=== PATIENT | male | born 1955 | race Caucasian/White ===

== ENCOUNTER 2016-05-03 15:50 | Emergency (ER) | payer OTHER ==
[2016-05-03 16:32] VITALS: TEMP 98.7; BMI 40.1
--- NOTE | 2016-05-03 16:34 | PDOC ---
Rapid Medical Evaluation Chief Complaint: Pain, Acute Time Seen by Provider: 05/03/16 16:27 Medical Evaluation: Allergies Allergy/AdvReac Type Severity Reaction Status Date / Time Iodinated Contrast Media - Allergy Verified 12/07/15 03:21 Oral and [Iodinated Contrast Media - IV Dye] raw fruits/vegetables Allergy Intermediate Rash Uncoded 12/13/15 17:38 iv contrast dye Allergy Uncoded 12/07/15 03:21 05/03/16 16:28 sent from wound care for eval / and admission of right leg DVT per US today. Dr Quispe is waiting call. Was concerned about awakend with a jolt and worries about possible defib charge. Will obtain labs/ ekg/ cxrs - waits for eval in Main ER. VS 114/81- 95% on RA but supposed to be on 2LNC. , 05/03/16 16:34 p
[2016-05-03 17:17] LABS: MCH 30.2 pg (25.7-33.7); MCHC 32.9 g/dl (32.0-35.9); MEAN CELL VOLUME 91.8 fl (80-96); MEAN PLT VOLUME 10.3 fl (7.5-11.1); PLATELET COUNT 136 K/MM3 (134-434); RDW 16.7 % (11.9-15.9); WHITE BLOOD COUNT 7.8 K/mm3 (4.0-10.0)
[2016-05-03 17:34] LABS: INR 1.43 (0.82-1.09); PROTHROMBIN TIME (PATIENT) 15.8 SEC (9.98-11.88)
--- NOTE | 2016-05-03 17:40 | PDOC ---
History of Present Illness - General History Source: Patient, Family, Primary Care Provider Exam Limitations: No Limitations - History of Present Illness Initial Comments: 05/03/16 17:56 The patient is a 61 year old male presenting with family, with a significant past medical history of presumed lung CA, CHF, CKD, CVA, COPD, HTN, diabetes, HLD, fatty liver, anxiety and depression, who presents to the emergency department after being sent from wound care for evaluation and admission after a DVT in the right lower extremity was revealed via ultrasound today. The patient currently has ulcers in his lower extremities and edema. Being Treated with radiation therapy for stage 1 presumed lung CA without confirmed biopsy due to comorbidity. The patient denies chest pain, shortness of breath, headache and dizziness. Denies fever, chills, nausea, vomit, diarrhea and constipation. Allergies: IV dye, raw vegetables and fruits Past surgical history: Quadruple bypass Social history: Cigarette use (2 daily). No alcohol or drug use reported Vascular surgeon: Dr. Leonard Quispe <Angus Melgar - Last Filed: 05/03/16 18:42> <Ashvin Bynum - Last Filed: 05/03/16 19:01> - General Chief Complaint: Edema Stated Complaint: SOB Time Seen by Provider: 05/03/16 16:27 Past History <Angus Melgar - Last Filed: 05/03/16 18:42> - Past Medical History Asthma: Yes (SOB) Cardiac Disorders: Yes (chf, sudden ) CVA: Yes COPD: Yes CHF: Yes Diabetes: Yes Disorders: Yes (STONES) HTN: Yes Hypercholesterolemia: Yes Liver Disease: Yes (Fatty Liver) Psychiatric Problems: Yes (anxiety/depression) - Surgical History Cardiac Surgery: Yes (quad bypass) Orthopedic Surgery: Yes - Psycho/Social/Smoking Cessation Hx Anxiety: No Suicidal Ideation: No Smoking History: Current every day smoker Have you smoked in the past 12 months: Yes Number of Cigarettes Smoked Daily: 2 If you are a former smoker, when did you quit?: 2008 Information on smoking cessation initiated: No 'Breaking Loose' booklet given: 12/15/15 Hx Alcohol Use: No Drug/Substance Use Hx: No Substance Use Type: None Hx Substance Use Treatment: No <Ashvin Bynum - Last Filed: 05/03/16 19:01> - Past Medical History Allergies/Adverse Reactions: Allergies Allergy/AdvReac Type Severity Reaction Status Date / Time Iodinated Contrast Media - Allergy Verified 05/03/16 16:32 Oral and [Iodinated Contrast Media - IV Dye] raw fruits/vegetables Allergy Intermediate Rash Uncoded 05/03/16 16:32 iv contrast dye Allergy Uncoded 05/03/16 16:32 Home Medications: Ambulatory Orders Albuterol 2.5/Ipratropium 0.5 [Duoneb -] 1 neb NEB Q4H 05/09/15 Allopurinol [Zyloprim -] 100 mg PO BID 05/09/15 Aspirin [ASA -] 81 mg PO DAILY 05/09/15 Carvedilol [Coreg] 6.25 mg PO BID 05/09/15 Colchicine 0.6 mg PO ASDIR 05/09/15 Fluoxetine HCl [Prozac] 40 mg PO HS 05/09/15 Insulin Glargine,Hum.rec.anlog [Lantus (10mL VIAL) -] 70 units SQ AM 05/09/15 Insulin Regular [Novolin R Vial -] 15 unit SQ AC 05/09/15 Isosorbide Mononitrate [Imdur -] 30 mg PO ASDIR 05/09/15 Liraglutide [Victoza -] 1.8 mg SQ DAILY@0700 05/09/15 Lisinopril [Zestril] 5 mg PO DAILY 05/09/15 Tamsulosin HCl [Flomax -] 0.4 mg PO DAILY 05/09/15 Trazodone HCl [Desyrel -] 50 mg PO HS 05/09/15 Sennosides/Docusate Sodium [Pericolace -] 1 tablet PO BID tablet 05/14/15 Tiotropium [place] [Spiriva] 18 puff IH DAILY #1 inh 05/14/15 Lorazepam [Ativan] 0.5 tab PO HS 12/08/15 Insulin Sliding Scale [Novolog Vial Sliding Scale -] 1 vial SQ ACHS units 12/09 Torsemide [Demadex -] 100 mg PO DAILY tablet 12/10/15 Rivaroxaban [Xarelto -] 20 mg PO DAILY #30 tablet 05/03/16 Review of Systems - Review of Systems Able to Perform ROS?: Yes Comments:: 05/03/16 17:57 GENERAL/CONSTITUTIONAL: No fever or chills. No weakness. HEAD, EYES, EARS, NOSE AND THROAT: No change in vision. No ear pain or discharge. No sore throat. CARDIOVASCULAR: No chest pain or shortness of breath RESPIRATORY: No cough, wheezing, or hemoptysis. GASTROINTESTINAL: No nausea, vomiting, diarrhea or constipation. GENITOURINARY: No dysuria, frequency, or change in urination. MUSCULOSKELETAL: No joint or muscle swelling or pain. No neck or back pain. EXTREMITIES: +Bilateral lower extremity wounds/ulcers and edema. SKIN: No rash NEUROLOGIC: No headache, vertigo, loss of consciousness, or change in strength/ sensation. ENDOCRINE: No increased thirst. No abnormal weight change HEMATOLOGIC/LYMPHATIC: No anemia, easy bleeding, or history of blood clots. ALLERGIC/IMMUNOLOGIC: No hives or skin allergy. <Angus Melgar - Last Filed: 05/03/16 18:42> *Physical Exam - Vital Signs Last Vital Signs Temp Pulse Resp BP Pulse Ox 98.7 F 77 20 114/81 95 05/03/16 16:27 05/03/16 16:27 05/03/16 16:27 05/03/16 16:27 05/03/16 16:27 <Angus Melgar - Last Filed: 05/03/16 18:42> - Vital Signs Last Vital Signs Temp Pulse Resp BP Pulse Ox 98.7 F 77 20 114/81 95 05/03/16 16:27 05/03/16 16:27 05/03/16 16:27 05/03/16 16:27 05/03/16 16:27 - Physical Exam Comments: 05/03/16 18:56 EXAMINATION CONSTITUTIONAL: Awake and alert, morbidly obese; on supplemental O2 via nasal cannula; in no apparent distress HEAD: Normocephalic; atraumatic EYES: PERRL; EOM intact ENMT: External appears normal; normal oropharynx NECK: Supple; non-tender; no cervical lymphadenopathy CARD: Normal S1, S2; no murmurs, rubs, or gallops RESP: Normal chest excursion with respiration; breath sounds clear and equal bilaterally; no wheezes, rhonchi, or rales ABD: Soft, non-distended; non-tender; no palpable organomegaly, no palpable hernias EXT: Normal ROM in all four extremities;+ hyperpigmentation and ulceration to lower extremities bilaterally consistent with chronic venous insufficiency, + onychomycosis bilaterally; dorsalis pedis is +1 bilaterally; SKIN: Warm, dry, see above NEURO: ANO 3, moving all extremities symmetrically, <Ashvin Bynum - Last Filed: 05/03/16 19:01> ED Treatment Course - LABORATORY CBC & Chemistry Diagram: 05/03/16 16:51 05/03/16 16:51 - ADDITIONAL ORDERS Additional order review: Laboratory Results 05/03/16 16:51 INR 1.43 H 05/03/16 16:51 RBC 4.09 MCV 91.8 MCHC 32.9 RDW 16.7 H D MPV 10.3 Neutrophils % Y Lymphocytes % Y <Angus Melgar - Last Filed: 05/03/16 18:42> - LABORATORY CBC & Chemistry Diagram: 05/03/16 16:51 05/03/16 16:51 - ADDITIONAL ORDERS Additional order review: Laboratory Results 05/03/16 16:51 INR 1.43 H 05/03/16 16:51 RBC 4.09 MCV 91.8 MCHC 32.9 RDW 16.7 H D MPV 10.3 Neutrophils % Y Lymphocytes % Y <Ashvin Bynum - Last Filed: 05/03/16 19:01> Medical Decision Making - Medical Decision Making 05/03/16 17:58 Dr. Leonard Quispe was consulted regarding the patient at 5:53pm [phone] <Angus Melgar - Last Filed: 05/03/16 18:42> - Medical Decision Making 05/03/16 18:58 Patient is 61-year-old male with multiple comorbidities who was diagnosed with a right mid calf DVT. In the ER, patient is awake and alert, in no distress. Given multiple comorbidities and presumptive stage I lung cancer, patient will require anticoagulation treatment. Case discussed with Dr. Quispe who advises treatment with Xarelto. Patient's BUN and creatinine appear slightly increased from baseline likely due to increased dose of Lasix prescribed by nephrology. Urinalysis also reveals +3 leukocytes, but is noted to be nitrite negative at this time and patient denies any symptomatology of UTI. Due to lower extremity dressings, patient has not been able to shower and i Suspect contamination of the urine specimen. Will discharge patient with oral anticoagulants with outpatient follow-up as needed. Risk and benefit of anticoagulation therapy has been discussed and patient expressed understanding. CMP reveals hyperglycemia but no evidence of increased anion gap. We'll administer subcutaneous and swollen and will discharge. <Ashvin Bynum - Last Filed: 05/03/16 19:01> *DC/Admit/Observation/Transfer - Attestations Scribe Attestion: 05/03/16 17:58 Documentation prepared by Angus Melgar, acting as medical logistics specialist for Ashvin Bynum MD <Angus Melgar - Last Filed: 05/03/16 18:42> <Ashvin Bynum - Last Filed: 05/03/16 19:01> Diagnosis at time of Disposition: Hyperglycemia Deep venous thrombosis Qualifiers: DVT location: lower extremity Affected thrombotic vein of extremity: unspecified vein of extremity Laterality: right Chronicity: acute Qualified Code (s): I82.401 - Acute embolism and thrombosis of unspecified deep veins of right lower extremity - Discharge Dispostion Disposition: HOME Condition at time of disposition: Stable - Prescriptions Prescriptions: Rivaroxaban [Xarelto -] 20 mg PO DAILY #30 tablet - Referrals Referrals: Jammie Mendez MD [Staff Physician] - - Patient Instructions Printed Discharge Instructions: DI for Deep Vein Thrombosis, DI for Hyperglycemia -- Adult
[2016-05-03 17:57] LABS: ALBUMIN 3.2 g/dl (3.4-5.0); CALCIUM 8.5 mg/dL (8.5-10.1); CREATININE 2.3 mg/dL (0.7-1.3)
[2016-05-03] MEDS ORDERED: RIVAROXABAN 20 MG TABLET PO ONE (17:58)
[2016-05-03 17:59] LABS: BILIRUBIN,TOTAL 0.7 mg/dL (0.2-1.0); TOT PROT 7.1 g/dl (6.4-8.2)
[2016-05-03 18:01] LABS: URINE APPEARANCE TURBID; URINE BILIRUBIN NEGATIVE (NEGATIVE); URINE COLOR YELLOW; URINE GLUCOSE (UA) NEGATIVE (NEGATIVE); URINE KETONE NEGATIVE (NEGATIVE); URINE NITRITE NEGATIVE (NEGATIVE); URINE PROTEIN NEGATIVE (NEGATIVE); URINE UROBILINOGEN NEGATIVE E.U./dl (0.2-1.0)
[2016-05-03 18:11] LABS: URINE BLOOD 1+ (NEGATIVE); URINE LEUK ESTERASE 3+ (NEGATIVE)
[2016-05-03] MEDS ORDERED: INSULIN REGULAR HUMAN 100 UNITS/ML *VIAL SQ ONE (18:39)
[2016-05-03] MEDS ORDERED: INSULIN NPH 100 UNITS/ML *VIAL ONE (18:47)
[2016-05-03 19:02] VITALS: BP 137/87; PULSE 67
[2016-05-03 19:50] LABS: PLATELET ESTIMATE ADEQUATE (NORMAL)
[2016-05-03 19:51] LABS: URINE BACTERIA MODERATE /hpf (NONE SEEN); URINE RBC 5 /hpf (0-3); URINE WBC 574 /hpf (3-5)
--- NOTE | 2016-05-04 17:09 | EKG ---
Test Reason : Blood Pressure : / mmHG Vent. Rate : 078 BPM Atrial Rate : 078 BPM P-R Int : 204 ms QRS Dur : 138 ms QT Int : 450 ms P-R-T Axes : 061 162 087 degrees QTc Int : 513 ms POOR DATA QUALITY, INTERPRETATION MAY BE ADVERSELY AFFECTED NORMAL SINUS RHYTHM POSSIBLE LEFT ATRIAL ENLARGEMENT RIGHT BUNDLE BRANCH BLOCK ANTEROLATERAL INFARCT (CITED ON OR BEFORE 07-DEC-2015) ABNORMAL ECG WHEN COMPARED WITH ECG OF 10-DEC-2015 01:07, PREMATURE VENTRICULAR COMPLEXES ARE NO LONGER PRESENT QUESTIONABLE CHANGE IN INITIAL FORCES OF LATERAL LEADS T WAVE INVERSION LESS EVIDENT IN ANTERIOR LEADS NONSPECIFIC T WAVE ABNORMALITY, WORSE IN LATERAL LEADS Confirmed by SHABBIR KHAN MD ([id number]) on 05/04/2016 5:08:33 PM Referred By: Confirmed By:SHABBIR KHAN MD
== END 2016-05-03 19:02 | disposition home or self-care (01) ==
LOC: JER 15:50
PROC: 3E013VG Introduction of Insulin into Subcutaneous Tissue, Percutaneous Approach (ICD-10-PCS; principal; 2016-05-03)
DX: I82.401 Acute embolism and thrombosis of unspecified deep veins of right lower extremity (principal); J45.909 Unspecified asthma, uncomplicated; R06.02 Shortness of breath; J44.9 Chronic obstructive pulmonary disease, unspecified; I50.9 Heart failure, unspecified; Z95.1 Presence of aortocoronary bypass graft; E11.9 Type 2 diabetes mellitus without complications; K76.0 Fatty (change of) liver, not elsewhere classified; F17.210 Nicotine dependence, cigarettes, uncomplicated
CPT/HCPCS: 36415; 80053; 81003; 81015; 85025; 85610; 93005; 93010; 96372; 99282-25

== ENCOUNTER 2016-05-09 15:52 | Observation (INO) | payer OTHER ==
[2016-05-09 16:29] VITALS: BMI 39.7
--- NOTE | 2016-05-09 16:37 | PDOC ---
History of Present Illness - General History Source: Patient Exam Limitations: No Limitations - History of Present Illness Initial Comments: 05/09/16 16:43 Patient is a 61 year old male presenting with family, with a significant past medical history of lung CA (on radiation, last course is ), CHF ( pacemaker in place), CKD, CVA, COPD (on O2 2L at home), HTN, diabetes, HLD, fatty liver, anxiety and depression who presents to the ED via EMS accompanied by with complaint of SOB. Patient states that he has been coughing up blood since yesterday and his PMD prompted him to presents to the ED. He notes that he coughed up blood 3 times today. He notes that Dr. Leonard Quispe placed him on course of Keflex. He denies fever, chills, nausea, vomiting, diarrhea or constipation. PMH: lung CA (on radiation, last course is ), CHF (pacemaker in place), CKD, CVA, COPD (on O2 2L at home), HTN, diabetes, HLD, fatty liver, anxiety and depression PSH: Quadruple bypass and pacemaker Social history: smokes 3 packs a month (smoker for 40 years) <Romi Chaparro - Last Filed: 05/09/16 16:43> <Leigha Ramirez - Last Filed: 05/09/16 20:44> - General Chief Complaint: Shortness of Breath Stated Complaint: Shortness of Breath Past History <Romi Chaparro - Last Filed: 05/09/16 16:43> - Past Medical History Asthma: Yes (SOB) Cardiac Disorders: Yes (chf, sudden ) CVA: Yes COPD: Yes CHF: Yes Diabetes: Yes Disorders: Yes (STONES) HTN: Yes Hypercholesterolemia: Yes Liver Disease: Yes (Fatty Liver) Psychiatric Problems: Yes (anxiety/depression) - Surgical History Cardiac Surgery: Yes (quad bypass) Orthopedic Surgery: Yes - Psycho/Social/Smoking Cessation Hx Anxiety: No Suicidal Ideation: No Smoking History: Never smoked Have you smoked in the past 12 months: Yes Number of Cigarettes Smoked Daily: 2 If you are a former smoker, when did you quit?: 2008 'Breaking Loose' booklet given: 12/15/15 Hx Alcohol Use: No Drug/Substance Use Hx: No Substance Use Type: None Hx Substance Use Treatment: No <Leigha Ramirez - Last Filed: 05/09/16 20:44> - Past Medical History Allergies/Adverse Reactions: Allergies Allergy/AdvReac Type Severity Reaction Status Date / Time Iodinated Contrast Media - Allergy Verified 05/09/16 16:29 Oral and [Iodinated Contrast Media - IV Dye] raw fruits/vegetables Allergy Intermediate Rash Uncoded 05/09/16 16:29 iv contrast dye Allergy Uncoded 05/09/16 16:29 Home Medications: Ambulatory Orders Albuterol 2.5/Ipratropium 0.5 [Duoneb -] 1 neb NEB Q4H 05/09/15 Allopurinol [Zyloprim -] 100 mg PO DAILY 05/09/15 Aspirin [ASA -] 81 mg PO DAILY 05/09/15 Carvedilol [Coreg] 6.25 mg PO BID 05/09/15 Colchicine 0.6 mg PO ASDIR 05/09/15 Fluoxetine HCl [Prozac] 40 mg PO HS 05/09/15 Insulin Glargine,Hum.rec.anlog [Lantus (10mL VIAL) -] 70 units SQ AM 05/09/15 Liraglutide [Victoza -] 1.8 mg SQ DAILY@0700 05/09/15 Lisinopril [Zestril] 5 mg PO DAILY 05/09/15 Tamsulosin HCl [Flomax -] 0.4 mg PO DAILY 05/09/15 Trazodone HCl [Desyrel -] 50 mg PO BID 05/09/15 Sennosides/Docusate Sodium [Pericolace -] 1 tablet PO BID tablet 05/14/15 Lorazepam [Ativan] 0.5 tab PO HS 12/08/15 Cephalexin [Keflex] 500 mg PO QID #28 capsule MDD 4 05/08/16 Rivaroxaban [Xarelto -] 20 mg PO DAILY 05/08/16 Atorvastatin Calcium 40 mg PO HS 05/09/16 Cholecalciferol (Vitamin D3) [Vitamin D3 -] 1,000 unit PO DAILY 05/09/16 Clotrimazole [Lotrimin 1% Cream -] 1 applic TP BID 05/09/16 Dexamethasone 4 mg PO 05/09/16 Famotidine/Ca Carb/Mag Hydrox [Pepcid Complete Tablet Chew] 1 each PO DAILY Ferrous Sulfate 325 mg PO DAILY 05/09/16 Gabapentin 100 mg PO DAILY 05/09/16 Insulin Regular, Human [Humulin R U-500 Kwikpen] 15 unit SQ TID 05/09/16 Silver Sulfadiazine 1% Top Cr [Silvadene -] 1 applic TP DAILY 05/09/16 Torsemide [Demadex -] 200 mg PO DAILY 05/09/16 Review of Systems - Review of Systems Able to Perform ROS?: Yes Comments:: 05/09/16 16:44 CONSTITUTIONAL: Absent: fever, chills, diaphoresis, generalized weakness, malaise, loss of appetite HEENT: Absent: rhinorrhea, nasal congestion, throat pain, throat swelling, difficulty swallowing, mouth swelling, ear pain, eye pain, visual Changes CARDIOVASCULAR: Absent: chest pain, syncope, palpitations, irregular heart rate, lightheadedness , peripheral edema RESPIRATORY: Present: cough, shortness of breath Absent: dyspnea with exertion, orthopnea, wheezing, stridor, hemoptysis GASTROINTESTINAL: Absent: abdominal pain, abdominal distension, nausea, vomiting, diarrhea, constipation, melena, hematochezia GENITOURINARY: Absent: dysuria, frequency, urgency, hesitancy, hematuria, flank pain, genital pain MUSCULOSKELETAL: Absent: myalgia, arthralgia, joint swelling SKIN: Absent: rash, itching, pallor HEMATOLOGIC/IMMUNOLOGIC: Absent: easy bleeding, easy bruising, lymphadenopathy, frequent infections ENDOCRINE: Absent: unexplained weight gain, unexplained weight loss, heat intolerance, cold intolerance NEUROLOGIC: Absent: headache, focal weakness or paresthesias, dizziness, unsteady gait, seizure, mental status changes, bladder or bowel incontinence PSYCHIATRIC: Absent: anxiety, depression, suicidal or homicidal ideation, hallucinations. <Romi Chaparro - Last Filed: 05/09/16 16:43> *Physical Exam - Vital Signs Last Vital Signs Temp Pulse Resp BP Pulse Ox 97.7 F 78 19 108/85 100 05/09/16 16:28 05/09/16 16:28 05/09/16 16:28 05/09/16 16:28 05/09/16 16:28 - Physical Exam Comments: 05/09/16 16:44 GENERAL: Well developed, well nourished. Awake and alert. No acute distress. HEENT: Normocephalic, atraumatic. PERRLA, EOMI. No conjunctival pallor. Sclera are non- icteric. Moist mucous membranes. Oropharynx is clear. NECK: Supple. Full ROM. No JVD. Carotid pulses 2+ and symmetric, without bruits. No thyromegaly. No lymphadenopathy. CARDIOVASCULAR: Regular rate and rhythm. No murmurs, rubs, or gallops. Distal pulses are 2+ and symmetric. PULMONARY: +fine bibasilar rales. No wheezing or rhonchi. ABDOMINAL: Soft. Non-tender. Non-distended. No rebound or guarding. No organomegaly. Normoactive bowel sounds. MUSCULOSKELETAL Normal range of motion at all joints. No bony deformities or tenderness. No CVA tenderness. EXTREMITIES: +chronic venous stasis. No cyanosis. No clubbing. No edema. No calf tenderness. SKIN: Warm and dry. Normal capillary refill. No rashes. No jaundice. NEUROLOGICAL: Alert, awake, appropriate. Cranial nerves 2-12 intact. No deficits to light touch and temperature in face, upper extremities and lower extremities. No motor deficits in the in face, upper extremities and lower extremities. Normoreflexic in the upper and lower extremities. Normal speech. PSYCHIATRIC: Cooperative. Good eye contact. Appropriate mood and affect. <Romi Chaparro - Last Filed: 05/09/16 16:43> - Vital Signs Last Vital Signs Temp Pulse Resp BP Pulse Ox 97.7 F 78 19 108/85 100 05/09/16 16:28 05/09/16 16:28 05/09/16 16:28 05/09/16 16:28 05/09/16 16:28 <Leigha Ramirez - Last Filed: 05/09/16 20:44> ED Treatment Course - LABORATORY CBC & Chemistry Diagram: 05/09/16 17:20 05/09/16 17:20 <Leigha Ramirez - Last Filed: 05/09/16 20:44> Medical Decision Making - Medical Decision Making 05/09/16 17:15 61 yo male BIBA for hemoptysis -pt is undergoing radiation treatment for growing lung lesion ,presumed malignancy but never able to obtain biopsy.Last radiation treatment done on Sunday -PMH copd,chf,lung lesion -reviewed labs,no anemia.normal plat -no fever,no further hemoptysis seen in the emergency department Dr Castillo requested OBS med/surg -cse discussed w Fariba 05/09/16 20:34 <Leigha Ramirez - Last Filed: 05/09/16 20:44> *DC/Admit/Observation/Transfer - Attestations Scribe Attestion: 05/09/16 16:45 Documentation prepared by ISAAC Mosquera, acting as medical clerk for Leigha Ramirez MD. <Romi Chaparro - Last Filed: 05/09/16 16:43> - Discharge Dispostion Admit: Yes <Leigha Ramirez - Last Filed: 05/09/16 20:44> Diagnosis at time of Disposition: Hemoptysis, Lung nodule - Discharge Dispostion Condition at time of disposition: Stable - Referrals Referrals: STAFF,NOT ON [Primary Care Provider] -
[2016-05-09] MEDS ORDERED: methylPREDNISolone NA SUCC 125 MG/2 ML VIAL IVPB ONE (16:38)
[2016-05-09] MEDS ORDERED: ALBUTEROL SO4 2.5/IPRATROPIUM 0.5 INH SOL 3 ML VIAL.NEB. NEB ONE ×2 (16:39→16:59)
[2016-05-09] MEDS ORDERED: methylPREDNISolone NA SUCC 125 MG/2 ML VIAL ONE (16:59)
[2016-05-09 17:57] LABS: BASOPHIL 0.4 % (0-2.0); MCHC 32.8 g/dl (32.0-35.9); MEAN CELL VOLUME 91.5 fl (80-96); MEAN PLT VOLUME 10.8 fl (7.5-11.1); NEUTROPHILS 81.2 % (42.8-82.8); PLATELET COUNT 168 K/MM3 (134-434); RDW 17.1 % (11.9-15.9)
[2016-05-09 18:27] LABS: TROPONIN I 0.06 ng/ml (0.00-0.05)
[2016-05-09 18:29] LABS: INR 2.12 (0.82-1.09); PROTHROMBIN TIME (PATIENT) 23.7 SEC (9.98-11.88)
[2016-05-09 18:48] LABS: ALBUMIN 3.2 g/dl (3.4-5.0); CALCIUM 8.4 mg/dL (8.5-10.1); CREATININE 2.2 mg/dL (0.7-1.3)
[2016-05-09 18:51] LABS: BILIRUBIN,TOTAL 1.3 mg/dL (0.2-1.0); TOT PROT 7.2 g/dl (6.4-8.2)
--- NOTE | 2016-05-09 20:57 | PN ---
<Manjinder Tan - Last Filed: 05/09/16 20:57> Teaching Attending Note Name of Resident: Melinda Carrillo ATTENDING PHYSICIAN STATEMENT I saw and evaluated the patient. I reviewed the resident's note and discussed the case with the resident. I agree with the resident's findings and plan as documented. SUBJECTIVE: OBJECTIVE: ASSESSMENT AND PLAN: <JeremiahOdalis - Last Filed: 05/10/16 05:06> Teaching Attending Note ATTENDING PHYSICIAN STATEMENT I saw and evaluated the patient. I reviewed the resident's note and discussed the case with the resident. I agree with the resident's findings and plan as documented. SUBJECTIVE: The patient is a 61 yo M with a PMHx of lung CA (on radiation, last course is ), CHF (pacemaker in place), CKD, CVA, COPD (on O2 2L at home), HTN, diabetes, HLD, fatty liver, anxiety and depression who presents with SOB and hemoptysis. States he coughed up blood 3x today. OBJECTIVE: Last Vital Signs Temp Pulse Resp BP Pulse Ox 97.7 F 78 19 108/85 98 05/09/16 16:28 05/09/16 16:28 05/09/16 16:28 05/09/16 16:28 05/09/16 18:09 GEN: NAD +Morbidly obese male resting in bed. +able to speak full sentences. HEENT: NCAT, PERRL CARD: RRR, S1 S2 RESP: CTAB +decreased breath sounds at the bases ABD: NT, BWS x4 EXT: - CC. + Bilateral leg wraps. +Unwilling to remove. 2+ pitting edema up to bilateral knees. CBCD WBC 8.0 K/mm3 (4.0-10.0) 05/09/16 17:20 RBC 4.13 M/mm3 (4.00-5.60) 05/09/16 17:20 Hgb 12.4 GM/dL (11.7-16.9) 05/09/16 17:20 Hct 37.8 % (35.4-49) 05/09/16 17:20 MCV 91.5 fl (80-96) 05/09/16 17:20 MCHC 32.8 g/dl (32.0-35.9) 05/09/16 17:20 RDW 17.1 % (11.9-15.9) H 05/09/16 17:20 Plt Count 168 K/MM3 (134-434) D 05/09/16 17:20 MPV 10.8 fl (7.5-11.1) 05/09/16 17:20 CMP Sodium 134 mmol/L (136-145) L 05/09/16 17:20 Potassium 3.8 mmol/L (3.5-5.1) 05/09/16 17:20 Chloride 92 mmol/L (98-107) L 05/09/16 17:20 Carbon Dioxide 31 mmol/L (21-32) 05/09/16 17:20 Anion Gap 11 (8-16) 05/09/16 17:20 BUN 54 mg/dL (7-18) H 05/09/16 17:20 Creatinine 2.2 mg/dL (0.7-1.3) H 05/09/16 17:20 Creat Clearance w eGFR 30.58 (>60) 05/09/16 17:20 Calcium 8.4 mg/dL (8.5-10.1) L 05/09/16 17:20 Total Bilirubin 1.3 mg/dL (0.2-1.0) H D 05/09/16 17:20 AST 29 U/L (15-37) 05/09/16 17:20 ALT 61 U/L (12-78) D 05/09/16 17:20 Alkaline Phosphatase 210 U/L (45-117) H 05/09/16 17:20 Total Protein 7.2 g/dl (6.4-8.2) 05/09/16 17:20 Albumin 3.2 g/dl (3.4-5.0) L 05/09/16 17:20 Imaging Chest Xray Impression: Mild venous congestion and minimal R pleural effusion. ASSESSMENT AND PLAN: The patient is a 61 yo M with a PMHx of lung CA (on radiation, last course is ), CHF (pacemaker in place), CKD, CVA, COPD (on O2 2L at home), HTN, diabetes, HLD, fatty liver, anxiety and depression who presents with hemoptysis. 1.)Hemoptysis -Wild hold Xeralto for now and observe for repeat hemoptysis -H&H stable -CBC Q8 -Repeat coags in AM -Consider IVC filter 2.) Hx of Lung CA -Currently undergoing radiation 3.) COPD -Continue home meds 4.) HTN -Continue home meds 5.) HLD -Continue home meds 6.) Diabetes -Fingersticks -RAISS -Continue Lantus if patient is able to tolerate PO in the AM and patients hemoptysis has subsided 7.) MARCIAL on CKD -Baseline creatinine 1.8 -Will hold CLAUDE inhibitor for now 8.) Acute on Chronic CHF exacerbation -Continue with torsemide in AM -Lasix 60 mg IV x1 9.) Hx of CVA -Continue with aspirin 10.) Bilateral Knee Wounds - Continue Keflex 11.) DVT -Hold Xarelto for now -Will consider IVC filter 12.) Bilateral Cellulitis - Was given Keflex by Dr. Quispe - Can continue As per Dr. Castillo's request, patient placed on Observation- Med Surg. Documentation prepared by Odalis Daniels, acting as director biomedical engineering for Manjinder Tan D.O.
[2016-05-09] MEDS ORDERED: PATIENT'S OWN MEDICATION (NON-FORMULARY) (Colchicine [Colchicine] 0.6 MG) PO SCH (22:00)
[2016-05-09] MEDS ORDERED: PATIENT'S OWN MEDICATION (NON-FORMULARY) (Famotidine/Ca Carb/Mag Hydrox [Pepcid Complete T PO SCH (22:00)
--- NOTE | 2016-05-09 22:17 | HP ---
CHIEF COMPLAINT: "Blood in sputum" PCP: Dr. Anna Acosta (Renal) Dr. Leonard Quispe HISTORY OF PRESENT ILLNESS: Patient is a 61 year old male presented to the ED with the chief complaints of ' blood in sputum'. A/c to the patient, he noticed blood in sputum today, 3 episodes of streaks of sputum production which was bright red in color. Hasn't had this episode in the past. Also mentions to have shortness of breath even at rest. Has a h/o COPD and is on home oxygen, uses it more than 18 hours/day. Cannot sleep in supine position because of shortness of breath, sleeps on a chair. Patient was recently diagnosed with lung cancer (stage 1, received 4 radiation, last one scheduled for tomorrow). Never had a biopsy of the lung because he is too unstable, his EF being 15 % as per the patient. Has decreased appetite since few months especially after the radiation. Patient states that he has noticed increasing girth of the abdomen. He is on Lasix 100mg BID. Has a h/o B/L lower extremity wound for which he has been seeing Dr. Quispe and goes to wound care center for dressing. He is on Keflex (as outpatient) due to cellulitis of b/l lower extremity. He was recently found to have Right lower extremity DVT for which he is on Xarelto 20mg Daily. Bowel habit normal. No blood in stool but noticed dark color stool one episode a couple of days ago. No urinary symptoms except for increased urination. NO blood in urine. Sleep disturbed since his illness got worse. ER course was notable for: (1) Afebrile; BUN-54; Creatinine 2.2, Creat.clear-30.58, F-rketdpcma-9.3; RBS- 487, normal AG, BNP-8487.56 (2) EKG: (3) Duoneb, IV Solumedrol Recent Travel: None PAST MEDICAL HISTORY: lung CA (on radiation, last course is ), CHF-EF-15 % (pacemaker in place, Defibrillator ), CKD, CVA, COPD (on O2 2L at home), HTN, diabetes, HLD, fatty liver, anxiety and depression, DVT PAST SURGICAL HISTORY: As mentioned above Social History: Smoking: Quit in 2008 and started smoking 6months ago-3packs/in a month Alcohol: Denies Drugs: Denies Family History: Not known Allergies Iodinated Contrast Media - Oral and [Iodinated Contrast Media - IV Dye] Allergy (Verified 05/09/16 16:29) raw fruits/vegetables Allergy (Intermediate, Uncoded 05/09/16 16:29) Rash CARROTS RASH iv contrast dye Allergy (Uncoded 05/09/16 16:29) HOME MEDICATIONS: Home Medications Medication Instructions Recorded Albuterol 2.5/Ipratropium 0.5 1 neb NEB Q4H 05/09/15 [Duoneb -] Allopurinol [Zyloprim -] 100 mg PO DAILY 05/09/15 Aspirin [ASA -] 81 mg PO DAILY 05/09/15 Carvedilol [Coreg] 6.25 mg PO BID 05/09/15 Colchicine 0.6 mg PO ASDIR 05/09/15 Fluoxetine HCl [Prozac] 40 mg PO HS 05/09/15 Insulin Glargine,Hum.rec.anlog 70 units SQ AM 05/09/15 [Lantus (10mL VIAL) -] Liraglutide [Victoza -] 1.8 mg SQ DAILY@0700 05/09/15 Lisinopril [Zestril] 5 mg PO DAILY 05/09/15 Tamsulosin HCl [Flomax -] 0.4 mg PO DAILY 05/09/15 Trazodone HCl [Desyrel -] 50 mg PO BID 05/09/15 Sennosides/Docusate Sodium 1 tablet PO BID tablet 05/14/15 [Pericolace -] Lorazepam [Ativan] 0.5 tab PO HS 12/08/15 Cephalexin [Keflex] 500 mg PO QID #28 capsule MDD 4 05/08/16 Rivaroxaban [Xarelto -] 20 mg PO DAILY 05/08/16 Atorvastatin Calcium 40 mg PO HS 05/09/16 Cholecalciferol (Vitamin D3) 1,000 unit PO DAILY 05/09/16 [Vitamin D3 -] Clotrimazole [Lotrimin 1% Cream -] 1 applic TP BID 05/09/16 Dexamethasone 4 mg PO 05/09/16 Famotidine/Ca Carb/Mag Hydrox 1 each PO DAILY 05/09/16 [Pepcid Complete Tablet Chew] Ferrous Sulfate 325 mg PO DAILY 05/09/16 Gabapentin 100 mg PO DAILY 05/09/16 Insulin Regular, Human [Humulin R 15 unit SQ TID 05/09/16 U-500 Kwikpen] Silver Sulfadiazine 1% Top Cr 1 applic TP DAILY 05/09/16 [Silvadene -] Torsemide [Demadex -] 200 mg PO DAILY 05/09/16 REVIEW OF SYSTEMS CONSTITUTIONAL: Present: loss of appetite Absent: fever, chills, diaphoresis, generalized weakness, malaise, weight change HEENT: Absent: rhinorrhea, nasal congestion, throat pain, throat swelling, difficulty swallowing, mouth swelling, ear pain, eye pain, visual changes CARDIOVASCULAR: Absent: chest pain, syncope, palpitations, irregular heart rate, lightheadedness , peripheral edema RESPIRATORY: Present: Hemoptysis ,cough, shortness of breath, dyspnea with exertion, Absent: orthopnea, wheezing, stridor GASTROINTESTINAL: Present: Abdominal distention Absent: abdominal pain, abdominal distension, nausea, vomiting, diarrhea, constipation, melena, hematochezia GENITOURINARY: Present- Increased frequency Absent: dysuria, urgency, hesitancy, hematuria, flank pain, genital pain MUSCULOSKELETAL: Absent: myalgia, arthralgia, joint swelling, back pain, neck pain SKIN: Absent: rash, itching, pallor HEMATOLOGIC/IMMUNOLOGIC: Absent: easy bleeding, easy bruising, lymphadenopathy, frequent infections ENDOCRINE: Absent: unexplained weight gain, unexplained weight loss, heat intolerance, cold intolerance NEUROLOGIC: Absent: headache, focal weakness or paresthesias, dizziness, unsteady gait, seizure, mental status changes, bladder or bowel incontinence PSYCHIATRIC: Absent: anxiety, depression, suicidal or homicidal ideation, hallucinations. PHYSICAL EXAMINATION Vital Signs - 24 hr 05/09/16 05/09/16 16:28 18:09 Temperature 97.7 F Pulse Rate 78 Respiratory 19 Rate Blood Pressure 108/85 O2 Sat by Pulse 100 98 Oximetry (%) GENERAL: Morbidly obese male, Awake, alert, and fully oriented, in no acute distress. HEAD: Normal with no signs of trauma. EYES: EOM intact, no pallor or icterus EARS, NOSE, THROAT: Ears normal. Moist mucous membranes. NECK: Supple LUNGS: Bilateral breaths sounds decreased. No wheezes, and no crackles. No accessory muscle use. HEART: Regular rate and rhythm, normal S1 and S2 without murmur, rub or gallop. ABDOMEN: Soft, nontender, distended, tense+ normoactive bowel sounds, no guarding, no rebound, no masses. No hepatomegaly or splenomegaly. MUSCULOSKELETAL: Normal range of motion at all joints. No bony deformities or tenderness. No CVA tenderness. UPPER EXTREMITIES: 2+ pulses, warm, well-perfused. No cyanosis. No clubbing. No peripheral edema. LOWER EXTREMITIES: B/L dressing applied-no soakage, patient refused to open the dressing , 2+ pulses, warm, well-perfused. No calf tenderness. B/L pitting edema up to the knees NEUROLOGICAL: Cranial nerves II-XII intact. Normal speech. Gait not observed. PSYCHIATRIC: Cooperative. Good eye contact. Appropriate mood and affect. SKIN: Warm, dry, normal turgor, no rashes or lesions noted, normal capillary refill. Laboratory Results - last 24 hr 05/09/16 05/09/16 05/09/16 16:43 16:56 16:56 WBC RBC Hgb Hct MCV MCHC RDW Plt Count MPV Neutrophils % Lymphocytes % Monocytes % Eosinophils % Basophils % INR 2.12 H D Sodium Potassium Chloride Carbon Dioxide Anion Gap BUN Creatinine Creat Clearance w eGFR Random Glucose Calcium Total Bilirubin AST ALT Alkaline Phosphatase Creatine Kinase 111 Troponin I 0.06 H B-Natriuretic Peptide 8487.52 H Total Protein Albumin 05/09/16 05/09/16 17:20 17:20 WBC 8.0 RBC 4.13 Hgb 12.4 Hct 37.8 MCV 91.5 MCHC 32.8 RDW 17.1 H Plt Count 168 D MPV 10.8 Neutrophils % 81.2 Lymphocytes % 7.9 L D Monocytes % 9.5 D Eosinophils % 1.0 Basophils % 0.4 INR Sodium 134 L Potassium 3.8 Chloride 92 L Carbon Dioxide 31 Anion Gap 11 BUN 54 H Creatinine 2.2 H Creat Clearance w eGFR 30.58 Random Glucose 487 H* D Calcium 8.4 L Total Bilirubin 1.3 H D AST 29 ALT 61 D Alkaline Phosphatase 210 H Creatine Kinase Troponin I B-Natriuretic Peptide Total Protein 7.2 Albumin 3.2 L Chest Xray Impression: Mild venous congestion and minimal R pleural effusion. ASSESSMENT/PLAN: Patient is a 61 year old male with significant past medical history of lung CA (on radiation, last course is ), CHF-EF-15% (pacemaker in place, Defibrillator ), CKD, CVA, COPD (on O2 2L at home), HTN, diabetes, HLD, fatty liver, anxiety and depression presented to the ED with the chief complaints of 'blood in sputum'. # Hemoptysis-likely origin from the lung Patient presented with 3 episodes of hemoptysis today, increasing SOB. On arrival, Afebrile; Hemodynamically stable In the ED, patient received Duoneb, IV Solumedrol Placed on observation in Tele as per Dr. Castillo Hold Xarelto Repeat CBC Coags tomorrow in the am # Newly diagnosed DVT on right lower extremity Hold Xarelto due to Hemoptysis Patient not on any anticoagulation due to risk of bleeding No SCDs placed since he has b/l wounds Encourage ambulation Would consider IVC filter placement # Lung cancer (on radiation, last course is ) Next radiation tomorrow # COPD on home oxygen (uses >18 hrs/day) Nasal oxygen 2L # Uncontrolled Diabetes Mellitus RBS-487 with normal AG on arrival Overnight, maximum RBS was 658 with normal anion gap 10 units of regular Insulin given in the ED Ovenight patient received 10units regular insulin followed by 12U Novolog sq and 14 U of Novolog Since Anion gap was closed, Insulin drip was not started Finger stick glucose monitoring Insulin sliding scale Would consider starting on Long acting Insulin Hold Insulin Humulin R as he is in sliding scale HbA1c pending. Diabetic diet # Fluid overload-likely due to CHF BNP -8487.56 Echo done in 12/07/15- Left ventricular systolic function is severely reduced. There is severe global hypokinesis of the left ventricle. Mild- mod MR< Mild TR, moderate pul hypertension. IV Lasix 60mg stat Daily weight Strict I's and O's Fluid restriction # Acute on chronic renal failure BUN-54; Creatinine 2.2, Creat.clear-30.58, Baseline creatinine 1.9 in [address] Acosta consult placed # B/L lower extremity wounds- Cellulitis Has been following with Dr. Quispe and was taking keflex for cellulitis Continue Keflex 500mg PO QID # CVA-no residual neurological defecits Continue aspirin 81 mg # Gout-not in acute flare Continue allopurinol and colchicine # Hyperlipidemia Continue # Hypertension Hold # FEN Not on IV fluids Electrolytes to be repeated in am Diabetic diet # Prophylaxis For DVT- Not on any anticoagulation due to risk of bleeding. Not on Scd's since he has b/l wounds. Encourage ambulation. For GI- Not indicated # Code Status- Full Code # Dispo: Observation in Med-surg. Duration of stay unknown. Illness, Investigation and Plan of care explained to the patient. He verbalized understanding. Case seen and discussed with Britney. Visit type - Emergency Visit Emergency Visit: Yes ED Registration Date: 05/09/16 Care time: The patient presented to the Emergency Department on the above date and was hospitalized for further evaluation of their emergent condition. - New Patient This patient is new to me today: Yes Date on this admission: 05/09/16 - Critical Care Critical Care patient: No
[2016-05-09] MEDS ORDERED: FUROSEMIDE 40 MG/4 ML INJECTABLE VIAL IVPB ONE (22:43)
[2016-05-09] MEDS ORDERED: INSULIN REGULAR HUMAN 100 UNITS/ML *VIAL ONE (23:16)
[2016-05-09] MEDS: INSULIN SLIDING SCALE (NOVOLOG) 1 VIAL SQ SCH (23:22)
[2016-05-09] MEDS ORDERED: INSULIN REGULAR HUMAN 100 UNITS/ML *VIAL IVPUSH ONE (23:26)
[2016-05-09] MEDS ORDERED: CEPHALEXIN MONOHYDRATE 250 MG CAPSULE (FP) ONE (23:26)
[2016-05-09] MEDS: CEPHALEXIN MONOHYDRATE 500 MG CAPSULE (UD) PO SCH (23:29)
[2016-05-09] MEDS: ALBUTEROL SO4 2.5/IPRATROPIUM 0.5 INH SOL 3 ML VIAL.NEB. NEB SCH (23:30)
[2016-05-10] MEDS: CEPHALEXIN MONOHYDRATE 500 MG CAPSULE (UD) PO SCH ×4 (00:40→18:40)
[2016-05-10 02:30] LABS: CALCIUM 8.3 mg/dL (8.5-10.1); CREATININE 2.1 mg/dL (0.7-1.3)
[2016-05-10] MEDS ORDERED: INSULIN (NOVOLOG) ASPART 100 UNITS/ML 10ML VIAL SQ ONE ×3 (02:37→06:42)
[2016-05-10] MEDS: hydrALAZINE HCL 25 MG TABLET (FP) PO SCH ×3 (06:01→22:53)
[2016-05-10] MEDS: ASPIRIN 81 MG CHEWABLE TABLETS PO SCH ×2 (06:09→10:30)
[2016-05-10] MEDS: LORazepam 0.5 MG TABLET PO SCH ×2 (06:09→22:46)
[2016-05-10] MEDS: CARVEDILOL 6.25 MG TABLET (FP) PO SCH ×3 (06:10→22:46)
[2016-05-10] MEDS: traZODone HCL 50 MG TABLET (FP) PO SCH ×3 (06:10→22:46)
[2016-05-10] MEDS: TORSEMIDE 100 MG TABLET PO SCH ×2 (06:10→10:31)
[2016-05-10] MEDS: TAMSULOSIN HCL 0.4 MG CAP.ER.24H (FP) PO SCH ×2 (06:11→08:48)
[2016-05-10] MEDS: FERROUS SO4 325 MG TABLET (FP) PO SCH ×2 (06:11→10:30)
[2016-05-10] MEDS: GABAPENTIN 100 MG CAPSULE (FP) PO SCH ×2 (06:15→10:30)
[2016-05-10] MEDS: SENNOSIDES/DOCUSATE COMBO (SENNA PLUS) TABLET (UD) PO SCH ×3 (06:15→22:55)
[2016-05-10] MEDS: ATORVASTATIN CA 40 MG TABLET (FP) PO SCH ×2 (06:15→22:49)
[2016-05-10] MEDS: FLUoxetine HCL 20 MG CAPSULE (FP) PO SCH ×2 (06:16→22:49)
[2016-05-10] MEDS: CHOLECALCIFEROL (VITAMIN D3) 1,000 UNIT TABLET (FP) PO SCH ×2 (06:16→10:30)
[2016-05-10] MEDS: ALLOPURINOL 100 MG TABLET (FP) PO SCH ×2 (06:16→10:30)
[2016-05-10] MEDS: SILVER SULFADIAZINE 1% TOP CREAM 50 GM JAR TP SCH ×2 (06:17→10:29)
[2016-05-10] MEDS: CLOTRIMAZOLE 1% CREAM 15 GM TUBE TP SCH ×3 (06:17→22:00)
[2016-05-10] MEDS: LIRAGLUTIDE 0.6 MG/0.1 ML PEN.INJCTR SQ SCH (06:23)
[2016-05-10] MEDS: ISOSORBIDE DINITRATE 20 MG TABLET (FP) PO SCH ×3 (06:24→22:49)
[2016-05-10] MEDS ORDERED: INSULIN (NOVOLOG) ASPART 100 UNITS/ML 10ML VIAL ONE ×3 (07:05→19:55)
[2016-05-10] MEDS: INSULIN SLIDING SCALE (NOVOLOG) 1 VIAL SQ SCH ×5 (07:09→22:42)
[2016-05-10] MEDS ORDERED: PT OWN MED DRAWER 7, Y5N ONE ×3 (07:20→13:03)
[2016-05-10] MEDS: ALBUTEROL SO4 2.5/IPRATROPIUM 0.5 INH SOL 3 ML VIAL.NEB. NEB SCH ×5 (07:27→22:21)
[2016-05-10 08:17] LABS: BASOPHIL 0.1 % (0-2.0); EOSINOPHIL 0.1 % (0-4.5); MCHC 32.4 g/dl (32.0-35.9); MEAN CELL VOLUME 92.7 fl (80-96); MEAN PLT VOLUME 10.8 fl (7.5-11.1); NEUTROPHILS 94.7 % (42.8-82.8); PLATELET COUNT 124 K/MM3 (134-434); RDW 16.9 % (11.9-15.9); WHITE BLOOD COUNT 7.3 K/mm3 (4.0-10.0)
[2016-05-10 08:23] LABS: INR 1.55 (0.82-1.09); PROTHROMBIN TIME (PATIENT) 17.2 SEC (9.98-11.88)
[2016-05-10 08:25] LABS: ACTIVATED PTT 27.2 SECONDS (26.9-34.4)
[2016-05-10 08:29] LABS: CHOLESTEROL 85 mg/dL (50-200)
[2016-05-10 08:31] LABS: ALBUMIN 3.1 g/dl (3.4-5.0); CALCIUM 8.6 mg/dL (8.5-10.1); LDL CHOLESTEROL (ONLY SJRH) 44 mg/dL (5-100); MAGNESIUM 2.3 mg/dL (1.8-2.4)
[2016-05-10 08:35] LABS: CREATININE 2.1 mg/dL (0.7-1.3); TOT PROT 6.8 g/dl (6.4-8.2)
[2016-05-10] MEDS: INSULIN DETEMIR 100 UNITS/ML MDV SQ SCH ×2 (08:47→16:16)
--- NOTE | 2016-05-10 09:10 | CON.PULM ---
Consult Consult Specialty:: PULMONARY Referred by:: PMWendy Reason for Consultation:: HEMOPTYSIS - History of Present Illness Chief Complaint: BLOOD STREAKED SPUTUM SINCE STARTING NOAC FOR DVT History of Present Illness: Patient is a 61 year old male presenting with family, with a significant past medical history of undocumented lung CA( bx's attempted which were unsuccessful) (on radiation, last course is ), CHF (pacemaker in place) , CKD, CVA, COPD (on O2 2L at home), HTN, diabetes, HLD, fatty liver, anxiety and depression who presents to the ED via EMS accompanied by with complaint of SOB. Patient states that he has been coughing up blood since yesterday and his PMD prompted him to presents to the ED. He notes that he coughed up blood 3 times today. He notes that Dr. Leonard Quispe placed him on course of anticoagulation for a dvt right leg. He denies fever, chills, nausea, vomiting, diarrhea or constipation. 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: CVA Cardio/Vascular: Yes: CAD, CHF (s/p defibrillator ), HTN, Other (Ischemic cardiomyopathy) Pulmonary: Yes: Cancer (undocumented cell type), COPD Renal/: Yes: Renal Failure Infectious Disease: Yes: Other (Chronic lower extremity bilateral cellulitis ) Endocrine: Yes: Diabetes Mellitus - Past Surgical History Past Surgical History: Yes: AICD, CABG - Alcohol/Substance Use Hx Alcohol Use: No History of Substance Use: reports: None - Smoking History Smoking history: Current every day smoker Have you smoked in the past 12 months: Yes Aproximately how many cigarettes per day: 3 If you are a former smoker, when did you quit?: 2008 - Social History Usual Living Arrangement: With Spouse 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 Place of : [facility] History of Recent Travel: No Home Medications - Allergies Allergies/Adverse Reactions: Allergies Allergy/AdvReac Type Severity Reaction Status Date / Time Iodinated Contrast Media - Allergy Verified 05/09/16 16:29 Oral and [Iodinated Contrast Media - IV Dye] raw fruits/vegetables Allergy Intermediate Rash Uncoded 05/09/16 16:29 iv contrast dye Allergy Uncoded 05/09/16 16:29 - Home Medications Home Medications: Ambulatory Orders Albuterol 2.5/Ipratropium 0.5 [Duoneb -] 1 neb NEB Q4H 05/09/15 Allopurinol [Zyloprim -] 100 mg PO DAILY 05/09/15 Aspirin [ASA -] 81 mg PO DAILY 05/09/15 Carvedilol [Coreg] 6.25 mg PO BID 05/09/15 Colchicine 0.6 mg PO ASDIR 05/09/15 Fluoxetine HCl [Prozac] 40 mg PO HS 05/09/15 Insulin Glargine,Hum.rec.anlog [Lantus (10mL VIAL) -] 70 units SQ AM 05/09/15 Liraglutide [Victoza -] 1.8 mg SQ DAILY@0700 05/09/15 Lisinopril [Zestril] 5 mg PO DAILY 05/09/15 Tamsulosin HCl [Flomax -] 0.4 mg PO DAILY 05/09/15 Trazodone HCl [Desyrel -] 50 mg PO BID 05/09/15 Sennosides/Docusate Sodium [Pericolace -] 1 tablet PO BID tablet 05/14/15 Lorazepam [Ativan] 0.5 tab PO HS 12/08/15 Cephalexin [Keflex] 500 mg PO QID #28 capsule MDD 4 05/08/16 Rivaroxaban [Xarelto -] 20 mg PO DAILY 05/08/16 Atorvastatin Calcium 40 mg PO HS 05/09/16 Cholecalciferol (Vitamin D3) [Vitamin D3 -] 1,000 unit PO DAILY 05/09/16 Clotrimazole [Lotrimin 1% Cream -] 1 applic TP BID 05/09/16 Dexamethasone 4 mg PO 05/09/16 Famotidine/Ca Carb/Mag Hydrox [Pepcid Complete Tablet Chew] 1 each PO DAILY Ferrous Sulfate 325 mg PO DAILY 05/09/16 Gabapentin 100 mg PO DAILY 05/09/16 Insulin Regular, Human [Humulin R U-500 Kwikpen] 15 unit SQ TID 05/09/16 Silver Sulfadiazine 1% Top Cr [Silvadene -] 1 applic TP DAILY 05/09/16 Torsemide [Demadex -] 200 mg PO DAILY 05/09/16 Family Disease History - Family Disease History Family History: Unremarkable Review of Systems - Review of Systems Cardiovascular: denies: Chest Pain Respiratory: reports: Cough, Hemoptysis, SOB on Exertion Physical Exam Vital Sings: Vital Signs Temperature 97.9 F 05/10/16 06:00 Pulse Rate 73 05/10/16 06:00 Respiratory Rate 20 05/10/16 06:00 Blood Pressure 124/82 05/10/16 06:00 O2 Sat by Pulse Oximetry (%) 98 05/10/16 00:27 Constitutional: Yes: Calm Eyes: Yes: EOM Intact HENT: Yes: Normocephalic Neck: Yes: Trachea Midline Cardiovascular: Yes: S1, S2 Respiratory: Yes: Diminished, Rales Gastrointestinal: Yes: Abdomen, Obese Edema: Yes Neurological: Yes: Alert Psychiatric: Yes: Alert Labs: CBC, BMP 05/10/16 06:00 05/10/16 06:00 Imaging - Results Chest X-ray: Image Reviewed EKG: Report Reviewed Problem List - Problems (1) Hemoptysis Code(s): R04.2 - HEMOPTYSIS (2) Lung nodule Code(s): R91.1 - SOLITARY PULMONARY NODULE (3) ASHD (arteriosclerotic heart disease) Code(s): I25.10 - ATHSCL HEART DISEASE OF [place] CORONARY ARTERY W/O ANG PCTRS (4) Acute on chronic systolic and diastolic heart failure, NYHA class 4 Code(s): I50.43 - ACUTE ON CHRONIC COMBINED SYSTOLIC AND DIASTOLIC HRT FAIL (5) CHF (congestive heart failure) Code(s): I50.9 - HEART FAILURE, UNSPECIFIED Qualifiers: Congestive heart failure type: systolic Congestive heart failure chronicity: acute on chronic Qualified Code(s): I50.23 - Acute on chronic systolic (congestive) heart failure (6) COPD (chronic obstructive pulmonary disease) case management patient Code(s): YQA7312 - Assessment/Plan BLOOD STREAKED SPUTUM SINCE NOAC FOR DVT MULTIPLE MEDICAL PROBLEMS LISTED HAVE SPOKEN TO DR DUBON (RT ONCO) PATIENT RECEIVES STEREOTACTIC RADIATION FOR LUNG CA AND CAN COMPLETE LAST TREATMENT WHEN DISCHARGED WOULD MONITOR BLOOD STREAKED SPUTUM FOR NOW CONSIDER IVC FILTER IF ABOVE CONTINUES OR WORSENS Mak AGUSTIN MD
--- NOTE | 2016-05-10 11:30 | EKG ---
Test Reason : Blood Pressure : / mmHG Vent. 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
--- NOTE | 2016-05-10 11:58 | CONSULT ---
Consult - text type - Consultation Consultation Note: Renal Consult for CKD and Volume Overload This is a 61 year old gentleman with PMhx of CKD Stage 3 w/o proteinuria, CHF ( EF 15%), CVA, COPD, Lung CA currently getting radiation therapy, Recent diagnosed DVT on Xarelto presented with hemoptysis. Pt states that he stated coughing up blood streaked sputum yesterday. No change in sob from baseline. No Abd pain, N/V/D. No other sites of bleeding. Pt on Torsemide 100mg Daily. Pt reports decrease in LE swelling. Good urine output. NO fever or chills. PMhx: as above Allergies: NKDA Family hx: NC Social Hx: + Smoker ROS: as per HPI Home Meds: Home Medications Medication Instructions Recorded Albuterol 2.5/Ipratropium 0.5 1 neb NEB Q4H 05/09/15 [Duoneb -] Allopurinol [Zyloprim -] 100 mg PO DAILY 05/09/15 Aspirin [ASA -] 81 mg PO DAILY 05/09/15 Carvedilol [Coreg] 6.25 mg PO BID 05/09/15 Colchicine 0.6 mg PO ASDIR 05/09/15 Fluoxetine HCl [Prozac] 40 mg PO HS 05/09/15 Insulin Glargine,Hum.rec.anlog 70 units SQ AM 05/09/15 [Lantus (10mL VIAL) -] Liraglutide [Victoza -] 1.8 mg SQ DAILY@0700 05/09/15 Lisinopril [Zestril] 5 mg PO DAILY 05/09/15 Tamsulosin HCl [Flomax -] 0.4 mg PO DAILY 05/09/15 Trazodone HCl [Desyrel -] 50 mg PO BID 05/09/15 Sennosides/Docusate Sodium 1 tablet PO BID tablet 05/14/15 [Pericolace -] Lorazepam [Ativan] 0.5 tab PO HS 12/08/15 Cephalexin [Keflex] 500 mg PO QID #28 capsule MDD 4 05/08/16 Rivaroxaban [Xarelto -] 20 mg PO DAILY 05/08/16 Atorvastatin Calcium 40 mg PO HS 05/09/16 Cholecalciferol (Vitamin D3) 1,000 unit PO DAILY 05/09/16 [Vitamin D3 -] Clotrimazole [Lotrimin 1% Cream -] 1 applic TP BID 05/09/16 Dexamethasone 4 mg PO 05/09/16 Famotidine/Ca Carb/Mag Hydrox 1 each PO DAILY 05/09/16 [Pepcid Complete Tablet Chew] Ferrous Sulfate 325 mg PO DAILY 05/09/16 Gabapentin 100 mg PO DAILY 05/09/16 Insulin Regular, Human [Humulin R 15 unit SQ TID 05/09/16 U-500 Kwikpen] Silver Sulfadiazine 1% Top Cr 1 applic TP DAILY 05/09/16 [Silvadene -] Torsemide [Demadex -] 200 mg PO DAILY 05/09/16 Vital Signs Temperature 97.9 F 05/10/16 06:00 Pulse Rate 73 05/10/16 06:00 Respiratory Rate 20 05/10/16 06:00 Blood Pressure 124/82 05/10/16 06:00 O2 Sat by Pulse Oximetry (%) 98 05/10/16 00:27 Intake & Output 05/07/16 05/08/16 05/09/16 05/10/16 23:59 23:59 23:59 23:59 Weight 285 lb 285 lb 2 oz Gen: NAD, awake and alert HEENT: NC/AT, No JVD CVS: RRR, No M/R Lungs: CTA, no rales or wheeze Abd: soft, Obese, NT/ND Ext: 2+ edema in LE, no tenderness Neuro: No focal defects CBC, BMP 05/10/16 06:00 05/10/16 06:00 Laboratory Tests 05/10/16 05/10/16 06:00 06:00 Random Glucose 557 H* Hemoglobin A1c % 10.8 H D Albumin 3.1 L Current Medications Albuterol/Ipratropium (Duoneb -) 1 amp NEB Q4HWA [facility] Last Admin: 05/10/16 09:15 Dose: 1 amp Allopurinol (Zyloprim -) 100 mg PO DAILY [facility] Last Admin: 05/10/16 10:30 Dose: 100 mg Aspirin (Asa -) 81 mg PO DAILY [facility] Last Admin: 05/10/16 10:30 Dose: 81 mg Atorvastatin Calcium (Lipitor -) 40 mg PO HS [facility] Last Admin: 05/10/16 06:15 Dose: Not Given Carvedilol (Coreg -) 6.25 mg PO BID [facility] Last Admin: 05/10/16 10:30 Dose: 6.25 mg Cephalexin HCl (Keflex -) 500 mg PO Q6HPO [facility] Last Admin: 05/10/16 11:16 Dose: 500 mg Cholecalciferol (Vitamin D3 -) 1,000 unit PO DAILY [facility] Last Admin: 05/10/16 10:30 Dose: 1,000 unit Clotrimazole (Lotrimin 1% Cream -) 1 applic TP BID [facility] Last Admin: 05/10/16 10:29 Dose: 1 applic Ferrous Sulfate (Feosol -) 325 mg PO DAILY [facility] Last Admin: 05/10/16 10:30 Dose: 325 mg Fluoxetine HCl (Prozac -) 40 mg PO HS [facility] Last Admin: 05/10/16 06:16 Dose: Not Given Gabapentin (Neurontin -) 100 mg PO DAILY [facility] Last Admin: 05/10/16 10:30 Dose: 100 mg Hydralazine HCl (Apresoline -) 37.5 mg PO TID [facility] Last Admin: 05/10/16 06:01 Dose: 37.5 mg Insulin Aspart (Novolog Vial Sliding Scale -) 1 vial SQ [facility] PRN Reason: Protocol Last Admin: 05/10/16 11:22 Dose: 10 unit Insulin Detemir (Levemir Vial) 30 units SQ BIDI [facility] Last Admin: 05/10/16 08:47 Dose: 30 units Isosorbide Dinitrate (Isordil -) 20 mg PO TID [facility] Last Admin: 05/10/16 06:24 Dose: 20 mg Liraglutide (Victoza -) 1.8 mg SQ DAILY@0700 [facility] Last Admin: 05/10/16 06:23 Dose: 1.8 mg Lorazepam (Ativan -) 0.5 mg PO HS [facility] Last Admin: 05/10/16 06:09 Dose: Not Given Non-Formulary Medication (Colchicine [Colchicine]) 0.6 mg PO ASDIR [facility] Non-Formulary Medication (Famotidine/Ca Carb/Mag Hydrox [Pepcid Complete Tablet Chew]) 1 each PO DAILY [facility] Senna/Docusate Sodium (Pericolace -) 1 tablet PO BID [facility] Last Admin: 05/10/16 10:30 Dose: 1 tablet Silver Sulfadiazine (Silvadene -) 1 applic TP DAILY [facility] Last Admin: 05/10/16 10:29 Dose: 1 applic Tamsulosin HCl (Flomax -) 0.4 mg PO DAILY@0830 [facility] Last Admin: 05/10/16 08:48 Dose: 0.4 mg Torsemide (Demadex -) 200 mg PO DAILY [facility] Last Admin: 05/10/16 10:31 Dose: 200 mg Trazodone HCl (Desyrel -) 50 mg PO BID [facility] Last Admin: 05/10/16 10:30 Dose: 50 mg A/P 61 year old gentleman with PMhx of CKD Stage 3 w/o proteinuria, CHF (EF 15%), CVA, COPD, Lung CA currently getting radiation therapy, Recent diagnosed DVT on Xarelto presented with hemoptysis. #Hemoptysis off Xarelto Consulted Dr. Quispe for IVF filter Pulmonary follow up Hgb stable #CKD Stage 3 with chronic volume overload Renal function near baseline Continue Toresemide 100mg Daily Trend BUN/cr daily Check UA #CHF (EF 15%) Continue Torsemide, Coreg Cardiology follow up #Lung Ca Oncology follow up to resume Radiation Tx as outpatient #Pseduohyponatremia Corrected Na is 144 #DVT IVF filter placement #Thrombocytopenia Trend Plt counts Thank you will Follow Al Forte DO
[2016-05-10] MEDS ORDERED: TORSEMIDE 100 MG TABLET PO SCH (12:33)
--- NOTE | 2016-05-10 12:47 | PN ---
Progress Note (short form) - Note Progress Note: Radiation Oncology Pt is a 61 yo known to me with presumed stage I NIRANJAN lung cancer (unable to biopsy x 2), multiple medical issues including severe CHF, oxygen-dep COPD, CAD s/p CABG, recent DVT on A/C presented with bright red hemoptysis yesterday. He elected to receive empiric tx with stereotactic radiotherapy having rec'd 4 out of 5 planned tx and scheduled for final tx today. Currently stable HD and hemogram. Xarelto on hold. Awaiting further mgt of DVT ?IVC filter. Has significant SOB at baseline, unchanged. No CP or cough. Will hold RT until he is discharged. Discussed w Dr. Francisco and pt/.
--- NOTE | 2016-05-10 13:52 | PN ---
Progress Note (short form) - Note Progress Note: Vascular surgery Pt seen and examined. Recent DVT on xerelto. Now with hemoptysis. Xerelto on hold. Spoke to family, will place IVC filter brenton in am NPO past midnite. Leonard Quispe DO
[2016-05-10] MEDS ORDERED: RIVAROXABAN 20 MG TABLET PO SCH (16:30)
--- NOTE | 2016-05-10 16:30 | PN ---
Teaching Attending Note Name of Resident: Kyara Hair ATTENDING PHYSICIAN STATEMENT I saw and evaluated the patient. I reviewed the resident's note and discussed the case with the resident. I agree with the resident's findings and plan as documented. SUBJECTIVE: seen and evaluated at the bedside OBJECTIVE: no further hemoptysis; resting comfortably up in chair ASSESSMENT AND PLAN: 61 yo M with a PMHx of lung CA (on radiation, last course is ), CHF ( pacemaker in place), CKD, CVA, COPD (on O2 2L at home), HTN, diabetes, HLD, fatty liver, anxiety and depression who presents with SOB and hemoptysis Hemoptysis -pt was admitted to observation for hemoptysis on full dose anticoagulation -no further hemoptysis; on history pt did not have large amount of hemoptysis either -as there is no further bleeding pt does not need to have anticoagulation stopped and IVC filter placed; resident discussed this with pulm attending who is in agreenment DM -glucose still not well controlled -resume home meds -sliding scale for coverage
--- NOTE | 2016-05-10 17:41 | DS ---
Physical Exam: SUBJECTIVE: Patient seen and examined, admits to one episode of blood tinged sputum with cough. NO other episodes of bleeding. Breathing ok with NC, O2 2.5L. Calvin chest pain. SOB only with laying down. OBJECTIVE: Vital Signs Period Temp Pulse Resp BP Sys/Mcconnell Pulse Ox Last 24 Hr 97.5 F-98.5 F 72-78 18-20 111-143/57-83 98 PHYSICAL EXAM GENERAL: The patient is obese awake, alert, and fully oriented, in no acute distress. HEAD: Normal with no signs of trauma. LUNGS: decreased breath ,no wheezes, no crackles, no accessory muscle use. HEART: Regular rate and rhythm, S1, S2 without murmur, rub or gallop. ABDOMEN: Soft, very distended with fluid movement, normoactive bowel sounds, no guarding, no rebound, no hepatosplenomegaly, no masses. EXTREMITIES: 2+ pulses, warm, well-perfused, no edema. B/l leg LE cellulitis, chronic, NEUROLOGICAL: Cranial nerves II through XII grossly intact. Normal speech, gait not observed. PSYCH: Normal mood, normal affect. SKIN: Warm, dry, normal turgor, no rashes or lesions noted. LABS Laboratory Results - last 24 hr 05/09/16 05/10/16 05/10/16 23:19 01:10 02:00 WBC RBC Hgb Hct MCV MCHC RDW Plt Count MPV Neutrophils % Lymphocytes % Monocytes % Eosinophils % Basophils % INR PTT (Actin FS) Sodium 133 L Potassium 4.0 Chloride 92 L Carbon Dioxide 30 Anion Gap 11 BUN 55 H Creatinine 2.1 H Creat Clearance w eGFR POC Glucometer > 400 > 600 Random Glucose 658 H* D Hemoglobin A1c % Calcium 8.3 L Phosphorus Magnesium Total Bilirubin AST ALT Alkaline Phosphatase Total Protein Albumin Triglycerides Cholesterol Total LDL Cholesterol HDL Cholesterol 05/10/16 05/10/16 05/10/16 04:04 05:31 06:00 WBC 7.3 RBC 3.90 L Hgb 11.7 Hct 36.1 MCV 92.7 MCHC 32.4 RDW 16.9 H Plt Count 124 L D MPV 10.8 Neutrophils % 94.7 H Lymphocytes % 3.3 L D Monocytes % 1.8 L D Eosinophils % 0.1 D Basophils % 0.1 INR PTT (Actin FS) Sodium Potassium Chloride Carbon Dioxide Anion Gap BUN Creatinine Creat Clearance w eGFR POC Glucometer 574 554 Random Glucose Hemoglobin A1c % Calcium Phosphorus Magnesium Total Bilirubin AST ALT Alkaline Phosphatase Total Protein Albumin Triglycerides Cholesterol Total LDL Cholesterol HDL Cholesterol 05/10/16 05/10/16 05/10/16 06:00 06:00 06:00 WBC RBC Hgb Hct MCV MCHC RDW Plt Count MPV Neutrophils % Lymphocytes % Monocytes % Eosinophils % Basophils % INR 1.55 H PTT (Actin FS) 27.2 Sodium 133 L Potassium 4.0 Chloride 92 L Carbon Dioxide 30 Anion Gap 11 BUN 54 H Creatinine 2.1 H Creat Clearance w eGFR 32.27 POC Glucometer Random Glucose 557 H* Hemoglobin A1c % 10.8 H D Calcium 8.6 Phosphorus 4.0 D Magnesium 2.3 Total Bilirubin 1.0 D AST 23 D ALT 58 Alkaline Phosphatase 192 H Total Protein 6.8 Albumin 3.1 L Triglycerides Cholesterol Total LDL Cholesterol HDL Cholesterol 05/10/16 05/10/16 05/10/16 06:00 06:30 11:12 WBC RBC Hgb Hct MCV MCHC RDW Plt Count MPV Neutrophils % Lymphocytes % Monocytes % Eosinophils % Basophils % INR PTT (Actin FS) Sodium Potassium Chloride Carbon Dioxide Anion Gap BUN Creatinine Creat Clearance w eGFR POC Glucometer 534 528 Random Glucose Hemoglobin A1c % Calcium Phosphorus Magnesium Total Bilirubin AST ALT Alkaline Phosphatase Total Protein Albumin Triglycerides 56 D Cholesterol 85 D Total LDL Cholesterol 44 D HDL Cholesterol 42 HOSPITAL COURSE: Date of Admission:05/09/16 Date of Discharge: 05/10/16 This is a 61 year old male with a significant past medical history of lung CA (on radiation, last course is ), with CHF severe systolic dysfunction , EF-15%, s/p pacemaker/defibrillator, CKD, CVA, COPD (on O2 2.5 L at home), HTN , uncontrolled diabetes, HLD, fatty liver, anxiety and depression presented to the ED with the chief complaints of "coughing up blood" after starting xarelto for dvt of RLE. He was admitted to the hospital for observation of his condition and monitoring of his blood counts. Vascular surgery was initially consulted for possible IVC filter, this was deemed not acutely needed at this time due to no active bleed. Mr. Holley did not have any episodes of hemoptysis while in hospital, only one episode of blood tinged sputum with cough. Blood tinged sputum most likely related to lung CA vs shearing force during cough. Patient was restarted on xarelto. Patient blood glucose level were significantly elevated during stay. Mr. Holley claimed that at home they are well controlled and during hospital visits they are always elevated. BGM ranging from 400-500s. No anion gap. No associated symptoms. Dosing of levemir 30 bid with insulin sliding scale was not sufficient, initially. Once sugars were under control patient was safe for discharge. all other co morbid conditions will be followed up as an outpatient. Follow up with heme/onc for radiation therapy Follow up with pulmonary Follow up with wound care Follow up with primary for better control of sugars Follow up with renal for monitoring chronic kidney injury Patient advised if he did experience any episodes of bleeding or any associated symptoms to return to the emergency room. Minutes to complete discharge: 40 Discharge Summary Reason For Visit: HEMOPTYSIS/ HYPERGLYCEMIA/ LUNG NODULE Current Active Problems COPD (chronic obstructive pulmonary disease) case management patient (Acute) Hemoptysis (Acute) Lung nodule (Acute) Condition: Stable - Instructions Diet, Activity, Other Instructions: Mr. Holley, you have been monitored for your acute episode coughing up blood. Your blood counts are stable. You have not experienced any episodes of brinda bleeding here, we do not feel the need for IVC filter at this time. We would like you to continue to take your prescribed daily dose of xarelto. Please follow up with your specialist for further evaluation of your multiple conditions with in one week. Your blood sugars were quite elevated during your stay, please follow up with your primary to make necessary adjustments in your medications if need be. You can follow up with Dr. Quispe for your continued wound care. Please follow up your oncologist for your next radiation treatment. If you experience any worsening of symptoms, including chest pain, shortness of breath, bleeding, please return to the emergency room. Referrals: Jose Luis Walters MD [Staff Physician] - STAFF,NOT ON [Primary Care Provider] - Leonard Quispe MD [Staff Physician] - Al Forte MD [Staff Physician] - Disposition: HOME - Home Medications Comprehensive Discharge Medication List: Ambulatory Orders Albuterol 2.5/Ipratropium 0.5 [Duoneb -] 1 neb NEB Q4H 05/09/15 Allopurinol [Zyloprim -] 100 mg PO DAILY 05/09/15 Aspirin [ASA -] 81 mg PO DAILY 05/09/15 Carvedilol [Coreg] 6.25 mg PO BID 05/09/15 Colchicine 0.6 mg PO ASDIR 05/09/15 Fluoxetine HCl [Prozac] 40 mg PO HS 05/09/15 Insulin Glargine,Hum.rec.anlog [Lantus (10mL VIAL) -] 70 units SQ AM 05/09/15 Liraglutide [Victoza -] 1.8 mg SQ DAILY@0700 05/09/15 Lisinopril [Zestril] 5 mg PO DAILY 05/09/15 Tamsulosin HCl [Flomax -] 0.4 mg PO DAILY 05/09/15 Trazodone HCl [Desyrel -] 50 mg PO BID 05/09/15 Sennosides/Docusate Sodium [Pericolace -] 1 tablet PO BID tablet 05/14/15 Lorazepam [Ativan] 0.5 tab PO HS 12/08/15 Cephalexin [Keflex] 500 mg PO QID #28 capsule MDD 4 05/08/16 Rivaroxaban [Xarelto -] 20 mg PO DAILY 05/08/16 Atorvastatin Calcium 40 mg PO HS 05/09/16 Cholecalciferol (Vitamin D3) [Vitamin D -] 1,000 unit PO DAILY 05/09/16 Clotrimazole [Lotrimin -] 1 applic TP BID 05/09/16 Dexamethasone 4 mg PO 05/09/16 Famotidine/Ca Carb/Mag Hydrox [Pepcid Complete Tablet Chew] 1 each PO DAILY Ferrous Sulfate 325 mg PO DAILY 05/09/16 Gabapentin 100 mg PO DAILY 05/09/16 Insulin Regular, Human [Humulin R U-500 Kwikpen] 15 unit SQ TID 05/09/16 Silver Sulfadiazine 1% Top Cr [Silvadene -] 1 applic TP DAILY 05/09/16 Torsemide [Demadex -] 200 mg PO DAILY 05/09/16 This patient is new to me today: No Emergency Visit: Yes ED Registration Date: 05/09/16 Care time: The patient presented to the Emergency Department on the above date and was hospitalized for further evaluation of their emergent condition. Critical Care patient: No - Discharge Referral Referred to [facility] Yes Physician Referral: Leonard Quispe DO ([facility])
[2016-05-10] MEDS ORDERED: INSULIN DETEMIR 100 UNITS/ML MDV SQ ONE (21:07)
--- NOTE | 2016-05-10 23:16 | HOSP ---
Subjective - Review of Symptoms Events since last encounter: Signed out from the resident mentioning that the patient can be discharged if sugar is < 250. Rechecked his finger stick glucose which ranges between 387 to 430. Patient received additional 30Units of Levemir, 10 U, 10U and 8 units of regular Insulin. But the sugar is not under control. Patient was very upset as he wanted to go home today. I explained in depth about the consequences of leaving the hospital with high blood sugar but patient said he will be visiting his figurine maker this week and that he will take his Insulin at home as prescribed. Waited for half an hour before he was discharged. But as per the nurse, patient insisted to get his daily home medication, Ativan and Trazodone, hence he just received it at 10:30pm. Patient insisted to go home but mentioned that none of the family members can come to pick him up at this time. He said he is going to take a cab. I didn't feel comfortable sending the patient home with uncontrolled sugar of 400 and he just received Ativan with Trazodone. Patient has been explained about the above mentioned situation and he agreed to stay until tomorrow morning. Plan of care explained to the patient. He verbalized understanding. Case discussed with Dr. Wei. Physical Examination Vital Signs: Vital Signs Temperature 97.5 F L 05/10/16 18:00 Pulse Rate 75 05/10/16 18:00 Respiratory Rate 20 05/10/16 18:00 Blood Pressure 120/65 05/10/16 18:00 O2 Sat by Pulse Oximetry (%) 100 05/10/16 09:00 Labs: CBC, BMP 05/10/16 06:00 05/10/16 06:00 Visit type - Emergency Visit Emergency Visit: Yes ED Registration Date: 05/09/16 Care time: The patient presented to the Emergency Department on the above date and was hospitalized for further evaluation of their emergent condition. - New Patient This patient is new to me today: Yes Date on this admission: 05/10/16 - Critical Care Critical Care patient: No
[2016-05-11] MEDS: ALBUTEROL SO4 2.5/IPRATROPIUM 0.5 INH SOL 3 ML VIAL.NEB. NEB SCH (06:00)
[2016-05-11] MEDS: hydrALAZINE HCL 25 MG TABLET (FP) PO SCH (06:12)
[2016-05-11] MEDS: CEPHALEXIN MONOHYDRATE 500 MG CAPSULE (UD) PO SCH ×2 (06:14)
[2016-05-11] MEDS: INSULIN SLIDING SCALE (NOVOLOG) 1 VIAL SQ SCH (06:14)
[2016-05-11] MEDS: INSULIN DETEMIR 100 UNITS/ML MDV SQ SCH (06:15)
[2016-05-11] MEDS: LIRAGLUTIDE 0.6 MG/0.1 ML PEN.INJCTR SQ SCH (06:23)
[2016-05-11] MEDS: ISOSORBIDE DINITRATE 20 MG TABLET (FP) PO SCH (07:27)
[2016-05-11] MEDS: TAMSULOSIN HCL 0.4 MG CAP.ER.24H (FP) PO SCH (08:11)
--- NOTE | 2016-05-11 08:27 | PN ---
Physical Exam: SUBJECTIVE: Patient seen and examined, wanting to go home; insulin overnight, BGM this am 176. Denies hemoptysis, dizziness, lightheadedness, chest pain, sob , leg swelling. OBJECTIVE: Vital Signs Period Temp Pulse Resp BP Sys/Mcconnell Pulse Ox Last 24 Hr 97.5 F-97.7 F 72-75 20-20 111-120/57-65 100-100 GENERAL: The patient is obese awake, alert, and fully oriented, in no acute distress. HEAD: Normal with no signs of trauma. EYES: PERRL, extraocular movements intact, sclera anicteric, conjunctiva clear. No ptosis. ENT: Ears normal, nares patent, oropharynx clear without exudates, moist mucous membranes. NECK: Trachea midline, full range of motion, supple. LUNGS: decreased breath sound Breath sounds equal, clear to auscultation bilaterally, no wheezes, no crackles, no accessory muscle use. HEART: Regular rate and rhythm, S1, S2 murmur, rub or gallop. ABDOMEN: Soft, very distended, normoactive bowel sounds, no guarding, no rebound, no hepatosplenomegaly, no masses. EXTREMITIES: 2+ pulses, warm, well-perfused, no edema. b/l chronic cellulits NEUROLOGICAL: Cranial nerves II through XII grossly intact. Normal speech, gait not observed. PSYCH: Normal mood, normal affect. SKIN: Warm, dry, normal turgor, no rashes or lesions noted; b/l chronic cellulits; wound Laboratory Results - last 24 hr 05/09/16 05/10/16 05/10/16 23:19 01:10 05:31 INR PTT (Actin FS) Sodium Potassium Chloride Carbon Dioxide Anion Gap BUN Creatinine Creat Clearance w eGFR POC Glucometer > 400 > 600 554 Random Glucose Hemoglobin A1c % Calcium Phosphorus Magnesium Total Bilirubin AST ALT Alkaline Phosphatase Total Protein Albumin Triglycerides Cholesterol Total LDL Cholesterol HDL Cholesterol 05/10/16 05/10/16 05/10/16 06:00 06:00 06:00 INR 1.55 H PTT (Actin FS) 27.2 Sodium 133 L Potassium 4.0 Chloride 92 L Carbon Dioxide 30 Anion Gap 11 BUN 54 H Creatinine 2.1 H Creat Clearance w eGFR 32.27 POC Glucometer Random Glucose 557 H* Hemoglobin A1c % 10.8 H D Calcium 8.6 Phosphorus 4.0 D Magnesium 2.3 Total Bilirubin 1.0 D AST 23 D ALT 58 Alkaline Phosphatase 192 H Total Protein 6.8 Albumin 3.1 L Triglycerides Cholesterol Total LDL Cholesterol HDL Cholesterol 05/10/16 05/10/16 05/10/16 06:00 11:12 19:45 INR PTT (Actin FS) Sodium Potassium Chloride Carbon Dioxide Anion Gap BUN Creatinine Creat Clearance w eGFR POC Glucometer 528 399 Random Glucose Hemoglobin A1c % Calcium Phosphorus Magnesium Total Bilirubin AST ALT Alkaline Phosphatase Total Protein Albumin Triglycerides 56 D Cholesterol 85 D Total LDL Cholesterol 44 D HDL Cholesterol 42 05/10/16 05/10/16 05/10/16 20:40 21:34 22:21 INR PTT (Actin FS) Sodium Potassium Chloride Carbon Dioxide Anion Gap BUN Creatinine Creat Clearance w eGFR POC Glucometer 430 387 372 Random Glucose Hemoglobin A1c % Calcium Phosphorus Magnesium Total Bilirubin AST ALT Alkaline Phosphatase Total Protein Albumin Triglycerides Cholesterol Total LDL Cholesterol HDL Cholesterol 05/11/16 05:56 INR PTT (Actin FS) Sodium Potassium Chloride Carbon Dioxide Anion Gap BUN Creatinine Creat Clearance w eGFR POC Glucometer 176 Random Glucose Hemoglobin A1c % Calcium Phosphorus Magnesium Total Bilirubin AST ALT Alkaline Phosphatase Total Protein Albumin Triglycerides Cholesterol Total LDL Cholesterol HDL Cholesterol Active Medications Generic Name Dose Route Start Last Admin Trade Name Freq PRN Reason Stop Dose Admin Albuterol/Ipratropium 1 amp 05/09/16 22:00 05/11/16 06:00 Duoneb - NEB Not Given Q4HWA [facility] Allopurinol 100 mg 05/09/16 22:00 05/10/16 10:30 Zyloprim - PO 100 mg DAILY MAGEN Administration Aspirin 81 mg 05/09/16 22:00 05/10/16 10:30 Asa - PO 81 mg DAILY MAGEN Administration Atorvastatin Calcium 40 mg 05/09/16 22:00 05/10/16 22:49 Lipitor - PO 40 mg HS MAGEN Administration Carvedilol 6.25 mg 05/09/16 22:00 05/10/16 22:46 Coreg - PO 6.25 mg BID MAGEN Administration Cephalexin HCl 500 mg 05/10/16 00:00 05/11/16 06:14 Keflex - PO 500 mg Q6HPO MAGEN Administration Cholecalciferol 1,000 unit 05/09/16 22:00 05/10/16 10:30 Vitamin D3 - PO 1,000 unit DAILY MAGEN Administration Clotrimazole 1 applic 05/09/16 22:00 05/10/16 22:00 Lotrimin 1% Cream - TP Not Given BID MAGEN Ferrous Sulfate 325 mg 05/09/16 22:00 05/10/16 10:30 Feosol - PO 325 mg DAILY MAGEN Administration Fluoxetine HCl 40 mg 05/09/16 22:00 05/10/16 22:49 Prozac - PO 40 mg HS MAGEN Administration Gabapentin 100 mg 05/09/16 22:00 05/10/16 10:30 Neurontin - PO 100 mg DAILY MAGEN Administration Hydralazine HCl 37.5 mg 05/10/16 06:00 05/11/16 06:12 Apresoline - PO 37.5 mg TID MAGEN Administration Insulin Aspart 1 vial 05/10/16 07:00 05/11/16 06:14 Novolog Vial Sliding Scale - SQ 2 unit ACHS MAGEN Administration Protocol Insulin Detemir 30 units 05/10/16 07:45 05/11/16 06:15 Levemir Vial SQ 30 units BIDI MAGEN Administration Isosorbide Dinitrate 20 mg 05/10/16 06:00 05/11/16 07:27 Isordil - PO Not Given TID MAGEN Liraglutide 1.8 mg 05/10/16 07:00 05/11/16 06:23 Victoza - SQ 1.8 mg DAILY@0700 MAGEN Administration Lorazepam 0.5 mg 05/09/16 22:00 05/10/16 22:46 Ativan - PO 0.5 mg HS MAGEN Administration Non-Formulary Medication 0.6 mg 05/09/16 22:00 Colchicine [Colchicine] PO ASDIR [facility] Non-Formulary Medication 1 each 05/09/16 22:00 Famotidine/Ca Carb/Mag Hydrox [Pepcid Complete Tablet Chew] PO DAILY MAGEN Rivaroxaban 20 mg 05/10/16 16:30 05/10/16 16:25 Xarelto - PO 20 mg DAILY MAGEN Administration Senna/Docusate Sodium 1 tablet 05/09/16 22:00 05/10/16 22:55 Pericolace - PO 1 tablet BID MAGEN Administration Silver Sulfadiazine 1 applic 05/09/16 22:00 05/10/16 10:29 Silvadene - TP 1 applic DAILY MAGEN Administration Tamsulosin HCl 0.4 mg 05/09/16 22:30 05/11/16 08:11 Flomax - PO 0.4 mg DAILY@0830 MAGEN Administration Torsemide 100 mg 05/10/16 12:33 Demadex - PO DAILY MAGEN Trazodone HCl 50 mg 05/09/16 22:00 05/10/16 22:46 Desyrel - PO 50 mg BID MAGEN Administration ASSESSMENT/PLAN: This is a 61 year old male with significant PMHx, lung CA curent radiation therapy, last , sever systolic cardiac dysfunction, sp pacemaker/ defibrillator, ckd, cva, copd, htn, uncontrolled diabetes, admitted under observation for acute episode of " coughing up blood" s/p xarelto for treatment of RLE dvt. 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 Acosta f/u #COPD ; stable on 02 2.5L #b/l lower extremity cellulits: -continue wound care d/c home Visit type - Emergency Visit Emergency Visit: Yes ED Registration Date: 05/09/16 Care time: The patient presented to the Emergency Department on the above date and was hospitalized for further evaluation of their emergent condition. - New Patient This patient is new to me today: No - Critical Care Critical Care patient: No
[2016-05-11 08:55] VITALS: BP 100/55; PULSE 74; TEMP 97.6
== END 2016-05-11 09:20 | disposition home or self-care (01) ==
LOC: JER 15:52 → JERBED 20:45 → J8W 05-10 01:03
PROVIDERS: ADMIT Internal Medicine; ATTEND Internal Medicine
DX: R04.2 Hemoptysis (principal); C34.90 Malignant neoplasm of unspecified part of unspecified bronchus or lung; J44.9 Chronic obstructive pulmonary disease, unspecified; K76.0 Fatty (change of) liver, not elsewhere classified; F41.8 Other specified anxiety disorders; N17.9 Acute kidney failure, unspecified; E11.65 Type 2 diabetes mellitus with hyperglycemia; E78.5 Hyperlipidemia, unspecified; R91.1 Solitary pulmonary nodule; I25.10 Atherosclerotic heart disease of native coronary artery without angina pectoris; L03.116 Cellulitis of left lower limb; L03.115 Cellulitis of right lower limb; I25.5 Ischemic cardiomyopathy; I82.491 Acute embolism and thrombosis of other specified deep vein of right lower extremity; E87.1 Hypo-osmolality and hyponatremia; F17.210 Nicotine dependence, cigarettes, uncomplicated; I13.0 Hypertensive heart and chronic kidney disease with heart failure and stage 1 through stage 4 chronic kidney disease, or unspecified chronic kidney disease; N18.3 Chronic kidney disease, stage 3 (moderate); I50.23 Acute on chronic systolic (congestive) heart failure; Z95.1 Presence of aortocoronary bypass graft; Z99.81 Dependence on supplemental oxygen; Z95.810 Presence of automatic (implantable) cardiac defibrillator; Z86.73 Personal history of transient ischemic attack (TIA), and cerebral infarction without residual deficits
CPT/HCPCS: 36415; 71010-TC; 80048; 80053; 80061; 82550; 83036; 83721; 83735; 83880; 84100; 84484; 85025; 85610; 85730; 93005; 93010; 94640; 99284-25; G0378

== ENCOUNTER 2016-05-26 14:19 | Inpatient (IN) | payer OTHER ==
[2016-05-26 14:58] VITALS: BMI 39.4
--- NOTE | 2016-05-26 15:29 | PDOC ---
History of Present Illness - General History Source: Patient Exam Limitations: No Limitations - History of Present Illness Initial Comments: 05/26/16 15:42 The patient is a 61 year old male presenting with family, with a significant past medical history of presumed lung CA, CHF, CKD, CVA, COPD, HTN, diabetes, HLD, fatty liver, anxiety and depression, who presents to the ED with shortness of breath and distended abdomen. Pt has noted fluid build up in his abdomen which has made it difficult for him to ambulate. He reports that his appetite has been fine in the last few days. Pt is also experiencing a yeast infection. The patient denies any fever, chills, nausea, vomiting, or diarrhea. The patient denies any chest pain. Nurse Instructor: Dr. Pittman Technical Account Manager: Dr. Jammie Mendez Corporate Learning Consultant: Dr. Castillo <Mary Lutz - Last Filed: 05/26/16 15:42> <Sisi Arias - Last Filed: 05/26/16 20:24> - General Chief Complaint: Shortness of Breath Stated Complaint: PCP SENT Time Seen by Provider: 05/26/16 14:59 Past History <Mary Lutz - Last Filed: 05/26/16 15:42> - Past Medical History Anemia: Yes Asthma: Yes (SOB) Cancer: Yes Cardiac Disorders: Yes (chf, sudden ) CVA: Yes COPD: Yes CHF: Yes Diabetes: Yes Disorders: Yes (STONES) HTN: Yes Hypercholesterolemia: Yes Liver Disease: Yes (Fatty Liver) Psychiatric Problems: Yes (anxiety/depression) - Surgical History Cardiac Surgery: Yes (quad bypass) Orthopedic Surgery: Yes - Psycho/Social/Smoking Cessation Hx Anxiety: No Suicidal Ideation: No Smoking History: Current every day smoker Have you smoked in the past 12 months: Yes Number of Cigarettes Smoked Daily: 3 If you are a former smoker, when did you quit?: 2008 Information on smoking cessation initiated: No 'Breaking Loose' booklet given: 12/15/15 Hx Alcohol Use: No Drug/Substance Use Hx: No Substance Use Type: None Hx Substance Use Treatment: No <Sisi Arias - Last Filed: 05/26/16 20:24> - Past Medical History Allergies/Adverse Reactions: Allergies Allergy/AdvReac Type Severity Reaction Status Date / Time Iodinated Contrast Media - Allergy Verified 05/26/16 14:58 Oral and [Iodinated Contrast Media - IV Dye] raw fruits/vegetables Allergy Intermediate Rash Uncoded 05/26/16 14:58 iv contrast dye Allergy Uncoded 05/26/16 14:58 Home Medications: Ambulatory Orders Albuterol 2.5/Ipratropium 0.5 [Duoneb -] 1 neb NEB Q4H 05/09/15 Allopurinol [Zyloprim -] 100 mg PO DAILY 05/09/15 Aspirin [ASA -] 81 mg PO DAILY 05/09/15 Carvedilol [Coreg] 6.25 mg PO BID 05/09/15 Colchicine 0.6 mg PO ASDIR 05/09/15 Fluoxetine HCl [Prozac] 40 mg PO HS 05/09/15 Insulin Glargine,Hum.rec.anlog [Lantus (10mL VIAL) -] 70 units SQ AM 05/09/15 Liraglutide [Victoza -] 1.8 mg SQ DAILY@0700 05/09/15 Lisinopril [Zestril] 5 mg PO DAILY 05/09/15 Tamsulosin HCl [Flomax -] 0.4 mg PO DAILY 05/09/15 Trazodone HCl [Desyrel -] 50 mg PO BID 05/09/15 Sennosides/Docusate Sodium [Pericolace -] 1 tablet PO BID tablet 05/14/15 Lorazepam [Ativan] 0.5 tab PO HS 12/08/15 Rivaroxaban [Xarelto -] 20 mg PO DAILY 05/08/16 Atorvastatin Calcium 40 mg PO HS 05/09/16 Cholecalciferol (Vitamin D3) [Vitamin D -] 1,000 unit PO DAILY 05/09/16 Clotrimazole [Lotrimin -] 1 applic TP BID 05/09/16 Dexamethasone 4 mg PO 05/09/16 Famotidine/Ca Carb/Mag Hydrox [Pepcid Complete Tablet Chew] 1 each PO DAILY Ferrous Sulfate 325 mg PO DAILY 05/09/16 Gabapentin 100 mg PO DAILY 05/09/16 Insulin Regular, Human [Humulin R U-500 Kwikpen] 15 unit SQ TID 05/09/16 Silver Sulfadiazine 1% Top Cr [Silvadene -] 1 applic TP DAILY 05/09/16 Torsemide [Demadex -] 200 mg PO DAILY 05/09/16 Rivaroxaban [Xarelto -] 20 mg PO DAILY #30 tablet 05/22/16 Review of Systems - Review of Systems Able to Perform ROS?: Yes Comments:: 05/26/16 15:42 GENERAL/CONSTITUTIONAL: No fever or chills. No weakness. HEAD, EYES, EARS, NOSE AND THROAT: No change in vision. No ear pain or discharge. No sore throat. CARDIOVASCULAR: No chest pain. (+)shortness of breath RESPIRATORY: No cough, wheezing, or hemoptysis. GASTROINTESTINAL: No nausea, vomiting, diarrhea or constipation. (+)Distended abdomen, abdominal pain GENITOURINARY: No dysuria, frequency, or change in urination. (+)yeast infection MUSCULOSKELETAL: No joint or muscle swelling or pain. No neck or back pain. SKIN: No rash NEUROLOGIC: No headache, vertigo, loss of consciousness, or change in strength/ sensation. ENDOCRINE: No increased thirst. No abnormal weight change. HEMATOLOGIC/LYMPHATIC: No anemia, easy bleeding, or history of blood clots. ALLERGIC/IMMUNOLOGIC: No hives or skin allergy. <Mary Lutz - Last Filed: 05/26/16 15:42> *Physical Exam - Vital Signs Last Vital Signs Temp Pulse Resp BP Pulse Ox 98.1 F 76 24 114/59 92 L 05/26/16 14:55 05/26/16 14:55 05/26/16 14:55 05/26/16 14:55 05/26/16 14:55 <Mary Lutz - Last Filed: 05/26/16 15:42> - Vital Signs Last Vital Signs Temp Pulse Resp BP Pulse Ox 98.1 F 76 24 114/59 92 L 05/26/16 14:55 05/26/16 14:55 05/26/16 14:55 05/26/16 14:55 05/26/16 14:55 - Physical Exam Comments: GENERAL: Awake, alert, and fully oriented. +Mild tachypnea. HEAD: No signs of trauma EYES: PERRLA, EOMI, sclera anicteric, conjunctiva clear ENT: Auricles normal inspection, hearing grossly normal, nares patent, oropharynx clear without exudates. Moist mucosa NECK: Normal ROM, supple, no lymphadenopathy, JVD, or masses LUNGS: Breath sounds equal, clear to auscultation bilaterally. No wheezes, and no crackles HEART: Regular rate and rhythm, normal S1 and S2, no murmurs, rubs or gallops ABDOMEN: Soft, nontender, normoactive bowel sounds. No guarding, no rebound. No masses. +Edema to lower 1/3 of anterior abdominal wall. +Erythematous rash to the folds of the groin B/L. EXTREMITIES: Normal range of motion. 3+ BLE pitting edema. +Large dressings to the lower extremities B/L NEUROLOGICAL: Cranial nerves II through XII grossly intact. Normal speech. Gait assisted by walker. SKIN: Warm, Dry, normal turgor. +Groin rash as described above. <Sisi Arias - Last Filed: 05/26/16 20:24> ED Treatment Course - LABORATORY CBC & Chemistry Diagram: 05/26/16 16:14 05/26/16 16:14 <Sisi Arias - Last Filed: 05/26/16 20:24> Medical Decision Making - Medical Decision Making 05/26/16 15:33 Dr. Hoffman was paged and notified via phone service. <Mary Lutz - Last Filed: 05/26/16 15:42> - Medical Decision Making 05/26/16 17:[address] Rachel at 5pm shift change. Awaiting labs. Dr. Hoffman is currently in ED to evaluate and determine medication strategy. F/u labs, admit to hospitalist service for CHF. <Sisi Arias - Last Filed: 05/26/16 20:24> *DC/Admit/Observation/Transfer - Attestations Scribe Attestion: 05/26/16 15:44 Documentation prepared by Mary Lutz, acting as medical records administrator for Sisi Arias MD. <Mary Lutz - Last Filed: 05/26/16 15:42> <Sisi Arias - Last Filed: 05/26/16 20:24> Diagnosis at time of Disposition: Dyspnea on exertion CHF (congestive heart failure) Qualifiers: Congestive heart failure type: systolic Congestive heart failure chronicity: acute on chronic Qualified Code(s): I50.23 - Acute on chronic systolic ( congestive) heart failure CHF exacerbation Qualifiers: Congestive heart failure type: unspecified congestive heart failure type Qualified Code(s): I50.9 - Heart failure, unspecified CKD (chronic kidney disease) Qualifiers: Chronic kidney disease stage: stage 3 (moderate) Qualified Code(s): N18.3 - Chronic kidney disease, stage 3 (moderate) - Referrals
[2016-05-26 16:34] LABS: BASOPHIL 0.6 % (0-2.0); EOSINOPHIL 3.3 % (0-4.5); MCH 30.3 pg (25.7-33.7); MCHC 32.9 g/dl (32.0-35.9); MEAN CELL VOLUME 92.2 fl (80-96); MEAN PLT VOLUME 9.8 fl (7.5-11.1); NEUTROPHILS 75.9 % (42.8-82.8); PLATELET COUNT 123 K/MM3 (134-434); RDW 18.1 % (11.9-15.9); WHITE BLOOD COUNT 6.3 K/mm3 (4.0-10.0)
--- NOTE | 2016-05-26 16:34 | CON.CARD ---
Consult Consult Specialty:: Cardiology Referred by:: Emergency medicine Reason for Consultation:: CHF - History of Present Illness Chief Complaint: Dyspnea, anasarca History of Present Illness: Patient is a 61 year old white male with underlying history of ischemic cardiomyopathy and heart failure (NYHA class III-IV), history of CAD post DC, 4 vessel CABG, cardiac arrest post ICD, diabetes mellitus, home O2 dependent COPD , CVA, hepatitis B, gout, chronic renal insufficiency, right LE DVT. He presents to ED with increase in shortness of breath, orthopnea, anasarca without chest pain, PND, near or true syncope, palpitations, started on inotropic diuresis. He reports medication compliance with diet indiscretion with salt intake, no NSAID use. 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[employer]ICALS: Yes: CVA Cardio/Vascular: Yes: CAD, CHF (s/p defibrillator ), HTN, Other (Ischemic cardiomyopathy) Pulmonary: Yes: Cancer (undocumented cell type), COPD Renal/: Yes: Renal Failure Infectious Disease: Yes: Other (Chronic lower extremity bilateral cellulitis ) Endocrine: Yes: Diabetes Mellitus - Past Surgical History Past Surgical History: Yes: AICD, CABG - Alcohol/Substance Use Hx Alcohol Use: No History of Substance Use: reports: None - Smoking History Smoking history: Current every day smoker Have you smoked in the past 12 months: Yes Aproximately how many cigarettes per day: 3 If you are a former smoker, when did you quit?: 2008 - Social History Usual Living Arrangement: With Spouse 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 History of Recent Travel: No Home Medications - Allergies Allergies/Adverse Reactions: Allergies Allergy/AdvReac Type Severity Reaction Status Date / Time Iodinated Contrast Media - Allergy Verified 05/26/16 14:58 Oral and [Iodinated Contrast Media - IV Dye] raw fruits/vegetables Allergy Intermediate Rash Uncoded 05/26/16 14:58 iv contrast dye Allergy Uncoded 05/26/16 14:58 - Home Medications Home Medications: Ambulatory Orders Albuterol 2.5/Ipratropium 0.5 [Duoneb -] 1 neb NEB Q4H 05/09/15 Allopurinol [Zyloprim -] 100 mg PO DAILY 05/09/15 Aspirin [ASA -] 81 mg PO DAILY 05/09/15 Carvedilol [Coreg] 6.25 mg PO BID 05/09/15 Colchicine 0.6 mg PO ASDIR 05/09/15 Fluoxetine HCl [Prozac] 40 mg PO HS 05/09/15 Insulin Glargine,Hum.rec.anlog [Lantus (10mL VIAL) -] 70 units SQ AM 05/09/15 Liraglutide [Victoza -] 1.8 mg SQ DAILY@0700 05/09/15 Lisinopril [Zestril] 5 mg PO DAILY 05/09/15 Tamsulosin HCl [Flomax -] 0.4 mg PO DAILY 05/09/15 Trazodone HCl [Desyrel -] 50 mg PO BID 05/09/15 Sennosides/Docusate Sodium [Pericolace -] 1 tablet PO BID tablet 05/14/15 Lorazepam [Ativan] 0.5 tab PO HS 12/08/15 Rivaroxaban [Xarelto -] 20 mg PO DAILY 05/08/16 Atorvastatin Calcium 40 mg PO HS 05/09/16 Cholecalciferol (Vitamin D3) [Vitamin D -] 1,000 unit PO DAILY 05/09/16 Clotrimazole [Lotrimin -] 1 applic TP BID 05/09/16 Dexamethasone 4 mg PO 05/09/16 Famotidine/Ca Carb/Mag Hydrox [Pepcid Complete Tablet Chew] 1 each PO DAILY Ferrous Sulfate 325 mg PO DAILY 05/09/16 Gabapentin 100 mg PO DAILY 05/09/16 Insulin Regular, Human [Humulin R U-500 Kwikpen] 15 unit SQ TID 05/09/16 Silver Sulfadiazine 1% Top Cr [Silvadene -] 1 applic TP DAILY 05/09/16 Torsemide [Demadex -] 200 mg PO DAILY 05/09/16 Rivaroxaban [Xarelto -] 20 mg PO DAILY #30 tablet 05/22/16 Review of Systems - Review of Systems Cardiovascular: reports: Edema, Shortness of Breath Respiratory: reports: Orthopnea Vital Signs: Vital Signs Temperature 98.1 F 05/26/16 14:55 Pulse Rate 76 05/26/16 14:55 Respiratory Rate 24 04/14/17 14:55 Blood Pressure 114/59 04/14/17 14:55 O2 Sat by Pulse Oximetry (%) 92 L 05/26/16 14:55 Constitutional: Yes: No Distress, Calm Neck: Yes: Supple Respiratory: Yes: Regular, Diminished, On Nasal O2, Rales Gastrointestinal: Yes: Abdomen, Obese, Ascites, Distention Cardiovascular: Yes: Regular Rate and Rhythm JVD: Yes Carotid Bruit: No Heart Sounds: Yes: S1, S2 Murmur: Yes: Systolic Murmur, Grade 2 Edema: Yes Edema: LLE: 3+, RLE: 3+ - Other Data SR @ 85 RBBB, PVC Imaging - Results Chest X-ray: Report Reviewed (CHF) Problem List - Problems (1) ASHD (arteriosclerotic heart disease) Code(s): I25.10 - ATHSCL HEART DISEASE OF [place] CORONARY ARTERY W/O ANG PCTRS (2) Acute on chronic systolic and diastolic heart failure, NYHA class 4 Code(s): I50.43 - ACUTE ON CHRONIC COMBINED SYSTOLIC AND DIASTOLIC HRT FAIL (3) CKD (chronic kidney disease) Code(s): N18.9 - CHRONIC KIDNEY DISEASE, UNSPECIFIED Qualifiers: Chronic kidney disease stage: stage 3 (moderate) Qualified Code(s): N18.3 - Chronic kidney disease, stage 3 (moderate) (4) COPD (chronic obstructive pulmonary disease) Code(s): J44.9 - CHRONIC OBSTRUCTIVE PULMONARY DISEASE, UNSPECIFIED Qualifiers : COPD type: chronic bronchitis (5) Diabetes mellitus Code(s): E11.9 - TYPE 2 DIABETES MELLITUS WITHOUT COMPLICATIONS Qualifiers: Diabetes mellitus type: type 2 Diabetes mellitus complication status: with kidney complications Diabetes mellitus complication detail: with chronic kidney disease Diabetes mellitus mcc insulin use: with mcc use Chronic kidney disease stage: stage 4 (severe) Qualified Code(s): E11.22 - Type 2 diabetes mellitus with diabetic chronic kidney disease ; N18.1 - Chronic kidney disease, stage 1; Z79.4 - care home (current) use of insulin (6) Heart failure, systolic, with acute decompensation Code(s): I50.23 - ACUTE ON CHRONIC SYSTOLIC (CONGESTIVE) HEART FAILURE (7) Hx of CABG Code(s): Z95.1 - PRESENCE OF AORTOCORONARY BYPASS GRAFT (8) Ischemic cardiomyopathy Code(s): I25.5 - ISCHEMIC CARDIOMYOPATHY (9) S/P CABG (coronary artery bypass graft) Code(s): Z95.1 - PRESENCE OF AORTOCORONARY BYPASS GRAFT (10) Single implantable cardioverter-defibrillator (ICD) in situ Code(s): Z95.810 - PRESENCE OF AUTOMATIC (IMPLANTABLE) CARDIAC DEFIBRILLATOR (11) Type 2 diabetes mellitus with mild nonproliferative diabetic retinopathy without macular edema Code(s): E11.329 - TYPE 2 DIAB W MILD NONPRLF DIABETIC RTNOP W/O * DO NOT USE * Qualifiers: Diabetes mellitus mcc insulin use: with intermediate card tender use Assessment/Plan 12/07/2015 Transthoracic echocardiography revealed severe LV systolic dysfunction with global hypokinesia, mild MR, mild to moderate TR. moderate pulmonary HTN 1. Acute on chronic severe LV systolic failure with ischemic cardiomyopathy 2. CAD S/P CABG, angina pectoris 3. History of cardiac arrest post ICD 4. Home O2 dependent COPD with LLL infiltrates and pulmonary nodule 5. Type 2 diabetes mellitus 6. CVA 7. CKD 8. Morbid obesity 9. RLE DVT PLAN: 1. Initiate inodilator diuresis with monitor diuretic response, renal fxn and electrolytes 2. Continue Lisinopril 5 qd and monitor renal function. Hold Imdur 30 qd. May consider Entresto as outpatient. 3. Decrease Carvedilol 3.125 bid 4. Continue Xarelto 20 qPM, Lipitor 40 qhs 5. Thank you for consultative opportunity
[2016-05-26 17:01] LABS: INR 2.38 (0.82-1.09); PROTHROMBIN TIME (PATIENT) 26.7 SEC (9.98-11.88)
[2016-05-26] MEDS ORDERED: FUROSEMIDE 100 MG/10 ML INJECTABLE VIAL IVPB ONE (17:03)
[2016-05-26 17:10] LABS: BILIRUBIN,TOTAL 1.2 mg/dL (0.2-1.0); CALCIUM 8.3 mg/dL (8.5-10.1); COCKROFT - GAULT 78.24; CREATININE 1.8 mg/dL (0.7-1.3)
[2016-05-26] MEDS ORDERED: FUROSEMIDE 40 MG/4 ML INJECTABLE VIAL ONE (17:11)
[2016-05-26 17:14] LABS: TOT PROT 6.7 g/dl (6.4-8.2); TROPONIN I 0.05 ng/ml (0.00-0.05)
[2016-05-26] MEDS ORDERED: MILRINONE 20MG/100ML IVPB - 100 ML IVPB SCH (17:15)
[2016-05-26] MEDS ORDERED: FUROSEMIDE INJECTION 100 MG in SODIUM CHLORIDE 90 ML IVPB SCH ×3 (17:15→23:15)
--- NOTE | 2016-05-26 18:19 | HP ---
CHIEF COMPLAINT: shortness of breath and abdominal distention PCP: Dr. Lopez (not on service) HISTORY OF PRESENT ILLNESS: The patient is a 61 year old male presenting with family, who presents to the ED with shortness of breath and distended abdomen. Pt has noted fluid build up in his abdomen which has made it difficult for him to ambulate. He reports that his appetite has been fine in the last few days. According to cardiology pt is with a ischemic cardiomyopaty and class III-IV heart failure, CAD with past PR and DVT. Dr. Hoffman would like to start on inotropic diuresis at this time The patient denies any fever, chills, nausea, vomiting, or diarrhea. The patient denies any chest pain. PMD: Omar Mckeon MD ([place]) Curb Machine Operator: Ajay Gil MD ([place]) Curb Machine Operator: Dr. Pittman Retail Worker: Dr. Jammie Mendez Television Picture Tube Rebuilder: Dr. Castillo ER course was notable for: (1) Heart failure starting on inotropic diuressis Recent Travel: PAST MEDICAL HISTORY: past medical history of presumed lung CA, CHF, CKD, CVA, COPD, HTN, diabetes, HLD, fatty liver, anxiety and depression PAST SURGICAL HISTORY: Social History: Family History: Allergies Iodinated Contrast Media - Oral and [Iodinated Contrast Media - IV Dye] Allergy (Verified 05/26/16 14:58) raw fruits/vegetables Allergy (Intermediate, Uncoded 05/26/16 14:58) Rash CARROTS RASH iv contrast dye Allergy (Uncoded 05/26/16 14:58) HOME MEDICATIONS: Home Medications Medication Instructions Recorded Albuterol 2.5/Ipratropium 0.5 1 neb NEB Q4H 05/09/15 [Duoneb -] Allopurinol [Zyloprim -] 100 mg PO DAILY 05/09/15 Aspirin [ASA -] 81 mg PO DAILY 05/09/15 Carvedilol [Coreg] 6.25 mg PO BID 05/09/15 Colchicine 0.6 mg PO ASDIR 05/09/15 Fluoxetine HCl [Prozac] 40 mg PO HS 05/09/15 Insulin Glargine,Hum.rec.anlog 70 units SQ AM 05/09/15 [Lantus (10mL VIAL) -] Liraglutide [Victoza -] 1.8 mg SQ DAILY@0700 05/09/15 Lisinopril [Zestril] 5 mg PO DAILY 05/09/15 Tamsulosin HCl [Flomax -] 0.4 mg PO DAILY 05/09/15 Trazodone HCl [Desyrel -] 50 mg PO BID 05/09/15 Sennosides/Docusate Sodium 1 tablet PO BID tablet 05/14/15 [Pericolace -] Lorazepam [Ativan] 0.5 tab PO HS 12/08/15 Rivaroxaban [Xarelto -] 20 mg PO DAILY 05/08/16 Atorvastatin Calcium 40 mg PO HS 05/09/16 Cholecalciferol (Vitamin D3) 1,000 unit PO DAILY 05/09/16 [Vitamin D -] Clotrimazole [Lotrimin -] 1 applic TP BID 05/09/16 Dexamethasone 4 mg PO 05/09/16 Famotidine/Ca Carb/Mag Hydrox 1 each PO DAILY 05/09/16 [Pepcid Complete Tablet Chew] Ferrous Sulfate 325 mg PO DAILY 05/09/16 Gabapentin 100 mg PO DAILY 05/09/16 Insulin Regular, Human [Humulin R 15 unit SQ TID 05/09/16 U-500 Kwikpen] Silver Sulfadiazine 1% Top Cr 1 applic TP DAILY 05/09/16 [Silvadene -] Torsemide [Demadex -] 200 mg PO DAILY 05/09/16 Rivaroxaban [Xarelto -] 20 mg PO DAILY #30 tablet 05/22/16 REVIEW OF SYSTEMS CONSTITUTIONAL: Absent: fever, chills, diaphoresis, generalized weakness, malaise, loss of appetite, weight change HEENT: Absent: rhinorrhea, nasal congestion, throat pain, throat swelling, difficulty swallowing, mouth swelling, ear pain, eye pain, visual changes CARDIOVASCULAR: Absent: chest pain, syncope, palpitations, irregular heart rate, lightheadedness , peripheral edema RESPIRATORY: Absent: cough, shortness of breath, dyspnea with exertion, orthopnea, wheezing, stridor, hemoptysis GASTROINTESTINAL: Absent: abdominal pain, nausea, vomiting, diarrhea, constipation, melena, hematochezia with + abd distention causing diff breathing at times GENITOURINARY: Absent: dysuria, frequency, urgency, hesitancy, hematuria, flank pain, genital pain MUSCULOSKELETAL: Absent: myalgia, arthralgia, joint swelling, back pain, neck pain SKIN: Absent: rash, itching, pallor HEMATOLOGIC/IMMUNOLOGIC: Absent: easy bleeding, easy bruising, lymphadenopathy, frequent infections ENDOCRINE: Absent: unexplained weight gain, unexplained weight loss, heat intolerance, cold intolerance NEUROLOGIC: Absent: headache, focal weakness or paresthesias, dizziness, unsteady gait, seizure, mental status changes, bladder or bowel incontinence PSYCHIATRIC: Absent: anxiety, depression, suicidal or homicidal ideation, hallucinations. PHYSICAL EXAMINATION Vital Signs - 24 hr 05/26/16 14:55 Temperature 98.1 F Pulse Rate 76 Respiratory 24 Rate Blood Pressure 114/59 O2 Sat by Pulse 92 L Oximetry (%) GENERAL: Awake, alert, and fully oriented, in no acute distress. HEAD: Normal with no signs of trauma. EYES: Pupils equal, round and reactive to light, extraocular movements intact, sclera anicteric, conjunctiva clear. No lid lag. EARS, NOSE, THROAT: Ears normal, nares patent, oropharynx clear without exudates. Moist mucous membranes. NECK: Normal range of motion, supple without lymphadenopathy, JVD, or masses. LUNGS: Breath sounds equal, clear to auscultation bilaterally. No wheezes, and no crackles. No accessory muscle use. HEART: Regular rate and rhythm, normal S1 and S2 without murmur, rub or gallop. ABDOMEN: Soft, nontender, not distended, normoactive bowel sounds, no guarding, no rebound, no masses. No hepatomegaly or splenomegaly. MUSCULOSKELETAL: Normal range of motion at all joints. No bony deformities or tenderness. No CVA tenderness. UPPER EXTREMITIES: 2+ pulses, warm, well-perfused. No cyanosis. No clubbing. No peripheral edema. LOWER EXTREMITIES: 2+ pulses, warm, well-perfused. No calf tenderness. No peripheral edema. NEUROLOGICAL: Cranial nerves II-XII intact. Normal speech. Normal gait. PSYCHIATRIC: Cooperative. Good eye contact. Appropriate mood and affect. SKIN: Warm, dry, normal turgor, no rashes or lesions noted, normal capillary refill. Laboratory Results - last 24 hr 05/26/16 05/26/16 05/26/16 16:14 16:14 16:14 WBC 6.3 RBC 3.80 L Hgb 11.5 L Hct 35.0 L MCV 92.2 MCHC 32.9 RDW 18.1 H Plt Count 123 L MPV 9.8 Neutrophils % 75.9 Lymphocytes % 10.1 D Monocytes % 10.1 D Eosinophils % 3.3 D Basophils % 0.6 D INR 2.38 H D Sodium 141 Potassium 3.9 Chloride 100 Carbon Dioxide 35 H Anion Gap 6 L BUN 41 H D Creatinine 1.8 H Creat Clearance w eGFR 38.55 Random Glucose 100 D Calcium 8.3 L Total Bilirubin 1.2 H AST 24 ALT 34 D Alkaline Phosphatase 187 H Creatine Kinase 132 Troponin I 0.05 B-Natriuretic Peptide 8893.35 H Total Protein 6.7 Albumin 3.0 L ASSESSMENT/PLAN: This 61 yr old male with c/o sob and abd distention found to have lv dysfunction requiring inotropic support 1. LV dysfunction, inotropic support milnirone gtt -per cards, contiune lisinopril but hold imdur and decrease coreg 3.125 -will continue xarelto for dvt will continue lipitor for hld -labs pending in AM -appreciate cards input. 2. GI ppx Visit type - Emergency Visit Emergency Visit: Yes Care time: The patient presented to the Emergency Department on the above date and was hospitalized for further evaluation of their emergent condition. - New Patient This patient is new to me today: Yes Date on this admission: 05/26/16 - Critical Care Critical Care patient: No
--- NOTE | 2016-05-26 18:24 | PDOC ---
*Physical Exam - Vital Signs Last Vital Signs Temp Pulse Resp BP Pulse Ox 98.1 F 76 24 114/59 92 L 05/26/16 14:55 05/26/16 14:55 05/26/16 14:55 05/26/16 14:55 05/26/16 14:55 ED Treatment Course - LABORATORY CBC & Chemistry Diagram: 05/26/16 16:14 05/26/16 16:14 - ADDITIONAL ORDERS Additional order review: Laboratory Results 05/26/16 05/26/16 16:14 16:14 INR 2.38 H D Sodium 141 Potassium 3.9 Chloride 100 Carbon Dioxide 35 H Anion Gap 6 L BUN 41 H D Creatinine 1.8 H Creat Clearance w eGFR 38.55 Random Glucose 100 D Calcium 8.3 L Total Bilirubin 1.2 H AST 24 ALT 34 D Alkaline Phosphatase 187 H Creatine Kinase 132 Troponin I 0.05 B-Natriuretic Peptide 8893.35 H Total Protein 6.7 Albumin 3.0 L 05/26/16 16:14 RBC 3.80 L MCV 92.2 MCHC 32.9 RDW 18.1 H MPV 9.8 Neutrophils % 75.9 Lymphocytes % 10.1 D Monocytes % 10.1 D Eosinophils % 3.3 D Basophils % 0.6 D - Medications Given in the ED: ED Medications Discontinued Medications Generic Name Dose Route Start Last Admin Trade Name Michaelle PRN Reason Stop Dose Admin Furosemide 100 mg 05/26/16 17:03 05/26/16 17:22 Lasix Injection - IVPB 05/26/16 17:04 100 mg ONCE ONE Administration Medical Decision Making - Medical Decision Making 05/26/16 18:22 Sign-out received from outgoing Emergency Physician Dr. Arias Pt interviewed and examined Ancillary studies reviewed Case discussed in detail with oncoming Emergency Physician including history, physical exam and ancillary studies. CBC, BMP 05/26/16 16:14 05/26/16 16:14 CMP Sodium 141 mmol/L (136-145) 05/26/16 16:14 Potassium 3.9 mmol/L (3.5-5.1) 05/26/16 16:14 Chloride 100 mmol/L (98-107) 05/26/16 16:14 Carbon Dioxide 35 mmol/L (21-32) H 05/26/16 16:14 Anion Gap 6 (8-16) L 05/26/16 16:14 BUN 41 mg/dL (7-18) H D 05/26/16 16:14 Creatinine 1.8 mg/dL (0.7-1.3) H 05/26/16 16:14 Creat Clearance w eGFR 38.55 (>60) 05/26/16 16:14 Random Glucose 100 mg/dL (74-106) D 05/26/16 16:14 Calcium 8.3 mg/dL (8.5-10.1) L 05/26/16 16:14 Total Bilirubin 1.2 mg/dL (0.2-1.0) H 05/26/16 16:14 AST 24 U/L (15-37) 05/26/16 16:14 ALT 34 U/L (12-78) D 05/26/16 16:14 Alkaline Phosphatase 187 U/L (45-117) H 05/26/16 16:14 Creatine Kinase 132 IU/L (39-308) 05/26/16 16:14 Troponin I 0.05 ng/ml (0.00-0.05) 05/26/16 16:14 B-Natriuretic Peptide 8893.35 pg/ml (5-125) H 05/26/16 16:14 Total Protein 6.7 g/dl (6.4-8.2) 05/26/16 16:14 Albumin 3.0 g/dl (3.4-5.0) L 05/26/16 16:14 Case discussed with sharon hospitalist. Pt admitted under telemetry admission. Case discussed in detail with admitting physician including history, physical exam and ancillary studies. Admitting physician has assumed care for the patient, will follow all pending diagnostics and will complete the evaluation and treatment. *DC/Admit/Observation/Transfer Diagnosis at time of Disposition: CHF (congestive heart failure) Qualifiers: Congestive heart failure type: systolic Congestive heart failure chronicity: acute on chronic Qualified Code(s): I50.23 - Acute on chronic systolic ( congestive) heart failure - Discharge Dispostion Condition at time of disposition: Fair Admit: Yes - Referrals Referrals: STAFF,NOT ON [Primary Care Provider] - - Patient Instructions - Post Discharge Activity
[2016-05-26] MEDS ORDERED: ATORVASTATIN CA 40 MG TABLET (FP) PO SCH (22:00)
[2016-05-26] MEDS: NYSTATIN POWDER 100,000 UNITS/GM - 15 GM TOPICAL POWDER TP SCH (22:12)
[2016-05-26] MEDS: CARVEDILOL 3.125 MG TABLET (FP) PO SCH (22:50)
[2016-05-26] MEDS: ATORVASTATIN CA 40 MG TABLET (FP) PO SCH (22:50)
[2016-05-26] MEDS: ALBUTEROL SO4 2.5/IPRATROPIUM 0.5 INH SOL 3 ML VIAL.NEB. NEB SCH (23:00)
[2016-05-26] MEDS: FUROSEMIDE INJECTION 100 MG in SODIUM CHLORIDE 90 ML IVPB SCH (23:17)
[2016-05-26] MEDS: CLOTRIMAZOLE 1% CREAM 15 GM TUBE TP SCH (23:18)
[2016-05-27] MEDS ORDERED: ACETAMINOPHEN 325 MG TABLET (FP) PO ONE (05:25)
[2016-05-27] MEDS: ALBUTEROL SO4 2.5/IPRATROPIUM 0.5 INH SOL 3 ML VIAL.NEB. NEB SCH ×5 (05:50→22:59)
[2016-05-27] MEDS ORDERED: INSULIN DETEMIR 100 UNITS/ML MDV SQ ONE (05:57)
[2016-05-27] MEDS: INSULIN DETEMIR 100 UNITS/ML MDV SQ SCH (06:01)
[2016-05-27] MEDS: INSULIN (NOVOLOG) ASPART 100 UNITS/ML 10ML VIAL SQ SCH ×3 (06:01→18:26)
--- NOTE | 2016-05-27 08:09 | PN ---
Physical Exam: SUBJECTIVE: Patient seen and examined OBJECTIVE: Vital Signs Period Temp Pulse Resp BP Sys/Mcconnell Pulse Ox Last 24 Hr 97.6 F-98.1 F 74-159 18-26 78-132/50-85 98 GENERAL: The patient is awake, alert, and fully oriented, in no acute distress. HEAD: Normal with no signs of trauma. EYES: PERRL, extraocular movements intact, sclera anicteric, conjunctiva clear. No ptosis. ENT: Ears normal, nares patent, oropharynx clear without exudates, moist mucous membranes. NECK: Trachea midline, full range of motion, supple. LUNGS: Breath sounds equal, clear to auscultation bilaterally, no wheezes, no crackles, no accessory muscle use. HEART: Regular rate and rhythm, S1, S2 without murmur, rub or gallop. ABDOMEN: Soft, nontender, nondistended, normoactive bowel sounds, no guarding, no rebound, no hepatosplenomegaly, no masses. EXTREMITIES: 2+ pulses, warm, well-perfused, no edema. NEUROLOGICAL: Cranial nerves II through XII grossly intact. Normal speech, gait not observed. PSYCH: Normal mood, normal affect. SKIN: Warm, dry, normal turgor, no rashes or lesions noted Laboratory Results - last 24 hr 05/27/16 05:20 POC Glucometer 90 Active Medications Generic Name Dose Route Start Last Admin Trade Name Freq PRN Reason Stop Dose Admin Albuterol/Ipratropium 1 amp 05/26/16 22:00 05/27/16 05:50 Duoneb - NEB 1 amp Q4HWA MAGEN Administration Atorvastatin Calcium 40 mg 05/26/16 22:00 05/26/16 22:50 Lipitor - PO 40 mg HS MAGEN Administration Carvedilol 3.125 mg 05/26/16 22:00 05/26/16 22:50 Coreg - PO 3.125 mg BID MAGEN Administration Cholecalciferol 1,000 unit 05/27/16 10:00 Vitamin D3 - PO DAILY MAGEN Clotrimazole 1 applic 05/26/16 22:00 05/26/16 23:18 Lotrimin 1% Cream - TP Not Given BID MAGEN Dexamethasone 4 mg 05/27/16 10:00 Decadron - PO DAILY [facility] Gabapentin 100 mg 05/27/16 10:00 Neurontin - PO DAILY [facility] Furosemide 100 mg/ Sodium 100 mls @ 10 mls/hr 05/26/16 23:30 05/26/16 23:17 Chloride IVPB 10 mls/hr ASDIR [facility] Administration 10 MG/HR Insulin Aspart 15 units 05/27/16 07:00 05/27/16 06:01 Novolog Vial SQ Not Given TIDAC [facility] Insulin Detemir 70 units 05/27/16 07:00 05/27/16 06:01 Levemir Vial SQ Not Given AM [facility] Liraglutide 1.8 mg 05/27/16 07:00 Victoza - SQ DAILY@0700 [facility] Lisinopril 5 mg 05/27/16 10:00 Prinivil PO DAILY [facility] Nystatin 1 applic 05/26/16 17:15 05/26/16 22:12 Nystop Powder - TP Not Given DAILY [facility] Rivaroxaban 20 mg 05/27/16 10:00 Xarelto - PO DAILY [facility] Tamsulosin HCl 0.4 mg 05/27/16 08:30 Flomax - PO DAILY@0830 [facility] ASSESSMENT/PLAN: Patient is a 61 year old white male with underlying history of ischemic cardiomyopathy and heart failure (NYHA class III-IV), history of CAD post IL, 4 vessel CABG, cardiac arrest post ICD, diabetes mellitus, home O2 dependent COPD , CVA, hepatitis B, gout, chronic renal insufficiency, right LE DVT. He presents to ED with increase in shortness of breath, orthopnea, anasarca without chest pain, PND, near or true syncope, palpitations, started on inotropic diuresis. He reports medication compliance with diet indiscretion with salt intake, no NSAID use. 12/07/2015 Transthoracic echocardiography revealed severe LV systolic dysfunction with global hypokinesia, mild MR, mild to moderate TR. moderate pulmonary HTN 1. Acute on chronic severe LV systolic failure with ischemic cardiomyopathy 2. CAD S/P CABG, angina pectoris 3. History of cardiac arrest post ICD 4. Home O2 dependent COPD with LLL infiltrates and pulmonary nodule 5. Type 2 diabetes mellitus 6. CVA 7. CKD 8. Morbid obesity 9. RLE DVT PLAN: 1. Initiate inodilator diuresis with monitor diuretic response, renal fxn and electrolytes 2. Continue Lisinopril 5 qd and monitor renal function. Hold Imdur 30 qd. May consider Entresto as outpatient. 3. Decrease Carvedilol 3.125 bid 4. Continue Xarelto 20 qPM, Lipitor 40 qhs 5. Thank you for consultative opportunity
[2016-05-27 08:16] LABS: BASOPHIL 0.4 % (0-2.0); EOSINOPHIL 3.6 % (0-4.5); MCH 30.3 pg (25.7-33.7); MCHC 32.9 g/dl (32.0-35.9); MEAN CELL VOLUME 91.9 fl (80-96); MEAN PLT VOLUME 9.8 fl (7.5-11.1); NEUTROPHILS 75.9 % (42.8-82.8); PLATELET COUNT 115 K/MM3 (134-434); RDW 18.3 % (11.9-15.9)
[2016-05-27 08:36] LABS: INR 1.86 (0.82-1.09); PROTHROMBIN TIME (PATIENT) 20.7 SEC (9.98-11.88)
[2016-05-27 08:45] LABS: ALBUMIN 3.1 g/dl (3.4-5.0); CALCIUM 8.6 mg/dL (8.5-10.1)
[2016-05-27 08:51] LABS: BILIRUBIN,TOTAL 1.6 mg/dL (0.2-1.0); CREATININE 1.8 mg/dL (0.7-1.3); TOT PROT 6.6 g/dl (6.4-8.2); TROPONIN I 0.08 ng/ml (0.00-0.05)
[2016-05-27] MEDS: DEXAMETHASONE 4 MG TABLET (FP) PO SCH (09:26)
[2016-05-27] MEDS: CARVEDILOL 3.125 MG TABLET (FP) PO SCH ×2 (09:26→22:37)
[2016-05-27] MEDS: TAMSULOSIN HCL 0.4 MG CAP.ER.24H (FP) PO SCH (09:26)
[2016-05-27] MEDS: RIVAROXABAN 20 MG TABLET PO SCH (09:26)
[2016-05-27] MEDS: GABAPENTIN 100 MG CAPSULE (FP) PO SCH (09:27)
[2016-05-27] MEDS: CHOLECALCIFEROL (VITAMIN D3) 1,000 UNIT TABLET (FP) PO SCH (09:27)
[2016-05-27] MEDS: LISINOPRIL 5 MG TABLET (FP) PO SCH (09:27)
[2016-05-27] MEDS: NYSTATIN POWDER 100,000 UNITS/GM - 15 GM TOPICAL POWDER TP SCH (09:28)
[2016-05-27] MEDS: CLOTRIMAZOLE 1% CREAM 15 GM TUBE TP SCH (09:28)
[2016-05-27] MEDS ORDERED: RIVAROXABAN 20 MG TABLET PO SCH (10:00)
[2016-05-27] MEDS ORDERED: CARVEDILOL 6.25 MG TABLET (FP) PO SCH (10:00)
[2016-05-27] MEDS ORDERED: LISINOPRIL 5 MG TABLET (FP) PO SCH (10:00)
--- NOTE | 2016-05-27 11:55 | PN ---
Progress Note, Physician - Current Medication List Current Medications: Active Medications Albuterol/Ipratropium (Duoneb -) 1 amp NEB Q4HWA [facility] Last Admin: 05/27/16 11:46 Dose: 1 amp Atorvastatin Calcium (Lipitor -) 40 mg PO HS [facility] Last Admin: 05/26/16 22:50 Dose: 40 mg Carvedilol (Coreg -) 3.125 mg PO BID [facility] Last Admin: 05/27/16 09:26 Dose: 3.125 mg Cholecalciferol (Vitamin D3 -) 1,000 unit PO DAILY [facility] Last Admin: 05/27/16 09:27 Dose: 1,000 unit Clotrimazole (Lotrimin 1% Cream -) 1 applic TP BID [facility] Last Admin: 05/27/16 09:28 Dose: 1 applic Dexamethasone (Decadron -) 4 mg PO DAILY [facility] Last Admin: 05/27/16 09:26 Dose: 4 mg Gabapentin (Neurontin -) 100 mg PO DAILY [facility] Last Admin: 05/27/16 09:27 Dose: 100 mg Furosemide 100 mg/ Sodium (Chloride) 100 mls @ 10 mls/hr IVPB ASDIR [facility] PRN Reason: 10 MG/HR Last Admin: 05/26/16 23:17 Dose: 10 mls/hr Insulin Aspart (Novolog Vial) 15 units SQ TIDAC [facility] Last Admin: 05/27/16 11:04 Dose: 15 units Insulin Detemir (Levemir Vial) 70 units SQ AM [facility] Last Admin: 05/27/16 06:01 Dose: Not Given Liraglutide (Victoza -) 1.8 mg SQ DAILY@0700 [facility] Lisinopril (Prinivil) 5 mg PO DAILY [facility] Last Admin: 05/27/16 09:27 Dose: Not Given Nystatin (Nystop Powder -) 1 applic TP DAILY [facility] Last Admin: 05/27/16 09:28 Dose: Not Given Rivaroxaban (Xarelto -) 20 mg PO DAILY [facility] Last Admin: 05/27/16 09:26 Dose: 20 mg Tamsulosin HCl (Flomax -) 0.4 mg PO DAILY@0830 [facility] Last Admin: 05/27/16 09:26 Dose: 0.4 mg - Objective Vital Signs: Vital Signs Temperature 98 F 05/27/16 09:30 Pulse Rate 80 05/27/16 09:30 Respiratory Rate 20 05/27/16 09:30 Blood Pressure 115/48 05/27/16 09:30 O2 Sat by Pulse Oximetry (%) 98 05/26/16 23:00 Constitutional: Yes: Well Nourished, No Distress Eyes: Yes: WNL HENT: Yes: WNL Neck: Yes: WNL Respiratory: Yes: WNL Gastrointestinal: Yes: Abdomen, Obese, Ascites ...Rectal Exam: Yes: Deferred Genitourinary: Yes: WNL Musculoskeletal: Yes: WNL Extremities: Yes: WNL Edema: Yes Edema: LLE: 1+, RLE: 1+ Peripheral Pulses WNL: Yes Peripheral Pulses: Left Radial: 2+, Right Radial: 2+ Integumentary: Yes: WNL Neurological: Yes: WNL, Alert, Oriented ...Motor Strength: WNL Psychiatric: Yes: WNL, Alert, Oriented Labs: CBC, BMP 05/27/16 06:05 05/27/16 06:05 INR, PTT INR 1.86 (0.82-1.09) H 05/27/16 06:05 Problem List - Problems (1) CHF (congestive heart failure) Code(s): I50.9 - HEART FAILURE, UNSPECIFIED Qualifiers: Congestive heart failure type: systolic Congestive heart failure chronicity: acute on chronic Qualified Code(s): I50.23 - Acute on chronic systolic (congestive) heart failure Impression/Plan Impression/Plan: Assessment and Plan This 61 year old male with worsening epsiode of shortness of breath and distended abdomen. Pt has noted fluid build up in his abdomen which has made it difficult for him to ambulate. He reports that his appetite has been fine in the last few days. According to cardiology pt is with a ischemic cardiomyopaty and class III-IV heart failure, CAD with past DC and DVT. 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 1. 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 abdominal distention/ascities - ? GI liver consult for liver history -abd u/s Visit type - Emergency Visit Emergency Visit: No - New Patient This patient is new to me today: Yes Date on this admission: 05/27/16 - Critical Care Critical Care patient: No - Discharge Referral Referred to [facility] No
--- NOTE | 2016-05-27 12:34 | PN ---
Progress Note (short form) - Note Progress Note: Chief Complaint: Events noted, notes reveiewed, Dyspnea and anasarca persists History of Present Illness: Seen and examined on telemetry. Events noted, notes reveiewed, Dyspnea and anasarca persists Milrinone therapy D/C related to tachycardia, monitor reviewed probably SVT, cannot exclude paroxysmal atrial flutter, dose was not adjusted based to eGFR Echocardiography 12/07/2015 revealed severe LV systolic dysfunction with global hypokinesia, mild MR, mild to moderate TR. moderate pulmonary HTN Medications: Current Medications Albuterol/Ipratropium (Duoneb -) 1 amp NEB Q4HWA [facility] Last Admin: 05/27/16 11:46 Dose: 1 amp Atorvastatin Calcium (Lipitor -) 40 mg PO HS [facility] Last Admin: 05/26/16 22:50 Dose: 40 mg Carvedilol (Coreg -) 3.125 mg PO BID [facility] Last Admin: 05/27/16 09:26 Dose: 3.125 mg Cholecalciferol (Vitamin D3 -) 1,000 unit PO DAILY [facility] Last Admin: 05/27/16 09:27 Dose: 1,000 unit Clotrimazole (Lotrimin 1% Cream -) 1 applic TP BID [facility] Last Admin: 05/27/16 09:28 Dose: 1 applic Dexamethasone (Decadron -) 4 mg PO DAILY [facility] Last Admin: 05/27/16 09:26 Dose: 4 mg Gabapentin (Neurontin -) 100 mg PO DAILY [facility] Last Admin: 05/27/16 09:27 Dose: 100 mg Furosemide 100 mg/ Sodium (Chloride) 100 mls @ 10 mls/hr IVPB ASDIR [facility] PRN Reason: 10 MG/HR Last Admin: 05/26/16 23:17 Dose: 10 mls/hr Insulin Aspart (Novolog Vial) 15 units SQ TIDAC [facility] Last Admin: 05/27/16 11:04 Dose: 15 units Insulin Detemir (Levemir Vial) 70 units SQ AM [facility] Last Admin: 05/27/16 06:01 Dose: Not Given Liraglutide (Victoza -) 1.8 mg SQ DAILY@0700 [facility] Lisinopril (Prinivil) 5 mg PO DAILY [facility] Last Admin: 05/27/16 09:27 Dose: Not Given Nystatin (Nystop Powder -) 1 applic TP DAILY [facility] Last Admin: 05/27/16 09:28 Dose: Not Given Rivaroxaban (Xarelto -) 20 mg PO DAILY [facility] Last Admin: 05/27/16 09:26 Dose: 20 mg Tamsulosin HCl (Flomax -) 0.4 mg PO DAILY@0830 [facility] Last Admin: 05/27/16 09:26 Dose: 0.4 mg Review of Systems Constitutional: denies Chills or Fever Respiratory: reports: Dyspnea Cardiovascular: As noted above Gastrointestinal: denies Nausea, Vomiting, Diarrhea or Constipation or Abdominal Discomfort but reports Abdominal distention Genitourinary: No Symptoms Reported Musculoskeletal: No Symptoms Reported Vital Signs: Last Vital Signs Temp Pulse Resp BP Pulse Ox 98 F 80 20 115/48 98 05/27/16 09:30 05/27/16 09:30 05/27/16 09:30 05/27/16 09:30 05/26/16 23:00 Constitutional: No Distress, Calm Neck: Supple Positive JVD Respiratory: Diminished Breath Sounds at the Bases Cardiovascular: S1 S2 Regular Rate and Rhythm Grade 1-2/6 SM Gastrointestinal: Distented, Normal Bowel Sounds Ext: 2-3 + Bilateral Edema Assessment/Plan ASSESSMENT: 1. Acute on chronic class III-IV NYHA classification LV failure related to severe LV systolic dysfunction ischemic dilated cardiomyopathy 2. CAD post CABG, angina pectoris 3. History of cardiac arrest post ICD 4. PSVT cannot exclude paroxysmal atrial flutter 5. Diabetes mellitus 6. History of CVA 7. Home O2 dependent COPD 8. CKD 8. History of RLE DVT 9. Morbid obesity PLAN: 1. Initiate Dobutamine with caution and close monitoring of renal function and electrolytes 2. Continue Lasix drip and add Aldactone with caution and close monitoring of renal function and electrolytes 3. Continue Lisinopril with caution and close monitoring of renal function and electrolytes 4. Continue Coreg with caution in conjunction with Dobutamine, hemodynamics permitting 5. Consider Entresto therapy as outpatient 6. Continue Xarelto with caution 7. Continue Lipitor 8. Consideration for therapeutic paracentesis considring the above noted presentation, obtain abdominal U/S to assess severity of ascitic fluid Ashwin Pittman MD
[2016-05-27] MEDS: SPIRONOLACTONE 25 MG TABLET (FP) PO SCH ×2 (13:28→22:35)
--- NOTE | 2016-05-27 14:54 | CON.GI ---
Consult Consult Specialty:: GI Referred by:: Hospitalist Reason for Consultation:: Ascites - History of Present Illness Chief Complaint: I've been bloated for months History of Present Illness: 61M admitted for evaluation of abdominal bloating and SOB. Has significant cardiac dysfunction as well as renal insufficiency. Abdominal US revealed ascites. He is maintained on Xarelto for recent DVT as well as Aspirin 81mg once daily. He is on a lasix drip as well as dobutamine drip. Sarahi been asked to evaluate ascites. He denies a history of liver disease, IVDU, family history of liver disease, known exposure to viral hepatitis. He denies heavy ETOH use. 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 ef 15%), HTN, Other ( Ischemic cardiomyopathy) Pulmonary: Yes: Cancer (undocumented cell type), COPD Renal/: Yes: Renal Inusuff Heme/Onc: Yes: Other (DVT or RLE) Infectious Disease: Yes: Other (Chronic lower extremity bilateral cellulitis ) Endocrine: Yes: Diabetes Mellitus - Past Surgical History Past Surgical History: Yes: AICD, CABG Additional Surgical History: right mid-ear surgery - Alcohol/Substance Use Hx Alcohol Use: No History of Substance Use: reports: None - Smoking History Smoking history: Current every day smoker Have you smoked in the past 12 months: Yes Aproximately how many cigarettes per day: 3 If you are a former smoker, when did you quit?: 2008 - Social History Usual Living Arrangement: With Spouse ADL: Independent 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 History of Recent Travel: No Home Medications - Allergies Allergies/Adverse Reactions: Allergies Allergy/AdvReac Type Severity Reaction Status Date / Time Iodinated Contrast Media - Allergy Verified 05/26/16 14:58 Oral and [Iodinated Contrast Media - IV Dye] raw fruits/vegetables Allergy Intermediate Rash Uncoded 05/26/16 14:58 iv contrast dye Allergy Uncoded 05/26/16 14:58 - Home Medications Home Medications: Ambulatory Orders Albuterol 2.5/Ipratropium 0.5 [Duoneb -] 1 neb NEB Q4H 05/09/15 Allopurinol [Zyloprim -] 100 mg PO DAILY 05/09/15 Aspirin [ASA -] 81 mg PO DAILY 05/09/15 Carvedilol [Coreg] 6.25 mg PO BID 05/09/15 Colchicine 0.6 mg PO DAILY 05/09/15 Fluoxetine HCl [Prozac] 40 mg PO HS 05/09/15 Insulin Glargine,Hum.rec.anlog [Lantus (10mL VIAL) -] 70 units SQ AM 05/09/15 Liraglutide [Victoza -] 1.8 mg SQ DAILY@0700 05/09/15 Lisinopril [Zestril] 5 mg PO DAILY 05/09/15 Tamsulosin HCl [Flomax -] 0.4 mg PO DAILY 05/09/15 Trazodone HCl [Desyrel -] 50 mg PO BID 05/09/15 Sennosides/Docusate Sodium [Pericolace -] 1 tablet PO BID tablet 05/14/15 Atorvastatin Calcium 40 mg PO HS 05/09/16 Cholecalciferol (Vitamin D3) [Vitamin D -] 1,000 unit PO DAILY 05/09/16 Clotrimazole [Lotrimin -] 1 applic TP BID 05/09/16 Dexamethasone 4 mg PO TID 05/09/16 Famotidine/Ca Carb/Mag Hydrox [Pepcid Complete Tablet Chew] 1 each PO DAILY Ferrous Sulfate 325 mg PO DAILY 05/09/16 Gabapentin 100 mg PO DAILY 05/09/16 Insulin Regular, Human [Humulin R U-500 Kwikpen] 15 unit SQ TID 05/09/16 Silver Sulfadiazine 1% Top Cr [Silvadene -] 1 applic TP DAILY 05/09/16 Torsemide [Demadex -] 200 mg PO DAILY 05/09/16 Rivaroxaban [Xarelto -] 20 mg PO DAILY #30 tablet 05/22/16 Acetaminophen W/ Codeine #3 [Tylenol # 3 -] 1 tab PO Q6H PRN 05/26/16 Oxycodone HCl/Acetaminophen [Oxycodone-Acetaminophen 5-325] 1 each PO Q6H PRN Family Disease History - Family Disease History Family Disease History: Other: Father (alive: CAD), Mother (alive: healthy), Brother (2 brothers, 1 with CAD), Sister (1 sister, healthy) Other Family History: No family history of liver disease, colorectal cancer or other GI malignancy Review of Systems - Review of Systems Constitutional: denies: Unintentional Wgt. Loss Cardiovascular: reports: Edema. denies: Chest Pain Respiratory: reports: SOB Gastrointestinal: reports: Bloating. denies: Abdominal Pain, Constipation, Diarrhea, Rectal Bleeding, Vomiting Physical Exam-GI Vital Signs: Vital Signs Temperature 98 F 05/27/16 09:30 Pulse Rate 80 05/27/16 09:30 Respiratory Rate 20 05/27/16 09:30 Blood Pressure 115/48 05/27/16 09:30 O2 Sat by Pulse Oximetry (%) 98 05/26/16 23:00 Constitutional: Yes: Calm Eyes: No: Sclera Icterus Cardiovascular: Yes: Regular Rate and Rhythm, Murmur Respiratory: Yes: Diminished (at bases b/l) Gastrointestinal Inspection: Yes: Ascites (+ fluid wave, non tender, not tense ascites), Distention. No: Scars ...Auscultate: Yes: Normoactive Bowel Sounds ...Palpate: No: Tenderness ...Percussion: No: Tympanitic Edema: Yes (LE b/l with dressings ) Neurological: Yes: Alert, Oriented Labs: CBC, BMP 05/27/16 06:05 05/27/16 06:05 INR, PTT INR 1.86 (0.82-1.09) H 05/27/16 06:05 Hepatic Panel Total Bilirubin 1.6 mg/dL (0.2-1.0) H D 05/27/16 06:05 AST 22 U/L (15-37) 05/27/16 06:05 ALT 33 U/L (12-78) 05/27/16 06:05 Alkaline Phosphatase 202 U/L (45-117) H 05/27/16 06:05 Albumin 3.1 g/dl (3.4-5.0) L 05/27/16 06:05 Imaging - Results Ultrasound: Report Reviewed Problem List - Problems (1) Ascites Assessment/Plan: I suspect that Mr. 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 Management of eriberto will need to be clarified as he has recently diagnosed DVT. When paracentesis is performed a hepatic function panel should be ordered for the same day as well as sending fluid for cell count with differential, culture , total protein, albumin, amylase,glucose,LDH, AFB culture/smear, cytology. Cytology must be ordered by writing it in the chart and notifying the nurse as [facility] cannot be [facility]. hepatitis A/B/C serologies and Iron studies ordered Abdominal US to evaluate liver parenchyma Code(s): R18.8 - OTHER ASCITES Qualifiers: Ascites type: other type Qualified Code(s): R18.8 - Other ascites
[2016-05-27] MEDS: DOBUTAMINE 250 MG/D5W - 250 ML IV SCH ×2 (16:00→18:20)
[2016-05-27] MEDS ORDERED: DOBUTAMINE 250 MG/D5W - 250 ML IV SCH (18:22)
--- NOTE | 2016-05-27 18:25 | EKG ---
Test Reason : Blood Pressure : / mmHG Vent. Rate : 158 BPM Atrial Rate : 158 BPM P-R Int : 200 ms QRS Dur : 138 ms QT Int : 344 ms P-R-T Axes : 000 173 -60 degrees QTc Int : 557 ms PROBABLE ATRIAL FLUTTER WITH PREMATURE VENTRICULAR OR ABERRANTLY CONDUCTED COMPLEXES RIGHT BUNDLE BRANCH BLOCK ANTEROSEPTAL INFARCT (CITED ON OR BEFORE 07-DEC-2015) T WAVE ABNORMALITY, CONSIDER LATERAL ISCHEMIA ABNORMAL ECG WHEN COMPARED WITH ECG OF 26-MAY-2016 15:53, RHYTHM ANDERS ABOVE CLINICAL CORRELATION IS RECOMMENDED Confirmed by KELBY ALMAGUER MD ([id number]) on 05/27/2016 6:25:06 PM Referred By: Confirmed By:KELBY ALMAGUER MD
--- NOTE | 2016-05-27 18:29 | EKG ---
Test Reason : Blood Pressure : / mmHG Vent. 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
[2016-05-27] MEDS ORDERED: OXYCODONE/APAP 5/325MG COMBO TABLET PO PRN (21:02)
[2016-05-27] MEDS ORDERED: oxyCODONE HCL 5 MG TABLET ONE (21:08)
[2016-05-27] MEDS ORDERED: ACETAMINOPHEN 325 MG TABLET (FP) ONE (21:08)
[2016-05-27] MEDS: oxyCODONE HCL 5 MG TABLET PO PRN (21:36)
[2016-05-27] MEDS: ACETAMINOPHEN 325 MG TABLET (FP) PO PRN (21:38)
[2016-05-27] MEDS: ATORVASTATIN CA 40 MG TABLET (FP) PO SCH (22:35)
[2016-05-27] MEDS: FUROSEMIDE INJECTION 100 MG in SODIUM CHLORIDE 90 ML IVPB SCH (22:35)
[2016-05-28] MEDS: CLOTRIMAZOLE 1% CREAM 15 GM TUBE TP SCH ×3 (00:54→21:56)
[2016-05-28] MEDS: ALBUTEROL SO4 2.5/IPRATROPIUM 0.5 INH SOL 3 ML VIAL.NEB. NEB SCH ×5 (07:00→22:30)
[2016-05-28] MEDS: INSULIN (NOVOLOG) ASPART 100 UNITS/ML 10ML VIAL SQ SCH ×4 (07:35→16:30)
[2016-05-28 08:46] LABS: BASOPHIL 0.3 % (0-2.0); EOSINOPHIL 0.1 % (0-4.5); MCH 30.2 pg (25.7-33.7); MCHC 32.8 g/dl (32.0-35.9); MEAN CELL VOLUME 92.1 fl (80-96); MEAN PLT VOLUME 10.1 fl (7.5-11.1); NEUTROPHILS 86.9 % (42.8-82.8); PLATELET COUNT 102 K/MM3 (134-434); WHITE BLOOD COUNT 5.5 K/mm3 (4.0-10.0)
[2016-05-28] MEDS: INSULIN DETEMIR 100 UNITS/ML MDV SQ SCH (09:00)
[2016-05-28] MEDS: oxyCODONE HCL 5 MG TABLET PO PRN ×3 (09:02→22:24)
[2016-05-28] MEDS: CARVEDILOL 3.125 MG TABLET (FP) PO SCH ×2 (09:02→21:55)
[2016-05-28] MEDS: GABAPENTIN 100 MG CAPSULE (FP) PO SCH (09:03)
[2016-05-28] MEDS: DEXAMETHASONE 4 MG TABLET (FP) PO SCH (09:03)
[2016-05-28] MEDS: TAMSULOSIN HCL 0.4 MG CAP.ER.24H (FP) PO SCH (09:03)
[2016-05-28] MEDS: CHOLECALCIFEROL (VITAMIN D3) 1,000 UNIT TABLET (FP) PO SCH (09:03)
[2016-05-28] MEDS: SPIRONOLACTONE 25 MG TABLET (FP) PO SCH ×2 (09:03→21:55)
[2016-05-28 09:19] LABS: CALCIUM 8.3 mg/dL (8.5-10.1); COCKROFT - GAULT 84.9; CREATININE 1.7 mg/dL (0.7-1.3)
[2016-05-28] MEDS ORDERED: PT OWN MED DRAWER 7, Y5N ONE (10:26)
--- NOTE | 2016-05-28 11:05 | PN ---
Progress Note (short form) - Note Progress Note: Chief Complaint: Events noted, notes reviewed, Dyspnea and anasarca persists, no significant weight loss noted despite adequate diuresis with Dobutamine and Lasix drips History of Present Illness: Seen and examined on telemetry. Events noted, notes reviewed, Dyspnea and anasarca persists, no significant weight loss noted despite adequate diuresis with Dobutamine and Lasix drips Plan to proceed with therapeutic paracentesis, discussed in detail with the GI service, Xarelto to be withheld pending procedure As outlined in yestserday's note Milrinone therapy was D/C related to tachycardia, monitor reviewed probably SVT, cannot exclude paroxysmal atrial flutter, dose was not adjusted based to eGFR Echocardiography 12/07/2015 revealed severe LV systolic dysfunction with global hypokinesia, mild MR, mild to moderate TR. moderate pulmonary HTN Medications: Current Medications Acetaminophen (Tylenol -) 325 mg PO Q6H PRN PRN Reason: PAIN Last Admin: 05/27/16 21:38 Dose: 325 mg Albuterol/Ipratropium (Duoneb -) 1 amp NEB Q4HWA [facility] Last Admin: 05/28/16 10:41 Dose: 1 amp Atorvastatin Calcium (Lipitor -) 40 mg PO HS [facility] Last Admin: 05/27/16 22:35 Dose: 40 mg Carvedilol (Coreg -) 3.125 mg PO BID [facility] Last Admin: 05/28/16 09:02 Dose: 3.125 mg Cholecalciferol (Vitamin D3 -) 1,000 unit PO DAILY [facility] Last Admin: 05/28/16 09:03 Dose: 1,000 unit Clotrimazole (Lotrimin 1% Cream -) 1 applic TP BID [facility] Last Admin: 05/28/16 00:54 Dose: 1 applic Dexamethasone (Decadron -) 4 mg PO DAILY [facility] Last Admin: 05/28/16 09:03 Dose: 4 mg Gabapentin (Neurontin -) 100 mg PO DAILY [facility] Last Admin: 05/28/16 09:03 Dose: 100 mg Furosemide 100 mg/ Sodium (Chloride) 100 mls @ 10 mls/hr IVPB ASDIR [facility] PRN Reason: 10 MG/HR Last Admin: 05/27/16 22:35 Dose: 10 mls/hr Dobutamine HCl/Dextrose (Dobutamine 250 Mg/D5w -) 250 mls @ 39 mls/hr IV TITR MAGEN; 5 MCG/KG/MIN PRN Reason: Protocol Last Titration: 05/28/16 00:20 Dose: 5 mcg/kg/min Insulin Aspart (Novolog Vial) 15 units SQ TIDAC [facility] Last Admin: 05/27/16 18:26 Dose: 15 units Insulin Detemir (Levemir Vial) 70 units SQ AM [facility] Last Admin: 05/27/16 06:01 Dose: Not Given Liraglutide (Victoza -) 1.8 mg SQ DAILY@0700 [facility] Lisinopril (Prinivil) 5 mg PO DAILY [facility] Last Admin: 05/27/16 09:27 Dose: Not Given Nystatin (Nystop Powder -) 1 applic TP DAILY [facility] Last Admin: 05/27/16 09:28 Dose: Not Given Oxycodone HCl (Roxicodone -) 5 mg PO Q6H PRN PRN Reason: PAIN Last Admin: 05/28/16 09:02 Dose: 5 mg Rivaroxaban (Xarelto -) 20 mg PO DAILY [facility] Last Admin: 05/27/16 09:26 Dose: 20 mg Spironolactone (Aldactone -) 25 mg PO BID [facility] Last Admin: 05/28/16 09:03 Dose: 25 mg Tamsulosin HCl (Flomax -) 0.4 mg PO DAILY@0830 [facility] Last Admin: 05/28/16 09:03 Dose: 0.4 mg Review of Systems Constitutional: denies Chills or Fever Respiratory: reports: Dyspnea Cardiovascular: As noted above Gastrointestinal: denies Nausea, Vomiting, Diarrhea or Constipation or Abdominal Discomfort but reports Abdominal distention Genitourinary: No Symptoms Reported Musculoskeletal: Right shoulder pain Vital Signs: Last Vital Signs Temp Pulse Resp BP Pulse Ox 967.7 F H 84 20 142/56 94 L 05/28/16 05:43 05/28/16 05:43 05/28/16 05:43 05/28/16 05:43 05/27/16 21:00 Intake & Output 05/25/16 05/26/16 05/27/16 05/28/16 23:59 23:59 23:59 23:59 Intake Total 820 920 Output Total 4106 0629 Balance -4019 -494 Weight 283 lb 286 lb 9.6 oz 290 lb Constitutional: No Distress, Calm Neck: Supple Positive JVD Respiratory: Diminished Breath Sounds at the Bases Cardiovascular: S1 S2 Regular Rate and Rhythm Grade 1-2/6 SM Gastrointestinal: Distented, Normal Bowel Sounds Ext: 2-3 + Bilateral Edema Labs: CBC, BMP 05/28/16 06:20 05/28/16 06:20 Hepatic Panel Total Bilirubin 1.6 mg/dL (0.2-1.0) H D 05/27/16 06:05 AST 22 U/L (15-37) 05/27/16 06:05 ALT 33 U/L (12-78) 05/27/16 06:05 Alkaline Phosphatase 202 U/L (45-117) H 05/27/16 06:05 Albumin 3.1 g/dl (3.4-5.0) L 05/27/16 06:05 INR, PTT INR 1.86 (0.82-1.09) H 05/27/16 06:05 Assessment/Plan ASSESSMENT: 1. Acute on chronic class III-IV NYHA classification LV failure related to severe LV systolic dysfunction ischemic dilated cardiomyopathy, resolving clinically 2. CAD post CABG, angina pectoris 3. History of cardiac arrest post ICD 4. PSVT cannot exclude paroxysmal atrial flutter [id number] score of 5 5. Ascitis related to above, cannot exclude chronic liver disease, cardiac cirrhosis 6. Diabetes mellitus 7. History of CVA 8. Home O2 dependent COPD 9. CKD 10. History of RLE DVT 11. Morbid obesity PLAN: 1. Continue Dobutamine with caution and close monitoring of renal function and electrolytes 2. Continue Lasix drip and Aldactone with caution and close monitoring of renal function and electrolytes 3. Continue Lisinopril with caution and close monitoring of renal function and electrolytes 4. Continue Coreg with caution in conjunction with Dobutamine, hemodynamics permitting 5. Consider Entresto therapy as outpatient 6. Hold Xarelto pending therapeutic paracentesis 7. Continue Lipitor 8. To proceed with therapeutic paracentesis considering the above noted presentation Ashwin Pittman MD
--- NOTE | 2016-05-28 11:18 | PN ---
Progress Note (short form) - Note Progress Note: Dru has been held. For paracentesis when appropriate per Interventional radiology. Caution taking too much fluid in the setting of his renal insufficiency therefore would limit to 5-6 liters. The patient has end stage heart disease. fluid management will be difficult despite paracentesis and may likely need repeated procedures. Problem List - Problems (1) Ascites Code(s): R18.8 - OTHER ASCITES Qualifiers: Ascites type: other type Qualified Code(s): R18.8 - Other ascites
[2016-05-28] MEDS: NYSTATIN POWDER 100,000 UNITS/GM - 15 GM TOPICAL POWDER TP SCH (11:57)
[2016-05-28] MEDS: LISINOPRIL 5 MG TABLET (FP) PO SCH (11:58)
[2016-05-28] MEDS: LIRAGLUTIDE 0.6 MG/0.1 ML PEN.INJCTR SQ SCH (12:01)
[2016-05-28] MEDS: RIVAROXABAN 20 MG TABLET PO SCH (12:12)
--- NOTE | 2016-05-28 13:54 | PN ---
Progress Note (short form) - Note Progress Note: Abd US revealed hepatosplenomegaly. Consider hematology evaluation Problem List - Problems (1) Ascites Code(s): R18.8 - OTHER ASCITES Qualifiers: Ascites type: other type Qualified Code(s): R18.8 - Other ascites
[2016-05-28] MEDS: DOBUTAMINE HCL 250,000 MCG in SODIUM CHLORIDE 230 ML IV SCH (16:52)
--- NOTE | 2016-05-28 17:50 | PN ---
Physical Exam: SUBJECTIVE: Patient seen and examined. OBJECTIVE: Vital Signs Period Temp Pulse Resp BP Sys/Mcconnell Pulse Ox Last 24 Hr 97.8 F-967.7 F 84-94 20-20 115-145/54-85 94 GENERAL: The patient is awake, alert, and fully oriented, in no acute distress. HEAD: Normal with no signs of trauma. LUNGS: Breath sounds equal, clear to auscultation bilaterally, no wheezes, no crackles HEART: Regular rate and rhythm, S1, S2 without murmur, rub or gallop. ABDOMEN: Soft, nontender, distended, normoactive bowel sounds, no guarding, no rebound EXTREMITIES: 2+ pulses, warm, well-perfused, 3+ b/l LE edema; legs wrapped, wounds not visualized today NEUROLOGICAL: Cranial nerves II through XII grossly intact. Normal speech, gait not observed. Laboratory Results - last 24 hr 05/27/16 05/27/16 05/28/16 18:22 21:34 05:34 WBC RBC Hgb Hct MCV MCHC RDW Plt Count MPV Neutrophils % Lymphocytes % Monocytes % Eosinophils % Basophils % Sodium Potassium Chloride Carbon Dioxide Anion Gap BUN Creatinine POC Glucometer 322 336 314 Random Glucose Calcium Ferritin 05/28/16 05/28/16 05/28/16 06:20 06:20 06:20 WBC 5.5 RBC 3.60 L Hgb 10.9 L Hct 33.2 L MCV 92.1 MCHC 32.8 RDW 18.0 H Plt Count 102 L MPV 10.1 Neutrophils % 86.9 H Lymphocytes % 5.1 L D Monocytes % 7.6 Eosinophils % 0.1 D Basophils % 0.3 Sodium 140 Potassium 3.9 Chloride 97 L Carbon Dioxide 32 Anion Gap 11 BUN 39 H Creatinine 1.7 H POC Glucometer Random Glucose 298 H D Calcium 8.3 L Ferritin 143.360 05/28/16 05/28/16 11:53 16:31 WBC RBC Hgb Hct MCV MCHC RDW Plt Count MPV Neutrophils % Lymphocytes % Monocytes % Eosinophils % Basophils % Sodium Potassium Chloride Carbon Dioxide Anion Gap BUN Creatinine POC Glucometer 333 363 Random Glucose Calcium Ferritin Active Medications Generic Name Dose Route Start Last Admin Trade Name Freq PRN Reason Stop Dose Admin Acetaminophen 325 mg 05/27/16 21:07 05/27/16 21:38 Tylenol - PO 325 mg Q6H PRN Administration PAIN Albuterol/Ipratropium 1 amp 05/26/16 22:00 05/28/16 14:00 Duoneb - NEB 1 amp Q4HWA MAGEN Administration Atorvastatin Calcium 40 mg 05/26/16 22:00 05/27/16 22:35 Lipitor - PO 40 mg HS [facility] Administration Carvedilol 3.125 mg 05/26/16 22:00 05/28/16 09:02 Coreg - PO 3.125 mg BID [facility] Administration Cholecalciferol 1,000 unit 05/27/16 10:00 05/28/16 09:03 Vitamin D3 - PO 1,000 unit DAILY [facility] Administration Clotrimazole 1 applic 05/26/16 22:00 05/28/16 11:57 Lotrimin 1% Cream - TP 1 applic BID [facility] Administration Dexamethasone 4 mg 05/27/16 10:00 05/28/16 09:03 Decadron - PO 4 mg DAILY [facility] Administration Gabapentin 100 mg 05/27/16 10:00 05/28/16 09:03 Neurontin - PO 100 mg DAILY [facility] Administration Furosemide 100 mg/ Sodium 100 mls @ 10 mls/hr 05/26/16 23:30 05/27/16 22:35 Chloride IVPB 10 mls/hr ASDIR [facility] Administration 10 MG/HR Dobutamine HCl 250,000 mcg/ 250 mls @ 39.46 mls/hr 05/28/16 17:00 Sodium Chloride IV ASDIR MAG[facility] Protocol 5 MCG/KG/MIN Insulin Detemir 70 units 05/27/16 07:00 05/28/16 09:00 Levemir Vial SQ 70 units AM [facility] Administration Liraglutide 1.8 mg 05/27/16 07:00 05/28/16 12:01 Victoza - SQ 1.8 mg DAILY@0700 [facility] Administration Lisinopril 5 mg 05/27/16 10:00 05/28/16 11:58 Prinivil PO 5 mg DAILY [facility] Administration Non-Formulary Medication 30 each 05/28/16 17:41 Patient's Own Med SQ TID [facility] Nystatin 1 applic 05/26/16 17:15 05/28/16 11:57 Nystop Powder - TP 1 applic DAILY [facility] Administration Oxycodone HCl 5 mg 05/27/16 21:07 05/28/16 16:30 Roxicodone - PO 5 mg Q6H PRN Administration PAIN Spironolactone 25 mg 05/27/16 13:30 05/28/16 09:03 Aldactone - PO 25 mg BID [facility] Administration Tamsulosin HCl 0.4 mg 05/27/16 08:30 05/28/16 09:03 Flomax - PO 0.4 mg DAILY@0830 [facility] Administration Imaging 11/2015 Echo: severe LV dysfunction with global hypokinesis; mild MR; mild to moderate TR; moderate pHTN 05/26/16 CXR: congestive changes 05/27/16 US abdomen: significant ascites ASSESSMENT/PLAN 61 year-old man with a PMH of HTN, HLD, ischemic dilated cardiomyopathy, systolic heart failure s/p PPM/AICD, CAD s/p CABG, h/o DVT, CVA, COPD on home O2 , CKD, uncontrolled IDDM, and lung cancer. Acute on chronic systolic heart failure Ischemic dilated cardiomyoathy CAD s/p CABG --continue dobutamine and lasix drips per cardiology orders --continue aldactone Hypertension --continue lisinopril, coreg Hyperlipidemia --continue Lipitor PSVT cannot exclude paroxysmal atrial flutter [id number] score of 5 h/o DVT --hold Xarelto pending possible therapeutic paracentesis Ascites --therapeutic paracentesis under consideration --GI following --IR consult entered IDDM --pharmacy profile obtained for patient's home med: Humalin R-U500, 30U TID before meals --continue Levemir --continue Victoza CKD --Cr 1.7 which is baseline COPD oxygen dependent --continue decadron --duonebs Chronic venous stasis ulcers bilateral lower extremities --followed regularly at wound center on 5th floor --daily compression wrapping F/E/N Fluids: PO intake adequate Electrolytes: replete as indicated Nutrition: diabetic low sodium DVT prophylaxis: Xarelto on hold; oob, ambulation Visit type - Emergency Visit Emergency Visit: Yes ED Registration Date: 05/26/16 Care time: The patient presented to the Emergency Department on the above date and was hospitalized for further evaluation of their emergent condition. - New Patient This patient is new to me today: Yes Date on this admission: 05/28/16 - Critical Care Critical Care patient: No
[2016-05-28] MEDS: ATORVASTATIN CA 40 MG TABLET (FP) PO SCH (21:55)
[2016-05-28] MEDS: ACETAMINOPHEN 325 MG TABLET (FP) PO PRN (22:25)
[2016-05-28] MEDS: FUROSEMIDE INJECTION 100 MG in SODIUM CHLORIDE 90 ML IVPB SCH (23:28)
[2016-05-29] MEDS: ALBUTEROL SO4 2.5/IPRATROPIUM 0.5 INH SOL 3 ML VIAL.NEB. NEB SCH ×5 (06:00→22:00)
[2016-05-29 06:06] LABS: SERUM IRON 41 ug/dL (38-169); TOTAL IRON BINDING CAPACITY 234 ug/dL (250-450); UIBC 193 ug/dL (111-343)
[2016-05-29] MEDS: LIRAGLUTIDE 0.6 MG/0.1 ML PEN.INJCTR SQ SCH (06:28)
[2016-05-29] MEDS: HUMULIN R U SQ SCH ×3 (06:29→18:09)
[2016-05-29] MEDS: INSULIN DETEMIR 100 UNITS/ML MDV SQ SCH (06:29)
[2016-05-29 07:07] LABS: BASOPHIL 0.1 % (0-2.0); EOSINOPHIL 0.4 % (0-4.5); MCH 30.1 pg (25.7-33.7); MCHC 32.3 g/dl (32.0-35.9); MEAN CELL VOLUME 93.3 fl (80-96); MEAN PLT VOLUME 10.2 fl (7.5-11.1); NEUTROPHILS 83.9 % (42.8-82.8); PLATELET COUNT 103 K/MM3 (134-434); RDW 18.5 % (11.9-15.9); WHITE BLOOD COUNT 6.1 K/mm3 (4.0-10.0)
[2016-05-29 07:47] LABS: CALCIUM 8.8 mg/dL (8.5-10.1); COCKROFT - GAULT 89.7; CREATININE 1.6 mg/dL (0.7-1.3)
[2016-05-29] MEDS: ACETAMINOPHEN 325 MG TABLET (FP) PO PRN ×2 (08:33→21:36)
[2016-05-29] MEDS: TAMSULOSIN HCL 0.4 MG CAP.ER.24H (FP) PO SCH (08:33)
[2016-05-29] MEDS: oxyCODONE HCL 5 MG TABLET PO PRN ×2 (08:34→21:36)
--- NOTE | 2016-05-29 08:46 | PN ---
Progress Note (short form) - Note Progress Note: Chief Complaint: Events noted, notes reviewed, Dyspnea and anasarca persists, remains on Dobutamine and Lasix drips History of Present Illness: Seen and examined on telemetry. Events noted, notes reviewed, Dyspnea and anasarca persists, remains on Dobutamine and Lasix drips Recurrent SVT, paroxysmal atrial flutter cannot be excluded Plan to proceed with therapeutic paracentesis today schedule permitting, Xarelto therpay remains on hold pending procedure As outlined in prior notes Milrinone therapy was D/C related to tachycardia, monitor reviewed probably SVT, cannot exclude paroxysmal atrial flutter, dose was not adjusted based to eGFR Echocardiography 12/07/2015 revealed severe LV systolic dysfunction with global hypokinesia, mild MR, mild to moderate TR. moderate pulmonary HTN Medications: Current Medications Acetaminophen (Tylenol -) 325 mg PO Q6H PRN PRN Reason: PAIN Last Admin: 05/28/16 22:25 Dose: 325 mg Albuterol/Ipratropium (Duoneb -) 1 amp NEB Q4HWA [facility] Last Admin: 05/29/16 06:00 Dose: 1 amp Atorvastatin Calcium (Lipitor -) 40 mg PO HS [facility] Last Admin: 05/28/16 21:55 Dose: 40 mg Carvedilol (Coreg -) 3.125 mg PO BID [facility] Last Admin: 05/28/16 21:55 Dose: 3.125 mg Cholecalciferol (Vitamin D3 -) 1,000 unit PO DAILY [facility] Last Admin: 05/28/16 09:03 Dose: 1,000 unit Clotrimazole (Lotrimin 1% Cream -) 1 applic TP BID [facility] Last Admin: 05/28/16 21:56 Dose: 1 applic Dexamethasone (Decadron -) 4 mg PO DAILY [facility] Last Admin: 05/28/16 09:03 Dose: 4 mg Gabapentin (Neurontin -) 100 mg PO DAILY [facility] Last Admin: 05/28/16 09:03 Dose: 100 mg Furosemide 100 mg/ Sodium (Chloride) 100 mls @ 10 mls/hr IVPB ASDIR [facility] PRN Reason: 10 MG/HR Last Admin: 05/28/16 23:28 Dose: 10 mls/hr Dobutamine HCl 250,000 mcg/ (Sodium Chloride) 250 mls @ 39.46 mls/hr IV ASDIR MAGEN; 5 MCG/KG/MIN PRN Reason: Protocol Last Admin: 05/28/16 16:52 Dose: 39.46 mls/hr Insulin Detemir (Levemir Vial) 70 units SQ AM [facility] Last Admin: 05/29/16 06:29 Dose: 70 units Liraglutide (Victoza -) 1.8 mg SQ DAILY@0700 [facility] Last Admin: 05/29/16 06:28 Dose: 1.8 mg Lisinopril (Prinivil) 5 mg PO DAILY [facility] Last Admin: 05/28/16 11:58 Dose: 5 mg Humulin R U-500 Pen (- Patient Own Med) 30 each SQ TIDAC [facility] Last Admin: 05/29/16 06:29 Dose: 30 each Nystatin (Nystop Powder -) 1 applic TP DAILY [facility] Last Admin: 05/28/16 11:57 Dose: 1 applic Oxycodone HCl (Roxicodone -) 5 mg PO Q6H PRN PRN Reason: PAIN Last Admin: 05/28/16 22:24 Dose: 5 mg Spironolactone (Aldactone -) 25 mg PO BID [facility] Last Admin: 05/28/16 21:55 Dose: 25 mg Tamsulosin HCl (Flomax -) 0.4 mg PO DAILY@0830 [facility] Last Admin: 05/28/16 09:03 Dose: 0.4 mg Review of Systems Constitutional: denies Chills or Fever Respiratory: reports: Dyspnea Cardiovascular: As noted above Gastrointestinal: denies Nausea, Vomiting, Diarrhea or Constipation or Abdominal Discomfort but reports Abdominal distention Genitourinary: No Symptoms Reported Musculoskeletal: Right shoulder pain Vital Signs: Last Vital Signs Temp Pulse Resp BP Pulse Ox 98.2 F 92 H 18 138/52 96 05/29/16 06:00 05/29/16 06:00 05/29/16 06:00 05/29/16 06:00 05/28/16 23:00 Intake & Output 05/26/16 05/27/16 05/28/16 05/29/16 23:59 23:59 23:59 23:59 Intake Total 820 1720 742.8 Output Total 2375 3575 600 Balance -1555 -1855 142.8 Weight 283 lb 286 lb 9.6 oz 290 lb 288 lb 6 oz Constitutional: No Distress, Calm Neck: Supple Positive JVD Respiratory: Diminished Breath Sounds at the Bases Cardiovascular: S1 S2 Regular Rate and Rhythm Grade 1-2/6 SM Gastrointestinal: Distented, Normal Bowel Sounds Ext: 2-3 + Bilateral Edema Labs: CBC, BMP 05/29/16 05:35 05/29/16 05:35 Hepatic Panel Total Bilirubin 1.6 mg/dL (0.2-1.0) H D 05/27/16 06:05 AST 22 U/L (15-37) 05/27/16 06:05 ALT 33 U/L (12-78) 05/27/16 06:05 Alkaline Phosphatase 202 U/L (45-117) H 05/27/16 06:05 Albumin 3.1 g/dl (3.4-5.0) L 05/27/16 06:05 INR, PTT INR 1.86 (0.82-1.09) H 05/27/16 06:05 Assessment/Plan ASSESSMENT: 1. Acute on chronic class III-IV NYHA classification LV failure related to severe LV systolic dysfunction ischemic dilated cardiomyopathy, resolving clinically 2. CAD post CABG, angina pectoris 3. History of cardiac arrest post ICD 4. PSVT cannot exclude paroxysmal atrial flutter [id number] score of 5, recurrent arrhythmia 5. Ascitis related to above, cannot exclude chronic liver disease, cardiac cirrhosis 6. Diabetes mellitus 7. History of CVA 8. Home O2 dependent COPD 9. CKD 10. History of RLE DVT 11. Morbid obesity PLAN: 1. Continue Dobutamine with caution and close monitoring of renal function and electrolytes 2. Continue Lasix drip and Aldactone with caution and close monitoring of renal function and electrolytes 3. Continue Lisinopril with caution and close monitoring of renal function and electrolytes 4. Continue Coreg with caution in conjunction with Dobutamine, hemodynamics permitting 5. Consider Entresto therapy as outpatient 6. Hold Xarelto pending therapeutic paracentesis 7. Continue Lipitor 8. Initiate Amiodarone for the above noted recurrent arrhythmia 9. To proceed with therapeutic paracentesis considering the above noted presentation Ashwin Pittman MD
[2016-05-29] MEDS ORDERED: AMIODARONE HCL INJECTION 150 MG in DEXTROSE 5%-WATER - 97 ML IVPB ONE (08:48)
--- NOTE | 2016-05-29 09:37 | PN ---
Physical Exam: SUBJECTIVE: Patient seen and examined. States he is comfortable at rest. Denies chest pain or shortness of breath. OBJECTIVE: Bilateral purulent wounds on lower extremities, wound care ordered, pt had appointment for today as outpatient Telemonitor with normal sinus @90s Vital Signs Period Temp Pulse Resp BP Sys/Mcconnell Pulse Ox Last 24 Hr 97.8 F-98.8 F 84-92 18-20 120-138/52-82 96-96 GENERAL: The patient is awake, alert, and fully oriented, in no acute distress HEAD: Normal with no signs of trauma. EYES: PERRL, extraocular movements intact, sclera anicteric, conjunctiva clear. No ptosis. ENT: Ears normal, nares patent, oropharynx clear without exudates, moist mucous membranes. NECK: Trachea midline, full range of motion, supple. LUNGS: diminished breath sounds bilaterally, HEART: Normal sinus rhythm 90s ABDOMEN:distended abdomen, for paracentesis today rebound, no hepatosplenomegaly, no masses. EXTREMITIES: bilateral leg ulcerations - chronic/present on admission/wound care consult NEUROLOGICAL: Normal speech, gait not observed. PSYCH: Normal mood, normal affect. SKIN: bilateral lower ext wound ulcerations, purulent drainage Laboratory Results - last 24 hr 05/28/16 05/28/16 05/28/16 06:20 06:20 11:53 WBC RBC Hgb Hct MCV MCHC RDW Plt Count MPV Neutrophils % Lymphocytes % Monocytes % Eosinophils % Basophils % Sodium Potassium Chloride Carbon Dioxide Anion Gap BUN Creatinine POC Glucometer 333 Random Glucose Calcium Iron 41 TIBC 234 L Iron Saturation 18 Ferritin 143.360 05/28/16 05/29/16 05/29/16 16:31 05:29 05:35 WBC 6.1 RBC 3.71 L Hgb 11.2 L Hct 34.6 L MCV 93.3 MCHC 32.3 RDW 18.5 H Plt Count 103 L MPV 10.2 Neutrophils % 83.9 H Lymphocytes % 6.4 L D Monocytes % 9.2 Eosinophils % 0.4 D Basophils % 0.1 Sodium Potassium Chloride Carbon Dioxide Anion Gap BUN Creatinine POC Glucometer 363 277 Random Glucose Calcium Iron TIBC Iron Saturation Ferritin 05/29/16 05:35 WBC RBC Hgb Hct MCV MCHC RDW Plt Count MPV Neutrophils % Lymphocytes % Monocytes % Eosinophils % Basophils % Sodium 141 Potassium 4.0 Chloride 97 L Carbon Dioxide 35 H Anion Gap 9 BUN 34 H Creatinine 1.6 H POC Glucometer Random Glucose 275 H Calcium 8.8 Iron TIBC Iron Saturation Ferritin Active Medications Generic Name Dose Route Start Last Admin Trade Name Freq PRN Reason Stop Dose Admin Acetaminophen 325 mg 05/27/16 21:07 05/29/16 08:33 Tylenol - PO 325 mg Q6H PRN Administration PAIN Albuterol/Ipratropium 1 amp 05/26/16 22:00 05/29/16 06:00 Duoneb - NEB 1 amp Q4HWA MAGEN Administration Amiodarone HCl 400 mg 05/29/16 10:00 Cordarone - PO BID [facility] Atorvastatin Calcium 40 mg 05/26/16 22:00 05/28/16 21:55 Lipitor - PO 40 mg HS [facility] Administration Carvedilol 3.125 mg 05/26/16 22:00 05/28/16 21:55 Coreg - PO 3.125 mg BID [facility] Administration Cholecalciferol 1,000 unit 05/27/16 10:00 05/28/16 09:03 Vitamin D3 - PO 1,000 unit DAILY [facility] Administration Clotrimazole 1 applic 05/26/16 22:00 05/28/16 21:56 Lotrimin 1% Cream - TP 1 applic BID [facility] Administration Dexamethasone 4 mg 05/27/16 10:00 05/28/16 09:03 Decadron - PO 4 mg DAILY [facility] Administration Gabapentin 100 mg 05/27/16 10:00 05/28/16 09:03 Neurontin - PO 100 mg DAILY [facility] Administration Furosemide 100 mg/ Sodium 100 mls @ 10 mls/hr 05/26/16 23:30 05/28/16 23:28 Chloride IVPB 10 mls/hr ASDIR [facility] Administration 10 MG/HR Dobutamine HCl 250,000 mcg/ 250 mls @ 39.46 mls/hr 05/28/16 17:00 05/28/16 16: 52 Sodium Chloride IV 39.46 mls/hr ASDIR MAG[facility] Administration Protocol 5 MCG/KG/MIN Insulin Detemir 70 units 05/27/16 07:00 05/29/16 06:29 Levemir Vial SQ 70 units AM [facility] Administration Liraglutide 1.8 mg 05/27/16 07:00 05/29/16 06:28 Victoza - SQ 1.8 mg DAILY@0700 [facility] Administration Lisinopril 5 mg 05/27/16 10:00 05/28/16 11:58 Prinivil PO 5 mg DAILY [facility] Administration Humulin R U-500 Pen 30 each 05/29/16 07:00 05/29/16 06:29 - Patient Own Med SQ 30 each TIDAC [facility] Administration Nystatin 1 applic 05/26/16 17:15 05/28/16 11:57 Nystop Powder - TP 1 applic DAILY [facility] Administration Oxycodone HCl 5 mg 05/27/16 21:07 05/29/16 08:34 Roxicodone - PO 5 mg Q6H PRN Administration PAIN Spironolactone 25 mg 05/27/16 13:30 05/28/16 21:55 Aldactone - PO 25 mg BID [facility] Administration Tamsulosin HCl 0.4 mg 05/27/16 08:30 05/29/16 08:33 Flomax - PO 0.4 mg DAILY@0830 [facility] Administration ASSESSMENT/PLAN Patient is a 61 year-old male with a significant past medical history of hypertension, hyperlipidemia, ischemic dilated cardiomyopathy, systolic heart failure s/p PPM/AICD, CAD s/p CABG, DVT, CVA, COPD(home oxygen dependent), DM and lung cancer. Imagin11/2015 Echo: severe LV dysfunction with global hypokinesis; mild MR; mild to moderate TR; moderate pHTN 05/26/16 CXR: congestive changes 05/27/16 US abdomen: significant ascites Cardiology: CAD s/p CABG/Systolic heart failure Assessment/Plan: On dobutamine and lasix drips per cardiology orders On Aldactone. Monitor intake and output Daily weights Hypertension - chronic Assessment/Plan: On Lisinopril and coreg Hyperlipidemia - chronic Assessment/Plan: On Lipitor PSVT/ paroxysmal atrial flutter/DVT hx Assessment/Plan: On Amiodorone 400mg daily On Xarelto which is on hold for paracentesis today GI: Ascites Assessment/Plan: paracentesis today GI following Endocrine: Diabetes mellitus: Assessment/Plan: On Humalin R-U500, 30U TID before meals On Victoza : Chronic Kidney Disease - @ baseline Monitor on lasix drip Pulmonary: COPD - not in acute exacerbation Assessment/Plan: On Daily Decadrom 4mg Duonebs prn Integumentary: Venous stasis ulcers bilateral lower extremities - chronic Assessment/Plan: wound care consult entered to follow while in hospital Monitor F.E.N. Fluids: PO intake Electrolytes: bmp in a.m. Nutrition: diabetic low sodium Prophylaxis: DVT: on Xarelto GI: Protonix Visit type - Emergency Visit Emergency Visit: Yes ED Registration Date: 05/26/16 Care time: The patient presented to the Emergency Department on the above date and was hospitalized for further evaluation of their emergent condition. - New Patient This patient is new to me today: Yes Date on this admission: 05/29/16 - Critical Care Critical Care patient: No - Discharge Referral Referred to [facility] Med [facility] No
[2016-05-29 10:08] LABS: HEP B SURFACE AB Reactive (.)
[2016-05-29] MEDS: CHOLECALCIFEROL (VITAMIN D3) 1,000 UNIT TABLET (FP) PO SCH (10:08)
[2016-05-29] MEDS: GABAPENTIN 100 MG CAPSULE (FP) PO SCH (10:08)
[2016-05-29] MEDS: DEXAMETHASONE 4 MG TABLET (FP) PO SCH (10:08)
[2016-05-29] MEDS: CARVEDILOL 3.125 MG TABLET (FP) PO SCH ×2 (10:08→21:36)
[2016-05-29] MEDS: AMIODARONE HCL 200 MG TABLET (FP) PO SCH ×2 (10:08→21:35)
[2016-05-29] MEDS: NYSTATIN POWDER 100,000 UNITS/GM - 15 GM TOPICAL POWDER TP SCH (10:09)
[2016-05-29] MEDS: LISINOPRIL 5 MG TABLET (FP) PO SCH (10:09)
[2016-05-29] MEDS: CLOTRIMAZOLE 1% CREAM 15 GM TUBE TP SCH ×2 (10:09→23:00)
[2016-05-29] MEDS: SPIRONOLACTONE 25 MG TABLET (FP) PO SCH ×2 (10:10→21:35)
[2016-05-29] MEDS ORDERED: FUROSEMIDE 100 MG/10 ML INJECTABLE VIAL ONE (10:58)
--- NOTE | 2016-05-29 12:05 | PN ---
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 MORBID OBESITY CKD GOUT H/O DVT PLAN DIURETICS O2 INHALED BRONCHODILATORS PARACENTESIS DAILY WTS MONITOR LYTES GLYCEMIC CONTROL DR BARBOSA - Current Medication List Current Medications: Active Medications Acetaminophen (Tylenol -) 325 mg PO Q6H PRN PRN Reason: PAIN Last Admin: 05/29/16 08:33 Dose: 325 mg Albuterol/Ipratropium (Duoneb -) 1 amp NEB Q4HWA [facility] Last Admin: 05/29/16 06:00 Dose: 1 amp Amiodarone HCl (Cordarone -) 400 mg PO BID [facility] Last Admin: 05/29/16 10:08 Dose: 400 mg Atorvastatin Calcium (Lipitor -) 40 mg PO HS [facility] Last Admin: 05/28/16 21:55 Dose: 40 mg Carvedilol (Coreg -) 3.125 mg PO BID [facility] Last Admin: 05/29/16 10:08 Dose: 3.125 mg Cholecalciferol (Vitamin D3 -) 1,000 unit PO DAILY [facility] Last Admin: 05/29/16 10:08 Dose: 1,000 unit Clotrimazole (Lotrimin 1% Cream -) 1 applic TP BID [facility] Last Admin: 05/29/16 10:09 Dose: 1 applic Dexamethasone (Decadron -) 4 mg PO DAILY [facility] Last Admin: 05/29/16 10:08 Dose: 4 mg Gabapentin (Neurontin -) 100 mg PO DAILY [facility] Last Admin: 05/29/16 10:08 Dose: 100 mg Furosemide 100 mg/ Sodium (Chloride) 100 mls @ 10 mls/hr IVPB ASDIR MAGEN PRN Reason: 10 MG/HR Last Admin: 05/28/16 23:28 Dose: 10 mls/hr Dobutamine HCl 250,000 mcg/ (Sodium Chloride) 250 mls @ 39.46 mls/hr IV ASDIR MAGEN; 5 MCG/KG/MIN PRN Reason: Protocol Last Admin: 05/28/16 16:52 Dose: 39.46 mls/hr Insulin Detemir (Levemir Vial) 70 units SQ AM [facility] Last Admin: 05/29/16 06:29 Dose: 70 units Liraglutide (Victoza -) 1.8 mg SQ DAILY@0700 [facility] Last Admin: 05/29/16 06:28 Dose: 1.8 mg Lisinopril (Prinivil) 5 mg PO DAILY [facility] Last Admin: 05/29/16 10:09 Dose: 5 mg Humulin R U-500 Pen (- Patient Own Med) 30 each SQ TIDAC [facility] Last Admin: 05/29/16 06:29 Dose: 30 each Nystatin (Nystop Powder -) 1 applic TP DAILY [facility] Last Admin: 05/29/16 10:09 Dose: 1 applic Oxycodone HCl (Roxicodone -) 5 mg PO Q6H PRN PRN Reason: PAIN Last Admin: 05/29/16 08:34 Dose: 5 mg Spironolactone (Aldactone -) 25 mg PO BID [facility] Last Admin: 05/29/16 10:10 Dose: 25 mg Tamsulosin HCl (Flomax -) 0.4 mg PO DAILY@0830 [facility] Last Admin: 05/29/16 08:33 Dose: 0.4 mg - Objective Labs: CBC, BMP 05/29/16 05:35 05/29/16 05:35 INR, PTT INR 1.86 (0.82-1.09) H 05/27/16 06:05
--- NOTE | 2016-05-29 12:12 | PN ---
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 MORBID OBESITY CKD GOUT H/O DVT PLAN DIURETICS O2 INHALED BRONCHODILATORS PARACENTESIS DAILY WTS MONITOR LYTES GLYCEMIC CONTROL DR BARBOSA Problem List - Problems (1) Ascites Code(s): R18.8 - OTHER ASCITES Qualifiers: Ascites type: other type Qualified Code(s): R18.8 - Other ascites (2) CHF (congestive heart failure) Code(s): I50.9 - HEART FAILURE, UNSPECIFIED Qualifiers: Congestive heart failure type: systolic Congestive heart failure chronicity: acute on chronic Qualified Code(s): I50.23 - Acute on chronic systolic (congestive) heart failure (3) CHF exacerbation Code(s): I50.9 - HEART FAILURE, UNSPECIFIED Qualifiers: Congestive heart failure type: unspecified congestive heart failure type Qualified Code(s): I50.9 - Heart failure, unspecified (4) CKD (chronic kidney disease) Code(s): N18.9 - CHRONIC KIDNEY DISEASE, UNSPECIFIED Qualifiers: Chronic kidney disease stage: stage 3 (moderate) Qualified Code(s): N18.3 - Chronic kidney disease, stage 3 (moderate) (5) Dyspnea on exertion Code(s): R06.09 - OTHER FORMS OF DYSPNEA (6) ASHD (arteriosclerotic heart disease) Code(s): I25.10 - ATHSCL HEART DISEASE OF [place] CORONARY ARTERY W/O ANG PCTRS (7) Acute on chronic systolic and diastolic heart failure, NYHA class 4 Code(s): I50.43 - ACUTE ON CHRONIC COMBINED SYSTOLIC AND DIASTOLIC HRT FAIL (8) COPD (chronic obstructive pulmonary disease) Code(s): J44.9 - CHRONIC OBSTRUCTIVE PULMONARY DISEASE, UNSPECIFIED Qualifiers : COPD type: chronic bronchitis (9) COPD exacerbation Code(s): J44.1 - CHRONIC OBSTRUCTIVE PULMONARY DISEASE W (ACUTE) EXACERBATION (10) Deep venous thrombosis Code(s): I82.409 - ACUTE EMBOLISM AND THOMBOS UNSP DEEP VN UNSP LOWER EXTREMITY Qualifiers: DVT location: lower extremity Affected thrombotic vein of extremity: unspecified vein of extremity Laterality: right Chronicity: acute Qualified Code(s): I82.401 - Acute embolism and thrombosis of unspecified deep veins of right lower extremity (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, managed as type 1 Code(s): E13.9 - OTHER SPECIFIED DIABETES MELLITUS WITHOUT COMPLICATIONS (12) Heart failure, systolic, with acute decompensation Code(s): I50.23 - ACUTE ON CHRONIC SYSTOLIC (CONGESTIVE) HEART FAILURE (13) Hepatitis B Code(s): B19.10 - UNSPECIFIED VIRAL HEPATITIS B WITHOUT HEPATIC COMA (14) Hx of CABG Code(s): Z95.1 - PRESENCE OF AORTOCORONARY BYPASS GRAFT (15) Hyperglycemia Code(s): R73.9 - HYPERGLYCEMIA, UNSPECIFIED (16) Ischemic cardiomyopathy Code(s): I25.5 - ISCHEMIC CARDIOMYOPATHY (17) LV dysfunction Code(s): I51.9 - HEART DISEASE, UNSPECIFIED (18) Lung nodule Code(s): R91.1 - SOLITARY PULMONARY NODULE (19) Morbid obesity Code(s): E66.01 - MORBID (SEVERE) OBESITY DUE TO EXCESS CALORIES Qualifiers: Obesity type: due to excess calories Qualified Code(s): E66.01 - Morbid (severe) obesity due to excess calories (20) S/P CABG (coronary artery bypass graft) Code(s): Z95.1 - PRESENCE OF AORTOCORONARY BYPASS GRAFT (21) Severe left ventricular systolic dysfunction Code(s): I51.9 - HEART DISEASE, UNSPECIFIED (22) Single implantable cardioverter-defibrillator (ICD) in situ Code(s): Z95.810 - PRESENCE OF AUTOMATIC (IMPLANTABLE) CARDIAC DEFIBRILLATOR (23) Tobacco abuse Code(s): Z72.0 - TOBACCO USE (24) Acute and chronic respiratory failure with hypoxia Code(s): J96.21 - ACUTE AND CHRONIC RESPIRATORY FAILURE WITH HYPOXIA
[2016-05-29 16:35] LABS: PERITONEAL FLUID LYMPHOCYTE 10 %; PERITONEAL FLUID NEUTROPHIL 48 %
[2016-05-29] MEDS: DOBUTAMINE HCL 250,000 MCG in SODIUM CHLORIDE 230 ML IV SCH (18:04)
--- NOTE | 2016-05-29 19:48 | PN ---
Progress Note (short form) - Note Progress Note: Vascular Surgery Pt with bilateral lower ext ulcers. Well known to wound care clinic. Dressings changed Apply sanytl to al wounds with crow for compression. Leonard Quispe dO
[2016-05-29] MEDS: ATORVASTATIN CA 40 MG TABLET (FP) PO SCH (21:35)
[2016-05-29] MEDS: FUROSEMIDE INJECTION 100 MG in SODIUM CHLORIDE 90 ML IVPB SCH (22:00)
[2016-05-29] MEDS: COLLAGENASE CLOSTRIDIUM HIST. 30 GRAMS TUBE TP SCH (23:00)
[2016-05-30] MEDS: DOBUTAMINE HCL 250,000 MCG in SODIUM CHLORIDE 230 ML IV SCH ×2 (04:55→22:23)
[2016-05-30] MEDS: ALBUTEROL SO4 2.5/IPRATROPIUM 0.5 INH SOL 3 ML VIAL.NEB. NEB SCH ×5 (06:00→22:30)
[2016-05-30] MEDS: LIRAGLUTIDE 0.6 MG/0.1 ML PEN.INJCTR SQ SCH (06:17)
[2016-05-30] MEDS: INSULIN DETEMIR 100 UNITS/ML MDV SQ SCH (06:17)
[2016-05-30] MEDS: HUMULIN R U SQ SCH ×3 (06:18→17:01)
[2016-05-30 07:18] LABS: COCKROFT - GAULT 95.68; CREATININE 1.5 mg/dL (0.7-1.3)
[2016-05-30 07:28] LABS: BASOPHIL 0.2 % (0-2.0); EOSINOPHIL 0.3 % (0-4.5); MCH 30.1 pg (25.7-33.7); MCHC 32.6 g/dl (32.0-35.9); MEAN CELL VOLUME 92.5 fl (80-96); MEAN PLT VOLUME 9.1 fl (7.5-11.1); NEUTROPHILS 85.9 % (42.8-82.8); PLATELET COUNT 110 K/MM3 (134-434); RDW 18.2 % (11.9-15.9); WHITE BLOOD COUNT 6.5 K/mm3 (4.0-10.0)
[2016-05-30] MEDS ORDERED: PT OWN MED DRAWER 7, Y5N ONE (08:55)
--- NOTE | 2016-05-30 09:01 | PN ---
Progress Note (short form) - Note Progress Note: Chief Complaint: Events noted, notes reviewed, Dyspnea and anasarca persists but improving, remains on Dobutamine and Lasix drips, post paracentesis History of Present Illness: Seen and examined on telemetry. Events noted, notes reviewed, Dyspnea and anasarca persists but improving, remains on Dobutamine and Lasix drips, post paracentesis Post therapeutic paracentesis yesterday, with removal of 6000cc As outlined in prior notes Milrinone therapy was D/C related to tachycardia, monitor reviewed probably SVT, cannot exclude paroxysmal atrial flutter, dose was not adjusted based to eGFR Echocardiography 12/07/2015 revealed severe LV systolic dysfunction with global hypokinesia, mild MR, mild to moderate TR. moderate pulmonary HTN Medications: Current Medications Acetaminophen (Tylenol -) 325 mg PO Q6H PRN PRN Reason: PAIN Last Admin: 05/29/16 21:36 Dose: 325 mg Albuterol/Ipratropium (Duoneb -) 1 amp NEB Q4HWA [facility] Last Admin: 05/30/16 06:00 Dose: 1 amp Amiodarone HCl (Cordarone -) 400 mg PO BID [facility] Last Admin: 05/29/16 21:35 Dose: 400 mg Atorvastatin Calcium (Lipitor -) 40 mg PO HS [facility] Last Admin: 05/29/16 21:35 Dose: 40 mg Carvedilol (Coreg -) 3.125 mg PO BID [facility] Last Admin: 05/29/16 21:36 Dose: 3.125 mg Cholecalciferol (Vitamin D3 -) 1,000 unit PO DAILY [facility] Last Admin: 05/29/16 10:08 Dose: 1,000 unit Clotrimazole (Lotrimin 1% Cream -) 1 applic TP BID [facility] Last Admin: 05/29/16 23:00 Dose: 1 applic Collagenase (Santyl -) 1 applic TP DAILY [facility] Last Admin: 05/29/16 23:00 Dose: 1 applic Dexamethasone (Decadron -) 4 mg PO DAILY [facility] Last Admin: 05/29/16 10:08 Dose: 4 mg Gabapentin (Neurontin -) 100 mg PO DAILY [facility] Last Admin: 05/29/16 10:08 Dose: 100 mg Furosemide 100 mg/ Sodium (Chloride) 100 mls @ 10 mls/hr IVPB ASDIR MAGEN PRN Reason: 10 MG/HR Last Admin: 05/29/16 22:00 Dose: 10 mls/hr Dobutamine HCl 250,000 mcg/ (Sodium Chloride) 250 mls @ 39.46 mls/hr IV ASDIR [facility]; 5 MCG/KG/MIN PRN Reason: Protocol Last Titration: 05/30/16 07:50 Dose: 4.94 mcg/kg/min Insulin Detemir (Levemir Vial) 70 units SQ AM [facility] Last Admin: 05/30/16 06:17 Dose: 70 units Liraglutide (Victoza -) 1.8 mg SQ DAILY@0700 [facility] Last Admin: 05/30/16 06:17 Dose: 1.8 mg Lisinopril (Prinivil) 5 mg PO DAILY [facility] Last Admin: 05/29/16 10:09 Dose: 5 mg Humulin R U-500 Pen (- Patient Own Med) 30 each SQ TIDAC [facility] Last Admin: 05/30/16 06:18 Dose: 30 each Nystatin (Nystop Powder -) 1 applic TP DAILY [facility] Last Admin: 05/29/16 10:09 Dose: 1 applic Oxycodone HCl (Roxicodone -) 5 mg PO Q6H PRN PRN Reason: PAIN Last Admin: 05/29/16 21:36 Dose: 5 mg Pantoprazole Sodium (Protonix -) 40 mg PO DAILY [facility] Spironolactone (Aldactone -) 25 mg PO BID [facility] Last Admin: 05/29/16 21:35 Dose: 25 mg Tamsulosin HCl (Flomax -) 0.4 mg PO DAILY@0830 [facility] Last Admin: 05/29/16 08:33 Dose: 0.4 mg Review of Systems Constitutional: denies Chills or Fever Respiratory: reports: Dyspnea Cardiovascular: As noted above Gastrointestinal: denies Nausea, Vomiting, Diarrhea or Constipation or Abdominal Discomfort but reports Abdominal distention Genitourinary: No Symptoms Reported Musculoskeletal: Right shoulder pain Vital Signs: Last Vital Signs Temp Pulse Resp BP Pulse Ox 98 F 77 20 115/65 95 05/30/16 08:27 05/30/16 08:27 05/30/16 08:27 05/30/16 08:27 05/29/16 21:00 Intake & Output 05/27/16 05/28/16 05/29/16 05/30/16 23:59 23:59 23:59 23:59 Intake Total 820 1720 1342.8 468 Output Total 2375 3575 1700 1200 Balance -1555 -1855 -357.2 -732 Weight 286 lb 9.6 oz 290 lb 288 lb 6 oz 272 lb Constitutional: No Distress, Calm Neck: Supple Positive JVD Respiratory: Diminished Breath Sounds at the Bases Cardiovascular: S1 S2 Regular Rate and Rhythm Grade 1-2/6 SM Gastrointestinal: Distented, Normal Bowel Sounds Ext: 2-3 + Bilateral Edema Labs: CBC, BMP 05/29/16 05:35 05/29/16 05:35 Hepatic Panel Total Bilirubin 1.6 mg/dL (0.2-1.0) H D 05/27/16 06:05 AST 22 U/L (15-37) 05/27/16 06:05 ALT 33 U/L (12-78) 05/27/16 06:05 Alkaline Phosphatase 202 U/L (45-117) H 05/27/16 06:05 Albumin 3.1 g/dl (3.4-5.0) L 05/27/16 06:05 INR, PTT INR 1.86 (0.82-1.09) H 05/27/16 06:05 Assessment/Plan ASSESSMENT: 1. Acute on chronic class III-IV NYHA classification LV failure related to severe LV systolic dysfunction ischemic dilated cardiomyopathy, resolving clinically 2. CAD post CABG, angina pectoris 3. History of cardiac arrest post ICD 4. PSVT cannot exclude paroxysmal atrial flutter [id number] score of 5, recurrent arrhythmia 5. Ascitis related to above, cannot exclude chronic liver disease, cardiac cirrhosis 6. Diabetes mellitus 7. History of CVA 8. Home O2 dependent COPD 9. CKD 10. History of RLE DVT 11. Morbid obesity PLAN: 1. Continue Dobutamine with caution and close monitoring of renal function and electrolytes for an additional 24-48 hours 2. Continue Lasix drip (for an additional 24-48 hours) and Aldactone with caution and close monitoring of renal function and electrolytes 3. Continue Lisinopril with caution and close monitoring of renal function and electrolytes 4. Continue Coreg with caution in conjunction with Dobutamine, hemodynamics permitting 5. Consider Entresto therapy as outpatient 6. Resume Xarelto at 15 mg daily considering above CKD 7. Continue Lipitor 8. Continue Amiodarone with caution, eventual decrease dosage to 200 mg daily Ashwin Pittman MD
[2016-05-30] MEDS: GABAPENTIN 100 MG CAPSULE (FP) PO SCH (09:10)
[2016-05-30] MEDS: PANTOPRAZOLE 40 MG TABLET (FP) PO SCH (09:10)
[2016-05-30] MEDS: LISINOPRIL 5 MG TABLET (FP) PO SCH (09:10)
[2016-05-30] MEDS: AMIODARONE HCL 200 MG TABLET (FP) PO SCH ×2 (09:10→22:03)
[2016-05-30] MEDS: DEXAMETHASONE 4 MG TABLET (FP) PO SCH (09:10)
[2016-05-30] MEDS: CARVEDILOL 3.125 MG TABLET (FP) PO SCH ×2 (09:11→22:04)
[2016-05-30] MEDS: CLOTRIMAZOLE 1% CREAM 15 GM TUBE TP SCH ×2 (09:11→22:05)
[2016-05-30] MEDS: SPIRONOLACTONE 25 MG TABLET (FP) PO SCH ×2 (09:11→22:04)
[2016-05-30] MEDS: TAMSULOSIN HCL 0.4 MG CAP.ER.24H (FP) PO SCH (09:11)
[2016-05-30] MEDS: CHOLECALCIFEROL (VITAMIN D3) 1,000 UNIT TABLET (FP) PO SCH (09:11)
[2016-05-30] MEDS: NYSTATIN POWDER 100,000 UNITS/GM - 15 GM TOPICAL POWDER TP SCH (09:11)
[2016-05-30] MEDS: RIVAROXABAN 15 MG TABLET PO SCH (10:01)
--- NOTE | 2016-05-30 11:05 | PN ---
Progress Note, Physician Chief Complaint: pulmonary alert, feeling much better s/p paracentesis,-sob,-cp,oob-chair, - Current Medication List Current Medications: Active Medications Acetaminophen (Tylenol -) 325 mg PO Q6H PRN PRN Reason: PAIN Last Admin: 05/29/16 21:36 Dose: 325 mg Albuterol/Ipratropium (Duoneb -) 1 amp NEB Q4HWA [facility] Last Admin: 05/30/16 06:00 Dose: 1 amp Amiodarone HCl (Cordarone -) 400 mg PO BID [facility] Last Admin: 05/30/16 09:10 Dose: 400 mg Atorvastatin Calcium (Lipitor -) 40 mg PO HS [facility] Last Admin: 05/29/16 21:35 Dose: 40 mg Carvedilol (Coreg -) 3.125 mg PO BID [facility] Last Admin: 05/30/16 09:11 Dose: 3.125 mg Cholecalciferol (Vitamin D3 -) 1,000 unit PO DAILY [facility] Last Admin: 05/30/16 09:11 Dose: 1,000 unit Clotrimazole (Lotrimin 1% Cream -) 1 applic TP BID [facility] Last Admin: 05/30/16 09:11 Dose: 1 applic Collagenase (Santyl -) 1 applic TP DAILY [facility] Last Admin: 05/29/16 23:00 Dose: 1 applic Dexamethasone (Decadron -) 4 mg PO DAILY [facility] Last Admin: 05/30/16 09:10 Dose: 4 mg Gabapentin (Neurontin -) 100 mg PO DAILY [facility] Last Admin: 05/30/16 09:10 Dose: 100 mg Furosemide 100 mg/ Sodium (Chloride) 100 mls @ 10 mls/hr IVPB ASDIR MAGEN PRN Reason: 10 MG/HR Last Admin: 05/29/16 22:00 Dose: 10 mls/hr Dobutamine HCl 250,000 mcg/ (Sodium Chloride) 250 mls @ 39.46 mls/hr IV ASDIR MAGEN; 5 MCG/KG/MIN PRN Reason: Protocol Last Titration: 05/30/16 07:50 Dose: 4.94 mcg/kg/min Insulin Detemir (Levemir Vial) 70 units SQ AM [facility] Last Admin: 05/30/16 06:17 Dose: 70 units Liraglutide (Victoza -) 1.8 mg SQ DAILY@0700 [facility] Last Admin: 05/30/16 06:17 Dose: 1.8 mg Lisinopril (Prinivil) 5 mg PO DAILY [facility] Last Admin: 05/30/16 09:10 Dose: 5 mg Humulin R U-500 Pen (- Patient Own Med) 30 each SQ TIDAC [facility] Last Admin: 05/30/16 06:18 Dose: 30 each Nystatin (Nystop Powder -) 1 applic TP DAILY [facility] Last Admin: 05/30/16 09:11 Dose: 1 applic Oxycodone HCl (Roxicodone -) 5 mg PO Q6H PRN PRN Reason: PAIN Last Admin: 05/29/16 21:36 Dose: 5 mg Pantoprazole Sodium (Protonix -) 40 mg PO DAILY [facility] Last Admin: 05/30/16 09:10 Dose: 40 mg Rivaroxaban (Xarelto -) 15 mg PO DAILY [facility] Last Admin: 05/30/16 10:01 Dose: 15 mg Spironolactone (Aldactone -) 25 mg PO BID [facility] Last Admin: 05/30/16 09:11 Dose: 25 mg Tamsulosin HCl (Flomax -) 0.4 mg PO DAILY@0830 [facility] Last Admin: 05/30/16 09:11 Dose: 0.4 mg - Objective Vital Signs: Vital Signs Temperature 98 F 05/30/16 08:27 Pulse Rate 77 05/30/16 08:27 Respiratory Rate 20 05/30/16 08:27 Blood Pressure 115/65 05/30/16 08:27 O2 Sat by Pulse Oximetry (%) 96 05/30/16 08:00 Constitutional: Yes: Well Nourished, Calm Eyes: Yes: WNL HENT: Yes: WNL Neck: Yes: WNL Cardiovascular: Yes: Regular Rate and Rhythm, S1, S2 Respiratory: Yes: Rales (few bibasilar crackles) Gastrointestinal: Yes: Normal Bowel Sounds, Soft Extremities: Yes: WNL Edema: Yes Labs: CBC, BMP 05/30/16 05:35 05/30/16 05:35 INR, PTT INR 1.86 (0.82-1.09) H 05/27/16 06:05 Problem List - Problems (1) Ascites Code(s): R18.8 - OTHER ASCITES Qualifiers: Ascites type: other type Qualified Code(s): R18.8 - Other ascites (2) CHF (congestive heart failure) Code(s): I50.9 - HEART FAILURE, UNSPECIFIED Qualifiers: Congestive heart failure type: systolic Congestive heart failure chronicity: acute on chronic Qualified Code(s): I50.23 - Acute on chronic systolic (congestive) heart failure (3) CHF exacerbation Code(s): I50.9 - HEART FAILURE, UNSPECIFIED Qualifiers: Congestive heart failure type: unspecified congestive heart failure type Qualified Code(s): I50.9 - Heart failure, unspecified (4) CKD (chronic kidney disease) Code(s): N18.9 - CHRONIC KIDNEY DISEASE, UNSPECIFIED Qualifiers: Chronic kidney disease stage: stage 3 (moderate) Qualified Code(s): N18.3 - Chronic kidney disease, stage 3 (moderate) (5) Dyspnea on exertion Code(s): R06.09 - OTHER FORMS OF DYSPNEA (6) ASHD (arteriosclerotic heart disease) Code(s): I25.10 - ATHSCL HEART DISEASE OF [place] CORONARY ARTERY W/O ANG PCTRS (7) Acute on chronic systolic and diastolic heart failure, NYHA class 4 Code(s): I50.43 - ACUTE ON CHRONIC COMBINED SYSTOLIC AND DIASTOLIC HRT FAIL (8) COPD (chronic obstructive pulmonary disease) Code(s): J44.9 - CHRONIC OBSTRUCTIVE PULMONARY DISEASE, UNSPECIFIED Qualifiers : COPD type: chronic bronchitis (9) COPD exacerbation Code(s): J44.1 - CHRONIC OBSTRUCTIVE PULMONARY DISEASE W (ACUTE) EXACERBATION (10) Deep venous thrombosis Code(s): I82.409 - ACUTE EMBOLISM AND THOMBOS UNSP DEEP VN UNSP LOWER EXTREMITY Qualifiers: DVT location: lower extremity Affected thrombotic vein of extremity: unspecified vein of extremity Laterality: right Chronicity: acute Qualified Code(s): I82.401 - Acute embolism and thrombosis of unspecified deep veins of right lower extremity (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, managed as type 1 Code(s): E13.9 - OTHER SPECIFIED DIABETES MELLITUS WITHOUT COMPLICATIONS (12) Heart failure, systolic, with acute decompensation Code(s): I50.23 - ACUTE ON CHRONIC SYSTOLIC (CONGESTIVE) HEART FAILURE (13) Hepatitis B Code(s): B19.10 - UNSPECIFIED VIRAL HEPATITIS B WITHOUT HEPATIC COMA (14) Hx of CABG Code(s): Z95.1 - PRESENCE OF AORTOCORONARY BYPASS GRAFT (15) Hyperglycemia Code(s): R73.9 - HYPERGLYCEMIA, UNSPECIFIED (16) Ischemic cardiomyopathy Code(s): I25.5 - ISCHEMIC CARDIOMYOPATHY (17) LV dysfunction Code(s): I51.9 - HEART DISEASE, UNSPECIFIED (18) Lung nodule Code(s): R91.1 - SOLITARY PULMONARY NODULE (19) Morbid obesity Code(s): E66.01 - MORBID (SEVERE) OBESITY DUE TO EXCESS CALORIES Qualifiers: Obesity type: due to excess calories Qualified Code(s): E66.01 - Morbid (severe) obesity due to excess calories (20) S/P CABG (coronary artery bypass graft) Code(s): Z95.1 - PRESENCE OF AORTOCORONARY BYPASS GRAFT (21) Severe left ventricular systolic dysfunction Code(s): I51.9 - HEART DISEASE, UNSPECIFIED (22) Single implantable cardioverter-defibrillator (ICD) in situ Code(s): Z95.810 - PRESENCE OF AUTOMATIC (IMPLANTABLE) CARDIAC DEFIBRILLATOR (23) Tobacco abuse Code(s): Z72.0 - TOBACCO USE (24) Acute and chronic respiratory failure with hypoxia Code(s): J96.21 - ACUTE AND CHRONIC RESPIRATORY FAILURE WITH HYPOXIA Assessment/Plan IMP ACUTE ON CHRONIC HYPOXEMIC RESPIRATORY FAILURE ADVANCED COPD ON O2 DECOMPENSATED CHF ASCITES ISCHEMIC CARDIOMYOPATHY ASHD S/O CABG,S/P AICD H/O CARDIAC ARREST NIRANJAN MASS LIKELY CA S/P RT DM MORBID OBESITY CKD GOUT H/O DVT PLAN DIURETICS DOBUTAMINE O2 INHALED BRONCHODILATORS DAILY WTS MONITOR LYTES GLYCEMIC CONTROL DR BARBOSA Problem List - Problems (1) Ascites Code(s): R18.8 - OTHER ASCITES Qualifiers: Ascites type: other type Qualified Code(s): R18.8 - Other ascites (2) CHF (congestive heart failure) Code(s): I50.9 - HEART FAILURE, UNSPECIFIED Qualifiers: Congestive heart failure type: systolic Congestive heart failure chronicity: acute on chronic Qualified Code(s): I50.23 - Acute on chronic systolic (congestive) heart failure (3) CHF exacerbation Code(s): I50.9 - HEART FAILURE, UNSPECIFIED Qualifiers: Congestive heart failure type: unspecified congestive heart failure type Qualified Code(s): I50.9 - Heart failure, unspecified (4) CKD (chronic kidney disease) Code(s): N18.9 - CHRONIC KIDNEY DISEASE, UNSPECIFIED Qualifiers: Chronic kidney disease stage: stage 3 (moderate) Qualified Code(s): N18.3 - Chronic kidney disease, stage 3 (moderate) (5) Dyspnea on exertion Code(s): R06.09 - OTHER FORMS OF DYSPNEA (6) ASHD (arteriosclerotic heart disease) Code(s): I25.10 - ATHSCL HEART DISEASE OF [place] CORONARY ARTERY W/O ANG PCTRS (7) Acute on chronic systolic and diastolic heart failure, NYHA class 4 Code(s): I50.43 - ACUTE ON CHRONIC COMBINED SYSTOLIC AND DIASTOLIC HRT FAIL (8) COPD (chronic obstructive pulmonary disease) Code(s): J44.9 - CHRONIC OBSTRUCTIVE PULMONARY DISEASE, UNSPECIFIED Qualifiers : COPD type: chronic bronchitis (9) COPD exacerbation Code(s): J44.1 - CHRONIC OBSTRUCTIVE PULMONARY DISEASE W (ACUTE) EXACERBATION (10) Deep venous thrombosis Code(s): I82.409 - ACUTE EMBOLISM AND THOMBOS UNSP DEEP VN UNSP LOWER EXTREMITY Qualifiers: DVT location: lower extremity Affected thrombotic vein of extremity: unspecified vein of extremity Laterality: right Chronicity: acute Qualified Code(s): I82.401 - Acute embolism and thrombosis of unspecified deep veins of right lower extremity (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, managed as type 1 Code(s): E13.9 - OTHER SPECIFIED DIABETES MELLITUS WITHOUT COMPLICATIONS (12) Heart failure, systolic, with acute decompensation Code(s): I50.23 - ACUTE ON CHRONIC SYSTOLIC (CONGESTIVE) HEART FAILURE (13) Hepatitis B Code(s): B19.10 - UNSPECIFIED VIRAL HEPATITIS B WITHOUT HEPATIC COMA (14) Hx of CABG Code(s): Z95.1 - PRESENCE OF AORTOCORONARY BYPASS GRAFT (15) Hyperglycemia Code(s): R73.9 - HYPERGLYCEMIA, UNSPECIFIED (16) Ischemic cardiomyopathy Code(s): I25.5 - ISCHEMIC CARDIOMYOPATHY (17) LV dysfunction Code(s): I51.9 - HEART DISEASE, UNSPECIFIED (18) Lung nodule Code(s): R91.1 - SOLITARY PULMONARY NODULE (19) Morbid obesity Code(s): E66.01 - MORBID (SEVERE) OBESITY DUE TO EXCESS CALORIES Qualifiers: Obesity type: due to excess calories Qualified Code(s): E66.01 - Morbid (severe) obesity due to excess calories (20) S/P CABG (coronary artery bypass graft) Code(s): Z95.1 - PRESENCE OF AORTOCORONARY BYPASS GRAFT (21) Severe left ventricular systolic dysfunction Code(s): I51.9 - HEART DISEASE, UNSPECIFIED (22) Single implantable cardioverter-defibrillator (ICD) in situ Code(s): Z95.810 - PRESENCE OF AUTOMATIC (IMPLANTABLE) CARDIAC DEFIBRILLATOR (23) Tobacco abuse Code(s): Z72.0 - TOBACCO USE (24) Acute and chronic respiratory failure with hypoxia Code(s): J96.21 - ACUTE AND CHRONIC RESPIRATORY FAILURE WITH HYPOXIA
[2016-05-30] MEDS ORDERED: FUROSEMIDE 100 MG/10 ML INJECTABLE VIAL ONE ×2 (11:33→22:00)
--- NOTE | 2016-05-30 12:14 | PN ---
Physical Exam: SUBJECTIVE: Patient seen and examined. States his breathing has improved after the paracentesis Sitting in chair eating lunch. Tolerating room air. OBJECTIVE: Tolerating room air Lungs clear to auscultation Bilateral leg wounds dressings changed yesterday, dressing C/D/I Patient appears comfortable at rest Post therapeutic paracentesis yesterday Vital Signs Period Temp Pulse Resp BP Sys/Mcconnell Pulse Ox Last 24 Hr 97.6 F-99.6 F 77-91 19-20 107-139/56-72 95-96 GENERAL: The patient is awake, alert, and fully oriented, in no acute distress - tolerating room air HEAD: Normal with no signs of trauma. EYES: PERRL, extraocular movements intact, sclera anicteric, conjunctiva clear. No ptosis. ENT: Ears normal, nares patent, oropharynx clear without exudates, moist mucous membranes. NECK: Trachea midline, full range of motion, supple. LUNGS: lungs clear bilaterally to auscultation HEART: Normal sinus rhythm 90s ABDOMEN:distended abdomen, for paracentesis today rebound, no hepatosplenomegaly, no masses. EXTREMITIES: bilateral leg ulcerations - chronic/present on admission/wound care consult NEUROLOGICAL: Normal speech, gait not observed. PSYCH: Normal mood, normal affect. SKIN: bilateral lower ext wound ulcerations, dressing changed yesterday - cdi Laboratory Results - last 24 hr 05/29/16 05/29/16 05/30/16 12:30 15:57 05:35 WBC 6.5 RBC 3.86 L Hgb 11.6 L Hct 35.7 MCV 92.5 MCHC 32.6 RDW 18.2 H Plt Count 110 L MPV 9.1 D Neutrophils % 85.9 H Lymphocytes % 6.2 L Monocytes % 7.4 Eosinophils % 0.3 Basophils % 0.2 Sodium Potassium Chloride Carbon Dioxide Anion Gap BUN Creatinine POC Glucometer 246 Random Glucose Calcium Peritoneal WBC 408 Peritoneal RBC 1238 Periton Neutrophils 48 Periton Lymphocytes 10 Peritoneal Tot Protein 4 Peritoneal Albumin 2 Peritoneal LDH 82 Peritoneal Glucose 288 Peritoneal Amylase 11 05/30/16 05/30/16 05/30/16 05:35 05:42 11:39 WBC RBC Hgb Hct MCV MCHC RDW Plt Count MPV Neutrophils % Lymphocytes % Monocytes % Eosinophils % Basophils % Sodium 138 Potassium 3.7 Chloride 98 Carbon Dioxide 34 H Anion Gap 6 L BUN 31 H Creatinine 1.5 H POC Glucometer 241 146 Random Glucose 242 H Calcium 8.0 L Peritoneal WBC Peritoneal RBC Periton Neutrophils Periton Lymphocytes Peritoneal Tot Protein Peritoneal Albumin Peritoneal LDH Peritoneal Glucose Peritoneal Amylase Active Medications Generic Name Dose Route Start Last Admin Trade Name Frefrancy PRN Reason Stop Dose Admin Acetaminophen 325 mg 05/27/16 21:07 05/29/16 21:36 Tylenol - PO 325 mg Q6H PRN Administration PAIN Albuterol/Ipratropium 1 amp 05/26/16 22:00 05/30/16 06:00 Duoneb - NEB 1 amp Q4HWA MAGEN Administration Amiodarone HCl 400 mg 05/29/16 10:00 05/30/16 09:10 Cordarone - PO 400 mg BID MAGEN Administration Atorvastatin Calcium 40 mg 05/26/16 22:00 05/29/16 21:35 Lipitor - PO 40 mg HS MAGEN Administration Carvedilol 3.125 mg 05/26/16 22:00 05/30/16 09:11 Coreg - PO 3.125 mg BID MAGEN Administration Cholecalciferol 1,000 unit 05/27/16 10:00 05/30/16 09:11 Vitamin D3 - PO 1,000 unit DAILY MAGEN Administration Clotrimazole 1 applic 05/26/16 22:00 05/30/16 09:11 Lotrimin 1% Cream - TP 1 applic BID MAGEN Administration Collagenase 1 applic 05/29/16 20:00 05/29/16 23:00 Santyl - TP 1 applic DAILY MAGEN Administration Dexamethasone 4 mg 05/27/16 10:00 05/30/16 09:10 Decadron - PO 4 mg DAILY MAGEN Administration Gabapentin 100 mg 05/27/16 10:00 05/30/16 09:10 Neurontin - PO 100 mg DAILY MAGEN Administration Furosemide 100 mg/ Sodium 100 mls @ 10 mls/hr 05/26/16 23:30 05/29/16 22:00 Chloride IVPB 10 mls/hr ASDIR MAGEN Administration 10 MG/HR Dobutamine HCl 250,000 mcg/ 250 mls @ 39.46 mls/hr 05/28/16 17:00 05/30/16 07: 50 Sodium Chloride IV 4.94 mcg/kg/min ASDIR MAGEN Titration Protocol 5 MCG/KG/MIN Insulin Detemir 70 units 05/27/16 07:00 05/30/16 06:17 Levemir Vial SQ 70 units AM MAGEN Administration Liraglutide 1.8 mg 05/27/16 07:00 05/30/16 06:17 Victoza - SQ 1.8 mg DAILY@0700 MAGEN Administration Lisinopril 5 mg 05/27/16 10:00 05/30/16 09:10 Prinivil PO 5 mg DAILY MAGEN Administration Humulin R U-500 Pen 30 each 05/29/16 07:00 05/30/16 11:40 - Patient Own Med SQ Not Given TIDAC [facility] Nystatin 1 applic 05/26/16 17:15 05/30/16 09:11 Nystop Powder - TP 1 applic DAILY MAGEN Administration Oxycodone HCl 5 mg 05/27/16 21:07 05/29/16 21:36 Roxicodone - PO 5 mg Q6H PRN Administration PAIN Pantoprazole Sodium 40 mg 05/30/16 10:00 05/30/16 09:10 Protonix - PO 40 mg DAILY MAGEN Administration Rivaroxaban 15 mg 05/30/16 10:00 05/30/16 10:01 Xarelto - PO 15 mg DAILY MAGEN Administration Spironolactone 25 mg 05/27/16 13:30 05/30/16 09:11 Aldactone - PO 25 mg BID MAGEN Administration Tamsulosin HCl 0.4 mg 05/27/16 08:30 05/30/16 09:11 Flomax - PO 0.4 mg DAILY@0830 MAGEN Administration ASSESSMENT/PLAN: Patient is a 61 year-old male with a significant past medical history of hypertension, hyperlipidemia, ischemic dilated cardiomyopathy, systolic heart failure s/p PPM/AICD, CAD s/p CABG, DVT, CVA, COPD(home oxygen dependent), DM and lung cancer. Imagin11/2015 Echo: severe LV dysfunction with global hypokinesis; mild MR; mild to moderate TR; moderate pHTN 05/26/16 CXR: congestive changes 05/27/16 US abdomen: significant ascites Cardiology: CAD s/p CABG/Systolic heart failure Assessment/Plan: On dobutamine and lasix drips per cardiology orders On Aldactone. Monitor intake and output Daily weights Hypertension - chronic Assessment/Plan: On Lisinopril and coreg Hyperlipidemia - chronic Assessment/Plan: On Lipitor PSVT/ paroxysmal atrial flutter/DVT hx Assessment/Plan: On Amiodorone 400mg daily On Xarelto GI: Ascites Assessment/Plan: s/p paracentesis yesterday GI following Endocrine: Diabetes mellitus: Assessment/Plan: On Humalin R-U500, 30U TID before meals On Victoza : Chronic Kidney Disease - creatinine @ baseline Monitor on lasix drip Pulmonary: COPD - not in acute exacerbation Assessment/Plan: On Daily Decadrom 4mg Duonebs prn Integumentary: Venous stasis ulcers bilateral lower extremities - chronic Assessment/Plan: wound care consult entered to follow while in hospital Monitor F.E.N. Fluids: PO intake Electrolytes: bmp in a.m. Nutrition: diabetic low sodium Prophylaxis: DVT: on Xarelto GI: Protonix Visit type - Emergency Visit Emergency Visit: Yes ED Registration Date: 05/26/16 Care time: The patient presented to the Emergency Department on the above date and was hospitalized for further evaluation of their emergent condition. - New Patient This patient is new to me today: No - Critical Care Critical Care patient: No - Discharge Referral Referred to [facility] No
--- NOTE | 2016-05-30 13:18 | PATH ---
Cytology Non-Gynecological Report Patient Name: KYLE MURO Med. Rec. #: [id number] /Age/Gender: 1955 (Age: 61) / M Account: [id number] Location: 4 W TELEMETRY U Taken: 05/29/2016 Received: 05/29/2016 Reported: 05/30/2016 Physicians: Tobias Fox ACNP Specimen(s) Received A: RIGHT LOWER QUADRANT PERITONEAL FLUID IN 50% ALCOHOL B: RIGHT LOWER QUADRANT PERITONEAL FLUID FRESH Clinical History Ascites Final Diagnosis A.,B. ABDOMINAL FLUID, RIGHT LOWER QUADRANT, PARACENTESIS: SATISFACTORY FOR EVALUATION. NO MALIGNANT CELLS IDENTIFIED. REACTIVE MESOTHELIAL CELLS, HISTIOCYTES AND MIXED INFLAMMATORY CELLS INCLUDING NEUTROPHILS. Electronically Signed Harjinder Figueroa M.D. Gross Description A. Received is a 50 cc of yellow fluid in 50% alcohol. One cytofunnel slide and one cell block are made. B. Received is 8000 cc of yellow fluid fresh. One cytofunnel slide and one cell block are made.
[2016-05-30] MEDS: oxyCODONE HCL 5 MG TABLET PO PRN ×2 (14:03→20:55)
[2016-05-30] MEDS: ACETAMINOPHEN 325 MG TABLET (FP) PO PRN ×2 (14:04→20:56)
--- NOTE | 2016-05-30 14:34 | PN ---
Progress Note (short form) - Note Progress Note: There was no hepatic panel drawn the day of Mr. Holley's paracentesis as I had advised. The last albumin was from 05/27 was 3.1 making SAAG 1.1. The total protein in the peritoneal fluid was 4. This is high for ascites caused primarily by portal hypertension and is more consitent with cardiac etiology. Optimization of cardiac function per cardiology. Follow-up fluid cultures / cytology. Problem List - Problems (1) Ascites Code(s): R18.8 - OTHER ASCITES Qualifiers: Ascites type: other type Qualified Code(s): R18.8 - Other ascites
[2016-05-30 17:33] LABS: ALBUMIN 2.9 g/dl (3.4-5.0); BILIRUBIN,DIRECT 0.3 mg/dL (0.0-0.2)
[2016-05-30 17:34] LABS: TOT PROT 6.6 g/dl (6.4-8.2)
[2016-05-30] MEDS: COLLAGENASE CLOSTRIDIUM HIST. 30 GRAMS TUBE TP SCH (18:32)
[2016-05-30] MEDS: ATORVASTATIN CA 40 MG TABLET (FP) PO SCH (22:03)
[2016-05-30] MEDS: FUROSEMIDE INJECTION 100 MG in SODIUM CHLORIDE 90 ML IVPB SCH (23:36)
[2016-05-31] MEDS: ALBUTEROL SO4 2.5/IPRATROPIUM 0.5 INH SOL 3 ML VIAL.NEB. NEB SCH ×5 (06:32→22:50)
[2016-05-31] MEDS ORDERED: PT OWN MED DRAWER 7, Y5N ONE (06:47)
[2016-05-31] MEDS: INSULIN DETEMIR 100 UNITS/ML MDV SQ SCH (06:53)
[2016-05-31] MEDS: LIRAGLUTIDE 0.6 MG/0.1 ML PEN.INJCTR SQ SCH (06:55)
[2016-05-31] MEDS: HUMULIN R U SQ SCH ×3 (06:56→16:37)
[2016-05-31 08:01] LABS: BASOPHIL 0.1 % (0-2.0); EOSINOPHIL 0.1 % (0-4.5); MCH 30.7 pg (25.7-33.7); MCHC 33.5 g/dl (32.0-35.9); MEAN CELL VOLUME 91.7 fl (80-96); MEAN PLT VOLUME 9.6 fl (7.5-11.1); PLATELET COUNT 117 K/MM3 (134-434); WHITE BLOOD COUNT 7.3 K/mm3 (4.0-10.0)
[2016-05-31 08:08] LABS: CALCIUM 8.3 mg/dL (8.5-10.1); COCKROFT - GAULT 82.89; CREATININE 1.6 mg/dL (0.7-1.3); MAGNESIUM 1.9 mg/dL (1.8-2.4)
[2016-05-31] MEDS: TAMSULOSIN HCL 0.4 MG CAP.ER.24H (FP) PO SCH (08:40)
[2016-05-31] MEDS: AMIODARONE HCL 200 MG TABLET (FP) PO SCH ×2 (09:28→23:00)
[2016-05-31] MEDS: CARVEDILOL 3.125 MG TABLET (FP) PO SCH ×2 (09:29→22:59)
[2016-05-31] MEDS: PANTOPRAZOLE 40 MG TABLET (FP) PO SCH (09:30)
[2016-05-31] MEDS: DEXAMETHASONE 4 MG TABLET (FP) PO SCH (09:30)
[2016-05-31] MEDS: RIVAROXABAN 15 MG TABLET PO SCH (09:31)
[2016-05-31] MEDS: LISINOPRIL 5 MG TABLET (FP) PO SCH (09:31)
[2016-05-31] MEDS: CHOLECALCIFEROL (VITAMIN D3) 1,000 UNIT TABLET (FP) PO SCH (09:31)
[2016-05-31] MEDS: oxyCODONE HCL 5 MG TABLET PO PRN ×2 (09:32→17:41)
[2016-05-31] MEDS: GABAPENTIN 100 MG CAPSULE (FP) PO SCH (09:32)
[2016-05-31] MEDS: ACETAMINOPHEN 325 MG TABLET (FP) PO PRN ×2 (09:34→17:42)
[2016-05-31] MEDS: SPIRONOLACTONE 25 MG TABLET (FP) PO SCH ×2 (09:58→23:00)
--- NOTE | 2016-05-31 11:04 | PN ---
Progress Note, Physician History of Present Illness: Shortness of breath, orthopnea, anasarca improved with inotropic diuresis, large volume paracentesis and 20 lbs weight loss. PMD: Omar Mckeon MD ([place]) Data Analytics Architect: Ajay Gil MD ([place]) - Current Medication List Current Medications: Active Medications Acetaminophen (Tylenol -) 325 mg PO Q6H PRN PRN Reason: PAIN Last Admin: 05/31/16 09:34 Dose: 325 mg Albuterol/Ipratropium (Duoneb -) 1 amp NEB Q4HWA [facility] Last Admin: 05/31/16 06:32 Dose: 1 amp Amiodarone HCl (Cordarone -) 400 mg PO BID [facility] Last Admin: 05/31/16 09:28 Dose: 400 mg Atorvastatin Calcium (Lipitor -) 40 mg PO HS [facility] Last Admin: 05/30/16 22:03 Dose: 40 mg Carvedilol (Coreg -) 3.125 mg PO BID [facility] Last Admin: 05/31/16 09:29 Dose: 3.125 mg Cholecalciferol (Vitamin D3 -) 1,000 unit PO DAILY [facility] Last Admin: 05/31/16 09:31 Dose: 1,000 unit Clotrimazole (Lotrimin 1% Cream -) 1 applic TP BID [facility] Last Admin: 05/30/16 22:05 Dose: 1 applic Collagenase (Santyl -) 1 applic TP DAILY [facility] Last Admin: 05/30/16 18:32 Dose: 1 applic Dexamethasone (Decadron -) 4 mg PO DAILY [facility] Last Admin: 05/31/16 09:30 Dose: 4 mg Gabapentin (Neurontin -) 100 mg PO DAILY [facility] Last Admin: 05/31/16 09:32 Dose: 100 mg Furosemide 100 mg/ Sodium (Chloride) 100 mls @ 10 mls/hr IVPB ASDIR MAGEN PRN Reason: 10 MG/HR Last Admin: 05/30/16 23:36 Dose: 10 mls/hr Dobutamine HCl 250,000 mcg/ (Sodium Chloride) 250 mls @ 39.46 mls/hr IV ASDIR MAGEN; 5 MCG/KG/MIN PRN Reason: Protocol Last Admin: 05/30/16 22:23 Dose: 39 mls/hr Insulin Detemir (Levemir Vial) 70 units SQ AM [facility] Last Admin: 05/31/16 06:53 Dose: 70 units Liraglutide (Victoza -) 1.8 mg SQ DAILY@0700 [facility] Last Admin: 05/31/16 06:55 Dose: 1.8 mg Lisinopril (Prinivil) 5 mg PO DAILY [facility] Last Admin: 05/31/16 09:31 Dose: 5 mg Humulin R U-500 Pen (- Patient Own Med) 30 each SQ TIDAC [facility] Last Admin: 05/31/16 06:56 Dose: Not Given Nystatin (Nystop Powder -) 1 applic TP DAILY [facility] Last Admin: 05/30/16 09:11 Dose: 1 applic Oxycodone HCl (Roxicodone -) 5 mg PO Q6H PRN PRN Reason: PAIN Last Admin: 05/31/16 09:32 Dose: 5 mg Pantoprazole Sodium (Protonix -) 40 mg PO DAILY [facility] Last Admin: 05/31/16 09:30 Dose: 40 mg Rivaroxaban (Xarelto -) 15 mg PO DAILY [facility] Last Admin: 05/31/16 09:31 Dose: 15 mg Spironolactone (Aldactone -) 25 mg PO BID [facility] Last Admin: 05/31/16 09:58 Dose: 25 mg Tamsulosin HCl (Flomax -) 0.4 mg PO DAILY@0830 [facility] Last Admin: 05/31/16 08:40 Dose: 0.4 mg - Objective Vital Signs: Vital Signs Temperature 98.3 F 05/31/16 05:58 Pulse Rate 84 05/31/16 05:58 Respiratory Rate 20 05/31/16 05:58 Blood Pressure 130/90 05/31/16 05:58 O2 Sat by Pulse Oximetry (%) 96 05/30/16 21:00 Constitutional: Yes: No Distress, Calm Neck: Yes: Supple Cardiovascular: Yes: Regular Rate and Rhythm Respiratory: Yes: Regular, Diminished Gastrointestinal: Yes: Normal Bowel Sounds, Soft, Abdomen, Obese Edema: Yes Edema: LLE: 1+, RLE: 1+ Labs: CBC, BMP 05/31/16 05:40 05/31/16 05:40 INR, PTT INR 1.86 (0.82-1.09) H 05/27/16 06:05 Problem List - Problems (1) ASHD (arteriosclerotic heart disease) Code(s): I25.10 - ATHSCL HEART DISEASE OF [place] CORONARY ARTERY W/O ANG PCTRS (2) Acute on chronic systolic and diastolic heart failure, NYHA class 4 Code(s): I50.43 - ACUTE ON CHRONIC COMBINED SYSTOLIC AND DIASTOLIC HRT FAIL (3) CKD (chronic kidney disease) Code(s): N18.9 - CHRONIC KIDNEY DISEASE, UNSPECIFIED Qualifiers: Chronic kidney disease stage: stage 3 (moderate) Qualified Code(s): N18.3 - Chronic kidney disease, stage 3 (moderate) (4) COPD (chronic obstructive pulmonary disease) Code(s): J44.9 - CHRONIC OBSTRUCTIVE PULMONARY DISEASE, UNSPECIFIED Qualifiers : COPD type: chronic bronchitis (5) Diabetes mellitus Code(s): E11.9 - TYPE 2 DIABETES MELLITUS WITHOUT COMPLICATIONS Qualifiers: Diabetes mellitus type: type 2 Diabetes mellitus complication status: with kidney complications Diabetes mellitus complication detail: with chronic kidney disease Diabetes mellitus residential insulin use: with intermediate teacher use Chronic kidney disease stage: stage 4 (severe) Qualified Code(s): E11.22 - Type 2 diabetes mellitus with diabetic chronic kidney disease ; N18.1 - Chronic kidney disease, stage 1; Z79.4 - group home (current) use of insulin (6) Heart failure, systolic, with acute decompensation Code(s): I50.23 - ACUTE ON CHRONIC SYSTOLIC (CONGESTIVE) HEART FAILURE (7) Hx of CABG Code(s): Z95.1 - PRESENCE OF AORTOCORONARY BYPASS GRAFT (8) Ischemic cardiomyopathy Code(s): I25.5 - ISCHEMIC CARDIOMYOPATHY (9) S/P CABG (coronary artery bypass graft) Code(s): Z95.1 - PRESENCE OF AORTOCORONARY BYPASS GRAFT (10) Single implantable cardioverter-defibrillator (ICD) in situ Code(s): Z95.810 - PRESENCE OF AUTOMATIC (IMPLANTABLE) CARDIAC DEFIBRILLATOR (11) Type 2 diabetes mellitus with mild nonproliferative diabetic retinopathy without macular edema Code(s): E11.329 - TYPE 2 DIAB W MILD NONPRLF DIABETIC RTNOP W/O * DO NOT USE * Qualifiers: Diabetes mellitus residential insulin use: with intermediate teacher use Assessment/Plan 12/07/2015 Transthoracic echocardiography revealed severe LV systolic dysfunction with global hypokinesia, mild MR, mild to moderate TR. moderate pulmonary HTN 1. Acute on chronic severe LV systolic failure with ischemic cardiomyopathy with ascites post paracentesis, resolving clinically 2. CAD S/P CABG, angina pectoris 3. History of cardiac arrest post ICD 4. PSVT cannot exclude paroxysmal atrial flutter [id number] score of 5, recurrent arrhythmia 5. Home O2 dependent COPD with LLL infiltrates and pulmonary nodule 6. Type 2 diabetes mellitus 7. CVA 8. CKD 9. Morbid obesity 10. RLE DVT PLAN: 1. Wean off inotropic diuresis and Aldactone 25 bid with caution and close monitoring of renal function and electrolytes 3. Continue Lisinopril 5 qd with caution and close monitoring of renal function and electrolytes 4. Continue Coreg 3.125 bid with uptitration, hemodynamics permitting 5. Consider Entresto therapy as outpatient 6. Continue Xarelto 15 mg daily considering above CKD 7. Continue Lipitor 40 qhs 8. Continue Amiodarone oral load with eventual decrease dosage to 200 mg daily 9. BD, GI prophylaxis, O2 as needed, PT and mobilize
[2016-05-31] MEDS ORDERED: FUROSEMIDE INJECTION 100 MG in SODIUM CHLORIDE 90 ML IVPB SCH (11:21)
[2016-05-31] MEDS: DOBUTAMINE HCL 250,000 MCG in SODIUM CHLORIDE 230 ML IV SCH ×9 (12:00→17:29)
--- NOTE | 2016-05-31 12:51 | PN ---
Progress Note, Physician History of Present Illness: pulmonary alert,oob-chair,comfortable,-sob,ambulating - Current Medication List Current Medications: Active Medications Acetaminophen (Tylenol -) 325 mg PO Q6H PRN PRN Reason: PAIN Last Admin: 05/31/16 09:34 Dose: 325 mg Albuterol/Ipratropium (Duoneb -) 1 amp NEB Q4HWA [facility] Last Admin: 05/31/16 06:32 Dose: 1 amp Amiodarone HCl (Cordarone -) 400 mg PO BID [facility] Last Admin: 05/31/16 09:28 Dose: 400 mg Atorvastatin Calcium (Lipitor -) 40 mg PO HS [facility] Last Admin: 05/30/16 22:03 Dose: 40 mg Carvedilol (Coreg -) 3.125 mg PO BID [facility] Last Admin: 05/31/16 09:29 Dose: 3.125 mg Cholecalciferol (Vitamin D3 -) 1,000 unit PO DAILY [facility] Last Admin: 05/31/16 09:31 Dose: 1,000 unit Clotrimazole (Lotrimin 1% Cream -) 1 applic TP BID [facility] Last Admin: 05/30/16 22:05 Dose: 1 applic Collagenase (Santyl -) 1 applic TP DAILY [facility] Last Admin: 05/30/16 18:32 Dose: 1 applic Dexamethasone (Decadron -) 4 mg PO DAILY [facility] Last Admin: 05/31/16 09:30 Dose: 4 mg Furosemide (Lasix Injection -) 40 mg IVPB BID@0600,1400 [facility] Gabapentin (Neurontin -) 100 mg PO DAILY [facility] Last Admin: 05/31/16 09:32 Dose: 100 mg Dobutamine HCl 250,000 mcg/ (Sodium Chloride) 250 mls @ 19.73 mls/hr IV ASDIR MAGEN; 2.5 MCG/KG/MIN PRN Reason: Protocol Insulin Detemir (Levemir Vial) 70 units SQ AM [facility] Last Admin: 05/31/16 06:53 Dose: 70 units Liraglutide (Victoza -) 1.8 mg SQ DAILY@0700 [facility] Last Admin: 05/31/16 06:55 Dose: 1.8 mg Lisinopril (Prinivil) 5 mg PO DAILY [facility] Last Admin: 05/31/16 09:31 Dose: 5 mg Humulin R U-500 Pen (- Patient Own Med) 30 each SQ TIDAC [facility] Last Admin: 05/31/16 12:25 Dose: Not Given Nystatin (Nystop Powder -) 1 applic TP DAILY [facility] Last Admin: 05/30/16 09:11 Dose: 1 applic Oxycodone HCl (Roxicodone -) 5 mg PO Q6H PRN PRN Reason: PAIN Last Admin: 05/31/16 09:32 Dose: 5 mg Pantoprazole Sodium (Protonix -) 40 mg PO DAILY [facility] Last Admin: 05/31/16 09:30 Dose: 40 mg Rivaroxaban (Xarelto -) 15 mg PO DAILY [facility] Last Admin: 05/31/16 09:31 Dose: 15 mg Spironolactone (Aldactone -) 25 mg PO BID [facility] Last Admin: 05/31/16 09:58 Dose: 25 mg Tamsulosin HCl (Flomax -) 0.4 mg PO DAILY@0830 [facility] Last Admin: 05/31/16 08:40 Dose: 0.4 mg - Objective Vital Signs: Vital Signs Temperature 98.3 F 05/31/16 05:58 Pulse Rate 84 05/31/16 05:58 Respiratory Rate 20 05/31/16 05:58 Blood Pressure 130/90 05/31/16 05:58 O2 Sat by Pulse Oximetry (%) 96 05/30/16 21:00 Constitutional: Yes: Well Nourished, Calm Eyes: Yes: WNL HENT: Yes: WNL Neck: Yes: WNL Cardiovascular: Yes: Regular Rate and Rhythm, S1, S2 Respiratory: Yes: Diminished Gastrointestinal: Yes: Normal Bowel Sounds, Soft, Abdomen, Obese Extremities: Yes: WNL Edema: Yes Labs: CBC, BMP 05/31/16 05:40 05/31/16 05:40 INR, PTT INR 1.86 (0.82-1.09) H 05/27/16 06:05 Problem List - Problems (1) Ascites Code(s): R18.8 - OTHER ASCITES Qualifiers: Ascites type: other type Qualified Code(s): R18.8 - Other ascites (2) CHF (congestive heart failure) Code(s): I50.9 - HEART FAILURE, UNSPECIFIED Qualifiers: Congestive heart failure type: systolic Congestive heart failure chronicity: acute on chronic Qualified Code(s): I50.23 - Acute on chronic systolic (congestive) heart failure (3) CHF exacerbation Code(s): I50.9 - HEART FAILURE, UNSPECIFIED Qualifiers: Congestive heart failure type: unspecified congestive heart failure type Qualified Code(s): I50.9 - Heart failure, unspecified (4) CKD (chronic kidney disease) Code(s): N18.9 - CHRONIC KIDNEY DISEASE, UNSPECIFIED Qualifiers: Chronic kidney disease stage: stage 3 (moderate) Qualified Code(s): N18.3 - Chronic kidney disease, stage 3 (moderate) (5) Dyspnea on exertion Code(s): R06.09 - OTHER FORMS OF DYSPNEA (6) ASHD (arteriosclerotic heart disease) Code(s): I25.10 - ATHSCL HEART DISEASE OF [place] CORONARY ARTERY W/O ANG PCTRS (7) Acute on chronic systolic and diastolic heart failure, NYHA class 4 Code(s): I50.43 - ACUTE ON CHRONIC COMBINED SYSTOLIC AND DIASTOLIC HRT FAIL (8) COPD (chronic obstructive pulmonary disease) Code(s): J44.9 - CHRONIC OBSTRUCTIVE PULMONARY DISEASE, UNSPECIFIED Qualifiers : COPD type: chronic bronchitis (9) COPD exacerbation Code(s): J44.1 - CHRONIC OBSTRUCTIVE PULMONARY DISEASE W (ACUTE) EXACERBATION (10) Deep venous thrombosis Code(s): I82.409 - ACUTE EMBOLISM AND THOMBOS UNSP DEEP VN UNSP LOWER EXTREMITY Qualifiers: DVT location: lower extremity Affected thrombotic vein of extremity: unspecified vein of extremity Laterality: right Chronicity: acute Qualified Code(s): I82.401 - Acute embolism and thrombosis of unspecified deep veins of right lower extremity (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, managed as type 1 Code(s): E13.9 - OTHER SPECIFIED DIABETES MELLITUS WITHOUT COMPLICATIONS (12) Heart failure, systolic, with acute decompensation Code(s): I50.23 - ACUTE ON CHRONIC SYSTOLIC (CONGESTIVE) HEART FAILURE (13) Hepatitis B Code(s): B19.10 - UNSPECIFIED VIRAL HEPATITIS B WITHOUT HEPATIC COMA (14) Hx of CABG Code(s): Z95.1 - PRESENCE OF AORTOCORONARY BYPASS GRAFT (15) Hyperglycemia Code(s): R73.9 - HYPERGLYCEMIA, UNSPECIFIED (16) Ischemic cardiomyopathy Code(s): I25.5 - ISCHEMIC CARDIOMYOPATHY (17) LV dysfunction Code(s): I51.9 - HEART DISEASE, UNSPECIFIED (18) Lung nodule Code(s): R91.1 - SOLITARY PULMONARY NODULE (19) Morbid obesity Code(s): E66.01 - MORBID (SEVERE) OBESITY DUE TO EXCESS CALORIES Qualifiers: Obesity type: due to excess calories Qualified Code(s): E66.01 - Morbid (severe) obesity due to excess calories (20) S/P CABG (coronary artery bypass graft) Code(s): Z95.1 - PRESENCE OF AORTOCORONARY BYPASS GRAFT (21) Severe left ventricular systolic dysfunction Code(s): I51.9 - HEART DISEASE, UNSPECIFIED (22) Single implantable cardioverter-defibrillator (ICD) in situ Code(s): Z95.810 - PRESENCE OF AUTOMATIC (IMPLANTABLE) CARDIAC DEFIBRILLATOR (23) Tobacco abuse Code(s): Z72.0 - TOBACCO USE (24) Acute and chronic respiratory failure with hypoxia Code(s): J96.21 - ACUTE AND CHRONIC RESPIRATORY FAILURE WITH HYPOXIA Assessment/Plan IMP ACUTE ON CHRONIC HYPOXEMIC RESPIRATORY FAILURE ADVANCED COPD ON O2 DECOMPENSATED CHF ASCITES ISCHEMIC CARDIOMYOPATHY ASHD S/O CABG,S/P AICD H/O CARDIAC ARREST NIRANJAN MASS LIKELY CA S/P RT DM MORBID OBESITY CKD GOUT H/O DVT PLAN CONTINUE DIURETICS DOBUTAMINE O2 INHALED BRONCHODILATORS DAILY WTS MONITOR LYTES GLYCEMIC CONTROL DR BARBOSA Problem List - Problems (1) Ascites Code(s): R18.8 - OTHER ASCITES Qualifiers: Ascites type: other type Qualified Code(s): R18.8 - Other ascites (2) CHF (congestive heart failure) Code(s): I50.9 - HEART FAILURE, UNSPECIFIED Qualifiers: Congestive heart failure type: systolic Congestive heart failure chronicity: acute on chronic Qualified Code(s): I50.23 - Acute on chronic systolic (congestive) heart failure (3) CHF exacerbation Code(s): I50.9 - HEART FAILURE, UNSPECIFIED Qualifiers: Congestive heart failure type: unspecified congestive heart failure type Qualified Code(s): I50.9 - Heart failure, unspecified (4) CKD (chronic kidney disease) Code(s): N18.9 - CHRONIC KIDNEY DISEASE, UNSPECIFIED Qualifiers: Chronic kidney disease stage: stage 3 (moderate) Qualified Code(s): N18.3 - Chronic kidney disease, stage 3 (moderate) (5) Dyspnea on exertion Code(s): R06.09 - OTHER FORMS OF DYSPNEA (6) ASHD (arteriosclerotic heart disease) Code(s): I25.10 - ATHSCL HEART DISEASE OF [place] CORONARY ARTERY W/O ANG PCTRS (7) Acute on chronic systolic and diastolic heart failure, NYHA class 4 Code(s): I50.43 - ACUTE ON CHRONIC COMBINED SYSTOLIC AND DIASTOLIC HRT FAIL (8) COPD (chronic obstructive pulmonary disease) Code(s): J44.9 - CHRONIC OBSTRUCTIVE PULMONARY DISEASE, UNSPECIFIED Qualifiers : COPD type: chronic bronchitis (9) COPD exacerbation Code(s): J44.1 - CHRONIC OBSTRUCTIVE PULMONARY DISEASE W (ACUTE) EXACERBATION (10) Deep venous thrombosis Code(s): I82.409 - ACUTE EMBOLISM AND THOMBOS UNSP DEEP VN UNSP LOWER EXTREMITY Qualifiers: DVT location: lower extremity Affected thrombotic vein of extremity: unspecified vein of extremity Laterality: right Chronicity: acute Qualified Code(s): I82.401 - Acute embolism and thrombosis of unspecified deep veins of right lower extremity (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, managed as type 1 Code(s): E13.9 - OTHER SPECIFIED DIABETES MELLITUS WITHOUT COMPLICATIONS (12) Heart failure, systolic, with acute decompensation Code(s): I50.23 - ACUTE ON CHRONIC SYSTOLIC (CONGESTIVE) HEART FAILURE (13) Hepatitis B Code(s): B19.10 - UNSPECIFIED VIRAL HEPATITIS B WITHOUT HEPATIC COMA (14) Hx of CABG Code(s): Z95.1 - PRESENCE OF AORTOCORONARY BYPASS GRAFT (15) Hyperglycemia Code(s): R73.9 - HYPERGLYCEMIA, UNSPECIFIED (16) Ischemic cardiomyopathy Code(s): I25.5 - ISCHEMIC CARDIOMYOPATHY (17) LV dysfunction Code(s): I51.9 - HEART DISEASE, UNSPECIFIED (18) Lung nodule Code(s): R91.1 - SOLITARY PULMONARY NODULE (19) Morbid obesity Code(s): E66.01 - MORBID (SEVERE) OBESITY DUE TO EXCESS CALORIES Qualifiers: Obesity type: due to excess calories Qualified Code(s): E66.01 - Morbid (severe) obesity due to excess calories (20) S/P CABG (coronary artery bypass graft) Code(s): Z95.1 - PRESENCE OF AORTOCORONARY BYPASS GRAFT (21) Severe left ventricular systolic dysfunction Code(s): I51.9 - HEART DISEASE, UNSPECIFIED (22) Single implantable cardioverter-defibrillator (ICD) in situ Code(s): Z95.810 - PRESENCE OF AUTOMATIC (IMPLANTABLE) CARDIAC DEFIBRILLATOR (23) Tobacco abuse Code(s): Z72.0 - TOBACCO USE (24) Acute and chronic respiratory failure with hypoxia Code(s): J96.21 - ACUTE AND CHRONIC RESPIRATORY FAILURE WITH HYPOXIA
[2016-05-31] MEDS: FUROSEMIDE 40 MG/4 ML INJECTABLE VIAL IVPB SCH (13:46)
[2016-05-31] MEDS ORDERED: FUROSEMIDE 40 MG/4 ML INJECTABLE VIAL IVPB SCH (14:00)
[2016-05-31] MEDS ORDERED: FUROSEMIDE 100 MG/10 ML INJECTABLE VIAL IVPB SCH (14:00)
[2016-05-31] MEDS: CLOTRIMAZOLE 1% CREAM 15 GM TUBE TP SCH ×2 (18:33→23:05)
[2016-05-31] MEDS: NYSTATIN POWDER 100,000 UNITS/GM - 15 GM TOPICAL POWDER TP SCH (18:33)
--- NOTE | 2016-05-31 18:33 | PN ---
Physical Exam: SUBJECTIVE: Patient seen and examined. He feels well, he wants to walk with his walker and refuses a correction. OBJECTIVE: Vital Signs Period Temp Pulse Resp BP Sys/Mcconnell Pulse Ox Last 24 Hr 97.8 F-98.5 F 65-85 20-20 86-130/48-90 94-98 PE Neuro: alert, awake, cn 2-12intact Pulm: basilar crackles +Nc CV: s1 s2 regularly irregular Abd: soft large panus erythema to skin fold, lower abd irregular skin mass near lower panus Ext: bilateral le wounds draining, +2 pitting edema Laboratory Results - last 24 hr 05/31/16 05/31/16 05/31/16 00:13 05:27 05:40 WBC 7.3 RBC 3.87 L Hgb 11.9 Hct 35.4 MCV 91.7 MCHC 33.5 RDW 18.0 H Plt Count 117 L MPV 9.6 Neutrophils % 84.0 H Lymphocytes % 6.6 L Monocytes % 9.2 Eosinophils % 0.1 Basophils % 0.1 Sodium Potassium Chloride Carbon Dioxide Anion Gap BUN Creatinine POC Glucometer 244 228 Random Glucose Calcium Phosphorus Magnesium 05/31/16 05/31/16 05/31/16 05:40 12:07 16:30 WBC RBC Hgb Hct MCV MCHC RDW Plt Count MPV Neutrophils % Lymphocytes % Monocytes % Eosinophils % Basophils % Sodium 140 Potassium 4.0 Chloride 97 L Carbon Dioxide 37 H Anion Gap 6 L BUN 33 H Creatinine 1.6 H POC Glucometer 252 196 Random Glucose 229 H Calcium 8.3 L Phosphorus 3.0 D Magnesium 1.9 Laboratory Tests 05/28/16 06:20 Hep B Core Total Ab Positive H Active Medications Generic Name Dose Route Start Last Admin Trade Name Freq PRN Reason Stop Dose Admin Acetaminophen 325 mg 05/27/16 21:07 05/31/16 17:42 Tylenol - PO 325 mg Q6H PRN Administration PAIN Albuterol/Ipratropium 1 amp 05/26/16 22:00 05/31/16 14:27 Duoneb - NEB 1 amp Q4HWA MAGEN Administration Amiodarone HCl 400 mg 05/29/16 10:00 05/31/16 09:28 Cordarone - PO 400 mg BID MAGEN Administration Atorvastatin Calcium 40 mg 05/26/16 22:00 05/30/16 22:03 Lipitor - PO 40 mg HS MAGEN Administration Carvedilol 3.125 mg 05/26/16 22:00 05/31/16 09:29 Coreg - PO 3.125 mg BID MAGEN Administration Cholecalciferol 1,000 unit 05/27/16 10:00 05/31/16 09:31 Vitamin D3 - PO 1,000 unit DAILY [facility] Administration Clotrimazole 1 applic 05/26/16 22:00 05/30/16 22:05 Lotrimin 1% Cream - TP 1 applic BID MAGEN Administration Collagenase 1 applic 05/29/16 20:00 05/30/16 18:32 Santyl - TP 1 applic DAILY [facility] Administration Dexamethasone 4 mg 05/27/16 10:00 05/31/16 09:30 Decadron - PO 4 mg DAILY [facility] Administration Furosemide 40 mg 05/31/16 14:00 05/31/16 13:46 Lasix Injection - IVPB 40 mg BID@0600,1400 [facility] Administration Gabapentin 100 mg 05/27/16 10:00 05/31/16 09:32 Neurontin - PO 100 mg DAILY [facility] Administration Insulin Detemir 70 units 05/27/16 07:00 05/31/16 06:53 Levemir Vial SQ 70 units AM [facility] Administration Liraglutide 1.8 mg 05/27/16 07:00 05/31/16 06:55 Victoza - SQ 1.8 mg DAILY@0700 [facility] Administration Lisinopril 5 mg 05/27/16 10:00 05/31/16 09:31 Prinivil PO 5 mg DAILY [facility] Administration Humulin R U-500 Pen 30 each 05/29/16 07:00 05/31/16 16:37 - Patient Own Med SQ Not Given TIDAC [facility] Nystatin 1 applic 05/26/16 17:15 05/30/16 09:11 Nystop Powder - TP 1 applic DAILY [facility] Administration Oxycodone HCl 5 mg 05/31/16 09:20 05/31/16 17:41 Roxicodone - PO 5 mg Q6H PRN Administration PAIN Pantoprazole Sodium 40 mg 05/30/16 10:00 05/31/16 09:30 Protonix - PO 40 mg DAILY [facility] Administration Rivaroxaban 15 mg 05/30/16 10:00 05/31/16 09:31 Xarelto - PO 15 mg DAILY [facility] Administration Spironolactone 25 mg 05/27/16 13:30 05/31/16 09:58 Aldactone - PO 25 mg BID [facility] Administration Tamsulosin HCl 0.4 mg 05/27/16 08:30 05/31/16 08:40 Flomax - PO 0.4 mg DAILY@0830 [facility] Administration Imagin12/07/2015 Transthoracic echocardiography revealed severe LV systolic dysfunction with global hypokinesia, mild MR, mild to moderate TR. moderate pulmonary HTN Assessment: 61 year old male with a significant past medical history of HTN, HLD , ischemic dilated cardiomyopathy, systolic heart failure s/p PPM/AICD, CAD s/ p CABG, DVT, CVA, COPD(home oxygen dependent), DM and lung cancer, morbid obesity admitted with SOB and weight gain. Plan: 1. Acute on chronic severe LV systolic CHF w/ ischemic cardiomyopathy - Taper dobutamine and lasix gtt - Aldactone 25mg BID - Coreg 3.125mg BID - Entresto as outpt - Daily weights 2. PSVT/ paroxysmal atrial flutter/DVT hx - Amiodarone 400mg daily, transition to 200mg when loading complete - Xarelto 15mg daily, monitor renal fxn, may need to change d/t CKD and elevated BMI - Will d/w cardiology 3. COPD with pulmonary nodule - Decadron 4mg daily - [facility] 4. Hypertension - Lisinopril 5mg daily 5. Ascities - s/p paracentesis 05/29 - SAAG criteria 1.1 indicating PortalHTN - Continue diuresis 6. DM II - Humalin R-U500, 30U TID before meals - Victoza daily 7. CKD - Improving with diuresis; monitor renal fx 8. Venous stasis ulcers bilateral lower extremities - daily wound care with santyl per vascular 9. CAD s/p CABG/ hx cardiac arrest post ICD - ASA daily - Statin 10. hep b core ab positive - Check hep b abg igm and profile Visit type - Emergency Visit Emergency Visit: Yes ED Registration Date: 05/26/16 Care time: The patient presented to the Emergency Department on the above date and was hospitalized for further evaluation of their emergent condition. - New Patient This patient is new to me today: Yes Date on this admission: 05/31/16 - Critical Care Critical Care patient: No
[2016-05-31] MEDS: ATORVASTATIN CA 40 MG TABLET (FP) PO SCH (23:00)
[2016-05-31] MEDS: COLLAGENASE CLOSTRIDIUM HIST. 30 GRAMS TUBE TP SCH (23:05)
[2016-06-01] MEDS: FUROSEMIDE 40 MG/4 ML INJECTABLE VIAL IVPB SCH ×2 (06:59→15:47)
[2016-06-01] MEDS: ALBUTEROL SO4 2.5/IPRATROPIUM 0.5 INH SOL 3 ML VIAL.NEB. NEB SCH ×5 (07:02→22:00)
[2016-06-01 08:28] LABS: ALBUMIN 2.9 g/dl (3.4-5.0); CALCIUM 8.8 mg/dL (8.5-10.1)
[2016-06-01 08:31] LABS: COCKROFT - GAULT 71.28; CREATININE 1.9 mg/dL (0.7-1.3); TOT PROT 6.4 g/dl (6.4-8.2)
[2016-06-01 08:50] LABS: BASOPHIL 0.1 % (0-2.0); EOSINOPHIL 0.8 % (0-4.5); MCH 30.3 pg (25.7-33.7); MEAN CELL VOLUME 91.8 fl (80-96); MEAN PLT VOLUME 9.7 fl (7.5-11.1); NEUTROPHILS 81.9 % (42.8-82.8); PLATELET COUNT 124 K/MM3 (134-434); RDW 18.3 % (11.9-15.9); WHITE BLOOD COUNT 8.6 K/mm3 (4.0-10.0)
[2016-06-01] MEDS: INSULIN DETEMIR 100 UNITS/ML MDV SQ SCH (08:59)
[2016-06-01] MEDS: HUMULIN R U SQ SCH ×3 (09:00→15:48)
[2016-06-01] MEDS: LIRAGLUTIDE 0.6 MG/0.1 ML PEN.INJCTR SQ SCH (09:02)
[2016-06-01] MEDS: oxyCODONE HCL 5 MG TABLET PO PRN ×2 (09:22→17:46)
[2016-06-01] MEDS: GABAPENTIN 100 MG CAPSULE (FP) PO SCH (09:51)
[2016-06-01] MEDS: AMIODARONE HCL 200 MG TABLET (FP) PO SCH (09:51)
[2016-06-01] MEDS: PANTOPRAZOLE 40 MG TABLET (FP) PO SCH (09:52)
[2016-06-01] MEDS: CHOLECALCIFEROL (VITAMIN D3) 1,000 UNIT TABLET (FP) PO SCH (09:52)
[2016-06-01] MEDS: RIVAROXABAN 15 MG TABLET PO SCH (09:52)
[2016-06-01] MEDS: SPIRONOLACTONE 25 MG TABLET (FP) PO SCH ×2 (09:53→22:37)
[2016-06-01] MEDS: DEXAMETHASONE 4 MG TABLET (FP) PO SCH (09:53)
[2016-06-01] MEDS: TAMSULOSIN HCL 0.4 MG CAP.ER.24H (FP) PO SCH (09:53)
[2016-06-01] MEDS: LISINOPRIL 5 MG TABLET (FP) PO SCH (09:54)
[2016-06-01] MEDS: CARVEDILOL 3.125 MG TABLET (FP) PO SCH ×2 (09:54→22:37)
[2016-06-01] MEDS: COLLAGENASE CLOSTRIDIUM HIST. 30 GRAMS TUBE TP SCH (09:56)
[2016-06-01] MEDS: NYSTATIN POWDER 100,000 UNITS/GM - 15 GM TOPICAL POWDER TP SCH (10:17)
[2016-06-01] MEDS: CLOTRIMAZOLE 1% CREAM 15 GM TUBE TP SCH ×2 (10:18→22:41)
--- NOTE | 2016-06-01 10:58 | PN ---
Progress Note, Physician History of Present Illness: pulmonary alert,oob-chair,comfortable,less dyspneic,o2 sat 98% on ra - Current Medication List Current Medications: Active Medications Acetaminophen (Tylenol -) 325 mg PO Q6H PRN PRN Reason: PAIN Last Admin: 05/31/16 17:42 Dose: 325 mg Albuterol/Ipratropium (Duoneb -) 1 amp NEB Q4HWA [facility] Last Admin: 06/01/16 07:02 Dose: 1 amp Amiodarone HCl (Cordarone -) 400 mg PO BID [facility] Last Admin: 06/01/16 09:51 Dose: 400 mg Atorvastatin Calcium (Lipitor -) 40 mg PO HS [facility] Last Admin: 05/31/16 23:00 Dose: 40 mg Carvedilol (Coreg -) 3.125 mg PO BID [facility] Last Admin: 06/01/16 09:54 Dose: Not Given Cholecalciferol (Vitamin D3 -) 1,000 unit PO DAILY [facility] Last Admin: 06/01/16 09:52 Dose: 1,000 unit Clotrimazole (Lotrimin 1% Cream -) 1 applic TP BID [facility] Last Admin: 06/01/16 10:18 Dose: Not Given Collagenase (Santyl -) 1 applic TP DAILY [facility] Last Admin: 06/01/16 09:56 Dose: Not Given Dexamethasone (Decadron -) 4 mg PO DAILY [facility] Last Admin: 06/01/16 09:53 Dose: 4 mg Furosemide (Lasix Injection -) 40 mg IVPB BID@0600,1400 [facility] Last Admin: 06/01/16 06:59 Dose: 40 mg Gabapentin (Neurontin -) 100 mg PO DAILY [facility] Last Admin: 06/01/16 09:51 Dose: 100 mg Insulin Detemir (Levemir Vial) 70 units SQ AM [facility] Last Admin: 06/01/16 08:59 Dose: 70 units Liraglutide (Victoza -) 1.8 mg SQ DAILY@0700 [facility] Last Admin: 06/01/16 09:02 Dose: 1.8 mg Lisinopril (Prinivil) 5 mg PO DAILY [facility] Last Admin: 06/01/16 09:54 Dose: Not Given Humulin R U-500 Pen (- Patient Own Med) 30 each SQ TIDAC [facility] Last Admin: 06/01/16 09:00 Dose: 30 each Nystatin (Nystop Powder -) 1 applic TP DAILY [facility] Last Admin: 06/01/16 10:17 Dose: 1 applic Oxycodone HCl (Roxicodone -) 5 mg PO Q6H PRN PRN Reason: PAIN Last Admin: 06/01/16 09:22 Dose: 5 mg Pantoprazole Sodium (Protonix -) 40 mg PO DAILY [facility] Last Admin: 06/01/16 09:52 Dose: 40 mg Rivaroxaban (Xarelto -) 15 mg PO DAILY [facility] Last Admin: 06/01/16 09:52 Dose: 15 mg Spironolactone (Aldactone -) 25 mg PO BID [facility] Last Admin: 06/01/16 09:53 Dose: Not Given Tamsulosin HCl (Flomax -) 0.4 mg PO DAILY@0830 [facility] Last Admin: 06/01/16 09:53 Dose: Not Given - Objective Vital Signs: Vital Signs Temperature 98.4 F 06/01/16 02:33 Pulse Rate 64 06/01/16 09:56 Respiratory Rate 20 06/01/16 09:56 Blood Pressure 95/54 06/01/16 09:57 O2 Sat by Pulse Oximetry (%) 97 05/31/16 21:00 Constitutional: Yes: Calm, Obese Eyes: Yes: WNL HENT: Yes: WNL Cardiovascular: Yes: Regular Rate and Rhythm, S1, S2 Respiratory: Yes: Diminished Gastrointestinal: Yes: Normal Bowel Sounds, Soft Extremities: Yes: WNL Edema: Yes Labs: CBC, BMP 06/01/16 05:58 06/01/16 05:58 INR, PTT INR 1.86 (0.82-1.09) H 05/27/16 06:05 Problem List - Problems (1) Ascites Code(s): R18.8 - OTHER ASCITES Qualifiers: Ascites type: other type Qualified Code(s): R18.8 - Other ascites (2) CHF (congestive heart failure) Code(s): I50.9 - HEART FAILURE, UNSPECIFIED Qualifiers: Congestive heart failure type: systolic Congestive heart failure chronicity: acute on chronic Qualified Code(s): I50.23 - Acute on chronic systolic (congestive) heart failure (3) CHF exacerbation Code(s): I50.9 - HEART FAILURE, UNSPECIFIED Qualifiers: Congestive heart failure type: unspecified congestive heart failure type Qualified Code(s): I50.9 - Heart failure, unspecified (4) CKD (chronic kidney disease) Code(s): N18.9 - CHRONIC KIDNEY DISEASE, UNSPECIFIED Qualifiers: Chronic kidney disease stage: stage 3 (moderate) Qualified Code(s): N18.3 - Chronic kidney disease, stage 3 (moderate) (5) Dyspnea on exertion Code(s): R06.09 - OTHER FORMS OF DYSPNEA (6) ASHD (arteriosclerotic heart disease) Code(s): I25.10 - ATHSCL HEART DISEASE OF [place] CORONARY ARTERY W/O ANG PCTRS (7) Acute on chronic systolic and diastolic heart failure, NYHA class 4 Code(s): I50.43 - ACUTE ON CHRONIC COMBINED SYSTOLIC AND DIASTOLIC HRT FAIL (8) COPD (chronic obstructive pulmonary disease) Code(s): J44.9 - CHRONIC OBSTRUCTIVE PULMONARY DISEASE, UNSPECIFIED Qualifiers : COPD type: chronic bronchitis (9) COPD exacerbation Code(s): J44.1 - CHRONIC OBSTRUCTIVE PULMONARY DISEASE W (ACUTE) EXACERBATION (10) Deep venous thrombosis Code(s): I82.409 - ACUTE EMBOLISM AND THOMBOS UNSP DEEP VN UNSP LOWER EXTREMITY Qualifiers: DVT location: lower extremity Affected thrombotic vein of extremity: unspecified vein of extremity Laterality: right Chronicity: acute Qualified Code(s): I82.401 - Acute embolism and thrombosis of unspecified deep veins of right lower extremity (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, managed as type 1 Code(s): E13.9 - OTHER SPECIFIED DIABETES MELLITUS WITHOUT COMPLICATIONS (12) Heart failure, systolic, with acute decompensation Code(s): I50.23 - ACUTE ON CHRONIC SYSTOLIC (CONGESTIVE) HEART FAILURE (13) Hepatitis B Code(s): B19.10 - UNSPECIFIED VIRAL HEPATITIS B WITHOUT HEPATIC COMA (14) Hx of CABG Code(s): Z95.1 - PRESENCE OF AORTOCORONARY BYPASS GRAFT (15) Hyperglycemia Code(s): R73.9 - HYPERGLYCEMIA, UNSPECIFIED (16) Ischemic cardiomyopathy Code(s): I25.5 - ISCHEMIC CARDIOMYOPATHY (17) LV dysfunction Code(s): I51.9 - HEART DISEASE, UNSPECIFIED (18) Lung nodule Code(s): R91.1 - SOLITARY PULMONARY NODULE (19) Morbid obesity Code(s): E66.01 - MORBID (SEVERE) OBESITY DUE TO EXCESS CALORIES Qualifiers: Obesity type: due to excess calories Qualified Code(s): E66.01 - Morbid (severe) obesity due to excess calories (20) S/P CABG (coronary artery bypass graft) Code(s): Z95.1 - PRESENCE OF AORTOCORONARY BYPASS GRAFT (21) Severe left ventricular systolic dysfunction Code(s): I51.9 - HEART DISEASE, UNSPECIFIED (22) Single implantable cardioverter-defibrillator (ICD) in situ Code(s): Z95.810 - PRESENCE OF AUTOMATIC (IMPLANTABLE) CARDIAC DEFIBRILLATOR (23) Tobacco abuse Code(s): Z72.0 - TOBACCO USE (24) Acute and chronic respiratory failure with hypoxia Code(s): J96.21 - ACUTE AND CHRONIC RESPIRATORY FAILURE WITH HYPOXIA Assessment/Plan IMP ACUTE ON CHRONIC HYPOXEMIC RESPIRATORY FAILURE improving ADVANCED COPD ON O2 DECOMPENSATED CHF improving ASCITES ISCHEMIC CARDIOMYOPATHY ASHD S/O CABG,S/P AICD H/O CARDIAC ARREST NIRANJAN MASS LIKELY CA S/P RT DM MORBID OBESITY CKD GOUT H/O DVT PLAN CONTINUE DIURETICS O2 INHALED BRONCHODILATORS DAILY WTS MONITOR LYTES GLYCEMIC CONTROL DR BARBOSA Problem List - Problems (1) Ascites Code(s): R18.8 - OTHER ASCITES Qualifiers: Ascites type: other type Qualified Code(s): R18.8 - Other ascites (2) CHF (congestive heart failure) Code(s): I50.9 - HEART FAILURE, UNSPECIFIED Qualifiers: Congestive heart failure type: systolic Congestive heart failure chronicity: acute on chronic Qualified Code(s): I50.23 - Acute on chronic systolic (congestive) heart failure (3) CHF exacerbation Code(s): I50.9 - HEART FAILURE, UNSPECIFIED Qualifiers: Congestive heart failure type: unspecified congestive heart failure type Qualified Code(s): I50.9 - Heart failure, unspecified (4) CKD (chronic kidney disease) Code(s): N18.9 - CHRONIC KIDNEY DISEASE, UNSPECIFIED Qualifiers: Chronic kidney disease stage: stage 3 (moderate) Qualified Code(s): N18.3 - Chronic kidney disease, stage 3 (moderate) (5) Dyspnea on exertion Code(s): R06.09 - OTHER FORMS OF DYSPNEA (6) ASHD (arteriosclerotic heart disease) Code(s): I25.10 - ATHSCL HEART DISEASE OF [place] CORONARY ARTERY W/O ANG PCTRS (7) Acute on chronic systolic and diastolic heart failure, NYHA class 4 Code(s): I50.43 - ACUTE ON CHRONIC COMBINED SYSTOLIC AND DIASTOLIC HRT FAIL (8) COPD (chronic obstructive pulmonary disease) Code(s): J44.9 - CHRONIC OBSTRUCTIVE PULMONARY DISEASE, UNSPECIFIED Qualifiers : COPD type: chronic bronchitis (9) COPD exacerbation Code(s): J44.1 - CHRONIC OBSTRUCTIVE PULMONARY DISEASE W (ACUTE) EXACERBATION (10) Deep venous thrombosis Code(s): I82.409 - ACUTE EMBOLISM AND THOMBOS UNSP DEEP VN UNSP LOWER EXTREMITY Qualifiers: DVT location: lower extremity Affected thrombotic vein of extremity: unspecified vein of extremity Laterality: right Chronicity: acute Qualified Code(s): I82.401 - Acute embolism and thrombosis of unspecified deep veins of right lower extremity (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, managed as type 1 Code(s): E13.9 - OTHER SPECIFIED DIABETES MELLITUS WITHOUT COMPLICATIONS (12) Heart failure, systolic, with acute decompensation Code(s): I50.23 - ACUTE ON CHRONIC SYSTOLIC (CONGESTIVE) HEART FAILURE (13) Hepatitis B Code(s): B19.10 - UNSPECIFIED VIRAL HEPATITIS B WITHOUT HEPATIC COMA (14) Hx of CABG Code(s): Z95.1 - PRESENCE OF AORTOCORONARY BYPASS GRAFT (15) Hyperglycemia Code(s): R73.9 - HYPERGLYCEMIA, UNSPECIFIED (16) Ischemic cardiomyopathy Code(s): I25.5 - ISCHEMIC CARDIOMYOPATHY (17) LV dysfunction Code(s): I51.9 - HEART DISEASE, UNSPECIFIED (18) Lung nodule Code(s): R91.1 - SOLITARY PULMONARY NODULE (19) Morbid obesity Code(s): E66.01 - MORBID (SEVERE) OBESITY DUE TO EXCESS CALORIES Qualifiers: Obesity type: due to excess calories Qualified Code(s): E66.01 - Morbid (severe) obesity due to excess calories (20) S/P CABG (coronary artery bypass graft) Code(s): Z95.1 - PRESENCE OF AORTOCORONARY BYPASS GRAFT (21) Severe left ventricular systolic dysfunction Code(s): I51.9 - HEART DISEASE, UNSPECIFIED (22) Single implantable cardioverter-defibrillator (ICD) in situ Code(s): Z95.810 - PRESENCE OF AUTOMATIC (IMPLANTABLE) CARDIAC DEFIBRILLATOR (23) Tobacco abuse Code(s): Z72.0 - TOBACCO USE (24) Acute and chronic respiratory failure with hypoxia Code(s): J96.21 - ACUTE AND CHRONIC RESPIRATORY FAILURE WITH HYPOXIA
--- NOTE | 2016-06-01 11:06 | PN ---
Progress Note, Physician History of Present Illness: Shortness of breath, orthopnea, anasarca improved with inotropic diuresis, large volume paracentesis and 20 lbs weight loss. Asymptomatic hypotension. PMD: Omar Mckeon MD ([place]) Reflow Operator: Ajay Gil MD ([place]) - Current Medication List Current Medications: Active Medications Acetaminophen (Tylenol -) 325 mg PO Q6H PRN PRN Reason: PAIN Last Admin: 05/31/16 17:42 Dose: 325 mg Albuterol/Ipratropium (Duoneb -) 1 amp NEB Q4HWA [facility] Last Admin: 06/01/16 07:02 Dose: 1 amp Amiodarone HCl (Cordarone -) 400 mg PO BID [facility] Last Admin: 06/01/16 09:51 Dose: 400 mg Atorvastatin Calcium (Lipitor -) 40 mg PO HS [facility] Last Admin: 05/31/16 23:00 Dose: 40 mg Carvedilol (Coreg -) 3.125 mg PO BID [facility] Last Admin: 06/01/16 09:54 Dose: Not Given Cholecalciferol (Vitamin D3 -) 1,000 unit PO DAILY [facility] Last Admin: 06/01/16 09:52 Dose: 1,000 unit Clotrimazole (Lotrimin 1% Cream -) 1 applic TP BID [facility] Last Admin: 06/01/16 10:18 Dose: Not Given Collagenase (Santyl -) 1 applic TP DAILY [facility] Last Admin: 06/01/16 09:56 Dose: Not Given Dexamethasone (Decadron -) 4 mg PO DAILY [facility] Last Admin: 06/01/16 09:53 Dose: 4 mg Furosemide (Lasix Injection -) 40 mg IVPB BID@0600,1400 [facility] Last Admin: 06/01/16 06:59 Dose: 40 mg Gabapentin (Neurontin -) 100 mg PO DAILY [facility] Last Admin: 06/01/16 09:51 Dose: 100 mg Insulin Detemir (Levemir Vial) 70 units SQ AM [facility] Last Admin: 06/01/16 08:59 Dose: 70 units Liraglutide (Victoza -) 1.8 mg SQ DAILY@0700 [facility] Last Admin: 06/01/16 09:02 Dose: 1.8 mg Lisinopril (Prinivil) 5 mg PO DAILY [facility] Last Admin: 06/01/16 09:54 Dose: Not Given Humulin R U-500 Pen (- Patient Own Med) 30 each SQ TIDAC [facility] Last Admin: 06/01/16 09:00 Dose: 30 each Nystatin (Nystop Powder -) 1 applic TP DAILY [facility] Last Admin: 06/01/16 10:17 Dose: 1 applic Oxycodone HCl (Roxicodone -) 5 mg PO Q6H PRN PRN Reason: PAIN Last Admin: 06/01/16 09:22 Dose: 5 mg Pantoprazole Sodium (Protonix -) 40 mg PO DAILY [facility] Last Admin: 06/01/16 09:52 Dose: 40 mg Rivaroxaban (Xarelto -) 15 mg PO DAILY [facility] Last Admin: 06/01/16 09:52 Dose: 15 mg Spironolactone (Aldactone -) 25 mg PO BID [facility] Last Admin: 06/01/16 09:53 Dose: Not Given Tamsulosin HCl (Flomax -) 0.4 mg PO DAILY@0830 [facility] Last Admin: 06/01/16 09:53 Dose: Not Given - Objective Vital Signs: Vital Signs Temperature 98.4 F 06/01/16 02:33 Pulse Rate 64 06/01/16 09:56 Respiratory Rate 20 06/01/16 09:56 Blood Pressure 95/54 06/01/16 09:57 O2 Sat by Pulse Oximetry (%) 97 05/31/16 21:00 Constitutional: Yes: No Distress, Calm Neck: Yes: Supple Cardiovascular: Yes: Regular Rate and Rhythm Respiratory: Yes: Regular, Diminished Gastrointestinal: Yes: Normal Bowel Sounds, Soft, Abdomen, Obese Edema: Yes Edema: LLE: Trace, RLE: Trace Labs: CBC, BMP 06/01/16 05:58 06/01/16 05:58 INR, PTT INR 1.86 (0.82-1.09) H 05/27/16 06:05 Problem List - Problems (1) ASHD (arteriosclerotic heart disease) Code(s): I25.10 - ATHSCL HEART DISEASE OF [place] CORONARY ARTERY W/O ANG PCTRS (2) Acute on chronic systolic and diastolic heart failure, NYHA class 4 Code(s): I50.43 - ACUTE ON CHRONIC COMBINED SYSTOLIC AND DIASTOLIC HRT FAIL (3) CKD (chronic kidney disease) Code(s): N18.9 - CHRONIC KIDNEY DISEASE, UNSPECIFIED Qualifiers: Chronic kidney disease stage: stage 3 (moderate) Qualified Code(s): N18.3 - Chronic kidney disease, stage 3 (moderate) (4) COPD (chronic obstructive pulmonary disease) Code(s): J44.9 - CHRONIC OBSTRUCTIVE PULMONARY DISEASE, UNSPECIFIED Qualifiers : COPD type: chronic bronchitis (5) Diabetes mellitus Code(s): E11.9 - TYPE 2 DIABETES MELLITUS WITHOUT COMPLICATIONS Qualifiers: Diabetes mellitus type: type 2 Diabetes mellitus complication status: with kidney complications Diabetes mellitus complication detail: with chronic kidney disease Diabetes mellitus intermediate project manager insulin use: with snf use Chronic kidney disease stage: stage 4 (severe) Qualified Code(s): E11.22 - Type 2 diabetes mellitus with diabetic chronic kidney disease ; N18.1 - Chronic kidney disease, stage 1; Z79.4 - intermediate project manager (current) use of insulin (6) Heart failure, systolic, with acute decompensation Code(s): I50.23 - ACUTE ON CHRONIC SYSTOLIC (CONGESTIVE) HEART FAILURE (7) Hx of CABG Code(s): Z95.1 - PRESENCE OF AORTOCORONARY BYPASS GRAFT (8) Ischemic cardiomyopathy Code(s): I25.5 - ISCHEMIC CARDIOMYOPATHY (9) S/P CABG (coronary artery bypass graft) Code(s): Z95.1 - PRESENCE OF AORTOCORONARY BYPASS GRAFT (10) Single implantable cardioverter-defibrillator (ICD) in situ Code(s): Z95.810 - PRESENCE OF AUTOMATIC (IMPLANTABLE) CARDIAC DEFIBRILLATOR (11) Type 2 diabetes mellitus with mild nonproliferative diabetic retinopathy without macular edema Code(s): E11.329 - TYPE 2 DIAB W MILD NONPRLF DIABETIC RTNOP W/O * DO NOT USE * Qualifiers: Diabetes mellitus snf insulin use: with intermediate project manager use Assessment/Plan 12/07/2015 Transthoracic echocardiography revealed severe LV systolic dysfunction with global hypokinesia, mild MR, mild to moderate TR. moderate pulmonary HTN 1. Acute on chronic severe LV systolic failure with ischemic cardiomyopathy with ascites post paracentesis, resolving clinically 2. CAD S/P CABG, angina pectoris 3. History of cardiac arrest post ICD 4. PSVT cannot exclude paroxysmal atrial flutter [id number] score of 5, recurrent arrhythmia 5. Home O2 dependent COPD, NIRANJAN ca post XRT 6. Type 2 diabetes mellitus 7. CVA 8. CKD 9. Morbid obesity 10. RLE DVT PLAN: 1. Resume oral diuresis with Demadex 40 bid and Aldactone 25 bid with caution and close monitoring of renal function and electrolytes 3. Continue Lisinopril 5 qd with caution and close monitoring of renal function and electrolytes 4. Continue Coreg 3.125 bid with uptitration, hemodynamics permitting 5. Consider Entresto therapy as outpatient 6. Continue Xarelto 15 mg daily considering above CKD 7. Continue Lipitor 40 qhs 8. Continue Amiodarone oral load with eventual decrease dosage to 200 mg daily 9. BD, GI prophylaxis, O2 as needed, PT and mobilize
--- NOTE | 2016-06-01 16:08 | PN ---
Physical Exam: SUBJECTIVE: Patient seen and examined. He is out of bed to chair. He is ambulating. OBJECTIVE: Vital Signs Period Temp Pulse Resp BP Sys/Mcconnell Pulse Ox Last 24 Hr 97.8 F-99.1 F 64-75 20-20 83-114/41-68 93-97 PE Neuro: alert, awake, cn 2-12intact Pulm: basilar crackles, diminished +Nc CV: s1 s2 rrr Abd: soft large panus, large palpable external mass lower abd ? hernia Ext: bilateral le wounds draining, +2 pitting edema Laboratory Results - last 24 hr 06/01/16 06/01/16 06/01/16 03:01 05:58 05:58 WBC 8.6 RBC 4.06 Hgb 12.3 Hct 37.3 MCV 91.8 MCHC 33.0 RDW 18.3 H Plt Count 124 L MPV 9.7 Neutrophils % 81.9 Lymphocytes % 7.8 L Monocytes % 9.4 Eosinophils % 0.8 D Basophils % 0.1 Sodium 139 Potassium 4.3 Chloride 96 L Carbon Dioxide 34 H Anion Gap 9 BUN 41 H D Creatinine 1.9 H Creat Clearance w eGFR 36.22 POC Glucometer 100 Random Glucose 131 H D Calcium 8.8 Total Bilirubin 1.0 AST 43 H D ALT 62 D Alkaline Phosphatase 207 H Total Protein 6.4 Albumin 2.9 L Active Medications Generic Name Dose Route Start Last Admin Trade Name Freq PRN Reason Stop Dose Admin Acetaminophen 325 mg 05/27/16 21:07 05/31/16 17:42 Tylenol - PO 325 mg Q6H PRN Administration PAIN Albuterol/Ipratropium 1 amp 05/26/16 22:00 06/01/16 14:50 Duoneb - NEB Not Given Q4HWA [facility] Amiodarone HCl 200 mg 06/03/16 10:00 Cordarone - PO DAILY [facility] Atorvastatin Calcium 40 mg 05/26/16 22:00 05/31/16 23:00 Lipitor - PO 40 mg HS [facility] Administration Carvedilol 3.125 mg 05/26/16 22:00 06/01/16 09:54 Coreg - PO Not Given BID [facility] Cholecalciferol 1,000 unit 05/27/16 10:00 06/01/16 09:52 Vitamin D3 - PO 1,000 unit DAILY [facility] Administration Clotrimazole 1 applic 05/26/16 22:00 06/01/16 10:18 Lotrimin 1% Cream - TP Not Given BID [facility] Collagenase 1 applic 05/29/16 20:00 06/01/16 09:56 Santyl - TP Not Given DAILY [facility] Dexamethasone 4 mg 05/27/16 10:00 06/01/16 09:53 Decadron - PO 4 mg DAILY [facility] Administration Gabapentin 100 mg 05/27/16 10:00 06/01/16 09:51 Neurontin - PO 100 mg DAILY [facility] Administration Insulin Detemir 70 units 05/27/16 07:00 06/01/16 08:59 Levemir Vial SQ 70 units AM [facility] Administration Liraglutide 1.8 mg 05/27/16 07:00 06/01/16 09:02 Victoza - SQ 1.8 mg DAILY@0700 [facility] Administration Lisinopril 5 mg 05/27/16 10:00 06/01/16 09:54 Prinivil PO Not Given DAILY [facility] Humulin R U-500 Pen 30 each 05/29/16 07:00 06/01/16 15:48 - Patient Own Med SQ Not Given TIDAC [facility] Nystatin 1 applic 05/26/16 17:15 06/01/16 10:17 Nystop Powder - TP 1 applic DAILY [facility] Administration Oxycodone HCl 5 mg 05/31/16 09:20 06/01/16 09:22 Roxicodone - PO 5 mg Q6H PRN Administration PAIN Pantoprazole Sodium 40 mg 05/30/16 10:00 06/01/16 09:52 Protonix - PO 40 mg DAILY [facility] Administration Rivaroxaban 15 mg 05/30/16 10:00 06/01/16 09:52 Xarelto - PO 15 mg DAILY [facility] Administration Spironolactone 25 mg 05/27/16 13:30 06/01/16 09:53 Aldactone - PO Not Given BID [facility] Tamsulosin HCl 0.4 mg 05/27/16 08:30 06/01/16 09:53 Flomax - PO Not Given DAILY@0830 [facility] Torsemide 40 mg 06/01/16 22:00 Demadex - PO BID [facility] Imagin12/07/2015 Transthoracic echocardiography revealed severe LV systolic dysfunction with global hypokinesia, mild MR, mild to moderate TR. moderate pulmonary HTN Assessment: 61 year old male with a significant past medical history of HTN, HLD , ischemic dilated cardiomyopathy, systolic heart failure s/p PPM/AICD, CAD s/ p CABG, DVT, CVA, COPD(home oxygen dependent), DM and lung cancer, morbid obesity admitted with SOB and weight gain. Plan: 1. Acute on chronic severe LV systolic CHF w/ ischemic cardiomyopathy - Transition to Demadex 40mg BID - Aldactone 25mg BID - Coreg 3.125mg BID - Daily weights 2. PSVT/ paroxysmal atrial flutter/DVT hx - Amio load completed; transition to 200mg - Xarelto 15mg daily,(renally dosed) 3. COPD with pulmonary nodule - [facility] 4. Hypertension - Hold lisinopril for marcial 5. Ascities - s/p paracentesis 05/29 - SAAG criteria 1.1 indicating PortalHTN - Continue diuresis 6. DM II - Humalin R-U500, 30U TID before meals - Victoza daily 7. MARCIAL on CKD - Hold CLAUDE for acute rise - Trend cr - Cr cl 32 8. Venous stasis ulcers bilateral lower extremities - daily wound care with santyl per vascular 9. CAD s/p CABG/ hx cardiac arrest post ICD - ASA daily - Statin 10. hep b core ab positive - Hep b abg igm and profile pending Visit type - Emergency Visit Emergency Visit: Yes ED Registration Date: 05/26/16 Care time: The patient presented to the Emergency Department on the above date and was hospitalized for further evaluation of their emergent condition. - New Patient This patient is new to me today: No - Critical Care Critical Care patient: No
[2016-06-01] MEDS ORDERED: MINERAL OIL ENEMA 133 ML ENEMA PR PRN (18:53)
[2016-06-01] MEDS ORDERED: SENNOSIDES 8.6MG TABLET (FP) PO SCH (22:00)
[2016-06-01] MEDS: ATORVASTATIN CA 40 MG TABLET (FP) PO SCH (22:36)
[2016-06-01] MEDS: DOCUSATE SODIUM 100 MG CAPSULE (FP) PO SCH (22:37)
[2016-06-01] MEDS: TORSEMIDE 20 MG TABLET (FP) PO SCH (22:37)
[2016-06-01] MEDS: POLYETHYLENE GLYCOL 3350 119 GM BTL PO SCH (22:41)
[2016-06-02 02:21] VITALS: TEMP 97.9
[2016-06-02 05:13] VITALS: BP 103/69; PULSE 69
[2016-06-02] MEDS: INSULIN DETEMIR 100 UNITS/ML MDV SQ SCH (06:28)
[2016-06-02] MEDS: LIRAGLUTIDE 0.6 MG/0.1 ML PEN.INJCTR SQ SCH (06:28)
[2016-06-02] MEDS: ALBUTEROL SO4 2.5/IPRATROPIUM 0.5 INH SOL 3 ML VIAL.NEB. NEB SCH ×3 (06:50→14:01)
[2016-06-02 08:33] LABS: CALCIUM 8.9 mg/dL (8.5-10.1)
[2016-06-02 08:34] LABS: COCKROFT - GAULT 71.92; CREATININE 1.9 mg/dL (0.7-1.3)
[2016-06-02] MEDS: oxyCODONE HCL 5 MG TABLET PO PRN (09:00)
[2016-06-02] MEDS: TAMSULOSIN HCL 0.4 MG CAP.ER.24H (FP) PO SCH (09:24)
[2016-06-02] MEDS: SPIRONOLACTONE 25 MG TABLET (FP) PO SCH (09:25)
[2016-06-02] MEDS: RIVAROXABAN 15 MG TABLET PO SCH (09:25)
[2016-06-02] MEDS: GABAPENTIN 100 MG CAPSULE (FP) PO SCH (09:25)
[2016-06-02] MEDS: CARVEDILOL 3.125 MG TABLET (FP) PO SCH (09:25)
[2016-06-02] MEDS: PANTOPRAZOLE 40 MG TABLET (FP) PO SCH (09:26)
[2016-06-02] MEDS: COLLAGENASE CLOSTRIDIUM HIST. 30 GRAMS TUBE TP SCH (09:26)
[2016-06-02] MEDS: DEXAMETHASONE 4 MG TABLET (FP) PO SCH (09:26)
[2016-06-02] MEDS: CHOLECALCIFEROL (VITAMIN D3) 1,000 UNIT TABLET (FP) PO SCH (09:26)
[2016-06-02] MEDS: DOCUSATE SODIUM 100 MG CAPSULE (FP) PO SCH (09:27)
[2016-06-02] MEDS: CLOTRIMAZOLE 1% CREAM 15 GM TUBE TP SCH (09:27)
[2016-06-02] MEDS: NYSTATIN POWDER 100,000 UNITS/GM - 15 GM TOPICAL POWDER TP SCH (09:27)
[2016-06-02] MEDS: POLYETHYLENE GLYCOL 3350 119 GM BTL PO SCH (09:27)
[2016-06-02] MEDS: TORSEMIDE 20 MG TABLET (FP) PO SCH (09:27)
[2016-06-02] MEDS: HUMULIN R U SQ SCH ×2 (09:32→11:37)
--- NOTE | 2016-06-02 10:37 | PN ---
Progress Note, Physician History of Present Illness: BP improved, ambulating without exertional sxs. PMD: Omar Mckeon MD ([place]) Mortgage Manager: Ajay Gil MD ([place]) - Current Medication List Current Medications: Active Medications Acetaminophen (Tylenol -) 325 mg PO Q6H PRN PRN Reason: PAIN Last Admin: 05/31/16 17:42 Dose: 325 mg Albuterol/Ipratropium (Duoneb -) 1 amp NEB Q4HWA [facility] Last Admin: 06/02/16 06:50 Dose: 1 amp Amiodarone HCl (Cordarone -) 200 mg PO DAILY [facility] Atorvastatin Calcium (Lipitor -) 40 mg PO HS [facility] Last Admin: 06/01/16 22:36 Dose: 40 mg Carvedilol (Coreg -) 3.125 mg PO BID [facility] Last Admin: 06/02/16 09:25 Dose: 3.125 mg Cholecalciferol (Vitamin D3 -) 1,000 unit PO DAILY [facility] Last Admin: 06/02/16 09:26 Dose: 1,000 unit Clotrimazole (Lotrimin 1% Cream -) 1 applic TP BID [facility] Last Admin: 06/02/16 09:27 Dose: 1 applic Collagenase (Santyl -) 1 applic TP DAILY [facility] Last Admin: 06/02/16 09:26 Dose: Not Given Dexamethasone (Decadron -) 4 mg PO DAILY [facility] Last Admin: 06/02/16 09:26 Dose: 4 mg Docusate Sodium (Colace -) 100 mg PO BID [facility] Last Admin: 06/02/16 09:27 Dose: 100 mg Gabapentin (Neurontin -) 100 mg PO DAILY [facility] Last Admin: 06/02/16 09:25 Dose: 100 mg Insulin Detemir (Levemir Vial) 70 units SQ AM [facility] Last Admin: 06/02/16 06:28 Dose: 70 units Liraglutide (Victoza -) 1.8 mg SQ DAILY@0700 [facility] Last Admin: 06/02/16 06:28 Dose: 1.8 mg Mineral Oil (Fleet Mineral Oil Rectal Enema -) 133 ml [place] PRN PRN PRN Reason: CONSTIPATION Humulin R U-500 Pen (- Patient Own Med) 30 each SQ TIDAC [facility] Last Admin: 06/02/16 09:32 Dose: 30 each Nystatin (Nystop Powder -) 1 applic TP DAILY [facility] Last Admin: 06/02/16 09:27 Dose: 1 applic Oxycodone HCl (Roxicodone -) 5 mg PO Q6H PRN PRN Reason: PAIN Last Admin: 06/02/16 09:00 Dose: 5 mg Pantoprazole Sodium (Protonix -) 40 mg PO DAILY [facility] Last Admin: 06/02/16 09:26 Dose: 40 mg Polyethylene Glycol (Miralax (For Daily Use) -) 17 gm PO DAILY [facility] Last Admin: 06/02/16 09:27 Dose: Not Given Rivaroxaban (Xarelto -) 15 mg PO DAILY [facility] Last Admin: 06/02/16 09:25 Dose: 15 mg Senna (Senna -) 2 tab PO HS [facility] Last Admin: 06/01/16 22:38 Dose: 2 tab Spironolactone (Aldactone -) 25 mg PO BID [facility] Last Admin: 06/02/16 09:25 Dose: 25 mg Tamsulosin HCl (Flomax -) 0.4 mg PO DAILY@0830 [facility] Last Admin: 06/02/16 09:24 Dose: 0.4 mg Torsemide (Demadex -) 40 mg PO BID [facility] Last Admin: 06/02/16 09:27 Dose: 40 mg - Objective Vital Signs: Vital Signs Temperature 97.9 F 06/02/16 02:19 Pulse Rate 69 06/02/16 05:12 Respiratory Rate 20 06/02/16 05:12 Blood Pressure 103/69 06/02/16 05:12 O2 Sat by Pulse Oximetry (%) 95 06/01/16 20:31 Constitutional: Yes: No Distress, Calm Neck: Yes: Supple Cardiovascular: Yes: Pulse Irregular Respiratory: Yes: Regular, Diminished Gastrointestinal: Yes: Normal Bowel Sounds, Soft, Abdomen, Obese Edema: Yes Edema: LLE: 1+, RLE: 1+ Labs: CBC, BMP 06/01/16 05:58 06/02/16 05:35 INR, PTT INR 1.86 (0.82-1.09) H 05/27/16 06:05 Problem List - Problems (1) ASHD (arteriosclerotic heart disease) Code(s): I25.10 - ATHSCL HEART DISEASE OF [place] CORONARY ARTERY W/O ANG PCTRS (2) Acute on chronic systolic and diastolic heart failure, NYHA class 4 Code(s): I50.43 - ACUTE ON CHRONIC COMBINED SYSTOLIC AND DIASTOLIC HRT FAIL (3) CKD (chronic kidney disease) Code(s): N18.9 - CHRONIC KIDNEY DISEASE, UNSPECIFIED Qualifiers: Chronic kidney disease stage: stage 3 (moderate) Qualified Code(s): N18.3 - Chronic kidney disease, stage 3 (moderate) (4) COPD (chronic obstructive pulmonary disease) Code(s): J44.9 - CHRONIC OBSTRUCTIVE PULMONARY DISEASE, UNSPECIFIED Qualifiers : COPD type: chronic bronchitis (5) Diabetes mellitus Code(s): E11.9 - TYPE 2 DIABETES MELLITUS WITHOUT COMPLICATIONS Qualifiers: Diabetes mellitus type: type 2 Diabetes mellitus complication status: with kidney complications Diabetes mellitus complication detail: with chronic kidney disease Diabetes mellitus custodial insulin use: with long term care phlebotomist use Chronic kidney disease stage: stage 4 (severe) Qualified Code(s): E11.22 - Type 2 diabetes mellitus with diabetic chronic kidney disease ; N18.1 - Chronic kidney disease, stage 1; Z79.4 - [facility] (current) use of insulin (6) Heart failure, systolic, with acute decompensation Code(s): I50.23 - ACUTE ON CHRONIC SYSTOLIC (CONGESTIVE) HEART FAILURE (7) Hx of CABG Code(s): Z95.1 - PRESENCE OF AORTOCORONARY BYPASS GRAFT (8) Ischemic cardiomyopathy Code(s): I25.5 - ISCHEMIC CARDIOMYOPATHY (9) S/P CABG (coronary artery bypass graft) Code(s): Z95.1 - PRESENCE OF AORTOCORONARY BYPASS GRAFT (10) Single implantable cardioverter-defibrillator (ICD) in situ Code(s): Z95.810 - PRESENCE OF AUTOMATIC (IMPLANTABLE) CARDIAC DEFIBRILLATOR (11) Type 2 diabetes mellitus with mild nonproliferative diabetic retinopathy without macular edema Code(s): E11.329 - TYPE 2 DIAB W MILD NONPRLF DIABETIC RTNOP W/O * DO NOT USE * Qualifiers: Diabetes mellitus long term care phlebotomist insulin use: with long term care phlebotomist use Assessment/Plan 12/07/2015 Transthoracic echocardiography revealed severe LV systolic dysfunction with global hypokinesia, mild MR, mild to moderate TR. moderate pulmonary HTN 1. Acute on chronic severe LV systolic failure with ischemic cardiomyopathy with ascites post paracentesis, resolving clinically 2. CAD S/P CABG, angina pectoris 3. History of cardiac arrest post ICD 4. PSVT cannot exclude paroxysmal atrial flutter [id number] score of 5, recurrent arrhythmia 5. Home O2 dependent COPD, NIRANJAN ca post XRT 6. Type 2 diabetes mellitus 7. CVA 8. CKD 9. Morbid obesity 10. RLE DVT PLAN: 1. Continue oral diuresis with Demadex 40 bid and Aldactone 25 bid with caution and close monitoring of renal function and electrolytes 3. Resume Lisinopril 5 qd as renal fxn is at baseline 4. Continue Coreg 3.125 bid with uptitration, hemodynamics permitting 5. Consider Entresto therapy as outpatient 6. Continue Xarelto 15 mg daily considering above CKD 7. Continue Lipitor 40 qhs 8. Continue Amiodarone 200 mg daily 9. BD, GI prophylaxis, O2 as needed, PT and mobilize
--- NOTE | 2016-06-02 11:40 | PN ---
Progress Note, Physician History of Present Illness: pulmonary alert,oob-chair,-sob,-cough,-cp - Current Medication List Current Medications: Active Medications Acetaminophen (Tylenol -) 325 mg PO Q6H PRN PRN Reason: PAIN Last Admin: 05/31/16 17:42 Dose: 325 mg Albuterol/Ipratropium (Duoneb -) 1 amp NEB Q4HWA [facility] Last Admin: 06/02/16 06:50 Dose: 1 amp Atorvastatin Calcium (Lipitor -) 40 mg PO HS [facility] Last Admin: 06/01/16 22:36 Dose: 40 mg Carvedilol (Coreg -) 3.125 mg PO BID [facility] Last Admin: 06/02/16 09:25 Dose: 3.125 mg Cholecalciferol (Vitamin D3 -) 1,000 unit PO DAILY [facility] Last Admin: 06/02/16 09:26 Dose: 1,000 unit Clotrimazole (Lotrimin 1% Cream -) 1 applic TP BID [facility] Last Admin: 06/02/16 09:27 Dose: 1 applic Collagenase (Santyl -) 1 applic TP DAILY [facility] Last Admin: 06/02/16 09:26 Dose: Not Given Dexamethasone (Decadron -) 4 mg PO DAILY [facility] Last Admin: 06/02/16 09:26 Dose: 4 mg Docusate Sodium (Colace -) 100 mg PO BID [facility] Last Admin: 06/02/16 09:27 Dose: 100 mg Gabapentin (Neurontin -) 100 mg PO DAILY [facility] Last Admin: 06/02/16 09:25 Dose: 100 mg Insulin Detemir (Levemir Vial) 70 units SQ AM [facility] Last Admin: 06/02/16 06:28 Dose: 70 units Liraglutide (Victoza -) 1.8 mg SQ DAILY@0700 [facility] Last Admin: 06/02/16 06:28 Dose: 1.8 mg Lisinopril (Prinivil) 5 mg PO DAILY [facility] Mineral Oil (Fleet Mineral Oil Rectal Enema -) 133 ml [place] PRN PRN PRN Reason: CONSTIPATION Humulin R U-500 Pen (- Patient Own Med) 30 each SQ TIDAC [facility] Last Admin: 06/02/16 11:37 Dose: 30 each Nystatin (Nystop Powder -) 1 applic TP DAILY [facility] Last Admin: 06/02/16 09:27 Dose: 1 applic Oxycodone HCl (Roxicodone -) 5 mg PO Q6H PRN PRN Reason: PAIN Last Admin: 06/02/16 09:00 Dose: 5 mg Pantoprazole Sodium (Protonix -) 40 mg PO DAILY [facility] Last Admin: 06/02/16 09:26 Dose: 40 mg Polyethylene Glycol (Miralax (For Daily Use) -) 17 gm PO DAILY [facility] Last Admin: 06/02/16 09:27 Dose: Not Given Rivaroxaban (Xarelto -) 15 mg PO DAILY [facility] Last Admin: 06/02/16 09:25 Dose: 15 mg Senna (Senna -) 2 tab PO HS [facility] Last Admin: 06/01/16 22:38 Dose: 2 tab Spironolactone (Aldactone -) 25 mg PO BID [facility] Last Admin: 06/02/16 09:25 Dose: 25 mg Tamsulosin HCl (Flomax -) 0.4 mg PO DAILY@0830 [facility] Last Admin: 06/02/16 09:24 Dose: 0.4 mg Torsemide (Demadex -) 40 mg PO BID [facility] Last Admin: 06/02/16 09:27 Dose: 40 mg - Objective Vital Signs: Vital Signs Temperature 97.9 F 06/02/16 02:19 Pulse Rate 69 06/02/16 05:12 Respiratory Rate 20 06/02/16 05:12 Blood Pressure 103/69 06/02/16 05:12 O2 Sat by Pulse Oximetry (%) 95 06/01/16 20:31 Constitutional: Yes: Well Nourished, Calm Eyes: Yes: WNL HENT: Yes: WNL Neck: Yes: WNL Cardiovascular: Yes: Regular Rate and Rhythm, S1, S2 Respiratory: Yes: Diminished Gastrointestinal: Yes: Normal Bowel Sounds, Soft Extremities: Yes: WNL Edema: Yes Labs: CBC, BMP 06/01/16 05:58 06/02/16 05:35 INR, PTT INR 1.86 (0.82-1.09) H 05/27/16 06:05 Problem List - Problems (1) Ascites Code(s): R18.8 - OTHER ASCITES Qualifiers: Ascites type: other type Qualified Code(s): R18.8 - Other ascites (2) CHF (congestive heart failure) Code(s): I50.9 - HEART FAILURE, UNSPECIFIED Qualifiers: Congestive heart failure type: systolic Congestive heart failure chronicity: acute on chronic Qualified Code(s): I50.23 - Acute on chronic systolic (congestive) heart failure (3) CHF exacerbation Code(s): I50.9 - HEART FAILURE, UNSPECIFIED Qualifiers: Congestive heart failure type: unspecified congestive heart failure type Qualified Code(s): I50.9 - Heart failure, unspecified (4) CKD (chronic kidney disease) Code(s): N18.9 - CHRONIC KIDNEY DISEASE, UNSPECIFIED Qualifiers: Chronic kidney disease stage: stage 3 (moderate) Qualified Code(s): N18.3 - Chronic kidney disease, stage 3 (moderate) (5) Dyspnea on exertion Code(s): R06.09 - OTHER FORMS OF DYSPNEA (6) ASHD (arteriosclerotic heart disease) Code(s): I25.10 - ATHSCL HEART DISEASE OF [place] CORONARY ARTERY W/O ANG PCTRS (7) Acute on chronic systolic and diastolic heart failure, NYHA class 4 Code(s): I50.43 - ACUTE ON CHRONIC COMBINED SYSTOLIC AND DIASTOLIC HRT FAIL (8) COPD (chronic obstructive pulmonary disease) Code(s): J44.9 - CHRONIC OBSTRUCTIVE PULMONARY DISEASE, UNSPECIFIED Qualifiers : COPD type: chronic bronchitis (9) COPD exacerbation Code(s): J44.1 - CHRONIC OBSTRUCTIVE PULMONARY DISEASE W (ACUTE) EXACERBATION (10) Deep venous thrombosis Code(s): I82.409 - ACUTE EMBOLISM AND THOMBOS UNSP DEEP VN UNSP LOWER EXTREMITY Qualifiers: DVT location: lower extremity Affected thrombotic vein of extremity: unspecified vein of extremity Laterality: right Chronicity: acute Qualified Code(s): I82.401 - Acute embolism and thrombosis of unspecified deep veins of right lower extremity (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, managed as type 1 Code(s): E13.9 - OTHER SPECIFIED DIABETES MELLITUS WITHOUT COMPLICATIONS (12) Heart failure, systolic, with acute decompensation Code(s): I50.23 - ACUTE ON CHRONIC SYSTOLIC (CONGESTIVE) HEART FAILURE (13) Hepatitis B Code(s): B19.10 - UNSPECIFIED VIRAL HEPATITIS B WITHOUT HEPATIC COMA (14) Hx of CABG Code(s): Z95.1 - PRESENCE OF AORTOCORONARY BYPASS GRAFT (15) Hyperglycemia Code(s): R73.9 - HYPERGLYCEMIA, UNSPECIFIED (16) Ischemic cardiomyopathy Code(s): I25.5 - ISCHEMIC CARDIOMYOPATHY (17) LV dysfunction Code(s): I51.9 - HEART DISEASE, UNSPECIFIED (18) Lung nodule Code(s): R91.1 - SOLITARY PULMONARY NODULE (19) Morbid obesity Code(s): E66.01 - MORBID (SEVERE) OBESITY DUE TO EXCESS CALORIES Qualifiers: Obesity type: due to excess calories Qualified Code(s): E66.01 - Morbid (severe) obesity due to excess calories (20) S/P CABG (coronary artery bypass graft) Code(s): Z95.1 - PRESENCE OF AORTOCORONARY BYPASS GRAFT (21) Severe left ventricular systolic dysfunction Code(s): I51.9 - HEART DISEASE, UNSPECIFIED (22) Single implantable cardioverter-defibrillator (ICD) in situ Code(s): Z95.810 - PRESENCE OF AUTOMATIC (IMPLANTABLE) CARDIAC DEFIBRILLATOR (23) Tobacco abuse Code(s): Z72.0 - TOBACCO USE (24) Acute and chronic respiratory failure with hypoxia Code(s): J96.21 - ACUTE AND CHRONIC RESPIRATORY FAILURE WITH HYPOXIA Assessment/Plan IMP ACUTE ON CHRONIC HYPOXEMIC RESPIRATORY FAILURE improved ADVANCED COPD ON O2 stable DECOMPENSATED CHF improving ASCITES ISCHEMIC CARDIOMYOPATHY ASHD S/O CABG,S/P AICD H/O CARDIAC ARREST NIRANJAN MASS LIKELY CA S/P RT DM MORBID OBESITY CKD GOUT H/O DVT PLAN DIURETICS O2 INHALED BRONCHODILATORS DAILY WTS MONITOR SONA BARBOSA Problem List - Problems (1) Ascites Code(s): R18.8 - OTHER ASCITES Qualifiers: Ascites type: other type Qualified Code(s): R18.8 - Other ascites (2) CHF (congestive heart failure) Code(s): I50.9 - HEART FAILURE, UNSPECIFIED Qualifiers: Congestive heart failure type: systolic Congestive heart failure chronicity: acute on chronic Qualified Code(s): I50.23 - Acute on chronic systolic (congestive) heart failure (3) CHF exacerbation Code(s): I50.9 - HEART FAILURE, UNSPECIFIED Qualifiers: Congestive heart failure type: unspecified congestive heart failure type Qualified Code(s): I50.9 - Heart failure, unspecified (4) CKD (chronic kidney disease) Code(s): N18.9 - CHRONIC KIDNEY DISEASE, UNSPECIFIED Qualifiers: Chronic kidney disease stage: stage 3 (moderate) Qualified Code(s): N18.3 - Chronic kidney disease, stage 3 (moderate) (5) Dyspnea on exertion Code(s): R06.09 - OTHER FORMS OF DYSPNEA (6) ASHD (arteriosclerotic heart disease) Code(s): I25.10 - ATHSCL HEART DISEASE OF [place] CORONARY ARTERY W/O ANG PCTRS (7) Acute on chronic systolic and diastolic heart failure, NYHA class 4 Code(s): I50.43 - ACUTE ON CHRONIC COMBINED SYSTOLIC AND DIASTOLIC HRT FAIL (8) COPD (chronic obstructive pulmonary disease) Code(s): J44.9 - CHRONIC OBSTRUCTIVE PULMONARY DISEASE, UNSPECIFIED Qualifiers : COPD type: chronic bronchitis (9) COPD exacerbation Code(s): J44.1 - CHRONIC OBSTRUCTIVE PULMONARY DISEASE W (ACUTE) EXACERBATION (10) Deep venous thrombosis Code(s): I82.409 - ACUTE EMBOLISM AND THOMBOS UNSP DEEP VN UNSP LOWER EXTREMITY Qualifiers: DVT location: lower extremity Affected thrombotic vein of extremity: unspecified vein of extremity Laterality: right Chronicity: acute Qualified Code(s): I82.401 - Acute embolism and thrombosis of unspecified deep veins of right lower extremity (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, managed as type 1 Code(s): E13.9 - OTHER SPECIFIED DIABETES MELLITUS WITHOUT COMPLICATIONS (12) Heart failure, systolic, with acute decompensation Code(s): I50.23 - ACUTE ON CHRONIC SYSTOLIC (CONGESTIVE) HEART FAILURE (13) Hepatitis B Code(s): B19.10 - UNSPECIFIED VIRAL HEPATITIS B WITHOUT HEPATIC COMA (14) Hx of CABG Code(s): Z95.1 - PRESENCE OF AORTOCORONARY BYPASS GRAFT (15) Hyperglycemia Code(s): R73.9 - HYPERGLYCEMIA, UNSPECIFIED (16) Ischemic cardiomyopathy Code(s): I25.5 - ISCHEMIC CARDIOMYOPATHY (17) LV dysfunction Code(s): I51.9 - HEART DISEASE, UNSPECIFIED (18) Lung nodule Code(s): R91.1 - SOLITARY PULMONARY NODULE (19) Morbid obesity Code(s): E66.01 - MORBID (SEVERE) OBESITY DUE TO EXCESS CALORIES Qualifiers: Obesity type: due to excess calories Qualified Code(s): E66.01 - Morbid (severe) obesity due to excess calories (20) S/P CABG (coronary artery bypass graft) Code(s): Z95.1 - PRESENCE OF AORTOCORONARY BYPASS GRAFT (21) Severe left ventricular systolic dysfunction Code(s): I51.9 - HEART DISEASE, UNSPECIFIED (22) Single implantable cardioverter-defibrillator (ICD) in situ Code(s): Z95.810 - PRESENCE OF AUTOMATIC (IMPLANTABLE) CARDIAC DEFIBRILLATOR (23) Tobacco abuse Code(s): Z72.0 - TOBACCO USE (24) Acute and chronic respiratory failure with hypoxia Code(s): J96.21 - ACUTE AND CHRONIC RESPIRATORY FAILURE WITH HYPOXIA
[2016-06-02] MEDS ORDERED: LISINOPRIL 5 MG TABLET (FP) PO SCH (12:00)
[2016-06-02 12:23] LABS: URINE APPEARANCE CLEAR; URINE BILIRUBIN NEGATIVE (NEGATIVE); URINE BLOOD 2+ (NEGATIVE); URINE COLOR LTYELLOW; URINE GLUCOSE (UA) NEGATIVE (NEGATIVE); URINE KETONE NEGATIVE (NEGATIVE); URINE LEUK ESTERASE NEGATIVE (NEGATIVE); URINE NITRITE NEGATIVE (NEGATIVE); URINE PROTEIN NEGATIVE (NEGATIVE); URINE UROBILINOGEN NEGATIVE E.U./dl (0.2-1.0)
[2016-06-02 12:26] LABS: URINE HYALINE CAST 5 /lpf; URINE MUCUS RARE; URINE RBC 11 /hpf (0-3); URINE WBC 3 /hpf (3-5)
--- NOTE | 2016-06-02 13:00 | DS ---
Physical Exam: SUBJECTIVE: Patient seen and examined. He feels well, he is ambulating without dyspnea. OBJECTIVE: Vital Signs Period Temp Pulse Resp BP Sys/Mcconnell Pulse Ox Last 24 Hr 97.6 F-97.9 F 67-73 18-20 103-119/58-71 95 PE Neuro: alert, awake, cn 2-12intact Pulm: basilar crackles CV: s1 s2 rrr Abd: soft large panus, large palpable external mass lower abd ? hernia Ext: bilateral le wounds draining, +1 edema Laboratory Results - last 24 hr 06/01/16 06/01/16 06/02/16 05:58 15:40 05:35 Sodium 138 Potassium 4.6 Chloride 95 L Carbon Dioxide 32 Anion Gap 11 BUN 48 H Creatinine 1.9 H POC Glucometer 187 Random Glucose 144 H Calcium 8.9 Urine Color Urine Appearance Urine pH Ur Specific [place] Urine Protein Urine Glucose (UA) Urine Ketones Urine Blood Urine Nitrite Urine Bilirubin Urine Urobilinogen Ur Leukocyte Esterase Urine RBC Urine WBC Ur Epithelial Cells Hyaline Casts Urine Mucus Hep B Core IgM Ab Negative HOSPITAL COURSE: Date of Admission:05/26/16 Date of Discharge: 06/02/16 Minutes to complete discharge: 35 Discharge Summary Reason For Visit: CONGESTIVE HEART FAILURE Current Active Problems Acute and chronic respiratory failure with hypoxia (Acute) Ascites (Acute) CHF (congestive heart failure) (Acute) CHF exacerbation (Acute) CKD (chronic kidney disease) (Acute) Dyspnea on exertion (Acute) Hospital Course: Initial Hospital Course: Briefly, this 61 year old male with underlying history of ischemic cardiomyopathy and heart failure (NYHA class III-IV), history of CAD post [place], 4 vessel CABG, cardiac arrest post ICD, diabetes mellitus, home O2 dependent COPD , CVA, hepatitis B, gout, chronic renal insufficiency, right LE DVT. Presented to the ED with shortness of breath and distended abdomen. Pt presented with increase in shortness of breath, orthopnea, anasarca without chest pain, PND, near or true syncope, palpitations, and was started on inotropic diuresis. He reports medication compliance with diet indiscretion with salt intake, no NSAID use. PMD: Omar Mckeon MD ([place]) Slag Expander: Ajay Gil MD ([place]) Subsequent Hospital Course/Progress Note/Discharge Summary by a/p: Assessment: 61 year old male with a significant past medical history of HTN, HLD , ischemic dilated cardiomyopathy, systolic heart failure s/p PPM/AICD, CAD s/ p CABG, DVT, CVA, COPD(home oxygen dependent), DM and lung cancer, morbid obesity admitted with SOB and weight gain. Plan: 1. Acute on chronic severe LV systolic CHF w/ ischemic cardiomyopathy - Transition to Demadex 40mg BID - Aldactone 25mg BID - Coreg 3.125mg BID - Daily weights 2. PSVT/ paroxysmal atrial flutter/DVT hx - Amio load completed; transition to 200mg - Xarelto 15mg daily,(renally dosed) 3. COPD with pulmonary nodule - [facility] 4. Hypertension - Hold lisinopril for marcial 5. Ascities - s/p paracentesis 05/29 - SAAG criteria 1.1 indicating PortalHTN - No fevers, or peritoneal signs noted - Cx pending 6. DM II - Humalin R-U500, 30U TID before meals - Victoza daily 7. MARCIAL on CKD - Hold CLAUDE for acute rise - Trend cr - Cr cl 32 8. Venous stasis ulcers bilateral lower extremities - daily wound care with santyl per vascular 9. CAD s/p CABG/ hx cardiac arrest post ICD - ASA daily - Statin 10. hep b core ab positive - Hep b abg igm and profile pending Dispo: - Home with [facility] and pcp, cardiology and renal follow up - Continue med as listed above - Wound care appt for monday 06/05 at 10:30am - pt aware and agrees to above plan Condition: Stable - Instructions Diet, Activity, Other Instructions: Please return to the ED for any new, persistent, or worsening symptoms. Follow up with your PCP in 1 week [facility] is set up Resume home medication as directed on discharge list Changes: Stop Aspirin Decreased dose of xaralto 15mg daily Started on Aldactone 25mg BID Follow up with Slag Expander in 1-2 weeks for continued management Follow up with wound Care Dr. Quispe on Monday 06/05 at 10:30 am Follow up with Dr. Stanley in 1 week for follow up of kidney function Referrals: Leonard Quispe MD [Staff Physician] - (Monday 06/05 10:30am ) Jammie Mendez MD [Staff Physician] - 1 Week Walt Hoffman MD [Staff Physician] - 2 Weeks Disposition: [facility]/HOME HEALTH CARE - Home Medications Comprehensive Discharge Medication List: Ambulatory Orders Albuterol 2.5/Ipratropium 0.5 [Duoneb -] 1 neb NEB Q4H 05/09/15 Allopurinol [Zyloprim -] 100 mg PO DAILY 05/09/15 Carvedilol [Coreg] 6.25 mg PO BID 05/09/15 Colchicine 0.6 mg PO DAILY 05/09/15 Fluoxetine HCl [Prozac] 40 mg PO HS 05/09/15 Insulin Glargine,Hum.rec.anlog [Lantus (10mL VIAL) -] 70 units SQ AM 05/09/15 Liraglutide [Victoza -] 1.8 mg SQ DAILY@0700 05/09/15 Lisinopril [Zestril] 5 mg PO DAILY 05/09/15 Tamsulosin HCl [Flomax -] 0.4 mg PO DAILY 05/09/15 Trazodone HCl [Desyrel -] 50 mg PO BID 05/09/15 Sennosides/Docusate Sodium [Pericolace -] 1 tablet PO BID tablet 05/14/15 Atorvastatin Calcium 40 mg PO HS 05/09/16 Cholecalciferol (Vitamin D3) [Vitamin D -] 1,000 unit PO DAILY 05/09/16 Dexamethasone 4 mg PO TID 05/09/16 Famotidine/Ca Carb/Mag Hydrox [Pepcid Complete Tablet Chew] 1 each PO DAILY Ferrous Sulfate 325 mg PO DAILY 05/09/16 Gabapentin 100 mg PO DAILY 05/09/16 Insulin Regular, Human [Humulin R U-500 Kwikpen] 15 unit SQ TID 05/09/16 Collagenase Clostridium Hist. [Santyl -] 1 applic TP DAILY #1 tube 06/02/16 Rivaroxaban [Xarelto -] 15 mg PO DAILY #30 tablet 06/02/16 Spironolactone [Aldactone -] 25 mg PO BID #60 tablet 06/02/16 This patient is new to me today: No Emergency Visit: Yes ED Registration Date: 05/26/16 Care time: The patient presented to the Emergency Department on the above date and was hospitalized for further evaluation of their emergent condition. Critical Care patient: No - Discharge Referral Referred to [facility] Med [facility] No
[2016-06-03 00:07] LABS: HBeAG Negative (Negative); HEP B SURFACE AB Reactive (.); HEP BE AB Positive (Negative)
[2016-06-03] MEDS ORDERED: AMIODARONE HCL 200 MG TABLET (FP) PO SCH (10:00)
== END 2016-06-02 15:50 | disposition home health service (06) | DRG 194 ==
LOC: JER 14:19 → JERBED 18:24 → J4W 21:05
PROVIDERS: ADMIT Internal Medicine; ATTEND Nurse Practitioner Acute Care
PROC: 0W9G30Z Drainage of Peritoneal Cavity with Drainage Device, Percutaneous Approach (ICD-10-PCS; principal; 2016-05-29)
DX: I13.0 Hypertensive heart and chronic kidney disease with heart failure and stage 1 through stage 4 chronic kidney disease, or unspecified chronic kidney disease (principal); I50.23 Acute on chronic systolic (congestive) heart failure; I42.9 Cardiomyopathy, unspecified; I47.1 Supraventricular tachycardia; J44.9 Chronic obstructive pulmonary disease, unspecified; R18.8 Other ascites; E11.9 Type 2 diabetes mellitus without complications; N17.9 Acute kidney failure, unspecified; I87.8 Other specified disorders of veins; Z95.1 Presence of aortocoronary bypass graft; N18.9 Chronic kidney disease, unspecified; J96.21 Acute and chronic respiratory failure with hypoxia; M10.9 Gout, unspecified; Z68.39 Body mass index [BMI] 39.0-39.9, adult; E66.01 Morbid (severe) obesity due to excess calories; Z86.73 Personal history of transient ischemic attack (TIA), and cerebral infarction without residual deficits; E78.5 Hyperlipidemia, unspecified; F17.210 Nicotine dependence, cigarettes, uncomplicated; I25.119 Atherosclerotic heart disease of native coronary artery with unspecified angina pectoris
CPT/HCPCS: 36415; 71010-TC; 76700-TC; 76705-TC; 76942-TC; 80048; 80053; 80076; 81003; 81015; 82042; 82150; 82550; 82728; 82945; 83540; 83550; 83615; 83735; 83880; 84100; 84157; 84484; 85025; 85610; 86704; 86705; 86706; 86707; 86708; 87070; 87075; 87102; 87116; 87186; 87205; 87206; 87210; 87340; 87350; 88108; 88305-TC; 89051; 93005; 93010; 94640; 97116-GP; 97162-PG; 99284-25; J1250

== ENCOUNTER 2016-06-02 17:42 | Inpatient (IN) | payer OTHER ==
--- NOTE | 2016-06-02 18:01 | HP ---
Admitting History and Physical - Admission Chief Complaint: + peritoneal fluid History of Present Illness: This ia a 61 year old male with underlying history of ischemic cardiomyopathy and heart failure (NYHA class III-IV), history of CAD post NM, 4 vessel CABG, cardiac arrest post ICD, diabetes mellitus, home O2 dependent COPD, CVA, hepatitis B, gout, chronic renal insufficiency, right LE DVT. Initially, admitted for shortness of breath and distended abdomen with CHF exacerbation. He was treated with inotropic support and IV diuresis. He was found to have ascities and underwent paracentesis. Fluid resulted today from and he was brought back to the ED for further testing and evaluation and possible treatment as pt has ICD. He denies abdominal pain, no fevers reports, tolerating meals and no elevated white count. 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 ef 15%), HTN, Other (Ischemic cardiomyopathy) Pulmonary: Yes: Cancer (undocumented cell type), COPD Renal/: Yes: Renal Inusuff Heme/Onc: Yes: Other (DVT or RLE) Infectious Disease: Yes: Other (Chronic lower extremity bilateral cellulitis ) Endocrine: Yes: Diabetes Mellitus - Past Surgical History Past Surgical History: Yes: AICD, CABG - Smoking History Smoking history: Current every day smoker Have you smoked in the past 12 months: Yes Aproximately how many cigarettes per day: 3 If you are a former smoker, when did you quit?: 2008 - Alcohol/Substance Use Hx Alcohol Use: No History of Substance Use: reports: None - Social History ADL: Independent 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 History of Recent Travel: No Home Medications - Allergies Allergies/Adverse Reactions: Allergies Allergy/AdvReac Type Severity Reaction Status Date / Time Iodinated Contrast Media - Allergy Verified 05/26/16 14:58 Oral and [Iodinated Contrast Media - IV Dye] raw fruits/vegetables Allergy Intermediate Rash Uncoded 05/26/16 14:58 iv contrast dye Allergy Uncoded 05/26/16 14:58 - Home Medications Home Medications: Ambulatory Orders Albuterol 2.5/Ipratropium 0.5 [Duoneb -] 1 neb NEB Q4H 05/09/15 Allopurinol [Zyloprim -] 100 mg PO DAILY 05/09/15 Carvedilol [Coreg] 6.25 mg PO BID 05/09/15 Colchicine 0.6 mg PO DAILY 05/09/15 Fluoxetine HCl [Prozac] 40 mg PO HS 05/09/15 Insulin Glargine,Hum.rec.anlog [Lantus (10mL VIAL) -] 70 units SQ AM 05/09/15 Liraglutide [Victoza -] 1.8 mg SQ DAILY@0700 05/09/15 Lisinopril [Zestril] 5 mg PO DAILY 05/09/15 Tamsulosin HCl [Flomax -] 0.4 mg PO DAILY 05/09/15 Trazodone HCl [Desyrel -] 50 mg PO BID 05/09/15 Sennosides/Docusate Sodium [Pericolace -] 1 tablet PO BID tablet 05/14/15 Atorvastatin Calcium 40 mg PO HS 05/09/16 Cholecalciferol (Vitamin D3) [Vitamin D -] 1,000 unit PO DAILY 05/09/16 Dexamethasone 4 mg PO TID 05/09/16 Famotidine/Ca Carb/Mag Hydrox [Pepcid Complete Tablet Chew] 1 each PO DAILY Ferrous Sulfate 325 mg PO DAILY 05/09/16 Gabapentin 100 mg PO DAILY 05/09/16 Insulin Regular, Human [Humulin R U-500 Kwikpen] 15 unit SQ TID 05/09/16 Collagenase Clostridium Hist. [Santyl -] 1 applic TP DAILY #1 tube 06/02/16 Rivaroxaban [Xarelto -] 15 mg PO DAILY #30 tablet 06/02/16 Spironolactone [Aldactone -] 25 mg PO BID #60 tablet 06/02/16 Torsemide [Demadex] 40 mg PO BID #120 tablet 06/02/16 Family Disease History - Family Disease History Family Disease History: Other: Father, Mother, Brother, Sister Review of Systems - Review of Systems Constitutional: reports: No Symptoms Eyes: reports: No Symptoms HENT: reports: No Symptoms Neck: reports: No Symptoms Cardiovascular: reports: No Symptoms Respiratory: reports: No Symptoms Gastrointestinal: reports: No Symptoms Genitourinary: reports: No Symptoms Musculoskeletal: reports: No Symptoms Integumentary: reports: No Symptoms Neurological: reports: No Symptoms Endocrine: reports: No Symptoms Hematology/Lymphatic: reports: No Symptoms Psychiatric: reports: No Symptoms Physical Examination Findings/Remarks: PE Neuro: alert, awake, cn 2-12intact Pulm: basilar crackles CV: s1 s2 rrr Abd: soft large panus, large palpable external mass lower abd ? hernia Ext: bilateral le wounds draining, +1 edema Assessment/Plan Microbiology 05/29/16 12:30 Peritoneal Fluid Gram Stain - Final 05/29/16 12:30 Peritoneal Fluid Anaerobic Culture - Final NO ANAEROBES WERE ISOLATED 05/29/16 12:30 Peritoneal Fluid Body Fluid Culture - Preliminary Streptococcus Mitis Pediococcus Pentosaceus Assessment: 61 year old male with a significant past medical history of HTN, HLD , DM II ischemic dilated cardiomyopathy, systolic heart failure s/p PPM/AICD, CAD s/p CABG, DVT, CVA, COPD (home oxygen dependent), and lung cancer, morbid obesity, s/p paracentesis 05/29 admitted with evaluation of positive peritoneal fluid. Plan: 1. + Peritoneal Fluid culture from paracentesis 05/29 - Send blood cultures, ESR, CRP now - Will hold on abx as pt non infectious appearing - Final cultures to result - GI and ID consulted 2. Acute on chronic severe LV systolic CHF w/ ischemic cardiomyopathy - Demadex 40mg BID - Aldactone 25mg BID - Coreg 3.125mg BID - Daily weights 3. PSVT/ paroxysmal atrial flutter/DVT hx - Xarelto 15mg daily,(renally dosed) 4. COPD with pulmonary nodule - Decadron 4mg daily - [facility] 5. Hypertension - Lisinopril 5mg daily 6. DM II - Humalin R-U500, 30U TID before meals - Hold for Victoza MARCIAL 7. MARCIAL on CKD - Appears at baseline if not better, however will monitor d/t slight increase from admission 8. Venous stasis ulcers bilateral lower extremities - Daily wound care with santyl per vascular 9. CAD s/p CABG/ hx cardiac arrest post ICD - ASA daily - Statin HS Visit type - Emergency Visit Emergency Visit: No - New Patient This patient is new to me today: No - Critical Care Critical Care patient: No
[2016-06-02] MEDS: DOCUSATE SODIUM 100 MG CAPSULE (FP) PO SCH (22:07)
[2016-06-02] MEDS: CARVEDILOL 6.25 MG TABLET (FP) PO SCH (22:07)
[2016-06-02] MEDS: TORSEMIDE 20 MG TABLET (FP) PO SCH (22:08)
[2016-06-02] MEDS: SENNOSIDES 8.6MG TABLET (FP) PO SCH (22:08)
[2016-06-02] MEDS: FLUoxetine HCL 20 MG CAPSULE (FP) PO SCH (22:08)
[2016-06-02] MEDS: SPIRONOLACTONE 25 MG TABLET (FP) PO SCH (22:08)
[2016-06-02] MEDS: ATORVASTATIN CA 40 MG TABLET (FP) PO SCH (22:08)
[2016-06-02] MEDS: INSULIN SLIDING SCALE (NOVOLOG) 1 VIAL SQ SCH (22:10)
[2016-06-02] MEDS ORDERED: OXYCODONE/APAP 5/325MG COMBO TABLET PO SCH (22:30)
[2016-06-02] MEDS: ACETAMINOPHEN 325 MG TABLET (FP) PO PRN (22:57)
[2016-06-02] MEDS: oxyCODONE HCL 5 MG TABLET PO PRN (22:57)
[2016-06-03] MEDS: ALBUTEROL SO4 2.5/IPRATROPIUM 0.5 INH SOL 3 ML VIAL.NEB. NEB SCH ×7 (00:18→23:20)
[2016-06-03 01:56] VITALS: BMI 39.1
--- NOTE | 2016-06-03 04:53 | HOSP ---
Subjective - Review of Symptoms Events since last encounter: called to see pt for report of constipation. Subjective: Pt and report that pt last BM was 4 days ago. Pt was on toilet, straining, unable to pass BM. reports that she was able to pull out a large hard mass of stool. Describes it about the size of a baseball. Pt reports feeling better after same but still feels like there is more there. Requesting kaopectate. Physical Examination Vital Signs: Vital Signs Temperature 98.3 F 06/03/16 03:00 Pulse Rate 70 06/03/16 03:00 Respiratory Rate 22 06/03/16 03:00 Blood Pressure 107/59 06/03/16 03:00 O2 Sat by Pulse Oximetry (%) 98 06/02/16 21:42 Gastrointestinal: Yes: WNL, Normal Bowel Sounds, Abdomen, Obese. No: Tenderness Hospitalist Encounter Assessment: constipation - explained to pt that kaopectate is for diarrhea, states he thinks he means milk of magnesia - explained that MOM is contraindicated in renal failure - offered enema, pt refused - cont colace, senna and miralax - encourage pt to take tap water enema if further symptoms.
[2016-06-03] MEDS: INSULIN DETEMIR 100 UNITS/ML MDV SQ SCH (06:34)
[2016-06-03] MEDS: INSULIN SLIDING SCALE (NOVOLOG) 1 VIAL SQ SCH ×5 (06:35→21:37)
[2016-06-03] MEDS ORDERED: PATIENT'S OWN MEDICATION (NON-FORMULARY) (Insulin Glargine,Hum.Rec.Anlog 70 UNITS) SQ SCH (07:00)
[2016-06-03] MEDS: oxyCODONE HCL 5 MG TABLET PO PRN ×2 (08:58→21:08)
[2016-06-03] MEDS: ACETAMINOPHEN 325 MG TABLET (FP) PO PRN ×2 (08:59→21:08)
[2016-06-03 09:32] LABS: BASOPHIL 0.1 % (0-2.0); EOSINOPHIL 0.4 % (0-4.5); MCH 30.3 pg (25.7-33.7); MCHC 32.9 g/dl (32.0-35.9); MEAN PLT VOLUME 9.8 fl (7.5-11.1); NEUTROPHILS 84.5 % (42.8-82.8); PLATELET COUNT 115 K/MM3 (134-434); RDW 17.8 % (11.9-15.9); WHITE BLOOD COUNT 7.2 K/mm3 (4.0-10.0)
[2016-06-03 09:58] LABS: ALBUMIN 2.9 g/dl (3.4-5.0); CALCIUM 8.4 mg/dL (8.5-10.1); COCKROFT - GAULT 67.53
[2016-06-03 10:00] LABS: BILIRUBIN,TOTAL 1.1 mg/dL (0.2-1.0); TOT PROT 6.4 g/dl (6.4-8.2)
[2016-06-03] MEDS ORDERED: PATIENT'S OWN MEDICATION (NON-FORMULARY) (Colchicine [Colchicine] 0.6 MG) PO SCH (10:00)
[2016-06-03] MEDS ORDERED: PATIENT'S OWN MEDICATION (NON-FORMULARY) (Ferrous Sulfate [Ferrous Sulfate] 325 MG) PO SCH (10:00)
[2016-06-03] MEDS: COLCHICINE 0.6 MG TABLET (FP) PO SCH (10:13)
[2016-06-03] MEDS: TORSEMIDE 20 MG TABLET (FP) PO SCH ×2 (10:14→21:08)
[2016-06-03] MEDS: DEXAMETHASONE 4 MG TABLET (FP) PO SCH (10:14)
[2016-06-03] MEDS: ALLOPURINOL 100 MG TABLET (FP) PO SCH (10:14)
[2016-06-03] MEDS: CARVEDILOL 6.25 MG TABLET (FP) PO SCH ×2 (10:14→21:08)
[2016-06-03] MEDS: LISINOPRIL 5 MG TABLET (FP) PO SCH (10:14)
[2016-06-03] MEDS: RIVAROXABAN 15 MG TABLET PO SCH (10:15)
[2016-06-03] MEDS: DOCUSATE SODIUM 100 MG CAPSULE (FP) PO SCH ×2 (10:15→21:08)
[2016-06-03] MEDS: FERROUS SO4 325 MG TABLET (FP) PO SCH (10:15)
[2016-06-03] MEDS: SPIRONOLACTONE 25 MG TABLET (FP) PO SCH ×2 (10:15→21:08)
[2016-06-03] MEDS: TAMSULOSIN HCL 0.4 MG CAP.ER.24H (FP) PO SCH (10:15)
[2016-06-03] MEDS: CHOLECALCIFEROL (VITAMIN D3) 1,000 UNIT TABLET (FP) PO SCH (10:15)
[2016-06-03] MEDS: PANTOPRAZOLE 40 MG TABLET (FP) PO SCH (10:15)
[2016-06-03] MEDS: COLLAGENASE CLOSTRIDIUM HIST. 30 GRAMS TUBE TP SCH (10:32)
[2016-06-03] MEDS: POLYETHYLENE GLYCOL 3350 119 GM BTL PO SCH (12:29)
--- NOTE | 2016-06-03 13:33 | CONSULT ---
Consult Consult Specialty:: Nephrology ( Andrea/ Jann) Reason for Consultation:: Patient has CHronic Kideny disease - History of Present Illness Chief Complaint: Pateint is a 61 y/o male admitted with positive Cultures from ascitis fluid. History of Present Illness: The patient is well known to our service with Chronic Kidney Disease. History is significant for Coronary artery disease, Ischemic Cardiomyopathy, CHF , S/p CABG, Type n2 DM, COPD, CVA, Chr. Hep B, DVT and PVD The patient is extremely non-compliant with any and all dietary restrictions. 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 ef 15%), HTN, Other ( Ischemic cardiomyopathy) Pulmonary: Yes: Cancer (undocumented cell type), COPD Renal/: Yes: Renal Inusuff Infectious Disease: Yes: Other (Chronic lower extremity bilateral cellulitis ) Endocrine: Yes: Diabetes Mellitus - Past Surgical History Past Surgical History: Yes: AICD, CABG - Alcohol/Substance Use Hx Alcohol Use: No History of Substance Use: reports: None - Smoking History Smoking history: Current every day smoker Have you smoked in the past 12 months: Yes Aproximately how many cigarettes per day: 3 If you are a former smoker, when did you quit?: 2008 - Social History Usual Living Arrangement: With Spouse ADL: Independent 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 History of Recent Travel: No Home Medications - Allergies Allergies/Adverse Reactions: Allergies Allergy/AdvReac Type Severity Reaction Status Date / Time Iodinated Contrast Media - Allergy Verified 05/26/16 14:58 Oral and [Iodinated Contrast Media - IV Dye] raw fruits/vegetables Allergy Intermediate Rash Uncoded 05/26/16 14:58 iv contrast dye Allergy Uncoded 05/26/16 14:58 - Home Medications Home Medications: Ambulatory Orders Albuterol 2.5/Ipratropium 0.5 [Duoneb -] 1 neb NEB Q4H 05/09/15 Allopurinol [Zyloprim -] 100 mg PO DAILY 05/09/15 Carvedilol [Coreg] 6.25 mg PO BID 05/09/15 Colchicine 0.6 mg PO DAILY 05/09/15 Fluoxetine HCl [Prozac] 40 mg PO HS 03/27/16 Insulin Glargine,Hum.rec.anlog [Lantus (10mL VIAL) -] 70 units SQ AM 05/09/15 Liraglutide [Victoza -] 1.8 mg SQ DAILY@0700 05/09/15 Lisinopril [Zestril] 5 mg PO DAILY 05/09/15 Tamsulosin HCl [Flomax -] 0.4 mg PO DAILY 05/09/15 Trazodone HCl [Desyrel -] 50 mg PO BID 05/09/15 Sennosides/Docusate Sodium [Pericolace -] 1 tablet PO BID tablet 05/14/15 Atorvastatin Calcium 40 mg PO HS 05/09/16 Cholecalciferol (Vitamin D3) [Vitamin D -] 1,000 unit PO DAILY 05/09/16 Dexamethasone 4 mg PO TID 05/09/16 Famotidine/Ca Carb/Mag Hydrox [Pepcid Complete Tablet Chew] 1 each PO DAILY Ferrous Sulfate 325 mg PO DAILY 05/09/16 Gabapentin 100 mg PO DAILY 05/09/16 Insulin Regular, Human [Humulin R U-500 Kwikpen] 15 unit SQ TID 05/09/16 Collagenase Clostridium Hist. [Santyl -] 1 applic TP DAILY #1 tube 06/02/16 Rivaroxaban [Xarelto -] 15 mg PO DAILY #30 tablet 06/02/16 Spironolactone [Aldactone -] 25 mg PO BID #60 tablet 06/02/16 Torsemide [Demadex] 40 mg PO BID #120 tablet 06/02/16 Family Disease History - Family Disease History Family Disease History: Other: Father, Mother, Brother, Sister Review of Systems - Review of Systems Constitutional: reports: Chills Eyes: denies: No Symptoms, Blind Spots, Blurred Vision, Double Vision, Eye Pain , Floaters, Photophobia, Recent Change in Vision, Other Neck: reports: No Symptoms Cardiovascular: reports: Edema, Shortness of Breath Respiratory: reports: Cough, PND, SOB on Exertion Gastrointestinal: reports: Abdominal Pain, Constipation Genitourinary: reports: No Symptoms. denies: Burning, Discharge, Dysuria, Flank Pain, Frequency, Hematuria, Incontinence, Lesions, Menses, Pain, Testicular Mass, Testicular Pain, Testicular Swelling, Urgency, Vaginal Bleeding , Other Physical Exam Vital Signs: Vital Signs Temperature 98.6 F 06/03/16 09:00 Pulse Rate 67 06/03/16 09:54 Respiratory Rate 22 06/03/16 09:00 Blood Pressure 105/53 06/03/16 09:00 O2 Sat by Pulse Oximetry (%) 98 06/03/16 09:54 Constitutional: Yes: Well Nourished, Anxious HENT: Yes: Other. No: WNL, Atraumatic, Normocephalic, Drooling, Epistaxis, Hoarseness, Nasal Congestion, Pharyngeal Erythema, Rhinnorhea, Thrush, Tonsillar Exudate Cardiovascular: Yes: Regular Rate and Rhythm, S1, S2 Respiratory: Yes: Diminished, Poor Air Entry Gastrointestinal: Yes: Abdomen, Obese, Tenderness Renal/: Yes: Other. No: WNL, Anuria, Bladder Distention, CVA Tenderness - Left, CVA Tenderness - Right, Daniel Present, Hematuria, Incontinence, Menses Present, Oliguria, Polyuria, , Scrotal Edema, Urethral Discharge, Vaginal Bleeding, Vaginal Discharge Musculoskeletal: Yes: Joint Stiffness Labs: CBC, BMP 06/03/16 08:25 06/03/16 08:25 Problem List - Problems (1) ASHD (arteriosclerotic heart disease) Code(s): I25.10 - ATHSCL HEART DISEASE OF [place] CORONARY ARTERY W/O ANG PCTRS (2) Acute on chronic systolic and diastolic heart failure, NYHA class 4 Code(s): I50.43 - ACUTE ON CHRONIC COMBINED SYSTOLIC AND DIASTOLIC HRT FAIL (3) Ascites Code(s): R18.8 - OTHER ASCITES Qualifiers: Ascites type: other type Qualified Code(s): R18.8 - Other ascites (4) CKD (chronic kidney disease) Code(s): N18.9 - CHRONIC KIDNEY DISEASE, UNSPECIFIED Qualifiers: Chronic kidney disease stage: stage 3 (moderate) Qualified Code(s): N18.3 - Chronic kidney disease, stage 3 (moderate) (5) COPD (chronic obstructive pulmonary disease) Code(s): J44.9 - CHRONIC OBSTRUCTIVE PULMONARY DISEASE, UNSPECIFIED Qualifiers : COPD type: chronic bronchitis (6) COPD (chronic obstructive pulmonary disease) case management patient Code(s): RGX8279 - (7) Constipation Code(s): K59.00 - CONSTIPATION, UNSPECIFIED (8) Diabetes mellitus Code(s): E11.9 - TYPE 2 DIABETES MELLITUS WITHOUT COMPLICATIONS Qualifiers: Diabetes mellitus type: type 2 Diabetes mellitus complication status: with kidney complications Diabetes mellitus complication detail: with chronic kidney disease 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: with [facility] use Chronic kidney disease stage: stage 4 (severe) Qualified Code(s): E11.22 - Type 2 diabetes mellitus with diabetic chronic kidney disease ; N18.1 - Chronic kidney disease, stage 1; Z79.4 - long-term (current) use of insulin (9) Hepatitis B Code(s): B19.10 - UNSPECIFIED VIRAL HEPATITIS B WITHOUT HEPATIC COMA (10) Hx of CABG Code(s): Z95.1 - PRESENCE OF AORTOCORONARY BYPASS GRAFT (11) Ischemic cardiomyopathy Code(s): I25.5 - ISCHEMIC CARDIOMYOPATHY (12) Morbid obesity Code(s): E66.01 - MORBID (SEVERE) OBESITY DUE TO EXCESS CALORIES Qualifiers: Obesity type: due to excess calories Qualified Code(s): E66.01 - Morbid (severe) obesity due to excess calories (13) Poor compliance Code(s): Z91.19 - PATIENT'S NONCOMPLIANCE W OTH MEDICAL TREATMENT AND REGIMEN (14) Tobacco abuse Code(s): Z72.0 - TOBACCO USE (15) Type 2 diabetes mellitus with mild nonproliferative diabetic retinopathy without macular edema Code(s): E11.329 - TYPE 2 DIAB W MILD NONPRLF DIABETIC RTNOP W/O * DO NOT USE * Qualifiers: 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 The underlying Renal disease is due mostly to Chronic Microvascular Diabetic renal disease. But the patient has many co-morbid conditions that contribute to his current Renal status. Plan: IV antibotics as ordered by the ID services. If Nephrotoxic/renally excreted antibiotics are ordered, should adjust for the current renal status. Will continue the Torsemide as ordered. Will monitor the renal functions closely with you. Thanks again. Jammie Mendez MD
--- NOTE | 2016-06-03 13:34 | PN ---
Progress Note (short form) - Note Progress Note: Subjective: The patient was seen and examined at the bedside, he has complaints of his insulin and would like to take when he takes at home Humulin R U500 30u sq tidac. Spoke to pharmacy, order placed Discussed in detail with Dr. Miller and Dr. Denise. Will order diagnostic paracentesis for Sunday. Current Medications Generic Name Dose Route Start Last Admin Trade Name Freq PRN Reason Stop Dose Admin Acetaminophen 325 mg 06/02/16 22:31 06/03/16 08:59 Tylenol - PO 325 mg Q6H PRN Administration PAIN Albuterol/Ipratropium 1 amp 06/02/16 18:00 06/03/16 13:25 Duoneb - NEB 1 amp Q4HPO MAGEN Administration Allopurinol 100 mg 06/03/16 10:00 06/03/16 10:14 Zyloprim - PO 100 mg DAILY MAGEN Administration Atorvastatin Calcium 40 mg 06/02/16 22:00 06/02/16 22:08 Lipitor - PO 40 mg HS MAGEN Administration Carvedilol 6.25 mg 06/02/16 22:00 06/03/16 10:14 Coreg - PO 6.25 mg BID MAGEN Administration Cholecalciferol 1,000 unit 06/03/16 10:00 06/03/16 10:15 Vitamin D3 - PO 1,000 unit DAILY MAGEN Administration Colchicine 0.6 mg 06/03/16 10:00 06/03/16 10:13 Colcrys - PO 0.6 mg DAILY MAGEN Administration Collagenase 1 applic 06/03/16 10:00 Santyl - TP DAILY MAGEN Dexamethasone 4 mg 06/03/16 10:00 06/03/16 10:14 Decadron - PO 4 mg DAILY MAGEN Administration Docusate Sodium 100 mg 06/02/16 22:00 06/03/16 10:15 Colace - PO 100 mg BID MAGEN Administration Ferrous Sulfate 325 mg 06/03/16 10:00 06/03/16 10:15 Feosol - PO 325 mg DAILY MAGEN Administration Fluoxetine HCl 40 mg 06/02/16 22:00 06/02/16 22:08 Prozac - PO 40 mg HS MAGEN Administration Insulin Aspart 1 vial 06/02/16 22:00 06/03/16 13:30 Novolog Vial Sliding Scale - SQ Not Given ACHS [facility] Protocol Insulin Detemir 70 units 06/03/16 07:00 06/03/16 06:34 Levemir Vial SQ 70 units ACBK MAGEN Administration Lisinopril 5 mg 06/03/16 10:00 06/03/16 10:14 Prinivil PO 5 mg DAILY MAGEN Administration Humulin R U-500 Pen 30 each 06/03/16 12:30 - Patient Own Med SQ TIDAC MAGEN Oxycodone HCl 5 mg 06/02/16 22:31 06/03/16 08:58 Roxicodone - PO 5 mg Q6H PRN Administration PAIN Pantoprazole Sodium 40 mg 06/03/16 10:00 06/03/16 10:15 Protonix - PO 40 mg DAILY MAGEN Administration Polyethylene Glycol 17 gm 06/03/16 10:00 06/03/16 12:29 Miralax (For Daily Use) - PO 17 grams DAILY MAGEN Administration Rivaroxaban 15 mg 06/03/16 10:00 06/03/16 10:15 Xarelto - PO 15 mg DAILY MAGEN Administration Senna 2 tab 06/02/16 22:00 06/02/16 22:08 Senna - PO 2 tab HS MAGEN Administration Spironolactone 25 mg 06/02/16 22:00 06/03/16 10:15 Aldactone - PO 25 mg BID MAGEN Administration Tamsulosin HCl 0.4 mg 06/03/16 10:00 06/03/16 10:15 Flomax - PO 0.4 mg DAILY MAGEN Administration Torsemide 40 mg 06/02/16 22:00 06/03/16 10:14 Demadex - PO 40 mg BID MAGEN Administration Objective: Vital Signs Period Temp Pulse Resp BP Sys/Mcconnell Pulse Ox Last 24 Hr 98.1 F-98.6 F 67-72 20-22 105-122/53-68 98-98 Physical Exam: General: NAD, A&Ox3 Lungs: CTA bilaterally Heart: RRR, S1S2 Abd: Soft, distended. Normoactive bowel sounds. Non-tender Ext: B/l lower extremities with chronic changes. B/l wounds, beefy red with no pus or eschar noted CBCD WBC 7.2 K/mm3 (4.0-10.0) 06/03/16 08:25 RBC 3.92 M/mm3 (4.00-5.60) L 06/03/16 08:25 Hgb 11.9 GM/dL (11.7-16.9) 06/03/16 08:25 Hct 36.1 % (35.4-49) 06/03/16 08:25 MCV 92.0 fl (80-96) 06/03/16 08:25 MCHC 32.9 g/dl (32.0-35.9) 06/03/16 08:25 RDW 17.8 % (11.9-15.9) H 06/03/16 08:25 Plt Count 115 K/MM3 (134-434) L 06/03/16 08:25 MPV 9.8 fl (7.5-11.1) 06/03/16 08:25 CMP Sodium 135 mmol/L (136-145) L 06/03/16 08:25 Potassium 4.3 mmol/L (3.5-5.1) 06/03/16 08:25 Chloride 94 mmol/L (98-107) L 06/03/16 08:25 Carbon Dioxide 32 mmol/L (21-32) 06/03/16 08:25 Anion Gap 9 (8-16) 06/03/16 08:25 BUN 54 mg/dL (7-18) H 06/03/16 08:25 Creatinine 2.0 mg/dL (0.7-1.3) H 06/03/16 08:25 Creat Clearance w eGFR 34.14 (>60) 06/03/16 08:25 Random Glucose 253 mg/dL (74-106) H D 06/03/16 08:25 Calcium 8.4 mg/dL (8.5-10.1) L 06/03/16 08:25 Total Bilirubin 1.1 mg/dL (0.2-1.0) H 06/03/16 08:25 AST 53 U/L (15-37) H D 06/03/16 08:25 ALT 88 U/L (12-78) H D 06/03/16 08:25 Alkaline Phosphatase 200 U/L (45-117) H 06/03/16 08:25 Total Protein 6.4 g/dl (6.4-8.2) 06/03/16 08:25 Albumin 2.9 g/dl (3.4-5.0) L 06/03/16 08:25 Microbiology 05/29/16 12:30 Peritoneal Fluid Gram Stain - Final 05/29/16 12:30 Peritoneal Fluid Anaerobic Culture - Final NO ANAEROBES WERE ISOLATED 05/29/16 12:30 Peritoneal Fluid Body Fluid Culture - Preliminary Streptococcus Mitis Pediococcus Pentosaceus Assessment: This is a 61 year old male with PMHx of HTN, HLD, DM II ischemic dilated cardiomyopathy, systolic heart failure s/p PPM/AICD, CAD s/p CABG, DVT, CVA, COPD (home oxygen dependent), and lung cancer, morbid obesity, s/p paracentesis 05/29 admitted with evaluation of positive peritoneal fluid. Plan: 1) ID: + peritoneal fluid culture from paracentesis on 05/29 - Blood cultures sent - Discussed with ID, GI, will resend peritoneal fluid on Sunday for repeat cultures - Monitor off abx, concern for streptococcus mitis with AICD, f/u ECHO to r/o vegetation - F/u ID consult 2) Cardiology: Chronic severe LV systolic CHF with ischemic cardiomyopathy - Continue Torsemide 40mg BID - Continue Aldactone 25mg BID - Continue Coreg 3.125mg BID - Daily weights HTN - Continue Lisinopril PSVT, paroxysmal atrial flutter - Continue Xarelto (dosed for renal function) CAD s/p CABG, hx of cardiac arrest - Continue ASA - Continue Lipitor 3) Endocrine: IDDM - Humulin R U-500 30u sq tidac - Levemir 70u sq am - BGM ACHS 4) Pulmonary: COPD with pulmonary nodules - Continue Decadron - F/u outpatient pulmonary 5) : CKD - Continue to monitor - Baseline Cr ~1.8 - Appreciate nephrology consult 6) F/E/N: - Monitor electrolytes - Sodium controlled/diabetic diet 7) Prophylaxis: - On Xarelto - OOB ambulating 8) Dispo: - Requires continued inpatient care CODE STATUS: FULL CODE Visit type - Emergency Visit Emergency Visit: Yes ED Registration Date: 06/02/16 Care time: The patient presented to the Emergency Department on the above date and was hospitalized for further evaluation of their emergent condition. - New Patient This patient is new to me today: Yes Date on this admission: 06/03/16 - Critical Care Critical Care patient: No
--- NOTE | 2016-06-03 15:14 | CON.GI ---
Consult Consult Specialty:: GASTROENTEROLOGY Reason for Consultation:: POSITIVE ASCITIC FLUID CULTURE - History of Present Illness Chief Complaint: ASCITIES History of Present Illness: 61 YEAR OLD MALE WITH MULTIPLE MEDICAL PROBLEMS INCLUDING ISCHEMIC CARDIOMYOPATHY AND ASCITES. DURING HIS RECENT ADMISSION HIS ASCITES WAS TAPPED AND CULTURES WERE SENT. TWO ORGANISMS GREW OUT FROM THAT FLUID AND HE WAS ASKED TO RETURN TO THE HOSPITAL. HE HAS NO FEVER OR ABDOMINAL PAIN. - History Source History Provided By: Patient Limitations to Obtaining History: No Limitations - Past Medical History BED PLACEMENT COORDINATOR: Yes: CVA Cardio/Vascular: Yes: CAD, CHF (s/p defibrillator. ef 15%), HTN, Other ( Ischemic cardiomyopathy) Pulmonary: Yes: Cancer (undocumented cell type), COPD Gastrointestinal: Yes: Ascites Hepatobiliary: Yes: Other (POSSIBLE CIRRHOSIS FROM NON CARDIAC ETIOLOGY) Renal/: Yes: Renal Inusuff Infectious Disease: Yes: Other (Chronic lower extremity bilateral cellulitis ) Endocrine: Yes: Diabetes Mellitus - Past Surgical History Past Surgical History: Yes: AICD, CABG - Alcohol/Substance Use Hx Alcohol Use: No History of Substance Use: reports: None - Smoking History Smoking history: Current every day smoker Have you smoked in the past 12 months: Yes Aproximately how many cigarettes per day: 3 If you are a former smoker, when did you quit?: 2008 - Social History Usual Living Arrangement: With Spouse ADL: Independent 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 History of Recent Travel: No Home Medications - Allergies Allergies/Adverse Reactions: Allergies Allergy/AdvReac Type Severity Reaction Status Date / Time Iodinated Contrast Media - Allergy Verified 05/26/16 14:58 Oral and [Iodinated Contrast Media - IV Dye] raw fruits/vegetables Allergy Intermediate Rash Uncoded 05/26/16 14:58 iv contrast dye Allergy Uncoded 05/26/16 14:58 - Home Medications Home Medications: Ambulatory Orders Albuterol 2.5/Ipratropium 0.5 [Duoneb -] 1 neb NEB Q4H 05/09/15 Allopurinol [Zyloprim -] 100 mg PO DAILY 05/09/15 Carvedilol [Coreg] 6.25 mg PO BID 05/09/15 Colchicine 0.6 mg PO DAILY 05/09/15 Fluoxetine HCl [Prozac] 40 mg PO HS 05/09/15 Insulin Glargine,Hum.rec.anlog [Lantus (10mL VIAL) -] 70 units SQ AM 05/09/15 Liraglutide [Victoza -] 1.8 mg SQ DAILY@0700 05/09/15 Lisinopril [Zestril] 5 mg PO DAILY 05/09/15 Tamsulosin HCl [Flomax -] 0.4 mg PO DAILY 05/09/15 Trazodone HCl [Desyrel -] 50 mg PO BID 05/09/15 Sennosides/Docusate Sodium [Pericolace -] 1 tablet PO BID tablet 05/14/15 Atorvastatin Calcium 40 mg PO HS 05/09/16 Cholecalciferol (Vitamin D3) [Vitamin D -] 1,000 unit PO DAILY 05/09/16 Dexamethasone 4 mg PO TID 05/09/16 Famotidine/Ca Carb/Mag Hydrox [Pepcid Complete Tablet Chew] 1 each PO DAILY Ferrous Sulfate 325 mg PO DAILY 05/09/16 Gabapentin 100 mg PO DAILY 05/09/16 Insulin Regular, Human [Humulin R U-500 Kwikpen] 15 unit SQ TID 05/09/16 Collagenase Clostridium Hist. [Santyl -] 1 applic TP DAILY #1 tube 06/02/16 Rivaroxaban [Xarelto -] 15 mg PO DAILY #30 tablet 06/02/16 Spironolactone [Aldactone -] 25 mg PO BID #60 tablet 06/02/16 Torsemide [Demadex] 40 mg PO BID #120 tablet 06/02/16 Family Disease History - Family Disease History Family Disease History: Other: Father, Mother, Brother, Sister Review of Systems - Review of Systems Constitutional: reports: Diaphoresis, Weakness Eyes: reports: No Symptoms HENT: reports: No Symptoms Neck: reports: No Symptoms Cardiovascular: reports: Shortness of Breath Respiratory: reports: Exercise Intolerance, Orthopnea, SOB on Exertion Gastrointestinal: reports: Other (ABDOMINAL GIRTH INCREASING. HEAVINESS IN ABDOMEN BUT NO ABDOMINAL PAIN) Genitourinary: reports: No Symptoms Musculoskeletal: reports: Muscle Weakness Neurological: reports: No Symptoms Endocrine: reports: No Symptoms, Increased Thirst Hematology/Lymphatic: reports: No Symptoms Psychiatric: reports: No Symptoms Physical Exam-GI Vital Signs: Vital Signs Temperature 98.9 F 06/03/16 14:03 Pulse Rate 77 06/03/16 14:03 Respiratory Rate 20 06/03/16 14:03 Blood Pressure 104/54 06/03/16 14:03 O2 Sat by Pulse Oximetry (%) 98 06/03/16 09:54 Constitutional: Yes: Obese Eyes: Yes: WNL HENT: Yes: WNL Neck: Yes: WNL Cardiovascular: Yes: JVD Respiratory: Yes: Diminished, Other (MIDLINE SCAR) Gastrointestinal Inspection: Yes: Ascites, Distention ...Auscultate: Yes: Normoactive Bowel Sounds ...Palpate: Yes: Soft (NONTENDER) ...Percussion: Yes: Fluid Wave Extremities: Yes: WNL Edema: Yes Edema: LLE: 2+, RLE: 2+ Psychiatric: Yes: WNL, Alert, Oriented Labs: CBC, BMP 06/03/16 08:25 06/03/16 08:25 Laboratory Tests 06/02/16 06/03/16 06/03/16 20:21 08:25 08:25 WBC 7.2 RBC 3.92 L Hgb 11.9 Hct 36.1 MCV 92.0 MCHC 32.9 RDW 17.8 H Plt Count 115 L MPV 9.8 Neutrophils % 84.5 H Lymphocytes % 6.1 L D Monocytes % 8.9 Eosinophils % 0.4 Basophils % 0.1 Sodium 135 L Potassium 4.3 Chloride 94 L Carbon Dioxide 32 Anion Gap 9 BUN 54 H Creatinine 2.0 H Creat Clearance w eGFR 34.14 Random Glucose 253 H D Calcium 8.4 L Total Bilirubin 1.1 H AST 53 H D ALT 88 H D Alkaline Phosphatase 200 H C-Reactive Protein 0.5 H Total Protein 6.4 Albumin 2.9 L Problem List - Problems (1) Ascites Assessment/Plan: THE NON CARDIAC LIVER COMPONENT OF THIS WILL BE WORKED BY DR ALBA WHEN HE RETURNS ON SUNDAY. CURRENTLY WE HAVE A PATIENT WHO HAD TWO BACTERIA GROW IN ASCITIC FLUID CULTURE WHO IS ASYMPTOMATIC. THE TWO ORGANISMS WERE STEPT MITIS AND PEDIOCOCCUS PENTOSARUES. THE ISSUE IS THAT HIS PMNs IN THAT SAMPLE OF FLUID WERE ONLY 195 AND NOT THE CRITERIA FOR SBP(>_ 250 CELLS). THEREFORE, THIS IS NOW CLASSIFIED BACTERACITIES AND THE ABDOMEN SHOULD BE TAPPED AGAIN ( DIAGNOSIS AND THERAPEUTICS). IF THE PMNs ARE EQUAL OR GREATER THAN 250 HE SHOULD BE TREATED. BLOOD CULTURES AND ECHO SHOULD BE PERFORMED. CASE DISCUSSED WITH THE HOSPITALIST AND THE ID TEAM. Code(s): R18.8 - OTHER ASCITES Qualifiers: Ascites type: other type Qualified Code(s): R18.8 - Other ascites (2) ASHD (arteriosclerotic heart disease) Code(s): I25.10 - ATHSCL HEART DISEASE OF [place] CORONARY ARTERY W/O ANG PCTRS (3) Acute on chronic systolic and diastolic heart failure, NYHA class 4 Code(s): I50.43 - ACUTE ON CHRONIC COMBINED SYSTOLIC AND DIASTOLIC HRT FAIL (4) CHF (congestive heart failure) Code(s): I50.9 - HEART FAILURE, UNSPECIFIED Qualifiers: Congestive heart failure type: systolic Congestive heart failure chronicity: acute on chronic Qualified Code(s): I50.23 - Acute on chronic systolic (congestive) heart failure (5) CKD (chronic kidney disease) Code(s): N18.9 - CHRONIC KIDNEY DISEASE, UNSPECIFIED Qualifiers: Chronic kidney disease stage: stage 3 (moderate) Qualified Code(s): N18.3 - Chronic kidney disease, stage 3 (moderate) (6) COPD (chronic obstructive pulmonary disease) Code(s): J44.9 - CHRONIC OBSTRUCTIVE PULMONARY DISEASE, UNSPECIFIED Qualifiers : COPD type: chronic bronchitis (7) Diabetes mellitus Code(s): E11.9 - TYPE 2 DIABETES MELLITUS WITHOUT COMPLICATIONS Qualifiers: Diabetes mellitus type: type 2 Diabetes mellitus complication status: with kidney complications Diabetes mellitus complication detail: with chronic kidney disease Diabetes mellitus residential insulin use: with residential use Chronic kidney disease stage: stage 4 (severe) Qualified Code(s): E11.22 - Type 2 diabetes mellitus with diabetic chronic kidney disease ; N18.1 - Chronic kidney disease, stage 1; Z79.4 - [facility] (current) use of insulin (8) Hx of CABG Code(s): Z95.1 - PRESENCE OF AORTOCORONARY BYPASS GRAFT (9) Ischemic cardiomyopathy Code(s): I25.5 - ISCHEMIC CARDIOMYOPATHY (10) Morbid obesity Code(s): E66.01 - MORBID (SEVERE) OBESITY DUE TO EXCESS CALORIES Qualifiers: Obesity type: due to excess calories Qualified Code(s): E66.01 - Morbid (severe) obesity due to excess calories (11) Single implantable cardioverter-defibrillator (ICD) in situ Code(s): Z95.810 - PRESENCE OF AUTOMATIC (IMPLANTABLE) CARDIAC DEFIBRILLATOR
--- NOTE | 2016-06-03 16:59 | PN ---
Progress Note (short form) - Note Progress Note: ID consult dictated imp/reccs +peritoneal fluid culture (broth only- 2 organisms) ascitic fluid PMNS 195 no abdominal pain or fever readmitted for further evaluation looks very well no teeth (dentures for last 3 years) legs unwrapped, no purulence, some open skin ulcers all with beefy red base +venous stasis no abdominal pain plan for blood cultures (sent) repeat tap on Sunday- observe off antibiotics at this time patient is aware of this plan
--- NOTE | 2016-06-03 18:12 | CONS ---
DATE OF CONSULTATION: 06/03/2016 REQUESTING PHYSICIAN: Hospitalist. The patient was seen and examined. The case was discussed at length with the telephonic nurse Dr. Denise and the hospitalist. HISTORY OF PRESENT ILLNESS: This is a 61-year-old man who was originally admitted May 27 for increasing abdominal girth and shortness of breath. He has a significant cardiac history. He has an AICD which he has had for several years now for ischemic cardiomyopathy. He had an abdominal ultrasound during his last admission which revealed ascites. He underwent paracentesis as this was a new diagnosis. He was discharged on Sunday. At the time of discharge his culture results were not finalized and the culture subsequently came back with broth culture positive for streptococcus mitis enterococcus. He was called back and readmitted the same day. I was asked to see him for evaluation of this peritoneal fluid result. He has no fever or chills. He has no abdominal pain. In fact, since the last paracentesis he is feeling quite well because he has reduced abdominal girth which he said was really slowing down his ability to walk and to bend. He has chronic venous stasis and open ulcers on his legs for which he is followed by Dr. Quispe and he reports that these have all improved. PAST MEDICAL HISTORY: Is notable for CVA, CAD, CHF, status post defibrillator, hypertension, ischemic cardiomyopathy. He has history of COPD, renal insufficiency, DVT, chronic lower extremity venous stasis and diabetes. PAST SURGICAL HISTORY: Notable for CABG, ear surgery and the AICD. He has had the AICD for several years. He had a battery change last year. SOCIAL HISTORY: He is a former smoker. He lives with his . He is unemployed. He uses a walker when he is outside the house and within the house he is able to ambulate freely. ALLERGIES: IODINE, FRUITS, VEGETABLES, IV CONTRAST. MEDICATIONS AT HOME: Include Albuterol Ipratropium nebulizer, allopurinol, Coreg, colchicine, Prozac, Lantus insulin, Victoza, Zestril, Flomax, Desyrel, [place]ash[place]- Colace, atorvastatin, vitamin D, Pepcid, ferrous sulfate, gabapentin, insulin collagenase, Xarelto, Aldactone and Demodex. REVIEW OF SYSTEMS: He is actually reporting feeling much better. PHYSICAL EXAMINATION; GENERAL: He is awake and alert. VITAL SIGNS: Temperature 98.9, pulse is 77, blood pressure 104/54, respiratory rate 20, O2 saturation is 98% on 2 L. HEENT: Normocephalic. Eyes are anicteric. NECK: Supple. LUNGS: Clear to auscultation. HEART: Regular rate and rhythm. The defibrillator site is without tenderness or erythema. His midline sternal wound is well-healed. ABDOMEN: Soft. He has some ascites but it is nontender. EXTREMITIES: The dressings were unwrapped. He had bilateral venous stasis. He has several open ulcers all of which are clean. There is no purulence and they are beefy red. LABORATORY DATA: Notable for a white count of 7.2, hemoglobin 11.9, platelets 115. Chemistries showed BUN 54, creatinine 2.0 with a total bilirubin of 1.1, AST is 53, ALT 88, alkaline phosphatase 200. Sedimentation rate is 11 and CRP is 0.5. Blood cultures have been sent when he returned yesterday and are pending. IMPRESSION AND RECOMMENDATIONS: In summary this is a 61-year-old man with positive peritoneal fluid culture from broth only of 2 organisms in the setting of normal PMM of the ascitic fluid of only 195 and no abdominal pain or fever. Difficult to know what this really means, but in the setting of someone who has a defibrillator and open ulcers on the legs, I think blood cultures would be prudent which have been sent. As well, he is edentulous and has had dentures for the last 3 years, both upper and lower. I spoke with GI. Our plan as of now would be to followup his blood cultures to do a diagnostic test on Sunday to check the cell count and send a repeat culture. His CRP and sedimentation rate are reassuring as they are quite low which is not indicative of any infectious process. Would observe off antibiotics at this time. This was all discussed at length with the patient who is aware and agreeable with this plan. GHAZALA YOUSSEF M.D. [id number] MTDD
[2016-06-03] MEDS: FLUoxetine HCL 20 MG CAPSULE (FP) PO SCH (21:08)
[2016-06-03] MEDS: SENNOSIDES 8.6MG TABLET (FP) PO SCH (21:08)
[2016-06-03] MEDS: ATORVASTATIN CA 40 MG TABLET (FP) PO SCH (21:08)
[2016-06-04] MEDS: ALBUTEROL SO4 2.5/IPRATROPIUM 0.5 INH SOL 3 ML VIAL.NEB. NEB SCH ×6 (02:30→22:10)
[2016-06-04] MEDS: INSULIN SLIDING SCALE (NOVOLOG) 1 VIAL SQ SCH ×4 (06:11→21:37)
[2016-06-04] MEDS: HUMULIN R U SQ SCH ×3 (06:11→17:33)
[2016-06-04] MEDS: INSULIN DETEMIR 100 UNITS/ML MDV SQ SCH (06:11)
[2016-06-04 08:16] LABS: MCH 30.2 pg (25.7-33.7); MCHC 32.7 g/dl (32.0-35.9); MEAN CELL VOLUME 92.3 fl (80-96); MEAN PLT VOLUME 9.5 fl (7.5-11.1); PLATELET COUNT 129 K/MM3 (134-434); RDW 17.8 % (11.9-15.9); WHITE BLOOD COUNT 8.5 K/mm3 (4.0-10.0)
[2016-06-04 08:33] LABS: ALBUMIN 3.3 g/dl (3.4-5.0); CALCIUM 8.8 mg/dL (8.5-10.1); COCKROFT - GAULT 65.74
[2016-06-04 08:34] LABS: TOT PROT 7.1 g/dl (6.4-8.2)
[2016-06-04] MEDS: CHOLECALCIFEROL (VITAMIN D3) 1,000 UNIT TABLET (FP) PO SCH (10:14)
[2016-06-04] MEDS: SPIRONOLACTONE 25 MG TABLET (FP) PO SCH ×2 (10:14→21:34)
[2016-06-04] MEDS: TORSEMIDE 20 MG TABLET (FP) PO SCH ×2 (10:14→21:36)
[2016-06-04] MEDS: LISINOPRIL 5 MG TABLET (FP) PO SCH (10:14)
[2016-06-04] MEDS: FERROUS SO4 325 MG TABLET (FP) PO SCH (10:14)
[2016-06-04] MEDS: ALLOPURINOL 100 MG TABLET (FP) PO SCH (10:14)
[2016-06-04] MEDS: TAMSULOSIN HCL 0.4 MG CAP.ER.24H (FP) PO SCH (10:14)
[2016-06-04] MEDS: RIVAROXABAN 15 MG TABLET PO SCH (10:14)
[2016-06-04] MEDS: DEXAMETHASONE 4 MG TABLET (FP) PO SCH (10:14)
[2016-06-04] MEDS: DOCUSATE SODIUM 100 MG CAPSULE (FP) PO SCH ×2 (10:14→21:34)
[2016-06-04] MEDS: CARVEDILOL 6.25 MG TABLET (FP) PO SCH ×2 (10:14→21:34)
[2016-06-04] MEDS: PANTOPRAZOLE 40 MG TABLET (FP) PO SCH (10:15)
[2016-06-04] MEDS: POLYETHYLENE GLYCOL 3350 119 GM BTL PO SCH (10:15)
[2016-06-04] MEDS: COLCHICINE 0.6 MG TABLET (FP) PO SCH (10:15)
[2016-06-04] MEDS: COLLAGENASE CLOSTRIDIUM HIST. 30 GRAMS TUBE TP SCH (10:18)
--- NOTE | 2016-06-04 11:35 | PN ---
Progress Note (short form) - Note Progress Note: Subjective: The patient was seen and examined at the bedside, he states he is feeling better today. Patient is aware of the plan to repeat paracentesis tomorrow and ECHO Current Medications Generic Name Dose Route Start Last Admin Trade Name Freq PRN Reason Stop Dose Admin Acetaminophen 325 mg 06/02/16 22:31 06/03/16 21:08 Tylenol - PO 325 mg Q6H PRN Administration PAIN Albuterol/Ipratropium 1 amp 06/02/16 18:00 06/04/16 10:49 Duoneb - NEB 1 amp Q4HPO MAGEN Administration Allopurinol 100 mg 06/03/16 10:00 06/04/16 10:14 Zyloprim - PO 100 mg DAILY MAGEN Administration Atorvastatin Calcium 40 mg 06/02/16 22:00 06/03/16 21:08 Lipitor - PO 40 mg HS MAGEN Administration Carvedilol 6.25 mg 06/02/16 22:00 06/04/16 10:14 Coreg - PO 6.25 mg BID MAGEN Administration Cholecalciferol 1,000 unit 06/03/16 10:00 06/04/16 10:14 Vitamin D3 - PO 1,000 unit DAILY MAGEN Administration Colchicine 0.6 mg 06/03/16 10:00 06/04/16 10:15 Colcrys - PO 0.6 mg DAILY MAGEN Administration Collagenase 1 applic 06/03/16 10:00 06/03/16 10:32 Santyl - TP Not Given DAILY MAGEN Dexamethasone 4 mg 06/03/16 10:00 06/04/16 10:14 Decadron - PO 4 mg DAILY MAGEN Administration Docusate Sodium 100 mg 06/02/16 22:00 06/04/16 10:14 Colace - PO 100 mg BID MAGEN Administration Ferrous Sulfate 325 mg 06/03/16 10:00 06/04/16 10:14 Feosol - PO 325 mg DAILY [facility] Administration Fluoxetine HCl 40 mg 06/02/16 22:00 06/03/16 21:08 Prozac - PO 40 mg HS MAGEN Administration Insulin Aspart 1 vial 06/02/16 22:00 06/04/16 06:11 Novolog Vial Sliding Scale - SQ Not Given ACHS MAGEN Protocol Insulin Detemir 70 units 06/03/16 07:00 06/04/16 06:11 Levemir Vial SQ 70 units ACBK [facility] Administration Lisinopril 5 mg 06/03/16 10:00 06/04/16 10:14 Prinivil PO 5 mg DAILY MAG[facility] Administration Humulin R U-500 Pen 30 each 06/03/16 12:30 06/04/16 06:11 - Patient Own Med SQ Not Given TIDAC MAGEN Oxycodone HCl 5 mg 06/02/16 22:31 06/03/16 21:08 Roxicodone - PO 5 mg Q6H PRN Administration PAIN Pantoprazole Sodium 40 mg 06/03/16 10:00 06/04/16 10:15 Protonix - PO 40 mg DAILY MAG[facility] Administration Polyethylene Glycol 17 gm 06/03/16 10:00 06/04/16 10:15 Miralax (For Daily Use) - PO 17 grams DAILY MAGEN Administration Rivaroxaban 15 mg 06/03/16 10:00 06/04/16 10:14 Xarelto - PO 15 mg DAILY MAGEN Administration Senna 2 tab 06/02/16 22:00 06/03/16 21:08 Senna - PO 2 tab HS MAGEN Administration Spironolactone 25 mg 06/02/16 22:00 06/04/16 10:14 Aldactone - PO 25 mg BID MAGEN Administration Tamsulosin HCl 0.4 mg 06/03/16 10:00 06/04/16 10:14 Flomax - PO 0.4 mg DAILY [facility] Administration Torsemide 40 mg 06/02/16 22:00 06/04/16 10:14 Demadex - PO 40 mg BID MAGEN Administration Objective: Vital Signs Period Temp Pulse Resp BP Sys/Mcconnell Pulse Ox Last 24 Hr 97.6 F-98.9 F 71-77 18-20 104-117/54-68 97 Physical Exam: General: NAD, A&Ox3 Lungs: CTA bilaterally Heart: RRR, S1S2 Abd: Soft, distended. Normoactive bowel sounds. Non-tender Ext: B/l lower extremities with chronic changes. B/l wounds, beefy red with no pus or eschar noted CBCD WBC 8.5 K/mm3 (4.0-10.0) 06/04/16 06:00 RBC 4.14 M/mm3 (4.00-5.60) 06/04/16 06:00 Hgb 12.5 GM/dL (11.7-16.9) 06/04/16 06:00 Hct 38.2 % (35.4-49) 06/04/16 06:00 MCV 92.3 fl (80-96) 06/04/16 06:00 MCHC 32.7 g/dl (32.0-35.9) 06/04/16 06:00 RDW 17.8 % (11.9-15.9) H 06/04/16 06:00 Plt Count 129 K/MM3 (134-434) L 06/04/16 06:00 MPV 9.5 fl (7.5-11.1) 06/04/16 06:00 CMP Sodium 136 mmol/L (136-145) 06/04/16 06:00 Potassium 4.9 mmol/L (3.5-5.1) 06/04/16 06:00 Chloride 93 mmol/L (98-107) L 06/04/16 06:00 Carbon Dioxide 33 mmol/L (21-32) H 06/04/16 06:00 Anion Gap 10 (8-16) 06/04/16 06:00 BUN 52 mg/dL (7-18) H 06/04/16 06:00 Creatinine 2.0 mg/dL (0.7-1.3) H 06/04/16 06:00 Creat Clearance w eGFR 34.14 (>60) 06/04/16 06:00 Random Glucose 154 mg/dL (74-106) H D 06/04/16 06:00 Calcium 8.8 mg/dL (8.5-10.1) 06/04/16 06:00 Total Bilirubin 1.0 mg/dL (0.2-1.0) 06/04/16 06:00 AST 59 U/L (15-37) H 06/04/16 06:00 ALT 107 U/L (12-78) H D 06/04/16 06:00 Alkaline Phosphatase 226 U/L (45-117) H 06/04/16 06:00 Total Protein 7.1 g/dl (6.4-8.2) 06/04/16 06:00 Albumin 3.3 g/dl (3.4-5.0) L 06/04/16 06:00 Microbiology 06/02/16 20:21 Blood - Peripheral Venous Blood Culture - Preliminary NO GROWTH OBTAINED AFTER 24 HOURS, INCUBATION TO CONTINUE FOR 4 DAYS. 06/02/16 20:21 Blood - Peripheral Venous Blood Culture - Preliminary NO GROWTH OBTAINED AFTER 24 HOURS, INCUBATION TO CONTINUE FOR 4 DAYS. Assessment: This is a 61 year old male with PMHx of HTN, HLD, DM II ischemic dilated cardiomyopathy, systolic heart failure s/p PPM/AICD, CAD s/p CABG, DVT, CVA, COPD (home oxygen dependent), and lung cancer, morbid obesity, s/p paracentesis 05/29 admitted with evaluation of positive peritoneal fluid. Plan: 1) ID: + peritoneal fluid culture from paracentesis on 05/29 - Blood cultures NGTD - Discussed with ID, GI, will resend peritoneal fluid on Sunday for repeat cultures - Monitor off abx, concern for streptococcus mitis with AICD, f/u ECHO to r/o vegetation - Appreciate ID consult 2) Cardiology: Chronic severe LV systolic CHF with ischemic cardiomyopathy - Continue Torsemide 40mg BID - Continue Aldactone 25mg BID - Continue Coreg 3.125mg BID - Daily weights HTN - Continue Lisinopril PSVT, paroxysmal atrial flutter - Continue Xarelto (dosed for renal function), hold for paracentesis CAD s/p CABG, hx of cardiac arrest - Continue ASA - Continue Lipitor 3) Endocrine: IDDM - Humulin R U-500 30u sq tidac - Levemir 70u sq am - BGM ACHS 4) Pulmonary: COPD with pulmonary nodules - Continue Decadron - F/u outpatient pulmonary 5) : CKD - Continue to monitor - Baseline Cr ~1.8 - Appreciate nephrology consult 6) F/E/N: - Monitor electrolytes - Sodium controlled/diabetic diet 7) Prophylaxis: - On Xarelto, hold for paracentesis tomorrow - OOB ambulating 8) Dispo: - Requires continued inpatient care CODE STATUS: FULL CODE Visit type - Emergency Visit Emergency Visit: Yes ED Registration Date: 06/02/16 Care time: The patient presented to the Emergency Department on the above date and was hospitalized for further evaluation of their emergent condition. - New Patient This patient is new to me today: No - Critical Care Critical Care patient: No
[2016-06-04] MEDS: oxyCODONE HCL 5 MG TABLET PO PRN (14:26)
[2016-06-04] MEDS: ACETAMINOPHEN 325 MG TABLET (FP) PO PRN (14:30)
[2016-06-04] MEDS ORDERED: INSULIN (NOVOLOG) ASPART 100 UNITS/ML 10ML VIAL SQ ONE (17:25)
[2016-06-04] MEDS ORDERED: INSULIN (NOVOLOG) ASPART 100 UNITS/ML 10ML VIAL ONE (17:40)
[2016-06-04] MEDS: SENNOSIDES 8.6MG TABLET (FP) PO SCH (21:35)
[2016-06-04] MEDS: ATORVASTATIN CA 40 MG TABLET (FP) PO SCH (21:36)
[2016-06-04] MEDS: FLUoxetine HCL 20 MG CAPSULE (FP) PO SCH (21:37)
[2016-06-05] MEDS: ALBUTEROL SO4 2.5/IPRATROPIUM 0.5 INH SOL 3 ML VIAL.NEB. NEB SCH ×5 (02:30→18:00)
[2016-06-05] MEDS: HUMULIN R U SQ SCH ×3 (06:30→17:55)
[2016-06-05] MEDS: INSULIN DETEMIR 100 UNITS/ML MDV SQ SCH (06:32)
[2016-06-05] MEDS: INSULIN SLIDING SCALE (NOVOLOG) 1 VIAL SQ SCH ×3 (06:35→17:55)
[2016-06-05 08:20] LABS: MCH 30.4 pg (25.7-33.7); MEAN PLT VOLUME 10.1 fl (7.5-11.1); PLATELET COUNT 133 K/MM3 (134-434); WHITE BLOOD COUNT 8.8 K/mm3 (4.0-10.0)
[2016-06-05 08:37] LABS: ALBUMIN 3.2 g/dl (3.4-5.0); CALCIUM 9.4 mg/dL (8.5-10.1)
[2016-06-05 08:42] LABS: BILIRUBIN,TOTAL 1.2 mg/dL (0.2-1.0); COCKROFT - GAULT 68.2; CREATININE 1.9 mg/dL (0.7-1.3)
[2016-06-05] MEDS: ALLOPURINOL 100 MG TABLET (FP) PO SCH (09:52)
[2016-06-05] MEDS: PANTOPRAZOLE 40 MG TABLET (FP) PO SCH (09:52)
[2016-06-05] MEDS: COLCHICINE 0.6 MG TABLET (FP) PO SCH (09:52)
[2016-06-05] MEDS: SPIRONOLACTONE 25 MG TABLET (FP) PO SCH (09:52)
[2016-06-05] MEDS: CHOLECALCIFEROL (VITAMIN D3) 1,000 UNIT TABLET (FP) PO SCH (09:52)
[2016-06-05] MEDS: LISINOPRIL 5 MG TABLET (FP) PO SCH (09:52)
[2016-06-05] MEDS: CARVEDILOL 6.25 MG TABLET (FP) PO SCH (09:52)
[2016-06-05] MEDS: FERROUS SO4 325 MG TABLET (FP) PO SCH (09:52)
[2016-06-05] MEDS: TAMSULOSIN HCL 0.4 MG CAP.ER.24H (FP) PO SCH (09:52)
[2016-06-05] MEDS: DOCUSATE SODIUM 100 MG CAPSULE (FP) PO SCH (09:52)
[2016-06-05] MEDS: DEXAMETHASONE 4 MG TABLET (FP) PO SCH (09:52)
[2016-06-05] MEDS: POLYETHYLENE GLYCOL 3350 119 GM BTL PO SCH (09:53)
[2016-06-05] MEDS: TORSEMIDE 20 MG TABLET (FP) PO SCH (09:53)
[2016-06-05] MEDS: COLLAGENASE CLOSTRIDIUM HIST. 30 GRAMS TUBE TP SCH (10:00)
--- NOTE | 2016-06-05 10:28 | PN ---
Progress Note (short form) - Note Progress Note: Renal Follow up for CKD Pt seen and examined at the bedside reports feeling much better wants to go home denies any fever, abd pain, N/V/D, CP or sob Vital Signs Temperature 98.5 F 06/05/16 06:00 Pulse Rate 70 06/05/16 09:53 Respiratory Rate 20 06/05/16 06:00 Blood Pressure 105/60 06/05/16 06:00 O2 Sat by Pulse Oximetry (%) 94 L 06/05/16 09:53 Intake & Output 06/02/16 06/03/16 06/04/16 06/05/16 23:59 23:59 23:59 23:59 Intake Total 250 400 360 210 Output Total 1900 2300 700 1500 Balance -1650 -1900 -340 -1290 Weight 280 lb 6 oz 271 lb 6 oz 264 lb 3.2 oz 260 lb 6 oz Gen: NAD CVS: irregular, no M/R Lungs: CTA abd: + ascities, no tenderness Ext: 1+ edema in LE, dressing in place CBC, BMP 06/05/16 06:18 06/05/16 06:18 Laboratory Tests 06/02/16 06/05/16 11:30 06:18 Calcium 9.4 Total Bilirubin 1.2 H AST 38 H D ALT 97 H Alkaline Phosphatase 204 H Albumin 3.2 L Urine Protein Negative Urine Blood 2+ H Urine RBC 11 Urine WBC 3 Current Medications Acetaminophen (Tylenol -) 325 mg PO Q6H PRN PRN Reason: PAIN Last Admin: 06/04/16 14:30 Dose: 325 mg Albuterol/Ipratropium (Duoneb -) 1 amp NEB Q4HPO [facility] Last Admin: 06/05/16 09:51 Dose: 1 amp Allopurinol (Zyloprim -) 100 mg PO DAILY [facility] Last Admin: 06/05/16 09:52 Dose: 100 mg Atorvastatin Calcium (Lipitor -) 40 mg PO HS [facility] Last Admin: 06/04/16 21:36 Dose: 40 mg Carvedilol (Coreg -) 6.25 mg PO BID [facility] Last Admin: 06/05/16 09:52 Dose: 6.25 mg Cholecalciferol (Vitamin D3 -) 1,000 unit PO DAILY [facility] Last Admin: 06/05/16 09:52 Dose: 1,000 unit Colchicine (Colcrys -) 0.6 mg PO DAILY [facility] Last Admin: 06/05/16 09:52 Dose: 0.6 mg Collagenase (Santyl -) 1 applic TP DAILY [facility] Last Admin: 06/04/16 10:18 Dose: Not Given Dexamethasone (Decadron -) 4 mg PO DAILY [facility] Last Admin: 06/05/16 09:52 Dose: 4 mg Docusate Sodium (Colace -) 100 mg PO BID [facility] Last Admin: 06/05/16 09:52 Dose: 100 mg Ferrous Sulfate (Feosol -) 325 mg PO DAILY [facility] Last Admin: 06/05/16 09:52 Dose: 325 mg Fluoxetine HCl (Prozac -) 40 mg PO HS [facility] Last Admin: 06/04/16 21:37 Dose: 40 mg Insulin Aspart (Novolog Vial Sliding Scale -) 1 vial SQ ACHS [facility] PRN Reason: Protocol Last Admin: 06/05/16 06:35 Dose: 2 units Insulin Detemir (Levemir Vial) 70 units SQ ACBK [facility] Last Admin: 06/05/16 06:32 Dose: 70 units Lisinopril (Prinivil) 5 mg PO DAILY [facility] Last Admin: 06/05/16 09:52 Dose: 5 mg Humulin R U-500 Pen (- Patient Own Med) 30 each SQ TIDAC [facility] Last Admin: 06/05/16 06:30 Dose: Not Given Oxycodone HCl (Roxicodone -) 5 mg PO Q6H PRN PRN Reason: PAIN Last Admin: 06/04/16 14:26 Dose: 5 mg Pantoprazole Sodium (Protonix -) 40 mg PO DAILY [facility] Last Admin: 06/05/16 09:52 Dose: 40 mg Polyethylene Glycol (Miralax (For Daily Use) -) 17 gm PO DAILY [facility] Last Admin: 06/05/16 09:53 Dose: 17 grams Rivaroxaban (Xarelto -) 15 mg PO DAILY [facility] Last Admin: 06/04/16 10:14 Dose: 15 mg Senna (Senna -) 2 tab PO HS [facility] Last Admin: 06/04/16 21:35 Dose: 2 tab Spironolactone (Aldactone -) 25 mg PO BID [facility] Last Admin: 06/05/16 09:52 Dose: 25 mg Tamsulosin HCl (Flomax -) 0.4 mg PO DAILY [facility] Last Admin: 06/05/16 09:52 Dose: 0.4 mg Torsemide (Demadex -) 40 mg PO BID [facility] Last Admin: 06/05/16 09:53 Dose: 40 mg A/P 61 year old Gentleman with PMhx of CKD Stage 3 (baseline Cr 1.8), Cardiomyopathy , CAD s/p CABG, DM type 2, Hepatitis B, DVT, PVD readmitted to the hosital for suspeted peritonitis based on prior abd fluid culture with Cr of 1.9-2. #CKD Stage 3 Renal function remains stable at this time Continue Lisinopril, Aldactone and Torsemide if large volume paracentesis > 5L will need albumin replacement Trend BUN/Cr #Suspected Peritonitis for paracentesis today ID following Al Forte DO
[2016-06-05 10:29] LABS: INR 1.37 (0.82-1.09); PROTHROMBIN TIME (PATIENT) 15.2 SEC (9.98-11.88)
[2016-06-05 15:47] VITALS: BP 118/66; PULSE 77; TEMP 98.4
[2016-06-05 16:30] LABS: PERITONEAL FLUID EOSINOPHIL 1 %; PERITONEAL FLUID LYMPHOCYTE 18 %; PERITONEAL FLUID MACROPHAGE 54 %; PERITONEAL FLUID MONOCYTE 16 %; PERITONEAL FLUID NEUTROPHIL 11 %
--- NOTE | 2016-06-05 17:10 | PN ---
Progress Note (short form) - Note Progress Note: feels great wants to go home no fevers, no abdominal pain s/p paracentesis -70 PMNs glucose 237 gram stain negative blood cultures negative Vital Signs Period Temp Pulse Resp BP Sys/Mcconnell Pulse Ox Last 24 Hr 98.0 F-99.3 F 70-77 19-22 93-118/60-69 94-100 cor-rrr lungs clear abd soft,nt ext no edema a/p suspect prior ascites culture broth only- was a contaminant clinically no signs of sbp or systemic infection at this time no objection to discharge home off antibiotics if okay with GI
--- NOTE | 2016-06-06 18:39 | DS ---
Physical Exam: SUBJECTIVE: Patient seen and examined OBJECTIVE: PHYSICAL EXAM GENERAL: The patient is awake, alert, and fully oriented, in no acute distress. HEAD: Normal with no signs of trauma. EYES: PERRL, extraocular movements intact, sclera anicteric, conjunctiva clear. ENT: Ears normal, nares patent, oropharynx clear without exudates, moist mucous membranes. NECK: Trachea midline, full range of motion, supple. LUNGS: Breath sounds equal, clear to auscultation bilaterally, no wheezes, no crackles, no accessory muscle use. HEART: Regular rate and rhythm, S1, S2 without murmur, rub or gallop. ABDOMEN: Soft, nontender, nondistended, normoactive bowel sounds, no guarding, no rebound, no hepatosplenomegaly, no masses. EXTREMITIES: 2+ pulses, warm, well-perfused, no edema. NEUROLOGICAL: Cranial nerves II through XII grossly intact. Normal speech, gait not observed. PSYCH: Normal mood, normal affect. SKIN: Warm, dry, normal turgor, no rashes or lesions noted. LABS HOSPITAL COURSE: Date of Admission:06/02/16 Date of Discharge: 06/06/16 Discharge Summary Reason For Visit: POSITIVE PEROTINEAL FLUID Condition: Stable - Instructions Diet, Activity, Other Instructions: Please return to the ED for any new, persistent or worsening symptoms. Follow up with primary care doctor in 1 week. Take medications as directed on home medication list. Please return to the ED for any new, persistent, or worsening symptoms. Follow up with your PCP in 1 week [facility] is set up Resume home medication as directed on discharge list Changes: Stop Aspirin Decreased dose of xaralto 15mg daily Started on Aldactone 25mg BID Follow up with Digital Marketing Strategist in 1-2 weeks for continued management Follow up with wound Care Dr. Quispe on Wednesday 06/07 at1 1am Referrals: Moreno Castillo MD [Staff Physician] - Rosalia Miller MD [Staff Physician] - Jammie Mendez MD [Staff Physician] - Buzz Monet MD [Staff Physician] - Walt Hoffman MD [Staff Physician] - Disposition: HOME - Home Medications Comprehensive Discharge Medication List: Ambulatory Orders Albuterol 2.5/Ipratropium 0.5 [Duoneb -] 1 neb NEB Q4H 05/09/15 Allopurinol [Zyloprim -] 100 mg PO DAILY 05/09/15 Carvedilol [Coreg] 6.25 mg PO BID 05/09/15 Colchicine 0.6 mg PO DAILY 05/09/15 Fluoxetine HCl [Prozac] 40 mg PO HS 05/09/15 Liraglutide [Victoza -] 1.8 mg SQ DAILY@0700 05/09/15 Lisinopril [Zestril] 5 mg PO DAILY 05/09/15 Tamsulosin HCl [Flomax -] 0.4 mg PO DAILY 05/09/15 Trazodone HCl [Desyrel -] 50 mg PO BID 05/09/15 Sennosides/Docusate Sodium [Pericolace -] 1 tablet PO BID tablet 05/14/15 Atorvastatin Calcium 40 mg PO HS 05/09/16 Cholecalciferol (Vitamin D3) [Vitamin D -] 1,000 unit PO DAILY 05/09/16 Famotidine/Ca Carb/Mag Hydrox [Pepcid Complete Tablet Chew] 1 each PO DAILY Ferrous Sulfate 325 mg PO DAILY 05/09/16 Gabapentin 100 mg PO DAILY 05/09/16 Collagenase Clostridium Hist. [Santyl -] 1 applic TP DAILY #1 tube 06/02/16 Rivaroxaban [Xarelto -] 15 mg PO DAILY #30 tablet 06/02/16 Spironolactone [Aldactone -] 25 mg PO BID #60 tablet 06/02/16 Torsemide [Demadex -] 40 mg PO BID #120 tablet 06/02/16 Dexamethasone 4 mg PO DAILY #30 tablet 06/05/16 Insulin Glargine,Hum.rec.anlog [Lantus (nf)] 70 units SQ AM #1 vial 06/05/16 Insulin Regular, Human [Humulin R U-500 Kwikpen] 30 unit SQ TID #1 insuln.pen
--- NOTE | 2016-06-07 13:51 | PATH ---
Cytology Non-Gynecological Report Patient Name: KYLE MURO [facility]. Rec. #: [id number] /Age/Gender: 1955 (Age: 61) / M Account: [id number] Location: 4 W TELEMETRY U Taken: 06/05/2016 Received: 06/06/2016 Reported: 06/07/2016 Physicians: Tobias Fox M.D. Specimen(s) Received A: ABDOMINAL FLUID IN 50% ALCOHOL B: ABDOMINAL FLUID FRESH Clinical History Ascites Final Diagnosis A,B. ABDOMINAL FLUID, PARACENTESIS: SATISFACTORY FOR EVALUATION. NO MALIGNANT CELLS IDENTIFIED. REACTIVE MESOTHELIAL CELLS, HISTIOCYTES AND MIXED INFLAMMATORY CELLS. Electronically Signed Harjinder Figueroa M.D. Gross Description A. Received is a 50 cc of yellow fluid in 50% alcohol. One cytofunnel slide and one cell block are made. B. Received is 2000 cc of yellow fluid fresh. One cytofunnel slide and one cell block are made.
== END 2016-06-05 19:20 | disposition home or self-care (01) | DRG 264 ==
LOC: J4W 17:42 → UNDODISIN 06-05 18:54
PROVIDERS: ADMIT Internal Medicine; ATTEND Nurse Practitioner Acute Care
PROC: 0W9G3ZX Drainage of Peritoneal Cavity, Percutaneous Approach, Diagnostic (ICD-10-PCS; principal; 2016-06-05)
DX: R18.8 Other ascites (principal); R85.5 Abnormal microbiological findings in specimens from digestive organs and abdominal cavity; I25.10 Atherosclerotic heart disease of native coronary artery without angina pectoris; Z95.1 Presence of aortocoronary bypass graft; Z72.0 Tobacco use; J44.9 Chronic obstructive pulmonary disease, unspecified; Z99.81 Dependence on supplemental oxygen; Z95.810 Presence of automatic (implantable) cardiac defibrillator; I25.5 Ischemic cardiomyopathy; Z86.74 Personal history of sudden cardiac arrest; I25.2 Old myocardial infarction; L03.116 Cellulitis of left lower limb; L03.115 Cellulitis of right lower limb; I13.0 Hypertensive heart and chronic kidney disease with heart failure and stage 1 through stage 4 chronic kidney disease, or unspecified chronic kidney disease; E11.22 Type 2 diabetes mellitus with diabetic chronic kidney disease; N18.3 Chronic kidney disease, stage 3 (moderate); I50.23 Acute on chronic systolic (congestive) heart failure; Z79.4 Long term (current) use of insulin; N17.9 Acute kidney failure, unspecified; I48.92 Unspecified atrial flutter; Z79.01 Long term (current) use of anticoagulants; Z86.718 Personal history of other venous thrombosis and embolism; Z86.73 Personal history of transient ischemic attack (TIA), and cerebral infarction without residual deficits; K59.00 Constipation, unspecified; Z91.11 Patient's noncompliance with dietary regimen; E11.319 Type 2 diabetes mellitus with unspecified diabetic retinopathy without macular edema; E66.01 Morbid (severe) obesity due to excess calories; Z68.36 Body mass index [BMI] 36.0-36.9, adult; Z71.3 Dietary counseling and surveillance
CPT/HCPCS: 36415; 76942-TC; 80053; 82042; 82150; 82945; 83615; 84157; 84478; 85025; 85027; 85610; 85651; 86140; 87040; 87070; 87075; 87102; 87116; 87205; 87206; 87210; 88108; 88305-TC; 89051; 93306-TC; 94640

== ENCOUNTER 2016-06-24 05:29 | Inpatient (IN) | payer OTHER ==
--- NOTE | 2016-06-24 05:48 | PDOC ---
History of Present Illness - General Stated Complaint: LEFT ARM PAIN - CHILLS Time Seen by Provider: 06/24/16 05:41 History Source: Patient (and ) Exam Limitations: No Limitations - History of Present Illness Initial Comments: 06/24/16 05:54 Past medical history: 2017: Stage I lung cancer/left upper lobe DVT to the right lower leg Heart failure Acid reflux Anemia 2016: Gout Constipation: Need a PICC line to find a vein Respiratory edema Heart failure 15% 2015: Defibrillator battery replaced on October 13 Lymphedema 2014: Severe arthritis of the neck and shoulders Cellulitis [place] hearing loss 65% on the left and 75% on the right Anxiety Depression Arrhythmia 2012: Carpal tunnel 2009 patient had quadruple bypass with a defibrillator and pacemaker: Patient claims sudden for 7-10 minutes 2004:right rotator cuff injury 2010 COPD 1994: NIDDM Hypertension 1985 sciatica Hepatitis B Unknown year: TIA and [place], chickenpox and shingles 06/24/16 06:20 61-year-old male with past medical history of multiple medical conditions presents to the emergency department with his complaining of a possible foreign body to the left medial forearm. Patient states he injected himself with insulin 26 hours ago and believes the needle broke off. Patient did not check his syringe to see if the tip of the needle have broke off. Patient states he noticed increasing swelling, redness and pain to the left forearm 4 hours ago. Patient denies fever, chills, extremity numbness or tingling sensation, chest pain, shortness of breath, abdominal pains. 06/24/16 06:59 Signed out to LALI Aviles Timing/Duration: 24 hours Past History - Past Medical History Allergies/Adverse Reactions: Allergies Allergy/AdvReac Type Severity Reaction Status Date / Time Iodinated Contrast Media - Allergy Verified 05/26/16 14:58 Oral and [Iodinated Contrast Media - IV Dye] raw fruits/vegetables Allergy Intermediate Rash Uncoded 05/26/16 14:58 iv contrast dye Allergy Uncoded 05/26/16 14:58 Home Medications: Ambulatory Orders Acetaminophen with Codeine [Acetaminophen-Cod #3 Tablet] 1 each PO Q4HWA PRN Allopurinol [Zyloprim -] 100 mg PO DAILY 06/24/16 Aspirin [ASA -] 81 mg PO AM 06/24/16 Atorvastatin Calcium 40 mg PO HS 06/24/16 Carvedilol [Coreg -] 6.25 mg PO BID 06/24/16 Cholecalciferol (Vitamin D3) [Vitamin D -] 1,000 mg PO DAILY 06/24/16 Colchicine 0.6 mg PO DAILY 06/24/16 Famotidine/Ca Carb/Mag Hydrox [Pepcid Complete Tablet Chew] 1 each PO AM Fluoxetine HCl [Prozac] 40 mg PO HS 06/24/16 Insulin (Levemir) [Levemir Vial] 70 unit SQ AM 06/24/16 Insulin Regular, Human [Humulin R U-500 Kwikpen] 15 - 20 unit SQ AC 06/24/16 Ipratropium/Albuterol Sulfate [Iprat-Albut 0.5-3(2.5) mg/3 ml] 3 ml IH DAILY PRN 06/24/16 Liraglutide [Victoza -] 1.8 mg SQ DAILY@0700 06/24/16 Lorazepam 0.5 mg PO HS 06/24/16 Oxycodone HCl/Acetaminophen [Oxycodone-Acetaminophen 5-325] 1 each PO Q6H PRN Rivaroxaban [Xarelto -] 15 mg PO DAILY 06/24/16 Sennosides/Docusate Sodium [Senna Laxative Tablet] 8.6 mg PO HS 06/24/16 Tamsulosin HCl [Flomax -] 0.4 mg PO DAILY 06/24/16 Torsemide 200 mg PO DAILY 06/24/16 Trazodone HCl 50 mg PO HS 06/24/16 Clindamycin [Cleocin -] 452 mg PO TID #15 capsule 07/06/16 Rivaroxaban [Xarelto -] 15 mg PO DAILY tablet 07/06/16 Anemia: Yes Asthma: Yes Cancer: Yes (Left upper lung, stage 1) Cardiac Disorders: Yes (CAD,[place],CARDIOMYOPATHY,CARDIAC ARREST POST ICD) CVA: Yes COPD: Yes CHF: Yes Diabetes: Yes Disorders: Yes (STONES) HTN: Yes Hypercholesterolemia: Yes Liver Disease: Yes (Fatty Liver) Psychiatric Problems: Yes (anxiety/depression) - Surgical History Cardiac Surgery: Yes (quad bypass, ppm/defib) Orthopedic Surgery: Yes - Psycho/Social/Smoking Cessation Hx Anxiety: No Suicidal Ideation: No Smoking History: Former smoker Have you smoked in the past 12 months: Yes Number of Cigarettes Smoked Daily: 3 If you are a former smoker, when did you quit?: 2008 'Breaking Loose' booklet given: 06/02/16 Hx Alcohol Use: No Drug/Substance Use Hx: No Substance Use Type: None Hx Substance Use Treatment: No Review of Systems - Review of Systems Able to Perform ROS?: Yes Comments:: 06/24/16 06:22 CONSTITUTIONAL: Absent: fever, chills, diaphoresis, generalized weakness, malaise, loss of appetite HEENT: Absent: rhinorrhea, nasal congestion, throat pain, throat swelling, difficulty swallowing, mouth swelling, ear pain, eye pain, visual Changes CARDIOVASCULAR: Absent: chest pain, loss of consciousness, palpitations, irregular heart rate, peripheral edema RESPIRATORY: Absent: cough, shortness of breath, dyspnea with exertion, orthopnea, wheezing, stridor, hemoptysis GASTROINTESTINAL: Absent: abdominal pain, abdominal distension, nausea, vomiting, diarrhea, constipation, melena, hematochezia GENITOURINARY: Absent: dysuria, frequency, urgency, hesitancy, hematuria, flank pain, genital pain MUSCULOSKELETAL: Absent: myalgia, arthralgia, joint swelling SKIN: Left forearm swelling/pain Absent: rash, itching, pallor HEMATOLOGIC/IMMUNOLOGIC: Absent: easy bleeding, easy bruising, lymphadenopathy, frequent infections ENDOCRINE: Absent: unexplained weight gain, unexplained weight loss, heat intolerance, cold intolerance NEUROLOGIC: Absent: headache, focal weakness or paresthesias, dizziness, unsteady gait, seizure, mental status changes, bladder or bowel incontinence PSYCHIATRIC: Absent: anxiety, depression, suicidal or homicidal ideation, hallucinations. Is the patient limited Telugu proficient: No *Physical Exam - Physical Exam Comments: 06/24/16 06:23 GENERAL: Well developed, well nourished. Awake and alert. No acute distress. HEENT: Normocephalic, atraumatic. PERRLA, EOMI. No conjunctival pallor. Sclera are non- icteric. Moist mucous membranes. Oropharynx is clear. NECK: Supple. Full ROM. No JVD. Carotid pulses 2+ and symmetric, without bruits. No thyromegaly. No lymphadenopathy. CARDIOVASCULAR: Regular rate and rhythm. No murmurs, rubs, or gallops. Distal pulses are 2+ and symmetric. PULMONARY: No evidence of respiratory distress. Lungs clear to auscultation bilaterally. No wheezing, rales or rhonchi. ABDOMINAL: Soft. Non-tender. Non-distended. No rebound or guarding. No organomegaly. Normoactive bowel sounds. MUSCULOSKELETAL Normal range of motion at all joints. No bony deformities or tenderness. No CVA tenderness. EXTREMITIES: No cyanosis. No clubbing. No edema. No calf tenderness. SKIN: Left forearm: +swelling/erythema.warm to the touch.. Neg lymphangitis. Neg drainage Warm and dry. Normal capillary refill. No rashes. No jaundice. NEUROLOGICAL: Alert, awake, appropriate. Cranial nerves 2-12 intact. No deficits to light touch and temperature in face, upper extremities and lower extremities. No motor deficits in the in face, upper extremities and lower extremities. Normoreflexic in the upper and lower extremities. Normal speech. Toes are down- going bilaterally. Gait is normal without ataxia. PSYCHIATRIC: Cooperative. Good eye contact. Appropriate mood and affect. ED Treatment Course - LABORATORY CBC & Chemistry Diagram: 07/06/16 07:00 07/06/16 07:00 - RADIOLOGY Radiology Studies Ordered: Category Date Time Status FOREARM- LEFT [RAD] Stat Radiology 06/24/16 05:39 Ordered Medical Decision Making - Medical Decision Making 06/24/16 06:59 A/P: Left forearm Xray R/O FB= Neg obvious fb CBC/diff CMP/ PT/INR CXR EKG IV abx: Vancomycin and Unasyn Admit for cellulitis *DC/Admit/Observation/Transfer Diagnosis at time of Disposition: Cellulitis of arm Qualifiers: Laterality: left Qualified Code(s): L03.114 - Cellulitis of left upper limb - Discharge Dispostion Disposition: VNS/HOME HEALTH CARE Condition at time of disposition: Stable - Prescriptions
[2016-06-24] MEDS ORDERED: VANCOMYCIN 1,000 MG in DEXTROSE 5%-WATER - 250 ML IVPB ONE (06:14)
[2016-06-24] MEDS ORDERED: AMPICILLIN NA/SULBACTAM NA 3 GM in SODIUM CHLORIDE 100 ML IVPB ONE (06:15)
[2016-06-24] MEDS ORDERED: SODIUM CHLORIDE 1,000 ML IV SCH (06:30)
--- NOTE | 2016-06-24 07:03 | PDOC ---
*Physical Exam - Vital Signs Last Vital Signs Temp Pulse Resp BP Pulse Ox 98.3 F 84 18 136/83 96 06/24/16 05:46 06/24/16 05:46 06/24/16 05:46 06/24/16 05:46 06/24/16 05:46 ED Treatment Course - LABORATORY CBC & Chemistry Diagram: 06/24/16 07:10 06/24/16 09:34 Medical Decision Making - Medical Decision Making 06/24/16 07:02 Signout received from BEATRIZ Bernal. Briefly, this is a 61-year-old male with extensive medical history including insulin-dependent diabetes (full history detailed in prior note) who presented to the ED with ?foreign body (insulin needle) to the left forearm. Preliminary read of xray obtained here shows no foreign body and no gas, however extensive cellulitis is noted. Labs are pending. Antibiotics have been ordered. Admission is anticipated. 06/24/16 08:28 WBC is 11.9 with 87.6% neutrophis. Forearm xray interpreted by radiology: no foreign body appreciated. CXR shows congestive changes. 06/24/16 10:19 -Glucose 361; 10 units regular insulin sc ordered 06/24/16 10:47 -Cr is 2.0 which is baseline -Lactic acid is within normal limits at 1.4 *DC/Admit/Observation/Transfer Diagnosis at time of Disposition: Cellulitis of upper extremity Qualifiers: Laterality: left Qualified Code(s): L03.114 - Cellulitis of left upper limb - Discharge Dispostion Condition at time of disposition: Guarded Admit: Yes
[2016-06-24] MEDS ORDERED: VANCOMYCIN 1 GRAM (PRE-DOCKED) 250 ML IVPB ONE (07:34)
[2016-06-24 07:38] LABS: BASOPHIL 0.8 % (0-2.0); EOSINOPHIL 0.9 % (0-4.5); MCHC 32.4 g/dl (32.0-35.9); MEAN CELL VOLUME 92.4 fl (80-96); MEAN PLT VOLUME 10.2 fl (7.5-11.1); NEUTROPHILS 87.6 % (42.8-82.8); PLATELET COUNT 111 K/MM3 (134-434); RDW 19.3 % (11.9-15.9); WHITE BLOOD COUNT 11.9 K/mm3 (4.0-10.0)
[2016-06-24 08:15] LABS: INR 1.09 (0.82-1.09)
[2016-06-24] MEDS ORDERED: OXYCODONE/APAP 5/325MG COMBO TABLET PO ONE ×2 (09:45→15:40)
[2016-06-24 10:04] LABS: ALBUMIN 2.9 g/dl (3.4-5.0); CALCIUM 8.4 mg/dL (8.5-10.1); COCKROFT - GAULT 61.71
[2016-06-24 10:06] LABS: BILIRUBIN,TOTAL 1.7 mg/dL (0.2-1.0); TOT PROT 6.4 g/dl (6.4-8.2)
[2016-06-24] MEDS ORDERED: OXYCODONE/APAP 5/325MG COMBO TABLET ONE (10:08)
[2016-06-24] MEDS ORDERED: INSULIN REGULAR HUMAN 100 UNITS/ML *VIAL SQ ONE (10:19)
[2016-06-24] MEDS ORDERED: INSULIN REGULAR HUMAN 100 UNITS/ML *VIAL ONE (10:34)
[2016-06-24 13:11] VITALS: BMI 36.4
[2016-06-24] MEDS ORDERED: oxyCODONE HCL 5 MG TABLET PO ONE (15:45)
[2016-06-24] MEDS ORDERED: ACETAMINOPHEN 325 MG TABLET (FP) PO ONE (15:45)
--- NOTE | 2016-06-24 17:22 | HP ---
Addendum entered and electronically signed by Stacia Wharton RES 06/24/16 21:06 : Gout- Chronic -Continue Allopurinol 100mg daily -Continue Colchicine 0.6 mg daily for maintenance therapy BPH-Chronic -Continue FLomax 0.4mg daily Anxiety/Depression- Chronic -COntinue Trazodone 100mg -Continue Prozac 40mg Original Note: CHIEF COMPLAINT: left arm pain PCP: Omar Mckeon HISTORY OF PRESENT ILLNESS: Information obtained from patient and patient's at bedside Patient is a 61 year old male with a significant PMHx of IDDM, Systolic CHF s/p ICD and 4 vessel CABG who complains of left arm pain, swelling, and erythema that started yesterday morning after injecting himself with his daily insulin. Patient reports when he was injecting himself he thought the needle broke off and remained inside the skin. Patient's reports the pain was increasing throughout the day. Patient then states he was unable to flex his arm due to worsening pain associated with chills, which prompted this visit. Patient also reports having abdominal swelling but without any pain, tenderness, constipation or diarrhea. He mentioned receiving a parasentesis and records indicate having it done on his last visit on 05/29/16. Patient states he was told that if he noticed any abdominal swelling to call his doctor for another evaluation and paracentesis. Otherwise, patient denies fever, nausea, vomiting , abdominal pain, headaches, chest pain, change from his baseline breathing, palpitations, or cough. ER course was notable for: (1) Left arm x-ray (2) Unasyn and vancomycin (3) Chest x-ray Recent Travel: None PAST MEDICAL HISTORY: Systolic CHF, CAD s/p [place] w/ 4 vessel CABG, AICD, IDDM, COPD on home 02, CVA, CKD, DVT's, and Ascites secondary to End stage systolic congestive heart failure. PAST SURGICAL HISTORY: quadruple bypass with a defibrillator and pacemaker Social History: Smokin cigarettes per day Alcohol: Denies Drugs: Denies Family History: Unremarkable Allergies Iodinated Contrast Media - Oral and [Iodinated Contrast Media - IV Dye] Allergy (Verified 05/26/16 14:58) raw fruits/vegetables Allergy (Intermediate, Uncoded 05/26/16 14:58) Rash CARROTS RASH iv contrast dye Allergy (Uncoded 05/26/16 14:58) HOME MEDICATIONS: Home Medications Medication Instructions Recorded Acetaminophen with Codeine 1 each PO Q4HWA PRN 06/24/16 [Acetaminophen-Cod #3 Tablet] Allopurinol [Zyloprim -] 100 mg PO DAILY 06/24/16 Aspirin [ASA -] 81 mg PO AM 06/24/16 Atorvastatin Calcium 40 mg PO HS 06/24/16 Carvedilol [Coreg -] 6.25 mg PO BID 06/24/16 Cholecalciferol (Vitamin D3) 1,000 mg PO DAILY 06/24/16 [Vitamin D3 -] Colchicine 0.6 mg PO DAILY 06/24/16 Famotidine/Ca Carb/Mag Hydrox 1 each PO AM 06/24/16 [Pepcid Complete Tablet Chew] Fluoxetine HCl [Prozac] 40 mg PO HS 06/24/16 Insulin (Levemir) [Levemir Vial] 70 unit SQ AM 06/24/16 Insulin Regular, Human [Humulin R 15 - 20 unit SQ AC 06/24/16 U-500 Kwikpen] Ipratropium/Albuterol Sulfate 3 ml IH DAILY PRN 06/24/16 [Iprat-Albut 0.5-3(2.5) mg/3 ml] Liraglutide [Victoza -] 1.8 mg SQ DAILY@0700 06/24/16 Lorazepam 0.5 mg PO HS 06/24/16 Oxycodone HCl/Acetaminophen 1 each PO Q6H PRN 06/24/16 [Oxycodone-Acetaminophen 5-325] Rivaroxaban [Xarelto -] 15 mg PO DAILY 06/24/16 Sennosides/Docusate Sodium [Senna 8.6 mg PO HS 06/24/16 Laxative Tablet] Tamsulosin HCl [Flomax] 0.4 mg PO DAILY 06/24/16 Torsemide 200 mg PO DAILY 06/24/16 Trazodone HCl 50 mg PO HS 06/24/16 REVIEW OF SYSTEMS CONSTITUTIONAL: chills Absent: fever, diaphoresis, generalized weakness, malaise, loss of appetite, weight change HEENT: Absent: rhinorrhea, nasal congestion, throat pain, throat swelling, difficulty swallowing, mouth swelling, ear pain, eye pain, visual changes CARDIOVASCULAR: Absent: chest pain, syncope, palpitations, irregular heart rate, lightheadedness , peripheral edema RESPIRATORY: Absent: cough, shortness of breath, dyspnea with exertion, orthopnea, wheezing, stridor, hemoptysis GASTROINTESTINAL: abdominal distension Absent: abdominal pain, nausea, vomiting, diarrhea, constipation, melena, hematochezia GENITOURINARY: Absent: dysuria, frequency, urgency, hesitancy, hematuria, flank pain, genital pain MUSCULOSKELETAL: Absent: myalgia, arthralgia, joint swelling, back pain, neck pain SKIN: Erythema, swelling and induration of left forearm Absent: itching, pallor HEMATOLOGIC/IMMUNOLOGIC: Absent: easy bleeding, easy bruising, lymphadenopathy, frequent infections ENDOCRINE: Absent: unexplained weight gain, unexplained weight loss, heat intolerance, cold intolerance NEUROLOGIC: Absent: headache, focal weakness or paresthesias, dizziness, unsteady gait, seizure, mental status changes, bladder or bowel incontinence PSYCHIATRIC: Absent: anxiety, depression, suicidal or homicidal ideation, hallucinations. PHYSICAL EXAMINATION Vital Signs - 24 hr 06/24/16 06/24/16 06/24/16 11:56 12:22 14:27 Temperature 98.8 F 98.8 F Pulse Rate 66 Pulse Rate [ 80 Apical] Respiratory 18 20 20 Rate Blood Pressure 102/61 Blood Pressure 93/51 [Left Arm] O2 Sat by Pulse 96 100 100 Oximetry (%) 06/24/16 14:44 Temperature 97.8 F Pulse Rate 62 Pulse Rate [ Apical] Respiratory 16 Rate Blood Pressure 109/60 Blood Pressure [Left Arm] O2 Sat by Pulse Oximetry (%) GENERAL: Awake, alert, and fully oriented, in no acute distress. HEAD: Normal with no signs of trauma. EYES: Sclera anicteric, conjunctiva clear. No lid lag. EARS, NOSE, THROAT: Oropharynx clear without exudates. Moist mucous membranes. NECK: Normal range of motion, supple without lymphadenopathy. LUNGS: Distant breath sounds throughout lung bases bilaterally. No accessory muscle use. HEART: Decreased heart sounds and decreased S1 and S2 without murmur, rub or gallop due to patients body habitus. ABDOMEN: Obese Soft, distended, nontender, no guarding, no rebound, no masses. MUSCULOSKELETAL: No CVA tenderness. UPPER EXTREMITIES: No peripheral edema. LOWER EXTREMITIES: Uniboot dressing in bilateral lower extremities from the ankles to below the knee with 1+ pitting edema of bilateral feet and knees. NEUROLOGICAL: Normal speech. PSYCHIATRIC: Cooperative. Good eye contact. Appropriate mood and affect. SKIN: Indurated left forearm with pain and tenderness, swelling, and erythema. No drainage or lymphangitis. Unable to flex his forearm past 45 degrees. Abnormal Lab Results 06/24/16 06/24/16 07:10 09:34 WBC 11.9 H D RDW 19.3 H Plt Count 111 L Neutrophils % 87.6 H Lymphocytes % 4.7 L D Sodium 132 L Chloride 96 L BUN 65 H D Creatinine 2.0 H Random Glucose 361 H* D Calcium 8.4 L Total Bilirubin 1.7 H D ALT 139 H D Alkaline Phosphatase 218 H Albumin 2.9 L Images: X-ray of left forearm: No sign of foreign body or soft tissue injury . No fractures, subluxation, or bone destruction. Chest X-ray: Cardiomegaly. Bilateral congestive changes with left pacemaker and sternal sutures and clips ASSESSMENT/PLAN: Patient is a 61 year old male with a PMHx of Systolic CHF, CAD s/p [place] w/ 4 vessel CABG, AICD, Paroxysmal A.flutter, IDDM, COPD on home 02, CKD, and Ascites secondary to End stage systolic congestive heart failure who presented for left forearm pain, tenderness, swelling, and erythema. Patient admitted for Cellulitis of the left forearm. Cellulitis of left forearm- Acute -Induation, swelling, pain, and erythema -X-ray of left forearm negative -Given Unasyn gm and Vancomycin 1000mg in the ED -Blood cultures sent -Resumed Unasyn 3gm Q8H -Vanc trough ordered for the morning. If Vanc trough <15, continue renal dose of vancomycin 1500mg Q24H. If vanc trough >15, wait another 24 hours before next dose of vancomycin. -U/S of left forearm ordered to rule out abscess Ascites secondary to end stage systolic CHF- Chronic -U/S of abdomen ordered to rule out ascites status and if therapeutic paracentesis is needed Chronic severe LV systolic CHF with ischemic cardiomyopathy- Chronic -Continue Torsemide 100mg -Continue Coreg 6.25mg BID -Continue ASA 81mg daily -Continue Atorvastatin 40mg daily -Last TTE (12/07/15) revealed severe LV systolic dysfunction with global hypokinesia, mild MR, mild to moderate TR. moderate pulmonary HTN HTN- Chronic -Continue Coreg 6.25mg daily -Continue to monitor BP Paroxysmal atrial flutter- Chronic - Continue Xarelto 15mg (dosed for renal function) CAD s/p 4 vessel CABG, hx of cardiac arrest- Chronic - Continue ASA 81mg - Continue Lipitor 40mg COPD on home 02- Chronic -Continue 2L 02 -Continue Ipratropium/Albuterol IDDM type II- Chronic - Levemir 70u sq am - BGM ACHS CKD- Chronic -Baseline Creatinine 2.0 -Daily BMP -Continue to monitor F/E/N -On no fluids -Electrolytes wnl -Diabetic/Sodium controlled diet Prophylaxis -Xarelto 15mg for DVT Disposition -U/S of left forearm and abdominal u/s pending. Will likely stay overnight. Visit type - Emergency Visit Emergency Visit: Yes ED Registration Date: 06/24/16 Care time: The patient presented to the Emergency Department on the above date and was hospitalized for further evaluation of their emergent condition. - New Patient This patient is new to me today: Yes Date on this admission: 06/24/16 - Critical Care Critical Care patient: No
[2016-06-24] MEDS ORDERED: ACETAMINOPHEN 325 MG TABLET (FP) PO PRN (17:44)
[2016-06-24] MEDS ORDERED: OXYCODONE/APAP 5/325MG COMBO TABLET PO PRN (17:53)
[2016-06-24] MEDS ORDERED: CHOLECALCIFEROL (VITAMIN D3) 400 UNIT TABLET (FP) PO SCH (18:00)
[2016-06-24] MEDS ORDERED: oxyCODONE HCL 5 MG TABLET PO PRN (18:21)
--- NOTE | 2016-06-24 18:50 | PN ---
Teaching Attending Note Name of Resident: Stacia Wharton ATTENDING PHYSICIAN STATEMENT I saw and evaluated the patient. I reviewed the resident's note and discussed the case with the resident. I agree with the resident's findings and plan as documented. SUBJECTIVE: Patient with hx of multiple medical problems, DM on insulin, was injecting his insulin in his left volar forearm yesterday. Afterward noted redness, swelling and pain. No fever, came to ED. OBJECTIVE: L ulnar forearm with induration, tenderness, no fluctuance, positive erythema. Normal xray of the forearm with no needle or foreign body. WBC elevated. Glucose elevated. ASSESSMENT AND PLAN: Continue meds for copd, chf, dvt, gout. Treat with unasyn and vancomycin for left forearm cellulitis. Vancomycin to be by level given creatinine clearance. Will check am level and then redose as needed. Get sono of left forearm to assess for possible abscess, but feels indurated and abscess unlikely given clinical exam. Patient is complaining of abdominal swelling, will get abd sono to reassess the current status of his ascites and chronic heart failure. Problem List - Problems (1) Cellulitis of arm Code(s): L03.119 - CELLULITIS OF UNSPECIFIED PART OF LIMB Qualifiers: Laterality: left Qualified Code(s): L03.114 - Cellulitis of left upper limb
[2016-06-24] MEDS ORDERED: AMPICILLIN NA/SULBACTAM NA 3 GM in SODIUM CHLORIDE 100 ML IVPB SCH (19:00)
[2016-06-24] MEDS ORDERED: NEOMYCIN/BACI/POLY/HC TOPICAL OINT 15 GM TUBE TP ONE (20:33)
[2016-06-24] MEDS ORDERED: INSULIN (NOVOLOG) ASPART 100 UNITS/ML 10ML VIAL ONE (21:56)
[2016-06-24] MEDS ORDERED: INSULIN DETEMIR 100 UNITS/ML MDV SQ SCH (22:00)
[2016-06-24] MEDS: COLCHICINE 0.6 MG TABLET (FP) PO SCH (22:03)
[2016-06-24] MEDS: RIVAROXABAN 15 MG TABLET PO SCH (22:04)
[2016-06-24] MEDS: ALLOPURINOL 100 MG TABLET (FP) PO SCH (22:04)
[2016-06-24] MEDS: CARVEDILOL 6.25 MG TABLET (FP) PO SCH (22:05)
[2016-06-24] MEDS: traZODone HCL 50 MG TABLET (FP) PO SCH (22:06)
[2016-06-24] MEDS: TORSEMIDE 20 MG TABLET (FP) PO SCH (22:06)
[2016-06-24] MEDS: INSULIN SLIDING SCALE (NOVOLOG) 1 VIAL SQ SCH (22:06)
[2016-06-24] MEDS: ATORVASTATIN CA 40 MG TABLET (FP) PO SCH (22:06)
[2016-06-24] MEDS: FLUoxetine HCL 20 MG CAPSULE (FP) PO SCH (22:06)
[2016-06-25] MEDS ORDERED: AMPICILLIN NA/SULBACTAM NA 3 GM in SODIUM CHLORIDE 100 ML IVPB ONE (02:00)
[2016-06-25] MEDS: oxyCODONE HCL 5 MG TABLET PO PRN ×3 (04:11→18:35)
[2016-06-25] MEDS: ACETAMINOPHEN 325 MG TABLET (FP) PO PRN ×3 (04:12→18:36)
[2016-06-25] MEDS: ASPIRIN 81 MG CHEWABLE TABLETS PO SCH (06:32)
[2016-06-25] MEDS: INSULIN SLIDING SCALE (NOVOLOG) 1 VIAL SQ SCH ×3 (06:32→11:49)
[2016-06-25] MEDS ORDERED: INSULIN DETEMIR 100 UNITS/ML MDV SQ SCH ×2 (07:00→22:00)
[2016-06-25 07:14] LABS: BASOPHIL 0.2 % (0-2.0); EOSINOPHIL 1.3 % (0-4.5); MCH 30.9 pg (25.7-33.7); MCHC 33.7 g/dl (32.0-35.9); MEAN CELL VOLUME 91.6 fl (80-96); MEAN PLT VOLUME 9.1 fl (7.5-11.1); NEUTROPHILS 87.7 % (42.8-82.8); PLATELET COUNT 89 K/MM3 (134-434); RDW 18.9 % (11.9-15.9)
[2016-06-25 07:40] LABS: ALBUMIN 2.7 g/dl (3.4-5.0); BILIRUBIN,TOTAL 1.8 mg/dL (0.2-1.0); CALCIUM 8.2 mg/dL (8.5-10.1); COCKROFT - GAULT 64.83; CREATININE 1.9 mg/dL (0.7-1.3)
[2016-06-25 07:41] LABS: TOT PROT 6.1 g/dl (6.4-8.2)
--- NOTE | 2016-06-25 09:44 | PN ---
Physical Exam: SUBJECTIVE: Patient seen and examined OBJECTIVE: Patient complains of pain in his left arm. Vital Signs Period Temp Pulse Resp BP Sys/Mcconnell Pulse Ox Last 24 Hr 97.8 F-98.9 F 62-87 16-20 93-124/51-76 96-100 GENERAL: The patient is awake, alert, and fully oriented, in no acute distress. LUNGS: Breath sounds equal, clear to auscultation bilaterally, no wheezes, no crackles, no accessory muscle use. HEART: Regular rate and rhythm, S1, S2 without murmur, rub or gallop. ABDOMEN: Obese, soft, nontender, distended, normoactive bowel sounds, no guarding, no rebound. EXTREMITIES: Left forearm erythematous and swollen. 1+ edema, unna boots on both legs. Laboratory Results - last 24 hr 06/24/16 06/24/16 06/25/16 18:14 22:00 05:45 WBC RBC Hgb Hct MCV MCHC RDW Plt Count MPV Neutrophils % Lymphocytes % Monocytes % Eosinophils % Basophils % Sodium Potassium Chloride Carbon Dioxide Anion Gap BUN Creatinine Creat Clearance w eGFR POC Glucometer 220 333 277 Random Glucose Calcium Total Bilirubin AST ALT Alkaline Phosphatase Total Protein Albumin 06/25/16 06/25/16 06:00 06:00 WBC 11.0 H RBC 3.86 L Hgb 11.9 D Hct 35.3 L D MCV 91.6 MCHC 33.7 RDW 18.9 H Plt Count 89 L MPV 9.1 D Neutrophils % 87.7 H Lymphocytes % 4.1 L Monocytes % 6.7 Eosinophils % 1.3 Basophils % 0.2 Sodium 134 L Potassium 4.9 Chloride 97 L Carbon Dioxide 26 Anion Gap 11 BUN 64 H Creatinine 1.9 H Creat Clearance w eGFR 36.22 POC Glucometer Random Glucose 299 H Calcium 8.2 L Total Bilirubin 1.8 H AST 35 ALT 128 H Alkaline Phosphatase 217 H Total Protein 6.1 L Albumin 2.7 L Active Medications Generic Name Dose Route Start Last Admin Trade Name Freq PRN Reason Stop Dose Admin Acetaminophen 325 mg 06/24/16 18:21 06/25/16 04:12 Tylenol - PO 06/27/16 18:20 325 mg Q4H PRN Administration PAIN Albuterol/Ipratropium 1 amp 06/24/16 17:53 Duoneb - NEB DAILY PRN ASTHMA Allopurinol 100 mg 06/24/16 18:00 06/24/16 22:04 Zyloprim - PO 100 mg DAILY MAGEN Administration Aspirin 81 mg 06/25/16 07:00 06/25/16 06:32 Asa - PO 81 mg AM MAGEN Administration Atorvastatin Calcium 40 mg 06/24/16 22:00 06/24/16 22:06 Lipitor - PO 40 mg HS MAGEN Administration Carvedilol 6.25 mg 06/24/16 22:00 06/24/16 22:05 Coreg - PO 6.25 mg BID MAGEN Administration Cholecalciferol 1,000 unit 06/24/16 19:30 Vitamin D3 - PO DAILY MAGEN Colchicine 0.6 mg 06/24/16 18:00 06/24/16 22:03 Colcrys - PO 0.6 mg DAILY MAGEN Administration Fluoxetine HCl 40 mg 06/24/16 22:00 06/24/16 22:06 Prozac - PO 40 mg HS MAGEN Administration Ampicillin Sodium/Sulbactam 100 mls @ 200 mls/hr 06/25/16 02:00 Sodium 3 gm/ Sodium Chloride IVPB Q8H-IV MAGEN Insulin Aspart 1 vial 06/24/16 22:00 06/25/16 06:32 Novolog Vial Sliding Scale - SQ Not Given ACHS [facility] Protocol Insulin Detemir 70 units 06/25/16 07:00 06/25/16 06:32 Levemir Vial SQ 70 units AM MAGEN Administration Oxycodone HCl 5 mg 06/24/16 18:22 06/25/16 04:11 Roxicodone - PO 5 mg Q6H PRN Administration PAIN Rivaroxaban 15 mg 06/24/16 18:00 06/24/16 22:04 Xarelto - PO 15 mg DAILY MAGEN Administration Tamsulosin HCl 0.4 mg 06/25/16 10:00 Flomax - PO DAILY MAGEN Torsemide 40 mg 06/24/16 22:00 06/24/16 22:06 Demadex - PO 40 mg BID MAGEN Administration Trazodone HCl 100 mg 06/24/16 22:00 06/24/16 22:06 Desyrel - PO 100 mg HS MAGEN Administration ASSESSMENT/PLAN: This is a 61-year-old man with a history of chronic systolic heart failure, CAD , [place], 4 vessel CABG, ischemic cardiomyopathy, AICD, PSVT, type 2 DM, COPD, chronic hypoxic respiratory failure, stage 3 CKD, ascites who presented to the ER with left forearm pain, swelling, and erythema. 1. Left forearm cellulitis in a patient with uncontrolled diabetes - Patient reports symptoms started around insulin injection site on his forearm - On Unasyn and Vancomycin - ID consult 2. Ischemic cardiomyopathy with chronic systolic heart failure - Continue Coreg, Demadex, oxygen - Has AICD - No evidence of ascites on abd US 3. CAD, history of [place], CABG, cardiac arrest, AICD - Continue aspirin, Coreg, Lipitor 4. HTN -Continue Coreg, Demadex 5. History of PSVT, possible paroxysmal atrial flutter - Continue Coreg, Xarelto 6. Chronic hypoxic respiratory failure - Continue oxygen 7. COPD - Stable - Continue oxygen, DuoNeb as needed 8. Type 2 DM, uncontrolled - Continue Levemir, Novolog sliding scale - Change Novolog to Humulin R u500 if patient able to bring in his own 9. Stage 3 CKD - Stable 10. Depression and anxiety - Continue Prozac, Trazodone 11. History of CVA - Continue aspirin, Lipitor 12. History of gout - Continue Allopurinol, Colchicine Visit type - Emergency Visit Emergency Visit: Yes ED Registration Date: 06/24/16 Care time: The patient presented to the Emergency Department on the above date and was hospitalized for further evaluation of their emergent condition. - New Patient This patient is new to me today: Yes Date on this admission: 06/25/16 - Critical Care Critical Care patient: No - Discharge Referral Referred to [facility] Med P.C.: No
[2016-06-25] MEDS ORDERED: TORSEMIDE 100 MG TABLET PO SCH (10:00)
[2016-06-25] MEDS ORDERED: PT OWN MED DRAWER 7, Y5N ONE ×2 (10:53→21:10)
[2016-06-25] MEDS: TORSEMIDE 20 MG TABLET (FP) PO SCH ×2 (10:56→21:57)
[2016-06-25] MEDS: TAMSULOSIN HCL 0.4 MG CAP.ER.24H (FP) PO SCH (10:56)
[2016-06-25] MEDS: ALLOPURINOL 100 MG TABLET (FP) PO SCH (10:56)
[2016-06-25] MEDS: CARVEDILOL 6.25 MG TABLET (FP) PO SCH ×2 (10:56→21:57)
[2016-06-25] MEDS: COLCHICINE 0.6 MG TABLET (FP) PO SCH (10:56)
[2016-06-25] MEDS: CHOLECALCIFEROL (VITAMIN D3) 1,000 UNIT TABLET (FP) PO SCH (10:56)
[2016-06-25] MEDS: RIVAROXABAN 15 MG TABLET PO SCH (10:57)
[2016-06-25] MEDS ORDERED: INSULIN (NOVOLOG) ASPART 100 UNITS/ML 10ML VIAL ONE (11:46)
[2016-06-25] MEDS ORDERED: VANCOMYCIN 1 GRAM (PRE-DOCKED) 250 ML IVPB ONE (13:01)
[2016-06-25] MEDS: AMPICILLIN NA/SULBACTAM NA 3 GM in SODIUM CHLORIDE 100 ML IVPB SCH ×2 (13:03→13:04)
--- NOTE | 2016-06-25 13:04 | PN ---
Progress Note (short form) - Note Progress Note: ID Consult dictated Cellulitis L UE Diabetes mellitus CKD Empiric unasyn/ vancomycin, adjusted for renal failure Elevation
--- NOTE | 2016-06-25 14:13 | CONSULT ---
Consult Consult Specialty:: endocrine Referred by:: dr.shireen lorenzo Reason for Consultation:: iddm uncontrolled - History of Present Illness Chief Complaint: high sugars History of Present Illness: 61 year old male with a significant PMHx of IDDM, Systolic CHF s/p ICD and 4 vessel CABG who complains of left arm pain, swelling, and erythema that started yesterday morning after injecting himself with his daily insulin. Patient reports when he was injecting himself he thought the needle broke off and remained inside the skin. Patient's reports the pain was increasing throughout the day. 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 ef 15%), HTN, Other ( Ischemic cardiomyopathy) Pulmonary: Yes: Cancer (undocumented cell type), COPD Gastrointestinal: Yes: Ascites Hepatobiliary: Yes: Other Renal/: Yes: Renal Inusuff Infectious Disease: Yes: Other (Chronic lower extremity bilateral cellulitis ) Endocrine: Yes: Diabetes Mellitus - Past Surgical History Past Surgical History: Yes: AICD, CABG - Alcohol/Substance Use Hx Alcohol Use: No History of Substance Use: reports: None - Smoking History Smoking history: Former smoker Have you smoked in the past 12 months: Yes Aproximately how many cigarettes per day: 3 If you are a former smoker, when did you quit?: 2008 - Social History Usual Living Arrangement: With Spouse ADL: Independent 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 History of Recent Travel: No Home Medications - Allergies Allergies/Adverse Reactions: Allergies Allergy/AdvReac Type Severity Reaction Status Date / Time Iodinated Contrast Media - Allergy Verified 05/26/16 14:58 Oral and [Iodinated Contrast Media - IV Dye] raw fruits/vegetables Allergy Intermediate Rash Uncoded 05/26/16 14:58 iv contrast dye Allergy Uncoded 05/26/16 14:58 - Home Medications Home Medications: Ambulatory Orders Acetaminophen with Codeine [Acetaminophen-Cod #3 Tablet] 1 each PO Q4HWA PRN Allopurinol [Zyloprim -] 100 mg PO DAILY 06/24/16 Aspirin [ASA -] 81 mg PO AM 06/24/16 Atorvastatin Calcium 40 mg PO HS 06/24/16 Carvedilol [Coreg -] 6.25 mg PO BID 06/24/16 Cholecalciferol (Vitamin D3) [Vitamin D3 -] 1,000 mg PO DAILY 06/24/16 Colchicine 0.6 mg PO DAILY 06/24/16 Famotidine/Ca Carb/Mag Hydrox [Pepcid Complete Tablet Chew] 1 each PO AM Fluoxetine HCl [Prozac] 40 mg PO HS 06/24/16 Insulin (Levemir) [Levemir Vial] 70 unit SQ AM 06/24/16 Insulin Regular, Human [Humulin R U-500 Kwikpen] 15 - 20 unit SQ AC 06/24/16 Ipratropium/Albuterol Sulfate [Iprat-Albut 0.5-3(2.5) mg/3 ml] 3 ml IH DAILY PRN 06/24/16 Liraglutide [Victoza -] 1.8 mg SQ DAILY@0700 06/24/16 Lorazepam 0.5 mg PO HS 06/24/16 Oxycodone HCl/Acetaminophen [Oxycodone-Acetaminophen 5-325] 1 each PO Q6H PRN Rivaroxaban [Xarelto -] 15 mg PO DAILY 06/24/16 Sennosides/Docusate Sodium [Senna Laxative Tablet] 8.6 mg PO HS 06/24/16 Tamsulosin HCl [Flomax] 0.4 mg PO DAILY 06/24/16 Torsemide 200 mg PO DAILY 06/24/16 Trazodone HCl 50 mg PO HS 06/24/16 Family Disease History - Family Disease History Family Disease History: Other: Father, Mother, Brother, Sister Review of Systems - Review of Systems Constitutional: reports: Fever, Weakness Eyes: reports: No Symptoms HENT: reports: No Symptoms Neck: reports: No Symptoms Cardiovascular: reports: Shortness of Breath Respiratory: reports: Exercise Intolerance, Orthopnea, SOB, SOB on Exertion Gastrointestinal: reports: Bloating Genitourinary: reports: No Symptoms Breasts: reports: No Symptoms Reported Musculoskeletal: reports: Joint Swelling, Muscle Pain, Muscle Cramps, Muscle Weakness Integumentary: reports: No Symptoms Neurological: reports: Numbness, Parasthesia, Unsteady Gait, Weakness Endocrine: reports: Excessive Sweating, Increased Hunger, Unexplained Weight Gain Hematology/Lymphatic: reports: Easily Bruised Psychiatric: reports: Altered Sleep Pattern Physical Exam Vital Signs: Vital Signs Temperature 98.2 F 06/25/16 06:00 Pulse Rate 80 06/25/16 06:00 Respiratory Rate 20 06/25/16 06:00 Blood Pressure 116/76 06/25/16 06:00 O2 Sat by Pulse Oximetry (%) 98 06/24/16 21:00 Constitutional: Yes: Anxious Eyes: Yes: EOM Intact HENT: Yes: Normocephalic Neck: Yes: Trachea Midline Cardiovascular: Yes: Regular Rate and Rhythm Respiratory: Yes: CTA Bilaterally, Rales, SOB, SOB on Exertion, Tachypnea Gastrointestinal: Yes: Normal Bowel Sounds, Abdomen, Obese ...Rectal Exam: Yes: Deferred Renal/: Yes: WNL Breast(s): Yes: WNL Musculoskeletal: Yes: Back Pain, Joint Swelling, Muscle Pain, Muscle Weakness Edema: Yes Edema: LLE: 2+, RLE: 2+ Integumentary: Yes: Venous Stasis Changes Wound/Incision: Yes: Well Approximated Neurological: Yes: Alert, Oriented, Numbness, Weakness Labs: CBC, BMP 06/25/16 06:00 06/25/16 06:00 Problem List - Problems (1) Diabetes mellitus, insulin dependent (IDDM), uncontrolled Code(s): E10.65 - TYPE 1 DIABETES MELLITUS WITH HYPERGLYCEMIA Qualifiers: Diabetes mellitus complication detail: with polyneuropathy Assessment/Plan Current Active Problems Cellulitis of arm (Acute) iddm uncontrolled polyneuropathy cri ckd retinopathy chf cad hyperlipidemia lung mass htn Abnormal Lab Results 06/25/16 06/25/16 06:00 06:00 WBC 11.0 H RBC 3.86 L Hct 35.3 L D RDW 18.9 H Plt Count 89 L Neutrophils % 87.7 H Lymphocytes % 4.1 L Sodium 134 L Chloride 97 L BUN 64 H Creatinine 1.9 H Random Glucose 299 H Calcium 8.2 L Total Bilirubin 1.8 H ALT 128 H Alkaline Phosphatase 217 H Total Protein 6.1 L Albumin 2.7 L Laboratory Results - last 24 hr 06/24/16 06/24/16 06/25/16 18:14 22:00 05:45 WBC RBC Hgb Hct MCV MCHC RDW Plt Count MPV Neutrophils % Lymphocytes % Monocytes % Eosinophils % Basophils % Sodium Potassium Chloride Carbon Dioxide Anion Gap BUN Creatinine Creat Clearance w eGFR POC Glucometer 220 333 277 Random Glucose Calcium Total Bilirubin AST ALT Alkaline Phosphatase Total Protein Albumin 06/25/16 06/25/16 06/25/16 06:00 06:00 11:40 WBC 11.0 H RBC 3.86 L Hgb 11.9 D Hct 35.3 L D MCV 91.6 MCHC 33.7 RDW 18.9 H Plt Count 89 L MPV 9.1 D Neutrophils % 87.7 H Lymphocytes % 4.1 L Monocytes % 6.7 Eosinophils % 1.3 Basophils % 0.2 Sodium 134 L Potassium 4.9 Chloride 97 L Carbon Dioxide 26 Anion Gap 11 BUN 64 H Creatinine 1.9 H Creat Clearance w eGFR 36.22 POC Glucometer 355 Random Glucose 299 H Calcium 8.2 L Total Bilirubin 1.8 H AST 35 ALT 128 H Alkaline Phosphatase 217 H Total Protein 6.1 L Albumin 2.7 L plan: bgm using r u 500 scale patient using his own insulin pen which he has from home advised to change needle every injection levemir 70 units daily
[2016-06-25] MEDS ORDERED: AMPICILLIN NA/SULBACTAM NA 1.5 GM VIAL ONE ×2 (15:42→21:08)
[2016-06-25] MEDS ORDERED: SODIUM CHLORIDE 100 ML IVPB ONE ×2 (15:44→21:09)
[2016-06-25] MEDS: AMPICILLIN NA/SULBACTAM NA 100 ML IVPB SCH ×2 (16:02→21:57)
[2016-06-25] MEDS: ATORVASTATIN CA 40 MG TABLET (FP) PO SCH (21:56)
[2016-06-25] MEDS: FLUoxetine HCL 20 MG CAPSULE (FP) PO SCH (21:57)
[2016-06-25] MEDS: traZODone HCL 50 MG TABLET (FP) PO SCH (21:57)
[2016-06-25] MEDS: BASAGLAR INSULIN SQ SCH (22:35)
[2016-06-26] MEDS ORDERED: SODIUM CHLORIDE 100 ML IVPB ONE ×3 (01:51→21:28)
[2016-06-26] MEDS ORDERED: AMPICILLIN NA/SULBACTAM NA 1.5 GM VIAL ONE ×3 (01:51→21:27)
[2016-06-26] MEDS: oxyCODONE HCL 5 MG TABLET PO PRN ×2 (02:37→15:08)
[2016-06-26] MEDS: AMPICILLIN NA/SULBACTAM NA 100 ML IVPB SCH ×4 (05:22→21:45)
[2016-06-26] MEDS: HUMULIN R U INSULIN SQ SCH ×5 (06:48→22:46)
[2016-06-26] MEDS: BASAGLAR INSULIN SQ SCH ×3 (07:10→22:46)
[2016-06-26] MEDS: ASPIRIN 81 MG CHEWABLE TABLETS PO SCH (07:10)
[2016-06-26 08:13] LABS: BASOPHIL 0.5 % (0-2.0); EOSINOPHIL 1.8 % (0-4.5); MCH 30.7 pg (25.7-33.7); MCHC 33.4 g/dl (32.0-35.9); MEAN PLT VOLUME 9.8 fl (7.5-11.1); NEUTROPHILS 85.8 % (42.8-82.8); PLATELET COUNT 106 K/MM3 (134-434); RDW 18.5 % (11.9-15.9); WHITE BLOOD COUNT 9.6 K/mm3 (4.0-10.0)
[2016-06-26 08:41] LABS: ALBUMIN 2.7 g/dl (3.4-5.0); CALCIUM 8.8 mg/dL (8.5-10.1)
--- NOTE | 2016-06-26 08:41 | PN ---
Progress Note, Physician Chief Complaint: ID Vancomycin and Unasyn - Current Medication List Current Medications: Active Medications Acetaminophen (Tylenol -) 325 mg PO Q4H PRN PRN Reason: PAIN Stop: 06/27/16 18:20 Last Admin: 06/25/16 18:36 Dose: 325 mg Albuterol/Ipratropium (Duoneb -) 1 amp NEB DAILY PRN PRN Reason: ASTHMA Allopurinol (Zyloprim -) 100 mg PO DAILY [facility] Last Admin: 06/25/16 10:56 Dose: 100 mg Aspirin (Asa -) 81 mg PO AM [facility] Last Admin: 06/26/16 07:10 Dose: Not Given Atorvastatin Calcium (Lipitor -) 40 mg PO HS [facility] Last Admin: 06/25/16 21:56 Dose: 40 mg Carvedilol (Coreg -) 6.25 mg PO BID [facility] Last Admin: 06/25/16 21:57 Dose: 6.25 mg Cholecalciferol (Vitamin D3 -) 1,000 unit PO DAILY [facility] Last Admin: 06/25/16 10:56 Dose: 1,000 unit Colchicine (Colcrys -) 0.6 mg PO DAILY [facility] Last Admin: 06/25/16 10:56 Dose: 0.6 mg Fluoxetine HCl (Prozac -) 40 mg PO HS [facility] Last Admin: 06/25/16 21:57 Dose: 40 mg Ampicillin Sodium/Sulbactam Sodium (Unasyn 1.5 Gm (Pre-Docked)) 100 mls @ 200 mls/hr IVPB Q6H-IV [facility] Last Admin: 06/26/16 05:22 Dose: Not Given Humulin R U-500 Insulin - Patient Own Med 1 each SQ ACHS [facility] PRN Reason: Protocol Last Admin: 06/26/16 07:10 Dose: Not Given Basaglar Insulin Pen (- Patient Own Med) 30 each SQ HS [facility] Last Admin: 06/25/16 22:35 Dose: 30 each Basaglar Insulin Pen (- Patient Own Med) 70 each SQ AM [facility] Last Admin: 06/26/16 07:10 Dose: Not Given Oxycodone HCl (Roxicodone -) 5 mg PO Q6H PRN PRN Reason: PAIN Last Admin: 06/26/16 02:37 Dose: 5 mg Rivaroxaban (Xarelto -) 15 mg PO DAILY [facility] Last Admin: 06/25/16 10:57 Dose: 15 mg Tamsulosin HCl (Flomax -) 0.4 mg PO DAILY [facility] Last Admin: 06/25/16 10:56 Dose: 0.4 mg Torsemide (Demadex -) 40 mg PO BID [facility] Last Admin: 06/25/16 21:57 Dose: 40 mg Trazodone HCl (Desyrel -) 100 mg PO HS [facility] Last Admin: 06/25/16 21:57 Dose: 100 mg - Objective Vital Signs: Vital Signs Temperature 98.1 F 06/26/16 06:00 Pulse Rate 69 06/26/16 06:00 Respiratory Rate 18 06/26/16 06:00 Blood Pressure 114/61 06/26/16 06:00 O2 Sat by Pulse Oximetry (%) 98 06/25/16 21:00 Constitutional: Yes: Well Nourished, No Distress Cardiovascular: Yes: S1, S2 Respiratory: Yes: WNL, Regular, CTA Bilaterally Gastrointestinal: Yes: Soft. No: Tenderness Extremities: Yes: Other (Diffuse left arm swelling very tender no abscess aeas of erythema) Labs: CBC, BMP 06/26/16 06:30 INR, PTT INR 1.09 (0.82-1.09) 06/24/16 07:10 Assessment/Plan Laboratory Tests 06/25/16 06/25/16 06/26/16 06:00 06:00 06:30 WBC 11.0 H Hgb 11.9 D Plt Count 89 L BUN 64 H Creatinine 1.9 H Random Vancomycin Pending Assessment Cellulitis of the left arm/ Lung CA Plan Continue antibiotic per Dr Love CRP Would rule out DVT with duplex Vanc ronal Hernandez MD
[2016-06-26 08:47] LABS: BILIRUBIN,TOTAL 1.6 mg/dL (0.2-1.0); COCKROFT - GAULT 68.43; CREATININE 1.8 mg/dL (0.7-1.3); TOT PROT 6.5 g/dl (6.4-8.2)
[2016-06-26] MEDS ORDERED: PT OWN MED DRAWER 7, Y5N ONE ×4 (10:24→21:28)
[2016-06-26] MEDS: CHOLECALCIFEROL (VITAMIN D3) 1,000 UNIT TABLET (FP) PO SCH (10:29)
[2016-06-26] MEDS: TORSEMIDE 20 MG TABLET (FP) PO SCH ×2 (10:29→22:47)
[2016-06-26] MEDS: COLCHICINE 0.6 MG TABLET (FP) PO SCH (10:29)
[2016-06-26] MEDS: TAMSULOSIN HCL 0.4 MG CAP.ER.24H (FP) PO SCH (10:29)
[2016-06-26] MEDS: RIVAROXABAN 15 MG TABLET PO SCH (10:30)
[2016-06-26] MEDS: CARVEDILOL 6.25 MG TABLET (FP) PO SCH ×2 (10:30→22:47)
[2016-06-26] MEDS: ALLOPURINOL 100 MG TABLET (FP) PO SCH (10:30)
--- NOTE | 2016-06-26 12:49 | EKG ---
Test Reason : Blood Pressure : / mmHG Vent. Rate : 077 BPM Atrial Rate : 077 BPM P-R Int : 196 ms QRS Dur : 144 ms QT Int : 388 ms P-R-T Axes : 020 163 057 degrees QTc Int : 439 ms NORMAL SINUS RHYTHM POSSIBLE LEFT ATRIAL ENLARGEMENT RIGHT BUNDLE BRANCH BLOCK ANTEROSEPTAL INFARCT (CITED ON OR BEFORE 07-DEC-2015) ABNORMAL ECG WHEN COMPARED WITH ECG OF 26-MAY-2016 21:39, VENT. RATE HAS DECREASED BY 81 BPM T WAVE VARIATION Confirmed by SHANNAN WEEMS MD ([id number]) on 06/26/2016 12:49:13 PM Referred By: Confirmed By:SHANNAN WEEMS MD
--- NOTE | 2016-06-26 14:33 | PN ---
Teaching Attending Note Name of Resident: Stacia Wharton ATTENDING PHYSICIAN STATEMENT I saw and evaluated the patient. I reviewed the resident's note and discussed the case with the resident. I agree with the resident's findings and plan as documented. SUBJECTIVE: Patient complains of left arm pain. OBJECTIVE: Vital Signs Period Temp Pulse Resp BP Sys/Mcconnell Pulse Ox Last 24 Hr 98.1 F-99 F 62-83 18-20 98-132/51-61 96-98 GENERAL: The patient is awake, alert, and fully oriented, in no acute distress. LUNGS: Breath sounds equal, clear to auscultation bilaterally, no wheezes, no crackles, no accessory muscle use. HEART: Regular rate and rhythm, S1, S2 without murmur, rub or gallop. ABDOMEN: Obese, soft, nontender, distended, normoactive bowel sounds, no guarding, no rebound. EXTREMITIES: Left forearm erythematous and swollen. 1+ edema, unna boots on both legs. ASSESSMENT AND PLAN: This is a 61-year-old man with a history of chronic systolic heart failure, CAD , [place], 4 vessel CABG, ischemic cardiomyopathy, AICD, PSVT, type 2 DM, COPD, chronic hypoxic respiratory failure, stage 3 CKD, ascites who presented to the ER with left forearm pain, swelling, and erythema. 1. Left forearm cellulitis in a patient with uncontrolled diabetes - Afebrile, WBC improved - Continue Unasyn, Vancomycin - No evidence of DVT on doppler 2. Ischemic cardiomyopathy with chronic systolic heart failure - Continue Coreg, Demadex, oxygen - Has AICD - No evidence of ascites on abdomen US 3. CAD, history of [place], CABG, cardiac arrest, AICD - Continue aspirin, Coreg, Lipitor 4. HTN -Continue Coreg, Demadex 5. History of PSVT, possible paroxysmal atrial flutter - Continue Coreg, Xarelto 6. Chronic hypoxic respiratory failure - Continue oxygen 7. COPD - Stable - Continue oxygen, DuoNeb as needed 8. Type 2 DM, uncontrolled - Continue Levemir (substituted for Basaglar), Humulin R u500 (patient using own) 9. Stage 3 CKD - Stable (at baseline creatinine 1.8) 10. Depression and anxiety - Continue Prozac, Trazodone 11. History of CVA - Continue aspirin, Lipitor 12. History of gout - Continue Allopurinol, Colchicine 13. Hyponatremia, mild - Likely secondary to Demadex, hyperglycemia - Stable
[2016-06-26] MEDS: ACETAMINOPHEN 325 MG TABLET (FP) PO PRN (15:07)
[2016-06-26 15:38] LABS: URINE APPEARANCE CLEAR; URINE BILIRUBIN NEGATIVE (NEGATIVE); URINE BLOOD NEGATIVE (NEGATIVE); URINE COLOR LTYELLOW; URINE GLUCOSE (UA) 1+ (NEGATIVE); URINE KETONE NEGATIVE (NEGATIVE); URINE LEUK ESTERASE NEGATIVE (NEGATIVE); URINE NITRITE NEGATIVE (NEGATIVE); URINE PROTEIN NEGATIVE (NEGATIVE); URINE UROBILINOGEN NEGATIVE E.U./dl (0.2-1.0)
--- NOTE | 2016-06-26 16:03 | PN ---
Physical Exam: SUBJECTIVE: Patient seen and examined by me at bedside. No overnight events noted. Patien takes Humalin and Basaglar and we do not carry Humalin and Basaglar in the hospital and therefore taking his own insulin approved by endocrinology. However, patient is refusing to follow the sliding scale ordered by the paster operator. Patient continues to inject with his own dosages and continues to refuse our recommendation and treatment. Discussed in length on the risks and harms of injecting his own dosages without doctor approval, but continues to refuse our insulin recommendation and care. Otherwise, Patient still complains of pain in his left arm and unable to fully flex it. Spoke to his and she reports patient not acting his normal self the last few weeks and that he is starting to shake his hand when writing. Patient's also states that his psychiatrist recently stopped his Lorazepam and increased his Trazadone. However, he is suppose to return because the psychiatrist wants to give him "another medication". Otherwise, He denies fever , chills, nausea, vomiting, shortness of breath, chest pain, palpitations. OBJECTIVE: Vital Signs Period Temp Pulse Resp BP Sys/Mcconnell Pulse Ox Last 24 Hr 98.1 F-99 F 62-83 18-20 98-132/52-61 96-98 GENERAL: Awake, alert, and fully oriented, in no acute distress. LUNGS: Distant breath sounds throughout lung bases bilaterally. No accessory muscle use. HEART: Decreased heart sounds and decreased S1 and S2 without murmur, rub or gallop due to patients body habitus. ABDOMEN: Obese Soft, distended, nontender, no guarding, no rebound, no masses. LOWER EXTREMITIES: Uniboot dressing in bilateral lower extremities from the ankles to below the knee with 1+ pitting edema of bilateral feet and knees. NEUROLOGICAL: Normal speech. PSYCHIATRIC: Frustrated and somewhat agitated SKIN: Indurated left forearm with pain and tenderness, swelling, and erythema. No drainage or lymphangitis. Unable to flex his forearm past 45 degrees. Laboratory Results - last 24 hr 06/25/16 06/25/16 06/26/16 17:07 21:54 06:30 WBC RBC Hgb Hct MCV MCHC RDW Plt Count MPV Neutrophils % Lymphocytes % Monocytes % Eosinophils % Basophils % Sodium 132 L Potassium 4.4 Chloride 93 L Carbon Dioxide 25 Anion Gap 14 BUN 53 H Creatinine 1.8 H Creat Clearance w eGFR 38.55 POC Glucometer 331 392 Random Glucose 310 H* Calcium 8.8 Total Bilirubin 1.6 H AST 29 ALT 113 H Alkaline Phosphatase 270 H D C-Reactive Protein 17.0 H D Total Protein 6.5 Albumin 2.7 L Urine Color Urine Appearance Urine pH Urine Protein Urine Glucose (UA) Urine Ketones Urine Blood Urine Nitrite Urine Bilirubin Urine Urobilinogen Ur Leukocyte Esterase Random Vancomycin 9.169 06/26/16 06/26/16 06/26/16 06:30 06:30 07:02 WBC 9.6 RBC 3.80 L Hgb 11.7 Hct 35.0 L MCV 92.0 MCHC 33.4 RDW 18.5 H Plt Count 106 L MPV 9.8 Neutrophils % 85.8 H Lymphocytes % 4.7 L Monocytes % 7.2 Eosinophils % 1.8 Basophils % 0.5 Sodium Potassium Chloride Carbon Dioxide Anion Gap BUN Creatinine Creat Clearance w eGFR POC Glucometer 332 Random Glucose Calcium Total Bilirubin AST ALT Alkaline Phosphatase C-Reactive Protein Cancelled Total Protein Albumin Urine Color Urine Appearance Urine pH Urine Protein Urine Glucose (UA) Urine Ketones Urine Blood Urine Nitrite Urine Bilirubin Urine Urobilinogen Ur Leukocyte Esterase Random Vancomycin 06/26/16 06/26/16 11:51 15:00 WBC RBC Hgb Hct MCV MCHC RDW Plt Count MPV Neutrophils % Lymphocytes % Monocytes % Eosinophils % Basophils % Sodium Potassium Chloride Carbon Dioxide Anion Gap BUN Creatinine Creat Clearance w eGFR POC Glucometer 286 Random Glucose Calcium Total Bilirubin AST ALT Alkaline Phosphatase C-Reactive Protein Total Protein Albumin Urine Color Ltyellow Urine Appearance Clear Urine pH 5.0 Urine Protein Negative Urine Glucose (UA) 1+ H Urine Ketones Negative Urine Blood Negative Urine Nitrite Negative Urine Bilirubin Negative Urine Urobilinogen Negative Ur Leukocyte Esterase Negative Random Vancomycin Active Medications Generic Name Dose Route Start Last Admin Trade Name Freq PRN Reason Stop Dose Admin Acetaminophen 325 mg 06/24/16 18:21 06/26/16 15:07 Tylenol - PO 06/27/16 18:20 325 mg Q4H PRN Administration PAIN Albuterol/Ipratropium 1 amp 06/24/16 17:53 Duoneb - NEB DAILY PRN ASTHMA Allopurinol 100 mg 06/24/16 18:00 06/26/16 10:30 Zyloprim - PO 100 mg DAILY [facility] Administration Aspirin 81 mg 06/25/16 07:00 06/26/16 07:10 Asa - PO Not Given AM [facility] Atorvastatin Calcium 40 mg 06/24/16 22:00 06/25/16 21:56 Lipitor - PO 40 mg HS [facility] Administration Carvedilol 6.25 mg 06/24/16 22:00 06/26/16 10:30 Coreg - PO 6.25 mg BID [facility] Administration Cholecalciferol 1,000 unit 06/24/16 19:30 06/26/16 10:29 Vitamin D3 - PO 1,000 unit DAILY [facility] Administration Colchicine 0.6 mg 06/24/16 18:00 06/26/16 10:29 Colcrys - PO 0.6 mg DAILY [facility] Administration Fluoxetine HCl 40 mg 06/24/16 22:00 06/25/16 21:57 Prozac - PO 40 mg HS [facility] Administration Ampicillin Sodium/Sulbactam Sodium 100 mls @ 200 mls/hr 06/25/16 15:00 10:29 Unasyn 1.5 Gm (Pre-Docked) IVPB 200 mls/hr Q6H-IV [facility] Administration Humulin R U-500 1 each 06/25/16 22:00 06/26/16 12:20 Insulin - Patient SQ Not Given Own Med ACHS [facility] Protocol Basaglar Insulin Pen 30 each 06/25/16 22:00 06/25/16 22:35 - Patient Own Med SQ 30 each HS [facility] Administration Basaglar Insulin Pen 70 each 06/25/16 21:55 06/26/16 08:47 - Patient Own Med SQ 70 each AM [facility] Administration Oxycodone HCl 5 mg 06/24/16 18:22 06/26/16 15:08 Roxicodone - PO 5 mg Q6H PRN Administration PAIN Rivaroxaban 15 mg 06/24/16 18:00 06/26/16 10:30 Xarelto - PO 15 mg DAILY [facility] Administration Tamsulosin HCl 0.4 mg 06/25/16 10:00 06/26/16 10:29 Flomax - PO 0.4 mg DAILY [facility] Administration Torsemide 40 mg 06/24/16 22:00 06/26/16 10:29 Demadex - PO 40 mg BID [facility] Administration Trazodone HCl 100 mg 06/24/16 22:00 06/25/16 21:57 Desyrel - PO 100 mg HS [facility] Administration IMAGES: X-ray of left forearm (06/24/16): No sign of foreign body or soft tissue injury . No fractures, subluxation, or bone destruction. Chest X-ray(06/24/16): Cardiomegaly. Bilateral congestive changes with left pacemaker and sternal sutures and clips Duplex of Left Upper Extremity (06/26/16): Negative for DVT ASSESSMENT/PLAN: Patient is a 61 year old male with a PMHx of Systolic CHF, CAD s/p [place] w/ 4 vessel CABG, AICD, Paroxysmal A.flutter, IDDM, COPD on home 02, CKD, and Ascites secondary to End stage systolic congestive heart failure who presented for left forearm pain, tenderness, swelling, and erythema. Patient admitted for Cellulitis of the left forearm. Cellulitis of left forearm- Acute -Continue Unasyn 1.5 gm Q8H and Vancomycin -Blood cultures NGTD -Vanc Trough pending Ascites secondary to end stage systolic CHF- Chronic -U/S of abdomen ordered to rule out ascites was negative -Continue to monitor CMP Chronic severe LV systolic CHF with ischemic cardiomyopathy- Chronic -Continue Torsemide 100mg -Continue Coreg 6.25mg BID -Continue ASA 81mg daily -Continue Atorvastatin 40mg daily -Last TTE (12/07/15) revealed severe LV systolic dysfunction with global hypokinesia, mild MR, mild to moderate TR. moderate pulmonary HTN HTN- Chronic -Continue Coreg 6.25mg daily -Continue to monitor BP Paroxysmal atrial flutter- Chronic - Continue Xarelto 15mg (dosed for renal function) -cONTINU cOREG 6.25mg CAD s/p 4 vessel CABG, hx of cardiac arrest- Chronic - Continue ASA 81mg - Continue Lipitor 40mg COPD on home 02 with history of Stage 1 Lung cancer- Chronic -Continue 2L 02 -Continue Ipratropium/Albuterol IDDM type II- Chronic -BGM -Patient refusing our ISS and any insulin from the hospital as he wants to only inject his Humalin and Basaglar prescription. Patient is refusing to follow the paster operator's recommendations. Explained in full detail the harm of self injecting his own dosages. CKD- Chronic -Baseline Creatinine 2.0 -TODAY 1.8 -Daily BMP -Continue to monitor Gout- Chronic -Continue Allopurinol 100mg daily -Continue Colchicine 0.6 mg daily for maintenance therapy BPH-Chronic -Continue FLomax 0.4mg daily Anxiety/Depression- Chronic -COntinue Trazodone 100mg -Continue Prozac 40mg -Will place psych consult F/E/N -On no fluids -Electrolytes wnl -Diabetic/Sodium controlled diet Prophylaxis -Xarelto 15mg for DVT Disposition -Duplex of left forearm revealed no DVT. Continues to have left forearm swelling and erythema. Visit type - Emergency Visit Emergency Visit: Yes ED Registration Date: 06/24/16 Care time: The patient presented to the Emergency Department on the above date and was hospitalized for further evaluation of their emergent condition. - New Patient This patient is new to me today: No - Critical Care Critical Care patient: No
[2016-06-26] MEDS: ATORVASTATIN CA 40 MG TABLET (FP) PO SCH (22:47)
[2016-06-26] MEDS: traZODone HCL 50 MG TABLET (FP) PO SCH (22:47)
[2016-06-26] MEDS: FLUoxetine HCL 20 MG CAPSULE (FP) PO SCH (22:47)
--- NOTE | 2016-06-26 23:21 | HOSP ---
Physical Examination Vital Signs: Vital Signs Temperature 99.0 F 06/26/16 17:25 Pulse Rate 81 06/26/16 22:35 Respiratory Rate 18 06/26/16 22:35 Blood Pressure 127/58 06/26/16 22:35 O2 Sat by Pulse Oximetry (%) 96 06/26/16 09:00 Constitutional: Yes: Calm HENT: Yes: Atraumatic, Normocephalic Cardiovascular: Yes: Regular Rate and Rhythm, S1, S2 Respiratory: Yes: Regular, CTA Bilaterally Gastrointestinal: Yes: Normal Bowel Sounds, Soft, Abdomen, Obese Musculoskeletal: Yes: WNL Extremities: Yes: Other (left upper extremity swelling) Edema: Yes Edema: LUE: 3+, LLE: 1+, RLE: 1+ Peripheral Pulses: Left Radial: 1+, Right Radial: 2+ Integumentary: Yes: Bruising Neurological: Yes: Alert, Oriented, Cran Nerves II-XII Intact, Unsteady Gait ...Motor Strength: WNL Psychiatric: Yes: Alert, Oriented Labs: CBC, BMP 06/26/16 06:30 06/26/16 06:30 Hospitalist Encounter Assessment: Was called to assess a 61 year old male on aspirin and Xarelto who was found sitting on the floor by the nursing staff. The patient has a history of Systolic CHF, CAD s/p [place] w/ 4 vessel CABG, AICD, Paroxysmal Atrial flutter, Diabeted, COPD on home 02, CKD, and Ascites secondary to CHF who is admitted for acute left arm cellulitis. The patient is aaox3, no s/s of acute distress. Pt stated he was walking from the bathroom to the chair and his leg gave out and slipped and sat on the floor. He denies any head, neck or back trauma. Pt denies any pain, no vertigo, no lightheadedness, no chest pain, palpitation, no sob, no fever or chills, n/v, no confusion. Pt has no new bruises from the fall , no scalp or spine tenderness. Left upper extremities swollen and mildly erythematous. Impression Mechanical fall unwitnessed Plan Fall precaution OOB with assist only Fall protocol initiated Bleeding precaution Visit type - Emergency Visit Emergency Visit: Yes ED Registration Date: 06/24/16 Care time: The patient presented to the Emergency Department on the above date and was hospitalized for further evaluation of their emergent condition. - New Patient This patient is new to me today: Yes Date on this admission: 06/26/16 - Critical Care Critical Care patient: No
[2016-06-27] MEDS ORDERED: SODIUM CHLORIDE 100 ML IVPB ONE ×4 (02:10→21:04)
[2016-06-27] MEDS ORDERED: AMPICILLIN NA/SULBACTAM NA 1.5 GM VIAL ONE ×4 (02:10→21:03)
[2016-06-27] MEDS: AMPICILLIN NA/SULBACTAM NA 100 ML IVPB SCH ×4 (02:53→21:42)
[2016-06-27] MEDS: ASPIRIN 81 MG CHEWABLE TABLETS PO SCH (06:22)
[2016-06-27] MEDS: HUMULIN R U INSULIN SQ SCH ×4 (06:25→21:47)
[2016-06-27] MEDS: BASAGLAR INSULIN SQ SCH ×2 (06:25→21:47)
[2016-06-27] MEDS ORDERED: PT OWN MED DRAWER 7, Y5N ONE ×6 (08:10→21:04)
[2016-06-27 08:25] LABS: ALBUMIN 2.7 g/dl (3.4-5.0); CALCIUM 8.6 mg/dL (8.5-10.1); COCKROFT - GAULT 64.83; CREATININE 1.9 mg/dL (0.7-1.3)
[2016-06-27 08:28] LABS: BILIRUBIN,TOTAL 1.3 mg/dL (0.2-1.0); TOT PROT 6.6 g/dl (6.4-8.2)
[2016-06-27] MEDS: ALLOPURINOL 100 MG TABLET (FP) PO SCH (10:10)
[2016-06-27] MEDS: COLCHICINE 0.6 MG TABLET (FP) PO SCH (10:10)
[2016-06-27] MEDS: CHOLECALCIFEROL (VITAMIN D3) 1,000 UNIT TABLET (FP) PO SCH (10:10)
[2016-06-27] MEDS: RIVAROXABAN 15 MG TABLET PO SCH (10:10)
[2016-06-27] MEDS: TAMSULOSIN HCL 0.4 MG CAP.ER.24H (FP) PO SCH (10:10)
[2016-06-27] MEDS: CARVEDILOL 6.25 MG TABLET (FP) PO SCH ×2 (10:11→21:46)
[2016-06-27] MEDS: TORSEMIDE 20 MG TABLET (FP) PO SCH ×2 (10:11→21:46)
[2016-06-27] MEDS: ACETAMINOPHEN 325 MG TABLET (FP) PO PRN ×2 (11:56→17:26)
[2016-06-27] MEDS: oxyCODONE HCL 5 MG TABLET PO PRN ×2 (11:57→17:27)
[2016-06-27] MEDS ORDERED: VANCOMYCIN 1 GRAM (PRE-DOCKED) 250 ML IVPB ONE (13:49)
--- NOTE | 2016-06-27 13:55 | PN ---
Progress Note, Physician History of Present Illness: OOB in chair Reports less L UE pain Low grade temp WBC improved Doppler negative for DVT - Current Medication List Current Medications: Active Medications Acetaminophen (Tylenol -) 325 mg PO Q4H PRN PRN Reason: PAIN Stop: 06/27/16 18:20 Last Admin: 06/27/16 11:56 Dose: 325 mg Albuterol/Ipratropium (Duoneb -) 1 amp NEB DAILY PRN PRN Reason: ASTHMA Allopurinol (Zyloprim -) 100 mg PO DAILY [facility] Last Admin: 06/27/16 10:10 Dose: 100 mg Aspirin (Asa -) 81 mg PO AM [facility] Last Admin: 06/27/16 06:22 Dose: 81 mg Atorvastatin Calcium (Lipitor -) 40 mg PO HS [facility] Last Admin: 06/26/16 22:47 Dose: 40 mg Carvedilol (Coreg -) 6.25 mg PO BID [facility] Last Admin: 06/27/16 10:11 Dose: 6.25 mg Cholecalciferol (Vitamin D3 -) 1,000 unit PO DAILY [facility] Last Admin: 06/27/16 10:10 Dose: 1,000 unit Colchicine (Colcrys -) 0.6 mg PO DAILY [facility] Last Admin: 06/27/16 10:10 Dose: 0.6 mg Fluoxetine HCl (Prozac -) 40 mg PO HS [facility] Last Admin: 06/26/16 22:47 Dose: 40 mg Ampicillin Sodium/Sulbactam Sodium (Unasyn 1.5 Gm (Pre-Docked)) 100 mls @ 200 mls/hr IVPB Q6H-IV [facility] Last Admin: 06/27/16 10:10 Dose: 200 mls/hr Vancomycin HCl 1,000 mg/ (Dextrose) 250 mls @ 200 mls/hr IVPB ONCE ONE Stop: 06/27/16 15:03 Humulin R U-500 Insulin - Patient Own Med 1 each SQ ACHS [facility] PRN Reason: Protocol Last Admin: 06/27/16 06:25 Dose: Not Given Basaglar Insulin Pen (- Patient Own Med) 30 each SQ HS [facility] Last Admin: 06/26/16 22:46 Dose: Not Given Basaglar Insulin Pen (- Patient Own Med) 70 each SQ AM [facility] Last Admin: 06/27/16 06:25 Dose: Not Given Oxycodone HCl (Roxicodone -) 5 mg PO Q6H PRN PRN Reason: PAIN Last Admin: 06/27/16 11:57 Dose: 5 mg Rivaroxaban (Xarelto -) 15 mg PO DAILY [facility] Last Admin: 06/27/16 10:10 Dose: 15 mg Tamsulosin HCl (Flomax -) 0.4 mg PO DAILY [facility] Last Admin: 06/27/16 10:10 Dose: 0.4 mg Torsemide (Demadex -) 40 mg PO BID [facility] Last Admin: 06/27/16 10:11 Dose: 40 mg Trazodone HCl (Desyrel -) 100 mg PO HS [facility] Last Admin: 06/26/16 22:47 Dose: 100 mg - Objective Vital Signs: Vital Signs Temperature 100 F H 06/27/16 10:25 Pulse Rate 79 06/27/16 10:25 Respiratory Rate 18 06/27/16 10:25 Blood Pressure 144/59 06/27/16 10:25 O2 Sat by Pulse Oximetry (%) 96 06/26/16 21:00 Constitutional: Yes: No Distress Eyes: Yes: Conjunctiva Clear Cardiovascular: Yes: Regular Rate and Rhythm, S1, S2 Respiratory: Yes: CTA Bilaterally Gastrointestinal: Yes: Normal Bowel Sounds, Soft, Abdomen, Obese Extremities: Yes: Other (decreased L UE swelling and erythema forearm novelty twister tender) Labs: CBC, BMP 06/26/16 06:30 06/27/16 06:20 INR, PTT INR 1.09 (0.82-1.09) 06/24/16 07:10 Assessment/Plan L UE cellulitis Diabetes mellitus CKD Continue unasyn Redose vancomycin
--- NOTE | 2016-06-27 15:42 | PN ---
Physical Exam: SUBJECTIVE: Patient seen and examined by me at bedside. Overnight events noted. Patient found to be hypoglycemic because he continues to inject himself with his own dosage of insulin. This morning I spoke to patient and he continues to argue that he knows what he is doing. Spoke once again to him in depth about the risks and harm of self injecting insulin without the proper sliding scale and protocol. Eventually the insulin was taken from him. Patient reports his left forearm is better since yesterday in terms of pain. Otherwise, patient denies fever, chills, nausea, vomiting, chest pain, palpitations. OBJECTIVE: Vital Signs Period Temp Pulse Resp BP Sys/Mcconnell Pulse Ox Last 24 Hr 98.6 F-100 F 62-83 18-20 103-144/50-62 96 GENERAL: Awake, alert, and fully oriented, in no acute distress. LUNGS: Distant breath sounds throughout lung bases bilaterally. No accessory muscle use. HEART: Decreased heart sounds and decreased S1 and S2 without murmur, rub or gallop due to patients body habitus. ABDOMEN: Obese Soft, distended, nontender, no guarding, no rebound, no masses. LOWER EXTREMITIES: Uniboot dressing in bilateral lower extremities from the ankles to below the knee with 1+ pitting edema of bilateral feet and knees. PSYCHIATRIC: Frustrated and somewhat agitated SKIN: Indurated left forearm with pain and tenderness, swelling, and erythema. Mild purulent drainage and no lymphangitis. Able to flex past 45 degrees. Laboratory Results - last 24 hr 06/26/16 06/26/16 06/26/16 15:00 16:39 22:44 Sodium Potassium Chloride Carbon Dioxide Anion Gap BUN Creatinine Creat Clearance w eGFR POC Glucometer 246 68 Random Glucose Calcium Total Bilirubin AST ALT Alkaline Phosphatase Total Protein Albumin Urine Color Ltyellow Urine Appearance Clear Urine pH 5.0 Ur Specific Vega <= 1.005 Urine Protein Negative Urine Glucose (UA) 1+ H Urine Ketones Negative Urine Blood Negative Urine Nitrite Negative Urine Bilirubin Negative Urine Urobilinogen Negative Ur Leukocyte Esterase Negative 06/27/16 06/27/16 06/27/16 02:04 02:54 06:20 Sodium 136 Potassium 4.2 Chloride 97 L Carbon Dioxide 27 Anion Gap 12 BUN 57 H Creatinine 1.9 H Creat Clearance w eGFR 36.22 POC Glucometer 45 79 Random Glucose 52 L D Calcium 8.6 Total Bilirubin 1.3 H AST 95 H D ALT 150 H D Alkaline Phosphatase 468 H D Total Protein 6.6 Albumin 2.7 L Urine Color Urine Appearance Urine pH Ur Specific Vega Urine Protein Urine Glucose (UA) Urine Ketones Urine Blood Urine Nitrite Urine Bilirubin Urine Urobilinogen Ur Leukocyte Esterase 06/27/16 06/27/16 06:24 12:07 Sodium Potassium Chloride Carbon Dioxide Anion Gap BUN Creatinine Creat Clearance w eGFR POC Glucometer 52 135 Random Glucose Calcium Total Bilirubin AST ALT Alkaline Phosphatase Total Protein Albumin Urine Color Urine Appearance Urine pH Ur Specific Vega Urine Protein Urine Glucose (UA) Urine Ketones Urine Blood Urine Nitrite Urine Bilirubin Urine Urobilinogen Ur Leukocyte Esterase Active Medications Generic Name Dose Route Start Last Admin Trade Name Freq PRN Reason Stop Dose Admin Acetaminophen 325 mg 06/24/16 18:21 06/27/16 11:56 Tylenol - PO 06/27/16 18:20 325 mg Q4H PRN Administration PAIN Albuterol/Ipratropium 1 amp 06/24/16 17:53 Duoneb - NEB DAILY PRN ASTHMA Allopurinol 100 mg 06/24/16 18:00 06/27/16 10:10 Zyloprim - PO 100 mg DAILY [facility] Administration Aspirin 81 mg 06/25/16 07:00 06/27/16 06:22 Asa - PO 81 mg AM [facility] Administration Atorvastatin Calcium 40 mg 06/24/16 22:00 06/26/16 22:47 Lipitor - PO 40 mg HS [facility] Administration Carvedilol 6.25 mg 06/24/16 22:00 06/27/16 10:11 Coreg - PO 6.25 mg BID [facility] Administration Cholecalciferol 1,000 unit 06/24/16 19:30 06/27/16 10:10 Vitamin D3 - PO 1,000 unit DAILY [facility] Administration Colchicine 0.6 mg 06/24/16 18:00 06/27/16 10:10 Colcrys - PO 0.6 mg DAILY [facility] Administration Fluoxetine HCl 40 mg 06/24/16 22:00 06/26/16 22:47 Prozac - PO 40 mg HS [facility] Administration Ampicillin Sodium/Sulbactam Sodium 100 mls @ 200 mls/hr 06/25/16 15:00 10:10 Unasyn 1.5 Gm (Pre-Docked) IVPB 200 mls/hr Q6H-IV [facility] Administration Humulin R U-500 1 each 06/25/16 22:00 06/27/16 14:13 Insulin - Patient SQ Not Given Own Med ACHS [facility] Protocol Basaglar Insulin Pen 30 each 06/25/16 22:00 06/26/16 22:46 - Patient Own Med SQ Not Given HS [facility] Basaglar Insulin Pen 70 each 06/25/16 21:55 06/27/16 06:25 - Patient Own Med SQ Not Given AM [facility] Oxycodone HCl 5 mg 06/24/16 18:22 06/27/16 11:57 Roxicodone - PO 5 mg Q6H PRN Administration PAIN Rivaroxaban 15 mg 06/24/16 18:00 06/27/16 10:10 Xarelto - PO 15 mg DAILY [facility] Administration Tamsulosin HCl 0.4 mg 06/25/16 10:00 06/27/16 10:10 Flomax - PO 0.4 mg DAILY [facility] Administration Torsemide 40 mg 06/24/16 22:00 06/27/16 10:11 Demadex - PO 40 mg BID [facility] Administration Trazodone HCl 100 mg 06/24/16 22:00 06/26/16 22:47 Desyrel - PO 100 mg HS [facility] Administration IMAGES: X-ray of left forearm (06/24/16): No sign of foreign body or soft tissue injury . No fractures, subluxation, or bone destruction. Chest X-ray(06/24/16): Cardiomegaly. Bilateral congestive changes with left pacemaker and sternal sutures and clips Duplex of Left Upper Extremity (06/26/16): Negative for DVT ASSESSMENT/PLAN: Patient is a 61 year old male with a PMHx of Systolic CHF, CAD s/p [place] w/ 4 vessel CABG, AICD, Paroxysmal A.flutter, IDDM, COPD on home 02, CKD, and Ascites secondary to End stage systolic congestive heart failure who presented for left forearm pain, tenderness, swelling, and erythema. Patient admitted for Cellulitis of the left forearm. Cellulitis of left forearm- Acute and improving -Continue Unasyn 1.5 gm Q8H day #3 and Vancomycin day #2 -Blood cultures NGTD -Continue to monitor Ascites secondary to end stage systolic CHF- Chronic -U/S of abdomen ordered to rule out ascites was negative -Continue to monitor CMP Chronic severe LV systolic CHF with ischemic cardiomyopathy- Chronic -Continue Torsemide 100mg -Continue Coreg 6.25mg BID -Continue ASA 81mg daily -Continue Atorvastatin 40mg daily -Last TTE (12/07/15) revealed severe LV systolic dysfunction with global hypokinesia, mild MR, mild to moderate TR. moderate pulmonary HTN HTN- Chronic -Continue Coreg 6.25mg daily -Continue to monitor BP Paroxysmal atrial flutter- Chronic -Continue Xarelto 15mg (dosed for renal function) -Continue Coreg 6.25mg CAD s/p 4 vessel CABG, hx of cardiac arrest- Chronic - Continue ASA 81mg - Continue Lipitor 40mg COPD on home 02 with history of Stage 1 Lung cancer- Chronic -Continue 2L 02 -Continue Ipratropium/Albuterol IDDM type II- Chronic -BGM -Patient refusing our ISS and any insulin from the hospital as he wants to only inject his Humalin and Basaglar prescription. Patient is refusing to follow the geothermal powerplant mechanic helper's recommendations. Explained in full detail the harm of self injecting his own dosages. -Had an episode of hypoglycemia last night -Took his Insulin away and will administer according to insulin sliding scale ordered by geothermal powerplant mechanic helper CKD- Chronic -Baseline Creatinine 2.0 -Today 1.9 -Daily BMP -Continue to monitor Gout- Chronic -Continue Allopurinol 100mg daily -Continue Colchicine 0.6 mg daily for maintenance therapy BPH-Chronic -Continue FLomax 0.4mg daily Anxiety/Depression- Chronic -COntinue Trazodone 100mg -Continue Prozac 40mg -Will place psych consult F/E/N -On no fluids -Electrolytes wnl -Diabetic/Sodium controlled diet Prophylaxis -Xarelto 15mg for DVT Disposition -Will continue IV Antibiotics. Visit type - Emergency Visit Emergency Visit: Yes ED Registration Date: 06/24/16 Care time: The patient presented to the Emergency Department on the above date and was hospitalized for further evaluation of their emergent condition. - New Patient This patient is new to me today: No - Critical Care Critical Care patient: No
--- NOTE | 2016-06-27 15:50 | CON.PSY ---
Psychiatry Consult Chief Complaint: History of DEpression , has a history of chronic medicval conditions. Symptoms: reports: Depressed Mood, Irritability - Previous Psychiatric Treatment Outpatient: Less than 6 mos ago Inpatient: One prior admission - Previous Substance Abuse Treatment Outpatient: None - Reason for Previous Treatment Reason for Previous Treatment: Major Depression - Current Medications Current Medications: Active Medications Acetaminophen (Tylenol -) 325 mg PO Q4H PRN PRN Reason: PAIN Stop: 06/27/16 18:20 Last Admin: 06/27/16 11:56 Dose: 325 mg Albuterol/Ipratropium (Duoneb -) 1 amp NEB DAILY PRN PRN Reason: ASTHMA Allopurinol (Zyloprim -) 100 mg PO DAILY [facility] Last Admin: 06/27/16 10:10 Dose: 100 mg Aspirin (Asa -) 81 mg PO AM [facility] Last Admin: 06/27/16 06:22 Dose: 81 mg Atorvastatin Calcium (Lipitor -) 40 mg PO HS [facility] Last Admin: 06/26/16 22:47 Dose: 40 mg Carvedilol (Coreg -) 6.25 mg PO BID [facility] Last Admin: 06/27/16 10:11 Dose: 6.25 mg Cholecalciferol (Vitamin D3 -) 1,000 unit PO DAILY [facility] Last Admin: 06/27/16 10:10 Dose: 1,000 unit Colchicine (Colcrys -) 0.6 mg PO DAILY [facility] Last Admin: 06/27/16 10:10 Dose: 0.6 mg Fluoxetine HCl (Prozac -) 40 mg PO HS [facility] Last Admin: 06/26/16 22:47 Dose: 40 mg Ampicillin Sodium/Sulbactam Sodium (Unasyn 1.5 Gm (Pre-Docked)) 100 mls @ 200 mls/hr IVPB Q6H-IV [facility] Last Admin: 06/27/16 10:10 Dose: 200 mls/hr Humulin R U-500 Insulin - Patient Own Med 1 each SQ ACHS [facility] PRN Reason: Protocol Last Admin: 06/27/16 14:13 Dose: Not Given Basaglar Insulin Pen (- Patient Own Med) 30 each SQ HS [facility] Last Admin: 06/26/16 22:46 Dose: Not Given Basaglar Insulin Pen (- Patient Own Med) 70 each SQ AM [facility] Last Admin: 06/27/16 06:25 Dose: Not Given Oxycodone HCl (Roxicodone -) 5 mg PO Q6H PRN PRN Reason: PAIN Last Admin: 06/27/16 11:57 Dose: 5 mg Rivaroxaban (Xarelto -) 15 mg PO DAILY [facility] Last Admin: 06/27/16 10:10 Dose: 15 mg Tamsulosin HCl (Flomax -) 0.4 mg PO DAILY [facility] Last Admin: 06/27/16 10:10 Dose: 0.4 mg Torsemide (Demadex -) 40 mg PO BID [facility] Last Admin: 06/27/16 10:11 Dose: 40 mg Trazodone HCl (Desyrel -) 100 mg PO HS [facility] Last Admin: 06/26/16 22:47 Dose: 100 mg - Allergies Allergies: Allergies Allergy/AdvReac Type Severity Reaction Status Date / Time Iodinated Contrast Media - Allergy Verified 05/26/16 14:58 Oral and [Iodinated Contrast Media - IV Dye] raw fruits/vegetables Allergy Intermediate Rash Uncoded 05/26/16 14:58 iv contrast dye Allergy Uncoded 05/26/16 14:58 - Current Living Status Usual Living Arrangement: With Spouse - Current Mental Status Evaluation Appearance: Disheveled Attitude: Cooperative - Affect Affect: Full Range Appropriateness: Appropriate to Content - Mood Mood: Euthymic - Speech/Language Expressive: Coherent - Psychomotor Activity Psychomotor Activity: Normal - Thought Process Thought Process: Intact - Thought Content Hallucinations: Absent Delusions: Absent - Self Perception Self Perception: No Impairment - Cognition Attention: Alert Orientation: Time Memory, Immediate Recall: Intact Memory, Short Term: 3/3 Memory, Remote with Promptin/3 - Concentration Serial Sevens Intact: No Simple Calculations Intact: No - Abstraction Proverb Interpretation: Intact Judgement: Intact - Insight Insight: Intact - Impulse Control Impulse Control: Good Control - Suicidal Ideation Suicidal Ideation: No - Homicidal Ideation Homicidal Ideation: No Assessment/Plan 1) Continue with Prozac and Trazadone. 2) Discharge when medically clear, will follow with Dr. Rosa at [facility]
--- NOTE | 2016-06-27 18:26 | PN ---
Teaching Attending Note Name of Resident: Stacia Wharton ATTENDING PHYSICIAN STATEMENT I saw and evaluated the patient. I reviewed the resident's note and discussed the case with the resident. I agree with the resident's findings and plan as documented. SUBJECTIVE:c/o L shoulder pain. inability to move arm due to pain. started this afternoon. stated that he fell on his left side in the middle of the night when trying to ambulate to the bathroom. denies LOC, palpitatations or hitting his head. stated his legs felt weak and gave out. denies CP, SOB,fever, chills, N/V/ C?D. states arm swelling and pain has improved but extremity remains tender OBJECTIVE: Last Vital Signs Temp Pulse Resp BP Pulse Ox 99.4 F 68 20 102/55 95 06/27/16 17:20 06/27/16 17:20 06/27/16 17:20 06/27/16 17:20 06/27/16 09:00 General NAD CV S1 S2 RRR no murmur/rub/gallop lungs CTA B/L no wheezing/rales/rhonchi Extremities 1+ pitting and non-pitting edema of the LUE, tenderness on the forearm with warmth and erythema on extensor surface with subcentimeter lesion with no active drainage. able to move the digits. decreased passive ROM in all direction. point tenderness on AC joint. no point tenderness along the spine. no abrasions or ecchymosis along the back ASSESSMENT AND PLAN: 61 yo M with PMH of chronic systolic heart failure, CAD, [place], 4 vessel CABG, ischemic cardiomyopathy, AICD, PSVT, type 2 DM, COPD, chronic hypoxic respiratory failure, stage 3 CKD, ascites who presented to the ER and was admitted for further evaluation of their emergent condition 1. Left forearm cellulitis- improved per pt. doppler negative for DVT, no indication of abscess formation. on Vanco/unasyn. ID on board. 2. L shoulder pain- s/p mechanical fall last night. likely due to hypoglycemia. will check XR to ensure no fracture. indicates did not strike his head. no focal deficits no mental status changes. 3. Hypoglycemia- pt has been self injecting his own insulin and following his own sliding scale and not what was recommended by endocrine. informed him that he can not at this time inject himself as he is risking himself for hypoglycemia which can be deadly. fs this AM was 45. very adamant of keeping his sugars between 99-126. re-assured him that in the hospital setting that tight glycemic control is not necessary and that his sugars are likely higher as he is fighting off infection. 4. Afib- rate controlled. on xarelto. 5. dvt ppx- xarelto
[2016-06-27] MEDS: traZODone HCL 50 MG TABLET (FP) PO SCH (21:45)
[2016-06-27] MEDS: ATORVASTATIN CA 40 MG TABLET (FP) PO SCH (21:46)
[2016-06-27] MEDS: FLUoxetine HCL 20 MG CAPSULE (FP) PO SCH (21:46)
[2016-06-28] MEDS: AMPICILLIN NA/SULBACTAM NA 100 ML IVPB SCH ×4 (03:50→21:31)
[2016-06-28] MEDS ORDERED: SODIUM CHLORIDE 100 ML IVPB ONE ×3 (04:45→21:13)
[2016-06-28] MEDS ORDERED: AMPICILLIN NA/SULBACTAM NA 1.5 GM VIAL ONE ×4 (04:45→21:11)
[2016-06-28] MEDS: oxyCODONE HCL 5 MG TABLET PO PRN ×2 (04:50→16:03)
[2016-06-28] MEDS: ASPIRIN 81 MG CHEWABLE TABLETS PO SCH (06:22)
[2016-06-28] MEDS: HUMULIN R U INSULIN SQ SCH ×2 (06:23→14:29)
[2016-06-28] MEDS: BASAGLAR INSULIN SQ SCH (06:23)
[2016-06-28 08:19] LABS: MCH 30.4 pg (25.7-33.7); MCHC 33.3 g/dl (32.0-35.9); MEAN CELL VOLUME 91.5 fl (80-96); MEAN PLT VOLUME 9.4 fl (7.5-11.1); PLATELET COUNT 144 K/MM3 (134-434); RDW 17.7 % (11.9-15.9); WHITE BLOOD COUNT 7.6 K/mm3 (4.0-10.0)
[2016-06-28 09:24] LABS: ALBUMIN 2.4 g/dl (3.4-5.0); BILIRUBIN,TOTAL 1.1 mg/dL (0.2-1.0); COCKROFT - GAULT 68.43; CREATININE 1.8 mg/dL (0.7-1.3); TOT PROT 6.2 g/dl (6.4-8.2)
[2016-06-28] MEDS ORDERED: PT OWN MED DRAWER 7, Y5N ONE ×6 (10:00→21:16)
[2016-06-28] MEDS: COLCHICINE 0.6 MG TABLET (FP) PO SCH (10:04)
[2016-06-28] MEDS: TORSEMIDE 20 MG TABLET (FP) PO SCH ×2 (10:04→21:33)
[2016-06-28] MEDS: TAMSULOSIN HCL 0.4 MG CAP.ER.24H (FP) PO SCH (10:04)
[2016-06-28] MEDS: ALLOPURINOL 100 MG TABLET (FP) PO SCH (10:05)
[2016-06-28] MEDS: CARVEDILOL 6.25 MG TABLET (FP) PO SCH ×2 (10:05→21:34)
[2016-06-28] MEDS: CHOLECALCIFEROL (VITAMIN D3) 1,000 UNIT TABLET (FP) PO SCH (10:05)
[2016-06-28] MEDS: RIVAROXABAN 15 MG TABLET PO SCH (10:05)
[2016-06-28] MEDS: ALBUTEROL SO4 2.5/IPRATROPIUM 0.5 INH SOL 3 ML VIAL.NEB. NEB PRN (10:30)
[2016-06-28] MEDS ORDERED: NON-FORMULARY MED SQ SCH ×2 (11:09→12:43)
--- NOTE | 2016-06-28 11:20 | PN ---
Progress Note, Physician History of Present Illness: Reports less UE pain No fever/ chills - Current Medication List Current Medications: Active Medications Albuterol/Ipratropium (Duoneb -) 1 amp NEB DAILY PRN PRN Reason: ASTHMA Allopurinol (Zyloprim -) 100 mg PO DAILY [facility] Last Admin: 06/28/16 10:05 Dose: 100 mg Aspirin (Asa -) 81 mg PO AM [facility] Last Admin: 06/28/16 06:22 Dose: 81 mg Atorvastatin Calcium (Lipitor -) 40 mg PO HS [facility] Last Admin: 06/27/16 21:46 Dose: 40 mg Carvedilol (Coreg -) 6.25 mg PO BID [facility] Last Admin: 06/28/16 10:05 Dose: 6.25 mg Cholecalciferol (Vitamin D3 -) 1,000 unit PO DAILY [facility] Last Admin: 06/28/16 10:05 Dose: 1,000 unit Colchicine (Colcrys -) 0.6 mg PO DAILY [facility] Last Admin: 06/28/16 10:04 Dose: 0.6 mg Fluoxetine HCl (Prozac -) 40 mg PO HS [facility] Last Admin: 06/27/16 21:46 Dose: 40 mg Ampicillin Sodium/Sulbactam Sodium (Unasyn 1.5 Gm (Pre-Docked)) 100 mls @ 200 mls/hr IVPB Q6H-IV [facility] Last Admin: 06/28/16 10:04 Dose: 200 mls/hr Vancomycin HCl 1,000 mg/ (Dextrose) 250 mls @ 200 mls/hr IVPB Q24H [facility] Humulin R U-500 Insulin - Patient Own Med 1 each SQ ACHS [facility] PRN Reason: Protocol Last Admin: 06/28/16 06:23 Dose: Not Given Non-Formulary Medication (Non-Formulary Med) 50 each SQ AM [facility] Oxycodone HCl (Roxicodone -) 5 mg PO Q6H PRN PRN Reason: PAIN Last Admin: 06/28/16 04:50 Dose: 5 mg Rivaroxaban (Xarelto -) 15 mg PO DAILY [facility] Last Admin: 06/28/16 10:05 Dose: 15 mg Tamsulosin HCl (Flomax -) 0.4 mg PO DAILY [facility] Last Admin: 06/28/16 10:04 Dose: 0.4 mg Torsemide (Demadex -) 40 mg PO BID [facility] Last Admin: 06/28/16 10:04 Dose: 40 mg Trazodone HCl (Desyrel -) 100 mg PO [facility] Last Admin: 06/27/16 21:45 Dose: 100 mg - Objective Vital Signs: Vital Signs Temperature 99.2 F 06/28/16 06:33 Pulse Rate 92 H 06/28/16 06:33 Respiratory Rate 20 06/28/16 06:33 Blood Pressure 109/66 06/28/16 06:33 O2 Sat by Pulse Oximetry (%) 95 06/27/16 21:00 Constitutional: Yes: No Distress Eyes: Yes: Conjunctiva Clear Cardiovascular: Yes: Regular Rate and Rhythm, S1, S2 Respiratory: Yes: CTA Bilaterally Gastrointestinal: Yes: Normal Bowel Sounds, Soft. No: Tenderness Extremities: Yes: Other (decreased L UE edema Still erythematous- ? organizing ST abscess) Labs: CBC, BMP 06/28/16 06:50 06/28/16 06:50 INR, PTT INR 1.09 (0.82-1.09) 06/24/16 07:10 Assessment/Plan L UE cellulitis Diabetes mellitus CKD Continue unasyn /vancomycin Elevation
--- NOTE | 2016-06-28 11:37 | PN ---
Physical Exam: SUBJECTIVE: Patient seen and examined by me at bedside. No overnight events noted. Patient reports his left shoulder and forearm is still painful but does report it was better than yesterday. Otherwise, patient denies fever, chills, nausea, vomiting, shortness of breath, chest pain, palpitations. OBJECTIVE: Vital Signs Period Temp Pulse Resp BP Sys/Mcconnell Pulse Ox Last 24 Hr 98.6 F-99.4 F 68-92 18-20 101-115/44-66 95 GENERAL: Awake, alert, and fully oriented, in no acute distress. LUNGS: Distant breath sounds throughout lung bases bilaterally. No accessory muscle use. HEART: Decreased heart sounds and decreased S1 and S2 without murmur, rub or gallop due to patients body habitus. ABDOMEN: Obese Soft, distended, nontender, no guarding, no rebound, no masses. LOWER EXTREMITIES: Uniboot dressing in bilateral lower extremities from the ankles to below the knee with 1+ pitting edema of bilateral feet and knees. PSYCHIATRIC: Frustrated and somewhat agitated SKIN: left forearm and shoulder pain and tenderness, swelling, and erythema with limited range of motion. Mild purulent drainage and no lymphangitis. Able to flex past 45 degrees. Ecchymosis of right shoulder Laboratory Results - last 24 hr 06/27/16 06/27/16 06/27/16 12:07 17:31 21:44 WBC RBC Hgb Hct MCV MCHC RDW Plt Count MPV Sodium Potassium Chloride Carbon Dioxide Anion Gap BUN Creatinine Creat Clearance w eGFR POC Glucometer 135 211 239 Random Glucose Calcium Total Bilirubin AST ALT Alkaline Phosphatase Total Protein Albumin Random Vancomycin 06/28/16 06/28/16 06/28/16 06:20 06:50 06:50 WBC 7.6 RBC 3.60 L Hgb 10.9 L Hct 32.9 L MCV 91.5 MCHC 33.3 RDW 17.7 H Plt Count 144 D MPV 9.4 Sodium 140 Potassium 3.9 Chloride 98 Carbon Dioxide 27 Anion Gap 15 BUN 50 H Creatinine 1.8 H Creat Clearance w eGFR 38.55 POC Glucometer 68 Random Glucose 61 L Calcium 8.0 L Total Bilirubin 1.1 H AST 65 H D ALT 132 H Alkaline Phosphatase 447 H Total Protein 6.2 L Albumin 2.4 L Random Vancomycin 13.833 Active Medications Generic Name Dose Route Start Last Admin Trade Name Freq PRN Reason Stop Dose Admin Albuterol/Ipratropium 1 amp 06/24/16 17:53 Duoneb - NEB DAILY PRN ASTHMA Allopurinol 100 mg 06/24/16 18:00 06/28/16 10:05 Zyloprim - PO 100 mg DAILY [facility] Administration Aspirin 81 mg 06/25/16 07:00 06/28/16 06:22 Asa - PO 81 mg AM [facility] Administration Atorvastatin Calcium 40 mg 06/24/16 22:00 06/27/16 21:46 Lipitor - PO 40 mg HS [facility] Administration Carvedilol 6.25 mg 06/24/16 22:00 06/28/16 10:05 Coreg - PO 6.25 mg BID [facility] Administration Cholecalciferol 1,000 unit 06/24/16 19:30 06/28/16 10:05 Vitamin D3 - PO 1,000 unit DAILY [facility] Administration Colchicine 0.6 mg 06/24/16 18:00 06/28/16 10:04 Colcrys - PO 0.6 mg DAILY [facility] Administration Fluoxetine HCl 40 mg 06/24/16 22:00 06/27/16 21:46 Prozac - PO 40 mg HS [facility] Administration Ampicillin Sodium/Sulbactam Sodium 100 mls @ 200 mls/hr 06/25/16 15:00 10:04 Unasyn 1.5 Gm (Pre-Docked) IVPB 200 mls/hr Q6H-IV [facility] Administration Vancomycin HCl 1,000 mg/ 250 mls @ 200 mls/hr 06/28/16 11:30 Dextrose IVPB Q24H [facility] Humulin R U-500 1 each 06/25/16 22:00 06/28/16 06:23 Insulin - Patient SQ Not Given Own Med ACHS [facility] Protocol Non-Formulary Medication 50 each 06/28/16 11:09 Non-Formulary Med SQ AM [facility] Oxycodone HCl 5 mg 06/24/16 18:22 06/28/16 04:50 Roxicodone - PO 5 mg Q6H PRN Administration PAIN Rivaroxaban 15 mg 06/24/16 18:00 06/28/16 10:05 Xarelto - PO 15 mg DAILY [facility] Administration Tamsulosin HCl 0.4 mg 06/25/16 10:00 06/28/16 10:04 Flomax - PO 0.4 mg DAILY [facility] Administration Torsemide 40 mg 06/24/16 22:00 06/28/16 10:04 Demadex - PO 40 mg BID [facility] Administration Trazodone HCl 100 mg 06/24/16 22:00 06/27/16 21:45 Desyrel - PO 100 mg HS [facility] Administration IMAGES: X-ray of left forearm (06/24/16): No sign of foreign body or soft tissue injury . No fractures, subluxation, or bone destruction. Chest X-ray(06/24/16): Cardiomegaly. Bilateral congestive changes with left pacemaker and sternal sutures and clips Duplex of Left Upper Extremity (06/26/16): Negative for DVT Left Shoulder X-ray (06/27/16): No dislocation, acute fractures, or bone deformity ASSESSMENT/PLAN: Patient is a 61 year old male with a PMHx of Systolic CHF, CAD s/p [place] w/ 4 vessel CABG, AICD, Paroxysmal A.flutter, IDDM, COPD on home 02, CKD, and Ascites secondary to End stage systolic congestive heart failure who presented for left forearm pain, tenderness, swelling, and erythema. Patient admitted for Cellulitis of the left forearm. Cellulitis of left forearm- Acute and improving -Continue Unasyn 1.5 gm Q8H day #4 and Vancomycin day #3 -Blood cultures NGTD -Continue to monitor Left Shoulder Pain s/p Fall- Acute -X-ray negative fort acute pathology -Physical Therapy ordered -Pain control with Roxicodone 5mg Q6H PRN Ascites secondary to end stage systolic CHF- Chronic -U/S of abdomen ordered to rule out ascites was negative -Continue to monitor CMP Chronic severe LV systolic CHF with ischemic cardiomyopathy- Chronic -Continue Torsemide 100mg -Continue Coreg 6.25mg BID -Continue ASA 81mg daily -Continue Atorvastatin 40mg daily -Last TTE (12/07/15) revealed severe LV systolic dysfunction with global hypokinesia, mild MR, mild to moderate TR. moderate pulmonary HTN HTN- Chronic -Continue Coreg 6.25mg daily -Continue to monitor BP Paroxysmal atrial flutter- Chronic -Continue Xarelto 15mg (dosed for renal function) -Continue Coreg 6.25mg CAD s/p 4 vessel CABG, hx of cardiac arrest- Chronic - Continue ASA 81mg - Continue Lipitor 40mg COPD on home 02 with history of Stage 1 Lung cancer- Chronic -Continue 2L 02 -Continue Ipratropium/Albuterol IDDM type II- Chronic -Continue with his Humulin and BASAGLAR -ISS -BGM CKD- Chronic -Baseline Creatinine 2.0 -Today 1.8 -Daily BMP -Continue to monitor Gout- Chronic -Continue Allopurinol 100mg daily -Continue Colchicine 0.6 mg daily for maintenance therapy BPH-Chronic -Continue FLomax 0.4mg daily Anxiety/Depression- Chronic -Continue Trazodone 100mg -Continue Prozac 40mg -Will place psych consult F/E/N -On no fluids -Electrolytes wnl -Diabetic/Sodium controlled diet Prophylaxis -Xarelto 15mg for DVT Disposition -Will continue IV Antibiotics. Visit type - Emergency Visit Emergency Visit: Yes ED Registration Date: 06/24/16 Care time: The patient presented to the Emergency Department on the above date and was hospitalized for further evaluation of their emergent condition. - New Patient This patient is new to me today: No - Critical Care Critical Care patient: No
--- NOTE | 2016-06-28 12:48 | PN ---
Teaching Attending Note Name of Resident: Stacia Wharton ATTENDING PHYSICIAN STATEMENT I saw and evaluated the patient. I reviewed the resident's note and discussed the case with the resident. I agree with the resident's findings and plan as documented. SUBJECTIVE:continues to have LUE pain worse on movement. ROM limited to pain. denies CP, SOB,fever, chills, falls or LOC OBJECTIVE: Last Vital Signs Temp Pulse Resp BP Pulse Ox 99.2 F 92 H 20 109/66 97 06/28/16 06:33 06/28/16 06:33 06/28/16 06:33 06/28/16 06:33 06/28/16 09:00 General NAD Extremities 1+ pitting and non-pitting edema of the LUE, tenderness on the forearm with warmth and erythema on extensor surface with subcentimeter lesion with no active drainage. able to move the digits. decreased passive ROM in all direction. point tenderness on AC joint. no point tenderness along the spine. no abrasions or ecchymosis along the back ASSESSMENT AND PLAN: 61 yo M with PMH of chronic systolic heart failure, CAD, [place], 4 vessel CABG, ischemic cardiomyopathy, AICD, PSVT, type 2 DM, COPD, chronic hypoxic respiratory failure, stage 3 CKD, ascites who presented to the ER and was admitted for further evaluation of their emergent condition 1. Left forearm cellulitis-improved. Cx reported as negative. encouraged elevation of arm which he states he cant due to pain. Vanco trough therapeutic. on Vanco/unasyn. ID on board. 2. L shoulder pain- s/p mechanical fall. XR negative for acute fracture/ subluxation. PT assessment for ROM. 3. Hypoglycemia-low reading this AM but not symptomatic. received basaglar last night but has not received AM dosing for past 2 days due to hypoglycemic readings in AM. when received am dose on 06/26 became hypoglycemic in the evening. and 20 units coverage over past 24H. will reduce HS dose to prevent AM hypoglycemia. cont iss provided by endocrine 4. Acute normocytic anemia- acute drop in Hgb. as per pt had few drips from nares yesterday (no dried blood seen on exam) but has not had any true epistaxis. no difficulty breathing. denies BRBPR or melena. never had colonoscopy. recent iron studies done and reviewed. will monitor Hgb for now. no indication for transfusion. can f/u with GI as outpatient. will cont xarelto at thsi time as no bleeding noted 5. Afib- rate controlled. on xarelto. 6. dvt ppx- xarelto
--- NOTE | 2016-06-28 13:33 | PN ---
Progress Note, Physician Chief Complaint: LEFT FOREARM CELLULITIS,IDDM CKD,ASHD,CHF,CAD,MORBID OBESITY HYPERINSULINEMIA History of Present Illness: IDDM WITH CKD,HTN CHF,DIABETIC NEUROPATHY,MICRO AND MACROVASCULAR DISEASE,HYPER AND HYPOGLYCMIA NOTED - Current Medication List Current Medications: Active Medications Albuterol/Ipratropium (Duoneb -) 1 amp NEB DAILY PRN PRN Reason: ASTHMA Allopurinol (Zyloprim -) 100 mg PO DAILY [facility] Last Admin: 06/28/16 10:05 Dose: 100 mg Aspirin (Asa -) 81 mg PO AM [facility] Last Admin: 06/28/16 06:22 Dose: 81 mg Atorvastatin Calcium (Lipitor -) 40 mg PO HS [facility] Last Admin: 06/27/16 21:46 Dose: 40 mg Carvedilol (Coreg -) 6.25 mg PO BID [facility] Last Admin: 06/28/16 10:05 Dose: 6.25 mg Cholecalciferol (Vitamin D3 -) 1,000 unit PO DAILY [facility] Last Admin: 06/28/16 10:05 Dose: 1,000 unit Colchicine (Colcrys -) 0.6 mg PO DAILY [facility] Last Admin: 06/28/16 10:04 Dose: 0.6 mg Fluoxetine HCl (Prozac -) 40 mg PO HS [facility] Last Admin: 06/27/16 21:46 Dose: 40 mg Ampicillin Sodium/Sulbactam Sodium (Unasyn 1.5 Gm (Pre-Docked)) 100 mls @ 200 mls/hr IVPB Q6H-IV [facility] Last Admin: 06/28/16 10:04 Dose: 200 mls/hr Vancomycin HCl (Vancomycin (Pre-Docked)) 250 mls @ 200 mls/hr IVPB DAILY@1200 [facility] Non-Formulary Medication (Non-Formulary Med) 50 each SQ AM [facility] Non-Formulary Medication (Non-Formulary Med) 1 each SQ ACHS [facility] PRN Reason: Protocol Oxycodone HCl (Roxicodone -) 5 mg PO Q6H PRN PRN Reason: PAIN Last Admin: 06/28/16 04:50 Dose: 5 mg Rivaroxaban (Xarelto -) 15 mg PO DAILY [facility] Last Admin: 06/28/16 10:05 Dose: 15 mg Tamsulosin HCl (Flomax -) 0.4 mg PO DAILY [facility] Last Admin: 06/28/16 10:04 Dose: 0.4 mg Torsemide (Demadex -) 40 mg PO BID [facility] Last Admin: 06/28/16 10:04 Dose: 40 mg Trazodone HCl (Desyrel -) 100 mg PO HS [facility] Last Admin: 06/27/16 21:45 Dose: 100 mg - Objective Vital Signs: Vital Signs Temperature 98.6 F 06/28/16 10:00 Pulse Rate 83 06/28/16 10:00 Respiratory Rate 18 06/28/16 10:00 Blood Pressure 100/53 06/28/16 10:00 O2 Sat by Pulse Oximetry (%) 97 06/28/16 09:00 Constitutional: Yes: Well Nourished Eyes: Yes: WNL HENT: Yes: Atraumatic, Normocephalic Neck: Yes: WNL Cardiovascular: Yes: Pulse Irregular Respiratory: Yes: CTA Bilaterally Gastrointestinal: Yes: Normal Bowel Sounds ...Rectal Exam: Yes: Deferred Genitourinary: Yes: WNL Breast(s): Yes: WNL Musculoskeletal: Yes: Back Pain, Joint Stiffness, Joint Swelling, Muscle Weakness Extremities: Yes: WNL Edema: LLE: 2+, RLE: 2+ Neurological: Yes: Alert, Oriented Labs: CBC, BMP 06/28/16 06:50 06/28/16 06:50 INR, PTT INR 1.09 (0.82-1.09) 06/24/16 07:10 Problem List - Problems (1) Diabetes mellitus, insulin dependent (IDDM), uncontrolled Code(s): E10.65 - TYPE 1 DIABETES MELLITUS WITH HYPERGLYCEMIA Qualifiers: Diabetes mellitus complication detail: with polyneuropathy Assessment/Plan Current Active Problems Cellulitis of arm (Acute) Diabetes mellitus, insulin dependent (IDDM), uncontrolled (Acute) Abnormal Lab Results 06/28/16 06/28/16 06:50 06:50 RBC 3.60 L Hgb 10.9 L Hct 32.9 L RDW 17.7 H BUN 50 H Creatinine 1.8 H Random Glucose 61 L Calcium 8.0 L Total Bilirubin 1.1 H AST 65 H D ALT 132 H Alkaline Phosphatase 447 H Total Protein 6.2 L Albumin 2.4 L PLAN; BGM QID R U 500 COVERAGE DECREASE DOSE COVERAGE SUGARS ARE LOWER BASAGLAR 50 UNITS AM DAILY
[2016-06-28] MEDS ORDERED: SODIUM CHLORIDE 200 ML IVPB ONE (14:01)
[2016-06-28] MEDS: VANCOMYCIN 1 GRAM (PRE-DOCKED) 250 ML IVPB SCH (14:29)
[2016-06-28] MEDS: NON-FORMULARY MED SQ SCH ×2 (18:04→23:00)
[2016-06-28] MEDS: ATORVASTATIN CA 40 MG TABLET (FP) PO SCH (21:33)
[2016-06-28] MEDS: traZODone HCL 50 MG TABLET (FP) PO SCH (21:34)
[2016-06-28] MEDS: FLUoxetine HCL 20 MG CAPSULE (FP) PO SCH (21:34)
[2016-06-28] MEDS ORDERED: HUMULIN R U INSULIN SQ SCH (23:29)
[2016-06-29] MEDS ORDERED: SODIUM CHLORIDE 100 ML IVPB ONE ×3 (00:55→14:08)
[2016-06-29] MEDS ORDERED: AMPICILLIN NA/SULBACTAM NA 1.5 GM VIAL ONE ×3 (00:55→14:08)
[2016-06-29] MEDS: AMPICILLIN NA/SULBACTAM NA 100 ML IVPB SCH ×2 (02:34→10:46)
[2016-06-29] MEDS: oxyCODONE HCL 5 MG TABLET PO PRN ×2 (04:46→16:43)
[2016-06-29] MEDS: HUMULIN R U INSULIN SQ SCH ×4 (06:08→21:13)
[2016-06-29] MEDS: NON-FORMULARY MED SQ SCH (06:10)
[2016-06-29] MEDS: ASPIRIN 81 MG CHEWABLE TABLETS PO SCH (06:15)
[2016-06-29] MEDS ORDERED: PT OWN MED DRAWER 7, Y5N ONE ×5 (06:19→20:14)
[2016-06-29 08:58] LABS: ALBUMIN 2.4 g/dl (3.4-5.0)
[2016-06-29 09:02] LABS: BILIRUBIN,TOTAL 0.9 mg/dL (0.2-1.0); COCKROFT - GAULT 64.83; CREATININE 1.9 mg/dL (0.7-1.3); TOT PROT 6.6 g/dl (6.4-8.2)
[2016-06-29] MEDS: ALBUTEROL SO4 2.5/IPRATROPIUM 0.5 INH SOL 3 ML VIAL.NEB. NEB PRN (10:04)
[2016-06-29] MEDS: CARVEDILOL 6.25 MG TABLET (FP) PO SCH ×2 (10:47→21:13)
[2016-06-29] MEDS: ALLOPURINOL 100 MG TABLET (FP) PO SCH (10:47)
[2016-06-29] MEDS: COLCHICINE 0.6 MG TABLET (FP) PO SCH (10:47)
[2016-06-29] MEDS: TAMSULOSIN HCL 0.4 MG CAP.ER.24H (FP) PO SCH (10:47)
[2016-06-29] MEDS: CHOLECALCIFEROL (VITAMIN D3) 1,000 UNIT TABLET (FP) PO SCH (10:47)
[2016-06-29] MEDS: TORSEMIDE 20 MG TABLET (FP) PO SCH ×2 (10:47→21:13)
[2016-06-29] MEDS: RIVAROXABAN 15 MG TABLET PO SCH (10:48)
[2016-06-29] MEDS: VANCOMYCIN 1 GRAM (PRE-DOCKED) 250 ML IVPB SCH (11:39)
--- NOTE | 2016-06-29 14:36 | PN ---
Teaching Attending Note Name of Resident: Stacia Wharton ATTENDING PHYSICIAN STATEMENT I saw and evaluated the patient. I reviewed the resident's note and discussed the case with the resident. I agree with the resident's findings and plan as documented. SUBJECTIVE:states pain and swelling of arm improved. denies CP, SOB,fever, chills, N/V/C/D OBJECTIVE: Last Vital Signs Temp Pulse Resp BP Pulse Ox 100 F H 85 20 127/73 97 06/29/16 06:00 06/29/16 06:00 06/29/16 06:00 06/29/16 06:00 06/28/16 21:00 General NAD Extremities 1+ pitting and non-pitting edema of the LUE, ertyhema surrounding 1cm superficial ulcer on extensive surface. improved ROM at the elbow and wrist ASSESSMENT AND PLAN: 61 yo M with PMH of chronic systolic heart failure, CAD, [place], 4 vessel CABG, ischemic cardiomyopathy, AICD, PSVT, type 2 DM, COPD, chronic hypoxic respiratory failure, stage 3 CKD, ascites who presented to the ER and was admitted for further evaluation of their emergent condition 1. Left forearm cellulitis-improved. Cx reported as negative. encouraged elevation of arm which he states he cant due to pain. Vanco trough therapeutic. on Vanco/unasyn. ID on board. 2. Transaminitis- passage of gallstone vs medication induced. old U/s showed numerous gallstones. will repeat u/s to evaluate CBD. vs unasyn effect. will d/ w ID about abx course and duration. 3. L shoulder pain- s/p mechanical fall. XR negative for acute fracture/ subluxation. PT assessment for ROM. 4. Hypoglycemia-resolved. insulin adjusted by endocrine. now hyperglycemic. will monitor on new medication. bgm, iss 5. Acute normocytic anemia- no repeat labs noted from today. no reports of bleeding. will check Hgb tomorrow. 6. Afib- rate controlled. on xarelto. 7. dvt ppx- xarelto
--- NOTE | 2016-06-29 14:42 | PN ---
Progress Note (short form) - Note Progress Note: reports arm still swollen but less painful Vital Signs Period Temp Pulse Resp BP Sys/Mcconnell Pulse Ox Last 24 Hr 98.4 F-100 F 76-88 16-20 100-127/56-76 97 cor-rrr lungs clear abd soft,nt ext +erythema, pustule forming on forearm, +induration CBC, BMP 06/28/16 06:50 06/29/16 06:30 Laboratory Tests 06/28/16 06/29/16 06:50 06:30 AST 48 H D ALT 122 H Alkaline Phosphatase 555 H D Random Vancomycin 13.833 Microbiology 06/24/16 07:25 Blood - Peripheral Venous Blood Culture - Final NO GROWTH AFTER 5 DAYS INCUBATION 06/24/16 07:28 Blood - Peripheral Venous Blood Culture - Final NO GROWTH AFTER 5 DAYS INCUBATION 06/26/16 15:00 Urine - Urine Clean Catch Urine Culture - Final NO GROWTH OBTAINED a/p soft tissue infection of the forearm xray negative for foreign body duplex no dvt continue vancomycin rising alk phos- ?unasyn- will switch to cefazolin PPM CAD MARCIAL/CKD DM
--- NOTE | 2016-06-29 15:14 | PN ---
Physical Exam: SUBJECTIVE: Patient seen and examined by me at bedside. No overnight events noted. Patient reports the pain is better and is able to move his left forearm much better. Otherwise, patient denies fever, chills, nausea, vomiting, chest pain, palpitations, shortness of breath, abdominal pain, hematuria. OBJECTIVE: Vital Signs Period Temp Pulse Resp BP Sys/Mcconnell Pulse Ox Last 24 Hr 98.4 F-100 F 76-111 16-20 100-127/56-76 97 GENERAL: Awake, alert, and fully oriented, in no acute distress. LUNGS: Distant breath sounds throughout lung bases bilaterally with mild wheezing. No accessory muscle use. HEART: Decreased heart sounds and decreased S1 and S2 without murmur, rub or gallop due to patients body habitus. ABDOMEN: Obese Soft, distended, nontender, no guarding, no rebound, no masses. LOWER EXTREMITIES: 1+ pitting edema of bilateral feet and knees. SKIN: Pustule forming with mild drainage on the extensive surface of left forearm at the injection site with (+) induration, erythema, and swelling. Left hand and forearm swelling when compared to right arm. Able to flex the arm but still has limited range of motion in the forearm and shoulder. Laboratory Results - last 24 hr 06/28/16 06/28/16 06/29/16 17:39 21:32 05:44 Sodium Potassium Chloride Carbon Dioxide Anion Gap BUN Creatinine Creat Clearance w eGFR POC Glucometer 201 316 334 Random Glucose Calcium Total Bilirubin AST ALT Alkaline Phosphatase Total Protein Albumin 06/29/16 06/29/16 06:30 11:33 Sodium 139 Potassium 4.2 Chloride 98 Carbon Dioxide 27 Anion Gap 14 BUN 45 H Creatinine 1.9 H Creat Clearance w eGFR 36.22 POC Glucometer 281 Random Glucose 290 H D Calcium 8.0 L Total Bilirubin 0.9 AST 48 H D ALT 122 H Alkaline Phosphatase 555 H D Total Protein 6.6 Albumin 2.4 L Active Medications Generic Name Dose Route Start Last Admin Trade Name Freq PRN Reason Stop Dose Admin Albuterol/Ipratropium 1 amp 06/24/16 17:53 06/29/16 10:04 Duoneb - NEB 1 amp DAILY PRN Administration ASTHMA Allopurinol 100 mg 06/24/16 18:00 06/29/16 10:47 Zyloprim - PO 100 mg DAILY MAGEN Administration Aspirin 81 mg 06/25/16 07:00 06/29/16 06:15 Asa - PO 81 mg AM MAGEN Administration Atorvastatin Calcium 40 mg 06/24/16 22:00 06/28/16 21:33 Lipitor - PO 40 mg HS MAGEN Administration Carvedilol 6.25 mg 06/24/16 22:00 06/29/16 10:47 Coreg - PO 6.25 mg BID MAGEN Administration Cholecalciferol 1,000 unit 06/24/16 19:30 06/29/16 10:47 Vitamin D3 - PO 1,000 unit DAILY MAGEN Administration Colchicine 0.6 mg 06/24/16 18:00 06/29/16 10:47 Colcrys - PO 0.6 mg DAILY MAGEN Administration Fluoxetine HCl 40 mg 06/24/16 22:00 06/28/16 21:34 Prozac - PO 40 mg HS MAGEN Administration Vancomycin HCl 250 mls @ 200 mls/hr 06/28/16 12:00 06/29/16 11:39 Vancomycin (Pre-Docked) IVPB 200 mls/hr DAILY@1200 [facility]EN Administration Cefazolin Sodium 50 mls @ 100 mls/hr 06/29/16 18:00 Ancef 1 Gm Premixed Ivpb - IVPB Q8H-IV MAGEN Non-Formulary Medication 50 each 06/28/16 13:06 06/29/16 06:10 Non-Formulary Med SQ 50 each AM MAGEN Administration Humulin R U-500 0 each 06/29/16 06:06 06/29/16 11:39 Insulin SQ Not Given ACHS [facility] Protocol Oxycodone HCl 5 mg 06/24/16 18:22 06/29/16 04:46 Roxicodone - PO 5 mg Q6H PRN Administration PAIN Rivaroxaban 15 mg 06/24/16 18:00 06/29/16 10:48 Xarelto - PO 15 mg DAILY MAGEN Administration Tamsulosin HCl 0.4 mg 06/25/16 10:00 06/29/16 10:47 Flomax - PO 0.4 mg DAILY MAGEN Administration Torsemide 40 mg 06/24/16 22:00 06/29/16 10:47 Demadex - PO 40 mg BID MAGEN Administration Trazodone HCl 100 mg 06/24/16 22:00 06/28/16 21:34 Desyrel - PO 100 mg HS MAGEN Administration IMAGES: X-ray of left forearm (06/24/16): No sign of foreign body or soft tissue injury . No fractures, subluxation, or bone destruction. Chest X-ray(06/24/16): Cardiomegaly. Bilateral congestive changes with left pacemaker and sternal sutures and clips Duplex of Left Upper Extremity (06/26/16): Negative for DVT Left Shoulder X-ray (06/27/16): No dislocation, acute fractures, or bone deformity ASSESSMENT/PLAN: Patient is a 61 year old male with a PMHx of Systolic CHF, CAD s/p [place] w/ 4 vessel CABG, AICD, Paroxysmal A.flutter, IDDM, COPD on home 02, CKD, and Ascites secondary to End stage systolic congestive heart failure who presented for left forearm pain, tenderness, swelling, and erythema. Patient admitted for Cellulitis of the left forearm. Cellulitis of left forearm- improving -Discontinue Unasyn 1.5 gm and switched to IV Cefazolin 1gm Q8H and Vancomycin day #4 -Blood cultures NGTD -Continue arm elevation and physical therapy Left Shoulder Pain s/p Fall- Acute -X-ray negative fort acute pathology -Continue Physical Therapy -Pain control with Roxicodone 5mg Q6H PRN Ascites secondary to end stage systolic CHF- Chronic -U/S of abdomen ordered to rule out ascites was negative -Continue to monitor CMP Increasing Alkaline Phosphatase and LFT's secondary to possible medication induced vs. gallstone passage vs. congestive hepatopathy from end stage systolic CHF -Today >500 -Hepatitis panel negative done on 05/2016 and 11/2015 -Iron studies done 05/2016 -Patient has a history of cholelithiasis -Will repeat Abdominal U/S of RUQ to rule out cholelithiasis/acute cholecystitis -Unasyn has a common side effect of elevated LFT's. Unasyn stopped and switched to IV Cefazolin 1gm Q8H, as per ID. Chronic severe LV systolic CHF with ischemic cardiomyopathy- Chronic -Continue Torsemide 100mg -Continue Coreg 6.25mg BID -Continue ASA 81mg daily -Continue Atorvastatin 40mg daily -Last TTE (12/07/15) revealed severe LV systolic dysfunction with global hypokinesia, mild MR, mild to moderate TR. moderate pulmonary HTN HTN- Chronic -Continue Coreg 6.25mg daily -Continue to monitor BP Paroxysmal atrial flutter- Chronic -Continue Xarelto 15mg (dosed for renal function) -Continue Coreg 6.25mg CAD s/p 4 vessel CABG, hx of cardiac arrest- Chronic - Continue ASA 81mg - Continue Lipitor 40mg COPD on home 02 with history of Stage 1 Lung cancer- Chronic -Continue 2L 02 PRN -Continue Ipratropium/Albuterol IDDM type II- Chronic -Continue with his Humulin and BASAGLAR -ISS -BGM CKD- Chronic -Baseline Creatinine 2.0 -Today 1.9 -Daily BMP -Continue to monitor Gout- Chronic -Continue Allopurinol 100mg daily -Continue Colchicine 0.6 mg daily for maintenance therapy BPH-Chronic -Continue FLomax 0.4mg daily Anxiety/Depression- Chronic -Continue Trazodone 100mg -Continue Prozac 40mg -Will place psych consult F/E/N -On no fluids -Electrolytes wnl -Diabetic/Sodium controlled diet Prophylaxis -Xarelto 15mg for DVT Disposition -Will continue IV Antibiotics. Visit type - Emergency Visit Emergency Visit: Yes ED Registration Date: 06/24/16 Care time: The patient presented to the Emergency Department on the above date and was hospitalized for further evaluation of their emergent condition. - New Patient This patient is new to me today: No - Critical Care Critical Care patient: No
[2016-06-29] MEDS: CEFAZOLIN (PRE-DOCKED) 50 ML IVPB SCH (18:10)
[2016-06-29] MEDS: traZODone HCL 50 MG TABLET (FP) PO SCH (21:12)
[2016-06-29] MEDS: ATORVASTATIN CA 40 MG TABLET (FP) PO SCH (21:12)
[2016-06-29] MEDS: FLUoxetine HCL 20 MG CAPSULE (FP) PO SCH (21:13)
[2016-06-30] MEDS: CEFAZOLIN (PRE-DOCKED) 50 ML IVPB SCH ×3 (01:41→17:16)
[2016-06-30] MEDS: ASPIRIN 81 MG CHEWABLE TABLETS PO SCH (06:06)
[2016-06-30] MEDS: NON-FORMULARY MED SQ SCH (06:07)
[2016-06-30] MEDS: HUMULIN R U INSULIN SQ SCH ×4 (06:07→22:06)
[2016-06-30 07:38] LABS: MCH 30.5 pg (25.7-33.7); MCHC 33.4 g/dl (32.0-35.9); MEAN CELL VOLUME 91.2 fl (80-96); MEAN PLT VOLUME 9.3 fl (7.5-11.1); PLATELET COUNT 155 K/MM3 (134-434); RDW 17.8 % (11.9-15.9); WHITE BLOOD COUNT 5.9 K/mm3 (4.0-10.0)
[2016-06-30] MEDS ORDERED: PT OWN MED DRAWER 7, Y5N ONE ×8 (07:42→21:59)
[2016-06-30 08:02] LABS: ALBUMIN 2.2 g/dl (3.4-5.0)
[2016-06-30 08:07] LABS: BILIRUBIN,TOTAL 0.8 mg/dL (0.2-1.0); COCKROFT - GAULT 72.45; CREATININE 1.7 mg/dL (0.7-1.3); TOT PROT 5.9 g/dl (6.4-8.2)
--- NOTE | 2016-06-30 08:46 | PN ---
Addendum entered and electronically signed by Stacia Wharton RES 06/30/16 16:03 : Vanc trough in the morning Addendum entered and electronically signed by Stacia Wharton RES 06/30/16 16:01 : U/S revealed contracted gallbladder with gallstones. Patient has no complaints Original Note: Physical Exam: SUBJECTIVE: Patient seen and examined by me at bedside. No overnight events noted. Patient was able to sleep in bed supine this morning without much difficulty. Reports the pain is better on his forearm but his shoulder continues to hurt. Otherwise, patient denies fever, chills, nausea, vomiting, chest pain, palpitations, shortness of breath, headaches, abdominal pain. OBJECTIVE: Vital Signs Period Temp Pulse Resp BP Sys/Mcconnell Pulse Ox Last 24 Hr 97.9 F-99.6 F 76-111 16-20 107-130/61-72 96-97 GENERAL: Awake, alert, and fully oriented, in no acute distress. LUNGS: Distant breath sounds throughout lung bases bilaterally with mild wheezing. No accessory muscle use. HEART: Decreased heart sounds and decreased S1 and S2 without murmur, rub or gallop due to patients body habitus. ABDOMEN: Obese Soft, distended, nontender, no guarding, no rebound, no masses. LOWER EXTREMITIES: 1+ pitting edema of bilateral feet and knees. SKIN: Pustule filled fluid on the extensive surface of left forearm at the injection site with (+) induration, erythema, and swelling. Left hand and forearm swelling when compared to right arm. Able to flex the arm without elicited pain but still has limited range of motion in the left shoulder. Laboratory Results - last 24 hr 06/29/16 06/29/16 06/29/16 06:30 11:33 17:53 WBC RBC Hgb Hct MCV MCHC RDW Plt Count MPV Neutrophils % Lymphocytes % Sodium 139 Potassium 4.2 Chloride 98 Carbon Dioxide 27 Anion Gap 14 BUN 45 H Creatinine 1.9 H Creat Clearance w eGFR 36.22 POC Glucometer 281 341 Random Glucose 290 H D Calcium 8.0 L Total Bilirubin 0.9 AST 48 H D ALT 122 H Alkaline Phosphatase 555 H D Total Protein 6.6 Albumin 2.4 L 06/29/16 06/30/16 06/30/16 21:12 05:51 06:30 WBC 5.9 RBC 3.49 L Hgb 10.6 L Hct 31.8 L MCV 91.2 MCHC 33.4 RDW 17.8 H Plt Count 155 MPV 9.3 Neutrophils % Y Lymphocytes % Y Sodium Potassium Chloride Carbon Dioxide Anion Gap BUN Creatinine Creat Clearance w eGFR POC Glucometer 355 229 Random Glucose Calcium Total Bilirubin AST ALT Alkaline Phosphatase Total Protein Albumin 06/30/16 06:30 WBC RBC Hgb Hct MCV MCHC RDW Plt Count MPV Neutrophils % Lymphocytes % Sodium 140 Potassium 3.8 Chloride 100 Carbon Dioxide 30 Anion Gap 10 BUN 37 H Creatinine 1.7 H Creat Clearance w eGFR 41.18 POC Glucometer Random Glucose 236 H Calcium 8.0 L Total Bilirubin 0.8 AST 43 H ALT 98 H Alkaline Phosphatase 531 H Total Protein 5.9 L Albumin 2.2 L Active Medications Generic Name Dose Route Start Last Admin Trade Name Freq PRN Reason Stop Dose Admin Albuterol/Ipratropium 1 amp 06/24/16 17:53 06/29/16 10:04 Duoneb - NEB 1 amp DAILY PRN Administration ASTHMA Allopurinol 100 mg 06/24/16 18:00 06/29/16 10:47 Zyloprim - PO 100 mg DAILY MAGEN Administration Aspirin 81 mg 06/25/16 07:00 06/30/16 06:06 Asa - PO Not Given AM MAGEN Atorvastatin Calcium 40 mg 06/24/16 22:00 06/29/16 21:12 Lipitor - PO 40 mg HS MAGEN Administration Carvedilol 6.25 mg 06/24/16 22:00 06/29/16 21:13 Coreg - PO 6.25 mg BID MAGEN Administration Cholecalciferol 1,000 unit 06/24/16 19:30 06/29/16 10:47 Vitamin D3 - PO 1,000 unit DAILY MAGEN Administration Colchicine 0.6 mg 06/24/16 18:00 06/29/16 10:47 Colcrys - PO 0.6 mg DAILY MAGEN Administration Fluoxetine HCl 40 mg 06/24/16 22:00 06/29/16 21:13 Prozac - PO 40 mg HS MAGEN Administration Vancomycin HCl 250 mls @ 200 mls/hr 06/28/16 12:00 06/29/16 11:39 Vancomycin (Pre-Docked) IVPB 200 mls/hr DAILY@1200 MAGEN Administration Cefazolin Sodium 50 mls @ 100 mls/hr 06/29/16 18:00 06/30/16 01:41 Ancef 1gm Ivpb (Pre-Docked) IVPB 100 mls/hr Q8H-IV MAGEN Administration Non-Formulary Medication 50 each 06/28/16 13:06 06/30/16 06:07 Non-Formulary Med SQ Not Given AM MAGEN Humulin R U-500 0 each 06/29/16 06:06 06/30/16 06:07 Insulin SQ Not Given ACHS [facility] Protocol Oxycodone HCl 5 mg 06/24/16 18:22 06/29/16 16:43 Roxicodone - PO 5 mg Q6H PRN Administration PAIN Rivaroxaban 15 mg 06/24/16 18:00 06/29/16 10:48 Xarelto - PO 15 mg DAILY MAGEN Administration Tamsulosin HCl 0.4 mg 06/25/16 10:00 06/29/16 10:47 Flomax - PO 0.4 mg DAILY MAGEN Administration Torsemide 40 mg 06/24/16 22:00 06/29/16 21:13 Demadex - PO 40 mg BID MAGEN Administration Trazodone HCl 100 mg 06/24/16 22:00 06/29/16 21:12 Desyrel - PO 100 mg HS MAGEN Administration IMAGES: X-ray of left forearm (06/24/16): No sign of foreign body or soft tissue injury . No fractures, subluxation, or bone destruction. Chest X-ray(06/24/16): Cardiomegaly. Bilateral congestive changes with left pacemaker and sternal sutures and clips Duplex of Left Upper Extremity (06/26/16): Negative for DVT Left Shoulder X-ray (06/27/16): No dislocation, acute fractures, or bone deformity ASSESSMENT/PLAN: Patient is a 61 year old male with a PMHx of Systolic CHF, CAD s/p [place] w/ 4 vessel CABG, AICD, Paroxysmal A.flutter, IDDM, COPD on home 02, CKD, and Ascites secondary to End stage systolic congestive heart failure who presented for left forearm pain, tenderness, swelling, and erythema. Patient admitted for Cellulitis of the left forearm. Cellulitis of left forearm- improving -Continue IV Cefazolin 1gm Q8H day #1 after completing Unasyn 1.5gm for 5 day and Vancomycin day #4 -Blood cultures NGTD -Continue arm elevation and physical therapy Left Shoulder Pain s/p Fall- Acute -X-ray negative fort acute pathology -Continue Physical Therapy -Pain control with Roxicodone 5mg Q6H PRN Ascites secondary to end stage systolic CHF- Chronic -U/S of abdomen ordered to rule out ascites was negative -Continue to monitor CMP Increasing Alkaline Phosphatase and LFT's secondary to possible medication induced vs. gallstone passage vs. congestive hepatopathy from end stage systolic CHF -Today >531, went down from 555 yesterday -Hepatitis panel negative done on 05/2016 and 11/2015 -Iron studies done 05/2016 -Patient has a history of cholelithiasis -Abdominal U/S of RUQ to rule out cholelithiasis/acute cholecystitis scheduled for today -Unasyn has a common side effect of elevated LFT's. Unasyn stopped and switched to IV Cefazolin 1gm Q8H, as per ID. Chronic severe LV systolic CHF with ischemic cardiomyopathy- Chronic -Continue Torsemide 100mg -Continue Coreg 6.25mg BID -Continue ASA 81mg daily -Continue Atorvastatin 40mg daily -Last TTE (12/07/15) revealed severe LV systolic dysfunction with global hypokinesia, mild MR, mild to moderate TR. moderate pulmonary HTN HTN- Chronic -Continue Coreg 6.25mg daily -Continue to monitor BP Paroxysmal atrial flutter- Chronic -Continue Xarelto 15mg (dosed for renal function) -Continue Coreg 6.25mg CAD s/p 4 vessel CABG, hx of cardiac arrest- Chronic - Continue ASA 81mg - Continue Lipitor 40mg COPD on home 02 with history of Stage 1 Lung cancer- Chronic -Continue 2L 02 PRN -Continue Ipratropium/Albuterol IDDM type II- Chronic -Continue with his Humulin and BASAGLAR -ISS -BGM CKD- Chronic -Baseline Creatinine 2.0 -Today 1.7 -Daily BMP -Continue to monitor Gout- Chronic -Continue Allopurinol 100mg daily -Continue Colchicine 0.6 mg daily for maintenance therapy BPH-Chronic -Continue Flomax 0.4mg daily Anxiety/Depression- Chronic -Continue Trazodone 100mg -Continue Prozac 40mg -Will place psych consult F/E/N -On no fluids -Electrolytes wnl -Diabetic/Sodium controlled diet Prophylaxis -Xarelto 15mg for DVT Disposition -Will continue IV Antibiotics. Abdominal U/S today Visit type - Emergency Visit Emergency Visit: Yes ED Registration Date: 06/24/16 Care time: The patient presented to the Emergency Department on the above date and was hospitalized for further evaluation of their emergent condition. - New Patient This patient is new to me today: No - Critical Care Critical Care patient: No
[2016-06-30 11:09] LABS: METAMYELOCYTE 1 % (0-2); PLATELET ESTIMATE ADEQUATE (NORMAL)
[2016-06-30] MEDS: CARVEDILOL 6.25 MG TABLET (FP) PO SCH ×2 (11:12→22:04)
[2016-06-30] MEDS: COLCHICINE 0.6 MG TABLET (FP) PO SCH (11:12)
[2016-06-30] MEDS: CHOLECALCIFEROL (VITAMIN D3) 1,000 UNIT TABLET (FP) PO SCH (11:12)
[2016-06-30] MEDS: TAMSULOSIN HCL 0.4 MG CAP.ER.24H (FP) PO SCH (11:13)
[2016-06-30] MEDS: TORSEMIDE 20 MG TABLET (FP) PO SCH ×2 (11:13→22:04)
[2016-06-30] MEDS: ALLOPURINOL 100 MG TABLET (FP) PO SCH (11:14)
[2016-06-30] MEDS: oxyCODONE HCL 5 MG TABLET PO PRN ×3 (11:15→22:16)
[2016-06-30] MEDS: RIVAROXABAN 15 MG TABLET PO SCH (11:18)
[2016-06-30] MEDS: VANCOMYCIN 1 GRAM (PRE-DOCKED) 250 ML IVPB SCH (11:18)
--- NOTE | 2016-06-30 13:31 | PN ---
Teaching Attending Note Name of Resident: Stacia Wharton ATTENDING PHYSICIAN STATEMENT I saw and evaluated the patient. I reviewed the resident's note and discussed the case with the resident. I agree with the resident's findings and plan as documented. SUBJECTIVE:continues to have pain in extremity but states its improved. denies Cp, SOB,fever, chills, N/V/C/D OBJECTIVE: Last Vital Signs Temp Pulse Resp BP Pulse Ox 99.7 F H 75 19 110/63 96 06/30/16 08:20 06/30/16 11:05 06/30/16 08:20 06/30/16 11:05 06/29/16 21:00 General NAD Extremities 1+ pitting and non-pitting edema of the LUE, ertyhema surrounding 1cm superficial ulcer on extensive surface. +induration. no longer warm but tender over central part. fluid filled blister ruptured. improved ROM at the elbow and wrist ASSESSMENT AND PLAN: 61 yo M with PMH of chronic systolic heart failure, CAD, [place], 4 vessel CABG, ischemic cardiomyopathy, AICD, PSVT, type 2 DM, COPD, chronic hypoxic respiratory failure, stage 3 CKD, ascites who presented to the ER and was admitted for further evaluation of their emergent condition 1. Left forearm cellulitis-improved. concern about forming abscess. will cont to monitor. unasyn switched to cefazolin. cont vanco. ID on board. 2. Transaminitis- passage of gallstone vs medication induced. remains asymptomatic. u/s perfomed and pending. unasyn switched. will trend alk phos. 3. L shoulder pain- s/p mechanical fall. XR negative for acute fracture/ subluxation. PT assessment for ROM. 4. Hypoglycemia-now hyperglycemic. insulin being monitored by endocrine. 5. Acute normocytic anemia-stable. cont to monitor. no signs of bleeding 6. Afib- rate controlled. on xarelto. 7. dvt ppx- xarelto
--- NOTE | 2016-06-30 15:03 | PN ---
Progress Note (short form) - Note Progress Note: reports arm still swollen but less painful NAD ambulating in the [facility] Vital Signs Period Temp Pulse Resp BP Sys/Mcconnell Pulse Ox Last 24 Hr 97.9 F-99.7 F 72-86 16-20 107-138/61-74 96 cor-rrr lungs clear abd soft,nt forearm with indurated, with pustule, +erythema legs wrapped CBC, BMP 06/30/16 06:30 06/30/16 06:30 a/p soft tissue infection of the forearm xray negative for foreign body duplex no dvt continue vancomycin and cefazolin vanco trough in am elevated lfts- trend off unasyn, f/u sonogram PPM CAD MARCIAL/CKD DM Laboratory Tests 06/28/16 06/29/16 06/30/16 06:50 06:30 06:30 Total Bilirubin 1.1 H 0.9 AST 65 H D 48 H D 43 H ALT 132 H 122 H 98 H Alkaline Phosphatase 447 H 555 H D 531 H Random Vancomycin 13.833
[2016-06-30] MEDS ORDERED: oxyCODONE HCL 5 MG TABLET PO PRN (15:54)
[2016-06-30] MEDS: ATORVASTATIN CA 40 MG TABLET (FP) PO SCH (22:05)
[2016-06-30] MEDS: traZODone HCL 50 MG TABLET (FP) PO SCH (22:05)
[2016-06-30] MEDS: FLUoxetine HCL 20 MG CAPSULE (FP) PO SCH (22:05)
[2016-07-01] MEDS: CEFAZOLIN (PRE-DOCKED) 50 ML IVPB SCH ×3 (02:10→17:39)
[2016-07-01] MEDS: oxyCODONE HCL 5 MG TABLET PO PRN ×4 (02:30→22:17)
[2016-07-01] MEDS ORDERED: PT OWN MED DRAWER 7, Y5N ONE ×5 (06:32→22:22)
[2016-07-01] MEDS: HUMULIN R U INSULIN SQ SCH ×4 (06:38→22:09)
[2016-07-01] MEDS: ASPIRIN 81 MG CHEWABLE TABLETS PO SCH (06:39)
[2016-07-01] MEDS: NON-FORMULARY MED SQ SCH (06:40)
[2016-07-01 08:26] LABS: MCH 30.8 pg (25.7-33.7); MCHC 33.9 g/dl (32.0-35.9); MEAN PLT VOLUME 9.2 fl (7.5-11.1); PLATELET COUNT 173 K/MM3 (134-434); RDW 17.6 % (11.9-15.9); WHITE BLOOD COUNT 5.8 K/mm3 (4.0-10.0)
[2016-07-01 08:47] LABS: ALBUMIN 2.3 g/dl (3.4-5.0); CALCIUM 7.9 mg/dL (8.5-10.1); COCKROFT - GAULT 72.45; CREATININE 1.7 mg/dL (0.7-1.3)
[2016-07-01] MEDS: RIVAROXABAN 15 MG TABLET PO SCH (10:27)
[2016-07-01] MEDS: ALLOPURINOL 100 MG TABLET (FP) PO SCH (10:27)
[2016-07-01] MEDS: CHOLECALCIFEROL (VITAMIN D3) 1,000 UNIT TABLET (FP) PO SCH (10:27)
[2016-07-01] MEDS: TORSEMIDE 20 MG TABLET (FP) PO SCH ×2 (10:27→22:10)
[2016-07-01] MEDS: COLCHICINE 0.6 MG TABLET (FP) PO SCH (10:27)
[2016-07-01] MEDS: TAMSULOSIN HCL 0.4 MG CAP.ER.24H (FP) PO SCH (10:27)
[2016-07-01] MEDS: CARVEDILOL 6.25 MG TABLET (FP) PO SCH ×2 (10:28→22:09)
--- NOTE | 2016-07-01 11:24 | PN ---
Progress Note (short form) - Note Progress Note: continues to have LUE pain. states that it was more swollen and red than yesterday. denies CP, SOb,fever, chills, drainage from arm Current Medications Generic Name Dose Route Start Last Admin Trade Name Freq PRN Reason Stop Dose Admin Albuterol/Ipratropium 1 amp 06/24/16 17:53 06/29/16 10:04 Duoneb - NEB 1 amp DAILY PRN Administration ASTHMA Allopurinol 100 mg 06/24/16 18:00 07/01/16 10:27 Zyloprim - PO 100 mg DAILY MAGEN Administration Aspirin 81 mg 06/25/16 07:00 07/01/16 06:39 Asa - PO 81 mg AM MAGEN Administration Atorvastatin Calcium 40 mg 06/24/16 22:00 06/30/16 22:05 Lipitor - PO 40 mg HS MAGEN Administration Carvedilol 6.25 mg 06/24/16 22:00 07/01/16 10:28 Coreg - PO 6.25 mg BID MAGEN Administration Cholecalciferol 1,000 unit 06/24/16 19:30 07/01/16 10:27 Vitamin D3 - PO 1,000 unit DAILY MAGEN Administration Colchicine 0.6 mg 06/24/16 18:00 07/01/16 10:27 Colcrys - PO 0.6 mg DAILY MAGEN Administration Fluoxetine HCl 40 mg 06/24/16 22:00 06/30/16 22:05 Prozac - PO 40 mg HS MAGEN Administration Vancomycin HCl 250 mls @ 200 mls/hr 06/28/16 12:00 06/30/16 11:18 Vancomycin (Pre-Docked) IVPB 200 mls/hr DAILY@1200 MAGEN Administration Cefazolin Sodium 50 mls @ 100 mls/hr 06/29/16 18:00 07/01/16 10:27 Ancef 1gm Ivpb (Pre-Docked) IVPB 100 mls/hr Q8H-IV MAGEN Administration Non-Formulary Medication 50 each 06/28/16 13:06 07/01/16 06:40 Non-Formulary Med SQ 50 each AM MAGEN Administration Humulin R U-500 0 each 06/29/16 06:06 07/01/16 06:38 Insulin SQ Not Given ACHS [facility] Protocol Oxycodone HCl 5 mg 06/30/16 20:58 07/01/16 10:29 Roxicodone - PO 5 mg Q4H PRN Administration PAIN Rivaroxaban 15 mg 06/24/16 18:00 07/01/16 10:27 Xarelto - PO 15 mg DAILY MAGEN Administration Tamsulosin HCl 0.4 mg 06/25/16 10:00 07/01/16 10:27 Flomax - PO 0.4 mg DAILY MAGEN Administration Torsemide 40 mg 06/24/16 22:00 07/01/16 10:27 Demadex - PO 40 mg BID MAGEN Administration Trazodone HCl 100 mg 06/24/16 22:00 06/30/16 22:05 Desyrel - PO 100 mg HS MAGEN Administration Last Vital Signs Temp Pulse Resp BP Pulse Ox 98.4 F 79 20 127/72 96 06/30/16 22:00 07/01/16 06:00 07/01/16 06:00 07/01/16 06:00 06/30/16 21:00 General NAD Extremities 1+ pitting and non-pitting edema of the LUE, ertyhema surrounding 1cm superficial ulcer on extensive surface. +induration. no longer warm but tender over central part. improved ROM at the elbow and wrist CBCD WBC 5.8 K/mm3 (4.0-10.0) 07/01/16 07:30 RBC 3.54 M/mm3 (4.00-5.60) L 07/01/16 07:30 Hgb 10.9 GM/dL (11.7-16.9) L 07/01/16 07:30 Hct 32.2 % (35.4-49) L 07/01/16 07:30 MCV 91.0 fl (80-96) 07/01/16 07:30 MCHC 33.9 g/dl (32.0-35.9) 07/01/16 07:30 RDW 17.6 % (11.9-15.9) H 07/01/16 07:30 Plt Count 173 K/MM3 (134-434) 07/01/16 07:30 MPV 9.2 fl (7.5-11.1) 07/01/16 07:30 CMP Sodium 140 mmol/L (136-145) 07/01/16 07:30 Potassium 3.8 mmol/L (3.5-5.1) 07/01/16 07:30 Chloride 98 mmol/L (98-107) 07/01/16 07:30 Carbon Dioxide 31 mmol/L (21-32) 07/01/16 07:30 Anion Gap 11 (8-16) 07/01/16 07:30 BUN 35 mg/dL (7-18) H 07/01/16 07:30 Creatinine 1.7 mg/dL (0.7-1.3) H 07/01/16 07:30 Creat Clearance w eGFR 41.18 (>60) 07/01/16 07:30 Calcium 7.9 mg/dL (8.5-10.1) L 07/01/16 07:30 Total Bilirubin 1.0 mg/dL (0.2-1.0) D 07/01/16 07:30 AST 36 U/L (15-37) 07/01/16 07:30 ALT 70 U/L (12-78) D 07/01/16 07:30 Alkaline Phosphatase 525 U/L (45-117) H 07/01/16 07:30 Total Protein 6.0 g/dl (6.4-8.2) L 07/01/16 07:30 Albumin 2.3 g/dl (3.4-5.0) L 07/01/16 07:30 ASSESSMENT AND PLAN: 61 yo M with PMH of chronic systolic heart failure, CAD, [place], 4 vessel CABG, ischemic cardiomyopathy, AICD, PSVT, type 2 DM, COPD, chronic hypoxic respiratory failure, stage 3 CKD, ascites who presented to the ER and was admitted for further evaluation of their emergent condition 1. Left forearm cellulitis-does appear more erthematous than yesterday however does not appear more swollen to me. concern for possible developing abscess. will u/s arm to evaluate tomorrow if no improvement. warm soaks to arm, elevate LUE. on Vanco/cefazolin. pain control. ID on board. 2. Transaminitis- passage of gallstone vs medication induced. remains asymptomatic. u/s showing gallstones but no dilated CBD. possible passed stone already. enzymes improving. 3. L shoulder pain- s/p mechanical fall. XR negative for acute fracture/ subluxation. PT 4. Hypoglycemia-now hyperglycemic. insulin being monitored by endocrine. remains elevated. 5. Acute normocytic anemia-stable. cont to monitor. no signs of bleeding 6. Afib- rate controlled. on xarelto. 7. dvt ppx- xarelto 8. pt requesting to go home with oral abx. explained risks as possible forming abscess. that IV abx are necessary at this time. explained risks of developing abscess which can progress to sepsis and organ failure. if does leave will be AMA. will talk with ID about abx choice if is to leave. Visit type - Emergency Visit Emergency Visit: Yes ED Registration Date: 06/24/16 Care time: The patient presented to the Emergency Department on the above date and was hospitalized for further evaluation of their emergent condition. - New Patient This patient is new to me today: No - Critical Care Critical Care patient: No - Discharge Referral Referred to [facility] Med P.C[facility] No
[2016-07-01] MEDS: VANCOMYCIN 1 GRAM (PRE-DOCKED) 250 ML IVPB SCH (12:28)
--- NOTE | 2016-07-01 12:30 | PN ---
Progress Note (short form) - Note Progress Note: no complaints Vital Signs Period Temp Pulse Resp BP Sys/Mcconnell Pulse Ox Last 24 Hr 98.2 F-98.4 F 79-86 16-20 107-138/61-75 96 cor-rrr llungs clear arm- +erythema, ?pustule, fluid coalescing CBC, BMP 07/01/16 07:30 07/01/16 07:30 vanco trough is 9.8 Microbiology 06/24/16 07:25 Blood - Peripheral Venous Blood Culture - Final NO GROWTH AFTER 5 DAYS INCUBATION 06/24/16 07:28 Blood - Peripheral Venous Blood Culture - Final NO GROWTH AFTER 5 DAYS INCUBATION 06/26/16 15:00 Urine - Urine Clean Catch Urine Culture - Final NO GROWTH OBTAINED a/p I think the fluid is collecting in his arm is no longer as diffuse and can probable be drained in a day or two continue vancomycin and cefazolin lfts improving off unasyn continue warm compresses incrase vancomycin to 1250 daily follow levels cardiomyopathy PPM/AICD CKD
[2016-07-01] MEDS: ALBUTEROL SO4 2.5/IPRATROPIUM 0.5 INH SOL 3 ML VIAL.NEB. NEB PRN (16:40)
[2016-07-01] MEDS: ATORVASTATIN CA 40 MG TABLET (FP) PO SCH (22:09)
[2016-07-01] MEDS: FLUoxetine HCL 20 MG CAPSULE (FP) PO SCH (22:10)
[2016-07-01] MEDS: traZODone HCL 50 MG TABLET (FP) PO SCH (22:10)
[2016-07-02] MEDS: CEFAZOLIN (PRE-DOCKED) 50 ML IVPB SCH ×3 (01:24→17:46)
[2016-07-02] MEDS: oxyCODONE HCL 5 MG TABLET PO PRN ×4 (04:19→22:13)
[2016-07-02] MEDS ORDERED: PT OWN MED DRAWER 7, Y5N ONE ×8 (06:51→21:57)
[2016-07-02] MEDS: ASPIRIN 81 MG CHEWABLE TABLETS PO SCH (06:53)
[2016-07-02] MEDS: HUMULIN R U INSULIN SQ SCH ×4 (06:53→22:14)
[2016-07-02] MEDS: NON-FORMULARY MED SQ SCH (06:54)
--- NOTE | 2016-07-02 08:48 | PN ---
Progress Note (short form) - Note Progress Note: continues to have LUE pain but improving. improved mobility of the LUE. denies CP, SOb,fever, chills, drainage from arm Current Medications Generic Name Dose Route Start Last Admin Trade Name Freq PRN Reason Stop Dose Admin Albuterol/Ipratropium 1 amp 06/24/16 17:53 07/01/16 16:40 Duoneb - NEB 1 amp DAILY PRN Administration ASTHMA Allopurinol 100 mg 06/24/16 18:00 07/01/16 10:27 Zyloprim - PO 100 mg DAILY MAGEN Administration Aspirin 81 mg 06/25/16 07:00 07/02/16 06:53 Asa - PO 81 mg AM MAGEN Administration Atorvastatin Calcium 40 mg 06/24/16 22:00 07/01/16 22:09 Lipitor - PO 40 mg HS MAGEN Administration Carvedilol 6.25 mg 06/24/16 22:00 07/01/16 22:09 Coreg - PO 6.25 mg BID MAGEN Administration Cholecalciferol 1,000 unit 06/24/16 19:30 07/01/16 10:27 Vitamin D3 - PO 1,000 unit DAILY MAGEN Administration Colchicine 0.6 mg 06/24/16 18:00 07/01/16 10:27 Colcrys - PO 0.6 mg DAILY MAGEN Administration Fluoxetine HCl 40 mg 06/24/16 22:00 07/01/16 22:10 Prozac - PO 40 mg HS MAGEN Administration Cefazolin Sodium 50 mls @ 100 mls/hr 06/29/16 18:00 07/02/16 01:24 Ancef 1gm Ivpb (Pre-Docked) IVPB 100 mls/hr Q8H-IV MAGEN Administration Vancomycin HCl 1,250 mg/ 250 mls @ 166.667 mls/hr 07/02/16 14:00 Dextrose IVPB Q24H MAGEN Protocol Non-Formulary Medication 50 each 06/28/16 13:06 07/02/16 06:54 Non-Formulary Med SQ 50 each AM MAGEN Administration Humulin R U-500 0 each 06/29/16 06:06 07/02/16 06:53 Insulin SQ 10 each ACHS MAGEN Administration Protocol Oxycodone HCl 5 mg 06/30/16 20:58 07/02/16 04:19 Roxicodone - PO 5 mg Q4H PRN Administration PAIN Rivaroxaban 15 mg 06/24/16 18:00 07/01/16 10:27 Xarelto - PO 15 mg DAILY MAGEN Administration Tamsulosin HCl 0.4 mg 06/25/16 10:00 07/01/16 10:27 Flomax - PO 0.4 mg DAILY MAGEN Administration Torsemide 40 mg 06/24/16 22:00 07/01/16 22:10 Demadex - PO 40 mg BID MAGEN Administration Trazodone HCl 100 mg 06/24/16 22:00 07/01/16 22:10 Desyrel - PO 100 mg HS MAGEN Administration Last Vital Signs Temp Pulse Resp BP Pulse Ox 98.9 F 69 20 114/65 97 07/02/16 06:00 07/02/16 06:00 07/02/16 06:00 07/02/16 06:00 07/01/16 21:00 General NAD Extremities +edema of LUE. erythema is worsened but receeding and only on posterior aspect of arm and no longer circumferential. worsening induration over center of erythema. improved ROM at the elbow and wrist ASSESSMENT AND PLAN: 61 yo M with PMH of chronic systolic heart failure, CAD, [place], 4 vessel CABG, ischemic cardiomyopathy, AICD, PSVT, type 2 DM, COPD, chronic hypoxic respiratory failure, stage 3 CKD, ascites who presented to the ER and was admitted for further evaluation of their emergent condition 1. Left forearm cellulitis-possible abscess formation. plan to u/s area tomorrow and evaluate if there is one and if I&D required. cont warm soaks, elevated extremity. on Vanco/cefazolin. vanco dose adjusted yesterday. pain control. ID on board. 2. Transaminitis- passage of gallstone vs medication induced. remains asymptomatic. u/s showing gallstones but no dilated CBD. possible passed stone already. enzymes improving. 3. L shoulder pain- s/p mechanical fall. XR negative for acute fracture/ subluxation. PT as outpatient 4. Hypoglycemia-now hyperglycemic. insulin being monitored by endocrine. requrining high amounts of coverage. not familiar with this new medication, will call endocrine tomorrow on adjusting. 5. Acute normocytic anemia-stable. cont to monitor. no signs of bleeding 6. Afib- rate controlled. on xarelto. 7. dvt ppx- xarelto Visit type - Emergency Visit Emergency Visit: Yes ED Registration Date: 06/24/16 Care time: The patient presented to the Emergency Department on the above date and was hospitalized for further evaluation of their emergent condition. - New Patient This patient is new to me today: No - Critical Care Critical Care patient: No - Discharge Referral Referred to [facility] No
[2016-07-02] MEDS: ALBUTEROL SO4 2.5/IPRATROPIUM 0.5 INH SOL 3 ML VIAL.NEB. NEB PRN (09:49)
[2016-07-02] MEDS: COLCHICINE 0.6 MG TABLET (FP) PO SCH (10:20)
[2016-07-02] MEDS: CARVEDILOL 6.25 MG TABLET (FP) PO SCH ×2 (10:20→22:13)
[2016-07-02] MEDS: TAMSULOSIN HCL 0.4 MG CAP.ER.24H (FP) PO SCH (10:20)
[2016-07-02] MEDS: ALLOPURINOL 100 MG TABLET (FP) PO SCH (10:21)
[2016-07-02] MEDS: TORSEMIDE 20 MG TABLET (FP) PO SCH ×2 (10:21→22:13)
[2016-07-02] MEDS: CHOLECALCIFEROL (VITAMIN D3) 1,000 UNIT TABLET (FP) PO SCH (10:21)
[2016-07-02] MEDS: RIVAROXABAN 15 MG TABLET PO SCH (10:22)
[2016-07-02] MEDS: VANCOMYCIN 1,250 MG in DEXTROSE 5%-WATER - 250 ML IVPB SCH (13:53)
[2016-07-02] MEDS: ATORVASTATIN CA 40 MG TABLET (FP) PO SCH (22:13)
[2016-07-02] MEDS: traZODone HCL 50 MG TABLET (FP) PO SCH (22:13)
[2016-07-02] MEDS: FLUoxetine HCL 20 MG CAPSULE (FP) PO SCH (22:14)
[2016-07-03] MEDS: CEFAZOLIN (PRE-DOCKED) 50 ML IVPB SCH ×3 (02:58→17:20)
[2016-07-03] MEDS: oxyCODONE HCL 5 MG TABLET PO PRN ×4 (05:31→21:51)
[2016-07-03] MEDS ORDERED: PT OWN MED DRAWER 7, Y5N ONE ×5 (05:59→20:57)
[2016-07-03] MEDS: NON-FORMULARY MED SQ SCH (06:45)
[2016-07-03] MEDS: ASPIRIN 81 MG CHEWABLE TABLETS PO SCH (06:45)
[2016-07-03] MEDS: HUMULIN R U INSULIN SQ SCH ×4 (06:46→22:48)
[2016-07-03 08:24] LABS: ALBUMIN 2.3 g/dl (3.4-5.0); CALCIUM 8.2 mg/dL (8.5-10.1)
[2016-07-03 08:27] LABS: BILIRUBIN,TOTAL 0.7 mg/dL (0.2-1.0); COCKROFT - GAULT 72.45; CREATININE 1.7 mg/dL (0.7-1.3); TOT PROT 6.2 g/dl (6.4-8.2)
--- NOTE | 2016-07-03 11:04 | PN ---
Progress Note (short form) - Note Progress Note: no complaints arm unchnaged sono with abscess Vital Signs Period Temp Pulse Resp BP Sys/Mcconnell Pulse Ox Last 24 Hr 97.6 F-98.6 F 69-77 16-20 108-139/55-72 96 cor-rrr lungs clear abd soft,nt ext erythema induration of the forearm unchanged a/p soft tissue infection now abscess surgical consult for drainage f/u cultures of abscess continue vanco/cefazolin cardiomyopathy PPM/AICD CKD
[2016-07-03] MEDS: ALBUTEROL SO4 2.5/IPRATROPIUM 0.5 INH SOL 3 ML VIAL.NEB. NEB PRN (11:15)
[2016-07-03] MEDS: TAMSULOSIN HCL 0.4 MG CAP.ER.24H (FP) PO SCH (11:58)
[2016-07-03] MEDS: CHOLECALCIFEROL (VITAMIN D3) 1,000 UNIT TABLET (FP) PO SCH (11:58)
[2016-07-03] MEDS: CARVEDILOL 6.25 MG TABLET (FP) PO SCH ×3 (11:58→22:47)
[2016-07-03] MEDS: ALLOPURINOL 100 MG TABLET (FP) PO SCH (11:58)
[2016-07-03] MEDS: COLCHICINE 0.6 MG TABLET (FP) PO SCH (11:59)
[2016-07-03] MEDS: RIVAROXABAN 15 MG TABLET PO SCH (11:59)
[2016-07-03] MEDS: TORSEMIDE 20 MG TABLET (FP) PO SCH ×2 (11:59→21:52)
--- NOTE | 2016-07-03 12:58 | CONSULT ---
- Consultation REQUESTING PROVIDER: Selena Banerjee MD CONSULT REQUEST: We have been asked to surgically evaluate this patient for management of an ABSSSI of the left forearm. PCP:Yokasta Banerjee HISTORY OF PRESENT ILLNESS: 61 y/o male w/ # co-morbid conditions including IDDDM presented w/ pain and swelling odf the left forearm after insulin injection in the area; needle ?? broke off in the skin but was not seen on x ray ; since he has been here pain and swelling have increased; US done today shows an abscess. PMHx: as noted; CAD;NIDDM;AICD PSHx: CABG Home Medications Medication Instructions Recorded Acetaminophen with Codeine 1 each PO Q4HWA PRN 06/24/16 [Acetaminophen-Cod #3 Tablet] Allopurinol [Zyloprim -] 100 mg PO DAILY 06/24/16 Aspirin [ASA -] 81 mg PO AM 06/24/16 Atorvastatin Calcium 40 mg PO HS 06/24/16 Carvedilol [Coreg -] 6.25 mg PO BID 06/24/16 Cholecalciferol (Vitamin D3) 1,000 mg PO DAILY 06/24/16 [Vitamin D3 -] Colchicine 0.6 mg PO DAILY 06/24/16 Famotidine/Ca Carb/Mag Hydrox 1 each PO AM 06/24/16 [Pepcid Complete Tablet Chew] Fluoxetine HCl [Prozac] 40 mg PO HS 06/24/16 Insulin (Levemir) [Levemir Vial] 70 unit SQ AM 06/24/16 Insulin Regular, Human [Humulin R 15 - 20 unit SQ AC 06/24/16 U-500 Kwikpen] Ipratropium/Albuterol Sulfate 3 ml IH DAILY PRN 06/24/16 [Iprat-Albut 0.5-3(2.5) mg/3 ml] Liraglutide [Victoza -] 1.8 mg SQ DAILY@0700 06/24/16 Lorazepam 0.5 mg PO HS 06/24/16 Oxycodone HCl/Acetaminophen 1 each PO Q6H PRN 06/24/16 [Oxycodone-Acetaminophen 5-325] Rivaroxaban [Xarelto -] 15 mg PO DAILY 06/24/16 Sennosides/Docusate Sodium [Senna 8.6 mg PO HS 06/24/16 Laxative Tablet] Tamsulosin HCl [Flomax] 0.4 mg PO DAILY 06/24/16 Torsemide 200 mg PO DAILY 06/24/16 Trazodone HCl 50 mg PO HS 06/24/16 Allergies Allergy/AdvReac Type Severity Reaction Status Date / Time Iodinated Contrast Media - Allergy Verified 05/26/16 14:58 Oral and [Iodinated Contrast Media - IV Dye] raw fruits/vegetables Allergy Intermediate Rash Uncoded 05/26/16 14:58 iv contrast dye Allergy Uncoded 05/26/16 14:58 PHYSICAL EXAM: GENERAL: Awake, alert, and fully oriented, in no acute distress. HEAD: Normal with no signs of trauma. EYES: PERRL, sclera anicteric, conjunctiva clear. NECK: Normal ROM, supple without lymphadenopathy, JVD, or masses. MUSCULOSKELETAL: In wheelchair NEUROLOGICAL: Normal speech, gait not observed. PSYCH: Cooperative. Good eye contact. Appropriate mood and affect. SKIN: Warm, dry, normal turgor, erythema and ttp and fluctuance of the left volar forearm; associated edema and induration are present. Vital Signs Temperature 98.6 F 07/03/16 06:57 Pulse Rate 69 07/03/16 06:57 Respiratory Rate 20 07/03/16 06:57 Blood Pressure 108/72 07/03/16 06:57 O2 Sat by Pulse Oximetry (%) 96 07/02/16 21:00 Lab Results WBC 5.8 K/mm3 (4.0-10.0) 07/01/16 07:30 RBC 3.54 M/mm3 (4.00-5.60) L 07/01/16 07:30 Hgb 10.9 GM/dL (11.7-16.9) L 07/01/16 07:30 Hct 32.2 % (35.4-49) L 07/01/16 07:30 MCV 91.0 fl (80-96) 07/01/16 07:30 MCHC 33.9 g/dl (32.0-35.9) 07/01/16 07:30 RDW 17.6 % (11.9-15.9) H 07/01/16 07:30 Plt Count 173 K/MM3 (134-434) 07/01/16 07:30 Sodium 142 mmol/L (136-145) 07/03/16 06:30 Potassium 3.6 mmol/L (3.5-5.1) 07/03/16 06:30 Chloride 99 mmol/L (98-107) 07/03/16 06:30 Carbon Dioxide 33 mmol/L (21-32) H 07/03/16 06:30 Anion Gap 10 (8-16) 07/03/16 06:30 BUN 37 mg/dL (7-18) H 07/03/16 06:30 Creatinine 1.7 mg/dL (0.7-1.3) H 07/03/16 06:30 Random Glucose 152 mg/dL (74-106) H D 07/03/16 06:30 Calcium 8.2 mg/dL (8.5-10.1) L 07/03/16 06:30 INR 1.09 (0.82-1.09) 06/24/16 07:10 IMP: ABSSSI of the left forearm. PLAN: I and D in OR 07/04/16; r/b/t/a's d/w the patient and his . Tico Albarran MD FACS Visit type - Case Type Case Type: ED Admission - Emergency Emergency Visit: Yes ED Registration Date: 06/24/16 Care time: The patient presented to the Emergency Department on the above date and was hospitalized for further evaluation of their emergent condition. - New patient This patient is new to me today: Yes Date on this admission: 07/03/16 - Critical Care Critical Care patient: No
--- NOTE | 2016-07-03 13:55 | PN ---
Teaching Attending Note Name of Resident: Stacia Wharton ATTENDING PHYSICIAN STATEMENT I saw and evaluated the patient. I reviewed the resident's note and discussed the case with the resident. I agree with the resident's findings and plan as documented. SUBJECTIVE:states mobility in the arm has improved but arm remains tender. states no drainage. no CP,SOB,fever, chills OBJECTIVE: Last Vital Signs Temp Pulse Resp BP Pulse Ox 98.6 F 69 20 108/72 96 07/03/16 06:57 07/03/16 06:57 07/03/16 06:57 07/03/16 06:57 07/02/16 21:00 General NAD Extremities circumferential erythema of LUE, +induration no drainage. good ROM of wrist and elbow ASSESSMENT AND PLAN: 61 yo M with PMH of chronic systolic heart failure, CAD, [place], 4 vessel CABG, ischemic cardiomyopathy, AICD, PSVT, type 2 DM, COPD, chronic hypoxic respiratory failure, stage 3 CKD, ascites who presented to the ER and was admitted for further evaluation of their emergent condition 1. Left forearm cellulitis-U/s performed this AM and + 6x1.3x4cm abscess. surgery consulted. NPO tonight for I&D in the OR tomorrow. on Vanco/cefazolin. vanco trough prior to 4th dose (07/05). pain control. ID on board. 2. Transaminitis- passage of gallstone vs medication induced. remains asymptomatic. alk phos stable. LFT normalized. U/s negative. monitor 3. L shoulder pain- s/p mechanical fall. XR negative for acute fracture/ subluxation. PT as outpatient 4. Hypoglycemia-now hyperglycemic. insulin being monitored by endocrine. to call endocrine for further adjustment to diabetic medications 5. Acute normocytic anemia-stable. cont to monitor. no signs of bleeding 6. Afib- rate controlled. on xarelto. 7. dvt ppx- hold xarelto in preparation for procedure tomorrow
[2016-07-03] MEDS: VANCOMYCIN 1,250 MG in DEXTROSE 5%-WATER - 250 ML IVPB SCH (14:28)
--- NOTE | 2016-07-03 17:36 | PN ---
Physical Exam: SUBJECTIVE: Patient seen and examined by me at bedside. No overnight events noted. Patient offers no complaints and reports he is able to move his arm without much pain today. Otherwise, patient denies fever, chills, nausea, vomiting, chest pain, palpitations, shortness of breath, abdominal pain. OBJECTIVE: Vital Signs Period Temp Pulse Resp BP Sys/Mcconnell Pulse Ox Last 24 Hr 98.2 F-99.4 F 69-76 19-20 108-139/55-72 96-97 GENERAL: Awake, alert, and fully oriented, in no acute distress. LUNGS: Distant breath sounds throughout lung bases bilaterally with mild wheezing. No accessory muscle use. HEART: Decreased heart sounds and decreased S1 and S2 without murmur, rub or gallop due to patients body habitus. ABDOMEN: Obese Soft, distended, nontender, no guarding, no rebound, no masses. LOWER EXTREMITIES: 1+ pitting edema of bilateral feet and knees. SKIN: Erythema of extensive surface of left forearm at the injection site with (+) induration and edema. Able to flex the arm without pain. Laboratory Results - last 24 hr 07/02/16 07/02/16 07/03/16 17:30 22:08 03:39 Sodium Potassium Chloride Carbon Dioxide Anion Gap BUN Creatinine Creat Clearance w eGFR POC Glucometer 211 443 203 Random Glucose Calcium Total Bilirubin AST ALT Alkaline Phosphatase Total Protein Albumin 07/03/16 07/03/16 07/03/16 05:34 06:30 13:00 Sodium 142 Potassium 3.6 Chloride 99 Carbon Dioxide 33 H Anion Gap 10 BUN 37 H Creatinine 1.7 H Creat Clearance w eGFR 41.18 POC Glucometer 159 277 Random Glucose 152 H D Calcium 8.2 L Total Bilirubin 0.7 D AST 45 H D ALT 48 D Alkaline Phosphatase 551 H Total Protein 6.2 L Albumin 2.3 L Active Medications Generic Name Dose Route Start Last Admin Trade Name Freq PRN Reason Stop Dose Admin Albuterol/Ipratropium 1 amp 06/24/16 17:53 07/03/16 11:15 Duoneb - NEB 1 amp DAILY PRN Administration ASTHMA Allopurinol 100 mg 06/24/16 18:00 07/03/16 11:58 Zyloprim - PO 100 mg DAILY MAGEN Administration Atorvastatin Calcium 40 mg 06/24/16 22:00 07/02/16 22:13 Lipitor - PO 40 mg HS MAGEN Administration Carvedilol 6.25 mg 06/24/16 22:00 07/03/16 11:58 Coreg - PO 6.25 mg BID MAGEN Administration Cholecalciferol 1,000 unit 06/24/16 19:30 07/03/16 11:58 Vitamin D3 - PO 1,000 unit DAILY MAGEN Administration Colchicine 0.6 mg 06/24/16 18:00 07/03/16 11:59 Colcrys - PO 0.6 mg DAILY MAGEN Administration Fluoxetine HCl 40 mg 06/24/16 22:00 07/02/16 22:14 Prozac - PO 40 mg HS MAGEN Administration Cefazolin Sodium 50 mls @ 100 mls/hr 06/29/16 18:00 07/03/16 17:20 Ancef 1gm Ivpb (Pre-Docked) IVPB 100 mls/hr Q8H-IV MAGEN Administration Vancomycin HCl 1,250 mg/ 250 mls @ 166.667 mls/hr 07/02/16 14:00 07/03/16 14:28 Dextrose IVPB 166.667 mls/hr Q24H MAGEN Administration Protocol Non-Formulary Medication 50 each 06/28/16 13:06 07/03/16 06:45 Non-Formulary Med SQ 50 each AM MAGEN Administration Humulin R U-500 0 each 06/29/16 06:06 07/03/16 11:05 Insulin SQ 15 each ACHS MAGEN Administration Protocol Oxycodone HCl 5 mg 06/30/16 20:58 07/03/16 17:19 Roxicodone - PO 5 mg Q4H PRN Administration PAIN Tamsulosin HCl 0.4 mg 06/25/16 10:00 07/03/16 11:58 Flomax - PO 0.4 mg DAILY MAGEN Administration Torsemide 40 mg 06/24/16 22:00 07/03/16 11:59 Demadex - PO 40 mg BID MAGEN Administration Trazodone HCl 100 mg 06/24/16 22:00 07/02/16 22:13 Desyrel - PO 100 mg HS MAGEN Administration IMAGES: X-ray of left forearm (06/24/16): No sign of foreign body or soft tissue injury . No fractures, subluxation, or bone destruction. Chest X-ray(06/24/16): Cardiomegaly. Bilateral congestive changes with left pacemaker and sternal sutures and clips Duplex of Left Upper Extremity (06/26/16): Negative for DVT Left Shoulder X-ray (06/27/16): No dislocation, acute fractures, or bone deformity U/S of Left Arm (07/03/16): 6x1.3x4cm abscess of left forearm ASSESSMENT/PLAN: Patient is a 61 year old male with a PMHx of Systolic CHF, CAD s/p [place] w/ 4 vessel CABG, AICD, Paroxysmal A.flutter, IDDM, COPD on home 02, CKD, and Ascites secondary to End stage systolic congestive heart failure who presented for left forearm pain, tenderness, swelling, and erythema. Patient admitted for Cellulitis of the left forearm. Cellulitis of left forearm -Continue IV Cefazolin 1gm Q8H day #4 and Vancomycin 1250mg day #7 -Blood cultures negative -U/S revealed abscess formation of left arm -Surgery consult placed for I&D. On NPO with blood thinners and antiplatelets on hold -Continue arm elevation and physical therapy Left Shoulder Pain s/p Fall- Acute -X-ray negative fort acute pathology -Continue Physical Therapy -Pain control with Roxicodone 5mg Q6H PRN Ascites secondary to end stage systolic CHF- Chronic -U/S of abdomen ordered to rule out ascites was negative -Continue to monitor CMP Increasing Alkaline Phosphatase and LFT's secondary to possible medication induced vs. gallstone passage vs. congestive hepatopathy from end stage systolic CHF -Today >500 -Abdominal U/S revealed contracted gallbladder with gallstones -Hepatitis panel negative done on 05/2016 and 11/2015 -Iron studies done 05/2016 -Patient has a history of cholelithiasis -Unasyn has a common side effect of elevated LFT's. Unasyn stopped and switched to IV Cefazolin 1gm Q8H, as per ID. -Will contineu to monitor Chronic severe LV systolic CHF with ischemic cardiomyopathy- Chronic -Continue Torsemide 100mg -Continue Coreg 6.25mg BID -ASA on hold for procedure tomorrow -Continue Atorvastatin 40mg daily -Last TTE (12/07/15) revealed severe LV systolic dysfunction with global hypokinesia, mild MR, mild to moderate TR. moderate pulmonary HTN HTN- Chronic -Continue Coreg 6.25mg daily -Continue to monitor BP Paroxysmal atrial flutter- Chronic -Xarelto 15mg (dosed for renal function) on hold due to procedure tomorrow -Continue Coreg 6.25mg CAD s/p 4 vessel CABG, hx of cardiac arrest- Chronic -ASA 81mg on hold due to procedure tomorrow - Continue Lipitor 40mg COPD on home 02 with history of Stage 1 Lung cancer- Chronic -Continue 2L 02 PRN -Continue Ipratropium/Albuterol IDDM type II- Chronic -Continue with his Humulin and BASAGLAR -ISS -BGM CKD- Chronic -Baseline Creatinine 2.0 -Today 1.7 -Daily BMP -Continue to monitor Gout- Chronic -Continue Allopurinol 100mg daily -Continue Colchicine 0.6 mg daily for maintenance therapy BPH-Chronic -Continue Flomax 0.4mg daily Anxiety/Depression- Chronic -Continue Trazodone 100mg -Continue Prozac 40mg F/E/N -On no fluids -Electrolytes wnl -NPO after midnight for I&D tomorrow Prophylaxis -Xarelto 15mg for DVT on hold for I&D tomorrow Disposition -I&D of left forearm scheduled for tomorrow. Visit type - Emergency Visit Emergency Visit: Yes ED Registration Date: 06/24/16 Care time: The patient presented to the Emergency Department on the above date and was hospitalized for further evaluation of their emergent condition. - New Patient This patient is new to me today: No - Critical Care Critical Care patient: No
[2016-07-03] MEDS: ATORVASTATIN CA 40 MG TABLET (FP) PO SCH (21:52)
[2016-07-03] MEDS: FLUoxetine HCL 20 MG CAPSULE (FP) PO SCH (21:52)
[2016-07-03] MEDS: traZODone HCL 50 MG TABLET (FP) PO SCH (21:54)
[2016-07-04] MEDS: CEFAZOLIN (PRE-DOCKED) 50 ML IVPB SCH ×3 (02:03→18:11)
[2016-07-04] MEDS: HUMULIN R U INSULIN SQ SCH (06:54)
[2016-07-04] MEDS: NON-FORMULARY MED SQ SCH ×4 (06:55→22:03)
[2016-07-04] MEDS ORDERED: LIDOCAINE HCL 1%, 10 MG/ML (20ML VIAL) ONE (07:29)
[2016-07-04] MEDS ORDERED: BUPIVACAINE HCL/PF 0.5% (5MG/ML) 10 ML VIAL ONE (07:29)
[2016-07-04] MEDS ORDERED: PROPOFOL 20 ML ONE ×2 (07:35→07:48)
[2016-07-04] MEDS ORDERED: LIDOCAINE HCL 1%, 10 MG/ML (20ML VIAL) IJ ONE (07:53)
[2016-07-04] MEDS ORDERED: BUPIVACAINE HCL/PF 0.5% (5MG/ML) 10 ML VIAL IJ ONE (07:53)
--- NOTE | 2016-07-04 07:54 | PN ---
Physical Exam: SUBJECTIVE: Patient currently in the OR for I&D of left forearm abscess. OBJECTIVE: Vital Signs Period Temp Pulse Resp BP Sys/Mcconnell Pulse Ox Last 24 Hr 97.8 F-99.4 F 66-78 18-20 99-118/50-65 97-97 Patient in OR and unable to perform Physical Exam Laboratory Results - last 24 hr 07/03/16 07/03/16 07/03/16 06:30 13:00 17:40 Sodium 142 Potassium 3.6 Chloride 99 Carbon Dioxide 33 H Anion Gap 10 BUN 37 H Creatinine 1.7 H Creat Clearance w eGFR 41.18 POC Glucometer 277 169 Random Glucose 152 H D Calcium 8.2 L Total Bilirubin 0.7 D AST 45 H D ALT 48 D Alkaline Phosphatase 551 H Total Protein 6.2 L Albumin 2.3 L 07/03/16 07/04/16 22:41 06:02 Sodium Potassium Chloride Carbon Dioxide Anion Gap BUN Creatinine Creat Clearance w eGFR POC Glucometer 116 117 Random Glucose Calcium Total Bilirubin AST ALT Alkaline Phosphatase Total Protein Albumin Active Medications Generic Name Dose Route Start Last Admin Trade Name Freq PRN Reason Stop Dose Admin Albuterol/Ipratropium 1 amp 06/24/16 17:53 07/03/16 11:15 Duoneb - NEB 1 amp DAILY PRN Administration ASTHMA Allopurinol 100 mg 06/24/16 18:00 07/03/16 11:58 Zyloprim - PO 100 mg DAILY MAGEN Administration Atorvastatin Calcium 40 mg 06/24/16 22:00 07/03/16 21:52 Lipitor - PO 40 mg HS MAGEN Administration Carvedilol 6.25 mg 06/24/16 22:00 07/03/16 22:47 Coreg - PO Not Given BID MAGEN Cholecalciferol 1,000 unit 06/24/16 19:30 07/03/16 11:58 Vitamin D3 - PO 1,000 unit DAILY MAGEN Administration Colchicine 0.6 mg 06/24/16 18:00 07/03/16 11:59 Colcrys - PO 0.6 mg DAILY MAGEN Administration Fluoxetine HCl 40 mg 06/24/16 22:00 07/03/16 21:52 Prozac - PO 40 mg HS MAGEN Administration Cefazolin Sodium 50 mls @ 100 mls/hr 06/29/16 18:00 07/04/16 02:03 Ancef 1gm Ivpb (Pre-Docked) IVPB 100 mls/hr Q8H-IV MAGEN Administration Vancomycin HCl 1,250 mg/ 250 mls @ 166.667 mls/hr 07/02/16 14:00 07/03/16 14:28 Dextrose IVPB 166.667 mls/hr Q24H MAGEN Administration Protocol Non-Formulary Medication 50 each 06/28/16 13:06 07/04/16 06:55 Non-Formulary Med SQ Not Given AM MAGEN Humulin R U-500 0 each 06/29/16 06:06 07/04/16 06:54 Insulin SQ 5 each ACHS MAGEN Administration Protocol Oxycodone HCl 5 mg 06/30/16 20:58 07/03/16 21:51 Roxicodone - PO 5 mg Q4H PRN Administration PAIN Tamsulosin HCl 0.4 mg 06/25/16 10:00 07/03/16 11:58 Flomax - PO 0.4 mg DAILY MAGEN Administration Torsemide 40 mg 06/24/16 22:00 07/03/16 21:52 Demadex - PO 40 mg BID MAGEN Administration Trazodone HCl 100 mg 06/24/16 22:00 07/03/16 21:54 Desyrel - PO 100 mg HS MAGEN Administration IMAGES: X-ray of left forearm (06/24/16): No sign of foreign body or soft tissue injury . No fractures, subluxation, or bone destruction. Chest X-ray(06/24/16): Cardiomegaly. Bilateral congestive changes with left pacemaker and sternal sutures and clips Duplex of Left Upper Extremity (06/26/16): Negative for DVT Left Shoulder X-ray (06/27/16): No dislocation, acute fractures, or bone deformity U/S of Left Arm (07/03/16): 6x1.3x4cm abscess of left forearm ASSESSMENT/PLAN: Patient is a 61 year old male with a PMHx of Systolic CHF, CAD s/p [place] w/ 4 vessel CABG, AICD, Paroxysmal A.flutter, IDDM, COPD on home 02, CKD, and Ascites secondary to End stage systolic congestive heart failure who presented for left forearm pain, tenderness, swelling, and erythema. Patient admitted for Cellulitis of the left forearm. Cellulitis of left forearm -Continue IV Cefazolin 1gm Q8H day #5 and Vancomycin 1250mg day #8 -S/P I&D of left forearm -Cultures pending -Continue arm elevation and physical therapy -Continue pain medication with Roxicodone 10mg Q6H po PRN Left Shoulder Pain s/p Fall- Acute -X-ray negative fort acute pathology -Continue Physical Therapy -Pain control with Roxicodone 10mg Q6H PRN Ascites secondary to end stage systolic CHF- Chronic -U/S of abdomen ordered to rule out ascites was negative -Continue to monitor CMP Increasing Alkaline Phosphatase and LFT's secondary to possible medication induced vs. gallstone passage vs. congestive hepatopathy from end stage systolic CHF -Today 578 -Abdominal U/S revealed contracted gallbladder with gallstones -Hepatitis panel negative done on 05/2016 and 11/2015 -Iron studies done 05/2016 -Patient has a history of cholelithiasis -Unasyn has a common side effect of elevated LFT's. Unasyn stopped and switched to IV Cefazolin 1gm Q8H, as per ID. -Will continue to monitor Chronic severe LV systolic CHF with ischemic cardiomyopathy- Chronic -Continue Torsemide 100mg -Continue Coreg 6.25mg BID -Continue Atorvastatin 40mg daily -Last TTE (12/07/15) revealed severe LV systolic dysfunction with global hypokinesia, mild MR, mild to moderate TR. moderate pulmonary HTN HTN- Chronic -Continue Coreg 6.25mg daily -Continue to monitor BP Paroxysmal atrial flutter- Chronic -Xareolto 15mg -Continue Coreg 6.25mg CAD s/p 4 vessel CABG, hx of cardiac arrest- Chronic -ASA 81mg - Continue Lipitor 40mg COPD on home 02 with history of Stage 1 Lung cancer- Chronic -Continue 2L 02 PRN -Continue Ipratropium/Albuterol IDDM type II- Chronic -Continue with his Humulin and BASAGLAR -ISS -BGM CKD- Chronic -Baseline Creatinine 2.0 -Today 1.7 -Daily BMP -Continue to monitor Gout- Chronic -Continue Allopurinol 100mg daily -Continue Colchicine 0.6 mg daily for maintenance therapy BPH-Chronic -Continue Flomax 0.4mg daily Anxiety/Depression- Chronic -Continue Trazodone 100mg -Continue Prozac 40mg F/E/N -On no fluids -Electrolytes wnl -Diabetic/Sodium controlled diet Prophylaxis -Xarelto 15mg for DVT Disposition -Will need to follow up on culture Visit type - Emergency Visit Emergency Visit: Yes ED Registration Date: 06/24/16 Care time: The patient presented to the Emergency Department on the above date and was hospitalized for further evaluation of their emergent condition. - New Patient This patient is new to me today: No - Critical Care Critical Care patient: No
[2016-07-04] MEDS ORDERED: ONDANSETRON 4 MG/2 ML VIAL IVPUSH PRN ×2 (08:17→09:09)
[2016-07-04 08:29] LABS: MCH 30.7 pg (25.7-33.7); MCHC 33.8 g/dl (32.0-35.9); MEAN PLT VOLUME 9.1 fl (7.5-11.1); PLATELET COUNT 211 K/MM3 (134-434); RDW 17.5 % (11.9-15.9)
--- NOTE | 2016-07-04 08:31 | OP ---
Operative Note - Note: Operative Date: 07/04/16 Pre-Operative Diagnosis: soft tissue abscess left forearm Operation: i and d left forearm soft tissue abscess Surgeon: Tico Albarran Anesthesia: MAC Specimens Removed: c ans s pus abscess only Estimated Blood Loss (mls): 10
[2016-07-04 08:44] LABS: ALBUMIN 2.6 g/dl (3.4-5.0); BILIRUBIN,TOTAL 0.7 mg/dL (0.2-1.0); CALCIUM 8.2 mg/dL (8.5-10.1); COCKROFT - GAULT 72.45; CREATININE 1.7 mg/dL (0.7-1.3); TOT PROT 6.7 g/dl (6.4-8.2)
[2016-07-04 08:49] LABS: INR 1.21 (0.82-1.09); PROTHROMBIN TIME (PATIENT) 13.4 SEC (9.98-11.88)
[2016-07-04] MEDS ORDERED: ALBUTEROL SO4 2.5/IPRATROPIUM 0.5 INH SOL 3 ML VIAL.NEB. NEB PRN (09:09)
[2016-07-04] MEDS ORDERED: PT OWN MED DRAWER 7, Y5N ONE (10:44)
[2016-07-04] MEDS: oxyCODONE HCL 5 MG TABLET PO PRN ×4 (11:00→22:08)
[2016-07-04] MEDS: ALLOPURINOL 100 MG TABLET (FP) PO SCH (11:00)
[2016-07-04] MEDS: CHOLECALCIFEROL (VITAMIN D3) 1,000 UNIT TABLET (FP) PO SCH (11:01)
[2016-07-04] MEDS: COLCHICINE 0.6 MG TABLET (FP) PO SCH (11:05)
[2016-07-04] MEDS: CARVEDILOL 6.25 MG TABLET (FP) PO SCH ×2 (11:05→22:03)
[2016-07-04] MEDS: TAMSULOSIN HCL 0.4 MG CAP.ER.24H (FP) PO SCH (11:05)
[2016-07-04] MEDS: TORSEMIDE 20 MG TABLET (FP) PO SCH ×2 (11:06→17:02)
[2016-07-04] MEDS: VANCOMYCIN 1,250 MG in DEXTROSE 5%-WATER - 250 ML IVPB SCH (13:17)
--- NOTE | 2016-07-04 14:03 | PN ---
Progress Note (short form) - Note Progress Note: s/p incision and drainage of forearm abscess in OR today hand is swollen Vital Signs Period Temp Pulse Resp BP Sys/Mcconnell Pulse Ox Last 24 Hr 97.6 F-98.6 F 69-77 16-20 108-139/55-72 96 cor-rrr lungs clear abd soft,nt ext dressing on forearm, hand swollen- warm able to move his fingers sensation intact CBC, BMP 07/04/16 06:30 07/04/16 06:30 culture pending a/p soft tissue infection now abscess s/p operative drainage f/u cultures cardiomyopathy PPM/AICD CKD
--- NOTE | 2016-07-04 18:20 | PN ---
Teaching Attending Note Name of Resident: Stacia Wharton ATTENDING PHYSICIAN STATEMENT I saw and evaluated the patient. I reviewed the resident's note and discussed the case with the resident. I agree with the resident's findings and plan as documented. SUBJECTIVE: Left arm pain is better. OBJECTIVE: Vital Signs Period Temp Pulse Resp BP Sys/Mcconnell Pulse Ox Last 24 Hr 97.8 F-98.7 F 66-80 16-22 97-128/50-75 97-99 HEART: S1 S2, RRR LUNGS: Clear ABDOMEN: Obese, soft, non-tender, non-distended, normal BS EXTREMITIES: Left forearm dressed. Both legs wrapped ASSESSMENT AND PLAN: This is a 61-year-old man with a history of chronic systolic heart failure, CAD , SC, 4 vessel CABG, ischemic cardiomyopathy, AICD, PSVT, type 2 DM, COPD, chronic hypoxic respiratory failure, stage 3 CKD, ascites who presented to the ER with left forearm pain, swelling, and erythema. 1. Left forearm cellulitis and abscess - Continue Ancef, Vancomycin - s/p I&D today - Follow-up culture 2. Ischemic cardiomyopathy with chronic systolic heart failure - Continue Coreg, Demadex, oxygen - Has AICD 3. CAD, history of SC, CABG, cardiac arrest, AICD - Continue Coreg, Lipitor - Aspirin held for surgery 4. HTN -Continue Coreg, Demadex 5. History of PSVT, possible paroxysmal atrial flutter - Continue Coreg - Xarelto held for surgery 6. Chronic hypoxic respiratory failure - Continue oxygen 7. COPD - Stable - Continue oxygen, DuoNeb as needed 8. Type 2 DM, uncontrolled - Levemir discontinued secondary to hypoglycemia - Continue Humulin R u500 (patient using own) 9. Stage 3 CKD - Stable 10. Depression and anxiety - Continue Prozac, Trazodone 11. History of CVA - Continue Lipitor - Aspirin held for surgery 12. History of gout - Continue Allopurinol, Colchicine 13. Hyponatremia, mild - Likely secondary to Demadex, hyperglycemia - Improved
[2016-07-04] MEDS: ATORVASTATIN CA 40 MG TABLET (FP) PO SCH (22:03)
[2016-07-04] MEDS: FLUoxetine HCL 20 MG CAPSULE (FP) PO SCH (22:03)
[2016-07-04] MEDS: traZODone HCL 50 MG TABLET (FP) PO SCH (22:03)
[2016-07-05] MEDS: CEFAZOLIN (PRE-DOCKED) 50 ML IVPB SCH ×3 (02:28→17:39)
[2016-07-05] MEDS: oxyCODONE HCL 5 MG TABLET PO PRN ×3 (06:36→18:33)
[2016-07-05] MEDS: TORSEMIDE 20 MG TABLET (FP) PO SCH ×2 (06:36→14:46)
[2016-07-05] MEDS: NON-FORMULARY MED SQ SCH ×5 (06:37→21:41)
[2016-07-05] MEDS ORDERED: PT OWN MED DRAWER 7, Y5N ONE ×5 (06:59→21:06)
[2016-07-05 08:01] LABS: MCH 30.9 pg (25.7-33.7); MCHC 33.8 g/dl (32.0-35.9); MEAN CELL VOLUME 91.2 fl (80-96); MEAN PLT VOLUME 8.5 fl (7.5-11.1); PLATELET COUNT 201 K/MM3 (134-434); RDW 17.5 % (11.9-15.9); WHITE BLOOD COUNT 6.1 K/mm3 (4.0-10.0)
[2016-07-05 08:19] LABS: ALBUMIN 2.6 g/dl (3.4-5.0); CALCIUM 8.6 mg/dL (8.5-10.1); COCKROFT - GAULT 76.98; CREATININE 1.6 mg/dL (0.7-1.3)
[2016-07-05 08:21] LABS: BILIRUBIN,TOTAL 0.7 mg/dL (0.2-1.0); TOT PROT 6.6 g/dl (6.4-8.2)
--- NOTE | 2016-07-05 08:50 | PN ---
Progress Note (short form) - Note Progress Note: ID Offers multiple complaints mostly having to do with his care here Yesterday I & D left forearm abscess Selected Entries 07/05/16 06:49 Temperature 98.4 F Pulse Rate 64 Respiratory 20 Rate Blood Pressure 94/54 Left forearm dressing sanguinous drainage some swelling hand arm better Microbiology 06/26/16 15:00 Urine - Urine Clean Catch Urine Culture - Final NO GROWTH OBTAINED 06/24/16 07:28 Blood - Peripheral Venous Blood Culture - Final NO GROWTH AFTER 5 DAYS INCUBATION 06/24/16 07:25 Blood - Peripheral Venous Blood Culture - Final NO GROWTH AFTER 5 DAYS INCUBATION Laboratory Tests 07/05/16 06:00 WBC 6.1 Hgb 10.9 L Hct 32.2 L Plt Count 201 Assesment Hopefully can be discharged on oral therapy today and home if Dr Albarran ok with it
[2016-07-05] MEDS: ASPIRIN COATED 81 MG TABLET.EC PO SCH (10:20)
[2016-07-05] MEDS: CHOLECALCIFEROL (VITAMIN D3) 1,000 UNIT TABLET (FP) PO SCH (10:21)
[2016-07-05] MEDS: COLCHICINE 0.6 MG TABLET (FP) PO SCH (10:21)
[2016-07-05] MEDS: CARVEDILOL 6.25 MG TABLET (FP) PO SCH ×2 (10:21→21:41)
[2016-07-05] MEDS: RIVAROXABAN 15 MG TABLET PO SCH (10:21)
[2016-07-05] MEDS: TAMSULOSIN HCL 0.4 MG CAP.ER.24H (FP) PO SCH (10:21)
[2016-07-05] MEDS: ALLOPURINOL 100 MG TABLET (FP) PO SCH (10:21)
--- NOTE | 2016-07-05 10:33 | PN ---
Progress Note (short form) - Note Progress Note: Surgery- Dr. Albarran Patient seen and examined. Patient states he is having some pain in his forearm and would like more ice. He denies F/C/N/V. Last Vital Signs Temp Pulse Resp BP Pulse Ox 98.4 F 64 20 94/54 98 07/05/16 06:49 07/05/16 06:49 07/05/16 06:49 07/05/16 06:49 07/04/16 21:00 CBC, BMP 07/05/16 06:00 07/05/16 06:00 Exam: Gen: NAD Left UE: dressing removed with sanguineous drainage, s/p I&D, approx 4cm incision with 2-3 cm undermining, clean, some surrounding erythema, packing and dressing replaced, patient tolerated well, edema noted in hand, patient states this is improving A/P POD#1 s/p I&D soft tissue abscess left forearm PAcking and dressing replaced on a rounds COntinue daily dressing changes with packing- VNS Continue abx per ID May be discharged from surgical standpoint Pain control Patient discussed with Dr. Albarran
--- NOTE | 2016-07-05 13:02 | PN ---
Progress Note (short form) - Note Progress Note: Anesthesia POD#1 S/P I & D of abscess forearm left under MAC awake,alert,sitting in the bed,no N/V seen. Pain is under control. No complications to anesthesia seen. Jessica Jiménez MD.
--- NOTE | 2016-07-05 13:29 | OP ---
DATE OF OPERATION: 07/04/2016 PREOPERATIVE DIAGNOSIS: Soft tissue abscess left volar forearm. POSTOPERATIVE DIAGNOSIS: Soft tissue abscess left volar forearm. PROCEDURE PERFORMED: Incision and drainage of abscess. SURGEON: Tico Albarran MD. ANESTHESIA: Local with IV sedation. OPERATIVE FINDINGS: There was an extensive soft tissue abscess in the volar aspect of the left forearm. The rest of the findings were unremarkable. PROCEDURE IN DETAIL: The patient was placed on the operating table in supine position. After adequate intravenous sedation, the area over the abscess was prepped with Betadine and draped in a sterile fashion. Xylocaine 1% local anesthesia was infiltrated into the operative field and then using the scalpel incision was carried out through skin and subcutaneous tissue into the abscess cavity. The contents of the cavity were sent for culture and sensitivity. All loculations were digitally broken up and then the wound copiously irrigated with sterile saline. Hemostasis was verified. Then, the incision was packed with saline-soaked Kerlix gauze. An Isaac Bandage was then placed and the procedure terminated at this point. The patient was transferred to the Post-Anesthesia Care Unit in stable condition, awake and alert. ESTIMATED BLOOD LOSS: Approximately 10 mL. FLUIDS: Crystalloid. DRAINS: None. SPECIMEN: Culture and sensitivity of abscess sent to Microbiology. I, Tico Albarran, was physically present in the operating room from the time the patient was placed on the operating table until he was transferred to the Post-Anesthesia Care Unit with my accompaniment. MD ANDRA Diaz/[id number]
[2016-07-05] MEDS: VANCOMYCIN 1,250 MG in DEXTROSE 5%-WATER - 250 ML IVPB SCH (14:46)
--- NOTE | 2016-07-05 16:22 | PN ---
Teaching Attending Note Name of Resident: Stacia Wharton ATTENDING PHYSICIAN STATEMENT I saw and evaluated the patient. I reviewed the resident's note and discussed the case with the resident. I agree with the resident's findings and plan as documented. SUBJECTIVE: OBJECTIVE: Vital Signs Period Temp Pulse Resp BP Sys/Mcconnell Pulse Ox Last 24 Hr 98 F-98.8 F 64-78 18-20 94-113/51-68 98-99 HEART: S1 S2, RRR LUNGS: Clear ABDOMEN: Obese, soft, non-tender, non-distended, normal BS EXTREMITIES: Left forearm dressed. Both legs wrapped ASSESSMENT AND PLAN: This is a 61-year-old man with a history of chronic systolic heart failure, CAD , OR, 4 vessel CABG, ischemic cardiomyopathy, AICD, PSVT, type 2 DM, COPD, chronic hypoxic respiratory failure, stage 3 CKD, ascites who presented to the ER with left forearm pain, swelling, and erythema. 1. Left forearm cellulitis and abscess - s/p I&D 07/04 - Wound culture growing MSSA - antibiotics as per ID - Discharge home with VNS for wound care once on oral antibiotics 2. Ischemic cardiomyopathy with chronic systolic heart failure - Continue Coreg, Demadex, oxygen - Has AICD 3. CAD, history of OR, CABG, cardiac arrest, AICD - Continue aspirin, Coreg, Lipitor 4. HTN -Continue Coreg, Demadex 5. History of PSVT, possible paroxysmal atrial flutter - Continue Coreg, Xarelto 6. Chronic hypoxic respiratory failure - Continue oxygen 7. COPD - Stable - Continue oxygen, DuoNeb as needed 8. Type 2 DM, uncontrolled - Levemir discontinued secondary to hypoglycemia - Continue Humulin R u500 (patient using own) 9. Stage 3 CKD - Stable 10. Depression and anxiety - Continue Prozac, Trazodone 11. History of CVA - Continue aspirin, Lipitor 12. History of gout - Continue Allopurinol, Colchicine 13. Hyponatremia, mild - Likely secondary to Demadex, hyperglycemia - Improved
--- NOTE | 2016-07-05 16:55 | PN ---
Physical Exam: SUBJECTIVE: Patient seen and examined by me at bedside. No overnight events noted. S/P I&D of left forearm abscess day #1. Reports his arm is feeling better and less swelling but does report some pain. Otherwise, patient denies fever, chills, nausea, vomiting, chest pain, palpitations, shortness of breath. OBJECTIVE: Vital Signs Period Temp Pulse Resp BP Sys/Mcconnell Pulse Ox Last 24 Hr 98 F-98.8 F 64-78 18-20 94-113/51-68 98-99 GENERAL: Awake, alert, and fully oriented, in no acute distress. LUNGS: Distant breath sounds throughout lung bases bilaterally with mild wheezing. No accessory muscle use. HEART: Decreased heart sounds and decreased S1 and S2 without murmur, rub or gallop due to patients body habitus. ABDOMEN: Obese Soft, distended, nontender, no guarding, no rebound, no masses. LOWER EXTREMITIES: non pitting edema of bilateral feet and knees. SKIN: Swelling of the right arm with wound dressing in the right forearm with serosanguinous drainage. Laboratory Results - last 24 hr 07/04/16 07/04/16 07/05/16 16:58 22:02 00:11 WBC RBC Hgb Hct MCV MCHC RDW Plt Count MPV Sodium Potassium Chloride Carbon Dioxide Anion Gap BUN Creatinine Creat Clearance w eGFR POC Glucometer 126 62 51 Random Glucose Calcium Total Bilirubin AST ALT Alkaline Phosphatase Total Protein Albumin Random Vancomycin 07/05/16 07/05/16 07/05/16 02:28 06:00 06:00 WBC 6.1 RBC 3.53 L Hgb 10.9 L Hct 32.2 L MCV 91.2 MCHC 33.8 RDW 17.5 H Plt Count 201 MPV 8.5 Sodium 140 Potassium 3.5 Chloride 99 Carbon Dioxide 33 H Anion Gap 8 BUN 34 H Creatinine 1.6 H Creat Clearance w eGFR 44.16 POC Glucometer 116 Random Glucose 99 D Calcium 8.6 Total Bilirubin 0.7 AST 39 H D ALT 36 D Alkaline Phosphatase 498 H Total Protein 6.6 Albumin 2.6 L Random Vancomycin 07/05/16 07/05/16 07/05/16 06:34 12:06 13:05 WBC RBC Hgb Hct MCV MCHC RDW Plt Count MPV Sodium Potassium Chloride Carbon Dioxide Anion Gap BUN Creatinine Creat Clearance w eGFR POC Glucometer 112 201 Random Glucose Calcium Total Bilirubin AST ALT Alkaline Phosphatase Total Protein Albumin Random Vancomycin 13.648 Active Medications Generic Name Dose Route Start Last Admin Trade Name Freq PRN Reason Stop Dose Admin Albuterol/Ipratropium 1 amp 07/04/16 09:09 Duoneb - NEB DAILY PRN ASTHMA Allopurinol 100 mg 07/04/16 10:00 07/05/16 10:21 Zyloprim - PO 100 mg DAILY MAGEN Administration Aspirin 81 mg 07/05/16 10:00 07/05/16 10:20 Ecotrin - PO 81 mg DAILY MAGEN Administration Atorvastatin Calcium 40 mg 07/04/16 22:00 07/04/16 22:03 Lipitor - PO 40 mg HS MAGEN Administration Carvedilol 6.25 mg 07/04/16 10:45 07/05/16 10:21 Coreg - PO 6.25 mg BID MAGEN Administration Cholecalciferol 1,000 unit 07/04/16 10:00 07/05/16 10:21 Vitamin D3 - PO 1,000 unit DAILY MAGEN Administration Colchicine 0.6 mg 07/04/16 10:45 07/05/16 10:21 Colcrys - PO 0.6 mg DAILY MAGEN Administration Fluoxetine HCl 40 mg 07/04/16 22:00 07/04/16 22:03 Prozac - PO 40 mg HS MAGEN Administration Cefazolin Sodium 50 mls @ 100 mls/hr 07/04/16 10:00 07/05/16 10:21 Ancef 1gm Ivpb (Pre-Docked) IVPB 100 mls/hr Q8H-IV MAGEN Administration Vancomycin HCl 1,250 mg/ 250 mls @ 166.667 mls/hr 07/04/16 14:00 07/05/16 14:46 Dextrose IVPB 166.667 mls/hr Q24H MAGEN Administration Protocol Non-Formulary Medication 0 each 07/04/16 11:00 07/05/16 12:15 Non-Formulary Med SQ 10 each ACHS MAGEN Administration Protocol Non-Formulary Medication 50 each 07/05/16 07:00 07/05/16 06:37 Non-Formulary Med SQ 50 each AM MAGEN Administration Oxycodone HCl 10 mg 07/04/16 17:27 07/05/16 10:55 Roxicodone - PO 10 mg Q4H PRN Administration PAIN Rivaroxaban 15 mg 07/05/16 10:00 07/05/16 10:21 Xarelto - PO 15 mg DAILY MAGEN Administration Tamsulosin HCl 0.4 mg 07/04/16 11:00 07/05/16 10:21 Flomax - PO 0.4 mg DAILY@0830 MAGEN Administration Torsemide 40 mg 07/04/16 10:00 07/05/16 14:46 Demadex - PO 40 mg BIDLASIX MAGEN Administration Trazodone HCl 100 mg 07/04/16 22:00 07/04/16 22:03 Desyrel - PO 100 mg HS MAGEN Administration IMAGES: X-ray of left forearm (06/24/16): No sign of foreign body or soft tissue injury . No fractures, subluxation, or bone destruction. Chest X-ray(06/24/16): Cardiomegaly. Bilateral congestive changes with left pacemaker and sternal sutures and clips Duplex of Left Upper Extremity (06/26/16): Negative for DVT Left Shoulder X-ray (06/27/16): No dislocation, acute fractures, or bone deformity U/S of Left Arm (07/03/16): 6x1.3x4cm abscess of left forearm ASSESSMENT/PLAN: Patient is a 61 year old male with a PMHx of Systolic CHF, CAD s/p CO w/ 4 vessel CABG, AICD, Paroxysmal A.flutter, IDDM, COPD on home 02, CKD, and Ascites secondary to End stage systolic congestive heart failure who presented for left forearm pain, tenderness, swelling, and erythema. Patient admitted for Cellulitis of the left forearm. Cellulitis of left forearm -S/P I&D of left forearm day #1 -Cultures positive for MSSA -Continue IV Cefazolin 1gm Q8H day #6. Last dose tomorrow and may be discharge with PO abx once VNS for wound care is set -Discontinue Vancomycin -Continue arm elevation and physical therapy -Continue pain medication with Roxicodone 10mg Q6H po PRN Left Shoulder Pain s/p Fall- Acute -X-ray negative fort acute pathology -Continue Physical Therapy -Pain control with Roxicodone 10mg Q6H PRN Ascites secondary to end stage systolic CHF- Chronic -U/S of abdomen ordered to rule out ascites was negative -Continue to monitor CMP Increasing Alkaline Phosphatase and LFT's secondary to possible medication induced vs. gallstone passage vs. congestive hepatopathy from end stage systolic CHF -Today 498 -Abdominal U/S revealed contracted gallbladder with gallstones -Hepatitis panel negative done on 05/2016 and 11/2015 -Iron studies done 05/2016 -Patient has a history of cholelithiasis -Unasyn has a common side effect of elevated LFT's. Unasyn stopped and switched to IV Cefazolin 1gm Q8H, as per ID. -Will continue to monitor Chronic severe LV systolic CHF with ischemic cardiomyopathy- Chronic -Continue Torsemide 100mg -Continue Coreg 6.25mg BID -Continue Atorvastatin 40mg daily -Last TTE (12/07/15) revealed severe LV systolic dysfunction with global hypokinesia, mild MR, mild to moderate TR. moderate pulmonary HTN HTN- Chronic -Continue Coreg 6.25mg daily -Continue to monitor BP Paroxysmal atrial flutter- Chronic -Xareolto 15mg -Continue Coreg 6.25mg CAD s/p 4 vessel CABG, hx of cardiac arrest- Chronic -ASA 81mg - Continue Lipitor 40mg COPD on home 02 with history of Stage 1 Lung cancer- Chronic -Continue 2L 02 PRN -Continue Ipratropium/Albuterol IDDM type II- Chronic -Continue with his Humulin and BASAGLAR -ISS -BGM CKD- Chronic -Baseline Creatinine 2.0 -Today 1.6 -Daily BMP -Continue to monitor Gout- Chronic -Continue Allopurinol 100mg daily -Continue Colchicine 0.6 mg daily for maintenance therapy BPH-Chronic -Continue Flomax 0.4mg daily Anxiety/Depression- Chronic -Continue Trazodone 100mg -Continue Prozac 40mg F/E/N -On no fluids -Electrolytes wnl -Diabetic/Sodium controlled diet Prophylaxis -Xarelto 15mg for DVT Disposition -Will set up VNS and discharge tomorrow with PO abx Visit type - Emergency Visit Emergency Visit: Yes ED Registration Date: 06/24/16 Care time: The patient presented to the Emergency Department on the above date and was hospitalized for further evaluation of their emergent condition. - New Patient This patient is new to me today: No - Critical Care Critical Care patient: No
[2016-07-05] MEDS ORDERED: NEOMYCIN/BACI/POLY/HC TOPICAL OINT 15 GM TUBE TP SCH (19:30)
[2016-07-05] MEDS: traZODone HCL 50 MG TABLET (FP) PO SCH (21:40)
[2016-07-05] MEDS: FLUoxetine HCL 20 MG CAPSULE (FP) PO SCH (21:41)
[2016-07-05] MEDS: ATORVASTATIN CA 40 MG TABLET (FP) PO SCH (21:41)
[2016-07-05] MEDS: NEOMYCIN/BACI/POLY/HC TOPICAL OINT 15 GM TUBE TP SCH (23:52)
[2016-07-06] MEDS: CEFAZOLIN (PRE-DOCKED) 50 ML IVPB SCH ×2 (01:53→09:16)
[2016-07-06] MEDS: oxyCODONE HCL 5 MG TABLET PO PRN ×3 (01:54→12:50)
[2016-07-06] MEDS ORDERED: PT OWN MED DRAWER 7, Y5N ONE ×3 (06:30→12:52)
[2016-07-06] MEDS: TORSEMIDE 20 MG TABLET (FP) PO SCH ×2 (06:36→13:27)
[2016-07-06] MEDS: NON-FORMULARY MED SQ SCH ×3 (06:37→12:08)
[2016-07-06 08:19] LABS: MCH 30.4 pg (25.7-33.7); MCHC 33.2 g/dl (32.0-35.9); MEAN CELL VOLUME 91.6 fl (80-96); MEAN PLT VOLUME 8.8 fl (7.5-11.1); PLATELET COUNT 208 K/MM3 (134-434); RDW 17.3 % (11.9-15.9); WHITE BLOOD COUNT 5.3 K/mm3 (4.0-10.0)
[2016-07-06 08:28] LABS: ALBUMIN 2.6 g/dl (3.4-5.0); BILIRUBIN,TOTAL 0.7 mg/dL (0.2-1.0); CALCIUM 8.4 mg/dL (8.5-10.1); COCKROFT - GAULT 72.45; CREATININE 1.7 mg/dL (0.7-1.3); TOT PROT 6.7 g/dl (6.4-8.2)
[2016-07-06] MEDS: CHOLECALCIFEROL (VITAMIN D3) 1,000 UNIT TABLET (FP) PO SCH (09:17)
[2016-07-06] MEDS: COLCHICINE 0.6 MG TABLET (FP) PO SCH (09:17)
[2016-07-06] MEDS: RIVAROXABAN 15 MG TABLET PO SCH (09:17)
[2016-07-06] MEDS: ASPIRIN COATED 81 MG TABLET.EC PO SCH (09:17)
[2016-07-06] MEDS: ALLOPURINOL 100 MG TABLET (FP) PO SCH (09:17)
[2016-07-06] MEDS: TAMSULOSIN HCL 0.4 MG CAP.ER.24H (FP) PO SCH (09:17)
[2016-07-06] MEDS: CARVEDILOL 6.25 MG TABLET (FP) PO SCH (09:17)
[2016-07-06 10:21] VITALS: BP 102/60; PULSE 71; TEMP 97.9
--- NOTE | 2016-07-06 11:33 | PN ---
Progress Note (short form) - Note Progress Note: ID Discussed with housestaff and microbiology Culture from surgery revised report MSSA is now MRSA Clinically he is improved Selected Entries 07/06/16 10:00 Temperature 97.9 F Pulse Rate 71 Blood Pressure 102/60 Assessment Improved Plan Discharge on oral Clindamycin 45omg tid for 5 days Mary TREJO
[2016-07-06] MEDS: NEOMYCIN/BACI/POLY/HC TOPICAL OINT 15 GM TUBE TP SCH (12:11)
--- NOTE | 2016-07-06 12:25 | DS ---
Physical Exam: SUBJECTIVE: Patient seen and examined by me at bedside. No overnight events noted. Patient reports arm is better and he is able to move it around without difficulty. He still has some pain from the I&D site but adequate pain control with pain medications and ice packs. Otherwise, patient denies any fever, chills, nausea, vomiting, abdominal pain, chest pain, palpitations, shortness of breath, dysuria, hematuria. OBJECTIVE: Vital Signs Period Temp Pulse Resp BP Sys/Mcconnell Pulse Ox Last 24 Hr 97.9 F-98.9 F 62-72 18-20 102-117/44-60 99 PHYSICAL EXAM GENERAL: Awake, alert, and fully oriented, in no acute distress. LUNGS: Distant breath sounds throughout lung bases bilaterally with mild wheezing. No accessory muscle use. HEART: Decreased heart sounds and decreased S1 and S2 without murmur, rub or gallop due to patients body habitus. ABDOMEN: Obese Soft, distended, nontender, no guarding, no rebound, no masses. LOWER EXTREMITIES: non pitting edema of bilateral feet and knees. SKIN: Swelling of the right arm with wound dressing in the right forearm with serosanguinous drainage. LABS Laboratory Results - last 24 hr 07/05/16 07/05/16 07/05/16 13:05 16:55 21:40 WBC RBC Hgb Hct MCV MCHC RDW Plt Count MPV Sodium Potassium Chloride Carbon Dioxide Anion Gap BUN Creatinine Creat Clearance w eGFR POC Glucometer 158 212 Random Glucose Calcium Total Bilirubin AST ALT Alkaline Phosphatase Total Protein Albumin Random Vancomycin 13.648 07/06/16 07/06/16 07/06/16 06:35 07:00 07:00 WBC 5.3 RBC 3.64 L Hgb 11.0 L Hct 33.3 L MCV 91.6 MCHC 33.2 RDW 17.3 H Plt Count 208 MPV 8.8 Sodium 140 Potassium 3.4 L Chloride 98 Carbon Dioxide 31 Anion Gap 11 BUN 35 H Creatinine 1.7 H Creat Clearance w eGFR 41.18 POC Glucometer 182 Random Glucose 173 H D Calcium 8.4 L Total Bilirubin 0.7 AST 38 H ALT 32 Alkaline Phosphatase 508 H Total Protein 6.7 Albumin 2.6 L Random Vancomycin 07/06/16 12:05 WBC RBC Hgb Hct MCV MCHC RDW Plt Count MPV Sodium Potassium Chloride Carbon Dioxide Anion Gap BUN Creatinine Creat Clearance w eGFR POC Glucometer 237 Random Glucose Calcium Total Bilirubin AST ALT Alkaline Phosphatase Total Protein Albumin Random Vancomycin IMAGES: X-ray of left forearm (06/24/16): No sign of foreign body or soft tissue injury . No fractures, subluxation, or bone destruction. Chest X-ray(06/24/16): Cardiomegaly. Bilateral congestive changes with left pacemaker and sternal sutures and clips Duplex of Left Upper Extremity (06/26/16): Negative for DVT Left Shoulder X-ray (06/27/16): No dislocation, acute fractures, or bone deformity U/S of Left Arm (07/03/16): 6x1.3x4cm abscess of left forearm HOSPITAL COURSE: Patient is a 61 year old male with a significant PMHx of IDDM, Systolic CHF s/p ICD and 4 vessel CABG who complains of left arm pain, swelling, and erythema after injecting himself with his daily insulin. Patient reports when he was injecting himself with insulin and he thought the needle broke off and remained inside the skin. X-ray revealed no sign of foreign body or soft tissue injury. However, the arm had worsening swelling, erythema, and pain. Patient was started on IV abx Unasyn and Zosyn. Throughout the hospital course patient's Alkaline phosphatase increased and it was likely medicated related. Unasyn was discontinued and patient was switched to Cefazolin. Patient's arm continued to worsen and an U/S of the arm was ordered. U/S of forearm revealed an Abscess and patient was sent to the OR for an I&D with blood cultures sent. Patient continued the IV abx while waiting for the cultures and the arm swelling improved. Blood cultures was positive for MRSA and patient was sent off with PO antibiotics. VNS was set up and patient has an appointment with wound care the following day. Date of Admission:06/24/16 Date of Discharge: 07/06/16 Minutes to complete discharge: 45 Discharge Summary Reason For Visit: CELLULITIS OF ARM Current Active Problems Cellulitis of arm (Acute) ASHD (arteriosclerotic heart disease) (Chronic) CHF (congestive heart failure) (Chronic) CHF exacerbation (Chronic) CKD (chronic kidney disease) (Chronic) Diabetes mellitus, insulin dependent (IDDM), uncontrolled (Chronic) Condition: Stable - Instructions Diet, Activity, Other Instructions: Dr. Albarran Discharge Instructions Dear KYLE MURO, Post Operative Instructions Physical activity Resume your normal everyday activity as tolerated no heavy lifting or exercise until seen by your surgeon. You may walk unlimited amounts of and climb stairs. Wound care Daily wound care. Daily packing and dressing change with gauze and Kerlix gauze wrap. Diet. Eat healthy, high-fiber foods.Diabetic diet Pain management Any pain prescription medication ordered should be taken as prescribed for moderate to severe pain. Call Dr. Albarran for any of the following: Severe pain not relieved by medication Fever of 101 or higher Excessive bleeding or drainage on dressing Call the office at [phone] for a post operative appointment in 7 - 10 days. You may shower and remove dressing Irrigate with Normal Saline Pack loosely with 4 by 4 gauze at at least once a day -Follow up with your Primary care physician within a week -Follow up with your surgeon, Dr. Albarran, as mentioned above. -Please follow up with Dr. Monet -You have a wound care appointment tomorrow (07/07/16) at 1100 am -You will be prescribed antibiotics and should be picked up from the pharmacy. Referrals: Tico Albarran MD [Staff Physician] - Disposition: VNS/HOME HEALTH CARE - Home Medications Comprehensive Discharge Medication List: Ambulatory Orders Acetaminophen with Codeine [Acetaminophen-Cod #3 Tablet] 1 each PO Q4HWA PRN Allopurinol [Zyloprim -] 100 mg PO DAILY 06/24/16 Aspirin [ASA -] 81 mg PO AM 06/24/16 Atorvastatin Calcium 40 mg PO HS 06/24/16 Carvedilol [Coreg -] 6.25 mg PO BID 06/24/16 Cholecalciferol (Vitamin D3) [Vitamin D -] 1,000 mg PO DAILY 06/24/16 Colchicine 0.6 mg PO DAILY 06/24/16 Famotidine/Ca Carb/Mag Hydrox [Pepcid Complete Tablet Chew] 1 each PO AM Fluoxetine HCl [Prozac] 40 mg PO HS 06/24/16 Insulin (Levemir) [Levemir Vial] 70 unit SQ AM 06/24/16 Insulin Regular, Human [Humulin R U-500 Kwikpen] 15 - 20 unit SQ AC 06/24/16 Ipratropium/Albuterol Sulfate [Iprat-Albut 0.5-3(2.5) mg/3 ml] 3 ml IH DAILY PRN 06/24/16 Liraglutide [Victoza -] 1.8 mg SQ DAILY@0700 06/24/16 Lorazepam 0.5 mg PO HS 06/24/16 Oxycodone HCl/Acetaminophen [Oxycodone-Acetaminophen 5-325] 1 each PO Q6H PRN Rivaroxaban [Xarelto -] 15 mg PO DAILY 06/24/16 Sennosides/Docusate Sodium [Senna Laxative Tablet] 8.6 mg PO HS 06/24/16 Tamsulosin HCl [Flomax -] 0.4 mg PO DAILY 06/24/16 Torsemide 200 mg PO DAILY 06/24/16 Trazodone HCl 50 mg PO HS 06/24/16 Clindamycin [Cleocin -] 452 mg PO TID #15 capsule 07/06/16 Rivaroxaban [Xarelto -] 15 mg PO DAILY tablet 07/06/16 This patient is new to me today: No Emergency Visit: Yes ED Registration Date: 06/24/16 Care time: The patient presented to the Emergency Department on the above date and was hospitalized for further evaluation of their emergent condition. Critical Care patient: No - Discharge Referral Referred to [facility] No
--- NOTE | 2016-07-06 12:36 | PN ---
Teaching Attending Note Name of Resident: Stacia Wharton ATTENDING PHYSICIAN STATEMENT I saw and evaluated the patient. I reviewed the resident's note and discussed the case with the resident. I agree with the resident's findings and plan as documented. SUBJECTIVE: Patient has no complaints. OBJECTIVE: Vital Signs Period Temp Pulse Resp BP Sys/Mcconnell Pulse Ox Last 24 Hr 97.9 F-98.9 F 62-72 18-20 102-117/44-60 99 HEART: S1 S2, RRR LUNGS: Clear ABDOMEN: Obese, soft, non-tender, non-distended, normal BS EXTREMITIES: Left forearm dressed. Unna boots on both legs ASSESSMENT AND PLAN: This is a 61-year-old man with a history of chronic systolic heart failure, CAD , [place], 4 vessel CABG, ischemic cardiomyopathy, AICD, PSVT, type 2 DM, COPD, chronic hypoxic respiratory failure, stage 3 CKD, ascites who presented to the ER with left forearm pain, swelling, and erythema. 1. Left forearm cellulitis and abscess - s/p I&D 07/04 - Wound culture growing MRSA - Discharge home today on Clindamycin, with VNS for wound care, wound clinic follow up 2. Ischemic cardiomyopathy with chronic systolic heart failure - Continue Coreg, Demadex, oxygen - Has AICD 3. CAD, history of [place], CABG, cardiac arrest, AICD - Continue aspirin, Coreg, Lipitor 4. HTN -Continue Coreg, Demadex 5. History of PSVT, possible paroxysmal atrial flutter - Continue Coreg, Xarelto 6. Chronic hypoxic respiratory failure - Continue oxygen 7. COPD - Stable - Continue oxygen, DuoNeb as needed 8. Type 2 DM, uncontrolled - Levemir discontinued secondary to hypoglycemia - Continue Humulin R u500 (patient using own) 9. Stage 3 CKD - Stable 10. Depression and anxiety - Continue Prozac, Trazodone 11. History of CVA - Continue aspirin, Lipitor 12. History of gout - Continue Allopurinol, Colchicine 13. Hyponatremia, mild - Likely secondary to Demadex, hyperglycemia - Improved
== END 2016-07-06 13:53 | disposition home health service (06) | DRG 383 ==
LOC: JER 05:29 → JERBED 11:18 → J8W 13:21
PROVIDERS: ADMIT Emergency Medicine; ATTEND Internal Medicine
PROC: 0J9H0ZX Drainage of Left Lower Arm Subcutaneous Tissue and Fascia, Open Approach, Diagnostic (ICD-10-PCS; principal; 2016-07-04 07:30)
DX: L03.114 Cellulitis of left upper limb (principal); R18.8 Other ascites; I25.5 Ischemic cardiomyopathy; I48.92 Unspecified atrial flutter; J44.9 Chronic obstructive pulmonary disease, unspecified; I13.0 Hypertensive heart and chronic kidney disease with heart failure and stage 1 through stage 4 chronic kidney disease, or unspecified chronic kidney disease; E11.22 Type 2 diabetes mellitus with diabetic chronic kidney disease; E11.65 Type 2 diabetes mellitus with hyperglycemia; N18.3 Chronic kidney disease, stage 3 (moderate); I50.22 Chronic systolic (congestive) heart failure; I25.10 Atherosclerotic heart disease of native coronary artery without angina pectoris; Z95.1 Presence of aortocoronary bypass graft; J96.11 Chronic respiratory failure with hypoxia; F32.9 Major depressive disorder, single episode, unspecified; F41.9 Anxiety disorder, unspecified; E87.1 Hypo-osmolality and hyponatremia; M10.9 Gout, unspecified; Z86.73 Personal history of transient ischemic attack (TIA), and cerebral infarction without residual deficits; Z79.4 Long term (current) use of insulin; I25.2 Old myocardial infarction; N40.0 Benign prostatic hyperplasia without lower urinary tract symptoms; R74.0 Nonspecific elevation of levels of transaminase and lactic acid dehydrogenase [LDH]; D64.9 Anemia, unspecified; I48.91 Unspecified atrial fibrillation; E66.01 Morbid (severe) obesity due to excess calories; Z68.36 Body mass index [BMI] 36.0-36.9, adult; Z87.891 Personal history of nicotine dependence; E78.5 Hyperlipidemia, unspecified; G62.9 Polyneuropathy, unspecified; H35.00 Unspecified background retinopathy; C34.12 Malignant neoplasm of upper lobe, left bronchus or lung
CPT/HCPCS: 36415; 71010-TC; 73030-TC-LT; 73090-TC-LT; 76700-TC; 76705-TC; 76882; 80053; 81003; 83605; 85025; 85027; 85610; 85730; 86140; 87040; 87070; 87086; 87186; 87205; 93005; 93010; 93971; 94640; 94760; 97116-GP; 97161-GP; 99283-25; G0480

== ENCOUNTER 2016-08-08 15:52 | Inpatient (IN) | payer OTHER ==
[2016-08-08] MEDS ORDERED: SODIUM CHLORIDE 0.9% 1000 ML INFUS.BAG IV STA (16:25)
--- NOTE | 2016-08-08 16:27 | PDOC ---
History of Present Illness <Leigha Ramirez - Last Filed: 08/08/16 19:17> - General History Source: Patient Exam Limitations: No Limitations - History of Present Illness Initial Comments: The patient is a 61 yo M with a past medical history significant for IDDM poorly controlled, arthernosclerotic heart surgery, CHF, Cellulitis of arm with I & D on July 07 (Dr. Albarran), COPD (on 3 L at home), Hep B, chronic renal disease, gout, and chronic venous stasis who presents BIBA with fever, chills, and shaking rigors for 2 days. Patient states hes freezing. Patient denies cough. Patient was recently admitted from June 24-. Patient last saw Dr. Quispe on 07/28 for wound care. PCP: Dr. Osorio ([place]) Allergies: Raw fruits and vegetables 08/08/16 17:27 <Mae Tenorio - Last Filed: 08/08/16 20:04> - General Chief Complaint: SIRS, Suspected/Possible Stated Complaint: SOB Time Seen by Provider: 08/08/16 16:24 Past History - Past Medical History Anemia: Yes Asthma: Yes Cancer: Yes (Left upper lung, stage 1) Cardiac Disorders: Yes (CAD,[place],CARDIOMYOPATHY,CARDIAC ARREST POST ICD) CVA: Yes COPD: Yes CHF: Yes Diabetes: Yes GI Disorders: Yes (GERD) Disorders: Yes (STONES) HTN: Yes Hypercholesterolemia: Yes Liver Disease: Yes (Fatty Liver) Psychiatric Problems: Yes (anxiety/depression) - Surgical History Cardiac Surgery: Yes (quad bypass, ppm/defib) Orthopedic Surgery: Yes - Psycho/Social/Smoking Cessation Hx Anxiety: No Suicidal Ideation: No Smoking History: Former smoker Have you smoked in the past 12 months: Yes Number of Cigarettes Smoked Daily: 3 If you are a former smoker, when did you quit?: 2008 Information on smoking cessation initiated: No 'Breaking Loose' booklet given: 06/02/16 Hx Alcohol Use: No Drug/Substance Use Hx: No Substance Use Type: None Hx Substance Use Treatment: No <Leigha Ramirez - Last Filed: 08/08/16 19:17> <Mae Tenorio - Last Filed: 08/08/16 20:04> - Past Medical History Allergies/Adverse Reactions: Allergies Allergy/AdvReac Type Severity Reaction Status Date / Time Iodinated Contrast Media - Allergy Verified 08/08/16 16:23 Oral and [Iodinated Contrast Media - IV Dye] raw fruits/vegetables Allergy Intermediate Rash Uncoded 08/08/16 16:23 iv contrast dye Allergy Uncoded 08/08/16 16:23 Home Medications: Ambulatory Orders Acetaminophen with Codeine [Acetaminophen-Cod #3 Tablet] 1 each PO Q4HWA PRN Allopurinol [Zyloprim -] 100 mg PO DAILY 06/24/16 Aspirin [ASA -] 81 mg PO AM 06/24/16 Atorvastatin Calcium 40 mg PO HS 06/24/16 Carvedilol [Coreg -] 6.25 mg PO BID 06/24/16 Cholecalciferol (Vitamin D3) [Vitamin D -] 1,000 mg PO DAILY 06/24/16 Colchicine 0.6 mg PO DAILY 06/24/16 Famotidine/Ca Carb/Mag Hydrox [Pepcid Complete Tablet Chew] 1 each PO AM Fluoxetine HCl [Prozac] 40 mg PO HS 06/24/16 Insulin (Levemir) [Levemir Vial] 70 unit SQ AM 06/24/16 Insulin Regular, Human [Humulin R U-500 Kwikpen] 15 - 20 unit SQ AC 06/24/16 Ipratropium/Albuterol Sulfate [Iprat-Albut 0.5-3(2.5) mg/3 ml] 3 ml IH DAILY PRN 06/24/16 Liraglutide [Victoza -] 1.8 mg SQ DAILY@0700 06/24/16 Lorazepam 0.5 mg PO HS 06/24/16 Oxycodone HCl/Acetaminophen [Oxycodone-Acetaminophen 5-325] 1 each PO Q6H PRN Rivaroxaban [Xarelto -] 15 mg PO DAILY 06/24/16 Sennosides/Docusate Sodium [Senna Laxative Tablet] 8.6 mg PO HS 06/24/16 Tamsulosin HCl [Flomax -] 0.4 mg PO DAILY 06/24/16 Torsemide 200 mg PO DAILY 06/24/16 Trazodone HCl 50 mg PO HS 06/24/16 Review of Systems - Review of Systems Able to Perform ROS?: Yes Comments:: CONSTITUTIONAL: +fever, chills Absent:diaphoresis, generalized weakness, malaise, loss of appetite HEENT: Absent: rhinorrhea, nasal congestion, throat pain, throat swelling, difficulty swallowing, mouth swelling, ear pain, eye pain, visual Changes CARDIOVASCULAR: Absent: chest pain, syncope, palpitations, irregular heart rate, lightheadedness , peripheral edema RESPIRATORY: Absent: cough, shortness of breath, dyspnea with exertion, orthopnea, wheezing, stridor, hemoptysis GASTROINTESTINAL: Absent: abdominal pain, abdominal distension, nausea, vomiting, diarrhea, constipation, melena, hematochezia GENITOURINARY: Absent: dysuria, frequency, urgency, hesitancy, hematuria, flank pain, genital pain MUSCULOSKELETAL: Absent: myalgia, arthralgia, joint swelling SKIN: Absent: rash, itching, pallor HEMATOLOGIC/IMMUNOLOGIC: Absent: easy bleeding, easy bruising, lymphadenopathy, frequent infections PSYCHIATRIC: Absent: anxiety, depression, suicidal or homicidal ideation, hallucinations *CHF, COPD on 3 L O2 dependant, febrile, and cellulitis who refuses to give urine. Patient refuses to give us urine, will not be straight cathed and will not lay flat for further line placement. Requesting food. Very anxious. <CamdenvelmaMae - Last Filed: 08/08/16 20:04> *Physical Exam - Vital Signs Last Vital Signs Temp Pulse Resp BP Pulse Ox 102.6 F H 102 H 22 121/72 96 08/08/16 16:10 08/08/16 16:10 08/08/16 16:10 08/08/16 16:10 08/08/16 16:10 <Leigha Ramirez - Last Filed: 08/08/16 19:17> - Vital Signs Last Vital Signs Temp Pulse Resp BP Pulse Ox 102.6 F H 102 H 22 121/72 96 08/08/16 16:10 08/08/16 16:10 08/08/16 16:10 08/08/16 16:10 08/08/16 16:10 - Physical Exam Comments: GENERAL: Well developed, well nourished. Awake and alert. Shaking rigors and chills, 102 degree oral temp. Very anxious. HEENT: Normocephalic, atraumatic. PERRLA, EOMI. No conjunctival pallor. Sclera are non- icteric. Moist mucous membranes. Oropharynx is clear. NECK: Supple. Full ROM. No JVD. Carotid pulses 2+ and symmetric, without bruits. No thyromegaly. No lymphadenopathy. CARDIOVASCULAR: Tachycardia. No murmurs, rubs, or gallops. Distal pulses are 2+ and symmetric. PULMONARY: No evidence of respiratory distress. Lungs clear to auscultation bilaterally. No wheezing, rales or rhonchi. ABDOMINAL: Soft. big, protuberant soft abdomen. Non-tender. No rebound or guarding. No organomegaly. Normoactive bowel sounds. MUSCULOSKELETAL Normal range of motion at all joints. No bony deformities or tenderness. No CVA tenderness. EXTREMITIES: 3 cm incision in L posterior forearm with no drainage and healing by secondary intention. L middle toe is infected, erythematous and swollen. No cyanosis. No clubbing. No calf tenderness. SKIN: Warm and dry. Normal capillary refill. No rashes. No jaundice. NEUROLOGICAL: No gross neurological deficits. PSYCHIATRIC: Cooperative. Good eye contact. Appropriate mood and affect <Mae Tenorio - Last Filed: 08/08/16 20:04> Heart Score/ECG Review #1 ECG reviewed & interpreted by me at: 17:05 - [place] Comment: ECG: Undetermined rhythm @ 128 bpm. Right bundle branch block. Anteroseptal infarct, age undetermined. <Mae Tenorio - Last Filed: 08/08/16 20:04> ED Treatment Course - LABORATORY CBC & Chemistry Diagram: 08/08/16 17:10 08/08/16 17:10 <Leigha Ramirez - Last Filed: 08/08/16 19:17> - LABORATORY CBC & Chemistry Diagram: 08/08/16 17:10 08/08/16 17:10 - RADIOLOGY Radiograph Interpretation: CXR: Clinical information: evaluate for sepsis no obvious interval change is seen in comparison to a prior radiographic study of 06/24/2016. No definite infiltrate or pleural effusion is identified. Cardiomegaly is noted with probable mild pulmonary vascular congestion. Status post median sternotomy with CABG. Left- sided ICD in place. Impression: No definite interval change is seen as discussed. <Mae Tenorio - Last Filed: 08/08/16 20:04> Medical Decision Making - Critical Care Time Total Critical Care Time (minutes): 120 Critical Care Statement: The care of this patient involved high complexity decision making to prevent further life threatening deterioration of the patient 's condition and/or to evalute & treat vital organ system(s) failure or risk of failure. - Medical Decision Making 08/08/16 19:04 61 yo male BIBA for fever and chills -SIRS criteria , febrile 102.6, tachycardia, spb 121 , 93% pulse ox on 3 L nasal cannula PMH ischemia cardiomyopathy, CHF NYHA Class 4,Diabetes, CAD,CABG , Defibrillator, copd o2 dependent 3L NC, Hep B,CVA, gout, CKD, cellulits ECHO in May 2016 severe global hypokinesis, EF 34%, has a lung nodule that has not been classified because he cannot lay flat for biopsy. REVIEWING THE OLD CHART- Dr Hirsch reported had received sterotactic radiation for lung ca DR SHANNAN HAWLEY saw this pt in the ER DR BARBOSA said the pt could go to ICU 08/08/16 19:17 IMP cellulitis trop 0.09 will need to be trended -after BC pt received zofran,vanco,conbivent x3, solumedrol -pt refusing straight or cade tpo obtain urine cxr CM,mild chf, no infiltrates appreciated <Leigha Ramirez - Last Filed: 08/08/16 19:17> - Medical Decision Making Paged Dr. Barbosa @ 17:41 and received call back at 17:44 and case was discussed. Paged Dr. Vazquez @ 17:45 and received call back from Dr. Hawley @ 17:46 and case was discussed. <Mae Tenorio - Last Filed: 08/08/16 20:04> *DC/Admit/Observation/Transfer - Discharge Dispostion Admit: Yes <Leigha Ramirez - Last Filed: 08/08/16 19:17> - Attestations Scribe Attestion: Documentation prepared by Mae Tenorio, acting as medical microbiologist for Leigha Ramirez MD/DO. 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
[2016-08-08] MEDS ORDERED: IBUPROFEN 800 MG/8 ML IJ IVPB ONE ×2 (17:11→17:18)
[2016-08-08] MEDS ORDERED: VANCOMYCIN 1,000 MG in DEXTROSE 5%-WATER - 500 ML IVPB ONE (17:21)
[2016-08-08] MEDS ORDERED: PIPERACILLIN/TAZOB 3.375 GM 3.375 GM in DEXTROSE 5%-WATER - 50 ML IVPB ONE (17:21)
[2016-08-08] MEDS ORDERED: VANCOMYCIN 1 GRAM (PRE-DOCKED) 250 ML IVPB ONE (17:28)
[2016-08-08] MEDS ORDERED: PIPERACILLIN/TAZOB 3.375 GM 50 ML IVPB ONE (17:28)
[2016-08-08] MEDS ORDERED: ALBUTEROL SO4 2.5/IPRATROPIUM 0.5 INH SOL 3 ML VIAL.NEB. NEB ONE ×3 (17:28→19:29)
[2016-08-08] MEDS ORDERED: methylPREDNISolone NA SUCC 125 MG/2 ML VIAL ONE (17:29)
[2016-08-08 17:32] LABS: BASOPHIL 0.3 % (0-2.0); EOSINOPHIL 0.2 % (0-4.5); MCH 30.2 pg (25.7-33.7); MCHC 32.7 g/dl (32.0-35.9); MEAN CELL VOLUME 92.3 fl (80-96); MEAN PLT VOLUME 8.3 fl (7.5-11.1); NEUTROPHILS 91.5 % (42.8-82.8); PLATELET COUNT 197 K/MM3 (134-434); RDW 17.8 % (11.9-15.9); WHITE BLOOD COUNT 11.5 K/mm3 (4.0-10.0)
[2016-08-08 17:49] LABS: INR 1.61 (0.82-1.09); PROTHROMBIN TIME (PATIENT) 17.9 SEC (9.98-11.88)
[2016-08-08 17:51] LABS: ACTIVATED PTT 30.3 SECONDS (26.9-34.4)
[2016-08-08 18:04] LABS: ALBUMIN 2.8 g/dl (3.4-5.0); ANION GAP 12 (8-16); CALCIUM 8.4 mg/dL (8.5-10.1); CO2 29 mmol/L (21-32); GLUCOSE,RANDOM 125 mg/dL (74-106); SGOT/AST 45 U/L (15-37); SGPT/ALT 48 U/L (12-78); TOT PROT 6.7 g/dl (6.4-8.2)
[2016-08-08 18:07] LABS: ALK PHOS 469 U/L (45-117); TROPONIN I 0.09 ng/ml (0.00-0.05)
--- NOTE | 2016-08-08 18:13 | CON.CARD ---
Consult Consult Specialty:: Cardiology Referred by:: Dr. Ramirez (ER) Reason for Consultation:: Cardiac evaluation - History of Present Illness Chief Complaint: Shortness of breath and fever History of Present Illness: Patient is a 61 year old male well known to our service (sees Dr. Ashwin Pittman in the office) with underlying history of ischemic cardiomyopathy and hear failure (NYHA classification III -IV), history of CAD post [place], 4 vessel CABG, cardiac arrest s/p ICD, type 2 diabetes mellitus, home O2 dependent COPD, CVA, hepatitis B, gout, CKD and right LE DVT on Xarelto now presents with increase in shortness of breath worsened over few days and fever of 102 today. He has lower extremity erythema and wound. He denies chest pain or palpitations. He denies paroxysmal nocturnal dyspnea or orthopnea. He complains of episode of nausea, but no vomiting, diarrhea or abdominal pain. Patient was seen in the ER. He was given empiric antibiotics and was given Lasix 40 mg IVP. Cardiology consultation was called for further evaluation. 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: CVA Cardio/Vascular: Yes: CAD, CHF (s/p defibrillator for cardiac arrest and low LVEF), Deep Vein Thrombosis, HTN, [place], Other (Ischemic cardiomyopathy) Pulmonary: Yes: Cancer (undocumented cell type), COPD Gastrointestinal: Yes: Ascites Renal/: Yes: Renal Inusuff Infectious Disease: Yes: Other (Chronic lower extremity bilateral cellulitis ) Endocrine: Yes: Diabetes Mellitus - Past Surgical History Past Surgical History: Yes: AICD, CABG - Alcohol/Substance Use Hx Alcohol Use: No History of Substance Use: reports: None - Smoking History Smoking history: Former smoker Have you smoked in the past 12 months: Yes Aproximately how many cigarettes per day: 3 If you are a former smoker, when did you quit?: 2008 - Social History Usual Living Arrangement: With Spouse ADL: Independent 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 History of Recent Travel: No Home Medications - Allergies Allergies/Adverse Reactions: Allergies Allergy/AdvReac Type Severity Reaction Status Date / Time Iodinated Contrast Media - Allergy Verified 08/08/16 16:23 Oral and [Iodinated Contrast Media - IV Dye] raw fruits/vegetables Allergy Intermediate Rash Uncoded 08/08/16 16:23 iv contrast dye Allergy Uncoded 08/08/16 16:23 - Home Medications Home Medications: Ambulatory Orders Acetaminophen with Codeine [Acetaminophen-Cod #3 Tablet] 1 each PO Q4HWA PRN Allopurinol [Zyloprim -] 100 mg PO DAILY 06/24/16 Aspirin [ASA -] 81 mg PO AM 06/24/16 Atorvastatin Calcium 40 mg PO HS 06/24/16 Carvedilol [Coreg -] 6.25 mg PO BID 06/24/16 Cholecalciferol (Vitamin D3) [Vitamin D -] 1,000 mg PO DAILY 06/24/16 Colchicine 0.6 mg PO DAILY 06/24/16 Famotidine/Ca Carb/Mag Hydrox [Pepcid Complete Tablet Chew] 1 each PO AM Fluoxetine HCl [Prozac] 40 mg PO HS 06/24/16 Insulin (Levemir) [Levemir Vial] 70 unit SQ AM 06/24/16 Insulin Regular, Human [Humulin R U-500 Kwikpen] 15 - 20 unit SQ AC 06/24/16 Ipratropium/Albuterol Sulfate [Iprat-Albut 0.5-3(2.5) mg/3 ml] 3 ml IH DAILY PRN 06/24/16 Liraglutide [Victoza -] 1.8 mg SQ DAILY@0700 06/24/16 Lorazepam 0.5 mg PO HS 06/24/16 Oxycodone HCl/Acetaminophen [Oxycodone-Acetaminophen 5-325] 1 each PO Q6H PRN Rivaroxaban [Xarelto -] 15 mg PO DAILY 06/24/16 Sennosides/Docusate Sodium [Senna Laxative Tablet] 8.6 mg PO HS 06/24/16 Tamsulosin HCl [Flomax -] 0.4 mg PO DAILY 06/24/16 Torsemide 200 mg PO DAILY 06/24/16 Trazodone HCl 50 mg PO HS 06/24/16 Family Disease History - Family Disease History Family Disease History: Other: Father, Mother, Brother, Sister Review of Systems - Review of Systems Constitutional: reports: Chills, Fever Cardiovascular: reports: Shortness of Breath. denies: Chest Pain, Palpitations Respiratory: reports: Orthopnea, SOB, SOB on Exertion. denies: Cough, Hemoptysis, PND, Wheezing Gastrointestinal: reports: Nausea. denies: Abdominal Pain, Constipation, Diarrhea, Melena, Rectal Bleeding, Vomiting Musculoskeletal: reports: Back Pain Neurological: denies: Dizziness, Headache, Seizure, Syncope Vital Signs: Vital Signs Temperature 102.6 F H 08/08/16 16:10 Pulse Rate 102 H 08/08/16 16:10 Respiratory Rate 22 08/08/16 16:10 Blood Pressure 121/72 08/08/16 16:10 O2 Sat by Pulse Oximetry (%) 96 08/08/16 16:10 Neck: Yes: Supple Respiratory: Yes: Diminished, SOB Gastrointestinal: Yes: Normal Bowel Sounds, Soft, Abdomen, Obese. No: Tenderness Cardiovascular: Yes: Regular Rate and Rhythm, Tachycardia JVD: No Carotid Bruit: No PMI: Non-Displaced Heart Sounds: Yes: S1, S2. No: Gallop Murmur: Yes: Systolic Murmur, Grade 2 Extremities: Yes: Erythema Edema: Yes Edema: LLE: 2+, RLE: 2+ - Other Data Labs, Other Data: CBC, BMP 08/08/16 17:10 08/08/16 17:10 Troponin, BNP 08/08/16 17:10 Troponin I 0.09 H Laboratory Results - last 24 hr 08/08/16 08/08/16 08/08/16 16:28 17:10 17:10 WBC 11.5 H D RBC 3.85 L Hgb 11.6 L Hct 35.5 MCV 92.3 MCHC 32.7 RDW 17.8 H Plt Count 197 MPV 8.3 Neutrophils % 91.5 H D Lymphocytes % 3.1 L D Monocytes % 4.9 Eosinophils % 0.2 Basophils % 0.3 INR 1.61 H D PTT (Actin FS) 30.3 Puncture Site ABG pH ABG pCO2 at Pt Temp ABG pO2 at Pt Temp ABG HCO3 ABG O2 Sat (Measured) ABG O2 Content ABG Base Excess Henry Test VBG pH 7.39 POC VBG pCO2 45.3 POC VBG pO2 33.6 Mixed VBG HCO3 27.0 H O2 Delivery Device Oxygen Flow Rate PEEP Sodium Potassium Chloride Carbon Dioxide Anion Gap BUN Creatinine Creat Clearance w eGFR Random Glucose Lactic Acid Calcium Total Bilirubin AST ALT Alkaline Phosphatase Creatine Kinase Troponin I B-Natriuretic Peptide Total Protein Albumin Blood Type Antibody Screen 08/08/16 08/08/16 08/08/16 17:10 17:10 17:10 WBC RBC Hgb Hct MCV MCHC RDW Plt Count MPV Neutrophils % Lymphocytes % Monocytes % Eosinophils % Basophils % INR PTT (Actin FS) Puncture Site ABG pH ABG pCO2 at Pt Temp ABG pO2 at Pt Temp ABG HCO3 ABG O2 Sat (Measured) ABG O2 Content ABG Base Excess Henry Test VBG pH POC VBG pCO2 POC VBG pO2 Mixed VBG HCO3 O2 Delivery Device Oxygen Flow Rate PEEP Sodium 137 Potassium 4.0 Chloride 96 L Carbon Dioxide 29 Anion Gap 12 BUN 27 H D Creatinine 2.0 H Creat Clearance w eGFR 34.14 Random Glucose 125 H D Lactic Acid 1.9 Calcium 8.4 L Total Bilirubin 2.0 H D AST 45 H ALT 48 D Alkaline Phosphatase 469 H Creatine Kinase 110 Troponin I 0.09 H B-Natriuretic Peptide Total Protein 6.7 Albumin 2.8 L Blood Type A POSITIVE Antibody Screen Negative 08/08/16 08/08/16 17:51 19:05 WBC RBC Hgb Hct MCV MCHC RDW Plt Count MPV Neutrophils % Lymphocytes % Monocytes % Eosinophils % Basophils % INR PTT (Actin FS) Puncture Site Right radial ABG pH 7.45 ABG pCO2 at Pt Temp 38.9 D ABG pO2 at Pt Temp 61.7 L D ABG HCO3 26.7 H ABG O2 Sat (Measured) 92.1 ABG O2 Content 13.1 L ABG Base Excess 3.0 H Henry Test Positive VBG pH POC VBG pCO2 POC VBG pO2 Mixed VBG HCO3 O2 Delivery Device Nasal Oxygen Flow Rate 4l PEEP 0.0 Sodium Potassium Chloride Carbon Dioxide Anion Gap BUN Creatinine Creat Clearance w eGFR Random Glucose Lactic Acid Calcium Total Bilirubin AST ALT Alkaline Phosphatase Creatine Kinase Troponin I B-Natriuretic Peptide 9748.17 H Total Protein Albumin Blood Type Antibody Screen Imaging - Results Chest X-ray: Report Reviewed EKG: Report Reviewed Problem List - Problems (1) Diabetes mellitus Code(s): E11.9 - TYPE 2 DIABETES MELLITUS WITHOUT COMPLICATIONS Qualifiers: Diabetes mellitus type: type 2 Diabetes mellitus complication status: with kidney complications Diabetes mellitus complication detail: with chronic kidney disease 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-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 use Chronic kidney disease stage: stage 4 (severe) Qualified Code(s): E11.22 - Type 2 diabetes mellitus with diabetic chronic kidney disease ; N18.1 - Chronic kidney disease, stage 1; Z79.4 - terminal gauger (current) use of insulin (2) Sepsis Code(s): A41.9 - SEPSIS, UNSPECIFIED ORGANISM Qualifiers: Sepsis type: sepsis due to unspecified organism Qualified Code(s): A41.9 - Sepsis, unspecified organism (3) CKD (chronic kidney disease) Code(s): N18.9 - CHRONIC KIDNEY DISEASE, UNSPECIFIED Qualifiers: Chronic kidney disease stage: stage 3 (moderate) Qualified Code(s): N18.3 - Chronic kidney disease, stage 3 (moderate) (4) Acute and chronic respiratory failure with hypoxia Code(s): J96.21 - ACUTE AND CHRONIC RESPIRATORY FAILURE WITH HYPOXIA (5) Acute on chronic systolic and diastolic heart failure, NYHA class 4 Code(s): I50.43 - ACUTE ON CHRONIC COMBINED SYSTOLIC AND DIASTOLIC HRT FAIL (6) COPD (chronic obstructive pulmonary disease) Code(s): J44.9 - CHRONIC OBSTRUCTIVE PULMONARY DISEASE, UNSPECIFIED Qualifiers : COPD type: chronic bronchitis (7) Deep venous thrombosis Code(s): I82.409 - ACUTE EMBOLISM AND THOMBOS UNSP DEEP VN UNSP LOWER EXTREMITY Qualifiers: DVT location: lower extremity Affected thrombotic vein of extremity: unspecified vein of extremity Chronicity: acute Laterality: right Qualified Code(s): I82.401 - Acute embolism and thrombosis of unspecified deep veins of right lower extremity (8) Dyspnea on exertion Code(s): R06.09 - OTHER FORMS OF DYSPNEA (9) Elevated troponin I level Code(s): R79.89 - OTHER SPECIFIED ABNORMAL FINDINGS OF BLOOD CHEMISTRY (10) Hx of CABG Code(s): Z95.1 - PRESENCE OF AORTOCORONARY BYPASS GRAFT (11) Ischemic cardiomyopathy Code(s): I25.5 - ISCHEMIC CARDIOMYOPATHY (12) Lung nodule Code(s): R91.1 - SOLITARY PULMONARY NODULE (13) Morbid obesity Code(s): E66.01 - MORBID (SEVERE) OBESITY DUE TO EXCESS CALORIES Qualifiers: Obesity type: due to excess calories Qualified Code(s): E66.01 - Morbid (severe) obesity due to excess calories (14) Severe left ventricular systolic dysfunction Code(s): I51.9 - HEART DISEASE, UNSPECIFIED (15) Single implantable cardioverter-defibrillator (ICD) in situ Code(s): Z95.810 - PRESENCE OF AUTOMATIC (IMPLANTABLE) CARDIAC DEFIBRILLATOR (16) ASHD (arteriosclerotic heart disease) Code(s): I25.10 - ATHSCL HEART DISEASE OF [place] CORONARY ARTERY W/O ANG PCTRS Assessment/Plan 1. Clinical presentation compatible with acute on chronic LV systolic failure with NYHA classification 3-4 heart failure with ischemic cardiomyopathy 2. Fever suggests infectious etiology - possibility includes cellulitis 3. CAD S/P CABG, angina pectoris 4. History of cardiac arrest S/P ICD 5. Home O2 dependent COPD and pulmonary nodules 6. Type 2 diabetes mellitus 7. CVA 8. CKD 9. Morbid obesity 10. History of RLE DVT PLAN: 1. Admit to ICU or telemetry 2. IV diuretics - I/Os and daily weight 3. Empiric antibiotics and panculture 4. Wound care 5. Continue Carvedilol, Atorvastatin and ASA 6. Review home medication list - ACEI or ARB if renal function allows. 7. Continue Xarelto Further plans are to follow Leonel Hawley MD
[2016-08-08 19:17] LABS: ARTERIAL BLD GAS O2 SATURATION 92.1 % (90-98.9); ARTERIAL BLOOD GAS HCO3 26.7 meq/L (22-26); ARTERIAL BLOOD GAS PO2 61.7 mmHg (80-100); ARTERIAL BLOOD GAS pH 7.45 (7.35-7.45)
[2016-08-08 19:18] LABS: ALLENS TEST POSITIVE; ART PUNCT SITE RIGHT RADIAL; LPM/O2% 4L; PT. ON O2? YES; TYPE OF O2 NASAL
--- NOTE | 2016-08-08 19:24 | PN ---
<Romi Chaparro - Last Filed: 08/09/16 02:24> Teaching Attending Note ATTENDING PHYSICIAN STATEMENT I saw and evaluated the patient. I reviewed the resident's note and discussed the case with the resident. I agree with the resident's findings and plan as documented. SUBJECTIVE: 61 yo M with a past medical history significant for IDDM, arthernosclerotic heart surgery, CHF, cellulitis of left forearm with I&D on July 07, COPD (on 3 L at home), Hep B, CKD, gout, and chronic venous stasis who was brought in by an ambulance with fever, rigors and chills x2 days in duration. OBJECTIVE: VS: Vital Signs Period Temp Pulse Resp BP Sys/Mcconnell Pulse Ox Last 24 Hr 99.1 F-102.6 F 91-102 - 108-121/56-82 4-96 GEN: NAD HEENT: NCAT, PERRL CARD: RRR, S1 S2 RESP: CTAB ABD: NT, BWS x4 EXT: +3rd left digit without nail, +left forearm 2x1 cm wound well healing, + bilateral lower extremities have multiple excoriations with erythema, edema, and warmth LABS: CBCD WBC 11.5 K/mm3 (4.0-10.0) H D 08/08/16 17:10 RBC 3.85 M/mm3 (4.00-5.60) L 08/08/16 17:10 Hgb 11.6 GM/dL (11.7-16.9) L 08/08/16 17:10 Hct 35.5 % (35.4-49) 08/08/16 17:10 MCV 92.3 fl (80-96) 08/08/16 17:10 MCHC 32.7 g/dl (32.0-35.9) 08/08/16 17:10 RDW 17.8 % (11.9-15.9) H 08/08/16 17:10 Plt Count 197 K/MM3 (134-434) 08/08/16 17:10 MPV 8.3 fl (7.5-11.1) 08/08/16 17:10 CMP Sodium 137 mmol/L (136-145) 08/08/16 17:10 Potassium 4.0 mmol/L (3.5-5.1) 08/08/16 17:10 Chloride 96 mmol/L (98-107) L 08/08/16 17:10 Carbon Dioxide 29 mmol/L (21-32) 08/08/16 17:10 Anion Gap 12 (8-16) 08/08/16 17:10 BUN 27 mg/dL (7-18) H D 08/08/16 17:10 Creatinine 2.0 mg/dL (0.7-1.3) H 08/08/16 17:10 Creat Clearance w eGFR 34.14 (>60) 08/08/16 17:10 Calcium 8.4 mg/dL (8.5-10.1) L 08/08/16 17:10 Total Bilirubin 2.0 mg/dL (0.2-1.0) H D 08/08/16 17:10 AST 45 U/L (15-37) H 08/08/16 17:10 ALT 48 U/L (12-78) D 08/08/16 17:10 Alkaline Phosphatase 469 U/L (45-117) H 08/08/16 17:10 Total Protein 6.7 g/dl (6.4-8.2) 08/08/16 17:10 Albumin 2.8 g/dl (3.4-5.0) L 08/08/16 17:10 ECG: Undetermined rhythm, 128 bpm. Right bundle branch block. Anteroseptal infarct, age undetermined. IMAGING: CXR: Clinical information: evaluate for sepsis no obvious interval change is seen in comparison to a prior radiographic study of 06/24/2016. No definite infiltrate or pleural effusion is identified. Cardiomegaly is noted with probable mild pulmonary vascular congestion. Status post median sternotomy with CABG. Left-sided ICD in place. Impression: No definite interval change is seen as discussed. ASSESSMENT AND PLAN: 61 yo M with pmhx of IDDM, arthernosclerotic heart surgery, CHF, cellulitis of left forearm with I&D on July 07, COPD (on 3 L at home), Hep B, CKD, gout, and chronic venous stasis who presents with fever found to be septic mostl likely due to lower extremity cellulitis. 1. Lower extremity cellulitis - Vanco/Zosyn renally dose - Lombardi culture - Ua and u culture - Check ESR/CRP - Follow repeat lactic acid - BP stable do not recommend hydration at this point due to CHF 2. Acute on chronic CHF - Exacerbation - s/p lasiX 40 - Strict I/O - Sodium and fluid restrict - Last ECHO EF 34 % - Cardiology on case - Trend troponin/ECG 3. IDDM - Finger stick q4 - Sliding scale - Continue levemir in am 4. MARCIAL on CKD - Creatinine baseline is 1.7-1.8 - Urine lytes - Renaly dose all meds - Trend creatinine - Avoid nephrotoxins 5. Chronic afib - On Xarelto renally dosed - Continue home meds 6. CAD - Continue home meds 7. COPD - Continue home meds - Duonebs PRN 8. Bilateral lower extremity edema - Duplex bilateral lower extremity 9. DVT ppx - Heparin 5000 q8 10. Elevated troponin - most likely in demand - trend troponin/ECG Documentation prepared by ISAAC Mosquera, acting as medical pathology teacher for Manjinder Tan D.O. <Manjinder Tan - Last Filed: 08/09/16 05:44> Teaching Attending Note Name of Resident: Kyara Hair Urinary Tract Infection - Follow Ucx - C/W Talha
[2016-08-08 19:54] LABS: VENOUS PH 7.39 (7.32-7.42)
[2016-08-08] MEDS ORDERED: FUROSEMIDE 40 MG/4 ML INJECTABLE VIAL IVPB ONE (20:04)
[2016-08-08] MEDS ORDERED: OXYCODONE/APAP 5/325MG COMBO TABLET PO ONE (20:33)
[2016-08-08] MEDS ORDERED: OXYCODONE/APAP 5/325MG COMBO TABLET ONE (20:35)
[2016-08-08] MEDS ORDERED: ALBUTEROL SO4 2.5/IPRATROPIUM 0.5 INH SOL 3 ML VIAL.NEB. NEB PRN (20:49)
[2016-08-08] MEDS ORDERED: NYSTATIN POWDER 100,000 UNITS/GM - 15 GM TOPICAL POWDER TP ONE (21:42)
--- NOTE | 2016-08-08 21:46 | HP ---
CHIEF COMPLAINT: fever, chills PCP: Dr. Osorio ([place]) HISTORY OF PRESENT ILLNESS: This is a 61 year old male with a significant past medical history of systolic heart failure III-IV, CAD (s/p quadruple bypass), ICD, IDDM, COPD (on 3L NC at home 04/09), CKD, hx LE DVT on Xarelto, presents to the emergency room with fever and chills and shortness of breath for the past 2 days. Patient states what prompted him to come to the ER is that he was reaching for coupons at his table and he slide slowly down to the floor from being weak and short of breath. He denies LOC, RAO, lightheadedness, diaphoresis, chest pain, palpitations, cough, wheezing, orthopnea, abdominal pain. He endorses some dysuria (few episodes), no hematuria, change in frequency or hesitancy with urination. Patient was recently admitted to hospital on June 26- for left arm abscess; wound positive for MRSA; treated and sent home on clindamycin. ER course notable for fever 102, tachycardic, dyspniec, O2 sat 95. Labs significant for leukocytosis 11.5, elevated Cr 2.0; baseline 1.7. Troponin 0.09. BNP >9,000. Stat IV lasix 40mg given. Patient was also given IV stat dose of vancomycin 1grm and zosyn 3.375gms. CXR revealed cardiomegaly and mild congestion; unchanged from previous. Recent Travel: no PAST MEDICAL HISTORY: systolic heart failure III-IV, CAD (s/p quadruple bypass), ICD, IDDM, COPD, CKD , hx LE DVT on Xarelto, left arm abscess +MRSA, renal stones, gout, Hep B, CVA PAST SURGICAL HISTORY: CABG; ICD Social History: Smoking:quit 2008 Alcohol:no Drugs: no Family History: Allergies Iodinated Contrast Media - Oral and [Iodinated Contrast Media - IV Dye] Allergy (Verified 08/08/16 16:23) raw fruits/vegetables Allergy (Intermediate, Uncoded 08/08/16 16:23) Rash CARROTS RASH iv contrast dye Allergy (Uncoded 08/08/16 16:23) HOME MEDICATIONS: Home Medications Medication Instructions Recorded Acetaminophen with Codeine 1 each PO Q4HWA PRN 06/24/16 [Acetaminophen-Cod #3 Tablet] Allopurinol [Zyloprim -] 100 mg PO DAILY 06/24/16 Aspirin [ASA -] 81 mg PO AM 06/24/16 Atorvastatin Calcium 40 mg PO HS 06/24/16 Carvedilol [Coreg -] 6.25 mg PO BID 06/24/16 Cholecalciferol (Vitamin D3) 1,000 mg PO DAILY 06/24/16 [Vitamin D -] Colchicine 0.6 mg PO DAILY 06/24/16 Famotidine/Ca Carb/Mag Hydrox 1 each PO AM 06/24/16 [Pepcid Complete Tablet Chew] Fluoxetine HCl [Prozac] 40 mg PO HS 06/24/16 Insulin (Levemir) [Levemir Vial] 70 unit SQ AM 06/24/16 Insulin Regular, Human [Humulin R 15 - 20 unit SQ AC 06/24/16 U-500 Kwikpen] Ipratropium/Albuterol Sulfate 3 ml IH DAILY PRN 06/24/16 [Iprat-Albut 0.5-3(2.5) mg/3 ml] Liraglutide [Victoza -] 1.8 mg SQ DAILY@0700 06/24/16 Lorazepam 0.5 mg PO HS 06/24/16 Oxycodone HCl/Acetaminophen 1 each PO Q6H PRN 06/24/16 [Oxycodone-Acetaminophen 5-325] Rivaroxaban [Xarelto -] 15 mg PO DAILY 06/24/16 Sennosides/Docusate Sodium [Senna 8.6 mg PO HS 06/24/16 Laxative Tablet] Tamsulosin HCl [Flomax -] 0.4 mg PO DAILY 06/24/16 Torsemide 200 mg PO DAILY 06/24/16 Trazodone HCl 50 mg PO HS 06/24/16 REVIEW OF SYSTEMS CONSTITUTIONAL: Positive: fever, chills, generalized weakness Absent: diaphoresis,malaise, loss of appetite, weight change HEENT: Absent: rhinorrhea, nasal congestion, throat pain, throat swelling, difficulty swallowing, mouth swelling, ear pain, eye pain, visual changes CARDIOVASCULAR: Absent: chest pain, syncope, palpitations, irregular heart rate, lightheadedness , peripheral edema RESPIRATORY: Positive: shortness of breath, dyspnea with exertion Absent: cough, , orthopnea, wheezing, stridor, hemoptysis GASTROINTESTINAL: Absent: abdominal pain, abdominal distension, nausea, vomiting, diarrhea, constipation, melena, hematochezia GENITOURINARY: Absent: dysuria, frequency, urgency, hesitancy, hematuria, flank pain, genital pain MUSCULOSKELETAL: Positive: chronic bilateral leg edema Absent: myalgia, arthralgia, joint swelling, back pain, neck pain SKIN: Absent: rash, itching, pallor HEMATOLOGIC/IMMUNOLOGIC: Absent: easy bleeding, easy bruising, lymphadenopathy, frequent infections ENDOCRINE: Absent: unexplained weight gain, unexplained weight loss, heat intolerance, cold intolerance NEUROLOGIC: Absent: headache, focal weakness or paresthesias, dizziness, unsteady gait, seizure, mental status changes, bladder or bowel incontinence PSYCHIATRIC: Absent: anxiety, depression, suicidal or homicidal ideation, hallucinations. PHYSICAL EXAMINATION Vital Signs - 24 hr 08/08/16 08/08/16 18:51 20:22 Temperature 99.1 F Pulse Rate [ 97 H 91 H Radial] Respiratory 26 H 26 H Rate Blood Pressure 108/82 110/56 [Right Arm] O2 Sat by Pulse 93 L 4 L Oximetry (%) GENERAL: Awake, alert, and fully oriented, with venti mask on ; anxious NECK: Normal range of motion, supple without lymphadenopathy, JVD, or masses. LUNGS: decreased Breath sounds equal, clear to auscultation bilaterally. No wheezes, and no crackles. No accessory muscle use. HEART: Regular rate and rhythm, normal S1 and S2 without murmur, rub or gallop. ABDOMEN: obese, Soft, nontender, not distended, normoactive bowel sounds, no guarding, no rebound, no masses. No hepatomegaly or splenomegaly. MUSCULOSKELETAL: mid lumbarback pain No bony deformities or tenderness. No CVA tenderness. UPPER EXTREMITIES: 2+ pulses, warm, well-perfused. No cyanosis. No clubbing. No peripheral edema. left forearm with 1x1cm healing ulceration from previous abscess; no swelling erythema or pus LOWER EXTREMITIES: 2+ pulses, warm, well-perfused. No calf tenderness. bilateral remedios stasis/edema; with erythema , warmth josh L>R leg; random areaa of open ulcers 1x1 cn; non draining , no puss, left foot toes infected NEUROLOGICAL: Cranial nerves II-XII intact. Normal speech. Normal gait. PSYCHIATRIC: Cooperative. Good eye contact. Appropriate mood and affect. SKIN: Warm, dry, normal turgor, no rashes or lesions noted, normal capillary refill. Laboratory Results - last 24 hr 08/08/16 19:05 Puncture Site Right radial ABG pH 7.45 ABG pCO2 at Pt Temp 38.9 D ABG pO2 at Pt Temp 61.7 L D ABG HCO3 26.7 H ABG O2 Sat (Measured) 92.1 ABG O2 Content 13.1 L ABG Base Excess 3.0 H Henry Test Positive O2 Delivery Device Nasal Oxygen Flow Rate 4l PEEP 0.0 Current Medications Generic Name Dose Route Start Last Admin Trade Name Freq PRN Reason Stop Dose Admin Albuterol/Ipratropium 1 amp 08/08/16 20:49 Duoneb - NEB DAILY PRN SHORT OF BREATH/WHEEZING Allopurinol 100 mg 08/09/16 10:00 Zyloprim - PO DAILY [facility] Aspirin 81 mg 08/09/16 07:00 Asa - PO AM [facility] Atorvastatin Calcium 40 mg 08/08/16 22:00 Lipitor - PO HS [facility] Carvedilol 6.25 mg 08/08/16 22:00 Coreg - PO BID [facility] Chlorhexidine Gluconate 1 applic 08/08/16 22:00 Hibiclens For Decolonization - TP HS [facility] Cholecalciferol 400 unit 08/09/16 10:00 Vitamin D3 - PO DAILY [facility] Colchicine 0.6 mg 08/09/16 10:00 Colcrys - PO DAILY [facility] Fluoxetine HCl 40 mg 08/08/16 22:00 Prozac - PO HS [facility] Heparin Sodium (Porcine) 5,000 unit 08/08/16 22:00 Heparin - SQ TID [facility] Vancomycin HCl 1,250 mg/ 250 mls @ 250 mls/hr 08/10/16 10:00 Dextrose IVPB DAILY [facility] Protocol Piperacillin Sod/Tazobactam Sod 50 mls @ 100 mls/hr 08/09/16 18:00 Zosyn 2.25gm Ivpb (Pre-Docked) IVPB Q8H-IV [facility] Protocol Vancomycin HCl 1,250 mg/ 250 mls @ 250 mls/hr 08/09/16 10:00 Dextrose IVPB 08/09/16 10:59 ONCE ONE Protocol Piperacillin Sod/Tazobactam Sod 50 mls @ 100 mls/hr 08/09/16 02:00 Zosyn 2.25gm Ivpb (Pre-Docked) IVPB 08/09/16 10:29 Q8H-IV [facility] Protocol Insulin Aspart 1 vial 08/08/16 22:00 Novolog Vial Sliding Scale - SQ ACHS [facility] Protocol Insulin Detemir 70 units 08/09/16 07:00 Levemir Vial SQ AM [facility] Lorazepam 0.5 mg 08/08/16 22:00 Ativan - PO HS [facility] Mupirocin 1 applic 08/08/16 22:00 Bactroban Ointment (For Decolonization) - NS 08/13/16 21:59 BID [facility] Ranitidine HCl 150 mg 08/09/16 07:00 Zantac - PO AM [facility] Rivaroxaban 15 mg 08/09/16 10:00 Xarelto - PO DAILY [facility] Senna/Docusate Sodium 2 tablet 08/08/16 22:00 Pericolace - PO HS [facility] Tamsulosin HCl 0.4 mg 08/09/16 10:00 Flomax - PO DAILY [facility] Torsemide 200 mg 08/09/16 10:00 Demadex - PO DAILY [facility] IMAGES: CHEST XRAY in comparison to a prior radiographic study of 06/24/2016. No definite infiltrate or pleural effusion is identified. Cardiomegaly is noted with probable mild pulmonary vascular congestion. Status post median sternotomy with CABG. Left-sided ICD in place. Impression: No definite interval change is seen as discussed. ASSESSMENT/PLAN: 61 year old male with extensive cardiac history including ischemic cardiomyopathy, congestive heart failure class III-IV, s/p CABG, ICD, IDDM, COPD , diabetic leg ulcers; presents to the emergency room with fever, chills, sob, admitted for sepsis and acute CHF exacerbation. #Sepsis most likely secondary to bilateral leg cellulitis vs UTI -Sepsis protocol -first lactic acid wnl; second pending -hold off IVF due to CHF and stable BP -Stat dose IV antibiotics given -continue zosyn 2.25mg q8h IVPB (renal dosed) -continue vancomycin 1250mg IVPB qd (calculated dose was >2grams due to patient weight; although due to MARCIAL, decreased does,(as vanc+zosyn can worsen MARCIAL) -follow up blood -f/u crp/esr -ID consulted #UA positive: -f/u urine culture #acute on chronic systolic heart failure class III-IV -stat lasix 40mg IV in ER -hold torsemide today; restart tomorrow -strict I/Os; daily weights -cont aspirin 81mg po daily, atorvastatin 40mg po HS, coreg 6.25po daily -start CLAUDE-I/ARB once renal function improves -last echo 05/29 revealed EF 34%; mod global hypokinesis -has ICD -cardiology consulted #Acute kidney injury (stage I) on chronic kidney injury stage 3B (moderate) -most likely secondary to sepsis -check urine electrolytes, urine creatinine, FeNA -avoid nephrotoxic agents -renal dose medications #IDDM: -cont home dose insulin 70U sq daily -insulin SS -BGM Q4H #COPD: -short of breath most likely due to CHF exac; not wheezing; lung sounds decreased -continue 3L NC; monitor pulse ox keep )2 88-94% -duoneb q4h prn -pulmonary consulted #bilateral leg swelling secondary to chronic venous stasis: -r/o dvt with vascular study #Gout: -allopurinol 100mg po daily #hx of DVT: -cont xarelto 15mg po daily #hx of lung nodule; resolved as per last chest CT 05/29 #depression: -cont fluoxetine 40mg po daily FEN: FLuids: restrict Electrolytes: wnl; trend due to diuretics Diet: diabetic VTE: prophylaxis heparin sq Disposition: ICU cardiac monitoring for now; IV antibiotics Problem List - Problem (1) Sepsis Code(s): A41.9 - SEPSIS, UNSPECIFIED ORGANISM Qualifiers: Qualified Code(s): A41.9 - Sepsis, unspecified organism (2) CKD (chronic kidney disease) Code(s): N18.9 - CHRONIC KIDNEY DISEASE, UNSPECIFIED Qualifiers: Qualified Code(s): N18.3 - Chronic kidney disease, stage 3 (moderate) (3) Acute on chronic systolic and diastolic heart failure, NYHA class 4 Code(s): I50.43 - ACUTE ON CHRONIC COMBINED SYSTOLIC AND DIASTOLIC HRT FAIL (4) COPD (chronic obstructive pulmonary disease) Code(s): J44.9 - CHRONIC OBSTRUCTIVE PULMONARY DISEASE, UNSPECIFIED (5) Dyspnea on exertion Code(s): R06.09 - OTHER FORMS OF DYSPNEA (6) Elevated troponin I level Code(s): R79.89 - OTHER SPECIFIED ABNORMAL FINDINGS OF BLOOD CHEMISTRY (7) Heart failure, systolic, with acute decompensation Code(s): I50.23 - ACUTE ON CHRONIC SYSTOLIC (CONGESTIVE) HEART FAILURE (8) Hepatitis B Code(s): B19.10 - UNSPECIFIED VIRAL HEPATITIS B WITHOUT HEPATIC COMA (9) Hx of CABG Code(s): Z95.1 - PRESENCE OF AORTOCORONARY BYPASS GRAFT (10) Hyperglycemia Code(s): R73.9 - HYPERGLYCEMIA, UNSPECIFIED (11) Ischemic cardiomyopathy Code(s): I25.5 - ISCHEMIC CARDIOMYOPATHY (12) LV dysfunction Code(s): I51.9 - HEART DISEASE, UNSPECIFIED (13) Lung nodule Code(s): R91.1 - SOLITARY PULMONARY NODULE (14) Morbid obesity Code(s): E66.01 - MORBID (SEVERE) OBESITY DUE TO EXCESS CALORIES Qualifiers: Qualified Code(s): E66.01 - Morbid (severe) obesity due to excess calories (15) S/P CABG (coronary artery bypass graft) Code(s): Z95.1 - PRESENCE OF AORTOCORONARY BYPASS GRAFT (16) CHF exacerbation Code(s): I50.9 - HEART FAILURE, UNSPECIFIED Qualifiers: Qualified Code(s): I50.9 - Heart failure, unspecified Visit type - Emergency Visit Emergency Visit: Yes ED Registration Date: 08/08/16 Care time: The patient presented to the Emergency Department on the above date and was hospitalized for further evaluation of their emergent condition. - New Patient This patient is new to me today: Yes Date on this admission: 08/09/16 - Critical Care Critical Care patient: Yes Total Critical Care Time (in minutes): 35 Critical Care Statement: The care of this patient involved high complexity decision making to prevent further life threatening deterioration of the patient 's condition and/or to evalute & treat vital organ system(s) failure or risk of failure.
[2016-08-08 22:10] LABS: MCH 30.4 pg (25.7-33.7); MEAN CELL VOLUME 92.1 fl (80-96); MEAN PLT VOLUME 8.4 fl (7.5-11.1); PLATELET COUNT 187 K/MM3 (134-434); RDW 17.9 % (11.9-15.9); WHITE BLOOD COUNT 13.2 K/mm3 (4.0-10.0)
[2016-08-08 22:33] LABS: INR 1.62 (0.82-1.09)
[2016-08-08 22:36] LABS: ACTIVATED PTT 27.6 SECONDS (26.9-34.4)
[2016-08-08 22:54] LABS: ALBUMIN 2.3 g/dl (3.4-5.0); ANION GAP 13 (8-16); CALCIUM 7.9 mg/dL (8.5-10.1); CO2 25 mmol/L (21-32); GLUCOSE,RANDOM 291 mg/dL (74-106); SGOT/AST 47 U/L (15-37)
[2016-08-08 23:00] LABS: ALK PHOS 408 U/L (45-117); BILIRUBIN,TOTAL 2.3 mg/dL (0.2-1.0); CREATININE 2.1 mg/dL (0.7-1.3); SGPT/ALT 46 U/L (12-78)
--- NOTE | 2016-08-08 23:08 | CONSULT ---
Consult Consult Specialty:: Pulm/CCM - History of Present Illness Chief Complaint: SOB and fever History of Present Illness: Patient is a 61 year old man with PMHx of ischemic cardiomyopathy, CHF (NYHA classification III -IV), history of CAD post NM, s/p 4 vessel CABG, cardiac arrest s/p ICD, type 2 diabetes mellitus, home O2 dependent COPD, CVA, hepatitis B, gout, CKD and right LE DVT on Xarelto with recent I&D of LUE ulcers who presents with worsened SOB and fever of 102 over past 2 days. He has BLE erythema and wound. In ED he was HD stable. Notable labs WBC 13.2 with 91% neut., lactic acid 1.9, BNP 9748. He was started on empiric antibiotics and was given Lasix 40 mg IVP. He denies chest pain or palpitations. Cardiology was consulted. He was transferred to ICU for further management. Pt rec'd A+O x3, HD stable, O2 sat 98% on 3L NC. He reported no N/V/D, chest pain, lightheadedness, or LE pain but did report malaise and decreased po intake. 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: CVA Cardio/Vascular: Yes: CAD, CHF (s/p defibrillator for cardiac arrest and low LVEF), Deep Vein Thrombosis, HTN, NM, Other (Ischemic cardiomyopathy) Pulmonary: Yes: Cancer (undocumented cell type), COPD Gastrointestinal: Yes: Ascites Hepatobiliary: Yes: Other Renal/: Yes: Renal Inusuff Infectious Disease: Yes: Other (Chronic lower extremity bilateral cellulitis ) Endocrine: Yes: Diabetes Mellitus - Past Surgical History Past Surgical History: Yes: AICD, CABG - Alcohol/Substance Use Hx Alcohol Use: No History of Substance Use: reports: None - Smoking History Smoking history: Former smoker Have you smoked in the past 12 months: Yes Aproximately how many cigarettes per day: 3 If you are a former smoker, when did you quit?: 2008 - Social History Usual Living Arrangement: With Spouse ADL: Independent 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 History of Recent Travel: No Home Medications - Allergies Allergies/Adverse Reactions: Allergies Allergy/AdvReac Type Severity Reaction Status Date / Time Iodinated Contrast Media - Allergy Verified 08/08/16 16:23 Oral and [Iodinated Contrast Media - IV Dye] raw fruits/vegetables Allergy Intermediate Rash Uncoded 08/08/16 16:23 iv contrast dye Allergy Uncoded 08/08/16 16:23 - Home Medications Home Medications: Ambulatory Orders Acetaminophen with Codeine [Acetaminophen-Cod #3 Tablet] 1 each PO Q4HWA PRN Allopurinol [Zyloprim -] 100 mg PO DAILY 06/24/16 Aspirin [ASA -] 81 mg PO AM 06/24/16 Atorvastatin Calcium 40 mg PO HS 06/24/16 Carvedilol [Coreg -] 6.25 mg PO BID 06/24/16 Cholecalciferol (Vitamin D3) [Vitamin D -] 1,000 mg PO DAILY 06/24/16 Colchicine 0.6 mg PO DAILY 06/24/16 Famotidine/Ca Carb/Mag Hydrox [Pepcid Complete Tablet Chew] 1 each PO AM Fluoxetine HCl [Prozac] 40 mg PO HS 06/24/16 Insulin (Levemir) [Levemir Vial] 70 unit SQ AM 06/24/16 Insulin Regular, Human [Humulin R U-500 Kwikpen] 15 - 20 unit SQ AC 06/24/16 Ipratropium/Albuterol Sulfate [Iprat-Albut 0.5-3(2.5) mg/3 ml] 3 ml IH DAILY PRN 06/24/16 Liraglutide [Victoza -] 1.8 mg SQ DAILY@0700 06/24/16 Lorazepam 0.5 mg PO HS 06/24/16 Oxycodone HCl/Acetaminophen [Oxycodone-Acetaminophen 5-325] 1 each PO Q6H PRN Rivaroxaban [Xarelto -] 15 mg PO DAILY 06/24/16 Sennosides/Docusate Sodium [Senna Laxative Tablet] 8.6 mg PO HS 06/24/16 Tamsulosin HCl [Flomax -] 0.4 mg PO DAILY 06/24/16 Torsemide 200 mg PO DAILY 06/24/16 Trazodone HCl 50 mg PO HS 06/24/16 Family Disease History - Family Disease History Family Disease History: Other: Father, Mother, Brother, Sister Review of Systems - Review of Systems Constitutional: reports: Loss of Appetite Eyes: reports: No Symptoms HENT: reports: No Symptoms Neck: reports: No Symptoms Cardiovascular: reports: Shortness of Breath Respiratory: reports: SOB Genitourinary: reports: No Symptoms Integumentary: reports: Erythema (BLE edema and redness; LUE incisional wounds with serosang), Lesions, Other (Lt third toe nail missing 2/2 trauma,) Neurological: reports: No Symptoms Endocrine: reports: No Symptoms Hematology/Lymphatic: reports: No Symptoms Psychiatric: reports: No Symptoms Physical Exam Vital Signs: Vital Signs Temperature 99.1 F 08/08/16 20:22 Pulse Rate 91 H 08/08/16 20:22 Respiratory Rate 26 H 08/08/16 20:22 Blood Pressure 110/56 08/08/16 20:22 O2 Sat by Pulse Oximetry (%) 4 L 08/08/16 20:22 Constitutional: Yes: Obese Eyes: Yes: WNL HENT: Yes: Other (hard of hearing) Neck: Yes: WNL Cardiovascular: Yes: Pulse Irregular Respiratory: Yes: Regular, On Nasal O2 Gastrointestinal: Yes: Soft, Abdomen, Obese Renal/: Yes: WNL Extremities: Yes: Erythema (warm, small superficial ulcers; missing Lt foot 3rd toe nail) Edema: LUE: Trace, RUE: Trace, LLE: Trace, RLE: Trace Peripheral Pulses WNL: Yes Integumentary: Yes: Erythema Wound/Incision: Yes: Dressing Dry and Intact, Reddened, Other (small amt slough in lt forearm wound) Neurological: Yes: Alert, Oriented, Other ...Motor Strength: WNL Psychiatric: Yes: Alert, Oriented Labs: CBC, BMP 08/08/16 21:35 CBC,CMP WBC 13.2 K/mm3 (4.0-10.0) H 08/08/16 21:35 RBC 3.37 M/mm3 (4.00-5.60) L 08/08/16 21:35 Hgb 10.2 GM/dL (11.7-16.9) L D 08/08/16 21:35 Hct 31.0 % (35.4-49) L 08/08/16 21:35 MCV 92.1 fl (80-96) 08/08/16 21:35 MCHC 33.0 g/dl (32.0-35.9) 08/08/16 21:35 RDW 17.9 % (11.9-15.9) H 08/08/16 21:35 Plt Count 187 K/MM3 (134-434) 08/08/16 21:35 MPV 8.4 fl (7.5-11.1) 08/08/16 21:35 Neutrophils % 91.5 % (42.8-82.8) H D 08/08/16 17:10 Lymphocytes % 3.1 % (8-40) L D 08/08/16 17:10 Monocytes % 4.9 % (3.8-10.2) 08/08/16 17:10 Eosinophils % 0.2 % (0-4.5) 08/08/16 17:10 Basophils % 0.3 % (0-2.0) 08/08/16 17:10 Sodium 136 mmol/L (136-145) 08/08/16 21:35 Potassium 3.9 mmol/L (3.5-5.1) 08/08/16 21:35 Chloride 98 mmol/L (98-107) 08/08/16 21:35 Carbon Dioxide 25 mmol/L (21-32) 08/08/16 21:35 Anion Gap 13 (8-16) 08/08/16 21:35 BUN 32 mg/dL (7-18) H 08/08/16 21:35 Creatinine 2.1 mg/dL (0.7-1.3) H 08/08/16 21:35 Creat Clearance w eGFR 32.27 (>60) 08/08/16 21:35 Random Glucose 291 mg/dL (74-106) H D 08/08/16 21:35 Lactic Acid 1.9 mmol/L (0.4-2.0) 08/08/16 17:10 Calcium 7.9 mg/dL (8.5-10.1) L 08/08/16 21:35 Total Bilirubin 2.3 mg/dL (0.2-1.0) H 08/08/16 21:35 AST 47 U/L (15-37) H 08/08/16 21:35 ALT 46 U/L (12-78) 08/08/16 21:35 Alkaline Phosphatase 408 U/L (45-117) H 08/08/16 21:35 Creatine Kinase 124 IU/L (39-308) 08/08/16 21:35 Troponin I 0.10 ng/ml (0.00-0.05) H 08/08/16 21:35 B-Natriuretic Peptide 9748.17 pg/ml (5-125) H 08/08/16 17:51 Total Protein 6.0 g/dl (6.4-8.2) L 08/08/16 21:35 Albumin 2.3 g/dl (3.4-5.0) L 08/08/16 21:35 Imaging - Results Chest X-ray: Report Reviewed (no definitive infiltrate or pleural effusion seen ; mild vascular congestion) Ultrasound: Pending (BLE US is pending) Problem List - Problems (1) COPD exacerbation Code(s): J44.1 - CHRONIC OBSTRUCTIVE PULMONARY DISEASE W (ACUTE) EXACERBATION (2) Diabetes mellitus Code(s): E11.9 - TYPE 2 DIABETES MELLITUS WITHOUT COMPLICATIONS Qualifiers: Diabetes mellitus type: type 2 Diabetes mellitus complication status: with kidney complications Diabetes mellitus complication detail: with chronic kidney disease Diabetes mellitus correction insulin use: with correction use Chronic kidney disease stage: stage 4 (severe) Qualified Code(s): E11.22 - Type 2 diabetes mellitus with diabetic chronic kidney disease ; N18.1 - Chronic kidney disease, stage 1; Z79.4 - technician terminal and repeater (current) use of insulin (3) Sepsis Code(s): A41.9 - SEPSIS, UNSPECIFIED ORGANISM Qualifiers: Sepsis type: sepsis due to unspecified organism Qualified Code(s): A41.9 - Sepsis, unspecified organism (4) CKD (chronic kidney disease) Code(s): N18.9 - CHRONIC KIDNEY DISEASE, UNSPECIFIED Qualifiers: Chronic kidney disease stage: stage 3 (moderate) Qualified Code(s): N18.3 - Chronic kidney disease, stage 3 (moderate) (5) COPD (chronic obstructive pulmonary disease) Code(s): J44.9 - CHRONIC OBSTRUCTIVE PULMONARY DISEASE, UNSPECIFIED Qualifiers : COPD type: chronic bronchitis Assessment/Plan 61 year old man with PMHx of ischemic cardiomyopathy, CHF (NYHA classification III -IV), history of CAD post NM, s/p 4 vessel CABG, cardiac arrest s/p ICD, DMII, COPD, CVA, HBV, gout, CKD and right LE DVT on Xarelto with recent I&D of LUE ulcers who presents with worsened SOB and fever of 102 admitted to ICU with possible sepsis 2/2 to BLE cellulitis c/b CHF exacerbation, MARCIAL. Plan: ID: Recent I/D of LUE lesions; BLE erythema and warmth m/l cellulitis -ID consult -f/u cultures -Continue empiric Zosyn and vanco Pulm/CV: Sepsis; CHF exacerbation; A-fib; COPD on home O2 -Cards consult -apprec recs - Cont NC O2 for O2 sat>95% -Cont nebs -LE dopplers to R/O DVT/PE -Continue anticoagulation -Laisx for net even to slightly negative -Gentle IVF if needed for hypotension -SBP parameters for antiHTN meds; hold if hypotensive -TTE -Monitor trop and lactate Renal: MARCIAL in stting of sepsis, CHF exacerbation -Monitor BMP and UOP -PO hydration -Diuresis as needed for net even as BP tolerates -Replete electrolytes -Renal dose meds GI: Elevated bilis -Monitor LFTs -Advance diet -Fingersticks -Cont insulin coverage
[2016-08-08 23:32] VITALS: BMI 36.8
[2016-08-08] MEDS: MUPIROCIN 2% TOPICAL OINTMENT FOR DECOLONIZATION NS SCH (23:34)
[2016-08-08] MEDS: CARVEDILOL 6.25 MG TABLET (FP) PO SCH (23:35)
[2016-08-08] MEDS: HEPARIN NA (PORCINE) 5,000 UNITS/ML 1ML VIAL SQ SCH (23:35)
[2016-08-08] MEDS: SENNOSIDES/DOCUSATE COMBO (SENNA PLUS) TABLET (UD) PO SCH (23:35)
[2016-08-08] MEDS: CHLORHEXIDINE GLUCONATE 4% CLEANSER FOR DECOLONIZATION TP SCH (23:35)
[2016-08-08] MEDS: ATORVASTATIN CA 40 MG TABLET (FP) PO SCH (23:35)
[2016-08-08] MEDS: FLUoxetine HCL 20 MG CAPSULE (FP) PO SCH (23:36)
[2016-08-08] MEDS: LORazepam 0.5 MG TABLET PO SCH (23:36)
[2016-08-08] MEDS: INSULIN SLIDING SCALE (NOVOLOG) 1 VIAL SQ SCH (23:47)
[2016-08-09] MEDS: PIPERACILLIN/TAZOB 2.25 GM 50 ML IVPB SCH ×5 (01:45→21:35)
[2016-08-09 03:19] LABS: URINE APPEARANCE CLOUDY; URINE BILIRUBIN NEGATIVE (NEGATIVE); URINE COLOR YELLOW; URINE GLUCOSE (UA) 3+ (NEGATIVE); URINE KETONE TRACE (NEGATIVE); URINE NITRITE NEGATIVE (NEGATIVE); URINE PROTEIN NEGATIVE (NEGATIVE); URINE UROBILINOGEN NEGATIVE E.U./dl (0.2-1.0)
[2016-08-09 03:37] LABS: URINE BLOOD 1+ (NEGATIVE); URINE LEUK ESTERASE 3+ (NEGATIVE)
[2016-08-09 04:24] LABS: URINE BACTERIA FEW /hpf (NONE SEEN); URINE RBC 9 /hpf (0-3); URINE WBC 1107 /hpf (3-5)
[2016-08-09 06:08] LABS: BASOPHIL 0.1 % (0-2.0); MCH 30.3 pg (25.7-33.7); MCHC 32.8 g/dl (32.0-35.9); MEAN CELL VOLUME 92.3 fl (80-96); MEAN PLT VOLUME 8.4 fl (7.5-11.1); NEUTROPHILS 93.9 % (42.8-82.8); PLATELET COUNT 164 K/MM3 (134-434); RDW 17.6 % (11.9-15.9); WHITE BLOOD COUNT 11.3 K/mm3 (4.0-10.0)
[2016-08-09] MEDS: HEPARIN NA (PORCINE) 5,000 UNITS/ML 1ML VIAL SQ SCH (06:14)
--- NOTE | 2016-08-09 06:19 | PN ---
Physical Exam: SUBJECTIVE: Patient seen and examined. c/o feeling thirsty and urination this morning denies chest pain, palpitations, cough, fever, headache, abdominal pain, diarrhea/constipation, sob. OBJECTIVE: Vital Signs Period Temp Pulse Resp BP Sys/Mcconnell Pulse Ox Last 24 Hr 97.2 F-99.1 F 75-97 20-26 99-124/55-82 4-100 GENERAL: The patient is awake, alert, and fully oriented, in no acute distress. HEAD: Normal with no signs of trauma. EYES: PERRL, extraocular movements intact, sclera anicteric, conjunctiva clear. No ptosis. ENT: oropharynx clear without exudates, moist mucous membranes, edentulism NECK: Trachea midline, full range of motion, supple. thick neck LUNGS: Breath sounds equal, clear to auscultation bilaterally, left lower base with few crackles. HEART: Regular rate and rhythm, S1, S2 without murmur, rub or gallop. ABDOMEN: Soft, nontender, obese, nondistended, normoactive bowel sounds, no guarding, no rebound EXTREMITIES: 2+ radial pulses, cool extremities, b/l loer extremity erythema with left second toenail missing, 2 scabs on anterior lower with bleeding, right with yellow scab anteriorly below knee, no ulcers with purulent discharge/ warmth/tenderness. right 4th digit with nonerythematous/nondraining eschar anteriorly. decreased rom on abduction at right shoulder, mild ttp. no swelling/ecchymosis/ erythema. full rom on left should abduction. 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 Normal speech. Laboratory Results - last 24 hr 08/08/16 08/08/16 08/08/16 19:05 21:35 21:35 WBC 13.2 H RBC 3.37 L Hgb 10.2 L D Hct 31.0 L MCV 92.1 MCHC 33.0 RDW 17.9 H Plt Count 187 MPV 8.4 Neutrophils % Lymphocytes % Monocytes % Eosinophils % Basophils % INR 1.62 H PTT (Actin FS) 27.6 Puncture Site Right radial ABG pH 7.45 ABG pCO2 at Pt Temp 38.9 D ABG pO2 at Pt Temp 61.7 L D ABG HCO3 26.7 H ABG O2 Sat (Measured) 92.1 ABG O2 Content 13.1 L ABG Base Excess 3.0 H Henry Test Positive O2 Delivery Device Nasal Oxygen Flow Rate 4l PEEP 0.0 Sodium Potassium Chloride Carbon Dioxide Anion Gap BUN Creatinine Creat Clearance w eGFR POC Glucometer Random Glucose Lactic Acid Calcium Total Bilirubin AST ALT Alkaline Phosphatase Creatine Kinase Troponin I Total Protein Albumin Urine Color Urine Appearance Urine pH Urine Protein Urine Glucose (UA) Urine Ketones Urine Blood Urine Nitrite Urine Bilirubin Urine Urobilinogen Ur Leukocyte Esterase Urine RBC Urine WBC Urine Bacteria Ur Random Sodium Ur Random Potassium Ur Random Chloride Urine Creatinine 08/08/16 08/08/16 08/09/16 21:35 23:47 02:30 WBC RBC Hgb Hct MCV MCHC RDW Plt Count MPV Neutrophils % Lymphocytes % Monocytes % Eosinophils % Basophils % INR PTT (Actin FS) Puncture Site ABG pH ABG pCO2 at Pt Temp ABG pO2 at Pt Temp ABG HCO3 ABG O2 Sat (Measured) ABG O2 Content ABG Base Excess Henry Test O2 Delivery Device Oxygen Flow Rate PEEP Sodium 136 Potassium 3.9 Chloride 98 Carbon Dioxide 25 Anion Gap 13 BUN 32 H Creatinine 2.1 H Creat Clearance w eGFR 32.27 POC Glucometer 365.50039 Random Glucose 291 H D Lactic Acid 1.4 Calcium 7.9 L Total Bilirubin 2.3 H AST 47 H ALT 46 Alkaline Phosphatase 408 H Creatine Kinase 124 Troponin I 0.10 H Total Protein 6.0 L Albumin 2.3 L Urine Color Urine Appearance Urine pH Urine Protein Urine Glucose (UA) Urine Ketones Urine Blood Urine Nitrite Urine Bilirubin Urine Urobilinogen Ur Leukocyte Esterase Urine RBC Urine WBC Urine Bacteria Ur Random Sodium Ur Random Potassium Ur Random Chloride Urine Creatinine 08/09/16 08/09/16 08/09/16 02:45 02:45 02:45 WBC RBC Hgb Hct MCV MCHC RDW Plt Count MPV Neutrophils % Lymphocytes % Monocytes % Eosinophils % Basophils % INR PTT (Actin FS) Puncture Site ABG pH ABG pCO2 at Pt Temp ABG pO2 at Pt Temp ABG HCO3 ABG O2 Sat (Measured) ABG O2 Content ABG Base Excess Henry Test O2 Delivery Device Oxygen Flow Rate PEEP Sodium Potassium Chloride Carbon Dioxide Anion Gap BUN Creatinine Creat Clearance w eGFR POC Glucometer Random Glucose Lactic Acid Calcium Total Bilirubin AST ALT Alkaline Phosphatase Creatine Kinase Troponin I Total Protein Albumin Urine Color Yellow Urine Appearance Cloudy Urine pH 5.0 Urine Protein Negative Urine Glucose (UA) 3+ H Urine Ketones Trace H Urine Blood 1+ H Urine Nitrite Negative Urine Bilirubin Negative Urine Urobilinogen Negative Ur Leukocyte Esterase 3+ H Urine RBC 9 Urine WBC 1107 Urine Bacteria Few Ur Random Sodium 20 Ur Random Potassium 23.2 Ur Random Chloride 11 Urine Creatinine 65.4 08/09/16 05:45 WBC 11.3 H RBC 3.54 L Hgb 10.7 L Hct 32.7 L MCV 92.3 MCHC 32.8 RDW 17.6 H Plt Count 164 MPV 8.4 Neutrophils % 93.9 H Lymphocytes % 2.0 L D Monocytes % 4.0 Eosinophils % 0.0 D Basophils % 0.1 INR PTT (Actin FS) Puncture Site ABG pH ABG pCO2 at Pt Temp ABG pO2 at Pt Temp ABG HCO3 ABG O2 Sat (Measured) ABG O2 Content ABG Base Excess Henry Test O2 Delivery Device Oxygen Flow Rate PEEP Sodium Potassium Chloride Carbon Dioxide Anion Gap BUN Creatinine Creat Clearance w eGFR POC Glucometer Random Glucose Lactic Acid Calcium Total Bilirubin AST ALT Alkaline Phosphatase Creatine Kinase Troponin I Total Protein Albumin Urine Color Urine Appearance Urine pH Urine Protein Urine Glucose (UA) Urine Ketones Urine Blood Urine Nitrite Urine Bilirubin Urine Urobilinogen Ur Leukocyte Esterase Urine RBC Urine WBC Urine Bacteria Ur Random Sodium Ur Random Potassium Ur Random Chloride Urine Creatinine Active Medications Generic Name Dose Route Start Last Admin Trade Name Freq PRN Reason Stop Dose Admin Albuterol/Ipratropium 1 amp 08/08/16 20:49 Duoneb - NEB DAILY PRN SHORT OF BREATH/WHEEZING Allopurinol 100 mg 08/09/16 10:00 Zyloprim - PO DAILY MAGEN Aspirin 81 mg 08/09/16 07:00 08/09/16 06:14 Asa - PO 81 mg AM MAGEN Administration Atorvastatin Calcium 40 mg 08/08/16 22:00 08/08/16 23:35 Lipitor - PO 40 mg HS MAGEN Administration Carvedilol 6.25 mg 08/08/16 22:00 08/08/16 23:35 Coreg - PO Not Given BID MAGEN Chlorhexidine Gluconate 1 applic 08/08/16 22:00 08/08/16 23:35 Hibiclens For Decolonization - TP 1 applic HS MAGEN Administration Cholecalciferol 400 unit 06/28/17 10:00 Vitamin D3 - PO DAILY MAGEN Colchicine 0.6 mg 08/09/16 10:00 Colcrys - PO DAILY MAGEN Fluoxetine HCl 40 mg 08/08/16 22:00 08/08/16 23:36 Prozac - PO 40 mg HS MAGEN Administration Heparin Sodium (Porcine) 5,000 unit 08/08/16 22:00 08/09/16 06:14 Heparin - SQ 5,000 unit TID MAGEN Administration Vancomycin HCl 1,250 mg/ 250 mls @ 250 mls/hr 08/10/16 10:00 Dextrose IVPB DAILY MAGEN Protocol Piperacillin Sod/Tazobactam Sod 50 mls @ 100 mls/hr 08/09/16 18:00 Zosyn 2.25gm Ivpb (Pre-Docked) IVPB Q8H-IV MAGEN Protocol Vancomycin HCl 1,250 mg/ 250 mls @ 250 mls/hr 08/09/16 10:00 Dextrose IVPB 08/09/16 10:59 ONCE ONE Protocol Piperacillin Sod/Tazobactam Sod 50 mls @ 100 mls/hr 08/09/16 02:00 08/09/16 01: 45 Zosyn 2.25gm Ivpb (Pre-Docked) IVPB 08/09/16 10:29 100 mls/hr Q8H-IV MAGEN Administration Protocol Insulin Aspart 1 vial 08/08/16 22:00 08/08/16 23:47 Novolog Vial Sliding Scale - SQ 10 units ACHS MAGEN Administration Protocol Insulin Detemir 70 units 08/09/16 07:00 Levemir Vial SQ AM MAGEN Lorazepam 0.5 mg 08/08/16 22:00 08/08/16 23:36 Ativan - PO 0.5 mg HS MAGEN Administration Mupirocin 1 applic 08/08/16 22:00 08/08/16 23:34 Bactroban Ointment (For Decolonization) - NS 08/13/16 21:59 1 applic BID MAGEN Administration Ranitidine HCl 150 mg 08/09/16 07:00 Zantac - PO AM MAGEN Rivaroxaban 15 mg 08/09/16 10:00 Xarelto - PO DAILY MAGEN Senna/Docusate Sodium 2 tablet 08/08/16 22:00 08/08/16 23:35 Pericolace - PO 2 tablet HS MAGEN Administration Tamsulosin HCl 0.4 mg 08/09/16 10:00 Flomax - PO DAILY MAGEN Torsemide 200 mg 08/09/16 10:00 Demadex - PO DAILY MAGEN ASSESSMENT/PLAN: 61 yr old man with HTN, DM II- uncontrolled, CAD, CHF with reduced EF and increased RV systolic pressure(ischemic cardiomyopathy),hx of ME, 4 vessel CABG , cardiac arrest s/p ICD placement, home O2 2.5L continuous-dependent due to COPD, CVA, hepatitis B, gout, CKD and right LE DVT on Xarelto. Infectious Disease sepsis secondary to uti - zosyn 2.25mg q6h IVPB -follow up blood and urine cx, bld cx with gram neg bacilli - vanc dc'd consulted Dr. Hernandez Cardiovascular acute on chronic CHF daily weights demadax 200mg po daily was on lasix yesterday with good urine output cont home meds: aspirin 81mg po daily, atorvastatin 40mg po HS, coreg 6.25po daily consult Dr. Hawley Renal MARCIAL on CKD - likely prerenal hypoperfusion in setting of poor po intake and CHF -avoid nephrotoxic medications Endocrine DM II uncontrolled insulin sliding scale, bgm q4hr for close monitoring insulin 70 units HS sq Pulmonary COPD- does not appear to be in exacerbation maintain saturatoin 88-92% duoneb q4h prn consult: Dr. Castillo(outpatient physician as well) Rheumatological Gout allopurinol 100mg po daily Hematological hx of DVT: - xarelto 15mg po daily Psych depression: -cont fluoxetine 40mg po daily Dermatological can f/u as outpatient for wound care with Dr. Quispe for LE ulcers, likely from venous stasis, keep clean and dry Diet: diabetic diet DVT; on xarelto Dispo: can be monitor in med-surg Visit type - Emergency Visit Emergency Visit: No - New Patient This patient is new to me today: Yes Date on this admission: 08/09/16 - Critical Care Critical Care patient: Yes Total Critical Care Time (in minutes): 36 Critical Care Statement: The care of this patient involved high complexity decision making to prevent further life threatening deterioration of the patient 's condition and/or to evalute & treat vital organ system(s) failure or risk of failure.
[2016-08-09 06:30] LABS: ALBUMIN 2.3 g/dl (3.4-5.0); ANION GAP 11 (8-16); BILIRUBIN,TOTAL 2.2 mg/dL (0.2-1.0); CALCIUM 8.3 mg/dL (8.5-10.1); CO2 27 mmol/L (21-32); MAGNESIUM 1.9 mg/dL (1.8-2.4); PHOSPHOROUS 4.7 mg/dL (2.5-4.9); SGOT/AST 43 U/L (15-37); SGPT/ALT 49 U/L (12-78)
[2016-08-09 06:31] LABS: ALK PHOS 401 U/L (45-117)
[2016-08-09 06:44] LABS: GLUCOSE,RANDOM 472 mg/dL (74-106)
[2016-08-09] MEDS ORDERED: ASPIRIN 81 MG CHEWABLE TABLETS PO SCH (07:00)
[2016-08-09] MEDS: INSULIN SLIDING SCALE (NOVOLOG) 1 VIAL SQ SCH ×4 (07:44→22:21)
[2016-08-09] MEDS: INSULIN DETEMIR 100 UNITS/ML MDV SQ SCH (07:44)
--- NOTE | 2016-08-09 08:26 | PN ---
Progress Note, Physician Chief Complaint: ID Full note dictated Alert Dysuria noted with chills weakness rigors - Current Medication List Current Medications: Active Medications Albuterol/Ipratropium (Duoneb -) 1 amp NEB DAILY PRN PRN Reason: SHORT OF BREATH/WHEEZING Allopurinol (Zyloprim -) 100 mg PO DAILY [facility] Aspirin (Asa -) 81 mg PO AM [facility] Last Admin: 08/09/16 06:14 Dose: 81 mg Atorvastatin Calcium (Lipitor -) 40 mg PO HS [facility] Last Admin: 08/08/16 23:35 Dose: 40 mg Carvedilol (Coreg -) 6.25 mg PO BID [facility] Last Admin: 08/08/16 23:35 Dose: Not Given Chlorhexidine Gluconate (Hibiclens For Decolonization -) 1 applic TP HS [facility] Last Admin: 08/08/16 23:35 Dose: 1 applic Cholecalciferol (Vitamin D3 -) 400 unit PO DAILY [facility] Colchicine (Colcrys -) 0.6 mg PO DAILY [facility] Fluoxetine HCl (Prozac -) 40 mg PO HS [facility] Last Admin: 08/08/16 23:36 Dose: 40 mg Heparin Sodium (Porcine) (Heparin -) 5,000 unit SQ TID [facility] Last Admin: 08/09/16 06:14 Dose: 5,000 unit Vancomycin HCl 1,250 mg/ (Dextrose) 250 mls @ 250 mls/hr IVPB DAILY [facility] PRN Reason: Protocol Piperacillin Sod/Tazobactam Sod (Zosyn 2.25gm Ivpb (Pre-Docked)) 50 mls @ 100 mls/hr IVPB Q8H-IV [facility] PRN Reason: Protocol Vancomycin HCl 1,250 mg/ (Dextrose) 250 mls @ 250 mls/hr IVPB ONCE ONE PRN Reason: Protocol Stop: 08/09/16 10:59 Piperacillin Sod/Tazobactam Sod (Zosyn 2.25gm Ivpb (Pre-Docked)) 50 mls @ 100 mls/hr IVPB Q8H-IV [facility] PRN Reason: Protocol Stop: 08/09/16 10:29 Last Admin: 08/09/16 01:45 Dose: 100 mls/hr Insulin Aspart (Novolog Vial Sliding Scale -) 1 vial SQ ACHS [facility] PRN Reason: Protocol Last Admin: 08/09/16 07:44 Dose: 12 units Insulin Detemir (Levemir Vial) 70 units SQ AM [facility] Last Admin: 08/09/16 07:44 Dose: 70 units Lorazepam (Ativan -) 0.5 mg PO HS [facility] Last Admin: 08/08/16 23:36 Dose: 0.5 mg Mupirocin (Bactroban Ointment (For Decolonization) -) 1 applic NS BID [facility] Stop: 08/13/16 21:59 Last Admin: 08/08/16 23:34 Dose: 1 applic Ranitidine HCl (Zantac -) 150 mg PO AM MAGEN Rivaroxaban (Xarelto -) 15 mg PO DAILY [facility] Senna/Docusate Sodium (Pericolace -) 2 tablet PO HS [facility] Last Admin: 08/08/16 23:35 Dose: 2 tablet Tamsulosin HCl (Flomax -) 0.4 mg PO DAILY [facility] Torsemide (Demadex -) 200 mg PO DAILY [facility] - Objective Vital Signs: Vital Signs Temperature 98 F 08/09/16 06:00 Pulse Rate 74 08/09/16 07:00 Respiratory Rate 14 08/09/16 07:00 Blood Pressure 118/79 08/09/16 07:00 O2 Sat by Pulse Oximetry (%) 100 08/08/16 22:00 Cardiovascular: Yes: S1, S2 Respiratory: Yes: Diminished Gastrointestinal: Yes: Soft Extremities: Yes: Erythema Edema: Yes Labs: CBC, BMP 08/09/16 05:45 08/09/16 05:45 INR, PTT INR 1.62 (0.82-1.09) H 08/08/16 21:35 Problem List - Problems (1) Diabetes mellitus Code(s): E11.9 - TYPE 2 DIABETES MELLITUS WITHOUT COMPLICATIONS Qualifiers: Diabetes mellitus type: type 2 Diabetes mellitus complication status: with kidney complications Diabetes mellitus complication detail: with chronic kidney disease Diabetes mellitus chcf insulin use: with chcf use Chronic kidney disease stage: stage 4 (severe) Qualified Code(s): E11.22 - Type 2 diabetes mellitus with diabetic chronic kidney disease ; N18.1 - Chronic kidney disease, stage 1; Z79.4 - assistant terminal manager (current) use of insulin (2) Sepsis Code(s): A41.9 - SEPSIS, UNSPECIFIED ORGANISM Qualifiers: Sepsis type: sepsis due to unspecified organism Qualified Code(s): A41.9 - Sepsis, unspecified organism (3) UTI (urinary tract infection) Code(s): N39.0 - URINARY TRACT INFECTION, SITE NOT SPECIFIED Assessment/Plan Microbiology 07/04/16 12:00 Abscess Gram Stain - Final 07/04/16 12:00 Abscess Wound Culture - Final S Aureus Laboratory Tests 08/08/16 08/09/16 08/09/16 21:35 02:45 05:45 WBC 11.3 H Hgb 10.7 L Hct 32.7 L Plt Count 164 ESR INR 1.62 H BUN Creatinine Creat Clearance w eGFR Random Glucose Total Bilirubin AST ALT Alkaline Phosphatase C-Reactive Protein Ur Leukocyte Esterase 3+ H Urine WBC 1107 08/09/16 08/09/16 08/09/16 05:45 05:45 05:45 WBC Hgb Hct Plt Count ESR 93 H INR BUN 35 H Creatinine 2.0 H Creat Clearance w eGFR 34.14 Random Glucose 472 H* D Total Bilirubin 2.2 H AST 43 H ALT 49 Alkaline Phosphatase 401 H C-Reactive Protein 16.9 H D Ur Leukocyte Esterase Urine WBC Assessment Urosepsis Bacteremia UTI IDDM History of MRSA Plan Await c/s Vancomycin level now Contact isolation Continue Talha Hernandez MD
--- NOTE | 2016-08-09 09:02 | CONS ---
INFECTIOUS DISEASE CONSULTATION DATE OF CONSULTATION: DATE OF DICTATION: 08/09/2016 This is a 61-year-old white male, known insulin-dependent diabetic, who I am asked to see in the intensive care unit for evaluation of sepsis. The patient is known to me as we had previously been involved in his care in a June admission, during which he developed a severe MRSA staphylococcus infection of his left arm, which required drainage by Dr. Albarran at that time. He is a known insulin-dependent diabetic and had been home with his , ambulating with a wheelchair when, for the last 2 days, he began to experience generalized weakness, dysuria, and shaking chills. This prompted his being brought to the emergency room where he was noted to be febrile, tachycardic, and dyspneic with a pO2 of 95. He was empirically given a gram of vancomycin and a dose of piperacillin/tazobactam. Currently, he appears comfortable, sitting in a chair, with no major complaints at this time. PAST MEDICAL HISTORY: Includes systolic heart failure, bypass surgery, ICD device, insulin-dependent diabetes, and COPD, chronic renal insufficiency. MEDICATIONS AT HOME: Allopurinol, aspirin, atorvastatin, carvedilol, colchicine, insulin, tamsulosin, torsemide, and trazodone. ALLERGIES TO MEDICATION: None known. SOCIAL HISTORY: A former smoker, gave this up in 2008. No history of alcohol, substance abuse. FAMILY HISTORY: Reviewed and noncontributory. REVIEW OF SYSTEMS: Respiratory: Mild shortness of breath, minimal cough. No sputum production. Cardiac: No chest pain, palpitations, or syncope. Gastrointestinal: No abdominal pain, nausea, vomiting, or diarrhea. Genitourinary: Positive dysuria. No gross hematuria. Positive urinary frequency. PHYSICAL EXAMINATION: General: He was an alert male, sitting in a chair, in no acute distress. Vital Signs: Temperature was 98, pulse 74, blood pressure 118/79, respirations 14. Neck: Supple. Lungs: Clear to percussion, with diminished breath sounds bilaterally. Heart: S1, S2. Regular rhythm, without audible murmur or gallop. Abdomen: Soft, nontender. No organomegaly, guarding, or rebound. Extremities: With 1+ lower extremity edema. Confluent erythema noted bilaterally on the lower legs with multiple dry ulcerated lesions on the toes and pretibial areas. LABORATORY DATA: The white count on admission 13.2, hemoglobin 10.2, platelets 187. ESR 93. INR 1.62. ABGs 7.45, 40, 62 on 4 L nasal cannula. BUN 35, creatinine 2.0. Glucose 472. Bilirubin 2.2. AST 43, alkaline phosphatase 401. CRP 16.9. Urinalysis: Leukocyte esterase 3+, RBCs 9, WBCs 1100. Blood and urine cultures pending. ASSESSMENT: A 61-year-old man, multiple comorbidities including heart failure and insulin-dependent diabetes, presents with sepsis syndrome. Normal lactic acid level noted on admission. Clinically, appears stable. Urinary tract most likely cause of infection. He is known to have methicillin-resistant Staphylococcus aureus from a wound culture on an abscess of his arm in June 2016. The possibility of gram-negative or staphylococcal sepsis is considered. The x-ray was also reviewed and shows a left-sided implantable cardioverter-defibrillator device in place, cardiomegaly, and pulmonary congestion. PLAN: 1. He has received 1 g of vancomycin. We will check a stat vancomycin level pending cultures. 2. Add Zosyn 2.25 g IV q.6 hours, again pending final cultures. 3. Contact isolation for [id number] organism, MRSA. 4. Await blood cultures, possible bacteremia. ANGELA EUGENE M.D. [id number]
[2016-08-09] MEDS ORDERED: PT OWN MED DRAWER 7, Y5N ONE ×2 (09:28→21:03)
[2016-08-09] MEDS: CARVEDILOL 6.25 MG TABLET (FP) PO SCH ×2 (09:42→21:36)
[2016-08-09] MEDS: TAMSULOSIN HCL 0.4 MG CAP.ER.24H (FP) PO SCH (09:42)
[2016-08-09] MEDS: RANITIDINE HCL 150 MG TABLET (FP) PO SCH (09:43)
[2016-08-09] MEDS ORDERED: COLCHICINE 0.6 MG TABLET (FP) PO SCH (10:00)
[2016-08-09] MEDS ORDERED: VANCOMYCIN 1,250 MG in DEXTROSE 5%-WATER - 250 ML IVPB ONE (10:00)
[2016-08-09] MEDS: MUPIROCIN 2% TOPICAL OINTMENT FOR DECOLONIZATION NS SCH ×2 (10:01→21:36)
--- NOTE | 2016-08-09 11:19 | PN ---
Teaching Attending Note Name of Resident: Jemima Yoder ATTENDING PHYSICIAN STATEMENT I saw and evaluated the patient. I reviewed the resident's note and discussed the case with the resident. I agree with the resident's findings and plan as documented. SUBJECTIVE: Pt seen and examined in the ICU. Feels better today. No further fevers. No nausea, vomiting. Blood cultures growing gram negative bacilli. OBJECTIVE: Last Vital Signs Temp Pulse Resp BP Pulse Ox 98.3 F 76 14 105/70 98 08/09/16 10:00 08/09/16 10:00 08/09/16 10:00 08/09/16 10:00 08/09/16 08:40 Intake & Output 08/06/16 08/07/16 08/08/16 08/09/16 23:59 23:59 23:59 23:59 Intake Total 500 50 Output Total 1600 Balance 500 -1550 Weight 249 lb 1 oz 249 lb 1 oz Gen: NAD in chair Heart: RRR Lung: decreased breath sounds at the bases Abd: soft, nontender Ext: chronic changes CBC, BMP 08/09/16 05:45 08/09/16 05:45 Active Medications Albuterol/Ipratropium (Duoneb -) 1 amp NEB DAILY PRN PRN Reason: SHORT OF BREATH/WHEEZING Allopurinol (Zyloprim -) 100 mg PO DAILY [facility] Aspirin (Asa -) 81 mg PO AM [facility] Last Admin: 08/09/16 06:14 Dose: 81 mg Atorvastatin Calcium (Lipitor -) 40 mg PO HS [facility] Last Admin: 08/08/16 23:35 Dose: 40 mg Carvedilol (Coreg -) 6.25 mg PO BID [facility] Last Admin: 08/09/16 09:42 Dose: 6.25 mg Chlorhexidine Gluconate (Hibiclens For Decolonization -) 1 applic TP HS [facility] Last Admin: 08/08/16 23:35 Dose: 1 applic Cholecalciferol (Vitamin D3 -) 400 unit PO DAILY [facility] Colchicine (Colcrys -) 0.6 mg PO DAILY [facility] Last Admin: 08/09/16 09:43 Dose: 0.6 mg Fluoxetine HCl (Prozac -) 40 mg PO HS [facility] Last Admin: 08/08/16 23:36 Dose: 40 mg Heparin Sodium (Porcine) (Heparin -) 5,000 unit SQ TID [facility] Last Admin: 08/09/16 06:14 Dose: 5,000 unit Piperacillin Sod/Tazobactam Sod (Zosyn 2.25gm Ivpb (Pre-Docked)) 50 mls @ 100 mls/hr IVPB Q6H-IV [facility] PRN Reason: Protocol Last Admin: 08/09/16 10:00 Dose: Not Given Insulin Aspart (Novolog Vial Sliding Scale -) 1 vial SQ ACHS [facility] PRN Reason: Protocol Last Admin: 08/09/16 07:44 Dose: 12 units Insulin Detemir (Levemir Vial) 70 units SQ AM [facility] Last Admin: 08/09/16 07:44 Dose: 70 units Lorazepam (Ativan -) 0.5 mg PO HS [facility] Last Admin: 08/08/16 23:36 Dose: 0.5 mg Mupirocin (Bactroban Ointment (For Decolonization) -) 1 applic NS BID [facility] Stop: 08/13/16 21:59 Last Admin: 08/09/16 10:01 Dose: 1 applic Ranitidine HCl (Zantac -) 150 mg PO AM [facility] Last Admin: 08/09/16 09:43 Dose: 150 mg Rivaroxaban (Xarelto -) 15 mg PO DAILY [facility] Senna/Docusate Sodium (Pericolace -) 2 tablet PO HS [facility] Last Admin: 08/08/16 23:35 Dose: 2 tablet Tamsulosin HCl (Flomax -) 0.4 mg PO DAILY [facility] Last Admin: 08/09/16 09:42 Dose: 0.4 mg Torsemide (Demadex -) 200 mg PO DAILY [facility] ASSESSMENT AND PLAN: UTI Sepsis LV Systolic Dysfunction Pulmonary HTN CAD s/p CABG Atrial Fibrillation COPD Chronic Hypoxic Respiratory Failure CKD - IV antibiotics - f/u cultures - rate controlled - continue anticoagulation - continue demadex - monitor urine output, creatinine - PO as tolerated - can monitor on floor
--- NOTE | 2016-08-09 11:45 | PN ---
Progress Note, Physician History of Present Illness: Resting comfortably in chair, not dyspneic, afebrile. - Current Medication List Current Medications: Active Medications Albuterol/Ipratropium (Duoneb -) 1 amp NEB DAILY PRN PRN Reason: SHORT OF BREATH/WHEEZING Allopurinol (Zyloprim -) 100 mg PO DAILY [facility] Aspirin (Asa -) 81 mg PO AM [facility] Last Admin: 08/09/16 06:14 Dose: 81 mg Atorvastatin Calcium (Lipitor -) 40 mg PO HS [facility] Last Admin: 08/08/16 23:35 Dose: 40 mg Carvedilol (Coreg -) 6.25 mg PO BID [facility] Last Admin: 08/09/16 09:42 Dose: 6.25 mg Chlorhexidine Gluconate (Hibiclens For Decolonization -) 1 applic TP HS [facility] Last Admin: 08/08/16 23:35 Dose: 1 applic Cholecalciferol (Vitamin D3 -) 400 unit PO DAILY [facility] Colchicine (Colcrys -) 0.6 mg PO DAILY [facility] Last Admin: 08/09/16 09:43 Dose: 0.6 mg Fluoxetine HCl (Prozac -) 40 mg PO HS [facility] Last Admin: 08/08/16 23:36 Dose: 40 mg Heparin Sodium (Porcine) (Heparin -) 5,000 unit SQ TID [facility] Last Admin: 08/09/16 06:14 Dose: 5,000 unit Piperacillin Sod/Tazobactam Sod (Zosyn 2.25gm Ivpb (Pre-Docked)) 50 mls @ 100 mls/hr IVPB Q6H-IV [facility] PRN Reason: Protocol Last Admin: 08/09/16 10:00 Dose: Not Given Insulin Aspart (Novolog Vial Sliding Scale -) 1 vial SQ ACHS [facility] PRN Reason: Protocol Last Admin: 08/09/16 07:44 Dose: 12 units Insulin Detemir (Levemir Vial) 70 units SQ AM [facility] Last Admin: 08/09/16 07:44 Dose: 70 units Lorazepam (Ativan -) 0.5 mg PO HS [facility] Last Admin: 08/08/16 23:36 Dose: 0.5 mg Mupirocin (Bactroban Ointment (For Decolonization) -) 1 applic NS BID [facility] Stop: 08/13/16 21:59 Last Admin: 08/09/16 10:01 Dose: 1 applic Ranitidine HCl (Zantac -) 150 mg PO AM [facility] Last Admin: 08/09/16 09:43 Dose: 150 mg Rivaroxaban (Xarelto -) 15 mg PO DAILY [facility] Senna/Docusate Sodium (Pericolace -) 2 tablet PO HS [facility] Last Admin: 08/08/16 23:35 Dose: 2 tablet Tamsulosin HCl (Flomax -) 0.4 mg PO DAILY [facility] Last Admin: 08/09/16 09:42 Dose: 0.4 mg Torsemide (Demadex -) 200 mg PO DAILY [facility] - Objective Vital Signs: Vital Signs Temperature 98.3 F 08/09/16 10:00 Pulse Rate 76 08/09/16 10:00 Respiratory Rate 14 08/09/16 10:00 Blood Pressure 105/70 08/09/16 10:00 O2 Sat by Pulse Oximetry (%) 98 08/09/16 08:40 Constitutional: Yes: No Distress, Calm Neck: Yes: Supple Cardiovascular: Yes: Pulse Irregular Respiratory: Yes: Regular, Diminished, On Nasal O2 Gastrointestinal: Yes: Normal Bowel Sounds, Soft, Abdomen, Obese Edema: Yes Edema: LLE: Trace, RLE: Trace Labs: CBC, BMP 08/09/16 05:45 08/09/16 05:45 INR, PTT INR 1.62 (0.82-1.09) H 08/08/16 21:35 - ....Imaging Ultrasound: Report Reviewed (No DVT bilaterally) Problem List - Problems (1) Diabetes mellitus Code(s): E11.9 - TYPE 2 DIABETES MELLITUS WITHOUT COMPLICATIONS Qualifiers: Diabetes mellitus type: type 2 Diabetes mellitus complication status: with kidney complications Diabetes mellitus complication detail: with chronic kidney disease Diabetes mellitus prison insulin use: with keno terminal operator use Chronic kidney disease stage: stage 4 (severe) Qualified Code(s): E11.22 - Type 2 diabetes mellitus with diabetic chronic kidney disease ; N18.1 - Chronic kidney disease, stage 1; Z79.4 - exterminator termite (current) use of insulin (2) Sepsis Code(s): A41.9 - SEPSIS, UNSPECIFIED ORGANISM Qualifiers: Sepsis type: sepsis due to unspecified organism Qualified Code(s): A41.9 - Sepsis, unspecified organism (3) UTI (urinary tract infection) Code(s): N39.0 - URINARY TRACT INFECTION, SITE NOT SPECIFIED Qualifiers: Urinary tract infection type: site unspecified Hematuria presence: without hematuria Qualified Code(s): N39.0 - Urinary tract infection, site not specified (4) Acute on chronic systolic and diastolic heart failure, NYHA class 4 Code(s): I50.43 - ACUTE ON CHRONIC COMBINED SYSTOLIC AND DIASTOLIC HRT FAIL (5) COPD (chronic obstructive pulmonary disease) Code(s): J44.9 - CHRONIC OBSTRUCTIVE PULMONARY DISEASE, UNSPECIFIED Qualifiers : COPD type: chronic bronchitis (6) DVT prophylaxis Code(s): NOP1834 - (7) Hx of CABG Code(s): Z95.1 - PRESENCE OF AORTOCORONARY BYPASS GRAFT (8) Ischemic cardiomyopathy Code(s): I25.5 - ISCHEMIC CARDIOMYOPATHY (9) Morbid obesity Code(s): E66.01 - MORBID (SEVERE) OBESITY DUE TO EXCESS CALORIES Qualifiers: Obesity type: due to excess calories Qualified Code(s): E66.01 - Morbid (severe) obesity due to excess calories (10) Poor compliance Code(s): Z91.19 - PATIENT'S NONCOMPLIANCE W OTH MEDICAL TREATMENT AND REGIMEN (11) S/P CABG (coronary artery bypass graft) Code(s): Z95.1 - PRESENCE OF AORTOCORONARY BYPASS GRAFT (12) Severe left ventricular systolic dysfunction Code(s): I51.9 - HEART DISEASE, UNSPECIFIED (13) Single implantable cardioverter-defibrillator (ICD) in situ Code(s): Z95.810 - PRESENCE OF AUTOMATIC (IMPLANTABLE) CARDIAC DEFIBRILLATOR (14) Tobacco abuse Code(s): Z72.0 - TOBACCO USE (15) ASHD (arteriosclerotic heart disease) Code(s): I25.10 - ATHSCL HEART DISEASE OF [place] CORONARY ARTERY W/O ANG PCTRS (16) Diabetes mellitus, insulin dependent (IDDM), uncontrolled Code(s): E10.65 - TYPE 1 DIABETES MELLITUS WITH HYPERGLYCEMIA Qualifiers: Diabetes mellitus complication detail: with polyneuropathy (17) Obstructive sleep apnea of adult Code(s): G47.33 - OBSTRUCTIVE SLEEP APNEA (ADULT) (PEDIATRIC) Assessment/Plan 1. Chronic LV systolic failure with NYHA classification 3-4 heart failure with ischemic cardiomyopathy with pulm HTN 2. Urosepsis gram negative bacillus bacteremia, h/o MRSA 3. CAD S/P CABG, angina pectoris 4. History of cardiac arrest S/P ICD 5. Chronic hypoxic respiratory failure with home O2 dependent COPD and pulmonary nodules 6. Type 2 diabetes mellitus 7. CVA 8. CKD 9. Morbid obesity 10. History of RLE DVT 11. Persistent atrial fibrillation on NOAC 12. OSAS noncompliant with cpap PLAN: 1. Continue Demadex 200 qd with monitor diuretic response, renal fxn and electrolytes 2. Continue abx course per C&S 3. Continue Carvedilol 6.25 bid, Atorvastatin 40 qhs and d/c ASA while on NOAC 4. Resume ACEI/ARB once renal fxn stabilizes 5. Continue Xarelto and d/c sq heparin, GI prophylaxis, cpap nightly
[2016-08-09] MEDS: RIVAROXABAN 15 MG TABLET PO SCH (11:55)
[2016-08-09] MEDS: TORSEMIDE 100 MG TABLET PO SCH (11:57)
[2016-08-09] MEDS: CHOLECALCIFEROL (VITAMIN D3) 400 UNIT TABLET (FP) PO SCH (11:58)
[2016-08-09] MEDS: ALLOPURINOL 100 MG TABLET (FP) PO SCH (11:58)
[2016-08-09 13:33] LABS: ANION GAP 10 (8-16); CALCIUM 8.3 mg/dL (8.5-10.1); CO2 29 mmol/L (21-32); CREATININE 1.9 mg/dL (0.7-1.3)
[2016-08-09 13:37] LABS: GLUCOSE,RANDOM 536 mg/dL (74-106)
[2016-08-09] MEDS ORDERED: INSULIN REGULAR HUMAN 100 UNITS/ML *VIAL IVPUSH ONE ×3 (14:37→18:11)
--- NOTE | 2016-08-09 15:09 | PN ---
Teaching Attending Note Name of Resident: Melinda Carrillo ATTENDING PHYSICIAN STATEMENT I saw and evaluated the patient. I reviewed the resident's note and discussed the case with the resident. I agree with the resident's findings and plan as documented. SUBJECTIVE: no fever or chills, feels much better , has no SOB or CP . reports dysuria x 1 week OBJECTIVE: NAD, AAOx3 CV: RRR, no MRG , has no JVD. Abd : soft, obese , NT, ND . Lungs : CTAB Ext : edema and erythema on LE , scattered superficial ulcers on legs. L arm with small wound ( 2 cm ) , with minimal purulent drainage weakness in L shoulder noticed due to rotator cuff problem ASSESSMENT AND PLAN: 61 y/o man with h/o ICM , CKD , S CHF , CABG, s/p cardiac arrest , R LE DVT , and DM who presented with SOB and not feeling well and was found to have sepsis 2/2 UTI and bacteremia 1- Sepsis 2/2 UTI and bacteremia : prelim blood Cx pending organism. cont zosyn vanco given for L arm wound with h/o MRSA . vanco level in am . ID on board 2- poorly controlled Dm , no signs of DKA . he has not been using SSI at home lately - cont SSi - Cont Levemirt 70 units in am - give 8 units of IV regulalr insulin 3- Acute S CHF : volume status is better . diuresed 1500 cc after 40 of IV lasix. - cont demadex at home dose . - cont coreg - no need to repeat echo - per Card dc asa 4- h/o DVT : cont xarelto. will check with PCP regarding his Ac 5- CKD : base line Cr 1.7-2 . monitor 7- Tx out of ICU to tele
--- NOTE | 2016-08-09 15:09 | PN ---
Physical Exam: SUBJECTIVE: Patient seen and examined at bed side this morning. No complaints this morning. Feels well. Denies chest pain, sob, cough, palpitation, abdominal pain, nausea or vomiting. Bowel/Bladder habit normal. Sleep/Appetite normal OBJECTIVE: Vital Signs Period Temp Pulse Resp BP Sys/Mcconnell Pulse Ox Last 24 Hr 97.2 F-99.1 F 74-97 12-26 93-124/55-82 4-100 GENERAL: Obese male, sitting comfortably in bed, awake, alert, and fully oriented, in no acute distress. HEAD: Normal with no signs of trauma. EYES: EOM intact, no pallor or icterus. ENT: Ears normal,moist mucous membranes. NECK: Trachea midline, full range of motion, supple, No JVD. LUNGS: B/L Breath sounds decreased, clear to auscultation bilaterally, no wheezes, no crackles, no accessory muscle use. HEART: Regular rate and rhythm, S1, S2 soft systolic murmur. ABDOMEN: Soft, tenderness on palpation over the left lower quadrant, nondistended, normoactive bowel sounds, no guarding, no rebound, no hepatosplenomegaly, no masses. UPPER EXTREMITIES: 2+ pulses, warm, well-perfused. Left forearm: around 1.5 cm x 1 cm incision on the left forearm with minimal serosanguinous drainage, area looks clean, no abscess noted. LOWER EXTREMITIES: 2+ pulses, warm, well-perfused, B/L pitting edema up to mid calf. B/L LE erythema, B/L blisters, superfical ulcers, no serosanguinous fluids, multiple scabbed wounds on the LE. NEUROLOGICAL: No facial droop, bulk/tone normal, power-5/5 in all extremities except in the lower extremities which are 4/5 Cranial nerves II through XII grossly intact. Normal speech, gait not observed. PSYCH: Normal mood, normal affect. SKIN: Warm, dry, normal turgor, no rashes or lesions noted Laboratory Results - last 24 hr 08/08/16 08/08/16 08/08/16 19:05 21:35 21:35 WBC 13.2 H RBC 3.37 L Hgb 10.2 L D Hct 31.0 L MCV 92.1 MCHC 33.0 RDW 17.9 H Plt Count 187 MPV 8.4 Neutrophils % Lymphocytes % Monocytes % Eosinophils % Basophils % ESR INR 1.62 H PTT (Actin FS) 27.6 Puncture Site Right radial ABG pH 7.45 ABG pCO2 at Pt Temp 38.9 D ABG pO2 at Pt Temp 61.7 L D ABG HCO3 26.7 H ABG O2 Sat (Measured) 92.1 ABG O2 Content 13.1 L ABG Base Excess 3.0 H Henry Test Positive O2 Delivery Device Nasal Oxygen Flow Rate 4l PEEP 0.0 Sodium Potassium Chloride Carbon Dioxide Anion Gap BUN Creatinine Creat Clearance w eGFR POC Glucometer Random Glucose Hemoglobin A1c % Lactic Acid Calcium Phosphorus Magnesium Total Bilirubin AST ALT Alkaline Phosphatase Creatine Kinase Troponin I C-Reactive Protein Total Protein Albumin Urine Color Urine Appearance Urine pH Ur Specific [place] Urine Protein Urine Glucose (UA) Urine Ketones Urine Blood Urine Nitrite Urine Bilirubin Urine Urobilinogen Ur Leukocyte Esterase Urine RBC Urine WBC Urine Bacteria Ur Random Sodium Ur Random Potassium Ur Random Chloride Urine Creatinine 08/08/16 08/08/16 08/09/16 21:35 23:47 02:30 WBC RBC Hgb Hct MCV MCHC RDW Plt Count MPV Neutrophils % Lymphocytes % Monocytes % Eosinophils % Basophils % ESR INR PTT (Actin FS) Puncture Site ABG pH ABG pCO2 at Pt Temp ABG pO2 at Pt Temp ABG HCO3 ABG O2 Sat (Measured) ABG O2 Content ABG Base Excess Henry Test O2 Delivery Device Oxygen Flow Rate PEEP Sodium 136 Potassium 3.9 Chloride 98 Carbon Dioxide 25 Anion Gap 13 BUN 32 H Creatinine 2.1 H Creat Clearance w eGFR 32.27 POC Glucometer [id number] Random Glucose 291 H D Hemoglobin A1c % Lactic Acid 1.4 Calcium 7.9 L Phosphorus Magnesium Total Bilirubin 2.3 H AST 47 H ALT 46 Alkaline Phosphatase 408 H Creatine Kinase 124 Troponin I 0.10 H C-Reactive Protein Total Protein 6.0 L Albumin 2.3 L Urine Color Urine Appearance Urine pH Ur Specific [place] Urine Protein Urine Glucose (UA) Urine Ketones Urine Blood Urine Nitrite Urine Bilirubin Urine Urobilinogen Ur Leukocyte Esterase Urine RBC Urine WBC Urine Bacteria Ur Random Sodium Ur Random Potassium Ur Random Chloride Urine Creatinine 08/09/16 08/09/16 08/09/16 02:45 02:45 02:45 WBC RBC Hgb Hct MCV MCHC RDW Plt Count MPV Neutrophils % Lymphocytes % Monocytes % Eosinophils % Basophils % ESR INR PTT (Actin FS) Puncture Site ABG pH ABG pCO2 at Pt Temp ABG pO2 at Pt Temp ABG HCO3 ABG O2 Sat (Measured) ABG O2 Content ABG Base Excess Henry Test O2 Delivery Device Oxygen Flow Rate PEEP Sodium Potassium Chloride Carbon Dioxide Anion Gap BUN Creatinine Creat Clearance w eGFR POC Glucometer Random Glucose Hemoglobin A1c % Lactic Acid Calcium Phosphorus Magnesium Total Bilirubin AST ALT Alkaline Phosphatase Creatine Kinase Troponin I C-Reactive Protein Total Protein Albumin Urine Color Yellow Urine Appearance Cloudy Urine pH 5.0 Ur Specific [place] <= 1.005 Urine Protein Negative Urine Glucose (UA) 3+ H Urine Ketones Trace H Urine Blood 1+ H Urine Nitrite Negative Urine Bilirubin Negative Urine Urobilinogen Negative Ur Leukocyte Esterase 3+ H Urine RBC 9 Urine WBC 1107 Urine Bacteria Few Ur Random Sodium 20 Ur Random Potassium 23.2 Ur Random Chloride 11 Urine Creatinine 65.4 08/09/16 08/09/16 08/09/16 05:45 05:45 05:45 WBC 11.3 H RBC 3.54 L Hgb 10.7 L Hct 32.7 L MCV 92.3 MCHC 32.8 RDW 17.6 H Plt Count 164 MPV 8.4 Neutrophils % 93.9 H Lymphocytes % 2.0 L D Monocytes % 4.0 Eosinophils % 0.0 D Basophils % 0.1 ESR INR PTT (Actin FS) Puncture Site ABG pH ABG pCO2 at Pt Temp ABG pO2 at Pt Temp ABG HCO3 ABG O2 Sat (Measured) ABG O2 Content ABG Base Excess Henry Test O2 Delivery Device Oxygen Flow Rate PEEP Sodium 137 Potassium 3.9 Chloride 99 Carbon Dioxide 27 Anion Gap 11 BUN 35 H Creatinine 2.0 H Creat Clearance w eGFR 34.14 POC Glucometer Random Glucose 472 H* D Hemoglobin A1c % Lactic Acid Calcium 8.3 L Phosphorus 4.7 D Magnesium 1.9 Total Bilirubin 2.2 H AST 43 H ALT 49 Alkaline Phosphatase 401 H Creatine Kinase Troponin I C-Reactive Protein 16.9 H D Total Protein 6.0 L Albumin 2.3 L Urine Color Urine Appearance Urine pH Ur Specific [place] Urine Protein Urine Glucose (UA) Urine Ketones Urine Blood Urine Nitrite Urine Bilirubin Urine Urobilinogen Ur Leukocyte Esterase Urine RBC Urine WBC Urine Bacteria Ur Random Sodium Ur Random Potassium Ur Random Chloride Urine Creatinine 08/09/16 08/09/16 08/09/16 05:45 05:45 05:45 WBC RBC Hgb Hct MCV MCHC RDW Plt Count MPV Neutrophils % Lymphocytes % Monocytes % Eosinophils % Basophils % ESR 93 H INR PTT (Actin FS) Puncture Site ABG pH ABG pCO2 at Pt Temp ABG pO2 at Pt Temp ABG HCO3 ABG O2 Sat (Measured) ABG O2 Content ABG Base Excess [place] Test O2 Delivery Device Oxygen Flow Rate PEEP Sodium Potassium Chloride Carbon Dioxide Anion Gap BUN Creatinine Creat Clearance w eGFR POC Glucometer > 400 Random Glucose Hemoglobin A1c % Lactic Acid Calcium Phosphorus Magnesium Total Bilirubin AST ALT Alkaline Phosphatase Creatine Kinase Troponin I 0.05 D C-Reactive Protein Total Protein Albumin Urine Color Urine Appearance Urine pH Ur Specific [place] Urine Protein Urine Glucose (UA) Urine Ketones Urine Blood Urine Nitrite Urine Bilirubin Urine Urobilinogen Ur Leukocyte Esterase Urine RBC Urine WBC Urine Bacteria Ur Random Sodium Ur Random Potassium Ur Random Chloride Urine Creatinine 08/09/16 08/09/16 08/09/16 06:00 09:58 11:15 WBC RBC Hgb Hct MCV MCHC RDW Plt Count MPV Neutrophils % Lymphocytes % Monocytes % Eosinophils % Basophils % ESR INR PTT (Actin FS) Puncture Site ABG pH ABG pCO2 at Pt Temp ABG pO2 at Pt Temp ABG HCO3 ABG O2 Sat (Measured) ABG O2 Content ABG Base Excess Henry Test O2 Delivery Device Oxygen Flow Rate PEEP Sodium Potassium Chloride Carbon Dioxide Anion Gap BUN Creatinine Creat Clearance w eGFR POC Glucometer > 400 Random Glucose Hemoglobin A1c % 10.5 H D Lactic Acid Calcium Phosphorus Magnesium Total Bilirubin AST ALT Alkaline Phosphatase Creatine Kinase Troponin I 0.05 C-Reactive Protein Total Protein Albumin Urine Color Urine Appearance Urine pH Ur Specific [place] Urine Protein Urine Glucose (UA) Urine Ketones Urine Blood Urine Nitrite Urine Bilirubin Urine Urobilinogen Ur Leukocyte Esterase Urine RBC Urine WBC Urine Bacteria Ur Random Sodium Ur Random Potassium Ur Random Chloride Urine Creatinine 08/09/16 08/09/16 12:01 12:29 WBC RBC Hgb Hct MCV MCHC RDW Plt Count MPV Neutrophils % Lymphocytes % Monocytes % Eosinophils % Basophils % ESR INR PTT (Actin FS) Puncture Site ABG pH ABG pCO2 at Pt Temp ABG pO2 at Pt Temp ABG HCO3 ABG O2 Sat (Measured) ABG O2 Content ABG Base Excess Henry Test O2 Delivery Device Oxygen Flow Rate PEEP Sodium 136 Potassium 3.9 Chloride 97 L Carbon Dioxide 29 Anion Gap 10 BUN 39 H Creatinine 1.9 H Creat Clearance w eGFR POC Glucometer > 400 Random Glucose 536 H* Hemoglobin A1c % Lactic Acid Calcium 8.3 L Phosphorus Magnesium Total Bilirubin AST ALT Alkaline Phosphatase Creatine Kinase Troponin I C-Reactive Protein Total Protein Albumin Urine Color Urine Appearance Urine pH Ur Specific [place] Urine Protein Urine Glucose (UA) Urine Ketones Urine Blood Urine Nitrite Urine Bilirubin Urine Urobilinogen Ur Leukocyte Esterase Urine RBC Urine WBC Urine Bacteria Ur Random Sodium Ur Random Potassium Ur Random Chloride Urine Creatinine Active Medications Generic Name Dose Route Start Last Admin Trade Name Freq PRN Reason Stop Dose Admin Albuterol/Ipratropium 1 amp 08/08/16 20:49 Duoneb - NEB DAILY PRN SHORT OF BREATH/WHEEZING Allopurinol 100 mg 08/09/16 10:00 08/09/16 11:58 Zyloprim - PO 100 mg DAILY MAGEN Administration Atorvastatin Calcium 40 mg 08/08/16 22:00 08/08/16 23:35 Lipitor - PO 40 mg HS MAGEN Administration Carvedilol 6.25 mg 08/08/16 22:00 08/09/16 09:42 Coreg - PO 6.25 mg BID MAGEN Administration Chlorhexidine Gluconate 1 applic 08/08/16 22:00 08/08/16 23:35 Hibiclens For Decolonization - TP 1 applic HS MAGEN Administration Cholecalciferol 400 unit 08/09/16 10:00 08/09/16 11:58 Vitamin D3 - PO 400 unit DAILY MAGEN Administration Colchicine 0.6 mg 08/09/16 10:00 08/09/16 09:43 Colcrys - PO 0.6 mg DAILY MAGEN Administration Fluoxetine HCl 40 mg 08/08/16 22:00 08/08/16 23:36 Prozac - PO 40 mg HS MAGEN Administration Piperacillin Sod/Tazobactam Sod 50 mls @ 100 mls/hr 08/09/16 09:00 08/09/16 10: 00 Zosyn 2.25gm Ivpb (Pre-Docked) IVPB Not Given Q6H-IV MAGEN Protocol Insulin Aspart 1 vial 08/08/16 22:00 08/09/16 12:08 Novolog Vial Sliding Scale - SQ 12 units ACHS MAGEN Administration Protocol Insulin Detemir 70 units 08/09/16 07:00 08/09/16 07:44 Levemir Vial SQ 70 units AM MAGEN Administration Lorazepam 0.5 mg 08/08/16 22:00 08/08/16 23:36 Ativan - PO 0.5 mg HS MAGEN Administration Mupirocin 1 applic 08/08/16 22:00 08/09/16 10:01 Bactroban Ointment (For Decolonization) - NS 08/13/16 21:59 1 applic BID MAGEN Administration Ranitidine HCl 150 mg 08/09/16 07:00 08/09/16 09:43 Zantac - PO 150 mg AM MAGEN Administration Rivaroxaban 15 mg 08/09/16 10:00 08/09/16 11:55 Xarelto - PO 15 mg DAILY MAGEN Administration Senna/Docusate Sodium 2 tablet 08/08/16 22:00 08/08/16 23:35 Pericolace - PO 2 tablet HS MAGEN Administration Tamsulosin HCl 0.4 mg 08/09/16 10:00 08/09/16 09:42 Flomax - PO 0.4 mg DAILY MAGEN Administration Torsemide 200 mg 08/09/16 10:00 08/09/16 11:57 Demadex - PO 200 mg DAILY MAGEN Administration ASSESSMENT/PLAN: Patient is a 61 year old male with past medical history of ischemic cardiomyopathy, congestive heart failure class III-IV, s/p CABG, ICD, IDDM, COPD , diabetic leg ulcers; presented to the emergency room with fever, chills, sob, admitted for sepsis and acute CHF exacerbation. # Sepsis most likely secondary to UTI and Gram negative bacteremia Has urinary symptoms like dysuria, increased frequency UA: 1 +blood, 3+LE, WBC 1107, f/up urine cultures Blood cultures-gram negative bacilli, pending org IV Zosyn 2.25gm IV Q6H started Vancomycin was given for previous abscess in the forearm s/p I and D (Had MRSA) ID consult appreciated # Acute kidney injury on chronic kidney injury stage 3B Calculated fena is 0.4 % but probably not accurate since he was on Lasix Baseline creatinine is around 1.7-2 Avoid nephrotoxic agents # Acute on chronic systolic heart failure class III-IV ECHO 06/05/16: Left ventricle severely dialted, left ventricular systolic function severely reduced. Severe global hypokinesis of left ventricle, pacemaker lead in the right ventricle, Mild-mod MR and TR, Right ventricular systolic pressure elevated at 30-40mmHg Received one dose of Lasix 40mg in ER, continue home medication Torsemide 200mg Daily Daily weights, strict I's and O's, negative 2950 balance Continue Aspirin 81mg PO daily, Atorvastatin 40mg PO HS, Coreg 6.25 po daily (Not in pharmacy) Cardiology consult requested # Uncontrolled Diabetes Mellitus HbA1c 10.5 this admission Continue Insulin 70U sq daily Insulin sliding scale BGM Q4H Patient said he hasn't been taking insulin sliding scale since few days since his pen broke, also takes Victoza at home. # COPD on home oxygen-Not in exacerbation Oxygen PRN (Maintain saturation .88%- 92%) Duoneb Q4H prn # H/O DVT of lower ext;Chronic venous stasis with b/l LE superficial ulcers DVT of LE ruled out Traced previous Vascular study, didn't find any evidence of DVT in the past, confirmed patient had DVT in one of the leg and is on Xarelto 15mg PO since 3 months # Gout-No flare Continue allopurinol 100mg PO daily, will keep it daily considering his kidney function. At home he is on 100mg BID # Depression Continue fluoxetine 40mg po daily Doesn't take Lorazepam 0.5mg at home, will bring all medications tomorrow and will d/c after confirming it. # FEN: Not on IV fluids. Restrict 1.5 L/day Electrolytes to be repeated tomorrow Diabetic diet # Prophylaxis For DVT: Already on Xarelto For GI: Not indicated Called pharmacy to confirm the medications. Few medications are not in the pharmacy: Lorazepam, Victoza, colchicine hasnt been picked up since April, # Disposition: Admitted in the ICU but now stable to be transferred in Tele with continuous cardiac monitoring. Duration of stay unknown. Case seen and discussed with Dr. Olguin. Visit type - Emergency Visit Emergency Visit: Yes ED Registration Date: 08/08/16 Care time: The patient presented to the Emergency Department on the above date and was hospitalized for further evaluation of their emergent condition. - New Patient This patient is new to me today: Yes Date on this admission: 08/09/16 - Critical Care Critical Care patient: Yes Total Critical Care Time (in minutes): 45 Critical Care Statement: The care of this patient involved high complexity decision making to prevent further life threatening deterioration of the patient 's condition and/or to evalute & treat vital organ system(s) failure or risk of failure.
[2016-08-09] MEDS ORDERED: PIPERACILLIN/TAZOB 2.25 GM 50 ML IVPB SCH (18:00)
[2016-08-09] MEDS: LORazepam 0.5 MG TABLET PO SCH (21:35)
[2016-08-09] MEDS: ATORVASTATIN CA 40 MG TABLET (FP) PO SCH (21:35)
[2016-08-09] MEDS: SENNOSIDES/DOCUSATE COMBO (SENNA PLUS) TABLET (UD) PO SCH (21:36)
[2016-08-09] MEDS: CHLORHEXIDINE GLUCONATE 4% CLEANSER FOR DECOLONIZATION TP SCH (21:36)
[2016-08-09] MEDS ORDERED: INSULIN (NOVOLOG) ASPART 100 UNITS/ML 10ML VIAL ONE (21:54)
[2016-08-09] MEDS ORDERED: oxyCODONE HCL 5 MG TABLET ONE (22:19)
[2016-08-09] MEDS: FLUoxetine HCL 20 MG CAPSULE (FP) PO SCH (22:21)
[2016-08-09] MEDS ORDERED: OXYCODONE/APAP 5/325MG COMBO TABLET PO PRN (22:27)
[2016-08-09] MEDS: ACETAMINOPHEN 325 MG TABLET (FP) PO PRN (22:38)
[2016-08-09] MEDS: oxyCODONE HCL 5 MG TABLET PO PRN (22:43)
[2016-08-10] MEDS: PIPERACILLIN/TAZOB 2.25 GM 50 ML IVPB SCH ×2 (02:05→09:12)
[2016-08-10] MEDS: INSULIN DETEMIR 100 UNITS/ML MDV SQ SCH (06:22)
[2016-08-10] MEDS: INSULIN SLIDING SCALE (NOVOLOG) 1 VIAL SQ SCH ×3 (06:22→21:38)
[2016-08-10] MEDS: RANITIDINE HCL 150 MG TABLET (FP) PO SCH (06:23)
[2016-08-10 07:00] LABS: MCH 30.8 pg (25.7-33.7); MCHC 33.2 g/dl (32.0-35.9); MEAN CELL VOLUME 92.8 fl (80-96); MEAN PLT VOLUME 8.8 fl (7.5-11.1); PLATELET COUNT 166 K/MM3 (134-434); RDW 17.7 % (11.9-15.9); WHITE BLOOD COUNT 12.2 K/mm3 (4.0-10.0)
[2016-08-10 07:07] LABS: ANION GAP 7 (8-16); CO2 32 mmol/L (21-32); GLUCOSE,RANDOM 293 mg/dL (74-106)
[2016-08-10 07:09] LABS: CREATININE 1.7 mg/dL (0.7-1.3)
[2016-08-10] MEDS ORDERED: PT OWN MED DRAWER 7, Y5N ONE ×2 (08:57→09:23)
[2016-08-10] MEDS: CARVEDILOL 6.25 MG TABLET (FP) PO SCH ×2 (09:10→21:30)
[2016-08-10] MEDS: TORSEMIDE 100 MG TABLET PO SCH (09:10)
[2016-08-10] MEDS: CHOLECALCIFEROL (VITAMIN D3) 400 UNIT TABLET (FP) PO SCH (09:11)
[2016-08-10] MEDS: TAMSULOSIN HCL 0.4 MG CAP.ER.24H (FP) PO SCH (09:11)
[2016-08-10] MEDS: RIVAROXABAN 15 MG TABLET PO SCH (09:11)
[2016-08-10] MEDS: ALLOPURINOL 100 MG TABLET (FP) PO SCH (09:12)
[2016-08-10] MEDS: oxyCODONE HCL 5 MG TABLET PO PRN ×2 (09:30→18:14)
[2016-08-10] MEDS: ACETAMINOPHEN 325 MG TABLET (FP) PO PRN ×2 (09:32→17:56)
[2016-08-10] MEDS: MUPIROCIN 2% TOPICAL OINTMENT FOR DECOLONIZATION NS SCH ×2 (09:33→21:33)
--- NOTE | 2016-08-10 09:52 | PN ---
Physical Exam: SUBJECTIVE: Patient seen and examined. feels better. looking forward to physical therapy, wants to be able to walk around. denies fevers, chest pain, palpitations, difficulty breathing. OBJECTIVE: Vital Signs Period Temp Pulse Resp BP Sys/Mcconnell Pulse Ox Last 24 Hr 97.7 F-98.5 F 71-81 12-23 92-113/55-77 99-99 GENERAL: in no acute distress. EYES: PERRL, extraocular movements intact, sclera anicteric, conjunctiva clear. No ptosis. ENT: oropharynx clear without exudates, moist mucous membranes, edentulism LUNGS: Breath sounds equal, clear to auscultation bilaterally, left lower base with few crackles. HEART: Regular rate and rhythm, S1, S2 without murmur, rub or gallop. ABDOMEN: Soft, nontender, obese, nondistended, normoactive bowel sounds, no guarding, no rebound EXT: cool feet, left forearm with draining ulcer dressing cdi. Laboratory Results - last 24 hr 08/09/16 08/09/16 08/09/16 02:45 09:58 11:15 WBC RBC Hgb Hct MCV MCHC RDW Plt Count MPV Sodium Potassium Chloride Carbon Dioxide Anion Gap BUN Creatinine POC Glucometer > 400 Random Glucose Calcium Troponin I 0.05 Urine Color Yellow Urine Appearance Cloudy Urine pH 5.0 Ur Specific [place] <= 1.005 Urine Protein Negative Urine Glucose (UA) 3+ H Urine Ketones Trace H Urine Blood 1+ H Urine Nitrite Negative Urine Bilirubin Negative Urine Urobilinogen Negative Ur Leukocyte Esterase 3+ H Urine RBC 9 Urine WBC 1107 Urine Bacteria Few Vancomycin Pre-Dose 08/09/16 08/09/16 08/09/16 12:01 12:29 14:34 WBC RBC Hgb Hct MCV MCHC RDW Plt Count MPV Sodium 136 Potassium 3.9 Chloride 97 L Carbon Dioxide 29 Anion Gap 10 BUN 39 H Creatinine 1.9 H POC Glucometer > 400 > 400 Random Glucose 536 H* Calcium 8.3 L Troponin I Urine Color Urine Appearance Urine pH Ur Specific [place] Urine Protein Urine Glucose (UA) Urine Ketones Urine Blood Urine Nitrite Urine Bilirubin Urine Urobilinogen Ur Leukocyte Esterase Urine RBC Urine WBC Urine Bacteria Vancomycin Pre-Dose 08/09/16 08/09/16 08/09/16 16:30 18:07 19:39 WBC RBC Hgb Hct MCV MCHC RDW Plt Count MPV Sodium Potassium Chloride Carbon Dioxide Anion Gap BUN Creatinine POC Glucometer > 400 365.89720 283.09575 Random Glucose Calcium Troponin I Urine Color Urine Appearance Urine pH Ur Specific [place] Urine Protein Urine Glucose (UA) Urine Ketones Urine Blood Urine Nitrite Urine Bilirubin Urine Urobilinogen Ur Leukocyte Esterase Urine RBC Urine WBC Urine Bacteria Vancomycin Pre-Dose 08/09/16 08/10/16 08/10/16 22:01 05:36 05:50 WBC 12.2 H RBC 3.42 L Hgb 10.5 L Hct 31.7 L MCV 92.8 MCHC 33.2 RDW 17.7 H Plt Count 166 MPV 8.8 Sodium Potassium Chloride Carbon Dioxide Anion Gap BUN Creatinine POC Glucometer 383.36641 344.44388 Random Glucose Calcium Troponin I Urine Color Urine Appearance Urine pH Ur Specific [place] Urine Protein Urine Glucose (UA) Urine Ketones Urine Blood Urine Nitrite Urine Bilirubin Urine Urobilinogen Ur Leukocyte Esterase Urine RBC Urine WBC Urine Bacteria Vancomycin Pre-Dose 08/10/16 08/10/16 05:50 08:10 WBC RBC Hgb Hct MCV MCHC RDW Plt Count MPV Sodium 139 Potassium 3.5 Chloride 100 Carbon Dioxide 32 Anion Gap 7 L BUN 45 H Creatinine 1.7 H POC Glucometer Random Glucose 293 H D Calcium 8.0 L Troponin I Urine Color Urine Appearance Urine pH Ur Specific [place] Urine Protein Urine Glucose (UA) Urine Ketones Urine Blood Urine Nitrite Urine Bilirubin Urine Urobilinogen Ur Leukocyte Esterase Urine RBC Urine WBC Urine Bacteria Vancomycin Pre-Dose 2.555 L* Active Medications Generic Name Dose Route Start Last Admin Trade Name Mikeq PRN Reason Stop Dose Admin Acetaminophen 325 mg 08/09/16 22:36 08/10/16 09:32 Tylenol - PO 08/12/16 22:35 325 mg Q4H PRN Administration PAIN LEVEL 1-5 Albuterol/Ipratropium 1 amp 08/08/16 20:49 Duoneb - NEB DAILY PRN SHORT OF BREATH/WHEEZING Allopurinol 100 mg 08/09/16 10:00 08/10/16 09:12 Zyloprim - PO 100 mg DAILY MAGEN Administration Atorvastatin Calcium 40 mg 08/08/16 22:00 08/09/16 21:35 Lipitor - PO 40 mg HS MAGEN Administration Carvedilol 6.25 mg 08/08/16 22:00 08/10/16 09:10 Coreg - PO 6.25 mg BID MAGEN Administration Chlorhexidine Gluconate 1 applic 08/08/16 22:00 08/09/16 21:36 Hibiclens For Decolonization - TP 1 applic HS MAGEN Administration Cholecalciferol 400 unit 08/09/16 10:00 08/10/16 09:11 Vitamin D3 - PO 400 unit DAILY MAGEN Administration Fluoxetine HCl 40 mg 08/08/16 22:00 08/09/16 22:21 Prozac - PO 40 mg HS MAGEN Administration Piperacillin Sod/Tazobactam Sod 50 mls @ 100 mls/hr 08/09/16 09:00 08/10/16 09: 12 Zosyn 2.25gm Ivpb (Pre-Docked) IVPB 100 mls/hr Q6H-IV MAGEN Administration Protocol Insulin Aspart 1 vial 08/10/16 09:10 Novolog Vial Sliding Scale - SQ ACHS [facility] Protocol Insulin Detemir 70 units 08/09/16 07:00 08/10/16 06:22 Levemir Vial SQ 70 units AM MAGEN Administration Lorazepam 0.5 mg 08/08/16 22:00 08/09/16 21:35 Ativan - PO 0.5 mg HS MAGEN Administration Mupirocin 1 applic 08/08/16 22:00 08/10/16 09:33 Bactroban Ointment (For Decolonization) - NS 08/13/16 21:59 1 applic BID MAGEN Administration Oxycodone HCl 5 mg 08/09/16 22:36 08/10/16 09:30 Roxicodone - PO 5 mg Q4H PRN Administration PAIN LEVEL 1-5 Ranitidine HCl 150 mg 08/09/16 07:00 08/10/16 06:23 Zantac - PO 150 mg AM MAGEN Administration Rivaroxaban 15 mg 08/09/16 10:00 08/10/16 09:11 Xarelto - PO 15 mg DAILY MAGEN Administration Senna/Docusate Sodium 2 tablet 08/08/16 22:00 08/09/16 21:36 Pericolace - PO 2 tablet HS MAGEN Administration Tamsulosin HCl 0.4 mg 08/09/16 10:00 08/10/16 09:11 Flomax - PO 0.4 mg DAILY MAGEN Administration Torsemide 200 mg 08/09/16 10:00 08/10/16 09:10 Demadex - PO 200 mg DAILY MAGEN Administration ASSESSMENT/PLAN: 61 yr old man with HTN, DM II- uncontrolled, CAD, CHF with reduced EF and increased RV systolic pressure(ischemic cardiomyopathy),hx of DC, 4 vessel CABG , cardiac arrest s/p ICD placement, home O2 2.5L continuous-dependent due to COPD, CVA, hepatitis B, gout, CKD and right LE DVT on Xarelto. Infectious Disease sepsis secondary to uti - abx de-escalated - cefazolin 1gm q8hr consulted Dr. Hernandez Cardiovascular acute on chronic CHF - improving daily weights demadax 200mg po daily responding well to diuresis cont home meds: aspirin 81mg po daily, atorvastatin 40mg po HS, coreg 6.25po daily consult Dr. Hawley Renal MARCIAL on CKD - Cr back to baseline -avoid nephrotoxic medications Endocrine DM II uncontrolled insulin sliding scale, bgm q4hr for close monitoring insulin 70 units HS sq - had hyperglycemia yesterday likely due to sepsis, requiring multiple pushes of novolog, improved sugar control today, will increase sliding scale coverage Pulmonary COPD- does not appear to be in exacerbation maintain saturatoin 88-92% duoneb q4h prn consult: Dr. Castillo(outpatient physician as well) Rheumatological Gout allopurinol 100mg po daily Hematological hx of DVT: - xarelto 15mg po daily Psych depression: -cont fluoxetine 40mg po daily Dermatological can f/u as outpatient for wound care with Dr. Quispe for LE ulcers, likely from venous stasis, keep clean and dry Diet: diabetic diet DVT; on xarelto Dispo: can be monitored in med-surg Visit type - Emergency Visit Emergency Visit: No - New Patient This patient is new to me today: No - Critical Care Critical Care patient: Yes Total Critical Care Time (in minutes): 35 Critical Care Statement: The care of this patient involved high complexity decision making to prevent further life threatening deterioration of the patient 's condition and/or to evalute & treat vital organ system(s) failure or risk of failure.
[2016-08-10] MEDS ORDERED: VANCOMYCIN 1,250 MG in DEXTROSE 5%-WATER - 250 ML IVPB SCH (10:00)
--- NOTE | 2016-08-10 10:07 | PN ---
Progress Note, Physician History of Present Illness: OOB in chair Feeling better temps down- afebrile No c/o fever/ chills No dysuria/ hematuria BC NLF - Current Medication List Current Medications: Active Medications Acetaminophen (Tylenol -) 325 mg PO Q4H PRN PRN Reason: PAIN LEVEL 1-5 Stop: 08/12/16 22:35 Last Admin: 08/10/16 09:32 Dose: 325 mg Albuterol/Ipratropium (Duoneb -) 1 amp NEB DAILY PRN PRN Reason: SHORT OF BREATH/WHEEZING Allopurinol (Zyloprim -) 100 mg PO DAILY [facility] Last Admin: 08/10/16 09:12 Dose: 100 mg Atorvastatin Calcium (Lipitor -) 40 mg PO HS [facility] Last Admin: 08/09/16 21:35 Dose: 40 mg Carvedilol (Coreg -) 6.25 mg PO BID [facility] Last Admin: 08/10/16 09:10 Dose: 6.25 mg Chlorhexidine Gluconate (Hibiclens For Decolonization -) 1 applic TP HS [facility] Last Admin: 08/09/16 21:36 Dose: 1 applic Cholecalciferol (Vitamin D3 -) 400 unit PO DAILY [facility] Last Admin: 08/10/16 09:11 Dose: 400 unit Fluoxetine HCl (Prozac -) 40 mg PO HS [facility] Last Admin: 08/09/16 22:21 Dose: 40 mg Piperacillin Sod/Tazobactam Sod (Zosyn 2.25gm Ivpb (Pre-Docked)) 50 mls @ 100 mls/hr IVPB Q6H-IV [facility] PRN Reason: Protocol Last Admin: 08/10/16 09:12 Dose: 100 mls/hr Insulin Aspart (Novolog Vial Sliding Scale -) 1 vial SQ ACHS [facility] PRN Reason: Protocol Insulin Detemir (Levemir Vial) 70 units SQ AM [facility] Last Admin: 08/10/16 06:22 Dose: 70 units Lorazepam (Ativan -) 0.5 mg PO HS [facility] Last Admin: 08/09/16 21:35 Dose: 0.5 mg Mupirocin (Bactroban Ointment (For Decolonization) -) 1 applic NS BID [facility] Stop: 08/13/16 21:59 Last Admin: 08/10/16 09:33 Dose: 1 applic Oxycodone HCl (Roxicodone -) 5 mg PO Q4H PRN PRN Reason: PAIN LEVEL 1-5 Last Admin: 08/10/16 09:30 Dose: 5 mg Ranitidine HCl (Zantac -) 150 mg PO AM [facility] Last Admin: 08/10/16 06:23 Dose: 150 mg Rivaroxaban (Xarelto -) 15 mg PO DAILY [facility] Last Admin: 08/10/16 09:11 Dose: 15 mg Senna/Docusate Sodium (Pericolace -) 2 tablet PO HS [facility] Last Admin: 08/09/16 21:36 Dose: 2 tablet Tamsulosin HCl (Flomax -) 0.4 mg PO DAILY [facility] Last Admin: 08/10/16 09:11 Dose: 0.4 mg Torsemide (Demadex -) 200 mg PO DAILY [facility] Last Admin: 08/10/16 09:10 Dose: 200 mg - Objective Vital Signs: Vital Signs Temperature 97.7 F 08/10/16 06:00 Pulse Rate 76 08/10/16 08:00 Respiratory Rate 12 08/10/16 08:00 Blood Pressure 104/65 08/10/16 08:00 O2 Sat by Pulse Oximetry (%) 99 08/09/16 20:45 Constitutional: Yes: No Distress, Obese Eyes: Yes: Conjunctiva Clear Cardiovascular: Yes: Regular Rate and Rhythm, S1, S2 Respiratory: Yes: CTA Bilaterally Gastrointestinal: Yes: Normal Bowel Sounds, Soft, Abdomen, Obese. No: Tenderness Extremities: Yes: Other Integumentary: Yes: Other (L UE incisional wound no drainage) Labs: CBC, BMP 08/10/16 05:50 08/10/16 05:50 INR, PTT INR 1.62 (0.82-1.09) H 08/08/16 21:35 Assessment/Plan Gram Negative bacteremia/ Sepsis UTI/ Sepsis secondary to UTI Fever- resolved azotemia- improved Await BC result Continue empiric zosyn Hold further vancomycin
--- NOTE | 2016-08-10 11:19 | EKG ---
Test Reason : Blood Pressure : / mmHG Vent. Rate : 128 BPM Atrial Rate : 113 BPM P-R Int : 170 ms QRS Dur : 166 ms QT Int : 356 ms P-R-T Axes : 064 161 049 degrees QTc Int : 519 ms POOR DATA QUALITY, INTERPRETATION MAY BE ADVERSELY AFFECTED UNDETERMINED RHYTHM RIGHT BUNDLE BRANCH BLOCK ANTEROSEPTAL INFARCT (CITED ON OR BEFORE 07-DEC-2015) ABNORMAL ECG WHEN COMPARED WITH ECG OF 24-JUN-2016 07:21, CURRENT UNDETERMINED RHYTHM PRECLUDES RHYTHM COMPARISON, NEEDS REVIEW Confirmed by SHABBIR KHAN MD ([id number]) on 08/10/2016 11:18:45 AM Referred By: Confirmed By:SHABBIR KHAN MD
--- NOTE | 2016-08-10 11:55 | PN ---
Teaching Attending Note Name of Resident: Jemima Yoder ATTENDING PHYSICIAN STATEMENT I saw and evaluated the patient. I reviewed the resident's note and discussed the case with the resident. I agree with the resident's findings and plan as documented. SUBJECTIVE: Pt seen and examined in the ICU. Feels improved. Blood cultures growing pansensitive E coli. No fevers or chills. Abdominal pain improved. OBJECTIVE: Last Vital Signs Temp Pulse Resp BP Pulse Ox 97.3 F L 74 20 98/64 99 08/10/16 10:00 08/10/16 10:00 08/10/16 10:00 08/10/16 10:00 08/09/16 20:45 Intake & Output 08/07/16 08/08/16 08/09/16 08/10/16 23:59 23:59 23:59 23:59 Intake Total 500 640 170 Output Total 5400 Balance 500 -4760 170 Weight 249 lb 1 oz 249 lb 1 oz 242 lb 3.2 oz Gen: NAD in chair Heart: RRR Lung: left base rales Abd: soft, nontender Ext: chronic changes CBC, BMP 08/10/16 05:50 08/10/16 05:50 Active Medications Acetaminophen (Tylenol -) 325 mg PO Q4H PRN PRN Reason: PAIN LEVEL 1-5 Stop: 08/12/16 22:35 Last Admin: 08/10/16 09:32 Dose: 325 mg Albuterol/Ipratropium (Duoneb -) 1 amp NEB DAILY PRN PRN Reason: SHORT OF BREATH/WHEEZING Allopurinol (Zyloprim -) 100 mg PO DAILY [facility] Last Admin: 08/10/16 09:12 Dose: 100 mg Atorvastatin Calcium (Lipitor -) 40 mg PO [facility] Last Admin: 08/09/16 21:35 Dose: 40 mg Carvedilol (Coreg -) 6.25 mg PO BID [facility] Last Admin: 08/10/16 09:10 Dose: 6.25 mg Chlorhexidine Gluconate (Hibiclens For Decolonization -) 1 applic TP [facility] Last Admin: 08/09/16 21:36 Dose: 1 applic Cholecalciferol (Vitamin D3 -) 400 unit PO DAILY [facility] Last Admin: 08/10/16 09:11 Dose: 400 unit Fluoxetine HCl (Prozac -) 40 mg PO [facility] Last Admin: 08/09/16 22:21 Dose: 40 mg Insulin Aspart (Novolog Vial Sliding Scale -) 1 vial SQ ACHS [facility] PRN Reason: Protocol Last Admin: 08/10/16 11:43 Dose: 9 units Insulin Detemir (Levemir Vial) 70 units SQ AM [facility] Last Admin: 08/10/16 06:22 Dose: 70 units Lorazepam (Ativan -) 0.5 mg PO HS [facility] Last Admin: 08/09/16 21:35 Dose: 0.5 mg Mupirocin (Bactroban Ointment (For Decolonization) -) 1 applic NS BID [facility] Stop: 08/13/16 21:59 Last Admin: 08/10/16 09:33 Dose: 1 applic Oxycodone HCl (Roxicodone -) 5 mg PO Q4H PRN PRN Reason: PAIN LEVEL 1-5 Last Admin: 08/10/16 09:30 Dose: 5 mg Ranitidine HCl (Zantac -) 150 mg PO AM [facility] Last Admin: 08/10/16 06:23 Dose: 150 mg Rivaroxaban (Xarelto -) 15 mg PO DAILY [facility] Last Admin: 08/10/16 09:11 Dose: 15 mg Senna/Docusate Sodium (Pericolace -) 2 tablet PO HS [facility] Last Admin: 08/09/16 21:36 Dose: 2 tablet Tamsulosin HCl (Flomax -) 0.4 mg PO DAILY [facility] Last Admin: 08/10/16 09:11 Dose: 0.4 mg Torsemide (Demadex -) 200 mg PO DAILY [facility] Last Admin: 08/10/16 09:10 Dose: 200 mg ASSESSMENT AND PLAN: UTI Sepsis LV Systolic Dysfunction Pulmonary HTN CAD s/p CABG Atrial Fibrillation COPD Chronic Hypoxic Respiratory Failure Acute on CKD - continue antibiotics - rate controlled - continue anticoagulation - continue demadex - monitor urine output, creatinine - PO as tolerated - can monitor on floor
--- NOTE | 2016-08-10 11:58 | PN ---
Progress Note, Physician History of Present Illness: Resting comfortably in chair, not dyspneic, afebrile. - Current Medication List Current Medications: Active Medications Acetaminophen (Tylenol -) 325 mg PO Q4H PRN PRN Reason: PAIN LEVEL 1-5 Stop: 08/12/16 22:35 Last Admin: 08/10/16 09:32 Dose: 325 mg Albuterol/Ipratropium (Duoneb -) 1 amp NEB DAILY PRN PRN Reason: SHORT OF BREATH/WHEEZING Allopurinol (Zyloprim -) 100 mg PO DAILY [facility] Last Admin: 08/10/16 09:12 Dose: 100 mg Atorvastatin Calcium (Lipitor -) 40 mg PO HS [facility] Last Admin: 08/09/16 21:35 Dose: 40 mg Carvedilol (Coreg -) 6.25 mg PO BID [facility] Last Admin: 08/10/16 09:10 Dose: 6.25 mg Chlorhexidine Gluconate (Hibiclens For Decolonization -) 1 applic TP HS [facility] Last Admin: 08/09/16 21:36 Dose: 1 applic Cholecalciferol (Vitamin D3 -) 400 unit PO DAILY [facility] Last Admin: 08/10/16 09:11 Dose: 400 unit Fluoxetine HCl (Prozac -) 40 mg PO HS [facility] Last Admin: 08/09/16 22:21 Dose: 40 mg Insulin Aspart (Novolog Vial Sliding Scale -) 1 vial SQ ACHS [facility] PRN Reason: Protocol Last Admin: 08/10/16 11:43 Dose: 9 units Insulin Detemir (Levemir Vial) 70 units SQ AM [facility] Last Admin: 08/10/16 06:22 Dose: 70 units Lorazepam (Ativan -) 0.5 mg PO HS [facility] Last Admin: 08/09/16 21:35 Dose: 0.5 mg Mupirocin (Bactroban Ointment (For Decolonization) -) 1 applic NS BID [facility] Stop: 08/13/16 21:59 Last Admin: 08/10/16 09:33 Dose: 1 applic Oxycodone HCl (Roxicodone -) 5 mg PO Q4H PRN PRN Reason: PAIN LEVEL 1-5 Last Admin: 08/10/16 09:30 Dose: 5 mg Ranitidine HCl (Zantac -) 150 mg PO AM [facility] Last Admin: 08/10/16 06:23 Dose: 150 mg Rivaroxaban (Xarelto -) 15 mg PO DAILY [facility] Last Admin: 08/10/16 09:11 Dose: 15 mg Senna/Docusate Sodium (Pericolace -) 2 tablet PO [facility] Last Admin: 08/09/16 21:36 Dose: 2 tablet Tamsulosin HCl (Flomax -) 0.4 mg PO DAILY [facility] Last Admin: 08/10/16 09:11 Dose: 0.4 mg Torsemide (Demadex -) 200 mg PO DAILY [facility] Last Admin: 08/10/16 09:10 Dose: 200 mg - Objective Vital Signs: Vital Signs Temperature 97.3 F L 08/10/16 10:00 Pulse Rate 74 08/10/16 10:00 Respiratory Rate 20 08/10/16 10:00 Blood Pressure 98/64 08/10/16 10:00 O2 Sat by Pulse Oximetry (%) 96 08/10/16 09:00 Constitutional: Yes: No Distress, Calm Neck: Yes: Supple Cardiovascular: Yes: Pulse Irregular Respiratory: Yes: Regular, Diminished, On Nasal O2 Gastrointestinal: Yes: Normal Bowel Sounds, Soft, Abdomen, Obese Edema: Yes Edema: LLE: Trace, RLE: Trace Labs: CBC, BMP 08/10/16 05:50 08/10/16 05:50 INR, PTT INR 1.62 (0.82-1.09) H 08/08/16 21:35 Problem List - Problems (1) Diabetes mellitus Code(s): E11.9 - TYPE 2 DIABETES MELLITUS WITHOUT COMPLICATIONS Qualifiers: Diabetes mellitus type: type 2 Diabetes mellitus complication status: with kidney complications Diabetes mellitus complication detail: with chronic kidney disease 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 Chronic kidney disease stage: stage 4 (severe) Qualified Code(s): E11.22 - Type 2 diabetes mellitus with diabetic chronic kidney disease ; N18.1 - Chronic kidney disease, stage 1; Z79.4 - FDC (current) use of insulin (2) Sepsis Code(s): A41.9 - SEPSIS, UNSPECIFIED ORGANISM Qualifiers: Sepsis type: sepsis due to unspecified organism Qualified Code(s): A41.9 - Sepsis, unspecified organism (3) UTI (urinary tract infection) Code(s): N39.0 - URINARY TRACT INFECTION, SITE NOT SPECIFIED Qualifiers: Urinary tract infection type: site unspecified Hematuria presence: without hematuria Qualified Code(s): N39.0 - Urinary tract infection, site not specified (4) Acute on chronic systolic and diastolic heart failure, NYHA class 4 Code(s): I50.43 - ACUTE ON CHRONIC COMBINED SYSTOLIC AND DIASTOLIC HRT FAIL (5) COPD (chronic obstructive pulmonary disease) Code(s): J44.9 - CHRONIC OBSTRUCTIVE PULMONARY DISEASE, UNSPECIFIED Qualifiers : COPD type: chronic bronchitis (6) DVT prophylaxis Code(s): HKQ3804 - (7) Hx of CABG Code(s): Z95.1 - PRESENCE OF AORTOCORONARY BYPASS GRAFT (8) Ischemic cardiomyopathy Code(s): I25.5 - ISCHEMIC CARDIOMYOPATHY (9) Morbid obesity Code(s): E66.01 - MORBID (SEVERE) OBESITY DUE TO EXCESS CALORIES Qualifiers: Obesity type: due to excess calories Qualified Code(s): E66.01 - Morbid (severe) obesity due to excess calories (10) Poor compliance Code(s): Z91.19 - PATIENT'S NONCOMPLIANCE W OTH MEDICAL TREATMENT AND REGIMEN (11) S/P CABG (coronary artery bypass graft) Code(s): Z95.1 - PRESENCE OF AORTOCORONARY BYPASS GRAFT (12) Severe left ventricular systolic dysfunction Code(s): I51.9 - HEART DISEASE, UNSPECIFIED (13) Single implantable cardioverter-defibrillator (ICD) in situ Code(s): Z95.810 - PRESENCE OF AUTOMATIC (IMPLANTABLE) CARDIAC DEFIBRILLATOR (14) Tobacco abuse Code(s): Z72.0 - TOBACCO USE (15) ASHD (arteriosclerotic heart disease) Code(s): I25.10 - ATHSCL HEART DISEASE OF [place] CORONARY ARTERY W/O ANG PCTRS (16) Diabetes mellitus, insulin dependent (IDDM), uncontrolled Code(s): E10.65 - TYPE 1 DIABETES MELLITUS WITH HYPERGLYCEMIA Qualifiers: Diabetes mellitus complication detail: with polyneuropathy (17) Obstructive sleep apnea of adult Code(s): G47.33 - OBSTRUCTIVE SLEEP APNEA (ADULT) (PEDIATRIC) Assessment/Plan 1. Chronic LV systolic failure with NYHA classification 3-4 heart failure with ischemic cardiomyopathy with pulm HTN 2. Urosepsis gram negative bacillus bacteremia, h/o MRSA 3. CAD S/P CABG, angina pectoris 4. History of cardiac arrest S/P ICD 5. Chronic hypoxic respiratory failure with home O2 dependent COPD and pulmonary nodules 6. Type 2 diabetes mellitus 7. CVA 8. Acute on CKD improving 9. Morbid obesity 10. History of RLE DVT 11. Persistent atrial fibrillation on NOAC 12. OSAS noncompliant with cpap PLAN: 1. Continue Demadex 200 qd with monitor diuretic response, renal fxn and electrolytes 2. Continue abx course per C&S 3. Continue Carvedilol 6.25 bid, Atorvastatin 40 qhs and Xarelto 15 qPM (renal dosing) 4. Resume ACEI/ARB once renal fxn stabilizes 5. GI prophylaxis, cpap nightly
[2016-08-10] MEDS ORDERED: CEFAZOLIN 1 GM/D5W 50 ML IVPB SCH (12:15)
--- NOTE | 2016-08-10 12:16 | PN ---
Teaching Attending Note Name of Resident: Melinda Carrillo ATTENDING PHYSICIAN STATEMENT I saw and evaluated the patient. I reviewed the resident's note and discussed the case with the resident. I agree with the resident's findings and plan as documented. SUBJECTIVE: has pain in L shoulder, has no chills, has no AB dpain , no diarrhea . OBJECTIVE: NAD, AAOx3 CV: RRR, no MRG Abd : soft, obese , NT, ND . Lungs : CTAB Ext : trace edema and erythema on LE , scattered superficial ulcers on legs. L arm with small wound ( 2 cm ) , with minimal NO purulent drainage weakness in L shoulder due to pain ASSESSMENT AND PLAN: 61 y/o man with h/o ICM , CKD , S CHF , CABG, s/p cardiac arrest , R LE DVT , and DM who presented with SOB and not feeling well and was found to have sepsis 2/2 UTI and bacteremia 1- Sepsis 2/2 UTI and bacteremia : blood cx with E coli. Urine cx is still pending Abx per sensitivity . d/w Dr. Love, no need for vanco . follow repeat blood cx 2- Poorly controlled Dm , due to sepsis and non compliant with home insulin - increase dose of SSI - add HS coverage of SSI - Cont Levemirt 70 units in am 3- Acute S CHF : now volume status has much improved - cont demadex at home dose . - cont coreg - Off ASA while on xarelto 4- h/o DVT : cont xarelto. will check with PCP and/or Dr. rodríguez regarding AC 5- CKD : base line Cr 1.7-2 . monitor 7- Tx out of ICU Microbiology 08/08/16 16:40 Blood Culture - Preliminary Blood - Peripheral Venous Escherichia Coli 08/08/16 16:40 Blood Culture - Preliminary Blood - Peripheral Venous Pending Organism
--- NOTE | 2016-08-10 16:29 | PN ---
Physical Exam: SUBJECTIVE: Patient seen and examined at bed side this morning. No complaints this morning. Denies chest pain, sob, cough, palpitation, abdominal pain, nausea or vomiting. Bowel/Bladder habit normal. Sleep/Appetite normal OBJECTIVE: Vital Signs Period Temp Pulse Resp BP Sys/Mcconnell Pulse Ox Last 24 Hr 97.3 F-97.8 F 71-81 12-23 92-113/57-77 96-99 GENERAL: Obese male, sitting comfortably in bed, awake, alert, and fully oriented, in no acute distress. HEAD: Normal with no signs of trauma. EYES: EOM intact, no pallor or icterus. ENT: Ears normal,moist mucous membranes. NECK: Trachea midline, full range of motion, supple, No JVD. LUNGS: B/L Breath sounds decreased, clear to auscultation bilaterally, no wheezes, no crackles, no accessory muscle use. HEART: Regular rate and rhythm, S1, S2 soft systolic murmur. ABDOMEN: Soft, tenderness on palpation over the left lower quadrant, nondistended, normoactive bowel sounds, no guarding, no rebound, no hepatosplenomegaly, no masses. UPPER EXTREMITIES: 2+ pulses, warm, well-perfused. Left forearm: around 1.5 cm x 1 cm incision on the left forearm with minimal serosanguinous drainage, area looks clean, no abscess noted. LOWER EXTREMITIES: 2+ pulses, warm, well-perfused, B/L pitting edema up to mid calf. B/L LE erythema, B/L blisters, superfical ulcers, no serosanguinous fluids, multiple scabbed wounds on the LE. NEUROLOGICAL: No facial droop, bulk/tone normal, power-5/5 in all extremities except in the lower extremities which are 4/5 Cranial nerves II through XII grossly intact. Normal speech, gait not observed. PSYCH: Normal mood, normal affect. SKIN: Warm, dry, normal turgor, no rashes or lesions noted Laboratory Results - last 24 hr 08/09/16 08/09/16 08/09/16 16:30 18:07 19:39 WBC RBC Hgb Hct MCV MCHC RDW Plt Count MPV Sodium Potassium Chloride Carbon Dioxide Anion Gap BUN Creatinine POC Glucometer > 400 365.02385 [phone] Random Glucose Calcium Vancomycin Pre-Dose 08/09/16 08/10/16 08/10/16 22:01 05:36 05:50 WBC 12.2 H RBC 3.42 L Hgb 10.5 L Hct 31.7 L MCV 92.8 MCHC 33.2 RDW 17.7 H Plt Count 166 MPV 8.8 Sodium Potassium Chloride Carbon Dioxide Anion Gap BUN Creatinine POC Glucometer 383.63484 344.47144 Random Glucose Calcium Vancomycin Pre-Dose 08/10/16 08/10/16 08/10/16 05:50 08:10 11:37 WBC RBC Hgb Hct MCV MCHC RDW Plt Count MPV Sodium 139 Potassium 3.5 Chloride 100 Carbon Dioxide 32 Anion Gap 7 L BUN 45 H Creatinine 1.7 H POC Glucometer 304.56019 Random Glucose 293 H D Calcium 8.0 L Vancomycin Pre-Dose 2.555 L* Active Medications Generic Name Dose Route Start Last Admin Trade Name Freq PRN Reason Stop Dose Admin Acetaminophen 325 mg 08/09/16 22:36 08/10/16 09:32 Tylenol - PO 08/12/16 22:35 325 mg Q4H PRN Administration PAIN LEVEL 1-5 Albuterol/Ipratropium 1 amp 08/08/16 20:49 Duoneb - NEB DAILY PRN SHORT OF BREATH/WHEEZING Allopurinol 100 mg 08/09/16 10:00 08/10/16 09:12 Zyloprim - PO 100 mg DAILY [facility] Administration Atorvastatin Calcium 40 mg 08/08/16 22:00 08/09/16 21:35 Lipitor - PO 40 mg HS [facility] Administration Carvedilol 6.25 mg 08/08/16 22:00 08/10/16 09:10 Coreg - PO 6.25 mg BID [facility] Administration Chlorhexidine Gluconate 1 applic 08/08/16 22:00 08/09/16 21:36 Hibiclens For Decolonization - TP 1 applic HS [facility] Administration Cholecalciferol 400 unit 08/09/16 10:00 08/10/16 09:11 Vitamin D3 - PO 400 unit DAILY [facility] Administration Fluoxetine HCl 40 mg 08/08/16 22:00 08/09/16 22:21 Prozac - PO 40 mg HS [facility] Administration Cefazolin Sodium 50 mls @ 100 mls/hr 08/10/16 12:54 Ancef 1gm Ivpb (Pre-Docked) IVPB Q8H-IV [facility] Insulin Aspart 1 vial 08/10/16 09:10 08/10/16 11:43 Novolog Vial Sliding Scale - SQ 9 units ACHS [facility] Administration Protocol Insulin Detemir 70 units 08/09/16 07:00 08/10/16 06:22 Levemir Vial SQ 70 units AM [facility] Administration Lorazepam 0.5 mg 08/08/16 22:00 08/09/16 21:35 Ativan - PO 0.5 mg HS [facility] Administration Mupirocin 1 applic 08/08/16 22:00 08/10/16 09:33 Bactroban Ointment (For Decolonization) - NS 08/13/16 21:59 1 applic BID [facility] Administration Oxycodone HCl 5 mg 08/09/16 22:36 08/10/16 09:30 Roxicodone - PO 5 mg Q4H PRN Administration PAIN LEVEL 1-5 Ranitidine HCl 150 mg 08/09/16 07:00 08/10/16 06:23 Zantac - PO 150 mg AM [facility] Administration Rivaroxaban 15 mg 08/09/16 10:00 08/10/16 09:11 Xarelto - PO 15 mg DAILY [facility] Administration Senna/Docusate Sodium 2 tablet 08/08/16 22:00 08/09/16 21:36 Pericolace - PO 2 tablet HS [facility] Administration Tamsulosin HCl 0.4 mg 08/09/16 10:00 08/10/16 09:11 Flomax - PO 0.4 mg DAILY [facility] Administration Torsemide 200 mg 08/09/16 10:00 08/10/16 09:10 Demadex - PO 200 mg DAILY [facility] Administration ASSESSMENT/PLAN: Patient is a 61 year old male with past medical history of ischemic cardiomyopathy, congestive heart failure class III-IV, s/p CABG, ICD, IDDM, COPD , diabetic leg ulcers; presented to the emergency room with fever, chills, sob, admitted for sepsis and acute CHF exacerbation. # Sepsis most likely secondary to UTI and Gram negative bacteremia Has urinary symptoms like dysuria, increased frequency UA: 1 +blood, 3+LE, WBC 1107, f/up urine cultures Blood cultures-gram negative bacilli, E.coli IV Zosyn 2.25gm IV Q6H started Vancomycin was given for previous abscess in the forearm s/p I and D ( Had MRSA) ID consult appreciated # Acute kidney injury on chronic kidney injury stage 3B Calculated fena is 0.4 % but probably not accurate since he was on Lasix Baseline creatinine is around 1.7-2 Avoid nephrotoxic agents # Acute on chronic systolic heart failure class III-IV Continue home medication Torsemide 200mg Daily Daily weights, strict I's and O's Continue Aspirin 81mg PO daily, Atorvastatin 40mg PO HS, Coreg 6.25 po daily (Not in pharmacy) Cardiology consult requested # Uncontrolled Diabetes Mellitus HbA1c 10.5 this admission Continue Insulin 70U sq daily Insulin sliding scale BGM Q4H Patient said he hasn't been taking insulin sliding scale since few days since his pen broke, also takes Victoza at home. # COPD on home oxygen-Not in exacerbation Oxygen PRN (Maintain saturation .88%- 92%) Duoneb Q4H prn # H/O DVT of lower ext;Chronic venous stasis with b/l LE superficial ulcers DVT of LE ruled out Traced previous Vascular study, didn't find any evidence of DVT in the past, confirmed patient had DVT in one of the leg and is on Xarelto since 3 months . COntinue Xarelto 20mg PO # Gout-No flare Continue allopurinol 100mg PO daily, will keep it daily considering his kidney function. At home he is on 100mg BID # Depression Continue fluoxetine 40mg po daily Doesn't take Lorazepam 0.5mg at home, will bring all medications tomorrow and will d/c after confirming it. # FEN: Not on IV fluids. Restrict 1.5 L/day Electrolytes to be repeated tomorrow Diabetic diet # Prophylaxis For DVT: Already on Xarelto For GI: Not indicated Called pharmacy to confirm the medications. Few medications are not in the pharmacy: Lorazepam, Victoza, colchicine hasnt been picked up since April, # Disposition: Admitted in the ICU but now stable to be transferred in Tele with continuous cardiac monitoring. Duration of stay unknown. Case seen and discussed with Dr. Olguin. Visit type - Emergency Visit Emergency Visit: Yes ED Registration Date: 08/08/16 Care time: The patient presented to the Emergency Department on the above date and was hospitalized for further evaluation of their emergent condition. - New Patient This patient is new to me today: No - Critical Care Critical Care patient: No - Discharge Referral Referred to [facility] No
[2016-08-10] MEDS: CEFAZOLIN (PRE-DOCKED) 50 ML IVPB SCH (17:56)
--- NOTE | 2016-08-10 18:04 | PN ---
Progress Note, Physician History of Present Illness: Resting comfortably in bed, not dyspneic, afebrile. - Current Medication List Current Medications: Active Medications Acetaminophen (Tylenol -) 325 mg PO Q4H PRN PRN Reason: PAIN LEVEL 1-5 Stop: 08/12/16 22:35 Last Admin: 08/10/16 09:32 Dose: 325 mg Albuterol/Ipratropium (Duoneb -) 1 amp NEB DAILY PRN PRN Reason: SHORT OF BREATH/WHEEZING Allopurinol (Zyloprim -) 100 mg PO DAILY [facility] Last Admin: 08/10/16 09:12 Dose: 100 mg Atorvastatin Calcium (Lipitor -) 40 mg PO HS [facility] Last Admin: 08/09/16 21:35 Dose: 40 mg Carvedilol (Coreg -) 6.25 mg PO BID [facility] Last Admin: 08/10/16 09:10 Dose: 6.25 mg Chlorhexidine Gluconate (Hibiclens For Decolonization -) 1 applic TP HS [facility] Last Admin: 08/09/16 21:36 Dose: 1 applic Cholecalciferol (Vitamin D3 -) 400 unit PO DAILY [facility] Last Admin: 08/10/16 09:11 Dose: 400 unit Fluoxetine HCl (Prozac -) 40 mg PO HS [facility] Last Admin: 08/09/16 22:21 Dose: 40 mg Cefazolin Sodium (Ancef 1gm Ivpb (Pre-Docked)) 50 mls @ 100 mls/hr IVPB Q8H-IV [facility] Insulin Aspart (Novolog Vial Sliding Scale -) 1 vial SQ ACHS [facility] PRN Reason: Protocol Last Admin: 08/10/16 11:43 Dose: 9 units Insulin Detemir (Levemir Vial) 70 units SQ AM [facility] Last Admin: 08/10/16 06:22 Dose: 70 units Lorazepam (Ativan -) 0.5 mg PO HS [facility] Last Admin: 08/09/16 21:35 Dose: 0.5 mg Mupirocin (Bactroban Ointment (For Decolonization) -) 1 applic NS BID [facility] Stop: 08/13/16 21:59 Last Admin: 08/10/16 09:33 Dose: 1 applic Oxycodone HCl (Roxicodone -) 5 mg PO Q4H PRN PRN Reason: PAIN LEVEL 1-5 Last Admin: 08/10/16 09:30 Dose: 5 mg Ranitidine HCl (Zantac -) 150 mg PO AM [facility] Last Admin: 08/10/16 06:23 Dose: 150 mg Rivaroxaban (Xarelto -) 20 mg PO DAILY [facility] Senna/Docusate Sodium (Pericolace -) 2 tablet PO HS [facility] Last Admin: 08/09/16 21:36 Dose: 2 tablet Tamsulosin HCl (Flomax -) 0.4 mg PO DAILY [facility] Last Admin: 08/10/16 09:11 Dose: 0.4 mg Torsemide (Demadex -) 200 mg PO DAILY [facility] Last Admin: 08/10/16 09:10 Dose: 200 mg - Objective Vital Signs: Vital Signs Temperature 97.5 F L 08/10/16 14:00 Pulse Rate 74 08/10/16 14:00 Respiratory Rate 20 08/10/16 12:00 Blood Pressure 100/59 08/10/16 14:00 O2 Sat by Pulse Oximetry (%) 96 08/10/16 09:00 Constitutional: Yes: No Distress, Calm Neck: Yes: Supple Cardiovascular: Yes: Regular Rate and Rhythm Respiratory: Yes: Regular, Diminished, On Nasal O2 Gastrointestinal: Yes: Normal Bowel Sounds, Soft, Abdomen, Obese Edema: No Labs: CBC, BMP 08/10/16 05:50 08/10/16 05:50 INR, PTT INR 1.62 (0.82-1.09) H 08/08/16 21:35 Problem List - Problems (1) Diabetes mellitus Code(s): E11.9 - TYPE 2 DIABETES MELLITUS WITHOUT COMPLICATIONS Qualifiers: Diabetes mellitus type: type 2 Diabetes mellitus complication status: with kidney complications Diabetes mellitus complication detail: with chronic kidney disease Diabetes mellitus termite helper insulin use: with shelter use Chronic kidney disease stage: stage 4 (severe) Qualified Code(s): E11.22 - Type 2 diabetes mellitus with diabetic chronic kidney disease ; N18.1 - Chronic kidney disease, stage 1; Z79.4 - snf (current) use of insulin (2) Sepsis Code(s): A41.9 - SEPSIS, UNSPECIFIED ORGANISM Qualifiers: Sepsis type: sepsis due to unspecified organism Qualified Code(s): A41.9 - Sepsis, unspecified organism (3) UTI (urinary tract infection) Code(s): N39.0 - URINARY TRACT INFECTION, SITE NOT SPECIFIED Qualifiers: Urinary tract infection type: site unspecified Hematuria presence: without hematuria Qualified Code(s): N39.0 - Urinary tract infection, site not specified (4) Acute on chronic systolic and diastolic heart failure, NYHA class 4 Code(s): I50.43 - ACUTE ON CHRONIC COMBINED SYSTOLIC AND DIASTOLIC HRT FAIL (5) COPD (chronic obstructive pulmonary disease) Code(s): J44.9 - CHRONIC OBSTRUCTIVE PULMONARY DISEASE, UNSPECIFIED Qualifiers : COPD type: chronic bronchitis (6) DVT prophylaxis Code(s): [id number] - (7) Hx of CABG Code(s): Z95.1 - PRESENCE OF AORTOCORONARY BYPASS GRAFT (8) Ischemic cardiomyopathy Code(s): I25.5 - ISCHEMIC CARDIOMYOPATHY (9) Morbid obesity Code(s): E66.01 - MORBID (SEVERE) OBESITY DUE TO EXCESS CALORIES Qualifiers: Obesity type: due to excess calories Qualified Code(s): E66.01 - Morbid (severe) obesity due to excess calories (10) Poor compliance Code(s): Z91.19 - PATIENT'S NONCOMPLIANCE W OTH MEDICAL TREATMENT AND REGIMEN (11) S/P CABG (coronary artery bypass graft) Code(s): Z95.1 - PRESENCE OF AORTOCORONARY BYPASS GRAFT (12) Severe left ventricular systolic dysfunction Code(s): I51.9 - HEART DISEASE, UNSPECIFIED (13) Single implantable cardioverter-defibrillator (ICD) in situ Code(s): Z95.810 - PRESENCE OF AUTOMATIC (IMPLANTABLE) CARDIAC DEFIBRILLATOR (14) Tobacco abuse Code(s): Z72.0 - TOBACCO USE (15) ASHD (arteriosclerotic heart disease) Code(s): I25.10 - ATHSCL HEART DISEASE OF [place] CORONARY ARTERY W/O ANG PCTRS (16) Diabetes mellitus, insulin dependent (IDDM), uncontrolled Code(s): E10.65 - TYPE 1 DIABETES MELLITUS WITH HYPERGLYCEMIA Qualifiers: Diabetes mellitus complication detail: with polyneuropathy (17) Obstructive sleep apnea of adult Code(s): G47.33 - OBSTRUCTIVE SLEEP APNEA (ADULT) (PEDIATRIC) Assessment/Plan 1. Chronic LV systolic failure with NYHA classification 3-4 heart failure with ischemic cardiomyopathy with pulm HTN 2. Urosepsis with aleman-sensitive E. coli bacteremia, h/o MRSA 3. CAD S/P CABG, angina pectoris 4. History of cardiac arrest S/P ICD 5. Chronic hypoxic respiratory failure with home O2 dependent COPD and pulmonary nodules 6. Type 2 diabetes mellitus 7. CVA 8. Acute on CKD improving 9. Morbid obesity 10. History of RLE DVT 11. Persistent atrial fibrillation on NOAC 12. OSAS noncompliant with cpap PLAN: 1. Continue Demadex 200 qd with monitor diuretic response, renal fxn and electrolytes 2. Narrowed abx spectrum course per C&S 3. Continue Carvedilol 6.25 bid, Atorvastatin 40 qhs and Xarelto 20 qPM 4. Resume ACEI/ARB once renal fxn stabilizes 5. GI prophylaxis, cpap nightly A
[2016-08-10] MEDS: SENNOSIDES/DOCUSATE COMBO (SENNA PLUS) TABLET (UD) PO SCH (21:31)
[2016-08-10] MEDS: ATORVASTATIN CA 40 MG TABLET (FP) PO SCH (21:31)
[2016-08-10] MEDS: FLUoxetine HCL 20 MG CAPSULE (FP) PO SCH (21:32)
[2016-08-10] MEDS: CHLORHEXIDINE GLUCONATE 4% CLEANSER FOR DECOLONIZATION TP SCH (21:33)
[2016-08-10] MEDS: LORazepam 0.5 MG TABLET PO SCH (21:38)
[2016-08-10] MEDS ORDERED: ALBUTEROL SO4 2.5/IPRATROPIUM 0.5 INH SOL 3 ML VIAL.NEB. NEB PRN (23:52)
[2016-08-11] MEDS: CEFAZOLIN (PRE-DOCKED) 50 ML IVPB SCH ×3 (01:01→17:22)
[2016-08-11] MEDS ORDERED: LORazepam 0.5 MG TABLET PO ONE (02:04)
[2016-08-11 06:33] LABS: MCHC 34.1 g/dl (32.0-35.9); MEAN CELL VOLUME 91.1 fl (80-96); MEAN PLT VOLUME 8.5 fl (7.5-11.1); PLATELET COUNT 145 K/MM3 (134-434); RDW 17.4 % (11.9-15.9); WHITE BLOOD COUNT 8.9 K/mm3 (4.0-10.0)
[2016-08-11] MEDS: RANITIDINE HCL 150 MG TABLET (FP) PO SCH (06:43)
[2016-08-11] MEDS: INSULIN SLIDING SCALE (NOVOLOG) 1 VIAL SQ SCH ×4 (06:52→17:56)
[2016-08-11] MEDS ORDERED: INSULIN DETEMIR 100 UNITS/ML MDV SQ SCH (07:00)
[2016-08-11 07:01] LABS: ALBUMIN 2.2 g/dl (3.4-5.0); ANION GAP 8 (8-16); CALCIUM 8.1 mg/dL (8.5-10.1); CO2 32 mmol/L (21-32); CREATININE 1.5 mg/dL (0.7-1.3); GLUCOSE,RANDOM 83 mg/dL (74-106); MAGNESIUM 1.6 mg/dL (1.8-2.4); PHOSPHOROUS 2.8 mg/dL (2.5-4.9); SGOT/AST 59 U/L (15-37); SGPT/ALT 58 U/L (12-78); TOT PROT 5.7 g/dl (6.4-8.2)
[2016-08-11 07:02] LABS: ALK PHOS 350 U/L (45-117)
[2016-08-11] MEDS ORDERED: MAGNESIUM SULF 50% (8.12 MEQ/2 ML-1 GM VIAL) IVPB ONE (07:25)
[2016-08-11] MEDS: POTASSIUM CHLORIDE ORAL LIQUID 20 MEQ/15 ML PO SCH ×2 (07:37→21:16)
[2016-08-11] MEDS: TAMSULOSIN HCL 0.4 MG CAP.ER.24H (FP) PO SCH (07:37)
--- NOTE | 2016-08-11 08:53 | PN ---
Progress Note (short form) - Note Progress Note: ID Discussed house staff Now on Cefazolin Selected Entries 08/11/16 08/11/16 06:00 08:00 Temperature 98.9 F Pulse Rate 84 Respiratory 23 Rate Blood Pressure 102/60 Lung Clear Cor S1 S2 rr EXT dry necrotic ulcers both LE Microbiology 08/09/16 02:45 Urine - Urine Clean Catch Urine Culture - Preliminary Non Lactose Fermenting Gnb 08/08/16 16:40 Blood - Peripheral Venous Blood Culture - Preliminary Pending Organism 08/08/16 16:40 Blood - Peripheral Venous Blood Culture - Preliminary Escherichia Coli Laboratory Tests 08/09/16 08/11/16 08/11/16 02:45 05:15 05:15 WBC 8.9 Hgb 11.0 L Hct 32.4 L Plt Count 145 Creat Clearance w eGFR 47.58 Ur Leukocyte Esterase 3+ H Urine RBC 9 Urine WBC 1107 Assessment Urosepis E Coli pansensitive Plan Continue current antibiotics as ordered Mary TREJO Problem List - Problems (1) Diabetes mellitus Code(s): E11.9 - TYPE 2 DIABETES MELLITUS WITHOUT COMPLICATIONS Qualifiers: Diabetes mellitus type: type 2 Diabetes mellitus complication status: with kidney complications Diabetes mellitus complication detail: with chronic kidney disease Diabetes mellitus care home insulin use: with ferry terminal agent use Chronic kidney disease stage: stage 4 (severe) Qualified Code(s): E11.22 - Type 2 diabetes mellitus with diabetic chronic kidney disease ; N18.1 - Chronic kidney disease, stage 1; Z79.4 - ferry terminal agent (current) use of insulin (2) Sepsis Code(s): A41.9 - SEPSIS, UNSPECIFIED ORGANISM Qualifiers: Sepsis type: sepsis due to unspecified organism Qualified Code(s): A41.9 - Sepsis, unspecified organism (3) UTI (urinary tract infection) Code(s): N39.0 - URINARY TRACT INFECTION, SITE NOT SPECIFIED Qualifiers: Urinary tract infection type: site unspecified Hematuria presence: without hematuria Qualified Code(s): N39.0 - Urinary tract infection, site not specified
[2016-08-11] MEDS ORDERED: PT OWN MED DRAWER 7, Y5N ONE ×2 (09:09→21:00)
[2016-08-11] MEDS: CHOLECALCIFEROL (VITAMIN D3) 400 UNIT TABLET (FP) PO SCH (09:13)
[2016-08-11] MEDS: RIVAROXABAN 20 MG TABLET PO SCH (09:13)
[2016-08-11] MEDS: CARVEDILOL 6.25 MG TABLET (FP) PO SCH ×2 (09:13→21:14)
[2016-08-11] MEDS: ALLOPURINOL 100 MG TABLET (FP) PO SCH (09:13)
[2016-08-11] MEDS: TORSEMIDE 100 MG TABLET PO SCH (09:14)
[2016-08-11] MEDS: MUPIROCIN 2% TOPICAL OINTMENT FOR DECOLONIZATION NS SCH ×2 (09:41→21:13)
[2016-08-11] MEDS ORDERED: POTASSIUM CHLORIDE ORAL LIQUID 20 MEQ/15 ML PO SCH (10:00)
[2016-08-11] MEDS ORDERED: INSULIN DETEMIR 100 UNITS/ML MDV SQ ONE (10:45)
[2016-08-11] MEDS: oxyCODONE HCL 5 MG TABLET PO PRN ×2 (10:56→21:58)
[2016-08-11] MEDS: ACETAMINOPHEN 325 MG TABLET (FP) PO PRN ×2 (10:57→21:59)
[2016-08-11] MEDS ORDERED: KCL 10 MEQ IVPB 100 ML IVPB ONE (11:30)
--- NOTE | 2016-08-11 12:13 | PN ---
Progress Note, Physician History of Present Illness: Resting comfortably in bed, not dyspneic, afebrile. - Current Medication List Current Medications: Active Medications Acetaminophen (Tylenol -) 325 mg PO Q4H PRN PRN Reason: PAIN LEVEL 1-5 Stop: 08/12/16 22:35 Last Admin: 08/11/16 10:57 Dose: 325 mg Albuterol/Ipratropium (Duoneb -) 1 amp NEB DAILY PRN PRN Reason: SHORT OF BREATH/WHEEZING Allopurinol (Zyloprim -) 100 mg PO DAILY [facility] Last Admin: 08/11/16 09:13 Dose: 100 mg Atorvastatin Calcium (Lipitor -) 40 mg PO HS [facility] Carvedilol (Coreg -) 6.25 mg PO BID [facility] Last Admin: 08/11/16 09:13 Dose: 6.25 mg Chlorhexidine Gluconate (Hibiclens For Decolonization -) 1 applic TP HS [facility] Cholecalciferol (Vitamin D3 -) 400 unit PO DAILY [facility] Last Admin: 08/11/16 09:13 Dose: 400 unit Fluoxetine HCl (Prozac -) 40 mg PO HS [facility] Cefazolin Sodium (Ancef 1gm Ivpb (Pre-Docked)) 50 mls @ 100 mls/hr IVPB Q8H-IV [facility] Last Admin: 08/11/16 09:12 Dose: 100 mls/hr Potassium Chloride (Potassium Chloride 10 Meq Premix Ivpb -) 100 mls @ 100 mls/ hr IVPB ONCE ONE Stop: 08/11/16 12:29 Insulin Aspart (Novolog Vial Sliding Scale -) 1 vial SQ TIDAC [facility] PRN Reason: Protocol Lorazepam (Ativan -) 0.5 mg PO HS [facility] Mupirocin (Bactroban Ointment (For Decolonization) -) 1 applic NS BID [facility] Stop: 08/13/16 21:59 Last Admin: 08/11/16 09:41 Dose: 1 applic Oxycodone HCl (Roxicodone -) 5 mg PO Q4H PRN PRN Reason: PAIN LEVEL 1-5 Last Admin: 08/11/16 10:56 Dose: 5 mg Potassium Chloride (Potassium Chloride Oral Liquid) 40 meq PO BID [facility] Last Admin: 08/11/16 07:37 Dose: 40 meq Ranitidine HCl (Zantac -) 150 mg PO AM [facility] Last Admin: 08/11/16 06:43 Dose: 150 mg Rivaroxaban (Xarelto -) 20 mg PO DAILY [facility] Last Admin: 08/11/16 09:13 Dose: 20 mg Senna/Docusate Sodium (Pericolace -) 2 tablet PO [facility] Tamsulosin HCl (Flomax -) 0.4 mg PO DAILY@0830 [facility] Last Admin: 08/11/16 07:37 Dose: 0.4 mg Torsemide (Demadex -) 200 mg PO DAILY [facility] Last Admin: 08/11/16 09:14 Dose: 200 mg - Objective Vital Signs: Vital Signs Temperature 98.9 F 08/11/16 06:00 Pulse Rate 90 08/11/16 10:00 Respiratory Rate 23 08/11/16 10:00 Blood Pressure 106/60 08/11/16 10:00 O2 Sat by Pulse Oximetry (%) 96 08/11/16 11:34 Constitutional: Yes: No Distress, Calm Neck: Yes: Supple Cardiovascular: Yes: Regular Rate and Rhythm Respiratory: Yes: Regular, Diminished, On Nasal O2 Gastrointestinal: Yes: Normal Bowel Sounds, Soft Edema: Yes Edema: LLE: Trace, RLE: Trace Labs: CBC, BMP 08/11/16 05:15 08/11/16 05:15 INR, PTT INR 1.62 (0.82-1.09) H 08/08/16 21:35 Problem List - Problems (1) Diabetes mellitus Code(s): E11.9 - TYPE 2 DIABETES MELLITUS WITHOUT COMPLICATIONS Qualifiers: Diabetes mellitus type: type 2 Diabetes mellitus complication status: with kidney complications Diabetes mellitus complication detail: with chronic kidney disease Diabetes mellitus oysterman insulin use: with oysterman use Chronic kidney disease stage: stage 4 (severe) Qualified Code(s): E11.22 - Type 2 diabetes mellitus with diabetic chronic kidney disease ; N18.1 - Chronic kidney disease, stage 1; Z79.4 - alf (current) use of insulin (2) Sepsis Code(s): A41.9 - SEPSIS, UNSPECIFIED ORGANISM Qualifiers: Sepsis type: sepsis due to unspecified organism Qualified Code(s): A41.9 - Sepsis, unspecified organism (3) UTI (urinary tract infection) Code(s): N39.0 - URINARY TRACT INFECTION, SITE NOT SPECIFIED Qualifiers: Urinary tract infection type: site unspecified Hematuria presence: without hematuria Qualified Code(s): N39.0 - Urinary tract infection, site not specified (4) Acute on chronic systolic and diastolic heart failure, NYHA class 4 Code(s): I50.43 - ACUTE ON CHRONIC COMBINED SYSTOLIC AND DIASTOLIC HRT FAIL (5) COPD (chronic obstructive pulmonary disease) Code(s): J44.9 - CHRONIC OBSTRUCTIVE PULMONARY DISEASE, UNSPECIFIED Qualifiers : COPD type: chronic bronchitis (6) DVT prophylaxis Code(s): [id number] - (7) Hx of CABG Code(s): Z95.1 - PRESENCE OF AORTOCORONARY BYPASS GRAFT (8) Ischemic cardiomyopathy Code(s): I25.5 - ISCHEMIC CARDIOMYOPATHY (9) Morbid obesity Code(s): E66.01 - MORBID (SEVERE) OBESITY DUE TO EXCESS CALORIES Qualifiers: Obesity type: due to excess calories Qualified Code(s): E66.01 - Morbid (severe) obesity due to excess calories (10) Poor compliance Code(s): Z91.19 - PATIENT'S NONCOMPLIANCE W OTH MEDICAL TREATMENT AND REGIMEN (11) S/P CABG (coronary artery bypass graft) Code(s): Z95.1 - PRESENCE OF AORTOCORONARY BYPASS GRAFT (12) Severe left ventricular systolic dysfunction Code(s): I51.9 - HEART DISEASE, UNSPECIFIED (13) Single implantable cardioverter-defibrillator (ICD) in situ Code(s): Z95.810 - PRESENCE OF AUTOMATIC (IMPLANTABLE) CARDIAC DEFIBRILLATOR (14) Tobacco abuse Code(s): Z72.0 - TOBACCO USE (15) ASHD (arteriosclerotic heart disease) Code(s): I25.10 - ATHSCL HEART DISEASE OF [place] CORONARY ARTERY W/O ANG PCTRS (16) Diabetes mellitus, insulin dependent (IDDM), uncontrolled Code(s): E10.65 - TYPE 1 DIABETES MELLITUS WITH HYPERGLYCEMIA Qualifiers: Diabetes mellitus complication detail: with polyneuropathy (17) Obstructive sleep apnea of adult Code(s): G47.33 - OBSTRUCTIVE SLEEP APNEA (ADULT) (PEDIATRIC) Assessment/Plan 1. Chronic LV systolic failure with NYHA classification 3-4 heart failure with ischemic cardiomyopathy with pulm HTN 2. Urosepsis with aleman-sensitive E. coli bacteremia, h/o MRSA 3. CAD S/P CABG, angina pectoris 4. History of cardiac arrest S/P ICD 5. Chronic hypoxic respiratory failure with home O2 dependent COPD and pulmonary nodules 6. Type 2 diabetes mellitus 7. CVA 8. Acute on CKD resolved (now at baseline Cr 1.5) 9. Morbid obesity 10. History of RLE DVT 11. Persistent atrial fibrillation on NOAC 12. OSAS noncompliant with cpap PLAN: 1. Continue Demadex 200 qd with monitor diuretic response, renal fxn and electrolytes, replete K, Mg as you are 2. Complete Ancef course per C&S 3. Continue Carvedilol 6.25 bid, Atorvastatin 40 qhs and Xarelto 20 qPM 4. Resuming losartan 25 qd as renal fxn has stabilized 5. GI prophylaxis, cpap nightly
--- NOTE | 2016-08-11 12:30 | PN ---
Teaching Attending Note Name of Resident: Jemima Yoder ATTENDING PHYSICIAN STATEMENT I saw and evaluated the patient. I reviewed the resident's note and discussed the case with the resident. I agree with the resident's findings and plan as documented. SUBJECTIVE: Patient seen and examined in the ICU. No CP or SOB. (+) pansensitive E coli. No fevers or chills. Abdominal pain improved. OBJECTIVE: Intake & Output 08/08/16 08/09/16 08/10/16 08/11/16 23:59 23:59 23:59 23:59 Intake Total 359 071 6262 380 Output Total 5400 3300 1840 Balance 500 -1422 -2949 -1464 Weight 249 lb 1 oz 249 lb 1 oz 242 lb 3.2 oz 242 lb 14.4 oz Last Vital Signs Temp Pulse Resp BP Pulse Ox 98.9 F 90 23 106/60 96 08/11/16 06:00 08/11/16 10:00 08/11/16 10:00 08/11/16 10:00 08/11/16 11:34 Active Medications Acetaminophen (Tylenol -) 325 mg PO Q4H PRN PRN Reason: PAIN LEVEL 1-5 Stop: 08/12/16 22:35 Last Admin: 08/11/16 10:57 Dose: 325 mg Albuterol/Ipratropium (Duoneb -) 1 amp NEB DAILY PRN PRN Reason: SHORT OF BREATH/WHEEZING Allopurinol (Zyloprim -) 100 mg PO DAILY [facility] Last Admin: 08/11/16 09:13 Dose: 100 mg Atorvastatin Calcium (Lipitor -) 40 mg PO HS [facility] Carvedilol (Coreg -) 6.25 mg PO BID [facility] Last Admin: 08/11/16 09:13 Dose: 6.25 mg Chlorhexidine Gluconate (Hibiclens For Decolonization -) 1 applic TP HS [facility] Cholecalciferol (Vitamin D3 -) 400 unit PO DAILY [facility] Last Admin: 08/11/16 09:13 Dose: 400 unit Fluoxetine HCl (Prozac -) 40 mg PO HS [facility] Cefazolin Sodium (Ancef 1gm Ivpb (Pre-Docked)) 50 mls @ 100 mls/hr IVPB Q8H-IV [facility] Last Admin: 08/11/16 09:12 Dose: 100 mls/hr Potassium Chloride (Potassium Chloride 10 Meq Premix Ivpb -) 100 mls @ 100 mls/ hr IVPB ONCE ONE Stop: 08/11/16 12:29 Insulin Aspart (Novolog Vial Sliding Scale -) 1 vial SQ TIDAC [facility] PRN Reason: Protocol Lorazepam (Ativan -) 0.5 mg PO HS [facility] Losartan Potassium (Cozaar -) 25 mg PO DAILY [facility] Mupirocin (Bactroban Ointment (For Decolonization) -) 1 applic NS BID [facility] Stop: 08/13/16 21:59 Last Admin: 08/11/16 09:41 Dose: 1 applic Oxycodone HCl (Roxicodone -) 5 mg PO Q4H PRN PRN Reason: PAIN LEVEL 1-5 Last Admin: 08/11/16 10:56 Dose: 5 mg Potassium Chloride (Potassium Chloride Oral Liquid) 40 meq PO BID [facility] Last Admin: 08/11/16 07:37 Dose: 40 meq Ranitidine HCl (Zantac -) 150 mg PO AM [facility] Last Admin: 08/11/16 06:43 Dose: 150 mg Rivaroxaban (Xarelto -) 20 mg PO DAILY [facility] Last Admin: 08/11/16 09:13 Dose: 20 mg Senna/Docusate Sodium (Pericolace -) 2 tablet PO HS [facility] Tamsulosin HCl (Flomax -) 0.4 mg PO DAILY@0830 [facility] Last Admin: 08/11/16 07:37 Dose: 0.4 mg Torsemide (Demadex -) 200 mg PO DAILY [facility] Last Admin: 08/11/16 09:14 Dose: 200 mg Gen: Awake and alert, NAD Heart: RRR Lung: Basilar rhonchi Abd: soft, nontender Ext: chronic changes FIRE INVESTIGATION MANAGER: non-focal Laboratory Results - last 24 hr 08/10/16 08/10/16 08/11/16 18:18 21:27 05:15 WBC 8.9 RBC 3.55 L Hgb 11.0 L Hct 32.4 L MCV 91.1 MCHC 34.1 RDW 17.4 H Plt Count 145 MPV 8.5 Sodium Potassium Chloride Carbon Dioxide Anion Gap BUN Creatinine Creat Clearance w eGFR POC Glucometer 105.51231 129.32639 Random Glucose Calcium Phosphorus Magnesium Total Bilirubin AST ALT Alkaline Phosphatase Total Protein Albumin 08/11/16 08/11/16 08/11/16 05:15 06:04 08:47 WBC RBC Hgb Hct MCV MCHC RDW Plt Count MPV Sodium 139 Potassium 2.9 L* Chloride 99 Carbon Dioxide 32 Anion Gap 8 BUN 44 H Creatinine 1.5 H Creat Clearance w eGFR 47.58 POC Glucometer 113.44426 145.16082 Random Glucose 83 D Calcium 8.1 L Phosphorus 2.8 D Magnesium 1.6 L Total Bilirubin 1.0 D AST 59 H D ALT 58 Alkaline Phosphatase 350 H Total Protein 5.7 L Albumin 2.2 L 08/11/16 11:01 WBC RBC Hgb Hct MCV MCHC RDW Plt Count MPV Sodium Potassium Chloride Carbon Dioxide Anion Gap BUN Creatinine Creat Clearance w eGFR POC Glucometer 232.99906 Random Glucose Calcium Phosphorus Magnesium Total Bilirubin AST ALT Alkaline Phosphatase Total Protein Albumin ASSESSMENT AND PLAN: UTI Sepsis LV Systolic Dysfunction Pulmonary HTN CAD s/p CABG Atrial Fibrillation COPD Chronic Hypoxic Respiratory Failure Acute on CKD - ABX per ID - rate controlled - continue anticoagulation - Demadex - PO as tolerated - Floor Dr Milian
[2016-08-11] MEDS: LOSARTAN POTASSIUM 25 MG TABLET PO SCH (12:49)
--- NOTE | 2016-08-11 12:57 | PN ---
Teaching Attending Note Name of Resident: Melinda Carrillo ATTENDING PHYSICIAN STATEMENT I saw and evaluated the patient. I reviewed the resident's note and discussed the case with the resident. I agree with the resident's findings and plan as documented. SUBJECTIVE: no fever or chills . feels better, a little bit depressed . no SOB OBJECTIVE: NAD, AAOx3 CV: RRR, no MRG Abd: soft, obese , NT, ND . Lungs: CTAB Ext : trace edema and erythema on LE , scattered superficial ulcers on legs. L arm with small wound ( 2 cm ) , with minimal minimal purulent drainage weakness in L shoulder due to pain ASSESSMENT AND PLAN: 61 y/o man with h/o ICM , CKD , S CHF , CABG, s/p cardiac arrest , R LE DVT , and DM who presented with SOB and not feeling well and was found to have sepsis 2/2 UTI and bacteremia 1- Sepsis 2/2 UTI and bacteremia : blood cx and urine cx with E coli cont cefazolin 2- Poorly controlled DM , now better sugar control . levemir held this am due to sugar 114 . - gave 20 uits and montior sugar throught the day - dc HS coverage to avoid Am hypoglycemia - might need adjustment of am levemir 3- Acute S CHF : now volume status has much improved - cont demadex at home dose . - cont coreg - Off ASA while on xarelto 4- h/o DVT : cont xarelto. 5- CKD : base line Cr 1.7-2 . monitor
--- NOTE | 2016-08-11 16:45 | PN ---
Physical Exam: SUBJECTIVE: Patient seen and examined feels embarrassed that he was unable to make it to the bathroom to urinate. has been urinating "alot" wants to only take 100mg of the demadex so that he doesn' t urinate as often. OBJECTIVE: Vital Signs Period Temp Pulse Resp BP Sys/Mcconnell Pulse Ox Last 24 Hr 98.1 F-99.8 F 80-94 18-29 95-126/57-81 96-96 GENERAL: in no acute distress. EYES: PERRL, extraocular movements intact, sclera anicteric, conjunctiva clear. No ptosis. ENT: oropharynx clear without exudates, moist mucous membranes, edentulism LUNGS: Breath sounds equal, clear to auscultation bilaterally, left lower base with few crackles. HEART: Regular rate and rhythm, S1, S2 without murmur, rub or gallop. ABDOMEN: Soft, nontender, obese, nondistended, normoactive bowel sounds, no guarding, no rebound EXT: cool feet, left forearm with draining ulcer dressing cdi. scattered scabs in le. edema greatly decreased in b/l lower legs with scaling skin on right lower leg Laboratory Results - last 24 hr 08/10/16 08/10/16 08/11/16 18:18 21:27 05:15 WBC 8.9 RBC 3.55 L Hgb 11.0 L Hct 32.4 L MCV 91.1 MCHC 34.1 RDW 17.4 H Plt Count 145 MPV 8.5 Sodium Potassium Chloride Carbon Dioxide Anion Gap BUN Creatinine Creat Clearance w eGFR POC Glucometer 105.87747 129.75259 Random Glucose Calcium Phosphorus Magnesium Total Bilirubin AST ALT Alkaline Phosphatase Total Protein Albumin 08/11/16 08/11/16 08/11/16 05:15 06:04 08:47 WBC RBC Hgb Hct MCV MCHC RDW Plt Count MPV Sodium 139 Potassium 2.9 L* Chloride 99 Carbon Dioxide 32 Anion Gap 8 BUN 44 H Creatinine 1.5 H Creat Clearance w eGFR 47.58 POC Glucometer 113.46735 145.94789 Random Glucose 83 D Calcium 8.1 L Phosphorus 2.8 D Magnesium 1.6 L Total Bilirubin 1.0 D AST 59 H D ALT 58 Alkaline Phosphatase 350 H Total Protein 5.7 L Albumin 2.2 L 08/11/16 11:01 WBC RBC Hgb Hct MCV MCHC RDW Plt Count MPV Sodium Potassium Chloride Carbon Dioxide Anion Gap BUN Creatinine Creat Clearance w eGFR POC Glucometer 232.72966 Random Glucose Calcium Phosphorus Magnesium Total Bilirubin AST ALT Alkaline Phosphatase Total Protein Albumin Active Medications Generic Name Dose Route Start Last Admin Trade Name Freq PRN Reason Stop Dose Admin Acetaminophen 325 mg 08/10/16 23:52 08/11/16 10:57 Tylenol - PO 08/12/16 22:35 325 mg Q4H PRN Administration PAIN LEVEL 1-5 Albuterol/Ipratropium 1 amp 08/10/16 23:52 Duoneb - NEB DAILY PRN SHORT OF BREATH/WHEEZING Allopurinol 100 mg 08/11/16 10:00 08/11/16 09:13 Zyloprim - PO 100 mg DAILY MAGEN Administration Atorvastatin Calcium 40 mg 08/11/16 22:00 Lipitor - PO HS [facility] Carvedilol 6.25 mg 08/11/16 10:00 08/11/16 09:13 Coreg - PO 6.25 mg BID MAGEN Administration Chlorhexidine Gluconate 1 applic 08/11/16 22:00 Hibiclens For Decolonization - TP HS [facility] Cholecalciferol 400 unit 08/11/16 10:00 08/11/16 09:13 Vitamin D3 - PO 400 unit DAILY MAGEN Administration Fluoxetine HCl 40 mg 08/11/16 22:00 Prozac - PO HS [facility] Cefazolin Sodium 50 mls @ 100 mls/hr 08/10/16 12:54 08/11/16 09:12 Ancef 1gm Ivpb (Pre-Docked) IVPB 100 mls/hr Q8H-IV MAGEN Administration Insulin Aspart 1 vial 08/11/16 16:30 Novolog Vial Sliding Scale - SQ TIDAC [facility] Protocol Lorazepam 0.5 mg 08/11/16 22:00 Ativan - PO HS MAGEN Losartan Potassium 25 mg 08/11/16 12:30 08/11/16 12:49 Cozaar - PO 25 mg DAILY [facility] Administration Mupirocin 1 applic 08/11/16 10:00 08/11/16 09:41 Bactroban Ointment (For Decolonization) - NS 08/13/16 21:59 1 applic BID MAGEN Administration Oxycodone HCl 5 mg 08/10/16 23:52 08/11/16 10:56 Roxicodone - PO 5 mg Q4H PRN Administration PAIN LEVEL 1-5 Potassium Chloride 40 meq 08/11/16 07:30 08/11/16 07:37 Potassium Chloride Oral Liquid PO 40 meq BID MAG[facility] Administration Ranitidine HCl 150 mg 08/11/16 07:00 08/11/16 06:43 Zantac - PO 150 mg AM [facility] Administration Rivaroxaban 20 mg 08/11/16 10:00 08/11/16 09:13 Xarelto - PO 20 mg DAILY [facility] Administration Senna/Docusate Sodium 2 tablet 08/11/16 22:00 Pericolace - PO HS [facility] Tamsulosin HCl 0.4 mg 08/11/16 08:30 08/11/16 07:37 Flomax - PO 0.4 mg DAILY@0830 [facility] Administration Torsemide 200 mg 08/11/16 10:00 08/11/16 09:14 Demadex - PO 200 mg DAILY [facility] Administration ASSESSMENT/PLAN: 61 yr old man with HTN, DM II- uncontrolled, CAD, CHF with reduced EF and increased RV systolic pressure(ischemic cardiomyopathy),hx of NE, 4 vessel CABG , cardiac arrest s/p ICD placement, home O2 2.5L continuous-dependent due to COPD, CVA, hepatitis B, gout, CKD and right LE DVT on Xarelto. Infectious Disease sepsis secondary to uti/bacteremia - cefazolin 1gm q8hr consulted Dr. Hernandez Cardiovascular acute on chronic CHF - improving daily weights - weight decreased demadax 200mg po daily responding well to diuresis cont home meds: aspirin 81mg po daily, atorvastatin 40mg po HS, coreg 6.25po daily consult Dr. Hawley Renal MARCIAL on CKD - resolved -avoid nephrotoxic medications Endocrine DM II uncontrolled - improved with increased short-acting increased insulin sliding scale coverage, ACHS with increased NISS during the day, HS coverage dc'd to avoid pm hypoglycemia Pulmonary COPD- does not appear to be in exacerbation maintain saturatoin 88-92% duoneb q4h prn consult: Dr. Castlilo(outpatient physician as well) Rheumatological Gout allopurinol 100mg po daily Hematological hx of DVT: - xarelto 15mg po daily Psych depression: -cont fluoxetine 40mg po daily Dermatological can f/u as outpatient for wound care with Dr. Quispe for LE ulcers, likely from venous stasis, keep clean and dry Diet: diabetic diet DVT; on xarelto Dispo: can be monitored in med-surg Visit type - Emergency Visit Emergency Visit: No - New Patient This patient is new to me today: No - Critical Care Critical Care patient: No
--- NOTE | 2016-08-11 17:58 | PN ---
Physical Exam: SUBJECTIVE: Patient seen and examined at bed side this morning. Wanting to go home. He said he has been drinking a lot of water and is urinating more frequently. Denies chest pain, sob, cough, palpitation, abdominal pain, nausea or vomiting. Bowel/Bladder habit normal. Sleep/Appetite normal OBJECTIVE: Vital Signs Period Temp Pulse Resp BP Sys/Mcconnell Pulse Ox Last 24 Hr 98.1 F-99.8 F 80-94 18-29 95-126/57-81 96-96 GENERAL: Obese male, sitting comfortably in bed, awake, alert, and fully oriented, in no acute distress. HEAD: Normal with no signs of trauma. EYES: EOM intact, no pallor or icterus. ENT: Ears normal,moist mucous membranes. NECK: Trachea midline, full range of motion, supple, No JVD. LUNGS: B/L Breath sounds decreased, clear to auscultation bilaterally, no wheezes, no crackles, no accessory muscle use. HEART: Regular rate and rhythm, S1, S2 soft systolic murmur. ABDOMEN: Soft, tenderness on palpation over the left lower quadrant, nondistended, normoactive bowel sounds, no guarding, no rebound, no hepatosplenomegaly, no masses. UPPER EXTREMITIES: 2+ pulses, warm, well-perfused. Left forearm: around 1.5 cm x 1 cm incision on the left forearm with minimal serosanguinous drainage, area looks clean, no abscess noted. LOWER EXTREMITIES: 2+ pulses, warm, well-perfused, B/L pitting edema up to mid calf. B/L LE erythema, B/L blisters, superfical ulcers, no serosanguinous fluids, multiple scabbed wounds on the LE. NEUROLOGICAL: No facial droop, bulk/tone normal, power-5/5 in all extremities except in the lower extremities which are 4/5 Cranial nerves II through XII grossly intact. Normal speech, gait not observed. PSYCH: Normal mood, normal affect. SKIN: Warm, dry, normal turgor, no rashes or lesions noted Laboratory Results - last 24 hr 08/10/16 08/10/16 08/11/16 18:18 21:27 05:15 WBC 8.9 RBC 3.55 L Hgb 11.0 L Hct 32.4 L MCV 91.1 MCHC 34.1 RDW 17.4 H Plt Count 145 MPV 8.5 Sodium Potassium Chloride Carbon Dioxide Anion Gap BUN Creatinine Creat Clearance w eGFR POC Glucometer 105.85930 129.79761 Random Glucose Calcium Phosphorus Magnesium Total Bilirubin AST ALT Alkaline Phosphatase Total Protein Albumin 08/11/16 08/11/16 08/11/16 05:15 06:04 08:47 WBC RBC Hgb Hct MCV MCHC RDW Plt Count MPV Sodium 139 Potassium 2.9 L* Chloride 99 Carbon Dioxide 32 Anion Gap 8 BUN 44 H Creatinine 1.5 H Creat Clearance w eGFR 47.58 POC Glucometer 113.82372 145.39780 Random Glucose 83 D Calcium 8.1 L Phosphorus 2.8 D Magnesium 1.6 L Total Bilirubin 1.0 D AST 59 H D ALT 58 Alkaline Phosphatase 350 H Total Protein 5.7 L Albumin 2.2 L 08/11/16 11:01 WBC RBC Hgb Hct MCV MCHC RDW Plt Count MPV Sodium Potassium Chloride Carbon Dioxide Anion Gap BUN Creatinine Creat Clearance w eGFR POC Glucometer 232.16253 Random Glucose Calcium Phosphorus Magnesium Total Bilirubin AST ALT Alkaline Phosphatase Total Protein Albumin Active Medications Generic Name Dose Route Start Last Admin Trade Name Freq PRN Reason Stop Dose Admin Acetaminophen 325 mg 08/10/16 23:52 08/11/16 10:57 Tylenol - PO 08/12/16 22:35 325 mg Q4H PRN Administration PAIN LEVEL 1-5 Albuterol/Ipratropium 1 amp 08/10/16 23:52 Duoneb - NEB DAILY PRN SHORT OF BREATH/WHEEZING Allopurinol 100 mg 08/11/16 10:00 08/11/16 09:13 Zyloprim - PO 100 mg DAILY MAGEN Administration Atorvastatin Calcium 40 mg 08/11/16 22:00 Lipitor - PO HS [facility] Carvedilol 6.25 mg 08/11/16 10:00 08/11/16 09:13 Coreg - PO 6.25 mg BID MAGEN Administration Chlorhexidine Gluconate 1 applic 08/11/16 22:00 Hibiclens For Decolonization - TP HS [facility] Cholecalciferol 400 unit 08/11/16 10:00 08/11/16 09:13 Vitamin D3 - PO 400 unit DAILY [facility] Administration Fluoxetine HCl 40 mg 08/11/16 22:00 Prozac - PO HS [facility] Cefazolin Sodium 50 mls @ 100 mls/hr 08/10/16 12:54 08/11/16 17:22 Ancef 1gm Ivpb (Pre-Docked) IVPB 100 mls/hr Q8H-IV [facility] Administration Insulin Aspart 1 vial 08/11/16 16:30 08/11/16 17:22 Novolog Vial Sliding Scale - SQ 7 units TIDAC [facility] Administration Protocol Lorazepam 0.5 mg 08/11/16 22:00 Ativan - PO HS [facility] Losartan Potassium 25 mg 08/11/16 12:30 08/11/16 12:49 Cozaar - PO 25 mg DAILY [facility] Administration Mupirocin 1 applic 08/11/16 10:00 08/11/16 09:41 Bactroban Ointment (For Decolonization) - NS 08/13/16 21:59 1 applic BID [facility] Administration Oxycodone HCl 5 mg 08/10/16 23:52 08/11/16 10:56 Roxicodone - PO 5 mg Q4H PRN Administration PAIN LEVEL 1-5 Potassium Chloride 40 meq 08/11/16 07:30 08/11/16 07:37 Potassium Chloride Oral Liquid PO 40 meq BID [facility] Administration Ranitidine HCl 150 mg 08/11/16 07:00 08/11/16 06:43 Zantac - PO 150 mg AM [facility] Administration Rivaroxaban 20 mg 08/11/16 10:00 08/11/16 09:13 Xarelto - PO 20 mg DAILY [facility] Administration Senna/Docusate Sodium 2 tablet 08/11/16 22:00 Pericolace - PO HS [facility] Tamsulosin HCl 0.4 mg 08/11/16 08:30 08/11/16 07:37 Flomax - PO 0.4 mg DAILY@0830 [facility] Administration Torsemide 200 mg 08/11/16 10:00 08/11/16 09:14 Demadex - PO 200 mg DAILY [facility] Administration ASSESSMENT/PLAN: Patient is a 61 year old male with past medical history of ischemic cardiomyopathy, congestive heart failure class III-IV, s/p CABG, ICD, IDDM, COPD , diabetic leg ulcers; presented to the emergency room with fever, chills, sob, admitted for sepsis and acute CHF exacerbation. # Sepsis most likely secondary to UTI and Gram negative bacteremia-resolving Blood cultures-gram negative bacilli, E.coli IV Cefazolin 1gm Q8H Daily Vancomycin was given for previous abscess in the forearm s/p I and D ( Had MRSA) ID consult appreciated # Acute kidney injury on chronic kidney injury stage 3B Calculated fena is 0.4 % but probably not accurate since he was on Lasix Baseline creatinine is around 1.7-2 Avoid nephrotoxic agents # Acute on chronic systolic heart failure class III-IV Continue home medication Torsemide 200mg Daily Daily weights, strict I's and O's Continue Aspirin 81mg PO daily, Atorvastatin 40mg PO HS, Coreg 6.25 po daily (Not in pharmacy) Cardiology consult requested # Uncontrolled Diabetes Mellitus HbA1c 10.5 this admission Insulin sliding scale-TIDAC BGM Q4H Patient said he hasn't been taking insulin sliding scale since few days since his pen broke, also takes Victoza at home. # COPD on home oxygen-Not in exacerbation Oxygen PRN (Maintain saturation .88%- 92%) Duoneb Q4H prn # H/O DVT of lower ext;Chronic venous stasis with b/l LE superficial ulcers DVT of LE ruled out Traced previous Vascular study, didn't find any evidence of DVT in the past, confirmed patient had DVT in one of the leg and is on Xarelto since 3 months . COntinue Xarelto 20mg PO. # Gout-No flare Continue allopurinol 100mg PO daily, will keep it daily considering his kidney function. At home he is on 100mg BID # Depression Continue fluoxetine 40mg po daily Doesn't take Lorazepam 0.5mg at home, will bring all medications tomorrow and will d/c after confirming it. # FEN: Not on IV fluids. Restrict 1.5 L/day Electrolytes to be repeated tomorrow Diabetic diet # Prophylaxis For DVT: Already on Xarelto For GI: Not indicated Called pharmacy to confirm the medications. Few medications are not in the pharmacy: Lorazepam, Victoza, colchicine hasnt been picked up since April, # Disposition: Admitted in the ICU but now stable to be transferred in Tele with continuous cardiac monitoring. Duration of stay unknown. Case seen and discussed with Dr. Olguin. Visit type - Emergency Visit Emergency Visit: Yes ED Registration Date: 08/08/16 Care time: The patient presented to the Emergency Department on the above date and was hospitalized for further evaluation of their emergent condition. - New Patient This patient is new to me today: No - Critical Care Critical Care patient: No - Discharge Referral Referred to [facility] No
[2016-08-11] MEDS: LORazepam 0.5 MG TABLET PO SCH (21:13)
[2016-08-11] MEDS: CHLORHEXIDINE GLUCONATE 4% CLEANSER FOR DECOLONIZATION TP SCH (21:14)
[2016-08-11] MEDS: ATORVASTATIN CA 40 MG TABLET (FP) PO SCH (21:14)
[2016-08-11] MEDS: FLUoxetine HCL 20 MG CAPSULE (FP) PO SCH (21:15)
[2016-08-11] MEDS: SENNOSIDES/DOCUSATE COMBO (SENNA PLUS) TABLET (UD) PO SCH (21:15)
[2016-08-12] MEDS: CEFAZOLIN (PRE-DOCKED) 50 ML IVPB SCH ×3 (01:43→17:01)
[2016-08-12] MEDS ORDERED: INSULIN (NOVOLOG) ASPART 100 UNITS/ML 10ML VIAL ONE (05:43)
[2016-08-12] MEDS: INSULIN SLIDING SCALE (NOVOLOG) 1 VIAL SQ SCH ×3 (07:14→16:31)
[2016-08-12] MEDS: RANITIDINE HCL 150 MG TABLET (FP) PO SCH (07:15)
[2016-08-12 07:50] LABS: MCH 30.8 pg (25.7-33.7); MCHC 33.7 g/dl (32.0-35.9); MEAN CELL VOLUME 91.4 fl (80-96); MEAN PLT VOLUME 8.7 fl (7.5-11.1); PLATELET COUNT 146 K/MM3 (134-434); RDW 17.1 % (11.9-15.9)
[2016-08-12 08:08] LABS: ANION GAP 8 (8-16); CALCIUM 8.3 mg/dL (8.5-10.1); CO2 30 mmol/L (21-32); CREATININE 1.4 mg/dL (0.7-1.3); GLUCOSE,RANDOM 290 mg/dL (74-106)
[2016-08-12] MEDS ORDERED: INSULIN DETEMIR 100 UNITS/ML MDV SQ ONE (08:18)
[2016-08-12] MEDS: TAMSULOSIN HCL 0.4 MG CAP.ER.24H (FP) PO SCH (08:41)
[2016-08-12] MEDS: INSULIN DETEMIR 100 UNITS/ML MDV SQ SCH (08:43)
[2016-08-12] MEDS ORDERED: PT OWN MED DRAWER 7, Y5N ONE (09:51)
[2016-08-12] MEDS: CARVEDILOL 6.25 MG TABLET (FP) PO SCH ×2 (09:55→21:00)
[2016-08-12] MEDS: CHOLECALCIFEROL (VITAMIN D3) 400 UNIT TABLET (FP) PO SCH (09:55)
[2016-08-12] MEDS: ALLOPURINOL 100 MG TABLET (FP) PO SCH (09:55)
[2016-08-12] MEDS: RIVAROXABAN 20 MG TABLET PO SCH (09:55)
[2016-08-12] MEDS: POTASSIUM CHLORIDE ORAL LIQUID 20 MEQ/15 ML PO SCH (09:55)
[2016-08-12] MEDS: LOSARTAN POTASSIUM 25 MG TABLET PO SCH (09:55)
[2016-08-12] MEDS: MUPIROCIN 2% TOPICAL OINTMENT FOR DECOLONIZATION NS SCH ×2 (09:56→21:01)
[2016-08-12] MEDS: TORSEMIDE 100 MG TABLET PO SCH (09:57)
[2016-08-12] MEDS: ACETAMINOPHEN 325 MG TABLET (FP) PO PRN ×2 (10:20→17:01)
[2016-08-12] MEDS: oxyCODONE HCL 5 MG TABLET PO PRN (10:21)
--- NOTE | 2016-08-12 11:07 | PN ---
Progress Note (short form) - Note Progress Note: PULMONARY VSS Gen: Awake and alert, NAD Heart: RRR Lung: Basilar rhonchi Abd: soft, nontender Ext: chronic changes labs/meds/notes/imaging/micro noted ASSESSMENT AND PLAN: UTI Sepsis LV Systolic Dysfunction Pulmonary HTN CAD s/p CABG Atrial Fibrillation COPD Chronic Hypoxic Respiratory Failure Acute on CKD - ABX per ID - rate controlled - continue anticoagulation - Demadex - PO as tolerated Mak AGUSTIN MD
--- NOTE | 2016-08-12 13:09 | PN ---
Progress Note (short form) - Note Progress Note: Chief Complaint: Events noted, notes reviewed, denies any chest pain or dyspnea History of Present Illness: Seen and examined. Events noted, notes reviewed, denies any chest pain or dyspnea Echocardiography 12/07/2015 revealed severe LV systolic dysfunction with global hypokinesia, mild MR, mild to moderate TR. moderate pulmonary HTN Medications: Current Medications Acetaminophen (Tylenol -) 325 mg PO Q4H PRN PRN Reason: PAIN LEVEL 1-5 Stop: 08/12/16 22:35 Last Admin: 08/12/16 10:20 Dose: 325 mg Albuterol/Ipratropium (Duoneb -) 1 amp NEB DAILY PRN PRN Reason: SHORT OF BREATH/WHEEZING Allopurinol (Zyloprim -) 100 mg PO DAILY [facility] Last Admin: 08/12/16 09:55 Dose: 100 mg Atorvastatin Calcium (Lipitor -) 40 mg PO HS [facility] Last Admin: 08/11/16 21:14 Dose: 40 mg Carvedilol (Coreg -) 6.25 mg PO BID [facility] Last Admin: 08/12/16 09:55 Dose: 6.25 mg Chlorhexidine Gluconate (Hibiclens For Decolonization -) 1 applic TP HS [facility] Last Admin: 08/11/16 21:14 Dose: Not Given Cholecalciferol (Vitamin D3 -) 400 unit PO DAILY [facility] Last Admin: 08/12/16 09:55 Dose: 400 unit Fluoxetine HCl (Prozac -) 40 mg PO HS [facility] Last Admin: 08/11/16 21:15 Dose: 40 mg Cefazolin Sodium (Ancef 1gm Ivpb (Pre-Docked)) 50 mls @ 100 mls/hr IVPB Q8H-IV [facility] Last Admin: 08/12/16 09:56 Dose: 100 mls/hr Insulin Aspart (Novolog Vial Sliding Scale -) 1 vial SQ TIDAC [facility] PRN Reason: Protocol Last Admin: 08/12/16 10:59 Dose: 9 units Insulin Detemir (Levemir Vial) 50 units SQ AM [facility] Last Admin: 08/12/16 08:43 Dose: 50 units Lorazepam (Ativan -) 0.5 mg PO HS [facility] Last Admin: 08/11/16 21:13 Dose: 0.5 mg Losartan Potassium (Cozaar -) 25 mg PO DAILY [facility] Last Admin: 08/12/16 09:55 Dose: 25 mg Mupirocin (Bactroban Ointment (For Decolonization) -) 1 applic NS BID [facility] Stop: 08/13/16 21:59 Last Admin: 08/12/16 09:56 Dose: Not Given Oxycodone HCl (Roxicodone -) 5 mg PO Q4H PRN PRN Reason: PAIN LEVEL 1-5 Last Admin: 08/12/16 10:21 Dose: 5 mg Potassium Chloride (Potassium Chloride Oral Liquid) 40 meq PO BID [facility] Last Admin: 08/12/16 09:55 Dose: 40 meq Ranitidine HCl (Zantac -) 150 mg PO AM [facility] Last Admin: 08/12/16 07:15 Dose: 150 mg Rivaroxaban (Xarelto -) 20 mg PO DAILY [facility] Last Admin: 08/12/16 09:55 Dose: 20 mg Senna/Docusate Sodium (Pericolace -) 2 tablet PO HS [facility] Last Admin: 08/11/16 21:15 Dose: 2 tablet Tamsulosin HCl (Flomax -) 0.4 mg PO DAILY@0830 [facility] Last Admin: 08/12/16 08:41 Dose: 0.4 mg Torsemide (Demadex -) 200 mg PO DAILY [facility] Last Admin: 08/12/16 09:57 Dose: 200 mg Review of Systems Constitutional: denies Chills or Fever Respiratory: reports: Dyspnea Cardiovascular: As noted above Gastrointestinal: denies Nausea, Vomiting, Diarrhea or Constipation or Abdominal Discomfort but reports Abdominal distention Genitourinary: No Symptoms Reported Musculoskeletal: Right shoulder pain Vital Signs: Last Vital Signs Temp Pulse Resp BP Pulse Ox 98.8 F 81 18 126/71 96 08/12/16 08:43 08/12/16 08:43 08/12/16 08:43 08/12/16 08:43 08/11/16 21:00 Constitutional: No Distress, Calm Neck: Supple Negative JVD Respiratory: Clear to A&P Cardiovascular: S1 S2 Regular Rate and Rhythm Grade 1-2/6 SM Gastrointestinal: Soft Benign Normal Bowel Sounds Ext: 1 + Bilateral Edema Labs: CBC, BMP 08/12/16 06:30 08/12/16 06:30 Assessment/Plan ASSESSMENT: 1. Chronic LV systolic failure with NYHA classification II-III heart failure ( ischemic cardiomyopathy with pulmonary HTN), compensated 2. Urosepsis with aleman-sensitive E. coli bacteremia, history of MRSA 3. CAD post CABG, angina pectoris 4. History of cardiac arrest post ICD 5. Persistent atrial fibrillation on NOAC's 6. HTN 7. DM 8. Hypercholesterolemia 9. History of CVA 10. Chronic hypoxic respiratory failure with home O2 dependent COPD 11. OSAS noncompliant with cpap 12. Acute on CKD resolved 13. History of RLE DVT 14. Morbid obesity PLAN: 1. Continue Demadex with close monitoring of renal function 2. Antibiotics as per the primary team 3. Continue Carvedilol 4. Continue Cozaar with close monitoring of renal function 5. Continue Atorvastatin 6. Continue Xarelto at the above noted dosage Ashwin Pittman MD
--- NOTE | 2016-08-12 16:13 | PN ---
Progress Note (short form) - Note Progress Note: Subjective: no fever or chills, has no CP . has no SOB . feels better Objective: Vital Signs: Last Vital Signs Temp Pulse Resp BP Pulse Ox 98.2 F 79 18 120/78 96 08/12/16 14:31 08/12/16 14:31 08/12/16 14:31 08/12/16 14:31 08/11/16 21:00 I&O: Intake & Output 08/09/16 08/10/16 08/11/16 08/12/16 23:59 23:59 23:59 23:59 Intake Total 640 1590 670 300 Output Total 5400 3300 2340 Balance -6755 -0081 -8218 300 Weight 249 lb 1 oz 242 lb 3.2 oz 242 lb 14.4 oz Laboratory Results - last 24 hr 08/11/16 08/12/16 08/12/16 17:20 06:30 06:30 WBC 8.0 RBC 3.68 L Hgb 11.3 L Hct 33.6 L MCV 91.4 MCHC 33.7 RDW 17.1 H Plt Count 146 MPV 8.7 Sodium 138 Potassium 3.5 D Chloride 100 Carbon Dioxide 30 Anion Gap 8 BUN 39 H Creatinine 1.4 H POC Glucometer 259 Random Glucose 290 H D Calcium 8.3 L 08/12/16 08/12/16 07:11 10:54 WBC RBC Hgb Hct MCV MCHC RDW Plt Count MPV Sodium Potassium Chloride Carbon Dioxide Anion Gap BUN Creatinine POC Glucometer 310 304 Random Glucose Calcium Physical Exam: NAD, AAOx3 CV: RRR, no MRG Abd: soft, obese , NT, ND . Lungs: CTAB Ext : trace edema and erythema on LE , scattered scabs on legs and feet . L arm with small wound ( 2 cm ) , with minimal purulent drainage weakness in L shoulder due to pain ASSESSMENT AND PLAN: 61 y/o man with h/o ICM , CKD , S CHF , CABG, s/p cardiac arrest , R LE DVT , and DM who presented with SOB and not feeling well and was found to have sepsis 2/2 UTI and bacteremia 1- Sepsis 2/2 UTI and bacteremia : blood cx and urine cx with E coli cont cefazolin day 4/7 , then switch to po ABx for 7 more days no leukocytosis of fever 2- Poorly controlled DM , - give 50 of levemir today and daily - cont SSI 3- Acute S CHF : now volume status has much improved - cont demadex at home dose . - cont coreg - Off ASA while on xarelto. dose is correct for his renal function ( d/w pharmacysit ) 4- h/o DVT : cont xarelto. 5- CKD : base line Cr 1.7-2. monitor 6- pt uses oxygen at home, check pre-post sat O2 with ambulation dispo : need IV abx through 08/15 then can be dc Visit type - Emergency Visit Emergency Visit: Yes ED Registration Date: 08/08/16 Care time: The patient presented to the Emergency Department on the above date and was hospitalized for further evaluation of their emergent condition. - New Patient This patient is new to me today: No - Critical Care Critical Care patient: No
[2016-08-12] MEDS: LORazepam 0.5 MG TABLET PO SCH (21:00)
[2016-08-12] MEDS: CHLORHEXIDINE GLUCONATE 4% CLEANSER FOR DECOLONIZATION TP SCH (21:01)
[2016-08-12] MEDS: SENNOSIDES/DOCUSATE COMBO (SENNA PLUS) TABLET (UD) PO SCH (21:02)
[2016-08-12] MEDS: ATORVASTATIN CA 40 MG TABLET (FP) PO SCH (21:02)
[2016-08-12] MEDS: FLUoxetine HCL 20 MG CAPSULE (FP) PO SCH (21:03)
[2016-08-13] MEDS ORDERED: ACETAMINOPHEN 500 MG TABLET (FP) PO ONE (01:30)
[2016-08-13] MEDS ORDERED: ACETAMINOPHEN 325 MG TABLET (FP) ONE (01:31)
[2016-08-13] MEDS: CEFAZOLIN (PRE-DOCKED) 50 ML IVPB SCH ×3 (01:53→18:34)
[2016-08-13] MEDS: INSULIN SLIDING SCALE (NOVOLOG) 1 VIAL SQ SCH ×3 (06:39→16:37)
[2016-08-13] MEDS: INSULIN DETEMIR 100 UNITS/ML MDV SQ SCH (08:35)
[2016-08-13] MEDS: TAMSULOSIN HCL 0.4 MG CAP.ER.24H (FP) PO SCH (08:36)
--- NOTE | 2016-08-13 08:59 | PN ---
Progress Note (short form) - Note Progress Note: ID Remains stable on IV Cefazolin Afebrile but temp spike 101.5 ?? Looks comfortable No complaints Selected Entries 08/13/16 08/13/16 01:29 08:34 Temperature 101.5 F H Pulse Rate 83 Respiratory 18 Rate Blood Pressure 126/83 Lung Clear Cor S1 S2 RR Abd Soft nontender Ext Venous stasis dry eschar ulcerations Microbiology 08/09/16 02:45 Urine - Urine Clean Catch Urine Culture - Final Escherichia Coli 08/08/16 16:40 Blood - Peripheral Venous Blood Culture - Final Escherichia Coli 08/08/16 16:40 Blood - Peripheral Venous Blood Culture - Final Escherichia Coli Laboratory Tests 08/12/16 08/12/16 06:30 06:30 WBC 8.0 Hgb 11.3 L Plt Count 146 BUN 39 H Creatinine 1.4 H Assessment E Coli bacteremia UTI Plan Continue Cefazolin Reculture Patients hygiene poor encouraged to shower Mary TREJO Problem List - Problems (1) Diabetes mellitus Code(s): E11.9 - TYPE 2 DIABETES MELLITUS WITHOUT COMPLICATIONS Qualifiers: Diabetes mellitus type: type 2 Diabetes mellitus complication status: with kidney complications Diabetes mellitus complication detail: with chronic kidney disease Diabetes mellitus skilled nursing insulin use: with skilled nursing use Chronic kidney disease stage: stage 4 (severe) Qualified Code(s): E11.22 - Type 2 diabetes mellitus with diabetic chronic kidney disease ; N18.1 - Chronic kidney disease, stage 1; Z79.4 - local [employer] (current) use of insulin (2) Sepsis Code(s): A41.9 - SEPSIS, UNSPECIFIED ORGANISM Qualifiers: Sepsis type: sepsis due to unspecified organism Qualified Code(s): A41.9 - Sepsis, unspecified organism (3) UTI (urinary tract infection) Code(s): N39.0 - URINARY TRACT INFECTION, SITE NOT SPECIFIED Qualifiers: Urinary tract infection type: site unspecified Hematuria presence: without hematuria Qualified Code(s): N39.0 - Urinary tract infection, site not specified
[2016-08-13 09:09] LABS: ANION GAP 11 (8-16); CALCIUM 8.8 mg/dL (8.5-10.1); CO2 28 mmol/L (21-32); CREATININE 1.6 mg/dL (0.7-1.3); GLUCOSE,RANDOM 219 mg/dL (74-106); MAGNESIUM 1.8 mg/dL (1.8-2.4); PHOSPHOROUS 2.9 mg/dL (2.5-4.9)
[2016-08-13] MEDS ORDERED: PT OWN MED DRAWER 7, Y5N ONE (10:03)
[2016-08-13] MEDS: oxyCODONE HCL 5 MG TABLET PO PRN (10:06)
[2016-08-13] MEDS: ACETAMINOPHEN 325 MG TABLET (FP) PO PRN ×2 (10:07→16:32)
[2016-08-13] MEDS: CHOLECALCIFEROL (VITAMIN D3) 400 UNIT TABLET (FP) PO SCH (10:07)
[2016-08-13] MEDS: POTASSIUM CHLORIDE ORAL LIQUID 20 MEQ/15 ML PO SCH (10:07)
[2016-08-13] MEDS: MUPIROCIN 2% TOPICAL OINTMENT FOR DECOLONIZATION NS SCH (10:08)
[2016-08-13] MEDS: LOSARTAN POTASSIUM 25 MG TABLET PO SCH (10:08)
[2016-08-13] MEDS: CARVEDILOL 6.25 MG TABLET (FP) PO SCH ×2 (10:08→22:25)
[2016-08-13] MEDS: RIVAROXABAN 20 MG TABLET PO SCH (10:08)
[2016-08-13] MEDS: ALLOPURINOL 100 MG TABLET (FP) PO SCH (10:09)
[2016-08-13] MEDS: RANITIDINE HCL 150 MG TABLET (FP) PO SCH (10:09)
[2016-08-13] MEDS: TORSEMIDE 100 MG TABLET PO SCH (10:10)
--- NOTE | 2016-08-13 10:18 | PN ---
Progress Note (short form) - Note Progress Note: PULMONARY VSS Gen: Awake and alert, NAD Heart: RRR Lung: Basilar rhonchi Abd: soft, nontender Ext: chronic changes labs/meds/notes/imaging/micro noted ASSESSMENT AND PLAN: UTI ECOLI BACTEREMIA Sepsis LV Systolic Dysfunction Pulmonary HTN CAD s/p CABG Atrial Fibrillation COPD Chronic Hypoxic Respiratory Failure Acute on CKD - ABX per ID - rate controlled - continue anticoagulation - Demadex - PO as tolerated Mak AGUSTIN MD
[2016-08-13] MEDS ORDERED: POTASSIUM CHLORIDE TABS 20 MEQ TABLET.ER (FP) PO ONE ×2 (11:00→13:45)
--- NOTE | 2016-08-13 11:10 | PN ---
Progress Note (short form) - Note Progress Note: Subjective: no pain or SOB . had fever last night Objective: Vital Signs: Last Vital Signs Temp Pulse Resp BP Pulse Ox 99.4 F 83 18 126/83 98 08/13/16 08:34 08/13/16 08:34 08/13/16 08:34 08/13/16 08:34 08/12/16 21:00 Laboratory Results - last 24 hr 08/12/16 08/12/16 08/13/16 10:54 16:30 06:30 Sodium 137 Potassium 3.4 L Chloride 98 Carbon Dioxide 28 Anion Gap 11 BUN 37 H Creatinine 1.6 H POC Glucometer 304 302 Random Glucose 219 H D Calcium 8.8 Phosphorus 2.9 Magnesium 1.8 08/13/16 06:37 Sodium Potassium Chloride Carbon Dioxide Anion Gap BUN Creatinine POC Glucometer 230 Random Glucose Calcium Phosphorus Magnesium Physical Exam: NAD, AAOx3 CV: RRR, no MRG Lungs: CTAB Ext : trace edema and erythema on LE , scattered scabs on legs and feet . L arm with small wound ( 2 cm ) , with minimal slough weakness in L shoulder due to pain ASSESSMENT AND PLAN: 61 y/o man with h/o ICM , CKD , S CHF , CABG, s/p cardiac arrest , R LE DVT , and DM who presented with SOB and not feeling well and was found to have sepsis 2/2 UTI and bacteremia 1- Sepsis 2/2 UTI and bacteremia : blood cx and urine cx with E coli had fever last night cont cefazoline follow repeat cx 2- Poorly controlled DM , - cont 50 of levemir daily . if needed we can increase - cont SSI 3- Acute S CHF : now volume status has much improved - cont demadex at home dose . - cont coreg - Off ASA while on xarelto. dose is correct for his renal function ( d/w pharmacysit ) 4- h/o Afib : co nt xarelto 5- h/o DVT : cont xarelto. 6- CKD : base line Cr 1.7-2. monitor replete K cont to need IV abx Visit type - Emergency Visit Emergency Visit: Yes ED Registration Date: 08/08/16 Care time: The patient presented to the Emergency Department on the above date and was hospitalized for further evaluation of their emergent condition. - New Patient This patient is new to me today: No - Critical Care Critical Care patient: No
--- NOTE | 2016-08-13 11:55 | PN ---
Progress Note (short form) - Note Progress Note: Chief Complaint: Events noted, notes reviewed, denies any chest pain or dyspnea , fever last night History of Present Illness: Seen and examined. Events noted, notes reviewed, denies any chest pain or dyspnea, fever last night Echocardiography 12/07/2015 revealed severe LV systolic dysfunction with global hypokinesia, mild MR, mild to moderate TR. moderate pulmonary HTN Medications: Current Medications Acetaminophen (Tylenol -) 325 mg PO Q4H PRN PRN Reason: FEVER Last Admin: 08/13/16 10:07 Dose: 325 mg Albuterol/Ipratropium (Duoneb -) 1 amp NEB DAILY PRN PRN Reason: SHORT OF BREATH/WHEEZING Allopurinol (Zyloprim -) 100 mg PO DAILY [facility] Last Admin: 08/13/16 10:09 Dose: 100 mg Atorvastatin Calcium (Lipitor -) 40 mg PO HS [facility] Last Admin: 08/12/16 21:02 Dose: 40 mg Carvedilol (Coreg -) 6.25 mg PO BID [facility] Last Admin: 08/13/16 10:08 Dose: 6.25 mg Chlorhexidine Gluconate (Hibiclens For Decolonization -) 1 applic TP HS [facility] Last Admin: 08/12/16 21:01 Dose: Not Given Cholecalciferol (Vitamin D3 -) 400 unit PO DAILY [facility] Last Admin: 08/13/16 10:07 Dose: 400 unit Fluoxetine HCl (Prozac -) 40 mg PO HS [facility] Last Admin: 08/12/16 21:03 Dose: 40 mg Cefazolin Sodium (Ancef 1gm Ivpb (Pre-Docked)) 50 mls @ 100 mls/hr IVPB Q8H-IV [facility] Last Admin: 08/13/16 10:09 Dose: 100 mls/hr Insulin Aspart (Novolog Vial Sliding Scale -) 1 vial SQ TIDAC [facility] PRN Reason: Protocol Last Admin: 08/13/16 06:39 Dose: 5 units Insulin Detemir (Levemir Vial) 50 units SQ AM [facility] Last Admin: 08/13/16 08:35 Dose: 50 units Lorazepam (Ativan -) 0.5 mg PO HS [facility] Last Admin: 08/12/16 21:00 Dose: 0.5 mg Losartan Potassium (Cozaar -) 25 mg PO DAILY [facility] Last Admin: 08/13/16 10:08 Dose: 25 mg Mupirocin (Bactroban Ointment (For Decolonization) -) 1 applic NS BID [facility] Stop: 08/13/16 21:59 Last Admin: 08/13/16 10:08 Dose: Not Given Oxycodone HCl (Roxicodone -) 5 mg PO Q4H PRN PRN Reason: PAIN LEVEL 1-5 Last Admin: 08/13/16 10:06 Dose: 5 mg Potassium Chloride (Potassium Chloride Oral Liquid) 20 meq PO DAILY [facility] Last Admin: 08/13/16 10:07 Dose: 20 meq Ranitidine HCl (Zantac -) 150 mg PO AM [facility] Last Admin: 08/13/16 10:09 Dose: Not Given Rivaroxaban (Xarelto -) 20 mg PO DAILY [facility] Last Admin: 08/13/16 10:08 Dose: 20 mg Senna/Docusate Sodium (Pericolace -) 2 tablet PO HS [facility] Last Admin: 08/12/16 21:02 Dose: 2 tablet Tamsulosin HCl (Flomax -) 0.4 mg PO DAILY@0830 [facility] Last Admin: 08/13/16 08:36 Dose: 0.4 mg Torsemide (Demadex -) 200 mg PO DAILY [facility] Last Admin: 08/13/16 10:10 Dose: 200 mg Vital Signs: Last Vital Signs Temp Pulse Resp BP Pulse Ox 99.4 F 83 18 126/83 98 08/13/16 08:34 08/13/16 08:34 08/13/16 08:34 08/13/16 08:34 08/12/16 21:00 Constitutional: No Distress, Calm Neck: Supple Negative JVD No Bruit Respiratory: Clear to A&P Cardiovascular: S1 S2 Regular Rate and Rhythm Grade 1-2/6 SM Gastrointestinal: Soft Benign Normal Bowel Sounds Ext: 1 + Bilateral Edema Labs: CBC, BMP 08/12/16 06:30 08/13/16 06:30 Assessment/Plan ASSESSMENT: 1. LV systolic failure with chronic class II-III NYHA classification heart failure (ischemic dilated cardiomyopathy with pulmonary HTN), compensated 2. Urosepsis with aleman-sensitive E. coli bacteremia, history of MRSA, recurrent fever 3. CAD post CABG, angina pectoris 4. History of cardiac arrest post ICD 5. Persistent atrial fibrillation on NOAC's 6. HTN 7. DM 8. Hypercholesterolemia 9. History of CVA 10. Chronic hypoxic respiratory failure with home O2 dependent COPD 11. OSAS noncompliant with CPAP 12. Acute on CKD resolved 13. History of RLE DVT 14. Morbid obesity PLAN: 1. Continue Demadex with close monitoring of renal function 2. Continue Carvedilol 3. Continue Cozaar with close monitoring of renal function 4. Continue Atorvastatin 5. Continue Xarelto at the above noted dosage 6. Antibiotics as per the primary team Ashwin Pittman MD
[2016-08-13] MEDS ORDERED: LORazepam 0.5 MG TABLET PO ONE (18:30)
[2016-08-13] MEDS: CHLORHEXIDINE GLUCONATE 4% CLEANSER FOR DECOLONIZATION TP SCH (22:25)
[2016-08-13] MEDS: LORazepam 0.5 MG TABLET PO SCH (22:25)
[2016-08-13] MEDS: FLUoxetine HCL 20 MG CAPSULE (FP) PO SCH (22:26)
[2016-08-13] MEDS: ATORVASTATIN CA 40 MG TABLET (FP) PO SCH (22:26)
[2016-08-13] MEDS: SENNOSIDES/DOCUSATE COMBO (SENNA PLUS) TABLET (UD) PO SCH (22:26)
[2016-08-14] MEDS: CEFAZOLIN (PRE-DOCKED) 50 ML IVPB SCH (02:10)
[2016-08-14] MEDS: ACETAMINOPHEN 325 MG TABLET (FP) PO PRN (02:14)
[2016-08-14] MEDS: oxyCODONE HCL 5 MG TABLET PO PRN ×3 (02:24→22:21)
[2016-08-14] MEDS: INSULIN SLIDING SCALE (NOVOLOG) 1 VIAL SQ SCH ×3 (06:46→16:44)
[2016-08-14] MEDS: INSULIN DETEMIR 100 UNITS/ML MDV SQ SCH (06:47)
[2016-08-14] MEDS: RANITIDINE HCL 150 MG TABLET (FP) PO SCH (06:48)
[2016-08-14 08:13] LABS: ANION GAP 10 (8-16); CALCIUM 8.5 mg/dL (8.5-10.1); CO2 31 mmol/L (21-32); CREATININE 1.5 mg/dL (0.7-1.3); GLUCOSE,RANDOM 190 mg/dL (74-106); MCH 30.9 pg (25.7-33.7); MCHC 33.9 g/dl (32.0-35.9); PLATELET COUNT 157 K/MM3 (134-434); RDW 17.9 % (11.9-15.9); WHITE BLOOD COUNT 10.4 K/mm3 (4.0-10.0)
--- NOTE | 2016-08-14 09:32 | PN ---
Progress Note (short form) - Note Progress Note: chills and shakes overnight feels better today no nausea no abdominal pain back pain unchanged continued left shoulder pain no sob Vital Signs Period Temp Pulse Resp BP Sys/Mcconnell Pulse Ox Last 24 Hr 99.2 F-102.8 F 84-99 18-20 130-149/75-76 96 cor-rrr lungs decreased at bases abd soft,nt ext no erythema of left shoulder pain on palpation of joint, no effusion noted multiple scabs on legs, left forearm healed CBC, BMP 08/14/16 06:00 08/14/16 06:00 Microbiology 08/13/16 08:00 Blood - Peripheral Venous Blood Culture - Preliminary Non Lactose Fermenting Gnb 08/13/16 08:00 Blood - Peripheral Venous Blood Culture - Preliminary Non Lactose Fermenting Gnb 08/10/16 05:50 Blood - Peripheral Venous Blood Culture - Preliminary NO GROWTH OBTAINED AFTER 96 HOURS, INCUBATION TO CONTINUE FOR 1 DAYS. 08/10/16 05:50 Blood - Peripheral Venous Blood Culture - Preliminary NO GROWTH OBTAINED AFTER 96 HOURS, INCUBATION TO CONTINUE FOR 1 DAYS. 08/09/16 02:45 Urine - Urine Clean Catch Urine Culture - Final Escherichia Coli 08/08/16 16:40 Blood - Peripheral Venous Blood Culture - Final Escherichia Coli 08/08/16 16:40 Blood - Peripheral Venous Blood Culture - Final Escherichia Coli a/p recurrent GN bacteremia- ?gu with obstruction, ?gi -not sure yet if same or different organism meropenem abdominal imaging shoulder imaging echo-has AICD-no MRI will d/w primary service esr/crp CAD-CHF- AICD DM poorly controlled
--- NOTE | 2016-08-14 09:40 | PN ---
Progress Note (short form) - Note Progress Note: PULMONARY febrile/oob to chair Gen: Awake and alert, NAD Heart: RRR Lung: distant but clear breath sounds Abd: soft, nontender Ext: chronic changes lower ext/ left upper extremity eschar with surrounding edema labs/meds/notes/imaging/micro noted repeat bld cultures noted ASSESSMENT AND PLAN: UTI ECOLI BACTEREMIA ?septic arthritis left shouder vs osteo Sepsis LV Systolic Dysfunction Pulmonary HTN CAD s/p CABG Atrial Fibrillation COPD Chronic Hypoxic Respiratory Failure Acute on CKD - left shoulder xray - check id on bld culture - ABX per ID - rate controlled - continue anticoagulation - Demadex - PO as tolerated Mak AGUSTIN MD
[2016-08-14] MEDS ORDERED: PT OWN MED DRAWER 7, Y5N ONE ×3 (10:07→21:25)
[2016-08-14] MEDS: CARVEDILOL 6.25 MG TABLET (FP) PO SCH ×2 (10:10→22:14)
[2016-08-14] MEDS: LOSARTAN POTASSIUM 25 MG TABLET PO SCH (10:10)
[2016-08-14] MEDS: TAMSULOSIN HCL 0.4 MG CAP.ER.24H (FP) PO SCH (10:12)
[2016-08-14] MEDS: POTASSIUM CHLORIDE ORAL LIQUID 20 MEQ/15 ML PO SCH (10:12)
[2016-08-14] MEDS: TORSEMIDE 100 MG TABLET PO SCH (10:12)
[2016-08-14] MEDS: ALLOPURINOL 100 MG TABLET (FP) PO SCH (10:13)
[2016-08-14] MEDS: RIVAROXABAN 20 MG TABLET PO SCH (10:13)
[2016-08-14] MEDS: CHOLECALCIFEROL (VITAMIN D3) 400 UNIT TABLET (FP) PO SCH (10:13)
[2016-08-14 10:42] LABS: PLATELET ESTIMATE ADEQUATE (NORMAL)
[2016-08-14] MEDS: MEROPENEM 1 GM in DEXTROSE 5%-WATER - 100 ML IVPB SCH ×2 (10:47→17:22)
[2016-08-14] MEDS ORDERED: INSULIN (NOVOLOG) ASPART 100 UNITS/ML 10ML VIAL ONE ×2 (11:36→16:35)
--- NOTE | 2016-08-14 12:00 | PN ---
Progress Note, Physician Chief Complaint: Not in distress Feels better Intermittent fever History of Present Illness: Patient was seen and examined. Awake and alert. Chart was reviewed Denies chest pain or palpitations Less SOB, but still with O2 via NC Wanting to go home - Current Medication List Current Medications: Active Medications Acetaminophen (Tylenol -) 650 mg PO Q6H PRN PRN Reason: FEVER Last Admin: 08/14/16 02:14 Dose: 650 mg Albuterol/Ipratropium (Duoneb -) 1 amp NEB DAILY PRN PRN Reason: SHORT OF BREATH/WHEEZING Allopurinol (Zyloprim -) 100 mg PO DAILY [facility] Last Admin: 08/14/16 10:13 Dose: 100 mg Atorvastatin Calcium (Lipitor -) 40 mg PO HS [facility] Last Admin: 08/13/16 22:26 Dose: 40 mg Carvedilol (Coreg -) 6.25 mg PO BID [facility] Last Admin: 08/14/16 10:10 Dose: 6.25 mg Chlorhexidine Gluconate (Hibiclens For Decolonization -) 1 applic TP HS [facility] Last Admin: 08/13/16 22:25 Dose: Not Given Cholecalciferol (Vitamin D3 -) 400 unit PO DAILY [facility] Last Admin: 08/14/16 10:13 Dose: 400 unit Fluoxetine HCl (Prozac -) 40 mg PO HS [facility] Last Admin: 08/13/16 22:26 Dose: 40 mg Meropenem 1 gm/ Dextrose 100 mls @ 100 mls/hr IVPB Q8H-IV [facility] PRN Reason: Protocol Last Admin: 08/14/16 10:47 Dose: 100 mls/hr Insulin Aspart (Novolog Vial Sliding Scale -) 1 vial SQ TIDAC [facility] PRN Reason: Protocol Last Admin: 08/14/16 11:38 Dose: 9 units Insulin Detemir (Levemir Vial) 50 units SQ AM [facility] Last Admin: 08/14/16 06:47 Dose: 50 units Lorazepam (Ativan -) 0.5 mg PO HS [facility] Last Admin: 08/13/16 22:25 Dose: 0.5 mg Losartan Potassium (Cozaar -) 25 mg PO DAILY [facility] Last Admin: 08/14/16 10:10 Dose: 25 mg Oxycodone HCl (Roxicodone -) 5 mg PO Q4H PRN PRN Reason: PAIN Last Admin: 08/14/16 02:24 Dose: 5 mg Potassium Chloride (Potassium Chloride Oral Liquid) 20 meq PO DAILY [facility] Last Admin: 08/14/16 10:12 Dose: 20 meq Ranitidine HCl (Zantac -) 150 mg PO AM [facility] Last Admin: 08/14/16 06:48 Dose: 150 mg Rivaroxaban (Xarelto -) 20 mg PO DAILY [facility] Last Admin: 08/14/16 10:13 Dose: 20 mg Senna/Docusate Sodium (Pericolace -) 2 tablet PO HS [facility] Last Admin: 08/13/16 22:26 Dose: 2 tablet Tamsulosin HCl (Flomax -) 0.4 mg PO DAILY@0830 [facility] Last Admin: 08/14/16 10:12 Dose: 0.4 mg Torsemide (Demadex -) 200 mg PO DAILY [facility] Last Admin: 08/14/16 10:12 Dose: 200 mg - Objective Vital Signs: Vital Signs Temperature 99.2 F 08/14/16 05:53 Pulse Rate 84 08/14/16 05:53 Respiratory Rate 20 08/14/16 05:53 Blood Pressure 149/76 08/14/16 05:53 O2 Sat by Pulse Oximetry (%) 96 08/13/16 21:00 Neck: Yes: Supple Cardiovascular: Yes: Pulse Irregular, Murmur (Soft SM), S1, S2 Respiratory: Yes: Diminished Gastrointestinal: Yes: Normal Bowel Sounds, Soft. No: Tenderness Edema: Yes Edema: LLE: Trace, RLE: Trace Additional Findings/Remarks: - Review of Systems Constitutional: reports: Chills, Fever Cardiovascular: reports: Shortness of Breath. denies: Chest Pain, Palpitations Respiratory: reports: Orthopnea, SOB, SOB on Exertion. denies: Cough, Hemoptysis, PND, Wheezing Gastrointestinal: reports: Nausea. denies: Abdominal Pain, Constipation, Diarrhea, Melena, Rectal Bleeding, Vomiting Musculoskeletal: reports: Back Pain Neurological: denies: Dizziness, Headache, Seizure, Syncope Labs: CBC, BMP 08/14/16 06:00 08/14/16 06:00 Problem List - Problems (1) Diabetes mellitus Code(s): E11.9 - TYPE 2 DIABETES MELLITUS WITHOUT COMPLICATIONS Qualifiers: Diabetes mellitus type: type 2 Diabetes mellitus complication status: with kidney complications Diabetes mellitus complication detail: with chronic kidney disease Diabetes mellitus exterminator helper insulin use: with fdc use Chronic kidney disease stage: stage 4 (severe) Qualified Code(s): E11.22 - Type 2 diabetes mellitus with diabetic chronic kidney disease ; N18.1 - Chronic kidney disease, stage 1; Z79.4 - snf (current) use of insulin (2) Sepsis Code(s): A41.9 - SEPSIS, UNSPECIFIED ORGANISM Qualifiers: Sepsis type: sepsis due to unspecified organism Qualified Code(s): A41.9 - Sepsis, unspecified organism (3) CKD (chronic kidney disease) Code(s): N18.9 - CHRONIC KIDNEY DISEASE, UNSPECIFIED Qualifiers: Chronic kidney disease stage: stage 3 (moderate) Qualified Code(s): N18.3 - Chronic kidney disease, stage 3 (moderate) (4) Acute and chronic respiratory failure with hypoxia Code(s): J96.21 - ACUTE AND CHRONIC RESPIRATORY FAILURE WITH HYPOXIA (5) Acute on chronic systolic and diastolic heart failure, NYHA class 4 Code(s): I50.43 - ACUTE ON CHRONIC COMBINED SYSTOLIC AND DIASTOLIC HRT FAIL (6) COPD (chronic obstructive pulmonary disease) Code(s): J44.9 - CHRONIC OBSTRUCTIVE PULMONARY DISEASE, UNSPECIFIED Qualifiers : COPD type: chronic bronchitis (7) Deep venous thrombosis Code(s): I82.409 - ACUTE EMBOLISM AND THOMBOS UNSP DEEP VN UNSP LOWER EXTREMITY Qualifiers: DVT location: lower extremity Affected thrombotic vein of extremity: unspecified vein of extremity Chronicity: acute Laterality: right Qualified Code(s): I82.401 - Acute embolism and thrombosis of unspecified deep veins of right lower extremity (8) Dyspnea on exertion Code(s): R06.09 - OTHER FORMS OF DYSPNEA (9) Elevated troponin I level Code(s): R79.89 - OTHER SPECIFIED ABNORMAL FINDINGS OF BLOOD CHEMISTRY (10) Hx of CABG Code(s): Z95.1 - PRESENCE OF AORTOCORONARY BYPASS GRAFT (11) Ischemic cardiomyopathy Code(s): I25.5 - ISCHEMIC CARDIOMYOPATHY (12) Lung nodule Code(s): R91.1 - SOLITARY PULMONARY NODULE (13) Morbid obesity Code(s): E66.01 - MORBID (SEVERE) OBESITY DUE TO EXCESS CALORIES Qualifiers: Obesity type: due to excess calories Qualified Code(s): E66.01 - Morbid (severe) obesity due to excess calories (14) Severe left ventricular systolic dysfunction Code(s): I51.9 - HEART DISEASE, UNSPECIFIED (15) Single implantable cardioverter-defibrillator (ICD) in situ Code(s): Z95.810 - PRESENCE OF AUTOMATIC (IMPLANTABLE) CARDIAC DEFIBRILLATOR (16) ASHD (arteriosclerotic heart disease) Code(s): I25.10 - ATHSCL HEART DISEASE OF [place] CORONARY ARTERY W/O ANG PCTRS Assessment/Plan 1. LV systolic failure with chronic class II-III NYHA classification heart failure (ischemic dilated cardiomyopathy with pulmonary HTN) 2. Urosepsis with aleman-sensitive E. coli bacteremia, history of MRSA, recurrent fever 3. CAD post CABG, angina pectoris 4. History of cardiac arrest post ICD 5. Persistent atrial fibrillation on NOAC 6. HTN 7. DM 8. Hypercholesterolemia 9. History of CVA 10. Chronic hypoxic respiratory failure with home O2 dependent COPD 11. OSAS noncompliant with CPAP 12. Acute on CKD 13. History of RLE DVT 14. Morbid obesity PLAN: 1. Continue Demadex with close monitoring of renal function 2. Continue Carvedilol 3. Continue Cozaar with close monitoring of renal function 4. Continue Atorvastatin 5. Continue Xarelto Further plans are to follow Leonel Hawley MD
[2016-08-14] MEDS ORDERED: INSULIN DETEMIR 100 UNITS/ML MDV SQ SCH (12:50)
--- NOTE | 2016-08-14 15:12 | PN ---
Progress Note, Physician History of Present Illness: Patient is a 61yo M with hx of CHF (class III-IV), poorly controlled DM2, ischemic cardiomyopathy. s/p CABG, ICD, COPD who presented to the ER with fever , chills, SOB. He was admitted for sepsis and acute CHF exacerbation Today patient is feeling better than yesterday, less sweating, less shivering. No fever, no chills, no chest pain, no SOB. Patient does complain of burning/ itching pain in feet bilaterally. Nurse reports no acute events overnight - Current Medication List Current Medications: Active Medications Acetaminophen (Tylenol -) 650 mg PO Q6H PRN PRN Reason: FEVER Last Admin: 08/14/16 02:14 Dose: 650 mg Albuterol/Ipratropium (Duoneb -) 1 amp NEB DAILY PRN PRN Reason: SHORT OF BREATH/WHEEZING Allopurinol (Zyloprim -) 100 mg PO DAILY [facility] Last Admin: 08/14/16 10:13 Dose: 100 mg Atorvastatin Calcium (Lipitor -) 40 mg PO HS [facility] Last Admin: 08/13/16 22:26 Dose: 40 mg Carvedilol (Coreg -) 6.25 mg PO BID [facility] Last Admin: 08/14/16 10:10 Dose: 6.25 mg Chlorhexidine Gluconate (Hibiclens For Decolonization -) 1 applic TP HS [facility] Last Admin: 08/13/16 22:25 Dose: Not Given Cholecalciferol (Vitamin D3 -) 400 unit PO DAILY [facility] Last Admin: 08/14/16 10:13 Dose: 400 unit Fluoxetine HCl (Prozac -) 40 mg PO HS [facility] Last Admin: 08/13/16 22:26 Dose: 40 mg Meropenem 1 gm/ Dextrose 100 mls @ 100 mls/hr IVPB Q8H-IV [facility] PRN Reason: Protocol Last Admin: 08/14/16 10:47 Dose: 100 mls/hr Insulin Aspart (Novolog Vial Sliding Scale -) 1 vial SQ TIDAC [facility] PRN Reason: Protocol Last Admin: 08/14/16 11:38 Dose: 9 units Insulin Detemir (Levemir Vial) 60 units SQ AM [facility] Lorazepam (Ativan -) 0.5 mg PO HS [facility] Last Admin: 08/13/16 22:25 Dose: 0.5 mg Losartan Potassium (Cozaar -) 25 mg PO DAILY [facility] Last Admin: 08/14/16 10:10 Dose: 25 mg Oxycodone HCl (Roxicodone -) 5 mg PO Q4H PRN PRN Reason: PAIN Last Admin: 08/14/16 02:24 Dose: 5 mg Potassium Chloride (Potassium Chloride Oral Liquid) 20 meq PO DAILY [facility] Last Admin: 08/14/16 10:12 Dose: 20 meq Ranitidine HCl (Zantac -) 150 mg PO AM [facility] Last Admin: 08/14/16 06:48 Dose: 150 mg Rivaroxaban (Xarelto -) 20 mg PO DAILY [facility] Last Admin: 08/14/16 10:13 Dose: 20 mg Senna/Docusate Sodium (Pericolace -) 2 tablet PO HS [facility] Last Admin: 08/13/16 22:26 Dose: 2 tablet Tamsulosin HCl (Flomax -) 0.4 mg PO DAILY@0830 [facility] Last Admin: 08/14/16 10:12 Dose: 0.4 mg Torsemide (Demadex -) 200 mg PO DAILY [facility] Last Admin: 08/14/16 10:12 Dose: 200 mg - Objective Vital Signs: Vital Signs Temperature 98.4 F 08/14/16 14:40 Pulse Rate 73 08/14/16 14:40 Respiratory Rate 16 08/14/16 14:40 Blood Pressure 99/51 08/14/16 14:40 O2 Sat by Pulse Oximetry (%) 97 08/14/16 09:00 Constitutional: Yes: No Distress, Anxious Eyes: Yes: EOM Intact HENT: Yes: Atraumatic, Normocephalic Neck: Yes: Supple, Trachea Midline. No: Lymphadenopathy Cardiovascular: Yes: Regular Rate and Rhythm, S1, S2. No: Gallop, Murmur, Rub, S3, S4 Respiratory: Yes: Regular, CTA Bilaterally. No: Rales, Rhonchi, SOB Gastrointestinal: Yes: Normal Bowel Sounds, Soft, Abdomen, Obese Musculoskeletal: Yes: Other (+1 pitting edema bilaterally with venous stasis changes bilaterally.) Extremities: Yes: Other (Patient has mildly erythematous, tender wound on L forearm) Peripheral Pulses WNL: Yes Neurological: Yes: WNL, Alert, Oriented, Cran Nerves II-XII Intact, Other (Loss of vibratory sensation bilaterally). No: Confusion ...Motor Strength: WNL Labs: CBC, BMP 08/14/16 06:00 08/14/16 06:00 INR, PTT INR 1.62 (0.82-1.09) H 08/08/16 21:35 - ....Imaging Cat Scan: Pending Ultrasound: Pending Problem List - Problems (1) Sepsis Code(s): A41.9 - SEPSIS, UNSPECIFIED ORGANISM Qualifiers: Sepsis type: sepsis due to unspecified organism Qualified Code(s): A41.9 - Sepsis, unspecified organism
--- NOTE | 2016-08-14 15:27 | PN ---
Addendum entered and electronically signed by Juan José Carbajal RES 08/14/16 18: 31: Spoke with patient's over the phone. Patient initially discussed with MD that he was unable to understand the medical terminology and why he is getting imaging. MD gave pager number so that can get in contact with MD. Informed that patient initially had UTI that traveled into the blood and was treated with antibiotics. [place] urine culture was negative. Patient then spiked a fever and repeat urine culture was positive. Patient is now on stronger antibiotics and sent to Radiology to r/o renal abscess. Conversation was about 5 minutes. expressed understanding. Original Note: Physical Exam: SUBJECTIVE: Patient was seen and examined at bedside. Reports he is feeling better than yesterday, less sweatin, less shivering. No fever, chills, SOB, no chest pain. Patient complains about intermittent burning/itching sensation in feet bilaterally. No localized tenderness, no pain. The patient has used creams for it in the past with no improvement. No acute nursing events overnight. OBJECTIVE: Vital Signs Period Temp Pulse Resp BP Sys/Mcconnell Pulse Ox Last 24 Hr 98.1 F-102.8 F 73-99 16-20 99-149/51-76 96-97 GENERAL: The patient is awake, alert, and fully oriented, in no acute distress. HEAD: Normal with no signs of trauma. EYES: PERRL, extraocular movements intact, conjunctiva clear. No ptosis. ENT: Ears normal, nares patent, oropharynx clear without exudates, moist mucous membranes. NECK: Trachea midline, full range of motion, supple. LUNGS: Breath sounds equal, clear to auscultation bilaterally, no wheezes, no crackles, no accessory muscle use. HEART: Regular rate and rhythm, S1, S2 without murmur, rub or gallop. ABDOMEN: Soft, nontender, nondistended, normoactive bowel sounds, no guarding, no rebound, no hepatosplenomegaly, no masses. UPPER EXTREMITIES: L forearm wound, erythematous, non-purulent LOWER EXTREMITIES: 1+ pitting edema bilaterally with venous stasis changes. Diabetic toe ulcers present on both feet NEUROLOGICAL: Cranial nerves II through XII grossly intact. Normal speech, gait not observed. Decreased vibratory and proprioception in bilateral lowr extremities Laboratory Results - last 24 hr 08/13/16 08/14/16 08/14/16 16:36 06:00 06:00 WBC 10.4 H RBC 3.58 L Hgb 11.0 L Hct 32.6 L MCV 91.0 MCHC 33.9 RDW 17.9 H Plt Count 157 MPV 9.0 Neutrophils % 75.0 D Lymphocytes % 9.0 D Monocytes % 13.0 H D Eosinophils % 1.0 D Band Neutrophils 1.0 D Myelocytes 1 Differential Comment Manual diff done Platelet Estimate Adequate Sodium 137 Potassium 3.5 Chloride 96 L Carbon Dioxide 31 Anion Gap 10 BUN 37 H Creatinine 1.5 H POC Glucometer 200 Random Glucose 190 H Calcium 8.5 08/14/16 08/14/16 06:43 11:34 WBC RBC Hgb Hct MCV MCHC RDW Plt Count MPV Neutrophils % Lymphocytes % Monocytes % Eosinophils % Band Neutrophils Myelocytes Differential Comment Platelet Estimate Sodium Potassium Chloride Carbon Dioxide Anion Gap BUN Creatinine POC Glucometer 223 343 Random Glucose Calcium Active Medications Generic Name Dose Route Start Last Admin Trade Name Freq PRN Reason Stop Dose Admin Acetaminophen 650 mg 08/13/16 18:29 08/14/16 02:14 Tylenol - PO 650 mg Q6H PRN Administration FEVER Albuterol/Ipratropium 1 amp 08/10/16 23:52 Duoneb - NEB DAILY PRN SHORT OF BREATH/WHEEZING Allopurinol 100 mg 08/11/16 10:00 08/14/16 10:13 Zyloprim - PO 100 mg DAILY MAGEN Administration Atorvastatin Calcium 40 mg 08/11/16 22:00 08/13/16 22:26 Lipitor - PO 40 mg HS AMGEN Administration Carvedilol 6.25 mg 08/11/16 10:00 08/14/16 10:10 Coreg - PO 6.25 mg BID MAGEN Administration Chlorhexidine Gluconate 1 applic 08/11/16 22:00 08/13/16 22:25 Hibiclens For Decolonization - TP Not Given HS [facility] Cholecalciferol 400 unit 08/11/16 10:00 08/14/16 10:13 Vitamin D3 - PO 400 unit DAILY MAGEN Administration Fluoxetine HCl 40 mg 08/11/16 22:00 08/13/16 22:26 Prozac - PO 40 mg HS MAGEN Administration Meropenem 1 gm/ Dextrose 100 mls @ 100 mls/hr 08/14/16 10:00 08/14/16 10:47 IVPB 100 mls/hr Q8H-IV MAGEN Administration Protocol Insulin Aspart 1 vial 08/11/16 16:30 08/14/16 11:38 Novolog Vial Sliding Scale - SQ 9 units TIDAC MAGEN Administration Protocol Insulin Detemir 60 units 08/14/16 12:50 Levemir Vial SQ AM MAGEN Lorazepam 0.5 mg 08/11/16 22:00 08/13/16 22:25 Ativan - PO 0.5 mg HS MAGEN Administration Losartan Potassium 25 mg 08/11/16 12:30 08/14/16 10:10 Cozaar - PO 25 mg DAILY MAGEN Administration Oxycodone HCl 5 mg 08/14/16 02:16 08/14/16 02:24 Roxicodone - PO 5 mg Q4H PRN Administration PAIN Potassium Chloride 20 meq 08/13/16 10:00 08/14/16 10:12 Potassium Chloride Oral Liquid PO 20 meq DAILY MAGEN Administration Ranitidine HCl 150 mg 08/11/16 07:00 08/14/16 06:48 Zantac - PO 150 mg AM MAGEN Administration Rivaroxaban 20 mg 08/11/16 10:00 08/14/16 10:13 Xarelto - PO 20 mg DAILY MAGEN Administration Senna/Docusate Sodium 2 tablet 08/11/16 22:00 08/13/16 22:26 Pericolace - PO 2 tablet HS MAGEN Administration Tamsulosin HCl 0.4 mg 08/11/16 08:30 08/14/16 10:12 Flomax - PO 0.4 mg DAILY@0830 MAGEN Administration Torsemide 200 mg 08/11/16 10:00 08/14/16 10:12 Demadex - PO 200 mg DAILY MAGEN Administration ASSESSMENT/PLAN: 61 y/o male with history of systolic CHF, DM, Ischemic CM, Afib/DVT, CKD who presented with sepsis and SOB found to be septic 2/2 UTI 1. Sepsis secondary to UTI - Urine Culture on 08/08 grew E.Coli, and after subsequent treatment Culture on showed no growth - New Urine Culture on 08/13 grew Non lactose fermenting GNB (possible Salmonella , Proteus, Yersinia, or Pseudomonas) - Patient was initially on Cefazolin x3 days, Antibiotic switched now to Meropenem 1g IV Q8 to cover possible Pseudomonas - New culture growth could be due to developing antibiotic resistance vs pyelonephritis/renal abscess. - As per Radiology recommendations, patient is scheduled for Renal U/S and CT scan. Unable to do CT scan with IV contrast due to Renal function - Will repeat Blood cultures tomorrow AM 2. Poorly controlled Diabetes Mellitus - Patient's AM glucose yesterday was 223, and later 343. - Switched patient from Levemir 50 QD --> 60 QD (home dose is 70QD) - Continue Sliding scale insulin - Patient now complains of unbearable burning/itching sensation in lower extremities, possibly neuropathic, start Gabapentin 100mg QD as DM is poorly controlled 3. Acute Systolic CHF - Patient clinically looks euvolemic - Continue torsamide 200mg PO QD and carvedilol 6.25 mg PO BID - Patient is not on Aspirin because he is on Xarelto 4. H/o Atrial Fibrillation - Continue Xarelto 20mg PO QD 5. CKD - Patient's Baseline Cr is 1.7 - 2.0 - Current Cr is 1.5. 6. FEN: - Not on IV fluids. - Electrolytes to be repeated tomorrow - Diabetic diet 7. Prophylaxis - For DVT: Already on Xarelto - For GI: Not indicated 8. Code Status - Full Code Visit type - Emergency Visit Emergency Visit: No - New Patient This patient is new to me today: No - Critical Care Critical Care patient: No - Discharge Referral Referred to [facility] No
[2016-08-14] MEDS: GABAPENTIN 100 MG CAPSULE (FP) PO SCH (17:22)
--- NOTE | 2016-08-14 19:21 | PN ---
Teaching Attending Note Name of Resident: Melinda Carrillo ATTENDING PHYSICIAN STATEMENT I saw and evaluated the patient. I reviewed the resident's note and discussed the case with the resident. I agree with the resident's findings and plan as documented. SUBJECTIVE: cont to have L shoulder pain. OBJECTIVE: NAD, AAOx3 CV: RRR, no MRG Lungs: CTAB Ext: trace edema and erythema on LE , scattered scabs on legs and feet . L arm with small wound ( 2 cm ) , with minimal slough weakness in L shoulder due to pain . no erythema over L shoulder ASSESSMENT AND PLAN: 61 y/o man with h/o ICM , CKD , S CHF , CABG, s/p cardiac arrest , R LE DVT , and DM who presented with SOB and not feeling well and was found to have sepsis 2/2 UTI and bacteremia 1- Sepsis 2/2 UTI and bacteremia : repeat blood cx with non lactose fermenting bacilli . source is not known . - CT of abd /pelvis with no abscess - US of kdneys, has no abscess - CT of L shoulder with large joint effusion ,..? possible seeding of bacteria in shoulder . - CT also showed L lung infiltrates. .. ? PNA . will be covered by meropenem - broad abx : meropenem - will speak to Dr. Cisneros for L shoulder tap to r/o spetic joint 2- Poorly controlled DM , - increas levemir to 60 daily . - cont SSI 3- Acute S CHF : euvolemic now - cont demadex at home dose . - cont coreg - Off ASA while on xarelto. dose is correct for his renal function ( d/w pharmacysit ) 4- h/o Afib : cont xarelto 5- CKD : base line Cr 1.7-2. monitor
[2016-08-14] MEDS: LORazepam 0.5 MG TABLET PO SCH (22:14)
[2016-08-14] MEDS: FLUoxetine HCL 20 MG CAPSULE (FP) PO SCH (22:14)
[2016-08-14] MEDS: SENNOSIDES/DOCUSATE COMBO (SENNA PLUS) TABLET (UD) PO SCH (22:14)
[2016-08-14] MEDS: ATORVASTATIN CA 40 MG TABLET (FP) PO SCH (22:15)
[2016-08-14] MEDS: CHLORHEXIDINE GLUCONATE 4% CLEANSER FOR DECOLONIZATION TP SCH (22:15)
[2016-08-15] MEDS: MEROPENEM 1 GM in DEXTROSE 5%-WATER - 100 ML IVPB SCH ×3 (02:13→17:19)
[2016-08-15] MEDS ORDERED: PT OWN MED DRAWER 7, Y5N ONE ×3 (02:48→17:15)
[2016-08-15] MEDS: INSULIN SLIDING SCALE (NOVOLOG) 1 VIAL SQ SCH ×3 (06:17→16:50)
[2016-08-15] MEDS: RANITIDINE HCL 150 MG TABLET (FP) PO SCH (06:19)
[2016-08-15] MEDS: oxyCODONE HCL 5 MG TABLET PO PRN ×2 (06:19→22:36)
[2016-08-15 08:15] LABS: MCH 30.6 pg (25.7-33.7); MCHC 33.6 g/dl (32.0-35.9); MEAN CELL VOLUME 91.1 fl (80-96); MEAN PLT VOLUME 9.4 fl (7.5-11.1); PLATELET COUNT 156 K/MM3 (134-434); RDW 17.5 % (11.9-15.9); WHITE BLOOD COUNT 8.6 K/mm3 (4.0-10.0)
--- NOTE | 2016-08-15 08:17 | PN ---
Progress Note, Physician Chief Complaint: ID Meropenem for gram negative feliberto bacteremia Asymptomatic His temps seem down now - Current Medication List Current Medications: Active Medications Acetaminophen (Tylenol -) 650 mg PO Q6H PRN PRN Reason: FEVER Last Admin: 08/14/16 02:14 Dose: 650 mg Albuterol/Ipratropium (Duoneb -) 1 amp NEB DAILY PRN PRN Reason: SHORT OF BREATH/WHEEZING Allopurinol (Zyloprim -) 100 mg PO DAILY [facility] Last Admin: 08/14/16 10:13 Dose: 100 mg Atorvastatin Calcium (Lipitor -) 40 mg PO HS [facility] Last Admin: 08/14/16 22:15 Dose: 40 mg Carvedilol (Coreg -) 6.25 mg PO BID [facility] Last Admin: 08/14/16 22:14 Dose: 6.25 mg Chlorhexidine Gluconate (Hibiclens For Decolonization -) 1 applic TP HS [facility] Last Admin: 08/14/16 22:15 Dose: Not Given Cholecalciferol (Vitamin D3 -) 400 unit PO DAILY [facility] Last Admin: 08/14/16 10:13 Dose: 400 unit Fluoxetine HCl (Prozac -) 40 mg PO HS [facility] Last Admin: 08/14/16 22:14 Dose: 40 mg Gabapentin (Neurontin -) 100 mg PO DAILY [facility] Last Admin: 08/14/16 17:22 Dose: 100 mg Meropenem 1 gm/ Dextrose 100 mls @ 100 mls/hr IVPB Q8H-IV MAGEN PRN Reason: Protocol Last Admin: 08/15/16 02:13 Dose: 100 mls/hr Insulin Aspart (Novolog Vial Sliding Scale -) 1 vial SQ TIDAC MAGEN PRN Reason: Protocol Last Admin: 08/15/16 06:17 Dose: 5 units Insulin Detemir (Levemir Vial) 60 units SQ AM [facility] Last Admin: 08/15/16 06:11 Dose: 60 units Lorazepam (Ativan -) 0.5 mg PO HS [facility] Last Admin: 08/14/16 22:14 Dose: 0.5 mg Losartan Potassium (Cozaar -) 25 mg PO DAILY [facility] Last Admin: 08/14/16 10:10 Dose: 25 mg Oxycodone HCl (Roxicodone -) 5 mg PO Q4H PRN PRN Reason: PAIN Last Admin: 08/15/16 06:19 Dose: 5 mg Potassium Chloride (Potassium Chloride Oral Liquid) 20 meq PO DAILY [facility] Last Admin: 08/14/16 10:12 Dose: 20 meq Ranitidine HCl (Zantac -) 150 mg PO AM [facility] Last Admin: 08/15/16 06:19 Dose: 150 mg Rivaroxaban (Xarelto -) 20 mg PO DAILY [facility] Last Admin: 08/14/16 10:13 Dose: 20 mg Senna/Docusate Sodium (Pericolace -) 2 tablet PO HS [facility] Last Admin: 08/14/16 22:14 Dose: 2 tablet Tamsulosin HCl (Flomax -) 0.4 mg PO DAILY@0830 [facility] Last Admin: 08/14/16 10:12 Dose: 0.4 mg Torsemide (Demadex -) 200 mg PO DAILY [facility] Last Admin: 08/14/16 10:12 Dose: 200 mg - Objective Vital Signs: Vital Signs Temperature 99.1 F 08/15/16 05:54 Pulse Rate 69 08/15/16 05:54 Respiratory Rate 20 08/15/16 05:54 Blood Pressure 144/67 08/15/16 05:54 O2 Sat by Pulse Oximetry (%) 97 08/14/16 21:00 Constitutional: Yes: Well Nourished, No Distress Eyes: Yes: WNL, Conjunctiva Clear HENT: Yes: WNL, Atraumatic Neck: Yes: WNL, Supple Cardiovascular: Yes: Regular Rate and Rhythm, S1, S2. No: Murmur Respiratory: Yes: WNL, CTA Bilaterally. No: Poor Air Entry, Rales, Rhonchi Gastrointestinal: Yes: WNL, Normal Bowel Sounds, Soft. No: Tenderness, Tenderness, Epigastrium Extremities: Yes: Other (eschars LE minimal swelling dry skin) Labs: INR, PTT INR 1.62 (0.82-1.09) H 08/08/16 21:35 Problem List - Problems (1) Diabetes mellitus Code(s): E11.9 - TYPE 2 DIABETES MELLITUS WITHOUT COMPLICATIONS Qualifiers: Diabetes mellitus type: type 2 Diabetes mellitus complication status: with kidney complications Diabetes mellitus complication detail: with chronic kidney disease Diabetes mellitus terminal worker insulin use: with terminal worker use Chronic kidney disease stage: stage 4 (severe) Qualified Code(s): E11.22 - Type 2 diabetes mellitus with diabetic chronic kidney disease ; N18.1 - Chronic kidney disease, stage 1; Z79.4 - assisted (current) use of insulin (2) Sepsis Code(s): A41.9 - SEPSIS, UNSPECIFIED ORGANISM Qualifiers: Sepsis type: sepsis due to unspecified organism Qualified Code(s): A41.9 - Sepsis, unspecified organism (3) UTI (urinary tract infection) Code(s): N39.0 - URINARY TRACT INFECTION, SITE NOT SPECIFIED Qualifiers: Urinary tract infection type: site unspecified Hematuria presence: without hematuria Qualified Code(s): N39.0 - Urinary tract infection, site not specified (4) E coli bacteremia Code(s): R78.81 - BACTEREMIA Assessment/Plan Microbiology 08/13/16 08:00 Blood - Peripheral Venous Blood Culture - Preliminary Non Lactose Fermenting Gnb 08/13/16 08:00 Blood - Peripheral Venous Blood Culture - Preliminary Non Lactose Fermenting Gnb Laboratory Tests 08/14/16 08/14/16 08/15/16 06:00 06:00 06:10 WBC 10.4 H Hgb 11.0 L Plt Count 157 BUN 37 H Pending Creatinine 1.5 H Pending 08/15/16 06:10 WBC Pending Hgb Pending Plt Count Pending BUN Creatinine Assessment New onset of GNR bacteremia Source unknown ( ? E Coli ) pansensitive ? Recurrent E Coli bacteremia UTI August 07 Cirrhosis ? Hep B related DM CKD ICD device Plan If this is the same organism would order Indium scanning for tomorrow Suspect pansensitive organism Mary TREJO
[2016-08-15] MEDS: TAMSULOSIN HCL 0.4 MG CAP.ER.24H (FP) PO SCH (08:24)
[2016-08-15 08:37] LABS: ANION GAP 11 (8-16); CALCIUM 8.4 mg/dL (8.5-10.1); CO2 30 mmol/L (21-32); GLUCOSE,RANDOM 195 mg/dL (74-106)
[2016-08-15 08:39] LABS: C-REACTIVE PROTEIN 11.9 MG/DL (0.00-0.3); CREATININE 1.4 mg/dL (0.7-1.3)
[2016-08-15] MEDS: TORSEMIDE 100 MG TABLET PO SCH (09:09)
[2016-08-15] MEDS: LOSARTAN POTASSIUM 25 MG TABLET PO SCH (09:09)
[2016-08-15] MEDS: CARVEDILOL 6.25 MG TABLET (FP) PO SCH ×2 (09:09→22:01)
[2016-08-15] MEDS: CHOLECALCIFEROL (VITAMIN D3) 400 UNIT TABLET (FP) PO SCH (09:10)
[2016-08-15] MEDS: GABAPENTIN 100 MG CAPSULE (FP) PO SCH (09:10)
[2016-08-15] MEDS: POTASSIUM CHLORIDE ORAL LIQUID 20 MEQ/15 ML PO SCH (09:10)
[2016-08-15] MEDS: ALLOPURINOL 100 MG TABLET (FP) PO SCH (09:11)
[2016-08-15] MEDS: RIVAROXABAN 20 MG TABLET PO SCH (09:11)
--- NOTE | 2016-08-15 09:38 | PN ---
Progress Note (short form) - Note Progress Note: PULMONARY febrile/oob to chair Gen: Awake and alert, NAD Heart: RRR Lung: distant but clear breath sounds Abd: soft, nontender Ext: chronic changes lower ext/ left upper extremity eschar with surrounding edema left shoulder tenderness to palpation labs/meds/notes/imaging/micro noted repeat bld cultures noted ct left shoulder noted ASSESSMENT AND PLAN: UTI ECOLI BACTEREMIA ?septic arthritis left shoulder vs osteo Sepsis LV Systolic Dysfunction Pulmonary HTN CAD s/p CABG Atrial Fibrillation COPD Chronic Hypoxic Respiratory Failure Acute on CKD - left shoulder aspiration of fluid - ortho eval - ABX per ID - rate controlled - continue anticoagulation - Demadex - PO as tolerated Mak AGUSTIN MD
--- NOTE | 2016-08-15 11:55 | PN ---
Progress Note (short form) - Note Progress Note: Subjective:cont to have pain in L shoulder . has no ABd pain. no diarrhea Objective: Vital Signs: Last Vital Signs Temp Pulse Resp BP Pulse Ox 98.1 F 75 18 119/63 100 08/15/16 08:10 08/15/16 08:10 08/15/16 08:10 08/15/16 08:10 08/15/16 09:00 Laboratory Results - last 24 hr 08/14/16 08/14/16 08/15/16 11:34 16:42 06:10 WBC RBC Hgb Hct MCV MCHC RDW Plt Count MPV ESR Sodium 138 Potassium 3.4 L Chloride 97 L Carbon Dioxide 30 Anion Gap 11 BUN 36 H Creatinine 1.4 H POC Glucometer 343 229 Random Glucose 195 H Calcium 8.4 L C-Reactive Protein 11.9 H D 08/15/16 08/15/16 08/15/16 06:10 06:10 06:16 WBC 8.6 RBC 3.50 L Hgb 10.7 L Hct 31.8 L MCV 91.1 MCHC 33.6 RDW 17.5 H Plt Count 156 MPV 9.4 ESR 105 H Sodium Potassium Chloride Carbon Dioxide Anion Gap BUN Creatinine POC Glucometer 203 Random Glucose Calcium C-Reactive Protein Microbiology 08/13/16 08:00 Blood Culture - Final Blood - Peripheral Venous Escherichia Coli 08/13/16 08:00 Blood Culture - Final Blood - Peripheral Venous Escherichia Coli 08/10/16 05:50 Blood Culture - Final Blood - Peripheral Venous NO GROWTH AFTER 5 DAYS INCUBATION 08/10/16 05:50 Blood Culture - Final Blood - Peripheral Venous NO GROWTH AFTER 5 DAYS INCUBATION Physical Exam: NAD, AAOx3 CV: RRR, no MRG Lungs: CTAB Ext: trace edema and erythema on LE, scattered scabs on legs and feet. L arm with small wound ( 2 cm ) , with minimal slough weakness in L shoulder abduction due to pain . no erythema or edema over L shoulder ASSESSMENT AND PLAN: 61 y/o man with h/o ICM , CKD , S CHF , CABG, s/p cardiac arrest , R LE DVT , and DM who presented with SOB and not feeling well and was found to have sepsis 2/2 UTI and bacteremia 1- Sepsis 2/2 UTI and bacteremia :with recurrent bacteremia with the same organism source is not known . CT of abd /pelvis with no abscess , but L shoulder with large effusion which could be septic . lung has infiltrate - Spoke with Dr. Csineros last night for aspiration of L shoulder and eval for septic joint - check CT of chest to evaluate pocket of Pacemaker , R/O infection and evaluate pulm paranchyme - cont meropenem day 2 - ? possible induium scan 2- Poorly controlled DM , - increas levemir to 65 daily . - cont SSI 3- Acute S CHF : euvolemic now - cont demadex at home dose . - cont coreg - Off ASA while on xarelto. 4- h/o Afib : cont xarelto 5- CKD : base line Cr 1.7-2. monitor HLOC Visit type - Emergency Visit Emergency Visit: Yes ED Registration Date: 08/08/16 Care time: The patient presented to the Emergency Department on the above date and was hospitalized for further evaluation of their emergent condition. - New Patient This patient is new to me today: No - Critical Care Critical Care patient: No
[2016-08-15] MEDS ORDERED: POTASSIUM CHLORIDE TABS 20 MEQ TABLET.ER (FP) PO ONE (12:15)
--- NOTE | 2016-08-15 12:43 | PN ---
Progress Note, Physician History of Present Illness: Resting comfortably in chair, not dyspneic, afebrile. - Current Medication List Current Medications: Active Medications Acetaminophen (Tylenol -) 650 mg PO Q6H PRN PRN Reason: FEVER Last Admin: 08/14/16 02:14 Dose: 650 mg Albuterol/Ipratropium (Duoneb -) 1 amp NEB DAILY PRN PRN Reason: SHORT OF BREATH/WHEEZING Allopurinol (Zyloprim -) 100 mg PO DAILY [facility] Last Admin: 08/15/16 09:11 Dose: 100 mg Atorvastatin Calcium (Lipitor -) 40 mg PO HS [facility] Last Admin: 08/14/16 22:15 Dose: 40 mg Carvedilol (Coreg -) 6.25 mg PO BID [facility] Last Admin: 08/15/16 09:09 Dose: 6.25 mg Chlorhexidine Gluconate (Hibiclens For Decolonization -) 1 applic TP HS [facility] Last Admin: 08/14/16 22:15 Dose: Not Given Cholecalciferol (Vitamin D3 -) 400 unit PO DAILY [facility] Last Admin: 08/15/16 09:10 Dose: 400 unit Fluoxetine HCl (Prozac -) 40 mg PO HS [facility] Last Admin: 08/14/16 22:14 Dose: 40 mg Gabapentin (Neurontin -) 100 mg PO DAILY [facility] Last Admin: 08/15/16 09:10 Dose: 100 mg Meropenem 1 gm/ Dextrose 100 mls @ 100 mls/hr IVPB Q8H-IV MAGEN PRN Reason: Protocol Last Admin: 08/15/16 10:17 Dose: 100 mls/hr Insulin Aspart (Novolog Vial Sliding Scale -) 1 vial SQ TIDAC [facility] PRN Reason: Protocol Last Admin: 08/15/16 11:27 Dose: 9 units Insulin Detemir (Levemir Vial) 65 units SQ AM [facility] Lorazepam (Ativan -) 0.5 mg PO HS [facility] Last Admin: 08/14/16 22:14 Dose: 0.5 mg Losartan Potassium (Cozaar -) 25 mg PO DAILY [facility] Last Admin: 08/15/16 09:09 Dose: 25 mg Oxycodone HCl (Roxicodone -) 5 mg PO Q4H PRN PRN Reason: PAIN Last Admin: 08/15/16 06:19 Dose: 5 mg Potassium Chloride (Potassium Chloride Oral Liquid) 20 meq PO DAILY [facility] Last Admin: 08/15/16 09:10 Dose: 20 meq Ranitidine HCl (Zantac -) 150 mg PO AM [facility] Last Admin: 08/15/16 06:19 Dose: 150 mg Rivaroxaban (Xarelto -) 20 mg PO DAILY [facility] Last Admin: 08/15/16 09:11 Dose: 20 mg Senna/Docusate Sodium (Pericolace -) 2 tablet PO HS [facility] Last Admin: 08/14/16 22:14 Dose: 2 tablet Tamsulosin HCl (Flomax -) 0.4 mg PO DAILY@0830 [facility] Last Admin: 08/15/16 08:24 Dose: 0.4 mg Torsemide (Demadex -) 200 mg PO DAILY [facility] Last Admin: 08/15/16 09:09 Dose: 200 mg - Objective Vital Signs: Vital Signs Temperature 98.1 F 08/15/16 08:10 Pulse Rate 75 08/15/16 08:10 Respiratory Rate 18 08/15/16 08:10 Blood Pressure 119/63 08/15/16 08:10 O2 Sat by Pulse Oximetry (%) 100 08/15/16 09:00 Constitutional: Yes: No Distress, Calm Neck: Yes: Supple Cardiovascular: Yes: Regular Rate and Rhythm Respiratory: Yes: Regular, Diminished Gastrointestinal: Yes: Normal Bowel Sounds, Soft Edema: No Labs: CBC, BMP 08/15/16 06:10 08/15/16 06:10 INR, PTT INR 1.62 (0.82-1.09) H 08/08/16 21:35 Problem List - Problems (1) Diabetes mellitus Code(s): E11.9 - TYPE 2 DIABETES MELLITUS WITHOUT COMPLICATIONS Qualifiers: Diabetes mellitus type: type 2 Diabetes mellitus complication status: with kidney complications Diabetes mellitus complication detail: with chronic kidney disease Diabetes mellitus custodial insulin use: with termite control technician use Chronic kidney disease stage: stage 4 (severe) Qualified Code(s): E11.22 - Type 2 diabetes mellitus with diabetic chronic kidney disease ; N18.1 - Chronic kidney disease, stage 1; Z79.4 - watermelon inspector (current) use of insulin (2) Sepsis Code(s): A41.9 - SEPSIS, UNSPECIFIED ORGANISM Qualifiers: Sepsis type: sepsis due to unspecified organism Qualified Code(s): A41.9 - Sepsis, unspecified organism (3) UTI (urinary tract infection) Code(s): N39.0 - URINARY TRACT INFECTION, SITE NOT SPECIFIED Qualifiers: Urinary tract infection type: site unspecified Hematuria presence: without hematuria Qualified Code(s): N39.0 - Urinary tract infection, site not specified (4) Acute on chronic systolic and diastolic heart failure, NYHA class 4 Code(s): I50.43 - ACUTE ON CHRONIC COMBINED SYSTOLIC AND DIASTOLIC HRT FAIL (5) COPD (chronic obstructive pulmonary disease) Code(s): J44.9 - CHRONIC OBSTRUCTIVE PULMONARY DISEASE, UNSPECIFIED Qualifiers : COPD type: chronic bronchitis (6) DVT prophylaxis Code(s): [id number] - (7) Hx of CABG Code(s): Z95.1 - PRESENCE OF AORTOCORONARY BYPASS GRAFT (8) Ischemic cardiomyopathy Code(s): I25.5 - ISCHEMIC CARDIOMYOPATHY (9) Morbid obesity Code(s): E66.01 - MORBID (SEVERE) OBESITY DUE TO EXCESS CALORIES Qualifiers: Obesity type: due to excess calories Qualified Code(s): E66.01 - Morbid (severe) obesity due to excess calories (10) Poor compliance Code(s): Z91.19 - PATIENT'S NONCOMPLIANCE W OTH MEDICAL TREATMENT AND REGIMEN (11) S/P CABG (coronary artery bypass graft) Code(s): Z95.1 - PRESENCE OF AORTOCORONARY BYPASS GRAFT (12) Severe left ventricular systolic dysfunction Code(s): I51.9 - HEART DISEASE, UNSPECIFIED (13) Single implantable cardioverter-defibrillator (ICD) in situ Code(s): Z95.810 - PRESENCE OF AUTOMATIC (IMPLANTABLE) CARDIAC DEFIBRILLATOR (14) Tobacco abuse Code(s): Z72.0 - TOBACCO USE (15) ASHD (arteriosclerotic heart disease) Code(s): I25.10 - ATHSCL HEART DISEASE OF [place] CORONARY ARTERY W/O ANG PCTRS (16) Diabetes mellitus, insulin dependent (IDDM), uncontrolled Code(s): E10.65 - TYPE 1 DIABETES MELLITUS WITH HYPERGLYCEMIA Qualifiers: Diabetes mellitus complication detail: with polyneuropathy (17) Obstructive sleep apnea of adult Code(s): G47.33 - OBSTRUCTIVE SLEEP APNEA (ADULT) (PEDIATRIC) Assessment/Plan 08/14/2016 Echo: Severely decreased LV fxn, mod-severe decrease RV fxn, Tr-mild MR , tr TR 1. Chronic LV systolic failure with NYHA classification 3-4 heart failure with ischemic cardiomyopathy with pulm HTN 2. Urosepsis with aleman-sensitive E. coli bacteremia, h/o MRSA 3. CAD S/P CABG, angina pectoris 4. History of cardiac arrest S/P ICD 5. Chronic hypoxic respiratory failure with home O2 dependent COPD and pulmonary nodules 6. Type 2 diabetes mellitus 7. CVA 8. Acute on CKD resolved (now at baseline Cr 1.4) 9. Morbid obesity 10. History of RLE DVT 11. Persistent atrial fibrillation on NOAC 12. OSAS noncompliant with cpap PLAN: 1. Continue Demadex 200 qd with monitor diuretic response, renal fxn and electrolytes, replete K, Mg as you are 2. Complete Meropenum course per C&S 3. Continue Carvedilol 6.25 bid, Atorvastatin 40 qhs and Xarelto 20 qPM 4. Continue losartan 25 qd as renal fxn has stabilized 5. GI prophylaxis, cpap nightly 6. F/u chest CT results to elucidate pulm infiltrates
--- NOTE | 2016-08-15 15:36 | CONSULT ---
Consult - text type - Consultation Consultation Note: FULL CONSULT DICTATED SHOULDER ASPIRATED AND 10CC OF BLOOD TINGED CLEAR FLUID IMP: CHRONIC RC TEAR. NO EVIDENCE OF INFECTION PLAN: NO ORTHOPEDIC INTERVENTION AT THIS TIME
[2016-08-15 17:29] LABS: SYNOVIAL FLUID LYMPHOCYTES 5 %; SYNOVIAL FLUID MACROPHAGES 4 %; SYNOVIAL FLUID MONOCYTES 16 %; SYNOVIAL FLUID NEUTROPHILS 75 %
--- NOTE | 2016-08-15 18:11 | CONS ---
DATE OF CONSULTATION: 08/15/2016 The patient is a 61-year-old male with multiple medical problems including COPD, CHF, was admitted for sepsis. Initially he was treated for gram-negative rods, probable urosepsis, but despite being on antibiotics, he cleared his blood but then it reappeared in his blood. This necessitated a search for another source of his infection. Medical doctors revealed a painful and swollen left shoulder and called orthopedic consultation for evaluation. On physical exam, the patient has painless motion of his shoulder but passively can get up to 140 degrees, external rotation about 40 degrees actively is markedly weak. No erythema, mild effusion. Humeral head is palpated at superior, anteriorly in the shoulder. Full range of motion of elbow, wrist and fingers. Neurovascularly intact. X-rays and CAT scan revealed mild effusion and an anterior superior location of the humeral head consistent with a chronic rotator cuff. When asking the patient, the patient knows that he has a chronic rotator cuff tear from previous studies and has had this pain for quite some time. IMPRESSION: Chronic rotator cuff tear. It is low level that this is the source of his infection, but to rule it out, I did an aspiration of the shoulder joint and got back about 10 mL of clear blood-tinged fluid, sent this fluid for culture, sensitivity, cell count, and crystals. As far as the rotator cuff goes, this is a chronic condition which can be dealt with as an outpatient to get the source of his infection under control, and we can deal with the shoulder as an outpatient at a later date. JAMES BOYKIN M.D. [id number]
[2016-08-15] MEDS: ATORVASTATIN CA 40 MG TABLET (FP) PO SCH (22:00)
[2016-08-15] MEDS: LORazepam 0.5 MG TABLET PO SCH (22:01)
[2016-08-15] MEDS: CHLORHEXIDINE GLUCONATE 4% CLEANSER FOR DECOLONIZATION TP SCH (22:01)
[2016-08-15] MEDS: SENNOSIDES/DOCUSATE COMBO (SENNA PLUS) TABLET (UD) PO SCH (22:01)
[2016-08-15] MEDS: FLUoxetine HCL 20 MG CAPSULE (FP) PO SCH (22:02)
[2016-08-16] MEDS ORDERED: diphenhydrAMINE HCL 25 MG CAPSULE (FP) PO ONE ×2 (00:19→20:26)
[2016-08-16] MEDS: MEROPENEM 1 GM in DEXTROSE 5%-WATER - 100 ML IVPB SCH ×2 (01:04→11:23)
[2016-08-16] MEDS ORDERED: PT OWN MED DRAWER 7, Y5N ONE ×3 (01:16→21:11)
[2016-08-16] MEDS: RANITIDINE HCL 150 MG TABLET (FP) PO SCH (06:32)
[2016-08-16] MEDS: INSULIN DETEMIR 100 UNITS/ML MDV SQ SCH (06:32)
[2016-08-16] MEDS ORDERED: INSULIN (NOVOLOG) ASPART 100 UNITS/ML 10ML VIAL ONE (06:35)
[2016-08-16] MEDS: INSULIN SLIDING SCALE (NOVOLOG) 1 VIAL SQ SCH ×3 (06:36→18:26)
[2016-08-16 08:17] LABS: MCH 30.2 pg (25.7-33.7); MCHC 33.3 g/dl (32.0-35.9); MEAN CELL VOLUME 90.8 fl (80-96); MEAN PLT VOLUME 9.1 fl (7.5-11.1); PLATELET COUNT 164 K/MM3 (134-434); RDW 17.7 % (11.9-15.9); WHITE BLOOD COUNT 9.2 K/mm3 (4.0-10.0)
[2016-08-16 09:07] LABS: ANION GAP 7 (8-16); CALCIUM 8.2 mg/dL (8.5-10.1); CO2 31 mmol/L (21-32); CREATININE 1.5 mg/dL (0.7-1.3); GLUCOSE,RANDOM 184 mg/dL (74-106); MAGNESIUM 1.9 mg/dL (1.8-2.4)
[2016-08-16] MEDS: TAMSULOSIN HCL 0.4 MG CAP.ER.24H (FP) PO SCH (09:28)
[2016-08-16] MEDS: RIVAROXABAN 20 MG TABLET PO SCH (09:28)
[2016-08-16] MEDS: LOSARTAN POTASSIUM 25 MG TABLET PO SCH (09:29)
[2016-08-16] MEDS: GABAPENTIN 100 MG CAPSULE (FP) PO SCH (09:29)
[2016-08-16] MEDS: CARVEDILOL 6.25 MG TABLET (FP) PO SCH ×2 (09:29→22:20)
[2016-08-16] MEDS: ALLOPURINOL 100 MG TABLET (FP) PO SCH (09:29)
[2016-08-16] MEDS: CHOLECALCIFEROL (VITAMIN D3) 400 UNIT TABLET (FP) PO SCH (09:29)
[2016-08-16] MEDS: POTASSIUM CHLORIDE ORAL LIQUID 20 MEQ/15 ML PO SCH (09:30)
--- NOTE | 2016-08-16 11:00 | PN ---
Progress Note (short form) - Note Progress Note: PULMONARY family present oob to chair vss/afebrile Gen: Awake and alert, NAD Heart: RRR Lung: distant but clear breath sounds Abd: soft, nontender Ext: chronic changes lower ext/ left upper extremity eschar with surrounding edema left shoulder tenderness to palpation labs/meds/notes/imaging/micro noted repeat bld cultures noted ct left shoulder noted/tapped 10 cc bloody ASSESSMENT AND PLAN: UTI/pneumonia ECOLI BACTEREMIA ?septic arthritis left shoulder vs osteo Sepsis LV Systolic Dysfunction Pulmonary HTN CAD s/p CABG Atrial Fibrillation COPD Chronic Hypoxic Respiratory Failure Acute on CKD - left shoulder aspiration of fluid gram stain to be checked - ortho eval appreciated - ABX per ID - rate controlled - continue anticoagulation - Demadex - PO as tolerated Mak AGUSTIN MD
[2016-08-16 11:01] LABS: PLATELET ESTIMATE ADEQUATE (NORMAL)
--- NOTE | 2016-08-16 11:05 | PN ---
Progress Note (short form) - Note Progress Note: feels well no further fevers wants to go home no nausea or vomiting no dysuria low back pain s/p aspiration of the shoulder Vital Signs Period Temp Pulse Resp BP Sys/Mcconnell Pulse Ox Last 24 Hr 98.0 F-99.2 F 70-79 18-18 100-107/41-62 99 cor-rrr lungs decreased bs at bases abd soft,nt ext healed scars unable to left left arm, no erythema, no induration of shoulder CBC, BMP 08/16/16 06:10 08/16/16 06:10 Microbiology 08/15/16 06:10 Blood - Peripheral Venous Blood Culture - Preliminary NO GROWTH OBTAINED AFTER 24 HOURS, INCUBATION TO CONTINUE FOR 4 DAYS. 08/15/16 06:10 Blood - Peripheral Venous Blood Culture - Preliminary NO GROWTH OBTAINED AFTER 24 HOURS, INCUBATION TO CONTINUE FOR 4 DAYS. 08/13/16 08:00 Blood - Peripheral Venous Blood Culture - Final Escherichia Coli 08/13/16 08:00 Blood - Peripheral Venous Blood Culture - Final Escherichia Coli 08/10/16 05:50 Blood - Peripheral Venous Blood Culture - Final NO GROWTH AFTER 5 DAYS INCUBATION 08/10/16 05:50 Blood - Peripheral Venous Blood Culture - Final NO GROWTH AFTER 5 DAYS INCUBATION 08/09/16 02:45 Urine - Urine Clean Catch Urine Culture - Final Escherichia Coli 08/08/16 16:40 Blood - Peripheral Venous Blood Culture - Final Escherichia Coli 08/08/16 16:40 Blood - Peripheral Venous Blood Culture - Final Escherichia Coli Current Medications Acetaminophen (Tylenol -) 650 mg PO Q6H PRN PRN Reason: FEVER Last Admin: 08/14/16 02:14 Dose: 650 mg Allopurinol (Zyloprim -) 100 mg PO DAILY [facility] Last Admin: 08/16/16 09:29 Dose: 100 mg Atorvastatin Calcium (Lipitor -) 40 mg PO HS [facility] Last Admin: 08/15/16 22:00 Dose: 40 mg Carvedilol (Coreg -) 6.25 mg PO BID [facility] Last Admin: 08/16/16 09:29 Dose: 6.25 mg Chlorhexidine Gluconate (Hibiclens For Decolonization -) 1 applic TP HS [facility] Last Admin: 08/15/16 22:01 Dose: 1 applic Cholecalciferol (Vitamin D3 -) 400 unit PO DAILY [facility] Last Admin: 08/16/16 09:29 Dose: 400 unit Fluoxetine HCl (Prozac -) 40 mg PO HS [facility] Last Admin: 08/15/16 22:02 Dose: 40 mg Gabapentin (Neurontin -) 100 mg PO DAILY [facility] Last Admin: 08/16/16 09:29 Dose: 100 mg Meropenem 1 gm/ Dextrose 100 mls @ 100 mls/hr IVPB Q8H-IV MAGEN PRN Reason: Protocol Last Admin: 08/16/16 01:04 Dose: 100 mls/hr Insulin Aspart (Novolog Vial Sliding Scale -) 1 vial SQ TIDAC [facility] PRN Reason: Protocol Insulin Detemir (Levemir Vial) 65 units SQ AM [facility] Last Admin: 08/16/16 06:32 Dose: 65 units Lorazepam (Ativan -) 0.5 mg PO HS [facility] Last Admin: 08/15/16 22:01 Dose: 0.5 mg Losartan Potassium (Cozaar -) 25 mg PO DAILY [facility] Last Admin: 08/16/16 09:29 Dose: 25 mg Oxycodone HCl (Roxicodone -) 5 mg PO Q4H PRN PRN Reason: PAIN Last Admin: 08/15/16 22:36 Dose: 5 mg Potassium Chloride (Potassium Chloride Oral Liquid) 20 meq PO DAILY [facility] Last Admin: 08/16/16 09:30 Dose: 20 meq Ranitidine HCl (Zantac -) 150 mg PO AM [facility] Last Admin: 08/16/16 06:32 Dose: 150 mg Rivaroxaban (Xarelto -) 20 mg PO DAILY [facility] Last Admin: 08/16/16 09:28 Dose: 20 mg Senna/Docusate Sodium (Pericolace -) 2 tablet PO HS [facility] Last Admin: 08/15/16 22:01 Dose: 2 tablet Tamsulosin HCl (Flomax -) 0.4 mg PO DAILY@0830 [facility] Last Admin: 08/16/16 09:28 Dose: 0.4 mg Torsemide (Demadex -) 200 mg PO DAILY [facility] Last Admin: 08/15/16 09:09 Dose: 200 mg a/p recurrent ecoli bacteremia- will review ct scan of abd/pelvis with radiology- d/ w radiology- no fluid collections prostate looks homogeneous ?abscess, will need wbc scan- f/u shoulder aspiration will review imaging studies- ?pneumonia now elevated esr/crp de-escalate antibiotics-resume ancef LS ct scan ?biliary source, repeat LFTS echo-has AICD-no MRI CAD-CHF- AICD DM poorly controlled
[2016-08-16] MEDS: TORSEMIDE 100 MG TABLET PO SCH (11:19)
--- NOTE | 2016-08-16 11:28 | CONSULT ---
Consult - text type - Consultation Consultation Note: Podiatry Consultation: 61 year old IDDM, history of CAD and CHF, presents for admission for subjective fever/chills. Podiatry consultation requested for L 3rd toe ulcer. Patient states that several days prior to admission he noticed loosening of the nail unit, which subsequently came off on its own. Denies any drainage from the nail bed. Denies tenderness to the toe. Currently afebrile, VSS. PMHx: IDDM, CHF, CAD s/p bypass, COPD, H/O DVT on xarelto, ICD Meds: noted in chart ALL: contrast iodine FAIZA: L foot: pedal pulses non-palpable, TG wnl, CFT brisk to all toes. There is a L 3rd toe nail bed ulcer with strong granular base, no deep probing, no deep purulence, no fluctuance, no periwound erythema, no ascending cellulitis, no signs of active infection. Minimal tenderness to palpation. WBC: 9.2 Blood Cx initial: E.Coli Blood Cx current: no growth x 24 hrs Imp: 61 year old IDDM M with L 3rd toe nail bed ulcer 1. Excisional debridement at bedside with scissors, no deep pus nor deep probing ulcer noted. 2. Rx bactroban + DSD daily to L 3rd toe 3. xray L foot to rule out osteomyelitis 4. Source of sepsis not coming from foot 5. Thank you for the courtesy of this consultation. Vinayak Henriquez DPM
--- NOTE | 2016-08-16 12:14 | PN ---
Progress Note, Physician History of Present Illness: Left shoulder discomfort improved post aspiration due to chronic RC tear, not dyspneic, afebrile. - Current Medication List Current Medications: Active Medications Acetaminophen (Tylenol -) 650 mg PO Q6H PRN PRN Reason: FEVER Last Admin: 08/14/16 02:14 Dose: 650 mg Allopurinol (Zyloprim -) 100 mg PO DAILY [facility] Last Admin: 08/16/16 09:29 Dose: 100 mg Atorvastatin Calcium (Lipitor -) 40 mg PO HS [facility] Last Admin: 08/15/16 22:00 Dose: 40 mg Carvedilol (Coreg -) 6.25 mg PO BID [facility] Last Admin: 08/16/16 09:29 Dose: 6.25 mg Chlorhexidine Gluconate (Hibiclens For Decolonization -) 1 applic TP HS [facility] Last Admin: 08/15/16 22:01 Dose: 1 applic Cholecalciferol (Vitamin D3 -) 400 unit PO DAILY [facility] Last Admin: 08/16/16 09:29 Dose: 400 unit Fluoxetine HCl (Prozac -) 40 mg PO HS [facility] Last Admin: 08/15/16 22:02 Dose: 40 mg Gabapentin (Neurontin -) 100 mg PO DAILY [facility] Last Admin: 08/16/16 09:29 Dose: 100 mg Cefazolin Sodium 2 gm/ (Dextrose) 50 mls @ 100 mls/hr IVPB Q8H-IV MAGEN Insulin Aspart (Novolog Vial Sliding Scale -) 1 vial SQ TIDAC [facility] PRN Reason: Protocol Last Admin: 08/16/16 11:45 Dose: 5 units Insulin Detemir (Levemir Vial) 65 units SQ AM [facility] Last Admin: 08/16/16 06:32 Dose: 65 units Lorazepam (Ativan -) 0.5 mg PO HS [facility] Last Admin: 08/15/16 22:01 Dose: 0.5 mg Losartan Potassium (Cozaar -) 25 mg PO DAILY [facility] Last Admin: 08/16/16 09:29 Dose: 25 mg Mupirocin (Bactroban 2% Ointment -) 1 applic TP BID [facility] Oxycodone HCl (Roxicodone -) 5 mg PO Q4H PRN PRN Reason: PAIN Last Admin: 08/15/16 22:36 Dose: 5 mg Potassium Chloride (Potassium Chloride Oral Liquid) 20 meq PO DAILY [facility] Last Admin: 08/16/16 09:30 Dose: 20 meq Ranitidine HCl (Zantac -) 150 mg PO AM [facility] Last Admin: 08/16/16 06:32 Dose: 150 mg Rivaroxaban (Xarelto -) 20 mg PO DAILY [facility] Last Admin: 08/16/16 09:28 Dose: 20 mg Senna/Docusate Sodium (Pericolace -) 2 tablet PO HS [facility] Last Admin: 08/15/16 22:01 Dose: 2 tablet Tamsulosin HCl (Flomax -) 0.4 mg PO DAILY@0830 [facility] Last Admin: 08/16/16 09:28 Dose: 0.4 mg Torsemide (Demadex -) 200 mg PO DAILY [facility] Last Admin: 08/16/16 11:19 Dose: 200 mg - Objective Vital Signs: Vital Signs Temperature 99.2 F 08/16/16 10:00 Pulse Rate 72 08/16/16 11:35 Respiratory Rate 18 08/16/16 10:00 Blood Pressure 111/54 08/16/16 10:00 O2 Sat by Pulse Oximetry (%) 92 L 08/16/16 11:35 Constitutional: Yes: No Distress, Calm Neck: Yes: Supple Cardiovascular: Yes: Regular Rate and Rhythm Respiratory: Yes: Regular, Diminished Gastrointestinal: Yes: Normal Bowel Sounds, Soft Edema: No Labs: CBC, BMP 08/16/16 06:10 08/16/16 06:10 INR, PTT INR 1.62 (0.82-1.09) H 08/08/16 21:35 Problem List - Problems (1) Diabetes mellitus Code(s): E11.9 - TYPE 2 DIABETES MELLITUS WITHOUT COMPLICATIONS Qualifiers: Qualified Code(s): E11.22 - Type 2 diabetes mellitus with diabetic chronic kidney disease; N18.1 - Chronic kidney disease, stage 1; Z79.4 - senior care (current) use of insulin (2) Sepsis Code(s): A41.9 - SEPSIS, UNSPECIFIED ORGANISM Qualifiers: Qualified Code(s): A41.9 - Sepsis, unspecified organism (3) UTI (urinary tract infection) Code(s): N39.0 - URINARY TRACT INFECTION, SITE NOT SPECIFIED Qualifiers: Qualified Code(s): N39.0 - Urinary tract infection, site not specified (4) Acute on chronic systolic and diastolic heart failure, NYHA class 4 Code(s): I50.43 - ACUTE ON CHRONIC COMBINED SYSTOLIC AND DIASTOLIC HRT FAIL (5) COPD (chronic obstructive pulmonary disease) Code(s): J44.9 - CHRONIC OBSTRUCTIVE PULMONARY DISEASE, UNSPECIFIED (6) DVT prophylaxis Code(s): [id number] - (7) Hx of CABG Code(s): Z95.1 - PRESENCE OF AORTOCORONARY BYPASS GRAFT (8) Ischemic cardiomyopathy Code(s): I25.5 - ISCHEMIC CARDIOMYOPATHY (9) Morbid obesity Code(s): E66.01 - MORBID (SEVERE) OBESITY DUE TO EXCESS CALORIES Qualifiers: Qualified Code(s): E66.01 - Morbid (severe) obesity due to excess calories (10) Poor compliance Code(s): Z91.19 - PATIENT'S NONCOMPLIANCE W OTH MEDICAL TREATMENT AND REGIMEN (11) S/P CABG (coronary artery bypass graft) Code(s): Z95.1 - PRESENCE OF AORTOCORONARY BYPASS GRAFT (12) Severe left ventricular systolic dysfunction Code(s): I51.9 - HEART DISEASE, UNSPECIFIED (13) Single implantable cardioverter-defibrillator (ICD) in situ Code(s): Z95.810 - PRESENCE OF AUTOMATIC (IMPLANTABLE) CARDIAC DEFIBRILLATOR (14) Tobacco abuse Code(s): Z72.0 - TOBACCO USE (15) ASHD (arteriosclerotic heart disease) Code(s): I25.10 - ATHSCL HEART DISEASE OF [place] CORONARY ARTERY W/O ANG PCTRS (16) Diabetes mellitus, insulin dependent (IDDM), uncontrolled Code(s): E10.65 - TYPE 1 DIABETES MELLITUS WITH HYPERGLYCEMIA Qualifiers: Qualified Code(s): E10.42 - Type 1 diabetes mellitus with diabetic polyneuropathy; E10.65 - Type 1 diabetes mellitus with hyperglycemia (17) Obstructive sleep apnea of adult Code(s): G47.33 - OBSTRUCTIVE SLEEP APNEA (ADULT) (PEDIATRIC) Assessment/Plan 08/14/2016 Echo: Severely decreased LV fxn, mod-severe decrease RV fxn, Tr-mild MR , tr TR 1. Chronic LV systolic failure with NYHA classification 3-4 heart failure with ischemic cardiomyopathy with pulm HTN 2. Urosepsis with aleman-sensitive E. coli bacteremia, PNA, h/o MRSA 3. CAD S/P CABG, angina pectoris 4. History of cardiac arrest S/P ICD 5. Chronic hypoxic respiratory failure with home O2 dependent COPD and pulmonary nodules 6. Type 2 diabetes mellitus 7. CVA 8. Acute on CKD resolved (now at baseline Cr 1.4-1.5) 9. Morbid obesity 10. History of RLE DVT 11. Persistent atrial fibrillation on NOAC 12. OSAS noncompliant with cpap PLAN: 1. Continue Demadex 200 qd with monitor diuretic response, renal fxn and electrolytes, replete K, Mg as you are 2. Complete Ancef course per C&S 3. Continue Carvedilol 6.25 bid, Atorvastatin 40 qhs and Xarelto 20 qPM 4. Continue losartan 25 qd as renal fxn has stabilized 5. GI prophylaxis, cpap nightly 6. Chest CT results show left upper and lower lobe pulm infiltrates, f/u shoulder joint aspirate
--- NOTE | 2016-08-16 12:35 | PN ---
Progress Note (short form) - Note Progress Note: Pt seen and examined. He has a chronic RTC tear. We discussed the different options: 1. Surgery 2. Cortisone injection, possibly 1 month later a series of 3 gel injections. 3. P.T. He is considering them. He can f/u as an out pt
[2016-08-16 12:50] LABS: ALBUMIN 2.3 g/dl (3.4-5.0); BILIRUBIN,DIRECT 0.5 mg/dL (0.0-0.2); BILIRUBIN,TOTAL 0.9 mg/dL (0.2-1.0); SGOT/AST 62 U/L (15-37); SGPT/ALT 63 U/L (12-78)
[2016-08-16 12:51] LABS: ALK PHOS 635 U/L (45-117)
[2016-08-16] MEDS: oxyCODONE HCL 5 MG TABLET PO PRN (15:32)
--- NOTE | 2016-08-16 16:15 | PN ---
Physical Exam: SUBJECTIVE: Patient seen and examined OBJECTIVE: Vital Signs Period Temp Pulse Resp BP Sys/Mcconnell Pulse Ox Last 24 Hr 98.3 F-99.2 F 70-79 18-18 103-111/50-62 92-99 GENERAL: The patient is awake, alert, and fully oriented, in no acute distress. EYES: PERRL, extraocular movements intact NECK: Trachea midline, full range of motion, supple. LUNGS: Breath sounds equal, clear to auscultation bilaterally, no wheezes, no crackles HEART: Regular rate and rhythm, S1, S2 without murmur, rub or gallop. ABDOMEN: Soft, nontender, nondistended, normoactive bowel sounds EXTREMITIES: 2+ pulses, warm, well-perfused, 1+ edema, venous stasis changes, tenderness in L shoulder and lower back NEUROLOGICAL: Cranial nerves II through XII grossly intact. No vibratory or proprioception in BLLE. Normal speech, gait not observed. Laboratory Results - last 24 hr 08/15/16 08/15/16 08/16/16 15:45 16:46 06:10 WBC 9.2 RBC 3.38 L Hgb 10.2 L Hct 30.7 L MCV 90.8 MCHC 33.3 RDW 17.7 H Plt Count 164 MPV 9.1 Neutrophils % 69.0 Lymphocytes % 19.0 D Monocytes % 7.0 Eosinophils % 3.0 D Band Neutrophils 1.0 Myelocytes 1 Differential Comment Manual diff done Platelet Estimate Adequate Sodium Potassium Chloride Carbon Dioxide Anion Gap BUN Creatinine POC Glucometer 226 Random Glucose Calcium Magnesium Total Bilirubin Direct Bilirubin AST ALT Alkaline Phosphatase Total Protein Albumin Synovial Source Synovial fluid Synovial WBC 2150 Synovial RBC 53252 Synovial Neutrophils 75 Synovial Lymphocytes 5 Synovial Monocytes 16 Synovial Macrophages 4 08/16/16 08/16/16 08/16/16 06:10 06:10 06:31 WBC RBC Hgb Hct MCV MCHC RDW Plt Count MPV Neutrophils % Lymphocytes % Monocytes % Eosinophils % Band Neutrophils Myelocytes Differential Comment Platelet Estimate Sodium 137 Potassium 3.5 Chloride 99 Carbon Dioxide 31 Anion Gap 7 L BUN 36 H Creatinine 1.5 H POC Glucometer 211 Random Glucose 184 H Calcium 8.2 L Magnesium 1.9 Total Bilirubin 0.9 Cancelled Direct Bilirubin 0.5 H D Cancelled AST 62 H Cancelled ALT 63 Cancelled Alkaline Phosphatase 635 H D Cancelled Total Protein 6.0 L Cancelled Albumin 2.3 L Cancelled Synovial Source Synovial WBC Synovial RBC Synovial Neutrophils Synovial Lymphocytes Synovial Monocytes Synovial Macrophages 08/16/16 11:40 WBC RBC Hgb Hct MCV MCHC RDW Plt Count MPV Neutrophils % Lymphocytes % Monocytes % Eosinophils % Band Neutrophils Myelocytes Differential Comment Platelet Estimate Sodium Potassium Chloride Carbon Dioxide Anion Gap BUN Creatinine POC Glucometer 238 Random Glucose Calcium Magnesium Total Bilirubin Direct Bilirubin AST ALT Alkaline Phosphatase Total Protein Albumin Synovial Source Synovial WBC Synovial RBC Synovial Neutrophils Synovial Lymphocytes Synovial Monocytes Synovial Macrophages Active Medications Generic Name Dose Route Start Last Admin Trade Name Frefrancy PRN Reason Stop Dose Admin Acetaminophen 650 mg 08/13/16 18:29 08/14/16 02:14 Tylenol - PO 650 mg Q6H PRN Administration FEVER Allopurinol 100 mg 08/11/16 10:00 08/16/16 09:29 Zyloprim - PO 100 mg DAILY [facility]EN Administration Atorvastatin Calcium 40 mg 08/11/16 22:00 08/15/16 22:00 Lipitor - PO 40 mg HS MAGEN Administration Carvedilol 6.25 mg 08/11/16 10:00 08/16/16 09:29 Coreg - PO 6.25 mg BID MAGEN Administration Chlorhexidine Gluconate 1 applic 08/11/16 22:00 08/15/16 22:01 Hibiclens For Decolonization - TP 1 applic HS MAGEN Administration Cholecalciferol 400 unit 08/11/16 10:00 08/16/16 09:29 Vitamin D3 - PO 400 unit DAILY [facility] Administration Fluoxetine HCl 40 mg 08/11/16 22:00 08/15/16 22:02 Prozac - PO 40 mg HS MAGEN Administration Gabapentin 100 mg 08/14/16 17:15 08/16/16 09:29 Neurontin - PO 100 mg DAILY [facility] Administration Cefazolin Sodium 2 gm/ 50 mls @ 100 mls/hr 08/16/16 18:00 Dextrose IVPB Q8H-IV [facility]EN Insulin Aspart 1 vial 08/16/16 09:22 08/16/16 11:45 Novolog Vial Sliding Scale - SQ 5 units TIDAC MAGEN Administration Protocol Insulin Detemir 65 units 08/16/16 07:00 08/16/16 06:32 Levemir Vial SQ 65 units AM [facility] Administration Lorazepam 0.5 mg 08/11/16 22:00 08/15/16 22:01 Ativan - PO 0.5 mg HS [facility]EN Administration Losartan Potassium 25 mg 08/11/16 12:30 08/16/16 09:29 Cozaar - PO 25 mg DAILY [facility] Administration Mupirocin 1 applic 08/16/16 22:00 Bactroban 2% Ointment - TP BID MAGEN Oxycodone HCl 5 mg 08/14/16 02:16 08/16/16 15:32 Roxicodone - PO 5 mg Q4H PRN Administration PAIN Potassium Chloride 20 meq 08/13/16 10:00 08/16/16 09:30 Potassium Chloride Oral Liquid PO 20 meq DAILY [facility] Administration Ranitidine HCl 150 mg 08/11/16 07:00 08/16/16 06:32 Zantac - PO 150 mg AM [facility]EN Administration Rivaroxaban 20 mg 08/11/16 10:00 08/16/16 09:28 Xarelto - PO 20 mg DAILY [facility] Administration Senna/Docusate Sodium 2 tablet 08/11/16 22:00 08/15/16 22:01 Pericolace - PO 2 tablet HS [facility]EN Administration Tamsulosin HCl 0.4 mg 08/11/16 08:30 08/16/16 09:28 Flomax - PO 0.4 mg DAILY@0830 [facility] Administration Torsemide 200 mg 08/11/16 10:00 08/16/16 11:19 Demadex - PO 200 mg DAILY [facility] Administration ASSESSMENT/PLAN: 61 y/o male with history of systolic CHF, DM, Ischemic CM, Afib/DVT, CKD who presented with sepsis and SOB found to be septic 2/2 UTI # Sepsis with persistent bacteremia - Patient initially presented with fever, tachycardia, with likely source of infection - Patients complaint of dysuria, prompting UA which was positive - Patient was started on empiric Zosyn 2.25mg Q8 IV (renal dosing) and Vancomycin 1250mg IV QD - Urine cultures and Blood cultures on admission both grew E.coli, antibiotics were de-escalated to Cefazolin due to S/S. Patient was on Cefazolin for 4 days - On 08/12 night patient spiked fever (Tmax 102.8) with tachycardia (HR 99) and WBC trending up (8.0 --> 10.4) prompting new Blood cultures to be drawn and antibiotic escalation to Meropenem 1g Q8 IV - New blood cultures grew same organism E.coli - Possible new sources include renal abscess (ruled out from Renal US and CT abd ), shoulder abscess vs osteo (CT shoulder shows L shoulder effusion s/p drainage and culture pending), or Defibrillator pocket infection (ruled out with CT chest) - Patient new has new onset back pain since admission, CT lumbar spine ordered without evidence of infection - ID on board, recommended Indium scan to check for osteo - Antibiotics de-escalated back to Cefazolin 2g Q8H - Will do thorough physical exam tomorrow to look for any leads to infection source # Poorly controlled Diabetes Mellitus - Hgb A1c 10.5 this admission, on Levemir 70QD and Victoza at home - Due to episode of hypoglycemia, patient was switched to 50 and titrated up to 60 --> 65 - Continue Sliding scale insulin - Neuropathic pain during hospitalization, started Gabapentin 100mg QD as DM is poorly controlled #L 3rd Toe Nail Bed Ulcer - Podiatry on board, excisional debridement of L third toe done at bedside with scissors, no deep pus or ulcer noted - Given rx for bactroban and DSD daily to toe - XR L foot showed no signs of osteomyelitis # Acute Systolic CHF - Patient clinically looks euvolemic - Continue torsamide 200mg PO QD and carvedilol 6.25 mg PO BID - Patient is not on Aspirin because he is on Xarelto # H/o Atrial Fibrillation - Continue Xarelto 20mg PO QD #H/o COPD on home oxygen 3L NC RTC - Continue patient on 2L NC - As per Pulmonary reccs keep O2 sat >95 - Continue duoneb Q4 PRN - Check pre/post exercise O2 to assess need for home O2 #H/o Gout -Continue allopurinol 100mg PO QD -Patient is on BID dose at home, decreased due to MARCIAL #H/o Depression -Continue fluoxetine 40mg PO QD # CKD - Patient's Baseline Cr is 1.7 - 2.0 - Current Cr is 1.5. #L Shoulder RTC Tear - Chronic - F/u with Ortho Dr. Cisneros as outpatient #Pulmonary Nodules - Found incidentally on Chest CT - F/u as outpatient # FEN: - Not on IV fluids. - Electrolytes to be repeated tomorrow - Diabetic diet # Prophylaxis - For DVT: Already on Xarelto - For GI: Protonix 40mg QD, as per cardio reccs # Code Status - Full Code Visit type - Emergency Visit Emergency Visit: No - New Patient This patient is new to me today: No - Critical Care Critical Care patient: No - Discharge Referral Referred to [facility] No
[2016-08-16] MEDS: CEFAZOLIN 2 GM in DEXTROSE 5%-WATER - 50 ML IVPB SCH (18:25)
--- NOTE | 2016-08-16 19:57 | PN ---
Teaching Attending Note Name of Resident: Juan José Carbajal ATTENDING PHYSICIAN STATEMENT I saw and evaluated the patient. I reviewed the resident's note and discussed the case with the resident. I agree with the resident's findings and plan as documented. SUBJECTIVE: Comfortable c/o having back pain but this is old OBJECTIVE: Vital Signs Temperature 98.8 F 08/16/16 16:10 Pulse Rate 75 08/16/16 16:10 Respiratory Rate 18 08/16/16 16:10 Blood Pressure 100/53 08/16/16 16:10 O2 Sat by Pulse Oximetry (%) 92 L 08/16/16 11:35 Pe: per resident's note CBCD WBC 9.2 K/mm3 (4.0-10.0) 08/16/16 06:10 RBC 3.38 M/mm3 (4.00-5.60) L 08/16/16 06:10 Hgb 10.2 GM/dL (11.7-16.9) L 08/16/16 06:10 Hct 30.7 % (35.4-49) L 08/16/16 06:10 MCV 90.8 fl (80-96) 08/16/16 06:10 MCHC 33.3 g/dl (32.0-35.9) 08/16/16 06:10 RDW 17.7 % (11.9-15.9) H 08/16/16 06:10 Plt Count 164 K/MM3 (134-434) 08/16/16 06:10 MPV 9.1 fl (7.5-11.1) 08/16/16 06:10 CMP Sodium 137 mmol/L (136-145) 08/16/16 06:10 Potassium 3.5 mmol/L (3.5-5.1) 08/16/16 06:10 Chloride 99 mmol/L (98-107) 08/16/16 06:10 Carbon Dioxide 31 mmol/L (21-32) 08/16/16 06:10 Anion Gap 7 (8-16) L 08/16/16 06:10 BUN 36 mg/dL (7-18) H 08/16/16 06:10 Creatinine 1.5 mg/dL (0.7-1.3) H 08/16/16 06:10 Creat Clearance w eGFR 47.58 (>60) 08/11/16 05:15 Random Glucose 184 mg/dL (74-106) H 08/16/16 06:10 Calcium 8.2 mg/dL (8.5-10.1) L 08/16/16 06:10 Total Bilirubin 0.9 mg/dL (0.2-1.0) 08/16/16 06:10 AST 62 U/L (15-37) H 08/16/16 06:10 ALT 63 U/L (12-78) 08/16/16 06:10 Alkaline Phosphatase 635 U/L (45-117) H D 08/16/16 06:10 Total Protein 6.0 g/dl (6.4-8.2) L 08/16/16 06:10 Albumin 2.3 g/dl (3.4-5.0) L 08/16/16 06:10 CARDIAC ENZYMES Creatine Kinase 124 IU/L (39-308) 08/08/16 21:35 Troponin I 0.05 ng/ml (0.00-0.05) 08/09/16 11:15 Current Medications Generic Name Dose Route Start Last Admin Trade Name Freq PRN Reason Stop Dose Admin Acetaminophen 650 mg 08/13/16 18:29 08/14/16 02:14 Tylenol - PO 650 mg Q6H PRN Administration FEVER Allopurinol 100 mg 08/11/16 10:00 08/16/16 09:29 Zyloprim - PO 100 mg DAILY MAGEN Administration Atorvastatin Calcium 40 mg 08/11/16 22:00 08/15/16 22:00 Lipitor - PO 40 mg HS MAGEN Administration Carvedilol 6.25 mg 08/11/16 10:00 08/16/16 09:29 Coreg - PO 6.25 mg BID MAGEN Administration Chlorhexidine Gluconate 1 applic 08/11/16 22:00 08/15/16 22:01 Hibiclens For Decolonization - TP 1 applic HS MAGEN Administration Cholecalciferol 400 unit 08/11/16 10:00 08/16/16 09:29 Vitamin D3 - PO 400 unit DAILY MAGEN Administration Fluoxetine HCl 40 mg 08/11/16 22:00 08/15/16 22:02 Prozac - PO 40 mg HS MAGEN Administration Gabapentin 100 mg 08/14/16 17:15 08/16/16 09:29 Neurontin - PO 100 mg DAILY MAGEN Administration Cefazolin Sodium 2 gm/ 50 mls @ 100 mls/hr 08/16/16 18:00 08/16/16 18:25 Dextrose IVPB 100 mls/hr Q8H-IV MAGEN Administration Insulin Aspart 1 vial 08/16/16 09:22 08/16/16 18:26 Novolog Vial Sliding Scale - SQ 2 units TIDAC MAGEN Administration Protocol Insulin Detemir 65 units 08/16/16 07:00 08/16/16 06:32 Levemir Vial SQ 65 units AM MAGEN Administration Lorazepam 0.5 mg 08/11/16 22:00 08/15/16 22:01 Ativan - PO 0.5 mg HS MAGEN Administration Losartan Potassium 25 mg 08/11/16 12:30 08/16/16 09:29 Cozaar - PO 25 mg DAILY MAGEN Administration Mupirocin 1 applic 08/16/16 22:00 Bactroban 2% Ointment - TP BID MAGEN Oxycodone HCl 5 mg 08/14/16 02:16 08/16/16 15:32 Roxicodone - PO 5 mg Q4H PRN Administration PAIN Pantoprazole Sodium 40 mg 08/17/16 10:00 Protonix - PO DAILY MAGEN Potassium Chloride 20 meq 08/13/16 10:00 08/16/16 09:30 Potassium Chloride Oral Liquid PO 20 meq DAILY MAGEN Administration Ranitidine HCl 150 mg 08/11/16 07:00 08/16/16 06:32 Zantac - PO 150 mg AM MAGEN Administration Rivaroxaban 20 mg 08/11/16 10:00 08/16/16 09:28 Xarelto - PO 20 mg DAILY MAGEN Administration Senna/Docusate Sodium 2 tablet 08/11/16 22:00 08/15/16 22:01 Pericolace - PO 2 tablet HS MAGEN Administration Tamsulosin HCl 0.4 mg 08/11/16 08:30 08/16/16 09:28 Flomax - PO 0.4 mg DAILY@0830 MAGEN Administration Torsemide 200 mg 08/11/16 10:00 08/16/16 11:19 Demadex - PO 200 mg DAILY MAGEN Administration Home Medications Medication Instructions Recorded Acetaminophen with Codeine 1 each PO Q4HWA PRN 06/24/16 [Acetaminophen-Cod #3 Tablet] Allopurinol [Zyloprim -] 100 mg PO BID 06/24/16 Aspirin [ASA -] 81 mg PO AM 06/24/16 Atorvastatin Calcium 40 mg PO HS 06/24/16 Carvedilol [Coreg -] 6.25 mg PO BID 06/24/16 Cholecalciferol (Vitamin D3) 1,000 mg PO DAILY 06/24/16 [Vitamin D -] Colchicine 0.6 mg PO DAILY 06/24/16 Famotidine/Ca Carb/Mag Hydrox 1 each PO AM 06/24/16 [Pepcid Complete Tablet Chew] Fluoxetine HCl [Prozac] 40 mg PO HS 06/24/16 Insulin (Levemir) [Levemir Vial] 70 unit SQ AM 06/24/16 Insulin Regular, Human [Humulin R 15 - 20 unit SQ AC 06/24/16 U-500 Kwikpen] Ipratropium/Albuterol Sulfate 3 ml IH DAILY PRN 06/24/16 [Iprat-Albut 0.5-3(2.5) mg/3 ml] Liraglutide [Victoza -] 1.8 mg SQ DAILY@0700 06/24/16 Lorazepam 0.5 mg PO HS 06/24/16 Oxycodone HCl/Acetaminophen 1 each PO Q6H PRN 06/24/16 [Oxycodone-Acetaminophen 5-325] Rivaroxaban [Xarelto -] 15 mg PO DAILY 06/24/16 Sennosides/Docusate Sodium [Senna 8.6 mg PO HS 06/24/16 Laxative Tablet] Tamsulosin HCl [Flomax -] 0.4 mg PO DAILY 06/24/16 Torsemide 100 mg PO BID 06/24/16 Trazodone HCl 100 mg PO HS 06/24/16 Microbiology 08/13/16 08:00 Blood - Peripheral Venous Blood Culture - Final Escherichia Coli 08/15/16 06:10 Blood - Peripheral Venous Blood Culture - Preliminary NO GROWTH OBTAINED AFTER 24 HOURS, INCUBATION TO CONTINUE FOR 4 DAYS. 08/15/16 06:10 Blood - Peripheral Venous Blood Culture - Preliminary NO GROWTH OBTAINED AFTER 24 HOURS, INCUBATION TO CONTINUE FOR 4 DAYS. 08/13/16 08:00 Blood - Peripheral Venous Blood Culture - Final Escherichia Coli 08/10/16 05:50 Blood - Peripheral Venous Blood Culture - Final NO GROWTH AFTER 5 DAYS INCUBATION 08/10/16 05:50 Blood - Peripheral Venous Blood Culture - Final NO GROWTH AFTER 5 DAYS INCUBATION 08/09/16 02:45 Urine - Urine Clean Catch Urine Culture - Final Escherichia Coli 08/08/16 16:40 Blood - Peripheral Venous Blood Culture - Final Escherichia Coli 08/08/16 16:40 Blood - Peripheral Venous Blood Culture - Final Escherichia Coli CT of abd /pelvis with no abscess , but L shoulder with large effusion which could be septic , Infiltrate reported ASSESSMENT AND PLAN: 61 y/o man with h/o ICM , CKD , S CHF , CABG, s/p cardiac arrest , R LE DVT , and DM who presented with SOB and not feeling well and was found to have sepsis 2/2 UTI and bacteremia # E.Coli bacteremia :with UTI s/p sepsis ON Cefazolin, sensitive to Cefazolin continue ID on the case # DM on Levemir increased dose to 70 daily for better sugar control, SSI # Acute Systolic CHF : On demadex at home continue coreg, On xarelto. # h/o Afib : cont xarelto CKD : base line Cr 1.7-2. monitor
[2016-08-16] MEDS ORDERED: MUPIROCIN CA 2% TOPICAL CREAM 15 GM TUBE TP SCH (22:00)
[2016-08-16] MEDS: ATORVASTATIN CA 40 MG TABLET (FP) PO SCH (22:20)
[2016-08-16] MEDS: LORazepam 0.5 MG TABLET PO SCH (22:20)
[2016-08-16] MEDS: SENNOSIDES/DOCUSATE COMBO (SENNA PLUS) TABLET (UD) PO SCH (22:20)
[2016-08-16] MEDS: CHLORHEXIDINE GLUCONATE 4% CLEANSER FOR DECOLONIZATION TP SCH (22:37)
[2016-08-16] MEDS: MUPIROCIN 2% TOPICAL OINTMENT 22 GM TUBE TP SCH (23:00)
[2016-08-16] MEDS: FLUoxetine HCL 20 MG CAPSULE (FP) PO SCH (23:00)
[2016-08-17] MEDS: CEFAZOLIN 2 GM/D5W 50 ML IVPB SCH ×3 (02:43→17:41)
[2016-08-17] MEDS: CEFAZOLIN 2 GM in DEXTROSE 5%-WATER - 50 ML IVPB SCH (02:44)
[2016-08-17] MEDS ORDERED: diphenhydrAMINE HCL 25 MG CAPSULE (FP) PO ONE (03:05)
[2016-08-17] MEDS: INSULIN DETEMIR 100 UNITS/ML MDV SQ SCH (06:43)
[2016-08-17] MEDS: INSULIN SLIDING SCALE (NOVOLOG) 1 VIAL SQ SCH ×3 (06:45→17:33)
[2016-08-17] MEDS: RANITIDINE HCL 150 MG TABLET (FP) PO SCH (06:45)
[2016-08-17 07:54] LABS: MCH 30.7 pg (25.7-33.7); MCHC 33.6 g/dl (32.0-35.9); MEAN CELL VOLUME 91.4 fl (80-96); MEAN PLT VOLUME 8.9 fl (7.5-11.1); PLATELET COUNT 182 K/MM3 (134-434); RDW 17.8 % (11.9-15.9); WHITE BLOOD COUNT 9.3 K/mm3 (4.0-10.0)
[2016-08-17 08:33] LABS: ALBUMIN 2.4 g/dl (3.4-5.0); ALK PHOS 755 U/L (45-117); ANION GAP 7 (8-16); BILIRUBIN,TOTAL 0.9 mg/dL (0.2-1.0); CALCIUM 8.6 mg/dL (8.5-10.1); CO2 32 mmol/L (21-32); CREATININE 1.5 mg/dL (0.7-1.3); GLUCOSE,RANDOM 237 mg/dL (74-106); SGOT/AST 59 U/L (15-37); SGPT/ALT 57 U/L (12-78); TOT PROT 6.5 g/dl (6.4-8.2)
[2016-08-17] MEDS ORDERED: PT OWN MED DRAWER 7, Y5N ONE (09:07)
--- NOTE | 2016-08-17 09:08 | PN ---
Progress Note (short form) - Note Progress Note: Ortho Pt seen and examined- left shoulder is better as long as he does not move it decr pain, decr rom, + empty can, nvi a/p PT eval f/u as outpt, can give pt cortisone injection once active infection is clear Nothing further to do d/w Dr. Cisneros
[2016-08-17] MEDS: CARVEDILOL 6.25 MG TABLET (FP) PO SCH ×2 (09:26→21:17)
[2016-08-17] MEDS: POTASSIUM CHLORIDE ORAL LIQUID 20 MEQ/15 ML PO SCH (09:26)
[2016-08-17] MEDS: PANTOPRAZOLE 40 MG TABLET (FP) PO SCH (09:26)
[2016-08-17] MEDS: TAMSULOSIN HCL 0.4 MG CAP.ER.24H (FP) PO SCH (09:26)
[2016-08-17] MEDS: ALLOPURINOL 100 MG TABLET (FP) PO SCH (09:26)
[2016-08-17] MEDS: CHOLECALCIFEROL (VITAMIN D3) 400 UNIT TABLET (FP) PO SCH (09:26)
[2016-08-17] MEDS: LOSARTAN POTASSIUM 25 MG TABLET PO SCH (09:26)
[2016-08-17] MEDS: RIVAROXABAN 20 MG TABLET PO SCH (09:26)
[2016-08-17] MEDS: TORSEMIDE 100 MG TABLET PO SCH (09:27)
[2016-08-17] MEDS: GABAPENTIN 100 MG CAPSULE (FP) PO SCH (09:27)
[2016-08-17] MEDS: MUPIROCIN 2% TOPICAL OINTMENT 22 GM TUBE TP SCH ×2 (09:28→21:17)
--- NOTE | 2016-08-17 10:12 | PN ---
Progress Note (short form) - Note Progress Note: PULMONARY Denies shortness of breath or chest pain. No fevers or chills. Last Vital Signs Temp Pulse Resp BP Pulse Ox 98.5 F 83 18 142/70 93 L 08/17/16 06:00 08/17/16 09:17 08/17/16 06:00 08/17/16 06:00 08/17/16 09:17 Gen: NAD at rest Heart: RRR Lung: decreased breath sounds at the bases Abd: soft, nontender Ext: no edema, chronic changes CBC, BMP 08/17/16 06:00 08/17/16 06:00 Active Medications Acetaminophen (Tylenol -) 650 mg PO Q6H PRN PRN Reason: FEVER Last Admin: 08/14/16 02:14 Dose: 650 mg Allopurinol (Zyloprim -) 100 mg PO DAILY [facility] Last Admin: 08/17/16 09:26 Dose: 100 mg Atorvastatin Calcium (Lipitor -) 40 mg PO HS [facility] Last Admin: 08/16/16 22:20 Dose: 40 mg Carvedilol (Coreg -) 6.25 mg PO BID [facility] Last Admin: 08/17/16 09:26 Dose: 6.25 mg Cholecalciferol (Vitamin D3 -) 400 unit PO DAILY [facility] Last Admin: 08/17/16 09:26 Dose: 400 unit Fluoxetine HCl (Prozac -) 40 mg PO HS [facility] Last Admin: 08/16/16 23:00 Dose: 40 mg Gabapentin (Neurontin -) 100 mg PO DAILY [facility] Last Admin: 08/17/16 09:27 Dose: 100 mg Cefazolin Sodium/Dextrose (Ancef 2 Gm Premixed Ivpb -) 50 mls @ 100 mls/hr IVPB Q8H-IV [facility] Last Admin: 08/17/16 09:28 Dose: 100 mls/hr Insulin Aspart (Novolog Vial Sliding Scale -) 1 vial SQ TIDAC [facility] PRN Reason: Protocol Last Admin: 08/17/16 06:45 Dose: 7 units Insulin Detemir (Levemir Vial) 65 units SQ AM [facility] Last Admin: 08/17/16 06:43 Dose: 65 units Lorazepam (Ativan -) 0.5 mg PO HS [facility] Last Admin: 08/16/16 22:20 Dose: 0.5 mg Losartan Potassium (Cozaar -) 25 mg PO DAILY [facility] Last Admin: 08/17/16 09:26 Dose: 25 mg Mupirocin (Bactroban 2% Ointment -) 1 applic TP BID [facility] Last Admin: 08/17/16 09:28 Dose: 1 gm Pantoprazole Sodium (Protonix -) 40 mg PO DAILY [facility] Last Admin: 08/17/16 09:26 Dose: 40 mg Potassium Chloride (Potassium Chloride Oral Liquid) 20 meq PO DAILY [facility] Last Admin: 08/17/16 09:26 Dose: 20 meq Ranitidine HCl (Zantac -) 150 mg PO AM [facility] Last Admin: 08/17/16 06:45 Dose: 150 mg Rivaroxaban (Xarelto -) 20 mg PO DAILY [facility] Last Admin: 08/17/16 09:26 Dose: 20 mg Senna/Docusate Sodium (Pericolace -) 2 tablet PO HS [facility] Last Admin: 08/16/16 22:20 Dose: 2 tablet Tamsulosin HCl (Flomax -) 0.4 mg PO DAILY@0830 [facility] Last Admin: 08/17/16 09:26 Dose: 0.4 mg Torsemide (Demadex -) 200 mg PO DAILY [facility] Last Admin: 08/17/16 09:27 Dose: 200 mg A/P UTI E coli Bacteremia LV Systolic Dysfunction Pulmonary HTN HTN DM Atrial fibrillation Acute on Chronic Renal Failure Lung Nodules COPD - continue antibiotics - f/u joint aspirate cultures - rate controlled - continue anticoagulation - O2 to keep SpO2 >90% - will need outpt f/u for CT chest findings
--- NOTE | 2016-08-17 11:57 | PN ---
Progress Note, Physician History of Present Illness: Left shoulder discomfort improved post aspiration due to chronic RC tear, not dyspneic, afebrile. - Current Medication List Current Medications: Active Medications Acetaminophen (Tylenol -) 650 mg PO Q6H PRN PRN Reason: FEVER Last Admin: 08/14/16 02:14 Dose: 650 mg Allopurinol (Zyloprim -) 100 mg PO DAILY [facility] Last Admin: 08/17/16 09:26 Dose: 100 mg Atorvastatin Calcium (Lipitor -) 40 mg PO HS [facility] Last Admin: 08/16/16 22:20 Dose: 40 mg Carvedilol (Coreg -) 6.25 mg PO BID [facility] Last Admin: 08/17/16 09:26 Dose: 6.25 mg Cholecalciferol (Vitamin D3 -) 400 unit PO DAILY [facility] Last Admin: 08/17/16 09:26 Dose: 400 unit Fluoxetine HCl (Prozac -) 40 mg PO HS [facility] Last Admin: 08/16/16 23:00 Dose: 40 mg Gabapentin (Neurontin -) 100 mg PO DAILY [facility] Last Admin: 08/17/16 09:27 Dose: 100 mg Cefazolin Sodium/Dextrose (Ancef 2 Gm Premixed Ivpb -) 50 mls @ 100 mls/hr IVPB Q8H-IV [facility] Last Admin: 08/17/16 09:28 Dose: 100 mls/hr Insulin Aspart (Novolog Vial Sliding Scale -) 1 vial SQ TIDAC [facility] PRN Reason: Protocol Last Admin: 08/17/16 06:45 Dose: 7 units Insulin Detemir (Levemir Vial) 65 units SQ AM [facility] Last Admin: 08/17/16 06:43 Dose: 65 units Lorazepam (Ativan -) 0.5 mg PO HS [facility] Last Admin: 08/16/16 22:20 Dose: 0.5 mg Losartan Potassium (Cozaar -) 25 mg PO DAILY [facility] Last Admin: 08/17/16 09:26 Dose: 25 mg Mupirocin (Bactroban 2% Ointment -) 1 applic TP BID [facility] Last Admin: 08/17/16 09:28 Dose: 1 gm Pantoprazole Sodium (Protonix -) 40 mg PO DAILY [facility] Last Admin: 08/17/16 09:26 Dose: 40 mg Potassium Chloride (Potassium Chloride Oral Liquid) 20 meq PO DAILY [facility] Last Admin: 08/17/16 09:26 Dose: 20 meq Ranitidine HCl (Zantac -) 150 mg PO AM [facility] Last Admin: 08/17/16 06:45 Dose: 150 mg Rivaroxaban (Xarelto -) 20 mg PO DAILY [facility] Last Admin: 08/17/16 09:26 Dose: 20 mg Senna/Docusate Sodium (Pericolace -) 2 tablet PO HS [facility] Last Admin: 08/16/16 22:20 Dose: 2 tablet Tamsulosin HCl (Flomax -) 0.4 mg PO DAILY@0830 [facility] Last Admin: 08/17/16 09:26 Dose: 0.4 mg Torsemide (Demadex -) 200 mg PO DAILY [facility] Last Admin: 08/17/16 09:27 Dose: 200 mg - Objective Vital Signs: Vital Signs Temperature 98 F 08/17/16 09:00 Pulse Rate 83 08/17/16 09:17 Respiratory Rate 18 08/17/16 09:00 Blood Pressure 110/68 08/17/16 09:00 O2 Sat by Pulse Oximetry (%) 93 L 08/17/16 09:17 Constitutional: Yes: No Distress, Calm Neck: Yes: Supple Cardiovascular: Yes: Pulse Irregular Respiratory: Yes: Regular, Diminished Gastrointestinal: Yes: Normal Bowel Sounds, Soft, Abdomen, Obese Edema: No Labs: CBC, BMP 08/17/16 06:00 08/17/16 06:00 INR, PTT INR 1.62 (0.82-1.09) H 08/08/16 21:35 Problem List - Problems (1) Diabetes mellitus Code(s): E11.9 - TYPE 2 DIABETES MELLITUS WITHOUT COMPLICATIONS Qualifiers: Diabetes mellitus type: type 2 Diabetes mellitus complication status: with kidney complications Diabetes mellitus complication detail: with chronic kidney disease Diabetes mellitus retirement insulin use: with oysterman use Chronic kidney disease stage: stage 4 (severe) Qualified Code(s): E11.22 - Type 2 diabetes mellitus with diabetic chronic kidney disease ; N18.1 - Chronic kidney disease, stage 1; Z79.4 - intermediate (current) use of insulin (2) Sepsis Code(s): A41.9 - SEPSIS, UNSPECIFIED ORGANISM Qualifiers: Sepsis type: sepsis due to unspecified organism Qualified Code(s): A41.9 - Sepsis, unspecified organism (3) UTI (urinary tract infection) Code(s): N39.0 - URINARY TRACT INFECTION, SITE NOT SPECIFIED Qualifiers: Urinary tract infection type: site unspecified Hematuria presence: without hematuria Qualified Code(s): N39.0 - Urinary tract infection, site not specified (4) Acute on chronic systolic and diastolic heart failure, NYHA class 4 Code(s): I50.43 - ACUTE ON CHRONIC COMBINED SYSTOLIC AND DIASTOLIC HRT FAIL (5) COPD (chronic obstructive pulmonary disease) Code(s): J44.9 - CHRONIC OBSTRUCTIVE PULMONARY DISEASE, UNSPECIFIED Qualifiers : COPD type: chronic bronchitis (6) DVT prophylaxis Code(s): [id number] - (7) Hx of CABG Code(s): Z95.1 - PRESENCE OF AORTOCORONARY BYPASS GRAFT (8) Ischemic cardiomyopathy Code(s): I25.5 - ISCHEMIC CARDIOMYOPATHY (9) Morbid obesity Code(s): E66.01 - MORBID (SEVERE) OBESITY DUE TO EXCESS CALORIES Qualifiers: Obesity type: due to excess calories Qualified Code(s): E66.01 - Morbid (severe) obesity due to excess calories (10) Poor compliance Code(s): Z91.19 - PATIENT'S NONCOMPLIANCE W OTH MEDICAL TREATMENT AND REGIMEN (11) S/P CABG (coronary artery bypass graft) Code(s): Z95.1 - PRESENCE OF AORTOCORONARY BYPASS GRAFT (12) Severe left ventricular systolic dysfunction Code(s): I51.9 - HEART DISEASE, UNSPECIFIED (13) Single implantable cardioverter-defibrillator (ICD) in situ Code(s): Z95.810 - PRESENCE OF AUTOMATIC (IMPLANTABLE) CARDIAC DEFIBRILLATOR (14) Tobacco abuse Code(s): Z72.0 - TOBACCO USE (15) ASHD (arteriosclerotic heart disease) Code(s): I25.10 - ATHSCL HEART DISEASE OF [place] CORONARY ARTERY W/O ANG PCTRS (16) Diabetes mellitus, insulin dependent (IDDM), uncontrolled Code(s): E10.65 - TYPE 1 DIABETES MELLITUS WITH HYPERGLYCEMIA Qualifiers: Diabetes mellitus complication detail: with polyneuropathy (17) Obstructive sleep apnea of adult Code(s): G47.33 - OBSTRUCTIVE SLEEP APNEA (ADULT) (PEDIATRIC) Assessment/Plan 08/14/2016 Echo: Severely decreased LV fxn, mod-severe decrease RV fxn, Tr-mild MR , tr TR 1. Chronic LV systolic failure with NYHA classification 3-4 heart failure with ischemic cardiomyopathy with pulm HTN 2. Urosepsis with aleman-sensitive E. coli bacteremia, PNA, h/o MRSA 3. CAD S/P CABG, angina pectoris 4. History of cardiac arrest S/P ICD 5. Chronic hypoxic respiratory failure with home O2 dependent COPD and pulmonary nodules 6. Type 2 diabetes mellitus 7. CVA 8. Acute on CKD resolved (now at baseline Cr 1.4-1.5) 9. Morbid obesity 10. History of RLE DVT 11. Persistent atrial fibrillation on NOAC 12. OSAS noncompliant with cpap PLAN: 1. Continue Demadex 200 qd with monitor diuretic response, renal fxn and electrolytes, replete K, Mg as you are 2. Complete Ancef course per C&S 3. Continue Carvedilol 6.25 bid, Atorvastatin 40 qhs and Xarelto 20 qPM 4. Continue losartan 25 qd as renal fxn has stabilized 5. GI prophylaxis, cpap nightly 6. Chest CT results show left upper and lower lobe pulm infiltrates, for repeat as outpatient, f/u shoulder joint aspirate
--- NOTE | 2016-08-17 15:42 | PN ---
Progress Note (short form) - Note Progress Note: feels well no further fevers Vital Signs Period Temp Pulse Resp BP Sys/Mcconnell Pulse Ox Last 24 Hr 97.8 F-99.0 F 68-83 16-18 100-142/53-70 93-94 cor-rrr lungs clear abd soft,nt ext venous stasis changes REFUSES RECTAL EXAM unable to left left arm, no erythema, no induration of shoulder CBC, BMP 08/17/16 06:00 08/17/16 06:00 alk phos 755 Active Medications Acetaminophen (Tylenol -) 650 mg PO Q6H PRN PRN Reason: FEVER Last Admin: 08/14/16 02:14 Dose: 650 mg Allopurinol (Zyloprim -) 100 mg PO DAILY [facility] Last Admin: 08/17/16 09:26 Dose: 100 mg Atorvastatin Calcium (Lipitor -) 40 mg PO HS [facility] Last Admin: 08/16/16 22:20 Dose: 40 mg Carvedilol (Coreg -) 6.25 mg PO BID [facility] Last Admin: 08/17/16 09:26 Dose: 6.25 mg Cholecalciferol (Vitamin D3 -) 400 unit PO DAILY [facility] Last Admin: 08/17/16 09:26 Dose: 400 unit Fluoxetine HCl (Prozac -) 40 mg PO HS [facility] Last Admin: 08/16/16 23:00 Dose: 40 mg Gabapentin (Neurontin -) 100 mg PO DAILY [facility] Last Admin: 08/17/16 09:27 Dose: 100 mg Cefazolin Sodium/Dextrose (Ancef 2 Gm Premixed Ivpb -) 50 mls @ 100 mls/hr IVPB Q8H-IV [facility] Last Admin: 08/17/16 09:28 Dose: 100 mls/hr Insulin Aspart (Novolog Vial Sliding Scale -) 1 vial SQ TIDAC [facility] PRN Reason: Protocol Last Admin: 08/17/16 12:11 Dose: 11 units Insulin Detemir (Levemir Vial) 65 units SQ AM [facility] Last Admin: 08/17/16 06:43 Dose: 65 units Lorazepam (Ativan -) 0.5 mg PO HS [facility] Last Admin: 08/16/16 22:20 Dose: 0.5 mg Losartan Potassium (Cozaar -) 25 mg PO DAILY [facility] Last Admin: 08/17/16 09:26 Dose: 25 mg Mupirocin (Bactroban 2% Ointment -) 1 applic TP BID [facility] Last Admin: 08/17/16 09:28 Dose: 1 gm Pantoprazole Sodium (Protonix -) 40 mg PO DAILY [facility] Last Admin: 08/17/16 09:26 Dose: 40 mg Potassium Chloride (Potassium Chloride Oral Liquid) 20 meq PO DAILY [facility] Last Admin: 08/17/16 09:26 Dose: 20 meq Ranitidine HCl (Zantac -) 150 mg PO AM [facility] Last Admin: 08/17/16 06:45 Dose: 150 mg Rivaroxaban (Xarelto -) 20 mg PO DAILY [facility] Last Admin: 08/17/16 09:26 Dose: 20 mg Senna/Docusate Sodium (Pericolace -) 2 tablet PO HS [facility] Last Admin: 08/16/16 22:20 Dose: 2 tablet Tamsulosin HCl (Flomax -) 0.4 mg PO DAILY@0830 [facility] Last Admin: 08/17/16 09:26 Dose: 0.4 mg Torsemide (Demadex -) 200 mg PO DAILY [facility] Last Admin: 08/17/16 09:27 Dose: 200 mg a/p recurrent ecoli bacteremia- ?source rising alk phos, get GGT, consider GI evaluation , wbc scan ordered ?pneumonia awaiting results of shoulder fluid aspiration echo-has AICD-no MRI CAD-CHF- AICD DM poorly controlled
--- NOTE | 2016-08-17 15:48 | PN ---
Physical Exam: SUBJECTIVE: Patient seen and examined this AM. Patient was lying in bed, without complains. Feels good, no complains last night of fever, chills, SOB, CP. Continues to endorse chronic shoulder pain and back pain. Last night nurse stated that patient complained of neuropathic pain and was given Benedryl. OBJECTIVE: Vital Signs Period Temp Pulse Resp BP Sys/Mcconnell Pulse Ox Last 24 Hr 97.8 F-99.0 F 68-83 16-18 100-142/53-70 93-94 GENERAL: The patient is awake, alert, and fully oriented, in no acute distress. Patient is hard of hearing, uses hearing aid EYES: PERRL, extraocular movements intact LUNGS: Breath sounds equal, clear to auscultation bilaterally, no wheezes, no crackles, no accessory muscle use. HEART: Regular rate and rhythm, S1, S2 without murmur, rub or gallop. ABDOMEN: Obese, Soft, nontender, nondistended, normoactive bowel sounds, no guarding, no rebound, no hepatosplenomegaly, no masses. UPPER EXTREMITIES: 2+ pulses, warm, well-perfused, no edema. MARILYN has wound that was treated for MRSA, improving erythema LOWE EXTREMITIES: 2+ pulses, warm, venous stasis changes with diabetic ulcers NEUROLOGICAL: AOA x3, no facial droop. Cranial nerves II through XII grossly intact. No vibratory or proprioception in BLLE. Normal speech, gait not observed. Laboratory Results - last 24 hr 08/16/16 08/16/16 08/17/16 17:55 22:24 06:00 WBC 9.3 RBC 3.68 L Hgb 11.3 L D Hct 33.7 L MCV 91.4 MCHC 33.6 RDW 17.8 H Plt Count 182 MPV 8.9 Sodium Potassium Chloride Carbon Dioxide Anion Gap BUN Creatinine Creat Clearance w eGFR POC Glucometer 180 259 Random Glucose Calcium Total Bilirubin AST ALT Alkaline Phosphatase Total Protein Albumin 08/17/16 08/17/16 08/17/16 06:00 06:14 12:09 WBC RBC Hgb Hct MCV MCHC RDW Plt Count MPV Sodium 139 Potassium 3.7 Chloride 100 Carbon Dioxide 32 Anion Gap 7 L BUN 35 H Creatinine 1.5 H Creat Clearance w eGFR 47.58 POC Glucometer 254 380 Random Glucose 237 H D Calcium 8.6 Total Bilirubin 0.9 AST 59 H ALT 57 Alkaline Phosphatase 755 H Total Protein 6.5 Albumin 2.4 L Active Medications Generic Name Dose Route Start Last Admin Trade Name Michaelle PRN Reason Stop Dose Admin Acetaminophen 650 mg 08/13/16 18:29 08/14/16 02:14 Tylenol - PO 650 mg Q6H PRN Administration FEVER Allopurinol 100 mg 08/11/16 10:00 08/17/16 09:26 Zyloprim - PO 100 mg DAILY [facility] Administration Atorvastatin Calcium 40 mg 08/11/16 22:00 08/16/16 22:20 Lipitor - PO 40 mg HS [facility] Administration Carvedilol 6.25 mg 08/11/16 10:00 08/17/16 09:26 Coreg - PO 6.25 mg BID [facility] Administration Cholecalciferol 400 unit 08/11/16 10:00 08/17/16 09:26 Vitamin D3 - PO 400 unit DAILY [facility] Administration Fluoxetine HCl 40 mg 08/11/16 22:00 08/16/16 23:00 Prozac - PO 40 mg HS [facility] Administration Gabapentin 100 mg 08/14/16 17:15 08/17/16 09:27 Neurontin - PO 100 mg DAILY [facility] Administration Cefazolin Sodium/Dextrose 50 mls @ 100 mls/hr 08/17/16 02:45 08/17/16 09:28 Ancef 2 Gm Premixed Ivpb - IVPB 100 mls/hr Q8H-IV [facility] Administration Insulin Aspart 1 vial 08/16/16 09:22 08/17/16 12:11 Novolog Vial Sliding Scale - SQ 11 units TIDAC [facility] Administration Protocol Insulin Detemir 65 units 08/16/16 07:00 08/17/16 06:43 Levemir Vial SQ 65 units AM [facility] Administration Lorazepam 0.5 mg 08/11/16 22:00 08/16/16 22:20 Ativan - PO 0.5 mg HS [facility] Administration Losartan Potassium 25 mg 08/11/16 12:30 08/17/16 09:26 Cozaar - PO 25 mg DAILY [facility] Administration Mupirocin 1 applic 08/16/16 22:00 08/17/16 09:28 Bactroban 2% Ointment - TP 1 gm BID [facility] Administration Pantoprazole Sodium 40 mg 08/17/16 10:00 08/17/16 09:26 Protonix - PO 40 mg DAILY [facility] Administration Potassium Chloride 20 meq 08/13/16 10:00 08/17/16 09:26 Potassium Chloride Oral Liquid PO 20 meq DAILY [facility] Administration Ranitidine HCl 150 mg 08/11/16 07:00 08/17/16 06:45 Zantac - PO 150 mg AM [facility] Administration Rivaroxaban 20 mg 08/11/16 10:00 08/17/16 09:26 Xarelto - PO 20 mg DAILY [facility] Administration Senna/Docusate Sodium 2 tablet 08/11/16 22:00 08/16/16 22:20 Pericolace - PO 2 tablet HS [facility] Administration Tamsulosin HCl 0.4 mg 08/11/16 08:30 08/17/16 09:26 Flomax - PO 0.4 mg DAILY@0830 [facility] Administration Torsemide 200 mg 08/11/16 10:00 08/17/16 09:27 Demadex - PO 200 mg DAILY [facility] Administration ASSESSMENT/PLAN: 61 y/o male with history of systolic CHF, DM, Ischemic CM, Afib/DVT, CKD who presented with sepsis and SOB found to be septic 2/2 UTI # Sepsis with persistent bacteremia - resolved - Patient initially presented with fever, tachycardia, with likely source of infection - Patients complaint of dysuria, prompting UA which was positive - Patient was started on empiric Zosyn 2.25mg Q8 IV (renal dosing) and Vancomycin 1250mg IV QD - Urine cultures and Blood cultures on admission both grew E.coli, antibiotics were de-escalated to Cefazolin due to S/S. Patient was on Cefazolin for 4 days - On 08/12 night patient spiked fever (Tmax 102.8) with tachycardia (HR 99) and WBC trending up (8.0 --> 10.4) prompting new Blood cultures to be drawn and antibiotic escalation to Meropenem 1g Q8 IV - New blood cultures grew same organism E.coli - Possible new sources include renal abscess (ruled out from Renal US and CT abd ), shoulder abscess vs osteo (CT shoulder shows L shoulder effusion s/p drainage and culture pending), or Defibrillator pocket infection (ruled out with CT chest) - Patient new has new onset back pain since admission, CT lumbar spine ordered without evidence of infection - Antibiotics de-escalated back to Cefazolin 2g Q8H, on Day 2 - ID on board, recommended Indium scan to check for osteo, which can possibly be done outpatient - Asked nurse to obtain post-void bladder scan to check for urinary retention, static urine could be the source of recurrent bacteremia # Poorly controlled Diabetes Mellitus - Hgb A1c 10.5 this admission, on Levemir 70QD and Victoza at home - Due to episode of hypoglycemia, patient was switched to 50 and titrated up to 60 --> 65 --> 70 - Continue Sliding scale insulin - Neuropathic pain during hospitalization, started Gabapentin 100mg QD as DM is poorly controlled. Temporarily relieved by Benedryl, so started patient on Benedryl 25mg QHS - Ask patient about Endocrine doctors, consider endocrine consult #L 3rd Toe Nail Bed Ulcer - Podiatry on board, excisional debridement of L third toe done at bedside with scissors, no deep pus or ulcer noted - Given rx for bactroban and DSD daily to toe - XR L foot showed no signs of osteomyelitis # Acute Systolic CHF - Patient clinically looks euvolemic - Continue torsamide 200mg PO QD and carvedilol 6.25 mg PO BID - Patient is not on Aspirin because he is on Xarelto # H/o Atrial Fibrillation - Continue Xarelto 20mg PO QD #H/o COPD on home oxygen 3L NC RTC - Continue patient on 2L NC - As per Pulmonary reccs keep O2 sat >95 - Continue duoneb Q4 PRN - Check pre/post exercise O2 to assess need for home O2 #H/o Gout -Continue allopurinol 100mg PO QD -Patient is on BID dose at home, decreased due to MARCIAL #H/o Depression -Continue fluoxetine 40mg PO QD # CKD - Patient's Baseline Cr is 1.7 - 2.0 - Current Cr is 1.5. #L Shoulder RTC Tear - Chronic - F/u with Ortho Dr. Cisneros as outpatient #Pulmonary Nodules - Found incidentally on Chest CT - F/u as outpatient # FEN: - Not on IV fluids. - Electrolytes to be repeated tomorrow - Diabetic diet # Prophylaxis - For DVT: Already on Xarelto - For GI: Protonix 40mg QD, as per cardio reccs # Code Status - Full Code Visit type - Emergency Visit Emergency Visit: No - New Patient This patient is new to me today: No - Critical Care Critical Care patient: No - Discharge Referral Referred to [facility] No
[2016-08-17] MEDS: diphenhydrAMINE HCL 25 MG CAPSULE (FP) PO SCH (21:17)
[2016-08-17] MEDS: LORazepam 0.5 MG TABLET PO SCH (21:17)
[2016-08-17] MEDS: FLUoxetine HCL 20 MG CAPSULE (FP) PO SCH (21:18)
[2016-08-17] MEDS: ATORVASTATIN CA 40 MG TABLET (FP) PO SCH (21:18)
[2016-08-17] MEDS: SENNOSIDES/DOCUSATE COMBO (SENNA PLUS) TABLET (UD) PO SCH (21:18)
--- NOTE | 2016-08-17 21:42 | PN ---
Teaching Attending Note Name of Resident: Juan José Carbajal ATTENDING PHYSICIAN STATEMENT I saw and evaluated the patient. I reviewed the resident's note and discussed the case with the resident. I agree with the resident's findings and plan as documented. SUBJECTIVE: Patient is feeling better, no fever or chills, no shortness of breath. OBJECTIVE: Vital Signs Temperature 99.0 F 08/17/16 16:10 Pulse Rate 75 08/17/16 16:10 Respiratory Rate 18 08/17/16 16:10 Blood Pressure 116/51 08/17/16 16:10 O2 Sat by Pulse Oximetry (%) 93 L 08/17/16 09:17 PE: per resident's note CBCD WBC 9.3 K/mm3 (4.0-10.0) 08/17/16 06:00 RBC 3.68 M/mm3 (4.00-5.60) L 08/17/16 06:00 Hgb 11.3 GM/dL (11.7-16.9) L D 08/17/16 06:00 Hct 33.7 % (35.4-49) L 08/17/16 06:00 MCV 91.4 fl (80-96) 08/17/16 06:00 MCHC 33.6 g/dl (32.0-35.9) 08/17/16 06:00 RDW 17.8 % (11.9-15.9) H 08/17/16 06:00 Plt Count 182 K/MM3 (134-434) 08/17/16 06:00 MPV 8.9 fl (7.5-11.1) 08/17/16 06:00 CMP Sodium 139 mmol/L (136-145) 08/17/16 06:00 Potassium 3.7 mmol/L (3.5-5.1) 08/17/16 06:00 Chloride 100 mmol/L (98-107) 08/17/16 06:00 Carbon Dioxide 32 mmol/L (21-32) 08/17/16 06:00 Anion Gap 7 (8-16) L 08/17/16 06:00 BUN 35 mg/dL (7-18) H 08/17/16 06:00 Creatinine 1.5 mg/dL (0.7-1.3) H 08/17/16 06:00 Creat Clearance w eGFR 47.58 (>60) 08/17/16 06:00 Random Glucose 237 mg/dL (74-106) H D 08/17/16 06:00 Calcium 8.6 mg/dL (8.5-10.1) 08/17/16 06:00 Total Bilirubin 0.9 mg/dL (0.2-1.0) 08/17/16 06:00 AST 59 U/L (15-37) H 08/17/16 06:00 ALT 57 U/L (12-78) 08/17/16 06:00 Alkaline Phosphatase 755 U/L (45-117) H 08/17/16 06:00 Total Protein 6.5 g/dl (6.4-8.2) 08/17/16 06:00 Albumin 2.4 g/dl (3.4-5.0) L 08/17/16 06:00 CARDIAC ENZYMES Creatine Kinase 124 IU/L (39-308) 08/08/16 21:35 Troponin I 0.05 ng/ml (0.00-0.05) 08/09/16 11:15 Current Medications Generic Name Dose Route Start Last Admin Trade Name Freq PRN Reason Stop Dose Admin Acetaminophen 650 mg 08/13/16 18:29 08/14/16 02:14 Tylenol - PO 650 mg Q6H PRN Administration FEVER Allopurinol 100 mg 08/11/16 10:00 08/17/16 09:26 Zyloprim - PO 100 mg DAILY [facility] Administration Atorvastatin Calcium 40 mg 08/11/16 22:00 08/17/16 21:18 Lipitor - PO 40 mg HS [facility] Administration Carvedilol 6.25 mg 08/11/16 10:00 08/17/16 21:17 Coreg - PO 6.25 mg BID [facility] Administration Cholecalciferol 400 unit 08/11/16 10:00 08/17/16 09:26 Vitamin D3 - PO 400 unit DAILY [facility] Administration Diphenhydramine HCl 25 mg 08/17/16 22:00 08/17/16 21:17 Benadryl - PO 25 mg HS [facility] Administration Fluoxetine HCl 40 mg 08/11/16 22:00 08/17/16 21:18 Prozac - PO 40 mg HS [facility] Administration Gabapentin 100 mg 08/14/16 17:15 08/17/16 09:27 Neurontin - PO 100 mg DAILY [facility] Administration Cefazolin Sodium/Dextrose 50 mls @ 100 mls/hr 08/17/16 02:45 08/17/16 17:41 Ancef 2 Gm Premixed Ivpb - IVPB 100 mls/hr Q8H-IV [facility] Administration Insulin Aspart 1 vial 08/16/16 09:22 08/17/16 17:33 Novolog Vial Sliding Scale - SQ 3 units TIDAC [facility] Administration Protocol Insulin Detemir 70 units 08/18/16 07:00 Levemir Vial SQ AM [facility] Lorazepam 0.5 mg 08/11/16 22:00 08/17/16 21:17 Ativan - PO 0.5 mg HS [facility] Administration Losartan Potassium 25 mg 08/11/16 12:30 08/17/16 09:26 Cozaar - PO 25 mg DAILY [facility] Administration Mupirocin 1 applic 08/16/16 22:00 08/17/16 21:17 Bactroban 2% Ointment - TP 1 gm BID [facility] Administration Pantoprazole Sodium 40 mg 08/17/16 10:00 08/17/16 09:26 Protonix - PO 40 mg DAILY [facility] Administration Potassium Chloride 20 meq 08/13/16 10:00 08/17/16 09:26 Potassium Chloride Oral Liquid PO 20 meq DAILY [facility] Administration Ranitidine HCl 150 mg 08/11/16 07:00 08/17/16 06:45 Zantac - PO 150 mg AM [facility] Administration Rivaroxaban 20 mg 08/11/16 10:00 08/17/16 09:26 Xarelto - PO 20 mg DAILY [facility] Administration Senna/Docusate Sodium 2 tablet 08/11/16 22:00 08/17/16 21:18 Pericolace - PO 2 tablet HS [facility] Administration Tamsulosin HCl 0.4 mg 08/11/16 08:30 08/17/16 09:26 Flomax - PO 0.4 mg DAILY@0830 [facility] Administration Torsemide 200 mg 08/11/16 10:00 08/17/16 09:27 Demadex - PO 200 mg DAILY [facility] Administration Home Medications Medication Instructions Recorded Acetaminophen with Codeine 1 each PO Q4HWA PRN 06/24/16 [Acetaminophen-Cod #3 Tablet] Allopurinol [Zyloprim -] 100 mg PO BID 06/24/16 Aspirin [ASA -] 81 mg PO AM 06/24/16 Atorvastatin Calcium 40 mg PO HS 06/24/16 Carvedilol [Coreg -] 6.25 mg PO BID 06/24/16 Cholecalciferol (Vitamin D3) 1,000 mg PO DAILY 06/24/16 [Vitamin D -] Colchicine 0.6 mg PO DAILY 06/24/16 Famotidine/Ca Carb/Mag Hydrox 1 each PO AM 06/24/16 [Pepcid Complete Tablet Chew] Fluoxetine HCl [Prozac] 40 mg PO HS 06/24/16 Insulin (Levemir) [Levemir Vial] 70 unit SQ AM 06/24/16 Insulin Regular, Human [Humulin R 15 - 20 unit SQ AC 06/24/16 U-500 Kwikpen] Ipratropium/Albuterol Sulfate 3 ml IH DAILY PRN 06/24/16 [Iprat-Albut 0.5-3(2.5) mg/3 ml] Liraglutide [Victoza -] 1.8 mg SQ DAILY@0700 06/24/16 Lorazepam 0.5 mg PO HS 06/24/16 Oxycodone HCl/Acetaminophen 1 each PO Q6H PRN 06/24/16 [Oxycodone-Acetaminophen 5-325] Rivaroxaban [Xarelto -] 15 mg PO DAILY 06/24/16 Sennosides/Docusate Sodium [Senna 8.6 mg PO HS 06/24/16 Laxative Tablet] Tamsulosin HCl [Flomax -] 0.4 mg PO DAILY 06/24/16 Torsemide 100 mg PO BID 06/24/16 Trazodone HCl 100 mg PO HS 06/24/16 CT of abd /pelvis with no abscess , but L shoulder with large effusion which could be septic, positive for infiltrate ASSESSMENT AND PLAN: 61 y/o man with h/o ICM , CKD , S CHF , CABG, s/p cardiac arrest , R LE DVT , and DM who presented with SOB and not feeling well and was found to have sepsis 2/2 UTI and bacteremia # E.Coli bacteremia due to UTI , continue IV antibiotic sensitive to Ancef :s/p sepsis #DM better controlled now , on levemir to 70units daily , SSI # Acute Systolic CHF : on demadex continue, cont coreg, Off ASA while on xarelto. # h/o Afib : cont xarelto CKD : base line Cr 1.7-2. monitor DVT Px: Xarelto
[2016-08-18] MEDS: CEFAZOLIN 2 GM/D5W 50 ML IVPB SCH ×3 (01:45→17:25)
[2016-08-18] MEDS: INSULIN DETEMIR 100 UNITS/ML MDV SQ SCH (06:45)
[2016-08-18] MEDS: INSULIN SLIDING SCALE (NOVOLOG) 1 VIAL SQ SCH ×3 (06:45→17:26)
[2016-08-18] MEDS: RANITIDINE HCL 150 MG TABLET (FP) PO SCH (06:46)
[2016-08-18] MEDS ORDERED: INSULIN (NOVOLOG) ASPART 100 UNITS/ML 10ML VIAL ONE (07:06)
--- NOTE | 2016-08-18 08:10 | PN ---
Physical Exam: Internal Medicine Validation Software Facilitator Note SUBJECTIVE: Patient seen and examined this AM. Patient has no complains, endorses no fever chills, SOB, CP. Patient did complain of back pain last night and received a dose of Oxycodone 5mg. Nurse stated that postvoid bladder scan was done, revealed 124mL of urine. OBJECTIVE: Vital Signs Period Temp Pulse Resp BP Sys/Mcconnell Pulse Ox Last 24 Hr 98 F-99.0 F 72-83 16-18 105-140/51-72 93-93 GENERAL: The patient is awake, alert, and fully oriented, in no acute distress. Patient is hard of hearing, wears hearing aisd EYES: PERRL, extraocular movements intact . LUNGS: Breath sounds equal, clear to auscultation bilaterally, no wheezes, no crackles, no accessory muscle use. HEART: Regular rate and rhythm, S1, S2 without murmur, rub or gallop. 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 NEUROLOGICAL: AAOx3, no facial droop. Cranial nerves II through XII grossly intact. Normal speech, gait not observed. Laboratory Results - last 24 hr 08/17/16 08/17/16 08/17/16 06:00 12:09 17:31 Sodium 139 Potassium 3.7 Chloride 100 Carbon Dioxide 32 Anion Gap 7 L BUN 35 H Creatinine 1.5 H Creat Clearance w eGFR 47.58 POC Glucometer 380 192 Random Glucose 237 H D Calcium 8.6 Total Bilirubin 0.9 AST 59 H ALT 57 Alkaline Phosphatase 755 H Total Protein 6.5 Albumin 2.4 L 08/18/16 06:41 Sodium Potassium Chloride Carbon Dioxide Anion Gap BUN Creatinine Creat Clearance w eGFR POC Glucometer 153 Random Glucose Calcium Total Bilirubin AST ALT Alkaline Phosphatase Total Protein Albumin Active Medications Generic Name Dose Route Start Last Admin Trade Name Freq PRN Reason Stop Dose Admin Acetaminophen 650 mg 08/13/16 18:29 08/14/16 02:14 Tylenol - PO 650 mg Q6H PRN Administration FEVER Allopurinol 100 mg 08/11/16 10:00 08/17/16 09:26 Zyloprim - PO 100 mg DAILY [facility] Administration Atorvastatin Calcium 40 mg 08/11/16 22:00 08/17/16 21:18 Lipitor - PO 40 mg HS [facility]EN Administration Carvedilol 6.25 mg 08/11/16 10:00 08/17/16 21:17 Coreg - PO 6.25 mg BID MAGEN Administration Cholecalciferol 400 unit 08/11/16 10:00 08/17/16 09:26 Vitamin D3 - PO 400 unit DAILY [facility] Administration Diphenhydramine HCl 25 mg 08/17/16 22:00 08/17/16 21:17 Benadryl - PO 25 mg HS [facility] Administration Fluoxetine HCl 40 mg 08/11/16 22:00 08/17/16 21:18 Prozac - PO 40 mg HS [facility] Administration Gabapentin 100 mg 08/14/16 17:15 08/17/16 09:27 Neurontin - PO 100 mg DAILY [facility] Administration Cefazolin Sodium/Dextrose 50 mls @ 100 mls/hr 08/17/16 02:45 08/18/16 01:45 Ancef 2 Gm Premixed Ivpb - IVPB 100 mls/hr Q8H-IV [facility] Administration Insulin Aspart 1 vial 08/16/16 09:22 08/18/16 06:45 Novolog Vial Sliding Scale - SQ 3 units TIDAC [facility] Administration Protocol Insulin Detemir 70 units 08/18/16 07:00 08/18/16 06:45 Levemir Vial SQ 70 unit AM [facility] Administration Lorazepam 0.5 mg 08/11/16 22:00 08/17/16 21:17 Ativan - PO 0.5 mg HS [facility]EN Administration Losartan Potassium 25 mg 08/11/16 12:30 08/17/16 09:26 Cozaar - PO 25 mg DAILY [facility] Administration Mupirocin 1 applic 08/16/16 22:00 08/17/16 21:17 Bactroban 2% Ointment - TP 1 gm BID [facility] Administration Oxycodone HCl 5 mg 08/18/16 03:14 Roxicodone - PO Q4H PRN PAIN Pantoprazole Sodium 40 mg 08/17/16 10:00 08/17/16 09:26 Protonix - PO 40 mg DAILY [facility] Administration Potassium Chloride 20 meq 08/13/16 10:00 08/17/16 09:26 Potassium Chloride Oral Liquid PO 20 meq DAILY [facility] Administration Ranitidine HCl 150 mg 08/11/16 07:00 08/18/16 06:46 Zantac - PO 150 mg AM [facility] Administration Rivaroxaban 20 mg 08/11/16 10:00 08/17/16 09:26 Xarelto - PO 20 mg DAILY [facility] Administration Senna/Docusate Sodium 2 tablet 08/11/16 22:00 08/17/16 21:18 Pericolace - PO 2 tablet HS [facility] Administration Tamsulosin HCl 0.4 mg 08/11/16 08:30 08/17/16 09:26 Flomax - PO 0.4 mg DAILY@0830 [facility] Administration Torsemide 200 mg 08/11/16 10:00 08/17/16 09:27 Demadex - PO 200 mg DAILY [facility] Administration ASSESSMENT/PLAN: 61 y/o male with history of systolic CHF, DM, Ischemic CM, Afib/DVT, CKD who presented with sepsis and SOB found to be septic 2/2 UTI # Sepsis with persistent bacteremia - resolved - Patient initially presented with fever, tachycardia, with likely source of infection - Patients complaint of dysuria, prompting UA which was positive - Patient was started on empiric Zosyn 2.25mg Q8 IV (renal dosing) and Vancomycin 1250mg IV QD - Urine cultures and Blood cultures on admission both grew E.coli, antibiotics were de-escalated to Cefazolin due to S/S. Patient was on Cefazolin for 4 days - On 08/12 night patient spiked fever (Tmax 102.8) with tachycardia (HR 99) and WBC trending up (8.0 --> 10.4) prompting new Blood cultures to be drawn and antibiotic escalation to Meropenem 1g Q8 IV - New blood cultures grew same organism E.coli - Possible new sources include renal abscess (ruled out from Renal US and CT abd ), shoulder abscess vs osteo (CT shoulder shows L shoulder effusion s/p drainage and culture pending), or Defibrillator pocket infection (ruled out with CT chest) - Patient new has new onset back pain since admission, CT lumbar spine ordered without evidence of infection - Antibiotics de-escalated back to Cefazolin 2g Q8H, on Day 2 - ID on board, considering dc with PICC line - Post void bladder scan is 124mL, static urine could have builded up bacteria and seeded into blood twice. Patient does have enlarged prostate, does endorse chronic urgency adn frequency # Poorly controlled Diabetes Mellitus - Hgb A1c 10.5 this admission, on Levemir 70QD and Victoza at home - Due to episode of hypoglycemia, patient was switched to 50 and titrated up to 60 --> 65 --> 70, AM sugars now 153 - Continue Sliding scale insulin - Neuropathic pain during hospitalization, started Gabapentin 100mg QD as DM is poorly controlled. Temporarily relieved by Benedryl, so started patient on Benedryl 25mg QHS #L 3rd Toe Nail Bed Ulcer - Podiatry on board, excisional debridement of L third toe done at bedside with scissors, no deep pus or ulcer noted - Given rx for bactroban and DSD daily to toe - XR L foot showed no signs of osteomyelitis # Acute Systolic CHF - Patient clinically looks euvolemic - Continue torsamide 200mg PO QD and carvedilol 6.25 mg PO BID - Patient is not on Aspirin because he is on Xarelto # H/o Atrial Fibrillation - Continue Xarelto 20mg PO QD #H/o COPD on home oxygen 3L NC RTC - Continue patient on 2L NC - As per Pulmonary reccs keep O2 sat >95 - Continue duoneb Q4 PRN - Check pre/post exercise O2 to assess need for home O2 #H/o Gout -Continue allopurinol 100mg PO QD -Patient is on BID dose at home, decreased due to MARCIAL #H/o Depression -Continue fluoxetine 40mg PO QD # CKD - Patient's Baseline Cr is 1.7 - 2.0 - Current Cr is 1.5. #L Shoulder RTC Tear - Chronic - F/u with Ortho Dr. Cisneros as outpatient #Pulmonary Nodules - Found incidentally on Chest CT - F/u as outpatient # FEN: - Not on IV fluids. - Electrolytes to be repeated tomorrow - Diabetic diet # Prophylaxis - For DVT: Already on Xarelto - For GI: Protonix 40mg QD, as per cardio reccs # Code Status - Full Code Visit type - Emergency Visit Emergency Visit: No - New Patient This patient is new to me today: No - Critical Care Critical Care patient: No - Discharge Referral Referred to [facility] Med P.C.: No
[2016-08-18] MEDS: TAMSULOSIN HCL 0.4 MG CAP.ER.24H (FP) PO SCH (08:32)
[2016-08-18] MEDS: oxyCODONE HCL 5 MG TABLET PO PRN (08:41)
[2016-08-18 09:09] LABS: ANION GAP 9 (8-16); CALCIUM 8.8 mg/dL (8.5-10.1); CO2 33 mmol/L (21-32); CREATININE 1.5 mg/dL (0.7-1.3); GLUCOSE,RANDOM 148 mg/dL (74-106)
[2016-08-18] MEDS ORDERED: PT OWN MED DRAWER 7, Y5N ONE (09:52)
[2016-08-18] MEDS: GABAPENTIN 100 MG CAPSULE (FP) PO SCH (09:57)
[2016-08-18] MEDS: ALLOPURINOL 100 MG TABLET (FP) PO SCH (09:57)
[2016-08-18] MEDS: CHOLECALCIFEROL (VITAMIN D3) 400 UNIT TABLET (FP) PO SCH (09:57)
[2016-08-18] MEDS: RIVAROXABAN 20 MG TABLET PO SCH (09:57)
[2016-08-18] MEDS: CARVEDILOL 6.25 MG TABLET (FP) PO SCH ×2 (09:57→21:10)
[2016-08-18] MEDS: LOSARTAN POTASSIUM 25 MG TABLET PO SCH (09:57)
[2016-08-18] MEDS: PANTOPRAZOLE 40 MG TABLET (FP) PO SCH (09:58)
[2016-08-18] MEDS: MUPIROCIN 2% TOPICAL OINTMENT 22 GM TUBE TP SCH ×2 (09:58→21:10)
[2016-08-18] MEDS: TORSEMIDE 100 MG TABLET PO SCH (09:58)
[2016-08-18] MEDS: POTASSIUM CHLORIDE ORAL LIQUID 20 MEQ/15 ML PO SCH (09:58)
--- NOTE | 2016-08-18 10:25 | PN ---
Physical Exam: SUBJECTIVE: Patient seen and examined. Says he feels much better but feels short of breath when walking. He denies fever, chills, rigors, and cough. OBJECTIVE: Vital Signs Period Temp Pulse Resp BP Sys/Mcconnell Pulse Ox Last 24 Hr 98.9 F-99.0 F 72-78 16-18 105-140/51-72 93 GENERAL: The patient is awake, alert, and fully oriented, in no acute distress. HEAD: Normal with no signs of trauma. ENT: Ears normal, nares patent, oropharynx clear without exudates, moist mucous membranes. NECK: Trachea midline, full range of motion, supple. LUNGS: Breath sounds equal, clear to auscultation bilaterally, no wheezes, no crackles, no accessory muscle use. HEART: Regular rate and rhythm, S1, S2 without murmur, rub or gallop. ABDOMEN: Soft, nontender, nondistended, normoactive bowel sounds, no guarding, no rebound, no hepatosplenomegaly, no masses. EXTREMITIES:warm, well-perfused PSYCH: Normal mood, normal affect. SKIN: Warm, dry, normal turgor, no rashes or lesions noted Laboratory Results - last 24 hr 08/17/16 08/17/16 08/18/16 12:09 17:31 06:41 Sodium Potassium Chloride Carbon Dioxide Anion Gap BUN Creatinine POC Glucometer 380 192 153 Random Glucose Calcium GGT 08/18/16 07:05 Sodium 140 Potassium 3.4 L Chloride 98 Carbon Dioxide 33 H Anion Gap 9 BUN 38 H Creatinine 1.5 H POC Glucometer Random Glucose 148 H D Calcium 8.8 GGT 565 H Active Medications Generic Name Dose Route Start Last Admin Trade Name Freq PRN Reason Stop Dose Admin Acetaminophen 650 mg 08/13/16 18:29 08/14/16 02:14 Tylenol - PO 650 mg Q6H PRN Administration FEVER Allopurinol 100 mg 08/11/16 10:00 08/18/16 09:57 Zyloprim - PO 100 mg DAILY MAGEN Administration Atorvastatin Calcium 40 mg 08/11/16 22:00 08/17/16 21:18 Lipitor - PO 40 mg HS MAGEN Administration Carvedilol 6.25 mg 08/11/16 10:00 08/18/16 09:57 Coreg - PO 6.25 mg BID MAGEN Administration Cholecalciferol 400 unit 08/11/16 10:00 08/18/16 09:57 Vitamin D3 - PO 400 unit DAILY [facility] Administration Diphenhydramine HCl 25 mg 08/17/16 22:00 08/17/16 21:17 Benadryl - PO 25 mg HS MAGEN Administration Fluoxetine HCl 40 mg 08/11/16 22:00 08/17/16 21:18 Prozac - PO 40 mg HS MAGEN Administration Gabapentin 100 mg 08/14/16 17:15 08/18/16 09:57 Neurontin - PO 100 mg DAILY [facility] Administration Cefazolin Sodium/Dextrose 50 mls @ 100 mls/hr 08/17/16 02:45 08/18/16 09:59 Ancef 2 Gm Premixed Ivpb - IVPB 100 mls/hr Q8H-IV [facility] Administration Insulin Aspart 1 vial 08/16/16 09:22 08/18/16 06:45 Novolog Vial Sliding Scale - SQ 3 units TIDAC MAG[facility] Administration Protocol Insulin Detemir 70 units 08/18/16 07:00 08/18/16 06:45 Levemir Vial SQ 70 unit AM [facility]EN Administration Lorazepam 0.5 mg 08/11/16 22:00 08/17/16 21:17 Ativan - PO 0.5 mg HS MAGEN Administration Losartan Potassium 25 mg 08/11/16 12:30 08/18/16 09:57 Cozaar - PO 25 mg DAILY [facility] Administration Mupirocin 1 applic 08/16/16 22:00 08/18/16 09:58 Bactroban 2% Ointment - TP 1 gm BID MAGEN Administration Oxycodone HCl 5 mg 08/18/16 03:14 08/18/16 08:41 Roxicodone - PO 5 mg Q4H PRN Administration PAIN Pantoprazole Sodium 40 mg 08/17/16 10:00 08/18/16 09:58 Protonix - PO 40 mg DAILY MAG[facility] Administration Potassium Chloride 20 meq 08/13/16 10:00 08/18/16 09:58 Potassium Chloride Oral Liquid PO 20 meq DAILY [facility] Administration Ranitidine HCl 150 mg 08/11/16 07:00 08/18/16 06:46 Zantac - PO 150 mg AM [facility] Administration Rivaroxaban 20 mg 08/11/16 10:00 08/18/16 09:57 Xarelto - PO 20 mg DAILY [facility] Administration Senna/Docusate Sodium 2 tablet 08/11/16 22:00 08/17/16 21:18 Pericolace - PO 2 tablet HS MAGEN Administration Tamsulosin HCl 0.4 mg 08/11/16 08:30 08/18/16 08:32 Flomax - PO 0.4 mg DAILY@0830 [facility] Administration Torsemide 200 mg 08/11/16 10:00 08/18/16 09:58 Demadex - PO 200 mg DAILY [facility]EN Administration ASSESSMENT/PLAN: UTI E coli bactermia LV systolic dysfunction A-Fib COPD A-fib DM Continue Antibiotics Continue 2L NC Keep O2 sat >95 continue duoneb q4 prn continue anticoagulation check pre/post exercise O2 to assess need for home O2 Rate control
--- NOTE | 2016-08-18 11:50 | PN ---
Progress Note, Physician History of Present Illness: Tolerating PT with walker assistance, not dyspneic, afebrile. - Current Medication List Current Medications: Active Medications Acetaminophen (Tylenol -) 650 mg PO Q6H PRN PRN Reason: FEVER Last Admin: 08/14/16 02:14 Dose: 650 mg Allopurinol (Zyloprim -) 100 mg PO DAILY [facility] Last Admin: 08/18/16 09:57 Dose: 100 mg Atorvastatin Calcium (Lipitor -) 40 mg PO HS [facility] Last Admin: 08/17/16 21:18 Dose: 40 mg Carvedilol (Coreg -) 6.25 mg PO BID [facility] Last Admin: 08/18/16 09:57 Dose: 6.25 mg Cholecalciferol (Vitamin D3 -) 400 unit PO DAILY [facility] Last Admin: 08/18/16 09:57 Dose: 400 unit Diphenhydramine HCl (Benadryl -) 25 mg PO HS [facility] Last Admin: 08/17/16 21:17 Dose: 25 mg Fluoxetine HCl (Prozac -) 40 mg PO HS [facility] Last Admin: 08/17/16 21:18 Dose: 40 mg Gabapentin (Neurontin -) 100 mg PO DAILY [facility] Last Admin: 08/18/16 09:57 Dose: 100 mg Cefazolin Sodium/Dextrose (Ancef 2 Gm Premixed Ivpb -) 50 mls @ 100 mls/hr IVPB Q8H-IV [facility] Last Admin: 08/18/16 09:59 Dose: 100 mls/hr Insulin Aspart (Novolog Vial Sliding Scale -) 1 vial SQ TIDAC [facility] PRN Reason: Protocol Last Admin: 08/18/16 06:45 Dose: 3 units Insulin Detemir (Levemir Vial) 70 units SQ AM [facility] Last Admin: 08/18/16 06:45 Dose: 70 unit Lorazepam (Ativan -) 0.5 mg PO HS [facility] Last Admin: 08/17/16 21:17 Dose: 0.5 mg Losartan Potassium (Cozaar -) 25 mg PO DAILY [facility] Last Admin: 08/18/16 09:57 Dose: 25 mg Mupirocin (Bactroban 2% Ointment -) 1 applic TP BID [facility] Last Admin: 08/18/16 09:58 Dose: 1 gm Oxycodone HCl (Roxicodone -) 5 mg PO Q4H PRN PRN Reason: PAIN Last Admin: 08/18/16 08:41 Dose: 5 mg Pantoprazole Sodium (Protonix -) 40 mg PO DAILY [facility] Last Admin: 08/18/16 09:58 Dose: 40 mg Potassium Chloride (Potassium Chloride Oral Liquid) 20 meq PO DAILY [facility] Last Admin: 08/18/16 09:58 Dose: 20 meq Ranitidine HCl (Zantac -) 150 mg PO AM [facility] Last Admin: 08/18/16 06:46 Dose: 150 mg Rivaroxaban (Xarelto -) 20 mg PO DAILY [facility] Last Admin: 08/18/16 09:57 Dose: 20 mg Senna/Docusate Sodium (Pericolace -) 2 tablet PO HS [facility] Last Admin: 08/17/16 21:18 Dose: 2 tablet Tamsulosin HCl (Flomax -) 0.4 mg PO DAILY@0830 [facility] Last Admin: 08/18/16 08:32 Dose: 0.4 mg Torsemide (Demadex -) 200 mg PO DAILY [facility] Last Admin: 08/18/16 09:58 Dose: 200 mg - Objective Vital Signs: Vital Signs Temperature 99.3 F 08/18/16 09:00 Pulse Rate 86 08/18/16 09:00 Respiratory Rate 18 08/18/16 09:00 Blood Pressure 140/54 08/18/16 09:00 O2 Sat by Pulse Oximetry (%) 93 L 08/17/16 21:00 Constitutional: Yes: No Distress, Calm Neck: Yes: Supple Cardiovascular: Yes: Regular Rate and Rhythm Respiratory: Yes: Regular, Diminished Gastrointestinal: Yes: Normal Bowel Sounds, Soft, Abdomen, Obese Edema: Yes Edema: LLE: Trace, RLE: Trace Labs: CBC, BMP 08/18/16 07:05 INR, PTT INR 1.62 (0.82-1.09) H 08/08/16 21:35 Problem List - Problems (1) Diabetes mellitus Code(s): E11.9 - TYPE 2 DIABETES MELLITUS WITHOUT COMPLICATIONS Qualifiers: Diabetes mellitus type: type 2 Diabetes mellitus complication status: with kidney complications Diabetes mellitus complication detail: with chronic kidney disease Diabetes mellitus senior living insulin use: with senior living use Chronic kidney disease stage: stage 4 (severe) Qualified Code(s): E11.22 - Type 2 diabetes mellitus with diabetic chronic kidney disease ; N18.1 - Chronic kidney disease, stage 1; Z79.4 - detention (current) use of insulin (2) Sepsis Code(s): A41.9 - SEPSIS, UNSPECIFIED ORGANISM Qualifiers: Sepsis type: sepsis due to unspecified organism Qualified Code(s): A41.9 - Sepsis, unspecified organism (3) UTI (urinary tract infection) Code(s): N39.0 - URINARY TRACT INFECTION, SITE NOT SPECIFIED Qualifiers: Urinary tract infection type: site unspecified Hematuria presence: without hematuria Qualified Code(s): N39.0 - Urinary tract infection, site not specified (4) Acute on chronic systolic and diastolic heart failure, NYHA class 4 Code(s): I50.43 - ACUTE ON CHRONIC COMBINED SYSTOLIC AND DIASTOLIC HRT FAIL (5) COPD (chronic obstructive pulmonary disease) Code(s): J44.9 - CHRONIC OBSTRUCTIVE PULMONARY DISEASE, UNSPECIFIED Qualifiers : COPD type: chronic bronchitis (6) DVT prophylaxis Code(s): WRQ5239 - (7) Hx of CABG Code(s): Z95.1 - PRESENCE OF AORTOCORONARY BYPASS GRAFT (8) Ischemic cardiomyopathy Code(s): I25.5 - ISCHEMIC CARDIOMYOPATHY (9) Morbid obesity Code(s): E66.01 - MORBID (SEVERE) OBESITY DUE TO EXCESS CALORIES Qualifiers: Obesity type: due to excess calories Qualified Code(s): E66.01 - Morbid (severe) obesity due to excess calories (10) Poor compliance Code(s): Z91.19 - PATIENT'S NONCOMPLIANCE W OTH MEDICAL TREATMENT AND REGIMEN (11) S/P CABG (coronary artery bypass graft) Code(s): Z95.1 - PRESENCE OF AORTOCORONARY BYPASS GRAFT (12) Severe left ventricular systolic dysfunction Code(s): I51.9 - HEART DISEASE, UNSPECIFIED (13) Single implantable cardioverter-defibrillator (ICD) in situ Code(s): Z95.810 - PRESENCE OF AUTOMATIC (IMPLANTABLE) CARDIAC DEFIBRILLATOR (14) Tobacco abuse Code(s): Z72.0 - TOBACCO USE (15) ASHD (arteriosclerotic heart disease) Code(s): I25.10 - ATHSCL HEART DISEASE OF [place] CORONARY ARTERY W/O ANG PCTRS (16) Diabetes mellitus, insulin dependent (IDDM), uncontrolled Code(s): E10.65 - TYPE 1 DIABETES MELLITUS WITH HYPERGLYCEMIA Qualifiers: Diabetes mellitus complication detail: with polyneuropathy (17) Obstructive sleep apnea of adult Code(s): G47.33 - OBSTRUCTIVE SLEEP APNEA (ADULT) (PEDIATRIC) Assessment/Plan 08/14/2016 Echo: Severely decreased LV fxn, mod-severe decrease RV fxn, Tr-mild MR , tr TR 1. Chronic LV systolic failure with NYHA classification 3-4 heart failure with ischemic cardiomyopathy with pulm HTN 2. Urosepsis with aleman-sensitive E. coli bacteremia, PNA, h/o MRSA 3. CAD S/P CABG, angina pectoris 4. History of cardiac arrest S/P ICD 5. Chronic hypoxic respiratory failure with home O2 dependent COPD and pulmonary nodules 6. Type 2 diabetes mellitus 7. CVA 8. Acute on CKD resolved (now at baseline Cr 1.4-1.5) 9. Morbid obesity 10. History of RLE DVT 11. Persistent atrial fibrillation on NOAC 12. OSAS noncompliant with cpap PLAN: 1. Continue Demadex 200 qd with monitor diuretic response, renal fxn and electrolytes, replete K, Mg as you are 2. Complete Ancef course per C&S 3. Continue Carvedilol 6.25 bid, Atorvastatin 40 qhs and Xarelto 20 qPM 4. Continue losartan 25 qd as renal fxn has stabilized 5. GI prophylaxis, cpap nightly 6. Chest CT results show left upper and lower lobe pulm infiltrates, for repeat as outpatient, f/u shoulder joint aspirate
[2016-08-18 12:16] LABS: MCH 30.2 pg (25.7-33.7); MEAN CELL VOLUME 91.5 fl (80-96); MEAN PLT VOLUME 8.9 fl (7.5-11.1); PLATELET COUNT 195 K/MM3 (134-434); RDW 17.8 % (11.9-15.9); WHITE BLOOD COUNT 10.4 K/mm3 (4.0-10.0)
--- NOTE | 2016-08-18 12:35 | PN ---
Progress Note (short form) - Note Progress Note: feels well no further fevers Vital Signs Period Temp Pulse Resp BP Sys/Mcconnell Pulse Ox Last 24 Hr 98.9 F-99.3 F 72-86 16-18 105-140/51-72 93 cor-rrr lungs clear abd soft,nt ext venous stasis CBC, BMP 08/18/16 06:40 08/18/16 07:05 alk phos 755 GGT- 565 Microbiology 08/15/16 15:45 Synovial Fluid - Shoulder Anaerobic Culture - Final NO ANAEROBES WERE ISOLATED 08/15/16 06:10 Blood - Peripheral Venous Blood Culture - Preliminary NO GROWTH OBTAINED AFTER 72 HOURS, INCUBATION TO CONTINUE FOR 2 DAYS. 08/15/16 06:10 Blood - Peripheral Venous Blood Culture - Preliminary NO GROWTH OBTAINED AFTER 72 HOURS, INCUBATION TO CONTINUE FOR 2 DAYS. 08/13/16 08:00 Blood - Peripheral Venous Blood Culture - Final Escherichia Coli 08/13/16 08:00 Blood - Peripheral Venous Blood Culture - Final Escherichia Coli 08/10/16 05:50 Blood - Peripheral Venous Blood Culture - Final NO GROWTH AFTER 5 DAYS INCUBATION 08/10/16 05:50 Blood - Peripheral Venous Blood Culture - Final NO GROWTH AFTER 5 DAYS INCUBATION 08/09/16 02:45 Urine - Urine Clean Catch Urine Culture - Final Escherichia Coli 08/08/16 16:40 Blood - Peripheral Venous Blood Culture - Final Escherichia Coli 08/08/16 16:40 Blood - Peripheral Venous Blood Culture - Final Escherichia Coli Current Medications Acetaminophen (Tylenol -) 650 mg PO Q6H PRN PRN Reason: FEVER Last Admin: 08/14/16 02:14 Dose: 650 mg Allopurinol (Zyloprim -) 100 mg PO DAILY [facility] Last Admin: 08/18/16 09:57 Dose: 100 mg Atorvastatin Calcium (Lipitor -) 40 mg PO HS [facility] Last Admin: 08/17/16 21:18 Dose: 40 mg Carvedilol (Coreg -) 6.25 mg PO BID [facility] Last Admin: 08/18/16 09:57 Dose: 6.25 mg Cholecalciferol (Vitamin D3 -) 400 unit PO DAILY [facility] Last Admin: 08/18/16 09:57 Dose: 400 unit Diphenhydramine HCl (Benadryl -) 25 mg PO HS [facility] Last Admin: 08/17/16 21:17 Dose: 25 mg Fluoxetine HCl (Prozac -) 40 mg PO HS [facility] Last Admin: 08/17/16 21:18 Dose: 40 mg Gabapentin (Neurontin -) 100 mg PO DAILY [facility] Last Admin: 08/18/16 09:57 Dose: 100 mg Cefazolin Sodium/Dextrose (Ancef 2 Gm Premixed Ivpb -) 50 mls @ 100 mls/hr IVPB Q8H-IV [facility] Last Admin: 08/18/16 09:59 Dose: 100 mls/hr Insulin Aspart (Novolog Vial Sliding Scale -) 1 vial SQ TIDAC [facility] PRN Reason: Protocol Last Admin: 08/18/16 12:09 Dose: 11 units Insulin Detemir (Levemir Vial) 70 units SQ AM [facility] Last Admin: 08/18/16 06:45 Dose: 70 unit Lorazepam (Ativan -) 0.5 mg PO HS [facility] Last Admin: 08/17/16 21:17 Dose: 0.5 mg Losartan Potassium (Cozaar -) 25 mg PO DAILY [facility] Last Admin: 08/18/16 09:57 Dose: 25 mg Mupirocin (Bactroban 2% Ointment -) 1 applic TP BID [facility] Last Admin: 08/18/16 09:58 Dose: 1 gm Oxycodone HCl (Roxicodone -) 5 mg PO Q4H PRN PRN Reason: PAIN Last Admin: 08/18/16 08:41 Dose: 5 mg Pantoprazole Sodium (Protonix -) 40 mg PO DAILY [facility] Last Admin: 08/18/16 09:58 Dose: 40 mg Potassium Chloride (Potassium Chloride Oral Liquid) 20 meq PO DAILY [facility] Last Admin: 08/18/16 09:58 Dose: 20 meq Ranitidine HCl (Zantac -) 150 mg PO AM [facility] Last Admin: 08/18/16 06:46 Dose: 150 mg Rivaroxaban (Xarelto -) 20 mg PO DAILY [facility] Last Admin: 08/18/16 09:57 Dose: 20 mg Senna/Docusate Sodium (Pericolace -) 2 tablet PO HS [facility] Last Admin: 08/17/16 21:18 Dose: 2 tablet Tamsulosin HCl (Flomax -) 0.4 mg PO DAILY@0830 [facility] Last Admin: 08/18/16 08:32 Dose: 0.4 mg Torsemide (Demadex -) 200 mg PO DAILY [facility] Last Admin: 08/18/16 09:58 Dose: 200 mg a/p recurrent ecoli bacteremia- ?source-continue ancef now day #5 s/p last positive blood culture rising alk phos, get GGT, consider GI evaluation , wbc scan ordered ?pneumonia-nodular infiltrates left lung awaiting results of shoulder fluid aspiration echo-has AICD-no MRI CAD-CHF- AICD DM poorly controlled hopefully out next week with PICC line -?snf
[2016-08-18] MEDS ORDERED: POTASSIUM CHLORIDE TABS 20 MEQ TABLET.ER (FP) PO ONE (14:31)
--- NOTE | 2016-08-18 16:08 | PN ---
Teaching Attending Note Name of Resident: Diane Wharton ATTENDING PHYSICIAN STATEMENT I saw and evaluated the patient. I reviewed the resident's note and discussed the case with the resident. I agree with the resident's findings and plan as documented. Mak AGUSTIN MD
--- NOTE | 2016-08-18 16:38 | CONSULT ---
Consultation: REQUESTING PROVIDER: CONSULT REQUEST: We have been asked to medically evaluate this patient for ( gastro). HISTORY OF PRESENT ILLNESS: This is a 61 year old male with a significant past medical history of systolic heart failure III-IV, CAD (s/p quadruple bypass), ICD, IDDM, COPD, CKD, hx LE DVT on Xarelto. Patient came to the emergency with fever and chills and shortness of breath. Diagnosed with UTI with E. Coli bacteremia. Patient was started IV antibiotics. Patient was found to have cirrhotic liver, gall bladder stone, elevated ggt and alk phos. Usg shows cbd size of 5mm. Patient Denies ed color stool, dark yellow urine, skin discoloration, yellow eyes. Denies weight loss. Denies loss of apatite. Denies pain abdomen, nausea, vomiting, diarrhoea. Patient states that he was diagnosed hep B in 1985 ( states happen due to pin prick). States he has enlarged prostate and has urinates many time in a day9 around 10 time and 2-3 time in night. Also states that he has pacemaker. Also has allergic to iodinated contrast, Use to smoke 3 packs a day but now smokes one pack 3 times a week. Denies alcohol and drugs REVIEW OF SYSTEMS: CONSTITUTIONAL: Absent: fever, chills, diaphoresis, generalized weakness, malaise, loss of appetite, weight change HEENT: Absent: rhinorrhea, nasal congestion, throat swelling, difficulty swallowing, CARDIOVASCULAR: Absent: chest pain, syncope, palpitations, RESPIRATORY: Absent: cough, shortness of breath, GASTROINTESTINAL: Absent: abdominal pain, abdominal distension, nausea, vomiting, diarrhea, constipation, melena, hematochezia GENITOURINARY: Absent: dysuria, frequency, urgency, hesitancy, hematuria, flank pain, genital pain PHYSICAL EXAMINATION Vital Signs - 24 hr 08/17/16 08/17/16 08/18/16 21:00 22:00 06:49 Temperature 99 F 98.9 F Pulse Rate 72 78 Respiratory 18 18 18 Rate Blood Pressure 140/72 122/69 O2 Sat by Pulse 93 L Oximetry (%) 08/18/16 09:00 Temperature 99.3 F Pulse Rate 86 Respiratory 18 Rate Blood Pressure 140/54 O2 Sat by Pulse Oximetry (%) GENERAL: Awake, alert, and fully oriented, in no acute distress. HEAD: Normal with no signs of trauma. EYES: Pupils equal, round and reactive to light, extraocular movements intact, sclera anicteric, conjunctiva clear. No lid lag. EARS, NOSE, THROAT: Ears normal, nares patent, oropharynx clear without exudates. Moist mucous membranes. NECK: Normal range of motion, supple without lymphadenopathy, JVD, or masses. LUNGS: Breath sounds equal, clear to auscultation bilaterally. No wheezes, and no crackles. No accessory muscle use. HEART: Regular rate and rhythm, normal S1 and S2 without murmur, rub or gallop. ABDOMEN: Soft, nontender, not distended, normoactive bowel sounds, no guarding, no rebound, no masses. No hepatomegaly or splenomegaly. MUSCULOSKELETAL: Normal range of motion at all joints. No bony deformities or tenderness. No CVA tenderness. UPPER EXTREMITIES: 2+ pulses, warm, well-perfused. No cyanosis. No clubbing. Cap refill <2 seconds. No peripheral edema. LOWER EXTREMITIES: 2+ pulses, warm, well-perfused. No calf tenderness. No peripheral edema. NEUROLOGICAL: Cranial nerves II-XII intact. Normal speech. Normal gait. PSYCHIATRIC: Cooperative. Good eye contact. Appropriate mood and affect. SKIN: Warm, dry, normal turgor, no rashes or lesions noted. Laboratory Results - last 24 hr 08/17/16 08/18/16 08/18/16 17:31 06:40 06:41 WBC 10.4 H RBC 3.76 L Hgb 11.3 L Hct 34.4 L MCV 91.5 MCHC 33.0 RDW 17.8 H Plt Count 195 MPV 8.9 Sodium Potassium Chloride Carbon Dioxide Anion Gap BUN Creatinine POC Glucometer 192 153 Random Glucose Calcium GGT 08/18/16 08/18/16 07:05 12:06 WBC RBC Hgb Hct MCV MCHC RDW Plt Count MPV Sodium 140 Potassium 3.4 L Chloride 98 Carbon Dioxide 33 H Anion Gap 9 BUN 38 H Creatinine 1.5 H POC Glucometer 351 Random Glucose 148 H D Calcium 8.8 GGT 565 H Active Medications Generic Name Dose Route Start Last Admin Trade Name Freq PRN Reason Stop Dose Admin Acetaminophen 650 mg 08/13/16 18:29 08/14/16 02:14 Tylenol - PO 650 mg Q6H PRN Administration FEVER Allopurinol 100 mg 08/11/16 10:00 08/18/16 09:57 Zyloprim - PO 100 mg DAILY MAGEN Administration Atorvastatin Calcium 40 mg 08/11/16 22:00 08/17/16 21:18 Lipitor - PO 40 mg HS MAGEN Administration Carvedilol 6.25 mg 08/11/16 10:00 08/18/16 09:57 Coreg - PO 6.25 mg BID MAGEN Administration Cholecalciferol 400 unit 08/11/16 10:00 08/18/16 09:57 Vitamin D3 - PO 400 unit DAILY MAGEN Administration Diphenhydramine HCl 25 mg 08/17/16 22:00 08/17/16 21:17 Benadryl - PO 25 mg HS MAGEN Administration Fluoxetine HCl 40 mg 08/11/16 22:00 08/17/16 21:18 Prozac - PO 40 mg HS MAGEN Administration Gabapentin 100 mg 08/14/16 17:15 08/18/16 09:57 Neurontin - PO 100 mg DAILY MAGEN Administration Cefazolin Sodium/Dextrose 50 mls @ 100 mls/hr 08/17/16 02:45 08/18/16 09:59 Ancef 2 Gm Premixed Ivpb - IVPB 100 mls/hr Q8H-IV MAGEN Administration Insulin Aspart 1 vial 08/16/16 09:22 08/18/16 12:09 Novolog Vial Sliding Scale - SQ 11 units TIDAC MAGEN Administration Protocol Insulin Detemir 70 units 08/18/16 07:00 08/18/16 06:45 Levemir Vial SQ 70 unit AM MAGEN Administration Lorazepam 0.5 mg 08/11/16 22:00 08/17/16 21:17 Ativan - PO 0.5 mg HS MAGEN Administration Losartan Potassium 25 mg 08/11/16 12:30 08/18/16 09:57 Cozaar - PO 25 mg DAILY MAGEN Administration Mupirocin 1 applic 08/16/16 22:00 08/18/16 09:58 Bactroban 2% Ointment - TP 1 gm BID MAGEN Administration Oxycodone HCl 5 mg 08/18/16 03:14 08/18/16 08:41 Roxicodone - PO 5 mg Q4H PRN Administration PAIN Pantoprazole Sodium 40 mg 08/17/16 10:00 08/18/16 09:58 Protonix - PO 40 mg DAILY MAGEN Administration Potassium Chloride 20 meq 08/13/16 10:00 08/18/16 09:58 Potassium Chloride Oral Liquid PO 20 meq DAILY MAGEN Administration Ranitidine HCl 150 mg 08/11/16 07:00 08/18/16 06:46 Zantac - PO 150 mg AM MAGEN Administration Rivaroxaban 20 mg 08/11/16 10:00 08/18/16 09:57 Xarelto - PO 20 mg DAILY MAGEN Administration Senna/Docusate Sodium 2 tablet 08/11/16 22:00 08/17/16 21:18 Pericolace - PO 2 tablet HS MAGEN Administration Tamsulosin HCl 0.4 mg 08/11/16 08:30 08/18/16 08:32 Flomax - PO 0.4 mg DAILY@0830 MAGEN Administration Torsemide 200 mg 08/11/16 10:00 08/18/16 09:58 Demadex - PO 200 mg DAILY MAGEN Administration ASSESSMENT/PLAN: 1. Chronic LV systolic failure with NYHA classification 3-4 heart failure with ischemic cardiomyopathy with pulm HTN 2. Urosepsis with bacteremia. 3. CAD S/P CABG, angina pectoris 4. History of cardiac arrest S/P ICD 5. Chronic hypoxic respiratory failure with home O2 dependent COPD and pulmonary nodules 6. Type 2 diabetes mellitus 7. CVA 8. Sudheer on ckd resolved (now at baseline Cr 1.4-1.5) 9. Morbid obesity 10. History of RLE DVT 11. Persistent atrial fibrillation on NOAC 12. OSAS 13 Liver cirrhosis with spleenomegaly. Plan: Patient has elevated alk phos with elevated ggt. CBD size on USG is 5mm and also has gall stone. Patient could have stone in cbd. Patient needs MRCP or HIDA scan. Patient has pacemaker so MRCP is contraindicated. Patient also states he is allergic to IV contrast but dont know what kind of allergic reaction he has with it. Last time he had allergic reaction 25 years ago and got benadryl for that. Monitor LFT. Get alpha feto protein in view of chronic h/o hep b. HIDA scan to r/o cholecystitis and cbd stone. Continue with antibiotics. Will screen for other potential source of cirrhosis. Monitor vitals. Will order fibrosure LOGAN. Dispo: We will continue to follow the patient. Thank you for this consultative opportunity. Visit type - Emergency Visit Emergency Visit: Yes ED Registration Date: 08/08/16 Care time: The patient presented to the Emergency Department on the above date and was hospitalized for further evaluation of their emergent condition. - New Patient This patient is new to me today: Yes Date on this admission: 08/18/16 - Critical Care Critical Care patient: No
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
[2016-08-18 18:54] LABS: ALBUMIN 2.6 g/dl (3.4-5.0); BILIRUBIN,DIRECT 0.4 mg/dL (0.0-0.2); BILIRUBIN,TOTAL 0.6 mg/dL (0.2-1.0); TOT PROT 6.4 g/dl (6.4-8.2)
--- NOTE | 2016-08-18 20:39 | PN ---
Teaching Attending Note Name of Resident: Juan José Carbajal ATTENDING PHYSICIAN STATEMENT I saw and evaluated the patient. I reviewed the resident's note and discussed the case with the resident. I agree with the resident's findings and plan as documented. SUBJECTIVE: Feeling better , no new complains OBJECTIVE: Vital Signs Temperature 99.6 F 08/18/16 16:10 Pulse Rate 89 08/18/16 16:10 Respiratory Rate 18 08/18/16 16:10 Blood Pressure 128/71 08/18/16 16:10 O2 Sat by Pulse Oximetry (%) 93 L 08/17/16 21:00 PE: per resident's note CBCD WBC 10.4 K/mm3 (4.0-10.0) H 08/18/16 06:40 RBC 3.76 M/mm3 (4.00-5.60) L 08/18/16 06:40 Hgb 11.3 GM/dL (11.7-16.9) L 08/18/16 06:40 Hct 34.4 % (35.4-49) L 08/18/16 06:40 MCV 91.5 fl (80-96) 08/18/16 06:40 MCHC 33.0 g/dl (32.0-35.9) 08/18/16 06:40 RDW 17.8 % (11.9-15.9) H 08/18/16 06:40 Plt Count 195 K/MM3 (134-434) 08/18/16 06:40 MPV 8.9 fl (7.5-11.1) 08/18/16 06:40 CMP Sodium 140 mmol/L (136-145) 08/18/16 07:05 Potassium 3.4 mmol/L (3.5-5.1) L 08/18/16 07:05 Chloride 98 mmol/L (98-107) 08/18/16 07:05 Carbon Dioxide 33 mmol/L (21-32) H 08/18/16 07:05 Anion Gap 9 (8-16) 08/18/16 07:05 BUN 38 mg/dL (7-18) H 08/18/16 07:05 Creatinine 1.5 mg/dL (0.7-1.3) H 08/18/16 07:05 Creat Clearance w eGFR 47.58 (>60) 08/17/16 06:00 Random Glucose 148 mg/dL (74-106) H D 08/18/16 07:05 Calcium 8.8 mg/dL (8.5-10.1) 08/18/16 07:05 Total Bilirubin 0.6 mg/dL (0.2-1.0) D 08/18/16 10:40 AST 63 U/L (15-37) H 08/18/16 10:40 ALT 60 U/L (12-78) 08/18/16 10:40 Alkaline Phosphatase 778 U/L (45-117) H 08/18/16 10:40 Total Protein 6.4 g/dl (6.4-8.2) 08/18/16 10:40 Albumin 2.6 g/dl (3.4-5.0) L 08/18/16 10:40 CARDIAC ENZYMES Creatine Kinase 124 IU/L (39-308) 08/08/16 21:35 Troponin I 0.05 ng/ml (0.00-0.05) 08/09/16 11:15 Current Medications Generic Name Dose Route Start Last Admin Trade Name Freq PRN Reason Stop Dose Admin Acetaminophen 650 mg 08/13/16 18:29 08/14/16 02:14 Tylenol - PO 650 mg Q6H PRN Administration FEVER Allopurinol 100 mg 08/11/16 10:00 08/18/16 09:57 Zyloprim - PO 100 mg DAILY MAGEN Administration Atorvastatin Calcium 40 mg 08/11/16 22:00 08/17/16 21:18 Lipitor - PO 40 mg HS MAGEN Administration Carvedilol 6.25 mg 08/11/16 10:00 08/18/16 09:57 Coreg - PO 6.25 mg BID MAGEN Administration Cholecalciferol 400 unit 08/11/16 10:00 08/18/16 09:57 Vitamin D3 - PO 400 unit DAILY MAGEN Administration Diphenhydramine HCl 25 mg 08/17/16 22:00 08/17/16 21:17 Benadryl - PO 25 mg HS MAGEN Administration Fluoxetine HCl 40 mg 08/11/16 22:00 08/17/16 21:18 Prozac - PO 40 mg HS MAGEN Administration Gabapentin 100 mg 08/14/16 17:15 08/18/16 09:57 Neurontin - PO 100 mg DAILY MAGEN Administration Cefazolin Sodium/Dextrose 50 mls @ 100 mls/hr 08/17/16 02:45 08/18/16 17:25 Ancef 2 Gm Premixed Ivpb - IVPB 100 mls/hr Q8H-IV MAGEN Administration Insulin Aspart 1 vial 08/16/16 09:22 08/18/16 17:26 Novolog Vial Sliding Scale - SQ 2 units TIDAC MAGEN Administration Protocol Insulin Detemir 70 units 08/18/16 07:00 08/18/16 06:45 Levemir Vial SQ 70 unit AM MAGEN Administration Lorazepam 0.5 mg 08/11/16 22:00 08/17/16 21:17 Ativan - PO 0.5 mg HS MAGEN Administration Losartan Potassium 25 mg 08/11/16 12:30 08/18/16 09:57 Cozaar - PO 25 mg DAILY MAGEN Administration Mupirocin 1 applic 08/16/16 22:00 08/18/16 09:58 Bactroban 2% Ointment - TP 1 gm BID MAGEN Administration Oxycodone HCl 5 mg 08/18/16 03:14 08/18/16 08:41 Roxicodone - PO 5 mg Q4H PRN Administration PAIN Pantoprazole Sodium 40 mg 08/17/16 10:00 08/18/16 09:58 Protonix - PO 40 mg DAILY MAGEN Administration Potassium Chloride 20 meq 08/13/16 10:00 08/18/16 09:58 Potassium Chloride Oral Liquid PO 20 meq DAILY MAGEN Administration Ranitidine HCl 150 mg 08/11/16 07:00 08/18/16 06:46 Zantac - PO 150 mg AM MAGEN Administration Rivaroxaban 20 mg 08/11/16 10:00 08/18/16 09:57 Xarelto - PO 20 mg DAILY MAGEN Administration Senna/Docusate Sodium 2 tablet 08/11/16 22:00 08/17/16 21:18 Pericolace - PO 2 tablet HS MAGEN Administration Tamsulosin HCl 0.4 mg 08/11/16 08:30 08/18/16 08:32 Flomax - PO 0.4 mg DAILY@0830 MAGEN Administration Torsemide 200 mg 08/11/16 10:00 08/18/16 09:58 Demadex - PO 200 mg DAILY MAGEN Administration Home Medications Medication Instructions Recorded Acetaminophen with Codeine 1 each PO Q4HWA PRN 06/24/16 [Acetaminophen-Cod #3 Tablet] Allopurinol [Zyloprim -] 100 mg PO BID 06/24/16 Aspirin [ASA -] 81 mg PO AM 06/24/16 Atorvastatin Calcium 40 mg PO HS 06/24/16 Carvedilol [Coreg -] 6.25 mg PO BID 06/24/16 Cholecalciferol (Vitamin D3) 1,000 mg PO DAILY 06/24/16 [Vitamin D -] Colchicine 0.6 mg PO DAILY 06/24/16 Famotidine/Ca Carb/Mag Hydrox 1 each PO AM 06/24/16 [Pepcid Complete Tablet Chew] Fluoxetine HCl [Prozac] 40 mg PO HS 06/24/16 Insulin (Levemir) [Levemir Vial] 70 unit SQ AM 06/24/16 Insulin Regular, Human [Humulin R 15 - 20 unit SQ AC 06/24/16 U-500 Kwikpen] Ipratropium/Albuterol Sulfate 3 ml IH DAILY PRN 06/24/16 [Iprat-Albut 0.5-3(2.5) mg/3 ml] Liraglutide [Victoza -] 1.8 mg SQ DAILY@0700 06/24/16 Lorazepam 0.5 mg PO HS 06/24/16 Oxycodone HCl/Acetaminophen 1 each PO Q6H PRN 06/24/16 [Oxycodone-Acetaminophen 5-325] Rivaroxaban [Xarelto -] 15 mg PO DAILY 06/24/16 Sennosides/Docusate Sodium [Senna 8.6 mg PO HS 06/24/16 Laxative Tablet] Tamsulosin HCl [Flomax -] 0.4 mg PO DAILY 06/24/16 Torsemide 100 mg PO BID 06/24/16 Trazodone HCl 100 mg PO HS 06/24/16 CT of abd /pelvis with no abscess , but L shoulder with large effusion which could be septic, positive for infiltrate ASSESSMENT AND PLAN: 61 y/o man with h/o ICM , CKD , S CHF , CABG, s/p cardiac arrest , R LE DVT , and DM who presented with SOB and not feeling well and was found to have sepsis 2/2 UTI and bacteremia # E.Coli bacteremia due to UTI , continue IV antibiotic sensitive to Ancef as per ID :s/p sepsis , Discussed with , patient might need a group home antibiotic, might need a picc line if not possible rehab. # Pneumonia on IV antibiotic continue #DM better controlled now , on levemir to 70units daily , SSI # Acute Systolic CHF : on demadex continue, cont coreg, Off ASA while on xarelto. # h/o Afib : cont xarelto CKD : base line Cr 1.7-2. monitor DVT Px: Xarelto
[2016-08-18] MEDS: LORazepam 0.5 MG TABLET PO SCH (21:09)
[2016-08-18] MEDS: diphenhydrAMINE HCL 25 MG CAPSULE (FP) PO SCH (21:10)
[2016-08-18] MEDS: ATORVASTATIN CA 40 MG TABLET (FP) PO SCH (21:10)
[2016-08-18] MEDS: FLUoxetine HCL 20 MG CAPSULE (FP) PO SCH (21:11)
[2016-08-18] MEDS: SENNOSIDES/DOCUSATE COMBO (SENNA PLUS) TABLET (UD) PO SCH (21:11)
[2016-08-18 22:32] LABS: MCH 30.5 pg (25.7-33.7); MCHC 33.5 g/dl (32.0-35.9); MEAN CELL VOLUME 91.2 fl (80-96); PLATELET COUNT 193 K/MM3 (134-434); RDW 17.4 % (11.9-15.9); WHITE BLOOD COUNT 10.6 K/mm3 (4.0-10.0)
--- NOTE | 2016-08-18 22:54 | CONSULT ---
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 ) Cardio/Vascular: Yes: CAD, CHF (s/p defibrillator for cardiac arrest and low LVEF), Deep Vein Thrombosis, HTN, Hyperlipdemia, OR, Mitral Insufficiency, Other (Ischemic cardiomyopathy, s/p CABG) Pulmonary: Yes: Cancer (undocumented cell type), COPD Gastrointestinal: Yes: Ascites Hepatobiliary: Yes: Cirrhosis, Cholelithiasis, Hepatitis B, Other Renal/: Yes: Renal Inusuff, BPH, UTI Infectious Disease: Yes: Other (Chronic lower extremity bilateral cellulitis ) Rheumatology: Yes: Gout, Other (left rotator cuff tear) Endocrine: Yes: Diabetes Mellitus - Past Surgical History Past Surgical History: Yes: AICD, CABG Additional Surgical History: 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 - Alcohol/Substance Use Hx Alcohol Use: No History of Substance Use: reports: None - Smoking History Smoking history: Current some day smoker (3 packs per week) Have you smoked in the past 12 months: Yes Aproximately how many cigarettes per day: 3 If you are a former smoker, when did you quit?: 2008 - Social History Usual Living Arrangement: With Spouse ADL: Independent 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, 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 Travel: No Home Medications - Allergies Allergies/Adverse Reactions: Allergies Allergy/AdvReac Type Severity Reaction Status Date / Time Iodinated Contrast Media - Allergy Verified 08/08/16 16:23 Oral and [Iodinated Contrast Media - IV Dye] raw fruits/vegetables Allergy Intermediate Rash Uncoded 08/08/16 16:23 iv contrast dye Allergy Uncoded 08/08/16 16:23 - Home Medications Home Medications: Ambulatory Orders Acetaminophen with Codeine [Acetaminophen-Cod #3 Tablet] 1 each PO Q4HWA PRN Allopurinol [Zyloprim -] 100 mg PO BID 06/24/16 Aspirin [ASA -] 81 mg PO AM 06/24/16 Atorvastatin Calcium 40 mg PO HS 06/24/16 Carvedilol [Coreg -] 6.25 mg PO BID 06/24/16 Cholecalciferol (Vitamin D3) [Vitamin D -] 1,000 mg PO DAILY 06/24/16 Colchicine 0.6 mg PO DAILY 06/24/16 Famotidine/Ca Carb/Mag Hydrox [Pepcid Complete Tablet Chew] 1 each PO AM Fluoxetine HCl [Prozac] 40 mg PO HS 06/24/16 Insulin (Levemir) [Levemir Vial] 70 unit SQ AM 06/24/16 Insulin Regular, Human [Humulin R U-500 Kwikpen] 15 - 20 unit SQ AC 06/24/16 Ipratropium/Albuterol Sulfate [Iprat-Albut 0.5-3(2.5) mg/3 ml] 3 ml IH DAILY PRN 06/24/16 Liraglutide [Victoza -] 1.8 mg SQ DAILY@0700 06/24/16 Lorazepam 0.5 mg PO HS 06/24/16 Oxycodone HCl/Acetaminophen [Oxycodone-Acetaminophen 5-325] 1 each PO Q6H PRN Rivaroxaban [Xarelto -] 15 mg PO DAILY 06/24/16 Sennosides/Docusate Sodium [Senna Laxative Tablet] 8.6 mg PO HS 06/24/16 Tamsulosin HCl [Flomax -] 0.4 mg PO DAILY 06/24/16 Torsemide 100 mg PO BID 06/24/16 Trazodone HCl 100 mg PO HS 06/24/16 Family Disease History - Family Disease History Family Disease History: CA: Father (bilateral kidney cancers), Mother (skin cancer), Other: Father, Mother, Brother, Sister Review of Systems - Review of Systems Constitutional: reports: Fever, Lethargy Eyes: reports: Blurred Vision HENT: reports: Hearing Loss Neck: reports: Pain on Movement, Tenderness Cardiovascular: reports: Edema, Palpitations, Shortness of Breath Respiratory: reports: Exercise Intolerance, Orthopnea, SOB on Exertion, Wheezing Gastrointestinal: reports: Bloating, Nausea Genitourinary: reports: Urgency Breasts: reports: No Symptoms Reported Musculoskeletal: reports: Joint Pain, Joint Swelling, Muscle Pain, Muscle Cramps Integumentary: reports: Rash Neurological: reports: Dizziness, Unsteady Gait, Weakness Endocrine: reports: Excessive Sweating, Unexplained Weight Gain Psychiatric: reports: Anxiety, Depression Physical Exam Vital Signs: Vital Signs Temperature 99.6 F 08/18/16 16:10 Pulse Rate 89 08/18/16 16:10 Respiratory Rate 18 08/18/16 16:10 Blood Pressure 128/71 08/18/16 16:10 O2 Sat by Pulse Oximetry (%) 93 L 08/17/16 21:00 Constitutional: Yes: Anxious Eyes: Yes: EOM Intact HENT: Yes: Normocephalic Neck: Yes: Trachea Midline Cardiovascular: Yes: Pulse Irregular, S2 Respiratory: Yes: Accessory Muscle Use, Rhonchi, SOB, SOB on Exertion, Tachypnea Gastrointestinal: Yes: Normal Bowel Sounds, Abdomen, Obese, Ascites, Tenderness , Epigastrium ...Rectal Exam: Yes: Deferred Renal/: Yes: WNL Breast(s): Yes: Gynecomastia Musculoskeletal: Yes: Joint Swelling, Muscle Pain, Muscle Weakness Extremities: Yes: Cool Labs: CBC, BMP 08/18/16 22:00 08/18/16 07:05 Problem List - Problems (1) COPD exacerbation Code(s): J44.1 - CHRONIC OBSTRUCTIVE PULMONARY DISEASE W (ACUTE) EXACERBATION (2) Cirrhosis of liver Code(s): K74.60 - UNSPECIFIED CIRRHOSIS OF LIVER (3) Gallstone Code(s): K80.20 - CALCULUS OF GALLBLADDER W/O CHOLECYSTITIS W/O OBSTRUCTION (4) Obstructive sleep apnea of adult Code(s): G47.33 - OBSTRUCTIVE SLEEP APNEA (ADULT) (PEDIATRIC) Assessment/Plan Current Active Problems COPD exacerbation (Acute) Cirrhosis of liver (Acute) Diabetes mellitus (Acute) E coli bacteremia (Acute) Gallstone (Acute) Obstructive sleep apnea of adult (Acute) Sepsis (Acute) UTI (urinary tract infection) (Acute) CKD (chronic kidney disease) (Chronic) Abnormal Lab Results 08/18/16 08/18/16 08/18/16 06:40 07:05 10:40 WBC 10.4 H RBC 3.76 L Hgb 11.3 L Hct 34.4 L RDW 17.8 H Potassium 3.4 L Carbon Dioxide 33 H BUN 38 H Creatinine 1.5 H Random Glucose 148 H D Direct Bilirubin 0.4 H GGT 565 H AST 63 H Alkaline Phosphatase 778 H Albumin 2.6 L 08/18/16 22:00 WBC 10.6 H RBC 3.63 L Hgb 11.1 L Hct 33.1 L RDW 17.4 H Potassium Carbon Dioxide BUN Creatinine Random Glucose Direct Bilirubin GGT AST Alkaline Phosphatase Albumin Laboratory Results - last 24 hr 08/18/16 08/18/16 08/18/16 06:40 06:41 07:05 WBC 10.4 H RBC 3.76 L Hgb 11.3 L Hct 34.4 L MCV 91.5 MCH MCHC 33.0 RDW 17.8 H Plt Count 195 MPV 8.9 Sodium 140 Potassium 3.4 L Chloride 98 Carbon Dioxide 33 H Anion Gap 9 BUN 38 H Creatinine 1.5 H POC Glucometer 153 Random Glucose 148 H D Calcium 8.8 Total Bilirubin Direct Bilirubin GGT 565 H AST ALT Alkaline Phosphatase Total Protein Albumin 08/18/16 08/18/16 08/18/16 10:40 12:06 16:49 WBC RBC Hgb Hct MCV MCH MCHC RDW Plt Count MPV Sodium Potassium Chloride Carbon Dioxide Anion Gap BUN Creatinine POC Glucometer 351 122 Random Glucose Calcium Total Bilirubin 0.6 D Direct Bilirubin 0.4 H GGT AST 63 H ALT 60 Alkaline Phosphatase 778 H Total Protein 6.4 Albumin 2.6 L 08/18/16 22:00 WBC 10.6 H RBC 3.63 L Hgb 11.1 L Hct 33.1 L MCV 91.2 MCH 30.5 MCHC 33.5 RDW 17.4 H Plt Count 193 MPV 9.0 Sodium Potassium Chloride Carbon Dioxide Anion Gap BUN Creatinine POC Glucometer Random Glucose Calcium Total Bilirubin Direct Bilirubin GGT AST ALT Alkaline Phosphatase Total Protein Albumin plan: continue bgm qid with novolog insulin coverage continue levemir 70 units sq am daily ck hba1c
[2016-08-18 23:07] LABS: ANION GAP 9 (8-16); CO2 31 mmol/L (21-32); CREATININE 1.8 mg/dL (0.7-1.3); GLUCOSE,RANDOM 288 mg/dL (74-106)
[2016-08-19] MEDS: CEFAZOLIN 2 GM/D5W 50 ML IVPB SCH ×3 (01:48→17:35)
[2016-08-19] MEDS: INSULIN DETEMIR 100 UNITS/ML MDV SQ SCH (06:38)
[2016-08-19] MEDS: INSULIN SLIDING SCALE (NOVOLOG) 1 VIAL SQ SCH ×3 (06:39→17:35)
[2016-08-19] MEDS: RANITIDINE HCL 150 MG TABLET (FP) PO SCH (06:39)
[2016-08-19 07:21] LABS: FIBROSURE ASH COMMENT SEE FILE COPY
[2016-08-19 08:05] LABS: ALBUMIN 2.4 g/dl (3.4-5.0); BILIRUBIN,DIRECT 0.3 mg/dL (0.0-0.2); BILIRUBIN,TOTAL 0.7 mg/dL (0.2-1.0); FERRITIN 360.78 ng/ml (16.4-293.9); TOT PROT 6.6 g/dl (6.4-8.2)
--- NOTE | 2016-08-19 09:54 | PN ---
Progress Note (short form) - Note Progress Note: PULMONARY Denies shortness of breath or chest pain. No fevers or chills. Last Vital Signs Temp Pulse Resp BP Pulse Ox 98.5 F 71 18 109/54 93 L 08/19/16 06:00 08/19/16 06:00 08/19/16 06:00 08/19/16 06:00 08/17/16 21:00 Gen: NAD at rest Heart: RRR Lung: decreased breath sounds at the bases Abd: soft, nontender Ext: no edema, chronic changes CBC, BMP 08/18/16 22:00 08/18/16 22:00 Active Medications Acetaminophen (Tylenol -) 650 mg PO Q6H PRN PRN Reason: FEVER Last Admin: 08/14/16 02:14 Dose: 650 mg Allopurinol (Zyloprim -) 100 mg PO DAILY [facility] Last Admin: 08/18/16 09:57 Dose: 100 mg Atorvastatin Calcium (Lipitor -) 40 mg PO HS [facility] Last Admin: 08/18/16 21:10 Dose: 40 mg Carvedilol (Coreg -) 6.25 mg PO BID [facility] Last Admin: 08/18/16 21:10 Dose: 6.25 mg Cholecalciferol (Vitamin D3 -) 400 unit PO DAILY [facility] Last Admin: 08/18/16 09:57 Dose: 400 unit Diphenhydramine HCl (Benadryl -) 25 mg PO HS [facility] Last Admin: 08/18/16 21:10 Dose: 25 mg Fluoxetine HCl (Prozac -) 40 mg PO HS [facility] Last Admin: 08/18/16 21:11 Dose: 40 mg Gabapentin (Neurontin -) 100 mg PO DAILY [facility] Last Admin: 08/18/16 09:57 Dose: 100 mg Cefazolin Sodium/Dextrose (Ancef 2 Gm Premixed Ivpb -) 50 mls @ 100 mls/hr IVPB Q8H-IV [facility] Last Admin: 08/19/16 01:48 Dose: 100 mls/hr Insulin Aspart (Novolog Vial Sliding Scale -) 1 vial SQ TIDAC [facility] PRN Reason: Protocol Last Admin: 08/19/16 06:39 Dose: 8 unit Insulin Detemir (Levemir Vial) 70 units SQ AM [facility] Last Admin: 08/19/16 06:38 Dose: 70 unit Lorazepam (Ativan -) 0.5 mg PO HS [facility] Last Admin: 08/18/16 21:09 Dose: 0.5 mg Losartan Potassium (Cozaar -) 25 mg PO DAILY [facility] Last Admin: 08/18/16 09:57 Dose: 25 mg Mupirocin (Bactroban 2% Ointment -) 1 applic TP BID [facility] Last Admin: 08/18/16 21:10 Dose: 1 gm Oxycodone HCl (Roxicodone -) 5 mg PO Q4H PRN PRN Reason: PAIN Last Admin: 08/18/16 08:41 Dose: 5 mg Pantoprazole Sodium (Protonix -) 40 mg PO DAILY [facility] Last Admin: 08/18/16 09:58 Dose: 40 mg Potassium Chloride (Potassium Chloride Oral Liquid) 20 meq PO DAILY [facility] Last Admin: 08/18/16 09:58 Dose: 20 meq Ranitidine HCl (Zantac -) 150 mg PO AM [facility] Last Admin: 08/19/16 06:39 Dose: 150 mg Rivaroxaban (Xarelto -) 20 mg PO DAILY [facility] [place] Last Admin: 08/18/16 09:57 Dose: 20 mg Senna/Docusate Sodium (Pericolace -) 2 tablet PO HS [facility] [place] Last Admin: 08/18/16 21:11 Dose: 2 tablet Tamsulosin HCl (Flomax -) 0.4 mg PO DAILY@0830 [facility] Last Admin: 08/18/16 08:32 Dose: 0.4 mg Torsemide (Demadex -) 200 mg PO DAILY [facility] [place] Last Admin: 08/18/16 09:58 Dose: 200 mg A/P UTI E coli Bacteremia LV Systolic Dysfunction Pulmonary HTN HTN DM Atrial fibrillation Acute on Chronic Renal Failure Lung Nodules COPD - continue antibiotics - f/u final cultures - rate controlled - continue anticoagulation - O2 to keep SpO2 >90% - will need outpt f/u for CT chest findings
--- NOTE | 2016-08-19 10:11 | PN ---
Progress Note, Physician History of Present Illness: Awake but lethargic Offers no complaints Afebrile Shoulder asp c/s (-) - Current Medication List Current Medications: Active Medications Acetaminophen (Tylenol -) 650 mg PO Q6H PRN PRN Reason: FEVER Last Admin: 08/14/16 02:14 Dose: 650 mg Allopurinol (Zyloprim -) 100 mg PO DAILY [facility] Last Admin: 08/18/16 09:57 Dose: 100 mg Atorvastatin Calcium (Lipitor -) 40 mg PO HS [facility] Last Admin: 08/18/16 21:10 Dose: 40 mg Carvedilol (Coreg -) 6.25 mg PO BID [facility] Last Admin: 08/18/16 21:10 Dose: 6.25 mg Cholecalciferol (Vitamin D3 -) 400 unit PO DAILY [facility] Last Admin: 08/18/16 09:57 Dose: 400 unit Diphenhydramine HCl (Benadryl -) 25 mg PO HS [facility] Last Admin: 08/18/16 21:10 Dose: 25 mg Fluoxetine HCl (Prozac -) 40 mg PO HS [facility] Last Admin: 08/18/16 21:11 Dose: 40 mg Gabapentin (Neurontin -) 100 mg PO DAILY [facility] Last Admin: 08/18/16 09:57 Dose: 100 mg Cefazolin Sodium/Dextrose (Ancef 2 Gm Premixed Ivpb -) 50 mls @ 100 mls/hr IVPB Q8H-IV [facility] Last Admin: 08/19/16 01:48 Dose: 100 mls/hr Insulin Aspart (Novolog Vial Sliding Scale -) 1 vial SQ TIDAC [facility] PRN Reason: Protocol Last Admin: 08/19/16 06:39 Dose: 8 unit Insulin Detemir (Levemir Vial) 70 units SQ AM [facility] Last Admin: 08/19/16 06:38 Dose: 70 unit Lorazepam (Ativan -) 0.5 mg PO HS [facility] Last Admin: 08/18/16 21:09 Dose: 0.5 mg Losartan Potassium (Cozaar -) 25 mg PO DAILY [facility] Last Admin: 08/18/16 09:57 Dose: 25 mg Mupirocin (Bactroban 2% Ointment -) 1 applic TP BID [facility] Last Admin: 08/18/16 21:10 Dose: 1 gm Oxycodone HCl (Roxicodone -) 5 mg PO Q4H PRN PRN Reason: PAIN Last Admin: 08/18/16 08:41 Dose: 5 mg Pantoprazole Sodium (Protonix -) 40 mg PO DAILY [facility] Last Admin: 08/18/16 09:58 Dose: 40 mg Potassium Chloride (Potassium Chloride Oral Liquid) 20 meq PO DAILY [facility] Last Admin: 08/18/16 09:58 Dose: 20 meq Ranitidine HCl (Zantac -) 150 mg PO AM [facility] Last Admin: 08/19/16 06:39 Dose: 150 mg Rivaroxaban (Xarelto -) 20 mg PO DAILY [facility] Last Admin: 08/18/16 09:57 Dose: 20 mg Senna/Docusate Sodium (Pericolace -) 2 tablet PO HS [facility] Last Admin: 08/18/16 21:11 Dose: 2 tablet Tamsulosin HCl (Flomax -) 0.4 mg PO DAILY@0830 [facility] Last Admin: 08/18/16 08:32 Dose: 0.4 mg Torsemide (Demadex -) 200 mg PO DAILY [facility] Last Admin: 08/18/16 09:58 Dose: 200 mg - Objective Vital Signs: Vital Signs Temperature 98.5 F 08/19/16 06:00 Pulse Rate 71 08/19/16 06:00 Respiratory Rate 18 08/19/16 06:00 Blood Pressure 109/54 08/19/16 06:00 O2 Sat by Pulse Oximetry (%) 93 L 08/17/16 21:00 Constitutional: Yes: No Distress Eyes: Yes: Conjunctiva Clear Cardiovascular: Yes: Regular Rate and Rhythm, S1, S2 Respiratory: Yes: CTA Bilaterally Gastrointestinal: Yes: Normal Bowel Sounds, Soft. No: Tenderness Labs: CBC, BMP 08/18/16 22:00 08/18/16 22:00 INR, PTT INR 1.62 (0.82-1.09) H 08/08/16 21:35 Assessment/Plan Recurrent Gram Negative bacteremia/ Sepsis Pneumonia Azotemia Continue cefazolin
[2016-08-19] MEDS: CARVEDILOL 6.25 MG TABLET (FP) PO SCH ×2 (10:29→21:36)
[2016-08-19] MEDS: GABAPENTIN 100 MG CAPSULE (FP) PO SCH (10:29)
[2016-08-19] MEDS: CHOLECALCIFEROL (VITAMIN D3) 400 UNIT TABLET (FP) PO SCH (10:30)
[2016-08-19] MEDS: RIVAROXABAN 20 MG TABLET PO SCH (10:30)
[2016-08-19] MEDS: TAMSULOSIN HCL 0.4 MG CAP.ER.24H (FP) PO SCH (10:30)
[2016-08-19] MEDS: ALLOPURINOL 100 MG TABLET (FP) PO SCH (10:30)
[2016-08-19] MEDS: PANTOPRAZOLE 40 MG TABLET (FP) PO SCH (10:30)
[2016-08-19] MEDS: LOSARTAN POTASSIUM 25 MG TABLET PO SCH (10:30)
[2016-08-19] MEDS: TORSEMIDE 100 MG TABLET PO SCH (10:31)
[2016-08-19] MEDS: POTASSIUM CHLORIDE ORAL LIQUID 20 MEQ/15 ML PO SCH (10:31)
[2016-08-19] MEDS: MUPIROCIN 2% TOPICAL OINTMENT 22 GM TUBE TP SCH ×2 (10:32→21:43)
--- NOTE | 2016-08-19 11:36 | PN ---
Physical Exam: SUBJECTIVE: Patient seen and examined Patient has no new complains, no shortness of breath, no fever or chills. OBJECTIVE: Vital Signs Temperature 98.5 F 08/19/16 06:00 Pulse Rate 71 08/19/16 06:00 Respiratory Rate 18 08/19/16 06:00 Blood Pressure 109/54 08/19/16 06:00 O2 Sat by Pulse Oximetry (%) 93 L 08/17/16 21:00 GENERAL: The patient is awake, alert, and fully oriented, in no acute distress. HEAD: Normal with no signs of trauma. EYES: PERRL, extraocular movements intact, sclera anicteric, conjunctiva clear. ENT: Ears normal, oropharynx clear without exudates, moist mucous membranes. NECK: Trachea midline, full range of motion, supple. LUNGS: Breath sounds equal, clear to auscultation bilaterally, no wheezes, no crackles, no accessory muscle use. HEART: Regular rate and rhythm, S1, S2 without murmur, rub or gallop. ABDOMEN: Soft, nontender, nondistended, normoactive bowel sounds, no masses appreciated. EXTREMITIES: 2+ pulses, warm, well-perfused, no edema. NEUROLOGICAL: Cranial nerves II through XII grossly intact. Normal speech, gait not observed. PSYCH: Normal mood, normal affect. SKIN: Warm, dry, normal turgor, no rashes or lesions noted Active Medications Generic Name Dose Route Start Last Admin Trade Name Freq PRN Reason Stop Dose Admin Acetaminophen 650 mg 08/13/16 18:29 08/14/16 02:14 Tylenol - PO 650 mg Q6H PRN Administration FEVER Allopurinol 100 mg 08/11/16 10:08/19/16 10:30 Zyloprim - PO 100 mg DAILY MAGEN Administration Atorvastatin Calcium 40 mg 08/11/16 22:00 08/18/16 21:10 Lipitor - PO 40 mg HS MAGEN Administration Carvedilol 6.25 mg 08/11/16 10:08/19/16 10:29 Coreg - PO 6.25 mg BID MAGEN Administration Cholecalciferol 400 unit 08/11/16 10:00 08/19/16 10:30 Vitamin D3 - PO 400 unit DAILY MAGEN Administration Diphenhydramine HCl 25 mg 08/17/16 22:00 08/18/16 21:10 Benadryl - PO 25 mg HS MAGEN Administration Fluoxetine HCl 40 mg 08/11/16 22:00 08/18/16 21:11 Prozac - PO 40 mg HS MAGEN Administration Gabapentin 100 mg 08/14/16 17:15 08/19/16 10:29 Neurontin - PO 100 mg DAILY MAGEN Administration Cefazolin Sodium/Dextrose 50 mls @ 100 mls/hr 08/17/16 02:45 08/19/16 10:32 Ancef 2 Gm Premixed Ivpb - IVPB 100 mls/hr Q8H-IV MAGEN Administration Insulin Aspart 1 vial 08/18/16 22:58 08/19/16 06:39 Novolog Vial Sliding Scale - SQ 8 unit TIDAC MAGEN Administration Protocol Insulin Detemir 70 units 08/18/16 07:00 08/19/16 06:38 Levemir Vial SQ 70 unit AM MAGEN Administration Lorazepam 0.5 mg 08/11/16 22:00 08/18/16 21:09 Ativan - PO 0.5 mg HS MAGEN Administration Losartan Potassium 25 mg 08/11/16 12:30 08/19/16 10:30 Cozaar - PO 25 mg DAILY MAGEN Administration Mupirocin 1 applic 08/16/16 22:00 08/19/16 10:32 Bactroban 2% Ointment - TP 1 applic BID MAGEN Administration Oxycodone HCl 5 mg 08/18/16 03:14 08/18/16 08:41 Roxicodone - PO 5 mg Q4H PRN Administration PAIN Pantoprazole Sodium 40 mg 08/17/16 10:00 08/19/16 10:30 Protonix - PO 40 mg DAILY MAGEN Administration Potassium Chloride 20 meq 08/13/16 10:00 08/19/16 10:31 Potassium Chloride Oral Liquid PO 20 meq DAILY MAGEN Administration Ranitidine HCl 150 mg 08/11/16 07:00 08/19/16 06:39 Zantac - PO 150 mg AM MAGEN Administration Rivaroxaban 20 mg 08/11/16 10:00 08/19/16 10:30 Xarelto - PO 20 mg DAILY MAGEN Administration Senna/Docusate Sodium 2 tablet 08/11/16 22:00 08/18/16 21:11 Pericolace - PO 2 tablet HS MAGEN Administration Tamsulosin HCl 0.4 mg 08/11/16 08:30 08/19/16 10:30 Flomax - PO 0.4 mg DAILY@0830 MAGEN Administration Torsemide 200 mg 08/11/16 10:00 08/19/16 10:31 Demadex - PO 200 mg DAILY MAGEN Administration CT of abd /pelvis with no abscess , but L shoulder with large effusion which could be septic, positive for infiltrate ASSESSMENT AND PLAN: 61 y/o man with h/o ICM , CKD , S CHF , CABG, s/p cardiac arrest , R LE DVT, and DM who presented with SOB and not feeling well and was found to have sepsis 2/2 UTI and bacteremia # E.Coli bacteremia due to UTI , continue IV antibiotic sensitive to Ancef as per ID :s/p sepsis , Discussed with , patient might need a intermediate manager antibiotic, might need a picc line if not possible rehab.On Sunday. Will check with ID # Pneumonia on IV antibiotic continue #DM better controlled now , on levemir to 70units daily , SSI , appreciated consult # Acute Systolic CHF : on demadex continue, cont coreg, on xarelto. # h/o Afib : cont xarelto CKD : base line Cr 1.7-2. monitor DVT Px: Xarelto Visit type - Emergency Visit Emergency Visit: Yes ED Registration Date: 08/08/16 Care time: The patient presented to the Emergency Department on the above date and was hospitalized for further evaluation of their emergent condition. - New Patient This patient is new to me today: No - Critical Care Critical Care patient: No
--- NOTE | 2016-08-19 14:21 | PN ---
GI Progress Note Subjective: GI NOte: Remains free of abdominal pain. Tolerating solids. Alkaline phosphatase still rising. - Objective Vital Signs: Vital Signs Temperature 98.5 F 08/19/16 06:00 Pulse Rate 71 08/19/16 06:00 Respiratory Rate 18 08/19/16 06:00 Blood Pressure 109/54 08/19/16 06:00 O2 Sat by Pulse Oximetry (%) 93 L 08/17/16 21:00 Constitutional: Calm ...Auscultate: Yes: Normoactive Bowel Sounds ...Palpate: Yes: Soft, Other (nontender) Labs: CBC, BMP 08/18/16 22:00 08/18/16 22:00 INR, PTT INR 1.62 (0.82-1.09) H 08/08/16 21:35 Laboratory Tests 02/15/15 05/27/16 06/26/16 11:20 06:05 06:30 Alkaline Phosphatase 210 H 202 H 270 H D 06/27/16 08/08/16 08/16/16 06:20 17:10 06:10 Alkaline Phosphatase 468 H D 469 H 635 H D 08/17/16 08/18/16 08/19/16 06:00 10:40 06:00 Alkaline Phosphatase 755 H 778 H 813 H Assessment/Plan I continue to believe that his LFTs are a cholestatic reaction to sepsis or congestive hepatopathy strained by sepsis rather than obstruction but these need to be followed. Await Hida scan to exclude cholecystitis and CBD obstruction. Problem List - Problems (1) Gallstone Code(s): K80.20 - CALCULUS OF GALLBLADDER W/O CHOLECYSTITIS W/O OBSTRUCTION (2) Cirrhosis of liver Code(s): K74.60 - UNSPECIFIED CIRRHOSIS OF LIVER
[2016-08-19] MEDS ORDERED: PT OWN MED DRAWER 7, Y5N ONE (21:34)
[2016-08-19] MEDS: ATORVASTATIN CA 40 MG TABLET (FP) PO SCH (21:36)
[2016-08-19] MEDS: LORazepam 0.5 MG TABLET PO SCH (21:36)
[2016-08-19] MEDS: SENNOSIDES/DOCUSATE COMBO (SENNA PLUS) TABLET (UD) PO SCH (21:36)
[2016-08-19] MEDS: ACETAMINOPHEN 325 MG TABLET (FP) PO PRN (21:37)
[2016-08-19] MEDS: oxyCODONE HCL 5 MG TABLET PO PRN (21:37)
[2016-08-19] MEDS: FLUoxetine HCL 20 MG CAPSULE (FP) PO SCH (21:37)
[2016-08-19] MEDS: diphenhydrAMINE HCL 25 MG CAPSULE (FP) PO SCH (21:37)
[2016-08-19] MEDS: INSULIN (NOVOLOG) ASPART 100 UNITS/ML 10ML VIAL SQ SCH (23:58)
[2016-08-20] MEDS: CEFAZOLIN 2 GM/D5W 50 ML IVPB SCH ×3 (02:38→17:21)
[2016-08-20] MEDS: INSULIN DETEMIR 100 UNITS/ML MDV SQ SCH (06:52)
[2016-08-20] MEDS: RANITIDINE HCL 150 MG TABLET (FP) PO SCH (06:52)
[2016-08-20] MEDS: INSULIN (NOVOLOG) ASPART 100 UNITS/ML 10ML VIAL SQ SCH (06:56)
[2016-08-20 07:36] LABS: MCH 30.7 pg (25.7-33.7); MCHC 33.6 g/dl (32.0-35.9); MEAN CELL VOLUME 91.3 fl (80-96); MEAN PLT VOLUME 8.8 fl (7.5-11.1); PLATELET COUNT 182 K/MM3 (134-434); RDW 17.7 % (11.9-15.9); WHITE BLOOD COUNT 8.7 K/mm3 (4.0-10.0)
[2016-08-20 08:14] LABS: ALBUMIN 2.5 g/dl (3.4-5.0); ANION GAP 8 (8-16); BILIRUBIN,DIRECT 0.3 mg/dL (0.0-0.2); C-REACTIVE PROTEIN 1.4 MG/DL (0.00-0.3); CALCIUM 8.1 mg/dL (8.5-10.1); CO2 32 mmol/L (21-32); CREATININE 1.5 mg/dL (0.7-1.3); GLUCOSE,RANDOM 207 mg/dL (74-106); SGOT/AST 48 U/L (15-37); SGPT/ALT 26 U/L (12-78); TOT PROT 6.5 g/dl (6.4-8.2)
[2016-08-20 08:15] LABS: ALK PHOS 691 U/L (45-117); BILIRUBIN,TOTAL 0.7 mg/dL (0.2-1.0)
--- NOTE | 2016-08-20 10:10 | PN ---
Progress Note (short form) - Note Progress Note: PULMONARY Denies shortness of breath or chest pain. No fevers or chills. Last Vital Signs Temp Pulse Resp BP Pulse Ox 98.1 F 92 H 18 118/65 97 08/20/16 06:00 08/20/16 06:00 08/20/16 06:00 08/20/16 06:00 08/19/16 21:00 Gen: NAD at rest Heart: RRR Lung: decreased breath sounds at the bases Abd: soft, nontender Ext: no edema, chronic changes CBC, BMP 08/20/16 06:05 08/20/16 06:05 Active Medications Acetaminophen (Tylenol -) 650 mg PO Q6H PRN PRN Reason: FEVER Last Admin: 08/19/16 21:37 Dose: 650 mg Allopurinol (Zyloprim -) 100 mg PO DAILY [facility] Last Admin: 08/19/16 10:30 Dose: 100 mg Atorvastatin Calcium (Lipitor -) 40 mg PO [facility] Last Admin: 08/19/16 21:36 Dose: 40 mg Carvedilol (Coreg -) 6.25 mg PO BID [facility] Last Admin: 08/19/16 21:36 Dose: Not Given Cholecalciferol (Vitamin D3 -) 400 unit PO DAILY [facility] Last Admin: 08/19/16 10:30 Dose: 400 unit Diphenhydramine HCl (Benadryl -) 25 mg PO [facility] Last Admin: 08/19/16 21:37 Dose: 25 mg Fluoxetine HCl (Prozac -) 40 mg PO [facility] Last Admin: 08/19/16 21:37 Dose: 40 mg Gabapentin (Neurontin -) 100 mg PO BID [facility] Cefazolin Sodium/Dextrose (Ancef 2 Gm Premixed Ivpb -) 50 mls @ 100 mls/hr IVPB Q8H-IV [facility] Last Admin: 08/20/16 02:38 Dose: 100 mls/hr Insulin Aspart (Novolog Vial) 6 units SQ BID@0700,1630 [facility] Last Admin: 08/20/16 06:56 Dose: Not Given Insulin Detemir (Levemir Vial) 70 units SQ AM [facility] Last Admin: 08/20/16 06:52 Dose: 70 unit Lorazepam (Ativan -) 0.5 mg PO [facility] Last Admin: 08/19/16 21:36 Dose: 0.5 mg Losartan Potassium (Cozaar -) 25 mg PO DAILY [facility] Last Admin: 08/19/16 10:30 Dose: 25 mg Mupirocin (Bactroban 2% Ointment -) 1 applic TP BID [facility] Last Admin: 08/19/16 21:43 Dose: 1 applic Oxycodone HCl (Roxicodone -) 5 mg PO Q4H PRN PRN Reason: PAIN Last Admin: 08/19/16 21:37 Dose: 5 mg Pantoprazole Sodium (Protonix -) 40 mg PO DAILY [facility] Last Admin: 08/19/16 10:30 Dose: 40 mg Potassium Chloride (Potassium Chloride Oral Liquid) 20 meq PO DAILY [facility] Last Admin: 08/19/16 10:31 Dose: 20 meq Ranitidine HCl (Zantac -) 150 mg PO AM [facility] Last Admin: 08/20/16 06:52 Dose: 150 mg Rivaroxaban (Xarelto -) 20 mg PO DAILY [facility] Last Admin: 08/19/16 10:30 Dose: 20 mg Senna/Docusate Sodium (Pericolace -) 2 tablet PO HS [facility] Last Admin: 08/19/16 21:36 Dose: 2 tablet Tamsulosin HCl (Flomax -) 0.4 mg PO DAILY@0830 [facility] Last Admin: 08/19/16 10:30 Dose: 0.4 mg Torsemide (Demadex -) 200 mg PO DAILY [facility] Last Admin: 08/19/16 10:31 Dose: 200 mg A/P UTI E coli Bacteremia LV Systolic Dysfunction Pulmonary HTN HTN DM Atrial fibrillation Acute on Chronic Renal Failure Lung Nodules COPD - continue antibiotics per ID - rate controlled - continue anticoagulation - O2 to keep SpO2 >90% - will need outpt f/u for CT chest findings
--- NOTE | 2016-08-20 10:23 | PN ---
GI Progress Note Subjective: GI NOte: Denies abdominal pain. Alkaline phosphatase have begun to decline. - Objective Vital Signs: Vital Signs Temperature 98.1 F 08/20/16 06:00 Pulse Rate 92 H 08/20/16 06:00 Respiratory Rate 18 08/20/16 06:00 Blood Pressure 118/65 08/20/16 06:00 O2 Sat by Pulse Oximetry (%) 97 08/19/16 21:00 Constitutional: Calm ...Auscultate: Yes: Normoactive Bowel Sounds ...Palpate: Yes: Soft, Other (nontender) Labs: CBC, BMP 08/20/16 06:05 08/20/16 06:05 INR, PTT INR 1.62 (0.82-1.09) H 08/08/16 21:35 Laboratory Tests 08/18/16 08/20/16 07:05 06:05 Total Bilirubin 0.7 Direct Bilirubin 0.3 H GGT 565 H 509 H AST 48 H ALT 26 C-Reactive Protein 1.4 H D Assessment/Plan Believe that the gallstones remain asymptomatic but await Hida scan confirmation Problem List - Problems (1) Gallstone Code(s): K80.20 - CALCULUS OF GALLBLADDER W/O CHOLECYSTITIS W/O OBSTRUCTION (2) Cirrhosis of liver Code(s): K74.60 - UNSPECIFIED CIRRHOSIS OF LIVER
[2016-08-20] MEDS ORDERED: PT OWN MED DRAWER 7, Y5N ONE ×2 (11:27→22:16)
--- NOTE | 2016-08-20 11:29 | PN ---
Progress Note, Physician History of Present Illness: Ambulating without dyspnea on exertion, afebrile. - Current Medication List Current Medications: Active Medications Acetaminophen (Tylenol -) 650 mg PO Q6H PRN PRN Reason: FEVER Last Admin: 08/19/16 21:37 Dose: 650 mg Allopurinol (Zyloprim -) 100 mg PO DAILY [facility] Last Admin: 08/19/16 10:30 Dose: 100 mg Atorvastatin Calcium (Lipitor -) 40 mg PO [facility] Last Admin: 08/19/16 21:36 Dose: 40 mg Carvedilol (Coreg -) 6.25 mg PO BID [facility] Last Admin: 08/19/16 21:36 Dose: Not Given Cholecalciferol (Vitamin D3 -) 400 unit PO DAILY [facility] Last Admin: 08/19/16 10:30 Dose: 400 unit Diphenhydramine HCl (Benadryl -) 25 mg PO HS [facility] Last Admin: 08/19/16 21:37 Dose: 25 mg Fluoxetine HCl (Prozac -) 40 mg PO [facility] Last Admin: 08/19/16 21:37 Dose: 40 mg Gabapentin (Neurontin -) 100 mg PO BID [facility] Cefazolin Sodium/Dextrose (Ancef 2 Gm Premixed Ivpb -) 50 mls @ 100 mls/hr IVPB Q8H-IV [facility] Last Admin: 08/20/16 02:38 Dose: 100 mls/hr Insulin Aspart (Novolog Vial) 6 units SQ BID@0700,1630 [facility] Last Admin: 08/20/16 06:56 Dose: Not Given Insulin Detemir (Levemir Vial) 70 units SQ AM [facility] Last Admin: 08/20/16 06:52 Dose: 70 unit Lorazepam (Ativan -) 0.5 mg PO HS [facility] Last Admin: 08/19/16 21:36 Dose: 0.5 mg Losartan Potassium (Cozaar -) 25 mg PO DAILY [facility] Last Admin: 08/19/16 10:30 Dose: 25 mg Mupirocin (Bactroban 2% Ointment -) 1 applic TP BID [facility] Last Admin: 08/19/16 21:43 Dose: 1 applic Oxycodone HCl (Roxicodone -) 5 mg PO Q4H PRN PRN Reason: PAIN Last Admin: 08/19/16 21:37 Dose: 5 mg Pantoprazole Sodium (Protonix -) 40 mg PO DAILY [facility] Last Admin: 08/19/16 10:30 Dose: 40 mg Potassium Chloride (Potassium Chloride Oral Liquid) 20 meq PO DAILY [facility] Last Admin: 08/19/16 10:31 Dose: 20 meq Ranitidine HCl (Zantac -) 150 mg PO AM [facility] Last Admin: 08/20/16 06:52 Dose: 150 mg Rivaroxaban (Xarelto -) 20 mg PO DAILY [facility] Last Admin: 08/19/16 10:30 Dose: 20 mg Senna/Docusate Sodium (Pericolace -) 2 tablet PO HS [facility] Last Admin: 08/19/16 21:36 Dose: 2 tablet Tamsulosin HCl (Flomax -) 0.4 mg PO DAILY@0830 [facility] Last Admin: 08/19/16 10:30 Dose: 0.4 mg Torsemide (Demadex -) 200 mg PO DAILY [facility] Last Admin: 08/19/16 10:31 Dose: 200 mg - Objective Vital Signs: Vital Signs Temperature 98.1 F 08/20/16 06:00 Pulse Rate 92 H 08/20/16 06:00 Respiratory Rate 18 08/20/16 06:00 Blood Pressure 118/65 08/20/16 06:00 O2 Sat by Pulse Oximetry (%) 97 08/19/16 21:00 Constitutional: Yes: No Distress, Calm Neck: Yes: Supple Cardiovascular: Yes: Regular Rate and Rhythm Respiratory: Yes: Regular, Diminished Gastrointestinal: Yes: Normal Bowel Sounds, Soft, Abdomen, Obese Edema: No Labs: CBC, BMP 08/20/16 06:05 08/20/16 06:05 INR, PTT INR 1.62 (0.82-1.09) H 08/08/16 21:35 Problem List - Problems (1) Diabetes mellitus Code(s): E11.9 - TYPE 2 DIABETES MELLITUS WITHOUT COMPLICATIONS Qualifiers: Diabetes mellitus type: type 2 Diabetes mellitus complication status: with kidney complications Diabetes mellitus complication detail: with chronic kidney disease Diabetes mellitus terminal operations manager insulin use: with half-way use Chronic kidney disease stage: stage 4 (severe) Qualified Code(s): E11.22 - Type 2 diabetes mellitus with diabetic chronic kidney disease ; N18.1 - Chronic kidney disease, stage 1; Z79.4 - intermodal customer service (current) use of insulin (2) Sepsis Code(s): A41.9 - SEPSIS, UNSPECIFIED ORGANISM Qualifiers: Sepsis type: sepsis due to unspecified organism Qualified Code(s): A41.9 - Sepsis, unspecified organism (3) UTI (urinary tract infection) Code(s): N39.0 - URINARY TRACT INFECTION, SITE NOT SPECIFIED Qualifiers: Urinary tract infection type: site unspecified Hematuria presence: without hematuria Qualified Code(s): N39.0 - Urinary tract infection, site not specified (4) Acute on chronic systolic and diastolic heart failure, NYHA class 4 Code(s): I50.43 - ACUTE ON CHRONIC COMBINED SYSTOLIC AND DIASTOLIC HRT FAIL (5) COPD (chronic obstructive pulmonary disease) Code(s): J44.9 - CHRONIC OBSTRUCTIVE PULMONARY DISEASE, UNSPECIFIED Qualifiers : COPD type: chronic bronchitis (6) DVT prophylaxis Code(s): NZX7149 - (7) Hx of CABG Code(s): Z95.1 - PRESENCE OF AORTOCORONARY BYPASS GRAFT (8) Ischemic cardiomyopathy Code(s): I25.5 - ISCHEMIC CARDIOMYOPATHY (9) Morbid obesity Code(s): E66.01 - MORBID (SEVERE) OBESITY DUE TO EXCESS CALORIES Qualifiers: Obesity type: due to excess calories Qualified Code(s): E66.01 - Morbid (severe) obesity due to excess calories (10) Poor compliance Code(s): Z91.19 - PATIENT'S NONCOMPLIANCE W OTH MEDICAL TREATMENT AND REGIMEN (11) S/P CABG (coronary artery bypass graft) Code(s): Z95.1 - PRESENCE OF AORTOCORONARY BYPASS GRAFT (12) Severe left ventricular systolic dysfunction Code(s): I51.9 - HEART DISEASE, UNSPECIFIED (13) Single implantable cardioverter-defibrillator (ICD) in situ Code(s): Z95.810 - PRESENCE OF AUTOMATIC (IMPLANTABLE) CARDIAC DEFIBRILLATOR (14) Tobacco abuse Code(s): Z72.0 - TOBACCO USE (15) ASHD (arteriosclerotic heart disease) Code(s): I25.10 - ATHSCL HEART DISEASE OF [place] CORONARY ARTERY W/O ANG PCTRS (16) Diabetes mellitus, insulin dependent (IDDM), uncontrolled Code(s): E10.65 - TYPE 1 DIABETES MELLITUS WITH HYPERGLYCEMIA Qualifiers: Diabetes mellitus complication detail: with polyneuropathy (17) Obstructive sleep apnea of adult Code(s): G47.33 - OBSTRUCTIVE SLEEP APNEA (ADULT) (PEDIATRIC) Assessment/Plan 08/14/2016 Echo: Severely decreased LV fxn, mod-severe decrease RV fxn, Tr-mild MR , tr TR 1. Chronic LV systolic failure with NYHA classification 3-4 heart failure with ischemic cardiomyopathy with pulm HTN 2. Urosepsis with aleman-sensitive E. coli bacteremia, PNA, h/o MRSA 3. CAD S/P CABG, angina pectoris 4. History of cardiac arrest S/P ICD 5. Chronic hypoxic respiratory failure with home O2 dependent COPD and pulmonary nodules 6. Type 2 diabetes mellitus 7. CVA 8. Acute on CKD resolved (now at baseline Cr 1.4-1.5) 9. Morbid obesity 10. History of RLE DVT 11. Persistent atrial fibrillation on NOAC 12. OSAS noncompliant with cpap 13. Cholestasis PLAN: 1. Continue Demadex 200 qd with monitor diuretic response, renal fxn and electrolytes, replete K, Mg as you are 2. Complete Ancef course per C&S 3. Continue Carvedilol 6.25 bid, Atorvastatin 40 qhs and Xarelto 20 qPM 4. Continue losartan 25 qd as renal fxn has stabilized 5. GI prophylaxis, cpap nightly 6. Chest CT results show left upper and lower lobe pulm infiltrates, for repeat as outpatient, f/u shoulder joint aspirate 7. F/u HIDA scan r/o obstruction
[2016-08-20] MEDS: POTASSIUM CHLORIDE ORAL LIQUID 20 MEQ/15 ML PO SCH (11:31)
[2016-08-20] MEDS: GABAPENTIN 100 MG CAPSULE (FP) PO SCH ×2 (11:31→21:12)
[2016-08-20] MEDS: CARVEDILOL 6.25 MG TABLET (FP) PO SCH ×2 (11:31→21:13)
[2016-08-20] MEDS: CHOLECALCIFEROL (VITAMIN D3) 400 UNIT TABLET (FP) PO SCH (11:31)
[2016-08-20] MEDS: oxyCODONE HCL 5 MG TABLET PO PRN ×2 (11:31→17:22)
[2016-08-20] MEDS: TAMSULOSIN HCL 0.4 MG CAP.ER.24H (FP) PO SCH (11:32)
[2016-08-20] MEDS: ALLOPURINOL 100 MG TABLET (FP) PO SCH (11:32)
[2016-08-20] MEDS: TORSEMIDE 100 MG TABLET PO SCH (11:32)
[2016-08-20] MEDS: LOSARTAN POTASSIUM 25 MG TABLET PO SCH (11:32)
[2016-08-20] MEDS: MUPIROCIN 2% TOPICAL OINTMENT 22 GM TUBE TP SCH ×2 (11:33→21:13)
[2016-08-20] MEDS: RIVAROXABAN 20 MG TABLET PO SCH (11:33)
[2016-08-20] MEDS: INSULIN SLIDING SCALE (NOVOLOG) 1 VIAL SQ SCH ×3 (12:31→21:13)
[2016-08-20] MEDS: PANTOPRAZOLE 40 MG TABLET (FP) PO SCH (17:19)
--- NOTE | 2016-08-20 20:32 | PN ---
Progress Note (short form) - Note Progress Note: Patient IS COMFORTABLE, with no acute distress, no fever or chills. Temperature 98.3 F 08/20/16 16:10 Pulse Rate 67 08/20/16 16:10 Respiratory Rate 20 08/20/16 16:10 Blood Pressure 94/58 08/20/16 16:10 O2 Sat by Pulse Oximetry (%) 97 08/20/16 11:20 GENERAL: The patient is awake, alert, and fully oriented, in no acute distress. HEAD: Normal with no signs of trauma. EYES: PERRL, extraocular movements intact, sclera anicteric, conjunctiva clear. ENT: Ears normal, oropharynx clear without exudates, moist mucous membranes. NECK: Trachea midline, full range of motion, supple. LUNGS: Breath sounds equal, clear to auscultation bilaterally, no wheezes, no crackles, no accessory muscle use. HEART: Regular rate and rhythm, S1, S2 without murmur, rub or gallop. ABDOMEN: Soft, nontender, nondistended, normoactive bowel sounds, no masses appreciated. EXTREMITIES: 2+ pulses, warm, well-perfused, no edema. NEUROLOGICAL: Cranial nerves II through XII grossly intact. Normal speech, gait not observed. PSYCH: Normal mood, normal affect. SKIN: Warm, dry, normal turgor, no rashes or lesions noted CBCD WBC 8.7 K/mm3 (4.0-10.0) 08/20/16 06:05 RBC 3.62 M/mm3 (4.00-5.60) L 08/20/16 06:05 Hgb 11.1 GM/dL (11.7-16.9) L 08/20/16 06:05 Hct 33.1 % (35.4-49) L 08/20/16 06:05 MCV 91.3 fl (80-96) 08/20/16 06:05 MCHC 33.6 g/dl (32.0-35.9) 08/20/16 06:05 RDW 17.7 % (11.9-15.9) H 08/20/16 06:05 Plt Count 182 K/MM3 (134-434) 08/20/16 06:05 MPV 8.8 fl (7.5-11.1) 08/20/16 06:05 CMP Sodium 139 mmol/L (136-145) 08/20/16 06:05 Potassium 3.5 mmol/L (3.5-5.1) 08/20/16 06:05 Chloride 99 mmol/L (98-107) 08/20/16 06:05 Carbon Dioxide 32 mmol/L (21-32) 08/20/16 06:05 Anion Gap 8 (8-16) 08/20/16 06:05 BUN 32 mg/dL (7-18) H 08/20/16 06:05 Creatinine 1.5 mg/dL (0.7-1.3) H 08/20/16 06:05 Creat Clearance w eGFR 47.58 (>60) 08/20/16 06:05 Random Glucose 207 mg/dL (74-106) H D 08/20/16 06:05 Calcium 8.1 mg/dL (8.5-10.1) L 08/20/16 06:05 Total Bilirubin 0.7 mg/dL (0.2-1.0) 08/20/16 06:05 AST 48 U/L (15-37) H 08/20/16 06:05 ALT 26 U/L (12-78) 08/20/16 06:05 Alkaline Phosphatase 691 U/L (45-117) H 08/20/16 06:05 Total Protein 6.5 g/dl (6.4-8.2) 08/20/16 06:05 Albumin 2.5 g/dl (3.4-5.0) L 08/20/16 06:05 CARDIAC ENZYMES Creatine Kinase 124 IU/L (39-308) 08/08/16 21:35 Troponin I 0.05 ng/ml (0.00-0.05) 08/09/16 11:15 Current Medications Generic Name Dose Route Start Last Admin Trade Name Freq PRN Reason Stop Dose Admin Acetaminophen 650 mg 08/13/16 18:29 08/19/16 21:37 Tylenol - PO 650 mg Q6H PRN Administration FEVER Allopurinol 100 mg 08/11/16 10:00 08/20/16 11:32 Zyloprim - PO 100 mg DAILY MAGEN Administration Atorvastatin Calcium 40 mg 08/11/16 22:00 08/19/16 21:36 Lipitor - PO 40 mg HS MAGEN Administration Carvedilol 6.25 mg 08/11/16 10:00 08/20/16 11:31 Coreg - PO 6.25 mg BID MAGEN Administration Cholecalciferol 400 unit 08/11/16 10:00 08/20/16 11:31 Vitamin D3 - PO 400 unit DAILY MAGEN Administration Diphenhydramine HCl 25 mg 08/17/16 22:00 08/19/16 21:37 Benadryl - PO 25 mg HS MAEGN Administration Fluoxetine HCl 40 mg 08/11/16 22:00 08/19/16 21:37 Prozac - PO 40 mg HS MAGEN Administration Gabapentin 100 mg 08/20/16 10:00 08/20/16 11:31 Neurontin - PO 100 mg BID MAGEN Administration Cefazolin Sodium/Dextrose 50 mls @ 100 mls/hr 08/17/16 02:45 08/20/16 17:21 Ancef 2 Gm Premixed Ivpb - IVPB 100 mls/hr Q8H-IV MAGEN Administration Insulin Aspart 0 vial 08/20/16 16:30 08/20/16 17:21 Novolog Vial Sliding Scale - SQ Not Given [facility] Protocol Insulin Detemir 70 units 08/18/16 07:00 08/20/16 06:52 Levemir Vial SQ 70 unit AM MAGEN Administration Lorazepam 0.5 mg 08/11/16 22:00 08/19/16 21:36 Ativan - PO 0.5 mg HS MAGEN Administration Losartan Potassium 25 mg 08/11/16 12:30 08/20/16 11:32 Cozaar - PO 25 mg DAILY MAGEN Administration Mupirocin 1 applic 08/16/16 22:00 08/20/16 11:33 Bactroban 2% Ointment - TP 1 applic BID MAGEN Administration Oxycodone HCl 5 mg 08/18/16 03:14 08/20/16 17:22 Roxicodone - PO 5 mg Q4H PRN Administration PAIN Pantoprazole Sodium 40 mg 08/17/16 10:00 08/20/16 17:19 Protonix - PO Not Given DAILY MAGEN Potassium Chloride 20 meq 08/13/16 10:00 08/20/16 11:31 Potassium Chloride Oral Liquid PO 20 meq DAILY MAGEN Administration Ranitidine HCl 150 mg 08/11/16 07:00 08/20/16 06:52 Zantac - PO 150 mg AM MAGEN Administration Rivaroxaban 20 mg 08/11/16 10:00 08/20/16 11:33 Xarelto - PO 20 mg DAILY MAGEN Administration Senna/Docusate Sodium 2 tablet 08/11/16 22:00 08/19/16 21:36 Pericolace - PO 2 tablet HS [facility] Administration Tamsulosin HCl 0.4 mg 08/11/16 08:30 08/20/16 11:32 Flomax - PO 0.4 mg DAILY@0830 MAGEN Administration Torsemide 200 mg 08/11/16 10:00 08/20/16 11:32 Demadex - PO 200 mg DAILY MAGEN Administration Home Medications Medication Instructions Recorded Acetaminophen with Codeine 1 each PO Q4HWA PRN 06/24/16 [Acetaminophen-Cod #3 Tablet] Allopurinol [Zyloprim -] 100 mg PO BID 06/24/16 Aspirin [ASA -] 81 mg PO AM 06/24/16 Atorvastatin Calcium 40 mg PO HS 06/24/16 Carvedilol [Coreg -] 6.25 mg PO BID 06/24/16 Cholecalciferol (Vitamin D3) 1,000 mg PO DAILY 06/24/16 [Vitamin D -] Colchicine 0.6 mg PO DAILY 06/24/16 Famotidine/Ca Carb/Mag Hydrox 1 each PO AM 06/24/16 [Pepcid Complete Tablet Chew] Fluoxetine HCl [Prozac] 40 mg PO HS 06/24/16 Insulin (Levemir) [Levemir Vial] 70 unit SQ AM 06/24/16 Insulin Regular, Human [Humulin R 15 - 20 unit SQ AC 06/24/16 U-500 Kwikpen] Ipratropium/Albuterol Sulfate 3 ml IH DAILY PRN 06/24/16 [Iprat-Albut 0.5-3(2.5) mg/3 ml] Liraglutide [Victoza -] 1.8 mg SQ DAILY@0700 06/24/16 Lorazepam 0.5 mg PO HS 06/24/16 Oxycodone HCl/Acetaminophen 1 each PO Q6H PRN 06/24/16 [Oxycodone-Acetaminophen 5-325] Rivaroxaban [Xarelto -] 15 mg PO DAILY 06/24/16 Sennosides/Docusate Sodium [Senna 8.6 mg PO HS 06/24/16 Laxative Tablet] Tamsulosin HCl [Flomax -] 0.4 mg PO DAILY 06/24/16 Torsemide 100 mg PO BID 06/24/16 Trazodone HCl 100 mg PO HS 06/24/16 CT of abd /pelvis with no abscess , but L shoulder with large effusion which could be septic, positive for infiltrate ASSESSMENT AND PLAN: 61 y/o man with h/o ICM , CKD , S CHF , CABG, s/p cardiac arrest , R LE DVT, and DM who presented with SOB and not feeling well and was found to have sepsis 2/2 UTI and bacteremia # E.Coli bacteremia due to UTI/ possible due to prostatitis but patient refused rectal exam , continue IV antibiotic sensitive to Ancef as per ID :s/p sepsis , Discussed with , patient might need a family practice md antibiotic, might need a picc line for outpatient treatment vs rehab.On Sunday. Will check with ID # Pneumonia on IV antibiotic continue #DM better controlled now , on levemir to 70units daily , SSI , appreciated consult # Acute Systolic CHF : on demadex continue, cont coreg, on xarelto. # h/o Afib : cont xarelto CKD : base line Cr 1.7-2. monitor DVT Px: Xarelto Visit type - Emergency Visit Emergency Visit: Yes ED Registration Date: 08/08/16 Care time: The patient presented to the Emergency Department on the above date and was hospitalized for further evaluation of their emergent condition. - New Patient This patient is new to me today: No - Critical Care Critical Care patient: No
[2016-08-20] MEDS: ATORVASTATIN CA 40 MG TABLET (FP) PO SCH (21:12)
[2016-08-20] MEDS: diphenhydrAMINE HCL 25 MG CAPSULE (FP) PO SCH (21:12)
[2016-08-20] MEDS: LORazepam 0.5 MG TABLET PO SCH (21:13)
[2016-08-20] MEDS: SENNOSIDES/DOCUSATE COMBO (SENNA PLUS) TABLET (UD) PO SCH (21:13)
[2016-08-20] MEDS: FLUoxetine HCL 20 MG CAPSULE (FP) PO SCH (22:06)
[2016-08-21] MEDS: CEFAZOLIN 2 GM/D5W 50 ML IVPB SCH ×3 (02:39→18:10)
[2016-08-21] MEDS: INSULIN SLIDING SCALE (NOVOLOG) 1 VIAL SQ SCH ×4 (06:10→23:22)
[2016-08-21] MEDS: INSULIN DETEMIR 100 UNITS/ML MDV SQ SCH (06:10)
[2016-08-21] MEDS: RANITIDINE HCL 150 MG TABLET (FP) PO SCH (06:11)
[2016-08-21] MEDS: oxyCODONE HCL 5 MG TABLET PO PRN ×2 (07:47→21:00)
--- NOTE | 2016-08-21 08:45 | PN ---
Physical Exam: SUBJECTIVE: Patient seen and examined OBJECTIVE: Vital Signs Period Temp Pulse Resp BP Sys/Mcconnell Pulse Ox Last 24 Hr 98.1 F-98.6 F 67-89 16-20 94-120/53-73 97-97 GENERAL: The patient is awake, alert, and fully oriented, in no acute distress. HEAD: Normal with no signs of trauma. EYES: PERRL, extraocular movements intact, sclera anicteric, conjunctiva clear. No ptosis. ENT: Ears normal, nares patent, oropharynx clear without exudates, moist mucous membranes. NECK: Trachea midline, full range of motion, supple. LUNGS: Breath sounds equal, clear to auscultation bilaterally, no wheezes, no crackles, no accessory muscle use. HEART: Regular rate and rhythm, S1, S2 without murmur, rub or gallop. ABDOMEN: Soft, nontender, nondistended, normoactive bowel sounds, no guarding, no rebound, no hepatosplenomegaly, no masses. EXTREMITIES: 2+ pulses, warm, well-perfused, no edema. NEUROLOGICAL: Cranial nerves II through XII grossly intact. Normal speech, gait not observed. PSYCH: Normal mood, normal affect. SKIN: Warm, dry, normal turgor, no rashes or lesions noted Laboratory Results - last 24 hr 08/20/16 08/20/16 08/20/16 12:07 17:20 21:10 POC Glucometer 316 106 196 08/21/16 05:38 POC Glucometer 218 Active Medications Generic Name Dose Route Start Last Admin Trade Name Freq PRN Reason Stop Dose Admin Acetaminophen 650 mg 08/13/16 18:29 08/19/16 21:37 Tylenol - PO 650 mg Q6H PRN Administration FEVER Allopurinol 100 mg 08/11/16 10:00 08/20/16 11:32 Zyloprim - PO 100 mg DAILY MAGEN Administration Atorvastatin Calcium 40 mg 08/11/16 22:00 08/20/16 21:12 Lipitor - PO 40 mg HS MAGEN Administration Carvedilol 6.25 mg 08/11/16 10:00 08/20/16 21:13 Coreg - PO 6.25 mg BID MAGEN Administration Cholecalciferol 400 unit 08/11/16 10:00 08/20/16 11:31 Vitamin D3 - PO 400 unit DAILY MAGEN Administration Diphenhydramine HCl 25 mg 08/17/16 22:00 08/20/16 21:12 Benadryl - PO 25 mg HS MAGEN Administration Fluoxetine HCl 40 mg 08/11/16 22:00 08/20/16 22:06 Prozac - PO 40 mg HS MAGEN Administration Gabapentin 100 mg 08/20/16 10:00 08/20/16 21:12 Neurontin - PO 100 mg BID MAGEN Administration Cefazolin Sodium/Dextrose 50 mls @ 100 mls/hr 08/17/16 02:45 08/21/16 02:39 Ancef 2 Gm Premixed Ivpb - IVPB 100 mls/hr Q8H-IV MAGEN Administration Insulin Aspart 0 vial 08/20/16 16:30 08/21/16 06:10 Novolog Vial Sliding Scale - SQ Not Given ACHS [facility] Protocol Insulin Detemir 70 units 08/18/16 07:00 08/21/16 06:10 Levemir Vial SQ Not Given AM MAGEN Lorazepam 0.5 mg 08/11/16 22:00 08/20/16 21:13 Ativan - PO 0.5 mg HS MAGEN Administration Losartan Potassium 25 mg 08/11/16 12:30 08/20/16 11:32 Cozaar - PO 25 mg DAILY MAGEN Administration Mupirocin 1 applic 08/16/16 22:00 08/20/16 21:13 Bactroban 2% Ointment - TP 1 applic BID MAGEN Administration Oxycodone HCl 5 mg 08/18/16 03:14 08/21/16 07:47 Roxicodone - PO 5 mg Q4H PRN Administration PAIN Pantoprazole Sodium 40 mg 08/17/16 10:00 08/20/16 17:19 Protonix - PO Not Given DAILY MAGEN Potassium Chloride 20 meq 08/13/16 10:00 08/20/16 11:31 Potassium Chloride Oral Liquid PO 20 meq DAILY MAGEN Administration Ranitidine HCl 150 mg 08/11/16 07:00 08/21/16 06:11 Zantac - PO Not Given AM MAGEN Rivaroxaban 20 mg 08/11/16 10:00 08/20/16 11:33 Xarelto - PO 20 mg DAILY MAGEN Administration Senna/Docusate Sodium 2 tablet 08/11/16 22:00 08/20/16 21:13 Pericolace - PO 2 tablet HS MAGEN Administration Tamsulosin HCl 0.4 mg 08/11/16 08:30 08/20/16 11:32 Flomax - PO 0.4 mg DAILY@0830 MAGEN Administration Torsemide 200 mg 08/11/16 10:00 08/20/16 11:32 Demadex - PO 200 mg DAILY MAGEN Administration ASSESSMENT/PLAN: 61 y/o male with history of systolic CHF, DM, Ischemic CM, Afib/DVT, CKD who presented with sepsis and SOB found to be septic 2/2 UTI # Sepsis with persistent bacteremia - resolved - Patient initially presented with fever, tachycardia, with likely source of infection - Patients complaint of dysuria, prompting UA which was positive - Patient was started on empiric Zosyn 2.25mg Q8 IV (renal dosing) and Vancomycin 1250mg IV QD - Urine cultures and Blood cultures on admission both grew E.coli, antibiotics were de-escalated to Cefazolin due to S/S. Patient was on Cefazolin for 4 days - On 08/12 night patient spiked fever (Tmax 102.8) with tachycardia (HR 99) and WBC trending up (8.0 --> 10.4) prompting new Blood cultures to be drawn and antibiotic escalation to Meropenem 1g Q8 IV - New blood cultures grew same organism E.coli - Possible new sources include renal abscess (ruled out from Renal US and CT abd ), shoulder abscess vs osteo (CT shoulder shows L shoulder effusion s/p drainage and culture pending), or Defibrillator pocket infection (ruled out with CT chest) - Patient new has new onset back pain since admission, CT lumbar spine ordered without evidence of infection - Antibiotics de-escalated back to Cefazolin 2g Q8H, on Day 2 - ID on board, considering dc with PICC line - Post void bladder scan is 124mL, continue to believe that static urine could have built up bacteria and seeded into blood twice. Patient does have enlarged prostate, does endorse chronic urgency and frequency #High ALP with High GGT - resolving - 635 on admission --> 813 max on 08/19 --> 691 on 08/20 - Pt has known gallstones w/o enlarged CBD, asymptomatic, wondernig if this coud 've caused bacteremia - GI saw patient, believes it is probably due to a choelstatic reaction to sepsis or congestive hepatopathy strained by sepsis rather than obstruction - HIDA scan ordered to exclude cholecystitis or CBD stone, cannot get CT w/ con (allergic), no MRCP (pacemaker) # Cirrhotic Liver on U/S - Could be due to Hep B chronic vs cardiac cirrhosis (congestive hepatopathy), or Hughes - Gi on board # Poorly controlled Diabetes Mellitus - Hgb A1c 10.5 this admission, on Levemir 70QD and Victoza at home - Due to episode of hypoglycemia, patient was switched to 50 and titrated up to 60 --> 65 --> 70, AM sugars now 153 - Continue Sliding scale insulin - Neuropathic pain during hospitalization, started Gabapentin 100mg QD as DM is poorly controlled. Temporarily relieved by Benedryl, so started patient on Benedryl 25mg QHS #L 3rd Toe Nail Bed Ulcer - Podiatry on board, excisional debridement of L third toe done at bedside with scissors, no deep pus or ulcer noted - Given rx for bactroban and DSD daily to toe - XR L foot showed no signs of osteomyelitis # Acute Systolic CHF - Patient clinically looks euvolemic - Continue torsamide 200mg PO QD and carvedilol 6.25 mg PO BID - Patient is not on Aspirin because he is on Xarelto # H/o Atrial Fibrillation - Continue Xarelto 20mg PO QD #H/o COPD on home oxygen 3L NC RTC - Continue patient on 2L NC - As per Pulmonary reccs keep O2 sat >95 - Continue duoneb Q4 PRN - Check pre/post exercise O2 to assess need for home O2 #H/o Gout -Continue allopurinol 100mg PO QD -Patient is on BID dose at home, decreased due to MARCIAL #H/o Depression -Continue fluoxetine 40mg PO QD # CKD - Patient's Baseline Cr is 1.7 - 2.0 - Current Cr is 1.5. #L Shoulder RTC Tear - Chronic - F/u with Ortho Dr. Cisneros as outpatient #Pulmonary Nodules - Found incidentally on Chest CT - F/u as outpatient # FEN: - Not on IV fluids. - Electrolytes to be repeated tomorrow - Diabetic diet # Prophylaxis - For DVT: Already on Xarelto - For GI: Protonix 40mg QD, as per cardio reccs # Code Status - Full Code
--- NOTE | 2016-08-21 08:53 | PN ---
Progress Note (short form) - Note Progress Note: feels well no further fevers for HIDA scan today Vital Signs Period Temp Pulse Resp BP Sys/Mcconnell Pulse Ox Last 24 Hr 98.1 F-98.6 F 67-89 16-20 94-120/53-73 97-97 cor-rrr lungs clear abd soft,nt ext no edema +swelling right shoulder unchanged CBC, BMP 08/20/16 06:05 08/20/16 06:05 Laboratory Tests 08/09/16 08/15/16 08/20/16 05:45 06:10 06:05 C-Reactive Protein 16.9 H D 11.9 H D 1.4 H D Current Medications Acetaminophen (Tylenol -) 650 mg PO Q6H PRN PRN Reason: FEVER Last Admin: 08/19/16 21:37 Dose: 650 mg Allopurinol (Zyloprim -) 100 mg PO DAILY [facility] Last Admin: 08/20/16 11:32 Dose: 100 mg Atorvastatin Calcium (Lipitor -) 40 mg PO HS [facility] Last Admin: 08/20/16 21:12 Dose: 40 mg Carvedilol (Coreg -) 6.25 mg PO BID MAGEN Last Admin: 08/20/16 21:13 Dose: 6.25 mg Cholecalciferol (Vitamin D3 -) 400 unit PO DAILY MAGEN Last Admin: 08/20/16 11:31 Dose: 400 unit Diphenhydramine HCl (Benadryl -) 25 mg PO HS MAGEN Last Admin: 08/20/16 21:12 Dose: 25 mg Fluoxetine HCl (Prozac -) 40 mg PO HS [facility] Last Admin: 08/20/16 22:06 Dose: 40 mg Gabapentin (Neurontin -) 100 mg PO BID MAGEN Last Admin: 08/20/16 21:12 Dose: 100 mg Cefazolin Sodium/Dextrose (Ancef 2 Gm Premixed Ivpb -) 50 mls @ 100 mls/hr IVPB Q8H-IV MAGEN Last Admin: 08/21/16 02:39 Dose: 100 mls/hr Insulin Aspart (Novolog Vial Sliding Scale -) 0 vial SQ ACHS MAGEN PRN Reason: Protocol Last Admin: 08/21/16 06:10 Dose: Not Given Insulin Detemir (Levemir Vial) 70 units SQ AM MAGEN Last Admin: 08/21/16 06:10 Dose: Not Given Lorazepam (Ativan -) 0.5 mg PO HS [facility] Last Admin: 08/20/16 21:13 Dose: 0.5 mg Losartan Potassium (Cozaar -) 25 mg PO DAILY [facility] Last Admin: 08/20/16 11:32 Dose: 25 mg Mupirocin (Bactroban 2% Ointment -) 1 applic TP BID [facility] Last Admin: 08/20/16 21:13 Dose: 1 applic Oxycodone HCl (Roxicodone -) 5 mg PO Q4H PRN PRN Reason: PAIN Last Admin: 08/21/16 07:47 Dose: 5 mg Pantoprazole Sodium (Protonix -) 40 mg PO DAILY [facility] Last Admin: 08/20/16 17:19 Dose: Not Given Potassium Chloride (Potassium Chloride Oral Liquid) 20 meq PO DAILY [facility] Last Admin: 08/20/16 11:31 Dose: 20 meq Ranitidine HCl (Zantac -) 150 mg PO AM [facility] Last Admin: 08/21/16 06:11 Dose: Not Given Rivaroxaban (Xarelto -) 20 mg PO DAILY [facility] Last Admin: 08/20/16 11:33 Dose: 20 mg Senna/Docusate Sodium (Pericolace -) 2 tablet PO HS [facility] Last Admin: 08/20/16 21:13 Dose: 2 tablet Tamsulosin HCl (Flomax -) 0.4 mg PO DAILY@0830 [facility] Last Admin: 08/20/16 11:32 Dose: 0.4 mg Torsemide (Demadex -) 200 mg PO DAILY [facility] Last Admin: 08/20/16 11:32 Dose: 200 mg a/p recurrent ecoli bacteremia- ?source-continue ancef now day #8 s/p last positive blood culture elevated alk phos for hida scan today crp trending down d/w Dr Le (radiology)- he has multiple abnormalities on imaging studies ( CT scans) and he does not feel WBC scan would be helpful at this time ?prostatitis -refuses rectal exam!! if Hida is negative would treat place picc line and treat total 3 weeks iv with cefazolin and then po levaquin 250 daily for another 3 weeks (total 6 weeks for prostatitis) echo-has AICD-no MRI CAD-CHF- AICD DM poorly controlled
--- NOTE | 2016-08-21 11:55 | PN ---
Physical Exam: SUBJECTIVE: Patient seen and examined. Sitting comfartably in bed having lunch. Denies pain abdomen, nausea, vomiting, diarrhoea. OBJECTIVE: Vital Signs Period Temp Pulse Resp BP Sys/Mcconnell Pulse Ox Last 24 Hr 98.1 F-98.6 F 67-71 16-20 94-116/53-68 97-99 GENERAL: The patient is awake, alert, and fully oriented, in no acute distress. LUNGS: Breath sounds equal, clear to auscultation bilaterally, no wheezes, no crackles, no accessory muscle use. HEART: s1s2 normal ABDOMEN: Soft, nontender, nondistended, normoactive bowel sounds, no guarding, no rebound, Laboratory Results - last 24 hr 08/20/16 08/20/16 08/20/16 12:07 17:20 21:10 POC Glucometer 316 106 196 08/21/16 05:38 POC Glucometer 218 Active Medications Generic Name Dose Route Start Last Admin Trade Name Freq PRN Reason Stop Dose Admin Acetaminophen 650 mg 08/13/16 18:29 08/19/16 21:37 Tylenol - PO 650 mg Q6H PRN Administration FEVER Allopurinol 100 mg 08/11/16 10:00 08/20/16 11:32 Zyloprim - PO 100 mg DAILY MAGEN Administration Atorvastatin Calcium 40 mg 08/11/16 22:00 08/20/16 21:12 Lipitor - PO 40 mg HS MAGEN Administration Carvedilol 6.25 mg 08/11/16 10:00 08/20/16 21:13 Coreg - PO 6.25 mg BID MAGEN Administration Cholecalciferol 400 unit 08/11/16 10:00 08/20/16 11:31 Vitamin D3 - PO 400 unit DAILY MAGEN Administration Diphenhydramine HCl 25 mg 08/17/16 22:00 08/20/16 21:12 Benadryl - PO 25 mg HS MAGEN Administration Fluoxetine HCl 40 mg 08/11/16 22:00 08/20/16 22:06 Prozac - PO 40 mg HS MAGEN Administration Gabapentin 100 mg 08/20/16 10:00 08/20/16 21:12 Neurontin - PO 100 mg BID MAGEN Administration Cefazolin Sodium/Dextrose 50 mls @ 100 mls/hr 08/17/16 02:45 08/21/16 02:39 Ancef 2 Gm Premixed Ivpb - IVPB 100 mls/hr Q8H-IV MAGEN Administration Insulin Aspart 0 vial 08/20/16 16:30 08/21/16 06:10 Novolog Vial Sliding Scale - SQ Not Given ACHS [facility] Protocol Insulin Detemir 70 units 08/18/16 07:00 08/21/16 06:10 Levemir Vial SQ Not Given AM MAGEN Lactobacillus Acidophilus 1 tab 08/21/16 10:00 Bacid - PO BID MAGEN Lorazepam 0.5 mg 08/11/16 22:00 08/20/16 21:13 Ativan - PO 0.5 mg HS MAGEN Administration Losartan Potassium 25 mg 08/11/16 12:30 08/20/16 11:32 Cozaar - PO 25 mg DAILY [facility] Administration Mupirocin 1 applic 08/16/16 22:00 08/20/16 21:13 Bactroban 2% Ointment - TP 1 applic BID MAGEN Administration Oxycodone HCl 5 mg 08/18/16 03:14 08/21/16 07:47 Roxicodone - PO 5 mg Q4H PRN Administration PAIN Pantoprazole Sodium 40 mg 08/17/16 10:00 08/20/16 17:19 Protonix - PO Not Given DAILY MAGEN Potassium Chloride 20 meq 08/13/16 10:00 08/20/16 11:31 Potassium Chloride Oral Liquid PO 20 meq DAILY [facility] Administration Ranitidine HCl 150 mg 08/11/16 07:00 08/21/16 06:11 Zantac - PO Not Given AM MAGEN Rivaroxaban 20 mg 08/11/16 10:00 08/20/16 11:33 Xarelto - PO 20 mg DAILY [facility] Administration Senna/Docusate Sodium 2 tablet 08/11/16 22:00 08/20/16 21:13 Pericolace - PO 2 tablet HS MAGEN Administration Tamsulosin HCl 0.4 mg 08/11/16 08:30 08/20/16 11:32 Flomax - PO 0.4 mg DAILY@0830 [facility] Administration Torsemide 200 mg 08/11/16 10:00 08/20/16 11:32 Demadex - PO 200 mg DAILY MAG[facility] Administration Laboratory Tests 08/16/16 08/17/16 08/18/16 06:10 06:00 10:40 Alkaline Phosphatase 635 H D 755 H 778 H 08/19/16 08/20/16 06:00 06:05 Alkaline Phosphatase 813 H 691 H ASSESSMENT/PLAN: Gallstone Cirrhosis ov liver Alk Phos on decreasing trend. Unofficial Preliminary HIDA scan: GB is visible and intestine is visible ( It is unlikely that patient has cholecystitis or choledocolethiasis). Yahaira official report. Antibiotics as per ID. Monitor LFT. Immunology, Hepatic Serology and Fibrosure are still not available. Visit type - Emergency Visit Emergency Visit: Yes ED Registration Date: 08/08/16 Care time: The patient presented to the Emergency Department on the above date and was hospitalized for further evaluation of their emergent condition. - New Patient This patient is new to me today: No - Critical Care Critical Care patient: No
[2016-08-21] MEDS ORDERED: PT OWN MED DRAWER 7, Y5N ONE ×5 (12:03→23:51)
[2016-08-21] MEDS: LACTOBACILLUS ACIDOPHILUS 1 EACH TAB (FP) PO SCH ×2 (12:11→23:26)
[2016-08-21] MEDS: TORSEMIDE 100 MG TABLET PO SCH (12:12)
[2016-08-21] MEDS: LOSARTAN POTASSIUM 25 MG TABLET PO SCH (12:12)
[2016-08-21] MEDS: CARVEDILOL 6.25 MG TABLET (FP) PO SCH ×2 (12:12→23:25)
[2016-08-21] MEDS: POTASSIUM CHLORIDE ORAL LIQUID 20 MEQ/15 ML PO SCH (12:14)
[2016-08-21] MEDS: GABAPENTIN 100 MG CAPSULE (FP) PO SCH ×2 (12:14→23:25)
[2016-08-21] MEDS: TAMSULOSIN HCL 0.4 MG CAP.ER.24H (FP) PO SCH (12:14)
[2016-08-21] MEDS: PANTOPRAZOLE 40 MG TABLET (FP) PO SCH (12:14)
[2016-08-21] MEDS: CHOLECALCIFEROL (VITAMIN D3) 400 UNIT TABLET (FP) PO SCH (12:15)
[2016-08-21] MEDS: RIVAROXABAN 20 MG TABLET PO SCH (12:15)
[2016-08-21] MEDS: ALLOPURINOL 100 MG TABLET (FP) PO SCH (12:15)
[2016-08-21] MEDS: MUPIROCIN 2% TOPICAL OINTMENT 22 GM TUBE TP SCH ×2 (12:17→23:52)
--- NOTE | 2016-08-21 12:18 | PN ---
Progress Note (short form) - Note Progress Note: Denies shortness of breath or chest pain. No fevers or chills. No acute events overnight. Intake & Output 08/18/16 08/19/16 08/20/16 08/21/16 23:59 23:59 23:59 23:59 Intake Total 990 100 620 100 Output Total 560 Balance 430 100 620 100 Weight 251 lb 8 oz 251 lb 8 oz 247 lb 3.2 oz 246 lb 7 oz Last Vital Signs Temp Pulse Resp BP Pulse Ox 98.6 F 69 20 109/53 99 08/21/16 06:00 08/21/16 11:33 08/21/16 06:00 08/21/16 06:00 08/21/16 11:33 Active Medications Acetaminophen (Tylenol -) 650 mg PO Q6H PRN PRN Reason: FEVER Last Admin: 08/19/16 21:37 Dose: 650 mg Allopurinol (Zyloprim -) 100 mg PO DAILY [facility] Last Admin: 08/20/16 11:32 Dose: 100 mg Atorvastatin Calcium (Lipitor -) 40 mg PO HS [facility] Last Admin: 08/20/16 21:12 Dose: 40 mg Carvedilol (Coreg -) 6.25 mg PO BID [facility] Last Admin: 08/20/16 21:13 Dose: 6.25 mg Cholecalciferol (Vitamin D3 -) 400 unit PO DAILY [facility] Last Admin: 08/20/16 11:31 Dose: 400 unit Diphenhydramine HCl (Benadryl -) 25 mg PO HS [facility] Last Admin: 08/20/16 21:12 Dose: 25 mg Fluoxetine HCl (Prozac -) 40 mg PO HS [facility] Last Admin: 08/20/16 22:06 Dose: 40 mg Gabapentin (Neurontin -) 100 mg PO BID [facility] Last Admin: 08/20/16 21:12 Dose: 100 mg Cefazolin Sodium/Dextrose (Ancef 2 Gm Premixed Ivpb -) 50 mls @ 100 mls/hr IVPB Q8H-IV [facility] Last Admin: 08/21/16 02:39 Dose: 100 mls/hr Insulin Aspart (Novolog Vial Sliding Scale -) 0 vial SQ ACHS [facility] PRN Reason: Protocol Last Admin: 08/21/16 06:10 Dose: Not Given Insulin Detemir (Levemir Vial) 70 units SQ AM [facility] Last Admin: 08/21/16 06:10 Dose: Not Given Lactobacillus Acidophilus (Bacid -) 1 tab PO BID [facility] Lorazepam (Ativan -) 0.5 mg PO HS [facility] Last Admin: 08/20/16 21:13 Dose: 0.5 mg Losartan Potassium (Cozaar -) 25 mg PO DAILY [facility] Last Admin: 08/20/16 11:32 Dose: 25 mg Mupirocin (Bactroban 2% Ointment -) 1 applic TP BID [facility] Last Admin: 08/20/16 21:13 Dose: 1 applic Oxycodone HCl (Roxicodone -) 5 mg PO Q4H PRN PRN Reason: PAIN Last Admin: 08/21/16 07:47 Dose: 5 mg Pantoprazole Sodium (Protonix -) 40 mg PO DAILY [facility] Last Admin: 08/20/16 17:19 Dose: Not Given Potassium Chloride (Potassium Chloride Oral Liquid) 20 meq PO DAILY [facility] Last Admin: 08/20/16 11:31 Dose: 20 meq Ranitidine HCl (Zantac -) 150 mg PO AM [facility] Last Admin: 08/21/16 06:11 Dose: Not Given Rivaroxaban (Xarelto -) 20 mg PO DAILY [facility] Last Admin: 08/20/16 11:33 Dose: 20 mg Senna/Docusate Sodium (Pericolace -) 2 tablet PO HS [facility] Last Admin: 08/20/16 21:13 Dose: 2 tablet Tamsulosin HCl (Flomax -) 0.4 mg PO DAILY@0830 [facility] Last Admin: 08/20/16 11:32 Dose: 0.4 mg Torsemide (Demadex -) 200 mg PO DAILY [facility] Last Admin: 08/20/16 11:32 Dose: 200 mg Gen: NAD at rest Heart: RRR Lung: decreased breath sounds at the bases Abd: soft, nontender Ext: no edema, chronic changes Laboratory Results - last 24 hr 08/20/16 08/20/16 08/20/16 12:07 17:20 21:10 POC Glucometer 316 106 196 08/21/16 08/21/16 05:38 11:46 POC Glucometer 218 198 IMP: Cholecystitis (?) UTI E coli Bacteremia LV Systolic Dysfunction Pulmonary HTN HTN DM Atrial fibrillation Acute on Chronic Renal Failure Enlarged paratracheal LN / Lung Nodules/Infiltrates COPD - ABX per ID - rate controlled - continue anticoagulation - O2 to keep SpO2 >90% - will need outpt f/u for CT chest findings in [address] Milian
[2016-08-21 14:10] LABS: HEP B SURFACE AB Reactive (.); SERUM IRON 60 ug/dL (38-169); TOTAL IRON BINDING CAPACITY 228 ug/dL (250-450); UIBC 168 ug/dL (111-343)
[2016-08-21 15:06] LABS: URINE APPEARANCE CLEAR; URINE BILIRUBIN NEGATIVE (NEGATIVE); URINE BLOOD NEGATIVE (NEGATIVE); URINE COLOR LTYELLOW; URINE GLUCOSE (UA) NEGATIVE (NEGATIVE); URINE KETONE NEGATIVE (NEGATIVE); URINE LEUK ESTERASE NEGATIVE (NEGATIVE); URINE NITRITE NEGATIVE (NEGATIVE); URINE PROTEIN NEGATIVE (NEGATIVE); URINE UROBILINOGEN NEGATIVE E.U./dl (0.2-1.0)
--- NOTE | 2016-08-21 15:25 | PN ---
Progress Note, Physician History of Present Illness: Ambulating without dyspnea on exertion, afebrile. HIDA scan neg for acute cholecystitis. - Current Medication List Current Medications: Active Medications Acetaminophen (Tylenol -) 650 mg PO Q6H PRN PRN Reason: FEVER Last Admin: 08/19/16 21:37 Dose: 650 mg Allopurinol (Zyloprim -) 100 mg PO DAILY [facility] Last Admin: 08/21/16 12:15 Dose: 100 mg Atorvastatin Calcium (Lipitor -) 40 mg PO HS [facility] Last Admin: 08/20/16 21:12 Dose: 40 mg Carvedilol (Coreg -) 6.25 mg PO BID [facility] Last Admin: 08/21/16 12:12 Dose: 6.25 mg Cholecalciferol (Vitamin D3 -) 400 unit PO DAILY [facility] Last Admin: 08/21/16 12:15 Dose: 400 unit Diphenhydramine HCl (Benadryl -) 25 mg PO HS [facility] Last Admin: 08/20/16 21:12 Dose: 25 mg Fluoxetine HCl (Prozac -) 40 mg PO HS [facility] Last Admin: 08/20/16 22:06 Dose: 40 mg Gabapentin (Neurontin -) 100 mg PO BID [facility] Last Admin: 08/21/16 12:14 Dose: 100 mg Cefazolin Sodium/Dextrose (Ancef 2 Gm Premixed Ivpb -) 50 mls @ 100 mls/hr IVPB Q8H-IV [facility] Last Admin: 08/21/16 12:15 Dose: 100 mls/hr Insulin Aspart (Novolog Vial Sliding Scale -) 0 vial SQ ACHS [facility] PRN Reason: Protocol Last Admin: 08/21/16 12:17 Dose: 4 units Insulin Detemir (Levemir Vial) 70 units SQ AM [facility] Last Admin: 08/21/16 06:10 Dose: Not Given Lactobacillus Acidophilus (Bacid -) 1 tab PO BID [facility] Last Admin: 08/21/16 12:11 Dose: 1 tab Lorazepam (Ativan -) 0.5 mg PO HS [facility] Last Admin: 08/20/16 21:13 Dose: 0.5 mg Losartan Potassium (Cozaar -) 25 mg PO DAILY [facility] Last Admin: 08/21/16 12:12 Dose: 25 mg Mupirocin (Bactroban 2% Ointment -) 1 applic TP BID [facility] Last Admin: 08/21/16 12:17 Dose: 1 applic Oxycodone HCl (Roxicodone -) 5 mg PO Q4H PRN PRN Reason: PAIN Last Admin: 08/21/16 07:47 Dose: 5 mg Pantoprazole Sodium (Protonix -) 40 mg PO DAILY [facility] Last Admin: 08/21/16 12:14 Dose: 40 mg Potassium Chloride (Potassium Chloride Oral Liquid) 20 meq PO DAILY [facility] Last Admin: 08/21/16 12:14 Dose: 20 meq Ranitidine HCl (Zantac -) 150 mg PO AM [facility] Last Admin: 08/21/16 06:11 Dose: Not Given Rivaroxaban (Xarelto -) 20 mg PO DAILY [facility] Last Admin: 08/21/16 12:15 Dose: 20 mg Senna/Docusate Sodium (Pericolace -) 2 tablet PO HS [facility] Last Admin: 08/20/16 21:13 Dose: 2 tablet Tamsulosin HCl (Flomax -) 0.4 mg PO DAILY@0830 [facility] Last Admin: 08/21/16 12:14 Dose: 0.4 mg Torsemide (Demadex -) 200 mg PO DAILY [facility] Last Admin: 08/21/16 12:12 Dose: 200 mg - Objective Vital Signs: Vital Signs Temperature 98.5 F 08/21/16 15:12 Pulse Rate 78 08/21/16 15:12 Respiratory Rate 18 08/21/16 15:12 Blood Pressure 102/58 08/21/16 15:12 O2 Sat by Pulse Oximetry (%) 99 08/21/16 11:33 Constitutional: Yes: No Distress, Calm Neck: Yes: Supple Cardiovascular: Yes: Regular Rate and Rhythm Respiratory: Yes: Regular, Diminished Gastrointestinal: Yes: Normal Bowel Sounds, Soft, Abdomen, Obese Edema: No Labs: CBC, BMP 08/20/16 06:05 08/20/16 06:05 INR, PTT INR 1.62 (0.82-1.09) H 08/08/16 21:35 Problem List - Problems (1) Diabetes mellitus Code(s): E11.9 - TYPE 2 DIABETES MELLITUS WITHOUT COMPLICATIONS Qualifiers: Diabetes mellitus type: type 2 Diabetes mellitus complication status: with kidney complications Diabetes mellitus complication detail: with chronic kidney disease Diabetes mellitus long-term insulin use: with long-term use Chronic kidney disease stage: stage 4 (severe) Qualified Code(s): E11.22 - Type 2 diabetes mellitus with diabetic chronic kidney disease ; N18.1 - Chronic kidney disease, stage 1; Z79.4 - intermodal customer service (current) use of insulin (2) Sepsis Code(s): A41.9 - SEPSIS, UNSPECIFIED ORGANISM Qualifiers: Sepsis type: sepsis due to unspecified organism Qualified Code(s): A41.9 - Sepsis, unspecified organism (3) UTI (urinary tract infection) Code(s): N39.0 - URINARY TRACT INFECTION, SITE NOT SPECIFIED Qualifiers: Urinary tract infection type: site unspecified Hematuria presence: without hematuria Qualified Code(s): N39.0 - Urinary tract infection, site not specified (4) Acute on chronic systolic and diastolic heart failure, NYHA class 4 Code(s): I50.43 - ACUTE ON CHRONIC COMBINED SYSTOLIC AND DIASTOLIC HRT FAIL (5) COPD (chronic obstructive pulmonary disease) Code(s): J44.9 - CHRONIC OBSTRUCTIVE PULMONARY DISEASE, UNSPECIFIED Qualifiers : COPD type: chronic bronchitis (6) DVT prophylaxis Code(s): [id number] - (7) Hx of CABG Code(s): Z95.1 - PRESENCE OF AORTOCORONARY BYPASS GRAFT (8) Ischemic cardiomyopathy Code(s): I25.5 - ISCHEMIC CARDIOMYOPATHY (9) Morbid obesity Code(s): E66.01 - MORBID (SEVERE) OBESITY DUE TO EXCESS CALORIES Qualifiers: Obesity type: due to excess calories Qualified Code(s): E66.01 - Morbid (severe) obesity due to excess calories (10) Poor compliance Code(s): Z91.19 - PATIENT'S NONCOMPLIANCE W OTH MEDICAL TREATMENT AND REGIMEN (11) S/P CABG (coronary artery bypass graft) Code(s): Z95.1 - PRESENCE OF AORTOCORONARY BYPASS GRAFT (12) Severe left ventricular systolic dysfunction Code(s): I51.9 - HEART DISEASE, UNSPECIFIED (13) Single implantable cardioverter-defibrillator (ICD) in situ Code(s): Z95.810 - PRESENCE OF AUTOMATIC (IMPLANTABLE) CARDIAC DEFIBRILLATOR (14) Tobacco abuse Code(s): Z72.0 - TOBACCO USE (15) ASHD (arteriosclerotic heart disease) Code(s): I25.10 - ATHSCL HEART DISEASE OF [place] CORONARY ARTERY W/O ANG PCTRS (16) Diabetes mellitus, insulin dependent (IDDM), uncontrolled Code(s): E10.65 - TYPE 1 DIABETES MELLITUS WITH HYPERGLYCEMIA Qualifiers: Diabetes mellitus complication detail: with polyneuropathy (17) Obstructive sleep apnea of adult Code(s): G47.33 - OBSTRUCTIVE SLEEP APNEA (ADULT) (PEDIATRIC) Assessment/Plan 08/14/2016 Echo: Severely decreased LV fxn, mod-severe decrease RV fxn, Tr-mild MR , tr TR 1. Chronic LV systolic failure with NYHA classification 3-4 heart failure with ischemic cardiomyopathy with pulm HTN 2. Urosepsis with aleman-sensitive E. coli bacteremia, PNA, h/o MRSA 3. CAD S/P CABG, angina pectoris 4. History of cardiac arrest S/P ICD 5. Chronic hypoxic respiratory failure with home O2 dependent COPD and pulmonary nodules 6. Type 2 diabetes mellitus 7. CVA 8. Acute on CKD resolved (now at baseline Cr 1.4-1.5) 9. Morbid obesity 10. History of RLE DVT 11. Persistent atrial fibrillation on NOAC 12. OSAS noncompliant with cpap 13. Cholestasis improving PLAN: 1. Continue Demadex 200 qd with monitor diuretic response, renal fxn and electrolytes, replete K, Mg as you are 2. Complete Ancef course per C&S 3. Continue Carvedilol 6.25 bid, Atorvastatin 40 qhs and Xarelto 20 qPM 4. Continue losartan 25 qd as renal fxn has stabilized 5. GI prophylaxis, cpap nightly 6. Chest CT results show left upper and lower lobe pulm infiltrates, for repeat CT as outpatient f/u 7. HIDA scan ruled out cystic duct obstruction
--- NOTE | 2016-08-21 19:08 | PN ---
Teaching Attending Note Name of Resident: Juan José Carbajal ATTENDING PHYSICIAN STATEMENT I saw and evaluated the patient. I reviewed the resident's note and discussed the case with the resident. I agree with the resident's findings and plan as documented. SUBJECTIVE: No new findings, comfortable with no acute distress. OBJECTIVE: Vital Signs Temperature 97.6 F 08/21/16 16:42 Pulse Rate 69 08/21/16 16:42 Respiratory Rate 20 08/21/16 16:42 Blood Pressure 102/62 08/21/16 16:42 O2 Sat by Pulse Oximetry (%) 99 08/21/16 11:33 CBCD WBC 8.7 K/mm3 (4.0-10.0) 08/20/16 06:05 RBC 3.62 M/mm3 (4.00-5.60) L 08/20/16 06:05 Hgb 11.1 GM/dL (11.7-16.9) L 08/20/16 06:05 Hct 33.1 % (35.4-49) L 08/20/16 06:05 MCV 91.3 fl (80-96) 08/20/16 06:05 MCHC 33.6 g/dl (32.0-35.9) 08/20/16 06:05 RDW 17.7 % (11.9-15.9) H 08/20/16 06:05 Plt Count 182 K/MM3 (134-434) 08/20/16 06:05 MPV 8.8 fl (7.5-11.1) 08/20/16 06:05 CMP Sodium 139 mmol/L (136-145) 08/20/16 06:05 Potassium 3.5 mmol/L (3.5-5.1) 08/20/16 06:05 Chloride 99 mmol/L (98-107) 08/20/16 06:05 Carbon Dioxide 32 mmol/L (21-32) 08/20/16 06:05 Anion Gap 8 (8-16) 08/20/16 06:05 BUN 32 mg/dL (7-18) H 08/20/16 06:05 Creatinine 1.5 mg/dL (0.7-1.3) H 08/20/16 06:05 Creat Clearance w eGFR 47.58 (>60) 08/20/16 06:05 Random Glucose 207 mg/dL (74-106) H D 08/20/16 06:05 Calcium 8.1 mg/dL (8.5-10.1) L 08/20/16 06:05 Total Bilirubin 0.7 mg/dL (0.2-1.0) 08/20/16 06:05 AST 48 U/L (15-37) H 08/20/16 06:05 ALT 26 U/L (12-78) 08/20/16 06:05 Alkaline Phosphatase 691 U/L (45-117) H 08/20/16 06:05 Total Protein 6.5 g/dl (6.4-8.2) 08/20/16 06:05 Albumin 2.5 g/dl (3.4-5.0) L 08/20/16 06:05 CARDIAC ENZYMES Creatine Kinase 124 IU/L (39-308) 08/08/16 21:35 Troponin I 0.05 ng/ml (0.00-0.05) 08/09/16 11:15 Current Medications Generic Name Dose Route Start Last Admin Trade Name Freq PRN Reason Stop Dose Admin Acetaminophen 650 mg 08/13/16 18:29 08/19/16 21:37 Tylenol - PO 650 mg Q6H PRN Administration FEVER Allopurinol 100 mg 08/11/16 10:00 08/21/16 12:15 Zyloprim - PO 100 mg DAILY [facility] Administration Atorvastatin Calcium 40 mg 08/11/16 22:00 08/20/16 21:12 Lipitor - PO 40 mg HS [facility] Administration Carvedilol 6.25 mg 08/11/16 10:00 08/21/16 12:12 Coreg - PO 6.25 mg BID [facility] Administration Cholecalciferol 400 unit 08/11/16 10:00 08/21/16 12:15 Vitamin D3 - PO 400 unit DAILY [facility] Administration Diphenhydramine HCl 25 mg 08/17/16 22:00 08/20/16 21:12 Benadryl - PO 25 mg HS [facility] Administration Fluoxetine HCl 40 mg 08/11/16 22:00 08/20/16 22:06 Prozac - PO 40 mg HS [facility] Administration Gabapentin 100 mg 08/20/16 10:00 08/21/16 12:14 Neurontin - PO 100 mg BID [facility] Administration Cefazolin Sodium/Dextrose 50 mls @ 100 mls/hr 08/17/16 02:45 08/21/16 18:10 Ancef 2 Gm Premixed Ivpb - IVPB 100 mls/hr Q8H-IV [facility] Administration Insulin Aspart 0 vial 08/20/16 16:30 08/21/16 16:31 Novolog Vial Sliding Scale - SQ 8 units ACHS [facility] Administration Protocol Insulin Detemir 70 units 08/18/16 07:00 08/21/16 06:10 Levemir Vial SQ Not Given AM [facility] Lactobacillus Acidophilus 1 tab 08/21/16 10:00 08/21/16 12:11 Bacid - PO 1 tab BID [facility] Administration Lorazepam 0.5 mg 08/11/16 22:00 08/20/16 21:13 Ativan - PO 0.5 mg HS [facility] Administration Losartan Potassium 25 mg 08/11/16 12:30 08/21/16 12:12 Cozaar - PO 25 mg DAILY [facility] Administration Mupirocin 1 applic 08/16/16 22:00 08/21/16 12:17 Bactroban 2% Ointment - TP 1 applic BID [facility] Administration Oxycodone HCl 5 mg 08/18/16 03:14 08/21/16 07:47 Roxicodone - PO 5 mg Q4H PRN Administration PAIN Pantoprazole Sodium 40 mg 08/17/16 10:00 08/21/16 12:14 Protonix - PO 40 mg DAILY [facility] Administration Potassium Chloride 20 meq 08/13/16 10:00 08/21/16 12:14 Potassium Chloride Oral Liquid PO 20 meq DAILY [facility] Administration Ranitidine HCl 150 mg 08/11/16 07:00 08/21/16 06:11 Zantac - PO Not Given AM [facility] Rivaroxaban 20 mg 08/11/16 10:00 08/21/16 12:15 Xarelto - PO 20 mg DAILY [facility] Administration Senna/Docusate Sodium 2 tablet 08/11/16 22:00 08/20/16 21:13 Pericolace - PO 2 tablet HS [facility] Administration Tamsulosin HCl 0.4 mg 08/11/16 08:30 08/21/16 12:14 Flomax - PO 0.4 mg DAILY@0830 [facility] Administration Torsemide 200 mg 08/11/16 10:00 08/21/16 12:12 Demadex - PO 200 mg DAILY [facility] Administration Home Medications Medication Instructions Recorded Acetaminophen with Codeine 1 each PO Q4HWA PRN 06/24/16 [Acetaminophen-Cod #3 Tablet] Allopurinol [Zyloprim -] 100 mg PO BID 06/24/16 Aspirin [ASA -] 81 mg PO AM 06/24/16 Atorvastatin Calcium 40 mg PO HS 06/24/16 Carvedilol [Coreg -] 6.25 mg PO BID 06/24/16 Cholecalciferol (Vitamin D3) 1,000 mg PO DAILY 06/24/16 [Vitamin D -] Colchicine 0.6 mg PO DAILY 06/24/16 Famotidine/Ca Carb/Mag Hydrox 1 each PO AM 06/24/16 [Pepcid Complete Tablet Chew] Fluoxetine HCl [Prozac] 40 mg PO HS 06/24/16 Insulin (Levemir) [Levemir Vial] 70 unit SQ AM 06/24/16 Insulin Regular, Human [Humulin R 15 - 20 unit SQ AC 06/24/16 U-500 Kwikpen] Ipratropium/Albuterol Sulfate 3 ml IH DAILY PRN 06/24/16 [Iprat-Albut 0.5-3(2.5) mg/3 ml] Liraglutide [Victoza -] 1.8 mg SQ DAILY@0700 06/24/16 Lorazepam 0.5 mg PO HS 06/24/16 Oxycodone HCl/Acetaminophen 1 each PO Q6H PRN 06/24/16 [Oxycodone-Acetaminophen 5-325] Rivaroxaban [Xarelto -] 15 mg PO DAILY 06/24/16 Sennosides/Docusate Sodium [Senna 8.6 mg PO HS 06/24/16 Laxative Tablet] Tamsulosin HCl [Flomax -] 0.4 mg PO DAILY 06/24/16 Torsemide 100 mg PO BID 06/24/16 Trazodone HCl 100 mg PO HS 06/24/16 PE: per resident's note CT of abd /pelvis with no abscess , but L shoulder with large effusion which could be septic, positive for infiltrate ASSESSMENT AND PLAN: 61 y/o man with h/o ICM , CKD , S CHF , CABG, s/p cardiac arrest , R LE DVT, and DM who presented with SOB and not feeling well and was found to have sepsis 2/2 UTI and bacteremia # E.Coli bacteremia due possible prostatitis but patient refusing rectal exam, Hida scan was negative for possible cholecstitis , continue IV antibiotic sensitive to Ancef as per ID :s/p sepsis , Discussed with , patient might need a long term care phlebotomist antibiotic, we are sending the patient for picc line for a long term care phlebotomist antibiotic as per ID discussion total of 21days of antibiotics # Pneumonia on IV antibiotic continue #DM better controlled now , on levemir to 70units daily , SSI , appreciated consult # Acute Systolic CHF : on demadex continue, cont coreg, on xarelto. # h/o Afib : cont xarelto CKD : base line Cr 1.7-2. monitor DVT Px: Xarelto
--- NOTE | 2016-08-21 22:00 | PN ---
Physical Exam: SUBJECTIVE: Patient seen and examined this AM. Comfortable. No new complaints. No fevers, no chilsl, no CP, no SOB, no abdominal pain. was at bedside, spoke with her OBJECTIVE: Vital Signs Period Temp Pulse Resp BP Sys/Mcconnell Pulse Ox Last 24 Hr 97.6 F-98.6 F 67-78 18-20 102-109/53-62 99 GENERAL: The patient is awake, alert, and fully oriented, in no acute distress. Patient is hard of hearing, wears hearing aisd EYES: PERRL, extraocular movements intact . LUNGS: Breath sounds equal, clear to auscultation bilaterally, no wheezes, no crackles, no accessory muscle use. HEART: Regular rate and rhythm, S1, S2 without murmur, rub or gallop. 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 NEUROLOGICAL: AAOx3, no facial droop. Cranial nerves II through XII grossly intact. Normal speech, gait not observed. Laboratory Results - last 24 hr 08/19/16 08/21/16 08/21/16 06:00 05:38 11:46 POC Glucometer 218 198 Iron 60 TIBC 228 L Iron Saturation 26 Urine Color Urine Appearance Urine pH Ur Specific Banco Urine Protein Urine Glucose (UA) Urine Ketones Urine Blood Urine Nitrite Urine Bilirubin Urine Urobilinogen Ur Leukocyte Esterase Hepatitis A Ab Total Negative Hep Bs Antigen Negative Hep Bs Antibody Reactive Hep B Core Total Ab Positive H Hepatitis C Antibody 0.5 08/21/16 08/21/16 12:25 16:29 POC Glucometer 296 Iron TIBC Iron Saturation Urine Color Ltyellow Urine Appearance Clear Urine pH 6.0 Ur Specific Banco 1.010 Urine Protein Negative Urine Glucose (UA) Negative Urine Ketones Negative Urine Blood Negative Urine Nitrite Negative Urine Bilirubin Negative Urine Urobilinogen Negative Ur Leukocyte Esterase Negative Hepatitis A Ab Total Hep Bs Antigen Hep Bs Antibody Hep B Core Total Ab Hepatitis C Antibody Active Medications Generic Name Dose Route Start Last Admin Trade Name Freq PRN Reason Stop Dose Admin Acetaminophen 650 mg 08/13/16 18:29 08/19/16 21:37 Tylenol - PO 650 mg Q6H PRN Administration FEVER Allopurinol 100 mg 08/11/16 10:00 08/21/16 12:15 Zyloprim - PO 100 mg DAILY MAGEN Administration Atorvastatin Calcium 40 mg 08/11/16 22:00 08/20/16 21:12 Lipitor - PO 40 mg HS MAGEN Administration Carvedilol 6.25 mg 08/11/16 10:00 08/21/16 12:12 Coreg - PO 6.25 mg BID MAGEN Administration Cholecalciferol 400 unit 08/11/16 10:00 08/21/16 12:15 Vitamin D3 - PO 400 unit DAILY MAGEN Administration Diphenhydramine HCl 25 mg 08/17/16 22:00 08/20/16 21:12 Benadryl - PO 25 mg HS MAGEN Administration Fluoxetine HCl 40 mg 08/11/16 22:00 08/20/16 22:06 Prozac - PO 40 mg HS MAGEN Administration Gabapentin 100 mg 08/20/16 10:00 08/21/16 12:14 Neurontin - PO 100 mg BID MAGEN Administration Cefazolin Sodium/Dextrose 50 mls @ 100 mls/hr 08/17/16 02:45 08/21/16 18:10 Ancef 2 Gm Premixed Ivpb - IVPB 100 mls/hr Q8H-IV MAGEN Administration Insulin Aspart 0 vial 08/20/16 16:30 08/21/16 16:31 Novolog Vial Sliding Scale - SQ 8 units ACHS MAGEN Administration Protocol Insulin Detemir 70 units 08/18/16 07:00 08/21/16 06:10 Levemir Vial SQ Not Given AM MAGEN Lactobacillus Acidophilus 1 tab 08/21/16 10:00 08/21/16 12:11 Bacid - PO 1 tab BID MAGEN Administration Lorazepam 0.5 mg 08/11/16 22:00 08/20/16 21:13 Ativan - PO 0.5 mg HS MAGEN Administration Losartan Potassium 25 mg 08/11/16 12:30 08/21/16 12:12 Cozaar - PO 25 mg DAILY MAGEN Administration Mupirocin 1 applic 08/16/16 22:00 08/21/16 12:17 Bactroban 2% Ointment - TP 1 applic BID MAGEN Administration Oxycodone HCl 5 mg 08/18/16 03:14 08/21/16 21:00 Roxicodone - PO 5 mg Q4H PRN Administration PAIN Pantoprazole Sodium 40 mg 08/17/16 10:00 08/21/16 12:14 Protonix - PO 40 mg DAILY MAGEN Administration Potassium Chloride 20 meq 08/13/16 10:00 08/21/16 12:14 Potassium Chloride Oral Liquid PO 20 meq DAILY MAGEN Administration Ranitidine HCl 150 mg 08/11/16 07:00 08/21/16 06:11 Zantac - PO Not Given AM MAGEN Rivaroxaban 20 mg 08/11/16 10:00 08/21/16 12:15 Xarelto - PO 20 mg DAILY MAGEN Administration Senna/Docusate Sodium 2 tablet 08/11/16 22:00 08/20/16 21:13 Pericolace - PO 2 tablet HS MAGEN Administration Tamsulosin HCl 0.4 mg 08/11/16 08:30 08/21/16 12:14 Flomax - PO 0.4 mg DAILY@0830 MAGEN Administration Torsemide 200 mg 08/11/16 10:00 08/21/16 12:12 Demadex - PO 200 mg DAILY MAGEN Administration ASSESSMENT/PLAN: 61 y/o male with history of systolic CHF, DM, Ischemic CM, Afib/DVT, CKD who presented with sepsis and SOB found to be septic 2/2 UTI # Sepsis with persistent bacteremia - resolved - Patient initially presented with fever, tachycardia, with dysuria, prompting US which was positive - Patient was started on empiric Zosyn 2.25mg Q8 IV (renal dosing) and Vancomycin 1250mg IV QD - Urine cx and Blood cx both grew E.coli, antibiotics de-escalated to Cefazolin , treated for 4 days, f/u blood cx was negative - On 08/12 night patient spiked fever (Tmax 102.8) with tachycardia (HR 99) and WBC trending up (8.0 --> 10.4) prompting new Blood cultures to be drawn and antibiotic escalation to Meropenem 1g Q8 IV --> new blood cx grew E.Coli - Patient was scanned for any possible source of acute infection with CTs, U/S, and HIDA. - Sources to consider now are static urine building up bacteria (post-void bladder scan was 124ml) --> bacteremia OR prostatitis (CT shows mild/mod enlargement and patient has chronic urgency and frequency) - Antibiotics de-escalated to Cefazolin 2g Q8, ID recommends d/c with PICC line for 3 weeks w/ IV cefazolin + PO levoquin 250mg QD for another 3 weeks (total 6 weeks for prostatitis) # Cirrhotic Liver on U/S - Could be due to Hep B chronic vs cardiac cirrhosis (congestive hepatopathy), or Hughes - F/u outpatient # Poorly controlled Diabetes Mellitus - Hgb A1c 10.5 this admission, on Levemir 70QD and Victoza at home - Due to episode of hypoglycemia, patient was switched to 50 and titrated up to 60 --> 65 --> 70, AM sugars now 153 - Continue Sliding scale insulin - Neuropathic pain during hospitalization, started Gabapentin 100mg QD as DM is poorly controlled. Temporarily relieved by Benedryl, so started patient on Benedryl 25mg QHS #L 3rd Toe Nail Bed Ulcer - Podiatry on board, excisional debridement of L third toe done at bedside with scissors, no deep pus or ulcer noted - Given rx for bactroban and DSD daily to toe - XR L foot showed no signs of osteomyelitis # Acute Systolic CHF - Patient clinically looks euvolemic - Continue torsamide 200mg PO QD and carvedilol 6.25 mg PO BID - Patient is not on Aspirin because he is on Xarelto # H/o Atrial Fibrillation - Continue Xarelto 20mg PO QD #H/o COPD on home oxygen 3L NC RTC - Continue patient on 2L NC - As per Pulmonary reccs keep O2 sat >95 - Continue duoneb Q4 PRN - Check pre/post exercise O2 to assess need for home O2 #H/o Gout -Continue allopurinol 100mg PO QD -Patient is on BID dose at home, decreased due to MARCIAL #H/o Depression -Continue fluoxetine 40mg PO QD # CKD - Patient's Baseline Cr is 1.7 - 2.0 - Current Cr is 1.5. #L Shoulder RTC Tear - Chronic - F/u with Ortho Dr. Cisneros as outpatient #Pulmonary Nodules - Found incidentally on Chest CT - F/u as outpatient # FEN: - Not on IV fluids. - Electrolytes to be repeated tomorrow - Diabetic diet # Prophylaxis - For DVT: Already on Xarelto - For GI: Protonix 40mg QD, as per cardio reccs # Code Status - Full Code Visit type - Emergency Visit Emergency Visit: No - New Patient This patient is new to me today: No - Critical Care Critical Care patient: No
[2016-08-21] MEDS: SENNOSIDES/DOCUSATE COMBO (SENNA PLUS) TABLET (UD) PO SCH (23:25)
[2016-08-21] MEDS: ATORVASTATIN CA 40 MG TABLET (FP) PO SCH (23:26)
[2016-08-21] MEDS: FLUoxetine HCL 20 MG CAPSULE (FP) PO SCH (23:26)
[2016-08-21] MEDS: LORazepam 0.5 MG TABLET PO SCH (23:26)
[2016-08-21] MEDS: diphenhydrAMINE HCL 25 MG CAPSULE (FP) PO SCH (23:26)
[2016-08-22] MEDS: CEFAZOLIN 2 GM/D5W 50 ML IVPB SCH ×3 (01:47→18:07)
[2016-08-22] MEDS: oxyCODONE HCL 5 MG TABLET PO PRN ×2 (04:21→23:33)
[2016-08-22] MEDS: INSULIN SLIDING SCALE (NOVOLOG) 1 VIAL SQ SCH ×4 (06:00→23:39)
[2016-08-22] MEDS: INSULIN DETEMIR 100 UNITS/ML MDV SQ SCH (06:00)
[2016-08-22] MEDS: RANITIDINE HCL 150 MG TABLET (FP) PO SCH (06:01)
--- NOTE | 2016-08-22 06:48 | PN ---
Physical Exam: SUBJECTIVE: Patient seen and examined this AM. No complains, resting comfortably with at bedside. Notified by nurse that AM FSG was 406, asymptomatic, will recheck after giving Insulin. Pt admits to eating sugary apple sauce and cookies last night. Advised patient to watch diet. OBJECTIVE: Vital Signs Period Temp Pulse Resp BP Sys/Mcconnell Pulse Ox Last 24 Hr 97.6 F-99.3 F 66-78 18-20 101-107/51-62 97-99 GENERAL: The patient is awake, alert, and fully oriented, in no acute distress. Patient is hard of hearing, wears hearing aids EYES: PERRL, extraocular movements intact . LUNGS: Breath sounds equal, clear to auscultation bilaterally, no wheezes, no crackles, no accessory muscle use. HEART: Regular rate and rhythm, S1, S2 without murmur, rub or gallop. 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 NEUROLOGICAL: AAOx3, no facial droop. Cranial nerves II through XII grossly intact. Normal speech, gait not observed. Laboratory Results - last 24 hr 08/19/16 08/21/16 08/21/16 06:00 11:46 12:25 POC Glucometer 198 Iron 60 TIBC 228 L Iron Saturation 26 Tumor Marker AFP 2.0 Urine Color Ltyellow Urine Appearance Clear Urine pH 6.0 Ur Specific Reed 1.010 Urine Protein Negative Urine Glucose (UA) Negative Urine Ketones Negative Urine Blood Negative Urine Nitrite Negative Urine Bilirubin Negative Urine Urobilinogen Negative Ur Leukocyte Esterase Negative NUPUR Screen Negative Hepatitis A Ab Total Negative Hep Bs Antigen Negative Hep Bs Antibody Reactive Hep B Core Total Ab Positive H Hepatitis C Antibody 0.5 08/21/16 08/21/16 08/22/16 16:29 23:21 05:54 POC Glucometer 296 315 406 Iron TIBC Iron Saturation Tumor Marker AFP Urine Color Urine Appearance Urine pH Ur Specific Reed Urine Protein Urine Glucose (UA) Urine Ketones Urine Blood Urine Nitrite Urine Bilirubin Urine Urobilinogen Ur Leukocyte Esterase NUPUR Screen Hepatitis A Ab Total Hep Bs Antigen Hep Bs Antibody Hep B Core Total Ab Hepatitis C Antibody Active Medications Generic Name Dose Route Start Last Admin Trade Name Michaelle PRN Reason Stop Dose Admin Acetaminophen 650 mg 08/13/16 18:29 08/19/16 21:37 Tylenol - PO 650 mg Q6H PRN Administration FEVER Allopurinol 100 mg 08/11/16 10:00 08/21/16 12:15 Zyloprim - PO 100 mg DAILY MAGEN Administration Atorvastatin Calcium 40 mg 08/11/16 22:00 08/21/16 23:26 Lipitor - PO 40 mg HS MAGEN Administration Carvedilol 6.25 mg 08/11/16 10:00 08/21/16 23:25 Coreg - PO 6.25 mg BID MAGEN Administration Cholecalciferol 400 unit 08/11/16 10:00 08/21/16 12:15 Vitamin D3 - PO 400 unit DAILY MAGEN Administration Diphenhydramine HCl 25 mg 08/17/16 22:00 08/21/16 23:26 Benadryl - PO 25 mg HS MAGEN Administration Fluoxetine HCl 40 mg 08/11/16 22:00 08/21/16 23:26 Prozac - PO 40 mg HS MAGEN Administration Gabapentin 100 mg 08/20/16 10:00 08/21/16 23:25 Neurontin - PO 100 mg BID MAGEN Administration Cefazolin Sodium/Dextrose 50 mls @ 100 mls/hr 08/17/16 02:45 08/22/16 01:47 Ancef 2 Gm Premixed Ivpb - IVPB 100 mls/hr Q8H-IV MAGEN Administration Insulin Aspart 0 vial 08/20/16 16:30 08/22/16 06:00 Novolog Vial Sliding Scale - SQ 12 units ACHS MAGEN Administration Protocol Insulin Detemir 70 units 08/18/16 07:00 08/22/16 06:00 Levemir Vial SQ 70 unit AM MAGEN Administration Lactobacillus Acidophilus 1 tab 08/21/16 10:00 08/21/16 23:26 Bacid - PO 1 tab BID MAGEN Administration Lorazepam 0.5 mg 08/11/16 22:00 08/21/16 23:26 Ativan - PO 0.5 mg HS MAGEN Administration Losartan Potassium 25 mg 08/11/16 12:30 08/21/16 12:12 Cozaar - PO 25 mg DAILY MAGEN Administration Mupirocin 1 applic 08/16/16 22:00 08/21/16 23:52 Bactroban 2% Ointment - TP 1 applic BID MAGEN Administration Oxycodone HCl 5 mg 08/18/16 03:14 08/22/16 04:21 Roxicodone - PO 5 mg Q4H PRN Administration PAIN Pantoprazole Sodium 40 mg 08/17/16 10:00 08/21/16 12:14 Protonix - PO 40 mg DAILY MAGEN Administration Potassium Chloride 20 meq 08/13/16 10:00 08/21/16 12:14 Potassium Chloride Oral Liquid PO 20 meq DAILY MAGEN Administration Ranitidine HCl 150 mg 08/11/16 07:00 08/22/16 06:01 Zantac - PO 150 mg AM MAGEN Administration Rivaroxaban 20 mg 08/11/16 10:00 08/21/16 12:15 Xarelto - PO 20 mg DAILY MAGEN Administration Senna/Docusate Sodium 2 tablet 08/11/16 22:00 08/21/16 23:25 Pericolace - PO 2 tablet HS MAGEN Administration Tamsulosin HCl 0.4 mg 08/11/16 08:30 08/21/16 12:14 Flomax - PO 0.4 mg DAILY@0830 MAGEN Administration Torsemide 200 mg 08/11/16 10:00 08/21/16 12:12 Demadex - PO 200 mg DAILY MAGEN Administration ASSESSMENT/PLAN: 61 y/o male with history of systolic CHF, DM, Ischemic CM, Afib/DVT, CKD who presented with sepsis and SOB found to be septic 2/2 UTI # Sepsis with persistent bacteremia - resolved - Patient initially presented with fever, tachycardia, with dysuria, prompting US which was positive - Patient was started on empiric Zosyn 2.25mg Q8 IV (renal dosing) and Vancomycin 1250mg IV QD - Urine cx and Blood cx both grew E.coli, antibiotics de-escalated to Cefazolin , treated for 4 days, f/u blood cx was negative - On 08/12 night patient spiked fever (Tmax 102.8) with tachycardia (HR 99) and WBC trending up (8.0 --> 10.4) prompting new Blood cultures to be drawn and antibiotic escalation to Meropenem 1g Q8 IV --> new blood cx grew E.Coli - Patient was scanned for any possible source of acute infection with CTs, U/S, and HIDA. - Sources to consider now are static urine building up bacteria (post-void bladder scan was 124ml) --> bacteremia OR prostatitis (CT shows mild/mod enlargement and patient has chronic urgency and frequency) - Antibiotics de-escalated to Cefazolin 2g Q8, ID recommends d/c with PICC line for 3 weeks w/ IV cefazolin + PO levoquin 250mg QD for another 3 weeks (total 6 weeks for prostatitis) # Cirrhotic Liver on U/S - Could be due to Hep B chronic vs cardiac cirrhosis (congestive hepatopathy), or Hughes - F/u outpatient # Poorly controlled Diabetes Mellitus - Hgb A1c 10.5 this admission, on Levemir 70QD and Victoza at home - Continue Sliding scale insulin - Neuropathic pain during hospitalization, started Gabapentin 100mg QD as DM is poorly controlled. Temporarily relieved by Benedryl, so started patient on Benedryl 25mg QHS #L 3rd Toe Nail Bed Ulcer - Podiatry on board, excisional debridement of L third toe done at bedside with scissors, no deep pus or ulcer noted - Given rx for bactroban and DSD daily to toe - XR L foot showed no signs of osteomyelitis # Acute Systolic CHF - Patient clinically looks euvolemic - Continue torsamide 200mg PO QD and carvedilol 6.25 mg PO BID - Patient is not on Aspirin because he is on Xarelto # H/o Atrial Fibrillation - Continue Xarelto 20mg PO QD #H/o COPD on home oxygen 3L NC RTC - Continue patient on 2L NC - As per Pulmonary reccs keep O2 sat >95 - Continue duoneb Q4 PRN - Check pre/post exercise O2 to assess need for home O2 #H/o Gout -Continue allopurinol 100mg PO QD -Patient is on BID dose at home, decreased due to MARCIAL #H/o Depression -Continue fluoxetine 40mg PO QD # CKD - Patient's Baseline Cr is 1.7 - 2.0 - Current Cr is 1.5. #L Shoulder RTC Tear - Chronic - F/u with Ortho Dr. Cisneros as outpatient #Pulmonary Nodules - Found incidentally on Chest CT - F/u as outpatient # FEN: - Not on IV fluids. - Electrolytes to be repeated tomorrow - Diabetic diet # Prophylaxis - For DVT: Already on Xarelto - For GI: Protonix 40mg QD, as per cardio reccs # Dsiposition - Tomorrow, awaiting authoriazation from insurance # Code Status - Full Code Visit type - Emergency Visit Emergency Visit: No - New Patient This patient is new to me today: No - Critical Care Critical Care patient: No
[2016-08-22 08:11] LABS: ALBUMIN 2.6 g/dl (3.4-5.0); ANION GAP 10 (8-16); BILIRUBIN,TOTAL 0.7 mg/dL (0.2-1.0); CALCIUM 8.2 mg/dL (8.5-10.1); CO2 29 mmol/L (21-32); CREATININE 1.6 mg/dL (0.7-1.3); SGOT/AST 34 U/L (15-37); SGPT/ALT 19 U/L (12-78); TOT PROT 6.9 g/dl (6.4-8.2)
[2016-08-22 08:12] LABS: ALK PHOS 688 U/L (45-117)
[2016-08-22 08:56] LABS: GLUCOSE,RANDOM 345 mg/dL (74-106)
[2016-08-22] MEDS: POTASSIUM CHLORIDE ORAL LIQUID 20 MEQ/15 ML PO SCH (10:37)
[2016-08-22] MEDS: RIVAROXABAN 20 MG TABLET PO SCH (10:38)
[2016-08-22] MEDS: CHOLECALCIFEROL (VITAMIN D3) 400 UNIT TABLET (FP) PO SCH (10:38)
[2016-08-22] MEDS: ALLOPURINOL 100 MG TABLET (FP) PO SCH (10:38)
[2016-08-22] MEDS: LACTOBACILLUS ACIDOPHILUS 1 EACH TAB (FP) PO SCH ×2 (10:38→22:37)
[2016-08-22] MEDS: GABAPENTIN 100 MG CAPSULE (FP) PO SCH ×2 (10:38→22:43)
[2016-08-22] MEDS: CARVEDILOL 6.25 MG TABLET (FP) PO SCH ×2 (10:38→22:37)
[2016-08-22] MEDS: PANTOPRAZOLE 40 MG TABLET (FP) PO SCH (10:38)
[2016-08-22] MEDS: LOSARTAN POTASSIUM 25 MG TABLET PO SCH (10:38)
[2016-08-22] MEDS: TAMSULOSIN HCL 0.4 MG CAP.ER.24H (FP) PO SCH (10:39)
[2016-08-22] MEDS: MUPIROCIN 2% TOPICAL OINTMENT 22 GM TUBE TP SCH ×2 (10:39→22:38)
[2016-08-22] MEDS ORDERED: PT OWN MED DRAWER 7, Y5N ONE ×2 (10:44→22:41)
[2016-08-22] MEDS: TORSEMIDE 100 MG TABLET PO SCH (10:51)
--- NOTE | 2016-08-22 12:05 | PN ---
Progress Note (short form) - Note Progress Note: Denies shortness of breath or chest pain. Tolerating PO intake. No fevers or chills. No acute events overnight. Intake & Output 08/19/16 08/20/16 08/21/16 08/22/16 23:59 23:59 23:59 23:59 Intake Total 100 620 440 200 Output Total 600 Balance 100 620 -160 200 Weight 251 lb 8 oz 247 lb 3.2 oz 246 lb 7 oz 248 lb 3 oz Last Vital Signs Temp Pulse Resp BP Pulse Ox 97.5 F L 60 20 114/57 97 08/22/16 06:53 08/22/16 06:53 08/22/16 06:53 08/22/16 06:53 08/21/16 21:00 Active Medications Acetaminophen (Tylenol -) 650 mg PO Q6H PRN PRN Reason: FEVER Last Admin: 08/19/16 21:37 Dose: 650 mg Allopurinol (Zyloprim -) 100 mg PO DAILY [facility] Last Admin: 08/22/16 10:38 Dose: 100 mg Atorvastatin Calcium (Lipitor -) 40 mg PO HS [facility] Last Admin: 08/21/16 23:26 Dose: 40 mg Carvedilol (Coreg -) 6.25 mg PO BID [facility] Last Admin: 08/22/16 10:38 Dose: 6.25 mg Cholecalciferol (Vitamin D3 -) 400 unit PO DAILY [facility] Last Admin: 08/22/16 10:38 Dose: 400 unit Diphenhydramine HCl (Benadryl -) 25 mg PO HS [facility] Last Admin: 08/21/16 23:26 Dose: 25 mg Fluoxetine HCl (Prozac -) 40 mg PO HS [facility] Last Admin: 08/21/16 23:26 Dose: 40 mg Gabapentin (Neurontin -) 100 mg PO BID [facility] Last Admin: 08/22/16 10:38 Dose: 100 mg Cefazolin Sodium/Dextrose (Ancef 2 Gm Premixed Ivpb -) 50 mls @ 100 mls/hr IVPB Q8H-IV [facility] Last Admin: 08/22/16 10:37 Dose: 100 mls/hr Insulin Aspart (Novolog Vial Sliding Scale -) 0 vial SQ ACHS MAGEN PRN Reason: Protocol Last Admin: 08/22/16 06:00 Dose: 12 units Insulin Detemir (Levemir Vial) 70 units SQ AM [facility] Last Admin: 08/22/16 06:00 Dose: 70 unit Lactobacillus Acidophilus (Bacid -) 1 tab PO BID [facility] Last Admin: 08/22/16 10:38 Dose: 1 tab Lorazepam (Ativan -) 0.5 mg PO HS [facility] Last Admin: 08/21/16 23:26 Dose: 0.5 mg Losartan Potassium (Cozaar -) 25 mg PO DAILY [facility] Last Admin: 08/22/16 10:38 Dose: 25 mg Mupirocin (Bactroban 2% Ointment -) 1 applic TP BID [facility] Last Admin: 08/22/16 10:39 Dose: 1 applic Oxycodone HCl (Roxicodone -) 5 mg PO Q4H PRN PRN Reason: PAIN Last Admin: 08/22/16 04:21 Dose: 5 mg Pantoprazole Sodium (Protonix -) 40 mg PO DAILY [facility] Last Admin: 08/22/16 10:38 Dose: 40 mg Potassium Chloride (Potassium Chloride Oral Liquid) 20 meq PO DAILY [facility] Last Admin: 08/22/16 10:37 Dose: 20 meq Ranitidine HCl (Zantac -) 150 mg PO AM [facility] Last Admin: 08/22/16 06:01 Dose: 150 mg Rivaroxaban (Xarelto -) 20 mg PO DAILY [facility] Last Admin: 08/22/16 10:38 Dose: 20 mg Senna/Docusate Sodium (Pericolace -) 2 tablet PO HS [facility] Last Admin: 08/21/16 23:25 Dose: 2 tablet Tamsulosin HCl (Flomax -) 0.4 mg PO DAILY@0830 [facility] Last Admin: 08/22/16 10:39 Dose: 0.4 mg Torsemide (Demadex -) 200 mg PO DAILY [facility] Last Admin: 08/22/16 10:51 Dose: 200 mg Gen: NAD at rest Heart: RRR Lung: decreased breath sounds at the bases Abd: soft, nontender Ext: no edema, chronic changes Laboratory Results - last 24 hr 08/20/16 08/20/16 08/20/16 12:07 17:20 21:10 POC Glucometer 316 106 196 08/21/16 08/21/16 05:38 11:46 POC Glucometer 218 198 IMP: Cholecystitis (?) UTI E coli Bacteremia LV Systolic Dysfunction Pulmonary HTN HTN DM Atrial fibrillation Acute on Chronic Renal Failure Enlarged paratracheal LN / Lung Nodules/Infiltrates COPD - ABX per ID - rate controlled - continue anticoagulation - O2 to keep SpO2 >90% - will need outpatient f/u for CT chest findings in [address] Milian
[2016-08-22] MEDS ORDERED: PICC LINE 8 ML FLUSH PROTOCOL IVPUSH PRN (13:27)
--- NOTE | 2016-08-22 13:41 | PN ---
Progress Note, Physician Chief Complaint: Not in distress Feels better Events noted History of Present Illness: Patient was seen and examined. Awake and alert. Chart was reviewed Denies chest pain, SOB or palpitations Await SNF for further IV antibiotic therapy - Current Medication List Current Medications: Active Medications Acetaminophen (Tylenol -) 650 mg PO Q6H PRN PRN Reason: FEVER Last Admin: 08/19/16 21:37 Dose: 650 mg Allopurinol (Zyloprim -) 100 mg PO DAILY [facility] Last Admin: 08/22/16 10:38 Dose: 100 mg Atorvastatin Calcium (Lipitor -) 40 mg PO HS [facility] Last Admin: 08/21/16 23:26 Dose: 40 mg Carvedilol (Coreg -) 6.25 mg PO BID [facility] Last Admin: 08/22/16 10:38 Dose: 6.25 mg Cholecalciferol (Vitamin D3 -) 400 unit PO DAILY [facility] Last Admin: 08/22/16 10:38 Dose: 400 unit Diphenhydramine HCl (Benadryl -) 25 mg PO HS [facility] Last Admin: 08/21/16 23:26 Dose: 25 mg Fluoxetine HCl (Prozac -) 40 mg PO HS [facility] Last Admin: 08/21/16 23:26 Dose: 40 mg Gabapentin (Neurontin -) 100 mg PO BID [facility] Last Admin: 08/22/16 10:38 Dose: 100 mg IV Flush (Picc Line Flush) 8 ml IVPUSH PRN PRN PRN Reason: Protocol Cefazolin Sodium/Dextrose (Ancef 2 Gm Premixed Ivpb -) 50 mls @ 100 mls/hr IVPB Q8H-IV [facility] Last Admin: 08/22/16 10:37 Dose: 100 mls/hr Insulin Aspart (Novolog Vial Sliding Scale -) 0 vial SQ ACHS [facility] PRN Reason: Protocol Last Admin: 08/22/16 12:24 Dose: 10 units Insulin Detemir (Levemir Vial) 70 units SQ AM [facility] Last Admin: 08/22/16 06:00 Dose: 70 unit Lactobacillus Acidophilus (Bacid -) 1 tab PO BID [facility] Last Admin: 08/22/16 10:38 Dose: 1 tab Lorazepam (Ativan -) 0.5 mg PO HS [facility] Last Admin: 08/21/16 23:26 Dose: 0.5 mg Losartan Potassium (Cozaar -) 25 mg PO DAILY [facility] Last Admin: 08/22/16 10:38 Dose: 25 mg Mupirocin (Bactroban 2% Ointment -) 1 applic TP BID [facility] Last Admin: 08/22/16 10:39 Dose: 1 applic Oxycodone HCl (Roxicodone -) 5 mg PO Q4H PRN PRN Reason: PAIN Last Admin: 08/22/16 04:21 Dose: 5 mg Pantoprazole Sodium (Protonix -) 40 mg PO DAILY [facility] Last Admin: 08/22/16 10:38 Dose: 40 mg Potassium Chloride (Potassium Chloride Oral Liquid) 20 meq PO DAILY [facility] Last Admin: 08/22/16 10:37 Dose: 20 meq Ranitidine HCl (Zantac -) 150 mg PO AM [facility] Last Admin: 08/22/16 06:01 Dose: 150 mg Rivaroxaban (Xarelto -) 20 mg PO DAILY [facility] Last Admin: 08/22/16 10:38 Dose: 20 mg Senna/Docusate Sodium (Pericolace -) 2 tablet PO HS [facility] Last Admin: 08/21/16 23:25 Dose: 2 tablet Tamsulosin HCl (Flomax -) 0.4 mg PO DAILY@0830 [facility] Last Admin: 08/22/16 10:39 Dose: 0.4 mg Torsemide (Demadex -) 200 mg PO DAILY [facility] Last Admin: 08/22/16 10:51 Dose: 200 mg - Objective Vital Signs: Vital Signs Temperature 97.5 F L 08/22/16 06:53 Pulse Rate 60 08/22/16 06:53 Respiratory Rate 20 08/22/16 06:53 Blood Pressure 114/57 08/22/16 06:53 O2 Sat by Pulse Oximetry (%) 97 08/21/16 21:00 Neck: Yes: Supple Cardiovascular: Yes: Regular Rate and Rhythm, S1, S2 Respiratory: Yes: CTA Bilaterally Gastrointestinal: Yes: Normal Bowel Sounds, Soft. No: Tenderness Edema: No Labs: CBC, BMP 08/20/16 06:05 08/22/16 06:00 Problem List - Problems (1) Diabetes mellitus Code(s): E11.9 - TYPE 2 DIABETES MELLITUS WITHOUT COMPLICATIONS Qualifiers: Diabetes mellitus type: type 2 Diabetes mellitus complication status: with kidney complications Diabetes mellitus complication detail: with chronic kidney disease Diabetes mellitus intermodal customer service insulin use: with custodial use Chronic kidney disease stage: stage 4 (severe) Qualified Code(s): E11.22 - Type 2 diabetes mellitus with diabetic chronic kidney disease ; N18.1 - Chronic kidney disease, stage 1; Z79.4 - intermediate (current) use of insulin (2) Sepsis Code(s): A41.9 - SEPSIS, UNSPECIFIED ORGANISM Qualifiers: Sepsis type: sepsis due to unspecified organism Qualified Code(s): A41.9 - Sepsis, unspecified organism (3) CKD (chronic kidney disease) Code(s): N18.9 - CHRONIC KIDNEY DISEASE, UNSPECIFIED Qualifiers: Chronic kidney disease stage: stage 3 (moderate) Qualified Code(s): N18.3 - Chronic kidney disease, stage 3 (moderate) (4) Acute and chronic respiratory failure with hypoxia Code(s): J96.21 - ACUTE AND CHRONIC RESPIRATORY FAILURE WITH HYPOXIA (5) Acute on chronic systolic and diastolic heart failure, NYHA class 4 Code(s): I50.43 - ACUTE ON CHRONIC COMBINED SYSTOLIC AND DIASTOLIC HRT FAIL (6) COPD (chronic obstructive pulmonary disease) Code(s): J44.9 - CHRONIC OBSTRUCTIVE PULMONARY DISEASE, UNSPECIFIED Qualifiers : COPD type: chronic bronchitis (7) Deep venous thrombosis Code(s): I82.409 - ACUTE EMBOLISM AND THOMBOS UNSP DEEP VN UNSP LOWER EXTREMITY Qualifiers: DVT location: lower extremity Affected thrombotic vein of extremity: unspecified vein of extremity Chronicity: acute Laterality: right Qualified Code(s): I82.401 - Acute embolism and thrombosis of unspecified deep veins of right lower extremity (8) Dyspnea on exertion Code(s): R06.09 - OTHER FORMS OF DYSPNEA (9) Elevated troponin I level Code(s): R79.89 - OTHER SPECIFIED ABNORMAL FINDINGS OF BLOOD CHEMISTRY (10) Hx of CABG Code(s): Z95.1 - PRESENCE OF AORTOCORONARY BYPASS GRAFT (11) Ischemic cardiomyopathy Code(s): I25.5 - ISCHEMIC CARDIOMYOPATHY (12) Lung nodule Code(s): R91.1 - SOLITARY PULMONARY NODULE (13) Morbid obesity Code(s): E66.01 - MORBID (SEVERE) OBESITY DUE TO EXCESS CALORIES Qualifiers: Obesity type: due to excess calories Qualified Code(s): E66.01 - Morbid (severe) obesity due to excess calories (14) Severe left ventricular systolic dysfunction Code(s): I51.9 - HEART DISEASE, UNSPECIFIED (15) Single implantable cardioverter-defibrillator (ICD) in situ Code(s): Z95.810 - PRESENCE OF AUTOMATIC (IMPLANTABLE) CARDIAC DEFIBRILLATOR (16) ASHD (arteriosclerotic heart disease) Code(s): I25.10 - ATHSCL HEART DISEASE OF [place] CORONARY ARTERY W/O ANG PCTRS Assessment/Plan 1. LV systolic failure with chronic class II-III NYHA classification heart failure (ischemic dilated cardiomyopathy with pulmonary HTN) 2. Urosepsis with aleman-sensitive E. coli bacteremia, history of MRSA, recurrent fever 3. CAD post CABG, angina pectoris 4. History of cardiac arrest post ICD 5. Persistent atrial fibrillation on NOAC 6. HTN 7. DM 8. Hypercholesterolemia 9. History of CVA 10. Chronic hypoxic respiratory failure with home O2 dependent COPD and pulmonary nodules 11. OSAS noncompliant with CPAP 12. Acute on CKD 13. History of RLE DVT 14. Morbid obesity PLAN: 1. Continue Demadex with close monitoring of renal function 2. Continue Carvedilol 3. Continue Cozaar with close monitoring of renal function 4. Continue Atorvastatin 5. Continue Xarelto 6. GI prophylaxis 7. CPAP 8. Antibiotic course Further plans are to follow Leonel Hawley MD
--- NOTE | 2016-08-22 20:12 | PN ---
Teaching Attending Note Name of Resident: Juan José Carbajal ATTENDING PHYSICIAN STATEMENT I saw and evaluated the patient. I reviewed the resident's note and discussed the case with the resident. I agree with the resident's findings and plan as documented. SUBJECTIVE: Patient is feeling better, with no acute distress OBJECTIVE: Vital Signs Temperature 97.7 F 08/22/16 16:57 Pulse Rate 69 08/22/16 16:57 Respiratory Rate 20 08/22/16 16:57 Blood Pressure 107/64 08/22/16 16:57 O2 Sat by Pulse Oximetry (%) 97 08/22/16 09:00 PE: per resident's note CBCD WBC 8.7 K/mm3 (4.0-10.0) 08/20/16 06:05 RBC 3.62 M/mm3 (4.00-5.60) L 08/20/16 06:05 Hgb 11.1 GM/dL (11.7-16.9) L 08/20/16 06:05 Hct 33.1 % (35.4-49) L 08/20/16 06:05 MCV 91.3 fl (80-96) 08/20/16 06:05 MCHC 33.6 g/dl (32.0-35.9) 08/20/16 06:05 RDW 17.7 % (11.9-15.9) H 08/20/16 06:05 Plt Count 182 K/MM3 (134-434) 08/20/16 06:05 MPV 8.8 fl (7.5-11.1) 08/20/16 06:05 CMP Sodium 138 mmol/L (136-145) 08/22/16 06:00 Potassium 3.5 mmol/L (3.5-5.1) 08/22/16 06:00 Chloride 99 mmol/L (98-107) 08/22/16 06:00 Carbon Dioxide 29 mmol/L (21-32) 08/22/16 06:00 Anion Gap 10 (8-16) 08/22/16 06:00 BUN 34 mg/dL (7-18) H 08/22/16 06:00 Creatinine 1.6 mg/dL (0.7-1.3) H 08/22/16 06:00 Creat Clearance w eGFR 44.16 (>60) 08/22/16 06:00 Random Glucose 345 mg/dL (74-106) H* D 08/22/16 06:00 Calcium 8.2 mg/dL (8.5-10.1) L 08/22/16 06:00 Total Bilirubin 0.7 mg/dL (0.2-1.0) 08/22/16 06:00 AST 34 U/L (15-37) D 08/22/16 06:00 ALT 19 U/L (12-78) D 08/22/16 06:00 Alkaline Phosphatase 688 U/L (45-117) H 08/22/16 06:00 Total Protein 6.9 g/dl (6.4-8.2) 08/22/16 06:00 Albumin 2.6 g/dl (3.4-5.0) L 08/22/16 06:00 CARDIAC ENZYMES Creatine Kinase 124 IU/L (39-308) 08/08/16 21:35 Troponin I 0.05 ng/ml (0.00-0.05) 08/09/16 11:15 Current Medications Generic Name Dose Route Start Last Admin Trade Name Freq PRN Reason Stop Dose Admin Acetaminophen 650 mg 08/13/16 18:29 08/19/16 21:37 Tylenol - PO 650 mg Q6H PRN Administration FEVER Allopurinol 100 mg 08/11/16 10:00 08/22/16 10:38 Zyloprim - PO 100 mg DAILY MAGEN Administration Atorvastatin Calcium 40 mg 08/11/16 22:00 08/21/16 23:26 Lipitor - PO 40 mg HS [facility] Administration Carvedilol 6.25 mg 08/11/16 10:00 08/22/16 10:38 Coreg - PO 6.25 mg BID [facility] Administration Cholecalciferol 400 unit 08/11/16 10:00 08/22/16 10:38 Vitamin D3 - PO 400 unit DAILY [facility] Administration Diphenhydramine HCl 25 mg 08/17/16 22:00 08/21/16 23:26 Benadryl - PO 25 mg HS [facility] Administration Fluoxetine HCl 40 mg 08/11/16 22:00 08/21/16 23:26 Prozac - PO 40 mg HS [facility] Administration Gabapentin 100 mg 08/20/16 10:00 08/22/16 10:38 Neurontin - PO 100 mg BID [facility] Administration IV Flush 8 ml 08/22/16 13:27 Picc Line Flush IVPUSH PRN PRN Protocol Cefazolin Sodium/Dextrose 50 mls @ 100 mls/hr 08/17/16 02:45 08/22/16 18:07 Ancef 2 Gm Premixed Ivpb - IVPB 100 mls/hr Q8H-IV [facility] Administration Insulin Aspart 0 vial 08/20/16 16:30 08/22/16 17:53 Novolog Vial Sliding Scale - SQ 10 units ACHS [facility] Administration Protocol Insulin Detemir 70 units 08/18/16 07:00 08/22/16 06:00 Levemir Vial SQ 70 unit AM [facility] Administration Lactobacillus Acidophilus 1 tab 08/21/16 10:00 08/22/16 10:38 Bacid - PO 1 tab BID [facility] Administration Lorazepam 0.5 mg 08/11/16 22:00 08/21/16 23:26 Ativan - PO 0.5 mg HS [facility] Administration Losartan Potassium 25 mg 08/11/16 12:30 08/22/16 10:38 Cozaar - PO 25 mg DAILY [facility] Administration Mupirocin 1 applic 08/16/16 22:00 08/22/16 10:39 Bactroban 2% Ointment - TP 1 applic BID [facility] Administration Oxycodone HCl 5 mg 08/18/16 03:14 08/22/16 04:21 Roxicodone - PO 5 mg Q4H PRN Administration PAIN Pantoprazole Sodium 40 mg 08/17/16 10:00 08/22/16 10:38 Protonix - PO 40 mg DAILY [facility] Administration Potassium Chloride 20 meq 08/13/16 10:00 08/22/16 10:37 Potassium Chloride Oral Liquid PO 20 meq DAILY [facility] Administration Ranitidine HCl 150 mg 08/11/16 07:00 08/22/16 06:01 Zantac - PO 150 mg AM [facility] Administration Rivaroxaban 20 mg 08/11/16 10:00 08/22/16 10:38 Xarelto - PO 20 mg DAILY [facility] Administration Senna/Docusate Sodium 2 tablet 08/11/16 22:00 08/21/16 23:25 Pericolace - PO 2 tablet HS [facility] Administration Tamsulosin HCl 0.4 mg 08/11/16 08:30 08/22/16 10:39 Flomax - PO 0.4 mg DAILY@0830 [facility] Administration Torsemide 200 mg 08/11/16 10:00 08/22/16 10:51 Demadex - PO 200 mg DAILY [facility] Administration Home Medications Medication Instructions Recorded Acetaminophen with Codeine 1 each PO Q4HWA PRN 06/24/16 [Acetaminophen-Cod #3 Tablet] Allopurinol [Zyloprim -] 100 mg PO BID 06/24/16 Aspirin [ASA -] 81 mg PO AM 06/24/16 Atorvastatin Calcium 40 mg PO HS 06/24/16 Carvedilol [Coreg -] 6.25 mg PO BID 06/24/16 Cholecalciferol (Vitamin D3) 1,000 mg PO DAILY 06/24/16 [Vitamin D -] Colchicine 0.6 mg PO DAILY 06/24/16 Famotidine/Ca Carb/Mag Hydrox 1 each PO AM 06/24/16 [Pepcid Complete Tablet Chew] Fluoxetine HCl [Prozac] 40 mg PO HS 06/24/16 Insulin (Levemir) [Levemir Vial] 70 unit SQ AM 06/24/16 Insulin Regular, Human [Humulin R 15 - 20 unit SQ AC 06/24/16 U-500 Kwikpen] Ipratropium/Albuterol Sulfate 3 ml IH DAILY PRN 06/24/16 [Iprat-Albut 0.5-3(2.5) mg/3 ml] Liraglutide [Victoza -] 1.8 mg SQ DAILY@0700 06/24/16 Lorazepam 0.5 mg PO HS 06/24/16 Oxycodone HCl/Acetaminophen 1 each PO Q6H PRN 06/24/16 [Oxycodone-Acetaminophen 5-325] Rivaroxaban [Xarelto -] 15 mg PO DAILY 06/24/16 Sennosides/Docusate Sodium [Senna 8.6 mg PO HS 06/24/16 Laxative Tablet] Tamsulosin HCl [Flomax -] 0.4 mg PO DAILY 06/24/16 Torsemide 100 mg PO BID 06/24/16 Trazodone HCl 100 mg PO HS 06/24/16 Cefazolin Sodium in 0.9 % NaCl 2 gm IV Q8H #11 piggyback 08/22/16 [Cefazolin-0.9% NaCl 2 G/50 ml] Gabapentin 100 mg PO BID #15 capsule 08/22/16 Mupirocin Ointment [Bactroban] 1 applic TP TID #1 tube 08/22/16 CT of abd /pelvis with no abscess , but L shoulder with large effusion which could be septic, positive for infiltrate ASSESSMENT AND PLAN: 61 y/o man with h/o ICM , CKD , S CHF , CABG, s/p cardiac arrest , R LE DVT, and DM who presented with SOB and not feeling well and was found to have sepsis 2/2 UTI and bacteremia # E.Coli bacteremia due to UTI , continue IV antibiotic sensitive to Ancef as per ID :s/p sepsis , Discussed with , patient will need total of 21 days of IV antibiotic, remaining of 10 more days of Ancef , went for tunnele catheter today , needs to continue the 10 more days of IV ancef in rehab. and po levaquin 250 daily for another 3 weeks. Hida scan is negative as per ID total 3 weeks iv with cefazolin and then po levaquin 250 daily for another 3 weeks (total 6 weeks for prostatitis) # Pneumonia on IV antibiotic continue #DM better controlled now , on levemir to 70units daily , SSI , appreciated consult # Acute Systolic CHF : on demadex continue, cont coreg, on xarelto. # h/o Afib : cont xarelto CKD : base line Cr 1.7-2. monitor DVT Px: Xarelto waiting for rehab approval
[2016-08-22] MEDS: LORazepam 0.5 MG TABLET PO SCH (22:37)
[2016-08-22] MEDS: diphenhydrAMINE HCL 25 MG CAPSULE (FP) PO SCH (22:37)
[2016-08-22] MEDS: ATORVASTATIN CA 40 MG TABLET (FP) PO SCH (22:37)
[2016-08-22] MEDS: SENNOSIDES/DOCUSATE COMBO (SENNA PLUS) TABLET (UD) PO SCH (22:43)
[2016-08-22] MEDS: FLUoxetine HCL 20 MG CAPSULE (FP) PO SCH (22:43)
[2016-08-22] MEDS ORDERED: oxyCODONE HCL 5 MG TABLET PO ONE (23:28)
[2016-08-23] MEDS: CEFAZOLIN 2 GM/D5W 50 ML IVPB SCH ×2 (01:53→09:59)
[2016-08-23 05:48] VITALS: TEMP 98.2
[2016-08-23] MEDS: INSULIN DETEMIR 100 UNITS/ML MDV SQ SCH (06:16)
[2016-08-23] MEDS: RANITIDINE HCL 150 MG TABLET (FP) PO SCH (06:17)
[2016-08-23] MEDS: INSULIN SLIDING SCALE (NOVOLOG) 1 VIAL SQ SCH ×3 (06:17→16:26)
[2016-08-23] MEDS: oxyCODONE HCL 5 MG TABLET PO PRN (07:11)
--- NOTE | 2016-08-23 07:38 | DS ---
Physical Exam: SUBJECTIVE: Patient seen and examined this AM. Has no complaints. AM sugar is down to 113 after informing patient not to eat outside food. No fevers, no chills, no SOB, no CP OBJECTIVE: Vital Signs Period Temp Pulse Resp BP Sys/Mcconnell Pulse Ox Last 24 Hr 97.7 F-98.5 F 66-79 18-20 104-125/56-78 97-98 PHYSICAL EXAM GENERAL: The patient is awake, alert, and fully oriented, in no acute distress. Patient is hard of hearing, wears hearing aids EYES: PERRL, extraocular movements intact . LUNGS: Breath sounds equal, clear to auscultation bilaterally, no wheezes, no crackles, no accessory muscle use. HEART: Regular rate and rhythm, S1, S2 without murmur, rub or gallop. 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 NEUROLOGICAL: AAOx3, no facial droop. Cranial nerves II through XII grossly intact. Normal speech, gait not observed. LABS Laboratory Results - last 24 hr 08/22/16 08/22/16 08/22/16 06:00 12:16 17:09 Sodium 138 Potassium 3.5 Chloride 99 Carbon Dioxide 29 Anion Gap 10 BUN 34 H Creatinine 1.6 H Creat Clearance w eGFR 44.16 POC Glucometer 347 326 Random Glucose 345 H* D Calcium 8.2 L Total Bilirubin 0.7 AST 34 D ALT 19 D Alkaline Phosphatase 688 H Total Protein 6.9 Albumin 2.6 L 08/22/16 08/23/16 23:37 05:18 Sodium Potassium Chloride Carbon Dioxide Anion Gap BUN Creatinine Creat Clearance w eGFR POC Glucometer 254 113 Random Glucose Calcium Total Bilirubin AST ALT Alkaline Phosphatase Total Protein Albumin HOSPITAL COURSE: Date of Admission:08/08/16 Date of Discharge: 08/23/16 ASSESSMENT/PLAN: 61 y/o male with history of systolic CHF, DM, Ischemic CM, Afib/DVT, CKD who presented with sepsis and SOB found to be septic 2/2 UTI # Sepsis with persistent bacteremia - resolved - The patient initially presented with fever, tachycardia, with dysuria, prompting a Urine ANalysis which was positive showing UTI. The patient was started on empiric Zosyn 2.25mg Q8 IV (renal dosing) and Vancomycin 1250mg IV QD. Both Urine cx and Blood cx both grew E.coli, antibiotics de-escalated to Cefazolin, treated for 4 days, f/u blood cx was negative. On 08/12 night patient spiked fever (Tmax 102.8) with tachycardia (HR 99) and WBC trending up ( 8.0 --> 10.4) prompting new Blood cultures to be drawn and antibiotic escalation to Meropenem 1g Q8 IV --> new blood cx grew E.Coli. The patient was scanned for any possible source of acute infection with CTs, U/S, and HIDA. The sources to consider now are static urine building up bacteria (post-void bladder scan was 124ml) --> bacteremia OR prostatitis (CT shows mild/mod enlargement and patient has chronic urgency and frequency). The patient's antibiotics were de-escalated to Cefazolin 2g Q8. Patient was closely followed by the Infectious Disease doctors who now recommend that the patient be discharged to a subacute rehab facility with a PICC line for 10 more days ( total 3 weeks) w/ IV cefazolin + PO amoxicillin 500mg TID for another 3 weeks ( total 6 weeks for prostatitis) # Cirrhotic Liver on U/S - On a RUQ U/S the patient was found to have cirrhotic changes in his liver. It is known that patient has a remote hx of Hep B, could be from chronic Hep B or cardiac cirrhosis (congestive hepatopathy), or LOGAN - We advise the patient to f/u outpatient # Poorly controlled Diabetes Mellitus - The patient's Hgb A1c 10.5, and his blood glucose was monitored. At discharge his glucose was 197, and he was discharged on his home Tresiba 70 units SQ QD and with Novolog sliding scale. - The patient had neuropathic pain during the hospitalization, was started on Gabapentin 100mg QD with resolution. #L 3rd Toe Nail Bed Ulcer - The patient had a L 3rd toe nail bed ulcer and was seen by podiatry. An excisional debridement of the toe was done at [facility], no deep pus or deep ulcer was noted. The patient was given a prescription for bactroban and daily sterile dressing changes. Imaging (foot XR) showed no signs of osteomyelitis, and patient has since complained of no pain in the area # Acute Systolic CHF - The patient presented with symptoms of acute CHF but after diuresis the patient improved and clinically at discharge looks euvolemic. #L Shoulder RTC Tear - Chronic - The patient had R shoulder pain, and on imaging was found to have an effusion , the effusion was tapped, found not to be infected. Patient must F/u with Ortho Dr. Cisneros as outpatient #Pulmonary Nodules - These were found incidentally on Chest CT, patient must f/u with outpatient PCP for further imaging #Other: - H/o Atrial Fibrillation: During the hospitalization we continued Xarelto 20mg PO QD - H/o COPD on home oxygen - During the hospitalization we continued O2 2L, duonbs Q4 PRN - H/o Gout: During the hospitalization we continued allopurinol 100mg PO QD - H/o Depression: During the hospitalization we continued fluoxetine 40mg PO QD The patient was informed of these findings on discharge, and verbalized understanding. The patient is aware to followup with the appropriate physicians , including his PCP Discharge Summary Reason For Visit: SEPSIS; COPD; CHF; ELEVATED TROPONIN; CELLULITIS Current Active Problems E coli bacteremia (Acute) CKD (chronic kidney disease) (Chronic) COPD exacerbation (Chronic) Cirrhosis of liver (Chronic) Diabetes mellitus (Chronic) Gallstone (Chronic) Obstructive sleep apnea of adult (Chronic) Condition: Improved - Instructions Diet, Activity, Other Instructions: You came into the hospital because you had a urinary tract infection that eventually caused bacteria to go into your blood. We treated the infection, and you continued to have bacteria in your blood. Scans were performed and we believe that you have an infection of your prostate. WE are treating that with antibiotics. You must continue your antibiotics for 10 more days using a PICC line, then oral amoxicillin . You will be going to a subacute rehabilitation facility. Please take insulin sliding scale (newly added)- First check the blood sugar and according to your blood sugar 101-150- 0 unit of Insulin 151-200- 2 Units of Insulin; 201-250 4 Units of Insulin; 251-300 6 Units of insulin; 301-350 8units of Insulin; 351-400 10 Units of Insulin ; > 400 blood sugar 10 units of Insulin and call the Doctor. PLEASE PAY ATTENTION TO ANTIBIOTIC DOSAGE 1. Please continue PICC line for 10 more days of Cefazolin 2gm IV Q8h 2. AFTER the 10 days, please take Amoxicillin 500mg TID for 21 more days after that Please followup with your Primary Care Doctor and Urology and Infectious Disease doctor (Dr. Hernandez) PLease followup with Dr. Cisneros from Orthopedics for your R rotator cuff tear Please return to the ER if you have any serious symptoms Referrals: Raymond Hernandez MD [Staff Physician] - 2 Weeks Pb Cisneros MD [Staff Physician] - 2 Weeks James Britton MD [Staff Physician] - 2 Weeks Disposition: HALFWAY FACILITY - Home Medications Comprehensive Discharge Medication List: Ambulatory Orders Acetaminophen with Codeine [Acetaminophen-Cod #3 Tablet] 1 each PO Q4HWA PRN Allopurinol [Zyloprim -] 100 mg PO BID 06/24/16 Aspirin [ASA -] 81 mg PO AM 06/24/16 Atorvastatin Calcium 40 mg PO HS 06/24/16 Carvedilol [Coreg -] 6.25 mg PO BID 06/24/16 Cholecalciferol (Vitamin D3) [Vitamin D -] 1,000 mg PO DAILY 06/24/16 Colchicine 0.6 mg PO DAILY 06/24/16 Famotidine/Ca Carb/Mag Hydrox [Pepcid Complete Tablet Chew] 1 each PO AM Fluoxetine HCl [Prozac] 40 mg PO HS 06/24/16 Insulin (Levemir) [Levemir Vial] 70 unit SQ AM 06/24/16 Insulin Regular, Human [Humulin R U-500 Kwikpen] 15 - 20 unit SQ AC 06/24/16 Ipratropium/Albuterol Sulfate [Iprat-Albut 0.5-3(2.5) mg/3 ml] 3 ml IH DAILY PRN 06/24/16 Liraglutide [Victoza -] 1.8 mg SQ DAILY@0700 06/24/16 Lorazepam 0.5 mg PO HS 06/24/16 Oxycodone HCl/Acetaminophen [Oxycodone-Acetaminophen 5-325] 1 each PO Q6H PRN Rivaroxaban [Xarelto -] 15 mg PO DAILY 06/24/16 Sennosides/Docusate Sodium [Senna Laxative Tablet] 8.6 mg PO HS 06/24/16 Tamsulosin HCl [Flomax -] 0.4 mg PO DAILY 06/24/16 Torsemide 100 mg PO BID 06/24/16 Trazodone HCl 100 mg PO HS 06/24/16 Cefazolin Sodium in 0.9 % NaCl [Cefazolin-0.9% NaCl 2 G/50 ml] 2 gm IV Q8H #11 piggyback 08/22/16 Gabapentin 100 mg PO BID #15 capsule 08/22/16 Mupirocin Ointment [Bactroban] 1 applic TP TID #1 tube 08/22/16 - Discharge Referral Referred to [facility] No
[2016-08-23 08:07] LABS: ALPHA 2 MACROGLOBULINS,QN 236 mg/dL (110-276); BILIRUBIN TOTAL 0.4 mg/dL (0.0-1.2); FIBROSIS STAGE F3-F4 (.); GGT= 409 IU/L (0-65); GLUCOSE SERUM 254 mg/dL (65-99); HAPTOGLOBIN= 172 mg/dL (34-200); HEIGHT 69 Inches (.); TRIGLYCERIDES= 158 mg/dL (0-149)
[2016-08-23 08:12] LABS: MCH 30.6 pg (25.7-33.7); MCHC 33.5 g/dl (32.0-35.9); MEAN CELL VOLUME 91.4 fl (80-96); MEAN PLT VOLUME 8.9 fl (7.5-11.1); PLATELET COUNT 179 K/MM3 (134-434); RDW 17.6 % (11.9-15.9); WHITE BLOOD COUNT 7.8 K/mm3 (4.0-10.0)
[2016-08-23] MEDS: TAMSULOSIN HCL 0.4 MG CAP.ER.24H (FP) PO SCH (08:39)
--- NOTE | 2016-08-23 08:45 | PN ---
Progress Note (short form) - Note Progress Note: ID followup d/w medical service patient without complaints Vital Signs Period Temp Pulse Resp BP Sys/Mcconnell Pulse Ox Last 24 Hr 97.7 F-98.5 F 66-79 18-20 104-125/56-78 97-98 cor-rrr llungs clear abd soft,nt ext no edema CBC, BMP 08/23/16 06:30 a/p ecoli bacteremia (recurrent)- suspected prostatitis- prolonged QT noted, renal insufficiency at baseline will avoid quinolones and sulfa meds plan to complete cefazolin 3 weeks iv (from last positive blood culture) and then po amox 500 tid for another 3 weeks thanks! please call back if needed
[2016-08-23 09:30] LABS: ANION GAP 10 (8-16); CALCIUM 8.3 mg/dL (8.5-10.1); CO2 31 mmol/L (21-32); CREATININE 1.3 mg/dL (0.7-1.3); GLUCOSE,RANDOM 91 mg/dL (74-106)
[2016-08-23] MEDS ORDERED: PT OWN MED DRAWER 7, Y5N ONE (09:51)
[2016-08-23] MEDS: CARVEDILOL 6.25 MG TABLET (FP) PO SCH (09:56)
[2016-08-23] MEDS: LACTOBACILLUS ACIDOPHILUS 1 EACH TAB (FP) PO SCH (09:56)
[2016-08-23] MEDS: POTASSIUM CHLORIDE ORAL LIQUID 20 MEQ/15 ML PO SCH (09:57)
[2016-08-23] MEDS: LOSARTAN POTASSIUM 25 MG TABLET PO SCH (09:57)
[2016-08-23] MEDS: GABAPENTIN 100 MG CAPSULE (FP) PO SCH (09:57)
[2016-08-23] MEDS: TORSEMIDE 100 MG TABLET PO SCH (09:57)
[2016-08-23] MEDS: CHOLECALCIFEROL (VITAMIN D3) 400 UNIT TABLET (FP) PO SCH (09:58)
[2016-08-23] MEDS: PANTOPRAZOLE 40 MG TABLET (FP) PO SCH (09:58)
[2016-08-23] MEDS: ALLOPURINOL 100 MG TABLET (FP) PO SCH (09:58)
[2016-08-23] MEDS: RIVAROXABAN 20 MG TABLET PO SCH (09:58)
[2016-08-23] MEDS: MUPIROCIN 2% TOPICAL OINTMENT 22 GM TUBE TP SCH (09:59)
[2016-08-23] MEDS ORDERED: INSULIN (NOVOLOG) ASPART 100 UNITS/ML 10ML VIAL ONE (11:26)
[2016-08-23 11:56] LABS: MAGNESIUM 2.1 mg/dL (1.8-2.4)
[2016-08-23 15:12] VITALS: BP 110/78; PULSE 72
--- NOTE | 2016-08-23 15:50 | PN ---
Progress Note, Physician History of Present Illness: Resting comfortably, afebrile. HIDA scan neg for acute cholecystitis. - Current Medication List Current Medications: Active Medications Acetaminophen (Tylenol -) 650 mg PO Q6H PRN PRN Reason: FEVER Last Admin: 08/19/16 21:37 Dose: 650 mg Allopurinol (Zyloprim -) 100 mg PO DAILY [facility] Last Admin: 08/23/16 09:58 Dose: 100 mg Atorvastatin Calcium (Lipitor -) 40 mg PO HS [facility] Last Admin: 08/22/16 22:37 Dose: 40 mg Carvedilol (Coreg -) 6.25 mg PO BID [facility] Last Admin: 08/23/16 09:56 Dose: 6.25 mg Cholecalciferol (Vitamin D3 -) 400 unit PO DAILY [facility] Last Admin: 08/23/16 09:58 Dose: 400 unit Diphenhydramine HCl (Benadryl -) 25 mg PO HS [facility] Last Admin: 08/22/16 22:37 Dose: 25 mg Fluoxetine HCl (Prozac -) 40 mg PO HS [facility] Last Admin: 08/22/16 22:43 Dose: 40 mg Gabapentin (Neurontin -) 100 mg PO BID [facility] Last Admin: 08/23/16 09:57 Dose: 100 mg IV Flush (Picc Line Flush) 8 ml IVPUSH PRN PRN PRN Reason: Protocol Cefazolin Sodium/Dextrose (Ancef 2 Gm Premixed Ivpb -) 50 mls @ 100 mls/hr IVPB Q8H-IV [facility] Last Admin: 08/23/16 09:59 Dose: 100 mls/hr Insulin Aspart (Novolog Vial Sliding Scale -) 0 vial SQ ACHS MAGEN PRN Reason: Protocol Last Admin: 08/23/16 11:33 Dose: 6 units Insulin Detemir (Levemir Vial) 70 units SQ AM [facility] Last Admin: 08/23/16 06:16 Dose: 70 unit Lactobacillus Acidophilus (Bacid -) 1 tab PO BID [facility] Last Admin: 08/23/16 09:56 Dose: 1 tab Lorazepam (Ativan -) 0.5 mg PO HS [facility] Last Admin: 08/22/16 22:37 Dose: 0.5 mg Losartan Potassium (Cozaar -) 25 mg PO DAILY [facility] Last Admin: 08/23/16 09:57 Dose: 25 mg Mupirocin (Bactroban 2% Ointment -) 1 applic TP BID [facility] Last Admin: 08/23/16 09:59 Dose: 1 applic Oxycodone HCl (Roxicodone -) 5 mg PO Q4H PRN Last Admin: 08/23/16 07:11 Dose: 5 mg Pantoprazole Sodium (Protonix -) 40 mg PO DAILY [facility] Last Admin: 08/23/16 09:58 Dose: 40 mg Potassium Chloride (Potassium Chloride Oral Liquid) 20 meq PO DAILY [facility] Last Admin: 08/23/16 09:57 Dose: 20 meq Ranitidine HCl (Zantac -) 150 mg PO AM [facility] Last Admin: 08/23/16 06:17 Dose: 150 mg Rivaroxaban (Xarelto -) 20 mg PO DAILY [facility] Last Admin: 08/23/16 09:58 Dose: 20 mg Senna/Docusate Sodium (Pericolace -) 2 tablet PO HS [facility] Last Admin: 08/22/16 22:43 Dose: 2 tablet Tamsulosin HCl (Flomax -) 0.4 mg PO DAILY@0830 [facility] Last Admin: 08/23/16 08:39 Dose: 0.4 mg Torsemide (Demadex -) 200 mg PO DAILY [facility] Last Admin: 08/23/16 09:57 Dose: 200 mg - Objective Vital Signs: Vital Signs Temperature 98.2 F 08/23/16 15:06 Pulse Rate 72 08/23/16 15:06 Respiratory Rate 16 08/23/16 15:06 Blood Pressure 110/78 08/23/16 15:06 O2 Sat by Pulse Oximetry (%) 98 08/22/16 22:00 Constitutional: Yes: No Distress, Calm Neck: Yes: Supple Cardiovascular: Yes: Regular Rate and Rhythm Respiratory: Yes: Regular, Diminished Gastrointestinal: Yes: Normal Bowel Sounds, Soft, Abdomen, Obese Edema: No Labs: CBC, BMP 08/23/16 06:30 08/23/16 06:30 INR, PTT INR 1.62 (0.82-1.09) H 08/08/16 21:35 Problem List - Problems (1) Diabetes mellitus Code(s): E11.9 - TYPE 2 DIABETES MELLITUS WITHOUT COMPLICATIONS Qualifiers: Diabetes mellitus type: type 2 Diabetes mellitus complication status: with kidney complications Diabetes mellitus complication detail: with chronic kidney disease Diabetes mellitus intermediate manager insulin use: with residential use Chronic kidney disease stage: stage 4 (severe) Qualified Code(s): E11.22 - Type 2 diabetes mellitus with diabetic chronic kidney disease ; N18.1 - Chronic kidney disease, stage 1; Z79.4 - buttermaker (current) use of insulin (2) Sepsis Code(s): A41.9 - SEPSIS, UNSPECIFIED ORGANISM Qualifiers: Sepsis type: sepsis due to unspecified organism Qualified Code(s): A41.9 - Sepsis, unspecified organism (3) UTI (urinary tract infection) Code(s): N39.0 - URINARY TRACT INFECTION, SITE NOT SPECIFIED Qualifiers: Urinary tract infection type: site unspecified Hematuria presence: without hematuria Qualified Code(s): N39.0 - Urinary tract infection, site not specified (4) Acute on chronic systolic and diastolic heart failure, NYHA class 4 Code(s): I50.43 - ACUTE ON CHRONIC COMBINED SYSTOLIC AND DIASTOLIC HRT FAIL (5) COPD (chronic obstructive pulmonary disease) Code(s): J44.9 - CHRONIC OBSTRUCTIVE PULMONARY DISEASE, UNSPECIFIED Qualifiers : COPD type: chronic bronchitis (6) DVT prophylaxis Code(s): NIG1064 - (7) Hx of CABG Code(s): Z95.1 - PRESENCE OF AORTOCORONARY BYPASS GRAFT (8) Ischemic cardiomyopathy Code(s): I25.5 - ISCHEMIC CARDIOMYOPATHY (9) Morbid obesity Code(s): E66.01 - MORBID (SEVERE) OBESITY DUE TO EXCESS CALORIES (10) Poor compliance Code(s): Z91.19 - PATIENT'S NONCOMPLIANCE W OTH MEDICAL TREATMENT AND REGIMEN (11) S/P CABG (coronary artery bypass graft) Code(s): Z95.1 - PRESENCE OF AORTOCORONARY BYPASS GRAFT (12) Severe left ventricular systolic dysfunction Code(s): I51.9 - HEART DISEASE, UNSPECIFIED (13) Single implantable cardioverter-defibrillator (ICD) in situ Code(s): Z95.810 - PRESENCE OF AUTOMATIC (IMPLANTABLE) CARDIAC DEFIBRILLATOR (14) Tobacco abuse Code(s): Z72.0 - TOBACCO USE (15) ASHD (arteriosclerotic heart disease) Code(s): I25.10 - ATHSCL HEART DISEASE OF [place] CORONARY ARTERY W/O ANG PCTRS (16) Diabetes mellitus, insulin dependent (IDDM), uncontrolled Code(s): E10.65 - TYPE 1 DIABETES MELLITUS WITH HYPERGLYCEMIA Qualifiers: Diabetes mellitus complication detail: with polyneuropathy (17) Obstructive sleep apnea of adult Code(s): G47.33 - OBSTRUCTIVE SLEEP APNEA (ADULT) (PEDIATRIC) Assessment/Plan 08/14/2016 Echo: Severely decreased LV fxn, mod-severe decrease RV fxn, Tr-mild MR , tr TR 1. Chronic LV systolic failure with NYHA classification 3-4 heart failure with ischemic cardiomyopathy with pulm HTN 2. Urosepsis with aleman-sensitive E. coli bacteremia, PNA, h/o MRSA 3. CAD S/P CABG, angina pectoris 4. History of cardiac arrest S/P ICD 5. Chronic hypoxic respiratory failure with home O2 dependent COPD and pulmonary nodules 6. Type 2 diabetes mellitus 7. CVA 8. Acute on CKD resolved (now at baseline Cr 1.4-1.5) 9. Morbid obesity 10. History of RLE DVT 11. Persistent atrial fibrillation on NOAC 12. OSAS noncompliant with cpap 13. Cholestasis improving PLAN: 1. Continue Demadex 200 qd with monitor diuretic response, renal fxn and electrolytes, replete K, Mg as you are 2. Complete Ancef course via PICC 3. Continue Carvedilol 6.25 bid, Atorvastatin 40 qhs and Xarelto 20 qPM 4. Continue losartan 25 qd as renal fxn has stabilized 5. GI prophylaxis, cpap nightly 6. Chest CT results show left upper and lower lobe pulm infiltrates, for repeat CT as outpatient f/u 7. HIDA scan ruled out cystic duct obstruction 8. D/c planning
[2016-08-23] MEDS: ACETAMINOPHEN 325 MG TABLET (FP) PO PRN (16:42)
--- NOTE | 2016-08-23 17:54 | PN ---
Teaching Attending Note Name of Resident: Juan José Carbajal ATTENDING PHYSICIAN STATEMENT I saw and evaluated the patient. I reviewed the resident's note and discussed the case with the resident. I agree with the resident's findings and plan as documented. SUBJECTIVE: no fever or chills, has pain in L shoulder , and b/l knees josh left OBJECTIVE: NAD Cv : RRR Lungs :L CTAB ext : no edema in LE , or UE . limited range of motion in L shouldfer . no effusion in knees, no erythema or edema , or skin rash. nl range of motion of knees. TTP over medial aspect of knees ( medial lower epicondyle ) . A/P 61 y/o man with h/o ICM , CKD , S CHF , CABG, s/p cardiac arrest , R LE DVT , and DM who presented with SOB and not feeling well and was found to have sepsis 2/2 UTI and bacteremia 1- Sepsis 2/2 UTI and bacteremia : possible prostatitis , no growth in L shoulder fluid doing well cont IV abx x 11 more days then 3 weeks of amoxi f/u with ID 2- Poorly controlled DM , -at dc cont 70 units of long acting and SSI and po meds 3- Acute S CHF : euvolemic now - cont demadex at home dose . - cont coreg - Off ASA 4- h/o Afib : cont xarelto 5- CKD : base line Cr 1.7-2. monitor dc to rehab residident by mistake sent wrong dxc cinstructions ( 11 days of po abx , and to cont ASA ) . will call [facility] and correct mistake
--- NOTE | 2016-08-25 20:32 | DS ---
Physical Exam: Date of Admission:08/08/16 Date of Discharge: 08/25/16 This note was originally written on 08/25 but an edited copy was made today . The information below is from the discharge date: SUBJECTIVE: Patient seen and examined this AM. The patient had no complaints. No chest pain, no shortness of breath, no fever, no chills. Nurse states there were no acute events overnight. OBJECTIVE: Vital Signs Temperature 98.2 F 08/23/16 15:06 Pulse Rate 72 08/23/16 15:06 Respiratory Rate 16 08/23/16 15:06 Blood Pressure 110/78 08/23/16 15:06 O2 Sat by Pulse Oximetry (%) 98 08/22/16 22:00 PHYSICAL EXAM GENERAL: The patient is awake, alert, and fully oriented, in no acute distress. Patient is hard of hearing, wears hearing aids EYES: PERRL, extraocular movements intact . LUNGS: Breath sounds equal, clear to auscultation bilaterally, no wheezes, no crackles, no accessory muscle use. HEART: Regular rate and rhythm, S1, S2 without murmur, rub or gallop. 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 NEUROLOGICAL: AAOx3, no facial droop. Cranial nerves II through XII grossly intact. Sensation was equal and intact in face and body bilaterally. Muscle strength was 5+ in all extremities. FTN was intact. Normal speech, gait not observed. LABS CBC, BMP 08/23/16 06:30 08/23/16 06:30 Laboratory Last Values WBC 7.8 K/mm3 (4.0-10.0) 08/23/16 06:30 RBC 3.70 M/mm3 (4.00-5.60) L 08/23/16 06:30 Hgb 11.3 GM/dL (11.7-16.9) L 08/23/16 06:30 Hct 33.8 % (35.4-49) L 08/23/16 06:30 MCV 91.4 fl (80-96) 08/23/16 06:30 MCH 30.6 pg (25.7-33.7) 08/23/16 06:30 MCHC 33.5 g/dl (32.0-35.9) 08/23/16 06:30 RDW 17.6 % (11.9-15.9) H 08/23/16 06:30 Plt Count 179 K/MM3 (134-434) 08/23/16 06:30 MPV 8.9 fl (7.5-11.1) 08/23/16 06:30 Neutrophils % 69.0 % (42.8-82.8) 08/16/16 06:10 Lymphocytes % 19.0 % (8-40) D 08/16/16 06:10 Monocytes % 7.0 % (3.8-10.2) 08/16/16 06:10 Eosinophils % 3.0 % (0-4.5) D 08/16/16 06:10 Basophils % 0.1 % (0-2.0) 08/09/16 05:45 Band Neutrophils 1.0 % (0-10) 08/16/16 06:10 Myelocytes 1 % (0-2) 08/16/16 06:10 Differential Comment Manual diff done 08/16/16 06:10 Platelet Estimate Adequate (NORMAL) 08/16/16 06:10 ESR 105 mm/hr (0-20) H 08/15/16 06:10 Haptoglobin 172 mg/dL (34-200) 08/19/16 06:00 INR 1.62 (0.82-1.09) H 08/08/16 21:35 PTT (Actin FS) 27.6 SECONDS (26.9-34.4) 08/08/16 21:35 Puncture Site Right radial 08/08/16 19:05 ABG pH 7.45 (7.35-7.45) 08/08/16 19:05 ABG pCO2 at Pt Temp 38.9 mmHg (35-45) D 08/08/16 19:05 ABG pO2 at Pt Temp 61.7 mmHg (80-100) L D 08/08/16 19:05 ABG HCO3 26.7 meq/L (22-26) H 08/08/16 19:05 ABG O2 Sat (Measured) 92.1 % (90-98.9) 08/08/16 19:05 ABG O2 Content 13.1 % vol (15-22) L 08/08/16 19:05 ABG Base Excess 3.0 meq/l (-2-2) H 08/08/16 19:05 Henry Test Positive 08/08/16 19:05 VBG pH 7.39 (7.32-7.42) 08/08/16 16:28 POC VBG pCO2 45.3 mmHg (38-52) 08/08/16 16:28 POC VBG pO2 33.6 mmHg (28-48) 08/08/16 16:28 Mixed VBG HCO3 27.0 meq/L (19-25) H 08/08/16 16:28 O2 Delivery Device Nasal 08/08/16 19:05 Oxygen Flow Rate 4l 08/08/16 19:05 PEEP 0.0 cmH2O 08/08/16 19:05 Sodium 142 mmol/L (136-145) 08/23/16 06:30 Potassium 3.2 mmol/L (3.5-5.1) L 08/23/16 06:30 Chloride 101 mmol/L (98-107) 08/23/16 06:30 Carbon Dioxide 31 mmol/L (21-32) 08/23/16 06:30 Anion Gap 10 (8-16) 08/23/16 06:30 BUN 30 mg/dL (7-18) H 08/23/16 06:30 Creatinine 1.3 mg/dL (0.7-1.3) 08/23/16 06:30 Creat Clearance w eGFR 44.16 (>60) 08/22/16 06:00 Glucose 254 mg/dL (65-99) H 08/19/16 06:00 POC Glucometer 197 UNITS (()) 08/23/16 16:23 Random Glucose 91 mg/dL (74-106) D 08/23/16 06:30 Hemoglobin A1c % 10.5 % (4.8-6.0) H D 08/09/16 06:00 Lactic Acid 1.4 mmol/L (0.4-2.0) 08/09/16 02:30 Calcium 8.3 mg/dL (8.5-10.1) L 08/23/16 06:30 Phosphorus 2.9 mg/dL (2.5-4.9) 08/13/16 06:30 Magnesium 2.1 mg/dL (1.8-2.4) 08/23/16 06:30 Iron 60 ug/dL (38-169) 08/19/16 06:00 TIBC 228 ug/dL (250-450) L 08/19/16 06:00 Iron Saturation 26 % (15-55) 08/19/16 06:00 Ferritin 360.780 ng/ml (16.4-293.9) H 08/19/16 06:00 Total Bilirubin 0.7 mg/dL (0.2-1.0) 08/22/16 06:00 Direct Bilirubin 0.3 mg/dL (0.0-0.2) H 08/20/16 06:05 GGT 509 U/L (5-85) H 08/20/16 06:05 AST 34 U/L (15-37) D 08/22/16 06:00 ALT 19 U/L (12-78) D 08/22/16 06:00 Alkaline Phosphatase 688 U/L (45-117) H 08/22/16 06:00 Liver Fibrosis Score 0.73 (0.00-0.21) H 08/19/16 06:00 Liver Fibrosis Stage F3-f4 (.) 08/19/16 06:00 Creatine Kinase 124 IU/L (39-308) 08/08/16 21:35 Troponin I 0.05 ng/ml (0.00-0.05) 08/09/16 11:15 C-Reactive Protein 1.4 MG/DL (0.00-0.3) H D 08/20/16 06:05 B-Natriuretic Peptide 9748.17 pg/ml (5-125) H 08/08/16 17:51 Total Protein 6.9 g/dl (6.4-8.2) 08/22/16 06:00 Albumin 2.6 g/dl (3.4-5.0) L 08/22/16 06:00 Lcddd-4-Jnsazmclpzkes 236 mg/dL (110-276) 08/19/16 06:00 Triglycerides 158 mg/dL (0-149) H 08/19/16 06:00 Cholesterol 102 mg/dL (100-199) 08/19/16 06:00 Apolipoprotein A-1 81 mg/dL (101-178) L 08/19/16 06:00 Tumor Marker AFP 2.0 ng/ml (0.0-8.3) 08/19/16 06:00 Patient Height (cm) 69 Inches (.) 08/19/16 06:00 Patient Weight (kg) 251 LBS (.) 08/19/16 06:00 Urine Color Ltyellow 08/21/16 12:25 Urine Appearance Clear 08/21/16 12:25 Urine pH 6.0 (5.0-8.0) 08/21/16 12:25 Ur Specific [place] 1.010 (1.005-1.025) 08/21/16 12:25 Urine Protein Negative (NEGATIVE) 08/21/16 12:25 Urine Glucose (UA) Negative (NEGATIVE) 08/21/16 12:25 Urine Ketones Negative (NEGATIVE) 08/21/16 12:25 Urine Blood Negative (NEGATIVE) 08/21/16 12:25 Urine Nitrite Negative (NEGATIVE) 08/21/16 12:25 Urine Bilirubin Negative (NEGATIVE) 08/21/16 12:25 Urine Urobilinogen Negative E.U./dl (0.2-1.0) 08/21/16 12:25 Ur Leukocyte Esterase Negative (NEGATIVE) 08/21/16 12:25 Urine RBC 9 /hpf (0-3) 08/09/16 02:45 Urine WBC 1107 /hpf (3-5) 08/09/16 02:45 Urine Bacteria Few /hpf (NONE SEEN) 08/09/16 02:45 Ur Random Sodium 20 MMOL/L 08/09/16 02:45 Ur Random Potassium 23.2 MMOL/L 08/09/16 02:45 Ur Random Chloride 11 MMOL/L 08/09/16 02:45 Urine Creatinine 65.4 mg/dL (20-370) 08/09/16 02:45 CSF IgG Interpretation (.) 08/19/16 06:00 Synovial Source Synovial fluid 08/15/16 15:45 Synovial WBC 2150 /mm3 08/15/16 15:45 Synovial RBC 55925 /mm3 08/15/16 15:45 Synovial Neutrophils 75 % 08/15/16 15:45 Synovial Lymphocytes 5 % 08/15/16 15:45 Synovial Monocytes 16 % 08/15/16 15:45 Synovial Macrophages 4 % 08/15/16 15:45 Diphenhydramine 107 mcg/mL (30 - 50) H 08/18/16 06:40 Vancomycin Pre-Dose 2.555 ug/ml (5.0-10.0) L* 08/10/16 08:10 NUPUR Screen Negative (.) 08/19/16 06:00 Hepatitis A Ab Total Negative (Negative) 08/19/16 06:00 Hep Bs Antigen Negative (Negative) 08/19/16 06:00 Hep Bs Antibody Reactive (.) 08/19/16 06:00 Hep B Core Total Ab Positive (Negative) H 08/19/16 06:00 Hepatitis C Antibody 0.5 s/co ratio (0.0-0.9) 08/19/16 06:00 Blood Type A POSITIVE 08/08/16 17:10 Antibody Screen Negative 08/08/16 17:10 HOSPITAL COURSE: Date of Admission:08/08/16 Date of Discharge: 08/25/16 Mr Joon Holley is a 61 y/o male with history of systolic CHF, DM, Ischemic CM, Afib/DVT, CKD who presented with sepsis and SOB found to be septic 2/2 UTI # Sepsis with persistent bacteremia - resolved - Patient initially presented with fever, tachycardia, with dysuria, prompting US which was positive. Patient was started on empiric Zosyn 2.25mg Q8 IV (renal dosing) and Vancomycin 1250mg IV QD. Urine cx and Blood cx both grew E.coli, antibiotics de-escalated to Cefazolin, treated for 4 days, f/u blood cx was negative. On 08/12 night patient spiked fever (Tmax 102.8) with tachycardia (HR 99) and WBC trending up (8.0 --> 10.4) prompting new Blood cultures to be drawn and antibiotic escalation to Meropenem 1g Q8 IV --> new blood cx grew E.Coli. Patient was scanned for any possible source of acute infection with CTs, U/S, and HIDA. Sources to consider now are static urine building up bacteria (post- void bladder scan was 124ml) --> bacteremia OR prostatitis (CT shows mild/mod enlargement and patient has chronic urgency and frequency). The patient was followed by Infectious Disease doctors closely throughout the hospitalization, and they recommend that the patient be discharged with a PICC line for 3 weeks w / IV cefazolin + PO levoquin 250mg QD for another 3 weeks (total 6 weeks for prostatitis) # Cirrhotic Liver on U/S - The patient had RUQ ultrasound which showed liber cirrhosis. This could be due to Hep B chronic vs cardiac cirrhosis (congestive hepatopathy), or Hughes. This needs to be worked up outpatient # Poorly controlled Diabetes Mellitus - The patient's Hgb A1c is 10.5 this admission. With levemir 70QD and a sliding scale insulin, the patient's sugars started improving to the 100s. The patient also developed neuropathic pain during hospitalization, we started Gabapentin 100mg QD as DM is poorly controlled. #L 3rd Toe Nail Bed Ulcer - During this hospitalization, Podiatry was consulted for an excisional debridement of the patient's left third toe. It was done at bedside with scissors, no deep pus or ulcer noted. We gave the patient a prescription for bactroban and DSD daily to toe. Of note, an X-Ray of the Left foot showed no signs of osteomyelitis # Others - Acute Systolic CHF: We continued the patient's home torsamide 200mg PO QD and carvedilol 6.25 mg PO BID - Atrial Fibrillation: We continued the patient's home Xarelto 20mg PO QD - COPD on home oxygen: We continued the patient's PRN duonebs, and put the patient on 2L NC OTC. - Gout: We continued allopurinol 100mg PO - Depression: We continued the patient's fluoxetine 40mg PO QD #L Shoulder RTC Tear - Chronic - During this hospitalization, the patient had left shoulder pain. Images were done which showed a fluid collection in the left shoulder. The shoulder was tapped and the fluid collection showed no infection, but the surgeon noted findings consistent with a rotator cuff tear. The patient will F/u with Ortho Dr. Cisneros as outpatient #Pulmonary Nodules - During this hospitaliztion, the patient had imaging done on his chest which showed incidental pulmonary nodules. The patient will need to followup with his PCP for monitoring The patient verbalized understanding of the hospital course and the plan. Please note in the discharge medications below that Aspirin 81mg PO was sent to the [facility] in error, but a call was placed on 08/25 to the nursing staff there to discontinue the home Aspirin. * Minutes to complete discharge: 45 Discharge Summary Reason For Visit: SEPSIS; COPD; CHF; ELEVATED TROPONIN; CELLULITIS Condition: Improved - Instructions Diet, Activity, Other Instructions: You came into the hospital because you had a urinary tract infection that eventually caused bacteria to go into your blood. We treated the infection, and you continued to have bacteria in your blood. Scans were performed and we believe that you have an infection of your prostate. WE are treating that with antibiotics. You must continue your antibiotics for 10 more days using a PICC line, then oral amoxicillin . You will be going to a subacute rehabilitation facility. Please take insulin sliding scale (newly added)- First check the blood sugar and according to your blood sugar 101-150- 0 unit of Insulin 151-200- 2 Units of Insulin; 201-250 4 Units of Insulin; 251-300 6 Units of insulin; 301-350 8units of Insulin; 351-400 10 Units of Insulin ; > 400 blood sugar 10 units of Insulin and call the Doctor. PLEASE PAY ATTENTION TO ANTIBIOTIC DOSAGE 1. Please continue PICC line for 10 more days of Cefazolin 2gm IV Q8h 2. AFTER the 10 days, please take Amoxicillin 500mg TID for 21 more days after that Please followup with your Primary Care Doctor and Urology and Infectious Disease doctor (Dr. Hernandez) PLease followup with Dr. Cisneros from Orthopedics for your R rotator cuff tear Please return to the ER if you have any serious symptoms Referrals: Raymond Hernandez MD [Staff Physician] - 2 Weeks Pb Cisneros MD [Staff Physician] - 2 Weeks James Britton MD [Staff Physician] - 2 Weeks Disposition: [facility] - Home Medications Comprehensive Discharge Medication List: Ambulatory Orders Acetaminophen with Codeine [Acetaminophen-Cod #3 Tablet] 1 each PO Q4HWA PRN Allopurinol [Zyloprim -] 100 mg PO BID 06/24/16 Aspirin [ASA -] 81 mg PO AM 06/24/16 Atorvastatin Calcium 40 mg PO HS 06/24/16 Carvedilol [Coreg -] 6.25 mg PO BID 06/24/16 Cholecalciferol (Vitamin D3) [Vitamin D -] 1,000 mg PO DAILY 06/24/16 Colchicine 0.6 mg PO DAILY 06/24/16 Famotidine/Ca Carb/Mag Hydrox [Pepcid Complete Tablet Chew] 1 each PO AM Fluoxetine HCl [Prozac] 40 mg PO HS 06/24/16 Lorazepam 0.5 mg PO HS 06/24/16 Oxycodone HCl/Acetaminophen [Oxycodone-Acetaminophen 5-325] 1 each PO Q6H PRN Rivaroxaban [Xarelto -] 15 mg PO DAILY 06/24/16 Sennosides/Docusate Sodium [Senna Laxative Tablet] 8.6 mg PO HS 06/24/16 Tamsulosin HCl [Flomax -] 0.4 mg PO DAILY 06/24/16 Torsemide 100 mg PO BID 06/24/16 Trazodone HCl 100 mg PO HS 06/24/16 Cefazolin Sodium in 0.9 % NaCl [Cefazolin-0.9% NaCl 2 G/50 ml] 2 gm IV Q8H #11 piggyback 08/22/16 Gabapentin 100 mg PO BID #15 capsule 08/22/16 Mupirocin Ointment [Bactroban] 1 applic TP TID #1 tube 08/22/16 Amoxicillin - [Amoxicillin 500mg Capsule -] 500 mg PO TID #21 capsule 08/23/16 Insulin Degludec [Tresiba Flextouch U-100] 70 unit SQ DAILY #1 insuln.pen Insulin Sliding Scale [Novolog Vial Sliding Scale -] See Protocol SQ ACHS #2 pen 08/23/16 This patient is new to me today: No Emergency Visit: No Critical Care patient: No - Discharge Referral [facility]erred to [facility] No
== END 2016-08-23 17:45 | DRG 720 ==
LOC: JER 15:52 → JERBED 18:27 → JICU 21:25 → J8W 08-11 15:01
PROVIDERS: ADMIT Internal Medicine; ATTEND Internal Medicine
PROC: 3E0F7GC Introduction of Other Therapeutic Substance into Respiratory Tract, Via Natural or Artificial Opening (ICD-10-PCS; 2016-08-08)
PROC: 0R9K3ZZ Drainage of Left Shoulder Joint, Percutaneous Approach (ICD-10-PCS; 2016-08-15)
PROC: 0HBNXZZ Excision of Left Foot Skin, External Approach (ICD-10-PCS; principal; 2016-08-16)
PROC: 05HM33Z Insertion of Infusion Device into Right Internal Jugular Vein, Percutaneous Approach (ICD-10-PCS; 2016-08-23)
PROC: B513YZA Fluoroscopy of Right Jugular Veins using Other Contrast, Guidance (ICD-10-PCS; 2016-08-23)
DX: A41.9 Sepsis, unspecified organism (principal); R65.21 Severe sepsis with septic shock; F32.9 Major depressive disorder, single episode, unspecified; N39.0 Urinary tract infection, site not specified; I13.0 Hypertensive heart and chronic kidney disease with heart failure and stage 1 through stage 4 chronic kidney disease, or unspecified chronic kidney disease; E11.22 Type 2 diabetes mellitus with diabetic chronic kidney disease; E11.65 Type 2 diabetes mellitus with hyperglycemia; N18.3 Chronic kidney disease, stage 3 (moderate); I50.23 Acute on chronic systolic (congestive) heart failure; N17.9 Acute kidney failure, unspecified; R91.1 Solitary pulmonary nodule; Z79.4 Long term (current) use of insulin; Z95.1 Presence of aortocoronary bypass graft; G47.33 Obstructive sleep apnea (adult) (pediatric); I25.5 Ischemic cardiomyopathy; I27.2 Other secondary pulmonary hypertension; I25.119 Atherosclerotic heart disease of native coronary artery with unspecified angina pectoris; J96.21 Acute and chronic respiratory failure with hypoxia; I48.1 Persistent atrial fibrillation; K83.1 Obstruction of bile duct; J18.9 Pneumonia, unspecified organism; E66.01 Morbid (severe) obesity due to excess calories; Z68.36 Body mass index [BMI] 36.0-36.9, adult; Z99.81 Dependence on supplemental oxygen; M10.9 Gout, unspecified; K74.60 Unspecified cirrhosis of liver; K80.20 Calculus of gallbladder without cholecystitis without obstruction; Z72.0 Tobacco use; J44.1 Chronic obstructive pulmonary disease with (acute) exacerbation; L97.529 Non-pressure chronic ulcer of other part of left foot with unspecified severity; M75.100 Unspecified rotator cuff tear or rupture of unspecified shoulder, not specified as traumatic; I82.401 Acute embolism and thrombosis of unspecified deep veins of right lower extremity
CPT/HCPCS: 36415; 36558; 36600; 71010-TC; 71250-TC; 72131-TC; 73200-TC-RT; 73630-TC-LT; 74176-TC; 76700-TC; 76775-TC; 77001-TC; 78226-TC; 80048; 80053; 80076; 81003; 81015; 82105; 82172; 82247; 82436; 82465; 82550; 82570; 82728; 82803; 82947; 82977; 83010; 83036; 83540; 83550; 83605; 83735; 83880; 83883; 84100; 84133; 84300; 84450; 84460; 84478; 84484; 85025; 85027; 85610; 85651; 85730; 86038; 86140; 86704; 86706; 86708; 86803; 86850; 86900; 86901; 87040; 87070; 87075; 87086; 87186; 87205; 87340; 89051; 89060; 93005; 93010; 93306-TC; 93970-TC; 94761; 97116-GP; 97162-GP; 99285-25; A9537; C1751; G0480; J1644

== ENCOUNTER → 2016-09-04 | Emergency (ER) | payer OTHER ==
[~2016-09-04] MED LIST: OXYCODONE/APAP 5/325MG COMBO TABLET ONE; OXYCODONE/APAP 5/325MG COMBO TABLET PO ONE
[2016-09-04 16:52] VITALS: BP 119/72; PULSE 71; TEMP 97.8; BMI 36.9
--- NOTE | 2016-09-04 17:07 | PDOC ---
History of Present Illness <Guy Tovar - Last Filed: 09/04/16 16:56> <Leigha Ramirez - Last Filed: 09/04/16 20:01> - General Chief Complaint: Pain Stated Complaint: ABD PAIN Time Seen by Provider: 09/04/16 16:35 Past History - Past Medical History Anemia: Yes Asthma: Yes Cancer: Yes (Left upper lung, stage 1) Cardiac Disorders: Yes (CAD,[place],CARDIOMYOPATHY,CARDIAC ARREST POST ICD) CVA: Yes COPD: Yes CHF: Yes Diabetes: Yes GI Disorders: Yes (GERD) Disorders: Yes (STONES) HTN: Yes Hypercholesterolemia: Yes Liver Disease: Yes (Fatty Liver) Psychiatric Problems: Yes (anxiety/depression) - Surgical History Cardiac Surgery: Yes (quad bypass, ppm/defib) Orthopedic Surgery: Yes - Psycho/Social/Smoking Cessation Hx Anxiety: No Suicidal Ideation: No Smoking History: Current some day smoker Have you smoked in the past 12 months: Yes Number of Cigarettes Smoked Daily: 3 If you are a former smoker, when did you quit?: 2008 Information on smoking cessation initiated: No 'Breaking Loose' booklet given: 08/08/16 Hx Alcohol Use: No Drug/Substance Use Hx: No Substance Use Type: None Hx Substance Use Treatment: No <Guy Tovar - Last Filed: 09/04/16 16:56> <Leigha Ramirez - Last Filed: 09/04/16 20:01> - Past Medical History Allergies/Adverse Reactions: Allergies Allergy/AdvReac Type Severity Reaction Status Date / Time Iodinated Contrast Media - Allergy Verified 09/04/16 18:22 Oral and [Iodinated Contrast Media - IV Dye] raw fruits/vegetables Allergy Intermediate Rash Uncoded 09/04/16 18:22 iv contrast dye Allergy Uncoded 09/04/16 18:22 Home Medications: Ambulatory Orders Acetaminophen with Codeine [Acetaminophen-Cod #3 Tablet] 1 each PO Q4HWA PRN Allopurinol [Zyloprim -] 100 mg PO BID 06/24/16 Aspirin [ASA -] 81 mg PO AM 06/24/16 Atorvastatin Calcium 40 mg PO HS 06/24/16 Carvedilol [Coreg -] 6.25 mg PO BID 06/24/16 Cholecalciferol (Vitamin D3) [Vitamin D -] 1,000 mg PO DAILY 06/24/16 Colchicine 0.6 mg PO DAILY 06/24/16 Famotidine/Ca Carb/Mag Hydrox [Pepcid Complete Tablet Chew] 1 each PO AM Fluoxetine HCl [Prozac] 40 mg PO HS 06/24/16 Lorazepam 0.5 mg PO HS 06/24/16 Oxycodone HCl/Acetaminophen [Oxycodone-Acetaminophen 5-325] 1 each PO Q6H PRN Rivaroxaban [Xarelto -] 20 mg PO DAILY 06/24/16 Torsemide 200 mg PO BID 06/24/16 Trazodone HCl 50 mg PO HS 06/24/16 Insulin Degludec [Tresiba Flextouch U-100] 70 unit SQ DAILY #1 insuln.pen Insulin Sliding Scale [Novolog Vial Sliding Scale -] See Protocol SQ ACHS #2 pen 08/23/16 Bidil Tablet 20 - 37 mg PO DAILY 09/04/16 Clotrimazole 1 applic TP DAILY 09/04/16 Ipratropium/Albuterol Sulfate 0.5 - 2.5 mg IH PRN 09/04/16 Lisinopril 5 mg PO DAILY 09/04/16 Senna 8.6 mg PO HS 09/04/16 Victoza - 1.8 mg PO DAILY 09/04/16 *Physical Exam - Vital Signs Last Vital Signs Temp Pulse Resp BP Pulse Ox 97.8 F 71 18 119/72 100 09/04/16 16:47 09/04/16 16:47 09/04/16 16:47 09/04/16 16:47 09/04/16 16:47 <Guy Tovar - Last Filed: 09/04/16 16:56> - Vital Signs Last Vital Signs Temp Pulse Resp BP Pulse Ox 97.8 F 71 18 119/72 100 09/04/16 16:47 09/04/16 16:47 09/04/16 16:47 09/04/16 16:47 09/04/16 16:47 <Leigha Ramirez - Last Filed: 09/04/16 20:01> ED Treatment Course - LABORATORY CBC & Chemistry Diagram: 09/04/16 17:29 09/04/16 17:29 - ADDITIONAL ORDERS Additional order review: Laboratory Results 09/04/16 09/04/16 09/04/16 17:30 17:30 17:29 INR 1.43 H Sodium Potassium Chloride Carbon Dioxide Anion Gap BUN Creatinine Creat Clearance w eGFR Random Glucose Lactic Acid 1.4 Calcium Total Bilirubin AST ALT Alkaline Phosphatase Total Protein Albumin Lipase Urine Color Urine Appearance Urine pH Urine Protein Urine Glucose (UA) Urine Ketones Urine Blood Urine Nitrite Urine Bilirubin Urine Urobilinogen Ur Leukocyte Esterase Acetone, Qual Blood Type A POSITIVE Antibody Screen Negative 09/04/16 09/04/16 09/04/16 17:29 17:29 17:28 INR Sodium 142 Potassium 3.5 Chloride 101 Carbon Dioxide 33 H Anion Gap 8 BUN 25 H Creatinine 1.6 H D Creat Clearance w eGFR 44.16 Random Glucose 58 L D Lactic Acid Calcium 9.4 Total Bilirubin 0.7 AST 33 ALT 13 D Alkaline Phosphatase 384 H D Total Protein 7.2 Albumin 3.0 L Lipase 142 Urine Color Straw Urine Appearance Clear Urine pH 6.0 Urine Protein Negative Urine Glucose (UA) Negative Urine Ketones Negative Urine Blood Negative Urine Nitrite Negative Urine Bilirubin Negative Urine Urobilinogen Negative Ur Leukocyte Esterase Negative Acetone, Qual Negative Blood Type Antibody Screen 09/04/16 17:29 RBC 4.23 MCV 92.0 MCHC 33.1 RDW 16.8 H MPV 9.1 Neutrophils % 45.8 D Lymphocytes % 26.0 D Monocytes % 12.0 H Eosinophils % 15.2 H D Basophils % 1.0 D - RADIOLOGY Radiology Studies Ordered: Category Date Time Status CHEST X-RAY PORTABLE* [RAD] Stat Radiology 09/04/16 17:30 Completed ABDOMEN US -LIMITED [US] Stat Ultrasound 09/04/16 17:28 Completed <Leigha Ramirez - Last Filed: 09/04/16 20:01>
[2016-09-04 18:02] LABS: EOSINOPHIL 15.2 % (0-4.5); MCH 30.5 pg (25.7-33.7); MCHC 33.1 g/dl (32.0-35.9); MEAN PLT VOLUME 9.1 fl (7.5-11.1); NEUTROPHILS 45.8 % (42.8-82.8); PLATELET COUNT 128 K/MM3 (134-434); RDW 16.8 % (11.9-15.9); WHITE BLOOD COUNT 5.7 K/mm3 (4.0-10.0)
[2016-09-04 18:25] LABS: INR 1.43 (0.82-1.09); PROTHROMBIN TIME (PATIENT) 15.9 SEC (9.98-11.88)
[2016-09-04 18:28] LABS: ANION GAP 8 (8-16); CALCIUM 9.4 mg/dL (8.5-10.1); CO2 33 mmol/L (21-32); CREATININE 1.6 mg/dL (0.7-1.3); GLUCOSE,RANDOM 58 mg/dL (74-106); SGOT/AST 33 U/L (15-37); SGPT/ALT 13 U/L (12-78)
[2016-09-04 18:29] LABS: ALK PHOS 384 U/L (45-117); BILIRUBIN,TOTAL 0.7 mg/dL (0.2-1.0); TOT PROT 7.2 g/dl (6.4-8.2)
[2016-09-04 19:00] LABS: URINE APPEARANCE CLEAR; URINE BILIRUBIN NEGATIVE (NEGATIVE); URINE BLOOD NEGATIVE (NEGATIVE); URINE COLOR STRAW; URINE GLUCOSE (UA) NEGATIVE (NEGATIVE); URINE KETONE NEGATIVE (NEGATIVE); URINE LEUK ESTERASE NEGATIVE (NEGATIVE); URINE NITRITE NEGATIVE (NEGATIVE); URINE PROTEIN NEGATIVE (NEGATIVE); URINE UROBILINOGEN NEGATIVE mg/dL (0.2-1.0)
--- NOTE | 2016-09-04 20:17 | PDOC ---
History of Present Illness - General History Source: Patient Exam Limitations: No Limitations - History of Present Illness Initial Comments: The patient is a 61 yo M with a Pmhx of IDDM, arthernosclerotic heart surgery, CHF, cellulitis of left forearm with I&D on July 07, COPD (on 3 L at home), Hep B, CKD, gout, and chronic venous stasis who sent for RUQ pain and US abnormality that was concern for gangrenous gallbladder. The patient states he had a sonogram this morning that found an abnormality with his gallbladder. Patient denies nausea, vomiting, diarrhea. The patient denies chest pain, palpitations and lightheadedness. <Mae Tenorio - Last Filed: 09/04/16 20:48> <Leigha Ramirez - Last Filed: 09/05/16 00:05> - General Chief Complaint: Pain Stated Complaint: ABD PAIN Time Seen by Provider: 09/04/16 16:35 Past History <Mae Tenorio - Last Filed: 09/04/16 20:48> - Past Medical History Anemia: Yes Asthma: Yes Cancer: Yes (Left upper lung, stage 1) Cardiac Disorders: Yes (CAD,[place],CARDIOMYOPATHY,CARDIAC ARREST POST ICD) CVA: Yes COPD: Yes CHF: Yes Diabetes: Yes GI Disorders: Yes (GERD) Disorders: Yes (STONES) HTN: Yes Hypercholesterolemia: Yes Liver Disease: Yes (Fatty Liver) Psychiatric Problems: Yes (anxiety/depression) - Surgical History Cardiac Surgery: Yes (quad bypass, ppm/defib) Orthopedic Surgery: Yes - Psycho/Social/Smoking Cessation Hx Anxiety: No Suicidal Ideation: No Smoking History: Current some day smoker Have you smoked in the past 12 months: Yes Number of Cigarettes Smoked Daily: 3 If you are a former smoker, when did you quit?: 2008 Information on smoking cessation initiated: No 'Breaking Loose' booklet given: 08/08/16 Hx Alcohol Use: No Drug/Substance Use Hx: No Substance Use Type: None Hx Substance Use Treatment: No <Leigha Ramirez - Last Filed: 09/05/16 00:05> - Past Medical History Allergies/Adverse Reactions: Allergies Allergy/AdvReac Type Severity Reaction Status Date / Time Iodinated Contrast Media - Allergy Verified 09/04/16 18:22 Oral and [Iodinated Contrast Media - IV Dye] raw fruits/vegetables Allergy Intermediate Rash Uncoded 09/04/16 18:22 iv contrast dye Allergy Uncoded 09/04/16 18:22 Home Medications: Ambulatory Orders Acetaminophen with Codeine [Acetaminophen-Cod #3 Tablet] 1 each PO Q4HWA PRN Allopurinol [Zyloprim -] 100 mg PO BID 06/24/16 Aspirin [ASA -] 81 mg PO AM 06/24/16 Atorvastatin Calcium 40 mg PO HS 06/24/16 Carvedilol [Coreg -] 6.25 mg PO BID 06/24/16 Cholecalciferol (Vitamin D3) [Vitamin D -] 1,000 mg PO DAILY 06/24/16 Colchicine 0.6 mg PO DAILY 06/24/16 Famotidine/Ca Carb/Mag Hydrox [Pepcid Complete Tablet Chew] 1 each PO AM Fluoxetine HCl [Prozac] 40 mg PO HS 06/24/16 Lorazepam 0.5 mg PO HS 06/24/16 Oxycodone HCl/Acetaminophen [Oxycodone-Acetaminophen 5-325] 1 each PO Q6H PRN Rivaroxaban [Xarelto -] 20 mg PO DAILY 06/24/16 Torsemide 200 mg PO BID 06/24/16 Trazodone HCl 50 mg PO HS 06/24/16 Insulin Degludec [Tresiba Flextouch U-100] 70 unit SQ DAILY #1 insuln.pen Insulin Sliding Scale [Novolog Vial Sliding Scale -] See Protocol SQ ACHS #2 pen 08/23/16 Bidil Tablet 20 - 37 mg PO DAILY 09/04/16 Clotrimazole 1 applic TP DAILY 09/04/16 Ipratropium/Albuterol Sulfate 0.5 - 2.5 mg IH PRN 09/04/16 Lisinopril 5 mg PO DAILY 09/04/16 Senna 8.6 mg PO HS 09/04/16 Victoza - 1.8 mg PO DAILY 09/04/16 Review of Systems - Review of Systems Able to Perform ROS?: Yes Comments:: CONSTITUTIONAL: Absent: fever, chills, diaphoresis, generalized weakness, malaise, loss of appetite HEENT: Absent: rhinorrhea, nasal congestion, throat pain, throat swelling, difficulty swallowing, mouth swelling, ear pain, eye pain, visual Changes CARDIOVASCULAR: Absent: chest pain, syncope, palpitations, irregular heart rate, lightheadedness , peripheral edema RESPIRATORY: Absent: cough, shortness of breath, dyspnea with exertion, orthopnea, wheezing, stridor, hemoptysis GASTROINTESTINAL: +RUQ pain Absent: abdominal distension, nausea, vomiting, diarrhea, constipation, melena, hematochezia GENITOURINARY: Absent: dysuria, frequency, urgency, hesitancy, hematuria, flank pain, genital pain MUSCULOSKELETAL: Absent: myalgia, arthralgia, joint swelling SKIN: Absent: rash, itching, pallor HEMATOLOGIC/IMMUNOLOGIC: Absent: easy bleeding, easy bruising, lymphadenopathy, frequent infections ENDOCRINE: Absent: unexplained weight gain, unexplained weight loss, heat intolerance, cold intolerance NEUROLOGIC: Absent: headache, focal weakness or paresthesias, dizziness, unsteady gait, seizure, mental status changes, bladder or bowel incontinence PSYCHIATRIC: Absent: anxiety, depression, suicidal or homicidal ideation, hallucinations. <Mae Tenorio - Last Filed: 09/04/16 20:48> *Physical Exam - Vital Signs Last Vital Signs Temp Pulse Resp BP Pulse Ox 97.8 F 71 18 119/72 100 09/04/16 16:47 09/04/16 16:47 09/04/16 16:47 09/04/16 16:47 09/04/16 16:47 - Physical Exam Comments: GENERAL: Well developed, well nourished. Awake and alert. No acute distress. Conversing. HEENT: Normocephalic, atraumatic. PERRLA, EOMI. No conjunctival pallor. Sclera are non- icteric. Moist mucous membranes. Oropharynx is clear. Hard of hearing. NECK: Supple. Full ROM. No JVD. Carotid pulses 2+ and symmetric, without bruits. No thyromegaly. No lymphadenopathy. CARDIOVASCULAR: Regular rate and rhythm. No murmurs, rubs, or gallops. Distal pulses are 2+ and symmetric. PULMONARY: No evidence of respiratory distress. Few scattered rhonchi. ABDOMINAL: Soft. Tenderness to upper r quadrant. Non-distended. No rebound or guarding. No organomegaly. Normoactive bowel sounds. MUSCULOSKELETAL Normal range of motion at all joints. No bony deformities or tenderness. No CVA tenderness. EXTREMITIES: No cyanosis. No clubbing. +1 pitting edema. Venous Stasis chronic. No calf tenderness. SKIN: Warm and dry. Normal capillary refill. No rashes. No jaundice. NEUROLOGICAL: No gross focal neurological deficits. PSYCHIATRIC: Cooperative. Good eye contact. Appropriate mood and affect. <Mae Tenorio - Last Filed: 09/04/16 20:48> - Vital Signs Last Vital Signs Temp Pulse Resp BP Pulse Ox 97.8 F 71 18 119/72 100 09/04/16 16:47 09/04/16 16:47 09/04/16 16:47 09/04/16 16:47 09/04/16 16:47 <JamesLenardramon Yeh - Last Filed: 09/05/16 00:05> ED Treatment Course - LABORATORY CBC & Chemistry Diagram: 09/04/16 17:29 09/04/16 17:29 - ADDITIONAL ORDERS Additional order review: Laboratory Results 09/04/16 09/04/16 09/04/16 17:30 17:30 17:29 INR 1.43 H Sodium Potassium Chloride Carbon Dioxide Anion Gap BUN Creatinine Creat Clearance w eGFR Random Glucose Lactic Acid 1.4 Calcium Total Bilirubin AST ALT Alkaline Phosphatase Total Protein Albumin Lipase Urine Color Urine Appearance Urine pH Urine Protein Urine Glucose (UA) Urine Ketones Urine Blood Urine Nitrite Urine Bilirubin Urine Urobilinogen Ur Leukocyte Esterase Acetone, Qual Blood Type A POSITIVE Antibody Screen Negative 09/04/16 09/04/16 09/04/16 17:29 17:29 17:28 INR Sodium 142 Potassium 3.5 Chloride 101 Carbon Dioxide 33 H Anion Gap 8 BUN 25 H Creatinine 1.6 H D Creat Clearance w eGFR 44.16 Random Glucose 58 L D Lactic Acid Calcium 9.4 Total Bilirubin 0.7 AST 33 ALT 13 D Alkaline Phosphatase 384 H D Total Protein 7.2 Albumin 3.0 L Lipase 142 Urine Color Straw Urine Appearance Clear Urine pH 6.0 Urine Protein Negative Urine Glucose (UA) Negative Urine Ketones Negative Urine Blood Negative Urine Nitrite Negative Urine Bilirubin Negative Urine Urobilinogen Negative Ur Leukocyte Esterase Negative Acetone, Qual Negative Blood Type Antibody Screen 09/04/16 17:29 RBC 4.23 MCV 92.0 MCHC 33.1 RDW 16.8 H MPV 9.1 Neutrophils % 45.8 D Lymphocytes % 26.0 D Monocytes % 12.0 H Eosinophils % 15.2 H D Basophils % 1.0 D - RADIOLOGY Radiograph Interpretation: IMPRESSION: 1. Limited study with suspected contracted gallbladder with cholelithiasis. 2. Hepatomegaly with heterogeneous liver suggesting hepatocellular disease. Clinical correlation and follow-up recommended. Please see above discussion. <Mae Tenorio - Last Filed: 09/04/16 20:48> - LABORATORY CBC & Chemistry Diagram: 09/04/16 17:29 09/04/16 17:29 - ADDITIONAL ORDERS Additional order review: Laboratory Results 09/04/16 09/04/16 09/04/16 17:30 17:30 17:29 INR 1.43 H Sodium Potassium Chloride Carbon Dioxide Anion Gap BUN Creatinine Creat Clearance w eGFR Random Glucose Lactic Acid 1.4 Calcium Total Bilirubin AST ALT Alkaline Phosphatase Total Protein Albumin Lipase Urine Color Urine Appearance Urine pH Urine Protein Urine Glucose (UA) Urine Ketones Urine Blood Urine Nitrite Urine Bilirubin Urine Urobilinogen Ur Leukocyte Esterase Acetone, Qual Blood Type A POSITIVE Antibody Screen Negative 09/04/16 09/04/16 09/04/16 17:29 17:29 17:28 INR Sodium 142 Potassium 3.5 Chloride 101 Carbon Dioxide 33 H Anion Gap 8 BUN 25 H Creatinine 1.6 H D Creat Clearance w eGFR 44.16 Random Glucose 58 L D Lactic Acid Calcium 9.4 Total Bilirubin 0.7 AST 33 ALT 13 D Alkaline Phosphatase 384 H D Total Protein 7.2 Albumin 3.0 L Lipase 142 Urine Color Straw Urine Appearance Clear Urine pH 6.0 Urine Protein Negative Urine Glucose (UA) Negative Urine Ketones Negative Urine Blood Negative Urine Nitrite Negative Urine Bilirubin Negative Urine Urobilinogen Negative Ur Leukocyte Esterase Negative Acetone, Qual Negative Blood Type Antibody Screen 09/04/16 17:29 RBC 4.23 MCV 92.0 MCHC 33.1 RDW 16.8 H MPV 9.1 Neutrophils % 45.8 D Lymphocytes % 26.0 D Monocytes % 12.0 H Eosinophils % 15.2 H D Basophils % 1.0 D - RADIOLOGY Radiology Studies Ordered: Category Date Time Status CHEST X-RAY PORTABLE* [RAD] Stat Radiology 09/04/16 17:30 Completed ABDOMEN US -LIMITED [US] Stat Ultrasound 09/04/16 17:28 Completed <Leigha Ramirez - Last Filed: 09/05/16 00:05> Medical Decision Making - Medical Decision Making Paged Dr. Sisi Huntley @ 20:48. Awaiting call back. <Mae Tenorio - Last Filed: 09/04/16 20:48> - Medical Decision Making 09/04/16 22:51 CAT scan the abdomen and pelvis impression cholelithiasis and findings consistent with cirrhosis. No evidence of acute pathology or significant change since 08/14/2016. There was no contrast since the patient is allergic to contrast Again, I was noticing gallstones and milk of calcium bile within the gallbladder There is no evidence of intra-or extrahepatic biliary duct dilatation Also reidentified is a lobulated liver consistent with a history of cirrhosis. No intrahepatic masses identified Spleen is enlarged Evaluation of the pelvis demonstrates a somewhat thickened and mildly distended urinary bladder Prostate gland is enlarged No evidence of bony abnormality Case had been discussed previously with Dr. Sisi Huntley. The patient was sent here because of an ultrasound finding that was concerning for gangrenous gallbladder. The patient does not have any fever or chills, no nausea or vomiting, CBC is within normal limits. Rest of his labs with the exception of his creatinine unremarkable His liver function tests are within normal limits -ct scan abd pelvis was NEGATIVE for any acute pathology 09/05/16 00:02 <Leigha Ramirez - Last Filed: 09/05/16 00:05> *DC/Admit/Observation/Transfer - Attestations Scribe Attestion: Documentation prepared by Mae Tenorio, acting as medical records secretary for Leigha Ramirez MD/DO. <Mae Tenorio - Last Filed: 09/04/16 20:48> <Leigha Ramirez - Last Filed: 09/05/16 00:05> Diagnosis at time of Disposition: Morbid obesity Gallstone Qualifiers: Cholecystitis presence: without cholecystitis Biliary obstruction: without biliary obstruction Qualified Code(s): K80.20 - Calculus of gallbladder without cholecystitis without obstruction Cirrhosis of liver Qualifiers: Hepatic cirrhosis type: other cirrhosis Qualified Code(s): K74.69 - Other cirrhosis of liver Diabetes mellitus Qualifiers: Diabetes mellitus type: type 1 Diabetes mellitus complication status: with hyperglycemia Qualified Code(s): E10.65 - Type 1 diabetes mellitus with hyperglycemia - Discharge Dispostion Disposition: HOME Condition at time of disposition: Stable - Referrals Referrals: Sisi Huntley MD [Primary Care Provider] - - Patient Instructions Printed Discharge Instructions: DI for Gallstones Additional Instructions: this patient had labs reviewed. All his liver function test were within normal limits ultrasound and CT SCAN of ABD.PELVIS did not show any evidence of gangrenous gallbladder
--- NOTE | 2016-09-05 20:42 | EKG ---
Test Reason : Blood Pressure : / mmHG Vent. Rate : 079 BPM Atrial Rate : 078 BPM P-R Int : 186 ms QRS Dur : 130 ms QT Int : 470 ms P-R-T Axes : 038 100 090 degrees QTc Int : 538 ms SINUS RHYTHM WITH FIRST DEGREE BLOCK. CLBBB FREQUENT SINGLE VPBS PROLONGATION OF QTC WHEN COMPARED WITH ECG OF 08-AUG-2016 16:12, CANNOT BE COMPARED DUE TO SIGNIFCANT ARTIFACTS ON ECG OF JUL 2016 REPEAT EKG IF CLINICALLY INDICATED Confirmed by BLAINE COLEMAN MD ([id number]) on 09/05/2016 8:41:57 PM Referred By: Confirmed By:BLAINE COLEMAN MD
== END | disposition home or self-care (01) ==
LOC: JER 16:32
DX: K80.20 Calculus of gallbladder without cholecystitis without obstruction (principal); K74.69 Other cirrhosis of liver; E66.01 Morbid (severe) obesity due to excess calories; Z68.36 Body mass index [BMI] 36.0-36.9, adult; I25.2 Old myocardial infarction; I13.0 Hypertensive heart and chronic kidney disease with heart failure and stage 1 through stage 4 chronic kidney disease, or unspecified chronic kidney disease; N18.9 Chronic kidney disease, unspecified; I50.9 Heart failure, unspecified; J44.9 Chronic obstructive pulmonary disease, unspecified; Z99.81 Dependence on supplemental oxygen; F41.8 Other specified anxiety disorders; B19.10 Unspecified viral hepatitis B without hepatic coma; Z86.74 Personal history of sudden cardiac arrest; Z85.118 Personal history of other malignant neoplasm of bronchus and lung
CPT/HCPCS: 36415; 71010-TC; 74176-TC; 76705-TC; 80053; 81003; 82009; 83605; 83690; 85025; 85610; 86850; 86900; 86901; 93005; 93010; 99283-25

== ENCOUNTER 2016-09-05 14:16 | Inpatient (IN) | payer OTHER ==
[2016-09-05 14:31] VITALS: BMI 34.7
[2016-09-05] MEDS ORDERED: HYDROmorphone HCL CARPU-JECT 1 MG/1 ML DISP.SYRIN IVPB ONE (15:24)
[2016-09-05] MEDS ORDERED: ONDANSETRON 4 MG/2 ML VIAL IVPB ONE (15:24)
[2016-09-05] MEDS ORDERED: HYDROmorphone HCL CARPU-JECT 1 MG/1 ML DISP.SYRIN ONE (16:35)
[2016-09-05] MEDS ORDERED: ONDANSETRON 4 MG/2 ML VIAL ONE (16:35)
--- NOTE | 2016-09-05 16:55 | PDOC ---
History of Present Illness - General History Source: Patient, Old Records Exam Limitations: No Limitations - History of Present Illness Initial Comments: 09/05/16 16:56 The patient is a 61 year old male with past medical history of IDDM, arthernosclerotic heart surgery, and cellulitis of left arm, Hep B, CKD, gout, chronic venous stasis changes who presents to the ED with complaints of RUQ pain for the past few days. The patient was evaluated yesterday in the ED for gangrenous gallbladder and was diagnosed of choleolithiasis. The patient states that his pain hasnt changed since yesterday- 10/22 in severity that radiates to his back shoulder blades. He reports taking hydrocodone for his pain. The patient denies any fevers, chills, nausea, vomiting, diarrhea, CP, SOB, or urinary symptoms. PCP: Sisi Huntley <Yolie Valles - Last Filed: 09/05/16 18:33> - General History Source: Patient Exam Limitations: No Limitations <Kvng Rachel - Last Filed: 09/08/16 08:34> - General Chief Complaint: Pain, Acute Stated Complaint: RUQ PAIN Time Seen by Provider: 09/05/16 14:35 Past History <Yolie Valles - Last Filed: 09/05/16 18:33> - Past Medical History Anemia: Yes Asthma: Yes Cancer: Yes (Left upper lung, stage 1) Cardiac Disorders: Yes (CAD,MO,CARDIOMYOPATHY,CARDIAC ARREST POST ICD) CVA: Yes COPD: Yes CHF: Yes Diabetes: Yes GI Disorders: Yes (GERD) Disorders: Yes (STONES HEP) HTN: Yes Hypercholesterolemia: Yes Liver Disease: Yes (Fatty Liver) Psychiatric Problems: Yes (anxiety/depression) - Surgical History Cardiac Surgery: Yes (quad bypass, ppm/defib) Orthopedic Surgery: Yes - Psycho/Social/Smoking Cessation Hx Anxiety: No Suicidal Ideation: No Smoking History: Current every day smoker Have you smoked in the past 12 months: Yes Number of Cigarettes Smoked Daily: 3 If you are a former smoker, when did you quit?: 2008 Information on smoking cessation initiated: No 'Breaking Loose' booklet given: 08/08/16 Hx Alcohol Use: No Drug/Substance Use Hx: No Substance Use Type: None Hx Substance Use Treatment: No <Kvng Rachel - Last Filed: 09/08/16 08:34> - Past Medical History Allergies/Adverse Reactions: Allergies Allergy/AdvReac Type Severity Reaction Status Date / Time Iodinated Contrast Media - Allergy Verified 09/05/16 14:27 Oral and [Iodinated Contrast Media - IV Dye] raw fruits/vegetables Allergy Intermediate Rash Uncoded 09/05/16 14:27 celery Allergy Uncoded 09/07/16 15:46 iv contrast dye Allergy Uncoded 09/05/16 14:27 melon Allergy Uncoded 09/07/16 15:46 pepper Allergy Uncoded 09/07/16 15:46 raw apples Allergy Uncoded 09/07/16 15:46 raw carrots Allergy Uncoded 09/07/16 15:46 Raw cherries Allergy Uncoded 09/07/16 17:40 Home Medications: Ambulatory Orders Allopurinol [Zyloprim -] 100 mg PO BID 09/05/16 Amoxicillin - [Amoxicillin 500mg Capsule -] 500 mg PO DAILY 09/05/16 Atorvastatin Calcium 40 mg PO HS 09/05/16 Calcium Carbonate 600 mg PO DAILY 09/05/16 Carvedilol 6.25 mg PO BID 09/05/16 Cholecalciferol (Vitamin D3) [Cholecalciferol] 1,000 unit MC DAILY 09/05/16 Colchicine 0.6 mg PO DAILY 09/05/16 Docusate Sodium 100 mg PO TID 09/05/16 Famotidine/Ca Carb/Mag Hydrox [Pepcid Complete Tablet Chew] 1 each PO DAILY Gabapentin [Neurontin -] 100 mg PO BID 09/05/16 Insulin Degludec [Tresiba Flextouch U-100] 70 unit SQ HS 09/05/16 Insulin Regular, Human [Humulin R U-500 Kwikpen] 30 unit SQ DAILY 09/05/16 Liraglutide [Victoza -] 1.8 mg SQ DAILY@0700 09/05/16 Lorazepam 0.5 mg PO HS 09/05/16 Nystatin Powder [Nystop Topical Powder -] 1 applic TP DAILY 09/05/16 Oxycodone HCl/Acetaminophen [Percocet 5-325 mg Tablet] 1 tab PO Q6H 09/05/16 Rivaroxaban [Xarelto -] 15 mg PO DAILY 09/05/16 Sennosides [Senno] 2 tab PO DAILY 09/05/16 Tamsulosin HCl 0.4 mg PO DAILY 09/05/16 Torsemide 100 mg PO BID 09/05/16 Review of Systems - Review of Systems Able to Perform ROS?: Yes Comments:: 09/05/16 16:56 GENERAL/CONSTITUTIONAL: No fever or chills. No weakness. HEAD, EYES, EARS, NOSE AND THROAT: No change in vision. No ear pain or discharge. No sore throat. CARDIOVASCULAR: No chest pain or shortness of breath. RESPIRATORY: No cough, wheezing, or hemoptysis. GASTROINTESTINAL: Present: RUQ pain No nausea, vomiting, diarrhea or constipation. GENITOURINARY: No dysuria, frequency, or change in urination. MUSCULOSKELETAL: No joint or muscle swelling or pain. No neck or back pain. SKIN: No rash NEUROLOGIC: No headache, vertigo, loss of consciousness, or change in strength/ sensation. ENDOCRINE: No increased thirst. No abnormal weight change. HEMATOLOGIC/LYMPHATIC: No anemia, easy bleeding, or history of blood clots. ALLERGIC/IMMUNOLOGIC: No hives or skin allergy. All Other Systems: Reviewed and Negative <Yolie Valles - Last Filed: 09/05/16 18:33> *Physical Exam - Vital Signs Last Vital Signs Temp Pulse Resp BP Pulse Ox 98.5 F 80 20 112/70 97 09/05/16 14:28 09/05/16 14:28 09/05/16 14:28 09/05/16 14:28 09/05/16 14:28 - Physical Exam Comments: 09/05/16 16:57 GENERAL: Awake, alert, and fully oriented, in no acute distress HEAD: No signs of trauma EYES: PERRLA, EOMI, sclera anicteric, conjunctiva clear ENT: Auricles normal inspection, hearing grossly normal, nares patent, oropharynx clear without exudates. Moist mucosa NECK: Normal ROM, supple, no lymphadenopathy, JVD, or masses LUNGS: Breath sounds equal, clear to auscultation bilaterally. No wheezes, and no crackles HEART: Regular rate and rhythm, normal S1 and S2, no murmurs, rubs or gallops ABDOMEN: Soft, RUQ tenderness to palpation, positive viera's sign, right sided chest port, normoactive bowel sounds. No guarding, no rebound. No masses EXTREMITIES: Normal range of motion, no edema. No clubbing or cyanosis. No cords, erythema, or tenderness NEUROLOGICAL: Cranial nerves II through XII grossly intact. Normal speech, normal gait SKIN: Warm, Dry, normal turgor, no rashes or lesions noted. RUQ tend to palp, post murphys, Right sided chest port <Yolie Valles - Last Filed: 09/05/16 18:33> - Vital Signs Last Vital Signs Temp Pulse Resp BP Pulse Ox 98.5 F 80 20 112/70 97 09/05/16 14:28 09/05/16 14:28 09/05/16 14:28 09/05/16 14:28 09/05/16 14:28 <Kvng Rachel - Last Filed: 09/08/16 08:34> Heart Score/ECG Review #1 ECG reviewed & interpreted by me at: 17:05 09/05/16 18:50 NSR 77 with 1st degree AV block 210 msec ([place]), RBBB, Q wave V1-V2, no std/tanmay, QTC 511 msec <Kvng Rachel - Last Filed: 09/08/16 08:34> ED Treatment Course - LABORATORY CBC & Chemistry Diagram: 09/05/16 16:14 09/05/16 16:14 - Medications Given in the ED: ED Medications Discontinued Medications Generic Name Dose Route Start Last Admin Trade Name Freq PRN Reason Stop Dose Admin Hydromorphone HCl 0.5 mg 09/05/16 15:24 09/05/16 16:30 Dilaudid Injection - IVPB 09/05/16 15:25 0.5 mg ONCE ONE Administration Ondansetron HCl 4 mg 09/05/16 15:24 09/05/16 16:30 Zofran Injection IVPB 09/05/16 15:25 4 mg ONCE ONE Administration <Yolie Valles - Last Filed: 09/05/16 18:33> - LABORATORY CBC & Chemistry Diagram: 09/07/16 06:00 09/07/16 06:00 - RADIOLOGY Radiology Studies Ordered: Category Date Time Status ABDOMEN US [US] Stat Ultrasound 09/05/16 16:38 Ordered - Medications Given in the ED: ED Medications Discontinued Medications Generic Name Dose Route Start Last Admin Trade Name Freq PRN Reason Stop Dose Admin Hydromorphone HCl 0.5 mg 09/05/16 15:24 09/05/16 16:30 Dilaudid Injection - IVPB 09/05/16 15:25 0.5 mg ONCE ONE Administration Ondansetron HCl 4 mg 09/05/16 15:24 09/05/16 16:30 Zofran Injection IVPB 09/05/16 15:25 4 mg ONCE ONE Administration <VirginieKvng - Last Filed: 09/08/16 08:34> Medical Decision Making - Medical Decision Making 09/05/16 18:[address] to Dr[address] Huntley, patient's PCP. Awaiting call back. <michealYolie roman - Last Filed: 09/05/16 18:33> - Medical Decision Making 09/05/16 16:53 A portion of this note was documented by scribe services under my direction. I have reviewed the details of the note, within reason, and agree with the documentation with the following case summary and management plan written by me. Patient treated in the ED. Nursing notes are reviewed and incorporated into the medical decision-making. Vital signs reviewed. Peripheral IV access obtained by the nurse, laboratory studies are drawn and sent, reviewed and interpreted by myself. Vital Signs Temp Pulse Resp BP Pulse Ox 98.5 F 80 20 112/70 97 09/05/16 14:28 09/05/16 14:28 09/05/16 14:28 09/05/16 14:28 09/05/16 14:28 61 year old male with past medical history diabetes, coronary disease, congestive heart failure, COPD, hepatitis B, chronic kidney disease, gout, chronic venous stasis chronic recent history of bacteremia with MRSA returns to the ED with persistent right upper quadrant pain. Patient was seen here yesterday and was worked up for biliary colic. At that time, was discharged. However, the patient had persistent right upper quadrant pain. Came into the ED for further evaluation. Denies fevers or chills. I suspect the patient is again likely having symptomatic biliary colic. We'll obtain a right upper quadrant and labs. We'll touch base with the patient's primary and general surgeon for further evaluation and disposition. 09/05/16 18:49 CBC, BMP 09/05/16 16:14 09/05/16 16:14 CMP Sodium 140 mmol/L (136-145) 09/05/16 16:14 Potassium 3.6 mmol/L (3.5-5.1) 09/05/16 16:14 Chloride 99 mmol/L (98-107) 09/05/16 16:14 Carbon Dioxide 34 mmol/L (21-32) H 09/05/16 16:14 Anion Gap 7 (8-16) L 09/05/16 16:14 BUN 24 mg/dL (7-18) H 09/05/16 16:14 Creatinine 1.5 mg/dL (0.7-1.3) H 09/05/16 16:14 Creat Clearance w eGFR 47.58 (>60) 09/05/16 16:14 Random Glucose 134 mg/dL (74-106) H D 09/05/16 16:14 Calcium 9.0 mg/dL (8.5-10.1) 09/05/16 16:14 Magnesium 2.3 mg/dL (1.8-2.4) 09/05/16 16:14 Total Bilirubin 1.0 mg/dL (0.2-1.0) D 09/05/16 16:14 AST 32 U/L (15-37) 09/05/16 16:14 ALT 14 U/L (12-78) 09/05/16 16:14 Alkaline Phosphatase 348 U/L (45-117) H 09/05/16 16:14 Creatine Kinase 78 IU/L (39-308) 09/05/16 16:14 Troponin I 0.04 ng/ml (0.00-0.05) 09/05/16 16:14 Total Protein 7.0 g/dl (6.4-8.2) 09/05/16 16:14 Albumin 3.0 g/dl (3.4-5.0) L 09/05/16 16:14 Lipase 91 U/L (73-393) 09/05/16 16:14 Ultrasound shows cholethiasis. Pt continues to have persistent RUQ pain. Given multiple ED visits and symptomatic biliary colic, will admit patient. Case discussed with Dr. Huntley. Will admit for med/surg admission. Case discussed in detail with admitting physician including history, physical exam and ancillary studies. Admitting physician has assumed care for the patient, will follow all pending diagnostics and will complete the evaluation and treatment. <Park,Kvng - Last Filed: 09/08/16 08:34> *DC/Admit/Observation/Transfer - Attestations Scribe Attestion: 09/05/16 16:58 Documentation prepared by Yolie Valles, acting as medical coder for Kvng Rachel MD. <Yolie Valles - Last Filed: 09/05/16 18:33> - Discharge Dispostion Admit: Yes <Kvng Rachel - Last Filed: 09/08/16 08:34> Diagnosis at time of Disposition: Biliary colic - Referrals
[2016-09-05 17:08] LABS: URINE APPEARANCE CLEAR; URINE BILIRUBIN NEGATIVE (NEGATIVE); URINE BLOOD NEGATIVE (NEGATIVE); URINE COLOR STRAW; URINE GLUCOSE (UA) NEGATIVE (NEGATIVE); URINE KETONE NEGATIVE (NEGATIVE); URINE LEUK ESTERASE NEGATIVE (NEGATIVE); URINE NITRITE NEGATIVE (NEGATIVE); URINE PROTEIN NEGATIVE (NEGATIVE); URINE UROBILINOGEN NEGATIVE mg/dL (0.2-1.0)
[2016-09-05 17:13] LABS: BASOPHIL 0.8 % (0-2.0); EOSINOPHIL 11.9 % (0-4.5); MCH 30.6 pg (25.7-33.7); MCHC 33.4 g/dl (32.0-35.9); MEAN CELL VOLUME 91.6 fl (80-96); MEAN PLT VOLUME 9.4 fl (7.5-11.1); NEUTROPHILS 53.5 % (42.8-82.8); PLATELET COUNT 135 K/MM3 (134-434); RDW 16.8 % (11.9-15.9)
[2016-09-05 17:16] LABS: INR 1.79 (0.82-1.09); PROTHROMBIN TIME (PATIENT) 19.9 SEC (9.98-11.88)
[2016-09-05 17:19] LABS: ACTIVATED PTT 37.7 SECONDS (26.9-34.4)
[2016-09-05 17:28] LABS: ANION GAP 7 (8-16); CO2 34 mmol/L (21-32); CREATININE 1.5 mg/dL (0.7-1.3); GLUCOSE,RANDOM 134 mg/dL (74-106); MAGNESIUM 2.3 mg/dL (1.8-2.4); SGOT/AST 32 U/L (15-37); SGPT/ALT 14 U/L (12-78)
[2016-09-05 17:32] LABS: ALK PHOS 348 U/L (45-117); TROPONIN I 0.04 ng/ml (0.00-0.05)
--- NOTE | 2016-09-05 22:18 | HP ---
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 ) Cardiovascular: Yes: CAD, CHF (s/p defibrillator for cardiac arrest and low LVEF ), Deep Vein Thrombosis, HTN, Hyperlipdemia, [place], Mitral Insufficiency, Other ( Ischemic cardiomyopathy, s/p CABG) Pulmonary: Yes: Cancer (undocumented cell type), COPD Gastrointestinal: Yes: Ascites Hepatobiliary: Yes: Cirrhosis, Cholelithiasis, Hepatitis B, Other Renal/: Yes: Renal Inusuff, BPH, UTI Heme/Onc: Yes: Other (DVT or RLE) Infectious Disease: Yes: Other (Chronic lower extremity bilateral cellulitis ) Rheumatology: Yes: Gout, Other (left rotator cuff tear) Endocrine: Yes: Diabetes Mellitus - Past Surgical History Past Surgical History: Yes: AICD, CABG - Smoking History Smoking history: Current every day smoker Have you smoked in the past 12 months: Yes Aproximately how many cigarettes per day: 3 If you are a former smoker, when did you quit?: 2009 - Alcohol/Substance Use Hx Alcohol Use: No History of Substance Use: reports: None - Social History ADL: Independent 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, 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 History of Recent Travel: No Home Medications - Allergies Allergies/Adverse Reactions: Allergies Allergy/AdvReac Type Severity Reaction Status Date / Time Iodinated Contrast Media - Allergy Verified 09/05/16 14:27 Oral and [Iodinated Contrast Media - IV Dye] raw fruits/vegetables Allergy Intermediate Rash Uncoded 09/05/16 14:27 iv contrast dye Allergy Uncoded 09/05/16 14:27 - Home Medications Home Medications: Ambulatory Orders Allopurinol [Zyloprim -] 100 mg PO BID 09/05/16 Amoxicillin - [Amoxicillin 500mg Capsule -] 500 mg PO DAILY 09/05/16 Atorvastatin Calcium 40 mg PO HS 09/05/16 Calcium Carbonate 600 mg PO DAILY 09/05/16 Carvedilol 6.25 mg PO BID 09/05/16 Cholecalciferol (Vitamin D3) [Cholecalciferol] 1,000 unit MC DAILY 09/05/16 Colchicine 0.6 mg PO DAILY 09/05/16 Docusate Sodium 100 mg PO TID 09/05/16 Famotidine/Ca Carb/Mag Hydrox [Pepcid Complete Tablet Chew] 1 each PO DAILY Gabapentin [Neurontin -] 100 mg PO BID 09/05/16 Insulin Degludec [Tresiba Flextouch U-100] 70 unit SQ HS 09/05/16 Insulin Regular, Human [Humulin R U-500 Kwikpen] 30 unit SQ DAILY 09/05/16 Liraglutide [Victoza -] 1.8 mg SQ DAILY@0700 09/05/16 Lorazepam 0.5 mg PO HS 09/05/16 Nystatin Powder [Nystop Topical Powder -] 1 applic TP DAILY 09/05/16 Oxycodone HCl/Acetaminophen [Percocet 5-325 mg Tablet] 1 tab PO Q6H 09/05/16 Rivaroxaban [Xarelto -] 15 mg PO DAILY 09/05/16 Sennosides [Senno] 2 tab PO DAILY 09/05/16 Tamsulosin HCl 0.4 mg PO DAILY 09/05/16 Torsemide 100 mg PO BID 09/05/16 Family Disease History - Family Disease History Family Disease History: CA: Father (bilateral kidney cancers), Mother (skin cancer), Other: Father, Mother, Brother, Sister Physical Examination Vital Signs: Vital Signs Temperature 98.5 F 09/05/16 20:44 Pulse Rate 74 09/05/16 20:44 Respiratory Rate 19 09/05/16 20:44 Blood Pressure 119/74 09/05/16 20:44 O2 Sat by Pulse Oximetry (%) 97 09/05/16 20:44
[2016-09-06] MEDS ORDERED: OXYCODONE/APAP 5/325MG COMBO TABLET PO PRN (01:11)
[2016-09-06] MEDS ORDERED: CEFAZOLIN 2 GM in DEXTROSE 5%-WATER - 50 ML IVPB SCH (02:00)
[2016-09-06] MEDS: DEXTROSE 5%-0.45% SALINE 1,000 ML IV SCH (02:00)
[2016-09-06] MEDS: DOCUSATE SODIUM 100 MG CAPSULE (FP) PO SCH ×3 (05:29→21:14)
[2016-09-06] MEDS: oxyCODONE HCL 5 MG TABLET PO PRN ×2 (05:30→21:24)
[2016-09-06] MEDS: ACETAMINOPHEN 325 MG TABLET (FP) PO PRN ×2 (05:31→21:25)
[2016-09-06] MEDS: CEFAZOLIN 2 GM/D5W 50 ML IVPB SCH ×2 (05:32→13:06)
[2016-09-06] MEDS: TORSEMIDE 100 MG TABLET PO SCH ×2 (06:29→13:27)
[2016-09-06] MEDS ORDERED: LIRAGLUTIDE 0.6 MG/0.1 ML PEN.INJCTR SQ SCH (07:00)
[2016-09-06] MEDS: INSULIN SLIDING SCALE (NOVOLOG) 1 VIAL SQ SCH ×4 (08:05→21:24)
--- NOTE | 2016-09-06 09:43 | CON.GI ---
Consult Consult Specialty:: GI for Dr. Lorenzo Referred by:: Dr. Sisi Huntley Reason for Consultation:: RUQ pain - History of Present Illness Chief Complaint: RUQ pain History of Present Illness: Patient [facility] yesterday with RUQ pain after his recent discharge from here on 08/18 here for sepsis, cellulitis, with elevated LFTs and gall stones. He described the pain as stabbing in nature, constant, worsened by movement in any direction, worsened upon deep inspiration and relieved by staying still, partially with oral opiate analgesia. The pain is not affected by meals, has a good appetite. He and his explain that about 6 weeks ago he may have fallen onto the floor while sitting on a walker ( patient describes sliding down onto floor). He has no nausea or vomiting, no chills or fever. He has had a history of constipation however is chronically on oxycodone for previous shoulder surgery. Stool is brown, formed or hard and non- bloody and non mucoid. No previous history of GI bleeds, and no previous history of EGD or colonoscopy. In ER work-up included vitals (afebrilee), labs (normal transaminases/bili, chronically elevated ALP) and imaging (CT scan non contrast revealing cirrhotic enlarged liver, no evidence of acute cholecystitis ) and abdominal US (contracted GB with stones, no biliary duct dilation, no sonographic evidence of acute cholecystitis). He also underwent HIDA scan 08/21 that was negative for acute cholecystitis. - History Source History Provided By: Patient (patient referred me to his records, said he had said everything to prior doctors), Medical Record, Transfer Record Limitations to Obtaining History: Uncooperative - Past Medical History TEST MAN: Yes: CVA, Other (Anoxic brain damage when suffered cardiac arrest requiring 10 days of induced coma at [facility]. ) Cardio/Vascular: Yes: CAD, CHF (s/p defibrillator for cardiac arrest and low LVEF), Deep Vein Thrombosis, HTN, Hyperlipdemia, [place], Mitral Insufficiency, Other (Ischemic cardiomyopathy, s/p CABG) Pulmonary: Yes: Cancer (Left lung, undocumented cell type ), COPD Gastrointestinal: Yes: Ascites Hepatobiliary: Yes: Cirrhosis, Cholelithiasis, Hepatitis B (Hepatitis B surface antibody + / core antibody / surface antigen negative + 08/28), Other (Ascites suspected cardiogenic treated for perotinitis 05/29) Renal/: Yes: Renal Inusuff, BPH, UTI, Other (Has an enlarged prostate) Infectious Disease: Yes: Other (Chronic lower extremity bilateral cellulitis ) Rheumatology: Yes: Gout, Other (left rotator cuff tear) ENT: Yes: Other (Use a hearing aid in the left ear that uis currently low in battery) Endocrine: Yes: Diabetes Mellitus Additional Medical History: Has poor vision in both eyes, worse on the right eye - Past Surgical History Past Surgical History: Yes: AICD, CABG, Joint Replacement (Had left shoulder surgery) - Alcohol/Substance Use Hx Alcohol Use: No History of Substance Use: reports: None - Smoking History Smoking history: Current every day smoker Have you smoked in the past 12 months: Yes Aproximately how many cigarettes per day: 3 If you are a former smoker, when did you quit?: 2008 - Social History Usual Living Arrangement: With Spouse ADL: Independent 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, 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 Travel: No Home Medications - Allergies Allergies/Adverse Reactions: Allergies Allergy/AdvReac Type Severity Reaction Status Date / Time Iodinated Contrast Media - Allergy Verified 09/05/16 14:27 Oral and [Iodinated Contrast Media - IV Dye] raw fruits/vegetables Allergy Intermediate Rash Uncoded 09/05/16 14:27 iv contrast dye Allergy Uncoded 09/05/16 14:27 - Home Medications Home Medications: Ambulatory Orders Allopurinol [Zyloprim -] 100 mg PO BID 09/05/16 Amoxicillin - [Amoxicillin 500mg Capsule -] 500 mg PO DAILY 09/05/16 Atorvastatin Calcium 40 mg PO HS 09/05/16 Calcium Carbonate 600 mg PO DAILY 09/05/16 Carvedilol 6.25 mg PO BID 09/05/16 Cholecalciferol (Vitamin D3) [Cholecalciferol] 1,000 unit MC DAILY 09/05/16 Colchicine 0.6 mg PO DAILY 09/05/16 Docusate Sodium 100 mg PO TID 09/05/16 Famotidine/Ca Carb/Mag Hydrox [Pepcid Complete Tablet Chew] 1 each PO DAILY Gabapentin [Neurontin -] 100 mg PO BID 09/05/16 Insulin Degludec [Tresiba Flextouch U-100] 70 unit SQ HS 09/05/16 Insulin Regular, Human [Humulin R U-500 Kwikpen] 30 unit SQ DAILY 09/05/16 Liraglutide [Victoza -] 1.8 mg SQ DAILY@0700 09/05/16 Lorazepam 0.5 mg PO HS 09/05/16 Nystatin Powder [Nystop Topical Powder -] 1 applic TP DAILY 09/05/16 Oxycodone HCl/Acetaminophen [Percocet 5-325 mg Tablet] 1 tab PO Q6H 09/05/16 Rivaroxaban [Xarelto -] 15 mg PO DAILY 09/05/16 Sennosides [Senno] 2 tab PO DAILY 09/05/16 Tamsulosin HCl 0.4 mg PO DAILY 09/05/16 Torsemide 100 mg PO BID 09/05/16 Family Disease History - Family Disease History Family Disease History: CA: Father (bilateral kidney cancers), Mother (skin cancer), Other: Father, Mother, Brother, Sister Other Family History: No family history of colorectal cancer or Liver disease Review of Systems - Review of Systems Constitutional: denies: Chills, Fever HENT: denies: Difficult Swallowing Cardiovascular: denies: Shortness of Breath Respiratory: denies: Cough Gastrointestinal: reports: Abdominal Pain (As in HPI above), Constipation. denies: Diarrhea, Indigestion, Melena, Nausea, Rectal Bleeding, Vomiting Genitourinary: reports: Frequency, Other (has hesitancy) Physical Exam-GI Vital Signs: Vital Signs Temperature 98.6 F 09/06/16 05:33 Pulse Rate 86 09/06/16 05:33 Respiratory Rate 20 09/06/16 05:33 Blood Pressure 127/84 09/06/16 05:33 O2 Sat by Pulse Oximetry (%) 97 09/05/16 20:44 Constitutional: Yes: No Distress, Obese Eyes: Yes: Conjunctiva Clear Cardiovascular: Yes: Regular Rate and Rhythm, Murmur (Right sternal border, systolic) Respiratory: Yes: CTA Bilaterally Gastrointestinal Inspection: Yes: Scars (sternotomy scar extending to upper abdomen). No: Distention ...Auscultate: Yes: Normoactive Bowel Sounds ...Palpate: Yes: Tenderness (TTP, prediminantly along border of lower right ribs anteriorly and laterally, mild TTP upon palpation of lower ribs/ intercostals posteriorly. + CVA tenderness). No: Hepatomegaly, Splenomegaly ...Percussion: No: Tympanitic ...Rectal Exam: Yes: Other (No performed at this time) Edema: Yes Edema: LLE: 1+ (chronic stasis changes), RLE: 1+ (chronic stasis changes) Labs: INR, PTT INR 1.79 (0.82-1.09) H 09/05/16 16:14 Imaging - Results Cat Scan: Report Reviewed, Image Reviewed Ultrasound: Report Reviewed Problem List - Problems (1) RUQ pain Assessment/Plan: Assessment The pain described appears to be reproducible on exam and focused mainly along the right lower ribs, predominantly anteriorly laterally. It is constant, pleuritic and worsened with position change and Mr. Holley is otherwise devoid of GI complaints. This is not typical of biliary colic / acute cholecystitis and he does not appear to have acute cholecystitis. He does have chronically elevated ALP that is likely on the basis of congestive hepatopathy ( contributing to his hepatomegaly and cirrhosis noted on previous imaging studies ). Question if there is alternate pathology leading to his constant pain such as somatic (musculoskeletal pain affecting right ribs), pulmonary or neurogenic as opposed to cholelithiasis. ? if stretching of miranda's capsule in setting of hepatomegaly / passive congestion contributing. Plan: He is going for repeat HIDA scan. Given his multiple medical problems and significant cardiac dysfunction, would be hard pressed to commit him to a surgery given that presentation not clearly pointing towards symptomatic cholelithiasis. Any surgical undertakings should be at a tertiary care center Needs Q 6 Month AFP tumor marker testing / hepatic US to screen for HCC given history of cirrhosis ATTENDING PHYSICIAN STATEMENT I saw and evaluated the patient. Directly wrote consultation with Dr. Lawton I reviewed the resident's note and discussed the case with the resident. I agree with the resident's findings and plan as documented. SUBJECTIVE: See above. I Directly wrote the consultation with Dr. Lawton OBJECTIVE: See above ASSESSMENT AND PLAN: See above Julio César Edgar D.O. Code(s): R10.11 - RIGHT UPPER QUADRANT PAIN
[2016-09-06] MEDS ORDERED: PATIENT'S OWN MEDICATION (NON-FORMULARY) (Insulin Regular, Human [Humulin R U-500 Kwikpen] SQ SCH (10:00)
[2016-09-06] MEDS: TAMSULOSIN HCL 0.4 MG CAP.ER.24H (FP) PO SCH ×2 (10:24→13:26)
[2016-09-06] MEDS: SENNOSIDES 8.6MG TABLET (FP) PO SCH ×2 (10:25→13:07)
--- NOTE | 2016-09-06 12:59 | EKG ---
Test Reason : Blood Pressure : / mmHG Vent. Rate : 077 BPM Atrial Rate : 077 BPM P-R Int : 210 ms QRS Dur : 146 ms QT Int : 452 ms P-R-T Axes : 060 163 097 degrees QTc Int : 511 ms SINUS RHYTHM WITH 1ST DEGREE A-V BLOCK POSSIBLE LEFT ATRIAL ENLARGEMENT RIGHT BUNDLE BRANCH BLOCK SEPTAL INFARCT (CITED ON OR BEFORE 05-SEP-2016) ABNORMAL ECG WHEN COMPARED WITH ECG OF 04-SEP-2016 18:13, PREVIOUS ECG HAS UNDETERMINED RHYTHM, NEEDS REVIEW RIGHT BUNDLE BRANCH BLOCK HAS REPLACED NON-SPECIFIC INTRA-VENTRICULAR CONDUCTION BLOCK Confirmed by DANNA CASTELLON MD ([id number]) on 09/06/2016 12:58:53 PM Referred By: Confirmed By:DANNA CASTELLON MD
[2016-09-06] MEDS: ALLOPURINOL 100 MG TABLET (FP) PO SCH ×2 (13:07→21:15)
[2016-09-06] MEDS: GABAPENTIN 100 MG CAPSULE (FP) PO SCH ×2 (13:07→21:15)
[2016-09-06] MEDS: CARVEDILOL 6.25 MG TABLET (FP) PO SCH ×2 (13:07→21:14)
[2016-09-06] MEDS: RIVAROXABAN 15 MG TABLET PO SCH (13:26)
--- NOTE | 2016-09-06 14:13 | PN ---
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 he had a sonogram for abnl LFTs at the [place] 09/02 after which he began to have abdominal pain denies trauma, notes discomfort with deep inspiration at the same area denies fever, chills, nausea or vomiting no dysuria no falls no rash ua negative has completed 3 weeks iv antibiotics (cefazolin) for ecoli bacteremia felt secondary to uti/prostatitis alk phos is actually markedly improved and HIDA was negative prior to recent discharge on 08/23 I spoke with [place] nurse he finished last dose of ancef on 09/03 and was started on po amox 500 tid HIDA scan and ct scan reviewed with Dr Ortiz no evidence of renal disease, HIDA is negative, no rib fracture noted does have very distended bladder extending to the right and a large prostate suggest bladder scan pre and post void may need urology evaluation ua is negative can d/c cefazolin and picc lilne resume po amox 500 tid for 3 weeks for prostatitis (avoiding levaquin due to prolonged qt and bactrim due to elevated creatinine) history of lung cancer s/p radiation therapy f/u with Dr Anna shepherd of cardiomyopathy
--- NOTE | 2016-09-06 16:38 | PN ---
Progress Note, Physician - Current Medication List Current Medications: Active Medications Acetaminophen (Tylenol -) 325 mg PO Q6H PRN PRN Reason: PAIN Last Admin: 09/06/16 05:31 Dose: 325 mg Allopurinol (Zyloprim -) 100 mg PO BID [facility] Last Admin: 09/06/16 13:07 Dose: 100 mg Amoxicillin (Amoxicillin -) 500 mg PO TID [facility] Atorvastatin Calcium (Lipitor -) 40 mg PO HS [facility] Carvedilol (Coreg -) 6.25 mg PO BID [facility] Last Admin: 09/06/16 13:07 Dose: 6.25 mg Docusate Sodium (Colace -) 100 mg PO TID [facility] Last Admin: 09/06/16 13:07 Dose: 100 mg Gabapentin (Neurontin -) 100 mg PO BID [facility] Last Admin: 09/06/16 13:07 Dose: 100 mg Dextrose/Sodium Chloride (D5-1/2ns -) 1,000 mls @ 75 mls/hr IV ASDIR [facility] Last Admin: 09/06/16 02:00 Dose: 75 mls/hr Insulin Aspart (Novolog Vial Sliding Scale -) 1 vial SQ ACHS [facility] PRN Reason: Protocol Last Admin: 09/06/16 13:31 Dose: Not Given Lorazepam (Ativan -) 0.5 mg PO HS [facility] Oxycodone HCl (Roxicodone -) 5 mg PO Q6H PRN PRN Reason: PAIN Last Admin: 09/06/16 05:30 Dose: 5 mg Rivaroxaban (Xarelto -) 15 mg PO DAILY [facility] Last Admin: 09/06/16 13:26 Dose: 15 mg Senna (Senna -) 2 tab PO DAILY [facility] Last Admin: 09/06/16 13:07 Dose: 2 tab Tamsulosin HCl (Flomax -) 0.4 mg PO DAILY@0830 [facility] Last Admin: 09/06/16 13:26 Dose: 0.4 mg Torsemide (Demadex -) 100 mg PO BIDLASIX [facility] Last Admin: 09/06/16 13:27 Dose: 100 mg - Objective Vital Signs: Vital Signs Temperature 98.6 F 09/06/16 14:00 Pulse Rate 88 09/06/16 14:00 Respiratory Rate 18 09/06/16 14:00 Blood Pressure 126/65 09/06/16 14:00 O2 Sat by Pulse Oximetry (%) 97 07/25/17 20:44 Labs: INR, PTT INR 1.79 (0.82-1.09) H 09/05/16 16:14
--- NOTE | 2016-09-06 17:42 | CONS ---
DATE OF CONSULTATION: DATE OF DICTATION: 09/06/2016 INFECTIOUS DISEASE CONSULTATION HISTORY OF PRESENT ILLNESS: This is a 61-year-old man who was recently in the hospital with E. coli bacteremia. He was felt to have urosepsis and prostatitis and discharged to the longterm on August 23 on cephazolin. He is now readmitted with right upper quadrant pain. The patient had an extensive evaluation during that admission. He had a rising alkaline phosphatase, he had an evaluation including CAT scan of his abdomen and pelvis, of his chest as well as a CAT scan of his left shoulder which showed an effusion. The shoulder effusion was tapped. He had a HIDA scan and his alkaline phosphatase peaked at about 800. He was felt to have known liver cirrhosis on the basis of hepatic congestion from his cardiac disease. He was discharged to the longterm on cephazolin, which I spoke with the longterm and the staff, which he completed on the . He was switched to amoxicillin 500 t.i.d. which he was to complete to take of r3 weeks. On the in the longterm, he had a sonogram of his gallbladder done for abnormal LFTs; apparently, at that point, I spoke with the nurse practitioner there. He did not have any abdominal pain. Subsequently after having had the sonogram, he complained of discomfort in the right upper quadrant. He came to the emergency room on the , he had a CAT scan that was read as unremarkable. He was discharged, and he was readmitted on the for HIDA scan. He has no fevers or chills. There is no nausea or vomiting. He has no dysuria. He denies any fall in the longterm. He has no rash. Urinalysis done here is completely negative. He has now completed 3 weeks of IV antibiotics for E. coli bacteremia felt secondary to UTI prostatitis. PAST MEDICAL HISTORY: Notable for history of anemia, asthma. He was felt to have cancer in his left upper lobe and is status post radiation therapy, which his reports he completed in the last 1-2 months. He has a history of coronary artery disease with cardiomyopathy. He is status post cardiac arrest and has an ICD. He is followed closely for his COPD and lung nodule by Dr. Castillo. He has a history of CVA, COPD, CHF, diabetes, GERD. He has a history of gallstones, fatty liver, anxiety, depression. SURGICAL HISTORY: Notable for quadruple bypass, and he has an AICD and a pacemaker. He is allergic to CONTRAST DYE and RAW FRUITS AND VEGETABLES. MEDICATION: At the longterm include allopurinol, amoxicillin, atorvastatin, calcium carbonate, Coreg, vitamin D, colchicine, gabapentin, insulin, Victoza, lorazepam, oxycodone, Xarelto, senna, tamsulosin, furosemide. SOCIAL HISTORY: Currently he is residing at the longterm. REVIEW OF SYSTEMS: He denies any GI symptoms except the pain. He has no nausea, vomiting, diarrhea, or dysuria. He had no constipation. In fact, he reports his appetite is good. He has no fevers or chills. PHYSICAL EXAMINATION: General: He is awake and alert. In no acute distress. Vital signs: He has had no fever. Temperature 98.6, pulse 88, blood pressure 126/65, respiratory rate 18, he is saturating 97%, he weighs 249. HEENT: Normocephalic. Eyes are anicteric. Neck: Supple. Lungs: Clear to auscultation. Heart: Regular rate and rhythm. AICD site is without any erythema. Abdomen: Soft. He has good bowel sounds. He has some right upper quadrant discomfort. It radiates around to his right flank. He has no CVA tenderness. The rest of his abdominal exam is benign. He has suprapubic fullness. Extremities: Without edema. He has full range of motion of his right shoulder. LABORATORY: His white count is 6, hemoglobin of 12.4, platelets of 135, BUN and creatinine are 24 and 1.5. His alkaline phosphatase is 348. At the time of discharge on August 22, it was 688, so it is markedly improved. The rest of his LFTs are normal. Urinalysis is negative. IMPRESSION: In summary, this is a 61-year-old man with right upper quadrant pain of unclear etiology. Reviewed his HIDA scan and CAT scan with Dr. Ortiz; there is no evidence of any renal disease, and the HIDA scan is negative. No rib fractures noted in the lower rib that is visible on the CAT scan. He does have a very distended bladder extending to the right, and a large prostate. Would suggest a bladder scan pre and post void, may need urology evaluation, UA is negative. Can stop his cephazolin and PICC line. Can resume oral amoxicillin for another 3 weeks. We are avoiding Levaquin due to prolonged QT on a prior EKG and Bactrim due to elevated creatinine. Further recommendations to follow based on his clinical course. Of note, he had on CAT scan here evidence of left upper lobe nodularity but has recently had radiation therapy to that site, and should have followup CT scan in the next 4-6 weeks. GHAZALA YOUSSEF M.D. [id number]
[2016-09-06] MEDS: AMOXICILLIN 500 MG CAPSULE (FP) PO SCH (21:13)
[2016-09-06] MEDS: ATORVASTATIN CA 40 MG TABLET (FP) PO SCH (21:14)
[2016-09-06] MEDS: LORazepam 0.5 MG TABLET PO SCH (21:14)
[2016-09-06] MEDS ORDERED: INSULIN (NOVOLOG) ASPART 100 UNITS/ML 10ML VIAL ONE (21:22)
[2016-09-06] MEDS ORDERED: INSULIN DEGLUDEC SQ SCH (22:00)
[2016-09-07] MEDS ORDERED: PT OWN MED DRAWER 7, Y5N ONE ×4 (06:10→17:54)
[2016-09-07] MEDS: DOCUSATE SODIUM 100 MG CAPSULE (FP) PO SCH ×3 (06:19→21:01)
[2016-09-07] MEDS: TORSEMIDE 100 MG TABLET PO SCH ×2 (06:19→16:07)
[2016-09-07] MEDS: AMOXICILLIN 500 MG CAPSULE (FP) PO SCH ×3 (06:19→21:01)
[2016-09-07] MEDS: INSULIN SLIDING SCALE (NOVOLOG) 1 VIAL SQ SCH ×4 (06:19→21:04)
--- NOTE | 2016-09-07 06:19 | CONSULT ---
Consult Consult Specialty:: surgery Reason for Consultation:: abdominal pain - History of Present Illness History of Present Illness: e patient is a 61 year old male with past medical history of IDDM, arthernosclerotic heart surgery, and cellulitis of left arm, Hep B, CKD, gout, chronic venous stasis changes who presents to the ED with complaints of RUQ pain for the past few days. 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 ) Cardio/Vascular: Yes: CAD, CHF (s/p defibrillator for cardiac arrest and low LVEF), Deep Vein Thrombosis, HTN, Hyperlipdemia, MT, Mitral Insufficiency, Other (Ischemic cardiomyopathy, s/p CABG) Pulmonary: Yes: Cancer (Left lung, undocumented cell type ), COPD Gastrointestinal: Yes: Ascites Hepatobiliary: Yes: Cirrhosis, Cholelithiasis, Hepatitis B (Hepatitis B surface antibody + / core antibody / surface antigen negative + 08/28), Other (Ascites suspected cardiogenic treated for perotinitis 05/29) Renal/: Yes: Renal Inusuff, BPH, UTI, Other (Has an enlarged prostate) Infectious Disease: Yes: Other (Chronic lower extremity bilateral cellulitis ) Rheumatology: Yes: Gout, Other (left rotator cuff tear) ENT: Yes: Other (Use a hearing aid in the left ear that uis currently low in battery) Endocrine: Yes: Diabetes Mellitus Additional Medical History: Has poor vision in both eyes, worse on the right eye - Past Surgical History Past Surgical History: Yes: AICD, CABG, Joint Replacement (Had left shoulder surgery) - Alcohol/Substance Use Hx Alcohol Use: No History of Substance Use: reports: None - Smoking History Smoking history: Current every day smoker Have you smoked in the past 12 months: Yes Aproximately how many cigarettes per day: 3 If you are a former smoker, when did you quit?: 2008 - Social History Usual Living Arrangement: With Spouse ADL: Independent 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, 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 Travel: No Home Medications - Allergies Allergies/Adverse Reactions: Allergies Allergy/AdvReac Type Severity Reaction Status Date / Time Iodinated Contrast Media - Allergy Verified 09/05/16 14:27 Oral and [Iodinated Contrast Media - IV Dye] raw fruits/vegetables Allergy Intermediate Rash Uncoded 09/05/16 14:27 iv contrast dye Allergy Uncoded 09/05/16 14:27 - Home Medications Home Medications: Ambulatory Orders Allopurinol [Zyloprim -] 100 mg PO BID 09/05/16 Amoxicillin - [Amoxicillin 500mg Capsule -] 500 mg PO DAILY 09/05/16 Atorvastatin Calcium 40 mg PO HS 09/05/16 Calcium Carbonate 600 mg PO DAILY 09/05/16 Carvedilol 6.25 mg PO BID 09/05/16 Cholecalciferol (Vitamin D3) [Cholecalciferol] 1,000 unit MC DAILY 09/05/16 Colchicine 0.6 mg PO DAILY 09/05/16 Docusate Sodium 100 mg PO TID 09/05/16 Famotidine/Ca Carb/Mag Hydrox [Pepcid Complete Tablet Chew] 1 each PO DAILY Gabapentin [Neurontin -] 100 mg PO BID 09/05/16 Insulin Degludec [Tresiba Flextouch U-100] 70 unit SQ HS 09/05/16 Insulin Regular, Human [Humulin R U-500 Kwikpen] 30 unit SQ DAILY 09/05/16 Liraglutide [Victoza -] 1.8 mg SQ DAILY@0700 09/05/16 Lorazepam 0.5 mg PO HS 09/05/16 Nystatin Powder [Nystop Topical Powder -] 1 applic TP DAILY 09/05/16 Oxycodone HCl/Acetaminophen [Percocet 5-325 mg Tablet] 1 tab PO Q6H 09/05/16 Rivaroxaban [Xarelto -] 15 mg PO DAILY 09/05/16 Sennosides [Senno] 2 tab PO DAILY 09/05/16 Tamsulosin HCl 0.4 mg PO DAILY 09/05/16 Torsemide 100 mg PO BID 09/05/16 Family Disease History - Family Disease History Family Disease History: CA: Father (bilateral kidney cancers), Mother (skin cancer), Other: Father, Mother, Brother, Sister Other Family History: No family history of colorectal cancer or Liver disease Physical Exam Vital Signs: Vital Signs Temperature 98.2 F 09/06/16 22:00 Pulse Rate 88 09/06/16 22:00 Respiratory Rate 18 09/06/16 22:00 Blood Pressure 114/62 09/06/16 22:00 O2 Sat by Pulse Oximetry (%) 97 09/05/16 20:44 Imaging - Results Ultrasound: Report Reviewed, Image Reviewed Other: Report Reviewed, Image Reviewed Problem List - Problems (1) RUQ pain Code(s): R10.11 - RIGHT UPPER QUADRANT PAIN Assessment/Plan 61 yr old with complex past medical history presenting with RUQ pain This is not acute cholecystitis Biliary colic vs PUD No need for urgent surgical intervention Consider Trial of PPIs
[2016-09-07 08:25] LABS: BASOPHIL 1.2 % (0-2.0); EOSINOPHIL 11.8 % (0-4.5); MCH 30.7 pg (25.7-33.7); MCHC 32.9 g/dl (32.0-35.9); MEAN CELL VOLUME 93.2 fl (80-96); MEAN PLT VOLUME 9.1 fl (7.5-11.1); NEUTROPHILS 56.8 % (42.8-82.8); PLATELET COUNT 112 K/MM3 (134-434); RDW 16.7 % (11.9-15.9); WHITE BLOOD COUNT 5.4 K/mm3 (4.0-10.0)
--- NOTE | 2016-09-07 08:57 | PN ---
Physical Exam: SUBJECTIVE: Patient seen and examined. Has not had opiates this morning and feels less abdominal pain. Says the pain at his back while getting in and out of bed feels much better. Has a good appetite, finished his meal this am. Requesting that when discharged, it should be to home and not to a nursing facility. Surgeons think he should be on PPI trial for PUD/biliary colic. Has been recommended to be off antibiotics by Infectious diseases team. Patient requested to have his dextrose/saline stopped as he is diabetic and taking orally, and on fluid restriction for his heart. OBJECTIVE: HIDA scan excluded acute cystic duct obstruction and acute cholecystitis. Transaminases still within normal limit, ALP trending down. Vital Signs Period Temp Pulse Resp BP Sys/Mcconnell Pulse Ox Last 24 Hr 98 F-98.6 F 83-88 18-20 113-138/62-86 GENERAL: The patient is awake, alert, and fully oriented, in no acute distress. EYES: sclera anicteric, conjunctiva clear LUNGS: Breath sounds equal, clear to auscultation bilaterally, no wheezes, no crackles, no accessory muscle use. HEART: Regular rate and rhythm, S1, S2 , stage II murmur, right sternal border. ABDOMEN: Soft, obese, normoactive bowel sounds, mild tenderness RUQ, mild R CVA tenderness EXTREMITIES: 2+ pulses, warm, chronic venous stasis bilaterally. PSYCH: Jovial mood, normal affect. Laboratory Results - last 24 hr 09/06/16 09/06/16 09/06/16 13:29 17:50 21:21 WBC RBC Hgb Hct MCV MCH MCHC RDW Plt Count MPV Neutrophils % Lymphocytes % Monocytes % Eosinophils % Basophils % POC Glucometer 161 203 243 09/07/16 09/07/16 06:00 06:12 WBC 5.4 RBC 4.13 Hgb 12.7 Hct 38.4 MCV 93.2 MCH 30.7 MCHC 32.9 RDW 16.7 H Plt Count 112 L MPV 9.1 Neutrophils % 56.8 Lymphocytes % 20.3 Monocytes % 9.9 Eosinophils % 11.8 H Basophils % 1.2 POC Glucometer 226 Active Medications Generic Name Dose Route Start Last Admin Trade Name Freq PRN Reason Stop Dose Admin Acetaminophen 325 mg 09/06/16 01:32 09/06/16 21:25 Tylenol - PO 325 mg Q6H PRN Administration PAIN Allopurinol 100 mg 09/06/16 10:00 09/06/16 21:15 Zyloprim - PO 100 mg BID [facility] Administration Amoxicillin 500 mg 09/06/16 22:00 09/07/16 06:19 Amoxicillin - PO 500 mg TID [facility]EN Administration Atorvastatin Calcium 40 mg 09/06/16 22:00 09/06/16 21:14 Lipitor - PO 40 mg HS [facility] Administration Carvedilol 6.25 mg 09/06/16 10:00 09/06/16 21:14 Coreg - PO 6.25 mg BID [facility] Administration Docusate Sodium 100 mg 09/06/16 06:00 09/07/16 06:19 Colace - PO 100 mg TID [facility] Administration Gabapentin 100 mg 09/06/16 10:00 09/06/16 21:15 Neurontin - PO 100 mg BID [facility] Administration Dextrose/Sodium Chloride 1,000 mls @ 75 mls/hr 09/06/16 01:30 09/06/16 02:00 D5-1/2ns - IV 75 mls/hr ASDIR [facility] Administration Insulin Aspart 1 vial 09/06/16 07:00 09/07/16 06:19 Novolog Vial Sliding Scale - SQ 4 units ACHS [facility] Administration Protocol Lorazepam 0.5 mg 09/06/16 22:00 09/06/16 21:14 Ativan - PO 0.5 mg HS [facility] Administration Oxycodone HCl 5 mg 09/06/16 01:32 09/06/16 21:24 Roxicodone - PO 5 mg Q6H PRN Administration PAIN Rivaroxaban 15 mg 09/06/16 10:00 09/06/16 13:26 Xarelto - PO 15 mg DAILY [facility] Administration Senna 2 tab 09/06/16 10:00 09/06/16 13:07 Senna - PO 2 tab DAILY [facility] Administration Tamsulosin HCl 0.4 mg 09/06/16 08:30 09/06/16 13:26 Flomax - PO 0.4 mg DAILY@0830 [facility] Administration Torsemide 100 mg 09/06/16 06:00 09/07/16 06:19 Demadex - PO 100 mg BIDLASIX [facility] Administration ASSESSMENT/PLAN: . Abdominal pain,not typical of biliary colic or PUD improving 1. Ranitidine 150mg dly Problem List - Problems (1) RUQ pain Assessment/Plan: Improved non specific RUQ pain 1.Outpatient AFP/Abd USS 6 monthly after discharge 2. Ranitidine 150 mg dly Code(s): R10.11 - RIGHT UPPER QUADRANT PAIN Visit type - Emergency Visit Emergency Visit: No - New Patient This patient is new to me today: No - Critical Care Critical Care patient: No - Discharge Referral [facility]erred to [facility] No
[2016-09-07 08:59] LABS: ANION GAP 7 (8-16); BILIRUBIN,TOTAL 0.9 mg/dL (0.2-1.0); CALCIUM 8.3 mg/dL (8.5-10.1); CO2 34 mmol/L (21-32); CREATININE 1.4 mg/dL (0.7-1.3); GLUCOSE,RANDOM 206 mg/dL (74-106); SGOT/AST 24 U/L (15-37); SGPT/ALT 13 U/L (12-78); TOT PROT 7.1 g/dl (6.4-8.2)
[2016-09-07 09:00] LABS: ALK PHOS 327 U/L (45-117)
--- NOTE | 2016-09-07 09:52 | CON.PULM ---
Consult Consult Specialty:: PULM/CCM Referred by:: JAY Reason for Consultation:: Abnormal CXR - History of Present Illness Chief Complaint: RUQ pain History of Present Illness: 61 M, known to our service from multiple prior admissions. Known history of NIRANJAN lung CA (details of cell type and staging is unclear). Patient is currently receiving intermittent Radiation Therapy (managed by Dr Huynh). His last session was about 8 weeks ago and he is scheduled for a follow up in the next several weeks. He has followed with Dr Castillo, but has not followed with him recently. The patient reports RUL pain that radiate into his rib cage and his right scapula. No SOB or CP. No significant cough or sputum production. No night sweats or hemoptysis. CXR : lateral opacification of the NIRANJAN. 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 ) Cardio/Vascular: Yes: CAD, CHF (s/p defibrillator for cardiac arrest and low LVEF), Deep Vein Thrombosis, HTN, Hyperlipdemia, [place], Mitral Insufficiency, Other (Ischemic cardiomyopathy, s/p CABG) Pulmonary: Yes: Cancer (Left lung, undocumented cell type ), COPD Gastrointestinal: Yes: Ascites Hepatobiliary: Yes: Cirrhosis, Cholelithiasis, Hepatitis B (Hepatitis B surface antibody + / core antibody / surface antigen negative + 08/28), Other (Ascites suspected cardiogenic treated for perotinitis 05/29) Renal/: Yes: Renal Inusuff, BPH, UTI, Other (Has an enlarged prostate) Infectious Disease: Yes: Other (Chronic lower extremity bilateral cellulitis ) Rheumatology: Yes: Gout, Other (left rotator cuff tear) ENT: Yes: Other (Use a hearing aid in the left ear that uis currently low in battery) Endocrine: Yes: Diabetes Mellitus Additional Medical History: Has poor vision in both eyes, worse on the right eye - Past Surgical History Past Surgical History: Yes: AICD, CABG, Joint Replacement (Had left shoulder surgery) - Alcohol/Substance Use Hx Alcohol Use: No History of Substance Use: reports: None - Smoking History Smoking history: Current every day smoker Have you smoked in the past 12 months: Yes Aproximately how many cigarettes per day: 3 If you are a former smoker, when did you quit?: 2008 - Social History Usual Living Arrangement: With Spouse ADL: Independent 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, 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 Travel: No Home Medications - Allergies Allergies/Adverse Reactions: Allergies Allergy/AdvReac Type Severity Reaction Status Date / Time Iodinated Contrast Media - Allergy Verified 09/05/16 14:27 Oral and [Iodinated Contrast Media - IV Dye] raw fruits/vegetables Allergy Intermediate Rash Uncoded 09/05/16 14:27 iv contrast dye Allergy Uncoded 09/05/16 14:27 - Home Medications Home Medications: Ambulatory Orders Allopurinol [Zyloprim -] 100 mg PO BID 09/05/16 Amoxicillin - [Amoxicillin 500mg Capsule -] 500 mg PO DAILY 09/05/16 Atorvastatin Calcium 40 mg PO HS 09/05/16 Calcium Carbonate 600 mg PO DAILY 09/05/16 Carvedilol 6.25 mg PO BID 09/05/16 Cholecalciferol (Vitamin D3) [Cholecalciferol] 1,000 unit MC DAILY 09/05/16 Colchicine 0.6 mg PO DAILY 09/05/16 Docusate Sodium 100 mg PO TID 09/05/16 Famotidine/Ca Carb/Mag Hydrox [Pepcid Complete Tablet Chew] 1 each PO DAILY Gabapentin [Neurontin -] 100 mg PO BID 09/05/16 Insulin Degludec [Tresiba Flextouch U-100] 70 unit SQ HS 09/05/16 Insulin Regular, Human [Humulin R U-500 Kwikpen] 30 unit SQ DAILY 09/05/16 Liraglutide [Victoza -] 1.8 mg SQ DAILY@0700 09/05/16 Lorazepam 0.5 mg PO HS 09/05/16 Nystatin Powder [Nystop Topical Powder -] 1 applic TP DAILY 09/05/16 Oxycodone HCl/Acetaminophen [Percocet 5-325 mg Tablet] 1 tab PO Q6H 09/05/16 Rivaroxaban [Xarelto -] 15 mg PO DAILY 09/05/16 Sennosides [Senno] 2 tab PO DAILY 09/05/16 Tamsulosin HCl 0.4 mg PO DAILY 09/05/16 Torsemide 100 mg PO BID 09/05/16 Family Disease History - Family Disease History Family Disease History: CA: Father (bilateral kidney cancers), Mother (skin cancer), Other: Father, Mother, Brother, Sister Other Family History: No family history of colorectal cancer or Liver disease Review of Systems - Review of Systems Constitutional: reports: Loss of Appetite, Weakness. denies: Chills, Fever, Night Sweats Eyes: reports: No Symptoms HENT: reports: No Symptoms Neck: reports: No Symptoms Cardiovascular: denies: Edema, Palpitations, Shortness of Breath Respiratory: denies: Cough, Hemoptysis, SOB, SOB on Exertion, Wheezing Gastrointestinal: reports: Abdominal Pain, Indigestion. denies: Diarrhea, Melena, Rectal Bleeding, Vomiting, Vomiting Blood Genitourinary: reports: No Symptoms Breasts: reports: No Symptoms Reported Musculoskeletal: reports: No Symptoms Integumentary: reports: No Symptoms Neurological: reports: No Symptoms Endocrine: reports: No Symptoms Hematology/Lymphatic: reports: No Symptoms Psychiatric: reports: No Symptoms Physical Exam Vital Sings: Vital Signs Temperature 98 F 09/07/16 06:00 Pulse Rate 86 09/07/16 06:00 Respiratory Rate 20 09/07/16 06:00 Blood Pressure 138/70 09/07/16 06:00 O2 Sat by Pulse Oximetry (%) 97 09/05/16 20:44 Constitutional: Yes: No Distress Eyes: Yes: Conjunctiva Clear, EOM Intact HENT: Yes: Atraumatic, Normocephalic Neck: Yes: Supple, Trachea Midline Cardiovascular: Yes: Regular Rate and Rhythm Respiratory: Yes: CTA Bilaterally ...Inspection: Yes: Surgical Scar ...Clubbing: No Gastrointestinal: Yes: Normal Bowel Sounds, Soft, Abdomen, Obese Renal/: Yes: WNL Musculoskeletal: Yes: WNL Extremities: Yes: WNL Edema: No Peripheral Pulses WNL: Yes Integumentary: Yes: Pressure Ulcer Neurological: Yes: WNL, Alert, Oriented ...Motor Strength: WNL Psychiatric: Yes: WNL, Alert, Oriented Labs: CBC, BMP 09/07/16 06:00 09/07/16 06:00 Imaging - Results Chest X-ray: Report Reviewed, Image Reviewed Problem List - Problems (1) Biliary colic Code(s): K80.50 - CALCULUS OF BILE DUCT W/O CHOLANGITIS OR CHOLECYST W/O OBST (2) Morbid obesity Code(s): E66.01 - MORBID (SEVERE) OBESITY DUE TO EXCESS CALORIES (3) RUQ pain Code(s): R10.11 - RIGHT UPPER QUADRANT PAIN (4) Diabetes mellitus Code(s): E11.9 - TYPE 2 DIABETES MELLITUS WITHOUT COMPLICATIONS Qualifiers: Diabetes mellitus type: type 1 Diabetes mellitus complication status: with hyperglycemia Qualified Code(s): E10.65 - Type 1 diabetes mellitus with hyperglycemia (5) Gallstone Code(s): K80.20 - CALCULUS OF GALLBLADDER W/O CHOLECYSTITIS W/O OBSTRUCTION Qualifiers: Cholecystitis presence: without cholecystitis Biliary obstruction: without biliary obstruction Qualified Code(s): K80.20 - Calculus of gallbladder without cholecystitis without obstruction (6) COPD (chronic obstructive pulmonary disease) Code(s): J44.9 - CHRONIC OBSTRUCTIVE PULMONARY DISEASE, UNSPECIFIED Qualifiers : COPD type: chronic bronchitis (7) Diabetes 1.5, managed as type 1 Code(s): E13.9 - OTHER SPECIFIED DIABETES MELLITUS WITHOUT COMPLICATIONS (8) Hx of CABG Code(s): Z95.1 - PRESENCE OF AORTOCORONARY BYPASS GRAFT (9) Ischemic cardiomyopathy Code(s): I25.5 - ISCHEMIC CARDIOMYOPATHY (10) LV dysfunction Code(s): I51.9 - HEART DISEASE, UNSPECIFIED (11) Single implantable cardioverter-defibrillator (ICD) in situ Code(s): Z95.810 - PRESENCE OF AUTOMATIC (IMPLANTABLE) CARDIAC DEFIBRILLATOR (12) ASHD (arteriosclerotic heart disease) Code(s): I25.10 - ATHSCL HEART DISEASE OF [place] CORONARY ARTERY W/O ANG PCTRS (13) CHF (congestive heart failure) Code(s): I50.9 - HEART FAILURE, UNSPECIFIED Qualifiers: Congestive heart failure type: systolic Congestive heart failure chronicity: acute on chronic Qualified Code(s): I50.23 - Acute on chronic systolic (congestive) heart failure (14) CKD (chronic kidney disease) Code(s): N18.9 - CHRONIC KIDNEY DISEASE, UNSPECIFIED Qualifiers: Chronic kidney disease stage: stage 3 (moderate) Qualified Code(s): N18.3 - Chronic kidney disease, stage 3 (moderate) (15) Obstructive sleep apnea of adult Code(s): G47.33 - OBSTRUCTIVE SLEEP APNEA (ADULT) (PEDIATRIC) (16) Atelectasis of left lung Code(s): J98.11 - ATELECTASIS Assessment/Plan Possible NIRANJAN Radiation pneumonitis -> At present asymptomatic -> do not suspect PNA or active infection Right sided rib pain most likely due to biliary process. Patient has a follow up with Radiation Oncology. If persistent rib pain -> bone scan Patient was also advised to follow up with Dr Castillo since he has not done so recently No smoking Ambulate/Incentive Spirometry O2 as needed BD TX PRN Will follow Thank you. Dr Milian
[2016-09-07] MEDS: ALLOPURINOL 100 MG TABLET (FP) PO SCH ×2 (10:25→21:01)
[2016-09-07] MEDS: CARVEDILOL 6.25 MG TABLET (FP) PO SCH ×2 (10:25→21:01)
[2016-09-07] MEDS: TAMSULOSIN HCL 0.4 MG CAP.ER.24H (FP) PO SCH (10:25)
[2016-09-07] MEDS: GABAPENTIN 100 MG CAPSULE (FP) PO SCH ×2 (10:25→21:02)
[2016-09-07] MEDS: RANITIDINE HCL 150 MG TABLET (FP) PO SCH (10:25)
[2016-09-07] MEDS: RIVAROXABAN 15 MG TABLET PO SCH (10:25)
[2016-09-07] MEDS: SENNOSIDES 8.6MG TABLET (FP) PO SCH (10:26)
[2016-09-07] MEDS ORDERED: INSULIN (NOVOLOG) ASPART 100 UNITS/ML 10ML VIAL ONE (12:38)
[2016-09-07] MEDS: DEXTROSE 5%-0.45% SALINE 1,000 ML IV SCH (12:40)
--- NOTE | 2016-09-07 14:05 | PN ---
GI Progress Note Subjective: States that right flank/back pain much improved. Seemed focused on his issues with the care at [facility] - Objective Vital Signs: Vital Signs Temperature 98 F 09/07/16 06:00 Pulse Rate 86 09/07/16 06:00 Respiratory Rate 20 09/07/16 06:00 Blood Pressure 138/70 09/07/16 06:00 O2 Sat by Pulse Oximetry (%) 97 09/05/16 20:44 Constitutional: Calm Eyes: No: Sclera Icterus Cardiovascular: Yes: Regular Rate and Rhythm Gastrointestinal Inspection: No: Distention ...Auscultate: Yes: Normoactive Bowel Sounds ...Palpate: No: Tenderness Labs: CBC, BMP 09/07/16 06:00 09/07/16 06:00 INR, PTT INR 1.79 (0.82-1.09) H 09/05/16 16:14 Problem List - Problems (1) RUQ pain Assessment/Plan: Right flank / back pain improved Doubt biliary colic / PUD. ? alternate pathology such as musculoskeletal / neurogenic. Work-up of alternate etiologies per PMD recall as needed Code(s): R10.11 - RIGHT UPPER QUADRANT PAIN
--- NOTE | 2016-09-07 14:31 | PN ---
Progress Note (short form) - Note Progress Note: feels much better much less discomfort voiding freely Vital Signs Period Temp Pulse Resp BP Sys/Mcconnell Pulse Ox Last 24 Hr 98 F-98.3 F 83-88 18-20 113-138/62-86 cor-rrr lungs clear abd soft,nt ext no edema CBC, BMP 09/07/16 06:00 09/07/16 06:00 a/p doing well unclear as to etiology of pain which appears to be resolving would complete treatment for prostatitis with po amox as previously outlined can d/c picc line please call back if needed
[2016-09-07] MEDS: oxyCODONE HCL 5 MG TABLET PO PRN (20:52)
[2016-09-07] MEDS: ATORVASTATIN CA 40 MG TABLET (FP) PO SCH (21:02)
[2016-09-07] MEDS: LORazepam 0.5 MG TABLET PO SCH (21:04)
--- NOTE | 2016-09-07 22:30 | PN ---
Progress Note, Physician - Current Medication List Current Medications: Active Medications Acetaminophen (Tylenol -) 325 mg PO Q6H PRN PRN Reason: PAIN Last Admin: 09/06/16 21:25 Dose: 325 mg Allopurinol (Zyloprim -) 100 mg PO BID [facility] Last Admin: 09/07/16 21:01 Dose: 100 mg Amoxicillin (Amoxicillin -) 500 mg PO TID [facility] Last Admin: 09/07/16 21:01 Dose: 500 mg Atorvastatin Calcium (Lipitor -) 40 mg PO HS [facility] Last Admin: 09/07/16 21:02 Dose: 40 mg Carvedilol (Coreg -) 6.25 mg PO BID [facility] Last Admin: 09/07/16 21:01 Dose: 6.25 mg Docusate Sodium (Colace -) 100 mg PO TID [facility] Last Admin: 09/07/16 21:01 Dose: 100 mg Gabapentin (Neurontin -) 100 mg PO BID [facility] Last Admin: 09/07/16 21:02 Dose: 100 mg Dextrose/Sodium Chloride (D5-1/2ns -) 1,000 mls @ 75 mls/hr IV ASDIR [facility] Last Admin: 09/07/16 12:40 Dose: Not Given Insulin Aspart (Novolog Vial Sliding Scale -) 1 vial SQ ACHS [facility] PRN Reason: Protocol Last Admin: 09/07/16 21:04 Dose: 6 units Lorazepam (Ativan -) 0.5 mg [address] [facility] Last Admin: 09/07/16 21:04 Dose: 0.5 mg Oxycodone HCl (Roxicodone -) 5 mg PO Q6H PRN PRN Reason: PAIN Last Admin: 09/07/16 20:52 Dose: 5 mg Ranitidine HCl (Zantac -) 150 mg PO DAILY [facility] Last Admin: 09/07/16 10:25 Dose: 150 mg Rivaroxaban (Xarelto -) 15 mg PO DAILY [facility] Last Admin: 09/07/16 10:25 Dose: 15 mg Senna (Senna -) 2 tab PO DAILY [facility] Last Admin: 09/07/16 10:26 Dose: 2 tab Tamsulosin HCl (Flomax -) 0.4 mg PO DAILY@0830 [facility] Last Admin: 09/07/16 10:25 Dose: 0.4 mg Torsemide (Demadex -) 100 mg PO BIDLASIX [facility] Last Admin: 09/07/16 16:07 Dose: 100 mg - Objective Vital Signs: Vital Signs Temperature 98.2 F 09/07/16 15:15 Pulse Rate 86 09/07/16 06:00 Respiratory Rate 16 09/07/16 15:15 Blood Pressure 117/80 09/07/16 15:15 O2 Sat by Pulse Oximetry (%) 100 09/07/16 09:00 Labs: CBC, BMP 09/07/16 06:00 09/07/16 06:00 INR, PTT INR 1.79 (0.82-1.09) H 09/05/16 16:14
[2016-09-08] MEDS: DEXTROSE 5%-0.45% SALINE 1,000 ML IV SCH (04:23)
[2016-09-08] MEDS: ACETAMINOPHEN 325 MG TABLET (FP) PO PRN ×2 (04:47→16:23)
[2016-09-08] MEDS: oxyCODONE HCL 5 MG TABLET PO PRN (04:47)
[2016-09-08] MEDS ORDERED: PT OWN MED DRAWER 7, Y5N ONE ×3 (05:14→15:16)
[2016-09-08] MEDS: TORSEMIDE 100 MG TABLET PO SCH ×2 (05:40→15:21)
[2016-09-08] MEDS: AMOXICILLIN 500 MG CAPSULE (FP) PO SCH ×2 (05:40→15:21)
[2016-09-08] MEDS: DOCUSATE SODIUM 100 MG CAPSULE (FP) PO SCH ×2 (05:41→15:21)
[2016-09-08] MEDS: INSULIN SLIDING SCALE (NOVOLOG) 1 VIAL SQ SCH ×2 (06:08→13:07)
--- NOTE | 2016-09-08 07:49 | PN ---
Progress Note (short form) - Note Progress Note: continues to improve No surgical issues Problem List - Problems (1) RUQ pain Code(s): R10.11 - RIGHT UPPER QUADRANT PAIN
[2016-09-08] MEDS: ALLOPURINOL 100 MG TABLET (FP) PO SCH (10:20)
[2016-09-08] MEDS: RANITIDINE HCL 150 MG TABLET (FP) PO SCH (10:20)
[2016-09-08] MEDS: TAMSULOSIN HCL 0.4 MG CAP.ER.24H (FP) PO SCH (10:20)
[2016-09-08] MEDS: CARVEDILOL 6.25 MG TABLET (FP) PO SCH (10:20)
[2016-09-08] MEDS: GABAPENTIN 100 MG CAPSULE (FP) PO SCH (10:20)
[2016-09-08] MEDS: SENNOSIDES 8.6MG TABLET (FP) PO SCH (10:20)
[2016-09-08] MEDS: RIVAROXABAN 15 MG TABLET PO SCH (11:23)
--- NOTE | 2016-09-08 12:19 | PN ---
Progress Note (short form) - Note Progress Note: PULMONARY WELL KNOWN BY OUR SERVICE OOB TO CHAIR MUCH IMPROVED RUQ PAIN VSS/AFEBRILE ANICTERIC CLEAR LUNG HERNANDEZ S1S2 OBESE SOFT LESS EDEMA/CHRONIC VENOUS STASIS CHANGES LABS/MEDS/NOTES/IMAGING REVIEWED APPEARS STABLE FROM A PULMONARY STANDPOINT AGREE WITH DISCHARGE PLANNING WILL FOLLOW WITH US AN OUTPATIENT Mak AGUSTIN MD
[2016-09-08] MEDS ORDERED: INSULIN (NOVOLOG) ASPART 100 UNITS/ML 10ML VIAL ONE (13:06)
[2016-09-08 15:22] VITALS: BP 119/82; PULSE 80; TEMP 98.2
== END 2016-09-08 17:26 | disposition home or self-care (01) ==
LOC: JER 14:16 → JERBED 19:05 → J8W 20:32
PROVIDERS: ADMIT Internal Medicine; ATTEND Internal Medicine
DX: K80.50 Calculus of bile duct without cholangitis or cholecystitis without obstruction (principal); K80.20 Calculus of gallbladder without cholecystitis without obstruction; E11.9 Type 2 diabetes mellitus without complications; J44.9 Chronic obstructive pulmonary disease, unspecified; I25.5 Ischemic cardiomyopathy; R10.11 Right upper quadrant pain; Z79.4 Long term (current) use of insulin; I51.9 Heart disease, unspecified; Z95.1 Presence of aortocoronary bypass graft; Z95.810 Presence of automatic (implantable) cardiac defibrillator; I25.10 Atherosclerotic heart disease of native coronary artery without angina pectoris; N18.3 Chronic kidney disease, stage 3 (moderate); G47.33 Obstructive sleep apnea (adult) (pediatric); J98.11 Atelectasis; F17.200 Nicotine dependence, unspecified, uncomplicated; Z68.35 Body mass index [BMI] 35.0-35.9, adult; E66.01 Morbid (severe) obesity due to excess calories; I50.23 Acute on chronic systolic (congestive) heart failure
CPT/HCPCS: 36415; 71020-TC; 76705-TC; 78226-TC; 80053; 81003; 82550; 83690; 83735; 84484; 85025; 85610; 85730; 87086; 93005; 93010; 99284-25; A9537

== ENCOUNTER → 2016-09-13 | Day surgery (SDC) | payer OTHER | END | disposition home or self-care (01) | LOC: JRADIR 08:45 | PROVIDERS: ATTEND Internal Medicine | PROC: 0JPT0XZ Removal of Tunneled Vascular Access Device from Trunk Subcutaneous Tissue and Fascia, Open Approach (ICD-10-PCS; principal; 2016-09-13) | PROC: 02PA03Z Removal of Infusion Device from Heart, Open Approach (ICD-10-PCS; 2016-09-13) | DX: Z45.2 Encounter for adjustment and management of vascular access device (principal) | CPT/HCPCS: 36589 ==

== ENCOUNTER 2017-01-08 03:33 | Inpatient (IN) | payer OTHER ==
[2017-01-08 04:09] LABS: BASOPHIL 0.3 % (0-2.0); MCH 30.1 pg (25.7-33.7); MCHC 33.7 g/dl (32.0-35.9); MEAN CELL VOLUME 89.3 fl (80-96); MEAN PLT VOLUME 9.1 fl (7.5-11.1); NEUTROPHILS 78.8 % (42.8-82.8); PLATELET COUNT 140 K/MM3 (134-434); WHITE BLOOD COUNT 13.7 K/mm3 (4.0-10.0)
[2017-01-08] MEDS ORDERED: SODIUM CHLORIDE 0.9% 500 ML INFUS.BAG IV ONE (04:27)
--- NOTE | 2017-01-08 04:36 | PDOC ---
History of Present Illness - General History Source: Patient, Spouse () Exam Limitations: No Limitations - History of Present Illness Initial Comments: 01/08/17 04:50 The patient is a 61 year old male with a significant PMH of insulin-dependent diabetes, CHF. COPD (on 2L home O2), HTN, lung CA, hepatitis B, CKD, gout, UTI, and chronic venous stasis changes who presents to the emergency department with generalized malaise and self-reported high blood sugar today. The patients reports that the patient noted his blood sugar was high using a monitor, prompting the patients brother to administer Insulin. The patients reports that the patients blood glucose level dropped into the 400 range, which subsequently dropped to low 200s upon presentation. The patients also reports that the patient has been coughing and intermittently twitching in his arms and legs over the past week. The patient also reports some urinary incontinence when rising to use the bathroom. The patient reports his last BM was loose and liquid-like. The patient denies chest pain, shortness of breath, headache and dizziness. Denies fever, chills, nausea, vomit, and constipation. Denies dysuria, frequency, and hematuria. Allergies: Oral & IV contrast Past surgical history: Artherosclreotic heart surgery. Social history: Former 3 pk./day smoker, now 1-2 cigs/day. No reported alcohol or drug use. PCP: Dr. Sena, Aba Therapist: Dr. Monet, Antique Jewelry Repairer: Dr. Mendez, Finished Goods Inspector: Dr. Castillo, Cardiology: Dr. Pittman <Kvng Givens - Last Filed: 01/08/17 05:07> <Ariela Wolf - Last Filed: 01/08/17 05:45> - General Chief Complaint: Weakness Stated Complaint: WEAK,DIZZINESS Time Seen by Provider: 01/08/17 04:13 Past History <Kvng Givens - Last Filed: 01/08/17 05:07> - Past Medical History Anemia: Yes Asthma: Yes Cancer: Yes (Left upper lung, stage 1) Cardiac Disorders: Yes (CAD,IA,CARDIOMYOPATHY,CARDIAC ARREST POST ICD) CVA: Yes COPD: Yes CHF: Yes Diabetes: Yes GI Disorders: Yes (GERD) Disorders: Yes (STONES HEP) HTN: Yes Hypercholesterolemia: Yes Liver Disease: Yes (Fatty Liver) Psychiatric Problems: Yes (anxiety/depression) - Surgical History Cardiac Surgery: Yes (quad bypass, ppm/defib) Orthopedic Surgery: Yes - Suicide/Smoking/Psychosocial Hx Smoking History: Unknown if ever smoked Have you smoked in the past 12 months: No Number of Cigarettes Smoked Daily: 3 If you are a former smoker, when did you quit?: 2008 Information on smoking cessation initiated: No 'Breaking Loose' booklet given: 08/08/16 Hx Alcohol Use: No Drug/Substance Use Hx: No Substance Use Type: None Hx Substance Use Treatment: No <Ariela Wolf - Last Filed: 01/08/17 05:45> - Past Medical History Allergies/Adverse Reactions: Allergies Allergy/AdvReac Type Severity Reaction Status Date / Time Iodinated Contrast- Oral and Allergy Verified 01/08/17 04:58 IV Dye [Iodinated Contrast Media - IV Dye] raw fruits/vegetables Allergy Intermediate Rash Uncoded 01/08/17 04:58 celery Allergy Uncoded 01/08/17 04:58 iv contrast dye Allergy Uncoded 01/08/17 04:58 melon Allergy Uncoded 01/08/17 04:58 pepper Allergy Uncoded 01/08/17 04:58 raw apples Allergy Uncoded 01/08/17 04:58 raw carrots Allergy Uncoded 01/08/17 04:58 Raw cherries Allergy Uncoded 01/08/17 04:58 Home Medications: Ambulatory Orders Allopurinol [Zyloprim -] 100 mg PO BID 09/05/16 Calcium Carbonate 600 mg PO DAILY 09/05/16 Carvedilol 6.25 mg PO BID 09/05/16 Cholecalciferol (Vitamin D3) [Cholecalciferol] 1,000 unit MC DAILY 09/05/16 Colchicine 0.6 mg PO DAILY 09/05/16 Docusate Sodium 100 mg PO TID 09/05/16 Famotidine/Ca Carb/Mag Hydrox [Pepcid Complete Tablet Chew] 1 each PO DAILY Gabapentin [Neurontin -] 100 mg PO BID 09/05/16 Insulin Regular, Human [Humulin R U-500 Kwikpen] 30 unit SQ DAILY 09/05/16 Liraglutide [Victoza -] 1.8 mg SQ DAILY@0700 09/05/16 Oxycodone HCl/Acetaminophen [Percocet 5-325 mg Tablet] 1 tab PO Q6H 09/05/16 Rivaroxaban [Xarelto -] 15 mg PO DAILY 09/05/16 Sennosides [Senno] 2 tab PO DAILY 09/05/16 Tamsulosin HCl 0.4 mg PO DAILY 09/05/16 Torsemide 100 mg PO BID 09/05/16 Ranitidine [Zantac -] 150 mg PO DAILY #0 tablet 09/08/16 Chantix 1 tab PO BID 12/04/16 Tiotropium [place] [Spiriva] 1 inh PO DAILY 01/08/17 Trazodone HCl [Desyrel -] 100 mg PO HS 01/08/17 Review of Systems - Review of Systems Able to Perform ROS?: Yes Comments:: 01/08/17 04:51 GENERAL/CONSTITUTIONAL: No fever or chills. No weakness. HEAD, EYES, EARS, NOSE AND THROAT: No change in vision. No ear pain or discharge. No sore throat. CARDIOVASCULAR: No chest pain or shortness of breath. RESPIRATORY: (+) Cough. No wheezing or hemoptysis. GASTROINTESTINAL: (+) Diarrhea. No nausea, vomiting, or constipation. GENITOURINARY: (+) Occasional urinary incontinence. No dysuria, frequency. MUSCULOSKELETAL: No joint or muscle swelling or pain. No neck or back pain. SKIN: No rash NEUROLOGIC: (+) Intermittent twitching. No headache, vertigo, loss of consciousness, or change in strength. ENDOCRINE: No increased thirst. No abnormal weight change. HEMATOLOGIC/LYMPHATIC: No anemia, easy bleeding, or history of blood clots. ALLERGIC/IMMUNOLOGIC: No hives or skin allergy. <Kvng Givens - Last Filed: 01/08/17 05:07> *Physical Exam - Vital Signs Last Vital Signs Temp Pulse Resp BP Pulse Ox 97.9 F 95 H 18 110/56 94 L 01/08/17 03:42 01/08/17 03:42 01/08/17 03:42 01/08/17 03:42 01/08/17 03:42 - Physical Exam Comments: 01/08/17 04:51 GENERAL: (+) Obese. Awake, alert, and fully oriented, in no acute distress HEAD: No signs of trauma EYES: PERRLA, EOMI, sclera anicteric, conjunctiva clear ENT: Auricles normal inspection, hearing grossly normal, nares patent, oropharynx clear without exudates. Moist mucosa NECK: Normal ROM, supple, no lymphadenopathy, JVD, or masses LUNGS: Breath sounds equal, clear to auscultation bilaterally. No wheezes, and no crackles HEART: Regular rate and rhythm, normal S1 and S2, no murmurs, rubs or gallops ABDOMEN: Soft, nontender, normoactive bowel sounds. No guarding, no rebound. No masses EXTREMITIES: (+) Bilateral LE dry skin and erythema. (+) Chronic PVD changes. Normal range of motion, no edema. No clubbing or cyanosis. No cords or tenderness NEUROLOGICAL: Cranial nerves II through XII grossly intact. Normal speech. SKIN: Warm, Dry, normal turgor, no rashes or lesions noted. <Kvng Givens - Last Filed: 01/08/17 05:07> - Vital Signs Last Vital Signs Temp Pulse Resp BP Pulse Ox 97.9 F 95 H 18 110/56 94 L 01/08/17 03:42 01/08/17 03:42 01/08/17 03:42 01/08/17 03:42 01/08/17 03:42 <Ariela Wolf - Last Filed: 01/08/17 05:45> Heart Score/ECG Review #1 01/08/17 05:07 Vent rate 80 bpm Normal sinus rhythm Possible left atrial enlargement Right bundle branch block Septal infarct, age undetermined Abnormal ECG <Kvng Givens - Last Filed: 01/08/17 05:07> ED Treatment Course - LABORATORY CBC & Chemistry Diagram: 01/08/17 04:00 01/08/17 04:40 - ADDITIONAL ORDERS Additional order review: 01/08/17 04:00 RBC 4.32 MCV 89.3 MCHC 33.7 RDW 15.0 D MPV 9.1 Neutrophils % 78.8 D Lymphocytes % 5.4 L D Monocytes % 13.5 H Eosinophils % 2.0 D Basophils % 0.3 <Kvng Givens - Last Filed: 01/08/17 05:07> - LABORATORY CBC & Chemistry Diagram: 01/08/17 04:00 01/08/17 04:40 - ADDITIONAL ORDERS Additional order review: 01/08/17 04:00 RBC 4.32 MCV 89.3 MCHC 33.7 RDW 15.0 D MPV 9.1 Neutrophils % 78.8 D Lymphocytes % 5.4 L D Monocytes % 13.5 H Eosinophils % 2.0 D Basophils % 0.3 - RADIOLOGY Radiology Studies Ordered: Category Date Time Status CHEST X-RAY PORTABLE* [RAD] Stat Radiology 01/08/17 04:28 Ordered <Ariela Wolf - Last Filed: 01/08/17 05:45> *DC/Admit/Observation/Transfer - Attestations Scribe Attestion: 01/08/17 04:52 Documentation prepared by Kvng Givens, acting as medical videographer for Ariela Wolf MD. <Kvng Givens - Last Filed: 01/08/17 05:07> - Discharge Dispostion Admit: Yes <Ariela Wolf - Last Filed: 01/08/17 05:45> Diagnosis at time of Disposition: Renal failure, acute, COPD (chronic obstructive pulmonary disease), CHF ( congestive heart failure), Morbid obesity, Hyperglycemia - Discharge Dispostion Condition at time of disposition: Guarded - Referrals Referrals: Medardo Sena PA [Primary Care Provider] - - Patient Instructions - Post Discharge Activity
[2017-01-08 05:26] LABS: ALBUMIN 2.5 g/dl (3.4-5.0); ANION GAP 9 (8-16); BILIRUBIN,TOTAL 1.1 mg/dL (0.2-1.0); CALCIUM 8.5 mg/dL (8.5-10.1); CO2 30 mmol/L (21-32); CREATININE 2.4 mg/dL (0.7-1.3); GLUCOSE,RANDOM 280 mg/dL (74-106); SGOT/AST 17 U/L (15-37); SGPT/ALT 38 U/L (12-78); TOT PROT 6.7 g/dl (6.4-8.2)
[2017-01-08 05:28] LABS: ALK PHOS 350 U/L (45-117); CPK 61 IU/L (39-308); TROPONIN I < 0.02 ng/ml (0.00-0.05)
--- NOTE | 2017-01-08 07:40 | HP ---
CHIEF COMPLAINT: Too weak to walk PCP: Dr. Trujillo, [place] Cardiology: Dr. Pittman Oncology: Dr. Amina Willis HISTORY OF PRESENT ILLNESS: 61 year-old male with a PMH significant for HTN, HLD, idiopathic dilated cardiomyopathy, systolic heart failure s/p PPM/AICD, CAD s/p CABG x4, h/o DVT on Xarelto, COPD on home O2, CKD, IDDM, lung cancer s/p radiation (2017), prostatitis, MRSA abscess left forearm, hepatitis B. Patient brought to ED after not urinating for 2 days. Patient states that yesterday he became too weak to walk and his legs gave out when walking to the bathroom. states, and patient admits, he has not taken insulin "for a long time." Patient states he began having episisodes of "feeling hot" starting yesterday. He denies sweats , chills. He denies nausea and vomiting. He has had several diarrheal movements in past 48 hours but that was after taking milk of magnesia. ER course was notable for: (1) WBC 13.7k, Na 130, BUN/Cr 78/2.4 (baseline Cr 1.3), glucose 230 (2) Cade placed >2L UOP Recent Travel: No PAST MEDICAL HISTORY: Hypertension Hyperlipidemia Idiopathic dilated cardiomyopathy Systolic heart failure Coronary artery disease DVT COPD CKD IDDM Lung cancer Prostatitis PAST SURGICAL HISTORY: PPM/AICD Social History: Smoking: quit 2008 Alcohol: no Drugs: no Family History: Allergies Iodinated Contrast- Oral and IV Dye [Iodinated Contrast Media - IV Dye] Allergy (Verified 01/08/17 04:58) raw fruits/vegetables Allergy (Intermediate, Uncoded 01/08/17 04:58) Rash CARROTS RASH celery Allergy (Uncoded 01/08/17 04:58) iv contrast dye Allergy (Uncoded 01/08/17 04:58) melon Allergy (Uncoded 01/08/17 04:58) pepper Allergy (Uncoded 01/08/17 04:58) raw apples Allergy (Uncoded 01/08/17 04:58) raw carrots Allergy (Uncoded 01/08/17 04:58) Raw cherries Allergy (Uncoded 01/08/17 04:58) Home Medications Medication Instructions Recorded Allopurinol [Zyloprim -] 100 mg PO BID 09/05/16 Calcium Carbonate 600 mg PO DAILY 09/05/16 Carvedilol 6.25 mg PO BID 09/05/16 Cholecalciferol (Vitamin D3) 1,000 unit MC DAILY 09/05/16 [Cholecalciferol] Colchicine 0.6 mg PO DAILY 09/05/16 Docusate Sodium 100 mg PO TID 09/05/16 Famotidine/Ca Carb/Mag Hydrox 1 each PO DAILY 09/05/16 [Pepcid Complete Tablet Chew] Gabapentin [Neurontin -] 100 mg PO BID 09/05/16 Insulin Regular, Human [Humulin R 30 unit SQ DAILY 09/05/16 U-500 Kwikpen] Liraglutide [Victoza -] 1.8 mg SQ DAILY@0700 09/05/16 Oxycodone HCl/Acetaminophen 1 tab PO Q6H 09/05/16 [Percocet 5-325 mg Tablet] Rivaroxaban [Xarelto -] 15 mg PO DAILY 09/05/16 Sennosides [Senno] 2 tab PO DAILY 09/05/16 Tamsulosin HCl 0.4 mg PO DAILY 09/05/16 Torsemide 100 mg PO BID 09/05/16 Ranitidine [Zantac -] 150 mg PO DAILY #0 tablet 09/08/16 Chantix 1 tab PO BID 12/04/16 Tiotropium [place] [Spiriva] 1 inh PO DAILY 01/08/17 Trazodone HCl [Desyrel -] 100 mg PO HS 01/08/17 REVIEW OF SYSTEMS CONSTITUTIONAL: Present: sweats, generalized weakness Absent: chills, diaphoresis, generalized weakness, malaise, loss of appetite, weight change HEENT: Absent: rhinorrhea, nasal congestion, throat pain, throat swelling, difficulty swallowing, mouth swelling, ear pain, eye pain, visual changes CARDIOVASCULAR: Absent: chest pain, syncope, palpitations, irregular heart rate, lightheadedness , peripheral edema RESPIRATORY: Absent: cough, shortness of breath, dyspnea with exertion, orthopnea, wheezing, stridor, hemoptysis GASTROINTESTINAL: Absent: abdominal pain, abdominal distension, nausea, vomiting, diarrhea, constipation, melena, hematochezia GENITOURINARY: Present: anuria x 2 days Absent: dysuria, frequency, urgency, hesitancy, hematuria, flank pain, genital pain MUSCULOSKELETAL: Absent: myalgia, arthralgia, joint swelling, back pain, neck pain SKIN: Absent: rash, itching, pallor HEMATOLOGIC/IMMUNOLOGIC: Absent: easy bleeding, easy bruising, lymphadenopathy, frequent infections ENDOCRINE: Absent: unexplained weight gain, unexplained weight loss, heat intolerance, cold intolerance NEUROLOGIC: Absent: headache, focal weakness or paresthesias, dizziness, unsteady gait, seizure, mental status changes, bladder or bowel incontinence PSYCHIATRIC: Absent: anxiety, depression, suicidal or homicidal ideation, hallucinations. PHYSICAL EXAMINATION Vital Signs - 24 hr 01/08/17 01/08/17 03:42 06:51 Temperature 97.9 F 98.7 F Pulse Rate 95 H Pulse Rate [ 84 Left Radial] Respiratory 18 18 Rate Blood Pressure 110/56 Blood Pressure 99/59 [Left Arm] O2 Sat by Pulse 97 99 Oximetry (%) GENERAL: Awake, alert, and fully oriented, in no acute distress. HEAD: Normal with no signs of trauma. EYES: Pupils equal, round and reactive to light, extraocular movements intact, sclera anicteric, conjunctiva clear. No lid lag. EARS, NOSE, THROAT: Ears normal, nares patent, oropharynx clear without exudates. Moist mucous membranes. NECK: Normal range of motion, supple without lymphadenopathy, JVD, or masses. LUNGS: Crackles 1/[address] up on right HEART: Regular rate and rhythm, normal S1 and S2 without murmur, rub or gallop. ABDOMEN: bladder palpated at level of umbilicus with associated tenderness MUSCULOSKELETAL: Normal range of motion at all joints. No bony deformities or tenderness. No CVA tenderness. UPPER EXTREMITIES: 2+ pulses, warm, well-perfused. No cyanosis. No clubbing. No peripheral edema. LOWER EXTREMITIES: 2+ pulses, warm, well-perfused. No calf tenderness. No peripheral edema. NEUROLOGICAL: Cranial nerves II-XII intact. Normal speech. Normal gait. PSYCHIATRIC: Cooperative. Good eye contact. Appropriate mood and affect. SKIN: Warm, dry, normal turgor, no rashes or lesions noted, normal capillary refill. Laboratory Results - last 24 hr 01/08/17 01/08/17 01/08/17 04:00 04:40 04:40 WBC 13.7 H D RBC 4.32 Hgb 13.0 Hct 38.5 MCV 89.3 MCH 30.1 MCHC 33.7 RDW 15.0 D Plt Count 140 D MPV 9.1 Neutrophils % 78.8 D Lymphocytes % 5.4 L D Monocytes % 13.5 H Eosinophils % 2.0 D Basophils % 0.3 Sodium 130 L Potassium 4.9 D Chloride 91 L Carbon Dioxide 30 Anion Gap 9 BUN 78 H D Creatinine 2.4 H D Creat Clearance w eGFR 27.66 Random Glucose 280 H D Calcium 8.5 Total Bilirubin 1.1 H D AST 17 D ALT 38 D Alkaline Phosphatase 350 H Creatine Kinase 61 Troponin I < 0.02 D B-Natriuretic Peptide 4794.85 H Total Protein 6.7 Albumin 2.5 L ASSESSMENT/PLAN: 61 year-old man with a PMH significant for HTN, HLD, idiopathic dilated cardiomyopathy s/p AICD, systolic heart failure, CAD s/p CABG x 4, h/o DVT on Xarelto, COPD on home O2, CKD, IDDM, lung cancer s/p radiation (2017), prostatitis, MRSA abscess left forearm, hepatitis B. Admitted for acute on chronic kidney injury. Acute on chronic kidney injury Urinary retention BPH --MARCIAL likely secondary to obstructive uropathy; patient with h/o BPH prostatitis and E.coli bacteremia who has heretofore refused urological workup --cade placed and >2L yellow urine output --UA negative --continue tamsulosin --urology consult if patient will allow Chronic systolic heart failure Ischemic dilated cardiomyoathy Pulmonary hypertension --decrease torsemide from BID to QD; hold losartan due to MARCIAL Lung cancer --12/13/16 CT chest: new solid rounded masslike opacity NIRANJAN --completed radiation therapy ~ [address] Willis --Dr. Castillo has been following as outpatient Chronic hypoxemic respiratory failure --likely multifactorial: lung cancer, IDCM, systolic heart failure, COPD --Spiriva --oxygen to maintain O2 94% r/o Pneumonia --01/08 CXR shows infiltrates --per ID, Vanc x 1 dose; ceftriaxone Right pleural effusion of uncertain etiology --pneumonia v. malignancy v. cardiac --consider thoracentesis --pulmonary following CAD s/p CABG --continue carvedilol as tolerated Hypertension --has been hypotensive, decrease torsemide Hyperlipidemia --not on statin, h/o Hep B IDDM --HgbA1C 14.2 --Novolog sliding scale pending endocrine input h/o DVT --on rivaroxaban F/E/N Fluids: PO intake adequate Electrolytes: replete as indicated Nutrition: diabetic low sodium DVT prophylaxis: on rivaroxaban Physical therapy evaluation Daily PT Dispo: continues to require inpatient care. Full code. Visit type - Emergency Visit Emergency Visit: Yes ED Registration Date: 01/08/17 Care time: The patient presented to the Emergency Department on the above date and was hospitalized for further evaluation of their emergent condition. - New Patient This patient is new to me today: Yes Date on this admission: 01/08/17 - Critical Care Critical Care patient: No
[2017-01-08] MEDS ORDERED: INSULIN DETEMIR 100 UNITS/ML MDV SQ SCH ×2 (08:15→19:00)
[2017-01-08] MEDS ORDERED: HEMOQUE TEST 1 EACH EACH ONE (08:22)
[2017-01-08] MEDS ORDERED: PANTOPRAZOLE 40 MG TABLET (FP) ONE (08:46)
[2017-01-08] MEDS ORDERED: INSULIN DETEMIR 100 UNITS/ML MDV SQ ONE (08:47)
[2017-01-08] MEDS: GABAPENTIN 100 MG CAPSULE (FP) PO SCH ×2 (09:04→21:55)
[2017-01-08] MEDS: PANTOPRAZOLE 40 MG TABLET (FP) PO SCH ×2 (09:04→10:08)
[2017-01-08] MEDS: TAMSULOSIN HCL 0.4 MG CAP.ER.24H (FP) PO SCH (09:04)
[2017-01-08] MEDS: RANITIDINE HCL 150 MG TABLET (FP) PO SCH (09:05)
[2017-01-08] MEDS: TIOTROPIUM BROMIDE 18 MCG/INH (DEVICE W/ 5 CAPSULES) IH SCH (09:05)
[2017-01-08] MEDS: RIVAROXABAN 15 MG TABLET PO SCH (09:05)
[2017-01-08] MEDS ORDERED: SENNOSIDES 8.6MG TABLET (FP) PO SCH (10:00)
[2017-01-08] MEDS ORDERED: TORSEMIDE 100 MG TABLET PO SCH (10:00)
[2017-01-08] MEDS: CARVEDILOL 6.25 MG TABLET (FP) PO SCH ×3 (10:08→23:17)
[2017-01-08] MEDS ORDERED: VANCOMYCIN 1,000 MG VIAL (RESTRICTED TO ID ONLY) IVPB ONE (11:16)
--- NOTE | 2017-01-08 11:20 | PN ---
Progress Note (short form) - Note Progress Note: ID consult dictated d/w Hospitalist 61 year old man with poorly controlled DM, cardiomyopathy with AICD, lung cancer s/p RT admitted with weakness and hyperglycemia upon further discussion he admitted to not urinating for last day or two no fevers past history of ecoli bacteremia secondary to UTI/presumed prostatitis, MRSA left forearm abscess PE notable for palpable bladder, crackles right base labs notable for leukocytosis, MARCIAL, hyperglycemia cxray with right pleural effusion, cardiomegaly , ?NIRANJAN mass plan leukocytosis-?UTI, ?pneumonia urinary retention new right pleural effusion-?CHF aleman culture, vanco/rocephin mrsa [id number]-[id number]-pheqa culture for MRSA ?tap right effusion- pulmonary to see urology consult (patient has refused in the past) further reccd to follow Problem List - Problems (1) Leukocytosis Code(s): D72.829 - ELEVATED WHITE BLOOD CELL COUNT, UNSPECIFIED (2) Acute urinary retention Code(s): R33.8 - OTHER RETENTION OF URINE (3) Pleural effusion, right Code(s): J90 - PLEURAL EFFUSION, NOT ELSEWHERE CLASSIFIED (4) MRSA (methicillin resistant Staphylococcus aureus) colonization Code(s): Z22.322 - CARRIER OR SUSPECTED CARRIER OF METHICILLIN RESIS STAPH
[2017-01-08] MEDS ORDERED: cefTRIAXone 2 GM/100 ML BAG (PRE-DOCKED) IVPB SCH (11:30)
[2017-01-08] MEDS ORDERED: VANCOMYCIN 1,250 MG in DEXTROSE 5%-WATER - 250 ML IVPB ONE (11:45)
[2017-01-08 12:11] LABS: URINE APPEARANCE SLCLOUDY; URINE BILIRUBIN NEGATIVE (NEGATIVE); URINE BLOOD NEGATIVE (NEGATIVE); URINE COLOR YELLOW; URINE GLUCOSE (UA) 2+ (NEGATIVE); URINE KETONE NEGATIVE (NEGATIVE); URINE NITRITE NEGATIVE (NEGATIVE); URINE PROTEIN NEGATIVE (NEGATIVE); URINE UROBILINOGEN NEGATIVE mg/dL (0.2-1.0)
[2017-01-08] MEDS ORDERED: INSULIN (NOVOLOG) ASPART 100 UNITS/ML 10ML VIAL ONE ×2 (12:48→13:15)
[2017-01-08 13:05] VITALS: BMI 36.3
[2017-01-08] MEDS: INSULIN (NOVOLOG) ASPART 100 UNITS/ML 10ML VIAL SQ SCH ×3 (13:14→23:39)
--- NOTE | 2017-01-08 13:20 | CON.CARD ---
Consult Consult Specialty:: Cardiology Referred by:: Hospitalist Medicine Reason for Consultation:: Cardiomyopathy - History of Present Illness Chief Complaint: Weakness, fatigue History of Present Illness: Patient is a 61 year old male with underlying history of ischemic cardiomyopathy and hear failure (NYHA classification III -IV), history of CAD post [place], 4 vessel CABG, cardiac arrest s/p ICD, type 2 diabetes mellitus, home O2 dependent COPD, CVA, hepatitis B, gout, CKD and right LE DVT on Xarelto presented with increase weakness and fatigue, found to have leukocytosis, obstructive uropathy, declines urologic intervention. He denies chest pain, dyspnea worse than baseline, palpitations, paroxysmal nocturnal dyspnea or orthopnea. Daniel was placed with > 1 L output, empiric abx was started. 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 ) Cardio/Vascular: Yes: CAD, CHF (s/p defibrillator for cardiac arrest and low LVEF), Deep Vein Thrombosis, HTN, Hyperlipdemia, [place], Mitral Insufficiency, Other (Ischemic cardiomyopathy, s/p CABG) Pulmonary: Yes: Cancer (undocumented cell type), COPD Gastrointestinal: Yes: Ascites Hepatobiliary: Yes: Cirrhosis, Cholelithiasis, Hepatitis B, Other Renal/: Yes: Renal Inusuff, BPH, UTI, Other Infectious Disease: Yes: Other (Chronic lower extremity bilateral cellulitis ) Rheumatology: Yes: Gout, Other (left rotator cuff tear) ENT: Yes: Other (Use a hearing aid in the left ear that uis currently low in battery) Endocrine: Yes: Diabetes Mellitus Additional Medical History: Has poor vision in both eyes, worse on the right eye - Past Surgical History Past Surgical History: Yes: AICD, CABG, Joint Replacement - Alcohol/Substance Use Hx Alcohol Use: No History of Substance Use: reports: None - Smoking History Smoking history: Current some day smoker Have you smoked in the past 12 months: No Aproximately how many cigarettes per day: 3 If you are a former smoker, when did you quit?: 2008 - Social History Usual Living Arrangement: With Spouse ADL: Independent 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, 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 Travel: No Home Medications - Allergies Allergies/Adverse Reactions: Allergies Allergy/AdvReac Type Severity Reaction Status Date / Time Iodinated Contrast- Oral and Allergy Verified 01/08/17 04:58 IV Dye [Iodinated Contrast Media - IV Dye] raw fruits/vegetables Allergy Intermediate Rash Uncoded 01/08/17 04:58 celery Allergy Uncoded 01/08/17 04:58 iv contrast dye Allergy Uncoded 01/08/17 04:58 melon Allergy Uncoded 01/08/17 04:58 pepper Allergy Uncoded 01/08/17 04:58 raw apples Allergy Uncoded 01/08/17 04:58 raw carrots Allergy Uncoded 01/08/17 04:58 Raw cherries Allergy Uncoded 01/08/17 04:58 - Home Medications Home Medications: Ambulatory Orders Allopurinol [Zyloprim -] 100 mg PO BID 09/05/16 Calcium Carbonate 600 mg PO DAILY 09/05/16 Carvedilol 6.25 mg PO BID 09/05/16 Cholecalciferol (Vitamin D3) [Cholecalciferol] 1,000 unit MC DAILY 09/05/16 Colchicine 0.6 mg PO DAILY 09/05/16 Docusate Sodium 100 mg PO TID 09/05/16 Famotidine/Ca Carb/Mag Hydrox [Pepcid Complete Tablet Chew] 1 each PO DAILY Gabapentin [Neurontin -] 100 mg PO BID 09/05/16 Insulin Regular, Human [Humulin R U-500 Kwikpen] 30 unit SQ DAILY 09/05/16 Liraglutide [Victoza -] 1.8 mg SQ DAILY@0700 09/05/16 Oxycodone HCl/Acetaminophen [Percocet 5-325 mg Tablet] 1 tab PO Q6H 09/05/16 Rivaroxaban [Xarelto -] 15 mg PO DAILY 09/05/16 Sennosides [Senno] 2 tab PO DAILY 09/05/16 Tamsulosin HCl 0.4 mg PO DAILY 09/05/16 Torsemide 100 mg PO BID 09/05/16 Ranitidine [Zantac -] 150 mg PO DAILY #0 tablet 09/08/16 Chantix 1 tab PO BID 12/04/16 Tiotropium [place] [Spiriva] 1 inh PO DAILY 01/08/17 Trazodone HCl [Desyrel -] 100 mg PO HS 01/08/17 Family Disease History - Family Disease History Family Disease History: CA: Father (bilateral kidney cancers), Mother (skin cancer), Other: Father, Mother, Brother, Sister Review of Systems - Review of Systems Constitutional: reports: Lethargy, Weakness Vital Signs: Vital Signs Temperature 98.2 F 01/08/17 12:30 Pulse Rate 90 01/08/17 12:38 Respiratory Rate 20 01/08/17 12:38 Blood Pressure 97/55 01/08/17 12:38 O2 Sat by Pulse Oximetry (%) 97 01/08/17 11:15 Constitutional: Yes: No Distress, Calm Neck: Yes: Supple Respiratory: Yes: Regular, Diminished, On Nasal O2 Gastrointestinal: Yes: Normal Bowel Sounds, Soft, Abdomen, Obese Cardiovascular: Yes: Pulse Irregular JVD: No Carotid Bruit: No Heart Sounds: Yes: S1, S2 Murmur: Yes: Systolic Murmur, Grade 2 Edema: Yes Edema: LLE: Trace, RLE: Trace - Other Data Labs, Other Data: CBC, BMP 01/08/17 04:00 01/08/17 12:00 Troponin, BNP 01/08/17 01/08/17 04:40 04:40 Troponin I < 0.02 D B-Natriuretic Peptide 4794.85 H Troponin, BNP 01/08/17 01/08/17 04:40 04:40 Troponin I < 0.02 D B-Natriuretic Peptide 4794.85 H Prior Cardiac Procedures: CABG Ejection Fraction %: LVEF < 40 % Imaging - Results Chest X-ray: Report Reviewed (Right effusion) Problem List - Problems (1) Acute urinary retention Code(s): R33.8 - OTHER RETENTION OF URINE (2) COPD (chronic obstructive pulmonary disease) Code(s): J44.9 - CHRONIC OBSTRUCTIVE PULMONARY DISEASE, UNSPECIFIED Qualifiers: COPD type: chronic bronchitis Chronic bronchitis type: unspecified Qualified Code(s): J42 - Unspecified chronic bronchitis (3) Hyperglycemia Code(s): R73.9 - HYPERGLYCEMIA, UNSPECIFIED (4) Leukocytosis Code(s): D72.829 - ELEVATED WHITE BLOOD CELL COUNT, UNSPECIFIED (5) Morbid obesity Code(s): E66.01 - MORBID (SEVERE) OBESITY DUE TO EXCESS CALORIES (6) Pleural effusion, right Code(s): J90 - PLEURAL EFFUSION, NOT ELSEWHERE CLASSIFIED (7) Renal failure, acute Code(s): N17.9 - ACUTE KIDNEY FAILURE, UNSPECIFIED Qualifiers: Acute renal failure type: unspecified Qualified Code(s): N17.9 - Acute kidney failure, unspecified (8) Acute on chronic systolic and diastolic heart failure, NYHA class 4 Code(s): I50.43 - ACUTE ON CHRONIC COMBINED SYSTOLIC AND DIASTOLIC HRT FAIL (9) Hx of CABG Code(s): Z95.1 - PRESENCE OF AORTOCORONARY BYPASS GRAFT (10) Ischemic cardiomyopathy Code(s): I25.5 - ISCHEMIC CARDIOMYOPATHY (11) LV dysfunction Code(s): I51.9 - HEART DISEASE, UNSPECIFIED (12) Lung nodule Code(s): R91.1 - SOLITARY PULMONARY NODULE (13) Poor compliance Code(s): Z91.19 - PATIENT'S NONCOMPLIANCE W OTH MEDICAL TREATMENT AND REGIMEN (14) S/P CABG (coronary artery bypass graft) Code(s): Z95.1 - PRESENCE OF AORTOCORONARY BYPASS GRAFT (15) Severe left ventricular systolic dysfunction Code(s): I51.9 - HEART DISEASE, UNSPECIFIED (16) Single implantable cardioverter-defibrillator (ICD) in situ Code(s): Z95.810 - PRESENCE OF AUTOMATIC (IMPLANTABLE) CARDIAC DEFIBRILLATOR (17) Type 2 diabetes mellitus with mild nonproliferative diabetic retinopathy without macular edema Code(s): E11.329 - TYPE 2 DIAB W MILD NONPRLF DIABETIC RTNOP W/O * DO NOT USE * Qualifiers: 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 (18) CKD (chronic kidney disease) Code(s): N18.9 - CHRONIC KIDNEY DISEASE, UNSPECIFIED Qualifiers: Chronic kidney disease stage: stage 3 (moderate) Qualified Code(s): N18.3 - Chronic kidney disease, stage 3 (moderate) (19) Diabetes mellitus, insulin dependent (IDDM), uncontrolled Code(s): E10.65 - TYPE 1 DIABETES MELLITUS WITH HYPERGLYCEMIA Qualifiers: Diabetes mellitus complication detail: with polyneuropathy (20) Obstructive sleep apnea of adult Code(s): G47.33 - OBSTRUCTIVE SLEEP APNEA (ADULT) (PEDIATRIC) (21) Bladder outlet obstruction Code(s): N32.0 - BLADDER-NECK OBSTRUCTION (22) Obstructive uropathy Code(s): N13.9 - OBSTRUCTIVE AND REFLUX UROPATHY, UNSPECIFIED (23) Deep venous thrombosis Code(s): I82.409 - ACUTE EMBOLISM AND THOMBOS UNSP DEEP VN UNSP LOWER EXTREMITY Qualifiers: DVT location: lower extremity Affected thrombotic vein of extremity: unspecified vein of extremity Chronicity: acute Laterality: right Qualified Code(s): I82.401 - Acute embolism and thrombosis of unspecified deep veins of right lower extremity (24) Hyponatremia Code(s): E87.1 - HYPO-OSMOLALITY AND HYPONATREMIA (25) Anticoagulant long-term use Code(s): Z79.01 - CUSTODIAL (CURRENT) USE OF 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 Assessment/Plan 08/14/2016 Echo: Severely decreased LV fxn, mod-severe decrease RV fxn, Tr-mild MR , tr TR 1. Chronic LV systolic failure with NYHA classification 3-4 heart failure with ischemic cardiomyopathy with pulm HTN and pleural effusion 2. Bladder outlet obstruction and leukocytosis with h/o ecoli bacteremia secondary to UTI/presumed prostatitis, MRSA left forearm abscess 3. CAD S/P CABG, angina pectoris 4. History of cardiac arrest S/P ICD 5. Chronic hypoxic respiratory failure with home O2 dependent COPD and pulmonary nodules 6. Type 2 diabetes mellitus - noncompliant 7. CVA 8. Acute on CKD obstructive referable to prostatism (baseline Cr 1.4-1.5) 9. Morbid obesity 10. History of RLE DVT on NOAC 11. Persistent atrial fibrillation on NOAC 12. OSAS noncompliant with cpap 13. NIRANJAN mass 14. Hyponatremia PLAN: 1. Decrease Demadex 100 qd and hold losartan 25 qd pending renal fxn stabilization, monitor electrolytes, replete K, Mg as you are 2. Complete abx course per C&S 3. Continue Carvedilol 6.25 bid, Atorvastatin 40 qhs and decrease Xarelto 15 qPM (renal-dosing) 4. Daniel, flomax, proscar, input if allowed 5. GI prophylaxis, cpap nightly 6. Optimize glycemic control 7. Thank you for consultative opportunity
[2017-01-08] MEDS ORDERED: INSULIN (NOVOLOG) ASPART 100 UNITS/ML 10ML VIAL SQ ONE (13:45)
--- NOTE | 2017-01-08 13:59 | EKG ---
Test Reason : Blood Pressure : / mmHG Vent. Rate : 080 BPM Atrial Rate : 080 BPM P-R Int : 178 ms QRS Dur : 156 ms QT Int : 442 ms P-R-T Axes : 077 153 085 degrees QTc Int : 509 ms NORMAL SINUS RHYTHM POSSIBLE LEFT ATRIAL ENLARGEMENT RIGHT BUNDLE BRANCH BLOCK SEPTAL INFARCT (CITED ON OR BEFORE 05-SEP-2016) ABNORMAL ECG WHEN COMPARED WITH ECG OF 05-SEP-2016 17:02, DE INTERVAL HAS DECREASED Confirmed by SHANNAN WEEMS MD ([id number]) on 01/08/2017 1:58:28 PM Referred By: Confirmed By:SHANNAN WEEMS MD
--- NOTE | 2017-01-08 14:47 | PN ---
Progress Note (short form) - Note Progress Note: PULMONARY CONSULTATION DICTATED 01/08/17 IMP DYSPNEA ACUTE ON CHRONIC CHF R PLEURAL EFFUSION ? CHF,? INFECTIOUS COPD ON HOME O2 CHRONIC HYPOXEMIC RESPIRATORY FAILURE ASHD S/P CABG S/P CARDIAC ARREST S/P ICD OBSTRUCTIVE UROPATHY URINARY RETENTION ACUTE ON CHRONIC KIDNEY DISEASE POORLY CONTROLLED DM LUNG CA S/P RT GOUT OSAS PLAN DIURETICS O2 INHALED BRONCHODILATORS EVAL MONITOR LYTES,RENAL FUNCTION GLYCEMIC CONTROL F/U CHEST X-RAY ANTIBIOTICS PER ID POSSIBLE THORACENTESIS DR BARBOSA Problem List - Problems (1) Lung cancer Code(s): C34.90 - MALIGNANT NEOPLASM OF UNSP PART OF UNSP BRONCHUS OR LUNG (2) Acute urinary retention Code(s): R33.8 - OTHER RETENTION OF URINE (3) Anticoagulant long-term use 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 (4) Bladder outlet obstruction Code(s): N32.0 - BLADDER-NECK OBSTRUCTION (5) COPD (chronic obstructive pulmonary disease) Code(s): J44.9 - CHRONIC OBSTRUCTIVE PULMONARY DISEASE, UNSPECIFIED Qualifiers: COPD type: chronic bronchitis Chronic bronchitis type: unspecified Qualified Code(s): J42 - Unspecified chronic bronchitis (6) Hyperglycemia Code(s): R73.9 - HYPERGLYCEMIA, UNSPECIFIED (7) Leukocytosis Code(s): D72.829 - ELEVATED WHITE BLOOD CELL COUNT, UNSPECIFIED (8) Morbid obesity Code(s): E66.01 - MORBID (SEVERE) OBESITY DUE TO EXCESS CALORIES (9) Obstructive uropathy Code(s): N13.9 - OBSTRUCTIVE AND REFLUX UROPATHY, UNSPECIFIED (10) Pleural effusion, right Code(s): J90 - PLEURAL EFFUSION, NOT ELSEWHERE CLASSIFIED (11) CHF (congestive heart failure) Code(s): I50.9 - HEART FAILURE, UNSPECIFIED Qualifiers: (12) Acute on chronic systolic and diastolic heart failure, NYHA class 4 Code(s): I50.43 - ACUTE ON CHRONIC COMBINED SYSTOLIC AND DIASTOLIC HRT FAIL (13) COPD (chronic obstructive pulmonary disease) case management patient Code(s): [id number] - (14) Dyspnea on exertion Code(s): R06.09 - OTHER FORMS OF DYSPNEA (15) Heart failure, systolic, with acute decompensation Code(s): I50.23 - ACUTE ON CHRONIC SYSTOLIC (CONGESTIVE) HEART FAILURE (16) Hx of CABG Code(s): Z95.1 - PRESENCE OF AORTOCORONARY BYPASS GRAFT (17) Ischemic cardiomyopathy Code(s): I25.5 - ISCHEMIC CARDIOMYOPATHY (18) LV dysfunction Code(s): I51.9 - HEART DISEASE, UNSPECIFIED (19) S/P CABG (coronary artery bypass graft) Code(s): Z95.1 - PRESENCE OF AORTOCORONARY BYPASS GRAFT (20) Single implantable cardioverter-defibrillator (ICD) in situ Code(s): Z95.810 - PRESENCE OF AUTOMATIC (IMPLANTABLE) CARDIAC DEFIBRILLATOR (21) Tobacco abuse Code(s): Z72.0 - TOBACCO USE (22) Obstructive sleep apnea of adult Code(s): G47.33 - OBSTRUCTIVE SLEEP APNEA (ADULT) (PEDIATRIC)
[2017-01-08] MEDS: DOCUSATE SODIUM 100 MG CAPSULE (FP) PO SCH ×2 (15:18→21:55)
[2017-01-08] MEDS: CEFTRIAXONE 2 GM in DEXTROSE 5%-WATER - 100 ML IVPB SCH (15:51)
--- NOTE | 2017-01-08 17:04 | CONS ---
DATE OF CONSULTATION: 01/08/2017 REFERRING PHYSICIAN: Kandi Liao N.P. HISTORY OF PRESENT ILLNESS: The patient is a 61-year-old white male well known to me from previous office visits, as well as hospitalization and past medical history of ischemic cardiomyopathy, heart failure, ASHD status post ME, status post CABG 4 vessels, status post cardiac arrest, status post ICD, type 2 diabetes mellitus, obesity, advanced COPD on home O2, CVA, Hepatitis B, chronic kidney disease, gout, right lower extremity DVT currently maintained on Xarelto, admitted to [facility] on January 08 secondary to a 2-3 day history of generalized weakness and fatigue. He also states he has not been urinating much in the past couple of days. Today he said he walked a short distance, developed severe dyspnea, denied any chest pains or palpitations, denied any nausea or vomiting. EMS was called, and the patient was sent to the emergency department. In the ER, he had a Daniel placed which revealed greater than 1 L output. He was also placed on empiric antibiotic therapy. Of note, patient also has history of lung CA.He was treated with radiation therapy. He underwent a CAT scan of the chest earlier this month which revealed most likely radiation changes in the left upper lobe. Patient x-rays today reveals pulmonary vascular congestion, bilateral pleural effusion right greater than left. He denies any fevers, chills. Denies any hemoptysis. There is no history of recent travel. There is no history of occupational exposures. He has a longstanding history of tobacco use and currently is still smoking a few cigarettes daily. PAST MEDICAL HISTORY: Again includes ischemic cardiomyopathy, LV systolic dysfunction class 3-4, ASHD status post CABG, status post ME, status post cardiac arrest, status post ICD, lung CA status post RT, type 2 diabetes, COPD on home O2, CVA, Hepatitis B and DVT, chronic kidney disease. REVIEW OF SYSTEMS: Positive orthopnea. Positive dyspnea on exertion. No chest pain. No palpitations. Positive weakness. No fever. No chills. No hemoptysis. No abdominal pain. CURRENT MEDICATIONS: Include Flomax, ceftriaxone, Xarelto, Neurontin, Desyrel, Spiriva, Coreg, Colace, senna, Zantac, Novolog, Demadex, and Protonix. PHYSICAL EXAMINATION: General: The patient is a well-developed, well-nourished male, awake, alert, currently in no acute distress. Vital signs: She is currently afebrile. O2 saturation is 95% on O2. Blood pressure is 110/64, respiratory rate 18. HEENT: Head is normocephalic, atraumatic. Neck: Supple. Heart: Regular. S1, S2. Chest: Diminished breath sounds bilaterally. A few bibasilar crackles. Abdomen: Soft. Bowel sounds positive. Extremities: Bilateral lower extremity edema, 1+. LABORATORY: WBC is 13.7, hemoglobin 13, hematocrit 38.5, platelet count 140, 000. Sodium 130, BUN 78, creatinine 2.4, glucose 424. Hemoglobin A1c is 14.2. BNP is 4794. UA is 2+ glucose. There is no evidence of heme and leukocyte esterase is pending. Chest x-ray reveals cardiomegaly with pulmonary vascular congestion, bilateral pleural effusion, likely on the left. IMPRESSION: 1. Dyspnea secondary to acute on chronic congestive hear failure. 2. Right pleural effusion ? Chf, ?Infectious 3. Advanced Copd on home O2 4. Atherosclerotic heart disease status post coronary artery bypass graft, status post myocardial infarction. 5. Hyperglycemia, poorly controlled. 6. Urinary retention. 7. Lung carcinoma status post radiation therapy with most likely post radiation changes. 8. Chronic kidney disease. 9. Urinary retention. PLAN: Diuretics. Supplemental O2. Inhaled bronchodilators. Daily weights. evaluation. Monitor renal function. Glycemic control. Obtain followup chest x -ray, followup CAT scan to further evaluate pleural effusion. Obtain cultures. Antibiotics as per infectious disease. Possible thoracentesis DIONI BARBOSA M.D. [id number] MTDD
[2017-01-08 17:21] LABS: URINE LEUK ESTERASE Negative (NEGATIVE)
--- NOTE | 2017-01-08 18:35 | CONS ---
DATE OF CONSULTATION: DATE OF DICTATION: 01/08/2017 INFECTIOUS DISEASE CONSULTATION REQUESTING PHYSICIAN: Hospitalist Service CONSULTING PHYSICIAN: Rosalia Miller M.D. HISTORY OF PRESENT ILLNESS: This is a 61-year-old man with a past medical history of diabetes, cardiomyopathy. He is status post cardiac arrest with an AICD in place. He has a history of MRSA left forearm abscess as well as an episode of E. coli. In June of 2016, the MRSA abscess as well as an episode of E. coli urosepsis felt to be secondary to prostatitis for which he was treated with IV antibiotics followed by oral antibiotics for a total of 6 weeks. He is now readmitted with complaints of generalized malaise and high sugars. The patient was noted to have a white count of 14,000 and acute renal failure. On further questioning he admits he has not urinated in at least the last 24 to 48 hours. He notes he has had normal bowel movements , he has had no vomiting. The notes he has had some intermittent cough. It is unclear how compliant he is with his insulin, which he appears to be taking intermittently. He has no chest pain. He has no headache. He has no fevers or chills. PAST MEDICAL HISTORY: Notable for anemia, asthma, left lung cancer status post radiation therapy, coronary artery disease with cardiomyopathy status post cardiac arrest with ICD, COPD, CVA, congestive heart failure, diabetes, GERD, fatty liver, anxiety, depression. SURGICAL HISTORY: Notable for 4-vessel CABG, AICD, and a pacemaker. ALLERGIES: He is allergic to CONTRAST DYE and RAW FRUITS AND VEGETABLES. SOCIAL HISTORY: He resides at home with his who is working. He is not working at this time. MEDICATION: Medications at home include Desyrel, furosemide, Spiriva, tamsulosin, senna, Xarelto, Zantac, Percocet, Victoza, insulin, Neurontin, famotidine, colchicine, Colace, vitamin D, Chantix, Coreg, calcium carbonate, and allopurinol. REVIEW OF SYSTEMS: As per HPI. PHYSICAL EXAMINATION: Vital signs: He is afebrile with a temperature of 98.7, pulse of 90, blood pressure 110/64, respiratory rate 20, saturating 97% on 2 L. HEENT: Normocephalic. Eyes are anicteric. He has no conjunctival hemorrhages. Chest: He has crackles at the right lung base a third of the way up. Left lung is clear. Heart: Regular rate and rhythm. Abdomen: Soft. He has palpable bladder up to his umbilicus which is tender and uncomfortable on exam. Extremities: Without edema. He has no open ulcers on his feet. LABORATORY: White count is 13.7, hemoglobin 13, platelets 140, BUN and creatinine are 78 and 2.4 with a hemoglobin A1c of 14.2, alkaline phosphatase is 350. A Daniel catheter was placed which drained a over a liter of urine. Chest x-ray is notable for a new right-sided pleural effusion, cardiomegaly, congestion, and with left upper lobe changes. IMPRESSION: In summary, this is a 61-year-old man with poorly controlled diabetes, cardiomyopathy with automatic implantable cardioverter-defibrillator , lung cancer status post radiation therapy, admitted with weakness and hyperglycemia and urinary retention. Past history of Escherichia coli bacteremia pansensitive, presumed prostatitis and methicillin resistant Staphylococcus aureus left forearm abscess. PLAN: At this point would be to evaluate his leukocytosis with cultures, consideration for possible UTI, possible pneumonia given the urinary retention, UTI certainly a possibility. With new right pleural effusion concerns would include heart failure versus pneumonia with prapneumonic effsuion . Would obtain cultures, treat him with vancomycin and Rocephin, MRSA isolation with nares culture for MRSA. Consider tapping the right effusion. A urology consult if the patient permits; he has refused in the past. Further recommendations to follow. Tobias [id number] MTDD
[2017-01-08] MEDS: INSULIN (NOVOLOG MIX 70/30) 100 UNITS/ML MDV SQ SCH (19:35)
[2017-01-08] MEDS ORDERED: PT OWN MED DRAWER 7, Y5N ONE ×2 (21:33→21:37)
[2017-01-08] MEDS: traZODone HCL 50 MG TABLET (FP) PO SCH (21:55)
[2017-01-08] MEDS ORDERED: traZODone HCL 100 MG TABLET (FP) PO SCH (22:00)
--- NOTE | 2017-01-09 00:37 | CONSULT ---
"Consult Consult Specialty:: endocrine Referred by:: arlin mccrary MD Reason for Consultation:: diabetes mellitus - History of Present Illness Chief Complaint: short of breath and high sugars History of Present Illness: 61 year-old male with a PMH significant for HTN, HLD, idiopathic dilated cardiomyopathy, systolic heart failure s/p PPM/AICD, CAD s/p CABG x4, h/o DVT on Xarelto, COPD on home O2, CKD, IDDM, lung cancer s/p radiation (2017), prostatitis, MRSA abscess left forearm, hepatitis B. 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 ) Cardio/Vascular: Yes: CAD, CHF (s/p defibrillator for cardiac arrest and low LVEF), Deep Vein Thrombosis, HTN, Hyperlipdemia, MT, Mitral Insufficiency, Other (Ischemic cardiomyopathy, s/p CABG) Pulmonary: Yes: Cancer (undocumented cell type), COPD Gastrointestinal: Yes: Ascites Hepatobiliary: Yes: Cirrhosis, Cholelithiasis, Hepatitis B, Other Renal/: Yes: Renal Inusuff, BPH, UTI, Other Infectious Disease: Yes: Other (Chronic lower extremity bilateral cellulitis ) Rheumatology: Yes: Gout, Other (left rotator cuff tear) ENT: Yes: Other (Use a hearing aid in the left ear that uis currently low in battery) Endocrine: Yes: Diabetes Mellitus Additional Medical History: Has poor vision in both eyes, worse on the right eye - Past Surgical History Past Surgical History: Yes: AICD, CABG, Joint Replacement - Alcohol/Substance Use Hx Alcohol Use: No History of Substance Use: reports: None - Smoking History Smoking history: Current some day smoker Have you smoked in the past 12 months: No Aproximately how many cigarettes per day: 3 If you are a former smoker, when did you quit?: 2008 - Social History Usual Living Arrangement: With Spouse ADL: Independent 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, 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 Travel: No Home Medications - Allergies Allergies/Adverse Reactions: Allergies Allergy/AdvReac Type Severity Reaction Status Date / Time Iodinated Contrast- Oral and Allergy Verified 01/08/17 04:58 IV Dye [Iodinated Contrast Media - IV Dye] raw fruits/vegetables Allergy Intermediate Rash Uncoded 01/08/17 04:58 celery Allergy Uncoded 01/08/17 04:58 iv contrast dye Allergy Uncoded 01/08/17 04:58 melon Allergy Uncoded 01/08/17 04:58 pepper Allergy Uncoded 01/08/17 04:58 raw apples Allergy Uncoded 01/08/17 04:58 raw carrots Allergy Uncoded 01/08/17 04:58 Raw cherries Allergy Uncoded 01/08/17 04:58 - Home Medications Home Medications: Ambulatory Orders Allopurinol [Zyloprim -] 100 mg PO BID 09/05/16 Calcium Carbonate 600 mg PO DAILY 09/05/16 Carvedilol 6.25 mg PO BID 09/05/16 Cholecalciferol (Vitamin D3) [Cholecalciferol] 1,000 unit MC DAILY 09/05/16 Colchicine 0.6 mg PO DAILY 09/05/16 Docusate Sodium 100 mg PO TID 09/05/16 Famotidine/Ca Carb/Mag Hydrox [Pepcid Complete Tablet Chew] 1 each PO DAILY Gabapentin [Neurontin -] 100 mg PO BID 09/05/16 Insulin Regular, Human [Humulin R U-500 Kwikpen] 30 unit SQ DAILY 09/05/16 Liraglutide [Victoza -] 1.8 mg SQ DAILY@0700 09/05/16 Oxycodone HCl/Acetaminophen [Percocet 5-325 mg Tablet] 1 tab PO Q6H 09/05/16 Rivaroxaban [Xarelto -] 15 mg PO DAILY 09/05/16 Sennosides [Senno] 2 tab PO DAILY 09/05/16 Tamsulosin HCl 0.4 mg PO DAILY 09/05/16 Torsemide 100 mg PO BID 09/05/16 Ranitidine [Zantac -] 150 mg PO DAILY #0 tablet 09/08/16 Chantix 1 tab PO BID 12/04/16 Tiotropium [place] [Spiriva] 1 inh PO DAILY 01/08/17 Trazodone HCl [Desyrel -] 100 mg PO HS 01/08/17 Family Disease History - Family Disease History Family Disease History: CA: Father (bilateral kidney cancers), Mother (skin cancer), Other: Father, Mother, Brother, Sister Review of Systems - Review of Systems Constitutional: reports: Lethargy, Weakness Eyes: reports: Blurred Vision HENT: reports: No Symptoms Neck: reports: No Symptoms Cardiovascular: reports: Shortness of Breath Respiratory: reports: SOB on Exertion Gastrointestinal: reports: Bloating Genitourinary: reports: No Symptoms Breasts: reports: No Symptoms Reported Musculoskeletal: reports: Back Pain, Joint Swelling, Muscle Pain, Muscle Cramps Integumentary: reports: No Symptoms Neurological: reports: Unsteady Gait, Weakness Endocrine: reports: Increased Hunger, Unexplained Weight Gain Psychiatric: reports: Anxiety Physical Exam Vital Signs: Vital Signs Temperature 98.7 F 01/08/17 18:00 Pulse Rate 82 01/08/17 18:00 Respiratory Rate 18 01/08/17 18:00 Blood Pressure 93/55 01/08/17 18:00 O2 Sat by Pulse Oximetry (%) 97 01/08/17 13:24 Constitutional: Yes: Anxious Eyes: Yes: EOM Intact HENT: Yes: Normocephalic Neck: Yes: Trachea Midline Cardiovascular: Yes: Regular Rate and Rhythm Respiratory: Yes: Tachypnea Gastrointestinal: Yes: Normal Bowel Sounds ...Rectal Exam: Yes: Deferred Renal/: Yes: WNL Extremities: Yes: Erythema Edema: Yes Edema: LLE: 2+, RLE: 2+ Neurological: Yes: Alert, Oriented Labs: CBC, BMP 01/08/17 04:00 01/08/17 12:00 Problem List - Problems (1) Type 2 diabetes mellitus with complications Code(s): E11.8 - TYPE 2 DIABETES MELLITUS WITH UNSPECIFIED COMPLICATIONS (2) Acute urinary retention Code(s): R33.8 - OTHER RETENTION OF URINE (3) Bladder outlet obstruction Code(s): N32.0 - BLADDER-NECK OBSTRUCTION (4) COPD (chronic obstructive pulmonary disease) Code(s): J44.9 - CHRONIC OBSTRUCTIVE PULMONARY DISEASE, UNSPECIFIED Qualifiers: COPD type: chronic bronchitis Chronic bronchitis type: unspecified Qualified Code(s): J42 - Unspecified chronic bronchitis (5) Hyperglycemia Code(s): R73.9 - HYPERGLYCEMIA, UNSPECIFIED (6) Hyponatremia Code(s): E87.1 - HYPO-OSMOLALITY AND HYPONATREMIA (7) Lung cancer Code(s): C34.90 - MALIGNANT NEOPLASM OF UNSP PART OF UNSP BRONCHUS OR LUNG Assessment/Plan Current Active Problems Acute urinary retention (Acute) Anticoagulant long-term use (Acute) Bladder outlet obstruction (Acute) COPD (chronic obstructive pulmonary disease) (Acute) Hyperglycemia (Acute) Hyponatremia (Acute) Leukocytosis (Acute) Lung cancer (Acute) MRSA (methicillin resistant Staphylococcus aureus) colonization (Acute) Morbid obesity (Acute) Obstructive uropathy (Acute) Pleural effusion, right (Acute) Renal failure, acute (Acute) CHF (congestive heart failure) (Chronic) diabetes mellitus hyperglycemia,diabetic nephropathy Abnormal Lab Results 01/08/17 01/08/17 01/08/17 04:00 04:40 04:40 WBC 13.7 H D Lymphocytes % 5.4 L D Monocytes % 13.5 H Sodium 130 L Chloride 91 L BUN 78 H D Creatinine 2.4 H D Random Glucose 280 H D Hemoglobin A1c % Total Bilirubin 1.1 H D Alkaline Phosphatase 350 H B-Natriuretic Peptide 4794.85 H Albumin 2.5 L Urine Glucose (UA) 01/08/17 01/08/17 01/08/17 06:15 11:50 12:00 WBC Lymphocytes % Monocytes % Sodium Chloride BUN Creatinine Random Glucose 486 H* D Hemoglobin A1c % 14.2 H D Total Bilirubin Alkaline Phosphatase B-Natriuretic Peptide Albumin Urine Glucose (UA) 2+ H 01/08/17 12:00 WBC Lymphocytes % Monocytes % Sodium Chloride BUN Creatinine Random Glucose 424 H* Hemoglobin A1c % Total Bilirubin Alkaline Phosphatase B-Natriuretic Peptide Albumin Urine Glucose (UA) Laboratory Results - last 24 hr 01/08/17 01/08/17 01/08/17 04:00 04:40 04:40 WBC 13.7 H D RBC 4.32 Hgb 13.0 Hct 38.5 MCV 89.3 MCH 30.1 MCHC 33.7 RDW 15.0 D Plt Count 140 D MPV 9.1 Neutrophils % 78.8 D Lymphocytes % 5.4 L D Monocytes % 13.5 H Eosinophils % 2.0 D Basophils % 0.3 Sodium 130 L Potassium 4.9 D Chloride 91 L Carbon Dioxide 30 Anion Gap 9 BUN 78 H D Creatinine 2.4 H D Creat Clearance w eGFR 27.66 POC Glucometer Random Glucose 280 H D Hemoglobin A1c % Lactic Acid Calcium 8.5 Total Bilirubin 1.1 H D AST 17 D ALT 38 D Alkaline Phosphatase 350 H Creatine Kinase 61 Troponin I < 0.02 D B-Natriuretic Peptide 4794.85 H Total Protein 6.7 Albumin 2.5 L Urine Color Urine Appearance Urine pH Ur Specific [place] Urine Protein Urine Glucose (UA) Urine Ketones Urine Blood Urine Nitrite Urine Bilirubin Urine Urobilinogen Ur Leukocyte Esterase 01/08/17 01/08/17 01/08/17 06:15 10:48 11:50 WBC RBC Hgb Hct MCV MCH MCHC RDW Plt Count MPV Neutrophils % Lymphocytes % Monocytes % Eosinophils % Basophils % Sodium Potassium Chloride Carbon Dioxide Anion Gap BUN Creatinine Creat Clearance w eGFR POC Glucometer Random Glucose 486 H* D Hemoglobin A1c % 14.2 H D Lactic Acid 1.3 Calcium Total Bilirubin AST ALT Alkaline Phosphatase Creatine Kinase Troponin I B-Natriuretic Peptide Total Protein Albumin Urine Color Urine Appearance Urine pH Ur Specific [place] Urine Protein Urine Glucose (UA) Urine Ketones Urine Blood Urine Nitrite Urine Bilirubin Urine Urobilinogen Ur Leukocyte Esterase 01/08/17 01/08/17 01/08/17 12:00 12:00 21:15 WBC RBC Hgb Hct MCV MCH MCHC RDW Plt Count MPV Neutrophils % Lymphocytes % Monocytes % Eosinophils % Basophils % Sodium Potassium Chloride Carbon Dioxide Anion Gap BUN Creatinine Creat Clearance w eGFR POC Glucometer 416 Random Glucose 424 H* Hemoglobin A1c % Lactic Acid Calcium Total Bilirubin AST ALT Alkaline Phosphatase Creatine Kinase Troponin I B-Natriuretic Peptide Total Protein Albumin Urine Color Yellow Urine Appearance Slcloudy Urine pH 5.0 Ur Specific [place] 1.013 Urine Protein Negative Urine Glucose (UA) 2+ H Urine Ketones Negative Urine Blood Negative Urine Nitrite Negative Urine Bilirubin Negative Urine Urobilinogen Negative Ur Leukocyte Esterase Negative 01/08/17 23:12 WBC RBC Hgb Hct MCV MCH MCHC RDW Plt Count MPV Neutrophils % Lymphocytes % Monocytes % Eosinophils % Basophils % Sodium Potassium Chloride Carbon Dioxide Anion Gap BUN Creatinine Creat Clearance w eGFR POC Glucometer 377 Random Glucose Hemoglobin A1c % Lactic Acid Calcium Total Bilirubin AST ALT Alkaline Phosphatase Creatine Kinase Troponin I B-Natriuretic Peptide Total Protein Albumin Urine Color Urine Appearance Urine pH Ur Specific [place] Urine Protein Urine Glucose (UA) Urine Ketones Urine Blood Urine Nitrite Urine Bilirubin Urine Urobilinogen Ur Leukocyte Esterase plan| Laboratory Tests 06/27/16 06/27/16 06/27/16 06:24 12:07 17:31 POC Glucometer 52 135 211 Random Glucose Hemoglobin A1c % 06/27/16 06/28/16 06/28/16 21:44 06:20 12:33 POC Glucometer 239 68 181 Random Glucose Hemoglobin A1c % 01/08/17 01/08/17 01/08/17 06:15 11:50 12:00 POC Glucometer Random Glucose 486 H* D 424 H* Hemoglobin A1c % 14.2 H D bgm qid novolog insulin doses novolog 70/30 bid 15 units levemir 50 iu bid"
[2017-01-09] MEDS: INSULIN DETEMIR 100 UNITS/ML MDV SQ SCH ×3 (01:41→17:18)
[2017-01-09] MEDS ORDERED: LIDOCAINE HCL 2% JELLY (30 ML/TUBE) TP ONE (04:37)
[2017-01-09] MEDS ORDERED: LORazepam 2 MG/ML SDV VIAL IVPUSH ONE (04:37)
[2017-01-09] MEDS ORDERED: ACETAMINOPHEN 325 MG TABLET (FP) PO ONE (04:39)
[2017-01-09] MEDS: DOCUSATE SODIUM 100 MG CAPSULE (FP) PO SCH ×3 (06:29→21:45)
[2017-01-09] MEDS: INSULIN (NOVOLOG MIX 70/30) 100 UNITS/ML MDV SQ SCH ×2 (06:30→17:18)
[2017-01-09] MEDS: INSULIN (NOVOLOG) ASPART 100 UNITS/ML 10ML VIAL SQ SCH ×2 (06:30→16:12)
[2017-01-09 08:03] LABS: SGOT/AST 23 U/L (15-37)
[2017-01-09 08:08] LABS: ALBUMIN 2.4 g/dl (3.4-5.0); ALK PHOS 365 U/L (45-117); ANION GAP 8 (8-16); BASOPHIL 0.3 % (0-2.0); BILIRUBIN,TOTAL 0.9 mg/dL (0.2-1.0); CALCIUM 8.6 mg/dL (8.5-10.1); CO2 29 mmol/L (21-32); EOSINOPHIL 1.7 % (0-4.5); GLUCOSE,RANDOM 190 mg/dL (74-106); MAGNESIUM 2.7 mg/dL (1.8-2.4); MCHC 33.6 g/dl (32.0-35.9); MEAN CELL VOLUME 89.3 fl (80-96); NEUTROPHILS 84.5 % (42.8-82.8); PHOSPHOROUS 4.2 mg/dL (2.5-4.9); PLATELET COUNT 145 K/MM3 (134-434); RDW 14.6 % (11.9-15.9); SGPT/ALT 35 U/L (12-78); TOT PROT 6.6 g/dl (6.4-8.2); WHITE BLOOD COUNT 15.6 K/mm3 (4.0-10.0)
[2017-01-09 08:23] LABS: INR 1.37 (0.82-1.09); PROTHROMBIN TIME (PATIENT) 15.5 SEC (9.98-11.88)
[2017-01-09 08:26] LABS: ACTIVATED PTT 23.8 SECONDS (26.9-34.4)
--- NOTE | 2017-01-09 08:44 | PN ---
Progress Note (short form) - Note Progress Note: Chief Complaint: Events noted, notes reviewed, complaining of discomfort at the Daniel catheter site, denies any chest pain or dyspnea History of Present Illness: Seen and examined on telemetry. Events noted, notes reviewed, complaining of discomfort at the Daniel catheter site, denies any chest pain or dyspnea Echocardiography 08/14/2016 revealed severe LV systolic dysfunction with global hypokinesia, mild MR, mild TR Medications: Current Medications Carvedilol (Coreg -) 6.25 mg PO BID [facility] Last Admin: 01/08/17 23:17 Dose: Not Given Docusate Sodium (Colace -) 100 mg PO TID [facility] Last Admin: 01/09/17 06:29 Dose: 100 mg Gabapentin (Neurontin -) 100 mg PO BID [facility] Last Admin: 01/08/17 21:55 Dose: 100 mg Ceftriaxone Sodium 2 gm/ (Dextrose) 100 mls @ 200 mls/hr IVPB DAILY [facility] Last Admin: 01/08/17 15:51 Dose: 200 mls/hr Insulin Aspart (Novolog Vial) 0 units SQ ACHS [facility] PRN Reason: Protocol Last Admin: 01/09/17 06:30 Dose: 2 units Insulin Aspart (Novolog Mix 70/30 Vial) 15 units SQ BIDAC [facility] Last Admin: 01/09/17 06:30 Dose: 15 units Insulin Detemir (Levemir Vial) 50 units SQ BID [facility] Last Admin: 01/09/17 01:41 Dose: 50 units Ranitidine HCl (Zantac -) 150 mg PO DAILY [facility] Last Admin: 01/08/17 09:05 Dose: 150 mg Rivaroxaban (Xarelto -) 15 mg PO DAILY [facility] Last Admin: 01/08/17 09:05 Dose: 15 mg Senna (Senna -) 2 tab PO DAILY [facility] Tamsulosin HCl (Flomax -) 0.4 mg PO DAILY [facility] Last Admin: 01/08/17 09:04 Dose: 0.4 mg Tiotropium [place] (Spiriva -) 1 puff IH DAILY [facility] Last Admin: 01/08/17 09:05 Dose: 18 mcg Torsemide (Demadex -) 100 mg PO DAILY [facility] Trazodone HCl (Desyrel -) 100 mg PO HS [facility] Last Admin: 01/08/17 21:55 Dose: 100 mg Review of Systems Cardiovascular: As noted above Respiratory: denies: Cough or Sputum Production Gastrointestinal: denies: Nausea, Vomiting, Diarrhea, Constipation or Abdominal Discomfort Musculoskeletal: No Symptoms Reported Endocrine: No Symptoms Reported Vital Signs: Last Vital Signs Temp Pulse Resp BP Pulse Ox 100.8 F H 103 H 20 106/68 96 01/09/17 06:00 01/09/17 06:00 01/09/17 06:00 01/09/17 06:00 01/08/17 21:00 Intake & Output 01/06/17 01/07/17 01/08/17 01/09/17 23:59 23:59 23:59 23:59 Intake Total 350 300 Output Total 2700 600 Balance -2350 -300 Weight 232 lb 244 lb 12.8 oz Constitutional: No Distress, Calm Neck: Supple Negative JVD No Bruit Respiratory: Clear to A&P Cardiovascular: S1 S2 Regular Rate and Rhythm Grade 1-2/6 SM Gastrointestinal: Soft Benign Normal Bowel Sounds Ext: Negative Edema Labs: CBC, BMP 01/09/17 05:35 Hepatic Panel Total Bilirubin 0.9 mg/dL (0.2-1.0) 01/09/17 05:35 AST 23 U/L (15-37) D 01/09/17 05:35 ALT 35 U/L (12-78) 01/09/17 05:35 Alkaline Phosphatase 365 U/L (45-117) H 01/09/17 05:35 Albumin 2.4 g/dl (3.4-5.0) L 01/09/17 05:35 Assessment/Plan ASSESSMENT: 1. Systolic LV dysfunction with chronic class II-III NYHA classification heart failure (ischemic dilated cardiomyopathy with pulmonary HTN), compensated/ euvolemic 2. Bladder outlet obstruction with ecoli bacteremia secondary to UTI/presumed prostatitis 3. MRSA left forearm abscess 4. CAD post CABG, angina pectoris 5. History of cardiac arrest post ICD 6. Persistent atrial fibrillation on NOAC's 7. HTN 8. DM 9. Hypercholesterolemia 10. History of CVA 11. Chronic hypoxic respiratory failure with home O2 dependent COPD 12. OSAS noncompliant with CPAP 13. Acute on CKD 14. History of RLE DVT 15. Morbid obesity PLAN: 1. Continue Demadex with close monitoring of renal function and electrolytes 2. Continue Carvedilol 3. Ideally ARBS therapy to be resumed once renal function stabilized 4. Continue Xarelto at the above noted dosage 5. Antibiotics as per the primary and ID teams Ashwin Pittman MD
[2017-01-09] MEDS ORDERED: PT OWN MED DRAWER 7, Y5N ONE ×2 (08:56→17:07)
[2017-01-09] MEDS ORDERED: TORSEMIDE 100 MG TABLET PO SCH (10:00)
[2017-01-09] MEDS: CARVEDILOL 6.25 MG TABLET (FP) PO SCH ×2 (10:41→21:45)
[2017-01-09] MEDS: CEFTRIAXONE 2 GM in DEXTROSE 5%-WATER - 100 ML IVPB SCH (10:41)
[2017-01-09] MEDS: RIVAROXABAN 15 MG TABLET PO SCH (10:41)
[2017-01-09] MEDS: RANITIDINE HCL 150 MG TABLET (FP) PO SCH (10:41)
[2017-01-09] MEDS: TAMSULOSIN HCL 0.4 MG CAP.ER.24H (FP) PO SCH (10:41)
[2017-01-09] MEDS: TORSEMIDE 100 MG TABLET PO SCH (10:41)
[2017-01-09] MEDS: GABAPENTIN 100 MG CAPSULE (FP) PO SCH ×2 (10:41→22:04)
[2017-01-09] MEDS: SENNOSIDES 8.6MG TABLET (FP) PO SCH (10:41)
--- NOTE | 2017-01-09 12:06 | PN ---
Progress Note, Physician History of Present Illness: pulmonary agitated today,confused - Current Medication List Current Medications: Active Medications Carvedilol (Coreg -) 6.25 mg PO BID [facility] Last Admin: 01/09/17 10:41 Dose: 6.25 mg Docusate Sodium (Colace -) 100 mg PO TID [facility] Last Admin: 01/09/17 06:29 Dose: 100 mg Gabapentin (Neurontin -) 100 mg PO BID [facility] Last Admin: 01/09/17 10:41 Dose: 100 mg Ceftriaxone Sodium 2 gm/ (Dextrose) 100 mls @ 200 mls/hr IVPB DAILY [facility] Last Admin: 01/09/17 10:41 Dose: 200 mls/hr Insulin Aspart (Novolog Vial) 0 units SQ ACHS [facility] PRN Reason: Protocol Last Admin: 01/09/17 06:30 Dose: 2 units Insulin Aspart (Novolog Mix 70/30 Vial) 15 units SQ BIDAC [facility] Last Admin: 01/09/17 06:30 Dose: 15 units Insulin Detemir (Levemir Vial) 50 units SQ BID [facility] Last Admin: 01/09/17 10:52 Dose: 50 units Ranitidine HCl (Zantac -) 150 mg PO DAILY [facility] Last Admin: 01/09/17 10:41 Dose: 150 mg Rivaroxaban (Xarelto -) 15 mg PO DAILY [facility] Last Admin: 01/09/17 10:41 Dose: 15 mg Senna (Senna -) 2 tab PO DAILY [facility] Last Admin: 01/09/17 10:41 Dose: 2 tab Tamsulosin HCl (Flomax -) 0.4 mg PO DAILY [facility] Last Admin: 01/09/17 10:41 Dose: 0.4 mg Tiotropium [place] (Spiriva -) 1 puff IH DAILY [facility] Last Admin: 01/08/17 09:05 Dose: 18 mcg Torsemide (Demadex -) 100 mg PO DAILY [facility] Last Admin: 01/09/17 10:41 Dose: 100 mg Trazodone HCl (Desyrel -) 100 mg PO HS [facility] Last Admin: 01/08/17 21:55 Dose: 100 mg - Objective Vital Signs: Vital Signs Temperature 100.8 F H 01/09/17 06:00 Pulse Rate 103 H 01/09/17 06:00 Respiratory Rate 20 01/09/17 06:00 Blood Pressure 106/68 01/09/17 06:00 O2 Sat by Pulse Oximetry (%) 96 01/08/17 21:00 Constitutional: Yes: Obese, Other (agitated) Eyes: Yes: WNL HENT: Yes: WNL Neck: Yes: WNL Cardiovascular: Yes: Regular Rate and Rhythm, S1, S2 Respiratory: Yes: Diminished Gastrointestinal: Yes: Normal Bowel Sounds, Soft Extremities: Yes: WNL Edema: No Labs: CBC, BMP 01/09/17 05:35 01/09/17 05:35 INR, PTT INR 1.37 (0.82-1.09) H 01/09/17 05:35 - ....Imaging Chest X-ray: Report Reviewed, Image Reviewed (increased r pleural effusion) Problem List - Problems (1) Lung cancer Code(s): C34.90 - MALIGNANT NEOPLASM OF UNSP PART OF UNSP BRONCHUS OR LUNG (2) Acute urinary retention Code(s): R33.8 - OTHER RETENTION OF URINE (3) Anticoagulant long-term use Code(s): Z79.01 - SNF (CURRENT) USE OF 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 (4) Bladder outlet obstruction Code(s): N32.0 - BLADDER-NECK OBSTRUCTION (5) COPD (chronic obstructive pulmonary disease) Code(s): J44.9 - CHRONIC OBSTRUCTIVE PULMONARY DISEASE, UNSPECIFIED Qualifiers: COPD type: chronic bronchitis Chronic bronchitis type: unspecified Qualified Code(s): J42 - Unspecified chronic bronchitis (6) Hyperglycemia Code(s): R73.9 - HYPERGLYCEMIA, UNSPECIFIED (7) Leukocytosis Code(s): D72.829 - ELEVATED WHITE BLOOD CELL COUNT, UNSPECIFIED (8) Morbid obesity Code(s): E66.01 - MORBID (SEVERE) OBESITY DUE TO EXCESS CALORIES (9) Obstructive uropathy Code(s): N13.9 - OBSTRUCTIVE AND REFLUX UROPATHY, UNSPECIFIED (10) Pleural effusion, right Code(s): J90 - PLEURAL EFFUSION, NOT ELSEWHERE CLASSIFIED (11) CHF (congestive heart failure) Code(s): I50.9 - HEART FAILURE, UNSPECIFIED Qualifiers: (12) Acute on chronic systolic and diastolic heart failure, NYHA class 4 Code(s): I50.43 - ACUTE ON CHRONIC COMBINED SYSTOLIC AND DIASTOLIC HRT FAIL (13) COPD (chronic obstructive pulmonary disease) case management patient Code(s): WGQ8284 - (14) Dyspnea on exertion Code(s): R06.09 - OTHER FORMS OF DYSPNEA (15) Heart failure, systolic, with acute decompensation Code(s): I50.23 - ACUTE ON CHRONIC SYSTOLIC (CONGESTIVE) HEART FAILURE (16) Hx of CABG Code(s): Z95.1 - PRESENCE OF AORTOCORONARY BYPASS GRAFT (17) Ischemic cardiomyopathy Code(s): I25.5 - ISCHEMIC CARDIOMYOPATHY (18) LV dysfunction Code(s): I51.9 - HEART DISEASE, UNSPECIFIED (19) S/P CABG (coronary artery bypass graft) Code(s): Z95.1 - PRESENCE OF AORTOCORONARY BYPASS GRAFT (20) Single implantable cardioverter-defibrillator (ICD) in situ Code(s): Z95.810 - PRESENCE OF AUTOMATIC (IMPLANTABLE) CARDIAC DEFIBRILLATOR (21) Tobacco abuse Code(s): Z72.0 - TOBACCO USE (22) Obstructive sleep apnea of adult Code(s): G47.33 - OBSTRUCTIVE SLEEP APNEA (ADULT) (PEDIATRIC) Assessment/Plan IMP DYSPNEA ACUTE ON CHRONIC CHF R PLEURAAL EFFUSION ? CHF,? INFECTIOUS COPD ON HOME O2 CHRONIC HYPOXEMIC RESPIRATORY FAILURE ASHD S/P CABG S/P CARDIAC ARREST S/P ICD OBSTRUCTIVE UROPATHY URINARY RETENTION ACUTE ON CHRONIC KIDNEY DISEASE POORLY CONTROLLED DM LUNG CA S/P RT GOUT OSAS PLAN DIURETICS O2 INHALED BRONCHODILATORS EVAL PENDING MONITOR LYTES,RENAL FUNCTION GLYCEMIC CONTROL ANTIBIOTICS PER ID THORACENTESIS AM CHEST CT DR BARBOSA Problem List - Problems (1) Lung cancer Code(s): C34.90 - MALIGNANT NEOPLASM OF UNSP PART OF UNSP BRONCHUS OR LUNG (2) Acute urinary retention Code(s): R33.8 - OTHER RETENTION OF URINE (3) Anticoagulant long-term use Code(s): Z79.01 - SNF (CURRENT) USE OF 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 (4) Bladder outlet obstruction Code(s): N32.0 - BLADDER-NECK OBSTRUCTION (5) COPD (chronic obstructive pulmonary disease) Code(s): J44.9 - CHRONIC OBSTRUCTIVE PULMONARY DISEASE, UNSPECIFIED Qualifiers: COPD type: chronic bronchitis Chronic bronchitis type: unspecified Qualified Code(s): J42 - Unspecified chronic bronchitis (6) Hyperglycemia Code(s): R73.9 - HYPERGLYCEMIA, UNSPECIFIED (7) Leukocytosis Code(s): D72.829 - ELEVATED WHITE BLOOD CELL COUNT, UNSPECIFIED (8) Morbid obesity Code(s): E66.01 - MORBID (SEVERE) OBESITY DUE TO EXCESS CALORIES (9) Obstructive uropathy Code(s): N13.9 - OBSTRUCTIVE AND REFLUX UROPATHY, UNSPECIFIED (10) Pleural effusion, right Code(s): J90 - PLEURAL EFFUSION, NOT ELSEWHERE CLASSIFIED (11) CHF (congestive heart failure) Code(s): I50.9 - HEART FAILURE, UNSPECIFIED Qualifiers: (12) Acute on chronic systolic and diastolic heart failure, NYHA class 4 Code(s): I50.43 - ACUTE ON CHRONIC COMBINED SYSTOLIC AND DIASTOLIC HRT FAIL (13) COPD (chronic obstructive pulmonary disease) case management patient Code(s): CAA1240 - (14) Dyspnea on exertion Code(s): R06.09 - OTHER FORMS OF DYSPNEA (15) Heart failure, systolic, with acute decompensation Code(s): I50.23 - ACUTE ON CHRONIC SYSTOLIC (CONGESTIVE) HEART FAILURE (16) Hx of CABG Code(s): Z95.1 - PRESENCE OF AORTOCORONARY BYPASS GRAFT (17) Ischemic cardiomyopathy Code(s): I25.5 - ISCHEMIC CARDIOMYOPATHY (18) LV dysfunction Code(s): I51.9 - HEART DISEASE, UNSPECIFIED (19) S/P CABG (coronary artery bypass graft) Code(s): Z95.1 - PRESENCE OF AORTOCORONARY BYPASS GRAFT (20) Single implantable cardioverter-defibrillator (ICD) in situ Code(s): Z95.810 - PRESENCE OF AUTOMATIC (IMPLANTABLE) CARDIAC DEFIBRILLATOR (21) Tobacco abuse Code(s): Z72.0 - TOBACCO USE (22) Obstructive sleep apnea of adult Code(s): G47.33 - OBSTRUCTIVE SLEEP APNEA (ADULT) (PEDIATRIC)
--- NOTE | 2017-01-09 12:16 | EKG ---
Test Reason : Blood Pressure : / mmHG Vent. Rate : 102 BPM Atrial Rate : 102 BPM P-R Int : 170 ms QRS Dur : 136 ms QT Int : 380 ms P-R-T Axes : 073 157 039 degrees QTc Int : 495 ms SINUS TACHYCARDIA WITH PREMATURE SUPRAVENTRICULAR COMPLEXES AND WITH OCCASIONAL PREMATURE VENTRICULAR COMPLEXES POSSIBLE LEFT ATRIAL ENLARGEMENT RIGHT BUNDLE BRANCH BLOCK ANTEROLATERAL INFARCT (CITED ON OR BEFORE 08-JAN-2017) ABNORMAL ECG WHEN COMPARED WITH ECG OF 08-JAN-2017 04:08, PREMATURE VENTRICULAR COMPLEXES ARE NOW PRESENT PREMATURE SUPRAVENTRICULAR COMPLEXES ARE NOW PRESENT SERIAL CHANGES OF ANTEROLATERAL INFARCT PRESENT Confirmed by RAVINDER TREJO, DANNA ([id number]) on 01/09/2017 12:15:49 PM Referred By: Charu LEDEZMA Confirmed By:DANNA CASTELLON MD
[2017-01-09] MEDS: TIOTROPIUM BROMIDE 18 MCG/INH (DEVICE W/ 5 CAPSULES) IH SCH (13:30)
--- NOTE | 2017-01-09 14:42 | PN ---
Progress Note (short form) - Note Progress Note: moved to telemetry worsening right pleural effusion low grade fevers Vital Signs Period Temp Pulse Resp BP Sys/Mcconnell Pulse Ox Last 24 Hr 98.2 F-100.8 F 82-106 18-22 93-126/55-68 90-96 cor-rrr decreased bs right lung abd soft,nt ext no edema +cade CBC, BMP 01/09/17 05:35 01/09/17 05:35 hgbaic 14.2 Microbiology 01/08/17 11:50 Nares - Mrsa Screen - Left MRSA Screen - Final NO MRSA ISOLATED 01/08/17 11:50 Urine - Urine - Catheterized Urine Culture - Final NO GROWTH OBTAINED 01/08/17 04:18 Blood - Peripheral Venous Blood Culture - Preliminary NO GROWTH OBTAINED AFTER 24 HOURS, INCUBATION TO CONTINUE FOR 4 DAYS. 01/08/17 04:33 Blood - Peripheral Venous Blood Culture - Preliminary NO GROWTH OBTAINED AFTER 24 HOURS, INCUBATION TO CONTINUE FOR 4 DAYS. 01/08/17 11:50 Urine - Urine - Catheterized Legionella Antigen - Final 01/08/17 11:50 Urine - Urine - Catheterized Streptococcus pneumoniae Antigen (M - Final a/p plan leukocytosis-?UTI, ?pneumonia-worsening effusion- agree with plans for thoracentesis continue rocephin, redose vancomycin, check level in am urinary retention new right pleural effusion-?CHF history of lung cancer s/p RT diabetes- poorly compliant with meds history of MRSA-continue contact isolation Problem List - Problems (1) Leukocytosis Code(s): D72.829 - ELEVATED WHITE BLOOD CELL COUNT, UNSPECIFIED (2) Acute urinary retention Code(s): R33.8 - OTHER RETENTION OF URINE (3) Pleural effusion, right Code(s): J90 - PLEURAL EFFUSION, NOT ELSEWHERE CLASSIFIED (4) MRSA (methicillin resistant Staphylococcus aureus) colonization Code(s): Z22.322 - CARRIER OR SUSPECTED CARRIER OF METHICILLIN RESIS STAPH
[2017-01-09] MEDS ORDERED: VANCOMYCIN 1 GRAM (PRE-DOCKED) 1,000 MG/250 ML BAG IVPB ONE (14:43)
--- NOTE | 2017-01-09 14:49 | PN ---
Teaching Attending Note Name of Resident: Juan José Carbajal ATTENDING PHYSICIAN STATEMENT I saw and evaluated the patient. I reviewed the resident's note and discussed the case with the resident. I agree with the resident's findings and plan as documented. SUBJECTIVE:states hes sleepy because his sugars are high. denies Cp, SOB, fever , chills, N/V/C/D or orthopnea OBJECTIVE: Last Vital Signs Temp Pulse Resp BP Pulse Ox 98.5 F 103 H 22 126/62 90 L 01/09/17 10:00 01/09/17 10:00 01/09/17 10:00 01/09/17 10:00 01/09/17 13:00 Intake & Output 01/06/17 01/07/17 01/08/17 01/09/17 23:59 23:59 23:59 23:59 Intake Total 350 300 Output Total 2700 600 Balance -2350 -300 Weight 232 lb 244 lb 12.8 oz General lethargic. easily arousable to verbal stimuli CV S1 S2 RRR Lungs coarse breath sounds anteriorly Abdomen soft NT/ND Extremities 1+ pitting edema ASSESSMENT AND PLAN: 61yo M wtih PMH HTN, HLD, idiopathic dilated cardiomyopathy, systolic heart failure s/p PPM/AICD, CAD s/p CABG x4, h/o DVT on Xarelto, COPD on home O2, CKD , IDDM, lung cancer s/p radiation (2017), prostatitis, MRSA abscess left forearm , hepatitis B presented to the ER with difficulty urinating and generalized weakness 1. Urinary retention- likely BPH. s/p cade placement and 2L output. has refused urologic workup in the past. urology consulted. UA negative for infection 2. Acute on CKD- likely obstructive uropathy. improvement with cade placement. cont IVF/ 3. DM-A1c 14.2. uncontrolled. not compliant at home. endo consulted. cont insulin. titrate to optimize control 4. Sepsis due to suspected PNA vs complicated pleural effusion-Tm 100.8. NPO for thoracentesis in the AM to further characterize effusion. UA negative for infection. Ulegionella negative. cx negative. ID on board. on Vanco/Ceftriaxone day 2. renal dose vanco 5. Hyponatremia- resolved 6. acute on chronic systolic CHF- appears volume overloaded, however can not increase diuretics due to MARCIAL. toresemide dosing decreased. cont strict I&O, daily weights, fluid restriction. 7. DVT on xarelto 8. DVT ppx -on xarelto. hold AM dose for thoracentesis
[2017-01-09] MEDS ORDERED: VANCOMYCIN 1,000 MG in DEXTROSE 5%-WATER - 250 ML IVPB ONE (15:00)
--- NOTE | 2017-01-09 15:23 | HP ---
OBSERVATION TO INPATIENT CONVERSION CHIEF COMPLAINT: Weakness HISTORY OF PRESENT ILLNESS: Mr. Holley is a 61yo M with PMHx of Ischemic cardiomyopathy, Systolic CHF, AICD s/ p cardiac arrest, COPD on home O2, BPH on Flomax. He presented to the ER with 2- 3 day hx of generalized weakness and fatigue. He also reports high blood sugars on his home monitor. He endorsed urinary retention. Cade revealed +1L urine output. He also endorsed new onset intermittent cough and some soft stools. Denied CP, palpitations, denied nausea, vomiting. In the ER, he was afebrile, tachy in the 90s, initial BP was 110/56 but has dropped to as low as 78/48. He was given a 500mL bolus with improvement of SBPs to 90s-110. Found to have leukocytosis 13.7. BGM as high as 486 but not in ketoacidosis. Creatinine was elevated 2.4 (from baseline 1.5). Hgb A1C is 14.2. BNP is +4,000 which is lower from previous. UA taken at the time was negative for nitrates or leuk esterase. CXR taken shows enlarged heart with bilateral pleural effusions and congested lungs. On examination today, patient appears somnolent. Received Ativan last night due to restlessness. This AM the patient had vomitted once, but does not complain of abdominal pain. Pt had also complained once of back pain but denied pain on re-examination. STAT blood sugar was in the 200s. O2 is in the 90s. Recent Travel: Denies PAST MEDICAL HISTORY: Ischemic cardiomyopathy, Systolic CHF, AICD s/p cardiac arrest, CAD s/p CABG, Uncontrolled DM2, RLE DVT on Xarelto, Lung CA s/p radiation therapy, COPD on home O2, Hepatitis B, CVA, CKD. PAST SURGICAL HISTORY: CABG; ICD Social History: Smoking:quit 2008 Alcohol:no Drugs: no Allergies Iodinated Contrast- Oral and IV Dye [Iodinated Contrast Media - IV Dye] Allergy (Verified 01/08/17 04:58) raw fruits/vegetables Allergy (Intermediate, Uncoded 01/08/17 04:58) Rash CARROTS RASH celery Allergy (Uncoded 01/08/17 04:58) iv contrast dye Allergy (Uncoded 01/08/17 04:58) melon Allergy (Uncoded 01/08/17 04:58) pepper Allergy (Uncoded 01/08/17 04:58) raw apples Allergy (Uncoded 01/08/17 04:58) raw carrots Allergy (Uncoded 01/08/17 04:58) Raw cherries Allergy (Uncoded 01/08/17 04:58) HOME MEDICATIONS: Home Medications Medication Instructions Recorded Allopurinol [Zyloprim -] 100 mg PO BID 09/05/16 Calcium Carbonate 600 mg PO DAILY 09/05/16 Carvedilol 6.25 mg PO BID 09/05/16 Cholecalciferol (Vitamin D3) 1,000 unit MC DAILY 09/05/16 [Cholecalciferol] Colchicine 0.6 mg PO DAILY 09/05/16 Docusate Sodium 100 mg PO TID 09/05/16 Famotidine/Ca Carb/Mag Hydrox 1 each PO DAILY 09/05/16 [Pepcid Complete Tablet Chew] Gabapentin [Neurontin -] 100 mg PO BID 09/05/16 Insulin Regular, Human [Humulin R 30 unit SQ DAILY 09/05/16 U-500 Kwikpen] Liraglutide [Victoza -] 1.8 mg SQ DAILY@0700 09/05/16 Oxycodone HCl/Acetaminophen 1 tab PO Q6H 09/05/16 [Percocet 5-325 mg Tablet] Rivaroxaban [Xarelto -] 15 mg PO DAILY 09/05/16 Sennosides [Senno] 2 tab PO DAILY 09/05/16 Tamsulosin HCl 0.4 mg PO DAILY 09/05/16 Torsemide 100 mg PO BID 09/05/16 Ranitidine [Zantac -] 150 mg PO DAILY #0 tablet 09/08/16 Chantix 1 tab PO BID 12/04/16 Tiotropium [place] [Spiriva] 1 inh PO DAILY 01/08/17 Trazodone HCl [Desyrel -] 100 mg PO HS 01/08/17 REVIEW OF SYSTEMS CONSTITUTIONAL: Absent: fever, chills, diaphoresis, generalized weakness, malaise, loss of appetite, weight change HEENT: Absent: rhinorrhea, nasal congestion, throat pain, throat swelling, difficulty swallowing, mouth swelling, ear pain, eye pain, visual changes CARDIOVASCULAR: Absent: chest pain, syncope, palpitations, irregular heart rate, lightheadedness , peripheral edema RESPIRATORY: Absent: cough, shortness of breath, dyspnea with exertion, orthopnea, wheezing, stridor, hemoptysis GASTROINTESTINAL: Absent: abdominal pain, abdominal distension, nausea, vomiting, diarrhea, constipation, melena, hematochezia GENITOURINARY: Absent: dysuria, frequency, urgency, hesitancy, hematuria, flank pain, genital pain MUSCULOSKELETAL: Absent: myalgia, arthralgia, joint swelling, back pain, neck pain SKIN: Absent: rash, itching, pallor HEMATOLOGIC/IMMUNOLOGIC: Absent: easy bleeding, easy bruising, lymphadenopathy, frequent infections ENDOCRINE: Absent: unexplained weight gain, unexplained weight loss, heat intolerance, cold intolerance NEUROLOGIC: Absent: headache, focal weakness or paresthesias, dizziness, unsteady gait, seizure, mental status changes, bladder or bowel incontinence PSYCHIATRIC: Absent: anxiety, depression, suicidal or homicidal ideation, hallucinations. PHYSICAL EXAMINATION Vital Signs Temperature 98.5 F 01/09/17 10:00 Pulse Rate 103 H 01/09/17 10:00 Respiratory Rate 22 01/09/17 10:00 Blood Pressure 126/62 01/09/17 10:00 O2 Sat by Pulse Oximetry (%) 90 L 01/09/17 13:00 GEN: Somnolent, does not appear in acute distress HEENT: No cervical LAD, no rashes, unable to assess JVD due to body habitus CV: S1, S2, RRR LUNG: Unable to appreciate posterior lung exam, grossly clear anteriorly ABD: Soft, NT, ND, obese MSK: Venous stasis changes on both legs, no edema Laboratory Last Values WBC 15.6 K/mm3 (4.0-10.0) H 01/09/17 05:35 RBC 4.06 M/mm3 (4.00-5.60) 01/09/17 05:35 Hgb 12.2 GM/dL (11.7-16.9) 01/09/17 05:35 Hct 36.2 % (35.4-49) 01/09/17 05:35 MCV 89.3 fl (80-96) 01/09/17 05:35 MCH 30.0 pg (25.7-33.7) 01/09/17 05:35 MCHC 33.6 g/dl (32.0-35.9) 01/09/17 05:35 RDW 14.6 % (11.9-15.9) 01/09/17 05:35 Plt Count 145 K/MM3 (134-434) 01/09/17 05:35 MPV 9.0 fl (7.5-11.1) 01/09/17 05:35 Neutrophils % 84.5 % (42.8-82.8) H 01/09/17 05:35 Lymphocytes % 3.2 % (8-40) L D 01/09/17 05:35 Monocytes % 10.3 % (3.8-10.2) H 01/09/17 05:35 Eosinophils % 1.7 % (0-4.5) 01/09/17 05:35 Basophils % 0.3 % (0-2.0) 01/09/17 05:35 PT with INR 15.50 SEC (9.98-11.88) H 01/09/17 05:35 INR 1.37 (0.82-1.09) H 01/09/17 05:35 PTT (Actin FS) 23.8 SECONDS (26.9-34.4) L D 01/09/17 05:35 Sodium 134 mmol/L (136-145) L 01/09/17 05:35 Potassium 4.8 mmol/L (3.5-5.1) 01/09/17 05:35 Chloride 97 mmol/L (98-107) L 01/09/17 05:35 Carbon Dioxide 29 mmol/L (21-32) 01/09/17 05:35 Anion Gap 8 (8-16) 01/09/17 05:35 BUN 69 mg/dL (7-18) H 01/09/17 05:35 Creatinine 2.0 mg/dL (0.7-1.3) H 01/09/17 05:35 Creat Clearance w eGFR 34.14 (>60) 01/09/17 05:35 POC Glucometer 218 UNITS (80-120) 01/09/17 12:53 Random Glucose 190 mg/dL (74-106) H D 01/09/17 05:35 Hemoglobin A1c % 14.2 % (4.8-6.0) H D 01/08/17 11:50 Lactic Acid 1.3 mmol/L (0.4-2.0) 01/08/17 10:48 Calcium 8.6 mg/dL (8.5-10.1) 01/09/17 05:35 Phosphorus 4.2 mg/dL (2.5-4.9) D 01/09/17 05:35 Magnesium 2.7 mg/dL (1.8-2.4) H 01/09/17 05:35 Total Bilirubin 0.9 mg/dL (0.2-1.0) 01/09/17 05:35 AST 23 U/L (15-37) D 01/09/17 05:35 ALT 35 U/L (12-78) 01/09/17 05:35 Alkaline Phosphatase 365 U/L (45-117) H 01/09/17 05:35 Creatine Kinase 61 IU/L (39-308) 01/08/17 04:40 Troponin I < 0.02 ng/ml (0.00-0.05) D 01/08/17 04:40 B-Natriuretic Peptide 4794.85 pg/ml (5-125) H 01/08/17 04:40 Total Protein 6.6 g/dl (6.4-8.2) 01/09/17 05:35 Albumin 2.4 g/dl (3.4-5.0) L 01/09/17 05:35 Urine Color Yellow 01/08/17 12:00 Urine Appearance Slcloudy 01/08/17 12:00 Urine pH 5.0 (5.0-8.0) 01/08/17 12:00 Ur Specific [place] 1.013 (1.001-1.035) 01/08/17 12:00 Urine Protein Negative (NEGATIVE) 01/08/17 12:00 Urine Glucose (UA) 2+ (NEGATIVE) H 01/08/17 12:00 Urine Ketones Negative (NEGATIVE) 01/08/17 12:00 Urine Blood Negative (NEGATIVE) 01/08/17 12:00 Urine Nitrite Negative (NEGATIVE) 01/08/17 12:00 Urine Bilirubin Negative (NEGATIVE) 01/08/17 12:00 Urine Urobilinogen Negative mg/dL (0.2-1.0) 01/08/17 12:00 Ur Leukocyte Esterase Negative (NEGATIVE) 01/08/17 12:00 Random Vancomycin 8.377 ug/ml 01/09/17 08:20 Active Medications Generic Name Dose Route Start Last Admin Trade Name Michaelle PRN Reason Stop Dose Admin Carvedilol 6.25 mg 01/08/17 21:52 01/09/17 10:41 Coreg - PO 6.25 mg BID MAGEN Administration Docusate Sodium 100 mg 01/08/17 22:03 01/09/17 06:29 Colace - PO 100 mg TID MAGEN Administration Gabapentin 100 mg 01/09/17 22:00 Neurontin - PO BID MAGEN Ceftriaxone Sodium 2 gm/ 100 mls @ 200 mls/hr 01/10/17 10:00 Dextrose IVPB DAILY MAGEN Vancomycin HCl 1,000 mg/ 250 mls @ 166.667 mls/hr 01/09/17 15:00 Dextrose IVPB 01/09/17 16:29 ONCE ONE Insulin Aspart 15 units 01/09/17 16:30 Novolog Mix 70/30 Vial SQ BIDAC [facility] Insulin Aspart 1 vial 01/09/17 16:30 Novolog Vial Sliding Scale - SQ ACHS [facility] Protocol Insulin Detemir 50 units 01/09/17 16:30 Levemir Vial SQ BIDI [facility] Ranitidine HCl 150 mg 01/10/17 10:00 Zantac - PO DAILY [facility] Rivaroxaban 15 mg 01/10/17 10:00 Xarelto - PO DAILY [facility] Senna 2 tab 01/09/17 10:00 01/09/17 10:41 Senna - PO 2 tab DAILY [facility] Administration Tamsulosin HCl 0.4 mg 01/10/17 08:30 Flomax - PO DAILY@0830 [facility] Tiotropium [place] 1 puff 01/10/17 10:00 Spiriva - IH DAILY [facility] Torsemide 100 mg 01/09/17 10:00 01/09/17 10:41 Demadex - PO 100 mg DAILY MAGEN Administration Trazodone HCl 100 mg 01/08/17 22:00 01/08/17 21:55 Desyrel - PO 100 mg HS MAGEN Administration ASSESSMENT/PLAN: Mr. Holley is a 61yo M with PMHx of Ischemic cardiomyopathy, Systolic CHF, AICD s/ p cardiac arrest, COPD on home O2, BPH on Flomax. He presented to the ER with 2- 3 day hx of generalized weakness and fatigue, found to be in acute decompensated CHF and possible Pneumonia # Weakness - 2/2 ?PNA vs Decompensated CHF (EF 21.2%) - treat both conditions and assess mental status tmrw, try to avoid sedatives # Likely Pneumonia with ?Parapneumonic Effusion - Patient is afebrile but with leukocytosis, ?cough. CT chest on my read shows large R sided possibly loculated pleural effusion with possible R basilar consolidative process. Will get thoracentesis tmrw. NPO after midnight. Xarelto held for tmrw. Pleural fluid labs ordered. ID started pt on antibiotics Vanc x1 dose and Ceftriaxone 2g daily. # Congestive Heart Failure - Possibly came in with exacerbation of CHF. Difficult to appreciate fluid overload on exam. Pleural effusion could be transudative from CHF, will check thoracentesis labs tmrw. Currently on Torsemide 100mg QD. Coreg 6.25 BID with holding parameters. # Urinary Retention - Likely from BPH, UA negative. Continue Flomax 0.4mg daily and cade, Urology on board due to urinary retention # Uncontrolled DM2 -Pt was not compliant with home insulin, A1C 14.2, Endocrine following, placed on Levemir 50u BID + Novolog 70/30 15u BIDAC + SSI. Also on Gabapentin 100 BD for neuropathy # MARCIAL on CKD -Could be secondary to post-obstructive, improving with cade # Hx of Atrial Fibrillation - Continue Xarelto 15 daily # Hx of COPD On home O2 3L RTC, Continue Spiriva daily, # Hx of Gout Not on home Allopurinol due to MARCIAL # Hx of MDD Continue Trazodone 100mg HS # Hx of Constipation Continue Docusate and Senna # Hx of Allergies Continue Ranitidine # FEN Not on fluids, elec, diabetic low sodium diet # PPx On Xarelto, no GI needed, PT ordered # Dispo Converted from obs to inpatient status. Treat for PNA with parapneumonic effusion. Thoracentesis tmrw. NPO after midnight. d/w Dr Lavonne Carbajal MD - PGY1 Internal Medicine Visit type - Emergency Visit Emergency Visit: No - New Patient This patient is new to me today: No - Critical Care Critical Care patient: No
[2017-01-09] MEDS ORDERED: INSULIN (NOVOLOG) ASPART 100 UNITS/ML 10ML VIAL ONE (17:07)
[2017-01-09] MEDS: INSULIN SLIDING SCALE (NOVOLOG) 1 VIAL SQ SCH ×2 (17:19→22:04)
[2017-01-09] MEDS: traZODone HCL 50 MG TABLET (FP) PO SCH (22:04)
[2017-01-10] MEDS: CARVEDILOL 6.25 MG TABLET (FP) PO SCH ×3 (01:53→21:13)
[2017-01-10 02:41] LABS: ANION GAP 12 (8-16); CALCIUM 8.7 mg/dL (8.5-10.1); CO2 26 mmol/L (21-32); CREATININE 1.8 mg/dL (0.7-1.3); GLUCOSE,RANDOM 186 mg/dL (74-106); MAGNESIUM 2.5 mg/dL (1.8-2.4)
[2017-01-10] MEDS: DOCUSATE SODIUM 100 MG CAPSULE (FP) PO SCH ×3 (05:17→21:13)
[2017-01-10] MEDS: INSULIN SLIDING SCALE (NOVOLOG) 1 VIAL SQ SCH ×4 (06:25→21:13)
[2017-01-10] MEDS: INSULIN (NOVOLOG MIX 70/30) 100 UNITS/ML MDV SQ SCH ×2 (06:25→16:34)
[2017-01-10] MEDS: INSULIN DETEMIR 100 UNITS/ML MDV SQ SCH ×2 (06:25→16:32)
--- NOTE | 2017-01-10 08:22 | PN ---
Physical Exam: SUBJECTIVE: Patient seen and examined. Less somnolent today. Last night episode of VT, received his normal dose of Coreg, resolved. Asymptomatic. Ok with pleural tap today. OBJECTIVE: Vital Signs Period Temp Pulse Resp BP Sys/Mcconnell Pulse Ox Last 24 Hr 97.3 F-98.6 F 83-103 20-22 90-126/57-62 90-90 GEN: Somnolent, does not appear in acute distress HEENT: No cervical LAD, no rashes, unable to assess JVD due to body habitus CV: S1, S2, RRR LUNG: Unable to appreciate posterior lung exam, grossly clear anteriorly ABD: Soft, NT, ND, obese MSK: Venous stasis changes on both legs, no edema Laboratory Last Values WBC 15.6 K/mm3 (4.0-10.0) H 01/09/17 05:35 RBC 4.06 M/mm3 (4.00-5.60) 01/09/17 05:35 Hgb 12.2 GM/dL (11.7-16.9) 01/09/17 05:35 Hct 36.2 % (35.4-49) 01/09/17 05:35 MCV 89.3 fl (80-96) 01/09/17 05:35 MCH 30.0 pg (25.7-33.7) 01/09/17 05:35 MCHC 33.6 g/dl (32.0-35.9) 01/09/17 05:35 RDW 14.6 % (11.9-15.9) 01/09/17 05:35 Plt Count 145 K/MM3 (134-434) 01/09/17 05:35 MPV 9.0 fl (7.5-11.1) 01/09/17 05:35 Neutrophils % 84.5 % (42.8-82.8) H 01/09/17 05:35 Lymphocytes % 3.2 % (8-40) L D 01/09/17 05:35 Monocytes % 10.3 % (3.8-10.2) H 01/09/17 05:35 Eosinophils % 1.7 % (0-4.5) 01/09/17 05:35 Basophils % 0.3 % (0-2.0) 01/09/17 05:35 PT with INR 15.50 SEC (9.98-11.88) H 01/09/17 05:35 INR 1.37 (0.82-1.09) H 01/09/17 05:35 PTT (Actin FS) 23.8 SECONDS (26.9-34.4) L D 01/09/17 05:35 Sodium 137 mmol/L (136-145) 01/10/17 01:30 Potassium 4.8 mmol/L (3.5-5.1) 01/10/17 01:30 Chloride 99 mmol/L (98-107) 01/10/17 01:30 Carbon Dioxide 26 mmol/L (21-32) 01/10/17 01:30 Anion Gap 12 (8-16) 01/10/17 01:30 BUN 64 mg/dL (7-18) H 01/10/17 01:30 Creatinine 1.8 mg/dL (0.7-1.3) H 01/10/17 01:30 Creat Clearance w eGFR 34.14 (>60) 01/09/17 05:35 POC Glucometer 142 UNITS (80-120) 01/10/17 05:26 Random Glucose 186 mg/dL (74-106) H 01/10/17 01:30 Hemoglobin A1c % 14.2 % (4.8-6.0) H D 01/08/17 11:50 Lactic Acid 1.3 mmol/L (0.4-2.0) 01/08/17 10:48 Calcium 8.7 mg/dL (8.5-10.1) 01/10/17 01:30 Phosphorus 4.2 mg/dL (2.5-4.9) D 01/09/17 05:35 Magnesium 2.5 mg/dL (1.8-2.4) H 01/10/17 01:30 Total Bilirubin 0.9 mg/dL (0.2-1.0) 01/09/17 05:35 AST 23 U/L (15-37) D 01/09/17 05:35 ALT 35 U/L (12-78) 01/09/17 05:35 Alkaline Phosphatase 365 U/L (45-117) H 01/09/17 05:35 Creatine Kinase 61 IU/L (39-308) 01/08/17 04:40 Troponin I < 0.02 ng/ml (0.00-0.05) D 01/08/17 04:40 B-Natriuretic Peptide 4794.85 pg/ml (5-125) H 01/08/17 04:40 Total Protein 6.6 g/dl (6.4-8.2) 01/09/17 05:35 Albumin 2.4 g/dl (3.4-5.0) L 01/09/17 05:35 Urine Color Yellow 01/08/17 12:00 Urine Appearance Slcloudy 01/08/17 12:00 Urine pH 5.0 (5.0-8.0) 01/08/17 12:00 Ur Specific [place] 1.013 (1.001-1.035) 01/08/17 12:00 Urine Protein Negative (NEGATIVE) 01/08/17 12:00 Urine Glucose (UA) 2+ (NEGATIVE) H 01/08/17 12:00 Urine Ketones Negative (NEGATIVE) 01/08/17 12:00 Urine Blood Negative (NEGATIVE) 01/08/17 12:00 Urine Nitrite Negative (NEGATIVE) 01/08/17 12:00 Urine Bilirubin Negative (NEGATIVE) 01/08/17 12:00 Urine Urobilinogen Negative mg/dL (0.2-1.0) 01/08/17 12:00 Ur Leukocyte Esterase Negative (NEGATIVE) 01/08/17 12:00 Random Vancomycin 8.377 ug/ml 01/09/17 08:20 Active Medications Generic Name Dose Route Start Last Admin Trade Name Freq PRN Reason Stop Dose Admin Carvedilol 6.25 mg 01/08/17 21:52 01/10/17 12:29 Coreg - PO 6.25 mg BID MAGEN Administration Docusate Sodium 100 mg 01/08/17 22:03 01/10/17 05:17 Colace - PO Not Given TID MAGEN Gabapentin 100 mg 01/09/17 22:00 01/10/17 12:29 Neurontin - PO 100 mg BID [facility] Administration Ceftriaxone Sodium 2 gm/ 100 mls @ 200 mls/hr 01/10/17 10:00 01/10/17 12:30 Dextrose IVPB 200 mls/hr DAILY [facility] Administration Insulin Aspart 15 units 01/09/17 16:30 01/10/17 06:25 Novolog Mix 70/30 Vial SQ Not Given BIDAC [facility] Insulin Aspart 1 vial 01/09/17 16:30 01/10/17 11:00 Novolog Vial Sliding Scale - SQ Not Given ACHS [facility] Protocol Insulin Detemir 50 units 01/09/17 16:30 01/10/17 06:25 Levemir Vial SQ Not Given BIDI [facility] Oxycodone HCl 5 mg 01/10/17 14:03 Roxicodone - PO Q6H PRN PAIN Ranitidine HCl 150 mg 01/10/17 10:00 01/10/17 12:29 Zantac - PO 150 mg DAILY [facility] Administration Rivaroxaban 15 mg 01/10/17 10:00 Xarelto - PO DAILY [facility] Senna 2 tab 01/09/17 10:00 01/10/17 12:29 Senna - PO 2 tab DAILY [facility] Administration Tamsulosin HCl 0.4 mg 01/10/17 08:30 01/10/17 12:29 Flomax - PO 0.4 mg DAILY@0830 [facility] Administration Tiotropium [place] 1 puff 01/10/17 10:00 01/10/17 12:30 Spiriva - IH Not Given DAILY MAG[facility] Torsemide 100 mg 01/09/17 10:00 01/10/17 12:30 Demadex - PO 100 mg DAILY [facility] Administration Trazodone HCl 100 mg 01/08/17 22:00 01/09/17 22:04 Desyrel - PO 100 mg HS MAG[facility] Administration Laboratory Tests 01/10/17 01/10/17 11:30 11:30 Pleural Fluid Source Pleural Pleural Color Bloody Pleural Appearance Cloudy Pleural pH 7.5 Pleural WBC 4,045 Pleural RBC 435,148 Pleural Neutrophils Pending Pleural Chloride TNP Pleural Total Protein 5.427 Pleural Albumin 2 Pleural LDH 571.98 Pleural Glucose 81.006 Pleural Amylase 17.556 Pleural Cholesterol < 50 Pleural Triglycerides 55 ASSESSMENT/PLAN: Mr. Holley is a 61yo M with PMHx of Ischemic cardiomyopathy, Systolic CHF, AICD s/ p cardiac arrest, COPD on home O2, BPH on Flomax. He presented to the ER with 2- 3 day hx of generalized weakness and fatigue, found to be in acute decompensated CHF and possible Pneumonia # Right Hemothorax - S/p thoracentesis drained 70cc of bloody fluid. Possibly secondary to anticoagulation vs malignant effusion. Not clear pneumonia picture but will cover with Ceftriaxone 2g daily, increased in size from admission. Dr Villalobos saw patient, chest tube will be placed tmrw. If ineffective, will move fwd with VATS. Xarelto held. # Ischemic Cardiomyopathy - Pt has AICD. Continue Torsemide 100mg QD, net I&O negative so far, not overloaded on exam. Coreg 6.25 BID with holding parameters. BP is improving # Uncontrolled DM2 - A1C 14.2, Endocrine following, held insulin this AM since NPO. Otherwise on Levemir 50u BID + Novolog 70/30 15u BIDAC + SSI. # Hx of Atrial Fibrillation - Xarelto held due to bleed # Chronic Back Pain - Placed on Oxycodone 5mg Q6H PRN, has used it at home with relief. # MARCIAL on CKD -Could be secondary to post-obstructive, improving with cade # Urinary Retention - Likely from BPH, UA negative. Continue Flomax 0.4mg daily and cade, Urology on board due to urinary retention # Hx of COPD - On home O2 3L RTC, Continue Spiriva daily, # Hx of Gout - Not on home Allopurinol due to MARCIAL # Hx of MDD - Continue Trazodone 100mg HS # Diabetic Neuropathy - Gabapentin 100 BID # Hx of Constipation - Continue Docusate and Senna # Hx of Allergies - Continue Ranitidine # FEN - Not on fluids, elec, diabetic low sodium diet # PPx - On Xarelto, no GI needed, PT ordered # Dispo - Will get chest tube placed tomorrow by IR. If not improves, will move fwd with VATS procedure. Unclear cause of R hemothorax. d/w Dr Lavonne Carbajal MD - PGY1 Internal Medicine Visit type - Emergency Visit Emergency Visit: No - New Patient This patient is new to me today: No - Critical Care Critical Care patient: No - Discharge Referral Referred to [facility] Med P.C.: No
--- NOTE | 2017-01-10 09:36 | PN ---
Progress Note (short form) - Note Progress Note: moved to telemetry worsening right pleural effusion low grade fevers resolved alert wants to eat (npo for thoracentesis today) Vital Signs Period Temp Pulse Resp BP Sys/Mcconnell Pulse Ox Last 24 Hr 97.3 F-98.6 F 83-103 20-22 90-126/57-62 90-90 cor-rrr lungs decreased bs on the right abd soft,nt +cade ext no edema labs pending hgbac is 14! Microbiology 01/08/17 04:18 Blood - Peripheral Venous Blood Culture - Preliminary NO GROWTH OBTAINED AFTER 48 HOURS, INCUBATION TO CONTINUE FOR 3 DAYS. 01/08/17 04:33 Blood - Peripheral Venous Blood Culture - Preliminary NO GROWTH OBTAINED AFTER 48 HOURS, INCUBATION TO CONTINUE FOR 3 DAYS. 01/08/17 11:50 Nares - Mrsa Screen - Left MRSA Screen - Final NO MRSA ISOLATED 01/08/17 11:50 Urine - Urine - Catheterized Urine Culture - Final NO GROWTH OBTAINED 01/08/17 11:50 Urine - Urine - Catheterized Legionella Antigen - Final 01/08/17 11:50 Urine - Urine - Catheterized Streptococcus pneumoniae Antigen (M - Final ct scan with large right pleural effusion, left upper lobe mass a/p plan leukocytosis-?UTI, ?pneumonia-worsening effusion- agree with plans for thoracentesis-?empyema, ?malignancy continue rocephin, vancomycin trough pending urinary retention-now with cade new right pleural effusion-?CHF history of lung cancer s/p RT diabetes- poorly compliant with meds-hgb a1c of 14 history of MRSA-continue contact isolation Problem List - Problems (1) Leukocytosis Code(s): D72.829 - ELEVATED WHITE BLOOD CELL COUNT, UNSPECIFIED (2) Acute urinary retention Code(s): R33.8 - OTHER RETENTION OF URINE (3) Pleural effusion, right Code(s): J90 - PLEURAL EFFUSION, NOT ELSEWHERE CLASSIFIED (4) MRSA (methicillin resistant Staphylococcus aureus) colonization Code(s): Z22.322 - CARRIER OR SUSPECTED CARRIER OF METHICILLIN RESIS STAPH
[2017-01-10 09:40] LABS: MCH 29.7 pg (25.7-33.7); MCHC 33.2 g/dl (32.0-35.9); MEAN CELL VOLUME 89.7 fl (80-96); MEAN PLT VOLUME 8.7 fl (7.5-11.1); PLATELET COUNT 157 K/MM3 (134-434); RDW 14.7 % (11.9-15.9); WHITE BLOOD COUNT 16.2 K/mm3 (4.0-10.0)
[2017-01-10 09:47] LABS: ALBUMIN 2.2 g/dl (3.4-5.0); ANION GAP 7 (8-16); CALCIUM 8.4 mg/dL (8.5-10.1); CO2 29 mmol/L (21-32); GLUCOSE,RANDOM 136 mg/dL (74-106); SGOT/AST 24 U/L (15-37); SGPT/ALT 34 U/L (12-78)
[2017-01-10 09:49] LABS: ALK PHOS 425 U/L (45-117); CREATININE 1.8 mg/dL (0.7-1.3); TOT PROT 6.9 g/dl (6.4-8.2)
[2017-01-10] MEDS ORDERED: RIVAROXABAN 15 MG TABLET PO SCH (10:00)
[2017-01-10] MEDS ORDERED: PT OWN MED DRAWER 7, Y5N ONE (12:14)
[2017-01-10] MEDS: TAMSULOSIN HCL 0.4 MG CAP.ER.24H (FP) PO SCH (12:29)
[2017-01-10] MEDS: GABAPENTIN 100 MG CAPSULE (FP) PO SCH ×2 (12:29→21:13)
[2017-01-10] MEDS: RANITIDINE HCL 150 MG TABLET (FP) PO SCH (12:29)
[2017-01-10] MEDS: SENNOSIDES 8.6MG TABLET (FP) PO SCH (12:29)
[2017-01-10] MEDS: TIOTROPIUM BROMIDE 18 MCG/INH (DEVICE W/ 5 CAPSULES) IH SCH (12:30)
[2017-01-10] MEDS: TORSEMIDE 100 MG TABLET PO SCH (12:30)
[2017-01-10] MEDS: CEFTRIAXONE 2 GM in DEXTROSE 5%-WATER - 100 ML IVPB SCH (12:30)
--- NOTE | 2017-01-10 12:31 | PN ---
Progress Note, Physician History of Present Illness: He underwent right thoracentesis for increasing effusion, fluid studies pending. - Current Medication List Current Medications: Active Medications Carvedilol (Coreg -) 6.25 mg PO BID [facility] Last Admin: 01/10/17 12:29 Dose: 6.25 mg Docusate Sodium (Colace -) 100 mg PO TID [facility] Last Admin: 01/10/17 05:17 Dose: Not Given Gabapentin (Neurontin -) 100 mg PO BID [facility] Last Admin: 01/10/17 12:29 Dose: 100 mg Ceftriaxone Sodium 2 gm/ (Dextrose) 100 mls @ 200 mls/hr IVPB DAILY [facility] Last Admin: 01/10/17 12:30 Dose: 200 mls/hr Insulin Aspart (Novolog Mix 70/30 Vial) 15 units SQ BIDAC [facility] Last Admin: 01/10/17 06:25 Dose: Not Given Insulin Aspart (Novolog Vial Sliding Scale -) 1 vial SQ ACHS [facility] PRN Reason: Protocol Last Admin: 01/10/17 06:25 Dose: Not Given Insulin Detemir (Levemir Vial) 50 units SQ BIDI [facility] Last Admin: 01/10/17 06:25 Dose: Not Given Ranitidine HCl (Zantac -) 150 mg PO DAILY [facility] Last Admin: 01/10/17 12:29 Dose: 150 mg Rivaroxaban (Xarelto -) 15 mg PO DAILY [facility] Senna (Senna -) 2 tab PO DAILY [facility] Last Admin: 01/10/17 12:29 Dose: 2 tab Tamsulosin HCl (Flomax -) 0.4 mg PO DAILY@0830 [facility] Last Admin: 01/10/17 12:29 Dose: 0.4 mg Tiotropium [place] (Spiriva -) 1 puff IH DAILY [facility] Last Admin: 01/10/17 12:30 Dose: Not Given Torsemide (Demadex -) 100 mg PO DAILY [facility] Last Admin: 01/10/17 12:30 Dose: 100 mg Trazodone HCl (Desyrel -) 100 mg PO HS [facility] Last Admin: 01/09/17 22:04 Dose: 100 mg - Objective Vital Signs: Vital Signs Temperature 98.4 F 01/10/17 06:00 Pulse Rate 83 01/10/17 06:00 Respiratory Rate 20 01/10/17 06:00 Blood Pressure 115/59 01/10/17 06:00 O2 Sat by Pulse Oximetry (%) 90 L 01/09/17 21:00 Constitutional: Yes: No Distress, Calm Neck: Yes: Supple Cardiovascular: Yes: Regular Rate and Rhythm Respiratory: Yes: Regular, Diminished, On Nasal O2 Gastrointestinal: Yes: Normal Bowel Sounds, Soft, Abdomen, Obese Edema: No Labs: CBC, BMP 01/10/17 08:45 01/10/17 08:45 INR, PTT INR 1.37 (0.82-1.09) H 01/09/17 05:35 - ....Imaging Chest X-ray: Report Reviewed (No PTX post thoracentesis) Cat Scan: Report Reviewed (ct scan with large right pleural effusion, left upper lobe mass) Problem List - Problems (1) Acute urinary retention Code(s): R33.8 - OTHER RETENTION OF URINE (2) COPD (chronic obstructive pulmonary disease) Code(s): J44.9 - CHRONIC OBSTRUCTIVE PULMONARY DISEASE, UNSPECIFIED Qualifiers: COPD type: chronic bronchitis Chronic bronchitis type: unspecified Qualified Code(s): J42 - Unspecified chronic bronchitis (3) Hyperglycemia Code(s): R73.9 - HYPERGLYCEMIA, UNSPECIFIED (4) Leukocytosis Code(s): D72.829 - ELEVATED WHITE BLOOD CELL COUNT, UNSPECIFIED (5) Morbid obesity Code(s): E66.01 - MORBID (SEVERE) OBESITY DUE TO EXCESS CALORIES (6) Pleural effusion, right Code(s): J90 - PLEURAL EFFUSION, NOT ELSEWHERE CLASSIFIED (7) Renal failure, acute Code(s): N17.9 - ACUTE KIDNEY FAILURE, UNSPECIFIED Qualifiers: Acute renal failure type: unspecified Qualified Code(s): N17.9 - Acute kidney failure, unspecified (8) Acute on chronic systolic and diastolic heart failure, NYHA class 4 Code(s): I50.43 - ACUTE ON CHRONIC COMBINED SYSTOLIC AND DIASTOLIC HRT FAIL (9) Hx of CABG Code(s): Z95.1 - PRESENCE OF AORTOCORONARY BYPASS GRAFT (10) Ischemic cardiomyopathy Code(s): I25.5 - ISCHEMIC CARDIOMYOPATHY (11) LV dysfunction Code(s): I51.9 - HEART DISEASE, UNSPECIFIED (12) Lung nodule Code(s): R91.1 - SOLITARY PULMONARY NODULE (13) Poor compliance Code(s): Z91.19 - PATIENT'S NONCOMPLIANCE W OTH MEDICAL TREATMENT AND REGIMEN (14) S/P CABG (coronary artery bypass graft) Code(s): Z95.1 - PRESENCE OF AORTOCORONARY BYPASS GRAFT (15) Severe left ventricular systolic dysfunction Code(s): I51.9 - HEART DISEASE, UNSPECIFIED (16) Single implantable cardioverter-defibrillator (ICD) in situ Code(s): Z95.810 - PRESENCE OF AUTOMATIC (IMPLANTABLE) CARDIAC DEFIBRILLATOR (17) Type 2 diabetes mellitus with mild nonproliferative diabetic retinopathy without macular edema Code(s): E11.329 - TYPE 2 DIAB W MILD NONPRLF DIABETIC RTNOP W/O * DO NOT USE * Qualifiers: Diabetes mellitus intermediate insulin use: with solutions manager use (18) CKD (chronic kidney disease) Code(s): N18.9 - CHRONIC KIDNEY DISEASE, UNSPECIFIED Qualifiers: Chronic kidney disease stage: stage 3 (moderate) Qualified Code(s): N18.3 - Chronic kidney disease, stage 3 (moderate) (19) Diabetes mellitus, insulin dependent (IDDM), uncontrolled Code(s): E10.65 - TYPE 1 DIABETES MELLITUS WITH HYPERGLYCEMIA Qualifiers: Diabetes mellitus complication detail: with polyneuropathy (20) Obstructive sleep apnea of adult Code(s): G47.33 - OBSTRUCTIVE SLEEP APNEA (ADULT) (PEDIATRIC) (21) Bladder outlet obstruction Code(s): N32.0 - BLADDER-NECK OBSTRUCTION (22) Obstructive uropathy Code(s): N13.9 - OBSTRUCTIVE AND REFLUX UROPATHY, UNSPECIFIED (23) Deep venous thrombosis Code(s): I82.409 - ACUTE EMBOLISM AND THOMBOS UNSP DEEP VN UNSP LOWER EXTREMITY Qualifiers: DVT location: lower extremity Affected thrombotic vein of extremity: unspecified vein of extremity Chronicity: acute Laterality: right Qualified Code(s): I82.401 - Acute embolism and thrombosis of unspecified deep veins of right lower extremity (24) Hyponatremia Code(s): E87.1 - HYPO-OSMOLALITY AND HYPONATREMIA (25) Anticoagulant long-term use Code(s): Z79.01 - [facility] (CURRENT) USE OF 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 Assessment/Plan 08/14/2016 Echo: Severely decreased LV fxn, mod-severe decrease RV fxn, Tr-mild MR , tr TR 1. Severe LV systolic failure with NYHA classification 3-4 heart failure with ischemic cardiomyopathy with pulm HTN and right pleural effusion post thoracentesis r/o empyema, malignancy 2. Bladder outlet obstruction and leukocytosis with h/o ecoli bacteremia secondary to UTI/presumed prostatitis, MRSA left forearm abscess 3. CAD S/P CABG, angina pectoris 4. History of cardiac arrest S/P ICD 5. Chronic hypoxic respiratory failure with home O2 dependent COPD and pulmonary nodules 6. Type 2 diabetes mellitus - noncompliant 7. CVA 8. Acute on CKD obstructive referable to prostatism (baseline Cr 1.4-1.5) 9. Morbid obesity 10. History of RLE DVT on NOAC 11. Persistent atrial fibrillation on NOAC 12. OSAS noncompliant with cpap 13. NIRANJAN mass 14. Hyponatremia resolved PLAN: 1. Continue Demadex 100 qd and hold losartan 25 qd pending renal fxn stabilization, monitor electrolytes, replete K, Mg as you are 2. Complete abx course per C&S, BD, O2 as needed 3. Continue Carvedilol 6.25 bid, Atorvastatin 40 qhs and Xarelto 15 qPM (renal- dosing) 4. Daniel, flomax, proscar, input if allowed 5. GI prophylaxis, cpap nightly 6. Optimize glycemic control
--- NOTE | 2017-01-10 12:37 | PN ---
Progress Note, Physician History of Present Illness: pulmonary alert,s/p R thoracentesis with removal 70cc bloody fluid. pt c/o sob,-cp,+mild cough - Current Medication List Current Medications: Active Medications Carvedilol (Coreg -) 6.25 mg PO BID [facility] Last Admin: 01/10/17 12:29 Dose: 6.25 mg Docusate Sodium (Colace -) 100 mg PO TID [facility] Last Admin: 01/10/17 05:17 Dose: Not Given Gabapentin (Neurontin -) 100 mg PO BID [facility] Last Admin: 01/10/17 12:29 Dose: 100 mg Ceftriaxone Sodium 2 gm/ (Dextrose) 100 mls @ 200 mls/hr IVPB DAILY [facility] Last Admin: 01/10/17 12:30 Dose: 200 mls/hr Insulin Aspart (Novolog Mix 70/30 Vial) 15 units SQ BIDAC [facility] Last Admin: 01/10/17 06:25 Dose: Not Given Insulin Aspart (Novolog Vial Sliding Scale -) 1 vial SQ ACHS [facility] PRN Reason: Protocol Last Admin: 01/10/17 06:25 Dose: Not Given Insulin Detemir (Levemir Vial) 50 units SQ BIDI [facility] Last Admin: 01/10/17 06:25 Dose: Not Given Ranitidine HCl (Zantac -) 150 mg PO DAILY [facility] Last Admin: 01/10/17 12:29 Dose: 150 mg Rivaroxaban (Xarelto -) 15 mg PO DAILY [facility] Senna (Senna -) 2 tab PO DAILY [facility] Last Admin: 01/10/17 12:29 Dose: 2 tab Tamsulosin HCl (Flomax -) 0.4 mg PO DAILY@0830 [facility] Last Admin: 01/10/17 12:29 Dose: 0.4 mg Tiotropium [place] (Spiriva -) 1 puff IH DAILY [facility] Last Admin: 01/10/17 12:30 Dose: Not Given Torsemide (Demadex -) 100 mg PO DAILY [facility] Last Admin: 01/10/17 12:30 Dose: 100 mg Trazodone HCl (Desyrel -) 100 mg PO HS [facility] Last Admin: 01/09/17 22:04 Dose: 100 mg - Objective Vital Signs: Vital Signs Temperature 98.4 F 01/10/17 06:00 Pulse Rate 83 01/10/17 06:00 Respiratory Rate 20 01/10/17 06:00 Blood Pressure 115/59 01/10/17 06:00 O2 Sat by Pulse Oximetry (%) 90 L 01/09/17 21:00 Constitutional: Yes: Well Nourished, Calm Eyes: Yes: WNL HENT: Yes: WNL Neck: Yes: WNL Cardiovascular: Yes: Regular Rate and Rhythm, S1, S2 Respiratory: Yes: Diminished (diminished bs on r) Gastrointestinal: Yes: Normal Bowel Sounds, Soft Extremities: Yes: WNL Edema: No Labs: CBC, BMP 01/10/17 08:45 01/10/17 08:45 INR, PTT INR 1.37 (0.82-1.09) H 01/09/17 05:35 - ....Imaging Cat Scan: Report Reviewed, Image Reviewed (large loculated r pleural effusion) Problem List - Problems (1) Lung cancer Code(s): C34.90 - MALIGNANT NEOPLASM OF UNSP PART OF UNSP BRONCHUS OR LUNG (2) Acute urinary retention Code(s): R33.8 - OTHER RETENTION OF URINE (3) Anticoagulant long-term use Code(s): Z79.01 - GROUP HOME (CURRENT) USE OF 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 (4) Bladder outlet obstruction Code(s): N32.0 - BLADDER-NECK OBSTRUCTION (5) COPD (chronic obstructive pulmonary disease) Code(s): J44.9 - CHRONIC OBSTRUCTIVE PULMONARY DISEASE, UNSPECIFIED Qualifiers: Qualified Code(s): J42 - Unspecified chronic bronchitis (6) Hyperglycemia Code(s): R73.9 - HYPERGLYCEMIA, UNSPECIFIED (7) Leukocytosis Code(s): D72.829 - ELEVATED WHITE BLOOD CELL COUNT, UNSPECIFIED (8) Morbid obesity Code(s): E66.01 - MORBID (SEVERE) OBESITY DUE TO EXCESS CALORIES (9) Obstructive uropathy Code(s): N13.9 - OBSTRUCTIVE AND REFLUX UROPATHY, UNSPECIFIED (10) Pleural effusion, right Code(s): J90 - PLEURAL EFFUSION, NOT ELSEWHERE CLASSIFIED (11) CHF (congestive heart failure) Code(s): I50.9 - HEART FAILURE, UNSPECIFIED Qualifiers: (12) Acute on chronic systolic and diastolic heart failure, NYHA class 4 Code(s): I50.43 - ACUTE ON CHRONIC COMBINED SYSTOLIC AND DIASTOLIC HRT FAIL (13) COPD (chronic obstructive pulmonary disease) case management patient Code(s): [id number] - (14) Dyspnea on exertion Code(s): R06.09 - OTHER FORMS OF DYSPNEA (15) Heart failure, systolic, with acute decompensation Code(s): I50.23 - ACUTE ON CHRONIC SYSTOLIC (CONGESTIVE) HEART FAILURE (16) Hx of CABG Code(s): Z95.1 - PRESENCE OF AORTOCORONARY BYPASS GRAFT (17) Ischemic cardiomyopathy Code(s): I25.5 - ISCHEMIC CARDIOMYOPATHY (18) LV dysfunction Code(s): I51.9 - HEART DISEASE, UNSPECIFIED (19) S/P CABG (coronary artery bypass graft) Code(s): Z95.1 - PRESENCE OF AORTOCORONARY BYPASS GRAFT (20) Single implantable cardioverter-defibrillator (ICD) in situ Code(s): Z95.810 - PRESENCE OF AUTOMATIC (IMPLANTABLE) CARDIAC DEFIBRILLATOR (21) Tobacco abuse Code(s): Z72.0 - TOBACCO USE (22) Obstructive sleep apnea of adult Code(s): G47.33 - OBSTRUCTIVE SLEEP APNEA (ADULT) (PEDIATRIC) Assessment/Plan IMP DYSPNEA ACUTE ON CHRONIC CHF R PLEURAL EFFUSION BLOODY ? ETIOLOGY ?INFECTIOUS,?TRAUMATIC,?MALIGNANT COPD ON HOME O2 CHRONIC HYPOXEMIC RESPIRATORY FAILURE ASHD S/P CABG S/P CARDIAC ARREST S/P ICD OBSTRUCTIVE UROPATHY URINARY RETENTION ACUTE ON CHRONIC KIDNEY DISEASE POORLY CONTROLLED DM LUNG CA S/P RT GOUT OSAS PLAN DIURETICS O2 INHALED BRONCHODILATORS EVAL PENDING MONITOR LYTES,RENAL FUNCTION GLYCEMIC CONTROL ANTIBIOTICS PER ID CHECK RESULTS OF PLEURAL FLUID THORACIC SURGERY EVAL FOR POSSIBLE CHEST TUBE INSERTION DR BARBOSA Problem List - Problems (1) Lung cancer Code(s): C34.90 - MALIGNANT NEOPLASM OF UNSP PART OF UNSP BRONCHUS OR LUNG (2) Acute urinary retention Code(s): R33.8 - OTHER RETENTION OF URINE (3) Anticoagulant long-term use Code(s): Z79.01 - ASSISTANT CENTER DIRECTOR (CURRENT) USE OF 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 (4) Bladder outlet obstruction Code(s): N32.0 - BLADDER-NECK OBSTRUCTION (5) COPD (chronic obstructive pulmonary disease) Code(s): J44.9 - CHRONIC OBSTRUCTIVE PULMONARY DISEASE, UNSPECIFIED Qualifiers: COPD type: chronic bronchitis Chronic bronchitis type: unspecified Qualified Code(s): J42 - Unspecified chronic bronchitis (6) Hyperglycemia Code(s): R73.9 - HYPERGLYCEMIA, UNSPECIFIED (7) Leukocytosis Code(s): D72.829 - ELEVATED WHITE BLOOD CELL COUNT, UNSPECIFIED (8) Morbid obesity Code(s): E66.01 - MORBID (SEVERE) OBESITY DUE TO EXCESS CALORIES (9) Obstructive uropathy Code(s): N13.9 - OBSTRUCTIVE AND REFLUX UROPATHY, UNSPECIFIED (10) Pleural effusion, right Code(s): J90 - PLEURAL EFFUSION, NOT ELSEWHERE CLASSIFIED (11) CHF (congestive heart failure) Code(s): I50.9 - HEART FAILURE, UNSPECIFIED Qualifiers: (12) Acute on chronic systolic and diastolic heart failure, NYHA class 4 Code(s): I50.43 - ACUTE ON CHRONIC COMBINED SYSTOLIC AND DIASTOLIC HRT FAIL (13) COPD (chronic obstructive pulmonary disease) case management patient Code(s): [id number] - (14) Dyspnea on exertion Code(s): R06.09 - OTHER FORMS OF DYSPNEA (15) Heart failure, systolic, with acute decompensation Code(s): I50.23 - ACUTE ON CHRONIC SYSTOLIC (CONGESTIVE) HEART FAILURE (16) Hx of CABG Code(s): Z95.1 - PRESENCE OF AORTOCORONARY BYPASS GRAFT (17) Ischemic cardiomyopathy Code(s): I25.5 - ISCHEMIC CARDIOMYOPATHY (18) LV dysfunction Code(s): I51.9 - HEART DISEASE, UNSPECIFIED (19) S/P CABG (coronary artery bypass graft) Code(s): Z95.1 - PRESENCE OF AORTOCORONARY BYPASS GRAFT (20) Single implantable cardioverter-defibrillator (ICD) in situ Code(s): Z95.810 - PRESENCE OF AUTOMATIC (IMPLANTABLE) CARDIAC DEFIBRILLATOR (21) Tobacco abuse Code(s): Z72.0 - TOBACCO USE (22) Obstructive sleep apnea of adult Code(s): G47.33 - OBSTRUCTIVE SLEEP APNEA (ADULT) (PEDIATRIC)
[2017-01-10] MEDS: oxyCODONE HCL 5 MG TABLET PO PRN (14:56)
[2017-01-10 14:58] LABS: PLEURAL FLUID APPEARANCE CLOUDY; PLEURAL FLUID SOURCE PLEURAL
[2017-01-10 14:59] LABS: PLEURAL FLUID COLOR BLOODY
--- NOTE | 2017-01-10 15:51 | PN ---
Teaching Attending Note Name of Resident: Juan José Carbajal ATTENDING PHYSICIAN STATEMENT I saw and evaluated the patient. I reviewed the resident's note and discussed the case with the resident. I agree with the resident's findings and plan as documented. SUBJECTIVE:states his breathing has improved since thoracentesis this morning. denies CP, fever, chills, cough, N/V/C/D. states he did slip 2-3months ago in the kitchen landing into the fridge but landed on his left side. OBJECTIVE: Last Vital Signs Temp Pulse Resp BP Pulse Ox 98.6 F 92 H 22 108/54 92 L 01/10/17 10:00 01/10/17 10:00 01/10/17 10:00 01/10/17 10:00 01/10/17 10:00 General NAD CV S1 S2 RRR Lungs crackles and decreased breath sounds R base Abdomen soft NT/ND Extremities trace pitting edema ASSESSMENT AND PLAN: 61yo M wtih PMH HTN, HLD, idiopathic dilated cardiomyopathy, systolic heart failure s/p PPM/AICD, CAD s/p CABG x4, h/o DVT on Xarelto, COPD on home O2, CKD , IDDM, lung cancer s/p radiation (2017), prostatitis, MRSA abscess left forearm , hepatitis B presented to the ER with difficulty urinating and generalized weakness 1. Urinary retention- likely BPH. s/p cade placement and 2L output. has refused urologic workup in the past. urology consulted. UA negative for infection 2. Acute on CKD- likely obstructive uropathy. improvement with cade placement. d/c IVF 3. DM-A1c 14.2. not compliant at home. improved. endo consulted. cont insulin. titrate to optimize control 4. Sepsis due to suspected PNA vs complicated pleural effusion-afebrile. slight uptrend in leukocytosis. s/p thoracentesis was bloody tap. concern for malignancy. NPO tonight for chest tube placement in the AM. will hold xarelto at this time. Case d/w CT surgery. if no improvement with chest tube will need to consider VATS.will cover empiric coverage for now. on Ceftriaxone day 2. was on vanco x2days. f/u Cx. ID and pulmonary on board. 5. NSVT- noted on monitor last night. coreg dose was initially held in AM due to hypotension. dose given early this AM. no repeat episodes. will monitor 6. acute on chronic systolic CHF- clinically improved. on reduced dose of torsemide. cont strict I&O, daily weights, fluid restriction. 7. DVT on xarelto- now on hold for pending procedure 8. DVT ppx -SCD. will hold pharmacologic anticoagulation at this time for pending procedure.
--- NOTE | 2017-01-10 16:04 | CONSULT ---
Consult - text type - Consultation Consultation Note: Thoracic Consult: Hemothorax/pleural effusion 61M s/p CABG with ischemic cardiomyopathy, COPD on home oxygen, lung cancer, BPH , MMP, p/w increased sob. Found to have new right sided effusion and >50lb weight loss. Tap today c/w blood. Also had fever and urinary retention. On xarelta for DVT. PE: HD stable, 3L NC 92%, tachypnic Decreased breath sounds right CT: partially loculated right effusion with [place] c/w blood Imp/Plan: Hemothorax possibly secondary to anticoagulation and increased CHF effusion although did have fall in recent past and has cancer and unexplained weight loss -Dr. Graff to place tube tomorrow -If ineffective, will do VATS next week, probably awake as he is very high risk for general and may have prolonged ICU stay if intubated. -Discussed plan with and parents who agree with trying least invasive first. I have spent 40 minutes on this consultation including history, physical, review of imaging, with >50% spent on counseling and coordination of care including discussions with patient, Dr. Castillo, and Dr. Graff.
[2017-01-10 16:32] LABS: GLUCOSE,PLEURAL FLUID 81.006; TOTAL PROTEIN,PLEURAL FLUID 5.427
[2017-01-10 20:33] LABS: PLEURAL FLUID LYMPHOCYTES 21 %; PLEURAL FLUID NEUTROPHIL 72 %
[2017-01-10] MEDS: traZODone HCL 50 MG TABLET (FP) PO SCH (21:13)
[2017-01-11] MEDS: oxyCODONE HCL 5 MG TABLET PO PRN ×3 (00:10→21:26)
[2017-01-11] MEDS: DOCUSATE SODIUM 100 MG CAPSULE (FP) PO SCH ×3 (05:26→21:26)
[2017-01-11] MEDS: INSULIN DETEMIR 100 UNITS/ML MDV SQ SCH ×2 (06:08→16:49)
[2017-01-11] MEDS: INSULIN SLIDING SCALE (NOVOLOG) 1 VIAL SQ SCH ×4 (06:08→21:27)
[2017-01-11] MEDS: INSULIN (NOVOLOG MIX 70/30) 100 UNITS/ML MDV SQ SCH ×2 (06:08→16:49)
[2017-01-11 07:53] LABS: MCH 30.1 pg (25.7-33.7); MCHC 33.1 g/dl (32.0-35.9); MEAN CELL VOLUME 90.8 fl (80-96); MEAN PLT VOLUME 9.1 fl (7.5-11.1); PLATELET COUNT 154 K/MM3 (134-434); RDW 14.9 % (11.9-15.9); WHITE BLOOD COUNT 16.4 K/mm3 (4.0-10.0)
[2017-01-11 08:47] LABS: ALBUMIN 2.4 g/dl (3.4-5.0); ANION GAP 11 (8-16); CO2 27 mmol/L (21-32); GLUCOSE,RANDOM 142 mg/dL (74-106); MAGNESIUM 2.8 mg/dL (1.8-2.4)
[2017-01-11 08:50] LABS: ALK PHOS 523 U/L (45-117); BILIRUBIN,TOTAL 0.9 mg/dL (0.2-1.0); PHOSPHOROUS 5.4 mg/dL (2.5-4.9); SGOT/AST 40 U/L (15-37); SGPT/ALT 42 U/L (12-78); TOT PROT 7.4 g/dl (6.4-8.2)
--- NOTE | 2017-01-11 09:00 | PN ---
Progress Note, Physician Chief Complaint: S/P thoracentesis now awaits drain via interventional radiology Complains of SOB History of Present Illness: Patient was seen and examined. Awake and alert. Chart was reviewed Denies chest pain or palpitation. Anxious - Current Medication List Current Medications: Active Medications Carvedilol (Coreg -) 6.25 mg PO BID [facility] Last Admin: 01/10/17 21:13 Dose: 6.25 mg Docusate Sodium (Colace -) 100 mg PO TID [facility] Last Admin: 01/11/17 05:26 Dose: Not Given Gabapentin (Neurontin -) 100 mg PO BID [facility] Last Admin: 01/10/17 21:13 Dose: 100 mg Ceftriaxone Sodium 2 gm/ (Dextrose) 100 mls @ 200 mls/hr IVPB DAILY [facility] Last Admin: 01/10/17 12:30 Dose: 200 mls/hr Insulin Aspart (Novolog Mix 70/30 Vial) 15 units SQ BIDAC [facility] Last Admin: 01/11/17 06:08 Dose: Not Given Insulin Aspart (Novolog Vial Sliding Scale -) 1 vial SQ ACHS [facility] PRN Reason: Protocol Last Admin: 01/11/17 06:08 Dose: Not Given Insulin Detemir (Levemir Vial) 50 units SQ BIDI [facility] Last Admin: 01/11/17 06:08 Dose: Not Given Oxycodone HCl (Roxicodone -) 5 mg PO Q6H PRN PRN Reason: PAIN Last Admin: 01/11/17 00:10 Dose: 5 mg Ranitidine HCl (Zantac -) 150 mg PO DAILY [facility] Last Admin: 01/10/17 12:29 Dose: 150 mg Senna (Senna -) 2 tab PO DAILY [facility] Last Admin: 01/10/17 12:29 Dose: 2 tab Tamsulosin HCl (Flomax -) 0.4 mg PO DAILY@0830 [facility] Last Admin: 01/10/17 12:29 Dose: 0.4 mg Tiotropium [place] (Spiriva -) 1 puff IH DAILY [facility] Last Admin: 01/10/17 12:30 Dose: Not Given Torsemide (Demadex -) 100 mg PO DAILY [facility] Last Admin: 01/10/17 12:30 Dose: 100 mg Trazodone HCl (Desyrel -) 100 mg PO HS [facility] Last Admin: 01/10/17 21:13 Dose: 100 mg - Objective Vital Signs: Vital Signs Temperature 97.5 F L 01/11/17 06:00 Pulse Rate 86 01/11/17 06:00 Respiratory Rate 18 01/11/17 06:00 Blood Pressure 105/59 01/11/17 06:00 O2 Sat by Pulse Oximetry (%) 92 L 01/10/17 21:00 Cardiovascular: Yes: Regular Rate and Rhythm, S1, S2 Respiratory: Yes: Diminished Gastrointestinal: Yes: Normal Bowel Sounds, Soft, Abdomen, Obese. No: Tenderness Edema: No Psychiatric: Yes: Alert, Oriented, Other (anxious) Additional Findings/Remarks: - Review of Systems Constitutional: denies: Chills, Fever Cardiovascular: reports: Shortness of Breath. denies: Chest Pain, Palpitations Respiratory: reports: Cough, SOB. (+) Hemoptysis, (-) Orthopnea, PND Gastrointestinal: denies: Abdominal Pain, Constipation, Diarrhea, Melena, Nausea , Rectal Bleeding, Vomiting Genitourinary: denies: Dysuria Neurological: denies: Dizziness, Headache, Seizure, Syncope Labs: CBC, BMP 01/11/17 06:30 01/11/17 06:30 INR, PTT INR 1.37 (0.82-1.09) H 01/09/17 05:35 Assessment/Plan 1. Severe LV systolic failure with NYHA classification 3-4 heart failure with ischemic cardiomyopathy and pulmonary HTN + right pleural effusion post thoracentesis now awaits chest tube/drain insertion 2. Bladder outlet obstruction and leukocytosis with h/o E coli bacteremia secondary to UTI/presumed prostatitis and MRSA left forearm abscess 3. CAD S/P CABG, angina pectoris 4. History of cardiac arrest S/P ICD 5. Chronic hypoxic respiratory failure with home O2 dependent COPD and pulmonary nodules 6. Type 2 diabetes mellitus - noncompliant 7. CVA 8. Acute on CKD 9. Morbid obesity 10. History of RLE DVT on NOAC 11. Persistent atrial fibrillation on NOAC 12. OSAS noncompliant with CPAP 13. NIRANJAN mass 14. Hyponatremia resolved PLAN: 1. Continue Demadex 100 qd. Losartan is held pending renal function recovery. Monitor electrolytes 2. Complete antibiotic course 3. Continue Carvedilol 6.25 bid, Atorvastatin 40 qhs and Xarelto 15 qPM (renal- dosing) 4. GI prophylaxis and continue CPAP as tolerated 5. Proceed with chest tube/drain, however; if it is ineffective, he will need VATS as per thoracic surgery Further plans are to follow Leonel Hawley MD
--- NOTE | 2017-01-11 10:09 | PN ---
Progress Note (short form) - Note Progress Note: ID Vanccomycin and Ceftriaxone Selected Entries 01/11/17 06:00 Temperature 97.5 F L Pulse Rate 86 Respiratory 18 Rate Blood Pressure 105/59 Microbiology 01/10/17 11:30 Pleural Fluid Gram Stain - Final 01/08/17 11:50 Urine - Urine - Catheterized Urine Culture - Final NO GROWTH OBTAINED 01/08/17 11:50 Urine - Urine - Catheterized Legionella Antigen - Final 01/08/17 11:50 Urine - Urine - Catheterized Streptococcus pneumoniae Antigen (M - Final 01/08/17 11:50 Nares - Mrsa Screen - Left MRSA Screen - Final NO MRSA ISOLATED 01/10/17 11:30 Pleural Fluid HEMANT Preparation - Preliminary 01/10/17 11:30 Pleural Fluid Fungal Culture - Preliminary 01/10/17 11:30 Pleural Fluid AFB Smear Concentration - Preliminary 01/10/17 11:30 Pleural Fluid Mycobacterial Culture - Preliminary 01/08/17 04:33 Blood - Peripheral Venous Blood Culture - Preliminary NO GROWTH OBTAINED AFTER 72 HOURS, INCUBATION TO CONTINUE FOR 2 DAYS. 01/08/17 04:18 Blood - Peripheral Venous Blood Culture - Preliminary NO GROWTH OBTAINED AFTER 72 HOURS, INCUBATION TO CONTINUE FOR 2 DAYS. Laboratory Tests 01/10/17 01/10/17 01/11/17 11:30 11:30 06:30 WBC 16.4 H Hgb 12.2 Hct 37.0 Plt Count 154 BUN Creatinine Creat Clearance w eGFR AST ALT Alkaline Phosphatase Pleural pH 7.5 Pleural WBC 4,045 Pleural RBC 435,148 Pleural Total Protein 5.427 Pleural Albumin 2 Pleural LDH 571.98 01/11/17 06:30 WBC Hgb Hct Plt Count BUN 70 H Creatinine 2.0 H Creat Clearance w eGFR 34.14 AST 40 H D ALT 42 D Alkaline Phosphatase 523 H D Pleural pH Pleural WBC Pleural RBC Pleural Total Protein Pleural Albumin Pleural LDH Assessment Suspect malignant pleural effusion Plan Would stop antibiotics if culture no growth whcih it will likley be IR intervention this am Sonogram liver ( cirrhosis) Alk pos 523 Mary TREJO
[2017-01-11] MEDS ORDERED: PT OWN MED DRAWER 7, Y5N ONE ×2 (11:54→16:47)
[2017-01-11] MEDS: RANITIDINE HCL 150 MG TABLET (FP) PO SCH (12:00)
[2017-01-11] MEDS: TAMSULOSIN HCL 0.4 MG CAP.ER.24H (FP) PO SCH (12:00)
[2017-01-11] MEDS: GABAPENTIN 100 MG CAPSULE (FP) PO SCH ×2 (12:00→21:26)
[2017-01-11] MEDS: CEFTRIAXONE 2 GM in DEXTROSE 5%-WATER - 100 ML IVPB SCH (12:01)
[2017-01-11] MEDS: SENNOSIDES 8.6MG TABLET (FP) PO SCH (12:01)
[2017-01-11] MEDS: CARVEDILOL 6.25 MG TABLET (FP) PO SCH ×2 (13:11→21:27)
[2017-01-11] MEDS: TORSEMIDE 100 MG TABLET PO SCH (13:12)
--- NOTE | 2017-01-11 13:40 | PN ---
Physical Exam: SUBJECTIVE: Patient seen and examined. Doing better. Though overnight nurses state patient was mildly SOB. Currently asymptomatic. No CP, no SOB. no pain OBJECTIVE: Vital Signs Period Temp Pulse Resp BP Sys/Mcconnell Pulse Ox Last 24 Hr 97.5 F-98.7 F 86-105 18-32 86-112/50-62 92-97 GEN: Somnolent, does not appear in acute distress HEENT: No cervical LAD, no rashes, unable to assess JVD due to body habitus CV: S1, S2, RRR LUNG: Unable to appreciate posterior lung exam, grossly clear anteriorly ABD: Soft, NT, ND, obese MSK: Venous stasis changes on both legs, no edema Active Medications Generic Name Dose Route Start Last Admin Trade Name Freq PRN Reason Stop Dose Admin Carvedilol 6.25 mg 01/08/17 21:52 01/11/17 13:11 Coreg - PO 6.25 mg BID [facility] Administration Docusate Sodium 100 mg 01/08/17 22:03 01/11/17 05:26 Colace - PO Not Given TID [facility] Gabapentin 100 mg 01/09/17 22:00 01/11/17 12:00 Neurontin - PO 100 mg BID [facility] Administration Ceftriaxone Sodium 2 gm/ 100 mls @ 200 mls/hr 01/10/17 10:00 01/11/17 12:01 Dextrose IVPB 200 mls/hr DAILY [facility] Administration Insulin Aspart 15 units 01/09/17 16:30 01/11/17 06:08 Novolog Mix 70/30 Vial SQ Not Given BIDAC [facility] Insulin Aspart 1 vial 01/09/17 16:30 01/11/17 11:58 Novolog Vial Sliding Scale - SQ 2 units ACHS [facility] Administration Protocol Insulin Detemir 50 units 01/09/17 16:30 01/11/17 06:08 Levemir Vial SQ Not Given BIDI [facility] Oxycodone HCl 5 mg 01/10/17 14:03 01/11/17 11:56 Roxicodone - PO 5 mg Q6H PRN Administration PAIN Ranitidine HCl 150 mg 01/10/17 10:00 01/11/17 12:00 Zantac - PO 150 mg DAILY [facility] Administration Senna 2 tab 01/09/17 10:00 01/11/17 12:01 Senna - PO Not Given DAILY [facility] Tamsulosin HCl 0.4 mg 01/10/17 08:30 01/11/17 12:00 Flomax - PO 0.4 mg DAILY@0830 [facility] Administration Tiotropium [place] 1 puff 01/10/17 10:00 01/10/17 12:30 Spiriva - IH Not Given DAILY [facility] Torsemide 100 mg 01/09/17 10:00 01/11/17 13:12 Demadex - PO 100 mg DAILY [facility] Administration Trazodone HCl 100 mg 01/08/17 22:00 01/10/17 21:13 Desyrel - PO 100 mg HS [facility] Administration ASSESSMENT/PLAN: Mr. Holley is a 61yo M with PMHx of Ischemic cardiomyopathy, Systolic CHF, AICD s/ p cardiac arrest, COPD on home O2, BPH on Flomax. He presented to the ER with 2- 3 day hx of generalized weakness and fatigue, found to be in acute decompensated CHF and possible Pneumonia # Right Hemothorax - Possibly secondary to anticoagulation vs malignant effusion. Increased in size during admission. Xarelto held. CT surgery on board. Chest tube placed draining brinda blood. Will likely get CXR tomorrow AM to assess size of effusion. If ineffective, will move fwd with VATS. Abx for PNA will likely be discontinued tmrw if pleural cultures are negative. # Hx of DVT - Prior notes have differing reasons for why patient was on Xarelto. As per vascular clinic, he was started due to DVT in R gastrocnemius vein in Apr 2016. In July, he had BLLE duplex which shows no DVT. Need to discuss w/ vascular tmrw if Xarelto can be held upon d/c # Ischemic Cardiomyopathy - Pt has AICD. Continue Torsemide 100mg QD, net I&O negative so far, not fluid overloaded. Coreg 6.25 BID with holding parameters. BP is improving # Uncontrolled DM2 - A1C 14.2, Endocrine following, held insulin this AM since NPO. Otherwise on Levemir 50u BID + Novolog 70/30 15u BIDAC + SSI. # Elevated ALP - No abdominal pain, known to have cirrhotic liver on imaging # Chronic Back Pain - Placed on Oxycodone 5mg Q6H PRN, has used it at home with relief. # MARCIAL on CKD - Could be secondary to post-obstructive, improving with cade # Urinary Retention - Likely from BPH, UA negative. Continue Flomax 0.4mg daily and cade, Urology on board due to urinary retention # Hx of COPD - On home O2 3L RTC, Continue Spiriva daily # Hx of Gout - Not on home Allopurinol due to MARCIAL # Hx of MDD - Continue Trazodone 100mg HS # Diabetic Neuropathy - Gabapentin 100 BID # Hx of Constipation - Continue Docusate and Senna # Hx of Allergies - Continue Ranitidine # FEN - Not on fluids, elec, diabetic low sodium diet # PPx - On Xarelto, no GI needed, PT ordered # Dispo - Assess hemothorax with CXR. If not improves, will move fwd with VATS procedure. Holding AC for now. d/w Dr Lavonne Carbajal MD - PGY1 Internal Medicine Visit type - Emergency Visit Emergency Visit: No - New Patient This patient is new to me today: No - Critical Care Critical Care patient: No - Discharge Referral Referred to [facility] No
--- NOTE | 2017-01-11 15:16 | PN ---
Progress Note (short form) - Note Progress Note: PULMONARY s/p pigtail catheter drain placement with improvement in breathing. Last Vital Signs Temp Pulse Resp BP Pulse Ox 97.5 F L 105 H 28 H 93/58 95 01/11/17 06:00 01/11/17 11:00 01/11/17 11:00 01/11/17 11:00 01/11/17 11:00 Gen: NAD at rest Heart: tachycardic, regular Lung: decreased breath sounds at the bases Abd: soft, nontender Ext: no edema Chest tube: dark bloody drainage CBC, BMP 01/11/17 06:30 01/11/17 06:30 Active Medications Carvedilol (Coreg -) 6.25 mg PO BID [facility] Last Admin: 01/11/17 13:11 Dose: 6.25 mg Docusate Sodium (Colace -) 100 mg PO TID [facility] Last Admin: 01/11/17 14:19 Dose: Not Given Gabapentin (Neurontin -) 100 mg PO BID [facility] Last Admin: 01/11/17 12:00 Dose: 100 mg Ceftriaxone Sodium 2 gm/ (Dextrose) 100 mls @ 200 mls/hr IVPB DAILY [facility] Last Admin: 01/11/17 12:01 Dose: 200 mls/hr Insulin Aspart (Novolog Mix 70/30 Vial) 15 units SQ BIDAC [facility] Last Admin: 01/11/17 06:08 Dose: Not Given Insulin Aspart (Novolog Vial Sliding Scale -) 1 vial SQ ACHS [facility] PRN Reason: Protocol Last Admin: 01/11/17 11:58 Dose: 2 units Insulin Detemir (Levemir Vial) 50 units SQ BIDI [facility] Last Admin: 01/11/17 06:08 Dose: Not Given Oxycodone HCl (Roxicodone -) 5 mg PO Q6H PRN PRN Reason: PAIN Last Admin: 01/11/17 11:56 Dose: 5 mg Ranitidine HCl (Zantac -) 150 mg PO DAILY [facility] Last Admin: 01/11/17 12:00 Dose: 150 mg Senna (Senna -) 2 tab PO DAILY [facility] Last Admin: 01/11/17 12:01 Dose: Not Given Tamsulosin HCl (Flomax -) 0.4 mg PO DAILY@0830 [facility] Last Admin: 01/11/17 12:00 Dose: 0.4 mg Tiotropium [place] (Spiriva -) 1 puff IH DAILY [facility] Last Admin: 01/10/17 12:30 Dose: Not Given Torsemide (Demadex -) 100 mg PO DAILY [facility] Last Admin: 01/11/17 13:12 Dose: 100 mg Trazodone HCl (Desyrel -) 100 mg PO HS [facility] Last Admin: 01/10/17 21:13 Dose: 100 mg A/P Hemothorax LV Systolic Heart Failure Pulmonary HTN Lung Mass CAD COPD Chronic Hypoxic Respiratory Failure h/o CVA Acute on Chronic Renal Failure h/o DVT Atrial Fibrillation - monitor drain output - repeat CXR in AM - O2 to keep SpO2 >90% - pain control - if no improvement with pigtail may need VATS
[2017-01-11] MEDS: TIOTROPIUM BROMIDE 18 MCG/INH (DEVICE W/ 5 CAPSULES) IH SCH (16:45)
[2017-01-11] MEDS ORDERED: INSULIN (NOVOLOG) ASPART 100 UNITS/ML 10ML VIAL ONE ×3 (16:48→21:15)
[2017-01-11] MEDS ORDERED: INSULIN DETEMIR 100 UNITS/ML MDV SQ ONE (17:32)
[2017-01-11] MEDS ORDERED: INSULIN (NOVOLOG MIX 70/30) 100 UNITS/ML MDV SQ ONE (17:32)
--- NOTE | 2017-01-11 17:48 | PN ---
Teaching Attending Note Name of Resident: Juan José Carbajal ATTENDING PHYSICIAN STATEMENT I saw and evaluated the patient. I reviewed the resident's note and discussed the case with the resident. I agree with the resident's findings and plan as documented. SUBJECTIVE:feeling better. denies Cp, SOB, fever, chills, N/V/C/D. requesting cade removal claims he is compliant with medications especially blood thinner. states it was only insulin he was not complaint with because he did not want to deal with it but claims for the past week he has been taking it with controlled sugars. OBJECTIVE: Last Vital Signs Temp Pulse Resp BP Pulse Ox 97.5 F L 105 H 28 H 93/58 95 01/11/17 06:00 01/11/17 11:00 01/11/17 11:00 01/11/17 11:00 01/11/17 11:00 General NAD CV S1 S2 RRR Lungs crackles and decreased breath sounds R base Abdomen soft NT/ND Extremities no pitting edema ASSESSMENT AND PLAN: 61yo M wtih PMH HTN, HLD, idiopathic dilated cardiomyopathy, systolic heart failure s/p PPM/AICD, CAD s/p CABG x4, h/o DVT on Xarelto, COPD on home O2, CKD , IDDM, lung cancer s/p radiation (2017), prostatitis, MRSA abscess left forearm , hepatitis B presented to the ER with difficulty urinating and generalized weakness 1. Urinary retention- likely BPH. s/p cade placement and 2L output. has refused urologic workup in the past. urology consulted. UA negative for infection. on flomax. if kidney function improves tomorrow will remove cade with voiding trial. 2. Acute on CKD- likely obstructive uropathy. improvement with cade placement. will consider removing cade in the AM. 3. DM-A1c 14.2. not compliant at home. improved. endo consulted. cont insulin. titrate to optimize control 4. Sepsis due to suspected PNA vs complicated pleural effusion-afebrile. s/p chest tube placement today. sangenous drainage. monitor with daily CXR. hold xarelto. f/u Cx if negative plan is to d/c abx tomorrow. CT surgery, ID and pulmonary on board. 5. NSVT- no repeat events. cont current medications. 6. acute on chronic systolic CHF- clinically improved. on reduced dose of torsemide. cont strict I&O, daily weights, fluid restriction. 7. DVT on xarelto- now on hold for pending procedure. will need to verify if this is still necessary at this time. 8. DVT ppx -SCD. will hold pharmacologic anticoagulation at this time for pending procedure.
[2017-01-11] MEDS: traZODone HCL 50 MG TABLET (FP) PO SCH (21:27)
[2017-01-12] MEDS ORDERED: oxyCODONE HCL 5 MG TABLET PO ONE (02:21)
[2017-01-12] MEDS ORDERED: INSULIN (NOVOLOG) ASPART 100 UNITS/ML 10ML VIAL ONE ×3 (06:15→22:00)
[2017-01-12] MEDS: DOCUSATE SODIUM 100 MG CAPSULE (FP) PO SCH ×3 (06:18→22:16)
[2017-01-12] MEDS: INSULIN SLIDING SCALE (NOVOLOG) 1 VIAL SQ SCH ×4 (06:24→22:17)
[2017-01-12] MEDS: INSULIN (NOVOLOG MIX 70/30) 100 UNITS/ML MDV SQ SCH ×2 (06:52→17:42)
[2017-01-12] MEDS: INSULIN DETEMIR 100 UNITS/ML MDV SQ SCH ×2 (06:52→17:43)
[2017-01-12 07:09] LABS: MCH 29.9 pg (25.7-33.7); MEAN CELL VOLUME 90.7 fl (80-96); PLATELET COUNT 141 K/MM3 (134-434); RDW 14.8 % (11.9-15.9); WHITE BLOOD COUNT 15.2 K/mm3 (4.0-10.0)
[2017-01-12 07:53] LABS: ALK PHOS 444 U/L (45-117); ANION GAP 8 (8-16); BILIRUBIN,TOTAL 0.9 mg/dL (0.2-1.0); CALCIUM 8.2 mg/dL (8.5-10.1); CO2 29 mmol/L (21-32); GLUCOSE,RANDOM 108 mg/dL (74-106); SGOT/AST 24 U/L (15-37); SGPT/ALT 30 U/L (12-78); TOT PROT 6.7 g/dl (6.4-8.2)
--- NOTE | 2017-01-12 08:18 | PN ---
Physical Exam: SUBJECTIVE: Patient seen and examined. States he still has incisional pain but s /p oxycodone he has improved. Breathing is stable. No CP. OBJECTIVE: Vital Signs Period Temp Pulse Resp BP Sys/Mcconnell Pulse Ox Last 24 Hr 97.5 F-98.5 F 79-105 18-32 86-115/48-61 90-97 GEN: AAOx3, not in acute distress HEENT: PERRLA, EOMi CV: S1, S2, RRR LUNG: Unable to appreciate posterior lung exam, grossly clear anteriorly ABD: Soft, NT, ND, obese MSK: Venous stasis changes on both legs, no edema Active Medications Generic Name Dose Route Start Last Admin Trade Name Freq PRN Reason Stop Dose Admin Carvedilol 6.25 mg 01/08/17 21:52 01/12/17 10:12 Coreg - PO 6.25 mg BID [facility] Administration Docusate Sodium 100 mg 01/08/17 22:03 01/12/17 14:04 Colace - PO 100 mg TID [facility] Administration Gabapentin 100 mg 01/09/17 22:00 01/12/17 10:12 Neurontin - PO 100 mg BID [facility] Administration Heparin Sodium (Porcine) 5,000 unit 01/12/17 22:00 Heparin - SQ 01/13/17 09:00 BID [facility] Ceftriaxone Sodium 2 gm/ 100 mls @ 200 mls/hr 01/10/17 10:00 01/12/17 10:11 Dextrose IVPB 200 mls/hr DAILY [facility] Administration Insulin Aspart 15 units 01/09/17 16:30 01/12/17 06:52 Novolog Mix 70/30 Vial SQ 15 units BIDAC [facility] Administration Insulin Aspart 1 vial 01/09/17 16:30 01/12/17 11:25 Novolog Vial Sliding Scale - SQ Not Given ACHS [facility] Protocol Insulin Detemir 50 units 01/09/17 16:30 01/12/17 06:52 Levemir Vial SQ 50 units BIDI [facility] Administration Oxycodone HCl 5 mg 01/10/17 14:03 01/12/17 11:30 Roxicodone - PO 5 mg Q6H PRN Administration PAIN Ranitidine HCl 150 mg 01/10/17 10:00 01/12/17 10:12 Zantac - PO 150 mg DAILY [facility] Administration Rivaroxaban 15 mg 01/13/17 10:00 Xarelto - PO DAILY [facility] Senna 2 tab 01/09/17 10:00 01/12/17 10:12 Senna - PO 2 tab DAILY [facility] Administration Tamsulosin HCl 0.4 mg 01/10/17 08:30 01/12/17 10:12 Flomax - PO 0.4 mg DAILY@0830 [facility] Administration Tiotropium [place] 1 puff 01/10/17 10:00 01/12/17 10:12 Spiriva - IH 1 puff DAILY [facility] Administration Torsemide 100 mg 01/09/17 10:00 01/12/17 10:11 Demadex - PO 100 mg DAILY [facility] Administration Trazodone HCl 100 mg 01/08/17 22:00 01/11/17 21:27 Desyrel - PO 100 mg HS [facility] Administration ASSESSMENT/PLAN: Mr. Holley is a 61yo M with PMHx of Ischemic cardiomyopathy, Systolic CHF, AICD s/ p cardiac arrest, COPD on home O2, BPH on Flomax. He presented to the ER with 2- 3 day hx of generalized weakness and fatigue, found to be in acute decompensated CHF and possible Pneumonia # Right Hemothorax - Possibly secondary to anticoagulation vs malignant effusion. Increased in size during admission. Xarelto held. CT surgery on board. Chest tube placed draining brinda blood. CXR f/u shows some resolution but still appears to be a loculated component. Daily CXR to assess resolution but likely patient needs VATS. Pre-plan for Sunday. Cardiology clearance pending. Antibiotics to be d/ c'd once pleural cultures are negative # Acute Hypoxic Respiratory Failure - O2 sats have been low 90s, at times high 80s. Now on ventimask. Patient has no difficulty breathing, but tends to desaturate at night time, possible OHS vs CHRISTINA. If continues to desaturate while awake consider ABG. # Hx of DVT - Patient on Xarelto for R DVT and paroxsymal Afib with high risk of stroke and DVT formation. Discussed with Cardiology and CT surgery, ok to start anticoagulation. Will start Xarelto tomorrow. # Ischemic Cardiomyopathy - Pt has AICD. Continue Torsemide 100mg QD, net I&O negative so far, not fluid overloaded. Coreg 6.25 BID with holding parameters. BP is improving # Urinary Retention - Likely from BPH, UA neg. Continue Flomax 0.4mg daily, voiding trial # Uncontrolled DM2 - A1C 14.2, Endocrine following, BGMs 119-226. Continue Levemir 50u BID + Novolog 70/30 15u BIDAC + SSI. # Elevated ALP - Resolving, likely 2/2 cirrhotic liver # Chronic Back Pain - Placed on Oxycodone 5mg Q6H PRN, has used it at home with relief. # MARCIAL on CKD - Likely from obstructive uropathy, improved with cade, stable. # Hx of COPD - On home O2 3L RTC, Continue Spiriva daily # Hx of Gout - Not on home Allopurinol due to MARCIAL # Hx of MDD - Continue Trazodone 100mg HS # Diabetic Neuropathy - Gabapentin 100 BID # Hx of Constipation - Continue Docusate and Senna # Hx of Allergies - Continue Ranitidine # FEN - Not on fluids, elec, diabetic low sodium diet # PPx - HSQ BID until Xarelto tmrw, no GI needed, PT ordered # Dispo - Since CXR still shows loculated component, will need to f/u with CT surgery about moving forward with VATS. WIll get PT to see patient. María d/linnette. d/w Dr Lavonne Carbajal MD - PGY1 Internal Medicine Visit type - Emergency Visit Emergency Visit: No - New Patient This patient is new to me today: No - Critical Care Critical Care patient: No - Discharge Referral Referred to [id number] No
--- NOTE | 2017-01-12 09:22 | CON.GU ---
Consult Consult Specialty:: Referred by:: medicine Reason for Consultation:: urinary retention - History of Present Illness Chief Complaint: urinary retention History of Present Illness: Patient is a 61 year old male who was admitted with lower extermity weakness and an inability to urinate. Daniel cath was placed on admission. Unable to get a complete history from the patient. On CAT scan he has evidence of an enlarged prostate and thickened bladder wall consistent with bladder outlet obstruction. - History Source History Provided By: Patient, Family Member, Medical Record Limitations to Obtaining History: Other - Past Medical History [employer]: Yes: CVA, Other (Anoxic brain damage when suffered cardiac arrest requiring 10 days of induced coma at [facility]. ) Cardio/Vascular: Yes: CAD, CHF (s/p defibrillator for cardiac arrest and low LVEF), Deep Vein Thrombosis, HTN, Hyperlipdemia, [place], Mitral Insufficiency, Other (Ischemic cardiomyopathy, s/p CABG) Pulmonary: Yes: Cancer (undocumented cell type), COPD Gastrointestinal: Yes: Ascites Hepatobiliary: Yes: Cirrhosis, Cholelithiasis, Hepatitis B, Other Renal/: Yes: Renal Inusuff, BPH, UTI, Other Infectious Disease: Yes: Other (Chronic lower extremity bilateral cellulitis ) Rheumatology: Yes: Gout, Other (left rotator cuff tear) ENT: Yes: Other (Use a hearing aid in the left ear that uis currently low in battery) Endocrine: Yes: Diabetes Mellitus Additional Medical History: Has poor vision in both eyes, worse on the right eye - Past Surgical History Past Surgical History: Yes: AICD, CABG, Joint Replacement - Alcohol/Substance Use Hx Alcohol Use: No History of Substance Use: reports: None - Smoking History Smoking history: Current some day smoker Have you smoked in the past 12 months: No Aproximately how many cigarettes per day: 3 If you are a former smoker, when did you quit?: 2008 - Social History Usual Living Arrangement: With Spouse ADL: Independent 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, 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 Travel: No Home Medications - Allergies Allergies/Adverse Reactions: Allergies Allergy/AdvReac Type Severity Reaction Status Date / Time Iodinated Contrast- Oral and Allergy Verified 01/08/17 04:58 IV Dye [Iodinated Contrast Media - IV Dye] raw fruits/vegetables Allergy Intermediate Rash Uncoded 01/08/17 04:58 celery Allergy Uncoded 01/08/17 04:58 iv contrast dye Allergy Uncoded 01/08/17 04:58 melon Allergy Uncoded 01/08/17 04:58 pepper Allergy Uncoded 01/08/17 04:58 raw apples Allergy Uncoded 01/08/17 04:58 raw carrots Allergy Uncoded 01/08/17 04:58 Raw cherries Allergy Uncoded 01/08/17 04:58 - Home Medications Home Medications: Ambulatory Orders Allopurinol [Zyloprim -] 100 mg PO BID 09/05/16 Calcium Carbonate 600 mg PO DAILY 09/05/16 Carvedilol 6.25 mg PO BID 09/05/16 Cholecalciferol (Vitamin D3) [Cholecalciferol] 1,000 unit MC DAILY 09/05/16 Colchicine 0.6 mg PO DAILY 09/05/16 Docusate Sodium 100 mg PO TID 09/05/16 Famotidine/Ca Carb/Mag Hydrox [Pepcid Complete Tablet Chew] 1 each PO DAILY Gabapentin [Neurontin -] 100 mg PO BID 09/05/16 Insulin Regular, Human [Humulin R U-500 Kwikpen] 30 unit SQ DAILY 09/05/16 Liraglutide [Victoza -] 1.8 mg SQ DAILY@0700 09/05/16 Oxycodone HCl/Acetaminophen [Percocet 5-325 mg Tablet] 1 tab PO Q6H 09/05/16 Rivaroxaban [Xarelto -] 15 mg PO DAILY 09/05/16 Sennosides [Senno] 2 tab PO DAILY 09/05/16 Tamsulosin HCl 0.4 mg PO DAILY 09/05/16 Torsemide 100 mg PO BID 09/05/16 Ranitidine [Zantac -] 150 mg PO DAILY #0 tablet 09/08/16 Chantix 1 tab PO BID 12/04/16 Tiotropium [place] [Spiriva] 1 inh PO DAILY 01/08/17 Trazodone HCl [Desyrel -] 100 mg PO HS 01/08/17 Family Disease History - Family Disease History Family Disease History: CA: Father (bilateral kidney cancers), Mother (skin cancer), Other: Father, Mother, Brother, Sister Review of Systems - Review of Systems Genitourinary: reports: Frequency. denies: Dysuria, Flank Pain, Hematuria, Incontinence, Pain, Testicular Mass Physical Exam- Vital Signs: Vital Signs Temperature 97.5 F L 01/12/17 05:41 Pulse Rate 79 01/12/17 05:41 Respiratory Rate 18 01/12/17 05:41 Blood Pressure 105/52 01/12/17 05:41 O2 Sat by Pulse Oximetry (%) 90 L 01/11/17 21:00 Renal/: No: Bladder Distention, CVA Tenderness - Left, CVA Tenderness - Right , Daniel Present, Hematuria, Incontinence Labs: CBC, BMP 01/12/17 07:00 01/12/17 07:00 Imaging - Results Cat Scan: Report Reviewed Problem List - Problems (1) Benign localized hyperplasia of prostate with urinary obstruction Assessment/Plan: pre existing BPH with new onset weakness. trial of void. Flomax. Code(s): N40.1 - BENIGN PROSTATIC HYPERPLASIA WITH LOWER URINARY TRACT SYMP; N13.8 - OTHER OBSTRUCTIVE AND REFLUX UROPATHY
--- NOTE | 2017-01-12 09:54 | PN ---
Progress Note (short form) - Note Progress Note: Thoracic attending: Tube placed safely. Needs daily flushing. Will see if drains. If does not will need VATS with general anesthesia. Please have cardiology optimize and risk- stratify for general anesthesia. OK to start DVT prophylaxis but since this is hemothorax would not fully anticoagulate.
[2017-01-12] MEDS: CEFTRIAXONE 2 GM in DEXTROSE 5%-WATER - 100 ML IVPB SCH (10:11)
[2017-01-12] MEDS: TORSEMIDE 100 MG TABLET PO SCH (10:11)
[2017-01-12] MEDS: TAMSULOSIN HCL 0.4 MG CAP.ER.24H (FP) PO SCH (10:12)
[2017-01-12] MEDS: TIOTROPIUM BROMIDE 18 MCG/INH (DEVICE W/ 5 CAPSULES) IH SCH (10:12)
[2017-01-12] MEDS: GABAPENTIN 100 MG CAPSULE (FP) PO SCH ×2 (10:12→22:16)
[2017-01-12] MEDS: CARVEDILOL 6.25 MG TABLET (FP) PO SCH ×2 (10:12→22:16)
[2017-01-12] MEDS: RANITIDINE HCL 150 MG TABLET (FP) PO SCH (10:12)
[2017-01-12] MEDS: SENNOSIDES 8.6MG TABLET (FP) PO SCH (10:12)
--- NOTE | 2017-01-12 10:55 | PN ---
Progress Note, Physician History of Present Illness: Right chest tube placed. - Current Medication List Current Medications: Active Medications Carvedilol (Coreg -) 6.25 mg PO BID [facility] Last Admin: 01/12/17 10:12 Dose: 6.25 mg Docusate Sodium (Colace -) 100 mg PO TID [facility] Last Admin: 01/12/17 06:18 Dose: 100 mg Gabapentin (Neurontin -) 100 mg PO BID [facility] Last Admin: 01/12/17 10:12 Dose: 100 mg Ceftriaxone Sodium 2 gm/ (Dextrose) 100 mls @ 200 mls/hr IVPB DAILY [facility] Last Admin: 01/12/17 10:11 Dose: 200 mls/hr Insulin Aspart (Novolog Mix 70/30 Vial) 15 units SQ BIDAC [facility] Last Admin: 01/12/17 06:52 Dose: 15 units Insulin Aspart (Novolog Vial Sliding Scale -) 1 vial SQ ACHS [facility] PRN Reason: Protocol Last Admin: 01/12/17 06:24 Dose: Not Given Insulin Detemir (Levemir Vial) 50 units SQ BIDI [facility] Last Admin: 01/12/17 06:52 Dose: 50 units Oxycodone HCl (Roxicodone -) 5 mg PO Q6H PRN PRN Reason: PAIN Last Admin: 01/11/17 21:26 Dose: 5 mg Ranitidine HCl (Zantac -) 150 mg PO DAILY [facility] Last Admin: 01/12/17 10:12 Dose: 150 mg Senna (Senna -) 2 tab PO DAILY [facility] Last Admin: 01/12/17 10:12 Dose: 2 tab Tamsulosin HCl (Flomax -) 0.4 mg PO DAILY@0830 [facility] Last Admin: 01/12/17 10:12 Dose: 0.4 mg Tiotropium Una (Spiriva -) 1 puff IH DAILY [facility] Last Admin: 01/12/17 10:12 Dose: 1 puff Torsemide (Demadex -) 100 mg PO DAILY [facility] Last Admin: 01/12/17 10:11 Dose: 100 mg Trazodone HCl (Desyrel -) 100 mg PO HS [facility] Last Admin: 01/11/17 21:27 Dose: 100 mg - Objective Vital Signs: Vital Signs Temperature 98.3 F 01/12/17 10:30 Pulse Rate 93 H 01/12/17 10:30 Respiratory Rate 19 01/12/17 10:30 Blood Pressure 147/61 01/12/17 10:30 O2 Sat by Pulse Oximetry (%) 90 L 01/11/17 21:00 Constitutional: Yes: No Distress, Calm Neck: Yes: Supple Cardiovascular: Yes: Regular Rate and Rhythm Respiratory: Yes: Regular, Diminished Gastrointestinal: Yes: Normal Bowel Sounds, Soft, Abdomen, Obese Edema: No Labs: CBC, BMP 01/12/17 07:00 01/12/17 07:00 INR, PTT INR 1.37 (0.82-1.09) H 01/09/17 05:35 - ....Imaging Chest X-ray: Report Reviewed (Right chest tube in place) EKG: Report Reviewed (SR occ PVC) Problem List - Problems (1) Acute urinary retention Code(s): R33.8 - OTHER RETENTION OF URINE (2) COPD (chronic obstructive pulmonary disease) Code(s): J44.9 - CHRONIC OBSTRUCTIVE PULMONARY DISEASE, UNSPECIFIED Qualifiers: COPD type: chronic bronchitis Chronic bronchitis type: unspecified Qualified Code(s): J42 - Unspecified chronic bronchitis (3) Hyperglycemia Code(s): R73.9 - HYPERGLYCEMIA, UNSPECIFIED (4) Leukocytosis Code(s): D72.829 - ELEVATED WHITE BLOOD CELL COUNT, UNSPECIFIED (5) Morbid obesity Code(s): E66.01 - MORBID (SEVERE) OBESITY DUE TO EXCESS CALORIES (6) Pleural effusion, right Code(s): J90 - PLEURAL EFFUSION, NOT ELSEWHERE CLASSIFIED (7) Renal failure, acute Code(s): N17.9 - ACUTE KIDNEY FAILURE, UNSPECIFIED Qualifiers: Acute renal failure type: unspecified Qualified Code(s): N17.9 - Acute kidney failure, unspecified (8) Acute on chronic systolic and diastolic heart failure, NYHA class 4 Code(s): I50.43 - ACUTE ON CHRONIC COMBINED SYSTOLIC AND DIASTOLIC HRT FAIL (9) Hx of CABG Code(s): Z95.1 - PRESENCE OF AORTOCORONARY BYPASS GRAFT (10) Ischemic cardiomyopathy Code(s): I25.5 - ISCHEMIC CARDIOMYOPATHY (11) LV dysfunction Code(s): I51.9 - HEART DISEASE, UNSPECIFIED (12) Lung nodule Code(s): R91.1 - SOLITARY PULMONARY NODULE (13) Poor compliance Code(s): Z91.19 - PATIENT'S NONCOMPLIANCE W OTH MEDICAL TREATMENT AND REGIMEN (14) S/P CABG (coronary artery bypass graft) Code(s): Z95.1 - PRESENCE OF AORTOCORONARY BYPASS GRAFT (15) Severe left ventricular systolic dysfunction Code(s): I51.9 - HEART DISEASE, UNSPECIFIED (16) Single implantable cardioverter-defibrillator (ICD) in situ Code(s): Z95.810 - PRESENCE OF AUTOMATIC (IMPLANTABLE) CARDIAC DEFIBRILLATOR (17) Type 2 diabetes mellitus with mild nonproliferative diabetic retinopathy without macular edema Code(s): E11.329 - TYPE 2 DIAB W MILD NONPRLF DIABETIC RTNOP W/O * DO NOT USE * Qualifiers: Diabetes mellitus mcc insulin use: with mcc use (18) CKD (chronic kidney disease) Code(s): N18.9 - CHRONIC KIDNEY DISEASE, UNSPECIFIED Qualifiers: Chronic kidney disease stage: stage 3 (moderate) Qualified Code(s): N18.3 - Chronic kidney disease, stage 3 (moderate) (19) Diabetes mellitus, insulin dependent (IDDM), uncontrolled Code(s): E10.65 - TYPE 1 DIABETES MELLITUS WITH HYPERGLYCEMIA Qualifiers: Diabetes mellitus complication detail: with polyneuropathy (20) Obstructive sleep apnea of adult Code(s): G47.33 - OBSTRUCTIVE SLEEP APNEA (ADULT) (PEDIATRIC) (21) Bladder outlet obstruction Code(s): N32.0 - BLADDER-NECK OBSTRUCTION (22) Obstructive uropathy Code(s): N13.9 - OBSTRUCTIVE AND REFLUX UROPATHY, UNSPECIFIED (23) Deep venous thrombosis Code(s): I82.409 - ACUTE EMBOLISM AND THOMBOS UNSP DEEP VN UNSP LOWER EXTREMITY Qualifiers: DVT location: lower extremity Affected thrombotic vein of extremity: unspecified vein of extremity Chronicity: acute Laterality: right Qualified Code(s): I82.401 - Acute embolism and thrombosis of unspecified deep veins of right lower extremity (24) Anticoagulant long-term use Code(s): Z79.01 - NURSING HOME (CURRENT) USE OF 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 Assessment/Plan 1. Severe LV systolic failure with NYHA classification 3-4 heart failure with ischemic cardiomyopathy and pulmonary HTN + right pleural effusion post chest tube/drain insertion 2. Bladder outlet obstruction and leukocytosis with h/o E coli bacteremia secondary to UTI/presumed prostatitis and MRSA left forearm abscess 3. CAD S/P CABG, angina pectoris 4. History of cardiac arrest S/P ICD 5. Chronic hypoxic respiratory failure with home O2 dependent COPD and pulmonary nodules 6. Type 2 diabetes mellitus - noncompliant 7. CVA 8. Acute on CKD 9. Morbid obesity 10. History of RLE DVT on NOAC 11. Paroxysmal atrial fibrillation->SR on NOAC 12. OSAS noncompliant with CPAP 13. NIRANJAN mass PLAN: 1. Continue Demadex 100 qd. Losartan is held pending renal function recovery. Monitor electrolytes 2. Complete antibiotic course 3. Continue Carvedilol 6.25 bid, Atorvastatin 40 qhs and consider resume Xarelto 15 qPM once hemostasis achieved (renal-dosing) 4. GI prophylaxis and continue CPAP as tolerated 5. If chest tube does not drain adequately, he will need VATS as per thoracic surgery
[2017-01-12] MEDS: oxyCODONE HCL 5 MG TABLET PO PRN ×2 (11:30→22:17)
--- NOTE | 2017-01-12 11:47 | PN ---
Progress Note (short form) - Note Progress Note: anxious and tearful parents at bedside chest drin placed by IR- bloody drainge in vacutainer Vital Signs Period Temp Pulse Resp BP Sys/Mcconnell Pulse Ox Last 24 Hr 97.5 F-98.5 F 79-96 18-20 105-147/48-61 90 cor-rrr lungs decreased bs n the right, +drain abd soft, nt ext no edema CBC, BMP 01/12/17 07:00 01/12/17 07:00 Microbiology 01/08/17 04:18 Blood - Peripheral Venous Blood Culture - Preliminary NO GROWTH OBTAINED AFTER 96 HOURS, INCUBATION TO CONTINUE FOR 1 DAYS. 01/08/17 04:33 Blood - Peripheral Venous Blood Culture - Preliminary NO GROWTH OBTAINED AFTER 96 HOURS, INCUBATION TO CONTINUE FOR 1 DAYS. 01/10/17 11:30 Pleural Fluid Gram Stain - Final 01/10/17 11:30 Pleural Fluid Body Fluid Culture - Preliminary NO AEROBIC GROWTH, 24 HRS 01/09/17 18:00 Nares - Mrsa Screen - Right MRSA Screen - Final NO MRSA ISOLATED 01/10/17 11:30 Pleural Fluid AFB Smear Concentration - Preliminary 01/10/17 11:30 Pleural Fluid Mycobacterial Culture - Preliminary 01/10/17 11:30 Pleural Fluid HEMANT Preparation - Preliminary 01/10/17 11:30 Pleural Fluid Fungal Culture - Preliminary 01/08/17 11:50 Nares - Mrsa Screen - Left MRSA Screen - Final NO MRSA ISOLATED 01/08/17 11:50 Urine - Urine - Catheterized Urine Culture - Final NO GROWTH OBTAINED 01/08/17 11:50 Urine - Urine - Catheterized Legionella Antigen - Final 01/08/17 11:50 Urine - Urine - Catheterized Streptococcus pneumoniae Antigen (M - Final a/p new right pleural effusion- hemothorax- f/u final culture results, if negative, would d/c antibiotics history of lung cancer s/p RT diabetes- poorly compliant with meds-hgb a1c of 14 urinary retention- cade d/hamzah per urology history of MRSA-continue contact isolation Problem List - Problems (1) Leukocytosis Code(s): D72.829 - ELEVATED WHITE BLOOD CELL COUNT, UNSPECIFIED (2) Acute urinary retention Code(s): R33.8 - OTHER RETENTION OF URINE (3) Pleural effusion, right Code(s): J90 - PLEURAL EFFUSION, NOT ELSEWHERE CLASSIFIED (4) MRSA (methicillin resistant Staphylococcus aureus) colonization Code(s): Z22.322 - CARRIER OR SUSPECTED CARRIER OF METHICILLIN RESIS STAPH
--- NOTE | 2017-01-12 12:25 | PN ---
Progress Note, Physician History of Present Illness: pulmonary alert,c/o r sided cp,min drainage via chest tube,hypoxic on nasal o2 - Current Medication List Current Medications: Active Medications Carvedilol (Coreg -) 6.25 mg PO BID [facility] Last Admin: 01/12/17 10:12 Dose: 6.25 mg Docusate Sodium (Colace -) 100 mg PO TID [facility] Last Admin: 01/12/17 06:18 Dose: 100 mg Gabapentin (Neurontin -) 100 mg PO BID [facility] Last Admin: 01/12/17 10:12 Dose: 100 mg Ceftriaxone Sodium 2 gm/ (Dextrose) 100 mls @ 200 mls/hr IVPB DAILY [facility] Last Admin: 01/12/17 10:11 Dose: 200 mls/hr Insulin Aspart (Novolog Mix 70/30 Vial) 15 units SQ BIDAC [facility] Last Admin: 01/12/17 06:52 Dose: 15 units Insulin Aspart (Novolog Vial Sliding Scale -) 1 vial SQ ACHS [facility] PRN Reason: Protocol Last Admin: 01/12/17 11:25 Dose: Not Given Insulin Detemir (Levemir Vial) 50 units SQ BIDI [facility] Last Admin: 01/12/17 06:52 Dose: 50 units Oxycodone HCl (Roxicodone -) 5 mg PO Q6H PRN PRN Reason: PAIN Last Admin: 01/12/17 11:30 Dose: 5 mg Ranitidine HCl (Zantac -) 150 mg PO DAILY [facility] Last Admin: 01/12/17 10:12 Dose: 150 mg Rivaroxaban (Xarelto -) 15 mg PO DAILY@1800 [facility] Senna (Senna -) 2 tab PO DAILY [facility] Last Admin: 01/12/17 10:12 Dose: 2 tab Tamsulosin HCl (Flomax -) 0.4 mg PO DAILY@0830 [facility] Last Admin: 01/12/17 10:12 Dose: 0.4 mg Tiotropium [place] (Spiriva -) 1 puff IH DAILY [facility] Last Admin: 01/12/17 10:12 Dose: 1 puff Torsemide (Demadex -) 100 mg PO DAILY [facility] Last Admin: 01/12/17 10:11 Dose: 100 mg Trazodone HCl (Desyrel -) 100 mg PO HS [facility] Last Admin: 01/11/17 21:27 Dose: 100 mg - Objective Vital Signs: Vital Signs Temperature 98.3 F 01/12/17 10:30 Pulse Rate 93 H 01/12/17 10:30 Respiratory Rate 19 01/12/17 10:30 Blood Pressure 147/61 01/12/17 10:30 O2 Sat by Pulse Oximetry (%) 90 L 01/11/17 21:00 Constitutional: Yes: Well Nourished, Calm Eyes: Yes: WNL HENT: Yes: WNL Neck: Yes: WNL Cardiovascular: Yes: Regular Rate and Rhythm, S1, S2 Respiratory: Yes: Diminished Gastrointestinal: Yes: Normal Bowel Sounds, Soft Extremities: Yes: WNL Edema: No Labs: CBC, BMP 01/12/17 07:00 01/12/17 07:00 INR, PTT INR 1.37 (0.82-1.09) H 01/09/17 05:35 Problem List - Problems (1) Lung cancer Code(s): C34.90 - MALIGNANT NEOPLASM OF UNSP PART OF UNSP BRONCHUS OR LUNG (2) Acute urinary retention Code(s): R33.8 - OTHER RETENTION OF URINE (3) Anticoagulant long-term use Code(s): Z79.01 - CARE HOME (CURRENT) USE OF 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 (4) Bladder outlet obstruction Code(s): N32.0 - BLADDER-NECK OBSTRUCTION (5) COPD (chronic obstructive pulmonary disease) Code(s): J44.9 - CHRONIC OBSTRUCTIVE PULMONARY DISEASE, UNSPECIFIED Qualifiers: COPD type: chronic bronchitis Chronic bronchitis type: unspecified Qualified Code(s): J42 - Unspecified chronic bronchitis (6) Hyperglycemia Code(s): R73.9 - HYPERGLYCEMIA, UNSPECIFIED (7) Leukocytosis Code(s): D72.829 - ELEVATED WHITE BLOOD CELL COUNT, UNSPECIFIED (8) Morbid obesity Code(s): E66.01 - MORBID (SEVERE) OBESITY DUE TO EXCESS CALORIES (9) Obstructive uropathy Code(s): N13.9 - OBSTRUCTIVE AND REFLUX UROPATHY, UNSPECIFIED (10) Pleural effusion, right Code(s): J90 - PLEURAL EFFUSION, NOT ELSEWHERE CLASSIFIED (11) CHF (congestive heart failure) Code(s): I50.9 - HEART FAILURE, UNSPECIFIED Qualifiers: (12) Acute on chronic systolic and diastolic heart failure, NYHA class 4 Code(s): I50.43 - ACUTE ON CHRONIC COMBINED SYSTOLIC AND DIASTOLIC HRT FAIL (13) COPD (chronic obstructive pulmonary disease) case management patient Code(s): [id number] - (14) Dyspnea on exertion Code(s): R06.09 - OTHER FORMS OF DYSPNEA (15) Heart failure, systolic, with acute decompensation Code(s): I50.23 - ACUTE ON CHRONIC SYSTOLIC (CONGESTIVE) HEART FAILURE (16) Hx of CABG Code(s): Z95.1 - PRESENCE OF AORTOCORONARY BYPASS GRAFT (17) Ischemic cardiomyopathy Code(s): I25.5 - ISCHEMIC CARDIOMYOPATHY (18) LV dysfunction Code(s): I51.9 - HEART DISEASE, UNSPECIFIED (19) S/P CABG (coronary artery bypass graft) Code(s): Z95.1 - PRESENCE OF AORTOCORONARY BYPASS GRAFT (20) Single implantable cardioverter-defibrillator (ICD) in situ Code(s): Z95.810 - PRESENCE OF AUTOMATIC (IMPLANTABLE) CARDIAC DEFIBRILLATOR (21) Tobacco abuse Code(s): Z72.0 - TOBACCO USE (22) Obstructive sleep apnea of adult Code(s): G47.33 - OBSTRUCTIVE SLEEP APNEA (ADULT) (PEDIATRIC) Assessment/Plan IMP DYSPNEA ACUTE ON CHRONIC CHF HEMOTHORAX COPD ON HOME O2 CHRONIC HYPOXEMIC RESPIRATORY FAILURE ASHD S/P CABG S/P CARDIAC ARREST S/P ICD OBSTRUCTIVE UROPATHY URINARY RETENTION ACUTE ON CHRONIC KIDNEY DISEASE POORLY CONTROLLED DM LUNG CA S/P RT GOUT OSAS PLAN DIURETICS O2 INHALED BRONCHODILATORS MONITOR LYTES,RENAL FUNCTION GLYCEMIC CONTROL ANTIBIOTICS PER ID MONITOR CHEST TUBE DRAINAGE MAY REQUIRE VAT DR BARBOSA Problem List - Problems (1) Lung cancer Code(s): C34.90 - MALIGNANT NEOPLASM OF UNSP PART OF UNSP BRONCHUS OR LUNG (2) Acute urinary retention Code(s): R33.8 - OTHER RETENTION OF URINE (3) Anticoagulant long-term use Code(s): Z79.01 - CARE HOME (CURRENT) USE OF 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 (4) Bladder outlet obstruction Code(s): N32.0 - BLADDER-NECK OBSTRUCTION (5) COPD (chronic obstructive pulmonary disease) Code(s): J44.9 - CHRONIC OBSTRUCTIVE PULMONARY DISEASE, UNSPECIFIED Qualifiers: COPD type: chronic bronchitis Chronic bronchitis type: unspecified Qualified Code(s): J42 - Unspecified chronic bronchitis (6) Hyperglycemia Code(s): R73.9 - HYPERGLYCEMIA, UNSPECIFIED (7) Leukocytosis Code(s): D72.829 - ELEVATED WHITE BLOOD CELL COUNT, UNSPECIFIED (8) Morbid obesity Code(s): E66.01 - MORBID (SEVERE) OBESITY DUE TO EXCESS CALORIES (9) Obstructive uropathy Code(s): N13.9 - OBSTRUCTIVE AND REFLUX UROPATHY, UNSPECIFIED (10) Pleural effusion, right Code(s): J90 - PLEURAL EFFUSION, NOT ELSEWHERE CLASSIFIED (11) CHF (congestive heart failure) Code(s): I50.9 - HEART FAILURE, UNSPECIFIED Qualifiers: (12) Acute on chronic systolic and diastolic heart failure, NYHA class 4 Code(s): I50.43 - ACUTE ON CHRONIC COMBINED SYSTOLIC AND DIASTOLIC HRT FAIL (13) COPD (chronic obstructive pulmonary disease) case management patient Code(s): [id number] - (14) Dyspnea on exertion Code(s): R06.09 - OTHER FORMS OF DYSPNEA (15) Heart failure, systolic, with acute decompensation Code(s): I50.23 - ACUTE ON CHRONIC SYSTOLIC (CONGESTIVE) HEART FAILURE (16) Hx of CABG Code(s): Z95.1 - PRESENCE OF AORTOCORONARY BYPASS GRAFT (17) Ischemic cardiomyopathy Code(s): I25.5 - ISCHEMIC CARDIOMYOPATHY (18) LV dysfunction Code(s): I51.9 - HEART DISEASE, UNSPECIFIED (19) S/P CABG (coronary artery bypass graft) Code(s): Z95.1 - PRESENCE OF AORTOCORONARY BYPASS GRAFT (20) Single implantable cardioverter-defibrillator (ICD) in situ Code(s): Z95.810 - PRESENCE OF AUTOMATIC (IMPLANTABLE) CARDIAC DEFIBRILLATOR (21) Tobacco abuse Code(s): Z72.0 - TOBACCO USE (22) Obstructive sleep apnea of adult Code(s): G47.33 - OBSTRUCTIVE SLEEP APNEA (ADULT) (PEDIATRIC)
[2017-01-12 12:37] LABS: MCH 29.7 pg (25.7-33.7); MEAN CELL VOLUME 90.2 fl (80-96); PLATELET COUNT 141 K/MM3 (134-434); RDW 14.9 % (11.9-15.9)
--- NOTE | 2017-01-12 12:59 | PN ---
Teaching Attending Note Name of Resident: Juan José Carbajal ATTENDING PHYSICIAN STATEMENT I saw and evaluated the patient. I reviewed the resident's note and discussed the case with the resident. I agree with the resident's findings and plan as documented. SUBJECTIVE:states his breathing is improved. mild tenderness at chest tube insertion site. denies CP, SOB< fever, chills, N/V/c/D OBJECTIVE: Last Vital Signs Temp Pulse Resp BP Pulse Ox 98.3 F 93 H 19 147/61 90 L 01/12/17 10:30 01/12/17 10:30 01/12/17 10:30 01/12/17 10:30 01/11/17 21:00 Intake & Output 01/09/17 01/10/17 01/11/17 01/12/17 23:59 23:59 23:59 23:59 Intake Total 500 200 300 Output Total 2950 1600 1850 670 Balance -2450 -1600 -1650 -370 Weight 244 lb 12.8 oz 236 lb 4.8 oz 232 lb General NAD CV S1 S2 RRR Lungs crackles B/L bases and decreased breath sounds R base Abdomen soft NT/ND Extremities no pitting edema ASSESSMENT AND PLAN: 61yo M wtih PMH HTN, HLD, idiopathic dilated cardiomyopathy, systolic heart failure s/p PPM/AICD, CAD s/p CABG x4, h/o DVT on Xarelto, COPD on home O2, CKD , IDDM, lung cancer s/p radiation (2017), prostatitis, MRSA abscess left forearm , hepatitis B presented to the ER with difficulty urinating and generalized weakness 1. Urinary retention- likely BPH. s/p cade placement and 2L output. d/c cade this AM with voiding trial. has refused urologic workup in the past. urology consulted. UA negative for infection. on flomax. 2. Acute on CKD- likely obstructive uropathy. improvement with cade placement. stable. renal dose medications. 3. DM-A1c 14.2. not compliant at home. improved. endo consulted. cont insulin. titrate to optimize control 4. Sepsis due to suspected PNA vs complicated pleural effusion-afebrile. s/p chest tube placement 01/11. CXR does not show massive improvement. will need to consider VATS if does not improve. monitor CBC Q12H while bloody drainage. hold xarelto. On Ceftriaxone for empiric PNA. CT surgery, ID and pulmonary on board. 5. NSVT- no repeat events. cont current medications. 6. acute on chronic systolic CHF- clinically improved. on reduced dose of torsemide. cont strict I&O, daily weights, fluid restriction. 7. DVT on xarelto- hold at this time. will consider re-starting tomorrow if Hgb remains stable 8. PAF- as per cardio has hx of afib with high [id number] score. will re-start Xarelto once hgb stable 9. DVT ppx -will start hep sq
--- NOTE | 2017-01-12 14:33 | PATH ---
Cytology Non-Gynecological Report Patient Name: KYLE MURO [facility]. Rec. #: [id number] /Age/Gender: 1955 (Age: 61) / M Account: [id number] Location: 4 PEDS/ADOL Taken: 01/11/2017 Received: 01/11/2017 Reported: 01/12/2017 Physicians: CHARMAINE Webster Specimen(s) Received A: PLEURAL FLUID B: PLEURAL FLUID Clinical History Hemothorax Final Diagnosis A & B. PLEURAL FLUID, RIGHT, THORACENTESIS: SATISFACTORY FOR EVALUATION NO MALIGNANT CELLS IDENTIFIED. RED BLOOD CELLS, MANY NEUTROPHILS, RARE MACROPHAGES, AND FEW LYMPHOCYTES PRESENT. Electronically Signed Mae Pierce M.D. Gross Description A. Approximately 50 cc of bloody fluid received fixed in 50% alcohol. Two cytofunnels and one cellblock prepared. B. Approximately 100 cc of bloody fluid received fresh. Two cytofunnels and one cellblock prepared.
[2017-01-12] MEDS ORDERED: RIVAROXABAN 15 MG TABLET PO SCH (18:00)
[2017-01-12] MEDS ORDERED: HEPARIN NA (PORCINE) 5,000 UNITS/ML 1ML VIAL SQ SCH (22:00)
[2017-01-12] MEDS: traZODone HCL 50 MG TABLET (FP) PO SCH (22:16)
[2017-01-13] MEDS: INSULIN DETEMIR 100 UNITS/ML MDV SQ SCH ×2 (06:28→17:42)
[2017-01-13] MEDS: INSULIN (NOVOLOG MIX 70/30) 100 UNITS/ML MDV SQ SCH ×2 (06:28→17:42)
[2017-01-13] MEDS: INSULIN SLIDING SCALE (NOVOLOG) 1 VIAL SQ SCH ×4 (06:28→21:31)
[2017-01-13] MEDS: DOCUSATE SODIUM 100 MG CAPSULE (FP) PO SCH ×3 (06:28→21:30)
[2017-01-13] MEDS ORDERED: INSULIN DETEMIR 100 UNITS/ML MDV SQ ONE ×2 (07:03→17:59)
[2017-01-13] MEDS ORDERED: INSULIN (NOVOLOG MIX 70/30) 100 UNITS/ML MDV SQ ONE ×2 (07:03→17:58)
[2017-01-13] MEDS ORDERED: INSULIN (NOVOLOG) ASPART 100 UNITS/ML 10ML VIAL ONE (07:04)
[2017-01-13 07:24] LABS: BASOPHIL 0.4 % (0-2.0); EOSINOPHIL 1.8 % (0-4.5); MCH 30.1 pg (25.7-33.7); MCHC 33.3 g/dl (32.0-35.9); MEAN CELL VOLUME 90.6 fl (80-96); MEAN PLT VOLUME 9.2 fl (7.5-11.1); NEUTROPHILS 80.7 % (42.8-82.8); PLATELET COUNT 149 K/MM3 (134-434); RDW 14.9 % (11.9-15.9); WHITE BLOOD COUNT 15.5 K/mm3 (4.0-10.0)
[2017-01-13 07:46] LABS: ALBUMIN 2.1 g/dl (3.4-5.0); ALK PHOS 391 U/L (45-117); ANION GAP 9 (8-16); BILIRUBIN,TOTAL 0.8 mg/dL (0.2-1.0); CALCIUM 8.6 mg/dL (8.5-10.1); CO2 31 mmol/L (21-32); CREATININE 2.1 mg/dL (0.7-1.3); GLUCOSE,RANDOM 67 mg/dL (74-106); SGOT/AST 26 U/L (15-37); SGPT/ALT 25 U/L (12-78); TOT PROT 6.7 g/dl (6.4-8.2)
--- NOTE | 2017-01-13 07:54 | PN ---
Progress Note (short form) - Note Progress Note: c/o pain at chest tube insertion site. denies CP, SOB, fever, chills, N/V/C/D Current Medications Generic Name Dose Route Start Last Admin Trade Name Freq PRN Reason Stop Dose Admin Carvedilol 6.25 mg 01/08/17 21:52 01/12/17 22:16 Coreg - PO 6.25 mg BID [facility] Administration Docusate Sodium 100 mg 01/08/17 22:03 01/13/17 06:28 Colace - PO 100 mg TID [facility] Administration Gabapentin 100 mg 01/09/17 22:00 01/12/17 22:16 Neurontin - PO 100 mg BID [facility] Administration Heparin Sodium (Porcine) 5,000 unit 01/12/17 22:00 01/12/17 22:16 Heparin - SQ 01/13/17 09:00 5,000 unit BID [facility] Administration Ceftriaxone Sodium 2 gm/ 100 mls @ 200 mls/hr 01/10/17 10:00 01/12/17 10:11 Dextrose IVPB 200 mls/hr DAILY [facility] Administration Insulin Aspart 15 units 01/09/17 16:30 01/13/17 06:28 Novolog Mix 70/30 Vial SQ Not Given BIDAC [facility] Insulin Aspart 1 vial 01/09/17 16:30 01/13/17 06:28 Novolog Vial Sliding Scale - SQ Not Given ACHS [facility] Protocol Insulin Detemir 50 units 01/09/17 16:30 01/13/17 06:28 Levemir Vial SQ Not Given BIDI [facility] Oxycodone HCl 5 mg 01/10/17 14:03 01/12/17 22:17 Roxicodone - PO 5 mg Q6H PRN Administration PAIN Ranitidine HCl 150 mg 01/10/17 10:00 01/12/17 10:12 Zantac - PO 150 mg DAILY [facility] Administration Rivaroxaban 15 mg 01/13/17 10:00 Xarelto - PO DAILY [facility] Senna 2 tab 01/09/17 10:00 01/12/17 10:12 Senna - PO 2 tab DAILY [facility] Administration Tamsulosin HCl 0.4 mg 01/10/17 08:30 01/12/17 10:12 Flomax - PO 0.4 mg DAILY@0830 [facility] Administration Tiotropium [place] 1 puff 01/10/17 10:00 01/12/17 10:12 Spiriva - IH 1 puff DAILY [facility] Administration Torsemide 100 mg 01/09/17 10:00 01/12/17 10:11 Demadex - PO 100 mg DAILY [facility] Administration Trazodone HCl 100 mg 01/08/17 22:00 01/12/17 22:16 Desyrel - PO 100 mg HS [facility] Administration Last Vital Signs Temp Pulse Resp BP Pulse Ox 97.7 F 77 18 114/67 93 L 01/13/17 06:00 01/13/17 06:00 01/13/17 06:00 01/13/17 06:00 01/12/17 21:00 Intake & Output 01/10/17 01/11/17 01/12/17 01/13/17 23:59 23:59 23:59 23:59 Intake Total 200 800 200 Output Total 1600 1850 670 5 Balance -1600 -1650 130 195 Weight 236 lb 4.8 oz 232 lb 235 lb General NAD CV S1 S2 RRR Lungs crackles B/L bases and decreased breath sounds R base Abdomen soft NT/ND Extremities no pitting edema CBCD WBC 15.5 K/mm3 (4.0-10.0) H 01/13/17 06:00 RBC 3.70 M/mm3 (4.00-5.60) L 01/13/17 06:00 Hgb 11.1 GM/dL (11.7-16.9) L 01/13/17 06:00 Hct 33.5 % (35.4-49) L 01/13/17 06:00 MCV 90.6 fl (80-96) 01/13/17 06:00 MCHC 33.3 g/dl (32.0-35.9) 01/13/17 06:00 RDW 14.9 % (11.9-15.9) 01/13/17 06:00 Plt Count 149 K/MM3 (134-434) 01/13/17 06:00 MPV 9.2 fl (7.5-11.1) 01/13/17 06:00 CMP Sodium 139 mmol/L (136-145) 01/13/17 06:00 Potassium 4.3 mmol/L (3.5-5.1) 01/13/17 06:00 Chloride 99 mmol/L (98-107) 01/13/17 06:00 Carbon Dioxide 31 mmol/L (21-32) 01/13/17 06:00 Anion Gap 9 (8-16) 01/13/17 06:00 BUN 73 mg/dL (7-18) H 01/13/17 06:00 Creatinine 2.1 mg/dL (0.7-1.3) H 01/13/17 06:00 Creat Clearance w eGFR 32.27 (>60) 01/13/17 06:00 Calcium 8.6 mg/dL (8.5-10.1) 01/13/17 06:00 Total Bilirubin 0.8 mg/dL (0.2-1.0) 01/13/17 06:00 AST 26 U/L (15-37) 01/13/17 06:00 ALT 25 U/L (12-78) 01/13/17 06:00 Alkaline Phosphatase 391 U/L (45-117) H 01/13/17 06:00 Total Protein 6.7 g/dl (6.4-8.2) 01/13/17 06:00 Albumin 2.1 g/dl (3.4-5.0) L 01/13/17 06:00 ASSESSMENT AND PLAN: 61yo M wtih PMH HTN, HLD, idiopathic dilated cardiomyopathy, systolic heart failure s/p PPM/AICD, CAD s/p CABG x4, h/o DVT on Xarelto, COPD on home O2, CKD , IDDM, lung cancer s/p radiation (2017), prostatitis, MRSA abscess left forearm , hepatitis B presented to the ER with difficulty urinating and generalized weakness 1. Urinary retention- likely BPH. s/p cade placement and 2L output. freely voiding. will monitor kidney fx. on flomax. 2. Acute on CKD- likely obstructive uropathy. slight uptrend. will cont to trend. renal dose medications. 3. DM-A1c 14.2. not compliant at home. improved. endo consulted. cont insulin. titrate to optimize control 4. Sepsis due to suspected PNA vs complicated pleural effusion-afebrile. s/p chest tube placement 01/11. minimal output last 24H. awaiting repeat CXR. may need VATS if does not improve. pt is poor surgical candidate. will d/c Abx as Cx are negative. CT surgery, ID and pulmonary on board. 5. NSVT- no repeat events. cont current medications. 6. acute on chronic systolic CHF- clinically improved. on reduced dose of torsemide. cont strict I&O, daily weights, fluid restriction. 7. DVT on xarelto- re-start xarelto 8. PAF- as per cardio has hx of afib with high [id number] score. re-start Xarelto 9. DVT ppx -xarelto Visit type - Emergency Visit Emergency Visit: Yes ED Registration Date: 01/08/17 Care time: The patient presented to the Emergency Department on the above date and was hospitalized for further evaluation of their emergent condition. - New Patient This patient is new to me today: No - Critical Care Critical Care patient: No - Discharge Referral Referred to [facility] Med P.C.: No
[2017-01-13] MEDS: TAMSULOSIN HCL 0.4 MG CAP.ER.24H (FP) PO SCH (08:41)
[2017-01-13] MEDS: oxyCODONE HCL 5 MG TABLET PO PRN ×2 (08:41→18:11)
--- NOTE | 2017-01-13 08:55 | PN ---
Progress Note, Physician Chief Complaint: ID Off antibiotics Afebrile - Current Medication List Current Medications: Active Medications Carvedilol (Coreg -) 6.25 mg PO BID [facility] Last Admin: 01/12/17 22:16 Dose: 6.25 mg Docusate Sodium (Colace -) 100 mg PO TID [facility] Last Admin: 01/13/17 06:28 Dose: 100 mg Gabapentin (Neurontin -) 100 mg PO BID [facility] Last Admin: 01/12/17 22:16 Dose: 100 mg Heparin Sodium (Porcine) (Heparin -) 5,000 unit SQ BID [facility] Stop: 01/13/17 09:00 Last Admin: 01/12/17 22:16 Dose: 5,000 unit Insulin Aspart (Novolog Mix 70/30 Vial) 15 units SQ BIDAC [facility] Last Admin: 01/13/17 06:28 Dose: Not Given Insulin Aspart (Novolog Vial Sliding Scale -) 1 vial SQ ACHS [facility] PRN Reason: Protocol Last Admin: 01/13/17 06:28 Dose: Not Given Insulin Detemir (Levemir Vial) 50 units SQ BIDI [facility] Last Admin: 01/13/17 06:28 Dose: Not Given Oxycodone HCl (Roxicodone -) 5 mg PO Q6H PRN PRN Reason: PAIN Last Admin: 01/13/17 08:41 Dose: 5 mg Ranitidine HCl (Zantac -) 150 mg PO DAILY [facility] Last Admin: 01/12/17 10:12 Dose: 150 mg Rivaroxaban (Xarelto -) 15 mg PO DAILY [facility] Senna (Senna -) 2 tab PO DAILY [facility] Last Admin: 01/12/17 10:12 Dose: 2 tab Tamsulosin HCl (Flomax -) 0.4 mg PO DAILY@0830 [facility] Last Admin: 01/13/17 08:41 Dose: 0.4 mg Tiotropium [place] (Spiriva -) 1 puff IH DAILY [facility] Last Admin: 01/12/17 10:12 Dose: 1 puff Torsemide (Demadex -) 100 mg PO DAILY [facility] Last Admin: 01/12/17 10:11 Dose: 100 mg Trazodone HCl (Desyrel -) 100 mg PO HS [facility] Last Admin: 01/12/17 22:16 Dose: 100 mg - Objective Vital Signs: Vital Signs Temperature 97.7 F 01/13/17 06:00 Pulse Rate 77 01/13/17 06:00 Respiratory Rate 18 01/13/17 06:00 Blood Pressure 114/67 01/13/17 06:00 O2 Sat by Pulse Oximetry (%) 93 L 01/12/17 21:00 Constitutional: Yes: No Distress Neck: Yes: WNL, Supple Cardiovascular: Yes: S1, S2 Respiratory: Yes: Diminished Gastrointestinal: Yes: Soft Labs: CBC, BMP 01/13/17 06:00 01/13/17 06:00 INR, PTT INR 1.37 (0.82-1.09) H 01/09/17 05:35 Assessment/Plan Microbiology 01/10/17 11:30 Pleural Fluid Gram Stain - Final 01/10/17 11:30 Pleural Fluid Anaerobic Culture - Final NO GROWTH OF AEROBIC ORGANISMS AFTER 48 HOURS INCUBATION NO ANAEROBES WERE ISOLATED 01/09/17 18:00 Nares - Mrsa Screen - Right MRSA Screen - Final NO MRSA ISOLATED 01/08/17 11:50 Urine - Urine - Catheterized Urine Culture - Final NO GROWTH OBTAINED 01/08/17 11:50 Nares - Mrsa Screen - Left MRSA Screen - Final NO MRSA ISOLATED 01/08/17 04:18 Blood - Peripheral Venous Blood Culture - Final NO GROWTH AFTER 5 DAYS INCUBATION 01/10/17 11:30 Pleural Fluid HEMANT Preparation - Preliminary 01/10/17 11:30 Pleural Fluid Fungal Culture - Preliminary 01/10/17 11:30 Pleural Fluid AFB Smear Concentration - Preliminary 01/10/17 11:30 Pleural Fluid Mycobacterial Culture - Preliminary Laboratory Tests 01/13/17 01/13/17 06:00 06:00 WBC 15.5 H Hgb 11.1 L Hct 33.5 L Plt Count 149 Anion Gap 9 Creatinine 2.1 H Assessment Currently off antibiotics Kindly recall if we be of assistance Mary TREJO
[2017-01-13] MEDS: TIOTROPIUM BROMIDE 18 MCG/INH (DEVICE W/ 5 CAPSULES) IH SCH (09:03)
[2017-01-13] MEDS: GABAPENTIN 100 MG CAPSULE (FP) PO SCH ×2 (09:04→21:30)
[2017-01-13] MEDS: CARVEDILOL 6.25 MG TABLET (FP) PO SCH ×2 (09:04→21:30)
[2017-01-13] MEDS: RANITIDINE HCL 150 MG TABLET (FP) PO SCH (09:04)
[2017-01-13] MEDS: SENNOSIDES 8.6MG TABLET (FP) PO SCH (09:04)
[2017-01-13] MEDS: RIVAROXABAN 15 MG TABLET PO SCH (09:11)
[2017-01-13] MEDS: TORSEMIDE 100 MG TABLET PO SCH (09:11)
--- NOTE | 2017-01-13 11:54 | PN ---
Progress Note (short form) - Note Progress Note: Chief Complaint: Events noted, notes reviewed, complaining of discomfort at the chest tube site insertion, denies any chest pain or dyspnea History of Present Illness: Seen and examined on telemetry earlier today. Events noted, notes reviewed, complaining of discomfort at the chest tube site insertion, denies any chest pain or dyspne Echocardiography 08/14/2016 revealed severe LV systolic dysfunction with global hypokinesia, mild MR, mild TR Medications: Current Medications Carvedilol (Coreg -) 6.25 mg PO BID [facility] Last Admin: 01/13/17 09:04 Dose: 6.25 mg Docusate Sodium (Colace -) 100 mg PO TID [facility] Last Admin: 01/13/17 06:28 Dose: 100 mg Gabapentin (Neurontin -) 100 mg PO BID [facility] Last Admin: 01/13/17 09:04 Dose: 100 mg Insulin Aspart (Novolog Mix 70/30 Vial) 15 units SQ BIDAC [facility] Last Admin: 01/13/17 06:28 Dose: Not Given Insulin Aspart (Novolog Vial Sliding Scale -) 1 vial SQ ACHS [facility] PRN Reason: Protocol Last Admin: 01/13/17 06:28 Dose: Not Given Insulin Detemir (Levemir Vial) 50 units SQ BIDI [facility] Last Admin: 01/13/17 06:28 Dose: Not Given Oxycodone HCl (Roxicodone -) 5 mg PO Q6H PRN PRN Reason: PAIN Last Admin: 01/13/17 08:41 Dose: 5 mg Ranitidine HCl (Zantac -) 150 mg PO DAILY [facility] Last Admin: 01/13/17 09:04 Dose: 150 mg Rivaroxaban (Xarelto -) 15 mg PO DAILY [facility] Last Admin: 01/13/17 09:11 Dose: 15 mg Senna (Senna -) 2 tab PO DAILY [facility] Last Admin: 01/13/17 09:04 Dose: 2 tab Tamsulosin HCl (Flomax -) 0.4 mg PO DAILY@0830 [facility] Last Admin: 01/13/17 08:41 Dose: 0.4 mg Tiotropium [place] (Spiriva -) 1 puff IH DAILY [facility] Last Admin: 01/13/17 09:03 Dose: 1 puff Torsemide (Demadex -) 100 mg PO DAILY [facility] Last Admin: 01/13/17 09:11 Dose: 100 mg Trazodone HCl (Desyrel -) 100 mg PO HS [facility] Last Admin: 01/12/17 22:16 Dose: 100 mg Review of Systems Cardiovascular: As noted above Respiratory: denies: Cough or Sputum Production Gastrointestinal: denies: Nausea, Vomiting, Diarrhea, Constipation or Abdominal Discomfort Musculoskeletal: No Symptoms Reported Endocrine: No Symptoms Reported Vital Signs: Last Vital Signs Temp Pulse Resp BP Pulse Ox 98.3 F 84 19 102/51 93 L 01/13/17 09:30 01/13/17 09:30 01/13/17 09:30 01/13/17 09:30 01/12/17 21:00 Intake & Output 01/10/17 01/11/17 01/12/17 01/13/17 23:59 23:59 23:59 23:59 Intake Total 200 800 200 Output Total 1600 1850 670 5 Balance -1600 -1650 130 195 Weight 236 lb 4.8 oz 232 lb 235 lb Constitutional: No Distress, Calm Neck: Supple Negative JVD No Bruit Respiratory: Diminished Breath Sounds at the Bases Cardiovascular: S1 S2 Regular Rate and Rhythm Grade 1-2/6 SM Gastrointestinal: Soft Benign Normal Bowel Sounds Ext: Negative Edema Labs: CBC, BMP 01/13/17 06:00 01/13/17 06:00 INR, PTT INR 1.37 (0.82-1.09) H 01/09/17 05:35 Assessment/Plan ASSESSMENT: 1. Systolic LV dysfunction with chronic class II-III NYHA classification heart failure (ischemic dilated cardiomyopathy with pulmonary HTN), plearal effusion post chest tube insertion, for further intervention possible VATS 2. Bladder outlet obstruction with ecoli bacteremia secondary to UTI/presumed prostatitis 3. MRSA left forearm abscess, resolved 4. CAD post CABG, angina pectoris 5. History of cardiac arrest post ICD 6. Persistent atrial fibrillation on NOAC's 7. HTN 8. DM 9. Hypercholesterolemia 10. History of CVA 11. Chronic hypoxic respiratory failure with home O2 dependent COPD 12. OSAS noncompliant with CPAP 13. Acute on CKD 14. History of RLE DVT 15. Morbid obesity PLAN: 1. Continue Demadex with close monitoring of renal function and electrolytes 2. Continue Carvedilol 3. Ideally ARBS therapy to be resumed once renal function stabilized 4. Continue Xarelto with close monitoring of CBC 5. Considering patient's advanced heart failure syndrome and advanced co- morbidities patient is at increased risk for anesthesia/VATS, to be discussed further with thoracic surgery service and pulmonary service as to the extent of the planned intervention (if prolonged anesthesia is required patient may benefit from close hemodynamic monitoring pre and post operatively, ideally insertion of a [place]-Drew catheter) Ashwin Pittman MD
--- NOTE | 2017-01-13 11:59 | PN ---
Progress Note, Physician History of Present Illness: pulmonary no distress,-sob,min drainage via chest tube 5cc - Current Medication List Current Medications: Active Medications Carvedilol (Coreg -) 6.25 mg PO BID [facility] Last Admin: 01/13/17 09:04 Dose: 6.25 mg Docusate Sodium (Colace -) 100 mg PO TID [facility] Last Admin: 01/13/17 06:28 Dose: 100 mg Gabapentin (Neurontin -) 100 mg PO BID [facility] Last Admin: 01/13/17 09:04 Dose: 100 mg Insulin Aspart (Novolog Mix 70/30 Vial) 15 units SQ BIDAC [facility] Last Admin: 01/13/17 06:28 Dose: Not Given Insulin Aspart (Novolog Vial Sliding Scale -) 1 vial SQ ACHS [facility] PRN Reason: Protocol Last Admin: 01/13/17 06:28 Dose: Not Given Insulin Detemir (Levemir Vial) 50 units SQ BIDI [facility] Last Admin: 01/13/17 06:28 Dose: Not Given Oxycodone HCl (Roxicodone -) 5 mg PO Q6H PRN PRN Reason: PAIN Last Admin: 01/13/17 08:41 Dose: 5 mg Ranitidine HCl (Zantac -) 150 mg PO DAILY [facility] Last Admin: 01/13/17 09:04 Dose: 150 mg Rivaroxaban (Xarelto -) 15 mg PO DAILY [facility] Last Admin: 01/13/17 09:11 Dose: 15 mg Senna (Senna -) 2 tab PO DAILY [facility] Last Admin: 01/13/17 09:04 Dose: 2 tab Tamsulosin HCl (Flomax -) 0.4 mg PO DAILY@0830 [facility] Last Admin: 01/13/17 08:41 Dose: 0.4 mg Tiotropium [place] (Spiriva -) 1 puff IH DAILY [facility] Last Admin: 01/13/17 09:03 Dose: 1 puff Torsemide (Demadex -) 100 mg PO DAILY [facility] Last Admin: 01/13/17 09:11 Dose: 100 mg Trazodone HCl (Desyrel -) 100 mg PO HS [facility] Last Admin: 01/12/17 22:16 Dose: 100 mg - Objective Vital Signs: Vital Signs Temperature 98.3 F 01/13/17 09:30 Pulse Rate 84 01/13/17 09:30 Respiratory Rate 19 01/13/17 09:30 Blood Pressure 102/51 01/13/17 09:30 O2 Sat by Pulse Oximetry (%) 93 L 01/12/17 21:00 Constitutional: Yes: Well Nourished, Calm Eyes: Yes: WNL HENT: Yes: WNL Neck: Yes: WNL Cardiovascular: Yes: Regular Rate and Rhythm, S1, S2 Respiratory: Yes: Diminished Gastrointestinal: Yes: Normal Bowel Sounds, Soft Extremities: Yes: WNL Edema: No Labs: CBC, BMP 01/13/17 06:00 01/13/17 06:00 INR, PTT INR 1.37 (0.82-1.09) H 01/09/17 05:35 Problem List - Problems (1) Lung cancer Code(s): C34.90 - MALIGNANT NEOPLASM OF UNSP PART OF UNSP BRONCHUS OR LUNG (2) Acute urinary retention Code(s): R33.8 - OTHER RETENTION OF URINE (3) Anticoagulant long-term use Code(s): Z79.01 - INTERMEDIATE (CURRENT) USE OF 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 (4) Bladder outlet obstruction Code(s): N32.0 - BLADDER-NECK OBSTRUCTION (5) COPD (chronic obstructive pulmonary disease) Code(s): J44.9 - CHRONIC OBSTRUCTIVE PULMONARY DISEASE, UNSPECIFIED Qualifiers: Qualified Code(s): J42 - Unspecified chronic bronchitis (6) Hyperglycemia Code(s): R73.9 - HYPERGLYCEMIA, UNSPECIFIED (7) Leukocytosis Code(s): D72.829 - ELEVATED WHITE BLOOD CELL COUNT, UNSPECIFIED (8) Morbid obesity Code(s): E66.01 - MORBID (SEVERE) OBESITY DUE TO EXCESS CALORIES (9) Obstructive uropathy Code(s): N13.9 - OBSTRUCTIVE AND REFLUX UROPATHY, UNSPECIFIED (10) Pleural effusion, right Code(s): J90 - PLEURAL EFFUSION, NOT ELSEWHERE CLASSIFIED (11) CHF (congestive heart failure) Code(s): I50.9 - HEART FAILURE, UNSPECIFIED Qualifiers: (12) Acute on chronic systolic and diastolic heart failure, NYHA class 4 Code(s): I50.43 - ACUTE ON CHRONIC COMBINED SYSTOLIC AND DIASTOLIC HRT FAIL (13) COPD (chronic obstructive pulmonary disease) case management patient Code(s): QDB3934 - (14) Dyspnea on exertion Code(s): R06.09 - OTHER FORMS OF DYSPNEA (15) Heart failure, systolic, with acute decompensation Code(s): I50.23 - ACUTE ON CHRONIC SYSTOLIC (CONGESTIVE) HEART FAILURE (16) Hx of CABG Code(s): Z95.1 - PRESENCE OF AORTOCORONARY BYPASS GRAFT (17) Ischemic cardiomyopathy Code(s): I25.5 - ISCHEMIC CARDIOMYOPATHY (18) LV dysfunction Code(s): I51.9 - HEART DISEASE, UNSPECIFIED (19) S/P CABG (coronary artery bypass graft) Code(s): Z95.1 - PRESENCE OF AORTOCORONARY BYPASS GRAFT (20) Single implantable cardioverter-defibrillator (ICD) in situ Code(s): Z95.810 - PRESENCE OF AUTOMATIC (IMPLANTABLE) CARDIAC DEFIBRILLATOR (21) Tobacco abuse Code(s): Z72.0 - TOBACCO USE (22) Obstructive sleep apnea of adult Code(s): G47.33 - OBSTRUCTIVE SLEEP APNEA (ADULT) (PEDIATRIC) Assessment/Plan IMP DYSPNEA IMPROVING ACUTE ON CHRONIC CHF HEMOTHORAX COPD ON HOME O2 CHRONIC HYPOXEMIC RESPIRATORY FAILURE ASHD S/P CABG S/P CARDIAC ARREST S/P ICD OBSTRUCTIVE UROPATHY URINARY RETENTION ACUTE ON CHRONIC KIDNEY DISEASE POORLY CONTROLLED DM LUNG CA S/P RT GOUT OSAS PLAN O2 INHALED BRONCHODILATORS MONITOR LYTES,RENAL FUNCTION GLYCEMIC CONTROL CONTINUE TO MONITOR CHEST TUBE DRAINAGE MAY REQUIRE VAT CHEST X-RAY AM DR BARBOSA Problem List - Problems (1) Lung cancer Code(s): C34.90 - MALIGNANT NEOPLASM OF UNSP PART OF UNSP BRONCHUS OR LUNG (2) Acute urinary retention Code(s): R33.8 - OTHER RETENTION OF URINE (3) Anticoagulant long-term use Code(s): Z79.01 - INTERMEDIATE (CURRENT) USE OF 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 (4) Bladder outlet obstruction Code(s): N32.0 - BLADDER-NECK OBSTRUCTION (5) COPD (chronic obstructive pulmonary disease) Code(s): J44.9 - CHRONIC OBSTRUCTIVE PULMONARY DISEASE, UNSPECIFIED Qualifiers: COPD type: chronic bronchitis Chronic bronchitis type: unspecified Qualified Code(s): J42 - Unspecified chronic bronchitis (6) Hyperglycemia Code(s): R73.9 - HYPERGLYCEMIA, UNSPECIFIED (7) Leukocytosis Code(s): D72.829 - ELEVATED WHITE BLOOD CELL COUNT, UNSPECIFIED (8) Morbid obesity Code(s): E66.01 - MORBID (SEVERE) OBESITY DUE TO EXCESS CALORIES (9) Obstructive uropathy Code(s): N13.9 - OBSTRUCTIVE AND REFLUX UROPATHY, UNSPECIFIED (10) Pleural effusion, right Code(s): J90 - PLEURAL EFFUSION, NOT ELSEWHERE CLASSIFIED (11) CHF (congestive heart failure) Code(s): I50.9 - HEART FAILURE, UNSPECIFIED Qualifiers: (12) Acute on chronic systolic and diastolic heart failure, NYHA class 4 Code(s): I50.43 - ACUTE ON CHRONIC COMBINED SYSTOLIC AND DIASTOLIC HRT FAIL (13) COPD (chronic obstructive pulmonary disease) case management patient Code(s): WLN3288 - (14) Dyspnea on exertion Code(s): R06.09 - OTHER FORMS OF DYSPNEA (15) Heart failure, systolic, with acute decompensation Code(s): I50.23 - ACUTE ON CHRONIC SYSTOLIC (CONGESTIVE) HEART FAILURE (16) Hx of CABG Code(s): Z95.1 - PRESENCE OF AORTOCORONARY BYPASS GRAFT (17) Ischemic cardiomyopathy Code(s): I25.5 - ISCHEMIC CARDIOMYOPATHY (18) LV dysfunction Code(s): I51.9 - HEART DISEASE, UNSPECIFIED (19) S/P CABG (coronary artery bypass graft) Code(s): Z95.1 - PRESENCE OF AORTOCORONARY BYPASS GRAFT (20) Single implantable cardioverter-defibrillator (ICD) in situ Code(s): Z95.810 - PRESENCE OF AUTOMATIC (IMPLANTABLE) CARDIAC DEFIBRILLATOR (21) Tobacco abuse Code(s): Z72.0 - TOBACCO USE (22) Obstructive sleep apnea of adult Code(s): G47.33 - OBSTRUCTIVE SLEEP APNEA (ADULT) (PEDIATRIC)
[2017-01-13] MEDS: traZODone HCL 50 MG TABLET (FP) PO SCH (21:30)
[2017-01-14] MEDS: oxyCODONE HCL 5 MG TABLET PO PRN ×2 (05:00→17:08)
[2017-01-14] MEDS: DOCUSATE SODIUM 100 MG CAPSULE (FP) PO SCH ×3 (05:41→21:42)
[2017-01-14] MEDS: INSULIN SLIDING SCALE (NOVOLOG) 1 VIAL SQ SCH ×4 (06:28→21:34)
[2017-01-14] MEDS: INSULIN (NOVOLOG MIX 70/30) 100 UNITS/ML MDV SQ SCH ×2 (06:53→17:06)
[2017-01-14] MEDS: INSULIN DETEMIR 100 UNITS/ML MDV SQ SCH ×2 (06:54→17:06)
[2017-01-14 07:08] LABS: BASOPHIL 0.4 % (0-2.0); EOSINOPHIL 2.5 % (0-4.5); MCH 29.8 pg (25.7-33.7); MEAN CELL VOLUME 90.4 fl (80-96); MEAN PLT VOLUME 8.6 fl (7.5-11.1); NEUTROPHILS 79.8 % (42.8-82.8); PLATELET COUNT 172 K/MM3 (134-434); RDW 14.6 % (11.9-15.9); WHITE BLOOD COUNT 15.4 K/mm3 (4.0-10.0)
[2017-01-14 07:25] LABS: ANION GAP 5 (8-16); CALCIUM 7.7 mg/dL (8.5-10.1); CO2 32 mmol/L (21-32); CREATININE 1.7 mg/dL (0.7-1.3); GLUCOSE,RANDOM 128 mg/dL (74-106)
[2017-01-14] MEDS: TAMSULOSIN HCL 0.4 MG CAP.ER.24H (FP) PO SCH (08:04)
--- NOTE | 2017-01-14 08:16 | PN ---
Progress Note (short form) - Note Progress Note: Chief Complaint: Events noted, notes reviewed, denies any chest pain or dyspnea , continues to report of discomfort at the chest tube insertion site although severity has decreased History of Present Illness: Seen and examined on telemetry earlier today. Events noted, notes reviewed, denies any chest pain or dyspnea, continues to report of discomfort at the chest tube insertion site although severity has decreased Patient admits to excessive fluid intake Echocardiography 08/14/2016 revealed severe LV systolic dysfunction with global hypokinesia, mild MR, mild TR Medications: Current Medications Carvedilol (Coreg -) 6.25 mg PO BID [facility] Last Admin: 01/13/17 21:30 Dose: 6.25 mg Docusate Sodium (Colace -) 100 mg PO TID [facility] Last Admin: 01/14/17 05:41 Dose: 100 mg Gabapentin (Neurontin -) 100 mg PO BID [facility] Last Admin: 01/13/17 21:30 Dose: 100 mg Insulin Aspart (Novolog Mix 70/30 Vial) 15 units SQ BIDAC [facility] Last Admin: 01/14/17 06:53 Dose: 15 units Insulin Aspart (Novolog Vial Sliding Scale -) 1 vial SQ ACHS [facility] PRN Reason: Protocol Last Admin: 01/14/17 06:28 Dose: Not Given Insulin Detemir (Levemir Vial) 50 units SQ BIDI [facility] Last Admin: 01/14/17 06:54 Dose: 50 units Oxycodone HCl (Roxicodone -) 5 mg PO Q6H PRN PRN Reason: PAIN Last Admin: 01/14/17 05:00 Dose: 5 mg Ranitidine HCl (Zantac -) 150 mg PO DAILY [facility] Last Admin: 01/13/17 09:04 Dose: 150 mg Rivaroxaban (Xarelto -) 15 mg PO DAILY [facility] Last Admin: 01/13/17 09:11 Dose: 15 mg Senna (Senna -) 2 tab PO DAILY [facility] Last Admin: 01/13/17 09:04 Dose: 2 tab Tamsulosin HCl (Flomax -) 0.4 mg PO DAILY@0830 [facility] Last Admin: 01/13/17 08:41 Dose: 0.4 mg Tiotropium [place] (Spiriva -) 1 puff IH DAILY [facility] Last Admin: 01/13/17 09:03 Dose: 1 puff Torsemide (Demadex -) 100 mg PO DAILY [facility] Last Admin: 01/13/17 09:11 Dose: 100 mg Trazodone HCl (Desyrel -) 100 mg PO HS [facility] Last Admin: 01/13/17 21:30 Dose: 100 mg Review of Systems Cardiovascular: As noted above Respiratory: denies: Cough or Sputum Production Gastrointestinal: denies: Nausea, Vomiting, Diarrhea, Constipation or Abdominal Discomfort Musculoskeletal: No Symptoms Reported Endocrine: No Symptoms Reported Vital Signs: Last Vital Signs Temp Pulse Resp BP Pulse Ox 98.2 F 68 20 105/61 93 L 01/14/17 07:49 01/14/17 07:49 01/14/17 07:49 01/14/17 07:49 01/14/17 07:56 Intake & Output 01/11/17 01/12/17 01/13/17 01/14/17 23:59 23:59 23:59 23:59 Intake Total 200 800 720 Output Total 1850 700 30 Balance -1650 100 690 Weight 232 lb 235 lb Constitutional: No Distress, Calm Neck: Supple Negative JVD No Bruit Respiratory: Diminished Breath Sounds at the Bases Cardiovascular: S1 S2 Regular Rate and Rhythm Grade 1-2/6 SM Gastrointestinal: Soft Benign Normal Bowel Sounds Ext: Negative Edema Labs: CBC, BMP 01/14/17 06:00 01/14/17 06:00 Hepatic Panel Total Bilirubin 0.8 mg/dL (0.2-1.0) 01/13/17 06:00 AST 26 U/L (15-37) 01/13/17 06:00 ALT 25 U/L (12-78) 01/13/17 06:00 Alkaline Phosphatase 391 U/L (45-117) H 01/13/17 06:00 Albumin 2.1 g/dl (3.4-5.0) L 01/13/17 06:00 INR, PTT INR 1.37 (0.82-1.09) H 01/09/17 05:35 Assessment/Plan ASSESSMENT: 1. Systolic LV dysfunction with chronic class II-III NYHA classification heart failure (ischemic dilated cardiomyopathy with pulmonary HTN), pleural effusion post chest tube insertion, for further intervention possible VATS 2. Bladder outlet obstruction with ecoli bacteremia secondary to UTI/presumed prostatitis, resolved 3. MRSA left forearm abscess, resolved 4. CAD post MD/CABG, angina pectoris 5. History of cardiac arrest post ICD 6. Persistent atrial fibrillation on NOAC's 7. HTN 8. DM 9. Hypercholesterolemia 10. History of CVA 11. Chronic hypoxic respiratory failure with home O2 dependent COPD 12. OSAS noncompliant with CPAP 13. Acute on CKD 14. History of RLE DVT 15. Anemia 16. Morbid obesity PLAN: 1. Continue Demadex with close monitoring of renal function and electrolytes 2. Continue Carvedilol 3. Ideally ARBS therapy to be resumed once renal function stabilized 4. Continue Xarelto with close monitoring of CBC 5. As outlined in yesterday's note considering patient's advanced heart failure syndrome and advanced co-morbidities patient is at increased risk for anesthesia /VATS, to be discussed further with thoracic surgery service and pulmonary service as to the extent of the planned intervention (if prolonged anesthesia is required patient may benefit from close hemodynamic monitoring pre and post operatively, ideally insertion of a [place] catheter) Above was discussed in detail with the patient and his who was at the bedside Ashwin Pittman MD
[2017-01-14] MEDS ORDERED: PT OWN MED DRAWER 7, Y5N ONE ×2 (09:14→21:41)
[2017-01-14] MEDS: CARVEDILOL 6.25 MG TABLET (FP) PO SCH ×2 (09:31→21:42)
[2017-01-14] MEDS: TIOTROPIUM BROMIDE 18 MCG/INH (DEVICE W/ 5 CAPSULES) IH SCH (09:32)
[2017-01-14] MEDS: RANITIDINE HCL 150 MG TABLET (FP) PO SCH (09:32)
[2017-01-14] MEDS: TORSEMIDE 100 MG TABLET PO SCH ×3 (09:32→21:42)
[2017-01-14] MEDS: GABAPENTIN 100 MG CAPSULE (FP) PO SCH ×2 (09:32→21:42)
[2017-01-14] MEDS: SENNOSIDES 8.6MG TABLET (FP) PO SCH (10:25)
[2017-01-14] MEDS: RIVAROXABAN 15 MG TABLET PO SCH (10:26)
--- NOTE | 2017-01-14 10:51 | PN ---
Teaching Attending Note Name of Resident: Kyara Hair ATTENDING PHYSICIAN STATEMENT I saw and evaluated the patient. I reviewed the resident's note and discussed the case with the resident. I agree with the resident's findings and plan as documented. SUBJECTIVE:c/o feeling congested and bloated. denies CP, SOB, fever, chills, orthopnea, N/V/D. No BM in 4 days OBJECTIVE: Last Vital Signs Temp Pulse Resp BP Pulse Ox 98.2 F 68 20 105/61 93 L 01/14/17 07:49 01/14/17 07:49 01/14/17 07:49 01/14/17 07:49 01/14/17 07:56 Intake & Output 01/11/17 01/12/17 01/13/17 01/14/17 23:59 23:59 23:59 23:59 Intake Total 200 800 720 Output Total 1850 700 30 Balance -1650 100 690 Weight 232 lb 235 lb General NAD CV S1 S2+ Lungs crackles B/L decreased breath sounds R lung field. Abdomen soft NT/ND Extremities no pitting edema ASSESSMENT AND PLAN: 61yo M wtih PMH HTN, HLD, idiopathic dilated cardiomyopathy, systolic heart failure s/p PPM/AICD, CAD s/p CABG x4, h/o DVT on Xarelto, COPD on home O2, CKD , IDDM, lung cancer s/p radiation (2017), prostatitis, MRSA abscess left forearm , hepatitis B presented to the ER with difficulty urinating and generalized weakness 1. Urinary retention- likely BPH. s/p cade placement and 2L output. freely voiding. will monitor kidney fx. on flomax. 2. Acute on CKD- likely obstructive uropathy.improving. monitor with increaseing toresmide. renal dose medications. 3. DM-A1c 14.2. not compliant at home. improved. endo consulted. cont insulin. titrate to optimize control 4. Sepsis due to suspected PNA vs complicated pleural effusion/hemothoarx- afebrile. s/p chest tube placement 01/11. minimal output last 24H. repeat CXR this AM shows no change. may need VATS if does not improve. pt is poor surgical candidate. off abx. CT surgery, ID and pulmonary on board. 5. NSVT- 1 run of NSVT. cont current medications. 6. ACyte blood loss anemia- slight down trend in Hgb. +hemothorax. cont to monitor closely while on anticoagulation. no indication for Txn 7. acute on chronic systolic CHF- starting develop increase congestion in L lung field. will increase toresmide to home dose. cont strict I&O, daily weights , fluid restriction. 8. Constipation- no BM 4 days. possible opiate induced vs minimal activity. encourage OOB to chair. start stool softeners 9. COPD on Home O2- periods of desaturation. -possible due to hemothorax however also likely underlying CHRSITINA. cont to titrate supplemental oxygen to maintain spO2 >90% 10. DVT on xarelto- xarelto 11. PAF- as per cardio has hx of afib with high [id number] score. currently NSR. on coreg, Xarelto 12. DVT ppx -xarelto
--- NOTE | 2017-01-14 11:30 | PN ---
Physical Exam: SUBJECTIVE: Patient seen and examined, sitting up in bed. Frustrated about his medical conditions. NO events overnight. Telemetry reviewed, few 3second runs of v tach; NO new complaints. Denies chest pain, shortness of breath. Chest tube draining 30cc last 24hrs. O2 saturation 90s on NC. OBJECTIVE: Vital Signs Period Temp Pulse Resp BP Sys/Mcconnell Pulse Ox Last 24 Hr 97.4 F-98.4 F 68-76 18-20 101-121/50-94 93-95 GENERAL: The patient is awake, alert, and fully oriented, in no acute distress. HEAD: Normal with no signs of trauma. LUNGS: decreased Breath sounds no wheezes, bibasilar crackles, no accessory muscle use. HEART: Regular rate and rhythm, S1, S2 without murmur, rub or gallop. ABDOMEN: Soft, nontender, nondistended, normoactive bowel sounds, no guarding, no rebound, no hepatosplenomegaly, no masses. EXTREMITIES: 2+ pulses, warm, well-perfused,+ edema. PSYCH: Normal mood, normal affect, frustrated SKIN: Warm, dry, normal turgor, no rashes or lesions noted Laboratory Results - last 24 hr 01/13/17 01/13/17 01/13/17 12:12 17:29 20:43 WBC RBC Hgb Hct MCV MCH MCHC RDW Plt Count MPV Neutrophils % Lymphocytes % Monocytes % Eosinophils % Basophils % Sodium Potassium Chloride Carbon Dioxide Anion Gap BUN Creatinine POC Glucometer 196 269 320 Random Glucose Calcium 01/14/17 01/14/17 01/14/17 06:00 06:00 06:26 WBC 15.4 H RBC 3.67 L Hgb 10.9 L Hct 33.2 L MCV 90.4 MCH 29.8 MCHC 33.0 RDW 14.6 Plt Count 172 MPV 8.6 Neutrophils % 79.8 Lymphocytes % 4.9 L Monocytes % 12.4 H Eosinophils % 2.5 Basophils % 0.4 Sodium 136 Potassium 4.0 Chloride 99 Carbon Dioxide 32 Anion Gap 5 L BUN 68 H Creatinine 1.7 H POC Glucometer 119 Random Glucose 128 H D Calcium 7.7 L Active Medications Generic Name Dose Route Start Last Admin Trade Name Freq PRN Reason Stop Dose Admin Carvedilol 6.25 mg 01/08/17 21:52 01/14/17 09:31 Coreg - PO 6.25 mg BID [facility] Administration Docusate Sodium 100 mg 01/08/17 22:03 01/14/17 05:41 Colace - PO 100 mg TID [facility] Administration Gabapentin 100 mg 01/09/17 22:00 01/14/17 09:32 Neurontin - PO 100 mg BID [facility] Administration Insulin Aspart 15 units 01/09/17 16:30 01/14/17 06:53 Novolog Mix 70/30 Vial SQ 15 units BIDAC [facility] Administration Insulin Aspart 1 vial 01/09/17 16:30 01/14/17 06:28 Novolog Vial Sliding Scale - SQ Not Given ACHS [facility] Protocol Insulin Detemir 50 units 01/09/17 16:30 01/14/17 06:54 Levemir Vial SQ 50 units BIDI [facility] Administration Oxycodone HCl 5 mg 01/10/17 14:03 01/14/17 05:00 Roxicodone - PO 5 mg Q6H PRN Administration PAIN Ranitidine HCl 150 mg 01/10/17 10:00 01/14/17 09:32 Zantac - PO 150 mg DAILY [facility] Administration Rivaroxaban 15 mg 01/13/17 10:00 01/14/17 10:26 Xarelto - PO 15 mg DAILY [facility] Administration Senna 2 tab 01/09/17 10:00 01/14/17 10:25 Senna - PO 2 tab DAILY [facility] Administration Tamsulosin HCl 0.4 mg 01/10/17 08:30 01/14/17 08:04 Flomax - PO 0.4 mg DAILY@0830 [facility] Administration Tiotropium [place] 1 puff 01/10/17 10:00 01/14/17 09:32 Spiriva - IH 1 puff DAILY [facility] Administration Torsemide 100 mg 01/14/17 10:00 01/14/17 09:33 Demadex - PO Not Given BID [facility] Trazodone HCl 100 mg 01/08/17 22:00 01/13/17 21:30 Desyrel - PO 100 mg HS [facility] Administration ASSESSMENT/PLAN: This is a 61 year old male with systolic LV dysfunction with chronic heart failure (ischemic dilated cardiomyopathy with pulmonary HTN), loculated bilateral pleural effusion s/p right chest tube insertion. May need VATs procedure if does not drain properly. #right hemithorax; etiology unknown if malignant effusion/trauma/AC induced? - s/p chest tube placement; -30cc in 24hr drained; -pre plan VAT for Weds, as per previous notes; discuss with CT surgeon -Cardio on board for clearance; there is concern for complications when undergoing anesthesia / may need swanz cath -appreciate recs #ischemic dilated cardiomyopathty chf; -has ACD; incr -inrease torsemide to home dose 100mg bid; -coreg 6.25 bid -strict I/O daily weights #chronic hypoxic respiratory failure secondary to COPD on O2 -saturating in 90s -cont bronchodilators #urinary retention secondary to bladder outlet obstruction with bacertemia secondary to UTI (resolved) -cont flomax #uncontrolled diabetes type II: -cont levemir, novolog 70/30 with insulin ss -bgm #constipation; has not had a BM on 4 days -increase bowel regimen; added mirolax 2acute on chronic kidney injury: improved -cr 1.7; rend bun.cr #hx of DVT: back on xarelto Disposition: discuss if ther is plan for VATs Visit type - Emergency Visit Emergency Visit: Yes ED Registration Date: 01/08/17 Care time: The patient presented to the Emergency Department on the above date and was hospitalized for further evaluation of their emergent condition. - New Patient This patient is new to me today: Yes Date on this admission: 01/14/17 - Critical Care Critical Care patient: No
--- NOTE | 2017-01-14 12:48 | PN ---
Progress Note, Physician History of Present Illness: PULMONARY AWAKE,-RESP DISTRESS,C/O ABD DISCOMFORT,-CP,+ MIN CHEST TUBE DRAINAGE. CHEST X- RAY -CHANGE - Current Medication List Current Medications: Active Medications Carvedilol (Coreg -) 6.25 mg PO BID [facility] Last Admin: 01/14/17 09:31 Dose: 6.25 mg Docusate Sodium (Colace -) 100 mg PO TID [facility] Last Admin: 01/14/17 05:41 Dose: 100 mg Gabapentin (Neurontin -) 100 mg PO BID [facility] Last Admin: 01/14/17 09:32 Dose: 100 mg Insulin Aspart (Novolog Mix 70/30 Vial) 15 units SQ BIDAC [facility] Last Admin: 01/14/17 06:53 Dose: 15 units Insulin Aspart (Novolog Vial Sliding Scale -) 1 vial SQ ACHS [facility] PRN Reason: Protocol Last Admin: 01/14/17 11:55 Dose: 2 units Insulin Detemir (Levemir Vial) 50 units SQ BIDI [facility] Last Admin: 01/14/17 06:54 Dose: 50 units Oxycodone HCl (Roxicodone -) 5 mg PO Q6H PRN PRN Reason: PAIN Last Admin: 01/14/17 05:00 Dose: 5 mg Polyethylene Glycol (Miralax (For Daily Use) -) 17 gm PO DAILY [facility] Ranitidine HCl (Zantac -) 150 mg PO DAILY [facility] Last Admin: 01/14/17 09:32 Dose: 150 mg Rivaroxaban (Xarelto -) 15 mg PO DAILY [facility] Last Admin: 01/14/17 10:26 Dose: 15 mg Senna (Senna -) 2 tab PO DAILY [facility] Last Admin: 01/14/17 10:25 Dose: 2 tab Tamsulosin HCl (Flomax -) 0.4 mg PO DAILY@0830 [facility] Last Admin: 01/14/17 08:04 Dose: 0.4 mg Tiotropium [place] (Spiriva -) 1 puff IH DAILY [facility] Last Admin: 01/14/17 09:32 Dose: 1 puff Torsemide (Demadex -) 100 mg PO BID [facility] Last Admin: 01/14/17 09:33 Dose: Not Given Trazodone HCl (Desyrel -) 100 mg PO HS [facility] Last Admin: 01/13/17 21:30 Dose: 100 mg - Objective Vital Signs: Vital Signs Temperature 98.2 F 01/14/17 07:49 Pulse Rate 68 01/14/17 07:49 Respiratory Rate 20 01/14/17 07:49 Blood Pressure 105/61 01/14/17 07:49 O2 Sat by Pulse Oximetry (%) 93 L 01/14/17 07:56 Constitutional: Yes: Well Nourished, Calm Eyes: Yes: WNL HENT: Yes: WNL Neck: Yes: WNL Cardiovascular: Yes: Regular Rate and Rhythm, S1, S2 Respiratory: Yes: Diminished (POOR INSPIRATORY EFFORT), Rales (BIBASILAR CRAKLES ) Gastrointestinal: Yes: Normal Bowel Sounds, Soft Extremities: Yes: WNL Edema: No Labs: CBC, BMP 01/14/17 06:00 01/14/17 06:00 INR, PTT INR 1.37 (0.82-1.09) H 01/09/17 05:35 Problem List - Problems (1) Lung cancer Code(s): C34.90 - MALIGNANT NEOPLASM OF UNSP PART OF UNSP BRONCHUS OR LUNG (2) Acute urinary retention Code(s): R33.8 - OTHER RETENTION OF URINE (3) Anticoagulant long-term use Code(s): Z79.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 (CURRENT) USE OF 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 (4) Bladder outlet obstruction Code(s): N32.0 - BLADDER-NECK OBSTRUCTION (5) COPD (chronic obstructive pulmonary disease) Code(s): J44.9 - CHRONIC OBSTRUCTIVE PULMONARY DISEASE, UNSPECIFIED Qualifiers: COPD type: chronic bronchitis Chronic bronchitis type: unspecified Qualified Code(s): J42 - Unspecified chronic bronchitis (6) Hyperglycemia Code(s): R73.9 - HYPERGLYCEMIA, UNSPECIFIED (7) Leukocytosis Code(s): D72.829 - ELEVATED WHITE BLOOD CELL COUNT, UNSPECIFIED (8) Morbid obesity Code(s): E66.01 - MORBID (SEVERE) OBESITY DUE TO EXCESS CALORIES (9) Obstructive uropathy Code(s): N13.9 - OBSTRUCTIVE AND REFLUX UROPATHY, UNSPECIFIED (10) Pleural effusion, right Code(s): J90 - PLEURAL EFFUSION, NOT ELSEWHERE CLASSIFIED (11) CHF (congestive heart failure) Code(s): I50.9 - HEART FAILURE, UNSPECIFIED Qualifiers: (12) Acute on chronic systolic and diastolic heart failure, NYHA class 4 Code(s): I50.43 - ACUTE ON CHRONIC COMBINED SYSTOLIC AND DIASTOLIC HRT FAIL (13) COPD (chronic obstructive pulmonary disease) case management patient Code(s): PGB6552 - (14) Dyspnea on exertion Code(s): R06.09 - OTHER FORMS OF DYSPNEA (15) Heart failure, systolic, with acute decompensation Code(s): I50.23 - ACUTE ON CHRONIC SYSTOLIC (CONGESTIVE) HEART FAILURE (16) Hx of CABG Code(s): Z95.1 - PRESENCE OF AORTOCORONARY BYPASS GRAFT (17) Ischemic cardiomyopathy Code(s): I25.5 - ISCHEMIC CARDIOMYOPATHY (18) LV dysfunction Code(s): I51.9 - HEART DISEASE, UNSPECIFIED (19) S/P CABG (coronary artery bypass graft) Code(s): Z95.1 - PRESENCE OF AORTOCORONARY BYPASS GRAFT (20) Single implantable cardioverter-defibrillator (ICD) in situ Code(s): Z95.810 - PRESENCE OF AUTOMATIC (IMPLANTABLE) CARDIAC DEFIBRILLATOR (21) Tobacco abuse Code(s): Z72.0 - TOBACCO USE (22) Obstructive sleep apnea of adult Code(s): G47.33 - OBSTRUCTIVE SLEEP APNEA (ADULT) (PEDIATRIC) Assessment/Plan IMP DYSPNEA IMPROVING ACUTE ON CHRONIC CHF HEMOTHORAX S/P CHEST TUBE WITH MIN DRAINAGE COPD ON HOME O2 CHRONIC HYPOXEMIC RESPIRATORY FAILURE ASHD S/P CABG S/P CARDIAC ARREST S/P ICD OBSTRUCTIVE UROPATHY URINARY RETENTION ACUTE ON CHRONIC KIDNEY DISEASE POORLY CONTROLLED DM LUNG CA S/P RT GOUT OSAS PLAN O2 INHALED BRONCHODILATORS MONITOR LYTES,RENAL FUNCTION GLYCEMIC CONTROL CONTINUE TO MONITOR CHEST TUBE DRAINAGE MAY REQUIRE VAT DR BARBOSA Problem List - Problems (1) Lung cancer Code(s): C34.90 - MALIGNANT NEOPLASM OF UNSP PART OF UNSP BRONCHUS OR LUNG (2) Acute urinary retention Code(s): R33.8 - OTHER RETENTION OF URINE (3) Anticoagulant long-term use Code(s): Z79.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 (CURRENT) USE OF 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 (4) Bladder outlet obstruction Code(s): N32.0 - BLADDER-NECK OBSTRUCTION (5) COPD (chronic obstructive pulmonary disease) Code(s): J44.9 - CHRONIC OBSTRUCTIVE PULMONARY DISEASE, UNSPECIFIED Qualifiers: COPD type: chronic bronchitis Chronic bronchitis type: unspecified Qualified Code(s): J42 - Unspecified chronic bronchitis (6) Hyperglycemia Code(s): R73.9 - HYPERGLYCEMIA, UNSPECIFIED (7) Leukocytosis Code(s): D72.829 - ELEVATED WHITE BLOOD CELL COUNT, UNSPECIFIED (8) Morbid obesity Code(s): E66.01 - MORBID (SEVERE) OBESITY DUE TO EXCESS CALORIES (9) Obstructive uropathy Code(s): N13.9 - OBSTRUCTIVE AND REFLUX UROPATHY, UNSPECIFIED (10) Pleural effusion, right Code(s): J90 - PLEURAL EFFUSION, NOT ELSEWHERE CLASSIFIED (11) CHF (congestive heart failure) Code(s): I50.9 - HEART FAILURE, UNSPECIFIED Qualifiers: (12) Acute on chronic systolic and diastolic heart failure, NYHA class 4 Code(s): I50.43 - ACUTE ON CHRONIC COMBINED SYSTOLIC AND DIASTOLIC HRT FAIL (13) COPD (chronic obstructive pulmonary disease) case management patient Code(s): [id number] - (14) Dyspnea on exertion Code(s): R06.09 - OTHER FORMS OF DYSPNEA (15) Heart failure, systolic, with acute decompensation Code(s): I50.23 - ACUTE ON CHRONIC SYSTOLIC (CONGESTIVE) HEART FAILURE (16) Hx of CABG Code(s): Z95.1 - PRESENCE OF AORTOCORONARY BYPASS GRAFT (17) Ischemic cardiomyopathy Code(s): I25.5 - ISCHEMIC CARDIOMYOPATHY (18) LV dysfunction Code(s): I51.9 - HEART DISEASE, UNSPECIFIED (19) S/P CABG (coronary artery bypass graft) Code(s): Z95.1 - PRESENCE OF AORTOCORONARY BYPASS GRAFT (20) Single implantable cardioverter-defibrillator (ICD) in situ Code(s): Z95.810 - PRESENCE OF AUTOMATIC (IMPLANTABLE) CARDIAC DEFIBRILLATOR (21) Tobacco abuse Code(s): Z72.0 - TOBACCO USE (22) Obstructive sleep apnea of adult Code(s): G47.33 - OBSTRUCTIVE SLEEP APNEA (ADULT) (PEDIATRIC)
[2017-01-14] MEDS: POLYETHYLENE GLYCOL 3350 119 GM BTL PO SCH (14:17)
[2017-01-14] MEDS: traZODone HCL 50 MG TABLET (FP) PO SCH (21:42)
[2017-01-15] MEDS: DOCUSATE SODIUM 100 MG CAPSULE (FP) PO SCH ×3 (05:54→21:21)
[2017-01-15] MEDS: oxyCODONE HCL 5 MG TABLET PO PRN ×2 (05:54→21:21)
[2017-01-15] MEDS: INSULIN (NOVOLOG MIX 70/30) 100 UNITS/ML MDV SQ SCH ×2 (06:48→17:38)
[2017-01-15] MEDS: INSULIN DETEMIR 100 UNITS/ML MDV SQ SCH ×2 (06:48→17:38)
[2017-01-15] MEDS: INSULIN SLIDING SCALE (NOVOLOG) 1 VIAL SQ SCH ×4 (06:49→21:37)
[2017-01-15 07:04] LABS: MCH 29.9 pg (25.7-33.7); MEAN CELL VOLUME 90.6 fl (80-96); MEAN PLT VOLUME 8.5 fl (7.5-11.1); PLATELET COUNT 215 K/MM3 (134-434); RDW 14.7 % (11.9-15.9)
--- NOTE | 2017-01-15 07:25 | PN ---
Physical Exam: SUBJECTIVE: Patient seen and examined. Doing well. States he has no complaints. Incisional pain is gone. No CP, SOB, fevers, chills OBJECTIVE: Vital Signs Period Temp Pulse Resp BP Sys/Mcconnell Pulse Ox Last 24 Hr 97.8 F-98.4 F 60-72 18-20 96-114/56-68 93-93 GEN: AAOx3, not in acute distress HEENT: PERRLA, EOMi CV: S1, S2, RRR LUNG: Right basal crackles ABD: Soft, NT, ND, obese MSK: Venous stasis changes on both legs, no edema Active Medications Generic Name Dose Route Start Last Admin Trade Name Freq PRN Reason Stop Dose Admin Carvedilol 6.25 mg 01/08/17 21:52 01/14/17 21:42 Coreg - PO 6.25 mg BID [facility]EN Administration Docusate Sodium 100 mg 01/08/17 22:03 01/15/17 05:54 Colace - PO 100 mg TID MAGEN Administration Gabapentin 100 mg 01/09/17 22:00 01/14/17 21:42 Neurontin - PO 100 mg BID [facility] Administration Insulin Aspart 15 units 01/09/17 16:30 01/15/17 06:48 Novolog Mix 70/30 Vial SQ Not Given BIDAC [facility] Insulin Aspart 1 vial 01/09/17 16:30 01/15/17 06:49 Novolog Vial Sliding Scale - SQ Not Given ACHS [facility] Protocol Insulin Detemir 50 units 01/09/17 16:30 01/15/17 06:48 Levemir Vial SQ Not Given BIDI [facility] Oxycodone HCl 5 mg 01/10/17 14:03 01/15/17 05:54 Roxicodone - PO 5 mg Q6H PRN Administration PAIN Polyethylene Glycol 17 gm 01/14/17 11:45 01/14/17 14:17 Miralax (For Daily Use) - PO 17 grams DAILY [facility] Administration Ranitidine HCl 150 mg 01/10/17 10:00 01/14/17 09:32 Zantac - PO 150 mg DAILY [facility] Administration Rivaroxaban 15 mg 01/13/17 10:00 01/14/17 10:26 Xarelto - PO 15 mg DAILY [facility] Administration Senna 2 tab 01/09/17 10:00 01/14/17 10:25 Senna - PO 2 tab DAILY [facility] Administration Tamsulosin HCl 0.4 mg 01/10/17 08:30 01/14/17 08:04 Flomax - PO 0.4 mg DAILY@0830 [facility] Administration Tiotropium [place] 1 puff 01/10/17 10:00 01/14/17 09:32 Spiriva - IH 1 puff DAILY [facility] Administration Torsemide 100 mg 01/14/17 10:00 01/14/17 21:42 Demadex - PO 100 mg BID [facility] Administration Trazodone HCl 100 mg 01/08/17 22:00 01/14/17 21:42 Desyrel - PO 100 mg HS [facility] Administration ASSESSMENT/PLAN: Mr. Holley is a 61yo M with PMHx of Ischemic cardiomyopathy, Systolic CHF, AICD s/ p cardiac arrest, COPD on home O2, BPH on Flomax. He presented to the ER with 2- 3 day hx of generalized weakness and fatigue, found to be in acute decompensated CHF and possible Pneumonia # Right Hemothorax - Possibly secondary to anticoagulation vs malignant effusion. Increased in size during admission. Xarelto held. CT surgery on board. Chest tube placed draining brinda blood. CXR is improved from yesterday. VATS is in consideration, however high risk procedure for general sedation since pt has low functional status. Will try to see if patient does well with conservative mgmt for now. # Hx of DVT - Patient on Xarelto for R DVT and paroxsymal Afib with high risk of stroke and DVT formation. Discussed with Cardiology and CT surgery, ok to start anticoagulation. On Xarelto # Ischemic Cardiomyopathy - Pt has AICD. Continue Torsemide 100mg QD, net I&O negative so far, not fluid overloaded. Coreg 6.25 BID with holding parameters. BP is improving # CHF - Restarted Torsemide 100mg BID # Urinary Retention - Likely from BPH, UA neg. Continue Flomax 0.4mg daily, MARCIAL improved # Uncontrolled DM2 - A1C 14.2, Endocrine following, BGMs 119-226. Continue Levemir 50u BID + Novolog 70/30 15u BIDAC + SSI. # Elevated ALP - Resolving, likely 2/2 cirrhotic liver # Chronic Back Pain - Placed on Oxycodone 5mg Q6H PRN, has used it at home with relief. # Hx of COPD - On home O2 3L RTC, Continue Spiriva daily # Hx of Gout - Not on home Allopurinol due to MARCIAL # Hx of MDD - Continue Trazodone 100mg HS # Diabetic Neuropathy - Gabapentin 100 BID # Hx of Constipation - Continue Docusate and Senna # Hx of Allergies - Continue Ranitidine # FEN - Not on fluids, elec, diabetic low sodium diet # PPx - Xarelto, no GI needed, Walked 5 feet with PT, encourage OOB to chair # Dispo - Will try to manage hemothorax conservatively with chest tube, hold off on VATS for now. Will re-assess tmrw. Informed nurses and nursing assistants to encourage OOB to chair. d/w Dr Banerjee and Dr Wilfredo Carbajal MD - PGY1 Internal medicine Visit type - Emergency Visit Emergency Visit: No - New Patient This patient is new to me today: No - Critical Care Critical Care patient: No - Discharge Referral Referred to [facility] Med [facility] No
[2017-01-15 07:33] LABS: ANION GAP 5 (8-16); CALCIUM 8.3 mg/dL (8.5-10.1); CO2 34 mmol/L (21-32); GLUCOSE,RANDOM 66 mg/dL (74-106)
[2017-01-15 07:36] LABS: ALK PHOS 499 U/L (45-117); BILIRUBIN,TOTAL 0.9 mg/dL (0.2-1.0); CREATININE 1.7 mg/dL (0.7-1.3); SGOT/AST 22 U/L (15-37); SGPT/ALT 22 U/L (12-78); TOT PROT 6.9 g/dl (6.4-8.2)
[2017-01-15] MEDS ORDERED: PT OWN MED DRAWER 7, Y5N ONE ×3 (08:57→22:19)
[2017-01-15] MEDS: TIOTROPIUM BROMIDE 18 MCG/INH (DEVICE W/ 5 CAPSULES) IH SCH (09:09)
[2017-01-15] MEDS: TAMSULOSIN HCL 0.4 MG CAP.ER.24H (FP) PO SCH (09:09)
[2017-01-15] MEDS: GABAPENTIN 100 MG CAPSULE (FP) PO SCH ×2 (09:09→21:21)
[2017-01-15] MEDS: CARVEDILOL 6.25 MG TABLET (FP) PO SCH ×2 (09:09→21:21)
[2017-01-15] MEDS: SENNOSIDES 8.6MG TABLET (FP) PO SCH (09:09)
[2017-01-15] MEDS: RANITIDINE HCL 150 MG TABLET (FP) PO SCH (09:09)
[2017-01-15] MEDS: TORSEMIDE 100 MG TABLET PO SCH ×2 (09:10→21:22)
[2017-01-15] MEDS: RIVAROXABAN 15 MG TABLET PO SCH (09:10)
[2017-01-15 09:51] LABS: TOTAL CELLS COUNTED 100
[2017-01-15 09:52] LABS: METAMYELOCYTE 2 % (0-2); MYELOCYTE 2 % (0-2); PLATELET ESTIMATE ADEQUATE
--- NOTE | 2017-01-15 12:08 | PN ---
Progress Note, Physician Chief Complaint: Currently with chest tube. Further thoracic intervention specifically VAT is being decided History of Present Illness: Patient was seen and examined. Awake and alert. Chart was reviewed Denies chest pain or palpitation. - Current Medication List Current Medications: Active Medications Carvedilol (Coreg -) 6.25 mg PO BID [facility] Last Admin: 01/15/17 09:09 Dose: 6.25 mg Docusate Sodium (Colace -) 100 mg PO TID [facility] Last Admin: 01/15/17 05:54 Dose: 100 mg Gabapentin (Neurontin -) 100 mg PO BID [facility] Last Admin: 01/15/17 09:09 Dose: 100 mg Insulin Aspart (Novolog Mix 70/30 Vial) 15 units SQ BIDAC [facility] Last Admin: 01/15/17 06:48 Dose: Not Given Insulin Aspart (Novolog Vial Sliding Scale -) 1 vial SQ ACHS [facility] PRN Reason: Protocol Last Admin: 01/15/17 11:38 Dose: 2 units Insulin Detemir (Levemir Vial) 50 units SQ BIDI [facility] Last Admin: 01/15/17 06:48 Dose: Not Given Oxycodone HCl (Roxicodone -) 5 mg PO Q6H PRN PRN Reason: PAIN Last Admin: 01/15/17 05:54 Dose: 5 mg Polyethylene Glycol (Miralax (For Daily Use) -) 17 gm PO DAILY [facility] Last Admin: 01/14/17 14:17 Dose: 17 grams Ranitidine HCl (Zantac -) 150 mg PO DAILY [facility] Last Admin: 01/15/17 09:09 Dose: 150 mg Rivaroxaban (Xarelto -) 15 mg PO DAILY [facility] Last Admin: 01/15/17 09:10 Dose: 15 mg Senna (Senna -) 2 tab PO DAILY [facility] Last Admin: 01/15/17 09:09 Dose: 2 tab Tamsulosin HCl (Flomax -) 0.4 mg PO DAILY@0830 [facility] Last Admin: 01/15/17 09:09 Dose: 0.4 mg Tiotropium [place] (Spiriva -) 1 puff IH DAILY [facility] Last Admin: 01/15/17 09:09 Dose: 1 puff Torsemide (Demadex -) 100 mg PO BID [facility] Last Admin: 01/15/17 09:10 Dose: 100 mg Trazodone HCl (Desyrel -) 100 mg PO HS [facility] Last Admin: 01/14/17 21:42 Dose: 100 mg - Objective Vital Signs: Vital Signs Temperature 98.1 F 01/15/17 06:00 Pulse Rate 64 01/15/17 06:00 Respiratory Rate 20 01/15/17 06:00 Blood Pressure 109/63 01/15/17 06:00 O2 Sat by Pulse Oximetry (%) 93 L 01/14/17 21:00 Neck: Yes: Supple Cardiovascular: Yes: Regular Rate and Rhythm, Murmur (Soft SM), S1, S2 Respiratory: Yes: Diminished, Other (Chest tube inserted) Gastrointestinal: Yes: Normal Bowel Sounds, Soft. No: Tenderness Edema: No Additional Findings/Remarks: - Review of Systems Constitutional: denies: Chills, Fever Cardiovascular: reports: Shortness of Breath. denies: Chest Pain, Palpitations Respiratory: reports: Cough, SOB. (-) Hemoptysis, (-) Orthopnea, PND Gastrointestinal: denies: Abdominal Pain, Constipation, Diarrhea, Melena, Nausea , Rectal Bleeding, Vomiting Genitourinary: denies: Dysuria Neurological: denies: Dizziness, Headache, Seizure, Syncope Labs: CBC, BMP 01/15/17 05:40 01/15/17 05:40 Problem List - Problems (1) Bladder outlet obstruction Code(s): N32.0 - BLADDER-NECK OBSTRUCTION (2) COPD (chronic obstructive pulmonary disease) Code(s): J44.9 - CHRONIC OBSTRUCTIVE PULMONARY DISEASE, UNSPECIFIED Qualifiers: COPD type: chronic bronchitis Chronic bronchitis type: unspecified Qualified Code(s): J42 - Unspecified chronic bronchitis (3) Pleural effusion, right Code(s): J90 - PLEURAL EFFUSION, NOT ELSEWHERE CLASSIFIED (4) Acute on chronic systolic and diastolic heart failure, NYHA class 4 Code(s): I50.43 - ACUTE ON CHRONIC COMBINED SYSTOLIC AND DIASTOLIC HRT FAIL (5) Deep venous thrombosis Code(s): I82.409 - ACUTE EMBOLISM AND THOMBOS UNSP DEEP VN UNSP LOWER EXTREMITY Qualifiers: DVT location: lower extremity Affected thrombotic vein of extremity: unspecified vein of extremity Chronicity: acute Laterality: right Qualified Code(s): I82.401 - Acute embolism and thrombosis of unspecified deep veins of right lower extremity (6) Dyspnea on exertion Code(s): R06.09 - OTHER FORMS OF DYSPNEA (7) Hx of CABG Code(s): Z95.1 - PRESENCE OF AORTOCORONARY BYPASS GRAFT (8) Ischemic cardiomyopathy Code(s): I25.5 - ISCHEMIC CARDIOMYOPATHY (9) LV dysfunction Code(s): I51.9 - HEART DISEASE, UNSPECIFIED (10) Lung nodule Code(s): R91.1 - SOLITARY PULMONARY NODULE (11) Severe left ventricular systolic dysfunction Code(s): I51.9 - HEART DISEASE, UNSPECIFIED (12) Single implantable cardioverter-defibrillator (ICD) in situ Code(s): Z95.810 - PRESENCE OF AUTOMATIC (IMPLANTABLE) CARDIAC DEFIBRILLATOR (13) ASHD (arteriosclerotic heart disease) Code(s): I25.10 - ATHSCL HEART DISEASE OF [place] CORONARY ARTERY W/O ANG PCTRS (14) CKD (chronic kidney disease) Code(s): N18.9 - CHRONIC KIDNEY DISEASE, UNSPECIFIED Qualifiers: Chronic kidney disease stage: stage 3 (moderate) Qualified Code(s): N18.3 - Chronic kidney disease, stage 3 (moderate) (15) Diabetes mellitus Code(s): E11.9 - TYPE 2 DIABETES MELLITUS WITHOUT COMPLICATIONS Qualifiers: Diabetes mellitus type: type 1 Diabetes mellitus complication status: with hyperglycemia Qualified Code(s): E10.65 - Type 1 diabetes mellitus with hyperglycemia (16) Obstructive sleep apnea of adult Code(s): G47.33 - OBSTRUCTIVE SLEEP APNEA (ADULT) (PEDIATRIC) Assessment/Plan 1. Severe LV systolic failure with NYHA classification 3-4 heart failure with ischemic cardiomyopathy and pulmonary HTN + right pleural effusion post chest tube insertion now for further intervention possibel VATS 2. Bladder outlet obstruction and leukocytosis with h/o E coli bacteremia secondary to UTI/presumed prostatitis and MRSA left forearm abscess 3. CAD S/P CABG, angina pectoris 4. History of cardiac arrest S/P ICD 5. Chronic hypoxic respiratory failure with home O2 dependent COPD and pulmonary nodules 6. Type 2 diabetes mellitus - noncompliant 7. CVA 8. Acute on CKD 9. Morbid obesity 10. History of RLE DVT on NOAC 11. Persistent atrial fibrillation on NOAC 12. OSAS noncompliant with CPAP 13. NIRANJAN mass PLAN: 1. Continue Demadex with close monitoring of renal function and electrolytes 2. Continue Carvedilol. Losartan is held pending renal function recovery. Monitor electrolytes 3. Ideally ARBS therapy to be resumed once renal function stabilized 4. Continue Xarelto with close monitoring of CBC 5. Please refer Dr. Pittman's note for risk stratification Further plans are to follow Leonel Hawley MD
[2017-01-15] MEDS: POLYETHYLENE GLYCOL 3350 119 GM BTL PO SCH (14:28)
--- NOTE | 2017-01-15 16:00 | PN ---
Teaching Attending Note Name of Resident: Juan José Carbajal ATTENDING PHYSICIAN STATEMENT I saw and evaluated the patient. I reviewed the resident's note and discussed the case with the resident. I agree with the resident's findings and plan as documented. SUBJECTIVE:states breathing has improved. continues to feel weak. denies CP, sob , fever, chills, cough, N/V/C/D OBJECTIVE: Last Vital Signs Temp Pulse Resp BP Pulse Ox 99.2 F 71 20 95/62 92 L 01/15/17 15:17 01/15/17 15:17 01/15/17 15:17 01/15/17 15:17 01/15/17 09:00 Intake & Output 01/12/17 01/13/17 01/14/17 01/15/17 23:59 23:59 23:59 23:59 Intake Total 746 991 7458 120 Output Total 700 30 35 Balance 027 428 2203 85 Weight 235 lb General NAD CV S1 S2+ Lungs crackles B/L decreased breath sounds R lung field. Abdomen soft NT/ND Extremities no pitting edema ASSESSMENT AND PLAN: 61yo M wtih PMH HTN, HLD, idiopathic dilated cardiomyopathy, systolic heart failure s/p PPM/AICD, CAD s/p CABG x4, h/o DVT on Xarelto, COPD on home O2, CKD , IDDM, lung cancer s/p radiation (2017), prostatitis, MRSA abscess left forearm , hepatitis B presented to the ER with difficulty urinating and generalized weakness 1. Urinary retention- likely BPH. s/p cade placement and 2L output. freely voiding. will monitor kidney fx. on flomax. 2. Acute on CKD- likely obstructive uropathy.improving. renal dose medications. 3. DM-A1c 14.2. not compliant at home. improved. endo consulted. cont insulin. titrate to optimize control 4. Sepsis due to suspected PNA vs complicated pleural effusion/hemothoarx- afebrile. s/p chest tube placement 01/11. minimal output last 24H. slight improvement on CXR. will cont at this time. consider TPA in chest tube pending cytology on report which we are still waiting. may need VATS however pt is a poor candidate and will wait as slowly improving. encourage pt to get OOB to chair. PT participation. oxygenation improving. daily CXR. off abx. CT surgery, ID and pulmonary on board. 5. NSVT- stable. cont current medications. 6. ACyte blood loss anemia- slight down trend in Hgb. +hemothorax. cont to monitor closely while on anticoagulation. no indication for Txn 7. acute on chronic systolic CHF- improved. now on home dose of diuretic. cont strict I&O, daily weights, fluid restriction. 8. Constipation- still no BM. on stool softeners. 9. COPD on Home O2-overall improved. currently saturating 95% on 3L NC. uses 2L at home so almost baseline. cont to titrate supplemental oxygen to maintain spO2 >90% 10. DVT on xarelto- xarelto 11. PAF- as per cardio has hx of afib with high [id number] score. currently NSR. on coreg, Xarelto 12. DVT ppx -xarelto 13. will need MALIHA when medically optimized.
[2017-01-15] MEDS ORDERED: INSULIN (NOVOLOG) ASPART 100 UNITS/ML 10ML VIAL ONE ×2 (17:22→21:05)
--- NOTE | 2017-01-15 17:26 | PN ---
Progress Note, Physician History of Present Illness: pulmonary alert,comfortable,nad - Current Medication List Current Medications: Active Medications Carvedilol (Coreg -) 6.25 mg PO BID [facility] Last Admin: 01/15/17 09:09 Dose: 6.25 mg Docusate Sodium (Colace -) 100 mg PO TID [facility] Last Admin: 01/15/17 05:54 Dose: 100 mg Gabapentin (Neurontin -) 100 mg PO BID [facility] Last Admin: 01/15/17 09:09 Dose: 100 mg Insulin Aspart (Novolog Mix 70/30 Vial) 15 units SQ BIDAC [facility] Last Admin: 01/15/17 06:48 Dose: Not Given Insulin Aspart (Novolog Vial Sliding Scale -) 1 vial SQ ACHS [facility] PRN Reason: Protocol Last Admin: 01/15/17 11:38 Dose: 2 units Insulin Detemir (Levemir Vial) 50 units SQ BIDI [facility] Last Admin: 01/15/17 06:48 Dose: Not Given Oxycodone HCl (Roxicodone -) 5 mg PO Q6H PRN PRN Reason: PAIN Last Admin: 01/15/17 05:54 Dose: 5 mg Polyethylene Glycol (Miralax (For Daily Use) -) 17 gm PO DAILY [facility] Last Admin: 01/15/17 14:28 Dose: Not Given Ranitidine HCl (Zantac -) 150 mg PO DAILY [facility] Last Admin: 01/15/17 09:09 Dose: 150 mg Rivaroxaban (Xarelto -) 15 mg PO DAILY [facility] Last Admin: 01/15/17 09:10 Dose: 15 mg Senna (Senna -) 2 tab PO DAILY [facility] Last Admin: 01/15/17 09:09 Dose: 2 tab Tamsulosin HCl (Flomax -) 0.4 mg PO DAILY@0830 [facility] Last Admin: 01/15/17 09:09 Dose: 0.4 mg Tiotropium [place] (Spiriva -) 1 puff IH DAILY [facility] Last Admin: 01/15/17 09:09 Dose: 1 puff Torsemide (Demadex -) 100 mg PO BID [facility] Last Admin: 01/15/17 09:10 Dose: 100 mg Trazodone HCl (Desyrel -) 100 mg PO HS [facility] Last Admin: 01/14/17 21:42 Dose: 100 mg - Objective Vital Signs: Vital Signs Temperature 99.2 F 01/15/17 15:17 Pulse Rate 71 01/15/17 15:17 Respiratory Rate 20 01/15/17 15:17 Blood Pressure 95/62 01/15/17 15:17 O2 Sat by Pulse Oximetry (%) 92 L 01/15/17 09:00 Constitutional: Yes: Well Nourished, Calm Eyes: Yes: WNL HENT: Yes: WNL Neck: Yes: WNL Cardiovascular: Yes: Regular Rate and Rhythm, S1, S2 Respiratory: Yes: Diminished (diminished bs on r) Gastrointestinal: Yes: Normal Bowel Sounds, Soft Extremities: Yes: WNL Edema: No Labs: CBC, BMP 01/15/17 05:40 01/15/17 05:40 INR, PTT INR 1.37 (0.82-1.09) H 01/09/17 05:35 - ....Imaging Chest X-ray: Report Reviewed, Image Reviewed (improving r pleural effusion, increased congestion bilaterally) Problem List - Problems (1) Lung cancer Code(s): C34.90 - MALIGNANT NEOPLASM OF UNSP PART OF UNSP BRONCHUS OR LUNG (2) Acute urinary retention Code(s): R33.8 - OTHER RETENTION OF URINE (3) Anticoagulant long-term use Code(s): Z79.01 - RAZOR SHARPENER (CURRENT) USE OF 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 (4) Bladder outlet obstruction Code(s): N32.0 - BLADDER-NECK OBSTRUCTION (5) COPD (chronic obstructive pulmonary disease) Code(s): J44.9 - CHRONIC OBSTRUCTIVE PULMONARY DISEASE, UNSPECIFIED Qualifiers: COPD type: chronic bronchitis Chronic bronchitis type: unspecified Qualified Code(s): J42 - Unspecified chronic bronchitis (6) Hyperglycemia Code(s): R73.9 - HYPERGLYCEMIA, UNSPECIFIED (7) Leukocytosis Code(s): D72.829 - ELEVATED WHITE BLOOD CELL COUNT, UNSPECIFIED (8) Morbid obesity Code(s): E66.01 - MORBID (SEVERE) OBESITY DUE TO EXCESS CALORIES (9) Obstructive uropathy Code(s): N13.9 - OBSTRUCTIVE AND REFLUX UROPATHY, UNSPECIFIED (10) Pleural effusion, right Code(s): J90 - PLEURAL EFFUSION, NOT ELSEWHERE CLASSIFIED (11) CHF (congestive heart failure) Code(s): I50.9 - HEART FAILURE, UNSPECIFIED Qualifiers: (12) Acute on chronic systolic and diastolic heart failure, NYHA class 4 Code(s): I50.43 - ACUTE ON CHRONIC COMBINED SYSTOLIC AND DIASTOLIC HRT FAIL (13) COPD (chronic obstructive pulmonary disease) case management patient Code(s): EGB4655 - (14) Dyspnea on exertion Code(s): R06.09 - OTHER FORMS OF DYSPNEA (15) Heart failure, systolic, with acute decompensation Code(s): I50.23 - ACUTE ON CHRONIC SYSTOLIC (CONGESTIVE) HEART FAILURE (16) Hx of CABG Code(s): Z95.1 - PRESENCE OF AORTOCORONARY BYPASS GRAFT (17) Ischemic cardiomyopathy Code(s): I25.5 - ISCHEMIC CARDIOMYOPATHY (18) LV dysfunction Code(s): I51.9 - HEART DISEASE, UNSPECIFIED (19) S/P CABG (coronary artery bypass graft) Code(s): Z95.1 - PRESENCE OF AORTOCORONARY BYPASS GRAFT (20) Single implantable cardioverter-defibrillator (ICD) in situ Code(s): Z95.810 - PRESENCE OF AUTOMATIC (IMPLANTABLE) CARDIAC DEFIBRILLATOR (21) Tobacco abuse Code(s): Z72.0 - TOBACCO USE (22) Obstructive sleep apnea of adult Code(s): G47.33 - OBSTRUCTIVE SLEEP APNEA (ADULT) (PEDIATRIC) Assessment/Plan IMP DYSPNEA IMPROVING ACUTE ON CHRONIC CHF HEMOTHORAX S/P CHEST TUBE COPD ON HOME O2 CHRONIC HYPOXEMIC RESPIRATORY FAILURE ASHD S/P CABG S/P CARDIAC ARREST S/P ICD OBSTRUCTIVE UROPATHY URINARY RETENTION ACUTE ON CHRONIC KIDNEY DISEASE POORLY CONTROLLED DM LUNG CA S/P RT GOUT OSAS PLAN O2 INHALED BRONCHODILATORS MONITOR LYTES,RENAL FUNCTION GLYCEMIC CONTROL CONTINUE TO MONITOR CHEST TUBE DRAINAGE CONSERVATIVE MANAGEMENT PLEURAL EFFUSION PT POOR CANDIDATE FOR SURGERY SECONDARY TO SEVERE CARDIAC DISEASE DR BARBOSA Problem List - Problems (1) Lung cancer Code(s): C34.90 - MALIGNANT NEOPLASM OF UNSP PART OF UNSP BRONCHUS OR LUNG (2) Acute urinary retention Code(s): R33.8 - OTHER RETENTION OF URINE (3) Anticoagulant long-term use Code(s): Z79.01 - RAZOR SHARPENER (CURRENT) USE OF 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 (4) Bladder outlet obstruction Code(s): N32.0 - BLADDER-NECK OBSTRUCTION (5) COPD (chronic obstructive pulmonary disease) Code(s): J44.9 - CHRONIC OBSTRUCTIVE PULMONARY DISEASE, UNSPECIFIED Qualifiers: COPD type: chronic bronchitis Chronic bronchitis type: unspecified Qualified Code(s): J42 - Unspecified chronic bronchitis (6) Hyperglycemia Code(s): R73.9 - HYPERGLYCEMIA, UNSPECIFIED (7) Leukocytosis Code(s): D72.829 - ELEVATED WHITE BLOOD CELL COUNT, UNSPECIFIED (8) Morbid obesity Code(s): E66.01 - MORBID (SEVERE) OBESITY DUE TO EXCESS CALORIES (9) Obstructive uropathy Code(s): N13.9 - OBSTRUCTIVE AND REFLUX UROPATHY, UNSPECIFIED (10) Pleural effusion, right Code(s): J90 - PLEURAL EFFUSION, NOT ELSEWHERE CLASSIFIED (11) CHF (congestive heart failure) Code(s): I50.9 - HEART FAILURE, UNSPECIFIED Qualifiers: (12) Acute on chronic systolic and diastolic heart failure, NYHA class 4 Code(s): I50.43 - ACUTE ON CHRONIC COMBINED SYSTOLIC AND DIASTOLIC HRT FAIL (13) COPD (chronic obstructive pulmonary disease) case management patient Code(s): [id number] - (14) Dyspnea on exertion Code(s): R06.09 - OTHER FORMS OF DYSPNEA (15) Heart failure, systolic, with acute decompensation Code(s): I50.23 - ACUTE ON CHRONIC SYSTOLIC (CONGESTIVE) HEART FAILURE (16) Hx of CABG Code(s): Z95.1 - PRESENCE OF AORTOCORONARY BYPASS GRAFT (17) Ischemic cardiomyopathy Code(s): I25.5 - ISCHEMIC CARDIOMYOPATHY (18) LV dysfunction Code(s): I51.9 - HEART DISEASE, UNSPECIFIED (19) S/P CABG (coronary artery bypass graft) Code(s): Z95.1 - PRESENCE OF AORTOCORONARY BYPASS GRAFT (20) Single implantable cardioverter-defibrillator (ICD) in situ Code(s): Z95.810 - PRESENCE OF AUTOMATIC (IMPLANTABLE) CARDIAC DEFIBRILLATOR (21) Tobacco abuse Code(s): Z72.0 - TOBACCO USE (22) Obstructive sleep apnea of adult Code(s): G47.33 - OBSTRUCTIVE SLEEP APNEA (ADULT) (PEDIATRIC)
[2017-01-15] MEDS: MAG HYDROX/ALH/SMC/DPHA/LIDO 240 ML MOUTHWASH MM SCH (21:20)
[2017-01-15] MEDS: traZODone HCL 50 MG TABLET (FP) PO SCH (21:21)
[2017-01-16] MEDS: MAG HYDROX/ALH/SMC/DPHA/LIDO 240 ML MOUTHWASH MM SCH ×4 (00:06→17:47)
[2017-01-16] MEDS ORDERED: PT OWN MED DRAWER 7, Y5N ONE (06:13)
[2017-01-16] MEDS: DOCUSATE SODIUM 100 MG CAPSULE (FP) PO SCH ×3 (06:25→22:10)
[2017-01-16] MEDS: INSULIN (NOVOLOG MIX 70/30) 100 UNITS/ML MDV SQ SCH ×2 (06:26→17:46)
[2017-01-16] MEDS: INSULIN DETEMIR 100 UNITS/ML MDV SQ SCH ×2 (06:26→17:46)
[2017-01-16] MEDS: INSULIN SLIDING SCALE (NOVOLOG) 1 VIAL SQ SCH ×4 (06:27→22:18)
--- NOTE | 2017-01-16 07:35 | PN ---
Physical Exam: SUBJECTIVE: Patient seen and examined. Slept well last night. On home O2 requirement of 2-3 Liters. Explained that patient is high risk for surgery and VATS may not be the best option. Patient agreeable. understands. No CP, no SOB. OBJECTIVE: Vital Signs Period Temp Pulse Resp BP Sys/Mcconnell Pulse Ox Last 24 Hr 98.0 F-99.2 F 64-92 20-20 95-116/55-71 92-92 GEN: AAOx3, not in acute distress HEENT: PERRLA, EOMi CV: S1, S2, RRR LUNG: Bilateral crackles ABD: Soft, NT, ND, obese MSK: Venous stasis changes on both legs, no edema Laboratory Results - last 24 hr 01/15/17 01/15/17 01/15/17 05:40 05:40 11:34 Total Counted 100 Neutrophils % (Manual) 83.0 H Lymphocytes % (Manual) 6.0 L Monocytes % (Manual) 5 Eosinophils % (Manual) 2.0 Myelocytes % (Man) 2 Metamyelocytes 2 Platelet Estimate Adequate Sodium 140 Potassium 3.9 Chloride 101 Carbon Dioxide 34 H Anion Gap 5 L BUN 64 H Creatinine 1.7 H Creat Clearance w eGFR 41.18 POC Glucometer 153 Random Glucose 66 L D Calcium 8.3 L Total Bilirubin 0.9 AST 22 ALT 22 Alkaline Phosphatase 499 H D Total Protein 6.9 Albumin 2.0 L Active Medications Generic Name Dose Route Start Last Admin Trade Name Freq PRN Reason Stop Dose Admin Carvedilol 6.25 mg 01/08/17 21:52 01/15/17 21:21 Coreg - PO 6.25 mg BID MAGEN Administration Docusate Sodium 100 mg 01/08/17 22:03 01/16/17 06:25 Colace - PO Not Given TID MAGEN Gabapentin 100 mg 01/09/17 22:00 01/15/17 21:21 Neurontin - PO 100 mg BID MAGEN Administration Insulin Aspart 15 units 01/09/17 16:30 01/16/17 06:26 Novolog Mix 70/30 Vial SQ 15 units BIDAC MAGEN Administration Insulin Aspart 1 vial 01/09/17 16:30 01/16/17 06:27 Novolog Vial Sliding Scale - SQ 8 units ACHS MAGEN Administration Protocol Insulin Detemir 50 units 01/09/17 16:30 01/16/17 06:26 Levemir Vial SQ 50 units BIDI MAGEN Administration Lidocaine/Aluminum/Magnesium/Simeth 5 ml 01/15/17 21:00 01/16/17 06:26 Magic Mouthwash *Sjr Formula* - MM Not Given Q6HPO MAGEN Oxycodone HCl 5 mg 01/10/17 14:03 01/15/17 21:21 Roxicodone - PO 5 mg Q6H PRN Administration PAIN Polyethylene Glycol 17 gm 01/14/17 11:45 01/15/17 14:28 Miralax (For Daily Use) - PO Not Given DAILY MAGEN Ranitidine HCl 150 mg 01/10/17 10:00 01/15/17 09:09 Zantac - PO 150 mg DAILY MAGEN Administration Rivaroxaban 15 mg 01/13/17 10:00 01/15/17 09:10 Xarelto - PO 15 mg DAILY MAGEN Administration Senna 2 tab 01/09/17 10:00 01/15/17 09:09 Senna - PO 2 tab DAILY MAGEN Administration Tamsulosin HCl 0.4 mg 01/10/17 08:30 01/15/17 09:09 Flomax - PO 0.4 mg DAILY@0830 MAGEN Administration Tiotropium [place] 1 puff 01/10/17 10:00 01/15/17 09:09 Spiriva - IH 1 puff DAILY MAGEN Administration Torsemide 100 mg 01/14/17 10:00 01/15/17 21:22 Demadex - PO 100 mg BID MAGEN Administration Trazodone HCl 100 mg 01/08/17 22:00 01/15/17 21:21 Desyrel - PO 100 mg HS MAGEN Administration ASSESSMENT/PLAN: Mr. Holley is a 61yo M with PMHx of Ischemic cardiomyopathy, Systolic CHF, AICD s/ p cardiac arrest, COPD on home O2, BPH on Flomax. He presented to the ER with 2- 3 day hx of generalized weakness and fatigue, found to be in acute decompensated CHF and possible Pneumonia # Right Hemothorax - Possibly secondary to anticoagulation vs malignant effusion. Chest tube placed by CT surgery on 01/11 draining brinda blood. Still has loculated component on CXR. - VATS was in consideration, however high risk procedure for general sedation since pt has low functional status. Currently, patient is doing well on home O2 requirement 2-3. Will hold off on VATS and try to conservatively manage for now with PT and OOB to chair. Patient is near baseline. Patient is agreeable to rehabilitation. # Hx of DVT - Patient on Xarelto for R DVT and paroxsymal Afib with high risk of stroke and DVT formation. Restarted Xarelto. # Ischemic Cardiomyopathy - Pt has AICD. On Torsemide 100 BID + fluid restriction. However, appears congested. Will give IVP Lasix 80mg x1 with Cardiology approval. Check to see if responds well to diuresis. Need to follow Is and Os thus will place [place] cath. Also on Coreg 6.25 BID with holding parameters. # Hx of Constipation - On Docusate/Senna + Miralax, not working. Added Dulcolax suppository + Milk of Magnesia. # Urinary Retention - Likely from BPH, UA neg. Continue Flomax 0.4mg daily. Off cade. MARCIAL improved # Uncontrolled DM2 - A1C 14.2, Endocrine following, BGMs in good control. Continue Levemir 50u BID + Novolog 70/30 15u BIDAC + SSI. # Chronic Back Pain - Placed on Oxycodone 5mg Q6H PRN, has used it at home with relief. # Hx of COPD - On home O2 2-3L RTC, Continue Spiriva daily # Hx of Gout - Not on home Allopurinol due to MARCIAL # Hx of MDD - Continue Trazodone 100mg HS # Diabetic Neuropathy - Gabapentin 100 BID # Hx of Allergies - Continue Ranitidine # FEN - Not on fluids, elec, diabetic low sodium diet # PPx - Xarelto, no GI needed, Walked 5 feet with PT, encouraged OOB to chair # Dispo - Hold off on VATS for now due to risk of general anesthesia. Will d/c plan for SNF. Patient is agreeable. Spoke to Dr Villalobos, chest tube can be removed prior to discharge. Informed nurses and nursing assistants to encourage OOB to chair. d/w Dr Anuradha Carbajal MD - Resident PGY1 Internal medicine Visit type - Emergency Visit Emergency Visit: No - New Patient This patient is new to me today: No - Critical Care Critical Care patient: No - Discharge Referral Referred to [facility] No
[2017-01-16 08:30] LABS: MCH 29.7 pg (25.7-33.7); MCHC 32.9 g/dl (32.0-35.9); MEAN CELL VOLUME 90.3 fl (80-96); MEAN PLT VOLUME 8.4 fl (7.5-11.1); PLATELET COUNT 208 K/MM3 (134-434); RDW 14.7 % (11.9-15.9); WHITE BLOOD COUNT 12.3 K/mm3 (4.0-10.0)
[2017-01-16 09:01] LABS: ANION GAP 10 (8-16); CALCIUM 8.5 mg/dL (8.5-10.1); CO2 30 mmol/L (21-32); CREATININE 1.6 mg/dL (0.7-1.3); GLUCOSE,RANDOM 224 mg/dL (74-106); MAGNESIUM 2.4 mg/dL (1.8-2.4); SGPT/ALT 25 U/L (12-78)
[2017-01-16 09:02] LABS: ALK PHOS 480 U/L (45-117); BILIRUBIN,TOTAL 0.9 mg/dL (0.2-1.0); SGOT/AST 20 U/L (15-37); TOT PROT 6.6 g/dl (6.4-8.2)
[2017-01-16] MEDS: CARVEDILOL 6.25 MG TABLET (FP) PO SCH ×2 (09:04→22:19)
[2017-01-16] MEDS: TAMSULOSIN HCL 0.4 MG CAP.ER.24H (FP) PO SCH (09:04)
[2017-01-16] MEDS: RANITIDINE HCL 150 MG TABLET (FP) PO SCH (09:04)
[2017-01-16] MEDS: oxyCODONE HCL 5 MG TABLET PO PRN ×2 (09:04→22:11)
[2017-01-16] MEDS: GABAPENTIN 100 MG CAPSULE (FP) PO SCH ×2 (09:04→22:19)
[2017-01-16] MEDS: RIVAROXABAN 15 MG TABLET PO SCH (09:05)
[2017-01-16] MEDS: TORSEMIDE 100 MG TABLET PO SCH ×2 (09:05→22:19)
[2017-01-16] MEDS: TIOTROPIUM BROMIDE 18 MCG/INH (DEVICE W/ 5 CAPSULES) IH SCH (09:06)
[2017-01-16] MEDS: POLYETHYLENE GLYCOL 3350 119 GM BTL PO SCH (09:06)
[2017-01-16] MEDS: SENNOSIDES 8.6MG TABLET (FP) PO SCH (09:06)
--- NOTE | 2017-01-16 10:40 | PN ---
Progress Note, Physician History of Present Illness: PULMONARY ALERT,LAYING FLAT IN BED,-RESP DISTRESS - Current Medication List Current Medications: Active Medications Carvedilol (Coreg -) 6.25 mg PO BID [facility] Last Admin: 01/16/17 09:04 Dose: 6.25 mg Docusate Sodium (Colace -) 100 mg PO TID [facility] Last Admin: 01/16/17 06:25 Dose: Not Given Gabapentin (Neurontin -) 100 mg PO BID [facility] Last Admin: 01/16/17 09:04 Dose: 100 mg Insulin Aspart (Novolog Mix 70/30 Vial) 15 units SQ BIDAC [facility] Last Admin: 01/16/17 06:26 Dose: 15 units Insulin Aspart (Novolog Vial Sliding Scale -) 1 vial SQ ACHS [facility] PRN Reason: Protocol Last Admin: 01/16/17 06:27 Dose: 8 units Insulin Detemir (Levemir Vial) 50 units SQ BIDI [facility] Last Admin: 01/16/17 06:26 Dose: 50 units Lidocaine/Aluminum/Magnesium/Simeth (Magic Mouthwash *Sjr Formula* -) 5 ml MM Q6HPO [facility] Last Admin: 01/16/17 06:26 Dose: Not Given Oxycodone HCl (Roxicodone -) 5 mg PO Q6H PRN PRN Reason: PAIN Last Admin: 01/16/17 09:04 Dose: 5 mg Polyethylene Glycol (Miralax (For Daily Use) -) 17 gm PO DAILY [facility] Last Admin: 01/16/17 09:06 Dose: 17 grams Ranitidine HCl (Zantac -) 150 mg PO DAILY [facility] Last Admin: 01/16/17 09:04 Dose: 150 mg Rivaroxaban (Xarelto -) 15 mg PO DAILY [facility] Last Admin: 01/16/17 09:05 Dose: 15 mg Senna (Senna -) 2 tab PO DAILY [facility] Last Admin: 01/16/17 09:06 Dose: 2 tab Tamsulosin HCl (Flomax -) 0.4 mg PO DAILY@0830 [facility] Last Admin: 01/16/17 09:04 Dose: 0.4 mg Tiotropium [place] (Spiriva -) 1 puff IH DAILY [facility] Last Admin: 01/16/17 09:06 Dose: 1 puff Torsemide (Demadex -) 100 mg PO BID [facility] Last Admin: 01/16/17 09:05 Dose: 100 mg Trazodone HCl (Desyrel -) 100 mg PO HS [facility] Last Admin: 01/15/17 21:21 Dose: 100 mg - Objective Vital Signs: Vital Signs Temperature 98.0 F 01/16/17 06:00 Pulse Rate 64 01/16/17 06:00 Respiratory Rate 20 01/16/17 06:00 Blood Pressure 108/55 01/16/17 06:00 O2 Sat by Pulse Oximetry (%) 92 L 01/15/17 21:30 Constitutional: Yes: Well Nourished, Calm Eyes: Yes: WNL HENT: Yes: WNL Neck: Yes: WNL Cardiovascular: Yes: Regular Rate and Rhythm, S1, S2 Respiratory: Yes: Rales (FEW BASILAR CRACKLES) Gastrointestinal: Yes: Normal Bowel Sounds, Soft Extremities: Yes: WNL Edema: No Labs: CBC, BMP 01/16/17 07:20 01/16/17 07:20 INR, PTT INR 1.37 (0.82-1.09) H 01/09/17 05:35 Problem List - Problems (1) Lung cancer Code(s): C34.90 - MALIGNANT NEOPLASM OF UNSP PART OF UNSP BRONCHUS OR LUNG (2) Acute urinary retention Code(s): R33.8 - OTHER RETENTION OF URINE (3) Anticoagulant long-term use Code(s): Z79.01 - LONGTERM (CURRENT) USE OF 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 (4) Bladder outlet obstruction Code(s): N32.0 - BLADDER-NECK OBSTRUCTION (5) COPD (chronic obstructive pulmonary disease) Code(s): J44.9 - CHRONIC OBSTRUCTIVE PULMONARY DISEASE, UNSPECIFIED Qualifiers: COPD type: chronic bronchitis Chronic bronchitis type: unspecified Qualified Code(s): J42 - Unspecified chronic bronchitis (6) Hyperglycemia Code(s): R73.9 - HYPERGLYCEMIA, UNSPECIFIED (7) Leukocytosis Code(s): D72.829 - ELEVATED WHITE BLOOD CELL COUNT, UNSPECIFIED (8) Morbid obesity Code(s): E66.01 - MORBID (SEVERE) OBESITY DUE TO EXCESS CALORIES (9) Obstructive uropathy Code(s): N13.9 - OBSTRUCTIVE AND REFLUX UROPATHY, UNSPECIFIED (10) Pleural effusion, right Code(s): J90 - PLEURAL EFFUSION, NOT ELSEWHERE CLASSIFIED (11) CHF (congestive heart failure) Code(s): I50.9 - HEART FAILURE, UNSPECIFIED Qualifiers: (12) Acute on chronic systolic and diastolic heart failure, NYHA class 4 Code(s): I50.43 - ACUTE ON CHRONIC COMBINED SYSTOLIC AND DIASTOLIC HRT FAIL (13) COPD (chronic obstructive pulmonary disease) case management patient Code(s): NBJ2636 - (14) Dyspnea on exertion Code(s): R06.09 - OTHER FORMS OF DYSPNEA (15) Heart failure, systolic, with acute decompensation Code(s): I50.23 - ACUTE ON CHRONIC SYSTOLIC (CONGESTIVE) HEART FAILURE (16) Hx of CABG Code(s): Z95.1 - PRESENCE OF AORTOCORONARY BYPASS GRAFT (17) Ischemic cardiomyopathy Code(s): I25.5 - ISCHEMIC CARDIOMYOPATHY (18) LV dysfunction Code(s): I51.9 - HEART DISEASE, UNSPECIFIED (19) S/P CABG (coronary artery bypass graft) Code(s): Z95.1 - PRESENCE OF AORTOCORONARY BYPASS GRAFT (20) Single implantable cardioverter-defibrillator (ICD) in situ Code(s): Z95.810 - PRESENCE OF AUTOMATIC (IMPLANTABLE) CARDIAC DEFIBRILLATOR (21) Tobacco abuse Code(s): Z72.0 - TOBACCO USE (22) Obstructive sleep apnea of adult Code(s): G47.33 - OBSTRUCTIVE SLEEP APNEA (ADULT) (PEDIATRIC) Assessment/Plan IMP DYSPNEA IMPROVING ACUTE ON CHRONIC CHF HEMOTHORAX S/P CHEST TUBE COPD ON HOME O2 CHRONIC HYPOXEMIC RESPIRATORY FAILURE ASHD S/P CABG S/P CARDIAC ARREST S/P ICD OBSTRUCTIVE UROPATHY URINARY RETENTION ACUTE ON CHRONIC KIDNEY DISEASE POORLY CONTROLLED DM LUNG CA S/P RT GOUT OSAS PLAN O2 INHALED BRONCHODILATORS MONITOR LYTES,RENAL FUNCTION GLYCEMIC CONTROL CONTINUE TO MONITOR CHEST TUBE DRAINAGE CONSERVATIVE MANAGEMENT R PLEURAL EFFUSION PT IS A POOR CANDIDATE FOR SURGERY SECONDARY TO SEVERE CARDIAC DISEASE CONTINUE CHEST TUBE DRAINAGE DR BARBOSA Problem List - Problems (1) Lung cancer Code(s): C34.90 - MALIGNANT NEOPLASM OF UNSP PART OF UNSP BRONCHUS OR LUNG (2) Acute urinary retention Code(s): R33.8 - OTHER RETENTION OF URINE (3) Anticoagulant long-term use Code(s): Z79.01 - LONGTERM (CURRENT) USE OF 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 (4) Bladder outlet obstruction Code(s): N32.0 - BLADDER-NECK OBSTRUCTION (5) COPD (chronic obstructive pulmonary disease) Code(s): J44.9 - CHRONIC OBSTRUCTIVE PULMONARY DISEASE, UNSPECIFIED Qualifiers: COPD type: chronic bronchitis Chronic bronchitis type: unspecified Qualified Code(s): J42 - Unspecified chronic bronchitis (6) Hyperglycemia Code(s): R73.9 - HYPERGLYCEMIA, UNSPECIFIED (7) Leukocytosis Code(s): D72.829 - ELEVATED WHITE BLOOD CELL COUNT, UNSPECIFIED (8) Morbid obesity Code(s): E66.01 - MORBID (SEVERE) OBESITY DUE TO EXCESS CALORIES (9) Obstructive uropathy Code(s): N13.9 - OBSTRUCTIVE AND REFLUX UROPATHY, UNSPECIFIED (10) Pleural effusion, right Code(s): J90 - PLEURAL EFFUSION, NOT ELSEWHERE CLASSIFIED (11) CHF (congestive heart failure) Code(s): I50.9 - HEART FAILURE, UNSPECIFIED Qualifiers: (12) Acute on chronic systolic and diastolic heart failure, NYHA class 4 Code(s): I50.43 - ACUTE ON CHRONIC COMBINED SYSTOLIC AND DIASTOLIC HRT FAIL (13) COPD (chronic obstructive pulmonary disease) case management patient Code(s): [id number] - (14) Dyspnea on exertion Code(s): R06.09 - OTHER FORMS OF DYSPNEA (15) Heart failure, systolic, with acute decompensation Code(s): I50.23 - ACUTE ON CHRONIC SYSTOLIC (CONGESTIVE) HEART FAILURE (16) Hx of CABG Code(s): Z95.1 - PRESENCE OF AORTOCORONARY BYPASS GRAFT (17) Ischemic cardiomyopathy Code(s): I25.5 - ISCHEMIC CARDIOMYOPATHY (18) LV dysfunction Code(s): I51.9 - HEART DISEASE, UNSPECIFIED (19) S/P CABG (coronary artery bypass graft) Code(s): Z95.1 - PRESENCE OF AORTOCORONARY BYPASS GRAFT (20) Single implantable cardioverter-defibrillator (ICD) in situ Code(s): Z95.810 - PRESENCE OF AUTOMATIC (IMPLANTABLE) CARDIAC DEFIBRILLATOR (21) Tobacco abuse Code(s): Z72.0 - TOBACCO USE (22) Obstructive sleep apnea of adult Code(s): G47.33 - OBSTRUCTIVE SLEEP APNEA (ADULT) (PEDIATRIC)
[2017-01-16 11:05] LABS: METAMYELOCYTE 1 % (0-2); MYELOCYTE 2 % (0-2); PLATELET ESTIMATE ADEQUATE; TOTAL CELLS COUNTED 100
--- NOTE | 2017-01-16 11:26 | PN ---
Progress Note (short form) - Note Progress Note: Chief Complaint: Events noted, notes reviewed, lethargic but arousable, denies any chest pain or dyspnea History of Present Illness: Seen and examined on telemetry. Events noted, notes reviewed, lethargic but arousable, denies any chest pain or dyspnea Echocardiography 08/14/2016 revealed severe LV systolic dysfunction with global hypokinesia, mild MR, mild TR Medications: Current Medications Carvedilol (Coreg -) 6.25 mg PO BID [facility] Last Admin: 01/16/17 09:04 Dose: 6.25 mg Docusate Sodium (Colace -) 100 mg PO TID [facility] Last Admin: 01/16/17 06:25 Dose: Not Given Gabapentin (Neurontin -) 100 mg PO BID [facility] Last Admin: 01/16/17 09:04 Dose: 100 mg Insulin Aspart (Novolog Mix 70/30 Vial) 15 units SQ BIDAC [facility] Last Admin: 01/16/17 06:26 Dose: 15 units Insulin Aspart (Novolog Vial Sliding Scale -) 1 vial SQ ACHS [facility] PRN Reason: Protocol Last Admin: 01/16/17 06:27 Dose: 8 units Insulin Detemir (Levemir Vial) 50 units SQ BIDI [facility] Last Admin: 01/16/17 06:26 Dose: 50 units Lidocaine/Aluminum/Magnesium/Simeth (Magic Mouthwash *Sjr Formula* -) 5 ml MM Q6HPO [facility] Last Admin: 01/16/17 06:26 Dose: Not Given Oxycodone HCl (Roxicodone -) 5 mg PO Q6H PRN PRN Reason: PAIN Last Admin: 01/16/17 09:04 Dose: 5 mg Polyethylene Glycol (Miralax (For Daily Use) -) 17 gm PO DAILY [facility] Last Admin: 01/16/17 09:06 Dose: 17 grams Ranitidine HCl (Zantac -) 150 mg PO DAILY [facility] Last Admin: 01/16/17 09:04 Dose: 150 mg Rivaroxaban (Xarelto -) 15 mg PO DAILY [facility] Last Admin: 01/16/17 09:05 Dose: 15 mg Senna (Senna -) 2 tab PO DAILY [facility] Last Admin: 01/16/17 09:06 Dose: 2 tab Tamsulosin HCl (Flomax -) 0.4 mg PO DAILY@0830 [facility] Last Admin: 01/16/17 09:04 Dose: 0.4 mg Tiotropium [place] (Spiriva -) 1 puff IH DAILY [facility] Last Admin: 01/16/17 09:06 Dose: 1 puff Torsemide (Demadex -) 100 mg PO BID [facility] Last Admin: 01/16/17 09:05 Dose: 100 mg Trazodone HCl (Desyrel -) 100 mg PO HS [facility] Last Admin: 01/15/17 21:21 Dose: 100 mg Review of Systems Cardiovascular: As noted above Respiratory: denies: Cough or Sputum Production Gastrointestinal: denies: Nausea, Vomiting, Diarrhea, Constipation or Abdominal Discomfort Musculoskeletal: No Symptoms Reported Endocrine: No Symptoms Reported Vital Signs: Last Vital Signs Temp Pulse Resp BP Pulse Ox 98.0 F 64 20 108/55 92 L 01/16/17 06:00 01/16/17 06:00 01/16/17 06:00 01/16/17 06:00 01/15/17 21:30 Intake & Output 01/13/17 01/14/17 01/15/17 01/16/17 23:59 23:59 23:59 23:59 Intake Total 720 1020 480 Output Total 30 60 0 Balance 690 1020 420 0 Weight 235 lb Constitutional: No Distress, Calm Neck: Supple Negative JVD No Bruit Respiratory: Diminished Breath Sounds at the Bases Cardiovascular: S1 S2 Regular Rate and Rhythm Grade 1-2/6 SM Gastrointestinal: Soft Benign Normal Bowel Sounds Ext: Negative Edema Labs: CBC, BMP 01/16/17 07:20 01/16/17 07:20 Hepatic Panel Total Bilirubin 0.9 mg/dL (0.2-1.0) 01/16/17 07:20 AST 20 U/L (15-37) 01/16/17 07:20 ALT 25 U/L (12-78) 01/16/17 07:20 Alkaline Phosphatase 480 U/L (45-117) H 01/16/17 07:20 Albumin 2.0 g/dl (3.4-5.0) L 01/16/17 07:20 Assessment/Plan ASSESSMENT: 1. Systolic LV dysfunction with chronic class II-III NYHA classification heart failure (ischemic dilated cardiomyopathy with pulmonary HTN), pleural effusion post chest tube insertion 2. CAD post IN/CABG, angina pectoris 3. History of cardiac arrest post ICD 4. Persistent atrial fibrillation on NOAC's/Xarelto 5. Bladder outlet obstruction with ecoli bacteremia secondary to UTI/presumed prostatitis, resolved 6. MRSA left forearm abscess, resolved 7. HTN 8. DM 9. Hypercholesterolemia 10. History of CVA 11. Chronic hypoxic respiratory failure with home O2 dependent COPD 12. OSAS noncompliant with CPAP 13. Acute on CKD, resolving 14. History of RLE DVT 15. Anemia 16. Morbid obesity PLAN: 1. Continue Demadex with close monitoring of renal function and electrolytes 2. Continue Carvedilol 3. Ideally ARBS therapy to be resumed once renal function stabilized 4. Continue Xarelto with close monitoring of CBC 5. As outlined above video-assisted Thoracoscopy is to be deferred at this point , for management of the noted persistent pleural effusion Ashwin Pittman MD
[2017-01-16] MEDS ORDERED: MAGNESIUM HYDROX 2400MG/30ML ORAL SUSPENSION 30 ML CUP PO ONE (11:33)
[2017-01-16] MEDS ORDERED: INSULIN (NOVOLOG) ASPART 100 UNITS/ML 10ML VIAL ONE (11:38)
[2017-01-16] MEDS ORDERED: BISACODYL 10 MG SUPP.RECT RC ONE (12:00)
[2017-01-16] MEDS ORDERED: FUROSEMIDE 40 MG/4 ML INJECTABLE VIAL IVPUSH ONE (14:00)
--- NOTE | 2017-01-16 15:56 | PN ---
Teaching Attending Note Name of Resident: Juan José Carbajal ATTENDING PHYSICIAN STATEMENT Time of evaluation: 11:36 AM I saw and evaluated the patient. I reviewed the resident's note and discussed the case with the resident. I agree with the resident's findings and plan as documented. SUBJECTIVE: Vital Signs Period Temp Pulse Resp BP Sys/Mcconnell Pulse Ox Last 24 Hr 97.5 F-99.2 F 64-79 20-20 104-121/55-73 92 Intake & Output 01/13/17 01/14/17 01/15/17 01/16/17 23:59 23:59 23:59 23:59 Intake Total 720 1020 480 Output Total 30 60 0 Balance 690 1020 420 0 Weight 235 lb General: lying in bed in no acute distress CVS:S1S2 regular Chest: poor effort, occasional scattered rales, decreased breath sounds Abdomen: soft, obese, NT Extremities: 2+ pedal pitting edema Home Medication List Medication Instructions Recorded Confirmed Type Allopurinol [Zyloprim -] 100 mg PO BID 09/05/16 01/08/17 History Calcium Carbonate 600 mg PO DAILY 09/05/16 01/08/17 History Carvedilol 6.25 mg PO BID 09/05/16 01/08/17 History Cholecalciferol (Vitamin D3) 1,000 unit MC DAILY 09/05/16 01/08/17 History [Cholecalciferol] Colchicine 0.6 mg PO DAILY 09/05/16 01/08/17 History Docusate Sodium 100 mg PO TID 09/05/16 01/08/17 History Famotidine/Ca Carb/Mag Hydrox 1 each PO DAILY 09/05/16 01/08/17 History [Pepcid Complete Tablet Chew] Gabapentin [Neurontin -] 100 mg PO BID 09/05/16 01/08/17 History Insulin Regular, Human [Humulin R 30 unit SQ DAILY 09/05/16 01/08/17 History U-500 Kwikpen] Liraglutide [Victoza -] 1.8 mg SQ DAILY@0700 09/05/16 01/08/17 History Oxycodone HCl/Acetaminophen 1 tab PO Q6H 09/05/16 01/08/17 History [Percocet 5-325 mg Tablet] Rivaroxaban [Xarelto -] 15 mg PO DAILY 09/05/16 01/08/17 History Sennosides [Senno] 2 tab PO DAILY 09/05/16 01/08/17 History Tamsulosin HCl 0.4 mg PO DAILY 09/05/16 01/08/17 History Torsemide 100 mg PO BID 09/05/16 01/08/17 History Chantix 1 tab PO BID 12/04/16 01/08/17 History Tiotropium [place] [Spiriva] 1 inh PO DAILY 01/08/17 01/08/17 History Trazodone HCl [Desyrel -] 100 mg PO HS 01/08/17 01/08/17 History Active Medications Generic Name Dose Route Start Last Admin Trade Name Freq PRN Reason Stop Dose Admin Carvedilol 6.25 mg 01/08/17 21:52 01/16/17 09:04 Coreg - PO 6.25 mg BID MAGEN Administration Docusate Sodium 100 mg 01/08/17 22:03 01/16/17 13:21 Colace - PO 100 mg TID MAGEN Administration Gabapentin 100 mg 01/09/17 22:00 01/16/17 09:04 Neurontin - PO 100 mg BID MAGEN Administration Insulin Aspart 15 units 01/09/17 16:30 01/16/17 06:26 Novolog Mix 70/30 Vial SQ 15 units BIDAC MAGEN Administration Insulin Aspart 1 vial 01/09/17 16:30 01/16/17 11:43 Novolog Vial Sliding Scale - SQ 6 units ACHS MAGEN Administration Protocol Insulin Detemir 50 units 01/09/17 16:30 01/16/17 06:26 Levemir Vial SQ 50 units BIDI MAGEN Administration Lidocaine/Aluminum/Magnesium/Simeth 5 ml 01/15/17 21:00 01/16/17 11:44 Magic Mouthwash *Sjr Formula* - MM 5 ml Q6HPO MAGEN Administration Oxycodone HCl 5 mg 01/10/17 14:03 01/16/17 09:04 Roxicodone - PO 5 mg Q6H PRN Administration PAIN Polyethylene Glycol 17 gm 01/14/17 11:45 01/16/17 09:06 Miralax (For Daily Use) - PO 17 grams DAILY MAGEN Administration Ranitidine HCl 150 mg 01/10/17 10:00 01/16/17 09:04 Zantac - PO 150 mg DAILY MAGEN Administration Rivaroxaban 15 mg 01/13/17 10:00 01/16/17 09:05 Xarelto - PO 15 mg DAILY MAGEN Administration Senna 2 tab 01/09/17 10:00 01/16/17 09:06 Senna - PO 2 tab DAILY MAGEN Administration Tamsulosin HCl 0.4 mg 01/10/17 08:30 01/16/17 09:04 Flomax - PO 0.4 mg DAILY@0830 MAGEN Administration Tiotropium [place] 1 puff 01/10/17 10:00 01/16/17 09:06 Spiriva - IH 1 puff DAILY MAGEN Administration Torsemide 100 mg 01/14/17 10:00 01/16/17 09:05 Demadex - PO 100 mg BID MAGEN Administration Trazodone HCl 100 mg 01/08/17 22:00 01/15/17 21:21 Desyrel - PO 100 mg HS MAGEN Administration Laboratory Results - last 24 hr 01/15/17 01/15/17 01/16/17 17:09 21:33 06:24 WBC RBC Hgb Hct MCV MCH MCHC RDW Plt Count MPV Total Counted Neutrophils % Neutrophils % (Manual) Lymphocytes % Lymphocytes % (Manual) Monocytes % (Manual) Eosinophils % (Manual) Myelocytes % (Man) Metamyelocytes Platelet Estimate Sodium Potassium Chloride Carbon Dioxide Anion Gap BUN Creatinine Creat Clearance w eGFR POC Glucometer 198 286 310 Random Glucose Calcium Phosphorus Magnesium Total Bilirubin AST ALT Alkaline Phosphatase Total Protein Albumin 01/16/17 01/16/17 01/16/17 07:20 07:20 11:28 WBC 12.3 H RBC 3.72 L Hgb 11.1 L Hct 33.6 L MCV 90.3 MCH 29.7 MCHC 32.9 RDW 14.7 Plt Count 208 MPV 8.4 Total Counted 100 Neutrophils % No Result Required. Neutrophils % (Manual) 85.0 H Lymphocytes % No Result Required. Lymphocytes % (Manual) 5.0 L Monocytes % (Manual) 6 Eosinophils % (Manual) 1.0 Myelocytes % (Man) 2 Metamyelocytes 1 D Platelet Estimate Adequate Sodium 140 Potassium 3.8 Chloride 100 Carbon Dioxide 30 Anion Gap 10 BUN 54 H Creatinine 1.6 H Creat Clearance w eGFR 44.16 POC Glucometer 256 Random Glucose 224 H D Calcium 8.5 Phosphorus 3.0 D Magnesium 2.4 Total Bilirubin 0.9 AST 20 ALT 25 Alkaline Phosphatase 480 H Total Protein 6.6 Albumin 2.0 L Microbiology 01/10/17 11:30 Pleural Fluid AFB Smear Concentration - Final 01/10/17 11:30 Pleural Fluid Mycobacterial Culture - Preliminary ASSESSMENT AND PLAN: 61yo M wtih PMH HTN, HLD, idiopathic dilated cardiomyopathy, systolic heart failure s/p PPM/AICD, CAD s/p CABG x4, h/o DVT on Xarelto, COPD on home O2, CKD , IDDM, lung cancer s/p radiation (2017), prostatitis, MRSA abscess left forearm , hepatitis B presented to the ER with difficulty urinating and generalized weakness -Urinary retentio -MARCIAL on CKD -Sepsis due to suspected pNA vs complicated pleural effusion/hemothorax -Sustained Vtach/NSVT -Acute blood loss anemia, from hemothorax -Acute on chronic systolic heart failure exacerbation -Ischemic cardiomyopathy -Constipation -COPD on home oxygen -IDDM -DVT -PAF,high CHADSvasc2 score Plan: Still with significant volume overload. Additional diuresis with close monitoring of renal function and lytes. strict I/Os and daily weights. Had cade placement on admission with 2L urine output, voiding freely now. [place] catheter for strict I/Os, continue flomax s/p chest tube placement 01/11. minimal output last 24 hours. PLan for removal in 24 hours if not draining much and h/h stable as discussed with CT surgery. Daily CXR. Off Antibiotics. ID/pulmonary input appreciated. Telemetry, monitor lytes, continue coreg. H/h stable now, on anti-coagulation, monitor. Continue Levemir/Novolog 70/30, ISS, diabetic diet. AT home oxygen requirements. xarelto with close bleed monitoring. Dispo planing to [facility] in 24 hours if chest tube removed with no new concerns and volume status better. Aggressive bowel regimen. Plan discussed with patient in detail, all questions answered.
[2017-01-16] MEDS ORDERED: INSULIN (NOVOLOG MIX 70/30) 100 UNITS/ML MDV SQ ONE (17:54)
[2017-01-16] MEDS ORDERED: INSULIN DETEMIR 100 UNITS/ML MDV SQ ONE (17:54)
[2017-01-16] MEDS: traZODone HCL 50 MG TABLET (FP) PO SCH (22:19)
[2017-01-17] MEDS: MAG HYDROX/ALH/SMC/DPHA/LIDO 240 ML MOUTHWASH MM SCH ×4 (00:20→17:00)
[2017-01-17] MEDS: DOCUSATE SODIUM 100 MG CAPSULE (FP) PO SCH ×3 (06:32→22:00)
[2017-01-17] MEDS: INSULIN (NOVOLOG MIX 70/30) 100 UNITS/ML MDV SQ SCH ×2 (06:33→16:58)
[2017-01-17] MEDS: INSULIN SLIDING SCALE (NOVOLOG) 1 VIAL SQ SCH ×4 (06:33→22:01)
[2017-01-17] MEDS: INSULIN DETEMIR 100 UNITS/ML MDV SQ SCH ×2 (06:33→16:58)
[2017-01-17 07:28] LABS: MCH 29.6 pg (25.7-33.7); MCHC 32.7 g/dl (32.0-35.9); MEAN CELL VOLUME 90.6 fl (80-96); MEAN PLT VOLUME 8.5 fl (7.5-11.1); PLATELET COUNT 220 K/MM3 (134-434); RDW 14.6 % (11.9-15.9); WHITE BLOOD COUNT 12.1 K/mm3 (4.0-10.0)
[2017-01-17 07:45] LABS: ANION GAP 6 (8-16); BILIRUBIN,TOTAL 1.1 mg/dL (0.2-1.0); CO2 31 mmol/L (21-32); CREATININE 1.4 mg/dL (0.7-1.3); GLUCOSE,RANDOM 188 mg/dL (74-106); MAGNESIUM 2.6 mg/dL (1.8-2.4); PHOSPHOROUS 2.9 mg/dL (2.5-4.9); SGOT/AST 30 U/L (15-37); SGPT/ALT 30 U/L (12-78); TOT PROT 6.5 g/dl (6.4-8.2)
[2017-01-17 07:46] LABS: ALK PHOS 521 U/L (45-117)
[2017-01-17] MEDS ORDERED: INSULIN (NOVOLOG) ASPART 100 UNITS/ML 10ML VIAL ONE ×2 (11:06→18:31)
--- NOTE | 2017-01-17 11:10 | PN ---
Teaching Attending Note Name of Resident: Juan José Carbajal ATTENDING PHYSICIAN STATEMENT TIme of evaluation: 9:10 AM I saw and evaluated the patient. I reviewed the resident's note and discussed the case with the resident. I agree with the resident's findings and plan as documented. SUBJECTIVE: Patient seen and examined. Feels much better, sitting and eating, breathing improved, complying with fluid restriction. BM yesterday. no new complaints. OBJECTIVE: Vital Signs Period Temp Pulse Resp BP Sys/Mcconnell Pulse Ox Last 24 Hr 97.5 F-98.7 F 69-79 20-22 106-121/52-73 90 Intake & Output 01/14/17 01/15/17 01/16/17 01/17/17 23:59 23:59 23:59 23:59 Intake Total 1020 480 200 100 Output Total 60 0 Balance 1020 420 200 100 Weight 234 lb 2 oz General: sitting in bed, improved volume status CVS:S1S2 regular Chest: improved air entry, occasional scattered rales, no wheezing ABdomen: soft, obese, NT Extremities: improved pedal pitting edema 2+ Active Medications Carvedilol (Coreg -) 6.25 mg PO BID [facility] Last Admin: 01/16/17 22:19 Dose: 6.25 mg Docusate Sodium (Colace -) 100 mg PO TID [facility] Last Admin: 01/17/17 06:32 Dose: 100 mg Gabapentin (Neurontin -) 100 mg PO BID [facility] Last Admin: 01/16/17 22:19 Dose: 100 mg Insulin Aspart (Novolog Mix 70/30 Vial) 15 units SQ BIDAC [facility] Last Admin: 01/17/17 06:33 Dose: 15 units Insulin Aspart (Novolog Vial Sliding Scale -) 1 vial SQ ACHS [facility] PRN Reason: Protocol Last Admin: 01/17/17 06:33 Dose: 4 units Insulin Detemir (Levemir Vial) 50 units SQ BIDI [facility] Last Admin: 01/17/17 06:33 Dose: 50 units Lidocaine/Aluminum/Magnesium/Simeth (Magic Mouthwash *Sjr Formula* -) 5 ml MM Q6HPO [facility] Last Admin: 01/17/17 06:32 Dose: 5 ml Oxycodone HCl (Roxicodone -) 5 mg PO Q6H PRN PRN Reason: PAIN Last Admin: 01/16/17 22:11 Dose: 5 mg Polyethylene Glycol (Miralax (For Daily Use) -) 17 gm PO DAILY [facility] Last Admin: 01/16/17 09:06 Dose: 17 grams Ranitidine HCl (Zantac -) 150 mg PO DAILY [facility] Last Admin: 01/16/17 09:04 Dose: 150 mg Rivaroxaban (Xarelto -) 15 mg PO DAILY [facility] Last Admin: 01/16/17 09:05 Dose: 15 mg Senna (Senna -) 2 tab PO DAILY [facility] Last Admin: 01/16/17 09:06 Dose: 2 tab Tamsulosin HCl (Flomax -) 0.4 mg PO DAILY@0830 [facility] Last Admin: 01/16/17 09:04 Dose: 0.4 mg Tiotropium [place] (Spiriva -) 1 puff IH DAILY [facility] Last Admin: 01/16/17 09:06 Dose: 1 puff Torsemide (Demadex -) 100 mg PO BID [facility] Last Admin: 01/16/17 22:19 Dose: 100 mg Trazodone HCl (Desyrel -) 100 mg PO HS [facility] Last Admin: 01/16/17 22:19 Dose: 100 mg Laboratory Results - last 24 hr 01/15/17 01/15/17 01/16/17 17:09 21:33 11:28 WBC RBC Hgb Hct MCV MCH MCHC RDW Plt Count MPV Sodium Potassium Chloride Carbon Dioxide Anion Gap BUN Creatinine Creat Clearance w eGFR POC Glucometer 198 286 256 Random Glucose Calcium Phosphorus Magnesium Total Bilirubin AST ALT Alkaline Phosphatase Total Protein Albumin 01/16/17 01/16/17 01/17/17 17:42 23:13 05:48 WBC 12.1 H RBC 3.72 L Hgb 11.0 L Hct 33.7 L MCV 90.6 MCH 29.6 MCHC 32.7 RDW 14.6 Plt Count 220 MPV 8.5 Sodium Potassium Chloride Carbon Dioxide Anion Gap BUN Creatinine Creat Clearance w eGFR POC Glucometer 225 330 Random Glucose Calcium Phosphorus Magnesium Total Bilirubin AST ALT Alkaline Phosphatase Total Protein Albumin 01/17/17 01/17/17 05:48 06:29 WBC RBC Hgb Hct MCV MCH MCHC RDW Plt Count MPV Sodium 137 Potassium 4.1 Chloride 100 Carbon Dioxide 31 Anion Gap 6 L BUN 48 H Creatinine 1.4 H Creat Clearance w eGFR 51.52 POC Glucometer 215 Random Glucose 188 H Calcium 8.0 L Phosphorus 2.9 Magnesium 2.6 H Total Bilirubin 1.1 H D AST 30 D ALT 30 Alkaline Phosphatase 521 H Total Protein 6.5 Albumin 2.0 L Microbiology 01/10/17 11:30 Pleural Fluid AFB Smear Concentration - Final 01/10/17 11:30 Pleural Fluid Mycobacterial Culture - Preliminary 01/08/17 04:18 Blood - Peripheral Venous Blood Culture - Final NO GROWTH AFTER 5 DAYS INCUBATION 01/08/17 04:33 Blood - Peripheral Venous Blood Culture - Final NO GROWTH AFTER 5 DAYS INCUBATION 01/10/17 11:30 Pleural Fluid Gram Stain - Final 01/10/17 11:30 Pleural Fluid Body Fluid Culture - Final NO GROWTH OF AEROBIC ORGANISMS AFTER 48 HOURS INCUBATION 01/10/17 11:30 Pleural Fluid Anaerobic Culture - Final NO ANAEROBES WERE ISOLATED 01/09/17 18:00 Nares - Mrsa Screen - Right MRSA Screen - Final NO MRSA ISOLATED 01/10/17 11:30 Pleural Fluid HEMANT Preparation - Preliminary 01/10/17 11:30 Pleural Fluid Fungal Culture - Preliminary 01/08/17 11:50 Nares - Mrsa Screen - Left MRSA Screen - Final NO MRSA ISOLATED 01/08/17 11:50 Urine - Urine - Catheterized Urine Culture - Final NO GROWTH OBTAINED 01/08/17 11:50 Urine - Urine - Catheterized Legionella Antigen - Final 01/08/17 11:50 Urine - Urine - Catheterized Streptococcus pneumoniae Antigen (M - Final ASSESSMENT AND PLAN: 61yo M wtih PMH HTN, HLD, idiopathic dilated cardiomyopathy, systolic heart failure s/p PPM/AICD, CAD s/p CABG x4, h/o DVT on Xarelto, COPD on home O2, CKD , IDDM, lung cancer s/p radiation (2017), prostatitis, MRSA abscess left forearm , hepatitis B presented to the ER with difficulty urinating and generalized weakness -Urinary retentio -MARCIAL on CKD -Sepsis due to suspected pNA vs complicated pleural effusion/hemothorax -Sustained Vtach/NSVT -Acute blood loss anemia, from hemothorax -Acute on chronic systolic heart failure exacerbation -Ischemic cardiomyopathy -Constipation -COPD on home oxygen -IDDM -DVT -PAF,high CHADSvasc2 score Plan: VOlume status improved after additional lasix yesterday, continue torsemide. Additional diuresis with close monitoring of renal function and lytes. strict I/Os and daily weights. Had cade placement on admission with 2L urine output, voiding freely now. [place] catheter for strict I/Os, continue flomax s/p chest tube placement 01/11. minimal output last 24 hours, about [address] surgery, plan for removal prior to d/c. Daily CXR. Off Antibiotics. ID/pulmonary input appreciated. Telemetry, monitor lytes, continue coreg. H/h stable now, on anti-coagulation, monitor. Continue Levemir/Novolog 70/30, ISS, diabetic diet. At home oxygen requirements. xarelto with close bleed monitoring. Laxatives prn Dispo volume status has improved, doing well. Plan for d/c to SNF when arrangements made. Chest tube removal prior to dc. Plan discussed with patient in detail, all questions answered.
[2017-01-17] MEDS: SENNOSIDES 8.6MG TABLET (FP) PO SCH (11:16)
[2017-01-17] MEDS: CARVEDILOL 6.25 MG TABLET (FP) PO SCH ×2 (11:17→22:00)
[2017-01-17] MEDS: TAMSULOSIN HCL 0.4 MG CAP.ER.24H (FP) PO SCH (11:17)
[2017-01-17] MEDS: TORSEMIDE 100 MG TABLET PO SCH ×2 (11:17→22:01)
[2017-01-17] MEDS: GABAPENTIN 100 MG CAPSULE (FP) PO SCH ×2 (11:17→22:01)
[2017-01-17] MEDS: RANITIDINE HCL 150 MG TABLET (FP) PO SCH (11:17)
--- NOTE | 2017-01-17 11:17 | PN ---
Progress Note, Physician History of Present Illness: Dyspnea slowly improving, denies orthopnea. - Current Medication List Current Medications: Active Medications Carvedilol (Coreg -) 6.25 mg PO BID [facility] Last Admin: 01/16/17 22:19 Dose: 6.25 mg Docusate Sodium (Colace -) 100 mg PO TID [facility] Last Admin: 01/17/17 06:32 Dose: 100 mg Gabapentin (Neurontin -) 100 mg PO BID [facility] Last Admin: 01/16/17 22:19 Dose: 100 mg Insulin Aspart (Novolog Mix 70/30 Vial) 15 units SQ BIDAC [facility] Last Admin: 01/17/17 06:33 Dose: 15 units Insulin Aspart (Novolog Vial Sliding Scale -) 1 vial SQ ACHS [facility] PRN Reason: Protocol Last Admin: 01/17/17 06:33 Dose: 4 units Insulin Detemir (Levemir Vial) 50 units SQ BIDI [facility] Last Admin: 01/17/17 06:33 Dose: 50 units Lidocaine/Aluminum/Magnesium/Simeth (Magic Mouthwash *Sjr Formula* -) 5 ml MM Q6HPO [facility] Last Admin: 01/17/17 06:32 Dose: 5 ml Oxycodone HCl (Roxicodone -) 5 mg PO Q6H PRN PRN Reason: PAIN Last Admin: 01/16/17 22:11 Dose: 5 mg Polyethylene Glycol (Miralax (For Daily Use) -) 17 gm PO DAILY [facility] Last Admin: 01/16/17 09:06 Dose: 17 grams Ranitidine HCl (Zantac -) 150 mg PO DAILY [facility] Last Admin: 01/16/17 09:04 Dose: 150 mg Rivaroxaban (Xarelto -) 15 mg PO DAILY [facility] Last Admin: 01/16/17 09:05 Dose: 15 mg Senna (Senna -) 2 tab PO DAILY [facility] Last Admin: 01/16/17 09:06 Dose: 2 tab Tamsulosin HCl (Flomax -) 0.4 mg PO DAILY@0830 [facility] Last Admin: 01/16/17 09:04 Dose: 0.4 mg Tiotropium [place] (Spiriva -) 1 puff IH DAILY [facility] Last Admin: 01/16/17 09:06 Dose: 1 puff Torsemide (Demadex -) 100 mg PO BID [facility] Last Admin: 01/16/17 22:19 Dose: 100 mg Trazodone HCl (Desyrel -) 100 mg PO HS [facility] Last Admin: 01/16/17 22:19 Dose: 100 mg - Objective Vital Signs: Vital Signs Temperature 98.6 F 01/17/17 10:00 Pulse Rate 70 01/17/17 10:00 Respiratory Rate 20 01/17/17 10:00 Blood Pressure 111/63 01/17/17 10:00 O2 Sat by Pulse Oximetry (%) 90 L 01/16/17 21:00 Constitutional: Yes: No Distress, Calm Neck: Yes: Supple Cardiovascular: Yes: Regular Rate and Rhythm Respiratory: Yes: Diminished, On Nasal O2, Other (Right chest tube in place) Gastrointestinal: Yes: Normal Bowel Sounds, Soft, Abdomen, Obese Edema: Yes Edema: LLE: Trace, RLE: Trace Labs: CBC, BMP 01/17/17 05:48 01/17/17 05:48 INR, PTT INR 1.37 (0.82-1.09) H 01/09/17 05:35 - ....Imaging Chest X-ray: Report Reviewed (Unchanged) EKG: Report Reviewed (Tele: [facility]) Problem List - Problems (1) Acute urinary retention Code(s): R33.8 - OTHER RETENTION OF URINE (2) COPD (chronic obstructive pulmonary disease) Code(s): J44.9 - CHRONIC OBSTRUCTIVE PULMONARY DISEASE, UNSPECIFIED Qualifiers: COPD type: chronic bronchitis Chronic bronchitis type: unspecified Qualified Code(s): J42 - Unspecified chronic bronchitis (3) Hyperglycemia Code(s): R73.9 - HYPERGLYCEMIA, UNSPECIFIED (4) Leukocytosis Code(s): D72.829 - ELEVATED WHITE BLOOD CELL COUNT, UNSPECIFIED (5) Morbid obesity Code(s): E66.01 - MORBID (SEVERE) OBESITY DUE TO EXCESS CALORIES (6) Pleural effusion, right Code(s): J90 - PLEURAL EFFUSION, NOT ELSEWHERE CLASSIFIED (7) Renal failure, acute Code(s): N17.9 - ACUTE KIDNEY FAILURE, UNSPECIFIED Qualifiers: Acute renal failure type: unspecified Qualified Code(s): N17.9 - Acute kidney failure, unspecified (8) Acute on chronic systolic and diastolic heart failure, NYHA class 4 Code(s): I50.43 - ACUTE ON CHRONIC COMBINED SYSTOLIC AND DIASTOLIC HRT FAIL (9) Hx of CABG Code(s): Z95.1 - PRESENCE OF AORTOCORONARY BYPASS GRAFT (10) Ischemic cardiomyopathy Code(s): I25.5 - ISCHEMIC CARDIOMYOPATHY (11) LV dysfunction Code(s): I51.9 - HEART DISEASE, UNSPECIFIED (12) Lung nodule Code(s): R91.1 - SOLITARY PULMONARY NODULE (13) Poor compliance Code(s): Z91.19 - PATIENT'S NONCOMPLIANCE W OTH MEDICAL TREATMENT AND REGIMEN (14) S/P CABG (coronary artery bypass graft) Code(s): Z95.1 - PRESENCE OF AORTOCORONARY BYPASS GRAFT (15) Severe left ventricular systolic dysfunction Code(s): I51.9 - HEART DISEASE, UNSPECIFIED (16) Single implantable cardioverter-defibrillator (ICD) in situ Code(s): Z95.810 - PRESENCE OF AUTOMATIC (IMPLANTABLE) CARDIAC DEFIBRILLATOR (17) Type 2 diabetes mellitus with mild nonproliferative diabetic retinopathy without macular edema Code(s): E11.329 - TYPE 2 DIAB W MILD NONPRLF DIABETIC RTNOP W/O * DO NOT USE * Qualifiers: Diabetes mellitus chcf insulin use: with 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 (18) CKD (chronic kidney disease) Code(s): N18.9 - CHRONIC KIDNEY DISEASE, UNSPECIFIED Qualifiers: Chronic kidney disease stage: stage 3 (moderate) Qualified Code(s): N18.3 - Chronic kidney disease, stage 3 (moderate) (19) Diabetes mellitus, insulin dependent (IDDM), uncontrolled Code(s): E10.65 - TYPE 1 DIABETES MELLITUS WITH HYPERGLYCEMIA Qualifiers: Diabetes mellitus complication detail: with polyneuropathy (20) Obstructive sleep apnea of adult Code(s): G47.33 - OBSTRUCTIVE SLEEP APNEA (ADULT) (PEDIATRIC) (21) Bladder outlet obstruction Code(s): N32.0 - BLADDER-NECK OBSTRUCTION (22) Obstructive uropathy Code(s): N13.9 - OBSTRUCTIVE AND REFLUX UROPATHY, UNSPECIFIED (23) Deep venous thrombosis Code(s): I82.409 - ACUTE EMBOLISM AND THOMBOS UNSP DEEP VN UNSP LOWER EXTREMITY Qualifiers: DVT location: lower extremity Affected thrombotic vein of extremity: unspecified vein of extremity Chronicity: acute Laterality: right Qualified Code(s): I82.401 - Acute embolism and thrombosis of unspecified deep veins of right lower extremity (24) Anticoagulant long-term use Code(s): 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 Systolic LV dysfunction with chronic class II-III NYHA classification heart failure (ischemic dilated cardiomyopathy with pulmonary HTN), pleural effusion post chest tube insertion 2. CAD post [place]/CABG, angina pectoris 3. History of cardiac arrest post ICD 4. Persistent atrial fibrillation on NOAC's/Xarelto 5. Bladder outlet obstruction with ecoli bacteremia secondary to UTI/presumed prostatitis, resolved 6. MRSA left forearm abscess, resolved 7. HTN 8. DM 9. Hypercholesterolemia 10. History of CVA 11. Chronic hypoxic respiratory failure with home O2 dependent COPD 12. OSAS noncompliant with CPAP 13. Acute on CKD, resolving 14. History of RLE DVT 15. Anemia 16. Morbid obesity PLAN: 1. Continue Demadex 100 bid with close monitoring of renal function and electrolytes 2. Continue Carvedilol 6.25 bid 3. Ideally ARBS therapy to be resumed once renal function stabilized 4. Continue Xarelto 15 qd with close monitoring of CBC 5. As outlined above video-assisted Thoracoscopy is to be deferred at this point , for management of the noted persistent pleural effusion 6. Chest tube management 7. GI prophylaxis
[2017-01-17] MEDS: POLYETHYLENE GLYCOL 3350 119 GM BTL PO SCH (11:18)
[2017-01-17] MEDS: RIVAROXABAN 15 MG TABLET PO SCH (11:19)
[2017-01-17] MEDS: TIOTROPIUM BROMIDE 18 MCG/INH (DEVICE W/ 5 CAPSULES) IH SCH (11:19)
--- NOTE | 2017-01-17 12:28 | PN ---
Progress Note, Physician History of Present Illness: pulmonary alert,feeling better,oob-chair,-sob,-cp - Current Medication List Current Medications: Active Medications Carvedilol (Coreg -) 6.25 mg PO BID [facility] Last Admin: 01/17/17 11:17 Dose: 6.25 mg Docusate Sodium (Colace -) 100 mg PO TID [facility] Last Admin: 01/17/17 06:32 Dose: 100 mg Gabapentin (Neurontin -) 100 mg PO BID [facility] Last Admin: 01/17/17 11:17 Dose: 100 mg Insulin Aspart (Novolog Mix 70/30 Vial) 15 units SQ BIDAC [facility] Last Admin: 01/17/17 06:33 Dose: 15 units Insulin Aspart (Novolog Vial Sliding Scale -) 1 vial SQ ACHS [facility] PRN Reason: Protocol Last Admin: 01/17/17 11:16 Dose: 4 units Insulin Detemir (Levemir Vial) 50 units SQ BIDI [facility] Last Admin: 01/17/17 06:33 Dose: 50 units Lidocaine/Aluminum/Magnesium/Simeth (Magic Mouthwash *Sjr Formula* -) 5 ml MM Q6HPO [facility] Last Admin: 01/17/17 11:19 Dose: 5 ml Oxycodone HCl (Roxicodone -) 5 mg PO Q6H PRN PRN Reason: PAIN Last Admin: 01/16/17 22:11 Dose: 5 mg Polyethylene Glycol (Miralax (For Daily Use) -) 17 gm PO DAILY [facility] Last Admin: 01/17/17 11:18 Dose: 17 grams Ranitidine HCl (Zantac -) 150 mg PO DAILY [facility] Last Admin: 01/17/17 11:17 Dose: 150 mg Rivaroxaban (Xarelto -) 15 mg PO DAILY [facility] Last Admin: 01/17/17 11:19 Dose: 15 mg Senna (Senna -) 2 tab PO DAILY [facility] Last Admin: 01/17/17 11:16 Dose: 2 tab Tamsulosin HCl (Flomax -) 0.4 mg PO DAILY@0830 [facility] Last Admin: 01/17/17 11:17 Dose: 0.4 mg Tiotropium [place] (Spiriva -) 1 puff IH DAILY [facility] Last Admin: 01/17/17 11:19 Dose: 1 puff Torsemide (Demadex -) 100 mg PO BID [facility] Last Admin: 01/17/17 11:17 Dose: 100 mg Trazodone HCl (Desyrel -) 100 mg PO HS [facility] Last Admin: 01/16/17 22:19 Dose: 100 mg - Objective Vital Signs: Vital Signs Temperature 98.6 F 01/17/17 10:00 Pulse Rate 70 01/17/17 10:00 Respiratory Rate 20 01/17/17 10:00 Blood Pressure 111/63 01/17/17 10:00 O2 Sat by Pulse Oximetry (%) 90 L 01/16/17 21:00 Constitutional: Yes: Well Nourished, Calm Eyes: Yes: WNL HENT: Yes: WNL Neck: Yes: WNL Cardiovascular: Yes: Regular Rate and Rhythm, S1, S2 Respiratory: Yes: Rales (bilateral crackles 1/3 uo) Gastrointestinal: Yes: Normal Bowel Sounds, Soft Extremities: Yes: WNL Edema: No Labs: CBC, BMP 01/17/17 05:48 01/17/17 05:48 INR, PTT INR 1.37 (0.82-1.09) H 01/09/17 05:35 - ....Imaging Chest X-ray: Report Reviewed, Image Reviewed Problem List - Problems (1) Lung cancer Code(s): C34.90 - MALIGNANT NEOPLASM OF UNSP PART OF UNSP BRONCHUS OR LUNG (2) Acute urinary retention Code(s): R33.8 - OTHER RETENTION OF URINE (3) Anticoagulant long-term use Code(s): 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 (4) Bladder outlet obstruction Code(s): N32.0 - BLADDER-NECK OBSTRUCTION (5) COPD (chronic obstructive pulmonary disease) Code(s): J44.9 - CHRONIC OBSTRUCTIVE PULMONARY DISEASE, UNSPECIFIED Qualifiers: COPD type: chronic bronchitis Chronic bronchitis type: unspecified Qualified Code(s): J42 - Unspecified chronic bronchitis (6) Hyperglycemia Code(s): R73.9 - HYPERGLYCEMIA, UNSPECIFIED (7) Leukocytosis Code(s): D72.829 - ELEVATED WHITE BLOOD CELL COUNT, UNSPECIFIED (8) Morbid obesity Code(s): E66.01 - MORBID (SEVERE) OBESITY DUE TO EXCESS CALORIES (9) Obstructive uropathy Code(s): N13.9 - OBSTRUCTIVE AND REFLUX UROPATHY, UNSPECIFIED (10) Pleural effusion, right Code(s): J90 - PLEURAL EFFUSION, NOT ELSEWHERE CLASSIFIED (11) CHF (congestive heart failure) Code(s): I50.9 - HEART FAILURE, UNSPECIFIED Qualifiers: (12) Acute on chronic systolic and diastolic heart failure, NYHA class 4 Code(s): I50.43 - ACUTE ON CHRONIC COMBINED SYSTOLIC AND DIASTOLIC HRT FAIL (13) COPD (chronic obstructive pulmonary disease) case management patient Code(s): LWH2106 - (14) Dyspnea on exertion Code(s): R06.09 - OTHER FORMS OF DYSPNEA (15) Heart failure, systolic, with acute decompensation Code(s): I50.23 - ACUTE ON CHRONIC SYSTOLIC (CONGESTIVE) HEART FAILURE (16) Hx of CABG Code(s): Z95.1 - PRESENCE OF AORTOCORONARY BYPASS GRAFT (17) Ischemic cardiomyopathy Code(s): I25.5 - ISCHEMIC CARDIOMYOPATHY (18) LV dysfunction Code(s): I51.9 - HEART DISEASE, UNSPECIFIED (19) S/P CABG (coronary artery bypass graft) Code(s): Z95.1 - PRESENCE OF AORTOCORONARY BYPASS GRAFT (20) Single implantable cardioverter-defibrillator (ICD) in situ Code(s): Z95.810 - PRESENCE OF AUTOMATIC (IMPLANTABLE) CARDIAC DEFIBRILLATOR (21) Tobacco abuse Code(s): Z72.0 - TOBACCO USE (22) Obstructive sleep apnea of adult Code(s): G47.33 - OBSTRUCTIVE SLEEP APNEA (ADULT) (PEDIATRIC) Assessment/Plan IMP DYSPNEA IMPROVING ACUTE ON CHRONIC CHF HEMOTHORAX S/P CHEST TUBE COPD ON HOME O2 CHRONIC HYPOXEMIC RESPIRATORY FAILURE ASHD S/P CABG S/P CARDIAC ARREST S/P ICD OBSTRUCTIVE UROPATHY URINARY RETENTION ACUTE ON CHRONIC KIDNEY DISEASE POORLY CONTROLLED DM LUNG CA S/P RT GOUT OSAS PLAN O2 INHALED BRONCHODILATORS MONITOR LYTES,RENAL FUNCTION GLYCEMIC CONTROL CONTINUE TO MONITOR CHEST TUBE DRAINAGE CONSERVATIVE MANAGEMENT R PLEURAL EFFUSION PT IS A POOR CANDIDATE FOR SURGERY SECONDARY TO SEVERE CARDIAC DISEASE CONTINUE CHEST TUBE DRAINAGE DR BARBOSA Problem List - Problems (1) Lung cancer Code(s): C34.90 - MALIGNANT NEOPLASM OF UNSP PART OF UNSP BRONCHUS OR LUNG (2) Acute urinary retention Code(s): R33.8 - OTHER RETENTION OF URINE (3) Anticoagulant long-term use Code(s): Z79.01 - SENIOR CARE (CURRENT) USE OF 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 (4) Bladder outlet obstruction Code(s): N32.0 - BLADDER-NECK OBSTRUCTION (5) COPD (chronic obstructive pulmonary disease) Code(s): J44.9 - CHRONIC OBSTRUCTIVE PULMONARY DISEASE, UNSPECIFIED Qualifiers: COPD type: chronic bronchitis Chronic bronchitis type: unspecified Qualified Code(s): J42 - Unspecified chronic bronchitis (6) Hyperglycemia Code(s): R73.9 - HYPERGLYCEMIA, UNSPECIFIED (7) Leukocytosis Code(s): D72.829 - ELEVATED WHITE BLOOD CELL COUNT, UNSPECIFIED (8) Morbid obesity Code(s): E66.01 - MORBID (SEVERE) OBESITY DUE TO EXCESS CALORIES (9) Obstructive uropathy Code(s): N13.9 - OBSTRUCTIVE AND REFLUX UROPATHY, UNSPECIFIED (10) Pleural effusion, right Code(s): J90 - PLEURAL EFFUSION, NOT ELSEWHERE CLASSIFIED (11) CHF (congestive heart failure) Code(s): I50.9 - HEART FAILURE, UNSPECIFIED Qualifiers: (12) Acute on chronic systolic and diastolic heart failure, NYHA class 4 Code(s): I50.43 - ACUTE ON CHRONIC COMBINED SYSTOLIC AND DIASTOLIC HRT FAIL (13) COPD (chronic obstructive pulmonary disease) case management patient Code(s): ZMG1168 - (14) Dyspnea on exertion Code(s): R06.09 - OTHER FORMS OF DYSPNEA (15) Heart failure, systolic, with acute decompensation Code(s): I50.23 - ACUTE ON CHRONIC SYSTOLIC (CONGESTIVE) HEART FAILURE (16) Hx of CABG Code(s): Z95.1 - PRESENCE OF AORTOCORONARY BYPASS GRAFT (17) Ischemic cardiomyopathy Code(s): I25.5 - ISCHEMIC CARDIOMYOPATHY (18) LV dysfunction Code(s): I51.9 - HEART DISEASE, UNSPECIFIED (19) S/P CABG (coronary artery bypass graft) Code(s): Z95.1 - PRESENCE OF AORTOCORONARY BYPASS GRAFT (20) Single implantable cardioverter-defibrillator (ICD) in situ Code(s): Z95.810 - PRESENCE OF AUTOMATIC (IMPLANTABLE) CARDIAC DEFIBRILLATOR (21) Tobacco abuse Code(s): Z72.0 - TOBACCO USE (22) Obstructive sleep apnea of adult Code(s): G47.33 - OBSTRUCTIVE SLEEP APNEA (ADULT) (PEDIATRIC)
--- NOTE | 2017-01-17 13:02 | PN ---
Physical Exam: SUBJECTIVE: Patient seen and examined. Looks much improved. Breathign is better. Moving better. Asymptomatic. States everyone is rushing him to a long term OBJECTIVE: Vital Signs Period Temp Pulse Resp BP Sys/Mcconnell Pulse Ox Last 24 Hr 97.5 F-98.7 F 69-79 20-22 106-121/52-73 90 GEN: AAOx3, not in acute distress HEENT: PERRLA, EOMi CV: S1, S2, RRR LUNG: Bilateral crackles ABD: Soft, NT, ND, obese MSK: Venous stasis changes on both legs, no edema Active Medications Generic Name Dose Route Start Last Admin Trade Name Freq PRN Reason Stop Dose Admin Carvedilol 6.25 mg 01/08/17 21:52 01/17/17 11:17 Coreg - PO 6.25 mg BID [facility] Administration Docusate Sodium 100 mg 01/08/17 22:03 01/17/17 06:32 Colace - PO 100 mg TID [facility] Administration Gabapentin 100 mg 01/09/17 22:00 01/17/17 11:17 Neurontin - PO 100 mg BID [facility] Administration Insulin Aspart 15 units 01/09/17 16:30 01/17/17 06:33 Novolog Mix 70/30 Vial SQ 15 units BIDAC [facility] Administration Insulin Aspart 1 vial 01/09/17 16:30 01/17/17 11:16 Novolog Vial Sliding Scale - SQ 4 units ACHS [facility] Administration Protocol Insulin Detemir 50 units 01/09/17 16:30 01/17/17 06:33 Levemir Vial SQ 50 units BIDI [facility] Administration Lidocaine/Aluminum/Magnesium/Simeth 5 ml 01/15/17 21:00 01/17/17 11:19 Magic Mouthwash *Sjr Formula* - MM 5 ml Q6HPO [facility] Administration Oxycodone HCl 5 mg 01/10/17 14:03 01/16/17 22:11 Roxicodone - PO 5 mg Q6H PRN Administration PAIN Polyethylene Glycol 17 gm 01/14/17 11:45 01/17/17 11:18 Miralax (For Daily Use) - PO 17 grams DAILY [facility] Administration Ranitidine HCl 150 mg 01/10/17 10:00 01/17/17 11:17 Zantac - PO 150 mg DAILY [facility] Administration Rivaroxaban 15 mg 01/13/17 10:00 01/17/17 11:19 Xarelto - PO 15 mg DAILY [facility] Administration Senna 2 tab 01/09/17 10:00 01/17/17 11:16 Senna - PO 2 tab DAILY [facility] Administration Tamsulosin HCl 0.4 mg 01/10/17 08:30 01/17/17 11:17 Flomax - PO 0.4 mg DAILY@0830 [facility] Administration Tiotropium [place] 1 puff 01/10/17 10:00 01/17/17 11:19 Spiriva - IH 1 puff DAILY [facility] Administration Torsemide 100 mg 01/14/17 10:00 01/17/17 11:17 Demadex - PO 100 mg BID [facility] Administration Trazodone HCl 100 mg 01/08/17 22:00 01/16/17 22:19 Desyrel - PO 100 mg HS MAGEN Administration ASSESSMENT/PLAN: Mr. Holley is a 61yo M with PMHx of Ischemic cardiomyopathy, Systolic CHF, AICD s/ p cardiac arrest, COPD on home O2, BPH on Flomax. He presented to the ER with 2- 3 day hx of generalized weakness and fatigue, found to be in acute decompensated CHF and possible Pneumonia # Right Hemothorax - Possibly secondary to anticoagulation. Chest tube placed by CT surgery on . CXR looks much improved. - High risk for VATS. Conservative management for now with chest tube. SNF placement pending # Hx of DVT - Patient on Xarelto for R DVT and paroxsymal Afib with high risk of stroke and DVT formation. Restarted Xarelto. # Ischemic Cardiomyopathy - Pt has AICD. On Torsemide 100 BID + fluid restriction. Responded well to IV Lasix. Discussed w/ Cards, continue PO Torsemide. IV Lasix as needed # Hx of Constipation - On Docusate/Senna + Miralax, not working. Added Dulcolax suppository + Milk of Magnesia. # Urinary Retention - Likely from BPH, UA neg. Continue Flomax 0.4mg daily. Off cade. MARCIAL improved # Uncontrolled DM2 - A1C 14.2, Endocrine following, BGMs in good control. Continue Levemir 50u BID + Novolog 70/30 15u BIDAC + SSI. # Chronic Back Pain - Placed on Oxycodone 5mg Q6H PRN, has used it at home with relief. # Hx of COPD - On home O2 2-3L RTC, Continue Spiriva daily # Hx of Gout - Not on home Allopurinol due to MARCIAL # Hx of MDD - Continue Trazodone 100mg HS # Diabetic Neuropathy - Gabapentin 100 BID # Hx of Allergies - Continue Ranitidine # FEN - Not on fluids, elec, diabetic low sodium diet # PPx - Xarelto, no GI needed, Walked 5 feet with PT, encouraged OOB to chair # Dispo - Conservative management without VATS. Continue chest tube until discharge. D/C upon discharge. SNF placement pending. Likely today or tomorrow. d/w Dr Anuradha Carbajal MD - Resident PGY1 Internal medicine Visit type - Emergency Visit Emergency Visit: No - New Patient This patient is new to me today: No - Critical Care Critical Care patient: No - Discharge Referral Referred to [facility] Med P.C.: No
--- NOTE | 2017-01-17 15:46 | PN ---
Progress Note (short form) - Note Progress Note: I saw the patient with Dr. Villalobos this afternoon. His appears more bloody today, he had been restarted on his xarelto over the weekend. Overall the patient feels better. Vital Signs Period Temp Pulse Resp BP Sys/Mcconnell Pulse Ox Last 24 Hr 98.0 F-98.7 F 69-79 20-22 106-119/52-[address]: 550ml in tube, bloody GEN: OOB to chair Ct: no air leak, tube appears bloody. It was flushed today with 20ml NS, and 5 ml with clot aspirated out. CXR: lung expanded, decrease in pleural effusion CBC, BMP 01/17/17 05:48 01/17/17 05:48 A/P: 61 yo male with right pigtail cath for hemothorax Pt drainage now bloody, D/w Dr. Villalobos and the medical team. Will hold Xarelto and monitor outpt If it becomes less bloody than will plan for the pigtail cath removal on Sunday
[2017-01-17] MEDS ORDERED: INSULIN (NOVOLOG MIX 70/30) 100 UNITS/ML MDV SQ ONE (18:31)
[2017-01-17] MEDS ORDERED: INSULIN DETEMIR 100 UNITS/ML MDV SQ ONE (18:31)
[2017-01-17] MEDS ORDERED: PT OWN MED DRAWER 7, Y5N ONE (21:16)
[2017-01-17] MEDS: HEPARIN NA (PORCINE) 5,000 UNITS/ML 1ML VIAL SQ SCH (22:00)
[2017-01-17] MEDS: traZODone HCL 50 MG TABLET (FP) PO SCH (22:00)
[2017-01-17] MEDS: oxyCODONE HCL 5 MG TABLET PO PRN (22:11)
[2017-01-18] MEDS: MAG HYDROX/ALH/SMC/DPHA/LIDO 240 ML MOUTHWASH MM SCH ×4 (00:26→17:20)
[2017-01-18] MEDS ORDERED: PT OWN MED DRAWER 7, Y5N ONE ×6 (05:16→21:16)
[2017-01-18] MEDS: DOCUSATE SODIUM 100 MG CAPSULE (FP) PO SCH ×3 (05:43→21:46)
[2017-01-18] MEDS: HEPARIN NA (PORCINE) 5,000 UNITS/ML 1ML VIAL SQ SCH ×3 (05:43→21:48)
[2017-01-18] MEDS: oxyCODONE HCL 5 MG TABLET PO PRN ×2 (05:44→21:48)
[2017-01-18] MEDS: INSULIN DETEMIR 100 UNITS/ML MDV SQ SCH ×2 (06:32→17:18)
[2017-01-18] MEDS: INSULIN SLIDING SCALE (NOVOLOG) 1 VIAL SQ SCH ×4 (06:32→21:47)
[2017-01-18] MEDS: INSULIN (NOVOLOG MIX 70/30) 100 UNITS/ML MDV SQ SCH ×2 (06:32→17:16)
--- NOTE | 2017-01-18 07:43 | PN ---
Teaching Attending Note Name of Resident: Juan José Carbajal ATTENDING PHYSICIAN STATEMENT I saw and evaluated the patient. I reviewed the resident's note and discussed the case with the resident. I agree with the resident's findings and plan as documented. SUBJECTIVE: Patient seen and examined, breathing improved, able to sit in chair with assist , no chest pain, palptations, dizziness, abdominal or urinary symptoms currently. OBJECTIVE: Vital Signs Period Temp Pulse Resp BP Sys/Mcconnell Pulse Ox Last 24 Hr 97.2 F-99.2 F 70-86 17-20 100-119/53-63 95 Intake & Output 01/15/17 01/16/17 01/17/17 01/18/17 23:59 23:59 23:59 23:59 Intake Total 939 089 7767 200 Output Total 60 0 0 140 Balance 064 446 1469 60 Weight 234 lb 2 oz 235 lb General: sitting in chair in no acute distress CVS: S1S2 irregular Chest: bibasilar rales, postive air entry bilaterally Abdomen: soft, obese, NT extremities: improved pedal edema Home Medication List Medication Instructions Recorded Confirmed Type Allopurinol [Zyloprim -] 100 mg PO BID 09/05/16 01/08/17 History Calcium Carbonate 600 mg PO DAILY 09/05/16 01/08/17 History Carvedilol 6.25 mg PO BID 09/05/16 01/08/17 History Cholecalciferol (Vitamin D3) 1,000 unit MC DAILY 09/05/16 01/08/17 History [Cholecalciferol] Colchicine 0.6 mg PO DAILY 09/05/16 01/08/17 History Docusate Sodium 100 mg PO TID 09/05/16 01/08/17 History Famotidine/Ca Carb/Mag Hydrox 1 each PO DAILY 09/05/16 01/08/17 History [Pepcid Complete Tablet Chew] Gabapentin [Neurontin -] 100 mg PO BID 09/05/16 01/08/17 History Insulin Regular, Human [Humulin R 30 unit SQ DAILY 09/05/16 01/08/17 History U-500 Kwikpen] Liraglutide [Victoza -] 1.8 mg SQ DAILY@0700 09/05/16 01/08/17 History Oxycodone HCl/Acetaminophen 1 tab PO Q6H 09/05/16 01/08/17 History [Percocet 5-325 mg Tablet] Rivaroxaban [Xarelto -] 15 mg PO DAILY 09/05/16 01/08/17 History Sennosides [Senno] 2 tab PO DAILY 09/05/16 01/08/17 History Tamsulosin HCl 0.4 mg PO DAILY 09/05/16 01/08/17 History Torsemide 100 mg PO BID 09/05/16 01/08/17 History Chantix 1 tab PO BID 12/04/16 01/08/17 History Tiotropium [place] [Spiriva] 1 inh PO DAILY 01/08/17 01/08/17 History Trazodone HCl [Desyrel -] 100 mg PO HS 01/08/17 01/08/17 History Active Medications Generic Name Dose Route Start Last Admin Trade Name Freq PRN Reason Stop Dose Admin Carvedilol 6.25 mg 01/08/17 21:52 01/17/17 22:00 Coreg - PO 6.25 mg BID MAGEN Administration Docusate Sodium 100 mg 01/08/17 22:03 01/18/17 05:43 Colace - PO 100 mg TID MAGEN Administration Gabapentin 100 mg 01/09/17 22:00 01/17/17 22:01 Neurontin - PO 100 mg BID MAGEN Administration Heparin Sodium (Porcine) 5,000 unit 01/17/17 22:00 01/18/17 05:43 Heparin - SQ 5,000 unit TID MAGEN Administration Insulin Aspart 15 units 01/09/17 16:30 01/18/17 06:32 Novolog Mix 70/30 Vial SQ 15 units BIDAC [facility] Administration Insulin Aspart 1 vial 01/09/17 16:30 01/18/17 06:32 Novolog Vial Sliding Scale - SQ 2 units ACHS MAGEN Administration Protocol Insulin Detemir 50 units 01/09/17 16:30 01/18/17 06:32 Levemir Vial SQ 50 units BIDI [facility] Administration Lidocaine/Aluminum/Magnesium/Simeth 5 ml 01/15/17 21:00 01/18/17 05:43 Magic Mouthwash *Sjr Formula* - MM 5 ml Q6HPO MAGEN Administration Oxycodone HCl 5 mg 01/10/17 14:03 01/18/17 05:44 Roxicodone - PO 5 mg Q6H PRN Administration PAIN Polyethylene Glycol 17 gm 01/14/17 11:45 01/17/17 11:18 Miralax (For Daily Use) - PO 17 grams DAILY MAG[facility] Administration Ranitidine HCl 150 mg 01/10/17 10:00 01/17/17 11:17 Zantac - PO 150 mg DAILY MAG[facility] Administration Senna 2 tab 01/09/17 10:00 01/17/17 11:16 Senna - PO 2 tab DAILY [facility] Administration Tamsulosin HCl 0.4 mg 01/10/17 08:30 01/17/17 11:17 Flomax - PO 0.4 mg DAILY@0830 [facility] Administration Tiotropium [place] 1 puff 01/10/17 10:00 01/17/17 11:19 Spiriva - IH 1 puff DAILY [facility] Administration Torsemide 100 mg 01/14/17 10:00 01/17/17 22:01 Demadex - PO 100 mg BID MAG[facility] Administration Trazodone HCl 100 mg 01/08/17 22:00 01/17/17 22:00 Desyrel - PO 100 mg HS MAGEN Administration Laboratory Results - last 24 hr 01/17/17 01/17/17 01/18/17 16:54 21:53 05:35 WBC 13.4 H RBC 3.74 L Hgb 11.1 L Hct 33.8 L MCV 90.4 MCH 29.7 MCHC 32.9 RDW 14.5 Plt Count 225 MPV 8.5 Total Counted 100 Neutrophils % No Result Required. Neutrophils % (Manual) 81.0 Band Neutrophils % 2.0 Lymphocytes % No Result Required. Lymphocytes % (Manual) 6.0 L Monocytes % (Manual) 7 Eosinophils % (Manual) 3.0 D Metamyelocytes 1 Platelet Estimate Adequate Sodium Potassium Chloride Carbon Dioxide Anion Gap BUN Creatinine Creat Clearance w eGFR POC Glucometer 287 311 Random Glucose Calcium Phosphorus Magnesium Total Bilirubin AST ALT Alkaline Phosphatase Total Protein Albumin 01/18/17 01/18/17 01/18/17 05:35 05:46 11:14 WBC RBC Hgb Hct MCV MCH MCHC RDW Plt Count MPV Total Counted Neutrophils % Neutrophils % (Manual) Band Neutrophils % Lymphocytes % Lymphocytes % (Manual) Monocytes % (Manual) Eosinophils % (Manual) Metamyelocytes Platelet Estimate Sodium 138 Potassium 4.0 Chloride 100 Carbon Dioxide 32 Anion Gap 6 L BUN 48 H Creatinine 1.5 H Creat Clearance w eGFR 47.58 POC Glucometer 200 213 Random Glucose 180 H Calcium 7.9 L Phosphorus 2.9 Magnesium 2.3 Total Bilirubin 1.1 H AST 71 H D ALT 68 D Alkaline Phosphatase 669 H D Total Protein 6.4 Albumin 2.0 L Microbiology 01/10/17 11:30 Pleural Fluid AFB Smear Concentration - Final 01/10/17 11:30 Pleural Fluid Mycobacterial Culture - Preliminary 01/08/17 04:18 Blood - Peripheral Venous Blood Culture - Final NO GROWTH AFTER 5 DAYS INCUBATION 01/08/17 04:33 Blood - Peripheral Venous Blood Culture - Final NO GROWTH AFTER 5 DAYS INCUBATION 01/10/17 11:30 Pleural Fluid Gram Stain - Final 01/10/17 11:30 Pleural Fluid Body Fluid Culture - Final NO GROWTH OF AEROBIC ORGANISMS AFTER 48 HOURS INCUBATION 01/10/17 11:30 Pleural Fluid Anaerobic Culture - Final NO ANAEROBES WERE ISOLATED 01/09/17 18:00 Nares - Mrsa Screen - Right MRSA Screen - Final NO MRSA ISOLATED 01/10/17 11:30 Pleural Fluid HEMANT Preparation - Preliminary 01/10/17 11:30 Pleural Fluid Fungal Culture - Preliminary 01/08/17 11:50 Nares - Mrsa Screen - Left MRSA Screen - Final NO MRSA ISOLATED 01/08/17 11:50 Urine - Urine - Catheterized Urine Culture - Final NO GROWTH OBTAINED 01/08/17 11:50 Urine - Urine - Catheterized Legionella Antigen - Final 01/08/17 11:50 Urine - Urine - Catheterized Streptococcus pneumoniae Antigen (M - Final ASSESSMENT AND PLAN: 61yo M wtih PMH HTN, HLD, idiopathic dilated cardiomyopathy, systolic heart failure s/p PPM/AICD, CAD s/p CABG x4, h/o DVT on Xarelto, COPD on home O2, CKD , IDDM, lung cancer s/p radiation (2017), prostatitis, MRSA abscess left forearm , hepatitis B presented to the ER with difficulty urinating and generalized weakness -Urinary retention -MARCIAL on CKD -Sepsis due to suspected pNA vs complicated pleural effusion/hemothorax -Sustained Vtach/NSVT -Acute blood loss anemia, from hemothorax -Acute on chronic systolic heart failure exacerbation -Ischemic cardiomyopathy -Constipation -COPD on home oxygen -IDDM -DVT -PAF,high CHADSvasc2 score Plan: Chest tube placement 01/11. With 140 ml bloody drainage over last [address] surgery input noted. Hold xarelto, plan for reassessment for removal on sunday based on lung findings and drainage. CXR noted, ?worsening right pleural effusion, discuss with CT surgery/Pulmonary for follow up CT chest Daily CXR, off antibiotics, monitor for now. ID/Pulmonary input appreciated. Additional lasix 60 mg IV x 1 with close monitoring of renal function and lytes. Continue torsemide. Strict I/Os and daily weights. Had cade placement on admission with 2L urine output, voiding freely now. [place] catheter for strict I/Os as able, continue flomax Telemetry, monitor lytes, continue coreg. H/h stable now, on anti-coagulation, monitor. Continue Levemir/Novolog 70/30, ISS, diabetic diet. At home oxygen requirements. Xarelto on hold given ongoing bloody drainage from chest tube and concerns for worsening effusion, though patient with high CHADSvasc2 score, risk from going bleed with worsening hemothorax outweigh benefits of continuation of anti- coagulation at this point. Laxatives prn Dispo planning on hold given ongoing bloody drainage and need for close monitoring with chest tube. Plan discussed with patient and at bedside in detail, all questions answered.
[2017-01-18 07:44] LABS: MCH 29.7 pg (25.7-33.7); MCHC 32.9 g/dl (32.0-35.9); MEAN CELL VOLUME 90.4 fl (80-96); MEAN PLT VOLUME 8.5 fl (7.5-11.1); PLATELET COUNT 225 K/MM3 (134-434); RDW 14.5 % (11.9-15.9); WHITE BLOOD COUNT 13.4 K/mm3 (4.0-10.0)
[2017-01-18 08:03] LABS: ANION GAP 6 (8-16); CALCIUM 7.9 mg/dL (8.5-10.1); CO2 32 mmol/L (21-32); CREATININE 1.5 mg/dL (0.7-1.3); GLUCOSE,RANDOM 180 mg/dL (74-106); MAGNESIUM 2.3 mg/dL (1.8-2.4); PHOSPHOROUS 2.9 mg/dL (2.5-4.9); SGOT/AST 71 U/L (15-37); SGPT/ALT 68 U/L (12-78)
[2017-01-18 08:04] LABS: ALK PHOS 669 U/L (45-117); BILIRUBIN,TOTAL 1.1 mg/dL (0.2-1.0); TOT PROT 6.4 g/dl (6.4-8.2)
--- NOTE | 2017-01-18 08:19 | PN ---
Physical Exam: SUBJECTIVE: Patient seen and examined. Feels bloated, but not constipated. Breathing is good. No CP. OBJECTIVE: Vital Signs Period Temp Pulse Resp BP Sys/Mcconnell Pulse Ox Last 24 Hr 97.2 F-99.2 F 70-86 17-20 100-119/53-63 95 GEN: AAOx3, not in acute distress HEENT: PERRLA, EOMi CV: S1, S2, RRR LUNG: Bilateral crackles ABD: Soft, NT, ND, obese MSK: Venous stasis changes on both legs, no edema Active Medications Generic Name Dose Route Start Last Admin Trade Name Freq PRN Reason Stop Dose Admin Carvedilol 6.25 mg 01/08/17 21:52 01/17/17 22:00 Coreg - PO 6.25 mg BID MAGEN Administration Docusate Sodium 100 mg 01/08/17 22:03 01/18/17 05:43 Colace - PO 100 mg TID MAGEN Administration Gabapentin 100 mg 01/09/17 22:00 01/17/17 22:01 Neurontin - PO 100 mg BID MAGEN Administration Heparin Sodium (Porcine) 5,000 unit 01/17/17 22:00 01/18/17 05:43 Heparin - SQ 5,000 unit TID MAGEN Administration Insulin Aspart 15 units 01/09/17 16:30 01/18/17 06:32 Novolog Mix 70/30 Vial SQ 15 units BIDAC MAGEN Administration Insulin Aspart 1 vial 01/09/17 16:30 01/18/17 06:32 Novolog Vial Sliding Scale - SQ 2 units ACHS MAGEN Administration Protocol Insulin Detemir 50 units 01/09/17 16:30 01/18/17 06:32 Levemir Vial SQ 50 units BIDI MAGEN Administration Lidocaine/Aluminum/Magnesium/Simeth 5 ml 01/15/17 21:00 01/18/17 05:43 Magic Mouthwash *Sjr Formula* - MM 5 ml Q6HPO MAGEN Administration Oxycodone HCl 5 mg 01/10/17 14:03 01/18/17 05:44 Roxicodone - PO 5 mg Q6H PRN Administration PAIN Polyethylene Glycol 17 gm 01/14/17 11:45 01/17/17 11:18 Miralax (For Daily Use) - PO 17 grams DAILY MAGEN Administration Ranitidine HCl 150 mg 01/10/17 10:00 01/17/17 11:17 Zantac - PO 150 mg DAILY MAGEN Administration Senna 2 tab 01/09/17 10:00 01/17/17 11:16 Senna - PO 2 tab DAILY MAGEN Administration Tamsulosin HCl 0.4 mg 01/10/17 08:30 01/17/17 11:17 Flomax - PO 0.4 mg DAILY@0830 MAGEN Administration Tiotropium [place] 1 puff 01/10/17 10:00 01/17/17 11:19 Spiriva - IH 1 puff DAILY MAGEN Administration Torsemide 100 mg 01/14/17 10:00 01/17/17 22:01 Demadex - PO 100 mg BID MAGEN Administration Trazodone HCl 100 mg 01/08/17 22:00 01/17/17 22:00 Desyrel - PO 100 mg HS MAGEN Administration ASSESSMENT/PLAN: Mr. Holley is a 61yo M with PMHx of Ischemic cardiomyopathy, Systolic CHF, AICD s/ p cardiac arrest, COPD on home O2, BPH on Flomax. He presented to the ER with 2- 3 day hx of generalized weakness and fatigue, found to be in acute decompensated CHF and possible Pneumonia # Right Hemothorax - Possibly secondary to anticoagulation. Chest tube placed by CT surgery on . Still draining. Conservative management, too high risk for VATS - Spoke to Dr Villalobos yesterday, chest tube continues to drain, will leave in until tmrw. Hold SNF placement till tmrw # Hx of Afib - Sinus now, hold Xarelto since chest tube draining, though H/H counts are stable. # Ischemic Cardiomyopathy - Has AICD. On Torsemide 100 BID + fluid restriction. CXR looks more congested, will give IVP Lasix 60 today # Hx of Constipation - On Docusate/Senna + Miralax, not working. Added Dulcolax suppository + Milk of Magnesia. # Urinary Retention - Likely from BPH, UA neg. Continue Flomax 0.4mg daily. Off cade. MARCIAL improved # Uncontrolled DM2 - A1C 14.2, Endocrine following, BGMs in good control. Continue Levemir 55u BID + Novolog 70/30 15u BIDAC + SSI. # Chronic Back Pain - Placed on Oxycodone 5mg Q6H PRN, has used it at home with relief. # Hx of COPD - On home O2 2-3L RTC, Continue Spiriva daily # Hx of Gout - Not on home Allopurinol due to MARCIAL # Hx of MDD - Continue Trazodone 100mg HS # Diabetic Neuropathy - Gabapentin 100 BID # Hx of Allergies - Continue Ranitidine # FEN - Not on fluids, elec, diabetic low sodium diet # PPx - Xarelto, no GI needed, Walked 3 feet with PT, encouraged OOB to chair # Dispo - Conservative management without VATS. Since chest tube continues to have drainage with clots. Possible d/c tomorrow. Continue PT d/w Dr Anuradha Carbajal MD - Resident PGY1 Internal medicine Visit type - Emergency Visit Emergency Visit: No - New Patient This patient is new to me today: No - Critical Care Critical Care patient: No - Discharge Referral Referred to [facility] No
[2017-01-18] MEDS ORDERED: FUROSEMIDE 40 MG/4 ML INJECTABLE VIAL IVPUSH ONE (09:15)
[2017-01-18 10:01] LABS: TOTAL CELLS COUNTED 100
[2017-01-18 10:02] LABS: METAMYELOCYTE 1 % (0-2)
[2017-01-18 10:03] LABS: PLATELET ESTIMATE ADEQUATE
--- NOTE | 2017-01-18 10:56 | PN ---
Progress Note, Physician History of Present Illness: Dyspnea slowly improving, denies orthopnea, comfortable OOB to chair. Xarelto d/ hamzah for bloody pleural effusion. - Current Medication List Current Medications: Active Medications Carvedilol (Coreg -) 6.25 mg PO BID [facility] Last Admin: 01/17/17 22:00 Dose: 6.25 mg Docusate Sodium (Colace -) 100 mg PO TID [facility] Last Admin: 01/18/17 05:43 Dose: 100 mg Gabapentin (Neurontin -) 100 mg PO BID [facility] Last Admin: 01/17/17 22:01 Dose: 100 mg Heparin Sodium (Porcine) (Heparin -) 5,000 unit SQ TID [facility] Last Admin: 01/18/17 05:43 Dose: 5,000 unit Insulin Aspart (Novolog Mix 70/30 Vial) 15 units SQ BIDAC [facility] Last Admin: 01/18/17 06:32 Dose: 15 units Insulin Aspart (Novolog Vial Sliding Scale -) 1 vial SQ ACHS [facility] PRN Reason: Protocol Last Admin: 01/18/17 06:32 Dose: 2 units Insulin Detemir (Levemir Vial) 50 units SQ BIDI [facility] Last Admin: 01/18/17 06:32 Dose: 50 units Lidocaine/Aluminum/Magnesium/Simeth (Magic Mouthwash *Sjr Formula* -) 5 ml MM Q6HPO [facility] Last Admin: 01/18/17 05:43 Dose: 5 ml Oxycodone HCl (Roxicodone -) 5 mg PO Q6H PRN PRN Reason: PAIN Last Admin: 01/18/17 05:44 Dose: 5 mg Polyethylene Glycol (Miralax (For Daily Use) -) 17 gm PO DAILY [facility] Last Admin: 01/17/17 11:18 Dose: 17 grams Ranitidine HCl (Zantac -) 150 mg PO DAILY [facility] Last Admin: 01/17/17 11:17 Dose: 150 mg Senna (Senna -) 2 tab PO DAILY [facility] Last Admin: 01/17/17 11:16 Dose: 2 tab Tamsulosin HCl (Flomax -) 0.4 mg PO DAILY@0830 [facility] Last Admin: 01/17/17 11:17 Dose: 0.4 mg Tiotropium [place] (Spiriva -) 1 puff IH DAILY [facility] Last Admin: 01/17/17 11:19 Dose: 1 puff Torsemide (Demadex -) 100 mg PO BID [facility] Last Admin: 01/17/17 22:01 Dose: 100 mg Trazodone HCl (Desyrel -) 100 mg PO HS [facility] Last Admin: 01/17/17 22:00 Dose: 100 mg - Objective Vital Signs: Vital Signs Temperature 98.8 F 01/18/17 05:04 Pulse Rate 78 01/18/17 05:04 Respiratory Rate 20 01/18/17 05:04 Blood Pressure 114/58 01/18/17 05:04 O2 Sat by Pulse Oximetry (%) 95 01/17/17 09:00 Constitutional: Yes: No Distress, Calm Neck: Yes: Supple Cardiovascular: Yes: Regular Rate and Rhythm Respiratory: Yes: Regular, Diminished, On Nasal O2, Other (Right chest tube in) Gastrointestinal: Yes: Normal Bowel Sounds, Soft Edema: No Labs: CBC, BMP 01/18/17 05:35 01/18/17 05:35 INR, PTT INR 1.37 (0.82-1.09) H 01/09/17 05:35 - ....Imaging Chest X-ray: Report Reviewed (Increased right effusion and congestion) EKG: Report Reviewed (Tele: NSR occ [facility]) Problem List - Problems (1) Acute urinary retention Code(s): R33.8 - OTHER RETENTION OF URINE (2) COPD (chronic obstructive pulmonary disease) Code(s): J44.9 - CHRONIC OBSTRUCTIVE PULMONARY DISEASE, UNSPECIFIED Qualifiers: COPD type: chronic bronchitis Chronic bronchitis type: unspecified Qualified Code(s): J42 - Unspecified chronic bronchitis (3) Hyperglycemia Code(s): R73.9 - HYPERGLYCEMIA, UNSPECIFIED (4) Leukocytosis Code(s): D72.829 - ELEVATED WHITE BLOOD CELL COUNT, UNSPECIFIED (5) Morbid obesity Code(s): E66.01 - MORBID (SEVERE) OBESITY DUE TO EXCESS CALORIES (6) Pleural effusion, right Code(s): J90 - PLEURAL EFFUSION, NOT ELSEWHERE CLASSIFIED (7) Renal failure, acute Code(s): N17.9 - ACUTE KIDNEY FAILURE, UNSPECIFIED Qualifiers: Acute renal failure type: unspecified Qualified Code(s): N17.9 - Acute kidney failure, unspecified (8) Acute on chronic systolic and diastolic heart failure, NYHA class 4 Code(s): I50.43 - ACUTE ON CHRONIC COMBINED SYSTOLIC AND DIASTOLIC HRT FAIL (9) Hx of CABG Code(s): Z95.1 - PRESENCE OF AORTOCORONARY BYPASS GRAFT (10) Ischemic cardiomyopathy Code(s): I25.5 - ISCHEMIC CARDIOMYOPATHY (11) LV dysfunction Code(s): I51.9 - HEART DISEASE, UNSPECIFIED (12) Lung nodule Code(s): R91.1 - SOLITARY PULMONARY NODULE (13) Poor compliance Code(s): Z91.19 - PATIENT'S NONCOMPLIANCE W OTH MEDICAL TREATMENT AND REGIMEN (14) S/P CABG (coronary artery bypass graft) Code(s): Z95.1 - PRESENCE OF AORTOCORONARY BYPASS GRAFT (15) Severe left ventricular systolic dysfunction Code(s): I51.9 - HEART DISEASE, UNSPECIFIED (16) Single implantable cardioverter-defibrillator (ICD) in situ Code(s): Z95.810 - PRESENCE OF AUTOMATIC (IMPLANTABLE) CARDIAC DEFIBRILLATOR (17) Type 2 diabetes mellitus with mild nonproliferative diabetic retinopathy without macular edema Code(s): E11.329 - TYPE 2 DIAB W MILD NONPRLF DIABETIC RTNOP W/O * DO NOT USE * Qualifiers: Diabetes mellitus termite helper insulin use: with termite helper use (18) CKD (chronic kidney disease) Code(s): N18.9 - CHRONIC KIDNEY DISEASE, UNSPECIFIED Qualifiers: Chronic kidney disease stage: stage 3 (moderate) Qualified Code(s): N18.3 - Chronic kidney disease, stage 3 (moderate) (19) Diabetes mellitus, insulin dependent (IDDM), uncontrolled Code(s): E10.65 - TYPE 1 DIABETES MELLITUS WITH HYPERGLYCEMIA Qualifiers: Diabetes mellitus complication detail: with polyneuropathy (20) Obstructive sleep apnea of adult Code(s): G47.33 - OBSTRUCTIVE SLEEP APNEA (ADULT) (PEDIATRIC) (21) Bladder outlet obstruction Code(s): N32.0 - BLADDER-NECK OBSTRUCTION (22) Obstructive uropathy Code(s): N13.9 - OBSTRUCTIVE AND REFLUX UROPATHY, UNSPECIFIED (23) Deep venous thrombosis Code(s): I82.409 - ACUTE EMBOLISM AND THOMBOS UNSP DEEP VN UNSP LOWER EXTREMITY Qualifiers: DVT location: lower extremity Affected thrombotic vein of extremity: unspecified vein of extremity Chronicity: acute Laterality: right Qualified Code(s): I82.401 - Acute embolism and thrombosis of unspecified deep veins of right lower extremity (24) Anticoagulant long-term use Code(s): Z79.01 - STEEL BOX TOE INSERTER (CURRENT) USE OF 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 Assessment/Plan 1. Systolic LV dysfunction with chronic class II-III NYHA classification heart failure (ischemic dilated cardiomyopathy with pulmonary HTN), right pleural effusion post chest tube insertion 2. CAD post SC/CABG, angina pectoris 3. History of cardiac arrest post ICD 4. Paroxysmal atrial fibrillation off NOAC's/Xarelto 5. Bladder outlet obstruction with ecoli bacteremia secondary to UTI/presumed prostatitis, resolved 6. MRSA left forearm abscess, resolved 7. HTN 8. DM 9. Hypercholesterolemia 10. History of CVA 11. Chronic hypoxic respiratory failure with home O2 dependent COPD 12. OSAS noncompliant with CPAP 13. Acute on CKD, resolving 14. History of RLE DVT 15. Anemia 16. Morbid obesity PLAN: 1. Continue Demadex 100 bid with close monitoring of renal function and electrolytes 2. Continue Carvedilol 6.25 bid 3. Ideally ARBS therapy to be resumed once renal function stabilized 4. Would resume Xarelto 15 qd with resolution of hemothorax 5. As outlined above video-assisted Thoracoscopy is to be deferred at this point , for management of the noted persistent pleural effusion 6. Chest tube management appreciated 7. DVT and GI prophylaxis
[2017-01-18] MEDS: GABAPENTIN 100 MG CAPSULE (FP) PO SCH ×2 (11:01→21:47)
[2017-01-18] MEDS: SENNOSIDES 8.6MG TABLET (FP) PO SCH (11:02)
[2017-01-18] MEDS: TAMSULOSIN HCL 0.4 MG CAP.ER.24H (FP) PO SCH (11:02)
[2017-01-18] MEDS: RANITIDINE HCL 150 MG TABLET (FP) PO SCH (11:02)
[2017-01-18] MEDS: TORSEMIDE 100 MG TABLET PO SCH ×2 (11:10→21:48)
[2017-01-18] MEDS: CARVEDILOL 6.25 MG TABLET (FP) PO SCH ×2 (11:10→21:47)
[2017-01-18] MEDS ORDERED: INSULIN (NOVOLOG) ASPART 100 UNITS/ML 10ML VIAL ONE ×2 (11:58→21:20)
[2017-01-18] MEDS: POLYETHYLENE GLYCOL 3350 119 GM BTL PO SCH (12:04)
--- NOTE | 2017-01-18 12:36 | PN ---
Progress Note (short form) - Note Progress Note: Pt without complaints today. No SOB. Vital Signs Period Temp Pulse Resp BP Sys/Mcconnell Pulse Ox Last 24 Hr 97.2 F-99.2 F 76-86 17-20 100-119/53-60 CT-140ml bloody GEN: oob to chair, NAD CT: bloody outpt: FLushed today with 30ml NS with 15 ml return. some clots. CXR: infiltrate at the base/pelural effusion CBC, BMP 01/18/17 05:35 01/18/17 05:35 A/P: 61 yo male s/p right pigtail cath for hemothorax Catheter flushed today and it remains on suction D/w Dr. Villalobos will observe, possibly remove the tube tomorrow CXR ordered for 01/19
--- NOTE | 2017-01-18 13:38 | PN ---
Progress Note (short form) - Note Progress Note: Breathing feels OK. Bloody pleural effusion noted. 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 Intake & Output 01/15/17 01/16/17 01/17/17 01/18/17 23:59 23:59 23:59 23:59 Intake Total 103 777 4650 200 Output Total 60 0 0 140 Balance 683 775 0581 60 Weight 234 lb 2 oz 235 lb Last Vital Signs Temp Pulse Resp BP Pulse Ox 98.8 F 78 20 114/58 95 01/18/17 05:04 01/18/17 05:04 01/18/17 05:04 01/18/17 05:04 01/17/17 09:00 Active Medications Carvedilol (Coreg -) 6.25 mg PO BID [facility] Last Admin: 01/18/17 11:10 Dose: Not Given Docusate Sodium (Colace -) 100 mg PO TID [facility] Last Admin: 01/18/17 05:43 Dose: 100 mg Gabapentin (Neurontin -) 100 mg PO BID [facility] Last Admin: 01/18/17 11:01 Dose: 100 mg Heparin Sodium (Porcine) (Heparin -) 5,000 unit SQ TID [facility] Last Admin: 01/18/17 05:43 Dose: 5,000 unit Insulin Aspart (Novolog Mix 70/30 Vial) 15 units SQ BIDAC [facility] Last Admin: 01/18/17 06:32 Dose: 15 units Insulin Aspart (Novolog Vial Sliding Scale -) 1 vial SQ ACHS [facility] PRN Reason: Protocol Last Admin: 01/18/17 12:01 Dose: 4 units Insulin Detemir (Levemir Vial) 55 units SQ BIDI [facility] Lidocaine/Aluminum/Magnesium/Simeth (Magic Mouthwash *Sjr Formula* -) 5 ml MM Q6HPO [facility] Last Admin: 01/18/17 13:28 Dose: Not Given Oxycodone HCl (Roxicodone -) 5 mg PO Q6H PRN PRN Reason: PAIN Last Admin: 01/18/17 05:44 Dose: 5 mg Polyethylene Glycol (Miralax (For Daily Use) -) 17 gm PO DAILY [facility] Last Admin: 01/18/17 12:04 Dose: Not Given Ranitidine HCl (Zantac -) 150 mg PO DAILY [facility] Last Admin: 01/18/17 11:02 Dose: 150 mg Senna (Senna -) 2 tab PO DAILY [facility] Last Admin: 01/18/17 11:02 Dose: 2 tab Tamsulosin HCl (Flomax -) 0.4 mg PO DAILY@0830 [facility] Last Admin: 01/18/17 11:02 Dose: 0.4 mg Tiotropium [place] (Spiriva -) 1 puff IH DAILY [facility] Last Admin: 01/17/17 11:19 Dose: 1 puff Torsemide (Demadex -) 100 mg PO BID [facility] Last Admin: 01/18/17 11:10 Dose: Not Given Trazodone HCl (Desyrel -) 100 mg PO HS [facility] Last Admin: 01/17/17 22:00 Dose: 100 mg Constitutional: Yes: NAD Eyes: Yes: WNL HENT: Yes: WNL Neck: Yes: WNL Cardiovascular: Yes: Regular Rate and Rhythm, S1, S2 Respiratory: Yes: Bibasilar Rales/rhonchi Gastrointestinal: Yes: Normal Bowel Sounds, Soft Extremities: Yes: WNL Edema: No Labs: Laboratory Results - last 24 hr 01/17/17 01/17/17 01/18/17 16:54 21:53 05:35 WBC 13.4 H RBC 3.74 L Hgb 11.1 L Hct 33.8 L MCV 90.4 MCH 29.7 MCHC 32.9 RDW 14.5 Plt Count 225 MPV 8.5 Total Counted 100 Neutrophils % No Result Required. Neutrophils % (Manual) 81.0 Band Neutrophils % 2.0 Lymphocytes % No Result Required. Lymphocytes % (Manual) 6.0 L Monocytes % (Manual) 7 Eosinophils % (Manual) 3.0 D Metamyelocytes 1 Platelet Estimate Adequate Sodium Potassium Chloride Carbon Dioxide Anion Gap BUN Creatinine Creat Clearance w eGFR POC Glucometer 287 311 Random Glucose Calcium Phosphorus Magnesium Total Bilirubin AST ALT Alkaline Phosphatase Total Protein Albumin 01/18/17 01/18/17 01/18/17 05:35 05:46 11:14 WBC RBC Hgb Hct MCV MCH MCHC RDW Plt Count MPV Total Counted Neutrophils % Neutrophils % (Manual) Band Neutrophils % Lymphocytes % Lymphocytes % (Manual) Monocytes % (Manual) Eosinophils % (Manual) Metamyelocytes Platelet Estimate Sodium 138 Potassium 4.0 Chloride 100 Carbon Dioxide 32 Anion Gap 6 L BUN 48 H Creatinine 1.5 H Creat Clearance w eGFR 47.58 POC Glucometer 200 213 Random Glucose 180 H Calcium 7.9 L Phosphorus 2.9 Magnesium 2.3 Total Bilirubin 1.1 H AST 71 H D ALT 68 D Alkaline Phosphatase 669 H D Total Protein 6.4 Albumin 2.0 L Problem List - Problems (1) Lung cancer Code(s): C34.90 - MALIGNANT NEOPLASM OF UNSP PART OF UNSP BRONCHUS OR LUNG (2) Acute urinary retention Code(s): R33.8 - OTHER RETENTION OF URINE (3) Anticoagulant long-term use Code(s): 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 (4) Bladder outlet obstruction Code(s): N32.0 - BLADDER-NECK OBSTRUCTION (5) COPD (chronic obstructive pulmonary disease) Code(s): J44.9 - CHRONIC OBSTRUCTIVE PULMONARY DISEASE, UNSPECIFIED Qualifiers: COPD type: chronic bronchitis Chronic bronchitis type: unspecified Qualified Code(s): J42 - Unspecified chronic bronchitis (6) Hyperglycemia Code(s): R73.9 - HYPERGLYCEMIA, UNSPECIFIED (7) Leukocytosis Code(s): D72.829 - ELEVATED WHITE BLOOD CELL COUNT, UNSPECIFIED (8) Morbid obesity Code(s): E66.01 - MORBID (SEVERE) OBESITY DUE TO EXCESS CALORIES (9) Obstructive uropathy Code(s): N13.9 - OBSTRUCTIVE AND REFLUX UROPATHY, UNSPECIFIED (10) Pleural effusion, right Code(s): J90 - PLEURAL EFFUSION, NOT ELSEWHERE CLASSIFIED (11) CHF (congestive heart failure) Code(s): I50.9 - HEART FAILURE, UNSPECIFIED Qualifiers: (12) Acute on chronic systolic and diastolic heart failure, NYHA class 4 Code(s): I50.43 - ACUTE ON CHRONIC COMBINED SYSTOLIC AND DIASTOLIC HRT FAIL (13) COPD (chronic obstructive pulmonary disease) case management patient Code(s): VGZ0451 - (14) Dyspnea on exertion Code(s): R06.09 - OTHER FORMS OF DYSPNEA (15) Heart failure, systolic, with acute decompensation Code(s): I50.23 - ACUTE ON CHRONIC SYSTOLIC (CONGESTIVE) HEART FAILURE (16) Hx of CABG Code(s): Z95.1 - PRESENCE OF AORTOCORONARY BYPASS GRAFT (17) Ischemic cardiomyopathy Code(s): I25.5 - ISCHEMIC CARDIOMYOPATHY (18) LV dysfunction Code(s): I51.9 - HEART DISEASE, UNSPECIFIED (19) S/P CABG (coronary artery bypass graft) Code(s): Z95.1 - PRESENCE OF AORTOCORONARY BYPASS GRAFT (20) Single implantable cardioverter-defibrillator (ICD) in situ Code(s): Z95.810 - PRESENCE OF AUTOMATIC (IMPLANTABLE) CARDIAC DEFIBRILLATOR (21) Tobacco abuse Code(s): Z72.0 - TOBACCO USE (22) Obstructive sleep apnea of adult Code(s): G47.33 - OBSTRUCTIVE SLEEP APNEA (ADULT) (PEDIATRIC) Assessment/Plan IMP DYSPNEA IMPROVING ACUTE ON CHRONIC CHF HEMOTHORAX S/P CHEST TUBE COPD ON HOME O2 CHRONIC HYPOXEMIC RESPIRATORY FAILURE ASHD S/P CABG S/P CARDIAC ARREST S/P ICD OBSTRUCTIVE UROPATHY URINARY RETENTION ACUTE ON CHRONIC KIDNEY DISEASE POORLY CONTROLLED DM LUNG CA S/P RT GOUT OSAS PLAN MONITOR PLEURAL EFFUSION OUTPUTS WITH INTERMITTENT FLUSHING NEEDED O2 INHALED BRONCHODILATORS GLYCEMIC CONTROL CHECK AM CXR HOMAR GARCIA
[2017-01-18] MEDS: TIOTROPIUM BROMIDE 18 MCG/INH (DEVICE W/ 5 CAPSULES) IH SCH (15:00)
[2017-01-18] MEDS ORDERED: INSULIN DETEMIR 100 UNITS/ML MDV SQ ONE (17:14)
[2017-01-18] MEDS: traZODone HCL 50 MG TABLET (FP) PO SCH (21:46)
[2017-01-19] MEDS: MAG HYDROX/ALH/SMC/DPHA/LIDO 240 ML MOUTHWASH MM SCH ×4 (00:30→17:43)
[2017-01-19] MEDS: oxyCODONE HCL 5 MG TABLET PO PRN ×2 (02:20→09:25)
[2017-01-19] MEDS ORDERED: oxyCODONE HCL 5 MG TABLET PO ONE (02:30)
[2017-01-19] MEDS ORDERED: PT OWN MED DRAWER 7, Y5N ONE (06:32)
[2017-01-19] MEDS: DOCUSATE SODIUM 100 MG CAPSULE (FP) PO SCH ×2 (06:41→14:00)
[2017-01-19] MEDS: HEPARIN NA (PORCINE) 5,000 UNITS/ML 1ML VIAL SQ SCH ×2 (06:41→14:00)
[2017-01-19] MEDS: INSULIN SLIDING SCALE (NOVOLOG) 1 VIAL SQ SCH ×3 (06:46→17:40)
[2017-01-19] MEDS: INSULIN (NOVOLOG MIX 70/30) 100 UNITS/ML MDV SQ SCH ×2 (06:47→17:39)
[2017-01-19] MEDS: INSULIN DETEMIR 100 UNITS/ML MDV SQ SCH ×2 (06:47→17:38)
[2017-01-19 07:42] LABS: MCH 29.8 pg (25.7-33.7); MCHC 33.3 g/dl (32.0-35.9); MEAN CELL VOLUME 89.4 fl (80-96); MEAN PLT VOLUME 8.6 fl (7.5-11.1); PLATELET COUNT 224 K/MM3 (134-434); RDW 14.7 % (11.9-15.9); WHITE BLOOD COUNT 11.5 K/mm3 (4.0-10.0)
[2017-01-19 07:52] LABS: ANION GAP 7 (8-16); CALCIUM 7.8 mg/dL (8.5-10.1); CO2 30 mmol/L (21-32); CREATININE 1.6 mg/dL (0.7-1.3); GLUCOSE,RANDOM 247 mg/dL (74-106); MAGNESIUM 2.2 mg/dL (1.8-2.4); PHOSPHOROUS 3.7 mg/dL (2.5-4.9); SGOT/AST 49 U/L (15-37); SGPT/ALT 67 U/L (12-78)
[2017-01-19 07:55] LABS: ALK PHOS 607 U/L (45-117); BILIRUBIN,TOTAL 0.8 mg/dL (0.2-1.0); TOT PROT 6.4 g/dl (6.4-8.2)
--- NOTE | 2017-01-19 09:20 | PN ---
Progress Note (short form) - Note Progress Note: Thoracic Surgery Progress Note: OK to pull tube today. Serosanguineous drainage, minimal. Don't restart anticoagulation until Sunday. F/U with me in office with CXR. My office number is [phone]. Dr. Barnes covering me starting this afternoon until Sunday.
[2017-01-19] MEDS: TAMSULOSIN HCL 0.4 MG CAP.ER.24H (FP) PO SCH (09:24)
[2017-01-19] MEDS: RANITIDINE HCL 150 MG TABLET (FP) PO SCH (09:25)
[2017-01-19] MEDS: GABAPENTIN 100 MG CAPSULE (FP) PO SCH (09:25)
[2017-01-19] MEDS: CARVEDILOL 6.25 MG TABLET (FP) PO SCH (09:25)
[2017-01-19] MEDS: SENNOSIDES 8.6MG TABLET (FP) PO SCH (09:25)
[2017-01-19] MEDS: TIOTROPIUM BROMIDE 18 MCG/INH (DEVICE W/ 5 CAPSULES) IH SCH (09:26)
[2017-01-19] MEDS: TORSEMIDE 100 MG TABLET PO SCH (09:26)
[2017-01-19] MEDS: POLYETHYLENE GLYCOL 3350 119 GM BTL PO SCH (09:27)
--- NOTE | 2017-01-19 10:33 | PN ---
Progress Note, Physician History of Present Illness: Dyspnea slowly improving, denies orthopnea, comfortable OOB to chair. remains off Xarelto due to bloody pleural effusion. - Current Medication List Current Medications: Active Medications Carvedilol (Coreg -) 6.25 mg PO BID [facility] Last Admin: 01/19/17 09:25 Dose: 6.25 mg Docusate Sodium (Colace -) 100 mg PO TID [facility] Last Admin: 01/19/17 06:41 Dose: 100 mg Gabapentin (Neurontin -) 100 mg PO BID [facility] Last Admin: 01/19/17 09:25 Dose: 100 mg Heparin Sodium (Porcine) (Heparin -) 5,000 unit SQ TID [facility] Last Admin: 01/19/17 06:41 Dose: 5,000 unit Insulin Aspart (Novolog Mix 70/30 Vial) 15 units SQ BIDAC [facility] Last Admin: 01/19/17 06:47 Dose: 15 units Insulin Aspart (Novolog Vial Sliding Scale -) 1 vial SQ ACHS [facility] PRN Reason: Protocol Last Admin: 01/19/17 06:46 Dose: 4 units Insulin Detemir (Levemir Vial) 55 units SQ BIDI [facility] Last Admin: 01/19/17 06:47 Dose: 55 units Lidocaine/Aluminum/Magnesium/Simeth (Magic Mouthwash *Sjr Formula* -) 5 ml MM Q6HPO [facility] Last Admin: 01/19/17 06:41 Dose: 5 ml Oxycodone HCl (Roxicodone -) 5 mg PO Q6H PRN PRN Reason: PAIN Last Admin: 01/19/17 09:25 Dose: 5 mg Polyethylene Glycol (Miralax (For Daily Use) -) 17 gm PO DAILY [facility] Last Admin: 01/19/17 09:27 Dose: 17 grams Ranitidine HCl (Zantac -) 150 mg PO DAILY [facility] Last Admin: 01/19/17 09:25 Dose: 150 mg Senna (Senna -) 2 tab PO DAILY [facility] Last Admin: 01/19/17 09:25 Dose: 2 tab Tamsulosin HCl (Flomax -) 0.4 mg PO DAILY@0830 [facility] Last Admin: 01/19/17 09:24 Dose: 0.4 mg Tiotropium [place] (Spiriva -) 1 puff IH DAILY [facility] Last Admin: 01/19/17 09:26 Dose: 1 puff Torsemide (Demadex -) 100 mg PO BID [facility] Last Admin: 01/19/17 09:26 Dose: 100 mg Trazodone HCl (Desyrel -) 100 mg PO HS [facility] Last Admin: 01/18/17 21:46 Dose: 100 mg - Objective Vital Signs: Vital Signs Temperature 98.2 F 01/19/17 09:34 Pulse Rate 85 01/19/17 09:34 Respiratory Rate 18 01/19/17 09:34 Blood Pressure 103/65 01/19/17 09:34 O2 Sat by Pulse Oximetry (%) 96 01/18/17 22:00 Constitutional: Yes: No Distress, Calm Neck: Yes: Supple Cardiovascular: Yes: Pulse Irregular Respiratory: Yes: Regular, Diminished Gastrointestinal: Yes: Normal Bowel Sounds, Soft, Abdomen, Obese Edema: No Labs: CBC, BMP 01/19/17 06:30 01/19/17 06:30 INR, PTT INR 1.37 (0.82-1.09) H 01/09/17 05:35 - ....Imaging Chest X-ray: Report Reviewed (Left effusion) Problem List - Problems (1) Acute urinary retention Code(s): R33.8 - OTHER RETENTION OF URINE (2) COPD (chronic obstructive pulmonary disease) Code(s): J44.9 - CHRONIC OBSTRUCTIVE PULMONARY DISEASE, UNSPECIFIED Qualifiers: COPD type: chronic bronchitis Chronic bronchitis type: unspecified Qualified Code(s): J42 - Unspecified chronic bronchitis (3) Hyperglycemia Code(s): R73.9 - HYPERGLYCEMIA, UNSPECIFIED (4) Leukocytosis Code(s): D72.829 - ELEVATED WHITE BLOOD CELL COUNT, UNSPECIFIED (5) Morbid obesity Code(s): E66.01 - MORBID (SEVERE) OBESITY DUE TO EXCESS CALORIES (6) Pleural effusion, right Code(s): J90 - PLEURAL EFFUSION, NOT ELSEWHERE CLASSIFIED (7) Renal failure, acute Code(s): N17.9 - ACUTE KIDNEY FAILURE, UNSPECIFIED Qualifiers: Acute renal failure type: unspecified Qualified Code(s): N17.9 - Acute kidney failure, unspecified (8) Acute on chronic systolic and diastolic heart failure, NYHA class 4 Code(s): I50.43 - ACUTE ON CHRONIC COMBINED SYSTOLIC AND DIASTOLIC HRT FAIL (9) Hx of CABG Code(s): Z95.1 - PRESENCE OF AORTOCORONARY BYPASS GRAFT (10) Ischemic cardiomyopathy Code(s): I25.5 - ISCHEMIC CARDIOMYOPATHY (11) LV dysfunction Code(s): I51.9 - HEART DISEASE, UNSPECIFIED (12) Lung nodule Code(s): R91.1 - SOLITARY PULMONARY NODULE (13) Poor compliance Code(s): Z91.19 - PATIENT'S NONCOMPLIANCE W OTH MEDICAL TREATMENT AND REGIMEN (14) S/P CABG (coronary artery bypass graft) Code(s): Z95.1 - PRESENCE OF AORTOCORONARY BYPASS GRAFT (15) Severe left ventricular systolic dysfunction Code(s): I51.9 - HEART DISEASE, UNSPECIFIED (16) Single implantable cardioverter-defibrillator (ICD) in situ Code(s): Z95.810 - PRESENCE OF AUTOMATIC (IMPLANTABLE) CARDIAC DEFIBRILLATOR (17) Type 2 diabetes mellitus with mild nonproliferative diabetic retinopathy without macular edema Code(s): E11.329 - TYPE 2 DIAB W MILD NONPRLF DIABETIC RTNOP W/O * DO NOT USE * Qualifiers: Diabetes mellitus intermediate insulin use: with intermediate use (18) CKD (chronic kidney disease) Code(s): N18.9 - CHRONIC KIDNEY DISEASE, UNSPECIFIED Qualifiers: Chronic kidney disease stage: stage 3 (moderate) Qualified Code(s): N18.3 - Chronic kidney disease, stage 3 (moderate) (19) Diabetes mellitus, insulin dependent (IDDM), uncontrolled Code(s): E10.65 - TYPE 1 DIABETES MELLITUS WITH HYPERGLYCEMIA Qualifiers: Diabetes mellitus complication detail: with polyneuropathy (20) Obstructive sleep apnea of adult Code(s): G47.33 - OBSTRUCTIVE SLEEP APNEA (ADULT) (PEDIATRIC) (21) Bladder outlet obstruction Code(s): N32.0 - BLADDER-NECK OBSTRUCTION (22) Obstructive uropathy Code(s): N13.9 - OBSTRUCTIVE AND REFLUX UROPATHY, UNSPECIFIED (23) Deep venous thrombosis Code(s): I82.409 - ACUTE EMBOLISM AND THOMBOS UNSP DEEP VN UNSP LOWER EXTREMITY Qualifiers: DVT location: lower extremity Affected thrombotic vein of extremity: unspecified vein of extremity Chronicity: acute Laterality: right Qualified Code(s): I82.401 - Acute embolism and thrombosis of unspecified deep veins of right lower extremity (24) Anticoagulant long-term use Code(s): Z79.01 - ASSISTED (CURRENT) USE OF 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 Assessment/Plan 1. Systolic LV dysfunction with chronic class II-III NYHA classification heart failure (ischemic dilated cardiomyopathy with pulmonary HTN), right pleural effusion post chest tube insertion 2. CAD post NH/CABG, angina pectoris 3. History of cardiac arrest post ICD 4. Paroxysmal atrial fibrillation off NOAC's/Xarelto 5. Bladder outlet obstruction with ecoli bacteremia secondary to UTI/presumed prostatitis, resolved 6. MRSA left forearm abscess, resolved 7. HTN 8. DM 9. Hypercholesterolemia 10. History of CVA 11. Chronic hypoxic respiratory failure with home O2 dependent COPD 12. OSAS noncompliant with CPAP 13. Acute on CKD, resolving 14. History of RLE DVT 15. Anemia 16. Morbid obesity PLAN: 1. Continue Demadex 100 bid with close monitoring of renal function and electrolytes 2. Continue Carvedilol 6.25 bid, rechallenge with Diovan 40 qd now that renal function stabilized 3. Would resume Xarelto 15 qd Sunday per thoracic surgery 4. Pig tail catheter to be pulled 5. DVT and GI prophylaxis
--- NOTE | 2017-01-19 10:38 | PROC ---
Procedure Note Procedure: Per Dr. Villalobos's note, it's ok to remove his pig tail catheter. Pitail cath removed without incidient. Xeroform, 2x2, tegaderm occlusive dressing applied. Patient tolerated procedure well. Post-pull CXR ordered STAT.
[2017-01-19] MEDS ORDERED: VALSARTAN 40 MG TABLET (FP) PO SCH (10:45)
--- NOTE | 2017-01-19 12:48 | PN ---
Progress Note, Physician History of Present Illness: pulmonary alert,oob-chair,comfortable,-resp distress - Current Medication List Current Medications: Active Medications Carvedilol (Coreg -) 6.25 mg PO BID [facility] Last Admin: 01/19/17 09:25 Dose: 6.25 mg Docusate Sodium (Colace -) 100 mg PO TID [facility] Last Admin: 01/19/17 06:41 Dose: 100 mg Gabapentin (Neurontin -) 100 mg PO BID [facility] Last Admin: 01/19/17 09:25 Dose: 100 mg Heparin Sodium (Porcine) (Heparin -) 5,000 unit SQ TID [facility] Last Admin: 01/19/17 06:41 Dose: 5,000 unit Insulin Aspart (Novolog Mix 70/30 Vial) 15 units SQ BIDAC [facility] Last Admin: 01/19/17 06:47 Dose: 15 units Insulin Aspart (Novolog Vial Sliding Scale -) 1 vial SQ ACHS [facility] PRN Reason: Protocol Last Admin: 01/19/17 11:45 Dose: 4 units Insulin Detemir (Levemir Vial) 55 units SQ BIDI [facility] Last Admin: 01/19/17 06:47 Dose: 55 units Lidocaine/Aluminum/Magnesium/Simeth (Magic Mouthwash *Sjr Formula* -) 5 ml MM Q6HPO [facility] Last Admin: 01/19/17 11:46 Dose: 5 ml Oxycodone HCl (Roxicodone -) 5 mg PO Q6H PRN PRN Reason: PAIN Last Admin: 01/19/17 09:25 Dose: 5 mg Polyethylene Glycol (Miralax (For Daily Use) -) 17 gm PO DAILY [facility] Last Admin: 01/19/17 09:27 Dose: 17 grams Ranitidine HCl (Zantac -) 150 mg PO DAILY [facility] Last Admin: 01/19/17 09:25 Dose: 150 mg Senna (Senna -) 2 tab PO DAILY [facility] Last Admin: 01/19/17 09:25 Dose: 2 tab Tamsulosin HCl (Flomax -) 0.4 mg PO DAILY@0830 [facility] Last Admin: 01/19/17 09:24 Dose: 0.4 mg Tiotropium [place] (Spiriva -) 1 puff IH DAILY [facility] Last Admin: 01/19/17 09:26 Dose: 1 puff Torsemide (Demadex -) 100 mg PO BID [facility] Last Admin: 01/19/17 09:26 Dose: 100 mg Trazodone HCl (Desyrel -) 100 mg PO HS [facility] Last Admin: 01/18/17 21:46 Dose: 100 mg Valsartan (Diovan -) 40 mg PO DAILY [facility] Last Admin: 01/19/17 11:45 Dose: 40 mg - Objective Vital Signs: Vital Signs Temperature 98.2 F 01/19/17 09:34 Pulse Rate 85 01/19/17 09:34 Respiratory Rate 18 01/19/17 09:34 Blood Pressure 103/65 01/19/17 09:34 O2 Sat by Pulse Oximetry (%) 96 01/19/17 09:00 Constitutional: Yes: Well Nourished, Calm Eyes: Yes: WNL HENT: Yes: WNL Neck: Yes: WNL Cardiovascular: Yes: Regular Rate and Rhythm, S1, S2 Respiratory: Yes: Diminished, Rales (few bibasilar rales) Gastrointestinal: Yes: Normal Bowel Sounds, Soft Extremities: Yes: WNL Edema: No Labs: CBC, BMP 01/19/17 06:30 01/19/17 06:30 INR, PTT INR 1.37 (0.82-1.09) H 01/09/17 05:35 - ....Imaging Chest X-ray: Report Reviewed, Image Reviewed (significant improvement r pleural effusion) Problem List - Problems (1) Lung cancer Code(s): C34.90 - MALIGNANT NEOPLASM OF UNSP PART OF UNSP BRONCHUS OR LUNG (2) Acute urinary retention Code(s): R33.8 - OTHER RETENTION OF URINE (3) Anticoagulant long-term use Code(s): Z79.01 - ALF (CURRENT) USE OF 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 (4) Bladder outlet obstruction Code(s): N32.0 - BLADDER-NECK OBSTRUCTION (5) COPD (chronic obstructive pulmonary disease) Code(s): J44.9 - CHRONIC OBSTRUCTIVE PULMONARY DISEASE, UNSPECIFIED Qualifiers: COPD type: chronic bronchitis Chronic bronchitis type: unspecified Qualified Code(s): J42 - Unspecified chronic bronchitis (6) Hyperglycemia Code(s): R73.9 - HYPERGLYCEMIA, UNSPECIFIED (7) Leukocytosis Code(s): D72.829 - ELEVATED WHITE BLOOD CELL COUNT, UNSPECIFIED (8) Morbid obesity Code(s): E66.01 - MORBID (SEVERE) OBESITY DUE TO EXCESS CALORIES (9) Obstructive uropathy Code(s): N13.9 - OBSTRUCTIVE AND REFLUX UROPATHY, UNSPECIFIED (10) Pleural effusion, right Code(s): J90 - PLEURAL EFFUSION, NOT ELSEWHERE CLASSIFIED (11) CHF (congestive heart failure) Code(s): I50.9 - HEART FAILURE, UNSPECIFIED Qualifiers: (12) Acute on chronic systolic and diastolic heart failure, NYHA class 4 Code(s): I50.43 - ACUTE ON CHRONIC COMBINED SYSTOLIC AND DIASTOLIC HRT FAIL (13) COPD (chronic obstructive pulmonary disease) case management patient Code(s): [id number] - (14) Dyspnea on exertion Code(s): R06.09 - OTHER FORMS OF DYSPNEA (15) Heart failure, systolic, with acute decompensation Code(s): I50.23 - ACUTE ON CHRONIC SYSTOLIC (CONGESTIVE) HEART FAILURE (16) Hx of CABG Code(s): Z95.1 - PRESENCE OF AORTOCORONARY BYPASS GRAFT (17) Ischemic cardiomyopathy Code(s): I25.5 - ISCHEMIC CARDIOMYOPATHY (18) LV dysfunction Code(s): I51.9 - HEART DISEASE, UNSPECIFIED (19) S/P CABG (coronary artery bypass graft) Code(s): Z95.1 - PRESENCE OF AORTOCORONARY BYPASS GRAFT (20) Single implantable cardioverter-defibrillator (ICD) in situ Code(s): Z95.810 - PRESENCE OF AUTOMATIC (IMPLANTABLE) CARDIAC DEFIBRILLATOR (21) Tobacco abuse Code(s): Z72.0 - TOBACCO USE (22) Obstructive sleep apnea of adult Code(s): G47.33 - OBSTRUCTIVE SLEEP APNEA (ADULT) (PEDIATRIC) Assessment/Plan IMP DYSPNEA IMPROVED ACUTE ON CHRONIC CHF HEMOTHORAX S/P CHEST TUBE IMPROVED COPD ON HOME O2 CHRONIC HYPOXEMIC RESPIRATORY FAILURE ASHD S/P CABG S/P CARDIAC ARREST S/P ICD OBSTRUCTIVE UROPATHY URINARY RETENTION ACUTE ON CHRONIC KIDNEY DISEASE POORLY CONTROLLED DM LUNG CA S/P RT GOUT OSAS PLAN O2 INHALED BRONCHODILATORS MONITOR LYTES,RENAL FUNCTION GLYCEMIC CONTROL CONSERVATIVE MANAGEMENT R PLEURAL EFFUSION PT IS A POOR CANDIDATE FOR SURGERY SECONDARY TO SEVERE CARDIAC DISEASE DR BARBOSA Problem List - Problems (1) Lung cancer Code(s): C34.90 - MALIGNANT NEOPLASM OF UNSP PART OF UNSP BRONCHUS OR LUNG (2) Acute urinary retention Code(s): R33.8 - OTHER RETENTION OF URINE (3) Anticoagulant long-term use Code(s): Z79.01 - ALF (CURRENT) USE OF 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 (4) Bladder outlet obstruction Code(s): N32.0 - BLADDER-NECK OBSTRUCTION (5) COPD (chronic obstructive pulmonary disease) Code(s): J44.9 - CHRONIC OBSTRUCTIVE PULMONARY DISEASE, UNSPECIFIED Qualifiers: COPD type: chronic bronchitis Chronic bronchitis type: unspecified Qualified Code(s): J42 - Unspecified chronic bronchitis (6) Hyperglycemia Code(s): R73.9 - HYPERGLYCEMIA, UNSPECIFIED (7) Leukocytosis Code(s): D72.829 - ELEVATED WHITE BLOOD CELL COUNT, UNSPECIFIED (8) Morbid obesity Code(s): E66.01 - MORBID (SEVERE) OBESITY DUE TO EXCESS CALORIES (9) Obstructive uropathy Code(s): N13.9 - OBSTRUCTIVE AND REFLUX UROPATHY, UNSPECIFIED (10) Pleural effusion, right Code(s): J90 - PLEURAL EFFUSION, NOT ELSEWHERE CLASSIFIED (11) CHF (congestive heart failure) Code(s): I50.9 - HEART FAILURE, UNSPECIFIED Qualifiers: (12) Acute on chronic systolic and diastolic heart failure, NYHA class 4 Code(s): I50.43 - ACUTE ON CHRONIC COMBINED SYSTOLIC AND DIASTOLIC HRT FAIL (13) COPD (chronic obstructive pulmonary disease) case management patient Code(s): [id number] - (14) Dyspnea on exertion Code(s): R06.09 - OTHER FORMS OF DYSPNEA (15) Heart failure, systolic, with acute decompensation Code(s): I50.23 - ACUTE ON CHRONIC SYSTOLIC (CONGESTIVE) HEART FAILURE (16) Hx of CABG Code(s): Z95.1 - PRESENCE OF AORTOCORONARY BYPASS GRAFT (17) Ischemic cardiomyopathy Code(s): I25.5 - ISCHEMIC CARDIOMYOPATHY (18) LV dysfunction Code(s): I51.9 - HEART DISEASE, UNSPECIFIED (19) S/P CABG (coronary artery bypass graft) Code(s): Z95.1 - PRESENCE OF AORTOCORONARY BYPASS GRAFT (20) Single implantable cardioverter-defibrillator (ICD) in situ Code(s): Z95.810 - PRESENCE OF AUTOMATIC (IMPLANTABLE) CARDIAC DEFIBRILLATOR (21) Tobacco abuse Code(s): Z72.0 - TOBACCO USE (22) Obstructive sleep apnea of adult Code(s): G47.33 - OBSTRUCTIVE SLEEP APNEA (ADULT) (PEDIATRIC)
--- NOTE | 2017-01-19 13:59 | PN ---
Teaching Attending Note Name of Resident: Juan José Carbajal ATTENDING PHYSICIAN STATEMENT Time of evaluation: 9:20 AM I saw and evaluated the patient. I reviewed the resident's note and discussed the case with the resident. I agree with the resident's findings and plan as documented. SUBJECTIVE: Patient seen and examined, Breathing continues to improve, agreable to SNF today. OBJECTIVE: Vital Signs Period Temp Pulse Resp BP Sys/Mcconnell Pulse Ox Last 24 Hr 97.8 F-98.5 F 70-85 18-20 103-141/47-65 96-96 Intake & Output 01/16/17 01/17/17 01/18/17 01/19/17 23:59 23:59 23:59 23:59 Intake Total 200 1030 900 Output Total 0 0 140 20 Balance 200 1030 760 -20 Weight 234 lb 2 oz 235 lb 230 lb 4 oz General: sitting in chair in no acute distress Chest: improved air entry, few basilar rales Extremities: improving pedal edema Home Medication List Medication Instructions Recorded Confirmed Type Calcium Carbonate 600 mg PO DAILY 09/05/16 01/08/17 History Carvedilol 6.25 mg PO BID 09/05/16 01/08/17 History Cholecalciferol (Vitamin D3) 1,000 unit MC DAILY 09/05/16 01/08/17 History [Cholecalciferol] Colchicine 0.6 mg PO DAILY 09/05/16 01/08/17 History Docusate Sodium 100 mg PO TID 09/05/16 01/08/17 History Famotidine/Ca Carb/Mag Hydrox 1 each PO DAILY 09/05/16 01/08/17 History [Pepcid Complete Tablet Chew] Gabapentin [Neurontin -] 100 mg PO BID 09/05/16 01/08/17 History Insulin Regular, Human [Humulin R 30 unit SQ DAILY 09/05/16 01/08/17 History U-500 Kwikpen] Liraglutide [Victoza -] 1.8 mg SQ DAILY@0700 09/05/16 01/08/17 History Oxycodone HCl/Acetaminophen 1 tab PO Q6H 09/05/16 01/08/17 History [Percocet 5-325 mg Tablet] Sennosides [Senno] 2 tab PO DAILY 09/05/16 01/08/17 History Tamsulosin HCl 0.4 mg PO DAILY 09/05/16 01/08/17 History Torsemide 100 mg PO BID 09/05/16 01/08/17 History Chantix 1 tab PO BID 12/04/16 01/08/17 History Tiotropium [place] [Spiriva] 1 inh PO DAILY 01/08/17 01/08/17 History Trazodone HCl [Desyrel -] 100 mg PO HS 01/08/17 01/08/17 History Active Medications Generic Name Dose Route Start Last Admin Trade Name Michaelle PRN Reason Stop Dose Admin Carvedilol 6.25 mg 01/08/17 21:52 01/19/17 09:25 Coreg - PO 6.25 mg BID [facility] Administration Docusate Sodium 100 mg 01/08/17 22:03 01/19/17 06:41 Colace - PO 100 mg TID [facility] Administration Gabapentin 100 mg 01/09/17 22:00 01/19/17 09:25 Neurontin - PO 100 mg BID [facility] Administration Heparin Sodium (Porcine) 5,000 unit 01/17/17 22:00 01/19/17 06:41 Heparin - SQ 5,000 unit TID [facility] Administration Insulin Aspart 15 units 01/09/17 16:30 01/19/17 06:47 Novolog Mix 70/30 Vial SQ 15 units BIDAC [facility] Administration Insulin Aspart 1 vial 01/09/17 16:30 01/19/17 11:45 Novolog Vial Sliding Scale - SQ 4 units ACHS [facility] Administration Protocol Insulin Detemir 55 units 01/19/17 07:00 01/19/17 06:47 Levemir Vial SQ 55 units BIDI [facility] Administration Lidocaine/Aluminum/Magnesium/Simeth 5 ml 01/15/17 21:00 01/19/17 11:46 Magic Mouthwash *Sjr Formula* - MM 5 ml Q6HPO [facility] Administration Oxycodone HCl 5 mg 01/10/17 14:03 01/19/17 09:25 Roxicodone - PO 5 mg Q6H PRN Administration PAIN Polyethylene Glycol 17 gm 01/14/17 11:45 01/19/17 09:27 Miralax (For Daily Use) - PO 17 grams DAILY [facility] Administration Ranitidine HCl 150 mg 01/10/17 10:00 01/19/17 09:25 Zantac - PO 150 mg DAILY [facility] Administration Senna 2 tab 01/09/17 10:00 01/19/17 09:25 Senna - PO 2 tab DAILY [facility] Administration Tamsulosin HCl 0.4 mg 01/10/17 08:30 01/19/17 09:24 Flomax - PO 0.4 mg DAILY@0830 [facility] Administration Tiotropium [place] 1 puff 01/10/17 10:00 01/19/17 09:26 Spiriva - IH 1 puff DAILY [facility] Administration Torsemide 100 mg 01/14/17 10:00 01/19/17 09:26 Demadex - PO 100 mg BID [facility] Administration Trazodone HCl 100 mg 01/08/17 22:00 01/18/17 21:46 Desyrel - PO 100 mg HS [facility] Administration Valsartan 40 mg 01/19/17 10:45 01/19/17 11:45 Diovan - PO 40 mg DAILY [facility] Administration Laboratory Results - last 24 hr 01/18/17 01/18/17 01/19/17 17:08 21:40 06:30 WBC 11.5 H RBC 3.74 L Hgb 11.1 L Hct 33.4 L MCV 89.4 MCH 29.8 MCHC 33.3 RDW 14.7 Plt Count 224 MPV 8.6 Sodium Potassium Chloride Carbon Dioxide Anion Gap BUN Creatinine Creat Clearance w eGFR POC Glucometer 334 335 Random Glucose Calcium Phosphorus Magnesium Total Bilirubin AST ALT Alkaline Phosphatase Total Protein Albumin 01/19/17 01/19/17 01/19/17 06:30 06:44 11:44 WBC RBC Hgb Hct MCV MCH MCHC RDW Plt Count MPV Sodium 135 L Potassium 3.8 Chloride 98 Carbon Dioxide 30 Anion Gap 7 L BUN 54 H Creatinine 1.6 H Creat Clearance w eGFR 44.16 POC Glucometer 245 210 Random Glucose 247 H D Calcium 7.8 L Phosphorus 3.7 D Magnesium 2.2 Total Bilirubin 0.8 D AST 49 H D ALT 67 Alkaline Phosphatase 607 H Total Protein 6.4 Albumin 2.0 L Microbiology 01/17/17 11:00 Nares - Right Nares MRSA Screen - Final NO MRSA ISOLATED 01/17/17 11:00 Nares - Left Nares MRSA Screen - Final NO MRSA ISOLATED 01/10/17 11:30 Pleural Fluid AFB Smear Concentration - Final 01/10/17 11:30 Pleural Fluid Mycobacterial Culture - Preliminary 01/08/17 04:18 Blood - Peripheral Venous Blood Culture - Final NO GROWTH AFTER 5 DAYS INCUBATION 01/08/17 04:33 Blood - Peripheral Venous Blood Culture - Final NO GROWTH AFTER 5 DAYS INCUBATION 01/10/17 11:30 Pleural Fluid Gram Stain - Final 01/10/17 11:30 Pleural Fluid Body Fluid Culture - Final NO GROWTH OF AEROBIC ORGANISMS AFTER 48 HOURS INCUBATION 01/10/17 11:30 Pleural Fluid Anaerobic Culture - Final NO ANAEROBES WERE ISOLATED 01/09/17 18:00 Nares - Mrsa Screen - Right MRSA Screen - Final NO MRSA ISOLATED 01/10/17 11:30 Pleural Fluid HEMANT Preparation - Preliminary 01/10/17 11:30 Pleural Fluid Fungal Culture - Preliminary 01/08/17 11:50 Nares - Mrsa Screen - Left MRSA Screen - Final NO MRSA ISOLATED 01/08/17 11:50 Urine - Urine - Catheterized Urine Culture - Final NO GROWTH OBTAINED 01/08/17 11:50 Urine - Urine - Catheterized Legionella Antigen - Final 01/08/17 11:50 Urine - Urine - Catheterized Streptococcus pneumoniae Antigen (M - Final ASSESSMENT AND PLAN: 61yo M wtih PMH HTN, HLD, idiopathic dilated cardiomyopathy, systolic heart failure s/p PPM/AICD, CAD s/p CABG x4, h/o DVT on Xarelto, COPD on home O2, CKD , IDDM, lung cancer s/p radiation (2017), prostatitis, MRSA abscess left forearm , hepatitis B presented to the ER with difficulty urinating and generalized weakness -Urinary retention -MARCIAL on CKD -Sepsis due to suspected pNA vs complicated pleural effusion/hemothorax -Sustained Vtach/NSVT -Acute blood loss anemia, from hemothorax -Acute on chronic systolic heart failure exacerbation -Ischemic cardiomyopathy -Constipation -COPD on home oxygen -IDDM -DVT -PAF,high CHADSvasc2 score Plan: CT surgery input noted. Chest tube removed with no concerns. Hold xarelto till Sunday. Outpatient CXR and follow up with Dr. Roa in 1 week. . Volume status continues to improve. Continue Torsemide. Daily weights outpatient. Resume home diabetic regimen. d/c to SNF today. Plan discussed with patient in detail, all questions answered.
--- NOTE | 2017-01-19 14:34 | DS ---
Physical Exam: SUBJECTIVE: Patient seen and examined. Doing fine. No SOB. No CP OBJECTIVE: Vital Signs Period Temp Pulse Resp BP Sys/Mcconnell Pulse Ox Last 24 Hr 97.8 F-98.5 F 70-85 18-20 103-141/47-65 96-96 PHYSICAL EXAM GEN: AAOx3, not in acute distress HEENT: PERRLA, EOMi CV: S1, S2, RRR LUNG: Bilateral crackles ABD: Soft, NT, ND, obese MSK: Venous stasis changes on both legs, no edema Laboratory Last Values WBC 11.5 K/mm3 (4.0-10.0) H 01/19/17 06:30 RBC 3.74 M/mm3 (4.00-5.60) L 01/19/17 06:30 Hgb 11.1 GM/dL (11.7-16.9) L 01/19/17 06:30 Hct 33.4 % (35.4-49) L 01/19/17 06:30 MCV 89.4 fl (80-96) 01/19/17 06:30 MCH 29.8 pg (25.7-33.7) 01/19/17 06:30 MCHC 33.3 g/dl (32.0-35.9) 01/19/17 06:30 RDW 14.7 % (11.9-15.9) 01/19/17 06:30 Plt Count 224 K/MM3 (134-434) 01/19/17 06:30 MPV 8.6 fl (7.5-11.1) 01/19/17 06:30 Total Counted 100 01/18/17 05:35 Neutrophils % No Result Required. 01/18/17 05:35 Neutrophils % (Manual) 81.0 % (42.8-82.8) 01/18/17 05:35 Band Neutrophils % 2.0 % 01/18/17 05:35 Lymphocytes % No Result Required. 01/18/17 05:35 Lymphocytes % (Manual) 6.0 % (8-40) L 01/18/17 05:35 Monocytes % 12.4 % (3.8-10.2) H 01/14/17 06:00 Monocytes % (Manual) 7 % (3.8-10.2) 01/18/17 05:35 Eosinophils % 2.5 % (0-4.5) 01/14/17 06:00 Eosinophils % (Manual) 3.0 % (0-4.5) D 01/18/17 05:35 Basophils % 0.4 % (0-2.0) 01/14/17 06:00 Myelocytes % (Man) 2 % (0-2) 01/16/17 07:20 Metamyelocytes 1 % (0-2) 01/18/17 05:35 Platelet Estimate Adequate 01/18/17 05:35 PT with INR 15.50 SEC (9.98-11.88) H 01/09/17 05:35 INR 1.37 (0.82-1.09) H 01/09/17 05:35 PTT (Actin FS) 23.8 SECONDS (26.9-34.4) L D 01/09/17 05:35 Sodium 135 mmol/L (136-145) L 01/19/17 06:30 Potassium 3.8 mmol/L (3.5-5.1) 01/19/17 06:30 Chloride 98 mmol/L (98-107) 01/19/17 06:30 Carbon Dioxide 30 mmol/L (21-32) 01/19/17 06:30 Anion Gap 7 (8-16) L 01/19/17 06:30 BUN 54 mg/dL (7-18) H 01/19/17 06:30 Creatinine 1.6 mg/dL (0.7-1.3) H 01/19/17 06:30 Creat Clearance w eGFR 44.16 (>60) 01/19/17 06:30 POC Glucometer 210 UNITS (80-120) 01/19/17 11:44 Random Glucose 247 mg/dL (74-106) H D 01/19/17 06:30 Hemoglobin A1c % 14.2 % (4.8-6.0) H D 01/08/17 11:50 Lactic Acid 1.3 mmol/L (0.4-2.0) 01/08/17 10:48 Calcium 7.8 mg/dL (8.5-10.1) L 01/19/17 06:30 Phosphorus 3.7 mg/dL (2.5-4.9) D 01/19/17 06:30 Magnesium 2.2 mg/dL (1.8-2.4) 12/08/17 06:30 Total Bilirubin 0.8 mg/dL (0.2-1.0) D 01/19/17 06:30 AST 49 U/L (15-37) H D 01/19/17 06:30 ALT 67 U/L (12-78) 01/19/17 06:30 Alkaline Phosphatase 607 U/L (45-117) H 01/19/17 06:30 Creatine Kinase 61 IU/L (39-308) 01/08/17 04:40 Troponin I < 0.02 ng/ml (0.00-0.05) D 01/08/17 04:40 B-Natriuretic Peptide 4794.85 pg/ml (5-125) H 01/08/17 04:40 Total Protein 6.4 g/dl (6.4-8.2) 01/19/17 06:30 Albumin 2.0 g/dl (3.4-5.0) L 01/19/17 06:30 Urine Color Yellow 01/08/17 12:00 Urine Appearance Slcloudy 01/08/17 12:00 Urine pH 5.0 (5.0-8.0) 01/08/17 12:00 Ur Specific [place] 1.013 (1.001-1.035) 01/08/17 12:00 Urine Protein Negative (NEGATIVE) 01/08/17 12:00 Urine Glucose (UA) 2+ (NEGATIVE) H 01/08/17 12:00 Urine Ketones Negative (NEGATIVE) 01/08/17 12:00 Urine Blood Negative (NEGATIVE) 01/08/17 12:00 Urine Nitrite Negative (NEGATIVE) 01/08/17 12:00 Urine Bilirubin Negative (NEGATIVE) 01/08/17 12:00 Urine Urobilinogen Negative mg/dL (0.2-1.0) 01/08/17 12:00 Ur Leukocyte Esterase Negative (NEGATIVE) 01/08/17 12:00 Pleural Fluid Source Pleural 01/10/17 11:30 Pleural Color Bloody 01/10/17 11:30 Pleural Appearance Cloudy 01/10/17 11:30 Pleural pH 7.5 01/10/17 11:30 Pleural WBC 4,045 /mm3 01/10/17 11:30 Pleural RBC 435,148 /mm3 01/10/17 11:30 Pleural Neutrophils 72 % 01/10/17 11:30 Pleural Lymphocytes 21 % 01/10/17 11:30 Pleural Monocytes 5 % 01/10/17 11:30 Pleural Eosinophils 2 % 01/10/17 11:30 Pleural Diff Comment Y 01/10/17 11:30 Pleural Chloride TNP 01/10/17 11:30 Pleural Total Protein 5.427 01/10/17 11:30 Pleural Albumin 2 g/dL 01/10/17 11:30 Pleural LDH 571.98 01/10/17 11:30 Pleural Glucose 81.006 01/10/17 11:30 Pleural Amylase 17.556 01/10/17 11:30 Pleural Cholesterol < 50 MG/DL 01/10/17 11:30 Pleural Triglycerides 55 MG.DL 01/10/17 11:30 Random Vancomycin 12.213 ug/ml 01/10/17 08:45 Blood Type A POSITIVE 01/11/17 06:30 Antibody Screen Negative 01/11/17 06:30 HOSPITAL COURSE: Date of Admission:01/08/17 Date of Discharge: 01/19/17 Mr. Holley is a 61yo male with a PMH significant for HTN, HLD, idiopathic dilated cardiomyopathy, systolic heart failure s/p PPM/AICD, CAD s/p CABG x4, h/o DVT on Xarelto, COPD on home O2, CKD, IDDM, lung cancer s/p radiation (2017), prostatitis, MRSA abscess left forearm, hepatitis B. He presented to the ED with weakness. He was found to have a R sided loculated effusion. An ultrasound guided thoracentesis revealed brinda blood, and the patient was diagnosed with R sided hemothorax. He was on Xarelto for a prior DVT and Atrial Fibrillation, but had no history of trauma to the area. We stopped the Xarelto and the patient had a chest tube placed by Dr Villalobos (Cardiothoracic surgery) on 01/11 , which drained well. There looked to be a remaining loculated component on the R side on Chest X-Ray, and VATS was in consideration. However, numerous disciplines agreed that the patient was too high risk for a VATS procedure, and conservative management would be appropriate. The chest-tube continued to drain up till discharge, and the patient's lung function improved. Daily chest X-rays showed objective improvement. The chest-tube was removed just prior to discharge , and the patient will followup with Dr. Villalobos as an outpatient. Xarelto will be restarted in 3 days. For his Ischemic Cardiomyopathy, the patient was continued on his Torsemide 100 BID, and was given PRN IV Lasix pushes which he tolerated well. He also initially presented with urinary retention with Acute Kidney Injury, which resolved with cade catheter placement. Cade catheter was removed, the patient continued to void well. Physical therapy saw the patient, and he was only able to walk about 5 feet. He will be discharged to a subacute rehabilitation facility for physical rehabilitation. The patient and are aware of the hospital course and agree with the plan Minutes to complete discharge: 45 Discharge Summary Reason For Visit: ACUTE RENAL FAILURE,CONGESTIVE HEART FAILURE Current Active Problems Acute urinary retention (Acute) Anticoagulant long-term use (Acute) Benign localized hyperplasia of prostate with urinary obstruction (Acute) Bladder outlet obstruction (Acute) COPD (chronic obstructive pulmonary disease) (Acute) Hyperglycemia (Acute) Hyponatremia (Acute) Leukocytosis (Acute) Lung cancer (Acute) MRSA (methicillin resistant Staphylococcus aureus) colonization (Acute) Morbid obesity (Acute) Obstructive uropathy (Acute) Pleural effusion, right (Acute) Renal failure, acute (Acute) Type 2 diabetes mellitus with complications (Acute) CHF (congestive heart failure) (Chronic) Condition: Improved - Instructions Diet, Activity, Other Instructions: RECOMMENDATIONS: - You were admitted because you had a blood clot in your Right lung, which improved with drainage - You are going to a [facility] for physical therapy - We want you to stop taking your anticoagulant Xarelto until Sunday. - For your wound, keep the occlusive dressing on. It is ok to shower with the dressing on. It should be removed on 01/22 - We recommend you comply with your medication regimen, including your home oxygen - We recommend you stop smoking, as it is detrimental to your health - Please obtain a Basic Metabolic Panel in 1 week - Continue checking your blood sugars ACHS ( before meals and at bed time) - YOu need daily weights. If you have a weight gain of more than 3 pounds in 2 days please let your primary care doctor know - If you have any severe chest pain, shortness of breath, please return to the ER MEDICATION CHANGES: - STOP Xarelto until Sunday - Continue all your other medications. FOLLOWUPS: - Dr. Villalobos (Cardiothoracic Surgeon) in 1 week. You will need a chest X- ray before you meet with him. - Dr. Sena (Primary Care Doctor) in 2 weeks - Dr. Castillo (Grants Director) in 2 weeks -Chest xray in 1 week before follow up with Dr. Villalobos -BMP (Basic Metabolic Panel ) in 1 week with your doctor -Follow up pleural fluid cytology results with Dr. Castillo in 1-2 weeks Referrals: Moreno Castillo MD [Staff Physician] - 2 Weeks Medardo Sena PA [Primary Care Provider] - 2 Weeks Jeremiah Villalobos MD [Staff Physician] - 1 Week Disposition: [facility] - Home Medications Comprehensive Discharge Medication List: Ambulatory Orders Calcium Carbonate 600 mg PO DAILY 09/05/16 Carvedilol 6.25 mg PO BID 09/05/16 Cholecalciferol (Vitamin D3) [Cholecalciferol] 1,000 unit MC DAILY 09/05/16 Colchicine 0.6 mg PO DAILY 09/05/16 Docusate Sodium 100 mg PO TID 09/05/16 Famotidine/Ca Carb/Mag Hydrox [Pepcid Complete Tablet Chew] 1 each PO DAILY Gabapentin [Neurontin -] 100 mg PO BID 09/05/16 Insulin Regular, Human [Humulin R U-500 Kwikpen] 30 unit SQ DAILY 09/05/16 Liraglutide [Victoza -] 1.8 mg SQ DAILY@0700 09/05/16 Oxycodone HCl/Acetaminophen [Percocet 5-325 mg Tablet] 1 tab PO Q6H 09/05/16 Sennosides [Senno] 2 tab PO DAILY 09/05/16 Tamsulosin HCl 0.4 mg PO DAILY 09/05/16 Torsemide 100 mg PO BID 09/05/16 Ranitidine [Zantac -] 150 mg PO DAILY #0 tablet 09/08/16 Chantix 1 tab PO BID 12/04/16 Tiotropium [place] [Spiriva] 1 inh PO DAILY 01/08/17 Trazodone HCl [Desyrel -] 100 mg PO HS 01/08/17 This patient is new to me today: No Emergency Visit: No Critical Care patient: No - Discharge Referral Referred to [facility] No
[2017-01-19 16:22] VITALS: BP 88/52; PULSE 70; TEMP 98.5
[2017-01-19] MEDS ORDERED: INSULIN (NOVOLOG MIX 70/30) 100 UNITS/ML MDV SQ ONE (18:17)
[2017-01-19] MEDS ORDERED: INSULIN (NOVOLOG) ASPART 100 UNITS/ML 10ML VIAL ONE (18:17)
[2017-01-19] MEDS ORDERED: INSULIN DETEMIR 100 UNITS/ML MDV SQ ONE (18:18)
== END 2017-01-19 18:20 | DRG 460 ==
LOC: JER 03:33 → JERBED 05:45 → J6S 12:13 → OBSVTOIN 18:38 → J4S 01-09 01:57
PROVIDERS: ADMIT Internal Medicine; ATTEND Hospitalist
PROC: 3E0F7GC Introduction of Other Therapeutic Substance into Respiratory Tract, Via Natural or Artificial Opening (ICD-10-PCS; principal; 2017-01-08)
PROC: 0W9930Z Drainage of Right Pleural Cavity with Drainage Device, Percutaneous Approach (ICD-10-PCS; 2017-01-11)
PROC: 0WP9X3Z Removal of Infusion Device from Right Pleural Cavity, External Approach (ICD-10-PCS; 2017-01-19)
DX: N17.9 Acute kidney failure, unspecified (principal); I13.0 Hypertensive heart and chronic kidney disease with heart failure and stage 1 through stage 4 chronic kidney disease, or unspecified chronic kidney disease; E11.22 Type 2 diabetes mellitus with diabetic chronic kidney disease; N18.9 Chronic kidney disease, unspecified; I50.23 Acute on chronic systolic (congestive) heart failure; D62 Acute posthemorrhagic anemia; I25.5 Ischemic cardiomyopathy; K59.00 Constipation, unspecified; I47.1 Supraventricular tachycardia; Z95.1 Presence of aortocoronary bypass graft; I48.0 Paroxysmal atrial fibrillation; Z95.0 Presence of cardiac pacemaker; J90 Pleural effusion, not elsewhere classified; C34.90 Malignant neoplasm of unspecified part of unspecified bronchus or lung; N32.0 Bladder-neck obstruction; R33.8 Other retention of urine; Z79.01 Long term (current) use of anticoagulants; J44.9 Chronic obstructive pulmonary disease, unspecified; N13.9 Obstructive and reflux uropathy, unspecified; D72.829 Elevated white blood cell count, unspecified; E66.01 Morbid (severe) obesity due to excess calories; Z68.36 Body mass index [BMI] 36.0-36.9, adult; G47.33 Obstructive sleep apnea (adult) (pediatric); J94.2 Hemothorax; J96.11 Chronic respiratory failure with hypoxia; E11.65 Type 2 diabetes mellitus with hyperglycemia; M10.9 Gout, unspecified; I25.119 Atherosclerotic heart disease of native coronary artery with unspecified angina pectoris; Z99.81 Dependence on supplemental oxygen; E11.40 Type 2 diabetes mellitus with diabetic neuropathy, unspecified; N40.0 Benign prostatic hyperplasia without lower urinary tract symptoms; L02.414 Cutaneous abscess of left upper limb; Z72.0 Tobacco use; I27.20 Pulmonary hypertension, unspecified; E87.1 Hypo-osmolality and hyponatremia; A41.9 Sepsis, unspecified organism; J18.9 Pneumonia, unspecified organism
CPT/HCPCS: 32557; 36415; 71010-TC; 71250-TC; 76942; 80048; 80053; 81003; 82042; 82150; 82550; 82945; 82947; 83036; 83605; 83615; 83735; 83880; 83986; 84100; 84157; 84311; 84478; 84484; 85025; 85027; 85610; 85730; 86850; 86900; 86901; 87040; 87070; 87075; 87081; 87086; 87102; 87116; 87205; 87206; 87210; 87899; 88108; 88305-TC; 89051; 93005; 93010; 97116-GP; 97161-GP; 99284-25; C1729; C1769; G0378; G0480; J1644